=== PATIENT | female | born 1935 | race Caucasian/White ===

== ENCOUNTER 2016-07-20 17:09 | Inpatient (IN) | payer MEDICAID ==
[2016-07-20 17:11] VITALS: BMI 30.7
[2016-07-20] MEDS ORDERED: Sodium Chloride 0.9% 1,000 ML IV STA (17:43)
--- NOTE | 2016-07-20 17:44 | C.PDOC ---
History Of Present Illness 80 yr old female with PMHx of HTN and arthritis, presents to the ER accompanied by family for diarrhea 4x a day, vomiting 4x and abdominal pain for the past 4 days. Family member states the patient has been defecating on her self for the past 4 days. Reports patient was in [place] for the last 5 months, recently came back 3 weeks ago and has been sick persistently. Also notes the patient lost her vision recently and has been to see an eye doctor and next appointment is in 2 weeks. Patient has history of glaucoma and cataracts. Denies fever, chest pain, SOB or rash. Time Seen by Provider: 07/20/16 17:31 Chief Complaint (Nursing): Abdominal Pain History Per: Family (Family members) History/Exam Limitations: no limitations Onset/Duration Of Symptoms: Days (4) Current Symptoms Are (Timing): Still Present Location Of Pain/Discomfort: Diffuse Past Medical History Reviewed: Historical Data, Nursing Documentation, Vital Signs Vital Signs: Last Vital Signs Temp 98.2 F 07/21/16 00:03 Pulse 71 07/21/16 00:03 Resp 20 07/21/16 00:03 BP 165/71 H 07/21/16 00:03 Pulse Ox 98 07/21/16 00:03 - Medical History PMH: Arthritis, HTN, Peripheral Edema Family History: States: No Known Family Hx - Social History Hx Alcohol Use: No Hx Substance Use: No - Immunization History Hx Tetanus Toxoid Vaccination: No Hx Influenza Vaccination: No Hx Pneumococcal Vaccination: No Review Of Systems Except As Marked, All Systems Reviewed And Found Negative. Constitutional: Negative for: Fever Cardiovascular: Negative for: Chest Pain Respiratory: Negative for: Shortness of Breath Gastrointestinal: Positive for: Vomiting, Abdominal Pain, Diarrhea Genitourinary: Positive for: Incontinence (Bowel) Skin: Negative for: Rash Physical Exam - Physical Exam Additional Physical Exam Comments: Constitutional: No acute distress. Head: Normocephalic. Atraumatic. Eyes: PERRL. ENT: Moist mucous membranes. Neck: Supple. Cardiovascular: Regular rate. Murmur. Radial pulses 2+ bilaterally. Chest: No tenderness. Respiratory: Clear to auscultation bilaterally. GI: Soft. Diffuse tenderness. No rebound. No guarding. Back: No CVA tenderness. Musculoskeletal: No tenderness or swelling of extremities. Skin: No rash. Neurologic: Alert and oriented. No focal deficit. ED Course And Treatment - Laboratory Results Result Diagrams: 07/20/16 18:00 07/20/16 18:00 O2 Sat by Pulse Oximetry: 95 (RA) Pulse Ox Interpretation: Normal - CT Scan/US CT Abd/Pel w/o contrast Other Rad Studies (CT/US): Interpreted By Me, Read By Radiologist CT/US Interpretation: EXAM: CT Abdomen and Pelvis Without Intravenous Contrast. CLINICAL HISTORY: 80 years old, female; Pain and signs and symptoms ; Vomiting; Abdominal pain; Generalized;. Additional info: Abd pain, vomiting diarrhea. TECHNIQUE: Axial computed tomography images of the abdomen and pelvis without intravenous contrast. This. CT exam was performed using one or more of the following dose reduction techniques: automated. exposure control, adjustment of the mA and/or kV according to patient size, and/or use of iterative. reconstruction technique. Coronal and sagittal reformatted images were created and reviewed. EXAM DATE/TIME: Exam ordered 07/20/2016 6:32 PM. COMPARISON: No relevant prior studies available. FINDINGS: Lower thorax: Hypoventilatory changes are seen at both lung bases. There is a small amount of. pericardial fluid/thickening. The heart is enlarged. There is a small hiatal hernia. ABDOMEN: Liver: Unremarkable. Gallbladder and bile ducts: Unremarkable. No calcified stones. No ductal dilation. Pancreas: Unremarkable. No ductal dilation. Spleen: Unremarkable. No splenomegaly. Adrenals: Unremarkable. No mass. Kidneys and ureters: Unremarkable. No obstructing stones. No hydronephrosis. Stomach and bowel: There are scattered colonic diverticula. No obstruction. No mucosal. thickening. Appendix: No findings to suggest acute appendicitis. PELVIS: Bladder: Unremarkable. No stones. Reproductive: Unremarkable as visualized. ABDOMEN and PELVIS: Intraperitoneal space: Unremarkable. No free air. No significant fluid collection. Bones/joints : Degenerative changes are noted of the lumbar spine. There is a grade 1. spondylolisthesis at L2-3 with 4 mm of anterolisthesis of L3 with respect to L2. No acute fracture. No. dislocation. Soft tissues: There is hazy density noted within the mesenteric fat. Calcification is noted within the. subcutaneous fat of the right buttock superiorly. Vasculature: Unremarkable. No abdominal aortic aneurysm. Lymph nodes: Unremarkable. No enlarged lymph nodes. Other findings: There is anasarca. IMPRESSION: 1. No acute findings. 2. Hypoventilatory changes at the lung bases. 3. The heart is moderately enlarged and there is a small amount of paracardial fluid/thickening. 4.. Hiatal hernia. 5. Nonspecific hazy change noted within the mesenteric fat with mild anasarca. 6. Scattered colonic diverticula Medical Decision Making Medical Decision Making: PLAN: * CT - Abd & Pelvis * CXR * Lipase * CBC * Urinalysis * Zofran IVP * Sodium Chloride IV CXR: No acute disease. Patient with newly found thrombocytopenia as well as acute renal insufficiency likely from dehydration. Dr. Smith recommends Dr. Mclaughlin for admission for further evaluation. Dr. Mclaughlin accepts to his service. Disposition - Disposition Disposition: HOSPITALIZED Disposition Time: 19:27 Condition: FAIR - Clinical Impression Clinical Impression: Dehydration, Thrombocytopenia - Scribe Statement The provider has reviewed the documentation as recorded by the Cristinoibyoselin Segovia Provider Attestation: All medical record entries made by the Cristinoibyoselin were at my direction and personally dictated by me. I have reviewed the chart and agree that the record accurately reflects my personal performance of the history, physical exam, medical decision making, and the department course for this patient. I have also personally directed, reviewed, and agree with the discharge instructions and disposition.
[2016-07-20] MEDS ORDERED: Sodium Chloride 0.9% 1,000 ML ONE (18:09)
[2016-07-20 18:11] LABS: BASO % 0.5 % (0.0-2.0); EOS # 0.1 K/uL (0.0-0.7); HEMOGLOBIN 12.3 g/dL (11.0-16.0); LYMPH # 0.7 K/uL (1.0-4.3); LYMPH % 9.4 % (20.0-40.0); MEAN CORPUSCULAR HEMOGLOBIN 31.7 pg (27.0-31.0); MEAN CORPUSCULAR HGB CONC 32.7 g/dL (33.0-37.0); MEAN PLATELET VOLUME 9.1 fL (7.2-11.7); MONO # 0.8 K/uL (0.0-0.8); MONO % 10.8 % (0.0-10.0); NEUT # 5.4 K/uL (1.8-7.0); NEUT % 77.3 % (50.0-75.0); NRBC % 0.1 % (0.0-2.0); RBC 3.89 Mil/uL (3.80-5.20)
[2016-07-20 18:22] LABS: ALBUMIN 3.6 g/dL (3.5-5.0)
[2016-07-20 18:23] LABS: PLATELET COUNT 58 K/uL (130-400)
[2016-07-20 18:25] LABS: ALB/GLOB RATIO 0.9 (1.0-2.1); CALCIUM 9.3 mg/dl (8.6-10.4)
[2016-07-20 18:36] LABS: SQUAMOUS EPITHIAL < 1 /hpf (0-5); URINE BACTERIA RARE (<OCC); URINE BILIRUBIN NEGATIVE (NEGATIVE); URINE BLOOD 2+ (NEGATIVE); URINE CLARITY Clear (Clear); URINE COLOR Yellow (YELLOW); URINE GLUCOSE (UA) NORMAL (Normal); URINE LEUKOCYTE ESTERASE NEG Leu/uL (Negative); URINE NITRATE NEGATIVE (NEGATIVE); URINE PROTEIN 2+ mg/dL (NEGATIVE); URINE UROBILINOGEN NORMAL mg/dL (0.2-1.0)
[2016-07-20 19:11] LABS: EOSINOPHIL 2 % (0-4); LYMPHOCYTE 9 % (20-40); MONOCYTE 5 % (0-10); NEUTROPHIL 84 % (50-75); PLATELET ESTIMATE DECREASED (NORMAL); TOTAL CELLS COUNTED 100
[2016-07-20 19:13] LABS: ANISOCYTOSIS SLIGHT
--- NOTE | 2016-07-20 19:24 | CT ---
EXAM: CT Abdomen and Pelvis Without Intravenous Contrast CLINICAL HISTORY: 80 years old, female; Pain and signs and symptoms; Vomiting; Abdominal pain; Generalized; Additional info: Abd pain, vomiting diarrhea TECHNIQUE: Axial computed tomography images of the abdomen and pelvis without intravenous contrast. This CT exam was performed using one or more of the following dose reduction techniques: automated exposure control, adjustment of the mA and/or kV according to patient size, and/or use of iterative reconstruction technique. Coronal and sagittal reformatted images were created and reviewed. EXAM DATE/TIME: Exam ordered 07/20/2016 6:32 PM COMPARISON: No relevant prior studies available. FINDINGS: Lower thorax: Hypoventilatory changes are seen at both lung bases. There is a small amount of pericardial fluid/thickening. The heart is enlarged. There is a small hiatal hernia. ABDOMEN: Liver: Unremarkable. Gallbladder and bile ducts: Unremarkable. No calcified stones. No ductal dilation. Pancreas: Unremarkable. No ductal dilation. Spleen: Unremarkable. No splenomegaly. Adrenals: Unremarkable. No mass. Kidneys and ureters: Unremarkable. No obstructing stones. No hydronephrosis. Stomach and bowel: There are scattered colonic diverticula. No obstruction. No mucosal thickening. Appendix: No findings to suggest acute appendicitis. PELVIS: Bladder: Unremarkable. No stones. Reproductive: Unremarkable as visualized. ABDOMEN and PELVIS: Intraperitoneal space: Unremarkable. No free air. No significant fluid collection. Bones/joints: Degenerative changes are noted of the lumbar spine. There is a grade 1 spondylolisthesis at L2-3 with 4 mm of anterolisthesis of L3 with respect to L2. No acute fracture. No dislocation. Soft tissues: There is hazy density noted within the mesenteric fat. Calcification is noted within the subcutaneous fat of the right buttock superiorly. Vasculature: Unremarkable. No abdominal aortic aneurysm. Lymph nodes: Unremarkable. No enlarged lymph nodes. Other findings: There is anasarca. IMPRESSION: 1. No acute findings 2. Hypoventilatory changes at the lung bases. 3. The heart is moderately enlarged and there is a small amount of paracardial fluid/thickening. 4.. Hiatal hernia. 5. Nonspecific hazy change noted within the mesenteric fat with mild anasarca 6. Scattered colonic diverticula
[2016-07-21] MEDS ORDERED: Sodium Chloride 0.9% 1,000 ML IV SCH (08:15)
--- NOTE | 2016-07-21 10:24 | RAD ---
HISTORY: r/o PNA COMPARISON: 12/28/2013 FINDINGS: LUNGS: Patchy increased markings at the left lung base. Diffuse increased interstitial lung markings. PLEURA: As above. CARDIOVASCULAR: Mild cardiomegaly. OSSEOUS STRUCTURES: Calcific tendinopathy of the right proximal humerus. VISUALIZED UPPER ABDOMEN: Normal. OTHER FINDINGS: None. IMPRESSION: Patchy increased markings at the left lung base. Diffuse increased interstitial lung markings.
[2016-07-21] MEDS: Sodium Chloride 0.45% 1,000 ML IV SCH (11:05)
[2016-07-21 11:53] LABS: CALCIUM 8.8 mg/dl (8.6-10.4)
[2016-07-22] MEDS: Sodium Chloride 0.45% 1,000 ML IV SCH ×2 (01:01→15:01)
[2016-07-22 06:28] LABS: BASO % 0.3 % (0.0-2.0); EOS # 0.1 K/uL (0.0-0.7); HEMOGLOBIN 12.4 g/dL (11.0-16.0); LYMPH # 0.6 K/uL (1.0-4.3); LYMPH % 10.9 % (20.0-40.0); MEAN CELL VOLUME 97.1 fL (81.0-99.0); MEAN CORPUSCULAR HEMOGLOBIN 32.1 pg (27.0-31.0); MEAN CORPUSCULAR HGB CONC 33.1 g/dL (33.0-37.0); MEAN PLATELET VOLUME 9.8 fL (7.2-11.7); MONO # 0.2 K/uL (0.0-0.8); MONO % 2.9 % (0.0-10.0); NEUT % 84.9 % (50.0-75.0); RBC 3.85 Mil/uL (3.80-5.20); RED CELL DISTRIBUTION WIDTH 17.3 % (11.5-14.5); WHITE BLOOD COUNT 5.9 K/uL (4.8-10.8)
[2016-07-22 06:42] LABS: CALCIUM 8.8 mg/dl (8.6-10.4)
[2016-07-22] MEDS ORDERED: Pneumococcal 23-Valent Vaccine IM ONE (10:00)
--- NOTE | 2016-07-22 15:07 | CON ---
DATE: 07/22/2016 CHIEF COMPLAINT AND REASON FOR CONSULTATION: The patient referred by Dr. Mclaughlin for evaluation of change in mental status. The patient has been noted by the family to be more confused, not herself and has been defecating herself for the last few days. HISTORY OF PRESENT ILLNESS: This is the case of an 80-year-old female of [place] descent with a history of hypertension and arthritis. The patient was brought in by the family because the patient has been complaining of diarrhea, vomiting and abdominal pain. The patient also has been noted by the family to having increasing confusion and change in mental status. The patient has been noted to be defecating herself, not taking care of herself for the last 2 days. She also has not been eating for the last 3 or 4 days. The patient, according to the daughter was in the [place] for 5 months. She came back and ever since she has been also noted to be more confused. The patient has been complaining of loss of visual problem. Also, has a history of glaucoma in the past. The patient earlier was very agitated. She was given Ativan and now she is much calmer. She was seen by the daughter more cooperative, but still very confused. PAST PSYCHIATRIC HISTORY: Denies any. PAST MEDICAL HISTORY: History of hypertension, arthritis, edema. DRUG AND ALCOHOL HISTORY: Denies any. ALLERGIES: The patient has no known allergies. PSYCHOSOCIAL HISTORY: Born and raised in the [place]. She lives with her daughter. CURRENT MEDICATIONS: Includes patient is on prednisone, losartan and nifedipine. The patient was taking before Benadryl 25 mg twice a day, methotrexate. VITAL SIGNS: Temperature is 98.9, pulse rate 67, blood pressure is 164/92, respirations 20, oxygen sat is 98%. LABORATORY DATA: The patient is noted to be thrombocytopenic. Her last platelet was 60; the previous one was 58. H and H are 12.4/37.4. The patient' s BUN is currently 38, creatinine is 2.7. GFR, the last one is 21, lipase is 78. UA has presence of +2 for blood and presence of urine RBC. Albumin is 3.6. REVIEW OF SYSTEMS: GENERAL: The patient is sleepy, but arousable, still confused. Seen with her daughter, her daughter was crying. The patient states that she feels very weak. SKIN: No pruritus. HEENT: No headache, no dizziness. NECK: Supple. RESPIRATORY: No dyspnea. CARDIOVASCULAR: No chest pain. GASTROINTESTINAL: Has poor appetite. No abdominal pain. EXTREMITIES: The patient is seen in her room with her daughter and moving extremities. NEUROLOGIC: Alert with periods of confusion. Mental status seems to be waxing and waning. GENITOURINARY: No dysuria. MUSCULOSKELETAL: The patient did not complain of joint pains when seen today. MENTAL STATUS EXAMINATION: Elderly female who looks stated age, oriented only one or to person, not to place and time, somewhat sedated, but arousable. Mood is dysphoric. Affect is restricted. Speech is slow. Thought process: Confused off and on. Thought content: No overt paranoia or hallucinations. No suicidal or homicidal ideation. Attention and memory seem to be limited. Insight and judgment limited. Impulse control is fair at this time. IMPRESSION: Metabolic encephalopathy as well as delirium, probably secondary to dehydration. PLAN AND RECOMMENDATION: The patient seen, meds reviewed. We will keep patient off the Benadryl for now, especially as the patient is elderly. The patient was taking Benadryl every day at home and Benadryl can cause increased confusion. The patient will then have Ativan 1 mg daily p.r.n. for agitation. Continue prednisone as ordered. Continue IV rehydration. The patient may benefit from subacute rehab once medically stable. For now will just keep patient on Ativan 1 mg p.o. daily p.r.n. for agitation. We will keep patient off meds that are high in anticholinergic property especially the Benadryl, which she was taking at home, which can increase confusion, especially if the patient is medically compromised. Humberto Ashlye MD cc: [id number] TT: 07/22/2016 15:06:37 Confirmation # [id number] Dictation # [id number] pati DURON
--- NOTE | 2016-07-22 17:39 | CP.PCM.CON ---
History of Present Illness - History of Present Illness History of Present Illness: 80 yo woman recently returned from [place], admitted with abdominal pain, nausea, vomiting, diarrhea and decreased appetite. Patient denies any fever, chills. No bleeding, bruising As per family she has been confused and agitated in the hospital. She seems a little better as per son Past Patient History - Past Medical History & Family History Past Medical History?: Yes - Past Social History Smoking Status: Light Smoker < 10 Cigarettes Daily - CARDIAC Hx Hypertension: Yes - PULMONARY Hx Respiratory Disorders: No - NEUROLOGICAL Hx Neurological Disorder: No - HEENT Hx HEENT Problems: No Other/Comment: Poor vision both eyes, have eye doctor appoinment 08/04/16. - RENAL Hx Chronic Kidney Disease: No - ENDOCRINE/METABOLIC Hx Endocrine Disorders: Yes Other/Comment: THYROID NODULES - HEMATOLOGICAL/ONCOLOGICAL Hx Blood Disorders: No - INTEGUMENTARY Hx Dermatological Problems: Yes Other/Comment: h/o skin rashes - MUSCULOSKELETAL/RHEUMATOLOGICAL Hx Arthritis: Yes (B/L KNEE ARTHRITIS) - GASTROINTESTINAL Hx Gastrointestinal Disorders: No - GENITOURINARY/GYNECOLOGICAL Hx Genitourinary Disorders: No - PSYCHIATRIC Hx Substance Use: No - SURGICAL HISTORY Hx Surgeries: Yes Other/Comment: 1993 THYROID SX - ANESTHESIA Hx Anesthesia: Yes Hx Anesthesia Reactions: No Hx Malignant Hyperthermia: No Has any member of the family had a problem w/ anesthesia?: No Meds Allergies/Adverse Reactions: Allergies Allergy/AdvReac Type Severity Reaction Status Date / Time No Known Allergies Allergy Verified 12/28/13 12:04 - Medications Medications: Current Medications Folic Acid (Folic Acid) 1 mg PO DAILY [facility] Sodium Chloride (Sodium Chloride 0.45%) 1,000 mls @ 75 mls/hr IV .[id number] [facility] Last Admin: 07/22/16 15:01 Dose: Not Given Lorazepam (Ativan) 1 mg PO DAILY PRN PRN Reason: Anxiety Losartan Potassium (Cozaar) 100 mg PO DAILY [facility] Last Admin: 07/22/16 11:02 Dose: 100 mg Nifedipine (Procardia) 10 mg PO DAILY [facility] Last Admin: 07/22/16 11:02 Dose: 10 mg Prednisone (Prednisone Tab) 5 mg PO HS [facility] Last Admin: 07/21/16 21:09 Dose: 5 mg Prednisone (Prednisone Tab) 10 mg PO QAM [facility] Last Admin: 07/22/16 11:02 Dose: 10 mg Results - Vital Signs Recent Vital Signs: Last Vital Signs Temp 99.2 F 07/22/16 15:53 Pulse 67 07/22/16 16:03 Resp 20 07/22/16 15:53 BP 138/75 07/22/16 16:03 Pulse Ox 98 07/22/16 16:03 - Labs Result Diagrams: 07/22/16 06:16 07/22/16 06:16 Labs: Laboratory Results - last 24 hr 07/22/16 07/22/16 06:16 06:16 WBC 5.9 RBC 3.85 Hgb 12.4 Hct 37.4 MCV 97.1 MCH 32.1 H MCHC 33.1 RDW 17.3 H Plt Count 60 L MPV 9.8 Neut % (Auto) 84.9 H Lymph % (Auto) 10.9 L [place] % (Auto) 2.9 Eos % (Auto) 1.0 Baso % (Auto) 0.3 Neut # 5.0 Lymph # 0.6 L [place] # 0.2 Eos # 0.1 Baso # 0.0 Sodium 135 Potassium 4.0 Chloride 100 Carbon Dioxide 25 Anion Gap 14 BUN 38 H Creatinine 2.7 H Est GFR ( Amer) 21 Est GFR (Non-Af Amer) 17 Random Glucose 111 H Calcium 8.8 Assessment & Plan - Assessment and Plan (Free Text) Assessment: Thrombocytopenia, without anemia, no bleeding or coagulopathy, with increased serum creatinine and AMS, TTP must be ruled out. Other likely possibilities include dehydration with ? nutritional deficiencies, ? viral infection. Will order TSH, B12, hepatitis profiles, LDH and manual diff with smear review
--- NOTE | 2016-07-22 20:53 | CP.PCM.CON ---
History of Present Illness - History of Present Illness History of Present Illness: pt seen and examined, full consult is dictated #[id number] Past Patient History - Past Medical History & Family History Past Medical History?: Yes - Past Social History Smoking Status: Light Smoker < 10 Cigarettes Daily - CARDIAC Hx Hypertension: Yes - PULMONARY Hx Respiratory Disorders: No - NEUROLOGICAL Hx Neurological Disorder: No - HEENT Hx HEENT Problems: No Other/Comment: Poor vision both eyes, have eye doctor appoinment 08/04/16. - RENAL Hx Chronic Kidney Disease: No - ENDOCRINE/METABOLIC Hx Endocrine Disorders: Yes Other/Comment: THYROID NODULES - HEMATOLOGICAL/ONCOLOGICAL Hx Blood Disorders: No - INTEGUMENTARY Hx Dermatological Problems: Yes Other/Comment: h/o skin rashes - MUSCULOSKELETAL/RHEUMATOLOGICAL Hx Arthritis: Yes (B/L KNEE ARTHRITIS) - GASTROINTESTINAL Hx Gastrointestinal Disorders: No - GENITOURINARY/GYNECOLOGICAL Hx Genitourinary Disorders: No - PSYCHIATRIC Hx Substance Use: No - SURGICAL HISTORY Hx Surgeries: Yes Other/Comment: 1993 THYROID SX - ANESTHESIA Hx Anesthesia: Yes Hx Anesthesia Reactions: No Hx Malignant Hyperthermia: No Has any member of the family had a problem w/ anesthesia?: No Meds Allergies/Adverse Reactions: Allergies Allergy/AdvReac Type Severity Reaction Status Date / Time No Known Allergies Allergy Verified 12/28/13 12:04 - Medications Medications: Current Medications Folic Acid (Folic Acid) 1 mg PO DAILY [facility] Last Admin: 07/22/16 17:25 Dose: 1 mg Sodium Chloride (Sodium Chloride 0.45%) 1,000 mls @ 75 mls/hr IV .[id number] [facility] Last Admin: 07/22/16 15:01 Dose: Not Given Lorazepam (Ativan) 1 mg PO DAILY PRN PRN Reason: Anxiety Losartan Potassium (Cozaar) 100 mg PO DAILY [facility] Last Admin: 07/22/16 11:02 Dose: 100 mg Nifedipine (Procardia) 10 mg PO DAILY [facility] Last Admin: 07/22/16 11:02 Dose: 10 mg Prednisone (Prednisone Tab) 5 mg PO HS [facility] Last Admin: 07/21/16 21:09 Dose: 5 mg Prednisone (Prednisone Tab) 10 mg PO QAM [facility] Last Admin: 07/22/16 11:02 Dose: 10 mg Results - Vital Signs Recent Vital Signs: Last Vital Signs Temp 99.2 F 06/13/17 15:53 Pulse 67 07/22/16 16:03 Resp 20 07/22/16 15:53 BP 138/75 07/22/16 16:03 Pulse Ox 98 07/22/16 16:03 - Labs Result Diagrams: 07/22/16 06:16 07/22/16 06:16 Labs: Laboratory Results - last 24 hr 07/22/16 07/22/16 07/22/16 06:16 06:16 15:00 WBC 5.9 RBC 3.85 Hgb 12.4 Hct 37.4 MCV 97.1 MCH 32.1 H MCHC 33.1 RDW 17.3 H Plt Count 60 L MPV 9.8 Neut % (Auto) 84.9 H Lymph % (Auto) 10.9 L [place] % (Auto) 2.9 Eos % (Auto) 1.0 Baso % (Auto) 0.3 Neut # 5.0 Lymph # 0.6 L [place] # 0.2 Eos # 0.1 Baso # 0.0 Fibrinogen Sodium 135 Potassium 4.0 Chloride 100 Carbon Dioxide 25 Anion Gap 14 BUN 38 H Creatinine 2.7 H Est GFR ( Amer) 21 Est GFR (Non-Af Amer) 17 Random Glucose 111 H Calcium 8.8 Lactate Dehydrogenase Vitamin B12 TSH 3rd Generation C. difficile Ag & Toxin Negative 07/22/16 07/22/16 17:21 17:22 WBC RBC Hgb Hct MCV MCH MCHC RDW Plt Count MPV Neut % (Auto) Lymph % (Auto) [place] % (Auto) Eos % (Auto) Baso % (Auto) Neut # Lymph # [place] # Eos # Baso # Fibrinogen 303 Sodium Potassium Chloride Carbon Dioxide Anion Gap BUN Creatinine Est GFR ( Amer) Est GFR (Non-Af Amer) Random Glucose Calcium Lactate Dehydrogenase 1301 H Vitamin B12 483 TSH 3rd Generation 11.50 H C. difficile Ag & Toxin
[2016-07-22 22:22] LABS: PROTHROMBIN TIME 11.3 SECONDS (9.7-12.2)
[2016-07-23] MEDS ORDERED: Albuterol-Ipratrop 3 mg / 0.5 (3 ml) UD INH STA (04:05)
--- NOTE | 2016-07-23 04:32 | PCM.RRTMUL ---
<Ruby Donohue - Last Filed: 07/23/16 05:11> INVENTORY CONTROLLER Nurses Assessment - Situation INVENTORY CONTROLLER Responder Arrival Time:: 04:09 Location:: [address] [place] [address] Room Number:: [id number] INVENTORY CONTROLLER Reason for Call: O2 Saturation below 90% INVENTORY CONTROLLER Called By: RN - IV IV Inserted during INVENTORY CONTROLLER?: No - Respiratory Oxygen Delivery Method:: High-Flow Received Nebulizer Treatments:: Yes Was the Patient Ventilated with Bag/Mask 100% O2?: Yes Secretions Suctioned?: Yes Was the Patient Intubated?: Yes Was the Patient Placed on a Ventilator?: Yes - Ventilator Settings Mode:: PRVC Ventilator Respiratory Rate Setting:: 14 Ventilator Tidal Volume Setting:: 450 PEEP/CPAP (cm H2O):: 5 FIO2 (% Oxygen):: 100 - Diagnostic Test Ordered Chest X-Ray:: Yes CT Scan:: No - Stat Labs Ordered INVENTORY CONTROLLER Stat Labs Ordered:: ABG CPR started during INVENTORY CONTROLLER?: No - Vital Signs Pulse Rate:: 120 Respiratory Rate:: 30 Temperature:: 98.6 F Oxygen Saturation:: 78 - Time INVENTORY CONTROLLER Ended Time INVENTORY CONTROLLER Ended:: 04:55 - Recommendations 5) INVENTORY CONTROLLER Level of Care Recommendations: Transfer to ICU 6) Notifications: Attending Physician I.Reason for INVENTORY CONTROLLER - A) Acute Change in Patient: (Select all that apply): Acute change in SpO2 less - A) Initial Vital Signs: Pulse Rate: 120 Respiratory Rate: 30 Temperature: 98.6 F O2 Sat by Pulse Oximetry: 78 - B) Neurological Status (Select all that apply): Alert, Disoriented, Confused - C) Respiratory Oxygen Delivery Method: High-Flow @% (100), Intubated Oxygen Flow Rate: 100 - Constitutional Appears: In Acute Distress, Unkempt, Agitated, Confused, Chronically Ill - Head Head Exam: ATRAUMATIC, NORMAL INSPECTION, NORMOCEPHALIC - Eyes Eye Exam: Normal appearance. absent: Conjunctival injection, Scleral icterus - Respiratory Exam Respiratory Exam: Accessory Muscle Use, Rales, Rhonchi, Respiratory Distress. absent: Clear to Ausculation Bilateral - Cardiovascular Exam Cardiovascular Exam: Tachycardia, REGULAR RHYTHM, +S1, +S2 - GI/Abdominal Exam GI & Abdominal Exam: Soft, Normal Bowel Sounds - Neurological Exam Neurological Exam: Altered - Extremities Exam Extremities Exam: absent: Joint Swelling, Pedal Edema Plan - B. Assessment of Findings&Treatment Plan Acute respiratory distress -Patient intubated and on vent (14, 5, 450, 100%) -f/u CXR and ABG shock panel, routine labs, INESSA, EKG -Patient transferred to ICU and started on nitro drip, diprivan gtt, and given lasix 80mg ivp stat <Thad Hendrickson P - Last Filed: 07/30/16 10:56> Attending/Attestation - Attestation I have personally seen and examined this patient.: Yes I have fully participated in the care of the patient.: Yes I have reviewed all pertinent clinical information, including history, physical exam and plan: Yes
[2016-07-23] MEDS ORDERED: Etomidate 20 mg/10ml Inj IV ONE (04:34)
[2016-07-23] MEDS ORDERED: Propofol 10 mg/ml Inj (100 ml) IV SCH ×2 (05:15→09:00)
[2016-07-23] MEDS: Nitroglycerin 50mg in D5W 50 MG/250 ML BOTTLE IV SCH ×4 (05:15→22:30)
[2016-07-23] MEDS: Sodium Chloride 0.45% 1,000 ML IV SCH ×2 (05:48→10:10)
[2016-07-23 06:21] LABS: ABG ALLEN TEST POS; ARTERIAL BLOOD GAS HCO3 21.4 mmol/L (21-28); ARTERIAL BLOOD GAS O2 SAT 76.5 % (95-98); ARTERIAL BLOOD GAS PCO2 45 mm/Hg (35-45); ARTERIAL BLOOD GAS PH 7.31 (7.35-7.45); ARTERIAL BLOOD GAS PO2 43 mm/Hg (80-100); ARTERIAL BLOOD GAS TCO2 24.1 mmol/L (22-28)
[2016-07-23] MEDS ORDERED: MethylPREDNISolone 40 mg Vial IVP STA (07:06)
--- NOTE | 2016-07-23 07:06 | CP.PCM.CON ---
History of Present Illness - History of Present Illness History of Present Illness: Patient is 80-year-old female transferred from the floor because of the acute respiratory distress, intubated and brought into the intensive care unit. The history is unclear at this time. 80-year-old female admitted to the floor because of the diarrhea, vomiting, nausea, and the poor appetite. Recently she returned from [facility]. Patient is not able to give further information. Past medical history: Unclear. Allergy no known drug allergy Personal history unknown Review of system: Unclear from the chart, patient is currently intubated. Acute respiratory distress noted. Patient was having low dated count, received a transfusion. Patient received a blood transfusion, following that the patient developed acute respiratory distress On examination: Patient is on ventilator at this time. Unresponsive. Agitated. Sedated. Currently on nitroglycerin drip, Cole catheter is on. Chest good air entry bilateral rales noted regular heart sound abdomen soft nontender extremities no edema Chest x-ray showing evidence of bilateral diffuse infiltrate, versus pulmonary edema. ET tube in position. Currently patient is on propofol drip as well as nitroglycerin drip. 80 mg of Lasix was given, but the poor urine output noted Assessment and recommendation: 80-year-old female with a unclear past medical history admitted with the thrombocytopenia, and diarrhea. Currently developed acute respiratory failure, complicated with the pulmonary edema. Severe hypoxia noted. Not improving still. On vent. We'll continue IV Lasix, nitroglycerin drip, propofol drip. Called to the family Past Patient History - Past Medical History & Family History Past Medical History?: Yes - Past Social History Smoking Status: Light Smoker < 10 Cigarettes Daily - CARDIAC Hx Hypertension: Yes - PULMONARY Hx Respiratory Disorders: No - NEUROLOGICAL Hx Neurological Disorder: No - HEENT Hx HEENT Problems: No Other/Comment: Poor vision both eyes, have eye doctor appoinment 08/04/16. - RENAL Hx Chronic Kidney Disease: No - ENDOCRINE/METABOLIC Hx Endocrine Disorders: Yes Other/Comment: THYROID NODULES - HEMATOLOGICAL/ONCOLOGICAL Hx Blood Disorders: No - INTEGUMENTARY Hx Dermatological Problems: Yes Other/Comment: h/o skin rashes - MUSCULOSKELETAL/RHEUMATOLOGICAL Hx Arthritis: Yes (B/L KNEE ARTHRITIS) - GASTROINTESTINAL Hx Gastrointestinal Disorders: No - GENITOURINARY/GYNECOLOGICAL Hx Genitourinary Disorders: No - PSYCHIATRIC Hx Substance Use: No - SURGICAL HISTORY Hx Surgeries: Yes Other/Comment: 1992 THYROID SX - ANESTHESIA Hx Anesthesia: Yes Hx Anesthesia Reactions: No Hx Malignant Hyperthermia: No Has any member of the family had a problem w/ anesthesia?: No Meds Allergies/Adverse Reactions: Allergies Allergy/AdvReac Type Severity Reaction Status Date / Time No Known Allergies Allergy Verified 12/28/13 12:04 - Medications Medications: Current Medications Folic Acid (Folic Acid) 1 mg PO DAILY [facility] Last Admin: 07/22/16 17:25 Dose: 1 mg Sodium Chloride (Sodium Chloride 0.45%) 1,000 mls @ 75 mls/hr IV .[id number] [facility] Last Admin: 07/23/16 05:48 Dose: Not Given Nitroglycerin/Dextrose (Nitroglycerin 50 Mg/250 Ml D5w) 50 mg in 250 mls @ 1.5 mls/hr IV .Q24H JESSI; 5 MCG/MIN PRN Reason: Protocol Lorazepam (Ativan) 1 mg PO DAILY PRN PRN Reason: Anxiety Losartan Potassium (Cozaar) 100 mg PO DAILY [facility] Last Admin: 07/22/16 11:02 Dose: 100 mg Nifedipine (Procardia) 10 mg PO DAILY [facility] Last Admin: 07/22/16 11:02 Dose: 10 mg Prednisone (Prednisone Tab) 5 mg PO HS [facility] Last Admin: 07/22/16 21:56 Dose: 5 mg Prednisone (Prednisone Tab) 10 mg PO QAM [facility] Last Admin: 07/22/16 11:02 Dose: 10 mg Propofol (Diprivan) 100 mg IV TITR [facility] Results - Vital Signs Recent Vital Signs: Last Vital Signs Temp 98.6 F 07/23/16 05:13 Pulse 120 H 07/23/16 05:13 Resp 30 H 07/23/16 05:13 BP 129/102 H 07/23/16 04:56 Pulse Ox 98 07/23/16 03:39 - Labs Result Diagrams: 07/22/16 06:16 07/22/16 06:16 Labs: Laboratory Results - last 24 hr 07/22/16 07/22/16 07/22/16 15:00 17:21 17:22 PT INR APTT Fibrinogen 303 Puncture Site pCO2 pO2 HCO3 ABG pH ABG Total CO2 ABG O2 Saturation ABG Base Excess Braxton Test ABG Potassium A-a O2 Difference Respiratory Index Sodium Chloride Glucose Lactate Mechanical Rate FiO2 Tidal Volume PEEP Crit Value Called To Crit Value Called By Crit Value Read Back Blood Gas Notified Time Lactate Dehydrogenase 1301 H Vitamin B12 483 TSH 3rd Generation 11.50 H Arterial Blood Potassium C. difficile Ag & Toxin Negative Blood Type Antibody Screen 07/22/16 07/22/16 07/23/16 20:15 22:11 06:14 PT 11.3 INR 1.0 APTT 26 Fibrinogen Puncture Site R bra pCO2 45 pO2 43 L* HCO3 21.4 ABG pH 7.31 L ABG Total CO2 24.1 ABG O2 Saturation 76.5 L ABG Base Excess -3.7 L Braxton Test Pos ABG Potassium 4.2 A-a O2 Difference 614.0 Respiratory Index 14.3 Sodium 138.0 Chloride 104.0 Glucose 205 H Lactate 3.4 H Mechanical Rate 20 FiO2 100.0 Tidal Volume 450 PEEP 8 Crit Value Called To Dr chavez Crit Value Called By Deirdre parks Crit Value Read Back Y Blood Gas Notified Time 622 Lactate Dehydrogenase Vitamin B12 TSH 3rd Generation Arterial Blood Potassium 4.2 C. difficile Ag & Toxin Blood Type O POSITIVE Antibody Screen Negative
[2016-07-23 07:09] LABS: BASO % 0.4 % (0.0-2.0); EOS % 0.4 % (0.0-4.0); HEMOGLOBIN 13.1 g/dL (11.0-16.0); LYMPH # 1.2 K/uL (1.0-4.3); MEAN CORPUSCULAR HEMOGLOBIN 31.9 pg (27.0-31.0); MEAN CORPUSCULAR HGB CONC 32.1 g/dL (33.0-37.0); MEAN PLATELET VOLUME 11.3 fL (7.2-11.7); MONO # 0.2 K/uL (0.0-0.8); MONO % 2.1 % (0.0-10.0); NEUT # 7.7 K/uL (1.8-7.0); NEUT % 84.1 % (50.0-75.0); NRBC % 0.4 % (0.0-2.0); RBC 4.12 Mil/uL (3.80-5.20); RED CELL DISTRIBUTION WIDTH 17.8 % (11.5-14.5)
[2016-07-23 07:12] LABS: MEAN CELL VOLUME 99.3 fL (81.0-99.0); WHITE BLOOD COUNT 9.2 K/uL (4.8-10.8)
[2016-07-23 07:15] LABS: ALBUMIN 3.6 g/dL (3.5-5.0)
[2016-07-23] MEDS ORDERED: Furosemide 100 MG in Dextrose 5% In Water 90 ML IVP SCH (07:15)
[2016-07-23 07:19] LABS: CALCIUM 8.6 mg/dl (8.6-10.4); MAGNESIUM 1.9 mg/dL (1.6-2.3)
--- NOTE | 2016-07-23 07:37 | CON ---
DATE: 07/22/2016 The patient is located in room 359, bed B. REQUESTING PHYSICIAN: Dr. Anthony Mclaughlin. REASON FOR RENAL CONSULTATION: Increased BUN and creatinine and for further evaluation. HISTORY OF PRESENT ILLNESS: The patient is an 80-year-old elderly female from [facility] who recently came to [place] after staying [place] in [facility]. The patient was silvio t in by the family on 07/20/2016 with chief complaints of decreased p.o. intake and weakness and naus ea, vomiting for about 3 days. The patient was also found to have decreased mental status from her b aseline. The patient was alert, awake, oriented x 3 as per the family at bedside report. The patien t is arousable, not in acute distress, oriented x 2 at this time. Denies any chest pain, palpitation . Denies any shortness of breath. Denies any swelling of the legs. As per the patient's family, yonatan wyatt had diffuse skin rash when she was in [facility]. PAST MEDICAL HISTORY: Significant for hypertension for a few years. PAST SURGICAL HISTORY: Thyroid surgery for possible goiter, and also left eye cataract surgery. ALLERGIES: No known drug allergies. SOCIAL HISTORY: Ex-smoker, 20 years ago. No alcohol, no drug abuse. PERSONAL HISTORY: She is single and she has 3 children. FAMILY HISTORY: Not significant. CURRENT MEDICATIONS: Include as follows: Ativan 1 mg p.o. daily, Cozaar 100 mg p.o. daily, folic ac id 1 mg daily, prednisone 10 mg p.o. q.a.m., Procardia 10 mg p.o. daily, IV fluids half normal saline at 75 mL per hour. REVIEW OF SYSTEMS: Significant for nausea, vomiting and diarrhea for 3 days prior to the admission, and generalized weakness and decreased p.o. intake and decreased mental status from baseline which wa s normal and the patient was able to manage routinely, now with decreased mental status. All other r eview of systems are reviewed and are negative. PHYSICAL EXAMINATION: VITAL SIGNS: Blood pressure 138/75, pulse 67, respiration 20, temperature 99.2, saturation 98%. Hei ght 5 feet 4 inches and weight is 160 pounds, BMI 27.5. GENERAL: The patient is an 80-year-old elderly female, moderately built, moderately nourish ed, not in acute distress. HEENT: Pupils normal, reactive to light and accommodation. Conjunctivae are pink. Sclerae anicteri c. Tongue is slightly dry. NECK: Trachea is midline. No thyroid enlargement. LUNGS: Symmetric on both sides. Bilateral breath sounds present. No crackles. No tenderness of th e chest wall. CARDIOVASCULAR: [place] at the fifth intercostal space midclavicular line. S1 and S2 audible. No murm ur, no gallop. ABDOMEN: Normal in appearance, soft, tympanic. No guarding, no rigidity. No hepatosplenomegaly. CENTRAL NERVOUS SYSTEM: The patient is awake, oriented x 2. Sensorimotor system is grossly within n ormal limits. Cranial nerves II through XII grossly intact. EXTREMITIES: No cyanosis, no clubbing, no edema. LABORATORY DATA: Include as follows: As of 07/20/2016. WBC 7, hemoglobin 12.3, hematocrit is 37.8, platelets 58. Neutrophils 84, lymphs 9, monos 5, eosinophils 2. As of 07/22/2016: WBC 5.9, hemogl obin 12.4, hematocrit is 37.4, platelets 60. Other laboratory data as of 07/20/2016. Sodium 140, potassium 4.4, chloride 103, CO2 30, BUN 43, cre atinine 2.7, glucose 142, calcium 9.3. Total bili 1.2, AST 64, ALT 55, alkaline phosphatase is 83, t otal protein 7.4, albumin is 3.6. Lipase is 78. Urinalysis: Yellow, clear, pH 5, specific gravity 1.017, protein 2+, glucose normal, ketones negative, blood 2+, nitrites negative, bili negative, urob ilinogen normal, leukocyte esterase negative, WBC 1, RBC 8, and bacteria is rare. Stool for C. diff toxin is negative as of 07/22/2016, and B12 is 483 and TSH is 11.5 and the LDH is 1301. As of 07/21/2016, BUN/creatinine are 23/2.8. As of 07/22/2016: BUN/creatinine 38/2.7, calcium 8.8, sodium 135, potassium is 4, chloride 100, CO2 25, BUN 38, creatinine 2.7. As of 07/22/2016, PT is 11. 3 and PTT 26. Fibrinogen is now 303. Chest x-ray as of 07/20/2016: Patchy increased marking at the left lung base, diffuse increased inte rstitial lung markings. CT of the abdomen and pelvis as of 07/20/2016. Impression: No acute findin gs and hyperventilation changes in the lung bases and the heart is moderately enlarged. There is a s mall amount of pericardial fluid and thickening, hiatal hernia, nonspecific hazy changes noted within the mesenteric side with mild anasarca, scattered colonic diverticula. SUMMARY: The patient is an 80-year-old elderly female with a past medical history significa nt for hypertension who was admitted with nausea, vomiting and diarrhea for 3 days prior to the admis cristian and also decreased oral intake and poor appetite and questionable altered mental status from her baseline, increased BUN and creatinine and proteinuria, microscopic hematuria and also low platelets and status post a diffuse skin rash. 1. Renal failure, most likely chronic kidney disease. Cannot rule out acute on chronic kidney disea se. Rule out hypertensive nephrosclerosis. 2. Thrombocytopenia, etiology is not clear. Rule out thrombotic thrombocytopenic purpura. Follow u p with hematology for further evaluation and for further reviewing off peripheral smear for any schis tocytes. PLAN: Will check ultrasound of the kidneys for size and also check stool for cultures and urine lyte s and osmolality and urine creatinine. Continue IV fluids, half normal saline at 70 mL per hour. Al so will check RADHA, C3, C4, and ANCA. Will follow with you. Thank you for allowing me to participate in your patient's care. Horacio Graham MD cc: [id number] TT: 07/23/2016 07:37:13 Confirmation # [id number] Dictation # [id number] mn
[2016-07-23] MEDS ORDERED: Magnesium Sulfate 1 gm in D5W 1 GM/100 ML BAG IVPB ONE (07:56)
[2016-07-23] MEDS: Albuterol-Ipratrop 3 mg / 0.5 (3 ml) UD INH SCH ×3 (08:03→19:51)
[2016-07-23 08:22] LABS: CK-MB 7.13 ng/mL (0.0-3.38)
[2016-07-23] MEDS: Propofol 10 mg/ml 1,000 MG/100 ML VIAL IV PRN ×3 (09:00→21:00)
[2016-07-23 09:05] LABS: OSMOLALITY,URINE 232 mosm/kg (300-1000)
--- NOTE | 2016-07-23 10:24 | RAD ---
Chest x-ray single frontal view History: Pulmonary edema. Comparison: 07/23/2016 Findings: Lines and tubes in stable position. Biapical pleural thickening with upper lobe granulomatous changes. Moderate to severe venous congestion. Superimposed confluent airspace opacifications throughout the right lung and left hilar region. Mild cardiomegaly. Calcification at the aortic knob. Degenerative changes the spine and shoulders. Impression: Moderate to severe venous congestion. Superimposed confluent airspace opacifications throughout the right lung and left hilar region. Mild cardiomegaly.
--- NOTE | 2016-07-23 10:28 | RAD ---
HISTORY: ams low O2 COMPARISON: Comparison chest dated 07/20/2016 FINDINGS: LUNGS: In situ ETT, the tip of which lies approximately 5.7 cm above [place]. NGT is present, the tip of which is not seen with certainty however distal aspect appears to lie just inferior to the EG junction. Repeat chest x-ray centered at the level of the hemidiaphragms could be performed to assess exact location of the NGT tip. Diffuse bilateral airspace disease with more dense opacity in the right mid to lower lung field. This could represent pneumonia and/or asymmetric pulmonary edema/CHF. . PLEURA: No significant pleural effusion identified, no pneumothorax apparent. CARDIOVASCULAR: Heart appears upper borderline/mildly enlarged. OSSEOUS STRUCTURES: No significant abnormalities. VISUALIZED UPPER ABDOMEN: Normal. OTHER FINDINGS: None. IMPRESSION: In situ ETT, the tip of which lies approximately 5.7 cm above [place]. NGT is present, the tip of which is not seen with certainty however distal aspect appears to lie just inferior to the EG junction. Repeat chest x-ray centered at the level of the hemidiaphragms could be performed to assess exact location of the NGT tip. Diffuse bilateral airspace disease with more dense opacity in the right mid to lower lung field. This could represent pneumonia and/or asymmetric pulmonary edema/CHF.
--- NOTE | 2016-07-23 11:46 | PCM.PROC ---
Procedures Attestation:: I certify that I have explained the specified Operation(s) or Procedure(s), risks, benefits and reasonable alternatives to the Patient and/or other person responsible. The opportunity was given to ask questions and all questions answered - Central Line Placement Right Internal Jugular Triple Lumen Catheter Aseptic technique was employed throughout the procedure: Hand Hygiene done prior to procedure, Full sterile barriers (mask, hair cover, sterile gown, sterile gloves), Full body sterile drape, Chloraprep Antiseptic: 30 second prep for IJ or SC sites CVP Time Out Performed: Yes Pt. Placed on Pulse Ox Monitor: Yes Central Line Prep: Chlorhexidine-Alcohol Combination Local Anesthesia Used: Lidocaine 1% Amount of Anesthesia Used (mls): 5 Ultrasound Used for Placement: Yes Central Line Lumen Inserted: triple Central Line Length: 20 cm Post Procedure: Sutured in Place, Good Blood Return, All Ports Aspirated, Flushed, Capped, Sterile Dressing Applied Secured by: Suture Post procedure dressing: Chlorhexidine disc (Biopatch) Post Procedure X-Ray: Yes Patient Tolerated Procedure: Well Immediate Complications: None Right Femoral Hemodialysis Access Aseptic technique was employed throughout the procedure: Hand Hygiene done prior to procedure, Full sterile barriers (mask, hair cover, sterile gown, sterile gloves), Full body sterile drape, Chloraprep Antiseptic: 2 minute prep for Femoral CVP Time Out Performed: Yes Pt. Placed on Pulse Ox Monitor: Yes Central Line Prep: Chlorhexidine-Alcohol Combination Local Anesthesia Used: Lidocaine 1% Amount of Anesthesia Used (mls): 5 Ultrasound Used for Placement: No Central Line Lumen Inserted: double Central Line Length: 20 cm Post Procedure: Sutured in Place, Good Blood Return, All Ports Aspirated, Flushed, Capped, Sterile Dressing Applied Secured by: Suture Post procedure dressing: Chlorhexidine disc (Biopatch) Post Procedure X-Ray: No Patient Tolerated Procedure: Well Immediate Complications: None
--- NOTE | 2016-07-23 12:22 | CP.PCM.PN ---
Subjective - Date & Time of Evaluation Date of Evaluation: 07/23/16 Time of Evaluation: 08:45 - Subjective Subjective: Pt seen w/ Dr Taveras during rounds Pt received platelet transfusion and went into pulmonary edema and sevefre hypoxia requiring intubation Presently off pressors and bp is being controlled w/ Tridil BUN/creat is increasing Objective - Vital Signs/Intake and Output Vital Signs (last 24 hours): Temp Pulse Resp BP Pulse Ox 98.0 F 79 20 152/102 H 97 07/23/16 08:00 07/23/16 11:08 07/23/16 11:08 07/23/16 11:08 07/23/16 11:08 Intake and Output: 07/23/16 07/23/16 06:59 18:59 Intake Total 720 760 Output Total 285 Balance 720 475 - Medications Medications: Current Medications Albuterol/Ipratropium (Duoneb 3 Mg/0.5 Mg (3 Ml) Ud) 3 ml INH RQ6 JESSI Last Admin: 07/23/16 08:03 Dose: 3 ml Dexamethasone (Decadron Inj) 4 mg IV Q8 JESSI Folic Acid (Folic Acid) 1 mg PO DAILY [facility] Last Admin: 07/22/16 17:25 Dose: 1 mg Sodium Chloride (Sodium Chloride 0.45%) 1,000 mls @ 75 mls/hr IV .[id number] [facility]I Last Admin: 07/23/16 10:10 Dose: 75 mls/hr Nitroglycerin/Dextrose (Nitroglycerin 50 Mg/250 Ml D5w) 50 mg in 250 mls @ 1.5 mls/hr IV .Q24H JESSI; 5 MCG/MIN PRN Reason: Protocol Last Admin: 07/23/16 11:08 Dose: 150 mcg/min, 45 mls/hr Furosemide 100 mg/ Dextrose 100 mls @ 5 mls/hr IVP .Q20H JESSI; 5 MG/HR PRN Reason: Protocol Last Admin: 07/23/16 10:15 Dose: 5 mls/hr Propofol (Diprivan) 1,000 mg in 100 mls @ 20.727 mls/hr IV .Q4H50M PRN; Protocol; 47.6 MCG/KG/MIN PRN Reason: TITRATE PER MD ORDER Last Admin: 07/23/16 09:00 Dose: 47.6 mcg/kg/min, 20.727 mls/hr Lorazepam (Ativan) 1 mg PO DAILY PRN PRN Reason: Anxiety Losartan Potassium (Cozaar) 100 mg PO DAILY [facility] Last Admin: 07/22/16 11:02 Dose: 100 mg Nifedipine (Procardia) 10 mg PO DAILY [facility] Last Admin: 07/22/16 11:02 Dose: 10 mg - Labs Labs: 07/23/16 07:04 07/23/16 07:04 PT 11.3 SECONDS (9.7-12.2) 07/22/16 22:11 INR 1.0 07/22/16 22:11 APTT 26 SECONDS (21-34) 07/22/16 22:11 - Constitutional Appears: Toxic - Head Exam Additional comments: slightly jaundiced - Eye Exam Eye Exam: absent: Periorbital tenderness - ENT Exam ENT Exam: Mucous Membranes Moist - Neck Exam Neck Exam: Full ROM - Respiratory Exam Respiratory Exam: Rhonchi - Cardiovascular Exam Cardiovascular Exam: REGULAR RHYTHM - GI/Abdominal Exam GI & Abdominal Exam: Soft. absent: Tenderness - Extremities Exam Extremities Exam: Pedal Edema. absent: Calf Tenderness Assessment and Plan - Assessment and Plan (Free Text) Assessment: Acute renal failure Respiratory failure Acute pulmonary edema Accelerated HTN Thrombocytopenia - r/oTTP Elevated Trops prob 2ndary to ARF Plan: Vent management by auto technician Renal f/u and heme follow up Prognosis poor
--- NOTE | 2016-07-23 12:29 | RAD ---
Chest x-ray single frontal view History: Triple-lumen catheter placement. Comparison: 07/23/2016 Findings: Right triple lumen catheter extending in to proximal right SVC. No evidence of postprocedure pneumothorax. Other lines and tubes stable position. Persistent consolidative changes throughout the right lung as well as the left infrahilar region. Bibasilar breast and nipple shadows. Diffuse increased interstitial lung markings. Biapical pleural thickening with upper lobe granulomatous changes. Nodular density at the left lung base. Degenerative changes in the spine and shoulders. Heart size within normal limits. Calcific tendinopathy of the right proximal humerus. Impression: Right triple lumen catheter extending in to proximal right SVC. No evidence of postprocedure pneumothorax. Other lines and tubes stable position. Persistent consolidative changes throughout the right lung as well as the left infrahilar region.
--- NOTE | 2016-07-23 12:36 | CP.PCM.HP ---
History of Present Illness - History of Present Illness History of Present Illness: cc: diarrhea vague abdominal pain 80 yr old female with PMHx of HTN and arthritis, presents to the ER accompanied by family for diarrhea 4x a day, vomiting 4x and abdominal pain for the past 4 days. Family member states the patient has been defecating on her self for the past 4 days. Reports patient was in [facility] [place] for the last 5 months, recently came back 3 weeks ago and has been sick persistently. Also notes the patient lost her vision recently and has been to see an eye doctor and next appointment is in 2 weeks. Patient has history of glaucoma and cataracts. Denies fever, chest pain, SOB or rash Present on Admission - Present on Admission Any Indicators Present on Admission: No Review of Systems - Review of Systems Systems not reviewed;Unavailable: Dementia - Constitutional Constitutional: Malaise Additional comments: altered mental status - EENT Eyes: Blurred Vision Nose/Mouth/Throat: Dry Mouth. absent: Epistaxis, Nasal Congestion, Nasal Discharge - Cardiovascular Cardiovascular: absent: Chest Pain, Dyspnea - Gastrointestinal Gastrointestinal: Abdominal Pain, Diarrhea - Integumentary Integumentary: Dry Skin - Neurological Neurological: Confusion Past Patient History - Past Medical History & Family History Past Medical History?: Yes - Past Social History Smoking Status: Light Smoker < 10 Cigarettes Daily - CARDIAC Hx Hypertension: Yes - PULMONARY Hx Respiratory Disorders: No - NEUROLOGICAL Hx Neurological Disorder: No - HEENT Hx HEENT Problems: No Other/Comment: Poor vision both eyes, have eye doctor appoinment 08/04/16. - RENAL Hx Chronic Kidney Disease: No - ENDOCRINE/METABOLIC Hx Endocrine Disorders: Yes Other/Comment: THYROID NODULES - HEMATOLOGICAL/ONCOLOGICAL Hx Blood Disorders: No - INTEGUMENTARY Hx Dermatological Problems: Yes Other/Comment: h/o skin rashes - MUSCULOSKELETAL/RHEUMATOLOGICAL Hx Arthritis: Yes (B/L KNEE ARTHRITIS) - GASTROINTESTINAL Hx Gastrointestinal Disorders: No - GENITOURINARY/GYNECOLOGICAL Hx Genitourinary Disorders: No - PSYCHIATRIC Hx Substance Use: No - SURGICAL HISTORY Hx Surgeries: Yes Other/Comment: 1993 THYROID SX - ANESTHESIA Hx Anesthesia: Yes Hx Anesthesia Reactions: No Hx Malignant Hyperthermia: No Has any member of the family had a problem w/ anesthesia?: No Meds Allergies/Adverse Reactions: Allergies Allergy/AdvReac Type Severity Reaction Status Date / Time No Known Allergies Allergy Verified 12/28/13 12:04 Physical Exam - Constitutional Appears: Non-toxic, Chronically Ill - Head Exam Head Exam: NORMAL INSPECTION - Eye Exam Eye Exam: absent: Scleral icterus - ENT Exam ENT Exam: Mucous Membranes Moist - Neck Exam Neck exam: Positive for: Full Rom. Negative for: Lymphadenopathy - Respiratory Exam Respiratory Exam: Decreased Breath Sounds - Cardiovascular Exam Cardiovascular Exam: REGULAR RHYTHM - GI/Abdominal Exam GI & Abdominal Exam: Soft. absent: Tenderness - Extremities Exam Extremities exam: Negative for: calf tenderness, pedal edema - Neurological Exam Neurological exam: Altered Results - Vital Signs Recent Vital Signs: Last Vital Signs Temp 98.0 F 07/23/16 08:00 Pulse 79 07/23/16 11:08 Resp 20 07/23/16 11:08 BP 152/102 H 07/23/16 11:08 Pulse Ox 97 07/23/16 11:08 - Labs Result Diagrams: 07/23/16 07:04 07/23/16 07:04 Labs: Laboratory Results - last 24 hr 07/22/16 07/22/16 07/22/16 07:51 15:00 17:21 WBC RBC Hgb Hct MCV MCH MCHC RDW Plt Count MPV Neut % (Auto) Lymph % (Auto) [place] % (Auto) Eos % (Auto) Baso % (Auto) Neut # Lymph # [place] # Eos # Baso # Retic Count PT INR APTT Fibrinogen 303 Puncture Site pCO2 pO2 HCO3 ABG pH ABG Total CO2 ABG O2 Saturation ABG Base Excess Braxton Test ABG Potassium A-a O2 Difference Respiratory Index Sodium Chloride Glucose Lactate Mechanical Rate FiO2 Tidal Volume PEEP Crit Value Called To Crit Value Called By Crit Value Read Back Blood Gas Notified Time Potassium Carbon Dioxide Anion Gap BUN Creatinine Est GFR ( Amer) Est GFR (Non-Af Amer) Random Glucose Calcium Phosphorus Magnesium Total Bilirubin AST ALT Alkaline Phosphatase Lactate Dehydrogenase Total Creatine Kinase CK-MB (Mass) Troponin I, Quant Total Protein Albumin Globulin Albumin/Globulin Ratio Vitamin B12 TSH 3rd Generation Arterial Blood Potassium Urine Osmolality 232 L Ur Random Sodium 78 C. difficile Ag & Toxin Negative Blood Type Antibody Screen 07/22/16 07/22/16 07/22/16 17:22 20:15 22:11 WBC RBC Hgb Hct MCV MCH MCHC RDW Plt Count MPV Neut % (Auto) Lymph % (Auto) [place] % (Auto) Eos % (Auto) Baso % (Auto) Neut # Lymph # [place] # Eos # Baso # Retic Count PT 11.3 INR 1.0 APTT 26 Fibrinogen Puncture Site pCO2 pO2 HCO3 ABG pH ABG Total CO2 ABG O2 Saturation ABG Base Excess Braxton Test ABG Potassium A-a O2 Difference Respiratory Index Sodium Chloride Glucose Lactate Mechanical Rate FiO2 Tidal Volume PEEP Crit Value Called To Crit Value Called By Crit Value Read Back Blood Gas Notified Time Potassium Carbon Dioxide Anion Gap BUN Creatinine Est GFR ( Amer) Est GFR (Non-Af Amer) Random Glucose Calcium Phosphorus Magnesium Total Bilirubin AST ALT Alkaline Phosphatase Lactate Dehydrogenase 1301 H Total Creatine Kinase CK-MB (Mass) Troponin I, Quant Total Protein Albumin Globulin Albumin/Globulin Ratio Vitamin B12 483 TSH 3rd Generation 11.50 H Arterial Blood Potassium Urine Osmolality Ur Random Sodium C. difficile Ag & Toxin Blood Type O POSITIVE Antibody Screen Negative 07/23/16 07/23/16 07/23/16 06:14 07:04 07:04 WBC 9.2 D RBC 4.12 Hgb 13.1 Hct 40.9 MCV 99.3 H D MCH 31.9 H MCHC 32.1 L RDW 17.8 H Plt Count 93 L D MPV 11.3 Neut % (Auto) 84.1 H Lymph % (Auto) 13.0 L [place] % (Auto) 2.1 Eos % (Auto) 0.4 Baso % (Auto) 0.4 Neut # 7.7 H Lymph # 1.2 [place] # 0.2 Eos # 0.0 Baso # 0.0 Retic Count 1.3 PT INR APTT Fibrinogen Puncture Site R bra pCO2 45 pO2 43 L* HCO3 21.4 ABG pH 7.31 L ABG Total CO2 24.1 ABG O2 Saturation 76.5 L ABG Base Excess -3.7 L Braxton Test Pos ABG Potassium 4.2 A-a O2 Difference 614.0 Respiratory Index 14.3 Sodium 138.0 Chloride 104.0 Glucose 205 H Lactate 3.4 H Mechanical Rate 20 FiO2 100.0 Tidal Volume 450 PEEP 8 Crit Value Called To Dr chavez Crit Value Called By Deirdre parks Crit Value Read Back Y Blood Gas Notified Time 622 Potassium Carbon Dioxide Anion Gap BUN Creatinine Est GFR ( Amer) Est GFR (Non-Af Amer) Random Glucose Calcium Phosphorus Magnesium Total Bilirubin AST ALT Alkaline Phosphatase Lactate Dehydrogenase Total Creatine Kinase CK-MB (Mass) Troponin I, Quant Total Protein Albumin Globulin Albumin/Globulin Ratio Vitamin B12 TSH 3rd Generation Arterial Blood Potassium 4.2 Urine Osmolality Ur Random Sodium C. difficile Ag & Toxin Blood Type Antibody Screen 07/23/16 07:04 WBC RBC Hgb Hct MCV MCH MCHC RDW Plt Count MPV Neut % (Auto) Lymph % (Auto) [place] % (Auto) Eos % (Auto) Baso % (Auto) Neut # Lymph # [place] # Eos # Baso # Retic Count PT INR APTT Fibrinogen Puncture Site pCO2 pO2 HCO3 ABG pH ABG Total CO2 ABG O2 Saturation ABG Base Excess Braxton Test ABG Potassium A-a O2 Difference Respiratory Index Sodium 135 Chloride 101 Glucose Lactate Mechanical Rate FiO2 Tidal Volume PEEP Crit Value Called To Crit Value Called By Crit Value Read Back Blood Gas Notified Time Potassium 4.4 Carbon Dioxide 20 L Anion Gap 18 BUN 37 H Creatinine 3.0 H Est GFR ( Amer) 18 Est GFR (Non-Af Amer) 15 Random Glucose 202 H Calcium 8.6 Phosphorus 6.0 H Magnesium 1.9 Total Bilirubin 1.7 H AST 82 H D ALT 50 Alkaline Phosphatase 78 Lactate Dehydrogenase Total Creatine Kinase 120 CK-MB (Mass) 7.13 H Troponin I, Quant 0.4480 H* Total Protein 7.2 Albumin 3.6 Globulin 3.6 Albumin/Globulin Ratio 1.0 Vitamin B12 TSH 3rd Generation Arterial Blood Potassium Urine Osmolality Ur Random Sodium C. difficile Ag & Toxin Blood Type Antibody Screen Assessment & Plan - Assessment and Plan (Free Text) Assessment: Dehydration Thrombocytopenia Abdominal pain w/ diarrhea HTN Plan: hydration Heme/ Renal consult Psyche consult
--- NOTE | 2016-07-23 12:44 | CP.PCM.PN ---
Subjective - Date & Time of Evaluation Date of Evaluation: 07/23/16 Time of Evaluation: 12:30 - Subjective Subjective: pt seen and examined,follow up consult is dictated #[id number] 1. renal failure, nancy vs nancy on ckd-3 r/o htn nephrosclerosis, r/o TMA sec to possible TTP 2. acute resp. failure 3. Possible TTP 4. NSTEMI 5. cardiomyopathy case d/w dr. pineda and Dr. arreguin will give FFP 2 units q6-8 hrs as platelets are improving with FFP as per applications coordinator pictutr with c/w TTP , increase histiocytes and elevated LDH, no anemia echo prelim report EF about 10 % , with elevated troponins Objective - Vital Signs/Intake and Output Vital Signs (last 24 hours): Temp Pulse Resp BP Pulse Ox 98.0 F 79 20 152/102 H 97 07/23/16 08:00 07/23/16 11:08 07/23/16 11:08 07/23/16 11:08 07/23/16 11:08 Intake and Output: 07/23/16 07/23/16 06:59 18:59 Intake Total 720 760 Output Total 285 Balance 720 475 - Medications Medications: Current Medications Albuterol/Ipratropium (Duoneb 3 Mg/0.5 Mg (3 Ml) Ud) 3 ml INH RQ6 [facility] Last Admin: 07/23/16 08:03 Dose: 3 ml Dexamethasone (Decadron Inj) 4 mg IV Q8 [facility] Folic Acid (Folic Acid) 1 mg PO DAILY [facility] Last Admin: 07/22/16 17:25 Dose: 1 mg Sodium Chloride (Sodium Chloride 0.45%) 1,000 mls @ 75 mls/hr IV .[id number] [facility] Last Admin: 07/23/16 10:10 Dose: 75 mls/hr Nitroglycerin/Dextrose (Nitroglycerin 50 Mg/250 Ml D5w) 50 mg in 250 mls @ 1.5 mls/hr IV .Q24H [facility]ESSI; 5 MCG/MIN PRN Reason: Protocol Last Admin: 07/23/16 11:08 Dose: 150 mcg/min, 45 mls/hr Furosemide 100 mg/ Dextrose 100 mls @ 5 mls/hr IVP .Q20H JESSI; 5 MG/HR PRN Reason: Protocol Last Admin: 06/14/17 10:15 Dose: 5 mls/hr Propofol (Diprivan) 1,000 mg in 100 mls @ 20.727 mls/hr IV .Q4H50M PRN; Protocol; 47.6 MCG/KG/MIN PRN Reason: TITRATE PER MD ORDER Last Admin: 07/23/16 09:00 Dose: 47.6 mcg/kg/min, 20.727 mls/hr Piperacillin Sod/Tazobactam Sod (Zosyn 2.25 Gm Iv Premix) 2.25 gm in 50 mls @ 100 mls/hr IVPB Q6H [facility] Lorazepam (Ativan) 1 mg PO DAILY PRN PRN Reason: Anxiety Losartan Potassium (Cozaar) 100 mg PO DAILY [facility] Last Admin: 07/22/16 11:02 Dose: 100 mg Nifedipine (Procardia) 10 mg PO DAILY [facility] Last Admin: 07/22/16 11:02 Dose: 10 mg - Labs Labs: 07/23/16 07:04 07/23/16 07:04 PT 11.3 SECONDS (9.7-12.2) 07/22/16 22:11 INR 1.0 07/22/16 22:11 APTT 26 SECONDS (21-34) 07/22/16 22:11
[2016-07-23] MEDS: Piperacill/Tazo 2.25gm in Dex 2.25 GM/50 ML BAG IVPB SCH ×2 (13:02→18:07)
[2016-07-23] MEDS: Dexamethasone 4 mg/1 ml IV SCH ×2 (13:29→22:07)
[2016-07-23 13:33] LABS: ARTERIAL BLOOD GAS HCO3 26.6 mmol/L (21-28); ARTERIAL BLOOD GAS HEMOGLOBIN 11.9 g/dL (11.7-17.4); ARTERIAL BLOOD GAS O2 SAT 100.1 % (95-98); ARTERIAL BLOOD GAS PCO2 32 mm/Hg (35-45); ARTERIAL BLOOD GAS PO2 167 mm/Hg (80-100)
--- NOTE | 2016-07-23 14:52 | US ---
PROCEDURE: Ultrasound of the Kidneys HISTORY: Hypertension and chronic renal disease, for kidney size COMPARISON: None available. TECHNIQUE: Sonogram of the kidneys. FINDINGS: RIGHT KIDNEY: Measures: 8.86 cm. Normal in size, contour and echogenicity. No stone, solid mass lesion or hydronephrosis visualized. LEFT KIDNEY: Measures: 8.87 cm. Normal in size, contour and echogenicity. No stone, solid mass lesion or hydronephrosis visualized. OTHER FINDINGS: None. IMPRESSION: Normal examination.
--- NOTE | 2016-07-23 15:23 | CP.PCM.CON ---
History of Present Illness - History of Present Illness History of Present Illness: EP Cardiology consult for Dr. Jules Reason for consult: CHF, EF 10% 80 y/o Deo female with PMHx of HTN, arthritis, and cataracts who presented to the ED for four days of nausea, vomiting, and abdominal pain. [place] the [place] three [place] ago after a 5 month stay in the [facility] [place]. Pt's family reported decreased appetite, confusion, and altered mental status. We were consulted for patients low EF of 10%. Pt was admitted on 07/20 and subsequently transferred to the ICU for respiratory distress s/p incubation on 07/23. Pt is currently intubated and unable to provide a history. History obtained from medical record and family. CXR: ETT and NGT in place; R lower and R mid lung pneumonia vs pulmonary edeam. Echo: preliminary reports EF 10% INESSA: Trop 0.4480; CKMB 7.13 Review of Systems - Review of Systems Systems not reviewed;Unavailable: Intubated Past Patient History - Past Medical History & Family History Past Medical History?: Yes - Past Social History Smoking Status: Light Smoker < 10 Cigarettes Daily - CARDIAC Hx Hypertension: Yes - PULMONARY Hx Respiratory Disorders: No - NEUROLOGICAL Hx Neurological Disorder: No - HEENT Hx HEENT Problems: No Other/Comment: Poor vision both eyes, have eye doctor appoinment 08/04/16. - RENAL Hx Chronic Kidney Disease: No - ENDOCRINE/METABOLIC Hx Endocrine Disorders: Yes Other/Comment: THYROID NODULES - HEMATOLOGICAL/ONCOLOGICAL Hx Blood Disorders: No - INTEGUMENTARY Hx Dermatological Problems: Yes Other/Comment: h/o skin rashes - MUSCULOSKELETAL/RHEUMATOLOGICAL Hx Arthritis: Yes (B/L KNEE ARTHRITIS) - GASTROINTESTINAL Hx Gastrointestinal Disorders: No - GENITOURINARY/GYNECOLOGICAL Hx Genitourinary Disorders: No - PSYCHIATRIC Hx Substance Use: No - SURGICAL HISTORY Hx Surgeries: Yes Other/Comment: 1993 THYROID SX - ANESTHESIA Hx Anesthesia: Yes Hx Anesthesia Reactions: No Hx Malignant Hyperthermia: No Has any member of the family had a problem w/ anesthesia?: No Meds Allergies/Adverse Reactions: Allergies Allergy/AdvReac Type Severity Reaction Status Date / Time No Known Allergies Allergy Verified 12/28/13 12:04 - Medications Medications: Current Medications Albuterol/Ipratropium (Duoneb 3 Mg/0.5 Mg (3 Ml) Ud) 3 ml INH RQ6 [facility] Last Admin: 07/23/16 13:38 Dose: 3 ml Dexamethasone (Decadron Inj) 4 mg IV Q8 [facility] Last Admin: 07/23/16 13:29 Dose: 4 mg Folic Acid (Folic Acid) 1 mg PO DAILY [facility] Last Admin: 07/22/16 17:25 Dose: 1 mg Nitroglycerin/Dextrose (Nitroglycerin 50 Mg/250 Ml D5w) 50 mg in 250 mls @ 1.5 mls/hr IV .Q24H JESSI; 5 MCG/MIN PRN Reason: Protocol Last Admin: 07/23/16 11:08 Dose: 150 mcg/min, 45 mls/hr Propofol (Diprivan) 1,000 mg in 100 mls @ 20.727 mls/hr IV .Q4H50M PRN; Protocol; 47.6 MCG/KG/MIN PRN Reason: TITRATE PER MD ORDER Last Admin: 07/23/16 14:19 Dose: 47.6 mcg/kg/min, 20.727 mls/hr Piperacillin Sod/Tazobactam Sod (Zosyn 2.25 Gm Iv Premix) 2.25 gm in 50 mls @ 100 mls/hr IVPB Q6H [facility] Last Admin: 07/23/16 13:02 Dose: 100 mls/hr Furosemide 100 mg/ Dextrose 100 mls @ 5 mls/hr IV .Q20H JESSI; 5 MG/HR PRN Reason: Protocol Lorazepam (Ativan) 1 mg PO DAILY PRN PRN Reason: Anxiety Losartan Potassium (Cozaar) 100 mg PO DAILY [facility] Last Admin: 07/22/16 11:02 Dose: 100 mg Nifedipine (Procardia) 10 mg PO DAILY [facility] Last Admin: 07/22/16 11:02 Dose: 10 mg Physical Exam - Constitutional Appears: Toxic, In Acute Distress - Head Exam Head Exam: ATRAUMATIC, NORMAL INSPECTION, NORMOCEPHALIC - ENT Exam ENT Exam: Mucous Membranes Dry - Neck Exam Neck exam: Negative for: Lymphadenopathy - Respiratory Exam Respiratory Exam: Clear to Auscultation Bilateral. absent: Rales, Rhonchi Additional comments: Intubated - Cardiovascular Exam Cardiovascular Exam: RRR, +S1, +S2 - GI/Abdominal Exam GI & Abdominal Exam: Normal Bowel Sounds, Soft. absent: Tenderness - Extremities Exam Extremities exam: Positive for: normal inspection. Negative for: calf tenderness, pedal edema - Neurological Exam Additional comments: Spontaneous movement in all limbs - Skin Skin Exam: Intact, Normal Color, Warm Results - Vital Signs Recent Vital Signs: Last Vital Signs Temp 97.8 F 07/23/16 15:00 Pulse 81 07/23/16 15:00 Resp 20 07/23/16 15:00 BP 154/103 H 07/23/16 15:00 Pulse Ox 100 07/23/16 15:00 - Labs Result Diagrams: 07/23/16 07:04 07/23/16 07:04 Labs: Laboratory Results - last 24 hr 07/22/16 07/22/16 07/22/16 07:51 15:00 17:21 WBC RBC Hgb Hct MCV MCH MCHC RDW Plt Count MPV Neut % (Auto) Lymph % (Auto) [place] % (Auto) Eos % (Auto) Baso % (Auto) Neut # Lymph # [place] # Eos # Baso # Retic Count PT INR APTT Fibrinogen 303 Puncture Site pCO2 pO2 HCO3 ABG pH ABG Total CO2 ABG O2 Saturation ABG Base Excess ABG Hemoglobin ABG Carboxyhemoglobin POC ABG HHb (Measured) ABG Methemoglobin Braxton Test ABG Potassium A-a O2 Difference Respiratory Index Hgb O2 Saturation Sodium Chloride Glucose Lactate Mechanical Rate FiO2 Tidal Volume PEEP Crit Value Called To Crit Value Called By Crit Value Read Back Blood Gas Notified Time Potassium Carbon Dioxide Anion Gap BUN Creatinine Est GFR ( Amer) Est GFR (Non-Af Amer) Random Glucose Calcium Phosphorus Magnesium Total Bilirubin AST ALT Alkaline Phosphatase Lactate Dehydrogenase Total Creatine Kinase CK-MB (Mass) Troponin I, Quant Total Protein Albumin Globulin Albumin/Globulin Ratio Vitamin B12 TSH 3rd Generation Arterial Blood Potassium Urine Osmolality 232 L Ur Random Sodium 78 C. difficile Ag & Toxin Negative Blood Type Antibody Screen 07/22/16 07/22/16 07/22/16 17:22 20:15 22:11 WBC RBC Hgb Hct MCV MCH MCHC RDW Plt Count MPV Neut % (Auto) Lymph % (Auto) [place] % (Auto) Eos % (Auto) Baso % (Auto) Neut # Lymph # [place] # Eos # Baso # Retic Count PT 11.3 INR 1.0 APTT 26 Fibrinogen Puncture Site pCO2 pO2 HCO3 ABG pH ABG Total CO2 ABG O2 Saturation ABG Base Excess ABG Hemoglobin ABG Carboxyhemoglobin POC ABG HHb (Measured) ABG Methemoglobin Braxton Test ABG Potassium A-a O2 Difference Respiratory Index Hgb O2 Saturation Sodium Chloride Glucose Lactate Mechanical Rate FiO2 Tidal Volume PEEP Crit Value Called To Crit Value Called By Crit Value Read Back Blood Gas Notified Time Potassium Carbon Dioxide Anion Gap BUN Creatinine Est GFR ( Amer) Est GFR (Non-Af Amer) Random Glucose Calcium Phosphorus Magnesium Total Bilirubin AST ALT Alkaline Phosphatase Lactate Dehydrogenase 1301 H Total Creatine Kinase CK-MB (Mass) Troponin I, Quant Total Protein Albumin Globulin Albumin/Globulin Ratio Vitamin B12 483 TSH 3rd Generation 11.50 H Arterial Blood Potassium Urine Osmolality Ur Random Sodium C. difficile Ag & Toxin Blood Type O POSITIVE Antibody Screen Negative 07/23/16 07/23/16 07/23/16 06:14 07:04 07:04 WBC 9.2 D RBC 4.12 Hgb 13.1 Hct 40.9 MCV 99.3 H D MCH 31.9 H MCHC 32.1 L RDW 17.8 H Plt Count 93 L D MPV 11.3 Neut % (Auto) 84.1 H Lymph % (Auto) 13.0 L [place] % (Auto) 2.1 Eos % (Auto) 0.4 Baso % (Auto) 0.4 Neut # 7.7 H Lymph # 1.2 [place] # 0.2 Eos # 0.0 Baso # 0.0 Retic Count 1.3 PT INR APTT Fibrinogen Puncture Site R bra pCO2 45 pO2 43 L* HCO3 21.4 ABG pH 7.31 L ABG Total CO2 24.1 ABG O2 Saturation 76.5 L ABG Base Excess -3.7 L ABG Hemoglobin ABG Carboxyhemoglobin POC ABG HHb (Measured) ABG Methemoglobin Braxton Test Pos ABG Potassium 4.2 A-a O2 Difference 614.0 Respiratory Index 14.3 Hgb O2 Saturation Sodium 138.0 Chloride 104.0 Glucose 205 H Lactate 3.4 H Mechanical Rate 20 FiO2 100.0 Tidal Volume 450 PEEP 8 Crit Value Called To Dr chavez Crit Value Called By Deirdre parks Crit Value Read Back Y Blood Gas Notified Time 622 Potassium Carbon Dioxide Anion Gap BUN Creatinine Est GFR ( Amer) Est GFR (Non-Af Amer) Random Glucose Calcium Phosphorus Magnesium Total Bilirubin AST ALT Alkaline Phosphatase Lactate Dehydrogenase Total Creatine Kinase CK-MB (Mass) Troponin I, Quant Total Protein Albumin Globulin Albumin/Globulin Ratio Vitamin B12 TSH 3rd Generation Arterial Blood Potassium 4.2 Urine Osmolality Ur Random Sodium C. difficile Ag & Toxin Blood Type Antibody Screen 07/23/16 07/23/16 07:04 13:26 WBC RBC Hgb Hct MCV MCH MCHC RDW Plt Count MPV Neut % (Auto) Lymph % (Auto) [place] % (Auto) Eos % (Auto) Baso % (Auto) Neut # Lymph # [place] # Eos # Baso # Retic Count PT INR APTT Fibrinogen Puncture Site Rb pCO2 32 L pO2 167 H HCO3 26.6 ABG pH 7.50 H ABG Total CO2 26.0 ABG O2 Saturation 100.1 H ABG Base Excess 2.2 ABG Hemoglobin 11.9 ABG Carboxyhemoglobin 1.9 H POC ABG HHb (Measured) -0.1 L ABG Methemoglobin 1.6 Braxton Test Na ABG Potassium A-a O2 Difference 506.0 Respiratory Index 3.0 Hgb O2 Saturation 96.6 Sodium 135 Chloride 101 Glucose Lactate Mechanical Rate 20 FiO2 100.0 Tidal Volume 450 PEEP 10 Crit Value Called To Crit Value Called By Crit Value Read Back Blood Gas Notified Time Potassium 4.4 Carbon Dioxide 20 L Anion Gap 18 BUN 37 H Creatinine 3.0 H Est GFR ( Amer) 18 Est GFR (Non-Af Amer) 15 Random Glucose 202 H Calcium 8.6 Phosphorus 6.0 H Magnesium 1.9 Total Bilirubin 1.7 H AST 82 H D ALT 50 Alkaline Phosphatase 78 Lactate Dehydrogenase Total Creatine Kinase 120 CK-MB (Mass) 7.13 H Troponin I, Quant 0.4480 H* Total Protein 7.2 Albumin 3.6 Globulin 3.6 Albumin/Globulin Ratio 1.0 Vitamin B12 TSH 3rd Generation Arterial Blood Potassium Urine Osmolality Ur Random Sodium C. difficile Ag & Toxin Blood Type Antibody Screen Assessment & Plan (1) CHF (congestive heart failure) Assessment and Plan: EF preliminary report at about 10% Will recommend life vest at this time Continue Nitro and lasix drips Continue current medical management Status: Acute
--- NOTE | 2016-07-23 16:18 | CP.PCM.PN ---
Subjective - Date & Time of Evaluation Date of Evaluation: 07/23/16 Time of Evaluation: 16:15 - Subjective Subjective: Patient intubated and sedated, intubated after SOB during FFP transfusion. New infiltrate noted as well as increased troponins. Reviewed smear from yesterday- positive for spherocytes and 2-4 schistocytes on smear. Objective - Vital Signs/Intake and Output Vital Signs (last 24 hours): Temp Pulse Resp BP Pulse Ox 97.8 F 81 20 154/103 H 100 07/23/16 15:00 07/23/16 15:00 07/23/16 15:00 07/23/16 15:00 07/23/16 15:00 Intake and Output: 07/23/16 07/23/16 06:59 18:59 Intake Total 720 1261.7 Output Total 580 Balance 720 681.7 - Medications Medications: Current Medications Albuterol/Ipratropium (Duoneb 3 Mg/0.5 Mg (3 Ml) Ud) 3 ml INH RQ6 [facility] Last Admin: 07/23/16 13:38 Dose: 3 ml Dexamethasone (Decadron Inj) 4 mg IV Q8 [facility] Last Admin: 07/23/16 13:29 Dose: 4 mg Nitroglycerin/Dextrose (Nitroglycerin 50 Mg/250 Ml D5w) 50 mg in 250 mls @ 1.5 mls/hr IV .Q24H [facility]; 5 MCG/MIN PRN Reason: Protocol Last Admin: 07/23/16 11:08 Dose: 150 mcg/min, 45 mls/hr Propofol (Diprivan) 1,000 mg in 100 mls @ 20.727 mls/hr IV .Q4H50M PRN; Protocol; 47.6 MCG/KG/MIN PRN Reason: TITRATE PER MD ORDER Last Admin: 07/23/16 14:19 Dose: 47.6 mcg/kg/min, 20.727 mls/hr Piperacillin Sod/Tazobactam Sod (Zosyn 2.25 Gm Iv Premix) 2.25 gm in 50 mls @ 100 mls/hr IVPB Q6H [facility] Last Admin: 07/23/16 13:02 Dose: 100 mls/hr Furosemide 100 mg/ Dextrose 100 mls @ 5 mls/hr IV .Q20H [facility]ESSI; 5 MG/HR PRN Reason: Protocol - Labs Labs: 07/23/16 07:04 07/23/16 07:04 PT 11.3 SECONDS (9.7-12.2) 07/22/16 22:11 INR 1.0 07/22/16 22:11 APTT 26 SECONDS (21-34) 07/22/16 22:11
[2016-07-23 16:26] LABS: CK-MB 4.65 ng/mL (0.0-3.38)
--- NOTE | 2016-07-23 17:22 | CP.CCUPN ---
CCU Subjective - Physician Review Events Since Last Encounter (Free Text): 07/23/16 17:19 Patient seen and examined in the intensive care unit. Case discussed with house staff in the morning rounds. Patient intubated and transferred to ICU for pulmonary edema after platelet transfusion Patient on ventilatory support requiring 100% FiO2 with PEEP of 10 Stat echocardiogram showed ejection fraction of 10% Shai catheter inserted in right femoral vein for plasmapheresis for TTP which could not be done because of unstable patient condition Transfuse fresh plasma every 8 hours as per hematology EPS evaluation for LifeVest Case discussed with family at multiple times and poor condition Nephrology consulted for worsening renal function CCU Objective - Vital Signs / Intake & Output Vital Signs (Last 4 hours): Vital Signs Temp Pulse Resp BP Pulse Ox 07/23/16 16:13 79 20 142/90 100 07/23/16 16:00 98.6 F 79 20 142/90 100 07/23/16 15:00 97.8 F 81 20 154/103 H 100 07/23/16 14:00 78 20 110/72 100 Intake and Output (Last 8hrs): Intake & Output 07/23/16 07/23/16 07/23/16 06:59 14:59 22:59 Intake Total 1195 383.4 Output Total 480 140 Balance 715 243.4 Intake: IV 350 250 Intake, IV Amount 845 133.4 Left Forearm 160 33.4 Right Antecubital 270 Right Distal Port 90 90 Internal Jugular Right Forearm 15 Right Proximal Port 10 10 Internal Jugular Rt Antecubital "B" 300 Output: Urine 480 140 Urine, Voided 480 140 - Physical Exam Head: Positive for: Atraumatic, Normocephalic Mouth: Positive for: Moist Mucous Membranes Neck: Positive for: Normal Range of Motion Abdomen: Positive for: Normal Bowel Sounds Upper Extremity: Positive for: Normal Inspection Lower Extremity: Positive for: Normal Inspection - Medications Active Medications: Active Medications Generic Name Dose Route Start Last Admin Trade Name Freq PRN Reason Stop Dose Admin Albuterol/Ipratropium 3 ml 07/23/16 08:00 07/23/16 13:38 Duoneb 3 Mg/0.5 Mg (3 Ml) Ud INH 3 ml RQ6 JESSI Administration Dexamethasone 4 mg 07/23/16 14:00 07/23/16 13:29 Decadron Inj IV 4 mg Q8 JESSI Administration Nitroglycerin/Dextrose 50 mg in 250 mls @ 1.5 mls/hr 07/23/16 05:15 07/23/16 16:13 Nitroglycerin 50 Mg/250 Ml D5w IV 150 mcg/min .Q24H JESSI 45 mls/hr Protocol Administration 5 MCG/MIN Propofol 1,000 mg in 100 mls @ 20.727 mls/hr 07/23/16 08:58 07/23/16 14:19 Diprivan IV 47.6 mcg/kg/min .Q4H50M PRN 20.727 mls/hr TITRATE PER MD ORDER Administration Protocol 47.6 MCG/KG/MIN Piperacillin Sod/Tazobactam Sod 2.25 gm in 50 mls @ 100 mls/hr 07/23/16 13:00 07/23/16 13:02 Zosyn 2.25 Gm Iv Premix IVPB 100 mls/hr Q6H JESSI Administration Furosemide 100 mg/ Dextrose 100 mls @ 5 mls/hr 07/24/16 06:00 IV .Q20H JESSI Protocol 5 MG/HR - Patient Studies Lab Studies: Lab Studies 07/23/16 07/23/16 07/23/16 Range/Units 15:53 13:26 07:04 WBC (4.8-10.8) K/uL RBC (3.80-5.20) Mil/uL Hgb (11.0-16.0) g/dL Hct (34.0-47.0) % MCV (81.0-99.0) fL MCH (27.0-31.0) pg MCHC (33.0-37.0) g/dL RDW (11.5-14.5) % Plt Count (130-400) K/uL MPV (7.2-11.7) fL Neut % (Auto) (50.0-75.0) % Lymph % (Auto) (20.0-40.0) % [place] % (Auto) (0.0-10.0) % Eos % (Auto) (0.0-4.0) % Baso % (Auto) (0.0-2.0) % Neut # (1.8-7.0) K/uL Lymph # (1.0-4.3) K/uL [place] # (0.0-0.8) K/uL Eos # (0.0-0.7) K/uL Baso # (0.0-0.2) K/uL Retic Count (0.5-1.5) % PT (9.7-12.2) SECONDS INR APTT (21-34) SECONDS Fibrinogen (200-400) mg/dL Puncture Site Rb pCO2 32 L (35-45) mm/Hg pO2 167 H (80-100) mm/Hg HCO3 26.6 (21-28) mmol/L ABG pH 7.50 H (7.35-7.45) ABG Total CO2 26.0 (22-28) mmol/L ABG O2 Saturation 100.1 H (95-98) % ABG Base Excess 2.2 (-2.0-3.0) mmol/L ABG Hemoglobin 11.9 (11.7-17.4) g/dL ABG Carboxyhemoglobin 1.9 H (0.5-1.5) % POC ABG HHb (Measured) -0.1 L (0.0-5.0) % ABG Methemoglobin 1.6 (0.0-3.0) % Braxton Test Na ABG Potassium (3.6-5.2) mmol/L A-a O2 Difference 506.0 mm/Hg Respiratory Index 3.0 Hgb O2 Saturation 96.6 (95.0-98.0) % Sodium 135 (132-148) mmol/l Chloride 101 (98-107) mmol/L Glucose (65-105) mg/dl Lactate (0.7-2.1) mmol/L Mechanical Rate 20 FiO2 100.0 % Tidal Volume 450 PEEP 10 Crit Value Called To Crit Value Called By Crit Value Read Back Blood Gas Notified Time Potassium 4.4 (3.6-5.2) mmol/L Carbon Dioxide 20 L (22-30) mmol/L Anion Gap 18 (10-20) BUN 37 H (7-17) mg/dL Creatinine 3.0 H (0.7-1.2) MG/DL Est GFR ( Amer) 18 Est GFR (Non-Af Amer) 15 Random Glucose 202 H (65-105) mg/dL Calcium 8.6 (8.6-10.4) mg/dl Phosphorus 6.0 H (2.5-4.5) mg/dL Magnesium 1.9 (1.6-2.3) mg/dL Total Bilirubin 1.7 H (0.2-1.3) mg/dL AST 82 H D (14-36) U/L ALT 50 (9-52) U/L Alkaline Phosphatase 78 (38-126) U/L Lactate Dehydrogenase (313-618) U/L Total Creatine Kinase 69 120 (30-135) U/L CK-MB (Mass) 4.65 H 7.13 H (0.0-3.38) ng/mL Troponin I, Quant 1.0300 H* 0.4480 H* (0.00-0.120) ng/mL Total Protein 7.2 (6.3-8.3) g/dL Albumin 3.6 (3.5-5.0) g/dL Globulin 3.6 (2.2-3.9) gm/dL Albumin/Globulin Ratio 1.0 (1.0-2.1) Vitamin B12 (239-931) pg/mL TSH 3rd Generation (0.46-4.68) mIU/L Arterial Blood Potassium (3.6-5.2) mmol/L Urine Osmolality (300-1000) mosm/kg Ur Random Sodium mmol/L C. difficile Ag & Toxin (NEGATIVE) Blood Type Antibody Screen 07/23/16 07/23/16 07/23/16 Range/Units 07:04 07:04 06:14 WBC 9.2 D (4.8-10.8) K/uL RBC 4.12 (3.80-5.20) Mil/uL Hgb 13.1 (11.0-16.0) g/dL Hct 40.9 (34.0-47.0) % MCV 99.3 H D (81.0-99.0) fL MCH 31.9 H (27.0-31.0) pg MCHC 32.1 L (33.0-37.0) g/dL RDW 17.8 H (11.5-14.5) % Plt Count 93 L D (130-400) K/uL MPV 11.3 (7.2-11.7) fL Neut % (Auto) 84.1 H (50.0-75.0) % Lymph % (Auto) 13.0 L (20.0-40.0) % [place] % (Auto) 2.1 (0.0-10.0) % Eos % (Auto) 0.4 (0.0-4.0) % Baso % (Auto) 0.4 (0.0-2.0) % Neut # 7.7 H (1.8-7.0) K/uL Lymph # 1.2 (1.0-4.3) K/uL [place] # 0.2 (0.0-0.8) K/uL Eos # 0.0 (0.0-0.7) K/uL Baso # 0.0 (0.0-0.2) K/uL Retic Count 1.3 (0.5-1.5) % PT (9.7-12.2) SECONDS INR APTT (21-34) SECONDS Fibrinogen (200-400) mg/dL Puncture Site R bra pCO2 45 (35-45) mm/Hg pO2 43 L* (80-100) mm/Hg HCO3 21.4 (21-28) mmol/L ABG pH 7.31 L (7.35-7.45) ABG Total CO2 24.1 (22-28) mmol/L ABG O2 Saturation 76.5 L (95-98) % ABG Base Excess -3.7 L (-2.0-3.0) mmol/L ABG Hemoglobin (11.7-17.4) g/dL ABG Carboxyhemoglobin (0.5-1.5) % POC ABG HHb (Measured) (0.0-5.0) % ABG Methemoglobin (0.0-3.0) % Braxton Test Pos ABG Potassium 4.2 (3.6-5.2) mmol/L A-a O2 Difference 614.0 mm/Hg Respiratory Index 14.3 Hgb O2 Saturation (95.0-98.0) % Sodium 138.0 (132-148) mmol/l Chloride 104.0 (98-107) mmol/L Glucose 205 H (65-105) mg/dl Lactate 3.4 H (0.7-2.1) mmol/L Mechanical Rate 20 FiO2 100.0 % Tidal Volume 450 PEEP 8 Crit Value Called To Dr chavez Crit Value Called By M charly Crit Value Read Back Y Blood Gas Notified Time 622 Potassium (3.6-5.2) mmol/L Carbon Dioxide (22-30) mmol/L Anion Gap (10-20) BUN (7-17) mg/dL Creatinine (0.7-1.2) MG/DL Est GFR ( Amer) Est GFR (Non-Af Amer) Random Glucose (65-105) mg/dL Calcium (8.6-10.4) mg/dl Phosphorus (2.5-4.5) mg/dL Magnesium (1.6-2.3) mg/dL Total Bilirubin (0.2-1.3) mg/dL AST (14-36) U/L ALT (9-52) U/L Alkaline Phosphatase (38-126) U/L Lactate Dehydrogenase (313-618) U/L Total Creatine Kinase (30-135) U/L CK-MB (Mass) (0.0-3.38) ng/mL Troponin I, Quant (0.00-0.120) ng/mL Total Protein (6.3-8.3) g/dL Albumin (3.5-5.0) g/dL Globulin (2.2-3.9) gm/dL Albumin/Globulin Ratio (1.0-2.1) Vitamin B12 (239-931) pg/mL TSH 3rd Generation (0.46-4.68) mIU/L Arterial Blood Potassium 4.2 (3.6-5.2) mmol/L Urine Osmolality (300-1000) mosm/kg Ur Random Sodium mmol/L C. difficile Ag & Toxin (NEGATIVE) Blood Type Antibody Screen 07/22/16 07/22/16 07/22/16 Range/Units 22:11 20:15 17:22 WBC (4.8-10.8) K/uL RBC (3.80-5.20) Mil/uL Hgb (11.0-16.0) g/dL Hct (34.0-47.0) % MCV (81.0-99.0) fL MCH (27.0-31.0) pg MCHC (33.0-37.0) g/dL RDW (11.5-14.5) % Plt Count (130-400) K/uL MPV (7.2-11.7) fL Neut % (Auto) (50.0-75.0) % Lymph % (Auto) (20.0-40.0) % [place] % (Auto) (0.0-10.0) % Eos % (Auto) (0.0-4.0) % Baso % (Auto) (0.0-2.0) % Neut # (1.8-7.0) K/uL Lymph # (1.0-4.3) K/uL [place] # (0.0-0.8) K/uL Eos # (0.0-0.7) K/uL Baso # (0.0-0.2) K/uL Retic Count (0.5-1.5) % PT 11.3 (9.7-12.2) SECONDS INR 1.0 APTT 26 (21-34) SECONDS Fibrinogen (200-400) mg/dL Puncture Site pCO2 (35-45) mm/Hg pO2 (80-100) mm/Hg HCO3 (21-28) mmol/L ABG pH (7.35-7.45) ABG Total CO2 (22-28) mmol/L ABG O2 Saturation (95-98) % ABG Base Excess (-2.0-3.0) mmol/L ABG Hemoglobin (11.7-17.4) g/dL ABG Carboxyhemoglobin (0.5-1.5) % POC ABG HHb (Measured) (0.0-5.0) % ABG Methemoglobin (0.0-3.0) % Braxton Test ABG Potassium (3.6-5.2) mmol/L A-a O2 Difference mm/Hg Respiratory Index Hgb O2 Saturation (95.0-98.0) % Sodium (132-148) mmol/l Chloride (98-107) mmol/L Glucose (65-105) mg/dl Lactate (0.7-2.1) mmol/L Mechanical Rate FiO2 % Tidal Volume PEEP Crit Value Called To Crit Value Called By Crit Value Read Back Blood Gas Notified Time Potassium (3.6-5.2) mmol/L Carbon Dioxide (22-30) mmol/L Anion Gap (10-20) BUN (7-17) mg/dL Creatinine (0.7-1.2) MG/DL Est GFR ( Amer) Est GFR (Non-Af Amer) Random Glucose (65-105) mg/dL Calcium (8.6-10.4) mg/dl Phosphorus (2.5-4.5) mg/dL Magnesium (1.6-2.3) mg/dL Total Bilirubin (0.2-1.3) mg/dL AST (14-36) U/L ALT (9-52) U/L Alkaline Phosphatase (38-126) U/L Lactate Dehydrogenase 1301 H (313-618) U/L Total Creatine Kinase (30-135) U/L CK-MB (Mass) (0.0-3.38) ng/mL Troponin I, Quant (0.00-0.120) ng/mL Total Protein (6.3-8.3) g/dL Albumin (3.5-5.0) g/dL Globulin (2.2-3.9) gm/dL Albumin/Globulin Ratio (1.0-2.1) Vitamin B12 483 (239-931) pg/mL TSH 3rd Generation 11.50 H (0.46-4.68) mIU/L Arterial Blood Potassium (3.6-5.2) mmol/L Urine Osmolality (300-1000) mosm/kg Ur Random Sodium mmol/L C. difficile Ag & Toxin (NEGATIVE) Blood Type O POSITIVE Antibody Screen Negative 07/22/16 07/22/16 07/22/16 Range/Units 17:21 15:00 07:51 WBC (4.8-10.8) K/uL RBC (3.80-5.20) Mil/uL Hgb (11.0-16.0) g/dL Hct (34.0-47.0) % MCV (81.0-99.0) fL MCH (27.0-31.0) pg MCHC (33.0-37.0) g/dL RDW (11.5-14.5) % Plt Count (130-400) K/uL MPV (7.2-11.7) fL Neut % (Auto) (50.0-75.0) % Lymph % (Auto) (20.0-40.0) % [place] % (Auto) (0.0-10.0) % Eos % (Auto) (0.0-4.0) % Baso % (Auto) (0.0-2.0) % Neut # (1.8-7.0) K/uL Lymph # (1.0-4.3) K/uL [place] # (0.0-0.8) K/uL Eos # (0.0-0.7) K/uL Baso # (0.0-0.2) K/uL Retic Count (0.5-1.5) % PT (9.7-12.2) SECONDS INR APTT (21-34) SECONDS Fibrinogen 303 (200-400) mg/dL Puncture Site pCO2 (35-45) mm/Hg pO2 (80-100) mm/Hg HCO3 (21-28) mmol/L ABG pH (7.35-7.45) ABG Total CO2 (22-28) mmol/L ABG O2 Saturation (95-98) % ABG Base Excess (-2.0-3.0) mmol/L ABG Hemoglobin (11.7-17.4) g/dL ABG Carboxyhemoglobin (0.5-1.5) % POC ABG HHb (Measured) (0.0-5.0) % ABG Methemoglobin (0.0-3.0) % Braxton Test ABG Potassium (3.6-5.2) mmol/L A-a O2 Difference mm/Hg Respiratory Index Hgb O2 Saturation (95.0-98.0) % Sodium (132-148) mmol/l Chloride (98-107) mmol/L Glucose (65-105) mg/dl Lactate (0.7-2.1) mmol/L Mechanical Rate FiO2 % Tidal Volume PEEP Crit Value Called To Crit Value Called By Crit Value Read Back Blood Gas Notified Time Potassium (3.6-5.2) mmol/L Carbon Dioxide (22-30) mmol/L Anion Gap (10-20) BUN (7-17) mg/dL Creatinine (0.7-1.2) MG/DL Est GFR ( Amer) Est GFR (Non-Af Amer) Random Glucose (65-105) mg/dL Calcium (8.6-10.4) mg/dl Phosphorus (2.5-4.5) mg/dL Magnesium (1.6-2.3) mg/dL Total Bilirubin (0.2-1.3) mg/dL AST (14-36) U/L ALT (9-52) U/L Alkaline Phosphatase (38-126) U/L Lactate Dehydrogenase (313-618) U/L Total Creatine Kinase (30-135) U/L CK-MB (Mass) (0.0-3.38) ng/mL Troponin I, Quant (0.00-0.120) ng/mL Total Protein (6.3-8.3) g/dL Albumin (3.5-5.0) g/dL Globulin (2.2-3.9) gm/dL Albumin/Globulin Ratio (1.0-2.1) Vitamin B12 (239-931) pg/mL TSH 3rd Generation (0.46-4.68) mIU/L Arterial Blood Potassium (3.6-5.2) mmol/L Urine Osmolality 232 L (300-1000) mosm/kg Ur Random Sodium 78 mmol/L C. difficile Ag & Toxin Negative (NEGATIVE) Blood Type Antibody Screen Laboratory Results - last 24 hr 07/22/16 07/22/16 07/22/16 07:51 15:00 17:21 WBC RBC Hgb Hct MCV MCH MCHC RDW Plt Count MPV Neut % (Auto) Lymph % (Auto) [place] % (Auto) Eos % (Auto) Baso % (Auto) Neut # Lymph # [place] # Eos # Baso # Retic Count PT INR APTT Fibrinogen 303 Puncture Site pCO2 pO2 HCO3 ABG pH ABG Total CO2 ABG O2 Saturation ABG Base Excess ABG Hemoglobin ABG Carboxyhemoglobin POC ABG HHb (Measured) ABG Methemoglobin Braxton Test ABG Potassium A-a O2 Difference Respiratory Index Hgb O2 Saturation Sodium Chloride Glucose Lactate Mechanical Rate FiO2 Tidal Volume PEEP Crit Value Called To Crit Value Called By Crit Value Read Back Blood Gas Notified Time Potassium Carbon Dioxide Anion Gap BUN Creatinine Est GFR ( Amer) Est GFR (Non-Af Amer) Random Glucose Calcium Phosphorus Magnesium Total Bilirubin AST ALT Alkaline Phosphatase Lactate Dehydrogenase Total Creatine Kinase CK-MB (Mass) Troponin I, Quant Total Protein Albumin Globulin Albumin/Globulin Ratio Vitamin B12 TSH 3rd Generation Arterial Blood Potassium Urine Osmolality 232 L Ur Random Sodium 78 C. difficile Ag & Toxin Negative Blood Type Antibody Screen 07/22/16 07/22/1607/22/17 17:22 20:15 22:11 WBC RBC Hgb Hct MCV MCH MCHC RDW Plt Count MPV Neut % (Auto) Lymph % (Auto) [place] % (Auto) Eos % (Auto) Baso % (Auto) Neut # Lymph # [place] # Eos # Baso # Retic Count PT 11.3 INR 1.0 APTT 26 Fibrinogen Puncture Site pCO2 pO2 HCO3 ABG pH ABG Total CO2 ABG O2 Saturation ABG Base Excess ABG Hemoglobin ABG Carboxyhemoglobin POC ABG HHb (Measured) ABG Methemoglobin Braxton Test ABG Potassium A-a O2 Difference Respiratory Index Hgb O2 Saturation Sodium Chloride Glucose Lactate Mechanical Rate FiO2 Tidal Volume PEEP Crit Value Called To Crit Value Called By Crit Value Read Back Blood Gas Notified Time Potassium Carbon Dioxide Anion Gap BUN Creatinine Est GFR ( Amer) Est GFR (Non-Af Amer) Random Glucose Calcium Phosphorus Magnesium Total Bilirubin AST ALT Alkaline Phosphatase Lactate Dehydrogenase 1301 H Total Creatine Kinase CK-MB (Mass) Troponin I, Quant Total Protein Albumin Globulin Albumin/Globulin Ratio Vitamin B12 483 TSH 3rd Generation 11.50 H Arterial Blood Potassium Urine Osmolality Ur Random Sodium C. difficile Ag & Toxin Blood Type O POSITIVE Antibody Screen Negative 07/23/16 07/23/16 07/23/16 06:14 07:04 07:04 WBC 9.2 D RBC 4.12 Hgb 13.1 Hct 40.9 MCV 99.3 H D MCH 31.9 H MCHC 32.1 L RDW 17.8 H Plt Count 93 L D MPV 11.3 Neut % (Auto) 84.1 H Lymph % (Auto) 13.0 L [place] % (Auto) 2.1 Eos % (Auto) 0.4 Baso % (Auto) 0.4 Neut # 7.7 H Lymph # 1.2 [place] # 0.2 Eos # 0.0 Baso # 0.0 Retic Count 1.3 PT INR APTT Fibrinogen Puncture Site R bra pCO2 45 pO2 43 L* HCO3 21.4 ABG pH 7.31 L ABG Total CO2 24.1 ABG O2 Saturation 76.5 L ABG Base Excess -3.7 L ABG Hemoglobin ABG Carboxyhemoglobin POC ABG HHb (Measured) ABG Methemoglobin Braxton Test Pos ABG Potassium 4.2 A-a O2 Difference 614.0 Respiratory Index 14.3 Hgb O2 Saturation Sodium 138.0 Chloride 104.0 Glucose 205 H Lactate 3.4 H Mechanical Rate 20 FiO2 100.0 Tidal Volume 450 PEEP 8 Crit Value Called To Dr chavez Crit Value Called By Deirdre parks Crit Value Read Back Y Blood Gas Notified Time 622 Potassium Carbon Dioxide Anion Gap BUN Creatinine Est GFR ( Amer) Est GFR (Non-Af Amer) Random Glucose Calcium Phosphorus Magnesium Total Bilirubin AST ALT Alkaline Phosphatase Lactate Dehydrogenase Total Creatine Kinase CK-MB (Mass) Troponin I, Quant Total Protein Albumin Globulin Albumin/Globulin Ratio Vitamin B12 TSH 3rd Generation Arterial Blood Potassium 4.2 Urine Osmolality Ur Random Sodium C. difficile Ag & Toxin Blood Type Antibody Screen 07/23/16 07/23/16 07/23/16 07:04 13:26 15:53 WBC RBC Hgb Hct MCV MCH MCHC RDW Plt Count MPV Neut % (Auto) Lymph % (Auto) [place] % (Auto) Eos % (Auto) Baso % (Auto) Neut # Lymph # [place] # Eos # Baso # Retic Count PT INR APTT Fibrinogen Puncture Site Rb pCO2 32 L pO2 167 H HCO3 26.6 ABG pH 7.50 H ABG Total CO2 26.0 ABG O2 Saturation 100.1 H ABG Base Excess 2.2 ABG Hemoglobin 11.9 ABG Carboxyhemoglobin 1.9 H POC ABG HHb (Measured) -0.1 L ABG Methemoglobin 1.6 Braxton Test Na ABG Potassium A-a O2 Difference 506.0 Respiratory Index 3.0 Hgb O2 Saturation 96.6 Sodium 135 Chloride 101 Glucose Lactate Mechanical Rate 20 FiO2 100.0 Tidal Volume 450 PEEP 10 Crit Value Called To Crit Value Called By Crit Value Read Back Blood Gas Notified Time Potassium 4.4 Carbon Dioxide 20 L Anion Gap 18 BUN 37 H Creatinine 3.0 H Est GFR ( Amer) 18 Est GFR (Non-Af Amer) 15 Random Glucose 202 H Calcium 8.6 Phosphorus 6.0 H Magnesium 1.9 Total Bilirubin 1.7 H AST 82 H D ALT 50 Alkaline Phosphatase 78 Lactate Dehydrogenase Total Creatine Kinase 120 69 CK-MB (Mass) 7.13 H 4.65 H Troponin I, Quant 0.4480 H* 1.0300 H* Total Protein 7.2 Albumin 3.6 Globulin 3.6 Albumin/Globulin Ratio 1.0 Vitamin B12 TSH 3rd Generation Arterial Blood Potassium Urine Osmolality Ur Random Sodium C. difficile Ag & Toxin Blood Type Antibody Screen EKG/Cardiology Studies: Cardiology / EKG Studies 07/23/16 05:12 ELECTROCARDIOGRAM Stat Comment: Mode Of Transportation: Reason For Exam: respiratory depression Review of Systems - Review of Systems Systems not reviewed;Unavailable: Intubated Critical Care Progress Note - Nutrition Nutrition: Nutrition Category Date Time Status Soft [Dysphagia/Modified Consistency Diet] [DIET] Diets 07/22/16 Lunch Active Assessment/Plan (1) CHF (congestive heart failure) Current Visit: Yes Status: Acute Comment: Overnight patient got intubated for pulmonary edema and transferred to ICU. Elevated troponin could be secondary to renal failure Echocardiogram showed ejection fraction of 10% EPS cardiology evaluation for LifeVest (2) Thrombocytopenia Current Visit: Yes Status: Acute Comment: r/o Secondary to TTP Transfuse fresh frozen plasma every 8 hours and once patient stabilizes restart plasmapheresis
--- NOTE | 2016-07-23 23:54 | PN ---
DATE: 07/23/2016 The patient is located in ICU, bed 6. REQUESTED BY: Dr. Anthony Mclaughlin. REASON FOR FOLLOWUP: Renal failure and possible TTP. HISTORY OF PRESENT ILLNESS: The patient is an 80-year-old elderly female from [facility] who recently came to the after staying 5 months in the [facility], was admitted on 07/20/2016 with chief complaints of nausea, vomiting, diarrhea for 3 days prior to the admission and found to have elevated BUN and creatinine and the altered mental status and low platelets. The patient was found to have histiocytes on peripheral smear and also elevated LDH. Picture consistent with the TTP as per the mechanics supervisor, Dr. Joy. The patient went into respiratory distress yesterday, and subsequently, the patient was intubated and transferred to the ICU. The patient is on ventilator this morning and also received FFP yesterday for possible TTP, about 4 units as per the mechanics supervisor. The patient is not in acute distress, on ventilator. PHYSICAL EXAMINATION: VITAL SIGNS: This afternoon, blood pressure 125/85, pulse 95, respirations 20, temperature 98.5, saturation 100%, height 5 feet 4 inches and weight is 160 pounds and BMI 27.5. GENERAL: The patient is an 80-year-old elderly female on ventilator, not in distress. HEENT: Pupils normal, reactive to light and accommodation. Conjunctivae pink. NECK: On ventilator, trachea is midline. LUNGS: Symmetric on both sides. Bilateral breath sounds present. Occasional basal crackles present. CARDIOVASCULAR: [place] in the fifth intercostal space midclavicular line. S1 and S2 audible. No murmur or gallop. ABDOMEN: Normal in appearance, soft, tympanic. No guarding, no rigidity. No hepatosplenomegaly. CENTRAL NERVOUS SYSTEM: The patient is on ventilator. The patient is on ventilator and drowsy. Sensory and motor system is grossly within normal limits. EXTREMITIES: No cyanosis, no clubbing. Trace edema in both lower extremities. CURRENT MEDICATIONS: Include as follows on: Decadron 4 mg IV q. 8 hours , DuoNeb inhaler 3 mL q. 6 hours, Lasix drip at 5 mg per hour and IV nitroglycerin and Zosyn 2.25 grams q. 6 hours. LABORATORY DATA: Include as follows: As of 07/23/2016, WBC 9.2, hemoglobin 13.1, hematocrit is 40.9 and platelets 93. ABG: pH 7.5 and pCO2 of 32, pO2 of 167 and bicarbonate is 26.6, saturation 100% with vent setting AC 20, tidal volume 450, FiO2 of 100%, PEEP of 10. Other laboratory data: Sodium is 135, potassium is 4.4, chloride 101, CO2 of 20, BUN 37, creatinine 3.0, glucose 202, calcium 8.6, total protein 7.2, and albumin is 3.6. Calcium is 8.6, phosphorus is 6, magnesium 1.9 and total bilirubin 1.7, AST 50 and ALT is 78. Other laboratory data as of 07/22/2016, 483 and TSH is 11.5. Stool for C. diff toxin was negative as of 07/22/2016. Rheumatoid arthritis panel is negative and RADHA is pending. Ultrasound of the kidneys as of 07/23/2016, right kidney measures 8.8 cm, normal size, contour and echogenicity, and left kidney measures 8.8 cm x 7 cm, normal size, contour and echogenicity. Impression: Normal examination. SUMMARY: The patient is an 80-year-old elderly female with hypertension, arthritis who was independent before coming to the [place] with altered mental status and low platelets and also increased BUN and creatinine, and nausea, vomiting and diarrhea 3 days prior to the admission on FFP transfusion q. 6-8 hours for possible TTP with elevated histiocytes and LDH as per the mechanics supervisor. 1. Renal failure, most likely acute kidney injury, cannot rule out acute on chronic, rule out thrombotic microangiopathy. No recent Chem-7 is available at this time. 2. Hypertension. Blood pressure is stable. 3. Possible cardiomyopathy with ejection fraction about 10%, follow up official report of the echocardiogram. 4. Non-Q myocardial infarction, most likely secondary to demand ischemia secondary to recent intravascular volume depletion with nausea, vomiting, diarrhea. Case discussed with mechanics supervisor, Dr. Joy, and also groundman, _. Agreed to continue FFP, 2 units every q. 8 hours today and to monitor platelets, as platelets are improving nicely with FFP. Considering the risk of plasmapheresis in the setting of respiratory failure and cardiomyopathy, and as the platelets are improving with the fresh frozen plasma, mechanics supervisor and ICU agreed to continue FFP today, and if any deterioration in the platelets, we will consider plasmapheresis if the mechanics supervisor recommends. Continue to monitor BMP and we will follow with you. Thank you for allowing me to participate in your patient's care. Overall, prognosis is poor. Horacio Graham MD cc: [id number] TT: 07/23/2016 23:54:33 Confirmation # [id number] Dictation # [id number] mn MTDD
[2016-07-24] MEDS: Piperacill/Tazo 2.25gm in Dex 2.25 GM/50 ML BAG IVPB SCH ×4 (00:03→19:43)
[2016-07-24 00:57] LABS: CK-MB 2.96 ng/mL (0.0-3.38)
[2016-07-24] MEDS: Albuterol-Ipratrop 3 mg / 0.5 (3 ml) UD INH SCH ×4 (01:46→19:34)
[2016-07-24] MEDS: Propofol 10 mg/ml 1,000 MG/100 ML VIAL IV PRN ×4 (02:30→21:45)
[2016-07-24] MEDS: Nitroglycerin 50mg in D5W 50 MG/250 ML BOTTLE IV SCH ×3 (04:05→15:27)
[2016-07-24 05:42] LABS: ABG ALLEN TEST P; ARTERIAL BLOOD GAS HCO3 28.1 mmol/L (21-28); ARTERIAL BLOOD GAS HEMOGLOBIN 9.3 g/dL (11.7-17.4); ARTERIAL BLOOD GAS O2 SAT 100.1 % (95-98); ARTERIAL BLOOD GAS PCO2 34 mm/Hg (35-45); ARTERIAL BLOOD GAS PH 7.51 (7.35-7.45); ARTERIAL BLOOD GAS PO2 359 mm/Hg (80-100); ARTERIAL BLOOD GAS TCO2 28.1 mmol/L (22-28)
[2016-07-24] MEDS: Dexamethasone 4 mg/1 ml IV SCH ×3 (05:46→21:49)
[2016-07-24] MEDS ORDERED: Furosemide 100 MG in Dextrose 5% In Water 90 ML IV SCH (06:00)
[2016-07-24 06:22] LABS: LYMPH # 0.5 K/uL (1.0-4.3); MONO # 0.2 K/uL (0.0-0.8); MONO % 2.7 % (0.0-10.0)
[2016-07-24 06:33] LABS: ALB/GLOB RATIO 1.1 (1.0-2.1); CALCIUM 8.2 mg/dl (8.6-10.4); MAGNESIUM 1.9 mg/dL (1.6-2.3)
[2016-07-24 06:47] LABS: BASO % 0.2 % (0.0-2.0); EOS % 0.1 % (0.0-4.0); HEMOGLOBIN 9.3 g/dL (11.0-16.0); LYMPH % 6.6 % (20.0-40.0); MEAN CELL VOLUME 96.6 fL (81.0-99.0); MEAN CORPUSCULAR HEMOGLOBIN 31.7 pg (27.0-31.0); MEAN CORPUSCULAR HGB CONC 32.9 g/dL (33.0-37.0); MEAN PLATELET VOLUME 10.8 fL (7.2-11.7); NEUT # 6.5 K/uL (1.8-7.0); NEUT % 90.4 % (50.0-75.0); NRBC % 0.1 % (0.0-2.0); PLATELET COUNT 64 K/uL (130-400); RBC 2.93 Mil/uL (3.80-5.20); RED CELL DISTRIBUTION WIDTH 17.3 % (11.5-14.5); WHITE BLOOD COUNT 7.2 K/uL (4.8-10.8)
[2016-07-24 07:18] LABS: PROTHROMBIN TIME 11.2 SECONDS (9.7-12.2)
[2016-07-24] MEDS ORDERED: Magnesium Sulfate 1 gm in D5W 1 GM/100 ML BAG IVPB ONE (08:02)
--- NOTE | 2016-07-24 08:05 | RAD ---
HISTORY: ET Tube eval COMPARISON: 07/23/2016 FINDINGS: LUNGS: The prior diffuse minimally dense space opacities over the right perihilar location less conspicuous some partial clearing is possible. Interval increased aeration here. No increasing dense consolidation . PLEURA: No significant pleural effusion identified, no pneumothorax apparent. CARDIOVASCULAR: Mild cardiomegaly OSSEOUS STRUCTURES: Rior inferior thoracic spondylosis less conspicuous due to technique VISUALIZED UPPER ABDOMEN: Normal. OTHER FINDINGS: Endotracheal tube approximately at 2 3 cm cephalad to the natalia -satisfactory position. NG tube/feeding tube tip in stomach. Right internal jugular vein catheter tip in superior vena cava IMPRESSION: Improved aeration right perihilar lung. No increasing or worsening pulmonary venous congestion or increasing consolidation. No pleural effusions. Support lines as above-satisfactory.
[2016-07-24 08:23] LABS: BANDS 4 % (0-2); LYMPHOCYTE 8 % (20-40); MONOCYTE 3 % (0-10); NEUTROPHIL 85 % (50-75); PLATELET ESTIMATE DECREASED (NORMAL); TOTAL CELLS COUNTED 100
[2016-07-24 08:24] LABS: ANISOCYTOSIS SLIGHT; TOXIC GRANULATION PRESENT
--- NOTE | 2016-07-24 08:34 | CP.PCM.PN ---
Subjective - Date & Time of Evaluation Date of Evaluation: 07/24/16 Time of Evaluation: 08:31 - Subjective Subjective: sedated vent - dependent CXR -+infiltrate +renal trops Plt 64K -pt receiving plt transfusion Hgb dropped from 12.3 from admission to 9.3(07/24/16) Case discussed w/ family Objective - Vital Signs/Intake and Output Vital Signs (last 24 hours): Temp Pulse Resp BP Pulse Ox 98.6 F 74 20 208/122 H 100 07/24/16 04:00 07/24/16 04:05 07/24/16 04:05 07/24/16 05:48 07/24/16 04:05 Intake and Output: 07/24/16 07/24/16 06:59 18:59 Intake Total 2196.4 166.7 Output Total 815 50 Balance 1381.4 116.7 - Medications Medications: Current Medications Albuterol/Ipratropium (Duoneb 3 Mg/0.5 Mg (3 Ml) Ud) 3 ml INH RQ6 [facility]ESS[facility] Last Admin: 07/24/16 01:46 Dose: 3 ml Dexamethasone (Decadron Inj) 4 mg IV Q8 JESSI Last Admin: 07/24/16 05:46 Dose: 4 mg Nitroglycerin/Dextrose (Nitroglycerin 50 Mg/250 Ml D5w) 50 mg in 250 mls @ 1.5 mls/hr IV .Q24H JESSI; 5 MCG/MIN PRN Reason: Protocol Last Admin: 07/24/16 04:05 Dose: 150 mcg/min, 45 mls/hr Propofol (Diprivan) 1,000 mg in 100 mls @ 20.727 mls/hr IV .Q4H50M PRN; Protocol; 47.6 MCG/KG/MIN PRN Reason: TITRATE PER MD ORDER Last Admin: 07/24/16 07:37 Dose: 47.6 mcg/kg/min, 20.727 mls/hr Piperacillin Sod/Tazobactam Sod (Zosyn 2.25 Gm Iv Premix) 2.25 gm in 50 mls @ 100 mls/hr IVPB Q6H [facility]ESSI Last Admin: 07/24/16 06:00 Dose: 100 mls/hr Furosemide 100 mg/ Dextrose 100 mls @ 5 mls/hr IV .Q20H JESSI; 5 MG/HR PRN Reason: Protocol Last Admin: 07/24/16 05:48 Dose: 5 mls/hr - Labs Labs: 07/24/16 06:12 07/24/16 06:09 PT 11.2 SECONDS (9.7-12.2) 07/24/16 06:58 INR 1.0 07/24/16 06:58 APTT 25 SECONDS (21-34) 07/24/16 06:58 - Constitutional Appears: Toxic - Head Exam Head Exam: NORMAL INSPECTION - Eye Exam Eye Exam: absent: Scleral icterus Pupil Exam: NORMAL ACCOMODATION - ENT Exam ENT Exam: Mucous Membranes Moist - Neck Exam Neck Exam: Full ROM. absent: Lymphadenopathy - Respiratory Exam Respiratory Exam: Rhonchi - GI/Abdominal Exam GI & Abdominal Exam: Soft. absent: Tenderness - Extremities Exam Extremities Exam: Calf Tenderness. absent: Full ROM - Neurological Exam Additional comments: sedated Assessment and Plan - Assessment and Plan (Free Text) Assessment: Acute pumonary edema 2ndary to Dilated cardiomyopathy Pneumonia TTP Acute renal failure Anemia Plan: Cont diuresis Cont Abtx ID consult w/ Dr Richter Poor prognosis DNR discussed w/ family - undecided
--- NOTE | 2016-07-24 08:48 | CP.PCM.PN ---
Subjective - Date & Time of Evaluation Date of Evaluation: 07/22/16 Time of Evaluation: 08:45 - Subjective Subjective: Fluctuating BP Vague abdominal discomfort very poor historian Renal/Heme consult pending Objective - Vital Signs/Intake and Output Vital Signs (last 24 hours): Temp Pulse Resp BP Pulse Ox 98.6 F 74 20 208/122 H 100 07/24/16 04:00 07/24/16 04:05 07/24/16 04:05 07/24/16 05:48 07/24/16 04:05 Intake and Output: 07/24/16 07/24/16 06:59 18:59 Intake Total 2196.4 166.7 Output Total 815 50 Balance 1381.4 116.7 - Medications Medications: Current Medications Albuterol/Ipratropium (Duoneb 3 Mg/0.5 Mg (3 Ml) Ud) 3 ml INH RQ6 [facility] Last Admin: 07/24/16 01:46 Dose: 3 ml Dexamethasone (Decadron Inj) 4 mg IV Q8 JESSI Last Admin: 07/24/16 05:46 Dose: 4 mg Nitroglycerin/Dextrose (Nitroglycerin 50 Mg/250 Ml D5w) 50 mg in 250 mls @ 1.5 mls/hr IV .Q24H JESSI; 5 MCG/MIN PRN Reason: Protocol Last Admin: 07/24/16 04:05 Dose: 150 mcg/min, 45 mls/hr Propofol (Diprivan) 1,000 mg in 100 mls @ 20.727 mls/hr IV .Q4H50M PRN; Protocol; 47.6 MCG/KG/MIN PRN Reason: TITRATE PER MD ORDER Last Admin: 07/24/16 07:37 Dose: 47.6 mcg/kg/min, 20.727 mls/hr Piperacillin Sod/Tazobactam Sod (Zosyn 2.25 Gm Iv Premix) 2.25 gm in 50 mls @ 100 mls/hr IVPB Q6H [facility] Last Admin: 07/24/16 06:00 Dose: 100 mls/hr Furosemide 100 mg/ Dextrose 100 mls @ 5 mls/hr IV .Q20H JESSI; 5 MG/HR PRN Reason: Protocol Last Admin: 07/24/16 05:48 Dose: 5 mls/hr - Labs Labs: 07/24/16 06:12 07/24/16 06:09 PT 11.2 SECONDS (9.7-12.2) 07/24/16 06:58 INR 1.0 07/24/16 06:58 APTT 25 SECONDS (21-34) 07/24/16 06:58 - Constitutional Appears: Non-toxic - Head Exam Head Exam: NORMAL INSPECTION - Eye Exam Eye Exam: absent: Scleral icterus - ENT Exam ENT Exam: Mucous Membranes Moist - Neck Exam Neck Exam: Full ROM. absent: Lymphadenopathy - Respiratory Exam Respiratory Exam: NORMAL BREATHING PATTERN - GI/Abdominal Exam GI & Abdominal Exam: Soft. absent: Tenderness - Extremities Exam Extremities Exam: absent: Calf Tenderness, Pedal Edema - Neurological Exam Neurological Exam: Altered Assessment and Plan - Assessment and Plan (Free Text) Assessment: Altered mental status Mild acute renal failure Thrombocytopenia Senile dementia Plan: Slow hydration Monitor platelet count and bun/creat
--- NOTE | 2016-07-24 10:34 | CP.PCM.PN ---
<Dmitry Kebede - Last Filed: 07/24/16 10:31> Subjective - Date & Time of Evaluation Date of Evaluation: 07/24/16 Time of Evaluation: 10:31 - Subjective Subjective: Cardiology Progress Note for Dr. Jules Pt seen and examined at bedside. Pt with no acute events overnight. Pt currently receiving blood transfusion. Pt remains intubated at this time. Objective - Vital Signs/Intake and Output Vital Signs (last 24 hours): Temp Pulse Resp BP Pulse Ox 97.7 F 99 H 18 160/85 H 100 07/24/16 08:00 07/24/16 09:44 07/24/16 09:44 07/24/16 09:44 07/24/16 09:44 Intake and Output: 07/24/16 07/24/16 06:59 18:59 Intake Total 2196.4 616.8 Output Total 815 700 Balance 1381.4 -83.2 - Medications Medications: Current Medications Albuterol/Ipratropium (Duoneb 3 Mg/0.5 Mg (3 Ml) Ud) 3 ml INH RQ6 [facility] Last Admin: 07/24/16 01:46 Dose: 3 ml Dexamethasone (Decadron Inj) 4 mg IV Q8 JESSI Last Admin: 07/24/16 05:46 Dose: 4 mg Nitroglycerin/Dextrose (Nitroglycerin 50 Mg/250 Ml D5w) 50 mg in 250 mls @ 1.5 mls/hr IV .Q24H JESSI; 5 MCG/MIN PRN Reason: Protocol Last Admin: 07/24/16 09:13 Dose: 150 mcg/min, 45 mls/hr Propofol (Diprivan) 1,000 mg in 100 mls @ 20.727 mls/hr IV .Q4H50M PRN; Protocol; 47.6 MCG/KG/MIN PRN Reason: TITRATE PER MD ORDER Last Admin: 07/24/16 07:37 Dose: 47.6 mcg/kg/min, 20.727 mls/hr Piperacillin Sod/Tazobactam Sod (Zosyn 2.25 Gm Iv Premix) 2.25 gm in 50 mls @ 100 mls/hr IVPB Q6H JESSI Last Admin: 07/24/16 06:00 Dose: 100 mls/hr Furosemide 100 mg/ Dextrose 100 mls @ 5 mls/hr IV .Q20H JESSI; 5 MG/HR PRN Reason: Protocol Last Admin: 07/24/16 05:48 Dose: 5 mls/hr - Labs Labs: 07/24/16 06:12 07/24/16 06:09 PT 11.2 SECONDS (9.7-12.2) 07/24/16 06:58 INR 1.0 07/24/16 06:58 APTT 25 SECONDS (21-34) 07/24/16 06:58 - Constitutional Appears: Toxic, In Acute Distress - Head Exam Head Exam: ATRAUMATIC, NORMAL INSPECTION, NORMOCEPHALIC - ENT Exam ENT Exam: Mucous Membranes Dry - Respiratory Exam Respiratory Exam: Decreased Breath Sounds, Rhonchi - Cardiovascular Exam Cardiovascular Exam: RRR, +S1, +S2 - GI/Abdominal Exam GI & Abdominal Exam: Soft, Normal Bowel Sounds. absent: Tenderness - Extremities Exam Extremities Exam: Normal Inspection. absent: Pedal Edema - Neurological Exam Neurological Exam: absent: Alert, Awake Additional comments: Intubated - Skin Skin Exam: Intact, Normal Color, Warm Assessment and Plan (1) CHF (congestive heart failure) Assessment & Plan: Continue current medical management Life vest ordered for pt EF: 10% Continue Lasix and Nitroglycerin drips Status: Acute <Geo Jules - Last Filed: 07/31/16 15:25> Objective - Vital Signs/Intake and Output Vital Signs (last 24 hours): Temp Pulse Resp BP Pulse Ox 98.3 F 74 15 135/70 96 07/31/16 13:15 07/31/16 13:00 07/31/16 13:00 07/31/16 12:57 07/31/16 13:00 Intake and Output: 07/31/16 07/31/16 06:59 18:59 Intake Total 687.5 287.5 Output Total 240 40 Balance 447.5 247.5 - Medications Medications: Current Medications Albuterol/Ipratropium (Duoneb 3 Mg/0.5 Mg (3 Ml) Ud) 3 ml INH RQ6 [facility] Last Admin: 07/31/16 14:46 Dose: 3 ml Carvedilol (Coreg) 3.125 mg PO BID [facility] Last Admin: 07/31/16 09:51 Dose: Not Given Dexamethasone (Decadron Inj) 4 mg IV Q12 [facility] Last Admin: 07/31/16 09:49 Dose: 4 mg Famotidine (Pepcid) 20 mg PO DAILY [facility] Last Admin: 07/31/16 09:49 Dose: 20 mg Furosemide (Lasix) 60 mg IVP Q12 [facility] Last Admin: 07/29/16 23:09 Dose: 60 mg Hydralazine HCl (Apresoline) 10 mg PO Q8 [facility] Last Admin: 07/31/16 13:34 Dose: 10 mg Piperacillin Sod/Tazobactam Sod (Zosyn 2.25 Gm Iv Premix) 2.25 gm in 50 mls @ 100 mls/hr IVPB Q6H [facility] Last Admin: 07/31/16 13:30 Dose: 100 mls/hr Metronidazole (Flagyl) 500 mg in 100 mls @ 100 mls/hr IVPB Q8 [facility] Last Admin: 07/31/16 14:13 Dose: 100 mls/hr Dexmedetomidine HCl 200 mcg/ (Sodium Chloride) 50 mls @ 3.47 mls/hr IV TITR PRN ; Protocol; 0.2 MCG/KG/HR PRN Reason: Sedation Last Admin: 07/30/16 09:05 Dose: 0.08 mcg/kg/hr, 1.5 mls/hr Insulin Aspart (Novolog) 0 unit SC Q6H JESSI PRN Reason: Protocol Last Admin: 07/31/16 12:19 Dose: Not Given Insulin Glargine (Lantus) 10 unit SC HS [facility] Last Admin: 07/30/16 21:32 Dose: 10 units Midazolam HCl (Versed Inj) 2 mg IVP Q3 PRN Last Admin: 07/28/16 17:23 Dose: 2 mg Nifedipine (Procardia) 10 mg PO BID [facility] Last Admin: 07/31/16 09:52 Dose: Not Given - Labs Labs: 07/31/16 06:27 07/31/16 06:27 PT 11.4 SECONDS (9.7-12.2) 07/29/16 06:09 INR 1.0 07/29/16 06:09 APTT 28 SECONDS (21-34) 07/29/16 06:09 Attending/Attestation - Attestation I have personally seen and examined this patient.: Yes I have fully participated in the care of the patient.: Yes I have reviewed all pertinent clinical information, including history, physical exam and plan: Yes Notes (Text): 07/31/16 15:25 Pt transfusion in progress watch fluids ef 15 percent
--- NOTE | 2016-07-24 10:35 | CP.PCM.PN ---
Subjective - Date & Time of Evaluation Date of Evaluation: 07/24/16 Time of Evaluation: 10:32 - Subjective Subjective: pt seen and examined, follow up consult is dictated #[id number] d/w dr. Lopez, agreed for TTP case d/w intesivist in rounds, and RN d/w pt 's daughter on the phone rachna martinez and pt's grand daughter, grand son at bed side agreed for TTP critical care time spent for pt care is 50 minutes Objective - Vital Signs/Intake and Output Vital Signs (last 24 hours): Temp Pulse Resp BP Pulse Ox 97.7 F 99 H 18 160/85 H 100 07/24/16 08:00 07/24/16 09:44 07/24/16 09:44 07/24/16 09:44 07/24/16 09:44 Intake and Output: 07/24/16 07/24/16 06:59 18:59 Intake Total 2196.4 616.8 Output Total 815 700 Balance 1381.4 -83.2 - Medications Medications: Current Medications Albuterol/Ipratropium (Duoneb 3 Mg/0.5 Mg (3 Ml) Ud) 3 ml INH RQ6 [facility] Last Admin: 07/24/16 01:46 Dose: 3 ml Dexamethasone (Decadron Inj) 4 mg IV Q8 [facility] Last Admin: 07/24/16 05:46 Dose: 4 mg Nitroglycerin/Dextrose (Nitroglycerin 50 Mg/250 Ml D5w) 50 mg in 250 mls @ 1.5 mls/hr IV .Q24H JESSI; 5 MCG/MIN PRN Reason: Protocol Last Admin: 07/24/16 09:13 Dose: 150 mcg/min, 45 mls/hr Propofol (Diprivan) 1,000 mg in 100 mls @ 20.727 mls/hr IV .Q4H50M PRN; Protocol; 47.6 MCG/KG/MIN PRN Reason: TITRATE PER MD ORDER Last Admin: 07/24/16 07:37 Dose: 47.6 mcg/kg/min, 20.727 mls/hr Piperacillin Sod/Tazobactam Sod (Zosyn 2.25 Gm Iv Premix) 2.25 gm in 50 mls @ 100 mls/hr IVPB Q6H [facility] Last Admin: 07/24/16 06:00 Dose: 100 mls/hr Furosemide 100 mg/ Dextrose 100 mls @ 5 mls/hr IV .Q20H JESSI; 5 MG/HR PRN Reason: Protocol Last Admin: 07/24/16 05:48 Dose: 5 mls/hr - Labs Labs: 07/24/16 06:12 07/24/16 06:09 PT 11.2 SECONDS (9.7-12.2) 07/24/16 06:58 INR 1.0 07/24/16 06:58 APTT 25 SECONDS (21-34) 07/24/16 06:58
--- NOTE | 2016-07-24 11:10 | CON ---
DATE: 07/24/2016 This is an 80-year-old woman with TTP complicated by renal insufficiency, thrombocytopenia and altere d mental status and requiring ventilatory support. The patient is getting fresh frozen plasma at pre sent. The platelet count this morning is basically the same, about 64. The creatinine is the same a s well at about 3.5. The issue is whether we can, besides giving fresh frozen plasma, do plasma exch demetria. The purpose of the plasma exchange would to be able to deliver the fresh frozen plasma in high amounts of volume without causing her to go into further CHF. If she can tolerate the fresh frozen plasma the way we are giving it, we can delay the plasmapheresis, but if at all possible, it is [place] r treatment to do the plasmapheresis, then give her fresh frozen plasma through that. So at present, she is basically unchanged. Family member is sitting with her at the bedside, ____. She is the sis ter, ____ dangerous her sister is right now. PLAN: Continue fresh frozen plasma. Sudhir Lopez MD cc: [id number] TT: 07/24/2016 11:09:40 Confirmation # [id number] Dictation # [id number] tn
--- NOTE | 2016-07-24 14:24 | CP.CCUPN ---
<Vineet Flores - Last Filed: 07/24/16 14:21> CCU Subjective - Physician Review Subjective (Free Text): 07/24/16 14:21 Patient seen and examined at the bedside. No acute distress. No acute events overnight. The patient remains intubated. The patient will have plasmaphoresis today for TTP. Today on rounds, the patient's magnesium was replaced. Dr. Richter was also consulted for ID. The patient will have plasmaphoresis this afternoon. CCU Objective - Vital Signs / Intake & Output Intake and Output (Last 8hrs): Intake & Output 07/23/16 07/24/16 07/24/16 22:59 06:59 14:59 Intake Total 1340.6 1372.6 716.8 Output Total 560 535 700 Balance 780.6 837.6 16.8 Intake: IV 600 350 450 Intake, IV Amount 533.6 583.6 266.8 Left Forearm 133.6 133.6 66.8 Right Antecubital 50 Right Distal Port 360 360 180 Internal Jugular Right Proximal Port 40 40 20 Internal Jugular Oral 0 Blood Product 207 439 Output: Urine 560 535 700 Urine, Voided 560 535 700 - Physical Exam Head: Positive for: Atraumatic, Normocephalic Mouth: Positive for: Moist Mucous Membranes Respiratory/Chest: Positive for: Good Air Exchange, Rhonchi. Negative for: Accessory Muscle Use Cardiovascular: Positive for: Regular Rate and Rhythm, Normal S1, S2. Negative for: Murmurs Abdomen: Positive for: Normal Bowel Sounds. Negative for: Tenderness, Distention Upper Extremity: Positive for: Normal Inspection. Negative for: Cyanosis, Edema Lower Extremity: Positive for: Normal Inspection. Negative for: Edema Skin: Positive for: Warm, Dry, Rashes (resolving) - Medications Active Medications: Active Medications Generic Name Dose Route Start Last Admin Trade Name Freq PRN Reason Stop Dose Admin Acetaminophen 650 mg 07/24/16 15:00 Tylenol 650 Mg Supp NC ONCE JESSI Albuterol/Ipratropium 3 ml 07/23/16 08:00 07/24/16 08:05 Duoneb 3 Mg/0.5 Mg (3 Ml) Ud INH 3 ml RQ6 JESSI Administration Calcium Carbonate 500 mg 07/24/16 15:00 Oscal PO ONCE JESSI Carvedilol 3.125 mg 07/24/16 18:00 Coreg PO BID JESSI Dexamethasone 4 mg 07/23/16 14:00 07/24/16 13:41 Decadron Inj IV 4 mg Q8 JESSI Administration Diphenhydramine HCl 25 mg 07/24/16 15:00 Benadryl IVP ONCE JESSI Furosemide 20 mg 07/24/16 22:00 Lasix IVP Q12 JESSI Heparin Sodium (Porcine) 5,000 units 07/24/16 14:00 07/24/16 13:46 Heparin SC 5,000 units Q8 JESSI Administration Hydrocortisone Sodium Succinate 50 mg 07/24/16 15:00 Solu-Cortef IV ONCE JESSI Nitroglycerin/Dextrose 50 mg in 250 mls @ 1.5 mls/hr 07/23/16 05:15 07/24/16 09:13 Nitroglycerin 50 Mg/250 Ml D5w IV 150 mcg/min .Q24H JESSI 45 mls/hr Protocol Administration 5 MCG/MIN Propofol 1,000 mg in 100 mls @ 20.727 mls/hr 07/23/16 08:58 07/24/16 13:39 Diprivan IV 47.6 mcg/kg/min .Q4H50M PRN 20.727 mls/hr TITRATE PER MD ORDER Administration Protocol 47.6 MCG/KG/MIN Piperacillin Sod/Tazobactam Sod 2.25 gm in 50 mls @ 100 mls/hr 07/23/16 13:00 07/24/16 06:00 Zosyn 2.25 Gm Iv Premix IVPB 100 mls/hr Q6H JESSI Administration Calcium Gluconate 4.65 meq/ 110 mls @ 100 mls/hr 07/24/16 15:00 Sodium Chloride IV ONCE JESSI Pantoprazole Sodium 40 mg 07/25/16 10:00 Protonix Inj IVP DAILY JESSI - Patient Studies Lab Studies: Lab Studies 07/24/16 07/24/16 07/24/16 Range/Units 06:58 06:12 06:09 WBC 7.2 (4.8-10.8) K/uL RBC 2.93 L (3.80-5.20) Mil/uL Hgb 9.3 L D (11.0-16.0) g/dL Hct 28.3 L (34.0-47.0) % MCV 96.6 D (81.0-99.0) fL MCH 31.7 H (27.0-31.0) pg MCHC 32.9 L (33.0-37.0) g/dL RDW 17.3 H (11.5-14.5) % Plt Count 64 L D (130-400) K/uL MPV 10.8 (7.2-11.7) fL Neut % (Auto) 90.4 H (50.0-75.0) % Lymph % (Auto) 6.6 L (20.0-40.0) % [place] % (Auto) 2.7 (0.0-10.0) % Eos % (Auto) 0.1 (0.0-4.0) % Baso % (Auto) 0.2 (0.0-2.0) % Neut # 6.5 (1.8-7.0) K/uL Lymph # 0.5 L (1.0-4.3) K/uL [place] # 0.2 (0.0-0.8) K/uL Eos # 0.0 (0.0-0.7) K/uL Baso # 0.0 (0.0-0.2) K/uL Neutrophils % (Manual) 85 H (50-75) % Band Neutrophils % 4 H (0-2) % Lymphocytes % (Manual) 8 L (20-40) % Monocytes % (Manual) 3 (0-10) % Toxic Granulation Present Platelet Estimate Decreased L (NORMAL) Anisocytosis (manual) Slight PT 11.2 (9.7-12.2) SECONDS INR 1.0 APTT 25 (21-34) SECONDS Puncture Site pCO2 (35-45) mm/Hg pO2 (80-100) mm/Hg HCO3 (21-28) mmol/L ABG pH (7.35-7.45) ABG Total CO2 (22-28) mmol/L ABG O2 Saturation (95-98) % ABG Base Excess (-2.0-3.0) mmol/L ABG Hemoglobin (11.7-17.4) g/dL ABG Carboxyhemoglobin (0.5-1.5) % POC ABG HHb (Measured) (0.0-5.0) % ABG Methemoglobin (0.0-3.0) % Braxton Test A-a O2 Difference mm/Hg Respiratory Index Hgb O2 Saturation (95.0-98.0) % Mechanical Rate FiO2 % Tidal Volume PEEP Sodium 132 (132-148) mmol/L Potassium 3.8 (3.6-5.2) mmol/L Chloride 94 L (98-107) mmol/L Carbon Dioxide 25 (22-30) mmol/L Anion Gap 17 (10-20) BUN 42 H (7-17) mg/dL Creatinine 3.5 H (0.7-1.2) MG/DL Est GFR ( Amer) 15 Est GFR (Non-Af Amer) 13 Random Glucose 183 H (65-105) mg/dL Calcium 8.2 L (8.6-10.4) mg/dl Phosphorus 4.3 (2.5-4.5) mg/dL Magnesium 1.9 (1.6-2.3) mg/dL Total Bilirubin 1.1 (0.2-1.3) mg/dL AST 33 (14-36) U/L ALT 41 (9-52) U/L Alkaline Phosphatase 55 (38-126) U/L Total Creatine Kinase (30-135) U/L CK-MB (Mass) (0.0-3.38) ng/mL Troponin I, Quant (0.00-0.120) ng/mL Total Protein 5.7 L (6.3-8.3) g/dL Albumin 3.0 L (3.5-5.0) g/dL Globulin 2.7 (2.2-3.9) gm/dL Albumin/Globulin Ratio 1.1 (1.0-2.1) Rheum Arthritis Panel (NEGATIVE) 07/24/16 07/24/16 07/23/16 Range/Units 04:23 00:09 15:53 WBC (4.8-10.8) K/uL RBC (3.80-5.20) Mil/uL Hgb (11.0-16.0) g/dL Hct (34.0-47.0) % MCV (81.0-99.0) fL MCH (27.0-31.0) pg MCHC (33.0-37.0) g/dL RDW (11.5-14.5) % Plt Count (130-400) K/uL MPV (7.2-11.7) fL Neut % (Auto) (50.0-75.0) % Lymph % (Auto) (20.0-40.0) % [place] % (Auto) (0.0-10.0) % Eos % (Auto) (0.0-4.0) % Baso % (Auto) (0.0-2.0) % Neut # (1.8-7.0) K/uL Lymph # (1.0-4.3) K/uL [place] # (0.0-0.8) K/uL Eos # (0.0-0.7) K/uL Baso # (0.0-0.2) K/uL Neutrophils % (Manual) (50-75) % Band Neutrophils % (0-2) % Lymphocytes % (Manual) (20-40) % Monocytes % (Manual) (0-10) % Toxic Granulation Platelet Estimate (NORMAL) Anisocytosis (manual) PT (9.7-12.2) SECONDS INR APTT (21-34) SECONDS Puncture Site L brach pCO2 34 L (35-45) mm/Hg pO2 359 H (80-100) mm/Hg HCO3 28.1 H (21-28) mmol/L ABG pH 7.51 H (7.35-7.45) ABG Total CO2 28.1 H (22-28) mmol/L ABG O2 Saturation 100.1 H (95-98) % ABG Base Excess 4.0 H (-2.0-3.0) mmol/L ABG Hemoglobin 9.3 L (11.7-17.4) g/dL ABG Carboxyhemoglobin 1.4 (0.5-1.5) % POC ABG HHb (Measured) -0.1 L (0.0-5.0) % ABG Methemoglobin 1.7 (0.0-3.0) % Braxton Test P A-a O2 Difference 312.0 mm/Hg Respiratory Index 0.9 Hgb O2 Saturation 97.0 (95.0-98.0) % Mechanical Rate 20 FiO2 100.0 % Tidal Volume 450 PEEP 10 Sodium (132-148) mmol/L Potassium (3.6-5.2) mmol/L Chloride (98-107) mmol/L Carbon Dioxide (22-30) mmol/L Anion Gap (10-20) BUN (7-17) mg/dL Creatinine (0.7-1.2) MG/DL Est GFR ( Amer) Est GFR (Non-Af Amer) Random Glucose (65-105) mg/dL Calcium (8.6-10.4) mg/dl Phosphorus (2.5-4.5) mg/dL Magnesium (1.6-2.3) mg/dL Total Bilirubin (0.2-1.3) mg/dL AST (14-36) U/L ALT (9-52) U/L Alkaline Phosphatase (38-126) U/L Total Creatine Kinase 50 69 (30-135) U/L CK-MB (Mass) 2.96 4.65 H (0.0-3.38) ng/mL Troponin I, Quant 0.8760 H* 1.0300 H* (0.00-0.120) ng/mL Total Protein (6.3-8.3) g/dL Albumin (3.5-5.0) g/dL Globulin (2.2-3.9) gm/dL Albumin/Globulin Ratio (1.0-2.1) Rheum Arthritis Panel (NEGATIVE) 07/23/16 Range/Units 13:34 WBC (4.8-10.8) K/uL RBC (3.80-5.20) Mil/uL Hgb (11.0-16.0) g/dL Hct (34.0-47.0) % MCV (81.0-99.0) fL MCH (27.0-31.0) pg MCHC (33.0-37.0) g/dL RDW (11.5-14.5) % Plt Count (130-400) K/uL MPV (7.2-11.7) fL Neut % (Auto) (50.0-75.0) % Lymph % (Auto) (20.0-40.0) % [place] % (Auto) (0.0-10.0) % Eos % (Auto) (0.0-4.0) % Baso % (Auto) (0.0-2.0) % Neut # (1.8-7.0) K/uL Lymph # (1.0-4.3) K/uL [place] # (0.0-0.8) K/uL Eos # (0.0-0.7) K/uL Baso # (0.0-0.2) K/uL Neutrophils % (Manual) (50-75) % Band Neutrophils % (0-2) % Lymphocytes % (Manual) (20-40) % Monocytes % (Manual) (0-10) % Toxic Granulation Platelet Estimate (NORMAL) Anisocytosis (manual) PT (9.7-12.2) SECONDS INR APTT (21-34) SECONDS Puncture Site pCO2 (35-45) mm/Hg pO2 (80-100) mm/Hg HCO3 (21-28) mmol/L ABG pH (7.35-7.45) ABG Total CO2 (22-28) mmol/L ABG O2 Saturation (95-98) % ABG Base Excess (-2.0-3.0) mmol/L ABG Hemoglobin (11.7-17.4) g/dL ABG Carboxyhemoglobin (0.5-1.5) % POC ABG HHb (Measured) (0.0-5.0) % ABG Methemoglobin (0.0-3.0) % Braxton Test A-a O2 Difference mm/Hg Respiratory Index Hgb O2 Saturation (95.0-98.0) % Mechanical Rate FiO2 % Tidal Volume PEEP Sodium (132-148) mmol/L Potassium (3.6-5.2) mmol/L Chloride (98-107) mmol/L Carbon Dioxide (22-30) mmol/L Anion Gap (10-20) BUN (7-17) mg/dL Creatinine (0.7-1.2) MG/DL Est GFR ( Amer) Est GFR (Non-Af Amer) Random Glucose (65-105) mg/dL Calcium (8.6-10.4) mg/dl Phosphorus (2.5-4.5) mg/dL Magnesium (1.6-2.3) mg/dL Total Bilirubin (0.2-1.3) mg/dL AST (14-36) U/L ALT (9-52) U/L Alkaline Phosphatase (38-126) U/L Total Creatine Kinase (30-135) U/L CK-MB (Mass) (0.0-3.38) ng/mL Troponin I, Quant (0.00-0.120) ng/mL Total Protein (6.3-8.3) g/dL Albumin (3.5-5.0) g/dL Globulin (2.2-3.9) gm/dL Albumin/Globulin Ratio (1.0-2.1) Rheum Arthritis Panel Negative (NEGATIVE) Laboratory Results - last 24 hr 07/23/16 07/23/16 07/24/16 13:34 15:53 00:09 WBC RBC Hgb Hct MCV MCH MCHC RDW Plt Count MPV Neut % (Auto) Lymph % (Auto) [place] % (Auto) Eos % (Auto) Baso % (Auto) Neut # Lymph # [place] # Eos # Baso # Neutrophils % (Manual) Band Neutrophils % Lymphocytes % (Manual) Monocytes % (Manual) Toxic Granulation Platelet Estimate Anisocytosis (manual) PT INR APTT Puncture Site pCO2 pO2 HCO3 ABG pH ABG Total CO2 ABG O2 Saturation ABG Base Excess ABG Hemoglobin ABG Carboxyhemoglobin POC ABG HHb (Measured) ABG Methemoglobin Braxton Test A-a O2 Difference Respiratory Index Hgb O2 Saturation Mechanical Rate FiO2 Tidal Volume PEEP Sodium Potassium Chloride Carbon Dioxide Anion Gap BUN Creatinine Est GFR ( Amer) Est GFR (Non-Af Amer) Random Glucose Calcium Phosphorus Magnesium Total Bilirubin AST ALT Alkaline Phosphatase Total Creatine Kinase 69 50 CK-MB (Mass) 4.65 H 2.96 Troponin I, Quant 1.0300 H* 0.8760 H* Total Protein Albumin Globulin Albumin/Globulin Ratio Rheum Arthritis Panel Negative 07/24/16 07/24/16 07/24/16 04:23 06:09 06:12 WBC 7.2 RBC 2.93 L Hgb 9.3 L D Hct 28.3 L MCV 96.6 D MCH 31.7 H MCHC 32.9 L RDW 17.3 H Plt Count 64 L D MPV 10.8 Neut % (Auto) 90.4 H Lymph % (Auto) 6.6 L [place] % (Auto) 2.7 Eos % (Auto) 0.1 Baso % (Auto) 0.2 Neut # 6.5 Lymph # 0.5 L [place] # 0.2 Eos # 0.0 Baso # 0.0 Neutrophils % (Manual) 85 H Band Neutrophils % 4 H Lymphocytes % (Manual) 8 L Monocytes % (Manual) 3 Toxic Granulation Present Platelet Estimate Decreased L Anisocytosis (manual) Slight PT INR APTT Puncture Site L brach pCO2 34 L pO2 359 H HCO3 28.1 H ABG pH 7.51 H ABG Total CO2 28.1 H ABG O2 Saturation 100.1 H ABG Base Excess 4.0 H ABG Hemoglobin 9.3 L ABG Carboxyhemoglobin 1.4 POC ABG HHb (Measured) -0.1 L ABG Methemoglobin 1.7 Braxton Test P A-a O2 Difference 312.0 Respiratory Index 0.9 Hgb O2 Saturation 97.0 Mechanical Rate 20 FiO2 100.0 Tidal Volume 450 PEEP 10 Sodium 132 Potassium 3.8 Chloride 94 L Carbon Dioxide 25 Anion Gap 17 BUN 42 H Creatinine 3.5 H Est GFR ( Amer) 15 Est GFR (Non-Af Amer) 13 Random Glucose 183 H Calcium 8.2 L Phosphorus 4.3 Magnesium 1.9 Total Bilirubin 1.1 AST 33 ALT 41 Alkaline Phosphatase 55 Total Creatine Kinase CK-MB (Mass) Troponin I, Quant Total Protein 5.7 L Albumin 3.0 L Globulin 2.7 Albumin/Globulin Ratio 1.1 Rheum Arthritis Panel 07/24/16 06:58 WBC RBC Hgb Hct MCV MCH MCHC RDW Plt Count MPV Neut % (Auto) Lymph % (Auto) [place] % (Auto) Eos % (Auto) Baso % (Auto) Neut # Lymph # [place] # Eos # Baso # Neutrophils % (Manual) Band Neutrophils % Lymphocytes % (Manual) Monocytes % (Manual) Toxic Granulation Platelet Estimate Anisocytosis (manual) PT 11.2 INR 1.0 APTT 25 Puncture Site pCO2 pO2 HCO3 ABG pH ABG Total CO2 ABG O2 Saturation ABG Base Excess ABG Hemoglobin ABG Carboxyhemoglobin POC ABG HHb (Measured) ABG Methemoglobin Braxton Test A-a O2 Difference Respiratory Index Hgb O2 Saturation Mechanical Rate FiO2 Tidal Volume PEEP Sodium Potassium Chloride Carbon Dioxide Anion Gap BUN Creatinine Est GFR ( Amer) Est GFR (Non-Af Amer) Random Glucose Calcium Phosphorus Magnesium Total Bilirubin AST ALT Alkaline Phosphatase Total Creatine Kinase CK-MB (Mass) Troponin I, Quant Total Protein Albumin Globulin Albumin/Globulin Ratio Rheum Arthritis Panel Review of Systems - Review of Systems Systems not reviewed;Unavailable: Intubated Critical Care Progress Note - Vent Settings MODE:: PRVC TIDAL VOLUME:: 450 RESP RATE:: 20 FIO2:: 60 PEEP:: 5 - Extremities/Vascular Does the Patient have a Central Venous Catheter?: Yes Insertion Site: Internal Jugular Vein (right) Does the Patient need a Central Venous Catheter?: Yes Does the Patient have a Sharp Catheter?: Yes Does the Patient need a Sharp Catheter?: Yes Catheter Insertion Criteria: Patient requires prolonged immobilization - Prophylaxis GI Prophylaxis GI: PPI - Prophylaxis DVT Prophylaxis DVT: Heparin SQ Assessment/Plan (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 Elevated troponin could be secondary to renal failure Echocardiogram showed ejection fraction of 10% EPS cardiology evaluation for LifeVest - Assessment and Plan (Free Text) Plan: Patient status: SKAGWAY II score: 32 (76%) Neuro: Intubated and Sedated Cardiovascular: -CHF (EF: 10%) -Dr. Jules on board- ordered life vest for patient -continue Lasix 20mg IVP Q12h -continue Nitro 50mg drip 45mls/hr -07/23/16 ECHO: LVEF of 10%; pending official read Pulmonary: -Intubated (20 bpm; 450 vte; 60 FiO2) with propofol for sedation -Duoneb 3ml INH RQ6 -Acute pulmonary edema likely 2/2 to dilated cardiomyopathy/CHF -Lasix 20mg IVP Q12h Imaging: -07/24/16 CXR: Improved aeration right perihilar lung. No increasing or worsening pulmonary venous congestion or increasing consolidation. No pleural effusions. Support lines as above-satisfactory. -07/23/16 CXR: Right triple lumen catheter extending in to proximal right SVC. No evidence of postprocedure pneumothorax. Other lines and tubes stable position. Persistent consolidative changes throughout the right lung as well as the left infrahilar region. -07/23/16 CXR: In situ ETT, the tip of which lies approximately 5.7 cm above [place]. NGT is present, the tip of which is not seen with certainty however distal aspect appears to lie just inferior to the EG junction. Repeat chest x- ray centered at the level of the hemidiaphragms could be performed to assess exact location of the NGT tip. Diffuse bilateral airspace disease with more dense opacity in the right mid to lower lung field. This could represent pneumonia and/or asymmetric pulmonary edema/CHF. -07/20/16 CXR: Patchy increased markings at the left lung base. Diffuse increased interstitial lung markings. Gastrointestinal: Tube feeds Imaging: -07/20/16 CT Abd/pelvis: 1. No acute findings 2. Hypoventilatory changes at the lung bases. 3. The heart is moderately enlarged and there is a small amount of paracardial fluid/thickening. 4. Hiatal hernia. 5. Nonspecific hazy change noted within the mesenteric fat with mild anasarca. 6. Scattered colonic diverticula Hematology: -07/23/16 blood smear: positive for spherocytes and 2-4 schistocytes on smear -Thrombocytopenia likely 2/2 to TTP due to unknown etiology -Dr. Lopez on board -continue with FFP, followed by plasmapheresis once condition stabilizes -Heparin 5000 units SC Q8 -Anemia -Dr. Joy following Endocrine: -no issues Renal: -ARF -Hypocalcemia -repleted with calcium carbonate 500mg PO -Will undergo plasmaphoresis today Dr. Graham following -Imaging: -07/23/16 renal ultrasound: unremarkable Musculoskeletal: -Sedated Genitourinary: -Continue sharp Infectious disease: -ID consult (Dr. Richter) -Zosyn 2.25 gm IVPB GI prophylaxis: Protonix 40mg IVP daily DVT prophylaxis: Heparin 5000 units SC Q8 Case discussed with Dr. Levi Flores PGY1 - Date & Time Date: 07/24/16 Time: 14:28 <Alessandro Sims - Last Filed: 07/24/16 14:40> CCU Objective - Vital Signs / Intake & Output Intake and Output (Last 8hrs): Intake & Output 07/23/16 07/24/16 07/24/16 22:59 06:59 14:59 Intake Total 1340.6 1372.6 716.8 Output Total 560 535 700 Balance 780.6 837.6 16.8 Intake: IV 600 350 450 Intake, IV Amount 533.6 583.6 266.8 Left Forearm 133.6 133.6 66.8 Right Antecubital 50 Right Distal Port 360 360 180 Internal Jugular Right Proximal Port 40 40 20 Internal Jugular Oral 0 Blood Product 207 439 Output: Urine 560 535 700 Urine, Voided 560 535 700 - Medications Active Medications: Active Medications Generic Name Dose Route Start Last Admin Trade Name Freq PRN Reason Stop Dose Admin Acetaminophen 650 mg 07/24/16 15:00 Tylenol 650 Mg Supp NC ONCE JESSI Albuterol/Ipratropium 3 ml 07/23/16 08:00 07/24/16 14:26 Duoneb 3 Mg/0.5 Mg (3 Ml) Ud INH 3 ml RQ6 JESSI Administration Calcium Carbonate 500 mg 07/24/16 15:00 Oscal PO ONCE JESSI Carvedilol 3.125 mg 07/24/16 18:00 Coreg PO BID JESSI Dexamethasone 4 mg 07/23/16 14:00 07/24/16 13:41 Decadron Inj IV 4 mg Q8 JESSI Administration Diphenhydramine HCl 25 mg 07/24/16 15:00 Benadryl IVP ONCE JESSI Furosemide 20 mg 07/24/16 22:00 Lasix IVP Q12 JESSI Heparin Sodium (Porcine) 5,000 units 07/24/16 14:00 07/24/16 13:46 Heparin SC 5,000 units Q8 JESSI Administration Hydrocortisone Sodium Succinate 50 mg 07/24/16 15:00 Solu-Cortef IV ONCE JESSI Nitroglycerin/Dextrose 50 mg in 250 mls @ 1.5 mls/hr 07/23/16 05:15 07/24/16 09:13 Nitroglycerin 50 Mg/250 Ml D5w IV 150 mcg/min .Q24H JESSI 45 mls/hr Protocol Administration 5 MCG/MIN Propofol 1,000 mg in 100 mls @ 20.727 mls/hr 07/23/16 08:58 07/24/16 13:39 Diprivan IV 47.6 mcg/kg/min .Q4H50M PRN 20.727 mls/hr TITRATE PER MD ORDER Administration Protocol 47.6 MCG/KG/MIN Piperacillin Sod/Tazobactam Sod 2.25 gm in 50 mls @ 100 mls/hr 07/23/16 13:00 07/24/16 06:00 Zosyn 2.25 Gm Iv Premix IVPB 100 mls/hr Q6H JESSI Administration Calcium Gluconate 4.65 meq/ 110 mls @ 100 mls/hr 07/24/16 15:00 Sodium Chloride IV ONCE JESSI Pantoprazole Sodium 40 mg 07/25/16 10:00 Protonix Inj IVP DAILY JESSI - Patient Studies Lab Studies: Lab Studies 07/24/16 07/24/16 07/24/16 Range/Units 06:58 06:12 06:09 WBC 7.2 (4.8-10.8) K/uL RBC 2.93 L (3.80-5.20) Mil/uL Hgb 9.3 L D (11.0-16.0) g/dL Hct 28.3 L (34.0-47.0) % MCV 96.6 D (81.0-99.0) fL MCH 31.7 H (27.0-31.0) pg MCHC 32.9 L (33.0-37.0) g/dL RDW 17.3 H (11.5-14.5) % Plt Count 64 L D (130-400) K/uL MPV 10.8 (7.2-11.7) fL Neut % (Auto) 90.4 H (50.0-75.0) % Lymph % (Auto) 6.6 L (20.0-40.0) % [place] % (Auto) 2.7 (0.0-10.0) % Eos % (Auto) 0.1 (0.0-4.0) % Baso % (Auto) 0.2 (0.0-2.0) % Neut # 6.5 (1.8-7.0) K/uL Lymph # 0.5 L (1.0-4.3) K/uL [place] # 0.2 (0.0-0.8) K/uL Eos # 0.0 (0.0-0.7) K/uL Baso # 0.0 (0.0-0.2) K/uL Neutrophils % (Manual) 85 H (50-75) % Band Neutrophils % 4 H (0-2) % Lymphocytes % (Manual) 8 L (20-40) % Monocytes % (Manual) 3 (0-10) % Toxic Granulation Present Platelet Estimate Decreased L (NORMAL) Anisocytosis (manual) Slight PT 11.2 (9.7-12.2) SECONDS INR 1.0 APTT 25 (21-34) SECONDS Puncture Site pCO2 (35-45) mm/Hg pO2 (80-100) mm/Hg HCO3 (21-28) mmol/L ABG pH (7.35-7.45) ABG Total CO2 (22-28) mmol/L ABG O2 Saturation (95-98) % ABG Base Excess (-2.0-3.0) mmol/L ABG Hemoglobin (11.7-17.4) g/dL ABG Carboxyhemoglobin (0.5-1.5) % POC ABG HHb (Measured) (0.0-5.0) % ABG Methemoglobin (0.0-3.0) % Braxton Test A-a O2 Difference mm/Hg Respiratory Index Hgb O2 Saturation (95.0-98.0) % Mechanical Rate FiO2 % Tidal Volume PEEP Sodium 132 (132-148) mmol/L Potassium 3.8 (3.6-5.2) mmol/L Chloride 94 L (98-107) mmol/L Carbon Dioxide 25 (22-30) mmol/L Anion Gap 17 (10-20) BUN 42 H (7-17) mg/dL Creatinine 3.5 H (0.7-1.2) MG/DL Est GFR ( Amer) 15 Est GFR (Non-Af Amer) 13 Random Glucose 183 H (65-105) mg/dL Calcium 8.2 L (8.6-10.4) mg/dl Phosphorus 4.3 (2.5-4.5) mg/dL Magnesium 1.9 (1.6-2.3) mg/dL Total Bilirubin 1.1 (0.2-1.3) mg/dL AST 33 (14-36) U/L ALT 41 (9-52) U/L Alkaline Phosphatase 55 (38-126) U/L Total Creatine Kinase (30-135) U/L CK-MB (Mass) (0.0-3.38) ng/mL Troponin I, Quant (0.00-0.120) ng/mL Total Protein 5.7 L (6.3-8.3) g/dL Albumin 3.0 L (3.5-5.0) g/dL Globulin 2.7 (2.2-3.9) gm/dL Albumin/Globulin Ratio 1.1 (1.0-2.1) Rheum Arthritis Panel (NEGATIVE) 07/24/16 07/24/16 07/23/16 Range/Units 04:23 00:09 15:53 WBC (4.8-10.8) K/uL RBC (3.80-5.20) Mil/uL Hgb (11.0-16.0) g/dL Hct (34.0-47.0) % MCV (81.0-99.0) fL MCH (27.0-31.0) pg MCHC (33.0-37.0) g/dL RDW (11.5-14.5) % Plt Count (130-400) K/uL MPV (7.2-11.7) fL Neut % (Auto) (50.0-75.0) % Lymph % (Auto) (20.0-40.0) % [place] % (Auto) (0.0-10.0) % Eos % (Auto) (0.0-4.0) % Baso % (Auto) (0.0-2.0) % Neut # (1.8-7.0) K/uL Lymph # (1.0-4.3) K/uL [place] # (0.0-0.8) K/uL Eos # (0.0-0.7) K/uL Baso # (0.0-0.2) K/uL Neutrophils % (Manual) (50-75) % Band Neutrophils % (0-2) % Lymphocytes % (Manual) (20-40) % Monocytes % (Manual) (0-10) % Toxic Granulation Platelet Estimate (NORMAL) Anisocytosis (manual) PT (9.7-12.2) SECONDS INR APTT (21-34) SECONDS Puncture Site L brach pCO2 34 L (35-45) mm/Hg pO2 359 H (80-100) mm/Hg HCO3 28.1 H (21-28) mmol/L ABG pH 7.51 H (7.35-7.45) ABG Total CO2 28.1 H (22-28) mmol/L ABG O2 Saturation 100.1 H (95-98) % ABG Base Excess 4.0 H (-2.0-3.0) mmol/L ABG Hemoglobin 9.3 L (11.7-17.4) g/dL ABG Carboxyhemoglobin 1.4 (0.5-1.5) % POC ABG HHb (Measured) -0.1 L (0.0-5.0) % ABG Methemoglobin 1.7 (0.0-3.0) % Braxton Test P A-a O2 Difference 312.0 mm/Hg Respiratory Index 0.9 Hgb O2 Saturation 97.0 (95.0-98.0) % Mechanical Rate 20 FiO2 100.0 % Tidal Volume 450 PEEP 10 Sodium (132-148) mmol/L Potassium (3.6-5.2) mmol/L Chloride (98-107) mmol/L Carbon Dioxide (22-30) mmol/L Anion Gap (10-20) BUN (7-17) mg/dL Creatinine (0.7-1.2) MG/DL Est GFR ( Amer) Est GFR (Non-Af Amer) Random Glucose (65-105) mg/dL Calcium (8.6-10.4) mg/dl Phosphorus (2.5-4.5) mg/dL Magnesium (1.6-2.3) mg/dL Total Bilirubin (0.2-1.3) mg/dL AST (14-36) U/L ALT (9-52) U/L Alkaline Phosphatase (38-126) U/L Total Creatine Kinase 50 69 (30-135) U/L CK-MB (Mass) 2.96 4.65 H (0.0-3.38) ng/mL Troponin I, Quant 0.8760 H* 1.0300 H* (0.00-0.120) ng/mL Total Protein (6.3-8.3) g/dL Albumin (3.5-5.0) g/dL Globulin (2.2-3.9) gm/dL Albumin/Globulin Ratio (1.0-2.1) Rheum Arthritis Panel (NEGATIVE) 07/23/16 Range/Units 13:34 WBC (4.8-10.8) K/uL RBC (3.80-5.20) Mil/uL Hgb (11.0-16.0) g/dL Hct (34.0-47.0) % MCV (81.0-99.0) fL MCH (27.0-31.0) pg MCHC (33.0-37.0) g/dL RDW (11.5-14.5) % Plt Count (130-400) K/uL MPV (7.2-11.7) fL Neut % (Auto) (50.0-75.0) % Lymph % (Auto) (20.0-40.0) % [place] % (Auto) (0.0-10.0) % Eos % (Auto) (0.0-4.0) % Baso % (Auto) (0.0-2.0) % Neut # (1.8-7.0) K/uL Lymph # (1.0-4.3) K/uL [place] # (0.0-0.8) K/uL Eos # (0.0-0.7) K/uL Baso # (0.0-0.2) K/uL Neutrophils % (Manual) (50-75) % Band Neutrophils % (0-2) % Lymphocytes % (Manual) (20-40) % Monocytes % (Manual) (0-10) % Toxic Granulation Platelet Estimate (NORMAL) Anisocytosis (manual) PT (9.7-12.2) SECONDS INR APTT (21-34) SECONDS Puncture Site pCO2 (35-45) mm/Hg pO2 (80-100) mm/Hg HCO3 (21-28) mmol/L ABG pH (7.35-7.45) ABG Total CO2 (22-28) mmol/L ABG O2 Saturation (95-98) % ABG Base Excess (-2.0-3.0) mmol/L ABG Hemoglobin (11.7-17.4) g/dL ABG Carboxyhemoglobin (0.5-1.5) % POC ABG HHb (Measured) (0.0-5.0) % ABG Methemoglobin (0.0-3.0) % Braxton Test A-a O2 Difference mm/Hg Respiratory Index Hgb O2 Saturation (95.0-98.0) % Mechanical Rate FiO2 % Tidal Volume PEEP Sodium (132-148) mmol/L Potassium (3.6-5.2) mmol/L Chloride (98-107) mmol/L Carbon Dioxide (22-30) mmol/L Anion Gap (10-20) BUN (7-17) mg/dL Creatinine (0.7-1.2) MG/DL Est GFR ( Amer) Est GFR (Non-Af Amer) Random Glucose (65-105) mg/dL Calcium (8.6-10.4) mg/dl Phosphorus (2.5-4.5) mg/dL Magnesium (1.6-2.3) mg/dL Total Bilirubin (0.2-1.3) mg/dL AST (14-36) U/L ALT (9-52) U/L Alkaline Phosphatase (38-126) U/L Total Creatine Kinase (30-135) U/L CK-MB (Mass) (0.0-3.38) ng/mL Troponin I, Quant (0.00-0.120) ng/mL Total Protein (6.3-8.3) g/dL Albumin (3.5-5.0) g/dL Globulin (2.2-3.9) gm/dL Albumin/Globulin Ratio (1.0-2.1) Rheum Arthritis Panel Negative (NEGATIVE) Laboratory Results - last 24 hr 07/23/16 07/23/16 07/24/16 13:34 15:53 00:09 WBC RBC Hgb Hct MCV MCH MCHC RDW Plt Count MPV Neut % (Auto) Lymph % (Auto) [place] % (Auto) Eos % (Auto) Baso % (Auto) Neut # Lymph # [place] # Eos # Baso # Neutrophils % (Manual) Band Neutrophils % Lymphocytes % (Manual) Monocytes % (Manual) Toxic Granulation Platelet Estimate Anisocytosis (manual) PT INR APTT Puncture Site pCO2 pO2 HCO3 ABG pH ABG Total CO2 ABG O2 Saturation ABG Base Excess ABG Hemoglobin ABG Carboxyhemoglobin POC ABG HHb (Measured) ABG Methemoglobin Braxton Test A-a O2 Difference Respiratory Index Hgb O2 Saturation Mechanical Rate FiO2 Tidal Volume PEEP Sodium Potassium Chloride Carbon Dioxide Anion Gap BUN Creatinine Est GFR ( Amer) Est GFR (Non-Af Amer) Random Glucose Calcium Phosphorus Magnesium Total Bilirubin AST ALT Alkaline Phosphatase Total Creatine Kinase 69 50 CK-MB (Mass) 4.65 H 2.96 Troponin I, Quant 1.0300 H* 0.8760 H* Total Protein Albumin Globulin Albumin/Globulin Ratio Rheum Arthritis Panel Negative 07/24/16 07/24/16 07/24/16 04:23 06:09 06:12 WBC 7.2 RBC 2.93 L Hgb 9.3 L D Hct 28.3 L MCV 96.6 D MCH 31.7 H MCHC 32.9 L RDW 17.3 H Plt Count 64 L D MPV 10.8 Neut % (Auto) 90.4 H Lymph % (Auto) 6.6 L [place] % (Auto) 2.7 Eos % (Auto) 0.1 Baso % (Auto) 0.2 Neut # 6.5 Lymph # 0.5 L [place] # 0.2 Eos # 0.0 Baso # 0.0 Neutrophils % (Manual) 85 H Band Neutrophils % 4 H Lymphocytes % (Manual) 8 L Monocytes % (Manual) 3 Toxic Granulation Present Platelet Estimate Decreased L Anisocytosis (manual) Slight PT INR APTT Puncture Site L brach pCO2 34 L pO2 359 H HCO3 28.1 H ABG pH 7.51 H ABG Total CO2 28.1 H ABG O2 Saturation 100.1 H ABG Base Excess 4.0 H ABG Hemoglobin 9.3 L ABG Carboxyhemoglobin 1.4 POC ABG HHb (Measured) -0.1 L ABG Methemoglobin 1.7 Braxton Test P A-a O2 Difference 312.0 Respiratory Index 0.9 Hgb O2 Saturation 97.0 Mechanical Rate 20 FiO2 100.0 Tidal Volume 450 PEEP 10 Sodium 132 Potassium 3.8 Chloride 94 L Carbon Dioxide 25 Anion Gap 17 BUN 42 H Creatinine 3.5 H Est GFR ( Amer) 15 Est GFR (Non-Af Amer) 13 Random Glucose 183 H Calcium 8.2 L Phosphorus 4.3 Magnesium 1.9 Total Bilirubin 1.1 AST 33 ALT 41 Alkaline Phosphatase 55 Total Creatine Kinase CK-MB (Mass) Troponin I, Quant Total Protein 5.7 L Albumin 3.0 L Globulin 2.7 Albumin/Globulin Ratio 1.1 Rheum Arthritis Panel 07/24/16 06:58 WBC RBC Hgb Hct MCV MCH MCHC RDW Plt Count MPV Neut % (Auto) Lymph % (Auto) [place] % (Auto) Eos % (Auto) Baso % (Auto) Neut # Lymph # [place] # Eos # Baso # Neutrophils % (Manual) Band Neutrophils % Lymphocytes % (Manual) Monocytes % (Manual) Toxic Granulation Platelet Estimate Anisocytosis (manual) PT 11.2 INR 1.0 APTT 25 Puncture Site pCO2 pO2 HCO3 ABG pH ABG Total CO2 ABG O2 Saturation ABG Base Excess ABG Hemoglobin ABG Carboxyhemoglobin POC ABG HHb (Measured) ABG Methemoglobin Braxton Test A-a O2 Difference Respiratory Index Hgb O2 Saturation Mechanical Rate FiO2 Tidal Volume PEEP Sodium Potassium Chloride Carbon Dioxide Anion Gap BUN Creatinine Est GFR ( Amer) Est GFR (Non-Af Amer) Random Glucose Calcium Phosphorus Magnesium Total Bilirubin AST ALT Alkaline Phosphatase Total Creatine Kinase CK-MB (Mass) Troponin I, Quant Total Protein Albumin Globulin Albumin/Globulin Ratio Rheum Arthritis Panel Attending/Attestation - Attestation I have personally seen and examined this patient.: Yes I have fully participated in the care of the patient.: Yes I have reviewed all pertinent clinical information: Yes Notes (Text): 07/24/16 14:38 I have seen and examined the patient. Medical records, lab studies, and imaging were reviewed by me and a management plan was formulated on multidisciplinary rounds with resident Dr. Flores. I agree with their above documented assessment and plan. Starting dvt prophylaxis, patient in thrombotic state. Initiating plasmapharesis today. Underlying etiology unclear. Called ID consult - Dr. Richter. Possible infectious etiology, given diarrhea and rash prior to onset, with recent stay in the [facility] [place] for 5 months. Critical Care Time 35 minutes. Multi-disciplinary rounds were performed with house staff, nursing, speech therapy, respiratory therapy, pharmacy and nutrition with integrated input from the primary team/attending and other consulting services. The documented time is cumulative and includes review of patient data/exams/labs/chart review and examination of the patient on rounds and throughout the day; time is exclusive of any procedures or teaching time.
[2016-07-24] MEDS ORDERED: DiphenhydrAMINE 50 mg/ml Inj IVP SCH ×2 (15:00→20:00)
[2016-07-24 16:27] LABS: HEMOGLOBIN 9.2 g/dL (11.0-16.0); MEAN CELL VOLUME 96.5 fL (81.0-99.0); MEAN CORPUSCULAR HGB CONC 33.2 g/dL (33.0-37.0); MEAN PLATELET VOLUME 10.4 fL (7.2-11.7); RBC 2.89 Mil/uL (3.80-5.20); RED CELL DISTRIBUTION WIDTH 16.9 % (11.5-14.5); WHITE BLOOD COUNT 8.3 K/uL (4.8-10.8)
[2016-07-24 17:34] LABS: FIBRINOGEN 341 mg/dL (200-400)
--- NOTE | 2016-07-24 17:57 | CP.PCM.CON ---
History of Present Illness - History of Present Illness History of Present Illness: 80 yr old female with PMHx of HTN and arthritis, cataracts presents to the ER accompanied by family for diarrhea 4x a day, vomiting 4x and abdominal pain for the past 4 days. Reports patient was in [facility] [place] for the last 5 months , recently came back 3 weeks ago and has been sick persistently. On admission found to have NSTEMI, severe dehydration / MARCO with thrombocytopenia and sepsis culminating in respiratory failure ID consult requested by Applications Coordinator Considerations include dengue, Malaria, E Coli 0157 ( HUS) , Salmonella Typhi, Hepatitis A, norovirus and enterovirus , c diff and entamoeba hystolytica to name a few Remains obtunded on vent prognosis poor from outset Review of Systems - Review of Systems Systems not reviewed;Unavailable: Altered Mental Status, Intubated - Constitutional Constitutional: As Per HPI - EENT Eyes: As Per HPI Ears: absent: As Per HPI, Decreased Hearing, Ear Discharge, Ear Pain, Tinnitus, Abnormal Hearing, Disequilibrium, Dizziness, Other Nose/Mouth/Throat: absent: As Per HPI, Epistaxis, Nasal Congestion, Nasal Discharge, Nasal Obstruction, Nasal Trauma, Nose Pain, Post Nasal Drip, Sinus Pain, Sinus Pressure, Bleeding Gums, Change in Voice, Dental Pain, Dry Mouth, Dysphagia, Halitosis, Hoarsness, Lip Swelling, Mouth Lesions, Mouth Pain, Odynophagia, Sore Throat, Throat Swelling, Tongue Swelling, Facial Pain, Neck Pain, Neck Mass, Other - Breasts Breasts: absent: As Per HPI, Change in Shape, Mass, Pain, Nipple Discharge, Nipple Inversion, Skin Changes, Swelling, Other - Cardiovascular Cardiovascular: absent: As Per HPI, Acrocyanosis, Chest Pain, Chest Pain at Rest , Chest Pain with Activity, Claudication, Diaphoresis, Dyspnea, Dyspnea on Exertion, Edema, Irregular Heart Rhythm, Pain Radiating to Arm/Neck/Jaw, Leg Edema, Leg Ulcers, Lightheadedness, Orthopnea, Palpitations, Paroxysmal Nocturnal Dyspnea, Pedal Edema, Radiating Pain, Rapid Heart Rate, Slow Heart Rate, Syncope, Other - Respiratory Respiratory: As Per HPI - Gastrointestinal Gastrointestinal: As Per HPI - Genitourinary Genitourinary: absent: As Per HPI, Change in Urinary Stream, Difficulty Urinating, Dysuria, Flank Pain, Hematuria, Pyuria, Nocturia, Urinary Incontinence, Urinary Frequency, Urinary Hesitance, Urinary Urgency, Voiding Freq/Small Amts, Freq UTI, Hx Renal/Bladder Calculi, Hx /Renal Surgery, Bladder Distension, Other - Reproductive: Female Reproductive:Female: absent: As Per HPI, Amenorrhea, Amenorrhea/ Control, Currently Menstual, Cycle <21 Days, Cycle >35 Days, Cycle Variable, Menses 1-7 Days, Menses >/= 8 Days, Menses Variable, Cycle > 4 Weeks Between, No Menses for 6 Months, Heavy Menses, Light Menses, Normal Menses, Spotting Between Cycles , S/P Hysterectomy, Menopausal, Post Menopausal, Premenarche, Abnormal Vaginal Bleeding, Dysmenorrhea, Dyspareunia, Genital Lesions, Genital Pruritis, Pelvic Pain, Prolapse Symptoms, Sexual Dysfunction, Vaginal Discharge, Vaginal Dryness , Vaginal Odor, Vaginal Pruritis, Other - Menstruation Menstruation: absent: As Per HPI, Amenorrhea, Amenorrhea/ Control, Currently Menstual, Cycle <21 Days, Cycle >35 Days, Cycle Variable, Menses 1-7 Days, Menses >/= 8 Days, Menses Variable, Cycle > 4 Weeks Between, No Menses for 6 Months, Heavy Menses, Light Menses, Normal Menses, Spotting Between Cycles , S/P Hysterectomy, Menopausal, Post Menopausal, Premenarche, Abnormal Vaginal Bleeding, Dysmenorrhea, Other - Musculoskeletal Musculoskeletal: absent: As Per HPI, Abnormal Gait, Arthralgias, Atrophy, Back Pain, Deformity, Joint Swelling, Limited Range of Motion, Loss of Height, Muscle Cramps, Muscle Weakness, Myalgias, Neck Pain, Numbness, Radiating Pain into Limb, Stiffness, Tingling, Other - Integumentary Integumentary: absent: As Per HPI, Acne, Alopecia, Bleeding Lesions, Change in Hair, Change in Nails, Change in Pigmentation, Changing Lesions, Dry Skin, Erythema, Furuncle, Hirsutism, Lesions, New Lesions, Non-Healing Lesions, Photosensitivity, Pruritus, Rash, Skin Pain, Skin Ulcer, Sores, Striae, Swelling , Unusual Bruising, Wounds, Jaundice, Other - Neurological Neurological: As Per HPI - Psychiatric Psychiatric: absent: As Per HPI, Abnormal Sleep Pattern, Anhedonia, Anxiety, Auditory Hallucinations, Behavioral Changes, Change in Appetite, Change in Libido, Confusion, Depression, Difficulty Concentrating, Hallucinations, Homicidal Ideation, Hopelessness, Irritability, Memory Loss, Mood Swings, Panic Attacks, Paranoia, Suicidal Ideation, Visual Hallucinations, Tactile Hallucinations, Other - Endocrine Endocrine: absent: As Per HPI, Change in Body Appearance, Change in Libido, Cold Intolorance, Deepening of Voice, Excessive Sweating, Fatigue, Flushing, Heat Intolorance, Increase in Ring/Shoe/Hat Size, Palpitations, Polydipsia, Polyphagia, Polyuria, Other - Hematologic/Lymphatic Hematologic: absent: As Per HPI, Easy Bleeding, Easy Bruising, Lymphadenopathy, Other Past Patient History - Past Medical History & Family History Past Medical History?: Yes - Past Social History Smoking Status: Light Smoker < 10 Cigarettes Daily - CARDIAC Hx Hypertension: Yes - PULMONARY Hx Respiratory Disorders: No - NEUROLOGICAL Hx Neurological Disorder: No - HEENT Hx HEENT Problems: No Other/Comment: Poor vision both eyes, have eye doctor appoinment 08/04/16. - RENAL Hx Chronic Kidney Disease: No - ENDOCRINE/METABOLIC Hx Endocrine Disorders: Yes Other/Comment: THYROID NODULES - HEMATOLOGICAL/ONCOLOGICAL Hx Blood Disorders: No - INTEGUMENTARY Hx Dermatological Problems: Yes Other/Comment: h/o skin rashes - MUSCULOSKELETAL/RHEUMATOLOGICAL Hx Arthritis: Yes (B/L KNEE ARTHRITIS) - GASTROINTESTINAL Hx Gastrointestinal Disorders: No - GENITOURINARY/GYNECOLOGICAL Hx Genitourinary Disorders: No - PSYCHIATRIC Hx Substance Use: No - SURGICAL HISTORY Hx Surgeries: Yes Other/Comment: 1993 THYROID SX - ANESTHESIA Hx Anesthesia: Yes Hx Anesthesia Reactions: No Hx Malignant Hyperthermia: No Has any member of the family had a problem w/ anesthesia?: No Meds Allergies/Adverse Reactions: Allergies Allergy/AdvReac Type Severity Reaction Status Date / Time No Known Allergies Allergy Verified 12/28/13 12:04 - Medications Medications: Current Medications Acetaminophen (Tylenol 650 Mg Supp) 650 mg FL ONCE [facility] Albuterol/Ipratropium (Duoneb 3 Mg/0.5 Mg (3 Ml) Ud) 3 ml INH RQ6 [facility] Last Admin: 07/24/16 14:26 Dose: 3 ml Calcium Carbonate (Oscal) 500 mg PO ONCE [facility] Carvedilol (Coreg) 3.125 mg PO BID [facility] Dexamethasone (Decadron Inj) 4 mg IV Q8 [facility] Last Admin: 07/24/16 13:41 Dose: 4 mg Diphenhydramine HCl (Benadryl) 50 mg IVP ONCE [facility] Furosemide (Lasix) 20 mg IVP Q12 [facility] Heparin Sodium (Porcine) (Heparin) 5,000 units SC Q8 [facility] Last Admin: 07/24/16 13:46 Dose: 5,000 units Hydrocortisone Sodium Succinate (Solu-Cortef) 50 mg IV ONCE [facility] Nitroglycerin/Dextrose (Nitroglycerin 50 Mg/250 Ml D5w) 50 mg in 250 mls @ 1.5 mls/hr IV .Q24H JESSI; 5 MCG/MIN PRN Reason: Protocol Last Admin: 07/24/16 15:27 Dose: 100 mcg/min, 30 mls/hr Propofol (Diprivan) 1,000 mg in 100 mls @ 20.727 mls/hr IV .Q4H50M PRN; Protocol; 47.6 MCG/KG/MIN PRN Reason: TITRATE PER MD ORDER Last Admin: 07/24/16 13:39 Dose: 47.6 mcg/kg/min, 20.727 mls/hr Piperacillin Sod/Tazobactam Sod (Zosyn 2.25 Gm Iv Premix) 2.25 gm in 50 mls @ 100 mls/hr IVPB Q6H [facility] Last Admin: 07/24/16 13:00 Dose: 100 mls/hr Calcium Gluconate 9.3 meq/ (Sodium Chloride) 270 mls @ 125 mls/hr IV ONCE ONE Stop: 07/24/16 22:09 Methylprednisolone (Solu-Medrol) 100 mg IV ONCE ONE Stop: 07/24/16 20:01 Pantoprazole Sodium (Protonix Inj) 40 mg IVP DAILY [facility] Physical Exam - Constitutional Appears: Toxic, Confused, Cachectic, Chronically Ill - Head Exam Head Exam: ATRAUMATIC, NORMAL INSPECTION, NORMOCEPHALIC - Eye Exam Eye Exam: PERRL. absent: Scleral icterus - ENT Exam ENT Exam: Mucous Membranes Dry, Normal External Ear Exam - Neck Exam Neck exam: Negative for: Lymphadenopathy - Respiratory Exam Respiratory Exam: Decreased Breath Sounds, Rhonchi - Cardiovascular Exam Cardiovascular Exam: Tachycardia, REGULAR RHYTHM, +S1, +S2 - GI/Abdominal Exam GI & Abdominal Exam: Diminished Bowel Sounds, Distended, Soft. absent: Guarding , Rigid - Rectal Exam Rectal Exam: Deferred - Exam Exam: NORMAL INSPECTION - Extremities Exam Extremities exam: Positive for: pedal pulses present. Negative for: calf tenderness, pedal edema, tenderness - Back Exam Back exam: absent: CVA tenderness (L), CVA tenderness (R) - Neurological Exam Neurological exam: Altered - Psychiatric Exam Psychiatric exam: Depressed - Skin Skin Exam: Dry, Intact Results - Vital Signs Recent Vital Signs: Last Vital Signs Temp 97.9 F 07/24/16 16:00 Pulse 86 07/24/16 17:05 Resp 20 07/24/16 17:05 BP 114/59 L 07/24/16 17:05 Pulse Ox 100 07/24/16 17:05 - Labs Result Diagrams: 07/24/16 16:09 07/24/16 06:09 Labs: Laboratory Results - last 24 hr 07/23/16 07/24/16 07/24/16 13:34 00:09 04:23 WBC RBC Hgb Hct MCV MCH MCHC RDW Plt Count MPV Neut % (Auto) Lymph % (Auto) [place] % (Auto) Eos % (Auto) Baso % (Auto) Neut # Lymph # [place] # Eos # Baso # Neutrophils % (Manual) Band Neutrophils % Lymphocytes % (Manual) Monocytes % (Manual) Toxic Granulation Platelet Estimate Anisocytosis (manual) PT INR APTT Fibrinogen Puncture Site L brach pCO2 34 L pO2 359 H HCO3 28.1 H ABG pH 7.51 H ABG Total CO2 28.1 H ABG O2 Saturation 100.1 H ABG Base Excess 4.0 H ABG Hemoglobin 9.3 L ABG Carboxyhemoglobin 1.4 POC ABG HHb (Measured) -0.1 L ABG Methemoglobin 1.7 Braxton Test P A-a O2 Difference 312.0 Respiratory Index 0.9 Hgb O2 Saturation 97.0 Mechanical Rate 20 FiO2 100.0 Tidal Volume 450 PEEP 10 Sodium Potassium Chloride Carbon Dioxide Anion Gap BUN Creatinine Est GFR ( Amer) Est GFR (Non-Af Amer) Random Glucose Calcium Phosphorus Magnesium Total Bilirubin AST ALT Alkaline Phosphatase Total Creatine Kinase 50 CK-MB (Mass) 2.96 Troponin I, Quant 0.8760 H* Total Protein Albumin Globulin Albumin/Globulin Ratio Rheum Arthritis Panel Negative 07/24/16 07/24/16 07/24/16 06:09 06:12 06:58 WBC 7.2 RBC 2.93 L Hgb 9.3 L D Hct 28.3 L MCV 96.6 D MCH 31.7 H MCHC 32.9 L RDW 17.3 H Plt Count 64 L D MPV 10.8 Neut % (Auto) 90.4 H Lymph % (Auto) 6.6 L [place] % (Auto) 2.7 Eos % (Auto) 0.1 Baso % (Auto) 0.2 Neut # 6.5 Lymph # 0.5 L [place] # 0.2 Eos # 0.0 Baso # 0.0 Neutrophils % (Manual) 85 H Band Neutrophils % 4 H Lymphocytes % (Manual) 8 L Monocytes % (Manual) 3 Toxic Granulation Present Platelet Estimate Decreased L Anisocytosis (manual) Slight PT 11.2 INR 1.0 APTT 25 Fibrinogen Puncture Site pCO2 pO2 HCO3 ABG pH ABG Total CO2 ABG O2 Saturation ABG Base Excess ABG Hemoglobin ABG Carboxyhemoglobin POC ABG HHb (Measured) ABG Methemoglobin Braxton Test A-a O2 Difference Respiratory Index Hgb O2 Saturation Mechanical Rate FiO2 Tidal Volume PEEP Sodium 132 Potassium 3.8 Chloride 94 L Carbon Dioxide 25 Anion Gap 17 BUN 42 H Creatinine 3.5 H Est GFR ( Amer) 15 Est GFR (Non-Af Amer) 13 Random Glucose 183 H Calcium 8.2 L Phosphorus 4.3 Magnesium 1.9 Total Bilirubin 1.1 AST 33 ALT 41 Alkaline Phosphatase 55 Total Creatine Kinase CK-MB (Mass) Troponin I, Quant Total Protein 5.7 L Albumin 3.0 L Globulin 2.7 Albumin/Globulin Ratio 1.1 Rheum Arthritis Panel 07/24/16 07/24/16 16:09 16:09 WBC 8.3 RBC 2.89 L Hgb 9.2 L Hct 27.9 L MCV 96.5 MCH 32.0 H MCHC 33.2 RDW 16.9 H Plt Count 65 L MPV 10.4 Neut % (Auto) Lymph % (Auto) [place] % (Auto) Eos % (Auto) Baso % (Auto) Neut # Lymph # [place] # Eos # Baso # Neutrophils % (Manual) Band Neutrophils % Lymphocytes % (Manual) Monocytes % (Manual) Toxic Granulation Platelet Estimate Anisocytosis (manual) PT INR APTT Fibrinogen 341 Puncture Site pCO2 pO2 HCO3 ABG pH ABG Total CO2 ABG O2 Saturation ABG Base Excess ABG Hemoglobin ABG Carboxyhemoglobin POC ABG HHb (Measured) ABG Methemoglobin Braxton Test A-a O2 Difference Respiratory Index Hgb O2 Saturation Mechanical Rate FiO2 Tidal Volume PEEP Sodium Potassium Chloride Carbon Dioxide Anion Gap BUN Creatinine Est GFR ( Amer) Est GFR (Non-Af Amer) Random Glucose Calcium Phosphorus Magnesium Total Bilirubin AST ALT Alkaline Phosphatase Total Creatine Kinase CK-MB (Mass) Troponin I, Quant Total Protein Albumin Globulin Albumin/Globulin Ratio Rheum Arthritis Panel Assessment & Plan (1) Acute respiratory failure requiring reintubation Status: Acute (2) CHF (congestive heart failure) Status: Acute (3) Dehydration Status: Acute (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
[2016-07-24 18:09] LABS: FDP INTERPRETATION POSITIVE (NEGATIVE); FDP QUANTITY >10<40 ug/mL (<10)
[2016-07-24] MEDS ORDERED: Calcium Gluconate 9.3 MEQ in Sodium Chloride 0.9% 250 ML IV ONE (20:00)
--- NOTE | 2016-07-24 20:36 | CARD ---
APPROVED REPORT EXAM: Two-dimensional and M-mode echocardiogram with Doppler and color Doppler. Other Information Quality : GoodRhythm : INDICATION Abnormal EKG/Arrhythmia TACHYCARDIA M-Mode DIMENSIONS RVDd1.56 (2.1-3.2cm)Left Atrium (MM)2.26 (2.5-4.0cm) IVSd0.43 (0.7-1.1cm)Aortic Root3.40 (2.2-3.7cm) LVDd4.76 (4.0-5.6cm)Aortic Cusp Exc.1.21 (1.5-2.0cm) PWd0.86 (0.7-1.1cm)FS (%) 16 % LVDs3.98 (2.0-3.8cm)LVEF (%)15 (>50%) Aortic Valve AoV Peak Cowykspb618.9cm/Carter Peak GR.4mmHgAI P 1/2 [id number] Mitral Valve MV E Egfbkarp76.3cm/sMV A Jtbldnws59.4cm/sE/A ratio0.4 TDI E/Lateral E'0.0E/Medial E'0.0 Tricuspid Valve TR Peak [id number]/sTR Peak [id number] LEFT VENTRICLE The left ventricle is normal size. There is mild concentric left ventricular hypertrophy. Left ventricle systolic function is severely impaired. The Ejection Fraction is 15-20%. There is global hypokinesis of the left ventricle. Tissue Doppler imaging reveals abnormal left ventricular diastolic dysfunction. RIGHT VENTRICLE The right ventricle is normal size. There is normal right ventricular wall thickness. Systolic function is severely reduced. ATRIA The left atrium size is normal. The right atrium size is normal. The interatrial septum is intact with no evidence for an atrial septal defect. AORTIC VALVE The aortic valve is normal in structure. There is moderate aortic regurgitation. There is no aortic valvular stenosis. There is no aortic valvular vegetation. MITRAL VALVE The mitral valve is normal in structure. There is no evidence of mitral valve prolapse. There is no mitral valve stenosis. Mitral regurgitation is mild. TRICUSPID VALVE The tricuspid valve is normal in structure. There is mild tricuspid regurgitation. Right ventricular systolic pressure is estimated at less than 30-40 mmHg. There is mild pulmonary hypertension. PULMONIC VALVE The pulmonic valve is not well visualized. There is mild pulmonic valvular regurgitation. GREAT VESSELS The aortic root is normal in size. PERICARDIAL EFFUSION There is no significant pericardial effusion. <Conclusion> Left ventricle systolic function is severely impaired. The Ejection Fraction is 15-20%. Hypertensive heart disease. Diastolic dysfunction. There is moderate aortic regurgitation. Mitral regurgitation is mild. There is mild tricuspid regurgitation. There is mild pulmonary hypertension. There is mild pulmonic valvular regurgitation.
[2016-07-24 21:35] LABS: HEPATITIS B SURFACE AG NEGATIVE (NEGATIVE)
[2016-07-24 21:40] LABS: HEPATITIS A IGM NEGATIVE (NEGATIVE); HEPATITIS B CORE AB NEGATIVE (NEGATIVE)
[2016-07-24] MEDS: metroNIDAZOLE IV 500 mg/100 ml 500 MG/100 ML BAG IVPB SCH (21:48)
[2016-07-24 21:52] LABS: HEPATITIS C ANTIBODY NEGATIVE (NEGATIVE)
[2016-07-24] MEDS ORDERED: DiphenhydrAMINE 50 mg/ml Inj IVP ONE (22:15)
[2016-07-24 23:16] LABS: INTRACELLULAR PARASITE NEGATIVE (NEGATIVE)
--- NOTE | 2016-07-24 23:24 | CARD ---
APPROVED REPORT EKG Measurement Heart [id number] QT0T0 QTc0 <Conclusion> No QRS complexes found, no ECG analysis possible
--- NOTE | 2016-07-24 23:57 | PN ---
DATE: 07/24/2016 LOCATION: The patient is located in ICU, bed 6. REQUESTED BY: Dr. Anthony Mclaughlin. REASON FOR FOLLOWUP: Acute renal failure versus [id number] kidney disease of TTP and for plasmapheresis evaluation. HISTORY OF PRESENT ILLNESS: The patient is an 80-year-old elderly female with a history of hypertension, questionable chronic kidney disease, who was admitted with chief complaints of nausea, vomiting, diarrhea 3 days prior to the admission, and with altered mental status. Also found to have elevated BUN and creatinine and low platelets. 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 Hematology decided to undergo plasmapheresis as per Dr. Lopez in rounds. The patient remains intubated and not in distress. PHYSICAL EXAMINATION: VITAL SIGNS: This morning as follows: Blood pressure this morning is 159/84, pulse 101, respirations 17, saturation 100%, and temperature 97.7. Height 5 feet 4 inches and weight is 160 pounds. GENERAL: The patient is an 80-year-old elderly female on ventilator, not in distress. HEENT: Pupils normal, reactive to light and accommodation. Conjunctivae pink. Sclerae anicteric. On ventilator. NECK: No thyroid enlargement. LUNGS: Symmetric on both sides. Bilateral breath sounds present. Occasional basal crackles present. CARDIOVASCULAR: [place]vere in the 5th intercostal space midclavicular line. S1 and S2 audible. No murmur or gallop. ABDOMEN: Normal in appearance, soft, tympanic. No guarding, no rigidity. No hepatosplenomegaly. CENTRAL NERVOUS SYSTEM: The patient is on ventilator and moving all extremities. EXTREMITIES: No cyanosis, no clubbing. Trace edema present. CURRENT MEDICATIONS: Include as follows: Coreg 3.125 mg p.o. b.i.d. and Decadron 4 mg IV q. 8 hours, Diprivan IV piggyback, DuoNeb inhaler, Flagyl 500 mg IV q. 8 hours, subcutaneous heparin 5000 q. 8 hours, Lasix 20 mg IV q. 12 hours, and IV nitroglycerin, and Protonix 40 mg IV daily, and Zosyn 2.25 g IV q. 6 hours. LABORATORY DATA: Include as follows: As of 07/24/2016, WBC 7.2, hemoglobin 9.3 , hematocrit is 28.3, and platelets 64. PT is 11.2 and PTT 25. ABG: A pH 7.51 and pCO2 is 34, pO2 359, and bicarb is 28.1, saturation 100%. Vent settings: AC 20, tidal volume 450, and FiO2 100%, PEEP of 5. Sodium 132, potassium 3.8, chloride 94, CO2 25, BUN 42, creatinine 3.5, glucose 183, calcium 8.2, phosphorus 4.3, magnesium 1.9, total bili 1.1, AST 33, ALT 41, alkaline phosphatase 55, total protein 5.7, and albumin is 3. Other laboratory data: Rheumatoid factor is negative and c-ANCA and p-ANCA were negative, and hepatitis A antibody IgM is negative. Hepatitis B surface antigen negative. Hepatitis B core antibody negative. Hep C antibody is negative. Other laboratory data: Fibrinogen level is 341 and FDPis positive and is less than 40, more than 10. Repeat CBC this afternoon: WBC 8.3, hemoglobin 9.2, hematocrit is 27.9, platelets 65. SUMMARY: The patient is an 80-year-old elderly female with a history of hypertension, questionable chronic kidney disease, who recently came from the [facility] after 5 months staying there. Two weeks ago was admitted with chief complaints of nausea, vomiting, diarrhea, abdominal pain for 3 days prior to the admission, and found to have increased BUN and creatinine, low platelets, and peripheral smear positive for schistocytes and also elevated troponins, and also elevated LDH, with worsening renal function and with low H and H. 1. Renal failure, [id number] kidney disease. 2. 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 With low platelets and low H and H, housekeeping manager , Dr. Lopez, decided for the patient to undergo plasmapheresis today as platelets are not improving with a 24-36 hours of FFP. 4. Cardiomyopathy. 5. Respiratory failure. Scheduled for plasmapheresis. Consent obtained from the patient's daughter by telephone through a handstitching machine collar feller, and also discussed case with color control supervisor in rounds, and also discussed the case with Dr. Lopez regarding the plan. Will continue plasmapheresis daily until platelets improve more than 150, for at least 2 days consecutively. Time spent in the patient's care and discussing the plan and total ICU time spent for the patient is 50 minutes. Thank you for allowing me to participate in your patient's care. Horacio Graham MD cc: [id number] TT: 07/24/2016 23:56:54 Confirmation # [id number] Dictation # [id number] eveline DURON
[2016-07-25] MEDS: Albuterol-Ipratrop 3 mg / 0.5 (3 ml) UD INH SCH ×3 (01:51→13:24)
[2016-07-25] MEDS: Piperacill/Tazo 2.25gm in Dex 2.25 GM/50 ML BAG IVPB SCH ×4 (02:53→17:59)
[2016-07-25] MEDS: Propofol 10 mg/ml 1,000 MG/100 ML VIAL IV PRN (04:42)
[2016-07-25] MEDS: Nitroglycerin 50mg in D5W 50 MG/250 ML BOTTLE IV SCH (05:34)
[2016-07-25] MEDS: Dexamethasone 4 mg/1 ml IV SCH ×3 (05:50→21:53)
[2016-07-25] MEDS: metroNIDAZOLE IV 500 mg/100 ml 500 MG/100 ML BAG IVPB SCH ×3 (05:51→21:52)
[2016-07-25 06:13] LABS: ARTERIAL BLOOD GAS HCO3 33.1 mmol/L (21-28); ARTERIAL BLOOD GAS HEMOGLOBIN 10.6 g/dL (11.7-17.4); ARTERIAL BLOOD GAS O2 SAT 99.8 % (95-98); ARTERIAL BLOOD GAS PCO2 23 mm/Hg (35-45); ARTERIAL BLOOD GAS PH 7.72 (7.35-7.45); ARTERIAL BLOOD GAS PO2 290 mm/Hg (80-100); ARTERIAL BLOOD GAS TCO2 30.5 mmol/L (22-28)
[2016-07-25 06:47] LABS: BASO % 0.1 % (0.0-2.0); HEMOGLOBIN 10.5 g/dL (11.0-16.0); LYMPH # 0.4 K/uL (1.0-4.3); LYMPH % 4.7 % (20.0-40.0); MEAN CELL VOLUME 95.8 fL (81.0-99.0); MEAN CORPUSCULAR HEMOGLOBIN 32.4 pg (27.0-31.0); MEAN CORPUSCULAR HGB CONC 33.8 g/dL (33.0-37.0); MEAN PLATELET VOLUME 11.1 fL (7.2-11.7); MONO # 0.4 K/uL (0.0-0.8); MONO % 4.9 % (0.0-10.0); NEUT # 7.9 K/uL (1.8-7.0); NEUT % 90.3 % (50.0-75.0); NRBC % 0.3 % (0.0-2.0); PLATELET COUNT 60 K/uL (130-400); RBC 3.25 Mil/uL (3.80-5.20); RED CELL DISTRIBUTION WIDTH 17.2 % (11.5-14.5); WHITE BLOOD COUNT 8.7 K/uL (4.8-10.8)
[2016-07-25 06:56] LABS: ALBUMIN 3.5 g/dL (3.5-5.0)
[2016-07-25 06:59] LABS: ALB/GLOB RATIO 1.3 (1.0-2.1)
[2016-07-25 07:00] LABS: CALCIUM 8.7 mg/dl (8.6-10.4); MAGNESIUM 2.1 mg/dL (1.6-2.3)
[2016-07-25 08:22] LABS: ANISOCYTOSIS SLIGHT; BANDS 3 % (0-2); LYMPHOCYTE 2 % (20-40); METAMYELOCYTE 1 % (0-0); MONOCYTE 3 % (0-10); NEUTROPHIL 91 % (50-75); PLATELET ESTIMATE DECREASED (NORMAL); TOTAL CELLS COUNTED 100
[2016-07-25 08:24] LABS: POIKILOCYTOSIS SLIGHT
[2016-07-25 08:27] LABS: LARGE PLATELETS PRESENT
--- NOTE | 2016-07-25 09:51 | CP.PCM.PN ---
Subjective - Date & Time of Evaluation Date of Evaluation: 07/25/16 Time of Evaluation: 09:50 - Subjective Subjective: pt seen and examined,follow up consult is dictated #[id number] for plasmaphersis in am, pt completed TPE arround 2.30 am today Objective - Vital Signs/Intake and Output Vital Signs (last 24 hours): Temp Pulse Resp BP Pulse Ox 98 F 73 20 124/70 100 07/25/16 04:00 07/25/16 08:16 07/25/16 08:16 07/25/16 08:16 07/25/16 08:16 Intake and Output: 07/25/16 07/25/16 06:59 18:59 Intake Total 1207.1 140 Output Total 520 255 Balance 687.1 -115 - Medications Medications: Current Medications Albuterol/Ipratropium (Duoneb 3 Mg/0.5 Mg (3 Ml) Ud) 3 ml INH RQ6 [facility] Last Admin: 07/25/16 07:54 Dose: 3 ml Carvedilol (Coreg) 3.125 mg PO BID [facility] Last Admin: 07/24/16 18:00 Dose: Not Given Dexamethasone (Decadron Inj) 4 mg IV Q8 [facility] Last Admin: 07/25/16 05:50 Dose: 4 mg Furosemide (Lasix) 20 mg IVP Q12 [facility] Last Admin: 07/24/16 21:49 Dose: 20 mg Heparin Sodium (Porcine) (Heparin) 5,000 units SC Q8 [facility] Last Admin: 07/25/16 05:50 Dose: 5,000 units Nitroglycerin/Dextrose (Nitroglycerin 50 Mg/250 Ml D5w) 50 mg in 250 mls @ 1.5 mls/hr IV .Q24H [facility]ESSI; 5 MCG/MIN PRN Reason: Protocol Last Titration: 07/25/16 07:48 Dose: 40 mcg/min, 12 mls/hr Propofol (Diprivan) 1,000 mg in 100 mls @ 20.727 mls/hr IV .Q4H50M PRN; Protocol; 47.6 MCG/KG/MIN PRN Reason: TITRATE PER MD ORDER Last Titration: 07/25/16 09:08 Dose: 10 mcg/kg/min, 4.355 mls/hr Piperacillin Sod/Tazobactam Sod (Zosyn 2.25 Gm Iv Premix) 2.25 gm in 50 mls @ 100 mls/hr IVPB Q6H [facility] Last Admin: 07/25/16 06:18 Dose: 100 mls/hr Metronidazole (Flagyl) 500 mg in 100 mls @ 100 mls/hr IVPB Q8 [facility] Last Admin: 07/25/16 05:51 Dose: 100 mls/hr Pantoprazole Sodium (Protonix Inj) 40 mg IVP DAILY JESSI - Labs Labs: 07/25/16 06:36 07/25/16 06:33 PT 11.2 SECONDS (9.7-12.2) 07/24/16 06:58 INR 1.0 07/24/16 06:58 APTT 25 SECONDS (21-34) 07/24/16 06:58
[2016-07-25] MEDS ORDERED: Potassium Chloride 20 mEq/15 ml LIQ UD PO ONE (11:30)
--- NOTE | 2016-07-25 11:43 | RAD ---
HISTORY: vent COMPARISON: 07/24/2016 FINDINGS: Endotracheal tube terminates 4.5 cm proximal to the natalia. The right IJV line terminates in the SVC. The nasogastric tube terminates in the stomach. LUNGS: The lungs are well inflated and clear. PLEURA: No significant pleural effusion identified, no pneumothorax apparent. CARDIOVASCULAR: Normal. OSSEOUS STRUCTURES: No significant abnormalities. VISUALIZED UPPER ABDOMEN: Normal. OTHER FINDINGS: None. IMPRESSION: No acute findings. Stable position of line and tubes.
--- NOTE | 2016-07-25 13:17 | CP.PCM.PN ---
Subjective - Date & Time of Evaluation Date of Evaluation: 07/25/16 Time of Evaluation: 13:07 - Subjective Subjective: The patient is off the sedation, opening eyes to command, good urine output, vitals stable. Family at bedside. No bleeding noted. Objective - Vital Signs/Intake and Output Vital Signs (last 24 hours): Temp Pulse Resp BP Pulse Ox 98.0 F 83 21 122/72 95 07/25/16 08:00 07/25/16 13:00 07/25/16 13:00 07/25/16 12:37 07/25/16 13:00 Intake and Output: 07/25/16 07/25/16 06:59 18:59 Intake Total 1207.1 330 Output Total 520 605 Balance 687.1 -275 - Medications Medications: Current Medications Albuterol/Ipratropium (Duoneb 3 Mg/0.5 Mg (3 Ml) Ud) 3 ml INH RQ6 [facility] Last Admin: 07/25/16 07:54 Dose: 3 ml Carvedilol (Coreg) 3.125 mg PO BID [facility] Last Admin: 07/25/16 10:16 Dose: 3.125 mg Dexamethasone (Decadron Inj) 4 mg IV Q8 [facility] Last Admin: 07/25/16 05:50 Dose: 4 mg Furosemide (Lasix) 20 mg IVP Q12 [facility] Last Admin: 07/25/16 10:14 Dose: 20 mg Heparin Sodium (Porcine) (Heparin) 5,000 units SC Q8 [facility] Last Admin: 07/25/16 05:50 Dose: 5,000 units Nitroglycerin/Dextrose (Nitroglycerin 50 Mg/250 Ml D5w) 50 mg in 250 mls @ 1.5 mls/hr IV .Q24H [facility]ESS[facility]; 5 MCG/MIN PRN Reason: Protocol Last Titration: 07/25/16 12:53 Dose: 0 mcg/min, 0 mls/hr Propofol (Diprivan) 1,000 mg in 100 mls @ 20.727 mls/hr IV .Q4H50M PRN; Protocol; 47.6 MCG/KG/MIN PRN Reason: TITRATE PER MD ORDER Last Titration: 07/25/16 12:54 Dose: 20 mcg/kg/min, 8.709 mls/hr Piperacillin Sod/Tazobactam Sod (Zosyn 2.25 Gm Iv Premix) 2.25 gm in 50 mls @ 100 mls/hr IVPB Q6H [facility] Last Admin: 07/25/16 12:27 Dose: 100 mls/hr Metronidazole (Flagyl) 500 mg in 100 mls @ 100 mls/hr IVPB Q8 [facility] Last Admin: 07/25/16 05:51 Dose: 100 mls/hr Nifedipine (Procardia) 10 mg PO BID [facility] Last Admin: 07/25/16 12:39 Dose: 10 mg Pantoprazole Sodium (Protonix Inj) 40 mg IVP DAILY [facility] Last Admin: 07/25/16 10:12 Dose: 40 mg - Labs Labs: 07/25/16 06:36 07/25/16 06:33 PT 11.2 SECONDS (9.7-12.2) 07/24/16 06:58 INR 1.0 07/24/16 06:58 APTT 25 SECONDS (21-34) 07/24/16 06:58
--- NOTE | 2016-07-25 15:32 | CP.CCUPN ---
CCU Subjective - Physician Review Events Since Last Encounter (Free Text): 07/25/16 15:32 patient clinically stable, alert and following commands while on vent. CCU Objective - Vital Signs / Intake & Output Vital Signs (Last 4 hours): Vital Signs Pulse Resp BP Pulse Ox 07/25/16 13:00 83 21 95 07/25/16 12:37 83 23 122/72 95 07/25/16 12:07 87 19 135/71 93 L 07/25/16 12:00 88 17 99 07/25/16 11:37 80 13 146/79 100 Intake and Output (Last 8hrs): Intake & Output 07/25/16 07/25/16 07/25/16 06:59 14:59 22:59 Intake Total 914.5 330 Output Total 450 605 Balance 464.5 -275 Weight 151 lb 5.76 oz Intake: IV 210 100 Intake, IV Amount 454.5 Right Distal Port 50 Internal Jugular Right Medial Port 400 Internal Jugular Right Proximal Port 4.5 Internal Jugular Tube Feeding 190 230 Other 60 Output: Urine 450 605 Urine, Voided 450 605 Stool 0 Other: # Bowel Movements 0 0 - Physical Exam Head: Positive for: Atraumatic, Normocephalic Mouth: Positive for: Moist Mucous Membranes Neck: Positive for: Normal Range of Motion Respiratory/Chest: Positive for: Good Air Exchange, Rhonchi. Negative for: Accessory Muscle Use Cardiovascular: Positive for: Regular Rate and Rhythm, Normal S1, S2. Negative for: Murmurs Abdomen: Positive for: Normal Bowel Sounds. Negative for: Tenderness, Distention Upper Extremity: Positive for: Normal Inspection. Negative for: Cyanosis, Edema Lower Extremity: Positive for: Normal Inspection. Negative for: Edema Skin: Positive for: Warm, Dry, Rashes (resolving) - Medications Active Medications: Active Medications Generic Name Dose Route Start Last Admin Trade Name Freq PRN Reason Stop Dose Admin Acetaminophen 650 mg 07/26/16 10:00 Tylenol 650 Mg Supp AL 07/26/16 10:01 ONCE ONE Albuterol/Ipratropium 3 ml 07/23/16 08:00 07/25/16 13:24 Duoneb 3 Mg/0.5 Mg (3 Ml) Ud INH 3 ml RQ6 JESSI Administration Carvedilol 3.125 mg 07/24/16 18:00 07/25/16 10:16 Coreg PO 3.125 mg BID JESSI Administration Dexamethasone 4 mg 07/23/16 14:00 07/25/16 14:55 Decadron Inj IV 4 mg Q8 JESSI Administration Diphenhydramine HCl 50 mg 07/26/16 10:00 Benadryl IVP 07/26/16 10:01 ONCE ONE Furosemide 20 mg 07/24/16 22:00 07/25/16 10:14 Lasix IVP 20 mg Q12 JESSI Administration Heparin Sodium (Porcine) 5,000 units 07/24/16 14:00 07/25/16 14:55 Heparin SC 5,000 units Q8 JESSI Administration Nitroglycerin/Dextrose 50 mg in 250 mls @ 1.5 mls/hr 07/23/16 05:15 07/25/16 12:53 Nitroglycerin 50 Mg/250 Ml D5w IV 0 mcg/min .Q24H JESSI 0 mls/hr Protocol Titration 5 MCG/MIN Propofol 1,000 mg in 100 mls @ 20.727 mls/hr 07/23/16 08:58 07/25/16 12:54 Diprivan IV 20 mcg/kg/min .Q4H50M PRN 8.709 mls/hr TITRATE PER MD ORDER Titration Protocol 47.6 MCG/KG/MIN Piperacillin Sod/Tazobactam Sod 2.25 gm in 50 mls @ 100 mls/hr 07/23/16 13:00 07/25/16 12:27 Zosyn 2.25 Gm Iv Premix IVPB 100 mls/hr Q6H JESSI Administration Metronidazole 500 mg in 100 mls @ 100 mls/hr 07/24/16 22:00 07/25/16 14:55 Flagyl IVPB 100 mls/hr Q8 JESSI Administration Calcium Gluconate 9.3 meq/ 270 mls @ 125 mls/hr 07/26/16 10:00 Sodium Chloride IVPB 07/26/16 12:09 ONCE ONE Methylprednisolone 100 mg 07/26/16 10:00 Solu-Medrol IVP 07/26/16 10:01 ONCE ONE Nifedipine 10 mg 07/25/16 12:00 07/25/16 12:39 Procardia PO 10 mg BID JESSI Administration Pantoprazole Sodium 40 mg 07/25/16 10:00 07/25/16 10:12 Protonix Inj IVP 40 mg DAILY JESSI Administration - Patient Studies Lab Studies: Microbiology Studies 07/23/16 06:00 MRSA Culture (Admit) - Final Naris MRSA NOT DETECTED Lab Studies 07/25/16 07/25/16 07/25/16 Range/Units 06:36 06:33 05:40 WBC 8.7 (4.8-10.8) K/uL RBC 3.25 L (3.80-5.20) Mil/uL Hgb 10.5 L (11.0-16.0) g/dL Hct 31.1 L (34.0-47.0) % MCV 95.8 (81.0-99.0) fL MCH 32.4 H (27.0-31.0) pg MCHC 33.8 (33.0-37.0) g/dL RDW 17.2 H (11.5-14.5) % Plt Count 60 L (130-400) K/uL MPV 11.1 (7.2-11.7) fL Neut % (Auto) 90.3 H (50.0-75.0) % Lymph % (Auto) 4.7 L (20.0-40.0) % Izard % (Auto) 4.9 (0.0-10.0) % Eos % (Auto) 0.0 (0.0-4.0) % Baso % (Auto) 0.1 (0.0-2.0) % Neut # 7.9 H (1.8-7.0) K/uL Lymph # 0.4 L (1.0-4.3) K/uL Izard # 0.4 (0.0-0.8) K/uL Eos # 0.0 (0.0-0.7) K/uL Baso # 0.0 (0.0-0.2) K/uL Neutrophils % (Manual) 91 H (50-75) % Band Neutrophils % 3 H (0-2) % Lymphocytes % (Manual) 2 L (20-40) % Monocytes % (Manual) 3 (0-10) % Metamyelocytes % 1 H (0-0) % Platelet Estimate Decreased L (NORMAL) Large Platelets Present Poikilocytosis (manual Slight Basophilic Stippling Slight Anisocytosis (manual) Slight Retic Count (0.5-1.5) % Fibrinogen (200-400) mg/dL Fibrin Degrad Products (NEGATIVE) Fibrin Degrad Prod, Qt (<10) ug/mL Puncture Site L bra pCO2 23 L (35-45) mm/Hg pO2 290 H (80-100) mm/Hg HCO3 33.1 H (21-28) mmol/L ABG pH 7.72 H* (7.35-7.45) ABG Total CO2 30.5 H (22-28) mmol/L ABG O2 Saturation 99.8 H (95-98) % ABG Base Excess 10.5 H (-2.0-3.0) mmol/L ABG Hemoglobin 10.6 L (11.7-17.4) g/dL ABG Carboxyhemoglobin 1.3 (0.5-1.5) % POC ABG HHb (Measured) 0.2 (0.0-5.0) % ABG Methemoglobin 1.8 (0.0-3.0) % Braxton Test Na A-a O2 Difference 109.0 mm/Hg Respiratory Index 0.4 Hgb O2 Saturation 96.8 (95.0-98.0) % Mechanical Rate 20 FiO2 60.0 % Tidal Volume 450 PEEP 10 Crit Value Called To Alicia sharp rn Crit Value Called By Maddy parks rt Crit Value Read Back Y Blood Gas Notified Time 612 Sodium 134 (132-148) mmol/L Potassium 3.3 L (3.6-5.2) mmol/L Chloride 91 L (98-107) mmol/L Carbon Dioxide 28 (22-30) mmol/L Anion Gap 18 (10-20) BUN 51 H (7-17) mg/dL Creatinine 3.7 H (0.7-1.2) MG/DL Est GFR ( Amer) 14 Est GFR (Non-Af Amer) 12 Random Glucose 165 H (65-105) mg/dL Calcium 8.7 (8.6-10.4) mg/dl Phosphorus 5.0 H (2.5-4.5) mg/dL Magnesium 2.1 (1.6-2.3) mg/dL Total Bilirubin 1.3 (0.2-1.3) mg/dL AST 28 (14-36) U/L ALT 37 (9-52) U/L Alkaline Phosphatase 61 (38-126) U/L Total Protein 6.2 L (6.3-8.3) g/dL Albumin 3.5 (3.5-5.0) g/dL Globulin 2.7 (2.2-3.9) gm/dL Albumin/Globulin Ratio 1.3 (1.0-2.1) Urine Chloride (32-290) mmol/L RADHA 6 Profile (NEGATIVE) Proteinase 3 (PR3) (<1.0) AI Myeloperoxidase Ab (<1.0) AI Hepatitis A IgM Ab (NEGATIVE) Hep Bs Antigen (NEGATIVE) Hep B Core IgM Ab (NEGATIVE) Hepatitis C Antibody (NEGATIVE) Blood Parasites Smear (NEGATIVE) 07/24/16 07/24/16 07/24/16 Range/Units 20:49 20:49 20:49 WBC (4.8-10.8) K/uL RBC (3.80-5.20) Mil/uL Hgb (11.0-16.0) g/dL Hct (34.0-47.0) % MCV (81.0-99.0) fL MCH (27.0-31.0) pg MCHC (33.0-37.0) g/dL RDW (11.5-14.5) % Plt Count (130-400) K/uL MPV (7.2-11.7) fL Neut % (Auto) (50.0-75.0) % Lymph % (Auto) (20.0-40.0) % Izard % (Auto) (0.0-10.0) % Eos % (Auto) (0.0-4.0) % Baso % (Auto) (0.0-2.0) % Neut # (1.8-7.0) K/uL Lymph # (1.0-4.3) K/uL Izard # (0.0-0.8) K/uL Eos # (0.0-0.7) K/uL Baso # (0.0-0.2) K/uL Neutrophils % (Manual) (50-75) % Band Neutrophils % (0-2) % Lymphocytes % (Manual) (20-40) % Monocytes % (Manual) (0-10) % Metamyelocytes % (0-0) % Platelet Estimate (NORMAL) Large Platelets Poikilocytosis (manual Basophilic Stippling Anisocytosis (manual) Retic Count 1.7 H (0.5-1.5) % Fibrinogen (200-400) mg/dL Fibrin Degrad Products (NEGATIVE) Fibrin Degrad Prod, Qt (<10) ug/mL Puncture Site pCO2 (35-45) mm/Hg pO2 (80-100) mm/Hg HCO3 (21-28) mmol/L ABG pH (7.35-7.45) ABG Total CO2 (22-28) mmol/L ABG O2 Saturation (95-98) % ABG Base Excess (-2.0-3.0) mmol/L ABG Hemoglobin (11.7-17.4) g/dL ABG Carboxyhemoglobin (0.5-1.5) % POC ABG HHb (Measured) (0.0-5.0) % ABG Methemoglobin (0.0-3.0) % Braxton Test A-a O2 Difference mm/Hg Respiratory Index Hgb O2 Saturation (95.0-98.0) % Mechanical Rate FiO2 % Tidal Volume PEEP Crit Value Called To Crit Value Called By Crit Value Read Back Blood Gas Notified Time Sodium (132-148) mmol/L Potassium (3.6-5.2) mmol/L Chloride (98-107) mmol/L Carbon Dioxide (22-30) mmol/L Anion Gap (10-20) BUN (7-17) mg/dL Creatinine (0.7-1.2) MG/DL Est GFR ( Amer) Est GFR (Non-Af Amer) Random Glucose (65-105) mg/dL Calcium (8.6-10.4) mg/dl Phosphorus (2.5-4.5) mg/dL Magnesium (1.6-2.3) mg/dL Total Bilirubin (0.2-1.3) mg/dL AST (14-36) U/L ALT (9-52) U/L Alkaline Phosphatase (38-126) U/L Total Protein (6.3-8.3) g/dL Albumin (3.5-5.0) g/dL Globulin (2.2-3.9) gm/dL Albumin/Globulin Ratio (1.0-2.1) Urine Chloride (32-290) mmol/L RADHA 6 Profile (NEGATIVE) Proteinase 3 (PR3) (<1.0) AI Myeloperoxidase Ab (<1.0) AI Hepatitis A IgM Ab Negative (NEGATIVE) Hep Bs Antigen Negative (NEGATIVE) Hep B Core IgM Ab Negative (NEGATIVE) Hepatitis C Antibody Negative (NEGATIVE) Blood Parasites Smear Negative (NEGATIVE) 07/24/16 07/24/16 07/23/16 Range/Units 16:09 16:09 13:34 WBC 8.3 (4.8-10.8) K/uL RBC 2.89 L (3.80-5.20) Mil/uL Hgb 9.2 L (11.0-16.0) g/dL Hct 27.9 L (34.0-47.0) % MCV 96.5 (81.0-99.0) fL MCH 32.0 H (27.0-31.0) pg MCHC 33.2 (33.0-37.0) g/dL RDW 16.9 H (11.5-14.5) % Plt Count 65 L (130-400) K/uL MPV 10.4 (7.2-11.7) fL Neut % (Auto) (50.0-75.0) % Lymph % (Auto) (20.0-40.0) % Izard % (Auto) (0.0-10.0) % Eos % (Auto) (0.0-4.0) % Baso % (Auto) (0.0-2.0) % Neut # (1.8-7.0) K/uL Lymph # (1.0-4.3) K/uL Izard # (0.0-0.8) K/uL Eos # (0.0-0.7) K/uL Baso # (0.0-0.2) K/uL Neutrophils % (Manual) (50-75) % Band Neutrophils % (0-2) % Lymphocytes % (Manual) (20-40) % Monocytes % (Manual) (0-10) % Metamyelocytes % (0-0) % Platelet Estimate (NORMAL) Large Platelets Poikilocytosis (manual Basophilic Stippling Anisocytosis (manual) Retic Count (0.5-1.5) % Fibrinogen 341 (200-400) mg/dL Fibrin Degrad Products Positive H (NEGATIVE) Fibrin Degrad Prod, Qt >10<40 H (<10) ug/mL Puncture Site pCO2 (35-45) mm/Hg pO2 (80-100) mm/Hg HCO3 (21-28) mmol/L ABG pH (7.35-7.45) ABG Total CO2 (22-28) mmol/L ABG O2 Saturation (95-98) % ABG Base Excess (-2.0-3.0) mmol/L ABG Hemoglobin (11.7-17.4) g/dL ABG Carboxyhemoglobin (0.5-1.5) % POC ABG HHb (Measured) (0.0-5.0) % ABG Methemoglobin (0.0-3.0) % Braxton Test A-a O2 Difference mm/Hg Respiratory Index Hgb O2 Saturation (95.0-98.0) % Mechanical Rate FiO2 % Tidal Volume PEEP Crit Value Called To Crit Value Called By Crit Value Read Back Blood Gas Notified Time Sodium (132-148) mmol/L Potassium (3.6-5.2) mmol/L Chloride (98-107) mmol/L Carbon Dioxide (22-30) mmol/L Anion Gap (10-20) BUN (7-17) mg/dL Creatinine (0.7-1.2) MG/DL Est GFR ( Amer) Est GFR (Non-Af Amer) Random Glucose (65-105) mg/dL Calcium (8.6-10.4) mg/dl Phosphorus (2.5-4.5) mg/dL Magnesium (1.6-2.3) mg/dL Total Bilirubin (0.2-1.3) mg/dL AST (14-36) U/L ALT (9-52) U/L Alkaline Phosphatase (38-126) U/L Total Protein (6.3-8.3) g/dL Albumin (3.5-5.0) g/dL Globulin (2.2-3.9) gm/dL Albumin/Globulin Ratio (1.0-2.1) Urine Chloride (32-290) mmol/L RADHA 6 Profile (NEGATIVE) Proteinase 3 (PR3) <1.0 (<1.0) AI Myeloperoxidase Ab <1.0 (<1.0) AI Hepatitis A IgM Ab (NEGATIVE) Hep Bs Antigen (NEGATIVE) Hep B Core IgM Ab (NEGATIVE) Hepatitis C Antibody (NEGATIVE) Blood Parasites Smear (NEGATIVE) 07/23/16 07/22/16 Range/Units 13:34 07:51 WBC (4.8-10.8) K/uL RBC (3.80-5.20) Mil/uL Hgb (11.0-16.0) g/dL Hct (34.0-47.0) % MCV (81.0-99.0) fL MCH (27.0-31.0) pg MCHC (33.0-37.0) g/dL RDW (11.5-14.5) % Plt Count (130-400) K/uL MPV (7.2-11.7) fL Neut % (Auto) (50.0-75.0) % Lymph % (Auto) (20.0-40.0) % Izard % (Auto) (0.0-10.0) % Eos % (Auto) (0.0-4.0) % Baso % (Auto) (0.0-2.0) % Neut # (1.8-7.0) K/uL Lymph # (1.0-4.3) K/uL Izard # (0.0-0.8) K/uL Eos # (0.0-0.7) K/uL Baso # (0.0-0.2) K/uL Neutrophils % (Manual) (50-75) % Band Neutrophils % (0-2) % Lymphocytes % (Manual) (20-40) % Monocytes % (Manual) (0-10) % Metamyelocytes % (0-0) % Platelet Estimate (NORMAL) Large Platelets Poikilocytosis (manual Basophilic Stippling Anisocytosis (manual) Retic Count (0.5-1.5) % Fibrinogen (200-400) mg/dL Fibrin Degrad Products (NEGATIVE) Fibrin Degrad Prod, Qt (<10) ug/mL Puncture Site pCO2 (35-45) mm/Hg pO2 (80-100) mm/Hg HCO3 (21-28) mmol/L ABG pH (7.35-7.45) ABG Total CO2 (22-28) mmol/L ABG O2 Saturation (95-98) % ABG Base Excess (-2.0-3.0) mmol/L ABG Hemoglobin (11.7-17.4) g/dL ABG Carboxyhemoglobin (0.5-1.5) % POC ABG HHb (Measured) (0.0-5.0) % ABG Methemoglobin (0.0-3.0) % Braxton Test A-a O2 Difference mm/Hg Respiratory Index Hgb O2 Saturation (95.0-98.0) % Mechanical Rate FiO2 % Tidal Volume PEEP Crit Value Called To Crit Value Called By Crit Value Read Back Blood Gas Notified Time Sodium (132-148) mmol/L Potassium (3.6-5.2) mmol/L Chloride (98-107) mmol/L Carbon Dioxide (22-30) mmol/L Anion Gap (10-20) BUN (7-17) mg/dL Creatinine (0.7-1.2) MG/DL Est GFR ( Amer) Est GFR (Non-Af Amer) Random Glucose (65-105) mg/dL Calcium (8.6-10.4) mg/dl Phosphorus (2.5-4.5) mg/dL Magnesium (1.6-2.3) mg/dL Total Bilirubin (0.2-1.3) mg/dL AST (14-36) U/L ALT (9-52) U/L Alkaline Phosphatase (38-126) U/L Total Protein (6.3-8.3) g/dL Albumin (3.5-5.0) g/dL Globulin (2.2-3.9) gm/dL Albumin/Globulin Ratio (1.0-2.1) Urine Chloride 78 (32-290) mmol/L RADHA 6 Profile Negative (NEGATIVE) Proteinase 3 (PR3) (<1.0) AI Myeloperoxidase Ab (<1.0) AI Hepatitis A IgM Ab (NEGATIVE) Hep Bs Antigen (NEGATIVE) Hep B Core IgM Ab (NEGATIVE) Hepatitis C Antibody (NEGATIVE) Blood Parasites Smear (NEGATIVE) Laboratory Results - last 24 hr 07/22/16 07/23/16 07/23/16 07:51 13:34 13:34 WBC RBC Hgb Hct MCV MCH MCHC RDW Plt Count MPV Neut % (Auto) Lymph % (Auto) Izard % (Auto) Eos % (Auto) Baso % (Auto) Neut # Lymph # Izard # Eos # Baso # Neutrophils % (Manual) Band Neutrophils % Lymphocytes % (Manual) Monocytes % (Manual) Metamyelocytes % Platelet Estimate Large Platelets Poikilocytosis (manual Basophilic Stippling Anisocytosis (manual) Retic Count Fibrinogen Fibrin Degrad Products Fibrin Degrad Prod, Qt Puncture Site pCO2 pO2 HCO3 ABG pH ABG Total CO2 ABG O2 Saturation ABG Base Excess ABG Hemoglobin ABG Carboxyhemoglobin POC ABG HHb (Measured) ABG Methemoglobin Braxton Test A-a O2 Difference Respiratory Index Hgb O2 Saturation Mechanical Rate FiO2 Tidal Volume PEEP Crit Value Called To Crit Value Called By Crit Value Read Back Blood Gas Notified Time Sodium Potassium Chloride Carbon Dioxide Anion Gap BUN Creatinine Est GFR ( Amer) Est GFR (Non-Af Amer) Random Glucose Calcium Phosphorus Magnesium Total Bilirubin AST ALT Alkaline Phosphatase Total Protein Albumin Globulin Albumin/Globulin Ratio Urine Chloride 78 RADHA 6 Profile Negative Proteinase 3 (PR3) <1.0 Myeloperoxidase Ab <1.0 Hepatitis A IgM Ab Hep Bs Antigen Hep B Core IgM Ab Hepatitis C Antibody Blood Parasites Smear 07/24/16 07/24/16 07/24/16 16:09 16:09 20:49 WBC 8.3 RBC 2.89 L Hgb 9.2 L Hct 27.9 L MCV 96.5 MCH 32.0 H MCHC 33.2 RDW 16.9 H Plt Count 65 L MPV 10.4 Neut % (Auto) Lymph % (Auto) Izard % (Auto) Eos % (Auto) Baso % (Auto) Neut # Lymph # Izard # Eos # Baso # Neutrophils % (Manual) Band Neutrophils % Lymphocytes % (Manual) Monocytes % (Manual) Metamyelocytes % Platelet Estimate Large Platelets Poikilocytosis (manual Basophilic Stippling Anisocytosis (manual) Retic Count Fibrinogen 341 Fibrin Degrad Products Positive H Fibrin Degrad Prod, Qt >10<40 H Puncture Site pCO2 pO2 HCO3 ABG pH ABG Total CO2 ABG O2 Saturation ABG Base Excess ABG Hemoglobin ABG Carboxyhemoglobin POC ABG HHb (Measured) ABG Methemoglobin Braxton Test A-a O2 Difference Respiratory Index Hgb O2 Saturation Mechanical Rate FiO2 Tidal Volume PEEP Crit Value Called To Crit Value Called By Crit Value Read Back Blood Gas Notified Time Sodium Potassium Chloride Carbon Dioxide Anion Gap BUN Creatinine Est GFR ( Amer) Est GFR (Non-Af Amer) Random Glucose Calcium Phosphorus Magnesium Total Bilirubin AST ALT Alkaline Phosphatase Total Protein Albumin Globulin Albumin/Globulin Ratio Urine Chloride RADHA 6 Profile Proteinase 3 (PR3) Myeloperoxidase Ab Hepatitis A IgM Ab Negative Hep Bs Antigen Negative Hep B Core IgM Ab Negative Hepatitis C Antibody Negative Blood Parasites Smear 07/24/16 07/24/16 07/25/16 20:49 20:49 05:40 WBC RBC Hgb Hct MCV MCH MCHC RDW Plt Count MPV Neut % (Auto) Lymph % (Auto) Izard % (Auto) Eos % (Auto) Baso % (Auto) Neut # Lymph # Izard # Eos # Baso # Neutrophils % (Manual) Band Neutrophils % Lymphocytes % (Manual) Monocytes % (Manual) Metamyelocytes % Platelet Estimate Large Platelets Poikilocytosis (manual Basophilic Stippling Anisocytosis (manual) Retic Count 1.7 H Fibrinogen Fibrin Degrad Products Fibrin Degrad Prod, Qt Puncture Site L bra pCO2 23 L pO2 290 H HCO3 33.1 H ABG pH 7.72 H* ABG Total CO2 30.5 H ABG O2 Saturation 99.8 H ABG Base Excess 10.5 H ABG Hemoglobin 10.6 L ABG Carboxyhemoglobin 1.3 POC ABG HHb (Measured) 0.2 ABG Methemoglobin 1.8 Braxton Test Na A-a O2 Difference 109.0 Respiratory Index 0.4 Hgb O2 Saturation 96.8 Mechanical Rate 20 FiO2 60.0 Tidal Volume 450 PEEP 10 Crit Value Called To Alicia hsarp rn Crit Value Called By Maddy parks rt Crit Value Read Back Y Blood Gas Notified Time 612 Sodium Potassium Chloride Carbon Dioxide Anion Gap BUN Creatinine Est GFR ( Amer) Est GFR (Non-Af Amer) Random Glucose Calcium Phosphorus Magnesium Total Bilirubin AST ALT Alkaline Phosphatase Total Protein Albumin Globulin Albumin/Globulin Ratio Urine Chloride RADHA 6 Profile Proteinase 3 (PR3) Myeloperoxidase Ab Hepatitis A IgM Ab Hep Bs Antigen Hep B Core IgM Ab Hepatitis C Antibody Blood Parasites Smear Negative 07/25/16 07/25/16 06:33 06:36 WBC 8.7 RBC 3.25 L Hgb 10.5 L Hct 31.1 L MCV 95.8 MCH 32.4 H MCHC 33.8 RDW 17.2 H Plt Count 60 L MPV 11.1 Neut % (Auto) 90.3 H Lymph % (Auto) 4.7 L Izard % (Auto) 4.9 Eos % (Auto) 0.0 Baso % (Auto) 0.1 Neut # 7.9 H Lymph # 0.4 L Izard # 0.4 Eos # 0.0 Baso # 0.0 Neutrophils % (Manual) 91 H Band Neutrophils % 3 H Lymphocytes % (Manual) 2 L Monocytes % (Manual) 3 Metamyelocytes % 1 H Platelet Estimate Decreased L Large Platelets Present Poikilocytosis (manual Slight Basophilic Stippling Slight Anisocytosis (manual) Slight Retic Count Fibrinogen Fibrin Degrad Products Fibrin Degrad Prod, Qt Puncture Site pCO2 pO2 HCO3 ABG pH ABG Total CO2 ABG O2 Saturation ABG Base Excess ABG Hemoglobin ABG Carboxyhemoglobin POC ABG HHb (Measured) ABG Methemoglobin Braxton Test A-a O2 Difference Respiratory Index Hgb O2 Saturation Mechanical Rate FiO2 Tidal Volume PEEP Crit Value Called To Crit Value Called By Crit Value Read Back Blood Gas Notified Time Sodium 134 Potassium 3.3 L Chloride 91 L Carbon Dioxide 28 Anion Gap 18 BUN 51 H Creatinine 3.7 H Est GFR ( Amer) 14 Est GFR (Non-Af Amer) 12 Random Glucose 165 H Calcium 8.7 Phosphorus 5.0 H Magnesium 2.1 Total Bilirubin 1.3 AST 28 ALT 37 Alkaline Phosphatase 61 Total Protein 6.2 L Albumin 3.5 Globulin 2.7 Albumin/Globulin Ratio 1.3 Urine Chloride RADHA 6 Profile Proteinase 3 (PR3) Myeloperoxidase Ab Hepatitis A IgM Ab Hep Bs Antigen Hep B Core IgM Ab Hepatitis C Antibody Blood Parasites Smear Review of Systems - Review of Systems Systems not reviewed;Unavailable: Intubated Critical Care Progress Note - Ventilator Checklist Head of Bed 30 Degrees: Yes Daily Sedation Vacation: Yes Daily Assessment of Readiness to Wean: Yes Daily Spontaneous Breathing Trial: Yes PUD Prophalyxis: Yes DVT Prophylaxis: Yes Assessment/Plan (1) TTP (thrombotic thrombocytopenic purpura) Assessment and plan: 80-year-old female with past medical history of systolic CHF (EF-10%). Presented with acute renal failure, acute respiratory failure, spherocytosis. Thrombocytopenia - current suspicion of TTP. Neuro: Alert and following commands. Holding sedation. Pulm: Acute respiratory failure, starting pressure support trials. CV: Hemodynamically stable. Hypertensive on a nitro drip, titrating off. Starting nifedipine by mouth twice a day, continue Coreg by mouth twice a day. 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 Patient getting plasmapheresis (first time 07/24), and again tomorrow. Decadron 4 mg IV every 8h. Follow-up serologies, ADAMTS. Rheum: Scleroderma, patient was on methotrexate at home. Renal: Nonoliguric acute kidney injury. Endo: No acute issues GI: Nothing by mouth, Isosource at 40 ID: Uncertain source of sepsis as an etiology of TTP, continue Zosyn. ID consulted. DVT proph - heparin subcutaneous GI proph - Protonix sharp for strict I/O's during acute illness Code status - full code Crtical Care Time spent 35 minutes Multi-disciplinary rounds were performed with house staff, nursing, speech therapy, respiratory therapy, pharmacy and nutrition with integrated input from the primary team/attending and other consulting services. The documented time is cumulative and includes review of patient data/exams/labs/chart review and examination of the patient on rounds and throughout the day; time is exclusive of any procedures or teaching time. Current Visit: Yes Status: Acute
--- NOTE | 2016-07-25 15:44 | CP.PCM.PN ---
Subjective - Date & Time of Evaluation Date of Evaluation: 07/25/16 Time of Evaluation: 08:00 - Subjective Subjective: AROUSABLE ON VENT CULTURES AND SEROLOGIES SO FAR NEG CONT IV RX Objective - Vital Signs/Intake and Output Vital Signs (last 24 hours): Temp Pulse Resp BP Pulse Ox 98.0 F 83 21 122/72 95 07/25/16 08:00 07/25/16 13:00 07/25/16 13:00 07/25/16 12:37 07/25/16 13:00 Intake and Output: 07/25/16 07/25/16 06:59 18:59 Intake Total 1207.1 330 Output Total 520 605 Balance 687.1 -275 - Medications Medications: Current Medications Acetaminophen (Tylenol 650 Mg Supp) 650 mg CA ONCE ONE Stop: 07/26/16 10:01 Albuterol/Ipratropium (Duoneb 3 Mg/0.5 Mg (3 Ml) Ud) 3 ml INH RQ6 [facility] Last Admin: 07/25/16 13:24 Dose: 3 ml Carvedilol (Coreg) 3.125 mg PO BID [facility] Last Admin: 07/25/16 10:16 Dose: 3.125 mg Dexamethasone (Decadron Inj) 4 mg IV Q8 [facility] Last Admin: 07/25/16 14:55 Dose: 4 mg Diphenhydramine HCl (Benadryl) 50 mg IVP ONCE ONE Stop: 07/26/16 10:01 Furosemide (Lasix) 20 mg IVP Q12 [facility] Last Admin: 07/25/16 10:14 Dose: 20 mg Heparin Sodium (Porcine) (Heparin) 5,000 units SC Q8 [facility] Last Admin: 07/25/16 14:55 Dose: 5,000 units Propofol (Diprivan) 1,000 mg in 100 mls @ 20.727 mls/hr IV .Q4H50M PRN; Protocol; 47.6 MCG/KG/MIN PRN Reason: TITRATE PER MD ORDER Last Titration: 07/25/16 12:54 Dose: 20 mcg/kg/min, 8.709 mls/hr Piperacillin Sod/Tazobactam Sod (Zosyn 2.25 Gm Iv Premix) 2.25 gm in 50 mls @ 100 mls/hr IVPB Q6H [facility] Last Admin: 07/25/16 12:27 Dose: 100 mls/hr Metronidazole (Flagyl) 500 mg in 100 mls @ 100 mls/hr IVPB Q8 [facility] Last Admin: 07/25/16 14:55 Dose: 100 mls/hr Calcium Gluconate 9.3 meq/ (Sodium Chloride) 270 mls @ 125 mls/hr IVPB ONCE ONE Stop: 07/26/16 12:09 Methylprednisolone (Solu-Medrol) 100 mg IVP ONCE ONE Stop: 07/26/16 10:01 Nifedipine (Procardia) 10 mg PO BID [facility] Last Admin: 07/25/16 12:39 Dose: 10 mg Pantoprazole Sodium (Protonix Inj) 40 mg IVP DAILY [facility] Last Admin: 07/25/16 10:12 Dose: 40 mg - Labs Labs: 07/25/16 06:36 07/25/16 06:33 PT 11.2 SECONDS (9.7-12.2) 07/24/16 06:58 INR 1.0 07/24/16 06:58 APTT 25 SECONDS (21-34) 07/24/16 06:58 - Constitutional Appears: Toxic, Confused, Cachectic, Chronically Ill - Head Exam Head Exam: NORMOCEPHALIC - Eye Exam Eye Exam: PERRL. absent: Scleral icterus - ENT Exam ENT Exam: Mucous Membranes Dry, Normal External Ear Exam - Neck Exam Neck Exam: absent: Lymphadenopathy - Respiratory Exam Respiratory Exam: Decreased Breath Sounds, Rhonchi - Cardiovascular Exam Cardiovascular Exam: REGULAR RHYTHM, +S1, +S2 - GI/Abdominal Exam GI & Abdominal Exam: Distended, Soft. absent: Tenderness - Rectal Exam Rectal Exam: Deferred - Exam Exam: NORMAL INSPECTION - Extremities Exam Extremities Exam: absent: Pedal Edema - Back Exam Back Exam: absent: CVA tenderness (L), CVA tenderness (R) - Neurological Exam Neurological Exam: Alert, Awake - Psychiatric Exam Psychiatric exam: Normal Mood Assessment and Plan (1) Acute respiratory failure requiring reintubation Status: Acute (2) CHF (congestive heart failure) Status: Acute (3) Dehydration Status: Acute (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 - Assessment and Plan (Free Text) Assessment: CONT SUPPORTIVE CARE/ IV ANTIBIOTICS
--- NOTE | 2016-07-25 18:02 | CP.PCM.PN ---
Subjective - Date & Time of Evaluation Date of Evaluation: 07/25/16 Time of Evaluation: 08:01 Objective - Vital Signs/Intake and Output Vital Signs (last 24 hours): Temp Pulse Resp BP Pulse Ox 98.8 F 76 21 110/61 96 07/25/16 16:00 07/25/16 16:07 07/25/16 16:07 07/25/16 16:07 07/25/16 16:07 Intake and Output: 07/25/16 07/25/16 06:59 18:59 Intake Total 1207.1 450 Output Total 520 780 Balance 687.1 -330 - Medications Medications: Current Medications Acetaminophen (Tylenol 650 Mg Supp) [address] ONCE ONE Stop: 07/26/16 10:01 Albuterol/Ipratropium (Duoneb 3 Mg/0.5 Mg (3 Ml) Ud) 3 ml INH RQ6 [facility] Last Admin: 07/25/16 13:24 Dose: 3 ml Carvedilol (Coreg) 3.125 mg PO BID [facility] Last Admin: 07/25/16 17:59 Dose: 3.125 mg Dexamethasone (Decadron Inj) 4 mg IV Q8 [facility] Last Admin: 07/25/16 14:55 Dose: 4 mg Diphenhydramine HCl (Benadryl) 50 mg IVP ONCE ONE Stop: 07/26/16 10:01 Furosemide (Lasix) 20 mg IVP Q12 [facility] Last Admin: 07/25/16 10:14 Dose: 20 mg Heparin Sodium (Porcine) (Heparin) 5,000 units SC Q8 [facility] Last Admin: 07/25/16 14:55 Dose: 5,000 units Propofol (Diprivan) 1,000 mg in 100 mls @ 20.727 mls/hr IV .Q4H50M PRN; Protocol; 47.6 MCG/KG/MIN PRN Reason: TITRATE PER MD ORDER Last Titration: 07/25/16 12:54 Dose: 20 mcg/kg/min, 8.709 mls/hr Piperacillin Sod/Tazobactam Sod (Zosyn 2.25 Gm Iv Premix) 2.25 gm in 50 mls @ 100 mls/hr IVPB Q6H [facility] Last Admin: 07/25/16 17:59 Dose: 100 mls/hr Metronidazole (Flagyl) 500 mg in 100 mls @ 100 mls/hr IVPB Q8 [facility] Last Admin: 07/25/16 14:55 Dose: 100 mls/hr Calcium Gluconate 9.3 meq/ (Sodium Chloride) 270 mls @ 125 mls/hr IVPB ONCE ONE Stop: 07/26/16 12:09 Methylprednisolone (Solu-Medrol) 100 mg IVP ONCE ONE Stop: 07/26/16 10:01 Nifedipine (Procardia) 10 mg PO BID [facility] Last Admin: 07/25/16 17:59 Dose: 10 mg Pantoprazole Sodium (Protonix Inj) 40 mg IVP DAILY [facility] Last Admin: 07/25/16 10:12 Dose: 40 mg - Labs Labs: 07/25/16 06:36 07/25/16 06:33 PT 11.2 SECONDS (9.7-12.2) 07/24/16 06:58 INR 1.0 07/24/16 06:58 APTT 25 SECONDS (21-34) 07/24/16 06:58
--- NOTE | 2016-07-25 23:36 | PN ---
DATE: 07/25/2016 The patient is located in ICU bed 6. REQUESTED BY: Dr. Anthony Mclaughlin. REASON FOR RENAL CONSULTATION: Acute renal failure, thrombocytopenia, altered mental status, possible TTP and continuation of the plasmapheresis HISTORY OF PRESENT ILLNESS: The patient is an 80-year-old elderly female from [facility] who recently came, after staying 5 months, 2 weeks ago to ____ and the patient was admitted with chief complaints of nausea, vomiting, diarrhea, abdominal pain and increased BUN and creatinine, low platelets with altered mental status 2-3 days prior to the admission. The patient was also intubated for the respiratory failure and started on plasmapheresis, underwent plasmapheresis early this morning. The patient remains on a ventilator, now arousable, not in distress. PHYSICAL EXAMINATION: GENERAL: This is an 80-year-old elderly female, looks appropriate for her age, not in distress, on ventilator. HEENT: Pupils normal, reactive to light and accommodation. Conjunctivae pink. Sclerae anicteric. Tongue is moist. NECK: No thyroid enlargement. Trachea is midline. LUNGS: Symmetric on both sides. Bilateral breath sounds present. Occasional basal crackles present. CARDIOVASCULAR: [place] in the fifth intercostal space midclavicular line. S1 and S2 audible. No murmur or gallop. ABDOMEN: Normal in appearance, soft, tympanic. No guarding, no rigidity. No hepatosplenomegaly. CENTRAL NERVOUS SYSTEM: The patient is on ventilator, arousable, following simple commands. Sensory and motor system is grossly within normal limits. Cranial nerves II through XII grossly intact. EXTREMITIES: No cyanosis, no clubbing. Trace edema present in both upper and lower extremities. VITAL SIGNS: Blood pressure 144/78, pulse 80, respirations 20, temperature is 97.6, saturation 100%, height 5 feet 4 inches and weight is 151 pounds. INS AND OUTS: Intake is 2666 mL and output is 1640 and urine volume is 1640. CURRENT MEDICATIONS: Include as follows: Benadryl 50 mg IV x 1 this morning and calcium gluconate 2 grams x 1, Coreg 3.125 mg p.o. b.i.d., Decadron 4 mg IV q. 8 hours and Diprivan, DuoNeb inhaler, Flagyl 500 mg q. 8 hours, subcutaneous heparin 5000 q. 8 hours, Lasix 20 mg IV push q. 12 hours, nifedipine 10 mg p.o. b.i.d. and Protonix 40 mg IV daily and Solu-Medrol 100 mg x 1, Tylenol and Zosyn 2.25 grams IV q. 6 hours. LABORATORY DATA: Include as follows as of 07/25/2016: WBC 8.7, hemoglobin 10.5 , hematocrit is 31.1, platelets 60, neutrophils 91, bands 3, lymph 2, monos 3 and metamyelocytes 1%. Other laboratory data: ABG ph 7.72 and pCO2 of 23, pO2 290, bicarbonate 33 and saturation 99.8 with vent settings AC 20, tidal volume of 450 and FiO2 60%, PEEP of 5. Other laboratory data: Sodium 134, potassium 3.3, chloride 91, CO2 28, BUN 51, creatinine 3.7, glucose 165, calcium 8.7, phosphorus is 5, magnesium 2.1, total bilirubin 1.3, AST 28, ALT 37 , alkaline phosphatase 61. SUMMARY: The patient is an 80-year-old elderly female with a history of hypertension, questionable chronic kidney disease, was admitted with nausea, vomiting, diarrhea, abdominal pain and increased BUN and creatinine, low platelets and also elevated LDH and altered mental status. 1. Renal failure, acute renal failure versus [id number] kidney disease, rule out thrombotic microangiopathy secondary to possible TTP. 2. Anemia, thrombocytopenia with elevated LDH, rule out TTP. 3. Cardiomyopathy. 4. Respiratory failure. 5. Hypokalemia 6. resp. alkalosis The patient underwent first plasmapheresis early this morning, completed around 2:30-3 a.m. and will schedule for next plasmapheresis on Thursday, early Thursday morning. Discussed with correctional officer captain in rounds and also with the nurse who was taking care of the patient regarding the plan and also discussed with the patient's family at bedside. Repeat labs in a.m. CBC, BMP, PT, PTT, haptoglobin and LDH and fibrinogen levels. We will monitor platelets, we will discuss with the inspector motor vehicles. Thank you for allowing me to participate in your patient's care. Time spent is 35 minutes. Horacio Graham MD cc: [id number] TT: 07/25/2016 23:36:27 Confirmation # [id number] Dictation # [id number] MTDD
[2016-07-26] MEDS: Piperacill/Tazo 2.25gm in Dex 2.25 GM/50 ML BAG IVPB SCH ×4 (00:41→18:46)
[2016-07-26] MEDS: Albuterol-Ipratrop 3 mg / 0.5 (3 ml) UD INH SCH ×4 (01:13→20:02)
[2016-07-26 05:28] LABS: ARTERIAL BLOOD GAS HCO3 31.1 mmol/L (21-28); ARTERIAL BLOOD GAS HEMOGLOBIN 10.8 g/dL (11.7-17.4); ARTERIAL BLOOD GAS O2 SAT 99.2 % (95-98); ARTERIAL BLOOD GAS PCO2 46 mm/Hg (35-45); ARTERIAL BLOOD GAS PH 7.46 (7.35-7.45); ARTERIAL BLOOD GAS PO2 95 mm/Hg (80-100); ARTERIAL BLOOD GAS TCO2 34.1 mmol/L (22-28)
[2016-07-26] MEDS: Dexamethasone 4 mg/1 ml IV SCH ×3 (05:30→22:00)
[2016-07-26] MEDS: metroNIDAZOLE IV 500 mg/100 ml 500 MG/100 ML BAG IVPB SCH ×3 (05:30→22:00)
[2016-07-26 06:57] LABS: HEMOGLOBIN 10.6 g/dL (11.0-16.0); MEAN CELL VOLUME 97.9 fL (81.0-99.0); MEAN CORPUSCULAR HEMOGLOBIN 32.2 pg (27.0-31.0); MEAN CORPUSCULAR HGB CONC 32.9 g/dL (33.0-37.0); MEAN PLATELET VOLUME 11.2 fL (7.2-11.7); RBC 3.29 Mil/uL (3.80-5.20); RED CELL DISTRIBUTION WIDTH 17.6 % (11.5-14.5); WHITE BLOOD COUNT 12.1 K/uL (4.8-10.8)
--- NOTE | 2016-07-26 07:00 | CP.PCM.PN ---
Subjective - Date & Time of Evaluation Date of Evaluation: 07/26/16 Time of Evaluation: 07:00 Objective - Vital Signs/Intake and Output Vital Signs (last 24 hours): Temp Pulse Resp BP Pulse Ox 98.8 F 75 21 150/81 97 07/26/16 04:00 07/26/16 06:13 07/26/16 06:13 07/26/16 06:13 07/26/16 06:13 Intake and Output: 07/26/16 07/26/16 06:59 18:59 Intake Total 840 Output Total 575 Balance 265 - Medications Medications: Current Medications Acetaminophen (Tylenol 650 Mg Supp) 650 mg DE ONCE ONE Stop: 07/26/16 10:01 Albuterol/Ipratropium (Duoneb 3 Mg/0.5 Mg (3 Ml) Ud) 3 ml INH RQ6 [facility] Last Admin: 07/26/16 01:13 Dose: 3 ml Carvedilol (Coreg) 3.125 mg PO BID [facility] Last Admin: 07/25/16 17:59 Dose: 3.125 mg Dexamethasone (Decadron Inj) 4 mg IV Q8 [facility] Last Admin: 07/26/16 05:30 Dose: 4 mg Diphenhydramine HCl (Benadryl) 50 mg IVP ONCE ONE Stop: 07/26/16 10:01 Furosemide (Lasix) 20 mg IVP Q12 [facility] Last Admin: 07/25/16 21:54 Dose: 20 mg Heparin Sodium (Porcine) (Heparin) 5,000 units SC Q8 [facility] Last Admin: 07/26/16 05:30 Dose: 5,000 units Propofol (Diprivan) 1,000 mg in 100 mls @ 20.727 mls/hr IV .Q4H50M PRN; Protocol; 47.6 MCG/KG/MIN PRN Reason: TITRATE PER MD ORDER Last Titration: 07/25/16 13:20 Dose: Infused Piperacillin Sod/Tazobactam Sod (Zosyn 2.25 Gm Iv Premix) 2.25 gm in 50 mls @ 100 mls/hr IVPB Q6H [facility] Last Admin: 07/26/16 06:28 Dose: 100 mls/hr Metronidazole (Flagyl) 500 mg in 100 mls @ 100 mls/hr IVPB Q8 [facility] Last Admin: 07/26/16 05:30 Dose: 100 mls/hr Calcium Gluconate 9.3 meq/ (Sodium Chloride) 270 mls @ 125 mls/hr IVPB ONCE ONE Stop: 07/26/16 12:09 Methylprednisolone (Solu-Medrol) 100 mg IVP ONCE ONE Stop: 07/26/16 10:01 Nifedipine (Procardia) 10 mg PO BID [facility] Last Admin: 07/25/16 17:59 Dose: 10 mg Pantoprazole Sodium (Protonix Inj) 40 mg IVP DAILY [facility] Last Admin: 07/25/16 10:12 Dose: 40 mg - Labs Labs: 07/25/16 06:36 07/25/16 06:33 PT 11.2 SECONDS (9.7-12.2) 07/24/16 06:58 INR 1.0 07/24/16 06:58 APTT 25 SECONDS (21-34) 07/24/16 06:58
[2016-07-26 07:08] LABS: ALBUMIN 3.1 g/dL (3.5-5.0)
[2016-07-26 07:11] LABS: ALB/GLOB RATIO 1.1 (1.0-2.1)
[2016-07-26 07:12] LABS: MAGNESIUM 2.3 mg/dL (1.6-2.3)
[2016-07-26 07:29] LABS: PARTIAL THROMBOPLASTIN TIME 28 SECONDS (21-34); PROTHROMBIN TIME 11.3 SECONDS (9.7-12.2)
[2016-07-26 07:32] LABS: FIBRINOGEN 225 mg/dL (200-400)
[2016-07-26 07:33] LABS: FDP INTERPRETATION POSITIVE (NEGATIVE)
[2016-07-26 07:34] LABS: FDP QUANTITY >40 ug/mL (<10)
[2016-07-26] MEDS ORDERED: DiphenhydrAMINE 50 mg/ml Inj IVP ONE ×2 (10:00→15:15)
[2016-07-26] MEDS ORDERED: MethylPREDNISolone 40 mg Vial IVP ONE ×2 (10:00→15:15)
[2016-07-26] MEDS ORDERED: Calcium Gluconate 9.3 MEQ in Sodium Chloride 0.9% 250 ML IVPB ONE (10:00)
--- NOTE | 2016-07-26 11:08 | RAD ---
HISTORY: vented COMPARISON: 07/25/2016 FINDINGS: The endotracheal tube terminates 2.5 cm proximal to the natalia. The nasogastric tube terminates in the stomach. The right IJV line terminates at the cavoatrial junction. LUNGS: There is mild pulmonary venous congestion. No focal consolidation. PLEURA: Small pleural effusions. No pneumothorax apparent. CARDIOVASCULAR: There is mild cardiomegaly. OSSEOUS STRUCTURES: No significant abnormalities. VISUALIZED UPPER ABDOMEN: Normal. OTHER FINDINGS: None. IMPRESSION: Mild pulmonary venous congestion and small pleural effusions. Stable position of line and tubes.
[2016-07-26] MEDS: Midazolam 2 MG/2 ML VIAL IVP PRN (11:20)
--- NOTE | 2016-07-26 15:57 | CP.PCM.PN ---
Subjective - Date & Time of Evaluation Date of Evaluation: 07/26/16 Time of Evaluation: 15:56 - Subjective Subjective: pt seen and examined, follow up consult is dictated #[id number] seen in TPE next TPE on thursday and thursday Objective - Vital Signs/Intake and Output Vital Signs (last 24 hours): Temp Pulse Resp BP Pulse Ox 98.7 F 75 18 150/81 93 L 07/26/16 12:00 07/26/16 15:49 07/26/16 15:49 07/26/16 15:49 07/26/16 15:49 Intake and Output: 07/26/16 07/26/16 06:59 18:59 Intake Total 840 710 Output Total 575 455 Balance 265 255 - Medications Medications: Current Medications Albuterol/Ipratropium (Duoneb 3 Mg/0.5 Mg (3 Ml) Ud) 3 ml INH RQ6 [facility] Last Admin: 07/26/16 13:31 Dose: 3 ml Carvedilol (Coreg) 3.125 mg PO BID [facility] Last Admin: 07/26/16 09:26 Dose: 3.125 mg Dexamethasone (Decadron Inj) 4 mg IV Q8 [facility] Last Admin: 07/26/16 13:37 Dose: 4 mg Furosemide (Lasix) 40 mg IVP Q12 [facility] Heparin Sodium (Porcine) (Heparin) 5,000 units SC Q8 [facility] Last Admin: 07/26/16 13:38 Dose: 5,000 units Piperacillin Sod/Tazobactam Sod (Zosyn 2.25 Gm Iv Premix) 2.25 gm in 50 mls @ 100 mls/hr IVPB Q6H [facility] Last Admin: 07/26/16 13:38 Dose: 100 mls/hr Metronidazole (Flagyl) 500 mg in 100 mls @ 100 mls/hr IVPB Q8 [facility] Last Admin: 07/26/16 13:37 Dose: 100 mls/hr Midazolam HCl (Versed Inj) 2 mg IVP Q4H PRN PRN Reason: Agitation Last Admin: 07/26/16 11:20 Dose: 2 mg Nifedipine (Procardia) 10 mg PO BID [facility] Last Admin: 07/26/16 09:26 Dose: 10 mg Pantoprazole Sodium (Protonix Inj) 40 mg IVP DAILY [facility] Last Admin: 07/26/16 09:25 Dose: 40 mg - Labs Labs: 07/26/16 06:52 07/26/16 06:52 PT 11.3 SECONDS (9.7-12.2) 07/26/16 06:52 INR 1.0 07/26/16 06:52 APTT 28 SECONDS (21-34) 07/26/16 06:52
--- NOTE | 2016-07-26 16:23 | CP.CCUPN ---
CCU Subjective - Physician Review Events Since Last Encounter (Free Text): 07/26/16 16:20 alert and following commands. Tolerating PS trials. CCU Objective - Vital Signs / Intake & Output Vital Signs (Last 4 hours): Vital Signs Pulse Resp BP Pulse Ox 07/26/16 15:49 75 18 150/81 93 L 07/26/16 15:13 74 14 136/70 93 L 07/26/16 15:00 74 14 93 L 07/26/16 14:56 76 13 132/69 94 L 07/26/16 14:13 78 14 128/65 94 L 07/26/16 14:00 79 13 94 L 07/26/16 13:13 74 14 153/74 H 94 L Intake and Output (Last 8hrs): Intake & Output 07/26/16 07/26/16 07/26/16 06:59 14:59 22:59 Intake Total 580 570 140 Output Total 370 415 40 Balance 210 155 100 Weight 151 lb 10.88 oz Intake: Intake, IV Amount 200 50 100 Right Distal Port 200 0 0 Internal Jugular Right Medial Port 50 100 Internal Jugular Right Proximal Port 0 0 Internal Jugular Oral 200 Tube Feeding 320 320 40 Other 60 Output: Urine 370 415 40 Urethral (Sharp) 315 40 Urine, Voided 370 100 Stool 0 Other: # Bowel Movements 0 0 - Physical Exam Head: Positive for: Atraumatic, Normocephalic Mouth: Positive for: Moist Mucous Membranes Neck: Positive for: Normal Range of Motion Respiratory/Chest: Positive for: Good Air Exchange, Rhonchi. Negative for: Accessory Muscle Use Cardiovascular: Positive for: Regular Rate and Rhythm, Normal S1, S2. Negative for: Murmurs Abdomen: Positive for: Normal Bowel Sounds. Negative for: Tenderness, Distention Upper Extremity: Positive for: Normal Inspection. Negative for: Cyanosis, Edema Lower Extremity: Positive for: Normal Inspection. Negative for: Edema Skin: Positive for: Warm, Dry, Rashes (resolving) - Medications Active Medications: Active Medications Generic Name Dose Route Start Last Admin Trade Name Freq PRN Reason Stop Dose Admin Albuterol/Ipratropium 3 ml 07/23/16 08:00 07/26/16 13:31 Duoneb 3 Mg/0.5 Mg (3 Ml) Ud INH 3 ml RQ6 [facility] Administration Carvedilol 3.125 mg 07/24/16 18:00 07/26/16 09:26 Coreg PO 3.125 mg BID [facility] Administration Dexamethasone 4 mg 07/23/16 14:00 07/26/16 13:37 Decadron Inj IV 4 mg Q8 [facility] Administration Furosemide 40 mg 07/26/16 10:55 Lasix IVP Q12 [facility] Heparin Sodium (Porcine) 5,000 units 07/24/16 14:00 07/26/16 13:38 Heparin SC 5,000 units Q8 [facility] Administration Piperacillin Sod/Tazobactam Sod 2.25 gm in 50 mls @ 100 mls/hr 07/23/16 13:00 07/26/16 13:38 Zosyn 2.25 Gm Iv Premix IVPB 100 mls/hr Q6H [facility] Administration Metronidazole 500 mg in 100 mls @ 100 mls/hr 07/24/16 22:00 07/26/16 13:37 Flagyl IVPB 100 mls/hr Q8 [facility] Administration Midazolam HCl 2 mg 07/26/16 10:58 07/26/16 11:20 Versed Inj IVP 2 mg Q4H PRN Administration Agitation Nifedipine 10 mg 07/25/16 12:00 07/26/16 09:26 Procardia PO 10 mg BID [facility] Administration Pantoprazole Sodium 40 mg 07/25/16 10:00 07/26/16 09:25 Protonix Inj IVP 40 mg DAILY [facility] Administration - Patient Studies Lab Studies: Lab Studies 07/26/16 07/26/16 07/26/16 Range/Units 06:52 06:52 06:52 WBC 12.1 H (4.8-10.8) K/uL RBC 3.29 L (3.80-5.20) Mil/uL Hgb 10.6 L (11.0-16.0) g/dL Hct 32.2 L (34.0-47.0) % MCV 97.9 D (81.0-99.0) fL MCH 32.2 H (27.0-31.0) pg MCHC 32.9 L (33.0-37.0) g/dL RDW 17.6 H (11.5-14.5) % Plt Count 88 L D (130-400) K/uL MPV 11.2 (7.2-11.7) fL Haptoglobin (43-212) mg/dL PT 11.3 (9.7-12.2) SECONDS INR 1.0 APTT 28 (21-34) SECONDS Fibrinogen 225 D (200-400) mg/dL Fibrin Degrad Products Positive H (NEGATIVE) Fibrin Degrad Prod, Qt >40 H (<10) ug/mL Puncture Site pCO2 (35-45) mm/Hg pO2 (80-100) mm/Hg HCO3 (21-28) mmol/L ABG pH (7.35-7.45) ABG Total CO2 (22-28) mmol/L ABG O2 Saturation (95-98) % ABG Base Excess (-2.0-3.0) mmol/L ABG Hemoglobin (11.7-17.4) g/dL ABG Carboxyhemoglobin (0.5-1.5) % POC ABG HHb (Measured) (0.0-5.0) % ABG Methemoglobin (0.0-3.0) % Braxotn Test A-a O2 Difference mm/Hg Respiratory Index Hgb O2 Saturation (95.0-98.0) % FiO2 % PEEP Pressure Support Sodium 137 (132-148) mmol/L Potassium 3.9 (3.6-5.2) mmol/L Chloride 94 L (98-107) mmol/L Carbon Dioxide 29 (22-30) mmol/L Anion Gap 17 (10-20) BUN 71 H (7-17) mg/dL Creatinine 4.3 H (0.7-1.2) MG/DL Est GFR ( Amer) 12 Est GFR (Non-Af Amer) 10 Random Glucose 166 H (65-105) mg/dL Calcium 8.0 L (8.6-10.4) mg/dl Phosphorus 6.1 H (2.5-4.5) mg/dL Magnesium 2.3 (1.6-2.3) mg/dL Total Bilirubin 0.9 (0.2-1.3) mg/dL AST 31 (14-36) U/L ALT 44 (9-52) U/L Alkaline Phosphatase 79 (38-126) U/L Lactate Dehydrogenase 714 H (313-618) U/L Total Protein 6.0 L (6.3-8.3) g/dL Albumin 3.1 L (3.5-5.0) g/dL Globulin 2.9 (2.2-3.9) gm/dL Albumin/Globulin Ratio 1.1 (1.0-2.1) 07/26/16 07/24/16 Range/Units 02:39 16:09 WBC (4.8-10.8) K/uL RBC (3.80-5.20) Mil/uL Hgb (11.0-16.0) g/dL Hct (34.0-47.0) % MCV (81.0-99.0) fL MCH (27.0-31.0) pg MCHC (33.0-37.0) g/dL RDW (11.5-14.5) % Plt Count (130-400) K/uL MPV (7.2-11.7) fL Haptoglobin 40 L (43-212) mg/dL PT (9.7-12.2) SECONDS INR APTT (21-34) SECONDS Fibrinogen (200-400) mg/dL Fibrin Degrad Products (NEGATIVE) Fibrin Degrad Prod, Qt (<10) ug/mL Puncture Site L brach pCO2 46 H (35-45) mm/Hg pO2 95 (80-100) mm/Hg HCO3 31.1 H (21-28) mmol/L ABG pH 7.46 H (7.35-7.45) ABG Total CO2 34.1 H (22-28) mmol/L ABG O2 Saturation 99.2 H (95-98) % ABG Base Excess 7.9 H (-2.0-3.0) mmol/L ABG Hemoglobin 10.8 L (11.7-17.4) g/dL ABG Carboxyhemoglobin 2.0 H (0.5-1.5) % POC ABG HHb (Measured) 0.8 (0.0-5.0) % ABG Methemoglobin 1.5 (0.0-3.0) % Braxton Test Na A-a O2 Difference 275.0 mm/Hg Respiratory Index 2.9 Hgb O2 Saturation 95.6 (95.0-98.0) % FiO2 60.0 % PEEP 5 Pressure Support 10 Sodium (132-148) mmol/L Potassium (3.6-5.2) mmol/L Chloride (98-107) mmol/L Carbon Dioxide (22-30) mmol/L Anion Gap (10-20) BUN (7-17) mg/dL Creatinine (0.7-1.2) MG/DL Est GFR ( Amer) Est GFR (Non-Af Amer) Random Glucose (65-105) mg/dL Calcium (8.6-10.4) mg/dl Phosphorus (2.5-4.5) mg/dL Magnesium (1.6-2.3) mg/dL Total Bilirubin (0.2-1.3) mg/dL AST (14-36) U/L ALT (9-52) U/L Alkaline Phosphatase (38-126) U/L Lactate Dehydrogenase (313-618) U/L Total Protein (6.3-8.3) g/dL Albumin (3.5-5.0) g/dL Globulin (2.2-3.9) gm/dL Albumin/Globulin Ratio (1.0-2.1) Laboratory Results - last 24 hr 07/24/16 07/26/16 07/26/16 16:09 02:39 06:52 WBC RBC Hgb Hct MCV MCH MCHC RDW Plt Count MPV Haptoglobin 40 L PT INR APTT Fibrinogen Fibrin Degrad Products Fibrin Degrad Prod, Qt Puncture Site L brach pCO2 46 H pO2 95 HCO3 31.1 H ABG pH 7.46 H ABG Total CO2 34.1 H ABG O2 Saturation 99.2 H ABG Base Excess 7.9 H ABG Hemoglobin 10.8 L ABG Carboxyhemoglobin 2.0 H POC ABG HHb (Measured) 0.8 ABG Methemoglobin 1.5 Braxton Test Na A-a O2 Difference 275.0 Respiratory Index 2.9 Hgb O2 Saturation 95.6 FiO2 60.0 PEEP 5 Pressure Support 10 Sodium 137 Potassium 3.9 Chloride 94 L Carbon Dioxide 29 Anion Gap 17 BUN 71 H Creatinine 4.3 H Est GFR ( Amer) 12 Est GFR (Non-Af Amer) 10 Random Glucose 166 H Calcium 8.0 L Phosphorus 6.1 H Magnesium 2.3 Total Bilirubin 0.9 AST 31 ALT 44 Alkaline Phosphatase 79 Lactate Dehydrogenase 714 H Total Protein 6.0 L Albumin 3.1 L Globulin 2.9 Albumin/Globulin Ratio 1.1 07/26/16 07/26/16 06:52 06:52 WBC 12.1 H RBC 3.29 L Hgb 10.6 L Hct 32.2 L MCV 97.9 D MCH 32.2 H MCHC 32.9 L RDW 17.6 H Plt Count 88 L D MPV 11.2 Haptoglobin PT 11.3 INR 1.0 APTT 28 Fibrinogen 225 D Fibrin Degrad Products Positive H Fibrin Degrad Prod, Qt >40 H Puncture Site pCO2 pO2 HCO3 ABG pH ABG Total CO2 ABG O2 Saturation ABG Base Excess ABG Hemoglobin ABG Carboxyhemoglobin POC ABG HHb (Measured) ABG Methemoglobin Braxton Test A-a O2 Difference Respiratory Index Hgb O2 Saturation FiO2 PEEP Pressure Support Sodium Potassium Chloride Carbon Dioxide Anion Gap BUN Creatinine Est GFR ( Amer) Est GFR (Non-Af Amer) Random Glucose Calcium Phosphorus Magnesium Total Bilirubin AST ALT Alkaline Phosphatase Lactate Dehydrogenase Total Protein Albumin Globulin Albumin/Globulin Ratio Review of Systems - Review of Systems Systems not reviewed;Unavailable: Intubated Critical Care Progress Note - Ventilator Checklist Head of Bed 30 Degrees: Yes Daily Sedation Vacation: Yes Daily Assessment of Readiness to Wean: Yes Daily Spontaneous Breathing Trial: Yes PUD Prophalyxis: Yes DVT Prophylaxis: Yes Assessment/Plan (1) TTP (thrombotic thrombocytopenic purpura) Assessment and plan: 80-year-old female with past medical history of systolic CHF (EF-10%). Presented with acute renal failure, acute respiratory failure, spherocytosis. Thrombocytopenia - current suspicion of TTP. Neuro: Alert and following commands. Holding sedation. Pulm: Acute respiratory failure, tolerating pressure support trials, hopeful extubation today. CV: Hemodynamically stable. Hypertension controlled with nifedipine by mouth twice a day, continue Coreg by mouth twice a day. 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 Patient getting plasmapheresis (first time 07/24), and again today. Decadron 4 mg IV every 8h. Follow-up serologies, ADAMTS. Rheum: Scleroderma, patient was on methotrexate at home. Renal: Nonoliguric acute kidney injury, creatinine rising, urine output still good and no hyperkalemia, but worsening hyperphosphatemia. Renal following. Endo: No acute issues GI: Nothing by mouth, Novasource Renal at 40 ID: Uncertain source of sepsis as an etiology of TTP, continue Zosyn. ID consulted. DVT proph - heparin subcutaneous GI proph - Protonix sharp for strict I/O's during acute illness Code status - full code Crtical Care Time spent 35 minutes Multi-disciplinary rounds were performed with house staff, nursing, speech therapy, respiratory therapy, pharmacy and nutrition with integrated input from the primary team/attending and other consulting services. The documented time is cumulative and includes review of patient data/exams/labs/chart review and examination of the patient on rounds and throughout the day; time is exclusive of any procedures or teaching time. Current Visit: Yes Status: Acute
[2016-07-27] MEDS: Piperacill/Tazo 2.25gm in Dex 2.25 GM/50 ML BAG IVPB SCH ×4 (00:20→23:17)
[2016-07-27] MEDS: Midazolam 2 MG/2 ML VIAL IVP PRN ×3 (00:21→21:01)
[2016-07-27 04:58] LABS: BASO % 0.2 % (0.0-2.0); EOS % 0.1 % (0.0-4.0); HEMOGLOBIN 10.8 g/dL (11.0-16.0); LYMPH # 0.4 K/uL (1.0-4.3); LYMPH % 3.7 % (20.0-40.0); MEAN CELL VOLUME 97.6 fL (81.0-99.0); MEAN CORPUSCULAR HEMOGLOBIN 32.2 pg (27.0-31.0); MEAN PLATELET VOLUME 9.7 fL (7.2-11.7); MONO % 8.7 % (0.0-10.0); NEUT # 9.5 K/uL (1.8-7.0); NEUT % 87.3 % (50.0-75.0); NRBC % 0.4 % (0.0-2.0); PLATELET COUNT 93 K/uL (130-400); RBC 3.37 Mil/uL (3.80-5.20); RED CELL DISTRIBUTION WIDTH 17.1 % (11.5-14.5); WHITE BLOOD COUNT 10.9 K/uL (4.8-10.8)
[2016-07-27] MEDS: metroNIDAZOLE IV 500 mg/100 ml 500 MG/100 ML BAG IVPB SCH ×3 (05:00→23:17)
[2016-07-27 05:09] LABS: CALCIUM 7.6 mg/dl (8.6-10.4)
[2016-07-27] MEDS: Albuterol-Ipratrop 3 mg / 0.5 (3 ml) UD INH SCH ×4 (05:16→19:59)
[2016-07-27 05:38] LABS: INR 1.1; PARTIAL THROMBOPLASTIN TIME 29 SECONDS (21-34); PROTHROMBIN TIME 12.7 SECONDS (9.7-12.2)
[2016-07-27 05:46] LABS: FDP INTERPRETATION POSITIVE (NEGATIVE); FDP QUANTITY >10<40 ug/mL (<10)
[2016-07-27 05:56] LABS: LYMPHOCYTE 7 % (20-40); MONOCYTE 5 % (0-10); NEUTROPHIL 88 % (50-75); PLATELET ESTIMATE DECREASED (NORMAL); TOTAL CELLS COUNTED 100
[2016-07-27 06:31] LABS: ABG ALLEN TEST POS; ARTERIAL BLOOD GAS HCO3 35.5 mmol/L (21-28); ARTERIAL BLOOD GAS HEMOGLOBIN 11.8 g/dL (11.7-17.4); ARTERIAL BLOOD GAS O2 SAT 94.1 % (95-98); ARTERIAL BLOOD GAS PCO2 32 mm/Hg (35-45); ARTERIAL BLOOD GAS PH 7.65 (7.35-7.45); ARTERIAL BLOOD GAS PO2 52 mm/Hg (80-100); ARTERIAL BLOOD GAS TCO2 36.2 mmol/L (22-28)
--- NOTE | 2016-07-27 06:50 | CP.PCM.PN ---
Subjective - Date & Time of Evaluation Date of Evaluation: 07/27/16 Time of Evaluation: 06:50 Objective - Vital Signs/Intake and Output Vital Signs (last 24 hours): Temp Pulse Resp BP Pulse Ox 99.1 F 79 15 183/85 H 92 L 07/27/16 00:00 07/27/16 05:06 07/27/16 05:06 07/27/16 05:06 07/27/16 05:06 Intake and Output: 07/26/16 07/27/16 18:59 06:59 Intake Total 930 410 Output Total 650 750 Balance 280 -340 - Medications Medications: Current Medications Acetaminophen (Tylenol 650 Mg Supp) 650 mg RI ONCE ONE Stop: 07/27/16 18:01 Albuterol/Ipratropium (Duoneb 3 Mg/0.5 Mg (3 Ml) Ud) 3 ml INH RQ6 [facility] Last Admin: 07/27/16 05:16 Dose: 3 ml Carvedilol (Coreg) 3.125 mg PO BID [facility] Last Admin: 07/26/16 18:43 Dose: 3.125 mg Dexamethasone (Decadron Inj) 4 mg IV Q8 [facility] Last Admin: 07/26/16 22:00 Dose: 4 mg Diphenhydramine HCl (Benadryl) 50 mg IVP ONCE ONE Stop: 07/27/16 18:01 Furosemide (Lasix) 40 mg IVP Q12 [facility] Last Admin: 07/26/16 22:01 Dose: 40 mg Heparin Sodium (Porcine) (Heparin) 5,000 units SC Q8 [facility] Last Admin: 07/27/16 05:44 Dose: 5,000 units Piperacillin Sod/Tazobactam Sod (Zosyn 2.25 Gm Iv Premix) 2.25 gm in 50 mls @ 100 mls/hr IVPB Q6H [facility] Last Admin: 07/27/16 00:20 Dose: 100 mls/hr Metronidazole (Flagyl) 500 mg in 100 mls @ 100 mls/hr IVPB Q8 [facility] Last Admin: 07/27/16 05:00 Dose: 100 mls/hr Calcium Gluconate 9.3 meq/ (Sodium Chloride) 250 mls @ 125 mls/hr IV ONCE ONE Stop: 07/27/16 19:59 Methylprednisolone (Solu-Medrol) 100 mg IVP ONCE ONE Stop: 07/27/16 18:01 Midazolam HCl (Versed Inj) 2 mg IVP Q4H PRN PRN Reason: Agitation Last Admin: 07/27/16 04:30 Dose: 2 mg Nifedipine (Procardia) 10 mg PO BID [facility] Last Admin: 07/26/16 18:43 Dose: 10 mg Pantoprazole Sodium (Protonix Inj) 40 mg IVP DAILY [facility] Last Admin: 07/26/16 09:25 Dose: 40 mg - Labs Labs: 07/27/16 04:54 07/27/16 04:54 PT 12.7 SECONDS (9.7-12.2) H 07/27/16 04:54 INR 1.1 07/27/16 04:54 APTT 29 SECONDS (21-34) 07/27/16 04:54
[2016-07-27] MEDS: Dexamethasone 4 mg/1 ml IV SCH ×3 (07:00→23:18)
[2016-07-27 07:15] LABS: FIBRINOGEN 193 mg/dL (200-400)
--- NOTE | 2016-07-27 09:20 | RAD ---
HISTORY: Intubated COMPARISON: 07/26/2016. FINDINGS: The endotracheal tube terminates 1.5 cm proximal to the natalia. Right IJV line terminates at the cavoatrial junction. The nasogastric tube terminates in the stomach. LUNGS: There is mild pulmonary venous congestion improved since the prior examination. PLEURA: There are layering pleural effusions. No significant pleural effusion identified, no pneumothorax apparent. CARDIOVASCULAR: The heart is enlarged with prominent central vasculature. OSSEOUS STRUCTURES: No significant abnormalities. VISUALIZED UPPER ABDOMEN: Normal. OTHER FINDINGS: None. IMPRESSION: Findings are most compatible with mild congestive heart failure with interval improved pulmonary venous congestion
--- NOTE | 2016-07-27 14:41 | CP.PCM.PN ---
Subjective - Date & Time of Evaluation Date of Evaluation: 07/27/16 Time of Evaluation: 08:00 - Subjective Subjective: REMAINS INTUBATED AROUSABLE STOOL CULTURES NOT SENT IV RX IN PROGRESS Objective - Vital Signs/Intake and Output Vital Signs (last 24 hours): Temp Pulse Resp BP Pulse Ox 97.3 F L 80 15 156/80 H 96 07/27/16 12:00 07/27/16 12:16 07/27/16 12:16 07/27/16 12:16 07/27/16 12:16 Intake and Output: 07/27/16 07/27/16 06:59 18:59 Intake Total 640 240 Output Total 1025 600 Balance -385 -360 - Medications Medications: Current Medications Acetaminophen (Tylenol 650 Mg Supp) 650 mg UT ONCE ONE Stop: 07/27/16 18:01 Albuterol/Ipratropium (Duoneb 3 Mg/0.5 Mg (3 Ml) Ud) 3 ml INH RQ6 JESSI Last Admin: 07/27/16 14:10 Dose: 3 ml Carvedilol (Coreg) 3.125 mg PO BID [facility] Last Admin: 07/27/16 09:43 Dose: 3.125 mg Dexamethasone (Decadron Inj) 4 mg IV Q8 [facility] Last Admin: 07/27/16 13:26 Dose: 4 mg Diphenhydramine HCl (Benadryl) 50 mg IVP ONCE ONE Stop: 07/27/16 18:01 Furosemide (Lasix) 40 mg IVP Q12 [facility] Last Admin: 07/27/16 09:43 Dose: 40 mg Piperacillin Sod/Tazobactam Sod (Zosyn 2.25 Gm Iv Premix) 2.25 gm in 50 mls @ 100 mls/hr IVPB Q6H [facility] Last Admin: 07/27/16 13:25 Dose: 100 mls/hr Metronidazole (Flagyl) 500 mg in 100 mls @ 100 mls/hr IVPB Q8 [facility] Last Admin: 07/27/16 13:45 Dose: 100 mls/hr Calcium Gluconate 9.3 meq/ (Sodium Chloride) 250 mls @ 125 mls/hr IV ONCE ONE Stop: 07/27/16 19:59 Methylprednisolone (Solu-Medrol) 100 mg IVP ONCE ONE Stop: 07/27/16 18:01 Midazolam HCl (Versed Inj) 2 mg IVP Q4H PRN PRN Reason: Agitation Last Admin: 07/27/16 04:30 Dose: 2 mg Nifedipine (Procardia) 10 mg PO BID [facility] Last Admin: 07/27/16 09:43 Dose: 10 mg Pantoprazole Sodium (Protonix Inj) 40 mg IVP DAILY [facility] Last Admin: 07/27/16 09:43 Dose: 40 mg - Labs Labs: 07/27/16 04:54 07/27/16 04:54 PT 12.7 SECONDS (9.7-12.2) H 07/27/16 04:54 INR 1.1 07/27/16 04:54 APTT 29 SECONDS (21-34) 07/27/16 04:54 - Constitutional Appears: Non-toxic, Cachectic, Chronically Ill - Head Exam Head Exam: NORMOCEPHALIC - Eye Exam Eye Exam: absent: Scleral icterus - ENT Exam ENT Exam: Mucous Membranes Dry - Neck Exam Neck Exam: absent: Lymphadenopathy, Thyromegaly - Respiratory Exam Respiratory Exam: Decreased Breath Sounds, Rhonchi - Cardiovascular Exam Cardiovascular Exam: REGULAR RHYTHM - GI/Abdominal Exam GI & Abdominal Exam: Distended, Soft. 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
[2016-07-27] MEDS ORDERED: MethylPREDNISolone 40 mg Vial IVP ONE (16:00)
[2016-07-27] MEDS ORDERED: DiphenhydrAMINE 50 mg/ml Inj IVP ONE (16:00)
--- NOTE | 2016-07-27 17:59 | CP.CCUPN ---
CCU Subjective - Physician Review Events Since Last Encounter (Free Text): 07/27/16 17:57 Patient remains on ventilator. Poorly responding. Received a plasmapheresis. Unable to do the CPAP trial, hypotension identified. Also hypoxic FiO2 increased today. CCU Objective - Vital Signs / Intake & Output Vital Signs (Last 4 hours): Vital Signs Temp Pulse Resp BP Pulse Ox 07/27/16 17:00 77 14 96 07/27/16 16:17 81 13 133/99 H 98 07/27/16 16:00 99.1 F 78 15 96 07/27/16 15:16 80 13 161/82 H 96 07/27/16 15:00 81 14 96 07/27/16 14:16 83 13 160/79 H 96 07/27/16 14:00 85 18 96 Intake and Output (Last 8hrs): Intake & Output 07/27/16 07/27/16 07/27/16 06:59 14:59 22:59 Intake Total 460 320 120 Output Total 800 760 300 Balance -340 -440 -180 Intake: Intake, IV Amount 200 Right Medial Port 200 Internal Jugular Tube Feeding 260 320 120 Output: Urine 800 760 300 Urethral (Cole) 800 760 300 Stool 0 0 Other: # Bowel Movements 0 0 - Physical Exam Narrative Physical Exam (Free Text): 07/27/16 17:58 On ventilator, poor prognosis Head: Positive for: Atraumatic, Normocephalic Mouth: Positive for: Moist Mucous Membranes Neck: Positive for: Normal Range of Motion Respiratory/Chest: Positive for: Good Air Exchange, Rhonchi. Negative for: Accessory Muscle Use Cardiovascular: Positive for: Regular Rate and Rhythm, Normal S1, S2. Negative for: Murmurs Abdomen: Positive for: Normal Bowel Sounds. Negative for: Tenderness, Distention Upper Extremity: Positive for: Normal Inspection. Negative for: Cyanosis, Edema Lower Extremity: Positive for: Normal Inspection. Negative for: Edema Skin: Positive for: Warm, Dry, Rashes (resolving) - Medications Active Medications: Active Medications Generic Name Dose Route Start Last Admin Trade Name Freq PRN Reason Stop Dose Admin Albuterol/Ipratropium 3 ml 07/23/16 08:00 07/27/16 14:10 Duoneb 3 Mg/0.5 Mg (3 Ml) Ud INH 3 ml RQ6 JESSI Administration Carvedilol 3.125 mg 07/24/16 18:00 07/27/16 09:43 Coreg PO 3.125 mg BID JESSI Administration Dexamethasone 4 mg 07/23/16 14:00 07/27/16 13:26 Decadron Inj IV 4 mg Q8 JESSI Administration Furosemide 40 mg 07/26/16 10:55 07/27/16 09:43 Lasix IVP 40 mg Q12 JESSI Administration Piperacillin Sod/Tazobactam Sod 2.25 gm in 50 mls @ 100 mls/hr 07/23/16 13:00 07/27/16 13:25 Zosyn 2.25 Gm Iv Premix IVPB 100 mls/hr Q6H JESSI Administration Metronidazole 500 mg in 100 mls @ 100 mls/hr 07/24/16 22:00 07/27/16 13:45 Flagyl IVPB 100 mls/hr Q8 JESSI Administration Calcium Gluconate 9.3 meq/ 250 mls @ 125 mls/hr 07/27/16 18:00 Sodium Chloride IV 07/27/16 19:59 ONCE ONE Midazolam HCl 2 mg 07/26/16 10:58 07/27/16 04:30 Versed Inj IVP 2 mg Q4H PRN Administration Agitation Nifedipine 10 mg 07/25/16 12:00 07/27/16 09:43 Procardia PO 10 mg BID JESSI Administration Pantoprazole Sodium 40 mg 07/25/16 10:00 07/27/16 09:43 Protonix Inj IVP 40 mg DAILY JESSI Administration - Patient Studies Lab Studies: Lab Studies 07/27/16 07/27/16 07/27/16 Range/Units 05:55 04:54 04:54 WBC (4.8-10.8) K/uL RBC (3.80-5.20) Mil/uL Hgb (11.0-16.0) g/dL Hct (34.0-47.0) % MCV (81.0-99.0) fL MCH (27.0-31.0) pg MCHC (33.0-37.0) g/dL RDW (11.5-14.5) % Plt Count (130-400) K/uL MPV (7.2-11.7) fL Neut % (Auto) (50.0-75.0) % Lymph % (Auto) (20.0-40.0) % [place] % (Auto) (0.0-10.0) % Eos % (Auto) (0.0-4.0) % Baso % (Auto) (0.0-2.0) % Neut # (1.8-7.0) K/uL Lymph # (1.0-4.3) K/uL [place] # (0.0-0.8) K/uL Eos # (0.0-0.7) K/uL Baso # (0.0-0.2) K/uL Neutrophils % (Manual) (50-75) % Lymphocytes % (Manual) (20-40) % Monocytes % (Manual) (0-10) % Platelet Estimate (NORMAL) PT 12.7 H (9.7-12.2) SECONDS INR 1.1 APTT 29 (21-34) SECONDS Fibrinogen 193 L (200-400) mg/dL Fibrin Degrad Products Positive H (NEGATIVE) Fibrin Degrad Prod, Qt >10<40 H (<10) ug/mL Puncture Site Rradial pCO2 32 L (35-45) mm/Hg pO2 52 L (80-100) mm/Hg HCO3 35.5 H (21-28) mmol/L ABG pH 7.65 H* (7.35-7.45) ABG Total CO2 36.2 H (22-28) mmol/L ABG O2 Saturation 94.1 L (95-98) % ABG Base Excess 13.8 H (-2.0-3.0) mmol/L ABG Hemoglobin 11.8 (11.7-17.4) g/dL ABG Carboxyhemoglobin 2.0 H (0.5-1.5) % POC ABG HHb (Measured) 5.7 H (0.0-5.0) % ABG Methemoglobin 1.5 (0.0-3.0) % Braxton Test Pos A-a O2 Difference 265.0 mm/Hg Respiratory Index 5.1 Hgb O2 Saturation 90.9 L (95.0-98.0) % Mechanical Rate 14 FiO2 50.0 % Tidal Volume 450 PEEP 5 Crit Value Called To Crit Value Called By Huong ochoa rcp Crit Value Read Back Y Blood Gas Notified Time 635 Sodium 141 (132-148) mmol/L Potassium 3.9 (3.6-5.2) mmol/L Chloride 94 L (98-107) mmol/L Carbon Dioxide 35 H (22-30) mmol/L Anion Gap 16 (10-20) BUN 79 H (7-17) mg/dL Creatinine 4.4 H (0.7-1.2) MG/DL Est GFR ( Amer) 12 Est GFR (Non-Af Amer) 10 Random Glucose 154 H (65-105) mg/dL Calcium 7.6 L (8.6-10.4) mg/dl Lactate Dehydrogenase 773 H (313-618) U/L 07/27/16 Range/Units 04:54 WBC 10.9 H (4.8-10.8) K/uL RBC 3.37 L (3.80-5.20) Mil/uL Hgb 10.8 L (11.0-16.0) g/dL Hct 32.9 L (34.0-47.0) % MCV 97.6 (81.0-99.0) fL MCH 32.2 H (27.0-31.0) pg MCHC 33.0 (33.0-37.0) g/dL RDW 17.1 H (11.5-14.5) % Plt Count 93 L (130-400) K/uL MPV 9.7 (7.2-11.7) fL Neut % (Auto) 87.3 H (50.0-75.0) % Lymph % (Auto) 3.7 L (20.0-40.0) % [place] % (Auto) 8.7 (0.0-10.0) % Eos % (Auto) 0.1 (0.0-4.0) % Baso % (Auto) 0.2 (0.0-2.0) % Neut # 9.5 H (1.8-7.0) K/uL Lymph # 0.4 L (1.0-4.3) K/uL [place] # 1.0 H (0.0-0.8) K/uL Eos # 0.0 (0.0-0.7) K/uL Baso # 0.0 (0.0-0.2) K/uL Neutrophils % (Manual) 88 H (50-75) % Lymphocytes % (Manual) 7 L (20-40) % Monocytes % (Manual) 5 (0-10) % Platelet Estimate Decreased L (NORMAL) PT (9.7-12.2) SECONDS INR APTT (21-34) SECONDS Fibrinogen (200-400) mg/dL Fibrin Degrad Products (NEGATIVE) Fibrin Degrad Prod, Qt (<10) ug/mL Puncture Site pCO2 (35-45) mm/Hg pO2 (80-100) mm/Hg HCO3 (21-28) mmol/L ABG pH (7.35-7.45) ABG Total CO2 (22-28) mmol/L ABG O2 Saturation (95-98) % ABG Base Excess (-2.0-3.0) mmol/L ABG Hemoglobin (11.7-17.4) g/dL ABG Carboxyhemoglobin (0.5-1.5) % POC ABG HHb (Measured) (0.0-5.0) % ABG Methemoglobin (0.0-3.0) % Braxton Test A-a O2 Difference mm/Hg Respiratory Index Hgb O2 Saturation (95.0-98.0) % Mechanical Rate FiO2 % Tidal Volume PEEP Crit Value Called To Crit Value Called By Crit Value Read Back Blood Gas Notified Time Sodium (132-148) mmol/L Potassium (3.6-5.2) mmol/L Chloride (98-107) mmol/L Carbon Dioxide (22-30) mmol/L Anion Gap (10-20) BUN (7-17) mg/dL Creatinine (0.7-1.2) MG/DL Est GFR ( Amer) Est GFR (Non-Af Amer) Random Glucose (65-105) mg/dL Calcium (8.6-10.4) mg/dl Lactate Dehydrogenase (313-618) U/L Laboratory Results - last 24 hr 07/27/16 07/27/16 07/27/16 04:54 04:54 04:54 WBC 10.9 H RBC 3.37 L Hgb 10.8 L Hct 32.9 L MCV 97.6 MCH 32.2 H MCHC 33.0 RDW 17.1 H Plt Count 93 L MPV 9.7 Neut % (Auto) 87.3 H Lymph % (Auto) 3.7 L [place] % (Auto) 8.7 Eos % (Auto) 0.1 Baso % (Auto) 0.2 Neut # 9.5 H Lymph # 0.4 L [place] # 1.0 H Eos # 0.0 Baso # 0.0 Neutrophils % (Manual) 88 H Lymphocytes % (Manual) 7 L Monocytes % (Manual) 5 Platelet Estimate Decreased L PT 12.7 H INR 1.1 APTT 29 Fibrinogen 193 L Fibrin Degrad Products Positive H Fibrin Degrad Prod, Qt >10<40 H Puncture Site pCO2 pO2 HCO3 ABG pH ABG Total CO2 ABG O2 Saturation ABG Base Excess ABG Hemoglobin ABG Carboxyhemoglobin POC ABG HHb (Measured) ABG Methemoglobin Braxton Test A-a O2 Difference Respiratory Index Hgb O2 Saturation Mechanical Rate FiO2 Tidal Volume PEEP Crit Value Called To Crit Value Called By Crit Value Read Back Blood Gas Notified Time Sodium 141 Potassium 3.9 Chloride 94 L Carbon Dioxide 35 H Anion Gap 16 BUN 79 H Creatinine 4.4 H Est GFR ( Amer) 12 Est GFR (Non-Af Amer) 10 Random Glucose 154 H Calcium 7.6 L Lactate Dehydrogenase 773 H 07/27/16 05:55 WBC RBC Hgb Hct MCV MCH MCHC RDW Plt Count MPV Neut % (Auto) Lymph % (Auto) [place] % (Auto) Eos % (Auto) Baso % (Auto) Neut # Lymph # [place] # Eos # Baso # Neutrophils % (Manual) Lymphocytes % (Manual) Monocytes % (Manual) Platelet Estimate PT INR APTT Fibrinogen Fibrin Degrad Products Fibrin Degrad Prod, Qt Puncture Site Rradial pCO2 32 L pO2 52 L HCO3 35.5 H ABG pH 7.65 H* ABG Total CO2 36.2 H ABG O2 Saturation 94.1 L ABG Base Excess 13.8 H ABG Hemoglobin 11.8 ABG Carboxyhemoglobin 2.0 H POC ABG HHb (Measured) 5.7 H ABG Methemoglobin 1.5 Braxton Test Pos A-a O2 Difference 265.0 Respiratory Index 5.1 Hgb O2 Saturation 90.9 L Mechanical Rate 14 FiO2 50.0 Tidal Volume 450 PEEP 5 Crit Value Called To Crit Value Called By Huong ochoa rcp Crit Value Read Back Y Blood Gas Notified Time 635 Sodium Potassium Chloride Carbon Dioxide Anion Gap BUN Creatinine Est GFR ( Amer) Est GFR (Non-Af Amer) Random Glucose Calcium Lactate Dehydrogenase Assessment/Plan - Assessment and Plan (Free Text) Assessment: 80-year-old female admitted with multiorgan failure, heart failure, lung failure. On ventilator. Worsening renal insufficiency. Platelet count low. Suspected ITP. Patient is on subcutaneous heparin, but stable at this time. Continue to monitor. FiO2 increased to.
[2016-07-27] MEDS ORDERED: Calcium Gluconate 9.3 MEQ in Sodium Chloride 0.9% 250 ML IV ONE (18:00)
[2016-07-28] MEDS: Piperacill/Tazo 2.25gm in Dex 2.25 GM/50 ML BAG IVPB SCH ×4 (01:35→18:12)
[2016-07-28] MEDS ORDERED: Nitroglycerin 2% Ointment Foilpak UD TOP ONE (03:38)
[2016-07-28] MEDS: metroNIDAZOLE IV 500 mg/100 ml 500 MG/100 ML BAG IVPB SCH ×3 (05:40→21:55)
[2016-07-28] MEDS: Dexamethasone 4 mg/1 ml IV SCH ×3 (05:41→21:54)
[2016-07-28 06:41] LABS: HEMOGLOBIN 10.5 g/dL (11.0-16.0); LYMPH # 0.4 K/uL (1.0-4.3); LYMPH % 5.1 % (20.0-40.0); MEAN CELL VOLUME 98.8 fL (81.0-99.0); MEAN CORPUSCULAR HEMOGLOBIN 32.2 pg (27.0-31.0); MEAN CORPUSCULAR HGB CONC 32.6 g/dL (33.0-37.0); MEAN PLATELET VOLUME 10.2 fL (7.2-11.7); MONO # 0.6 K/uL (0.0-0.8); MONO % 7.6 % (0.0-10.0); NEUT # 6.9 K/uL (1.8-7.0); NEUT % 87.3 % (50.0-75.0); NRBC % 0.3 % (0.0-2.0); PLATELET COUNT 99 K/uL (130-400); RBC 3.25 Mil/uL (3.80-5.20); RED CELL DISTRIBUTION WIDTH 17.9 % (11.5-14.5); WHITE BLOOD COUNT 7.9 K/uL (4.8-10.8)
[2016-07-28 07:25] LABS: ALBUMIN 2.9 g/dL (3.5-5.0)
[2016-07-28 07:28] LABS: ALB/GLOB RATIO 1.1 (1.0-2.1)
[2016-07-28 07:29] LABS: CALCIUM 8.1 mg/dl (8.6-10.4); MAGNESIUM 2.4 mg/dL (1.6-2.3)
--- NOTE | 2016-07-28 08:08 | PN ---
DATE: 07/26/2016 The patient is located in ICU bed 6. REQUESTED BY: Dr. Jason Richter and Dr. Mclaughlin. REASON FOR FOLLOWUP: Acute renal failure, TTP for continuation of the plasmapheresis. HISTORY OF PRESENT ILLNESS: The patient is an 80-year-old elderly [place] female with a past medical history significant for hypertension, arthritis, who was admitted with chief complaints of nausea, vomiting, diarrhea, abdominal pain for 3-4 days prior to the admission and the patient was found to have altered mental status and decreased platelets, increased ADH and increased BUN and creatinine. The patient was initially started with FFP 2 units every 6-8 hours for 36 hours without significant improvement and low platelets. Hot End Operator requested plasmapheresis. The patient is being treated with plasmapheresis at this time. Today is the second treatment. The patient remains intubated and not in acute distress, opens eyes to verbal stimuli. PHYSICAL EXAMINATION: VITAL SIGNS: As follows: Blood pressure 150/81, pulse 78, respiration 18, saturation 98%, and temperature is 98.7. GENERAL: The patient is an 80-year-old elderly female on ventilator, not in distress. HEENT: Pupils normal, reactive to light and accommodation. Conjunctivae pink. Sclerae anicteric, intubated. NECK: Trachea in the midline. LUNGS: Symmetric on both sides. Bilateral breath sounds present. Occasional basal crackles present. CARDIOVASCULAR: [place] in the fifth intercostal space midclavicular line. S1 and S2 audible. No murmur or gallop. ABDOMEN: Normal in appearance, soft, tympanic. No guarding, no rigidity. No hepatosplenomegaly. CENTRAL NERVOUS SYSTEM: On ventilator under sedation. EXTREMITIES: No cyanosis, no clubbing, no edema. CURRENT MEDICATIONS: Include as follows: Coreg 3.125 mg p.o. b.i.d., Decadron 4 mg IV q. 8 hours, DuoNeb inhaler 3 mL q. 6 hours, Flagyl 500 q. 8 hours, subQ heparin 5000 q. 8 hours, Lasix 40 mg IV q. 12 hours and Procardia 10 mg p.o. b.i.d., Protonix 40 mg daily, Versed 2 mg IV q. 4 hours for agitation, Zosyn 2.25 grams IV q. 6 hours. LABORATORY DATA: Include as follows: As of 07/26/2016, WBC 12.1, hemoglobin 10.6, hematocrit is 32.2, platelets 88. PT 11.3, INR is 1.0 and PTT 28 and fibrinogen is 225 and is positive and more than 40. ABG: pH 7.46, pCO2 of 46, pO2 of 95, bicarbonate is 31.1 and saturation 99.2. Vent settings: FiO2 of 60%, PEEP of 5 and pressure support of 10. Sodium 137, potassium 3.9, chloride 94, CO2 of 29, BUN 71, creatinine 4.3, glucose is 166, calcium is 8.0, phosphorus is 6.1. Magnesium 2.3, total bili 0.9, AST 31, ALT 33, alkaline phosphatase is 79, and LDH is 714, total protein 6, albumin is 3.1. Other reports: Chest x-ray as of 07/26/2016: Mild pulmonary venous congestion, small pleural effusion. Stable position of lines and tubes. SUMMARY: The patient is an 80-year-old elderly female from [facility] who went to go for 5 months and came back 2 weeks ago and admitted with nausea, vomiting, diarrhea, abdominal pain, increased BUN and creatinine, altered mental status and low platelets, and being treated for TTP and acute renal failure. 1. Renal failure, [id number] kidney disease versus acute renal failure. 2. Respiratory failure. 3. Cardiomyopathy. 4. TTP. PLAN: Continue plasmapheresis until platelets more than 150 on 2 consecutive days. We will discuss with the flight control specialist again. The patient is receiving plasmapheresis at this time, and we will do it again tomorrow and Thursday. Follow up CBC and We will follow with you. Thank you for allowing me to participate in your patient's care. Cannot rule out thrombotic microangiopathy and acute renal failure. If renal function does not improve, the patient may need hemodialysis. Horacio Graham MD cc: [id number] TT: 07/26/2016 17:04:10 Confirmation # [id number] Dictation # [id number] pati DURON
--- NOTE | 2016-07-28 08:33 | CP.CCUPN ---
CCU Subjective - Physician Review Events Since Last Encounter (Free Text): 07/28/16 08:30 Patient is still on ventilator, mild agitation noted, patient's FiO2 increased to 60%. Some worsening right lung pneumonia versus infiltrate versus effusion noted. Patient renal function is worsening. Generalized edema noted. Tolerating the feeding. Unable to extubate because of the increasing worsening lungs, fluid overload, increasing FiO2. Family at bedside. Spoke to the PMD CCU Objective - Vital Signs / Intake & Output Vital Signs (Last 4 hours): Vital Signs Pulse Resp BP Pulse Ox 07/28/16 06:02 62 14 178/87 H 90 L 07/28/16 06:00 59 L 14 90 L 07/28/16 05:02 59 L 14 201/88 H 93 L 07/28/16 05:00 57 L 14 92 L Intake and Output (Last 8hrs): Intake & Output 07/27/16 07/28/16 07/28/16 22:59 06:59 14:59 Intake Total 320 670 Output Total 720 1000 Balance -400 -330 Weight 153 lb 0.013 oz Intake: Intake, IV Amount 350 Right Distal Port 350 Internal Jugular Tube Feeding 320 320 Output: Urine 720 1000 Urethral (Cole) 720 1000 Stool 0 Other: # Bowel Movements 1 0 - Physical Exam Narrative Physical Exam (Free Text): 07/28/16 08:31 Vital signs reviewed No neck vein distention noted Bilateral wheezing CVS regular heart sound, no murmur noted Abdomen soft, nontender. Edema is generalized Sedated Head: Positive for: Atraumatic, Normocephalic Mouth: Positive for: Moist Mucous Membranes Neck: Positive for: Normal Range of Motion Respiratory/Chest: Positive for: Good Air Exchange, Rhonchi. Negative for: Accessory Muscle Use Cardiovascular: Positive for: Regular Rate and Rhythm, Normal S1, S2. Negative for: Murmurs Abdomen: Positive for: Normal Bowel Sounds. Negative for: Tenderness, Distention Upper Extremity: Positive for: Normal Inspection. Negative for: Cyanosis, Edema Lower Extremity: Positive for: Normal Inspection. Negative for: Edema Skin: Positive for: Warm, Dry, Rashes (resolving) - Medications Active Medications: Active Medications Generic Name Dose Route Start Last Admin Trade Name Freq PRN Reason Stop Dose Admin Albuterol/Ipratropium 3 ml 07/23/16 08:00 07/27/16 19:59 Duoneb 3 Mg/0.5 Mg (3 Ml) Ud INH Not Given RQ6 JESSI Carvedilol 3.125 mg 07/24/16 18:00 07/27/16 18:33 Coreg PO 3.125 mg BID JESSI Administration Dexamethasone 4 mg 07/28/16 10:00 Decadron Inj IV Q12 JESSI Furosemide 60 mg 07/28/16 08:29 Lasix IVP Q12 JESSI Hydralazine HCl 10 mg 07/28/16 08:30 Apresoline PO Q8 JESSI Piperacillin Sod/Tazobactam Sod 2.25 gm in 50 mls @ 100 mls/hr 07/23/16 13:00 07/28/16 07:43 Zosyn 2.25 Gm Iv Premix IVPB 100 mls/hr Q6H JESSI Administration Metronidazole 500 mg in 100 mls @ 100 mls/hr 07/24/16 22:00 07/28/16 05:40 Flagyl IVPB 100 mls/hr Q8 JESSI Administration Midazolam HCl 2 mg 07/26/16 10:58 07/27/16 21:01 Versed Inj IVP 2 mg Q4H PRN Administration Agitation Nifedipine 10 mg 07/25/16 12:00 07/27/16 18:33 Procardia PO 10 mg BID JESSI Administration Pantoprazole Sodium 40 mg 07/25/16 10:00 07/27/16 09:43 Protonix Inj IVP 40 mg DAILY JESSI Administration - Patient Studies Lab Studies: Lab Studies 07/28/16 07/28/16 Range/Units 06:24 06:24 WBC 7.9 (4.8-10.8) K/uL RBC 3.25 L (3.80-5.20) Mil/uL Hgb 10.5 L (11.0-16.0) g/dL Hct 32.1 L (34.0-47.0) % MCV 98.8 (81.0-99.0) fL MCH 32.2 H (27.0-31.0) pg MCHC 32.6 L (33.0-37.0) g/dL RDW 17.9 H (11.5-14.5) % Plt Count 99 L (130-400) K/uL MPV 10.2 (7.2-11.7) fL Neut % (Auto) 87.3 H (50.0-75.0) % Lymph % (Auto) 5.1 L (20.0-40.0) % [place] % (Auto) 7.6 (0.0-10.0) % Eos % (Auto) 0.0 (0.0-4.0) % Baso % (Auto) 0.0 (0.0-2.0) % Neut # 6.9 (1.8-7.0) K/uL Lymph # 0.4 L (1.0-4.3) K/uL [place] # 0.6 (0.0-0.8) K/uL Eos # 0.0 (0.0-0.7) K/uL Baso # 0.0 (0.0-0.2) K/uL Sodium 143 (132-148) mmol/L Potassium 3.6 (3.6-5.2) mmol/L Chloride 92 L (98-107) mmol/L Carbon Dioxide 38 H (22-30) mmol/L Anion Gap 17 (10-20) BUN 90 H (7-17) mg/dL Creatinine 4.8 H (0.7-1.2) MG/DL Est GFR ( Amer) 11 Est GFR (Non-Af Amer) 9 Random Glucose 207 H (65-105) mg/dL Calcium 8.1 L (8.6-10.4) mg/dl Phosphorus 7.4 H (2.5-4.5) mg/dL Magnesium 2.4 H (1.6-2.3) mg/dL Total Bilirubin 0.9 (0.2-1.3) mg/dL AST 33 (14-36) U/L ALT 48 (9-52) U/L Alkaline Phosphatase 112 (38-126) U/L Total Protein 5.7 L (6.3-8.3) g/dL Albumin 2.9 L (3.5-5.0) g/dL Globulin 2.7 (2.2-3.9) gm/dL Albumin/Globulin Ratio 1.1 (1.0-2.1) Laboratory Results - last 24 hr 07/28/16 07/28/16 06:24 06:24 WBC 7.9 RBC 3.25 L Hgb 10.5 L Hct 32.1 L MCV 98.8 MCH 32.2 H MCHC 32.6 L RDW 17.9 H Plt Count 99 L MPV 10.2 Neut % (Auto) 87.3 H Lymph % (Auto) 5.1 L [place] % (Auto) 7.6 Eos % (Auto) 0.0 Baso % (Auto) 0.0 Neut # 6.9 Lymph # 0.4 L [place] # 0.6 Eos # 0.0 Baso # 0.0 Sodium 143 Potassium 3.6 Chloride 92 L Carbon Dioxide 38 H Anion Gap 17 BUN 90 H Creatinine 4.8 H Est GFR ( Amer) 11 Est GFR (Non-Af Amer) 9 Random Glucose 207 H Calcium 8.1 L Phosphorus 7.4 H Magnesium 2.4 H Total Bilirubin 0.9 AST 33 ALT 48 Alkaline Phosphatase 112 Total Protein 5.7 L Albumin 2.9 L Globulin 2.7 Albumin/Globulin Ratio 1.1 Assessment/Plan - Assessment and Plan (Free Text) Assessment: Patient with possible renal insufficiency worsening, questionable suspected TTP , status post a past medical as is. Worsening respiratory failure and worsening pneumonia, fluid overload. Continue the full support ventilation. DVT GI prophylaxis. Overall prognosis is poor. Patient may need possible dialysis. Continue the supportive care
--- NOTE | 2016-07-28 08:37 | CP.PCM.PN ---
Subjective - Date & Time of Evaluation Date of Evaluation: 07/28/16 Time of Evaluation: 08:36 - Subjective Subjective: intubated s/p plasmapharesis family @ bedside Objective - Vital Signs/Intake and Output Vital Signs (last 24 hours): Temp Pulse Resp BP Pulse Ox 98.2 F 62 14 178/87 H 90 L 07/28/16 04:00 07/28/16 06:02 07/28/16 06:02 07/28/16 06:02 07/28/16 06:02 Intake and Output: 07/28/16 07/28/16 06:59 18:59 Intake Total 830 Output Total 1300 Balance -470 - Medications Medications: Current Medications Albuterol/Ipratropium (Duoneb 3 Mg/0.5 Mg (3 Ml) Ud) 3 ml INH RQ6 [facility] Last Admin: 07/27/16 19:59 Dose: Not Given Carvedilol (Coreg) 3.125 mg PO BID [facility] Last Admin: 07/27/16 18:33 Dose: 3.125 mg Dexamethasone (Decadron Inj) 4 mg IV Q12 [facility] Famotidine (Pepcid) 20 mg PO BID [facility] Furosemide (Lasix) 60 mg IVP Q12 [facility] Hydralazine HCl (Apresoline) 10 mg PO Q8 [facility] Piperacillin Sod/Tazobactam Sod (Zosyn 2.25 Gm Iv Premix) 2.25 gm in 50 mls @ 100 mls/hr IVPB Q6H [facility] Last Admin: 07/28/16 07:43 Dose: 100 mls/hr Metronidazole (Flagyl) 500 mg in 100 mls @ 100 mls/hr IVPB Q8 [facility] Last Admin: 07/28/16 05:40 Dose: 100 mls/hr Midazolam HCl (Versed Inj) 2 mg IVP Q3 [facility] Nifedipine (Procardia) 10 mg PO BID [facility] Last Admin: 07/27/16 18:33 Dose: 10 mg - Labs Labs: 07/28/16 06:24 07/28/16 06:24 PT 12.7 SECONDS (9.7-12.2) H 07/27/16 04:54 INR 1.1 07/27/16 04:54 APTT 29 SECONDS (21-34) 07/27/16 04:54 - Constitutional Appears: Toxic - Head Exam Head Exam: NORMAL INSPECTION - Eye Exam Eye Exam: absent: Scleral icterus - ENT Exam Additional comments: intubated - Neck Exam Neck Exam: Full ROM. absent: Lymphadenopathy - Respiratory Exam Respiratory Exam: Rhonchi - Cardiovascular Exam Cardiovascular Exam: Tachycardia - GI/Abdominal Exam GI & Abdominal Exam: Soft, Tenderness - Extremities Exam Extremities Exam: absent: Pedal Edema - Neurological Exam Additional comments: sedated Assessment and Plan - Assessment and Plan (Free Text) Assessment: TTP CHF Acute renal failure HTN Plan: Cont Abtx, bronchodilators Family wants everything done NO DNR
--- NOTE | 2016-07-28 08:46 | CP.PCM.PN ---
Subjective - Date & Time of Evaluation Date of Evaluation: 07/25/16 Time of Evaluation: 18:00 - Subjective Subjective: AROUSABLE good urine output ventilator dependent Blood c/s - negative Objective - Vital Signs/Intake and Output Vital Signs (last 24 hours): Temp Pulse Resp BP Pulse Ox 98.2 F 62 14 178/87 H 90 L 07/28/16 04:00 07/28/16 06:02 07/28/16 06:02 07/28/16 06:02 07/28/16 06:02 Intake and Output: 07/28/16 07/28/16 06:59 18:59 Intake Total 830 Output Total 1300 Balance -470 - Medications Medications: Current Medications Albuterol/Ipratropium (Duoneb 3 Mg/0.5 Mg (3 Ml) Ud) 3 ml INH RQ6 [facility] Last Admin: 07/27/16 19:59 Dose: Not Given Carvedilol (Coreg) 3.125 mg PO BID [facility] Last Admin: 07/27/16 18:33 Dose: 3.125 mg Dexamethasone (Decadron Inj) 4 mg IV Q12 [facility] Famotidine (Pepcid) 20 mg PO BID [facility] Furosemide (Lasix) 60 mg IVP Q12 [facility] Hydralazine HCl (Apresoline) 10 mg PO Q8 [facility] Piperacillin Sod/Tazobactam Sod (Zosyn 2.25 Gm Iv Premix) 2.25 gm in 50 mls @ 100 mls/hr IVPB Q6H [facility] Last Admin: 07/28/16 07:43 Dose: 100 mls/hr Metronidazole (Flagyl) 500 mg in 100 mls @ 100 mls/hr IVPB Q8 [facility] Last Admin: 07/28/16 05:40 Dose: 100 mls/hr Midazolam HCl (Versed Inj) 2 mg IVP Q3 PRN Nifedipine (Procardia) 10 mg PO BID [facility] Last Admin: 07/27/16 18:33 Dose: 10 mg - Labs Labs: 07/28/16 06:24 07/28/16 06:24 PT 12.7 SECONDS (9.7-12.2) H 07/27/16 04:54 INR 1.1 07/27/16 04:54 APTT 29 SECONDS (21-34) 07/27/16 04:54 - Constitutional Appears: Non-toxic - Head Exam Head Exam: NORMAL INSPECTION - Eye Exam Eye Exam: absent: Scleral icterus - ENT Exam ENT Exam: Mucous Membranes Moist - Neck Exam Neck Exam: Full ROM - Respiratory Exam Respiratory Exam: Rhonchi - Cardiovascular Exam Cardiovascular Exam: REGULAR RHYTHM - GI/Abdominal Exam GI & Abdominal Exam: Soft, Normal Bowel Sounds. absent: Tenderness - Extremities Exam Extremities Exam: absent: Calf Tenderness, Pedal Edema - Neurological Exam Neurological Exam: absent: Altered Assessment and Plan - Assessment and Plan (Free Text) Assessment: TTP CHF Respiratory failure Acute renal failure HTN Plan: Plasmapharesis Cont abtx Supportive treatment
[2016-07-28] MEDS: Albuterol-Ipratrop 3 mg / 0.5 (3 ml) UD INH SCH ×3 (08:47→20:19)
--- NOTE | 2016-07-28 08:56 | CP.PCM.PN ---
Subjective - Date & Time of Evaluation Date of Evaluation: 07/27/16 Time of Evaluation: 08:52 - Subjective Subjective: no change clinically remains intubated sedated oliguric Objective - Vital Signs/Intake and Output Vital Signs (last 24 hours): Temp Pulse Resp BP Pulse Ox 98.2 F 62 14 178/87 H 90 L 07/28/16 04:00 07/28/16 06:02 07/28/16 06:02 07/28/16 06:02 07/28/16 06:02 Intake and Output: 07/28/16 07/28/16 06:59 18:59 Intake Total 830 Output Total 1300 Balance -470 - Medications Medications: Current Medications Albuterol/Ipratropium (Duoneb 3 Mg/0.5 Mg (3 Ml) Ud) 3 ml INH RQ6 [facility] Last Admin: 07/28/16 08:47 Dose: 3 ml Carvedilol (Coreg) 3.125 mg PO BID [facility] Last Admin: 07/27/16 18:33 Dose: 3.125 mg Dexamethasone (Decadron Inj) 4 mg IV Q12 [facility] Famotidine (Pepcid) 20 mg PO BID [facility] Furosemide (Lasix) 60 mg IVP Q12 [facility] Hydralazine HCl (Apresoline) 10 mg PO Q8 [facility] Piperacillin Sod/Tazobactam Sod (Zosyn 2.25 Gm Iv Premix) 2.25 gm in 50 mls @ 100 mls/hr IVPB Q6H [facility] Last Admin: 07/28/16 07:43 Dose: 100 mls/hr Metronidazole (Flagyl) 500 mg in 100 mls @ 100 mls/hr IVPB Q8 [facility] Last Admin: 07/28/16 05:40 Dose: 100 mls/hr Midazolam HCl (Versed Inj) 2 mg IVP Q3 PRN Nifedipine (Procardia) 10 mg PO BID [facility] Last Admin: 07/27/16 18:33 Dose: 10 mg - Labs Labs: 07/28/16 06:24 07/28/16 06:24 PT 12.7 SECONDS (9.7-12.2) H 07/27/16 04:54 INR 1.1 07/27/16 04:54 APTT 29 SECONDS (21-34) 07/27/16 04:54 - Constitutional Appears: Toxic - Head Exam Head Exam: NORMAL INSPECTION - Eye Exam Eye Exam: absent: Scleral icterus - ENT Exam ENT Exam: Mucous Membranes Dry - Neck Exam Neck Exam: Full ROM. absent: Lymphadenopathy - Respiratory Exam Respiratory Exam: Decreased Breath Sounds. absent: Rhonchi - Cardiovascular Exam Cardiovascular Exam: REGULAR RHYTHM - GI/Abdominal Exam GI & Abdominal Exam: Soft. absent: Tenderness - Extremities Exam Extremities Exam: Full ROM. absent: Calf Tenderness - Neurological Exam Neurological Exam: absent: Altered Assessment and Plan - Assessment and Plan (Free Text) Assessment: TTP CHF Acute respiratory failure Thrombocytopenia Plan: Cont plasmapharesis Vent management Cont bronchodilator
--- NOTE | 2016-07-28 09:03 | CP.PCM.PN ---
Subjective - Date & Time of Evaluation Date of Evaluation: 07/26/16 Time of Evaluation: 09:15 - Subjective Subjective: sedated intubated Case discussed w/ family NO DNR Objective - Vital Signs/Intake and Output Vital Signs (last 24 hours): Temp Pulse Resp BP Pulse Ox 98.2 F 62 14 178/87 H 90 L 07/28/16 04:00 07/28/16 06:02 07/28/16 06:02 07/28/16 06:02 07/28/16 06:02 Intake and Output: 07/28/16 07/28/16 06:59 18:59 Intake Total 830 Output Total 1300 Balance -470 - Medications Medications: Current Medications Albuterol/Ipratropium (Duoneb 3 Mg/0.5 Mg (3 Ml) Ud) 3 ml INH RQ6 [facility] Last Admin: 07/28/16 08:47 Dose: 3 ml Carvedilol (Coreg) 3.125 mg PO BID [facility] Last Admin: 07/27/16 18:33 Dose: 3.125 mg Dexamethasone (Decadron Inj) 4 mg IV Q12 [facility] Famotidine (Pepcid) 20 mg PO BID [facility] Furosemide (Lasix) 60 mg IVP Q12 [facility] Hydralazine HCl (Apresoline) 10 mg PO Q8 [facility] Piperacillin Sod/Tazobactam Sod (Zosyn 2.25 Gm Iv Premix) 2.25 gm in 50 mls @ 100 mls/hr IVPB Q6H [facility] Last Admin: 07/28/16 07:43 Dose: 100 mls/hr Metronidazole (Flagyl) 500 mg in 100 mls @ 100 mls/hr IVPB Q8 [facility] Last Admin: 07/28/16 05:40 Dose: 100 mls/hr Midazolam HCl (Versed Inj) 2 mg IVP Q3 PRN Nifedipine (Procardia) 10 mg PO BID [facility] Last Admin: 07/27/16 18:33 Dose: 10 mg - Labs Labs: 07/28/16 06:24 07/28/16 06:24 PT 12.7 SECONDS (9.7-12.2) H 07/27/16 04:54 INR 1.1 07/27/16 04:54 APTT 29 SECONDS (21-34) 07/27/16 04:54 Assessment and Plan - Assessment and Plan (Free Text) Assessment: TTP CHF Acute respiratory failure HTN Plan: Cont plasmapharesis Cont Abtx 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
[2016-07-28 09:06] LABS: ANISOCYTOSIS SLIGHT; HYPOCHROMIC SLIGHT; LYMPHOCYTE 10 % (20-40); MONOCYTE 7 % (0-10); NEUTROPHIL 83 % (50-75); PLATELET ESTIMATE DECREASED (NORMAL); POIKILOCYTOSIS SLIGHT; TOTAL CELLS COUNTED 100
[2016-07-28 09:07] LABS: LARGE PLATELETS PRESENT; TARGET CELLS SLIGHT; TOXIC GRANULATION PRESENT
--- NOTE | 2016-07-28 09:20 | RAD ---
Chest x-ray single frontal view History: Intubated. Comparison: None available. Findings: Lines and tubes in stable position. Moderate venous congestion. Prominent bibasilar airspace opacities with small to moderate bilateral pleural effusions. Mild cardiomegaly. Degenerative changes in the spine and shoulders. Impression: Lines and tubes in stable position. Moderate venous congestion. Prominent bibasilar airspace opacities with small to moderate bilateral pleural effusions. Mild cardiomegaly.
--- NOTE | 2016-07-28 11:27 | CP.PCM.PN ---
Subjective - Date & Time of Evaluation Date of Evaluation: 07/28/16 Time of Evaluation: 08:00 - Subjective Subjective: INTUBATED HAD PLASMAPHERESIS RX IN PROGRESS Objective - Vital Signs/Intake and Output Vital Signs (last 24 hours): Temp Pulse Resp BP Pulse Ox 98.4 F 74 15 165/99 H 93 L 07/28/16 08:00 07/28/16 11:02 07/28/16 11:02 07/28/16 11:02 07/28/16 11:02 Intake and Output: 07/28/16 07/28/16 06:59 18:59 Intake Total 830 80 Output Total 1300 150 Balance -470 -70 - Medications Medications: Current Medications Albuterol/Ipratropium (Duoneb 3 Mg/0.5 Mg (3 Ml) Ud) 3 ml INH RQ6 [facility] Last Admin: 07/28/16 08:47 Dose: 3 ml Carvedilol (Coreg) 3.125 mg PO BID [facility] Last Admin: 07/28/16 10:02 Dose: 3.125 mg Dexamethasone (Decadron Inj) 4 mg IV Q12 [facility] Last Admin: 07/28/16 10:22 Dose: Not Given Famotidine (Pepcid) 20 mg PO BID [facility] Last Admin: 07/28/16 10:44 Dose: 20 mg Furosemide (Lasix) 60 mg IVP Q12 [facility] Last Admin: 07/28/16 10:02 Dose: 60 mg Hydralazine HCl (Apresoline) 10 mg PO Q8 [facility] Last Admin: 07/28/16 10:36 Dose: 10 mg Piperacillin Sod/Tazobactam Sod (Zosyn 2.25 Gm Iv Premix) 2.25 gm in 50 mls @ 100 mls/hr IVPB Q6H [facility] Last Admin: 07/28/16 07:43 Dose: 100 mls/hr Metronidazole (Flagyl) 500 mg in 100 mls @ 100 mls/hr IVPB Q8 [facility] Last Admin: 07/28/16 05:40 Dose: 100 mls/hr Midazolam HCl (Versed Inj) 2 mg IVP Q3 PRN Nifedipine (Procardia) 10 mg PO BID [facility] Last Admin: 07/28/16 10:02 Dose: 10 mg - Labs Labs: 07/28/16 06:24 07/28/16 06:24 PT 12.7 SECONDS (9.7-12.2) H 07/27/16 04:54 INR 1.1 07/27/16 04:54 APTT 29 SECONDS (21-34) 07/27/16 04:54 - Constitutional Appears: Non-toxic, Chronically Ill - Head Exam Head Exam: NORMOCEPHALIC - Eye Exam Eye Exam: PERRL - ENT Exam ENT Exam: Mucous Membranes Dry - Neck Exam Neck Exam: absent: Lymphadenopathy - Respiratory Exam Respiratory Exam: Decreased Breath Sounds, Rhonchi - Cardiovascular Exam Cardiovascular Exam: REGULAR RHYTHM, +S1, +S2 - GI/Abdominal Exam GI & Abdominal Exam: Distended, Soft Assessment and Plan (1) Acute respiratory failure requiring reintubation Status: Acute (2) CHF (congestive heart failure) Status: Acute (3) Dehydration Status: Acute (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
[2016-07-28] MEDS: Midazolam 2 MG/2 ML VIAL IVP PRN ×2 (12:08→17:23)
--- NOTE | 2016-07-28 12:37 | CP.PCM.PN ---
Subjective - Date & Time of Evaluation Date of Evaluation: 07/28/16 Time of Evaluation: 12:35 - Subjective Subjective: Progress Note for Dr. Jules Pt seen and examined at bedside. Pt remains agitated when awake as per nursing, Pt has been sedated with versed during these episodes. Pt remains intubated at this time. Objective - Vital Signs/Intake and Output Vital Signs (last 24 hours): Temp Pulse Resp BP Pulse Ox 98.4 F 74 15 165/99 H 93 L 07/28/16 08:00 07/28/16 11:02 07/28/16 11:02 07/28/16 11:02 07/28/16 11:02 Intake and Output: 07/28/16 07/28/16 06:59 18:59 Intake Total 830 120 Output Total 1300 300 Balance -470 -180 - Medications Medications: Current Medications Albuterol/Ipratropium (Duoneb 3 Mg/0.5 Mg (3 Ml) Ud) 3 ml INH RQ6 [facility] Last Admin: 07/28/16 08:47 Dose: 3 ml Carvedilol (Coreg) 3.125 mg PO BID [facility] Last Admin: 07/28/16 10:02 Dose: 3.125 mg Dexamethasone (Decadron Inj) 4 mg IV Q12 [facility] Last Admin: 07/28/16 10:22 Dose: Not Given Famotidine (Pepcid) 20 mg PO BID [facility] Last Admin: 07/28/16 10:44 Dose: 20 mg Furosemide (Lasix) 60 mg IVP Q12 [facility] Last Admin: 07/28/16 10:02 Dose: 60 mg Hydralazine HCl (Apresoline) 10 mg PO Q8 [facility] Last Admin: 07/28/16 10:36 Dose: 10 mg Piperacillin Sod/Tazobactam Sod (Zosyn 2.25 Gm Iv Premix) 2.25 gm in 50 mls @ 100 mls/hr IVPB Q6H [facility] Last Admin: 07/28/16 07:43 Dose: 100 mls/hr Metronidazole (Flagyl) 500 mg in 100 mls @ 100 mls/hr IVPB Q8 [facility] Last Admin: 07/28/16 05:40 Dose: 100 mls/hr Midazolam HCl (Versed Inj) 2 mg IVP Q3 PRN Last Admin: 06/19/17 12:08 Dose: 2 mg Nifedipine (Procardia) 10 mg PO BID [facility] Last Admin: 07/28/16 10:02 Dose: 10 mg - Labs Labs: 07/28/16 06:24 07/28/16 06:24 PT 12.7 SECONDS (9.7-12.2) H 07/27/16 04:54 INR 1.1 07/27/16 04:54 APTT 29 SECONDS (21-34) 07/27/16 04:54 - Constitutional Appears: Toxic, In Acute Distress - Head Exam Head Exam: ATRAUMATIC, NORMAL INSPECTION, NORMOCEPHALIC - ENT Exam ENT Exam: Mucous Membranes Moist - Respiratory Exam Respiratory Exam: Decreased Breath Sounds, Rales - Cardiovascular Exam Cardiovascular Exam: RRR, +S1, +S2 - GI/Abdominal Exam GI & Abdominal Exam: Soft, Normal Bowel Sounds. absent: Tenderness - Extremities Exam Extremities Exam: Normal Inspection. absent: Calf Tenderness - Skin Skin Exam: Intact, Warm Assessment and Plan (1) CHF (congestive heart failure) Assessment & Plan: EF 10% Life vest Continue current medical management Very poor prognosis at this time Status: Acute
[2016-07-28] MEDS ORDERED: DiphenhydrAMINE 50 mg/ml Inj IVP ONE (17:51)
[2016-07-28] MEDS: Dexmedetomidine Hydrochloride 200 MCG in Sodium Chloride 0.9% 48 ML IV PRN (18:10)
--- NOTE | 2016-07-28 19:57 | CP.PCM.PN ---
Subjective - Date & Time of Evaluation Date of Evaluation: 07/28/16 Time of Evaluation: 19:56 - Subjective Subjective: pt seen and examined, s/p hd today #[id number] pt is receiving plasmapheresis d/w in rounds Objective - Vital Signs/Intake and Output Vital Signs (last 24 hours): Temp Pulse Resp BP Pulse Ox 98.6 F 69 15 129/80 99 07/28/16 17:21 07/28/16 18:00 07/28/16 18:00 07/28/16 17:35 07/28/16 18:00 Intake and Output: 07/28/16 07/29/16 18:59 06:59 Intake Total 767.0 Output Total 905 Balance -138.0 - Medications Medications: Current Medications Albuterol/Ipratropium (Duoneb 3 Mg/0.5 Mg (3 Ml) Ud) 3 ml INH RQ6 [facility] Last Admin: 07/28/16 13:20 Dose: 3 ml Carvedilol (Coreg) 3.125 mg PO BID [facility] Last Admin: 07/28/16 18:09 Dose: 3.125 mg Dexamethasone (Decadron Inj) 4 mg IV Q12 [facility] Last Admin: 07/28/16 10:22 Dose: Not Given Famotidine (Pepcid) 20 mg PO BID [facility] Last Admin: 07/28/16 17:26 Dose: 20 mg Furosemide (Lasix) 60 mg IVP Q12 [facility] Last Admin: 07/28/16 10:02 Dose: 60 mg Hydralazine HCl (Apresoline) 10 mg PO Q8 [facility] Last Admin: 07/28/16 14:25 Dose: Not Given Piperacillin Sod/Tazobactam Sod (Zosyn 2.25 Gm Iv Premix) 2.25 gm in 50 mls @ 100 mls/hr IVPB Q6H [facility] Last Admin: 07/28/16 18:12 Dose: 100 mls/hr Metronidazole (Flagyl) 500 mg in 100 mls @ 100 mls/hr IVPB Q8 [facility] Last Admin: 07/28/16 13:52 Dose: 100 mls/hr Dexmedetomidine HCl 200 mcg/ (Sodium Chloride) 50 mls @ 3.47 mls/hr IV TITR PRN ; Protocol; 0.2 MCG/KG/HR PRN Reason: Sedation Last Admin: 07/28/16 18:10 Dose: 0.2 mcg/kg/hr, 3.47 mls/hr Midazolam HCl (Versed Inj) 2 mg IVP Q3 PRN Last Admin: 07/28/16 17:23 Dose: 2 mg Nifedipine (Procardia) 10 mg PO BID [facility] Last Admin: 07/28/16 18:09 Dose: 10 mg - Labs Labs: 07/28/16 06:24 07/28/16 06:24 PT 12.7 SECONDS (9.7-12.2) H 07/27/16 04:54 INR 1.1 07/27/16 04:54 APTT 29 SECONDS (21-34) 07/27/16 04:54
--- NOTE | 2016-07-28 23:22 | PN ---
DATE: 07/28/2016 The patient is located in ICU, room 6. REQUESTED PHYSICIAN: Dr. Anthony Mclaughlin. REASON FOR RENAL CONSULTATION: Acute renal failure, possible TTP and plasmapheresis. HISTORY OF PRESENT ILLNESS: The patient is an 80-year-old elderly female from [facility] who recently came from vacation after 5 months to [place] 2 weeks ago prior to the admission and admitted with chief complaints of nausea, vomiting, diarrhea, abdominal pain, increased BUN and creatinine and altered mental status and low platelets and also increased BUN and creatinine. The patient was evaluated by restrooms or lounges maid for the thrombocytopenia and the initial impression was possible TTP and started on FFP q. 6-8 hours without much improvement and requesting plasmapheresis. The patient is not in acute distress. The patient remains intubated. The patient was also found to have worsening renal function and discussed with risk intern and the patient's family today and decided for hemodialysis and scheduled for hemodialysis this afternoon. The patient was seen and examined also during the plasmapheresis. PHYSICAL EXAMINATION: VITAL SIGNS: Blood pressure 120/84, pulse 66, respiration 13, temperature 98.2 , saturation 99%. Height 5 feet 4 inches and weight is 153 pounds. GENERAL: This patient is an 80-year-old elderly female on ventilator, not in distress, moving all extremities, arousable. HEENT: Pupils normal, reactive to light and accommodation. Conjunctivae pink. Sclerae anicteric. Tongue is moist. NECK: Trachea is midline. On ventilator. LUNGS: Symmetric on both sides. Bilateral breath sounds present. Occasional basal crackles present. CARDIOVASCULAR: [place] at the fifth intercostal space midclavicular line. S1 and S2 audible. No murmur, no gallop. ABDOMEN: Normal in appearance, soft, tympanic. No guarding, no rigidity. No hepatosplenomegaly. CENTRAL NERVOUS SYSTEM: The patient is on ventilator and moving all extremities , status post IV Ativan. EXTREMITIES: No cyanosis, no clubbing, no edema. Sensory and motor system is grossly within normal limits. CURRENT MEDICATIONS: Include as follows: Hydralazine 10 mg p.o. q. 8 hours, Coreg 3.125 mg p.o. b.i.d., Decadron 4 mg IV q. 12 hours, IV piggyback, DuoNeb inhaler, Flagyl, Lasix, Pepcid, nifedipine and Versed and Zosyn. LABORATORY DATA: Include: WBC 7.9, hemoglobin 10.5, hematocrit is 32.1, platelets 99, neutrophils 83 and lymphocytes 10 and monocytes 7. Sodium is 143 , potassium 3.6, chloride 92, CO2 of 38, BUN 90, creatinine 4.8, glucose 207, calcium 8.1, phosphorus 7.4, magnesium 2.4, total bilirubin 0.9, AST 33, ALT 48 , alkaline phosphatase 112, total protein 5.7, albumin is 2.9 and hepatitis B surface antibody is positive. Chest x-ray as of 07/28/2016: Chest x-ray lines and tubes in stable position, moderate venous congestion, prominent bibasilar airspace opacities with small to moderate bilateral pleural effusion. SUMMARY: The patient is about an 80-year-old elderly female with a past medical history significant for hypertension, questionable chronic kidney disease, was admitted with the chief complaints of nausea, vomiting, diarrhea, abdominal pain and altered mental status, increased BUN and creatinine, and low platelets. 1. Acute renal failure on chronic kidney disease versus acute renal failure, rule out acute tubular necrosis, rule out thrombotic microangiopathy. 2. Thrombocytopenia, rule out TTP. The patient is on plasmapheresis. Platelets are slowly improving. 3. Respiratory failure. 4. Cardiomyopathy. 5. Thrombocytopenia. 6. Pneumonia with pleural effusion. I discussed with risk intern, Dr. Sary Ibarra, and also the patient who in turn discussed with the patient's family regarding the need for dialysis and agreed and obtained consent from the patient's family for hemodialysis and is scheduled for hemodialysis today, this afternoon. The patient underwent hemodialysis today without any complications and the patient has been receiving plasmapheresis this evening after hemodialysis and tolerating very well. We will discuss with the restrooms or lounges maid in a.m. for further continuation of the need for the continuation of the plasmapheresis in the a.m. We will check labs, CBC , CMP, PT, PTT, fibrinogen, fibrin degradation product and LDH and haptoglobin in the a.m. We will follow with you. Thank you for allowing me to participate in your patient's care. Horacio Graham MD cc: [id number] TT: 07/28/2016 23:21:35 Confirmation # [id number] Dictation # [id number] pati DURON
[2016-07-29] MEDS: (Novolog) Insulin Aspart, Recombinant 100 u/ml 10 ml vial SC SCH ×4 (00:47→18:12)
[2016-07-29] MEDS: Piperacill/Tazo 2.25gm in Dex 2.25 GM/50 ML BAG IVPB SCH ×4 (00:48→18:11)
[2016-07-29] MEDS: Albuterol-Ipratrop 3 mg / 0.5 (3 ml) UD INH SCH ×4 (01:17→19:31)
[2016-07-29 05:25] LABS: ABG ALLEN TEST POS; ARTERIAL BLOOD GAS HEMOGLOBIN 10.9 g/dL (11.7-17.4); ARTERIAL BLOOD GAS PCO2 50 mm/Hg (35-45); ARTERIAL BLOOD GAS PH 7.49 (7.35-7.45); ARTERIAL BLOOD GAS PO2 92 mm/Hg (80-100); ARTERIAL BLOOD GAS TCO2 39.6 mmol/L (22-28)
[2016-07-29] MEDS: metroNIDAZOLE IV 500 mg/100 ml 500 MG/100 ML BAG IVPB SCH ×3 (05:33→23:08)
[2016-07-29] MEDS: Dexmedetomidine Hydrochloride 200 MCG in Sodium Chloride 0.9% 48 ML IV PRN (05:37)
[2016-07-29 06:18] LABS: BASO % 0.1 % (0.0-2.0); LYMPH # 0.3 K/uL (1.0-4.3); LYMPH % 2.9 % (20.0-40.0); MEAN CELL VOLUME 100.4 fL (81.0-99.0); MEAN CORPUSCULAR HEMOGLOBIN 32.2 pg (27.0-31.0); MEAN CORPUSCULAR HGB CONC 32.1 g/dL (33.0-37.0); MEAN PLATELET VOLUME 11.8 fL (7.2-11.7); MONO # 0.9 K/uL (0.0-0.8); MONO % 8.4 % (0.0-10.0); NEUT # 9.4 K/uL (1.8-7.0); NEUT % 88.6 % (50.0-75.0); NRBC % 0.3 % (0.0-2.0); PLATELET COUNT 106 K/uL (130-400); RED CELL DISTRIBUTION WIDTH 18.2 % (11.5-14.5); WHITE BLOOD COUNT 10.7 K/uL (4.8-10.8)
[2016-07-29 06:28] LABS: FIBRINOGEN 236 mg/dL (200-400); PARTIAL THROMBOPLASTIN TIME 28 SECONDS (21-34); PROTHROMBIN TIME 11.4 SECONDS (9.7-12.2)
[2016-07-29 06:54] LABS: FDP INTERPRETATION NEGATIVE (NEGATIVE); FDP QUANTITY <10 ug/mL (<10)
[2016-07-29 06:57] LABS: ALBUMIN 3.3 g/dL (3.5-5.0)
[2016-07-29 07:00] LABS: ALB/GLOB RATIO 1.2 (1.0-2.1)
[2016-07-29 07:01] LABS: CALCIUM 8.1 mg/dl (8.6-10.4); MAGNESIUM 2.1 mg/dL (1.6-2.3)
--- NOTE | 2016-07-29 07:19 | CP.CCUPN ---
<Ruby Donohue - Last Filed: 07/29/16 13:01> CCU Subjective - Physician Review Subjective (Free Text): 07/29/16 12:50 Patient seen and examined Family at bedside No acute events overnight as per nursing Patient intubated on vent- tolerating CPAP + PS (70%, 5, 15) Patient is alert and responds to name Tolerating feeds novasource renal @ 40cc/hr no residuals ROS unobtainable CCU Objective - Vital Signs / Intake & Output Vital Signs (Last 4 hours): Vital Signs Temp Pulse Resp BP Pulse Ox 07/29/16 06:00 56 L 14 95 07/29/16 05:55 163/88 H 07/29/16 05:11 58 L 15 174/88 H 95 07/29/16 04:56 59 L 14 96 07/29/16 04:00 98.8 F 56 L 14 97 07/29/16 03:56 56 L 14 163/79 H 97 Intake and Output (Last 8hrs): Intake & Output 07/28/16 07/29/16 07/29/16 22:59 06:59 14:59 Intake Total 527.5 641.5 Output Total 340 575 Balance 187.5 66.5 Weight 153 lb 0.013 oz 153 lb 14.122 oz Intake: IV 50 Intake, IV Amount 167.5 231.5 Right Distal Port 150 200 Internal Jugular Right Proximal Port 17.5 31.5 Internal Jugular Tube Feeding 360 360 Output: Urine 340 575 Urethral (Sharp) 340 575 Other: # Bowel Movements 0 0 - Physical Exam Head: Positive for: Atraumatic, Normocephalic Pupils: Positive for: PERRL Conjunctiva: Positive for: Normal. Negative for: Injected, Icteric Mouth: Positive for: Moist Mucous Membranes Neck: Negative for: JVD Respiratory/Chest: Positive for: Good Air Exchange, Rhonchi. Negative for: Accessory Muscle Use, Wheezes, Rales Cardiovascular: Positive for: Regular Rate and Rhythm, Normal S1, S2. Negative for: Murmurs Abdomen: Positive for: Normal Bowel Sounds. Negative for: Tenderness, Distention Upper Extremity: Positive for: Normal Inspection. Negative for: Cyanosis, Edema Lower Extremity: Positive for: Normal Inspection. Negative for: Edema Neurological: Negative for: Speech Normal Skin: Positive for: Warm, Dry, Rashes (resolving) Psychiatric: Positive for: Alert. Negative for: Oriented x 3 - Medications Active Medications: Active Medications Generic Name Dose Route Start Last Admin Trade Name Freq PRN Reason Stop Dose Admin Albuterol/Ipratropium 3 ml 07/23/16 08:00 07/29/16 01:17 Duoneb 3 Mg/0.5 Mg (3 Ml) Ud INH 3 ml RQ6 JESSI Administration Carvedilol 3.125 mg 07/24/16 18:00 07/28/16 18:09 Coreg PO 3.125 mg BID JESSI Administration Dexamethasone 4 mg 07/28/16 10:00 07/28/16 21:54 Decadron Inj IV 4 mg Q12 JESSI Administration Famotidine 20 mg 07/28/16 10:00 07/28/16 17:26 Pepcid PO 20 mg BID JESSI Administration Furosemide 60 mg 07/28/16 08:29 07/28/16 21:55 Lasix IVP 60 mg Q12 JESSI Administration Hydralazine HCl 10 mg 07/28/16 08:30 07/29/16 05:33 Apresoline PO 10 mg Q8 JESSI Administration Piperacillin Sod/Tazobactam Sod 2.25 gm in 50 mls @ 100 mls/hr 07/23/16 13:00 07/29/16 06:59 Zosyn 2.25 Gm Iv Premix IVPB 100 mls/hr Q6H JESSI Administration Metronidazole 500 mg in 100 mls @ 100 mls/hr 07/24/16 22:00 07/29/16 05:33 Flagyl IVPB 100 mls/hr Q8 JESSI Administration Dexmedetomidine HCl 200 mcg/ 50 mls @ 3.47 mls/hr 07/28/16 17:15 07/29/16 05: 37 Sodium Chloride IV 0.2 mcg/kg/hr TITR PRN 3.47 mls/hr Sedation Administration Protocol 0.2 MCG/KG/HR Insulin Aspart 0 unit 07/29/16 00:00 07/29/16 05:34 Novolog SC 5 unit Q6 JESSI Administration Protocol Midazolam HCl 2 mg 07/28/16 10:00 07/28/16 17:23 Versed Inj IVP 2 mg Q3 PRN Administration Nifedipine 10 mg 07/25/16 12:00 07/28/16 18:09 Procardia PO 10 mg BID JESSI Administration - Patient Studies Lab Studies: Lab Studies 07/29/16 07/29/16 07/29/16 Range/Units 06:09 06:09 06:08 WBC 10.7 (4.8-10.8) K/uL RBC 3.40 L (3.80-5.20) Mil/uL Hgb 11.0 (11.0-16.0) g/dL Hct 34.1 (34.0-47.0) % MCV 100.4 H (81.0-99.0) fL MCH 32.2 H (27.0-31.0) pg MCHC 32.1 L (33.0-37.0) g/dL RDW 18.2 H (11.5-14.5) % Plt Count 106 L (130-400) K/uL MPV 11.8 H (7.2-11.7) fL Neut % (Auto) 88.6 H (50.0-75.0) % Lymph % (Auto) 2.9 L (20.0-40.0) % [place] % (Auto) 8.4 (0.0-10.0) % Eos % (Auto) 0.0 (0.0-4.0) % Baso % (Auto) 0.1 (0.0-2.0) % Neut # 9.4 H (1.8-7.0) K/uL Lymph # 0.3 L (1.0-4.3) K/uL [place] # 0.9 H (0.0-0.8) K/uL Eos # 0.0 (0.0-0.7) K/uL Baso # 0.0 (0.0-0.2) K/uL Neutrophils % (Manual) (50-75) % Lymphocytes % (Manual) (20-40) % Monocytes % (Manual) (0-10) % Toxic Granulation Platelet Estimate (NORMAL) Large Platelets Hypochromasia (manual) Poikilocytosis (manual Anisocytosis (manual) Target Cells PT 11.4 (9.7-12.2) SECONDS INR 1.0 APTT 28 (21-34) SECONDS Fibrinogen 236 (200-400) mg/dL Fibrin Degrad Products Negative D (NEGATIVE) Fibrin Degrad Prod, Qt <10 (<10) ug/mL Puncture Site pCO2 (35-45) mm/Hg pO2 (80-100) mm/Hg HCO3 (21-28) mmol/L ABG pH (7.35-7.45) ABG Total CO2 (22-28) mmol/L ABG O2 Saturation (95-98) % ABG Base Excess (-2.0-3.0) mmol/L ABG Hemoglobin (11.7-17.4) g/dL ABG Carboxyhemoglobin (0.5-1.5) % POC ABG HHb (Measured) (0.0-5.0) % ABG Methemoglobin (0.0-3.0) % Braxton Test A-a O2 Difference mm/Hg Respiratory Index Hgb O2 Saturation (95.0-98.0) % Mechanical Rate FiO2 % Tidal Volume PEEP Sodium 139 (132-148) mmol/L Potassium 3.8 (3.6-5.2) mmol/L Chloride 93 L (98-107) mmol/L Carbon Dioxide 32 H (22-30) mmol/L Anion Gap 18 (10-20) BUN 69 H (7-17) mg/dL Creatinine 3.4 H (0.7-1.2) MG/DL Est GFR ( Amer) 16 Est GFR (Non-Af Amer) 13 POC Glucose (mg/dL) (65-110) mg/dL Random Glucose 307 H (65-105) mg/dL Calcium 8.1 L (8.6-10.4) mg/dl Phosphorus 6.7 H (2.5-4.5) mg/dL Magnesium 2.1 (1.6-2.3) mg/dL Total Bilirubin 0.9 (0.2-1.3) mg/dL AST 38 H (14-36) U/L ALT 39 (9-52) U/L Alkaline Phosphatase 146 H D (38-126) U/L Lactate Dehydrogenase 789 H (313-618) U/L Total Protein 6.1 L (6.3-8.3) g/dL Albumin 3.3 L (3.5-5.0) g/dL Globulin 2.7 (2.2-3.9) gm/dL Albumin/Globulin Ratio 1.2 (1.0-2.1) Hep Bs Antibody (NEGATIVE) 07/29/16 07/29/16 07/29/16 Range/Units 05:15 05:07 00:22 WBC (4.8-10.8) K/uL RBC (3.80-5.20) Mil/uL Hgb (11.0-16.0) g/dL Hct (34.0-47.0) % MCV (81.0-99.0) fL MCH (27.0-31.0) pg MCHC (33.0-37.0) g/dL RDW (11.5-14.5) % Plt Count (130-400) K/uL MPV (7.2-11.7) fL Neut % (Auto) (50.0-75.0) % Lymph % (Auto) (20.0-40.0) % [place] % (Auto) (0.0-10.0) % Eos % (Auto) (0.0-4.0) % Baso % (Auto) (0.0-2.0) % Neut # (1.8-7.0) K/uL Lymph # (1.0-4.3) K/uL [place] # (0.0-0.8) K/uL Eos # (0.0-0.7) K/uL Baso # (0.0-0.2) K/uL Neutrophils % (Manual) (50-75) % Lymphocytes % (Manual) (20-40) % Monocytes % (Manual) (0-10) % Toxic Granulation Platelet Estimate (NORMAL) Large Platelets Hypochromasia (manual) Poikilocytosis (manual Anisocytosis (manual) Target Cells PT (9.7-12.2) SECONDS INR APTT (21-34) SECONDS Fibrinogen (200-400) mg/dL Fibrin Degrad Products (NEGATIVE) Fibrin Degrad Prod, Qt (<10) ug/mL Puncture Site L rad pCO2 50 H (35-45) mm/Hg pO2 92 (80-100) mm/Hg HCO3 35.0 H (21-28) mmol/L ABG pH 7.49 H (7.35-7.45) ABG Total CO2 39.6 H (22-28) mmol/L ABG O2 Saturation 99.0 H (95-98) % ABG Base Excess 13.0 H (-2.0-3.0) mmol/L ABG Hemoglobin 10.9 L (11.7-17.4) g/dL ABG Carboxyhemoglobin 1.8 H (0.5-1.5) % POC ABG HHb (Measured) 1.0 (0.0-5.0) % ABG Methemoglobin 1.5 (0.0-3.0) % Braxton Test Pos A-a O2 Difference 345.0 mm/Hg Respiratory Index 3.8 Hgb O2 Saturation 95.7 (95.0-98.0) % Mechanical Rate 14 FiO2 70.0 % Tidal Volume 450 PEEP 5 Sodium (132-148) mmol/L Potassium (3.6-5.2) mmol/L Chloride (98-107) mmol/L Carbon Dioxide (22-30) mmol/L Anion Gap (10-20) BUN (7-17) mg/dL Creatinine (0.7-1.2) MG/DL Est GFR ( Amer) Est GFR (Non-Af Amer) POC Glucose (mg/dL) 389 H 329 H (65-110) mg/dL Random Glucose (65-105) mg/dL Calcium (8.6-10.4) mg/dl Phosphorus (2.5-4.5) mg/dL Magnesium (1.6-2.3) mg/dL Total Bilirubin (0.2-1.3) mg/dL AST (14-36) U/L ALT (9-52) U/L Alkaline Phosphatase (38-126) U/L Lactate Dehydrogenase (313-618) U/L Total Protein (6.3-8.3) g/dL Albumin (3.5-5.0) g/dL Globulin (2.2-3.9) gm/dL Albumin/Globulin Ratio (1.0-2.1) Hep Bs Antibody (NEGATIVE) 07/28/16 07/28/16 07/28/16 Range/Units 15:17 06:24 06:24 WBC (4.8-10.8) K/uL RBC (3.80-5.20) Mil/uL Hgb (11.0-16.0) g/dL Hct (34.0-47.0) % MCV (81.0-99.0) fL MCH (27.0-31.0) pg MCHC (33.0-37.0) g/dL RDW (11.5-14.5) % Plt Count (130-400) K/uL MPV (7.2-11.7) fL Neut % (Auto) (50.0-75.0) % Lymph % (Auto) (20.0-40.0) % [place] % (Auto) (0.0-10.0) % Eos % (Auto) (0.0-4.0) % Baso % (Auto) (0.0-2.0) % Neut # (1.8-7.0) K/uL Lymph # (1.0-4.3) K/uL [place] # (0.0-0.8) K/uL Eos # (0.0-0.7) K/uL Baso # (0.0-0.2) K/uL Neutrophils % (Manual) 83 H (50-75) % Lymphocytes % (Manual) 10 L (20-40) % Monocytes % (Manual) 7 (0-10) % Toxic Granulation Present Platelet Estimate Decreased L (NORMAL) Large Platelets Present Hypochromasia (manual) Slight Poikilocytosis (manual Slight Anisocytosis (manual) Slight Target Cells Slight PT (9.7-12.2) SECONDS INR APTT (21-34) SECONDS Fibrinogen (200-400) mg/dL Fibrin Degrad Products (NEGATIVE) Fibrin Degrad Prod, Qt (<10) ug/mL Puncture Site pCO2 (35-45) mm/Hg pO2 (80-100) mm/Hg HCO3 (21-28) mmol/L ABG pH (7.35-7.45) ABG Total CO2 (22-28) mmol/L ABG O2 Saturation (95-98) % ABG Base Excess (-2.0-3.0) mmol/L ABG Hemoglobin (11.7-17.4) g/dL ABG Carboxyhemoglobin (0.5-1.5) % POC ABG HHb (Measured) (0.0-5.0) % ABG Methemoglobin (0.0-3.0) % Braxton Test A-a O2 Difference mm/Hg Respiratory Index Hgb O2 Saturation (95.0-98.0) % Mechanical Rate FiO2 % Tidal Volume PEEP Sodium 143 (132-148) mmol/L Potassium 3.6 (3.6-5.2) mmol/L Chloride 92 L (98-107) mmol/L Carbon Dioxide 38 H (22-30) mmol/L Anion Gap 17 (10-20) BUN 90 H (7-17) mg/dL Creatinine 4.8 H (0.7-1.2) MG/DL Est GFR ( Amer) 11 Est GFR (Non-Af Amer) 9 POC Glucose (mg/dL) (65-110) mg/dL Random Glucose 207 H (65-105) mg/dL Calcium 8.1 L (8.6-10.4) mg/dl Phosphorus 7.4 H (2.5-4.5) mg/dL Magnesium 2.4 H (1.6-2.3) mg/dL Total Bilirubin 0.9 (0.2-1.3) mg/dL AST 33 (14-36) U/L ALT 48 (9-52) U/L Alkaline Phosphatase 112 (38-126) U/L Lactate Dehydrogenase (313-618) U/L Total Protein 5.7 L (6.3-8.3) g/dL Albumin 2.9 L (3.5-5.0) g/dL Globulin 2.7 (2.2-3.9) gm/dL Albumin/Globulin Ratio 1.1 (1.0-2.1) Hep Bs Antibody Positive (NEGATIVE) Laboratory Results - last 24 hr 07/28/16 07/28/16 07/28/16 06:24 06:24 15:17 WBC RBC Hgb Hct MCV MCH MCHC RDW Plt Count MPV Neut % (Auto) Lymph % (Auto) [place] % (Auto) Eos % (Auto) Baso % (Auto) Neut # Lymph # [place] # Eos # Baso # Neutrophils % (Manual) 83 H Lymphocytes % (Manual) 10 L Monocytes % (Manual) 7 Toxic Granulation Present Platelet Estimate Decreased L Large Platelets Present Hypochromasia (manual) Slight Poikilocytosis (manual Slight Anisocytosis (manual) Slight Target Cells Slight PT INR APTT Fibrinogen Fibrin Degrad Products Fibrin Degrad Prod, Qt Puncture Site pCO2 pO2 HCO3 ABG pH ABG Total CO2 ABG O2 Saturation ABG Base Excess ABG Hemoglobin ABG Carboxyhemoglobin POC ABG HHb (Measured) ABG Methemoglobin Braxton Test A-a O2 Difference Respiratory Index Hgb O2 Saturation Mechanical Rate FiO2 Tidal Volume PEEP Sodium 143 Potassium 3.6 Chloride 92 L Carbon Dioxide 38 H Anion Gap 17 BUN 90 H Creatinine 4.8 H Est GFR ( Amer) 11 Est GFR (Non-Af Amer) 9 POC Glucose (mg/dL) Random Glucose 207 H Calcium 8.1 L Phosphorus 7.4 H Magnesium 2.4 H Total Bilirubin 0.9 AST 33 ALT 48 Alkaline Phosphatase 112 Lactate Dehydrogenase Total Protein 5.7 L Albumin 2.9 L Globulin 2.7 Albumin/Globulin Ratio 1.1 Hep Bs Antibody Positive 07/29/16 07/29/16 07/29/16 00:22 05:07 05:15 WBC RBC Hgb Hct MCV MCH MCHC RDW Plt Count MPV Neut % (Auto) Lymph % (Auto) [place] % (Auto) Eos % (Auto) Baso % (Auto) Neut # Lymph # [place] # Eos # Baso # Neutrophils % (Manual) Lymphocytes % (Manual) Monocytes % (Manual) Toxic Granulation Platelet Estimate Large Platelets Hypochromasia (manual) Poikilocytosis (manual Anisocytosis (manual) Target Cells PT INR APTT Fibrinogen Fibrin Degrad Products Fibrin Degrad Prod, Qt Puncture Site L rad pCO2 50 H pO2 92 HCO3 35.0 H ABG pH 7.49 H ABG Total CO2 39.6 H ABG O2 Saturation 99.0 H ABG Base Excess 13.0 H ABG Hemoglobin 10.9 L ABG Carboxyhemoglobin 1.8 H POC ABG HHb (Measured) 1.0 ABG Methemoglobin 1.5 Braxton Test Pos A-a O2 Difference 345.0 Respiratory Index 3.8 Hgb O2 Saturation 95.7 Mechanical Rate 14 FiO2 70.0 Tidal Volume 450 PEEP 5 Sodium Potassium Chloride Carbon Dioxide Anion Gap BUN Creatinine Est GFR ( Amer) Est GFR (Non-Af Amer) POC Glucose (mg/dL) 329 H 389 H Random Glucose Calcium Phosphorus Magnesium Total Bilirubin AST ALT Alkaline Phosphatase Lactate Dehydrogenase Total Protein Albumin Globulin Albumin/Globulin Ratio Hep Bs Antibody 07/29/16 07/29/16 07/29/16 06:08 06:09 06:09 WBC 10.7 RBC 3.40 L Hgb 11.0 Hct 34.1 MCV 100.4 H MCH 32.2 H MCHC 32.1 L RDW 18.2 H Plt Count 106 L MPV 11.8 H Neut % (Auto) 88.6 H Lymph % (Auto) 2.9 L [place] % (Auto) 8.4 Eos % (Auto) 0.0 Baso % (Auto) 0.1 Neut # 9.4 H Lymph # 0.3 L [place] # 0.9 H Eos # 0.0 Baso # 0.0 Neutrophils % (Manual) Lymphocytes % (Manual) Monocytes % (Manual) Toxic Granulation Platelet Estimate Large Platelets Hypochromasia (manual) Poikilocytosis (manual Anisocytosis (manual) Target Cells PT 11.4 INR 1.0 APTT 28 Fibrinogen 236 Fibrin Degrad Products Negative D Fibrin Degrad Prod, Qt <10 Puncture Site pCO2 pO2 HCO3 ABG pH ABG Total CO2 ABG O2 Saturation ABG Base Excess ABG Hemoglobin ABG Carboxyhemoglobin POC ABG HHb (Measured) ABG Methemoglobin Braxton Test A-a O2 Difference Respiratory Index Hgb O2 Saturation Mechanical Rate FiO2 Tidal Volume PEEP Sodium 139 Potassium 3.8 Chloride 93 L Carbon Dioxide 32 H Anion Gap 18 BUN 69 H Creatinine 3.4 H Est GFR ( Amer) 16 Est GFR (Non-Af Amer) 13 POC Glucose (mg/dL) Random Glucose 307 H Calcium 8.1 L Phosphorus 6.7 H Magnesium 2.1 Total Bilirubin 0.9 AST 38 H ALT 39 Alkaline Phosphatase 146 H D Lactate Dehydrogenase 789 H Total Protein 6.1 L Albumin 3.3 L Globulin 2.7 Albumin/Globulin Ratio 1.2 Hep Bs Antibody Review of Systems - Review of Systems Systems not reviewed;Unavailable: Acuity of Condition Assessment/Plan - Assessment and Plan (Free Text) Assessment: 80 F PMHx systolic CHF (EF-10%) presented with acute renal failure, acute respiratory failure, spherocytosis. Thrombocytopenia - current suspicion of TTP. Plan: Neuro: Alert and responsive Precedex gtt Versed 2mg ivp q3 prn Pulm: Acute respiratory failure, tolerating CPAP + PS (70%, 5, 15) Duoneb 3ml inh q6 CXR 07/29: patchy airspace opacities in mid to lower lung zones b/l with associated smal to moderate b/l pleural effusions. Venous congestion. Mild cardiomegaly LE dopplers negative b/l Zosyn 2.25gm ivpb q6 CV: Hemodynamically stable. 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 Renal: Nonoliguric MARCO Patient had HD yesterday 07/28 Cr 3.4 down from 4.8 Renal u/s: unremarkable Monitor Endo: DM2 Accucheck RISS high dose Lantus 10U sc hs GI: NPO Novasource Renal @ 40cc/hr- tolerating Flagyl 500mg ivpb q8 CT abd/pelvis: no acute findings; nonspecific hazy change noted within mesenteric fat with mild anasarca; scattered colonic diverticula ID: Uncertain source of sepsis Urine culture negative Zosyn 2.25gm ivpb q6 Flagyl 500mg ivpb q8 DVT proph: SCDs GI proph: Pepcid 20mg po bid sharp for strict I/O's during acute illness Code status - full code Case discussed with Dr. Nitin Donohue PGY1 <Anthony Taveras S - Last Filed: 07/29/16 17:22> CCU Objective - Vital Signs / Intake & Output Vital Signs (Last 4 hours): Vital Signs Pulse Resp BP Pulse Ox 07/29/16 14:00 65 8 L 98 07/29/16 13:55 66 10 L 164/80 H 97 Intake and Output (Last 8hrs): Intake & Output 07/29/16 07/29/16 07/29/16 06:59 14:59 22:59 Intake Total 641.5 361.4 Output Total 575 290 Balance 66.5 71.4 Weight 153 lb 14.122 oz Intake: IV 50 Intake, IV Amount 231.5 161.4 Right Distal Port 200 Internal Jugular Right Medial Port 150 Internal Jugular Right Proximal Port 31.5 11.4 Internal Jugular Tube Feeding 360 200 Output: Urine 575 290 Urethral (Sharp) 575 290 Other: # Bowel Movements 0 0 - Medications Active Medications: Active Medications Generic Name Dose Route Start Last Admin Trade Name Freq PRN Reason Stop Dose Admin Albuterol/Ipratropium 3 ml 07/23/16 08:00 07/29/16 13:22 Duoneb 3 Mg/0.5 Mg (3 Ml) Ud INH 3 ml RQ6 JESSI Administration Carvedilol 3.125 mg 07/29/16 10:12 Coreg PO BID JESSI Dexamethasone 4 mg 07/28/16 10:00 07/29/16 09:47 Decadron Inj IV 4 mg Q12 JESSI Administration Famotidine 20 mg 07/30/16 10:00 Pepcid PO DAILY JESSI Furosemide 60 mg 07/28/16 08:29 07/29/16 09:46 Lasix IVP 60 mg Q12 JESSI Administration Hydralazine HCl 10 mg 07/28/16 08:30 07/29/16 13:39 Apresoline PO 10 mg Q8 JESSI Administration Piperacillin Sod/Tazobactam Sod 2.25 gm in 50 mls @ 100 mls/hr 07/23/16 13:00 07/29/16 12:31 Zosyn 2.25 Gm Iv Premix IVPB 100 mls/hr Q6H JESSI Administration Metronidazole 500 mg in 100 mls @ 100 mls/hr 07/24/16 22:00 07/29/16 13:39 Flagyl IVPB 100 mls/hr Q8 JESSI Administration Dexmedetomidine HCl 200 mcg/ 50 mls @ 3.47 mls/hr 07/28/16 17:15 07/29/16 05: 37 Sodium Chloride IV 0.2 mcg/kg/hr TITR PRN 3.47 mls/hr Sedation Administration Protocol 0.2 MCG/KG/HR Insulin Aspart 0 unit 07/29/16 12:00 07/29/16 11:50 Novolog SC 4 unit Q6H JESSI Administration Protocol Insulin Glargine 10 unit 07/29/16 22:00 Lantus SC HS JESSI Midazolam HCl 2 mg 07/28/16 10:00 07/28/16 17:23 Versed Inj IVP 2 mg Q3 PRN Administration Nifedipine 10 mg 07/25/16 12:00 07/29/16 09:47 Procardia PO 10 mg BID JESSI Administration - Patient Studies Lab Studies: Lab Studies 07/29/16 07/29/16 07/29/16 Range/Units 11:26 07:30 06:09 WBC (4.8-10.8) K/uL RBC (3.80-5.20) Mil/uL Hgb (11.0-16.0) g/dL Hct (34.0-47.0) % MCV (81.0-99.0) fL MCH (27.0-31.0) pg MCHC (33.0-37.0) g/dL RDW (11.5-14.5) % Plt Count (130-400) K/uL MPV (7.2-11.7) fL Neut % (Auto) (50.0-75.0) % Lymph % (Auto) (20.0-40.0) % [place] % (Auto) (0.0-10.0) % Eos % (Auto) (0.0-4.0) % Baso % (Auto) (0.0-2.0) % Neut # (1.8-7.0) K/uL Lymph # (1.0-4.3) K/uL [place] # (0.0-0.8) K/uL Eos # (0.0-0.7) K/uL Baso # (0.0-0.2) K/uL Neutrophils % (Manual) (50-75) % Band Neutrophils % (0-2) % Lymphocytes % (Manual) (20-40) % Monocytes % (Manual) (0-10) % Platelet Estimate (NORMAL) Large Platelets Hypochromasia (manual) Poikilocytosis (manual Basophilic Stippling Anisocytosis (manual) Microcytosis (manual) Target Cells Tear Drop Cells Haptoglobin (43-212) mg/dL PT 11.4 (9.7-12.2) SECONDS INR 1.0 APTT 28 (21-34) SECONDS Fibrinogen 236 (200-400) mg/dL Fibrin Degrad Products Negative D (NEGATIVE) Fibrin Degrad Prod, Qt <10 (<10) ug/mL [id number] Inhibitor (68-163) % Activity [id number] Inhibit Titer (()) Puncture Site pCO2 (35-45) mm/Hg pO2 (80-100) mm/Hg HCO3 (21-28) mmol/L ABG pH (7.35-7.45) ABG Total CO2 (22-28) mmol/L ABG O2 Saturation (95-98) % ABG Base Excess (-2.0-3.0) mmol/L ABG Hemoglobin (11.7-17.4) g/dL ABG Carboxyhemoglobin (0.5-1.5) % POC ABG HHb (Measured) (0.0-5.0) % ABG Methemoglobin (0.0-3.0) % Braxton Test A-a O2 Difference mm/Hg Respiratory Index Hgb O2 Saturation (95.0-98.0) % Mechanical Rate FiO2 % Tidal Volume PEEP Sodium (132-148) mmol/L Potassium (3.6-5.2) mmol/L Chloride (98-107) mmol/L Carbon Dioxide (22-30) mmol/L Anion Gap (10-20) BUN (7-17) mg/dL Creatinine (0.7-1.2) MG/DL Est GFR ( Amer) Est GFR (Non-Af Amer) POC Glucose (mg/dL) 200 H (65-110) mg/dL Random Glucose (65-105) mg/dL Calcium (8.6-10.4) mg/dl Phosphorus (2.5-4.5) mg/dL Magnesium (1.6-2.3) mg/dL Total Bilirubin (0.2-1.3) mg/dL AST (14-36) U/L ALT (9-52) U/L Alkaline Phosphatase (38-126) U/L Lactate Dehydrogenase 815 H (313-618) U/L Total Protein (6.3-8.3) g/dL Albumin (3.5-5.0) g/dL Globulin (2.2-3.9) gm/dL Albumin/Globulin Ratio (1.0-2.1) 07/29/16 07/29/16 07/29/16 Range/Units 06:09 06:08 05:15 WBC 10.7 (4.8-10.8) K/uL RBC 3.40 L (3.80-5.20) Mil/uL Hgb 11.0 (11.0-16.0) g/dL Hct 34.1 (34.0-47.0) % MCV 100.4 H (81.0-99.0) fL MCH 32.2 H (27.0-31.0) pg MCHC 32.1 L (33.0-37.0) g/dL RDW 18.2 H (11.5-14.5) % Plt Count 106 L (130-400) K/uL MPV 11.8 H (7.2-11.7) fL Neut % (Auto) 88.6 H (50.0-75.0) % Lymph % (Auto) 2.9 L (20.0-40.0) % [place] % (Auto) 8.4 (0.0-10.0) % Eos % (Auto) 0.0 (0.0-4.0) % Baso % (Auto) 0.1 (0.0-2.0) % Neut # 9.4 H (1.8-7.0) K/uL Lymph # 0.3 L (1.0-4.3) K/uL [place] # 0.9 H (0.0-0.8) K/uL Eos # 0.0 (0.0-0.7) K/uL Baso # 0.0 (0.0-0.2) K/uL Neutrophils % (Manual) 85 H (50-75) % Band Neutrophils % 1 (0-2) % Lymphocytes % (Manual) 6 L (20-40) % Monocytes % (Manual) 8 (0-10) % Platelet Estimate Slightly decreased L (NORMAL) Large Platelets Present Hypochromasia (manual) Slight Poikilocytosis (manual Slight Basophilic Stippling Slight Anisocytosis (manual) Slight Microcytosis (manual) Slight Target Cells Slight Tear Drop Cells Slight Haptoglobin (43-212) mg/dL PT (9.7-12.2) SECONDS INR APTT (21-34) SECONDS Fibrinogen (200-400) mg/dL Fibrin Degrad Products (NEGATIVE) Fibrin Degrad Prod, Qt (<10) ug/mL [id number] Inhibitor (68-163) % Activity [id number] Inhibit Titer (()) Puncture Site pCO2 (35-45) mm/Hg pO2 (80-100) mm/Hg HCO3 (21-28) mmol/L ABG pH (7.35-7.45) ABG Total CO2 (22-28) mmol/L ABG O2 Saturation (95-98) % ABG Base Excess (-2.0-3.0) mmol/L ABG Hemoglobin (11.7-17.4) g/dL ABG Carboxyhemoglobin (0.5-1.5) % POC ABG HHb (Measured) (0.0-5.0) % ABG Methemoglobin (0.0-3.0) % Braxton Test A-a O2 Difference mm/Hg Respiratory Index Hgb O2 Saturation (95.0-98.0) % Mechanical Rate FiO2 % Tidal Volume PEEP Sodium 139 (132-148) mmol/L Potassium 3.8 (3.6-5.2) mmol/L Chloride 93 L (98-107) mmol/L Carbon Dioxide 32 H (22-30) mmol/L Anion Gap 18 (10-20) BUN 69 H (7-17) mg/dL Creatinine 3.4 H (0.7-1.2) MG/DL Est GFR ( Amer) 16 Est GFR (Non-Af Amer) 13 POC Glucose (mg/dL) 389 H (65-110) mg/dL Random Glucose 307 H (65-105) mg/dL Calcium 8.1 L (8.6-10.4) mg/dl Phosphorus 6.7 H (2.5-4.5) mg/dL Magnesium 2.1 (1.6-2.3) mg/dL Total Bilirubin 0.9 (0.2-1.3) mg/dL AST 38 H (14-36) U/L ALT 39 (9-52) U/L Alkaline Phosphatase 146 H D (38-126) U/L Lactate Dehydrogenase 789 H (313-618) U/L Total Protein 6.1 L (6.3-8.3) g/dL Albumin 3.3 L (3.5-5.0) g/dL Globulin 2.7 (2.2-3.9) gm/dL Albumin/Globulin Ratio 1.2 (1.0-2.1) 07/29/16 07/29/16 07/27/16 Range/Units 05:07 00:22 04:54 WBC (4.8-10.8) K/uL RBC (3.80-5.20) Mil/uL Hgb (11.0-16.0) g/dL Hct (34.0-47.0) % MCV (81.0-99.0) fL MCH (27.0-31.0) pg MCHC (33.0-37.0) g/dL RDW (11.5-14.5) % Plt Count (130-400) K/uL MPV (7.2-11.7) fL Neut % (Auto) (50.0-75.0) % Lymph % (Auto) (20.0-40.0) % [place] % (Auto) (0.0-10.0) % Eos % (Auto) (0.0-4.0) % Baso % (Auto) (0.0-2.0) % Neut # (1.8-7.0) K/uL Lymph # (1.0-4.3) K/uL [place] # (0.0-0.8) K/uL Eos # (0.0-0.7) K/uL Baso # (0.0-0.2) K/uL Neutrophils % (Manual) (50-75) % Band Neutrophils % (0-2) % Lymphocytes % (Manual) (20-40) % Monocytes % (Manual) (0-10) % Platelet Estimate (NORMAL) Large Platelets Hypochromasia (manual) Poikilocytosis (manual Basophilic Stippling Anisocytosis (manual) Microcytosis (manual) Target Cells Tear Drop Cells Haptoglobin 53 (43-212) mg/dL PT (9.7-12.2) SECONDS INR APTT (21-34) SECONDS Fibrinogen (200-400) mg/dL Fibrin Degrad Products (NEGATIVE) Fibrin Degrad Prod, Qt (<10) ug/mL [id number] Inhibitor (68-163) % Activity [id number] Inhibit Titer (()) Puncture Site L rad pCO2 50 H (35-45) mm/Hg pO2 92 (80-100) mm/Hg HCO3 35.0 H (21-28) mmol/L ABG pH 7.49 H (7.35-7.45) ABG Total CO2 39.6 H (22-28) mmol/L ABG O2 Saturation 99.0 H (95-98) % ABG Base Excess 13.0 H (-2.0-3.0) mmol/L ABG Hemoglobin 10.9 L (11.7-17.4) g/dL ABG Carboxyhemoglobin 1.8 H (0.5-1.5) % POC ABG HHb (Measured) 1.0 (0.0-5.0) % ABG Methemoglobin 1.5 (0.0-3.0) % Braxton Test Pos A-a O2 Difference 345.0 mm/Hg Respiratory Index 3.8 Hgb O2 Saturation 95.7 (95.0-98.0) % Mechanical Rate 14 FiO2 70.0 % Tidal Volume 450 PEEP 5 Sodium (132-148) mmol/L Potassium (3.6-5.2) mmol/L Chloride (98-107) mmol/L Carbon Dioxide (22-30) mmol/L Anion Gap (10-20) BUN (7-17) mg/dL Creatinine (0.7-1.2) MG/DL Est GFR ( Amer) Est GFR (Non-Af Amer) POC Glucose (mg/dL) 329 H (65-110) mg/dL Random Glucose (65-105) mg/dL Calcium (8.6-10.4) mg/dl Phosphorus (2.5-4.5) mg/dL Magnesium (1.6-2.3) mg/dL Total Bilirubin (0.2-1.3) mg/dL AST (14-36) U/L ALT (9-52) U/L Alkaline Phosphatase (38-126) U/L Lactate Dehydrogenase (313-618) U/L Total Protein (6.3-8.3) g/dL Albumin (3.5-5.0) g/dL Globulin (2.2-3.9) gm/dL Albumin/Globulin Ratio (1.0-2.1) 07/26/16 07/25/16 Range/Units 06:52 07:54 WBC (4.8-10.8) K/uL RBC (3.80-5.20) Mil/uL Hgb (11.0-16.0) g/dL Hct (34.0-47.0) % MCV (81.0-99.0) fL MCH (27.0-31.0) pg MCHC (33.0-37.0) g/dL RDW (11.5-14.5) % Plt Count (130-400) K/uL MPV (7.2-11.7) fL Neut % (Auto) (50.0-75.0) % Lymph % (Auto) (20.0-40.0) % [place] % (Auto) (0.0-10.0) % Eos % (Auto) (0.0-4.0) % Baso % (Auto) (0.0-2.0) % Neut # (1.8-7.0) K/uL Lymph # (1.0-4.3) K/uL [place] # (0.0-0.8) K/uL Eos # (0.0-0.7) K/uL Baso # (0.0-0.2) K/uL Neutrophils % (Manual) (50-75) % Band Neutrophils % (0-2) % Lymphocytes % (Manual) (20-40) % Monocytes % (Manual) (0-10) % Platelet Estimate (NORMAL) Large Platelets Hypochromasia (manual) Poikilocytosis (manual Basophilic Stippling Anisocytosis (manual) Microcytosis (manual) Target Cells Tear Drop Cells Haptoglobin 91 (43-212) mg/dL PT (9.7-12.2) SECONDS INR APTT (21-34) SECONDS Fibrinogen (200-400) mg/dL Fibrin Degrad Products (NEGATIVE) Fibrin Degrad Prod, Qt (<10) ug/mL [id number] Inhibitor 131 (68-163) % Activity [id number] Inhibit Titer (()) Puncture Site pCO2 (35-45) mm/Hg pO2 (80-100) mm/Hg HCO3 (21-28) mmol/L ABG pH (7.35-7.45) ABG Total CO2 (22-28) mmol/L ABG O2 Saturation (95-98) % ABG Base Excess (-2.0-3.0) mmol/L ABG Hemoglobin (11.7-17.4) g/dL ABG Carboxyhemoglobin (0.5-1.5) % POC ABG HHb (Measured) (0.0-5.0) % ABG Methemoglobin (0.0-3.0) % Braxton Test A-a O2 Difference mm/Hg Respiratory Index Hgb O2 Saturation (95.0-98.0) % Mechanical Rate FiO2 % Tidal Volume PEEP Sodium (132-148) mmol/L Potassium (3.6-5.2) mmol/L Chloride (98-107) mmol/L Carbon Dioxide (22-30) mmol/L Anion Gap (10-20) BUN (7-17) mg/dL Creatinine (0.7-1.2) MG/DL Est GFR ( Amer) Est GFR (Non-Af Amer) POC Glucose (mg/dL) (65-110) mg/dL Random Glucose (65-105) mg/dL Calcium (8.6-10.4) mg/dl Phosphorus (2.5-4.5) mg/dL Magnesium (1.6-2.3) mg/dL Total Bilirubin (0.2-1.3) mg/dL AST (14-36) U/L ALT (9-52) U/L Alkaline Phosphatase (38-126) U/L Lactate Dehydrogenase (313-618) U/L Total Protein (6.3-8.3) g/dL Albumin (3.5-5.0) g/dL Globulin (2.2-3.9) gm/dL Albumin/Globulin Ratio (1.0-2.1) Laboratory Results - last 24 hr 07/25/16 07/26/16 07/27/16 07:54 06:52 04:54 WBC RBC Hgb Hct MCV MCH MCHC RDW Plt Count MPV Neut % (Auto) Lymph % (Auto) [place] % (Auto) Eos % (Auto) Baso % (Auto) Neut # Lymph # [place] # Eos # Baso # Neutrophils % (Manual) Band Neutrophils % Lymphocytes % (Manual) Monocytes % (Manual) Platelet Estimate Large Platelets Hypochromasia (manual) Poikilocytosis (manual Basophilic Stippling Anisocytosis (manual) Microcytosis (manual) Target Cells Tear Drop Cells Haptoglobin 91 53 PT INR APTT Fibrinogen Fibrin Degrad Products Fibrin Degrad Prod, Qt [id number] Inhibitor 131 [id number] Inhibit Titer Puncture Site pCO2 pO2 HCO3 ABG pH ABG Total CO2 ABG O2 Saturation ABG Base Excess ABG Hemoglobin ABG Carboxyhemoglobin POC ABG HHb (Measured) ABG Methemoglobin Braxton Test A-a O2 Difference Respiratory Index Hgb O2 Saturation Mechanical Rate FiO2 Tidal Volume PEEP Sodium Potassium Chloride Carbon Dioxide Anion Gap BUN Creatinine Est GFR ( Amer) Est GFR (Non-Af Amer) POC Glucose (mg/dL) Random Glucose Calcium Phosphorus Magnesium Total Bilirubin AST ALT Alkaline Phosphatase Lactate Dehydrogenase Total Protein Albumin Globulin Albumin/Globulin Ratio 07/29/16 07/29/16 07/29/16 00:22 05:07 05:15 WBC RBC Hgb Hct MCV MCH MCHC RDW Plt Count MPV Neut % (Auto) Lymph % (Auto) [place] % (Auto) Eos % (Auto) Baso % (Auto) Neut # Lymph # [place] # Eos # Baso # Neutrophils % (Manual) Band Neutrophils % Lymphocytes % (Manual) Monocytes % (Manual) Platelet Estimate Large Platelets Hypochromasia (manual) Poikilocytosis (manual Basophilic Stippling Anisocytosis (manual) Microcytosis (manual) Target Cells Tear Drop Cells Haptoglobin PT INR APTT Fibrinogen Fibrin Degrad Products Fibrin Degrad Prod, Qt [id number] Inhibitor [id number] Inhibit Titer Puncture Site L rad pCO2 50 H pO2 92 HCO3 35.0 H ABG pH 7.49 H ABG Total CO2 39.6 H ABG O2 Saturation 99.0 H ABG Base Excess 13.0 H ABG Hemoglobin 10.9 L ABG Carboxyhemoglobin 1.8 H POC ABG HHb (Measured) 1.0 ABG Methemoglobin 1.5 Braxton Test Pos A-a O2 Difference 345.0 Respiratory Index 3.8 Hgb O2 Saturation 95.7 Mechanical Rate 14 FiO2 70.0 Tidal Volume 450 PEEP 5 Sodium Potassium Chloride Carbon Dioxide Anion Gap BUN Creatinine Est GFR ( Amer) Est GFR (Non-Af Amer) POC Glucose (mg/dL) 329 H 389 H Random Glucose Calcium Phosphorus Magnesium Total Bilirubin AST ALT Alkaline Phosphatase Lactate Dehydrogenase Total Protein Albumin Globulin Albumin/Globulin Ratio 07/29/16 07/29/16 07/29/16 06:08 06:09 06:09 WBC 10.7 RBC 3.40 L Hgb 11.0 Hct 34.1 MCV 100.4 H MCH 32.2 H MCHC 32.1 L RDW 18.2 H Plt Count 106 L MPV 11.8 H Neut % (Auto) 88.6 H Lymph % (Auto) 2.9 L [place] % (Auto) 8.4 Eos % (Auto) 0.0 Baso % (Auto) 0.1 Neut # 9.4 H Lymph # 0.3 L [place] # 0.9 H Eos # 0.0 Baso # 0.0 Neutrophils % (Manual) 85 H Band Neutrophils % 1 Lymphocytes % (Manual) 6 L Monocytes % (Manual) 8 Platelet Estimate Slightly decreased L Large Platelets Present Hypochromasia (manual) Slight Poikilocytosis (manual Slight Basophilic Stippling Slight Anisocytosis (manual) Slight Microcytosis (manual) Slight Target Cells Slight Tear Drop Cells Slight Haptoglobin PT 11.4 INR 1.0 APTT 28 Fibrinogen 236 Fibrin Degrad Products Negative D Fibrin Degrad Prod, Qt <10 [id number] Inhibitor [id number] Inhibit Titer Puncture Site pCO2 pO2 HCO3 ABG pH ABG Total CO2 ABG O2 Saturation ABG Base Excess ABG Hemoglobin ABG Carboxyhemoglobin POC ABG HHb (Measured) ABG Methemoglobin Braxton Test A-a O2 Difference Respiratory Index Hgb O2 Saturation Mechanical Rate FiO2 Tidal Volume PEEP Sodium 139 Potassium 3.8 Chloride 93 L Carbon Dioxide 32 H Anion Gap 18 BUN 69 H Creatinine 3.4 H Est GFR ( Amer) 16 Est GFR (Non-Af Amer) 13 POC Glucose (mg/dL) Random Glucose 307 H Calcium 8.1 L Phosphorus 6.7 H Magnesium 2.1 Total Bilirubin 0.9 AST 38 H ALT 39 Alkaline Phosphatase 146 H D Lactate Dehydrogenase 789 H Total Protein 6.1 L Albumin 3.3 L Globulin 2.7 Albumin/Globulin Ratio 1.2 07/29/16 07/29/16 07:30 11:26 WBC RBC Hgb Hct MCV MCH MCHC RDW Plt Count MPV Neut % (Auto) Lymph % (Auto) [place] % (Auto) Eos % (Auto) Baso % (Auto) Neut # Lymph # [place] # Eos # Baso # Neutrophils % (Manual) Band Neutrophils % Lymphocytes % (Manual) Monocytes % (Manual) Platelet Estimate Large Platelets Hypochromasia (manual) Poikilocytosis (manual Basophilic Stippling Anisocytosis (manual) Microcytosis (manual) Target Cells Tear Drop Cells Haptoglobin PT INR APTT Fibrinogen Fibrin Degrad Products Fibrin Degrad Prod, Qt [id number] Inhibitor [id number] Inhibit Titer Puncture Site pCO2 pO2 HCO3 ABG pH ABG Total CO2 ABG O2 Saturation ABG Base Excess ABG Hemoglobin ABG Carboxyhemoglobin POC ABG HHb (Measured) ABG Methemoglobin Braxton Test A-a O2 Difference Respiratory Index Hgb O2 Saturation Mechanical Rate FiO2 Tidal Volume PEEP Sodium Potassium Chloride Carbon Dioxide Anion Gap BUN Creatinine Est GFR ( Amer) Est GFR (Non-Af Amer) POC Glucose (mg/dL) 200 H Random Glucose Calcium Phosphorus Magnesium Total Bilirubin AST ALT Alkaline Phosphatase Lactate Dehydrogenase 815 H Total Protein Albumin Globulin Albumin/Globulin Ratio Assessment/Plan (1) CHF (congestive heart failure) Current Visit: Yes Status: Acute Comment: Overnight patient got intubated for pulmonary edema and transferred to ICU. Elevated troponin could be secondary to renal failure Echocardiogram showed ejection fraction of 10% EPS cardiology evaluation for LifeVest (2) Thrombocytopenia Current Visit: Yes Status: Acute Comment: r/o Secondary to TTP Transfuse fresh frozen plasma every 8 hours and once patient stabilizes restart plasmapheresis Attending/Attestation - Attestation I have personally seen and examined this patient.: Yes I have fully participated in the care of the patient.: Yes I have reviewed all pertinent clinical information: Yes Notes (Text): 07/29/16 17:20 Patient seen and examined in the intensive care unit. Case discussed with STAFF IN THE MORNING ROUNDS. Remains intubated on ventilatory support requiring high FiO2 On CPAP since morning tolerating well As per hematology no more plasmapheresis Continue hemodialysis Patient with low ejection fraction,
[2016-07-29] MEDS ORDERED: (Novolog) Insulin Aspart, Recombinant 100 u/ml 10 ml vial SC SCH (07:30)
[2016-07-29 08:08] LABS: BANDS 1 % (0-2); MONOCYTE 8 % (0-10); PLATELET ESTIMATE SLIGHTLY DECREASED (NORMAL); TOTAL CELLS COUNTED 100
[2016-07-29 08:09] LABS: ANISOCYTOSIS SLIGHT; HYPOCHROMIC SLIGHT; LYMPHOCYTE 6 % (20-40); NEUTROPHIL 85 % (50-75); POIKILOCYTOSIS SLIGHT
[2016-07-29 08:11] LABS: LARGE PLATELETS PRESENT; MICROCYTOSIS SLIGHT; TARGET CELLS SLIGHT
[2016-07-29 08:12] LABS: TEARDROP CELLS SLIGHT
--- NOTE | 2016-07-29 08:19 | RAD ---
Chest x-ray single frontal view History: Intubated. Comparison: 07/28/2016 Findings: Lines and tubes in stable position. Patchy airspace opacities in the mid to lower lung zones bilaterally with associated small to moderate bilateral pleural effusions. Venous congestion. Mild cardiomegaly. Calcification at the aortic knob. Bilateral paratracheal airspace opacities is suggestive for prominent vasculature. Calcification at the aortic knob. Degenerative changes in the spine and shoulders. Impression: Lines and tubes in stable position. Patchy airspace opacities in the mid to lower lung zones bilaterally with associated small to moderate bilateral pleural effusions. Venous congestion. Mild cardiomegaly. Calcification at the aortic knob.
--- NOTE | 2016-07-29 09:17 | CP.PCM.PN ---
Subjective - Date & Time of Evaluation Date of Evaluation: 07/29/16 Time of Evaluation: :17 - Subjective Subjective: pt seen and , follow up consult is dictated #[id number] Objective - Vital Signs/Intake and Output Vital Signs (last 24 hours): Temp Pulse Resp BP Pulse Ox 98.8 F 59 L 14 158/84 H 96 07/29/16 04:00 07/29/16 07:00 07/29/16 07:00 07/29/16 06:55 07/29/16 07:00 Intake and Output: 07/29/16 07/29/16 06:59 18:59 Intake Total 872.0 Output Total 675 Balance 197.0 - Medications Medications: Current Medications Albuterol/Ipratropium (Duoneb 3 Mg/0.5 Mg (3 Ml) Ud) 3 ml INH RQ6 [facility] Last Admin: 07/29/16 08:25 Dose: 3 ml Carvedilol (Coreg) 3.125 mg PO BID [facility] Last Admin: 07/28/16 18:09 Dose: 3.125 mg Dexamethasone (Decadron Inj) 4 mg IV Q12 [facility] Last Admin: 07/28/16 21:54 Dose: 4 mg Famotidine (Pepcid) 20 mg PO BID [facility] Last Admin: 07/28/16 17:26 Dose: 20 mg Furosemide (Lasix) 60 mg IVP Q12 [facility] Last Admin: 07/28/16 21:55 Dose: 60 mg Hydralazine HCl (Apresoline) 10 mg PO Q8 [facility] Last Admin: 07/29/16 05:33 Dose: 10 mg Piperacillin Sod/Tazobactam Sod (Zosyn 2.25 Gm Iv Premix) 2.25 gm in 50 mls @ 100 mls/hr IVPB Q6H [facility] Last Admin: 07/29/16 06:59 Dose: 100 mls/hr Metronidazole (Flagyl) 500 mg in 100 mls @ 100 mls/hr IVPB Q8 [facility] Last Admin: 07/29/16 05:33 Dose: 100 mls/hr Dexmedetomidine HCl 200 mcg/ (Sodium Chloride) 50 mls @ 3.47 mls/hr IV TITR PRN ; Protocol; 0.2 MCG/KG/HR PRN Reason: Sedation Last Admin: 07/29/16 05:37 Dose: 0.2 mcg/kg/hr, 3.47 mls/hr Insulin Aspart (Novolog) 0 unit SC ACHS [facility]I PRN Reason: Protocol Midazolam HCl (Versed Inj) 2 mg IVP Q3 PRN Last Admin: 07/28/16 17:23 Dose: 2 mg Nifedipine (Procardia) 10 mg PO BID [facility] Last Admin: 07/28/16 18:09 Dose: 10 mg - Labs Labs: 07/29/16 06:09 07/29/16 06:08 PT 11.4 SECONDS (9.7-12.2) 07/29/16 06:09 INR 1.0 07/29/16 06:09 APTT 28 SECONDS (21-34) 07/29/16 06:09
[2016-07-29] MEDS: Dexamethasone 4 mg/1 ml IV SCH ×2 (09:47→23:08)
--- NOTE | 2016-07-29 11:17 | PN ---
DATE: 07/29/2016 The patient is located in ICU bed 6. REQUESTED BY: Dr. Anthony Mclaughlin. REASON FOR RENAL CONSULTATION: Acute renal failure, TTP, for continuation of the hemodialysis and po ssible plasma for continuation of the plasmapheresis. HISTORY OF PRESENT ILLNESS: This patient is an old an 80-year-old elderly female from [facility] with a history of hypertension and arthritis who came [place] after 5 months' vacation in [facility] 2 weeks prior to the admission with chief complaints of nausea, vomiting, diarr hea, abdominal pain for 3-4 days prior to the admission, and also low platelets, increased BUN and cr eatinine, and altered mental status requiring initiation of the plasmapheresis after no significant i mprovement with the platelets. The patient started plasmapheresis last week night, and now platelets increased to 106 this morning. The patient also got intubated during her hospitalization f or altered mental status and respiratory failure. The patient is on ventilator and also with increas ed BUN and creatinine, requiring initiation of the hemodialysis. Yesterday had ultrafiltration about 2 liters. The patient is on ventilator, arousable, moving all extremities, not in distress. PHYSICAL EXAMINATION: VITAL SIGNS: This morning as follows: Blood pressure 158/84, pulse 59, respiration 14 and temperatu re 98.8 and saturation about 96%, FIO2 70%. Height 5 feet 4 inches and weight is 153 pounds. Vent s etting on CPAP with pressure support of 15, FiO2 70%, PEEP of 5. GENERAL: The patient is an 80-year-old elderly female on ventilator, not in acute distress. HEENT: Pupils normal, reactive to light and accommodation. Conjunctivae are pink. Sclerae anicteri c. Intubated. NECK: No thyroid enlargement. LUNGS: Symmetric on both sides. Bilateral breath sounds present. Occasional basal crackles present . CARDIOVASCULAR: [place] in the fifth intercostal space midclavicular line. S1 and S2 audible. No murm ur, no gallop. ABDOMEN: Normal in appearance, soft, tympanic. No guarding, no rigidity. No hepatosplenomegaly. CENTRAL NERVOUS SYSTEM: The patient is on ventilator, arousable, moving all extremities. Sensory an d motor systems are grossly within normal limits. EXTREMITIES: No cyanosis, no clubbing, no edema. INTAKE AND OUTPUT: Intake is about, yesterday, 1310; and output is 2480. CURRENT MEDICATIONS: Include as follows: Hydralazine 10 mg p.o. q. 8 hours, Coreg 3.125 mg p.o. b.i .d. and Decadron 4 mg IV q. 12 hours, Precedex IV and DuoNeb inhaler, Flagyl 500 q. 8 hours and Lasix 60 mg IV q. 12, NovoLog and Pepcid 20 mg p.o. b.i.d. and Procardia 10 mg p.o. b.i.d., and Versed and Zosyn 2.25 grams IV q. 6 hours. LABORATORY DATA: Include as follows, as of 07/29/2016: WBC 10.7, hemoglobin 11, hematocrit is 34.1, platelets are 106. PT is 11.4, INR is 1.0, PTT 28, and fibrinogen is 236 and FDP is negative less t [place] 10. ABG: pH 7.49 and pCO2 50, pO2 92, bicarb is 25, and saturation is 99%. Sodium is 139, pota ssium 3.8, chloride 93, CO2 32, BUN 69, creatinine 3.4 and glucose 307, calcium 8.1 and phosphorus 6. 7, magnesium 2.1. Total bili 0.9, AST 38, ALT 39, alkaline phos is 146, LDH 815, total protein 6.1, albumin is 3.3. Hepatitis B surface antibody is positive and hepatitis B surface antigen is negative , and core antibody is negative. Hep C antibody is negative. Blood peripheral smear is negative. Chest x-ray as of 07/29/2016: Impression: Lines, tubes in stable position; patchy air space opaciti es in the mid to lower lung zones bilaterally with associated small to moderate bilateral pleural eff usion, venous congestion, mild cardiomegaly, calcification in the aortic valve. 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 Th e patient received about 4 treatments of plasmapheresis so far with platelets increased from the base line of 58,000 to 106,000, doing good today, with increased BUN and creatinine and status post dialys is yesterday ____. 1. Nonoliguric acute renal failure most likely secondary to acute tubular necrosis secondary to mult ifactorial sepsis, low normal left ventricle function and cannot rule out thrombotic microangiopathy secondary to thrombotic thrombocytopenic purpura. Will continue hemodialysis 3 times a week - Thursday , Thursday, Thursday - until renal function improves. 2. 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 Further plasmapheresis will depend upon the hem atologist's recommendation from today. Awaiting for the preparer making department's recommendations. 3. Cardiomyopathy. 4. Respiratory failure. 5. Bilateral pneumonia with pleural effusion. Continue IV antibiotics. Consider to decrease the Zo syn to 2.25 grams q. 8 hours to adjust the renal dose. Continue Lasix. Will follow with you. Thank you for allowing me to participate in your patient's care. Horacio Graham MD cc: [id number] TT: 07/29/2016 11:16:26 Confirmation # [id number] Dictation # [id number] pati
--- NOTE | 2016-07-29 11:36 | CP.PCM.PN ---
Subjective - Date & Time of Evaluation Date of Evaluation: 07/29/16 Time of Evaluation: 08:00 - Subjective Subjective: events noted rx in progress stool c/s not sent as ordered Objective - Vital Signs/Intake and Output Vital Signs (last 24 hours): Temp Pulse Resp BP Pulse Ox 98.6 F 56 L 14 157/75 H 95 07/29/16 08:00 07/29/16 11:00 07/29/16 11:00 07/29/16 10:55 07/29/16 11:00 Intake and Output: 07/29/16 07/29/16 06:59 18:59 Intake Total 872.0 86.9 Output Total 675 105 Balance 197.0 -18.1 - Medications Medications: Current Medications Albuterol/Ipratropium (Duoneb 3 Mg/0.5 Mg (3 Ml) Ud) 3 ml INH RQ6 [facility] Last Admin: 07/29/16 08:25 Dose: 3 ml Carvedilol (Coreg) 3.125 mg PO BID [facility]ESS[facility] Dexamethasone (Decadron Inj) 4 mg IV Q12 [facility] Last Admin: 07/29/16 09:47 Dose: 4 mg Famotidine (Pepcid) 20 mg PO BID [facility] Last Admin: 07/29/16 09:48 Dose: 20 mg Furosemide (Lasix) 60 mg IVP Q12 [facility] Last Admin: 07/29/16 09:46 Dose: 60 mg Hydralazine HCl (Apresoline) 10 mg PO Q8 [facility] Last Admin: 07/29/16 05:33 Dose: 10 mg Piperacillin Sod/Tazobactam Sod (Zosyn 2.25 Gm Iv Premix) 2.25 gm in 50 mls @ 100 mls/hr IVPB Q6H [facility] Last Admin: 07/29/16 06:59 Dose: 100 mls/hr Metronidazole (Flagyl) 500 mg in 100 mls @ 100 mls/hr IVPB Q8 [facility] Last Admin: 07/29/16 05:33 Dose: 100 mls/hr Dexmedetomidine HCl 200 mcg/ (Sodium Chloride) 50 mls @ 3.47 mls/hr IV TITR PRN ; Protocol; 0.2 MCG/KG/HR PRN Reason: Sedation Last Admin: 07/29/16 05:37 Dose: 0.2 mcg/kg/hr, 3.47 mls/hr Insulin Aspart (Novolog) 0 unit SC Q6H [facility] PRN Reason: Protocol Midazolam HCl (Versed Inj) 2 mg IVP Q3 PRN Last Admin: 07/28/16 17:23 Dose: 2 mg Nifedipine (Procardia) 10 mg PO BID [facility] Last Admin: 07/29/16 09:47 Dose: 10 mg - Labs Labs: 07/29/16 06:09 07/29/16 06:08 PT 11.4 SECONDS (9.7-12.2) 07/29/16 06:09 INR 1.0 07/29/16 06:09 APTT 28 SECONDS (21-34) 07/29/16 06:09 - Constitutional Appears: Non-toxic, Cachectic, Chronically Ill - Head Exam Head Exam: NORMOCEPHALIC - Eye Exam Eye Exam: PERRL. absent: Scleral icterus - ENT Exam ENT Exam: Mucous Membranes Dry, Normal Oropharynx - Respiratory Exam Respiratory Exam: Decreased Breath Sounds, Rhonchi - Cardiovascular Exam Cardiovascular Exam: REGULAR RHYTHM, +S1, +S2 - GI/Abdominal Exam GI & Abdominal Exam: Distended, Soft. 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
--- NOTE | 2016-07-29 12:02 | CP.PCM.PN ---
<Dmitry Kebede - Last Filed: 07/29/16 16:02> Subjective - Date & Time of Evaluation Date of Evaluation: 07/29/16 Time of Evaluation: 11:59 - Subjective Subjective: Progress Note for Dr. Jules Pt seen and examined at bedside. Pt remains intubated at this time. No acute overnight events. Pt will undergo weaning trial and try to be extubated later today. Objective - Vital Signs/Intake and Output Vital Signs (last 24 hours): Temp Pulse Resp BP Pulse Ox 98.6 F 56 L 14 157/75 H 95 07/29/16 08:00 07/29/16 11:00 07/29/16 11:00 07/29/16 10:55 07/29/16 11:00 Intake and Output: 07/29/16 07/29/16 06:59 18:59 Intake Total 872.0 86.9 Output Total 675 105 Balance 197.0 -18.1 - Medications Medications: Current Medications Albuterol/Ipratropium (Duoneb 3 Mg/0.5 Mg (3 Ml) Ud) 3 ml INH RQ6 JESSI Last Admin: 07/29/16 08:25 Dose: 3 ml Carvedilol (Coreg) 3.125 mg PO BID JESSI Dexamethasone (Decadron Inj) 4 mg IV Q12 JESSI Last Admin: 07/29/16 09:47 Dose: 4 mg Famotidine (Pepcid) 20 mg PO BID JESSI Last Admin: 07/29/16 09:48 Dose: 20 mg Furosemide (Lasix) 60 mg IVP Q12 JESSI Last Admin: 07/29/16 09:46 Dose: 60 mg Hydralazine HCl (Apresoline) 10 mg PO Q8 JESSI Last Admin: 07/29/16 05:33 Dose: 10 mg Piperacillin Sod/Tazobactam Sod (Zosyn 2.25 Gm Iv Premix) 2.25 gm in 50 mls @ 100 mls/hr IVPB Q6H JESSI Last Admin: 07/29/16 06:59 Dose: 100 mls/hr Metronidazole (Flagyl) 500 mg in 100 mls @ 100 mls/hr IVPB Q8 JESSI Last Admin: 07/29/16 05:33 Dose: 100 mls/hr Dexmedetomidine HCl 200 mcg/ (Sodium Chloride) 50 mls @ 3.47 mls/hr IV TITR PRN ; Protocol; 0.2 MCG/KG/HR PRN Reason: Sedation Last Admin: 07/29/16 05:37 Dose: 0.2 mcg/kg/hr, 3.47 mls/hr Insulin Aspart (Novolog) 0 unit SC Q6H JESSI PRN Reason: Protocol Last Admin: 07/29/16 11:50 Dose: 4 unit Midazolam HCl (Versed Inj) 2 mg IVP Q3 PRN Last Admin: 07/28/16 17:23 Dose: 2 mg Nifedipine (Procardia) 10 mg PO BID JESSI Last Admin: 07/29/16 09:47 Dose: 10 mg - Labs Labs: 07/29/16 06:09 07/29/16 06:08 PT 11.4 SECONDS (9.7-12.2) 07/29/16 06:09 INR 1.0 07/29/16 06:09 APTT 28 SECONDS (21-34) 07/29/16 06:09 - Constitutional Appears: Toxic - Head Exam Head Exam: ATRAUMATIC, NORMAL INSPECTION, NORMOCEPHALIC - Respiratory Exam Respiratory Exam: Decreased Breath Sounds. absent: Rhonchi - Cardiovascular Exam Cardiovascular Exam: RRR, +S1, +S2 - GI/Abdominal Exam GI & Abdominal Exam: Soft, Normal Bowel Sounds. absent: Tenderness - Extremities Exam Extremities Exam: Pedal Edema (Trace b/l) - Skin Skin Exam: Intact, Normal Color, Warm Assessment and Plan (1) CHF (congestive heart failure) Assessment & Plan: Pt will be fitted for a life vest Continue current medical management Status: Acute <Geo Jules A - Last Filed: 07/31/16 15:24> Objective - Vital Signs/Intake and Output Vital Signs (last 24 hours): Temp Pulse Resp BP Pulse Ox 98.3 F 74 15 135/70 96 07/31/16 13:15 07/31/16 13:00 07/31/16 13:00 07/31/16 12:57 07/31/16 13:00 Intake and Output: 07/31/16 07/31/16 06:59 18:59 Intake Total 687.5 287.5 Output Total 240 40 Balance 447.5 247.5 - Medications Medications: Current Medications Albuterol/Ipratropium (Duoneb 3 Mg/0.5 Mg (3 Ml) Ud) 3 ml INH RQ6 [facility] Last Admin: 07/31/16 14:46 Dose: 3 ml Carvedilol (Coreg) 3.125 mg PO BID [facility] Last Admin: 07/31/16 09:51 Dose: Not Given Dexamethasone (Decadron Inj) 4 mg IV Q12 [facility] Last Admin: 07/31/16 09:49 Dose: 4 mg Famotidine (Pepcid) 20 mg PO DAILY [facility] Last Admin: 07/31/16 09:49 Dose: 20 mg Furosemide (Lasix) 60 mg IVP Q12 [facility] Last Admin: 07/29/16 23:09 Dose: 60 mg Hydralazine HCl (Apresoline) 10 mg PO Q8 [facility] Last Admin: 07/31/16 13:34 Dose: 10 mg Piperacillin Sod/Tazobactam Sod (Zosyn 2.25 Gm Iv Premix) 2.25 gm in 50 mls @ 100 mls/hr IVPB Q6H [facility] Last Admin: 07/31/16 13:30 Dose: 100 mls/hr Metronidazole (Flagyl) 500 mg in 100 mls @ 100 mls/hr IVPB Q8 [facility] Last Admin: 07/31/16 14:13 Dose: 100 mls/hr Dexmedetomidine HCl 200 mcg/ (Sodium Chloride) 50 mls @ 3.47 mls/hr IV TITR PRN ; Protocol; 0.2 MCG/KG/HR PRN Reason: Sedation Last Admin: 07/30/16 09:05 Dose: 0.08 mcg/kg/hr, 1.5 mls/hr Insulin Aspart (Novolog) 0 unit SC Q6H JESSI PRN Reason: Protocol Last Admin: 07/31/16 12:19 Dose: Not Given Insulin Glargine (Lantus) 10 unit SC HS [facility] Last Admin: 07/30/16 21:32 Dose: 10 units Midazolam HCl (Versed Inj) 2 mg IVP Q3 PRN Last Admin: 07/28/16 17:23 Dose: 2 mg Nifedipine (Procardia) 10 mg PO BID [facility] Last Admin: 07/31/16 09:52 Dose: Not Given - Labs Labs: 07/31/16 06:27 07/31/16 06:27 PT 11.4 SECONDS (9.7-12.2) 07/29/16 06:09 INR 1.0 07/29/16 06:09 APTT 28 SECONDS (21-34) 07/29/16 06:09 Attending/Attestation - Attestation I have personally seen and examined this patient.: Yes I have fully participated in the care of the patient.: Yes I have reviewed all pertinent clinical information, including history, physical exam and plan: Yes Notes (Text): 07/31/16 15:24 Pt intubated limit fluids follow christian
--- NOTE | 2016-07-29 19:14 | CP.PCM.PN ---
Subjective - Date & Time of Evaluation Date of Evaluation: 07/29/16 Time of Evaluation: 19:11 - Subjective Subjective: Events noted, patient clinically unchanged, platelets remain stable, even though LDH has not normalized. No petichiae or purpuric lesions noted. Patient opening her eyes, following basic commands. family by bedside. Patient going through weaning protocols. Plan- Agree with renal, regarding tapering or discontinuing plasmapheresis and observing counts. Will also reevaluate peripheral smear, even though the progressive renal disease might alter the morphology of RBCs. Repeat labs in AM. Discussed above with family, they remain optimistic regarding patient's prognosis Objective - Vital Signs/Intake and Output Vital Signs (last 24 hours): Temp Pulse Resp BP Pulse Ox 99.1 F 69 18 162/79 H 97 07/29/16 16:00 07/29/16 19:00 07/29/16 19:00 07/29/16 18:55 07/29/16 19:00 Intake and Output: 07/29/16 07/30/16 18:59 06:59 Intake Total 577.4 41.5 Output Total 810 40 Balance -232.6 1.5 - Medications Medications: Current Medications Albuterol/Ipratropium (Duoneb 3 Mg/0.5 Mg (3 Ml) Ud) 3 ml INH RQ6 JESSI Last Admin: 07/29/16 13:22 Dose: 3 ml Carvedilol (Coreg) 3.125 mg PO BID JESSI Last Admin: 07/29/16 17:48 Dose: 3.125 mg Dexamethasone (Decadron Inj) 4 mg IV Q12 JESSI Last Admin: 07/29/16 09:47 Dose: 4 mg Famotidine (Pepcid) 20 mg PO DAILY [facility] Furosemide (Lasix) 60 mg IVP Q12 JESSI Last Admin: 07/29/16 09:46 Dose: 60 mg Hydralazine HCl (Apresoline) 10 mg PO Q8 JESSI Last Admin: 07/29/16 13:39 Dose: 10 mg Piperacillin Sod/Tazobactam Sod (Zosyn 2.25 Gm Iv Premix) 2.25 gm in 50 mls @ 100 mls/hr IVPB Q6H JESSI Last Admin: 07/29/16 18:11 Dose: 100 mls/hr Metronidazole (Flagyl) 500 mg in 100 mls @ 100 mls/hr IVPB Q8 JESSI Last Admin: 07/29/16 13:39 Dose: 100 mls/hr Dexmedetomidine HCl 200 mcg/ (Sodium Chloride) 50 mls @ 3.47 mls/hr IV TITR PRN ; Protocol; 0.2 MCG/KG/HR PRN Reason: Sedation Last Admin: 07/29/16 05:37 Dose: 0.2 mcg/kg/hr, 3.47 mls/hr Insulin Aspart (Novolog) 0 unit SC Q6H JESSI PRN Reason: Protocol Last Admin: 07/29/16 18:12 Dose: 4 unit Insulin Glargine (Lantus) 10 unit SC HS JESSI Midazolam HCl (Versed Inj) 2 mg IVP Q3 PRN Last Admin: 07/28/16 17:23 Dose: 2 mg Nifedipine (Procardia) 10 mg PO BID [facility] Last Admin: 07/29/16 17:49 Dose: 10 mg - Labs Labs: 07/29/16 06:09 07/29/16 06:08 PT 11.4 SECONDS (9.7-12.2) 07/29/16 06:09 INR 1.0 07/29/16 06:09 APTT 28 SECONDS (21-34) 07/29/16 06:09
[2016-07-29] MEDS: (Lantus) Insulin Glargine, Recombinant SC SCH (23:12)
[2016-07-30] MEDS: (Novolog) Insulin Aspart, Recombinant 100 u/ml 10 ml vial SC SCH ×4 (00:52→18:23)
[2016-07-30] MEDS: Albuterol-Ipratrop 3 mg / 0.5 (3 ml) UD INH SCH ×4 (01:08→19:38)
[2016-07-30] MEDS: Piperacill/Tazo 2.25gm in Dex 2.25 GM/50 ML BAG IVPB SCH ×4 (01:59→18:24)
[2016-07-30 05:49] LABS: ABG ALLEN TEST POS; ARTERIAL BLOOD GAS HCO3 33.3 mmol/L (21-28); ARTERIAL BLOOD GAS HEMOGLOBIN 10.9 g/dL (11.7-17.4); ARTERIAL BLOOD GAS O2 SAT 99.2 % (95-98); ARTERIAL BLOOD GAS PCO2 48 mm/Hg (35-45); ARTERIAL BLOOD GAS PH 7.48 (7.35-7.45); ARTERIAL BLOOD GAS PO2 92 mm/Hg (80-100); ARTERIAL BLOOD GAS TCO2 37.2 mmol/L (22-28)
[2016-07-30] MEDS: metroNIDAZOLE IV 500 mg/100 ml 500 MG/100 ML BAG IVPB SCH ×3 (05:57→21:33)
--- NOTE | 2016-07-30 06:15 | CP.CCUPN ---
<Daniel Contreras - Last Filed: 07/30/16 10:56> CCU Subjective - Physician Review Subjective (Free Text): 07/30/16 06:14 PGY-[address] Taveras Pt seen and examined at bedside. Nursing reports no acute events overnight. She is currently receiving dialysis at bedside. Patient intubated on vent- (60%, 15, 5, 450). Pt bradycardic this AM. ROS unobtainable at this time. Critical Care Time Spent (in minutes): 45 CCU Objective - Vital Signs / Intake & Output Vital Signs (Last 4 hours): Vital Signs Pulse Resp BP Pulse Ox 07/30/16 05:00 68 14 97 07/30/16 04:55 68 14 165/87 H 97 07/30/16 04:00 70 14 97 07/30/16 03:55 73 15 167/91 H 97 07/30/16 03:00 70 14 96 07/30/16 02:55 70 14 169/86 H 96 Intake and Output (Last 8hrs): Intake & Output 07/29/16 07/29/16 07/30/16 14:59 22:59 06:59 Intake Total 361.4 382.0 490.5 Output Total 410 740 700 Balance -48.6 -358.0 -209.5 Intake: Intake, IV Amount 161.4 62.0 210.5 Right Medial Port 150 50 200 Internal Jugular Right Proximal Port 11.4 12.0 10.5 Internal Jugular Tube Feeding 200 320 280 Output: Urine 410 740 700 Urethral (Sharp) 410 740 700 Other: # Bowel Movements 0 1 - Physical Exam Head: Positive for: Atraumatic, Normocephalic Pupils: Positive for: PERRL Conjunctiva: Positive for: Normal. Negative for: Injected, Icteric Mouth: Positive for: Moist Mucous Membranes Neck: Negative for: JVD Respiratory/Chest: Positive for: Good Air Exchange, Rhonchi. Negative for: Accessory Muscle Use, Wheezes, Rales Cardiovascular: Positive for: Regular Rate and Rhythm, Normal S1, S2. Negative for: Murmurs Abdomen: Positive for: Normal Bowel Sounds. Negative for: Tenderness, Distention Upper Extremity: Positive for: Normal Inspection. Negative for: Cyanosis, Edema Lower Extremity: Positive for: Normal Inspection. Negative for: Edema Neurological: Negative for: Speech Normal Skin: Positive for: Warm, Dry, Rashes (resolving) Psychiatric: Positive for: Alert. Negative for: Oriented x 3 - Medications Active Medications: Active Medications Generic Name Dose Route Start Last Admin Trade Name Freq PRN Reason Stop Dose Admin Albuterol/Ipratropium 3 ml 07/23/16 08:00 07/30/16 01:08 Duoneb 3 Mg/0.5 Mg (3 Ml) Ud INH 3 ml RQ6 JESSI Administration Carvedilol 3.125 mg 07/29/16 10:12 07/29/16 17:48 Coreg PO 3.125 mg BID JESSI Administration Dexamethasone 4 mg 07/28/16 10:00 07/29/16 23:08 Decadron Inj IV 4 mg Q12 JESSI Administration Famotidine 20 mg 07/30/16 10:00 Pepcid PO DAILY JESSI Furosemide 60 mg 07/28/16 08:29 07/29/16 23:09 Lasix IVP 60 mg Q12 JESSI Administration Hydralazine HCl 10 mg 07/28/16 08:30 07/30/16 05:57 Apresoline PO 10 mg Q8 JESSI Administration Piperacillin Sod/Tazobactam Sod 2.25 gm in 50 mls @ 100 mls/hr 07/23/16 13:00 07/30/16 05:59 Zosyn 2.25 Gm Iv Premix IVPB 100 mls/hr Q6H JESSI Administration Metronidazole 500 mg in 100 mls @ 100 mls/hr 07/24/16 22:00 07/30/16 05:57 Flagyl IVPB 100 mls/hr Q8 JESSI Administration Dexmedetomidine HCl 200 mcg/ 50 mls @ 3.47 mls/hr 07/28/16 17:15 07/29/16 05: 37 Sodium Chloride IV 0.2 mcg/kg/hr TITR PRN 3.47 mls/hr Sedation Administration Protocol 0.2 MCG/KG/HR Insulin Aspart 0 unit 07/29/16 12:00 07/30/16 06:05 Novolog SC 4 unit Q6H JESSI Administration Protocol Insulin Glargine 10 unit 07/29/16 22:00 07/29/16 23:12 Lantus SC 10 units HS JESSI Administration Midazolam HCl 2 mg 07/28/16 10:00 07/28/16 17:23 Versed Inj IVP 2 mg Q3 PRN Administration Nifedipine 10 mg 07/25/16 12:00 07/29/16 17:49 Procardia PO 10 mg BID JESSI Administration - Patient Studies Lab Studies: Lab Studies 07/30/16 07/30/16 07/30/16 Range/Units 06:05 05:08 00:00 WBC (4.8-10.8) K/uL RBC (3.80-5.20) Mil/uL Hgb (11.0-16.0) g/dL Hct (34.0-47.0) % MCV (81.0-99.0) fL MCH (27.0-31.0) pg MCHC (33.0-37.0) g/dL RDW (11.5-14.5) % Plt Count (130-400) K/uL MPV (7.2-11.7) fL Neut % (Auto) (50.0-75.0) % Lymph % (Auto) (20.0-40.0) % Tift % (Auto) (0.0-10.0) % Eos % (Auto) (0.0-4.0) % Baso % (Auto) (0.0-2.0) % Neut # (1.8-7.0) K/uL Lymph # (1.0-4.3) K/uL Tift # (0.0-0.8) K/uL Eos # (0.0-0.7) K/uL Baso # (0.0-0.2) K/uL Neutrophils % (Manual) (50-75) % Band Neutrophils % (0-2) % Lymphocytes % (Manual) (20-40) % Monocytes % (Manual) (0-10) % Platelet Estimate (NORMAL) Large Platelets Hypochromasia (manual) Poikilocytosis (manual Basophilic Stippling Anisocytosis (manual) Microcytosis (manual) Target Cells Tear Drop Cells Haptoglobin (43-212) mg/dL PT (9.7-12.2) SECONDS INR APTT (21-34) SECONDS Fibrinogen (200-400) mg/dL Fibrin Degrad Products (NEGATIVE) Fibrin Degrad Prod, Qt (<10) ug/mL [id number] Inhibitor (68-163) % Activity [id number] Inhibit Titer (()) Puncture Site L rad pCO2 48 H (35-45) mm/Hg pO2 92 (80-100) mm/Hg HCO3 33.3 H (21-28) mmol/L ABG pH 7.48 H (7.35-7.45) ABG Total CO2 37.2 H (22-28) mmol/L ABG O2 Saturation 99.2 H (95-98) % ABG Base Excess 10.8 H (-2.0-3.0) mmol/L ABG Hemoglobin 10.9 L (11.7-17.4) g/dL ABG Carboxyhemoglobin 2.1 H (0.5-1.5) % POC ABG HHb (Measured) 0.8 (0.0-5.0) % ABG Methemoglobin 1.1 (0.0-3.0) % Braxton Test Pos A-a O2 Difference 347.0 mm/Hg Respiratory Index 3.8 Hgb O2 Saturation 96.0 (95.0-98.0) % Mechanical Rate 14 FiO2 70.0 % Tidal Volume 450 PEEP 5 Sodium (132-148) mmol/L Potassium (3.6-5.2) mmol/L Chloride (98-107) mmol/L Carbon Dioxide (22-30) mmol/L Anion Gap (10-20) BUN (7-17) mg/dL Creatinine (0.7-1.2) MG/DL Est GFR ( Amer) Est GFR (Non-Af Amer) POC Glucose (mg/dL) 249 H 162 H (65-110) mg/dL Random Glucose (65-105) mg/dL Calcium (8.6-10.4) mg/dl Phosphorus (2.5-4.5) mg/dL Magnesium (1.6-2.3) mg/dL Total Bilirubin (0.2-1.3) mg/dL AST (14-36) U/L ALT (9-52) U/L Alkaline Phosphatase (38-126) U/L Lactate Dehydrogenase (313-618) U/L Total Protein (6.3-8.3) g/dL Albumin (3.5-5.0) g/dL Globulin (2.2-3.9) gm/dL Albumin/Globulin Ratio (1.0-2.1) Dengue Fever IgG Ab Dengue Fever IgM Ab 07/29/16 07/29/1607/29/17 Range/Units 17:27 11:26 07:30 WBC (4.8-10.8) K/uL RBC (3.80-5.20) Mil/uL Hgb (11.0-16.0) g/dL Hct (34.0-47.0) % MCV (81.0-99.0) fL MCH (27.0-31.0) pg MCHC (33.0-37.0) g/dL RDW (11.5-14.5) % Plt Count (130-400) K/uL MPV (7.2-11.7) fL Neut % (Auto) (50.0-75.0) % Lymph % (Auto) (20.0-40.0) % Tift % (Auto) (0.0-10.0) % Eos % (Auto) (0.0-4.0) % Baso % (Auto) (0.0-2.0) % Neut # (1.8-7.0) K/uL Lymph # (1.0-4.3) K/uL Tift # (0.0-0.8) K/uL Eos # (0.0-0.7) K/uL Baso # (0.0-0.2) K/uL Neutrophils % (Manual) (50-75) % Band Neutrophils % (0-2) % Lymphocytes % (Manual) (20-40) % Monocytes % (Manual) (0-10) % Platelet Estimate (NORMAL) Large Platelets Hypochromasia (manual) Poikilocytosis (manual Basophilic Stippling Anisocytosis (manual) Microcytosis (manual) Target Cells Tear Drop Cells Haptoglobin (43-212) mg/dL PT (9.7-12.2) SECONDS INR APTT (21-34) SECONDS Fibrinogen (200-400) mg/dL Fibrin Degrad Products (NEGATIVE) Fibrin Degrad Prod, Qt (<10) ug/mL [id number] Inhibitor (68-163) % Activity [id number] Inhibit Titer (()) Puncture Site pCO2 (35-45) mm/Hg pO2 (80-100) mm/Hg HCO3 (21-28) mmol/L ABG pH (7.35-7.45) ABG Total CO2 (22-28) mmol/L ABG O2 Saturation (95-98) % ABG Base Excess (-2.0-3.0) mmol/L ABG Hemoglobin (11.7-17.4) g/dL ABG Carboxyhemoglobin (0.5-1.5) % POC ABG HHb (Measured) (0.0-5.0) % ABG Methemoglobin (0.0-3.0) % Braxton Test A-a O2 Difference mm/Hg Respiratory Index Hgb O2 Saturation (95.0-98.0) % Mechanical Rate FiO2 % Tidal Volume PEEP Sodium (132-148) mmol/L Potassium (3.6-5.2) mmol/L Chloride (98-107) mmol/L Carbon Dioxide (22-30) mmol/L Anion Gap (10-20) BUN (7-17) mg/dL Creatinine (0.7-1.2) MG/DL Est GFR ( Amer) Est GFR (Non-Af Amer) POC Glucose (mg/dL) 230 H 200 H (65-110) mg/dL Random Glucose (65-105) mg/dL Calcium (8.6-10.4) mg/dl Phosphorus (2.5-4.5) mg/dL Magnesium (1.6-2.3) mg/dL Total Bilirubin (0.2-1.3) mg/dL AST (14-36) U/L ALT (9-52) U/L Alkaline Phosphatase (38-126) U/L Lactate Dehydrogenase 815 H (313-618) U/L Total Protein (6.3-8.3) g/dL Albumin (3.5-5.0) g/dL Globulin (2.2-3.9) gm/dL Albumin/Globulin Ratio (1.0-2.1) Dengue Fever IgG Ab Dengue Fever IgM Ab 07/29/16 07/29/16 07/29/16 Range/Units 06:09 06:09 06:08 WBC 10.7 (4.8-10.8) K/uL RBC 3.40 L (3.80-5.20) Mil/uL Hgb 11.0 (11.0-16.0) g/dL Hct 34.1 (34.0-47.0) % MCV 100.4 H (81.0-99.0) fL MCH 32.2 H (27.0-31.0) pg MCHC 32.1 L (33.0-37.0) g/dL RDW 18.2 H (11.5-14.5) % Plt Count 106 L (130-400) K/uL MPV 11.8 H (7.2-11.7) fL Neut % (Auto) 88.6 H (50.0-75.0) % Lymph % (Auto) 2.9 L (20.0-40.0) % Tift % (Auto) 8.4 (0.0-10.0) % Eos % (Auto) 0.0 (0.0-4.0) % Baso % (Auto) 0.1 (0.0-2.0) % Neut # 9.4 H (1.8-7.0) K/uL Lymph # 0.3 L (1.0-4.3) K/uL Tift # 0.9 H (0.0-0.8) K/uL Eos # 0.0 (0.0-0.7) K/uL Baso # 0.0 (0.0-0.2) K/uL Neutrophils % (Manual) 85 H (50-75) % Band Neutrophils % 1 (0-2) % Lymphocytes % (Manual) 6 L (20-40) % Monocytes % (Manual) 8 (0-10) % Platelet Estimate Slightly decreased L (NORMAL) Large Platelets Present Hypochromasia (manual) Slight Poikilocytosis (manual Slight Basophilic Stippling Slight Anisocytosis (manual) Slight Microcytosis (manual) Slight Target Cells Slight Tear Drop Cells Slight Haptoglobin (43-212) mg/dL PT 11.4 (9.7-12.2) SECONDS INR 1.0 APTT 28 (21-34) SECONDS Fibrinogen 236 (200-400) mg/dL Fibrin Degrad Products Negative D (NEGATIVE) Fibrin Degrad Prod, Qt <10 (<10) ug/mL [id number] Inhibitor (68-163) % Activity [id number] Inhibit Titer (()) Puncture Site pCO2 (35-45) mm/Hg pO2 (80-100) mm/Hg HCO3 (21-28) mmol/L ABG pH (7.35-7.45) ABG Total CO2 (22-28) mmol/L ABG O2 Saturation (95-98) % ABG Base Excess (-2.0-3.0) mmol/L ABG Hemoglobin (11.7-17.4) g/dL ABG Carboxyhemoglobin (0.5-1.5) % POC ABG HHb (Measured) (0.0-5.0) % ABG Methemoglobin (0.0-3.0) % Braxton Test A-a O2 Difference mm/Hg Respiratory Index Hgb O2 Saturation (95.0-98.0) % Mechanical Rate FiO2 % Tidal Volume PEEP Sodium 139 (132-148) mmol/L Potassium 3.8 (3.6-5.2) mmol/L Chloride 93 L (98-107) mmol/L Carbon Dioxide 32 H (22-30) mmol/L Anion Gap 18 (10-20) BUN 69 H (7-17) mg/dL Creatinine 3.4 H (0.7-1.2) MG/DL Est GFR ( Amer) 16 Est GFR (Non-Af Amer) 13 POC Glucose (mg/dL) (65-110) mg/dL Random Glucose 307 H (65-105) mg/dL Calcium 8.1 L (8.6-10.4) mg/dl Phosphorus 6.7 H (2.5-4.5) mg/dL Magnesium 2.1 (1.6-2.3) mg/dL Total Bilirubin 0.9 (0.2-1.3) mg/dL AST 38 H (14-36) U/L ALT 39 (9-52) U/L Alkaline Phosphatase 146 H D (38-126) U/L Lactate Dehydrogenase 789 H (313-618) U/L Total Protein 6.1 L (6.3-8.3) g/dL Albumin 3.3 L (3.5-5.0) g/dL Globulin 2.7 (2.2-3.9) gm/dL Albumin/Globulin Ratio 1.2 (1.0-2.1) Dengue Fever IgG Ab Dengue Fever IgM Ab 07/27/16 07/26/16 07/25/16 Range/Units 04:54 06:52 07:54 WBC (4.8-10.8) K/uL RBC (3.80-5.20) Mil/uL Hgb (11.0-16.0) g/dL Hct (34.0-47.0) % MCV (81.0-99.0) fL MCH (27.0-31.0) pg MCHC (33.0-37.0) g/dL RDW (11.5-14.5) % Plt Count (130-400) K/uL MPV (7.2-11.7) fL Neut % (Auto) (50.0-75.0) % Lymph % (Auto) (20.0-40.0) % Tift % (Auto) (0.0-10.0) % Eos % (Auto) (0.0-4.0) % Baso % (Auto) (0.0-2.0) % Neut # (1.8-7.0) K/uL Lymph # (1.0-4.3) K/uL Tift # (0.0-0.8) K/uL Eos # (0.0-0.7) K/uL Baso # (0.0-0.2) K/uL Neutrophils % (Manual) (50-75) % Band Neutrophils % (0-2) % Lymphocytes % (Manual) (20-40) % Monocytes % (Manual) (0-10) % Platelet Estimate (NORMAL) Large Platelets Hypochromasia (manual) Poikilocytosis (manual Basophilic Stippling Anisocytosis (manual) Microcytosis (manual) Target Cells Tear Drop Cells Haptoglobin 53 91 (43-212) mg/dL PT (9.7-12.2) SECONDS INR APTT (21-34) SECONDS Fibrinogen (200-400) mg/dL Fibrin Degrad Products (NEGATIVE) Fibrin Degrad Prod, Qt (<10) ug/mL [id number] Inhibitor 131 (68-163) % Activity [id number] Inhibit Titer (()) Puncture Site pCO2 (35-45) mm/Hg pO2 (80-100) mm/Hg HCO3 (21-28) mmol/L ABG pH (7.35-7.45) ABG Total CO2 (22-28) mmol/L ABG O2 Saturation (95-98) % ABG Base Excess (-2.0-3.0) mmol/L ABG Hemoglobin (11.7-17.4) g/dL ABG Carboxyhemoglobin (0.5-1.5) % POC ABG HHb (Measured) (0.0-5.0) % ABG Methemoglobin (0.0-3.0) % Braxton Test A-a O2 Difference mm/Hg Respiratory Index Hgb O2 Saturation (95.0-98.0) % Mechanical Rate FiO2 % Tidal Volume PEEP Sodium (132-148) mmol/L Potassium (3.6-5.2) mmol/L Chloride (98-107) mmol/L Carbon Dioxide (22-30) mmol/L Anion Gap (10-20) BUN (7-17) mg/dL Creatinine (0.7-1.2) MG/DL Est GFR ( Amer) Est GFR (Non-Af Amer) POC Glucose (mg/dL) (65-110) mg/dL Random Glucose (65-105) mg/dL Calcium (8.6-10.4) mg/dl Phosphorus (2.5-4.5) mg/dL Magnesium (1.6-2.3) mg/dL Total Bilirubin (0.2-1.3) mg/dL AST (14-36) U/L ALT (9-52) U/L Alkaline Phosphatase (38-126) U/L Lactate Dehydrogenase (313-618) U/L Total Protein (6.3-8.3) g/dL Albumin (3.5-5.0) g/dL Globulin (2.2-3.9) gm/dL Albumin/Globulin Ratio (1.0-2.1) Dengue Fever IgG Ab Dengue Fever IgM Ab 07/24/16 Range/Units 20:49 WBC (4.8-10.8) K/uL RBC (3.80-5.20) Mil/uL Hgb (11.0-16.0) g/dL Hct (34.0-47.0) % MCV (81.0-99.0) fL MCH (27.0-31.0) pg MCHC (33.0-37.0) g/dL RDW (11.5-14.5) % Plt Count (130-400) K/uL MPV (7.2-11.7) fL Neut % (Auto) (50.0-75.0) % Lymph % (Auto) (20.0-40.0) % Tift % (Auto) (0.0-10.0) % Eos % (Auto) (0.0-4.0) % Baso % (Auto) (0.0-2.0) % Neut # (1.8-7.0) K/uL Lymph # (1.0-4.3) K/uL Tift # (0.0-0.8) K/uL Eos # (0.0-0.7) K/uL Baso # (0.0-0.2) K/uL Neutrophils % (Manual) (50-75) % Band Neutrophils % (0-2) % Lymphocytes % (Manual) (20-40) % Monocytes % (Manual) (0-10) % Platelet Estimate (NORMAL) Large Platelets Hypochromasia (manual) Poikilocytosis (manual Basophilic Stippling Anisocytosis (manual) Microcytosis (manual) Target Cells Tear Drop Cells Haptoglobin (43-212) mg/dL PT (9.7-12.2) SECONDS INR APTT (21-34) SECONDS Fibrinogen (200-400) mg/dL Fibrin Degrad Products (NEGATIVE) Fibrin Degrad Prod, Qt (<10) ug/mL [id number] Inhibitor (68-163) % Activity [id number] Inhibit Titer (()) Puncture Site pCO2 (35-45) mm/Hg pO2 (80-100) mm/Hg HCO3 (21-28) mmol/L ABG pH (7.35-7.45) ABG Total CO2 (22-28) mmol/L ABG O2 Saturation (95-98) % ABG Base Excess (-2.0-3.0) mmol/L ABG Hemoglobin (11.7-17.4) g/dL ABG Carboxyhemoglobin (0.5-1.5) % POC ABG HHb (Measured) (0.0-5.0) % ABG Methemoglobin (0.0-3.0) % Braxton Test A-a O2 Difference mm/Hg Respiratory Index Hgb O2 Saturation (95.0-98.0) % Mechanical Rate FiO2 % Tidal Volume PEEP Sodium (132-148) mmol/L Potassium (3.6-5.2) mmol/L Chloride (98-107) mmol/L Carbon Dioxide (22-30) mmol/L Anion Gap (10-20) BUN (7-17) mg/dL Creatinine (0.7-1.2) MG/DL Est GFR ( Amer) Est GFR (Non-Af Amer) POC Glucose (mg/dL) (65-110) mg/dL Random Glucose (65-105) mg/dL Calcium (8.6-10.4) mg/dl Phosphorus (2.5-4.5) mg/dL Magnesium (1.6-2.3) mg/dL Total Bilirubin (0.2-1.3) mg/dL AST (14-36) U/L ALT (9-52) U/L Alkaline Phosphatase (38-126) U/L Lactate Dehydrogenase (313-618) U/L Total Protein (6.3-8.3) g/dL Albumin (3.5-5.0) g/dL Globulin (2.2-3.9) gm/dL Albumin/Globulin Ratio (1.0-2.1) Dengue Fever IgG Ab 5.00 H Dengue Fever IgM Ab 0.52 Laboratory Results - last 24 hr 07/24/16 07/25/16 07/26/16 20:49 07:54 06:52 WBC RBC Hgb Hct MCV MCH MCHC RDW Plt Count MPV Neut % (Auto) Lymph % (Auto) Tift % (Auto) Eos % (Auto) Baso % (Auto) Neut # Lymph # Tift # Eos # Baso # Neutrophils % (Manual) Band Neutrophils % Lymphocytes % (Manual) Monocytes % (Manual) Platelet Estimate Large Platelets Hypochromasia (manual) Poikilocytosis (manual Basophilic Stippling Anisocytosis (manual) Microcytosis (manual) Target Cells Tear Drop Cells Haptoglobin 91 PT INR APTT Fibrinogen Fibrin Degrad Products Fibrin Degrad Prod, Qt [id number] Inhibitor 131 [id number] Inhibit Titer Puncture Site pCO2 pO2 HCO3 ABG pH ABG Total CO2 ABG O2 Saturation ABG Base Excess ABG Hemoglobin ABG Carboxyhemoglobin POC ABG HHb (Measured) ABG Methemoglobin Braxton Test A-a O2 Difference Respiratory Index Hgb O2 Saturation Mechanical Rate FiO2 Tidal Volume PEEP Sodium Potassium Chloride Carbon Dioxide Anion Gap BUN Creatinine Est GFR ( Amer) Est GFR (Non-Af Amer) POC Glucose (mg/dL) Random Glucose Calcium Phosphorus Magnesium Total Bilirubin AST ALT Alkaline Phosphatase Lactate Dehydrogenase Total Protein Albumin Globulin Albumin/Globulin Ratio Dengue Fever IgG Ab 5.00 H Dengue Fever IgM Ab 0.52 07/27/16 07/29/16 07/29/16 04:54 06:08 06:09 WBC 10.7 RBC 3.40 L Hgb 11.0 Hct 34.1 MCV 100.4 H MCH 32.2 H MCHC 32.1 L RDW 18.2 H Plt Count 106 L MPV 11.8 H Neut % (Auto) 88.6 H Lymph % (Auto) 2.9 L Tift % (Auto) 8.4 Eos % (Auto) 0.0 Baso % (Auto) 0.1 Neut # 9.4 H Lymph # 0.3 L Tift # 0.9 H Eos # 0.0 Baso # 0.0 Neutrophils % (Manual) 85 H Band Neutrophils % 1 Lymphocytes % (Manual) 6 L Monocytes % (Manual) 8 Platelet Estimate Slightly decreased L Large Platelets Present Hypochromasia (manual) Slight Poikilocytosis (manual Slight Basophilic Stippling Slight Anisocytosis (manual) Slight Microcytosis (manual) Slight Target Cells Slight Tear Drop Cells Slight Haptoglobin 53 PT INR APTT Fibrinogen Fibrin Degrad Products Fibrin Degrad Prod, Qt [id number] Inhibitor [id number] Inhibit Titer Puncture Site pCO2 pO2 HCO3 ABG pH ABG Total CO2 ABG O2 Saturation ABG Base Excess ABG Hemoglobin ABG Carboxyhemoglobin POC ABG HHb (Measured) ABG Methemoglobin Braxton Test A-a O2 Difference Respiratory Index Hgb O2 Saturation Mechanical Rate FiO2 Tidal Volume PEEP Sodium 139 Potassium 3.8 Chloride 93 L Carbon Dioxide 32 H Anion Gap 18 BUN 69 H Creatinine 3.4 H Est GFR ( Amer) 16 Est GFR (Non-Af Amer) 13 POC Glucose (mg/dL) Random Glucose 307 H Calcium 8.1 L Phosphorus 6.7 H Magnesium 2.1 Total Bilirubin 0.9 AST 38 H ALT 39 Alkaline Phosphatase 146 H D Lactate Dehydrogenase 789 H Total Protein 6.1 L Albumin 3.3 L Globulin 2.7 Albumin/Globulin Ratio 1.2 Dengue Fever IgG Ab Dengue Fever IgM Ab 07/29/16 07/29/16 07/29/16 06:09 07:30 11:26 WBC RBC Hgb Hct MCV MCH MCHC RDW Plt Count MPV Neut % (Auto) Lymph % (Auto) Tift % (Auto) Eos % (Auto) Baso % (Auto) Neut # Lymph # Tift # Eos # Baso # Neutrophils % (Manual) Band Neutrophils % Lymphocytes % (Manual) Monocytes % (Manual) Platelet Estimate Large Platelets Hypochromasia (manual) Poikilocytosis (manual Basophilic Stippling Anisocytosis (manual) Microcytosis (manual) Target Cells Tear Drop Cells Haptoglobin PT 11.4 INR 1.0 APTT 28 Fibrinogen 236 Fibrin Degrad Products Negative D Fibrin Degrad Prod, Qt <10 [id number] Inhibitor [id number] Inhibit Titer Puncture Site pCO2 pO2 HCO3 ABG pH ABG Total CO2 ABG O2 Saturation ABG Base Excess ABG Hemoglobin ABG Carboxyhemoglobin POC ABG HHb (Measured) ABG Methemoglobin Braxton Test A-a O2 Difference Respiratory Index Hgb O2 Saturation Mechanical Rate FiO2 Tidal Volume PEEP Sodium Potassium Chloride Carbon Dioxide Anion Gap BUN Creatinine Est GFR ( Amer) Est GFR (Non-Af Amer) POC Glucose (mg/dL) 200 H Random Glucose Calcium Phosphorus Magnesium Total Bilirubin AST ALT Alkaline Phosphatase Lactate Dehydrogenase 815 H Total Protein Albumin Globulin Albumin/Globulin Ratio Dengue Fever IgG Ab Dengue Fever IgM Ab 07/29/16 07/30/16 07/30/16 17:27 00:00 05:08 WBC RBC Hgb Hct MCV MCH MCHC RDW Plt Count MPV Neut % (Auto) Lymph % (Auto) Tift % (Auto) Eos % (Auto) Baso % (Auto) Neut # Lymph # Tift # Eos # Baso # Neutrophils % (Manual) Band Neutrophils % Lymphocytes % (Manual) Monocytes % (Manual) Platelet Estimate Large Platelets Hypochromasia (manual) Poikilocytosis (manual Basophilic Stippling Anisocytosis (manual) Microcytosis (manual) Target Cells Tear Drop Cells Haptoglobin PT INR APTT Fibrinogen Fibrin Degrad Products Fibrin Degrad Prod, Qt [id number] Inhibitor [id number] Inhibit Titer Puncture Site L rad pCO2 48 H pO2 92 HCO3 33.3 H ABG pH 7.48 H ABG Total CO2 37.2 H ABG O2 Saturation 99.2 H ABG Base Excess 10.8 H ABG Hemoglobin 10.9 L ABG Carboxyhemoglobin 2.1 H POC ABG HHb (Measured) 0.8 ABG Methemoglobin 1.1 Braxton Test Pos A-a O2 Difference 347.0 Respiratory Index 3.8 Hgb O2 Saturation 96.0 Mechanical Rate 14 FiO2 70.0 Tidal Volume 450 PEEP 5 Sodium Potassium Chloride Carbon Dioxide Anion Gap BUN Creatinine Est GFR ( Amer) Est GFR (Non-Af Amer) POC Glucose (mg/dL) 230 H 162 H Random Glucose Calcium Phosphorus Magnesium Total Bilirubin AST ALT Alkaline Phosphatase Lactate Dehydrogenase Total Protein Albumin Globulin Albumin/Globulin Ratio Dengue Fever IgG Ab Dengue Fever IgM Ab 07/30/16 06:05 WBC RBC Hgb Hct MCV MCH MCHC RDW Plt Count MPV Neut % (Auto) Lymph % (Auto) Tift % (Auto) Eos % (Auto) Baso % (Auto) Neut # Lymph # Tift # Eos # Baso # Neutrophils % (Manual) Band Neutrophils % Lymphocytes % (Manual) Monocytes % (Manual) Platelet Estimate Large Platelets Hypochromasia (manual) Poikilocytosis (manual Basophilic Stippling Anisocytosis (manual) Microcytosis (manual) Target Cells Tear Drop Cells Haptoglobin PT INR APTT Fibrinogen Fibrin Degrad Products Fibrin Degrad Prod, Qt [id number] Inhibitor [id number] Inhibit Titer Puncture Site pCO2 pO2 HCO3 ABG pH ABG Total CO2 ABG O2 Saturation ABG Base Excess ABG Hemoglobin ABG Carboxyhemoglobin POC ABG HHb (Measured) ABG Methemoglobin Braxton Test A-a O2 Difference Respiratory Index Hgb O2 Saturation Mechanical Rate FiO2 Tidal Volume PEEP Sodium Potassium Chloride Carbon Dioxide Anion Gap BUN Creatinine Est GFR ( Amer) Est GFR (Non-Af Amer) POC Glucose (mg/dL) 249 H Random Glucose Calcium Phosphorus Magnesium Total Bilirubin AST ALT Alkaline Phosphatase Lactate Dehydrogenase Total Protein Albumin Globulin Albumin/Globulin Ratio Dengue Fever IgG Ab Dengue Fever IgM Ab Review of Systems - Review of Systems Systems not reviewed;Unavailable: Intubated Assessment/Plan - Assessment and Plan (Free Text) Assessment: 80 F PMHx systolic CHF (EF-10%) presented with acute renal failure, acute respiratory failure, spherocytosis. Thrombocytopenia - current suspicion of TTP. Plan: Neuro: Alert and responsive Precedex gtt discontinued this AM due to bradycardia Versed 2mg ivp q3 prn Pulm: Acute respiratory failure, tolerating CPAP + PS (70%, 5, 15) Duoneb 3ml inh q6 CXR 07/30: Possible early infiltrate right lung base. F/u advised. Small b/l pleural effusion. (see full report) LE dopplers negative b/l Zosyn 2.25gm ivpb q6 CV: Hemodynamically stable. 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 Renal: Nonoliguric MARCO Patient with HD today 07/30 Cr 4.1, up form 3.4 Renal u/s: unremarkable Monitor Endo: DM2 Accucheck RISS high dose Lantus 10U sc hs GI: NPO Novasource Renal @ 40cc/hr- tolerating Flagyl 500mg ivpb q8 CT abd/pelvis: no acute findings; nonspecific hazy change noted within mesenteric fat with mild anasarca; scattered colonic diverticula ID: Uncertain source of sepsis Urine culture negative Zosyn 2.25gm ivpb q6 (started 07/23) Flagyl 500mg ivpb q8 (started 07/24) DVT proph: SCDs GI proph: Pepcid 20mg po bid sharp for strict I/O's during acute illness Code status - full code Case discussed with Dr. Nitin Contreras, PGY-1 <Anthony Taveras S - Last Filed: 07/30/16 17:37> CCU Subjective - Physician Review Critical Care Time Spent (in minutes): 30 CCU Objective - Vital Signs / Intake & Output Vital Signs (Last 4 hours): Vital Signs Temp Pulse Resp BP Pulse Ox 07/30/16 17:00 66 16 128/66 96 07/30/16 16:00 97.9 F 68 14 112/70 96 07/30/16 15:00 65 14 107/65 95 07/30/16 14:00 65 14 132/73 96 Intake and Output (Last 8hrs): Intake & Output 07/30/16 07/30/16 07/30/16 06:59 14:59 22:59 Intake Total 532.0 639.0 124.5 Output Total 750 440 70 Balance -218.0 199.0 54.5 Intake: Intake, IV Amount 212.0 259.0 4.5 Right Distal Port 250 Internal Jugular Right Medial Port 200 Internal Jugular Right Proximal Port 12.0 9.0 4.5 Internal Jugular Tube Feeding 320 320 120 Other 60 Output: Urine 750 440 70 Urethral (Sharp) 750 440 70 Other: # Bowel Movements 1 1 - Medications Active Medications: Active Medications Generic Name Dose Route Start Last Admin Trade Name Freq PRN Reason Stop Dose Admin Albuterol/Ipratropium 3 ml 07/23/16 08:00 07/30/16 14:12 Duoneb 3 Mg/0.5 Mg (3 Ml) Ud INH 3 ml RQ6 JESSI Administration Carvedilol 3.125 mg 07/29/16 10:12 07/30/16 09:07 Coreg PO Not Given BID JESSI Dexamethasone 4 mg 07/28/16 10:00 07/30/16 09:12 Decadron Inj IV 4 mg Q12 JESSI Administration Famotidine 20 mg 07/30/16 10:00 07/30/16 09:10 Pepcid PO 20 mg DAILY JESSI Administration Furosemide 60 mg 07/28/16 08:29 07/29/16 23:09 Lasix IVP 60 mg Q12 JESSI Administration Hydralazine HCl 10 mg 07/28/16 08:30 07/30/16 13:54 Apresoline PO 10 mg Q8 JESSI Administration Piperacillin Sod/Tazobactam Sod 2.25 gm in 50 mls @ 100 mls/hr 07/23/16 13:00 07/30/16 12:16 Zosyn 2.25 Gm Iv Premix IVPB 100 mls/hr Q6H JESSI Administration Metronidazole 500 mg in 100 mls @ 100 mls/hr 07/24/16 22:00 07/30/16 13:54 Flagyl IVPB 100 mls/hr Q8 JESSI Administration Dexmedetomidine HCl 200 mcg/ 50 mls @ 3.47 mls/hr 07/28/16 17:15 07/30/16 09: 05 Sodium Chloride IV 0.08 mcg/kg/hr TITR PRN 1.5 mls/hr Sedation Administration Protocol 0.2 MCG/KG/HR Insulin Aspart 0 unit 07/29/16 12:00 07/30/16 12:15 Novolog SC 4 unit Q6H JESSI Administration Protocol Insulin Glargine 10 unit 07/29/16 22:00 07/29/16 23:12 Lantus SC 10 units HS JESSI Administration Midazolam HCl 2 mg 07/28/16 10:00 07/28/16 17:23 Versed Inj IVP 2 mg Q3 PRN Administration Nifedipine 10 mg 07/25/16 12:00 07/30/16 09:08 Procardia PO Not Given BID JESSI - Patient Studies Lab Studies: Microbiology Studies 07/30/16 11:53 Ova and Parasite Concentrate Exam - Final Stool Lab Studies 07/30/16 07/30/16 07/30/16 Range/Units 11:53 11:43 06:23 WBC (4.8-10.8) K/uL RBC (3.80-5.20) Mil/uL Hgb (11.0-16.0) g/dL Hct (34.0-47.0) % MCV (81.0-99.0) fL MCH (27.0-31.0) pg MCHC (33.0-37.0) g/dL RDW (11.5-14.5) % Plt Count (130-400) K/uL MPV (7.2-11.7) fL Neut % (Auto) (50.0-75.0) % Lymph % (Auto) (20.0-40.0) % Tift % (Auto) (0.0-10.0) % Eos % (Auto) (0.0-4.0) % Baso % (Auto) (0.0-2.0) % Neut # (1.8-7.0) K/uL Lymph # (1.0-4.3) K/uL Tift # (0.0-0.8) K/uL Eos # (0.0-0.7) K/uL Baso # (0.0-0.2) K/uL Neutrophils % (Manual) (50-75) % Band Neutrophils % (0-2) % Lymphocytes % (Manual) (20-40) % Monocytes % (Manual) (0-10) % Metamyelocytes % (0-0) % Platelet Estimate (NORMAL) Hypochromasia (manual) Poikilocytosis (manual Anisocytosis (manual) Microcytosis (manual) Haptoglobin (43-212) mg/dL Puncture Site pCO2 (35-45) mm/Hg pO2 (80-100) mm/Hg HCO3 (21-28) mmol/L ABG pH (7.35-7.45) ABG Total CO2 (22-28) mmol/L ABG O2 Saturation (95-98) % ABG Base Excess (-2.0-3.0) mmol/L ABG Hemoglobin (11.7-17.4) g/dL ABG Carboxyhemoglobin (0.5-1.5) % POC ABG HHb (Measured) (0.0-5.0) % ABG Methemoglobin (0.0-3.0) % Braxton Test A-a O2 Difference mm/Hg Respiratory Index Hgb O2 Saturation (95.0-98.0) % Mechanical Rate FiO2 % Tidal Volume PEEP Sodium 139 (132-148) mmol/L Potassium 3.3 L (3.6-5.2) mmol/L Chloride 92 L (98-107) mmol/L Carbon Dioxide 34 H (22-30) mmol/L Anion Gap 16 (10-20) BUN 82 H (7-17) mg/dL Creatinine 4.1 H (0.7-1.2) MG/DL Est GFR ( Amer) 13 Est GFR (Non-Af Amer) 10 POC Glucose (mg/dL) 231 H (65-110) mg/dL Random Glucose 181 H (65-105) mg/dL Calcium 7.4 L (8.6-10.4) mg/dl Phosphorus 6.0 H (2.5-4.5) mg/dL Magnesium 2.0 (1.6-2.3) mg/dL Total Bilirubin 0.7 (0.2-1.3) mg/dL AST 20 (14-36) U/L ALT 45 (9-52) U/L Alkaline Phosphatase 194 H D (38-126) U/L Total Protein 5.6 L (6.3-8.3) g/dL Albumin 3.1 L (3.5-5.0) g/dL Globulin 2.5 (2.2-3.9) gm/dL Albumin/Globulin Ratio 1.2 (1.0-2.1) C. difficile Ag & Toxin Negative (NEGATIVE) Dengue Fever IgG Ab Dengue Fever IgM Ab 07/30/16 07/30/16 07/30/16 Range/Units 06:23 06:05 05:08 WBC 12.4 H (4.8-10.8) K/uL RBC 3.44 L (3.80-5.20) Mil/uL Hgb 11.1 (11.0-16.0) g/dL Hct 34.3 (34.0-47.0) % MCV 99.8 H (81.0-99.0) fL MCH 32.3 H (27.0-31.0) pg MCHC 32.3 L (33.0-37.0) g/dL RDW 18.2 H (11.5-14.5) % Plt Count 129 L D (130-400) K/uL MPV 10.8 (7.2-11.7) fL Neut % (Auto) 88.2 H (50.0-75.0) % Lymph % (Auto) 2.7 L (20.0-40.0) % Tift % (Auto) 8.5 (0.0-10.0) % Eos % (Auto) 0.5 (0.0-4.0) % Baso % (Auto) 0.1 (0.0-2.0) % Neut # 10.9 H (1.8-7.0) K/uL Lymph # 0.3 L (1.0-4.3) K/uL Tift # 1.1 H (0.0-0.8) K/uL Eos # 0.1 (0.0-0.7) K/uL Baso # 0.0 (0.0-0.2) K/uL Neutrophils % (Manual) 87 H (50-75) % Band Neutrophils % 1 (0-2) % Lymphocytes % (Manual) 1 L (20-40) % Monocytes % (Manual) 10 (0-10) % Metamyelocytes % 1 H (0-0) % Platelet Estimate Slightly decreased L (NORMAL) Hypochromasia (manual) Slight Poikilocytosis (manual Slight Anisocytosis (manual) Slight Microcytosis (manual) Slight Haptoglobin (43-212) mg/dL Puncture Site L rad pCO2 48 H (35-45) mm/Hg pO2 92 (80-100) mm/Hg HCO3 33.3 H (21-28) mmol/L ABG pH 7.48 H (7.35-7.45) ABG Total CO2 37.2 H (22-28) mmol/L ABG O2 Saturation 99.2 H (95-98) % ABG Base Excess 10.8 H (-2.0-3.0) mmol/L ABG Hemoglobin 10.9 L (11.7-17.4) g/dL ABG Carboxyhemoglobin 2.1 H (0.5-1.5) % POC ABG HHb (Measured) 0.8 (0.0-5.0) % ABG Methemoglobin 1.1 (0.0-3.0) % Braxton Test Pos A-a O2 Difference 347.0 mm/Hg Respiratory Index 3.8 Hgb O2 Saturation 96.0 (95.0-98.0) % Mechanical Rate 14 FiO2 70.0 % Tidal Volume 450 PEEP 5 Sodium (132-148) mmol/L Potassium (3.6-5.2) mmol/L Chloride (98-107) mmol/L Carbon Dioxide (22-30) mmol/L Anion Gap (10-20) BUN (7-17) mg/dL Creatinine (0.7-1.2) MG/DL Est GFR ( Amer) Est GFR (Non-Af Amer) POC Glucose (mg/dL) 249 H (65-110) mg/dL Random Glucose (65-105) mg/dL Calcium (8.6-10.4) mg/dl Phosphorus (2.5-4.5) mg/dL Magnesium (1.6-2.3) mg/dL Total Bilirubin (0.2-1.3) mg/dL AST (14-36) U/L ALT (9-52) U/L Alkaline Phosphatase (38-126) U/L Total Protein (6.3-8.3) g/dL Albumin (3.5-5.0) g/dL Globulin (2.2-3.9) gm/dL Albumin/Globulin Ratio (1.0-2.1) C. difficile Ag & Toxin (NEGATIVE) Dengue Fever IgG Ab Dengue Fever IgM Ab 07/30/16 07/29/16 07/29/16 Range/Units 00:00 17:27 07:18 WBC (4.8-10.8) K/uL RBC (3.80-5.20) Mil/uL Hgb (11.0-16.0) g/dL Hct (34.0-47.0) % MCV (81.0-99.0) fL MCH (27.0-31.0) pg MCHC (33.0-37.0) g/dL RDW (11.5-14.5) % Plt Count (130-400) K/uL MPV (7.2-11.7) fL Neut % (Auto) (50.0-75.0) % Lymph % (Auto) (20.0-40.0) % Tift % (Auto) (0.0-10.0) % Eos % (Auto) (0.0-4.0) % Baso % (Auto) (0.0-2.0) % Neut # (1.8-7.0) K/uL Lymph # (1.0-4.3) K/uL Tift # (0.0-0.8) K/uL Eos # (0.0-0.7) K/uL Baso # (0.0-0.2) K/uL Neutrophils % (Manual) (50-75) % Band Neutrophils % (0-2) % Lymphocytes % (Manual) (20-40) % Monocytes % (Manual) (0-10) % Metamyelocytes % (0-0) % Platelet Estimate (NORMAL) Hypochromasia (manual) Poikilocytosis (manual Anisocytosis (manual) Microcytosis (manual) Haptoglobin 62 (43-212) mg/dL Puncture Site pCO2 (35-45) mm/Hg pO2 (80-100) mm/Hg HCO3 (21-28) mmol/L ABG pH (7.35-7.45) ABG Total CO2 (22-28) mmol/L ABG O2 Saturation (95-98) % ABG Base Excess (-2.0-3.0) mmol/L ABG Hemoglobin (11.7-17.4) g/dL ABG Carboxyhemoglobin (0.5-1.5) % POC ABG HHb (Measured) (0.0-5.0) % ABG Methemoglobin (0.0-3.0) % Braxton Test A-a O2 Difference mm/Hg Respiratory Index Hgb O2 Saturation (95.0-98.0) % Mechanical Rate FiO2 % Tidal Volume PEEP Sodium (132-148) mmol/L Potassium (3.6-5.2) mmol/L Chloride (98-107) mmol/L Carbon Dioxide (22-30) mmol/L Anion Gap (10-20) BUN (7-17) mg/dL Creatinine (0.7-1.2) MG/DL Est GFR ( Amer) Est GFR (Non-Af Amer) POC Glucose (mg/dL) 162 H 230 H (65-110) mg/dL Random Glucose (65-105) mg/dL Calcium (8.6-10.4) mg/dl Phosphorus (2.5-4.5) mg/dL Magnesium (1.6-2.3) mg/dL Total Bilirubin (0.2-1.3) mg/dL AST (14-36) U/L ALT (9-52) U/L Alkaline Phosphatase (38-126) U/L Total Protein (6.3-8.3) g/dL Albumin (3.5-5.0) g/dL Globulin (2.2-3.9) gm/dL Albumin/Globulin Ratio (1.0-2.1) C. difficile Ag & Toxin (NEGATIVE) Dengue Fever IgG Ab Dengue Fever IgM Ab 07/24/16 Range/Units 20:49 WBC (4.8-10.8) K/uL RBC (3.80-5.20) Mil/uL Hgb (11.0-16.0) g/dL Hct (34.0-47.0) % MCV (81.0-99.0) fL MCH (27.0-31.0) pg MCHC (33.0-37.0) g/dL RDW (11.5-14.5) % Plt Count (130-400) K/uL MPV (7.2-11.7) fL Neut % (Auto) (50.0-75.0) % Lymph % (Auto) (20.0-40.0) % Tift % (Auto) (0.0-10.0) % Eos % (Auto) (0.0-4.0) % Baso % (Auto) (0.0-2.0) % Neut # (1.8-7.0) K/uL Lymph # (1.0-4.3) K/uL Tift # (0.0-0.8) K/uL Eos # (0.0-0.7) K/uL Baso # (0.0-0.2) K/uL Neutrophils % (Manual) (50-75) % Band Neutrophils % (0-2) % Lymphocytes % (Manual) (20-40) % Monocytes % (Manual) (0-10) % Metamyelocytes % (0-0) % Platelet Estimate (NORMAL) Hypochromasia (manual) Poikilocytosis (manual Anisocytosis (manual) Microcytosis (manual) Haptoglobin (43-212) mg/dL Puncture Site pCO2 (35-45) mm/Hg pO2 (80-100) mm/Hg HCO3 (21-28) mmol/L ABG pH (7.35-7.45) ABG Total CO2 (22-28) mmol/L ABG O2 Saturation (95-98) % ABG Base Excess (-2.0-3.0) mmol/L ABG Hemoglobin (11.7-17.4) g/dL ABG Carboxyhemoglobin (0.5-1.5) % POC ABG HHb (Measured) (0.0-5.0) % ABG Methemoglobin (0.0-3.0) % Braxton Test A-a O2 Difference mm/Hg Respiratory Index Hgb O2 Saturation (95.0-98.0) % Mechanical Rate FiO2 % Tidal Volume PEEP Sodium (132-148) mmol/L Potassium (3.6-5.2) mmol/L Chloride (98-107) mmol/L Carbon Dioxide (22-30) mmol/L Anion Gap (10-20) BUN (7-17) mg/dL Creatinine (0.7-1.2) MG/DL Est GFR ( Amer) Est GFR (Non-Af Amer) POC Glucose (mg/dL) (65-110) mg/dL Random Glucose (65-105) mg/dL Calcium (8.6-10.4) mg/dl Phosphorus (2.5-4.5) mg/dL Magnesium (1.6-2.3) mg/dL Total Bilirubin (0.2-1.3) mg/dL AST (14-36) U/L ALT (9-52) U/L Alkaline Phosphatase (38-126) U/L Total Protein (6.3-8.3) g/dL Albumin (3.5-5.0) g/dL Globulin (2.2-3.9) gm/dL Albumin/Globulin Ratio (1.0-2.1) C. difficile Ag & Toxin (NEGATIVE) Dengue Fever IgG Ab 5.00 H Dengue Fever IgM Ab 0.52 Laboratory Results - last 24 hr 07/24/16 07/29/16 07/29/16 20:49 07:18 17:27 WBC RBC Hgb Hct MCV MCH MCHC RDW Plt Count MPV Neut % (Auto) Lymph % (Auto) Tift % (Auto) Eos % (Auto) Baso % (Auto) Neut # Lymph # Tift # Eos # Baso # Neutrophils % (Manual) Band Neutrophils % Lymphocytes % (Manual) Monocytes % (Manual) Metamyelocytes % Platelet Estimate Hypochromasia (manual) Poikilocytosis (manual Anisocytosis (manual) Microcytosis (manual) Haptoglobin 62 Puncture Site pCO2 pO2 HCO3 ABG pH ABG Total CO2 ABG O2 Saturation ABG Base Excess ABG Hemoglobin ABG Carboxyhemoglobin POC ABG HHb (Measured) ABG Methemoglobin Braxton Test A-a O2 Difference Respiratory Index Hgb O2 Saturation Mechanical Rate FiO2 Tidal Volume PEEP Sodium Potassium Chloride Carbon Dioxide Anion Gap BUN Creatinine Est GFR ( Amer) Est GFR (Non-Af Amer) POC Glucose (mg/dL) 230 H Random Glucose Calcium Phosphorus Magnesium Total Bilirubin AST ALT Alkaline Phosphatase Total Protein Albumin Globulin Albumin/Globulin Ratio C. difficile Ag & Toxin Dengue Fever IgG Ab 5.00 H Dengue Fever IgM Ab 0.52 07/30/16 07/30/16 07/30/16 00:00 05:08 06:05 WBC RBC Hgb Hct MCV MCH MCHC RDW Plt Count MPV Neut % (Auto) Lymph % (Auto) Tift % (Auto) Eos % (Auto) Baso % (Auto) Neut # Lymph # Tift # Eos # Baso # Neutrophils % (Manual) Band Neutrophils % Lymphocytes % (Manual) Monocytes % (Manual) Metamyelocytes % Platelet Estimate Hypochromasia (manual) Poikilocytosis (manual Anisocytosis (manual) Microcytosis (manual) Haptoglobin Puncture Site L rad pCO2 48 H pO2 92 HCO3 33.3 H ABG pH 7.48 H ABG Total CO2 37.2 H ABG O2 Saturation 99.2 H ABG Base Excess 10.8 H ABG Hemoglobin 10.9 L ABG Carboxyhemoglobin 2.1 H POC ABG HHb (Measured) 0.8 ABG Methemoglobin 1.1 Braxton Test Pos A-a O2 Difference 347.0 Respiratory Index 3.8 Hgb O2 Saturation 96.0 Mechanical Rate 14 FiO2 70.0 Tidal Volume 450 PEEP 5 Sodium Potassium Chloride Carbon Dioxide Anion Gap BUN Creatinine Est GFR ( Amer) Est GFR (Non-Af Amer) POC Glucose (mg/dL) 162 H 249 H Random Glucose Calcium Phosphorus Magnesium Total Bilirubin AST ALT Alkaline Phosphatase Total Protein Albumin Globulin Albumin/Globulin Ratio C. difficile Ag & Toxin Dengue Fever IgG Ab Dengue Fever IgM Ab 07/30/16 07/30/16 07/30/16 06:23 06:23 11:43 WBC 12.4 H RBC 3.44 L Hgb 11.1 Hct 34.3 MCV 99.8 H MCH 32.3 H MCHC 32.3 L RDW 18.2 H Plt Count 129 L D MPV 10.8 Neut % (Auto) 88.2 H Lymph % (Auto) 2.7 L Tift % (Auto) 8.5 Eos % (Auto) 0.5 Baso % (Auto) 0.1 Neut # 10.9 H Lymph # 0.3 L Tift # 1.1 H Eos # 0.1 Baso # 0.0 Neutrophils % (Manual) 87 H Band Neutrophils % 1 Lymphocytes % (Manual) 1 L Monocytes % (Manual) 10 Metamyelocytes % 1 H Platelet Estimate Slightly decreased L Hypochromasia (manual) Slight Poikilocytosis (manual Slight Anisocytosis (manual) Slight Microcytosis (manual) Slight Haptoglobin Puncture Site pCO2 pO2 HCO3 ABG pH ABG Total CO2 ABG O2 Saturation ABG Base Excess ABG Hemoglobin ABG Carboxyhemoglobin POC ABG HHb (Measured) ABG Methemoglobin Braxton Test A-a O2 Difference Respiratory Index Hgb O2 Saturation Mechanical Rate FiO2 Tidal Volume PEEP Sodium 139 Potassium 3.3 L Chloride 92 L Carbon Dioxide 34 H Anion Gap 16 BUN 82 H Creatinine 4.1 H Est GFR ( Amer) 13 Est GFR (Non-Af Amer) 10 POC Glucose (mg/dL) 231 H Random Glucose 181 H Calcium 7.4 L Phosphorus 6.0 H Magnesium 2.0 Total Bilirubin 0.7 AST 20 ALT 45 Alkaline Phosphatase 194 H D Total Protein 5.6 L Albumin 3.1 L Globulin 2.5 Albumin/Globulin Ratio 1.2 C. difficile Ag & Toxin Dengue Fever IgG Ab Dengue Fever IgM Ab 07/30/16 11:53 WBC RBC Hgb Hct MCV MCH MCHC RDW Plt Count MPV Neut % (Auto) Lymph % (Auto) Tift % (Auto) Eos % (Auto) Baso % (Auto) Neut # Lymph # Tift # Eos # Baso # Neutrophils % (Manual) Band Neutrophils % Lymphocytes % (Manual) Monocytes % (Manual) Metamyelocytes % Platelet Estimate Hypochromasia (manual) Poikilocytosis (manual Anisocytosis (manual) Microcytosis (manual) Haptoglobin Puncture Site pCO2 pO2 HCO3 ABG pH ABG Total CO2 ABG O2 Saturation ABG Base Excess ABG Hemoglobin ABG Carboxyhemoglobin POC ABG HHb (Measured) ABG Methemoglobin Braxton Test A-a O2 Difference Respiratory Index Hgb O2 Saturation Mechanical Rate FiO2 Tidal Volume PEEP Sodium Potassium Chloride Carbon Dioxide Anion Gap BUN Creatinine Est GFR ( Amer) Est GFR (Non-Af Amer) POC Glucose (mg/dL) Random Glucose Calcium Phosphorus Magnesium Total Bilirubin AST ALT Alkaline Phosphatase Total Protein Albumin Globulin Albumin/Globulin Ratio C. difficile Ag & Toxin Negative Dengue Fever IgG Ab Dengue Fever IgM Ab Assessment/Plan (1) CHF (congestive heart failure) Current Visit: Yes Status: Acute Comment: Overnight patient got intubated for pulmonary edema and transferred to ICU. Elevated troponin could be secondary to renal failure Echocardiogram showed ejection fraction of 10% EPS cardiology evaluation for LifeVest (2) Thrombocytopenia Current Visit: Yes Status: Acute Comment: r/o Secondary to TTP Transfuse fresh frozen plasma every 8 hours and once patient stabilizes restart plasmapheresis Attending/Attestation - Attestation I have personally seen and examined this patient.: Yes I have fully participated in the care of the patient.: Yes I have reviewed all pertinent clinical information: Yes Notes (Text): 07/30/16 17:32 Patient seen and examined in the intensive care unit. Remained intubated, tolerating CPAP, requiring high FiO2 Platelet count improving Continue hemodialysis
[2016-07-30 06:52] LABS: BASO % 0.1 % (0.0-2.0); EOS # 0.1 K/uL (0.0-0.7); EOS % 0.5 % (0.0-4.0); HEMOGLOBIN 11.1 g/dL (11.0-16.0); LYMPH # 0.3 K/uL (1.0-4.3); LYMPH % 2.7 % (20.0-40.0); MEAN CELL VOLUME 99.8 fL (81.0-99.0); MEAN CORPUSCULAR HEMOGLOBIN 32.3 pg (27.0-31.0); MEAN CORPUSCULAR HGB CONC 32.3 g/dL (33.0-37.0); MEAN PLATELET VOLUME 10.8 fL (7.2-11.7); MONO # 1.1 K/uL (0.0-0.8); MONO % 8.5 % (0.0-10.0); NEUT # 10.9 K/uL (1.8-7.0); NEUT % 88.2 % (50.0-75.0); NRBC % 0.4 % (0.0-2.0); RBC 3.44 Mil/uL (3.80-5.20); RED CELL DISTRIBUTION WIDTH 18.2 % (11.5-14.5); WHITE BLOOD COUNT 12.4 K/uL (4.8-10.8)
[2016-07-30 07:00] LABS: ALBUMIN 3.1 g/dL (3.5-5.0)
[2016-07-30 07:04] LABS: CALCIUM 7.4 mg/dl (8.6-10.4); PLATELET COUNT 129 K/uL (130-400)
[2016-07-30 07:10] LABS: ALB/GLOB RATIO 1.2 (1.0-2.1)
--- NOTE | 2016-07-30 08:35 | RAD ---
HISTORY: intubated COMPARISON: 07/29/2016 FINDINGS: LUNGS: Possibly possible air bronchograms at right base. Followup to exclude pneumonia. PLEURA: Probable very small bilateral pleural effusion. No pneumothorax. CARDIOVASCULAR: Right internal jugular central venous catheter, endotracheal tube and nasogastric tube all unchanged. No congestive change. OSSEOUS STRUCTURES: No significant abnormalities. VISUALIZED UPPER ABDOMEN: Normal. OTHER FINDINGS: None. IMPRESSION: Possible early infiltrate right lung base. Followup advised. Very small bilateral pleural effusion. Lines and tubes unchanged.
[2016-07-30 08:36] LABS: ANISOCYTOSIS SLIGHT; BANDS 1 % (0-2); LYMPHOCYTE 1 % (20-40); METAMYELOCYTE 1 % (0-0); MICROCYTOSIS SLIGHT; MONOCYTE 10 % (0-10); NEUTROPHIL 87 % (50-75); PLATELET ESTIMATE SLIGHTLY DECREASED (NORMAL); POIKILOCYTOSIS SLIGHT; TOTAL CELLS COUNTED 100
[2016-07-30 08:37] LABS: HYPOCHROMIC SLIGHT
--- NOTE | 2016-07-30 08:51 | CP.PCM.PN ---
Subjective - Date & Time of Evaluation Date of Evaluation: 07/29/16 Time of Evaluation: 08:49 - Subjective Subjective: no change clinically Pt being weaned 0ff the vent no bleeding Platelet stable no petechiae Objective - Vital Signs/Intake and Output Vital Signs (last 24 hours): Temp Pulse Resp BP Pulse Ox 99.5 F 71 14 146/78 97 07/30/16 08:00 07/30/16 08:00 07/30/16 08:00 07/30/16 08:00 07/30/16 08:00 Intake and Output: 07/30/16 07/30/16 06:59 18:59 Intake Total 698.0 83.0 Output Total 1090 225 Balance -392.0 -142.0 - Medications Medications: Current Medications Albuterol/Ipratropium (Duoneb 3 Mg/0.5 Mg (3 Ml) Ud) 3 ml INH RQ6 [facility] Last Admin: 07/30/16 08:12 Dose: 3 ml Carvedilol (Coreg) 3.125 mg PO BID [facility] Last Admin: 07/29/16 17:48 Dose: 3.125 mg Dexamethasone (Decadron Inj) 4 mg IV Q12 JESSI Last Admin: 07/29/16 23:08 Dose: 4 mg Famotidine (Pepcid) 20 mg PO DAILY JESSI Furosemide (Lasix) 60 mg IVP Q12 JESSI Last Admin: 07/29/16 23:09 Dose: 60 mg Hydralazine HCl (Apresoline) 10 mg PO Q8 [facility] Last Admin: 07/30/16 05:57 Dose: 10 mg Piperacillin Sod/Tazobactam Sod (Zosyn 2.25 Gm Iv Premix) 2.25 gm in 50 mls @ 100 mls/hr IVPB Q6H [facility] Last Admin: 07/30/16 05:59 Dose: 100 mls/hr Metronidazole (Flagyl) 500 mg in 100 mls @ 100 mls/hr IVPB Q8 [facility] Last Admin: 07/30/16 05:57 Dose: 100 mls/hr Dexmedetomidine HCl 200 mcg/ (Sodium Chloride) 50 mls @ 3.47 mls/hr IV TITR PRN ; Protocol; 0.2 MCG/KG/HR PRN Reason: Sedation Last Admin: 07/29/16 05:37 Dose: 0.2 mcg/kg/hr, 3.47 mls/hr Insulin Aspart (Novolog) 0 unit SC Q6H JESSI PRN Reason: Protocol Last Admin: 07/30/16 06:05 Dose: 4 unit Insulin Glargine (Lantus) 10 unit SC HS [facility] Last Admin: 07/29/16 23:12 Dose: 10 units Midazolam HCl (Versed Inj) 2 mg IVP Q3 PRN Last Admin: 07/28/16 17:23 Dose: 2 mg Nifedipine (Procardia) 10 mg PO BID [facility] Last Admin: 07/29/16 17:49 Dose: 10 mg - Labs Labs: 07/30/16 06:23 07/30/16 06:23 PT 11.4 SECONDS (9.7-12.2) 07/29/16 06:09 INR 1.0 07/29/16 06:09 APTT 28 SECONDS (21-34) 07/29/16 06:09 - Constitutional Appears: Chronically Ill - Head Exam Head Exam: NORMAL INSPECTION - Eye Exam Eye Exam: absent: Scleral icterus - ENT Exam Additional comments: intubated - Neck Exam Neck Exam: Full ROM - Respiratory Exam Respiratory Exam: NORMAL BREATHING PATTERN - Cardiovascular Exam Cardiovascular Exam: REGULAR RHYTHM - GI/Abdominal Exam GI & Abdominal Exam: Soft - Extremities Exam Extremities Exam: absent: Calf Tenderness, Pedal Edema - Neurological Exam Additional comments: sedated Assessment and Plan - Assessment and Plan (Free Text) Assessment: Respiratory failure Possible TTP HTN ESRD Plan: Plasmapharesis to be dc'd Cont weaning off vent Cont meds Prognosis guarded
[2016-07-30] MEDS: Dexmedetomidine Hydrochloride 200 MCG in Sodium Chloride 0.9% 48 ML IV PRN (09:05)
[2016-07-30] MEDS: Dexamethasone 4 mg/1 ml IV SCH ×2 (09:12→21:38)
--- NOTE | 2016-07-30 09:28 | CP.PCM.PN ---
Subjective - Date & Time of Evaluation Date of Evaluation: 07/30/16 Time of Evaluation: 09:28 - Subjective Subjective: pt seen and examined, follow up consult is dictated #[id number] seen in hd Objective - Vital Signs/Intake and Output Vital Signs (last 24 hours): Temp Pulse Resp BP Pulse Ox 99.5 F 71 14 146/78 97 07/30/16 08:00 07/30/16 08:00 07/30/16 08:00 07/30/16 08:00 07/30/16 08:00 Intake and Output: 07/30/16 07/30/16 06:59 18:59 Intake Total 748.0 83.0 Output Total 1090 225 Balance -342.0 -142.0 - Medications Medications: Current Medications Albuterol/Ipratropium (Duoneb 3 Mg/0.5 Mg (3 Ml) Ud) 3 ml INH RQ6 [facility] Last Admin: 07/30/16 08:12 Dose: 3 ml Carvedilol (Coreg) 3.125 mg PO BID [facility] Last Admin: 07/30/16 09:07 Dose: Not Given Dexamethasone (Decadron Inj) 4 mg IV Q12 [facility] Last Admin: 07/30/16 09:12 Dose: 4 mg Famotidine (Pepcid) 20 mg PO DAILY [facility] Last Admin: 07/30/16 09:10 Dose: 20 mg Furosemide (Lasix) 60 mg IVP Q12 [facility] Last Admin: 07/29/16 23:09 Dose: 60 mg Hydralazine HCl (Apresoline) 10 mg PO Q8 [facility] Last Admin: 07/30/16 05:57 Dose: 10 mg Piperacillin Sod/Tazobactam Sod (Zosyn 2.25 Gm Iv Premix) 2.25 gm in 50 mls @ 100 mls/hr IVPB Q6H [facility] Last Admin: 07/30/16 05:59 Dose: 100 mls/hr Metronidazole (Flagyl) 500 mg in 100 mls @ 100 mls/hr IVPB Q8 [facility] Last Admin: 07/30/16 05:57 Dose: 100 mls/hr Dexmedetomidine HCl 200 mcg/ (Sodium Chloride) 50 mls @ 3.47 mls/hr IV TITR PRN ; Protocol; 0.2 MCG/KG/HR PRN Reason: Sedation Last Admin: 06/21/17 09:05 Dose: 0.08 mcg/kg/hr, 1.5 mls/hr Potassium Chloride (Potassium Chloride 10 Meq/100 Ml) 10 meq in 100 mls @ 100 mls/hr IVPB ONCE ONE Stop: 07/30/16 09:53 Last Admin: 07/30/16 09:10 Dose: 100 mls/hr Insulin Aspart (Novolog) 0 unit SC Q6H [facility] PRN Reason: Protocol Last Admin: 07/30/16 06:05 Dose: 4 unit Insulin Glargine (Lantus) 10 unit SC HS [facility] Last Admin: 07/29/16 23:12 Dose: 10 units Midazolam HCl (Versed Inj) 2 mg IVP Q3 PRN Last Admin: 07/28/16 17:23 Dose: 2 mg Nifedipine (Procardia) 10 mg PO BID [facility] Last Admin: 07/30/16 09:08 Dose: Not Given - Labs Labs: 07/30/16 06:23 07/30/16 06:23 PT 11.4 SECONDS (9.7-12.2) 07/29/16 06:09 INR 1.0 07/29/16 06:09 APTT 28 SECONDS (21-34) 07/29/16 06:09
--- NOTE | 2016-07-30 10:05 | CP.PCM.PN ---
<Dmitry Kebede - Last Filed: 07/30/16 10:01> Subjective - Date & Time of Evaluation Date of Evaluation: 07/30/16 Time of Evaluation: 10:01 - Subjective Subjective: Progress Note for Dr. Jules Pt seen and examined at bedside. Pt remains intubated after being on weaning trial during previous day. Pt became too restless when weaned off of sedation. ROS unobtainable due to pt acute condition. Objective - Vital Signs/Intake and Output Vital Signs (last 24 hours): Temp Pulse Resp BP Pulse Ox 99.4 F 68 14 129/73 95 07/30/16 09:20 07/30/16 09:20 07/30/16 09:20 07/30/16 09:50 07/30/16 09:20 Intake and Output: 07/30/16 07/30/16 06:59 18:59 Intake Total 748.0 83.0 Output Total 1090 225 Balance -342.0 -142.0 - Medications Medications: Current Medications Albuterol/Ipratropium (Duoneb 3 Mg/0.5 Mg (3 Ml) Ud) 3 ml INH RQ6 [facility] Last Admin: 07/30/16 08:12 Dose: 3 ml Carvedilol (Coreg) 3.125 mg PO BID [facility] Last Admin: 07/30/16 09:07 Dose: Not Given Dexamethasone (Decadron Inj) 4 mg IV Q12 [facility] Last Admin: 07/30/16 09:12 Dose: 4 mg Famotidine (Pepcid) 20 mg PO DAILY [facility] Last Admin: 07/30/16 09:10 Dose: 20 mg Furosemide (Lasix) 60 mg IVP Q12 [facility] Last Admin: 07/29/16 23:09 Dose: 60 mg Hydralazine HCl (Apresoline) 10 mg PO Q8 [facility] Last Admin: 07/30/16 05:57 Dose: 10 mg Piperacillin Sod/Tazobactam Sod (Zosyn 2.25 Gm Iv Premix) 2.25 gm in 50 mls @ 100 mls/hr IVPB Q6H [facility] Last Admin: 07/30/16 05:59 Dose: 100 mls/hr Metronidazole (Flagyl) 500 mg in 100 mls @ 100 mls/hr IVPB Q8 [facility] Last Admin: 06/21/17 05:57 Dose: 100 mls/hr Dexmedetomidine HCl 200 mcg/ (Sodium Chloride) 50 mls @ 3.47 mls/hr IV TITR PRN ; Protocol; 0.2 MCG/KG/HR PRN Reason: Sedation Last Admin: 07/30/16 09:05 Dose: 0.08 mcg/kg/hr, 1.5 mls/hr Insulin Aspart (Novolog) 0 unit SC Q6H [facility] PRN Reason: Protocol Last Admin: 07/30/16 06:05 Dose: 4 unit Insulin Glargine (Lantus) 10 unit SC HS [facility] Last Admin: 07/29/16 23:12 Dose: 10 units Midazolam HCl (Versed Inj) 2 mg IVP Q3 PRN Last Admin: 07/28/16 17:23 Dose: 2 mg Nifedipine (Procardia) 10 mg PO BID [facility] Last Admin: 07/30/16 09:08 Dose: Not Given - Labs Labs: 07/30/16 06:23 07/30/16 06:23 PT 11.4 SECONDS (9.7-12.2) 07/29/16 06:09 INR 1.0 07/29/16 06:09 APTT 28 SECONDS (21-34) 07/29/16 06:09 - Constitutional Appears: Toxic - Head Exam Head Exam: ATRAUMATIC, NORMAL INSPECTION, NORMOCEPHALIC - ENT Exam ENT Exam: Mucous Membranes Dry - Respiratory Exam Respiratory Exam: Decreased Breath Sounds, Rales. absent: Wheezes - Cardiovascular Exam Cardiovascular Exam: RRR, +S1, +S2 - GI/Abdominal Exam GI & Abdominal Exam: Soft, Normal Bowel Sounds. absent: Tenderness - Extremities Exam Extremities Exam: Pedal Edema. absent: Calf Tenderness - Skin Skin Exam: Normal Color, Warm Assessment and Plan (1) CHF (congestive heart failure) Assessment & Plan: EF 10-15% Life vest will be given to pt once able to be transferred to general medical floors Continue aggressive medical regimen Status: Acute <Geo Jules - Last Filed: 07/31/16 15:23> Objective - Vital Signs/Intake and Output Vital Signs (last 24 hours): Temp Pulse Resp BP Pulse Ox 98.3 F 74 15 135/70 96 07/31/16 13:15 07/31/16 13:00 07/31/16 13:00 07/31/16 12:57 07/31/16 13:00 Intake and Output: 07/31/16 07/31/16 06:59 18:59 Intake Total 687.5 287.5 Output Total 240 40 Balance 447.5 247.5 - Medications Medications: Current Medications Albuterol/Ipratropium (Duoneb 3 Mg/0.5 Mg (3 Ml) Ud) 3 ml INH RQ6 [facility] Last Admin: 07/31/16 14:46 Dose: 3 ml Carvedilol (Coreg) 3.125 mg PO BID [facility] Last Admin: 07/31/16 09:51 Dose: Not Given Dexamethasone (Decadron Inj) 4 mg IV Q12 [facility] Last Admin: 07/31/16 09:49 Dose: 4 mg Famotidine (Pepcid) 20 mg PO DAILY [facility] Last Admin: 07/31/16 09:49 Dose: 20 mg Furosemide (Lasix) 60 mg IVP Q12 [facility] Last Admin: 07/29/16 23:09 Dose: 60 mg Hydralazine HCl (Apresoline) 10 mg PO Q8 [facility] Last Admin: 07/31/16 13:34 Dose: 10 mg Piperacillin Sod/Tazobactam Sod (Zosyn 2.25 Gm Iv Premix) 2.25 gm in 50 mls @ 100 mls/hr IVPB Q6H [facility] Last Admin: 07/31/16 13:30 Dose: 100 mls/hr Metronidazole (Flagyl) 500 mg in 100 mls @ 100 mls/hr IVPB Q8 [facility] Last Admin: 07/31/16 14:13 Dose: 100 mls/hr Dexmedetomidine HCl 200 mcg/ (Sodium Chloride) 50 mls @ 3.47 mls/hr IV TITR PRN ; Protocol; 0.2 MCG/KG/HR PRN Reason: Sedation Last Admin: 07/30/16 09:05 Dose: 0.08 mcg/kg/hr, 1.5 mls/hr Insulin Aspart (Novolog) 0 unit SC Q6H [facility] PRN Reason: Protocol Last Admin: 07/31/16 12:19 Dose: Not Given Insulin Glargine (Lantus) 10 unit SC HS [facility] Last Admin: 07/30/16 21:32 Dose: 10 units Midazolam HCl (Versed Inj) 2 mg IVP Q3 PRN Last Admin: 07/28/16 17:23 Dose: 2 mg Nifedipine (Procardia) 10 mg PO BID [facility] Last Admin: 07/31/16 09:52 Dose: Not Given - Labs Labs: 07/31/16 06:27 07/31/16 06:27 PT 11.4 SECONDS (9.7-12.2) 07/29/16 06:09 INR 1.0 07/29/16 06:09 APTT 28 SECONDS (21-34) 07/29/16 06:09 Attending/Attestation - Attestation I have personally seen and examined this patient.: Yes I have fully participated in the care of the patient.: Yes I have reviewed all pertinent clinical information, including history, physical exam and plan: Yes Notes (Text): 07/31/16 15:23 weaning trial in progress continue supportive care
--- NOTE | 2016-07-30 10:31 | PN ---
DATE: 07/30/2016 The patient is located in ICU bed 6, on ventilator. REQUESTED BY: Dr. Anthony Mclaughlin REASON FOR RENAL CONSULTATION: Acute renal failure, for continuation of the hemodialysis. The patient is an 80-year-old elderly female from [facility] who was admitted [facility] with chief complaints of nausea, vomiting, diarrhea, abdominal pain, increased BUN and creatinine , low platelets about 58,000 and possible TTP, was started on FFP without significant improvement. S ubsequently, patient was started on plasmapheresis and the hospital course complicated by respiratory failure and worsening renal function. The patient was started on hemodialysis on 07/28/2016. The p atient still remains intubated and arousable, not in distress. PHYSICAL EXAMINATION: VITAL SIGNS: This morning as follows: Blood pressure 146/78, pulse 71, respirations 14, temperature 99.5, saturation 97%, FiO2 70%, height 5 feet 4 inches and weight is 153 pounds. GENERAL: The patient is an 80-year-old elderly female, on ventilator. HEENT: Pupils normal, react to light and accommodation. Conjunctivae pink. Sclerae anicteric. Int ubated. NECK: No thyroid enlargement. LUNGS: Symmetric on both sides. Bilateral breath sounds present. Occasional basal crackles present . CARDIOVASCULAR: [place] at the fifth intercostal space, midclavicular line. S1 and S2 audible. No mur mur, no gallop. ABDOMEN: Normal in appearance, soft, tympanic. No guarding, no rigidity, no hepatosplenomegaly. CENTRAL NERVOUS SYSTEM: The patient is on ventilator, arousable. EXTREMITIES: No cyanosis, no clubbing, no edema. Sensory and motor systems grossly within normal li mits. INTAKE AND OUTPUT: Intake is 1325, output is 1900. CURRENT MEDICATIONS: Include as follows: Hydralazine 10 mg p.o. q. 8 hours, Coreg 3.125 mg p.o. b.i .d. and Decadron 4 mg IV q. 12 hours and Precedex and DuoNeb inhaler, Flagyl 500 q. 8 hours, Lantus i nsulin for sliding scale, Lasix 60 mg IV q. 12 and Pepcid 20 mg p.o. daily and KCl 10 mEq x 1 and Pro cardia 10 mg p.o. b.i.d., Versed 2 mg IV q. 3 hours p.r.n. and Zosyn 2.25 grams q. 6 hours. LABORATORY DATA: Include as follows: As of 07/30/2016, WBC 12.4, hemoglobin 11.1, hematocrit is 34. 3, platelet is 129. ABG: pH 7.48, pCO2 48, pO2 92, bicarb is 33.3 and saturation 99.2. Vent settin gs: AC 14, tidal volume 450, FiO2 70%, PEEP of 5. Sodium 139, potassium 3.3, chloride 92, CO2 34, B UN 82, creatinine 4.1, glucose 181, calcium 7.4, phosphorus 6.0, magnesium 2.0 and total bili 0.7, T 20, ALT 45, alkaline phosphatase 194, total protein 5.6, albumin is 3.1. Chest x-ray as of 07/30/2016, impression: Right internal jugular central venous catheter, endotrache al tube and nasogastric tube all unchanged, no congestive changes. Impression: infiltrate rig ht lung base, followup advised, very small bilateral pleural effusions, lines and tubes unchanged. 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 Hematology note appreciated and agreed to hold on to the plasmapheresis at this time. 1. Nonoliguric acute renal failure, most likely secondary to acute tubular necrosis, cannot rule out thrombotic microangiopathy secondary to thrombotic thrombocytopenic purpura. Continue hemodialysis 3 times a week, Thursday, Thursday, Thursday. 2. Respiratory failure, secondary to pneumonia and congestive heart failure, improving. We will try to ultrafiltrate as much as patient can tolerate. 3. Thrombotic thrombocytopenic purpura, improving platelets. Today is 129. Continue to hold plasma pheresis. 4. Cardiomyopathy. 5. Hypertension. Follow with cardiology and will follow with you. Thank you for allowing me to participate in your patient's care. Case discussed with Dr. Michael reilly in rounds. Horacio Graham MD cc: [id number] TT: 07/30/2016 10:30:47 Confirmation # [id number] Dictation # [id number] en
--- NOTE | 2016-07-30 13:49 | CP.PCM.PN ---
Subjective - Date & Time of Evaluation Date of Evaluation: 07/30/16 Time of Evaluation: 09:00 - Subjective Subjective: INTUBATED IN ICU FAILED WEANING MAY NEED TRACH / PEG POSSIBLE LTACH CONT RX FOR NOW Objective - Vital Signs/Intake and Output Vital Signs (last 24 hours): Temp Pulse Resp BP Pulse Ox 98.3 F 64 16 109/70 95 07/30/16 13:00 07/30/16 13:00 07/30/16 13:00 07/30/16 13:00 07/30/16 13:00 Intake and Output: 07/30/16 07/30/16 06:59 18:59 Intake Total 748.0 467.5 Output Total 1090 415 Balance -342.0 52.5 - Medications Medications: Current Medications Albuterol/Ipratropium (Duoneb 3 Mg/0.5 Mg (3 Ml) Ud) 3 ml INH RQ6 [facility] Last Admin: 07/30/16 08:12 Dose: 3 ml Carvedilol (Coreg) 3.125 mg PO BID [facility] Last Admin: 07/30/16 09:07 Dose: Not Given Dexamethasone (Decadron Inj) 4 mg IV Q12 [facility] Last Admin: 07/30/16 09:12 Dose: 4 mg Famotidine (Pepcid) 20 mg PO DAILY [facility] Last Admin: 07/30/16 09:10 Dose: 20 mg Furosemide (Lasix) 60 mg IVP Q12 [facility] Last Admin: 07/29/16 23:09 Dose: 60 mg Hydralazine HCl (Apresoline) 10 mg PO Q8 [facility] Last Admin: 07/30/16 05:57 Dose: 10 mg Piperacillin Sod/Tazobactam Sod (Zosyn 2.25 Gm Iv Premix) 2.25 gm in 50 mls @ 100 mls/hr IVPB Q6H [facility] Last Admin: 07/30/16 12:16 Dose: 100 mls/hr Metronidazole (Flagyl) 500 mg in 100 mls @ 100 mls/hr IVPB Q8 [facility] Last Admin: 07/30/16 05:57 Dose: 100 mls/hr Dexmedetomidine HCl 200 mcg/ (Sodium Chloride) 50 mls @ 3.47 mls/hr IV TITR PRN ; Protocol; 0.2 MCG/KG/HR PRN Reason: Sedation Last Admin: 07/30/16 09:05 Dose: 0.08 mcg/kg/hr, 1.5 mls/hr Insulin Aspart (Novolog) 0 unit SC Q6H [facility] PRN Reason: Protocol Last Admin: 07/30/16 12:15 Dose: 4 unit Insulin Glargine (Lantus) 10 unit SC HS [facility] Last Admin: 07/29/16 23:12 Dose: 10 units Midazolam HCl (Versed Inj) 2 mg IVP Q3 PRN Last Admin: 07/28/16 17:23 Dose: 2 mg Nifedipine (Procardia) 10 mg PO BID [facility] Last Admin: 07/30/16 09:08 Dose: Not Given - Labs Labs: 07/30/16 06:23 07/30/16 06:23 PT 11.4 SECONDS (9.7-12.2) 07/29/16 06:09 INR 1.0 07/29/16 06:09 APTT 28 SECONDS (21-34) 07/29/16 06:09 - Constitutional Appears: Confused, Cachectic, Chronically Ill - Eye Exam Eye Exam: PERRL - ENT Exam ENT Exam: Mucous Membranes Dry, Normal External Ear Exam - Neck Exam Neck Exam: absent: Lymphadenopathy - Respiratory Exam Respiratory Exam: Decreased Breath Sounds, Rhonchi - Cardiovascular Exam Cardiovascular Exam: REGULAR RHYTHM - GI/Abdominal Exam GI & Abdominal Exam: Distended, Soft. absent: Tenderness - Rectal Exam Rectal Exam: Deferred - Exam Exam: NORMAL INSPECTION Assessment and Plan (1) Acute respiratory failure requiring reintubation Status: Acute (2) CHF (congestive heart failure) Status: Acute (3) Dehydration Status: Acute (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
--- NOTE | 2016-07-30 16:28 | VASCLAB ---
PROCEDURE: Lower Extremity Venous Duplex Exam. HISTORY: Leg pain PRIORS: None. TECHNIQUE: Bilateral common femoral, femoral, popliteal and posterior tibial, peroneal and great saphenous veins were evaluated. Flow was assessed with color Doppler, compressibility, assessment of phasic flow and augmentation response. Report prepared by GENNARO Ruelas, RVT FINDINGS: RIGHT: 1. Common Femoral Vein: 1.1. Compressibility - Fully compressible: Thrombus - None : Flow - Phasic: Augmentation -Normal: Reflux - None. 2. Femoral Vein: 2.1. Compressibility - Fully compressible: Thrombus - None : Flow - Phasic: Augmentation -Normal: Reflux - None. 3. Popliteal Vein: 3.1. Compressibility - Fully compressible: Thrombus - None : Flow - Phasic: Augmentation -Normal: Reflux - None. 4. Posterior Tibial Vein: 4.1. Compressibility - Fully compressible: Thrombus - None: Flow - Phasic: Augmentation -Normal: Reflux - None. 5. Peroneal Vein: 5.1. Compressibility - Fully compressible: Thrombus - None: Flow - Phasic: Augmentation -Normal: Reflux - None. 6. Great Saphenous Vein: 6.1. Compressibility - Fully compressible: Thrombus - None: Flow - Phasic: Augmentation - Normal: Reflux - None. LEFT: 1. Common Femoral Vein: 1.1. Compressibility - Fully compressible: Thrombus - None: Flow - Phasic: Augmentation -Normal: Reflux - None. 2. Femoral Vein: 2.1. Compressibility - Fully compressible: Thrombus - None: Flow - Phasic: Augmentation -Normal: Reflux - None. 3. Popliteal Vein: 3.1. Compressibility - Fully compressible: Thrombus - None : Flow - Phasic: Augmentation -Normal: Reflux - None. 4. Posterior Tibial Vein: 4.1. Compressibility - Fully compressible: Thrombus - None: Flow - Phasic: Augmentation -Normal: Reflux - None. 5. Peroneal Vein: 5.1. Compressibility - Fully compressible: Thrombus - None: Flow - Phasic: Augmentation -Normal: Reflux - None. 6. Great Saphenous Vein: 6.1. Compressibility - Fully compressible: Thrombus - None: Flow - Phasic: Augmentation - Normal: Reflux - None. OTHER FINDINGS: Right: None significant. Left: None significant. IMPRESSION: Right: No evidence of deep or superficial vein thrombosis of the right lower extremity. Normal valve function noted of the right side. Left: No evidence of deep or superficial vein thrombosis of the left lower extremity. Normal valve function noted of the left side.
[2016-07-30] MEDS: (Lantus) Insulin Glargine, Recombinant SC SCH (21:32)
[2016-07-31] MEDS: Piperacill/Tazo 2.25gm in Dex 2.25 GM/50 ML BAG IVPB SCH ×4 (01:00→18:04)
[2016-07-31] MEDS: (Novolog) Insulin Aspart, Recombinant 100 u/ml 10 ml vial SC SCH ×4 (01:00→18:02)
[2016-07-31] MEDS: Albuterol-Ipratrop 3 mg / 0.5 (3 ml) UD INH SCH ×4 (01:30→20:37)
[2016-07-31] MEDS: metroNIDAZOLE IV 500 mg/100 ml 500 MG/100 ML BAG IVPB SCH ×3 (05:00→21:33)
[2016-07-31 05:24] LABS: ARTERIAL BLOOD GAS HCO3 31.2 mmol/L (21-28); ARTERIAL BLOOD GAS HEMOGLOBIN 10.7 g/dL (11.7-17.4); ARTERIAL BLOOD GAS O2 SAT 99.3 % (95-98); ARTERIAL BLOOD GAS PCO2 41 mm/Hg (35-45); ARTERIAL BLOOD GAS PO2 100 mm/Hg (80-100); ARTERIAL BLOOD GAS TCO2 33.3 mmol/L (22-28)
--- NOTE | 2016-07-31 06:29 | CP.CCUPN ---
<Ruby Donohue - Last Filed: 07/31/16 15:23> CCU Subjective - Physician Review Subjective (Free Text): 07/31/16 15:23 Patient seen and examined Family at bedside No acute events overnight as per nursing Patient intubated on vent- tolerating CPAP + PS (60%, 5, 10) since this AM Patient had HD yesterday Patient is alert and responds to name Tolerating feeds novasource renal @ 40cc/hr no residuals ROS unobtainable CCU Objective - Vital Signs / Intake & Output Vital Signs (Last 4 hours): Vital Signs Pulse Resp BP Pulse Ox 07/31/16 06:00 67 14 98 07/31/16 05:57 67 15 108/56 L 97 07/31/16 05:00 67 15 98 07/31/16 04:57 68 14 108/60 98 07/31/16 04:00 68 17 98 07/31/16 03:57 68 14 112/60 97 07/31/16 03:00 70 16 97 07/31/16 02:57 69 14 107/59 L 98 Intake and Output (Last 8hrs): Intake & Output 07/30/16 07/30/16 07/31/16 14:59 22:59 06:59 Intake Total 639.0 317.5 Output Total 440 120 Balance 199.0 197.5 Intake: Intake, IV Amount 259.0 57.5 Right Distal Port 250 50 Internal Jugular Right Proximal Port 9.0 7.5 Internal Jugular Tube Feeding 320 200 Other 60 60 Output: Urine 440 120 Urethral (Sharp) 440 120 Other: # Bowel Movements 1 - Physical Exam Head: Positive for: Atraumatic, Normocephalic Pupils: Positive for: PERRL Conjunctiva: Positive for: Normal. Negative for: Injected, Icteric Mouth: Positive for: Moist Mucous Membranes Neck: Negative for: JVD Respiratory/Chest: Positive for: Good Air Exchange, Rhonchi. Negative for: Accessory Muscle Use, Wheezes, Rales Cardiovascular: Positive for: Regular Rate and Rhythm, Normal S1, S2. Negative for: Murmurs Abdomen: Positive for: Normal Bowel Sounds. Negative for: Tenderness, Distention Upper Extremity: Positive for: Normal Inspection. Negative for: Cyanosis, Edema Lower Extremity: Positive for: Normal Inspection. Negative for: Edema Neurological: Negative for: Speech Normal Skin: Positive for: Warm, Dry, Rashes (resolving) Psychiatric: Positive for: Alert. Negative for: Oriented x 3 - Medications Active Medications: Active Medications Generic Name Dose Route Start Last Admin Trade Name Freq PRN Reason Stop Dose Admin Albuterol/Ipratropium 3 ml 07/23/16 08:00 07/31/16 01:30 Duoneb 3 Mg/0.5 Mg (3 Ml) Ud INH 3 ml RQ6 JESSI Administration Carvedilol 3.125 mg 07/29/16 10:12 07/30/16 18:23 Coreg PO 3.125 mg BID JESSI Administration Dexamethasone 4 mg 07/28/16 10:00 07/30/16 21:38 Decadron Inj IV 4 mg Q12 JESSI Administration Famotidine 20 mg 07/30/16 10:00 07/30/16 09:10 Pepcid PO 20 mg DAILY JESSI Administration Furosemide 60 mg 07/28/16 08:29 07/29/16 23:09 Lasix IVP 60 mg Q12 JESSI Administration Hydralazine HCl 10 mg 07/28/16 08:30 07/30/16 21:39 Apresoline PO 10 mg Q8 JESSI Administration Piperacillin Sod/Tazobactam Sod 2.25 gm in 50 mls @ 100 mls/hr 07/23/16 13:00 07/31/16 01:00 Zosyn 2.25 Gm Iv Premix IVPB 100 mls/hr Q6H JESSI Administration Metronidazole 500 mg in 100 mls @ 100 mls/hr 07/24/16 22:00 07/30/16 21:33 Flagyl IVPB 100 mls/hr Q8 JESSI Administration Dexmedetomidine HCl 200 mcg/ 50 mls @ 3.47 mls/hr 07/28/16 17:15 07/30/16 09: 05 Sodium Chloride IV 0.08 mcg/kg/hr TITR PRN 1.5 mls/hr Sedation Administration Protocol 0.2 MCG/KG/HR Insulin Aspart 0 unit 07/29/16 12:00 07/31/16 01:00 Novolog SC 4 unit Q6H JESSI Administration Protocol Insulin Glargine 10 unit 07/29/16 22:00 07/30/16 21:32 Lantus SC 10 units HS JESSI Administration Midazolam HCl 2 mg 07/28/16 10:00 07/28/16 17:23 Versed Inj IVP 2 mg Q3 PRN Administration Nifedipine 10 mg 07/25/16 12:00 07/30/16 18:24 Procardia PO 10 mg BID JESSI Administration - Patient Studies Lab Studies: Microbiology Studies 07/30/16 Unknown Gram Stain - Final Trachasp 07/30/16 11:53 Ova and Parasite Concentrate Exam - Final Stool Lab Studies 07/31/16 07/31/16 07/31/16 Range/Units 05:14 04:31 00:15 WBC (4.8-10.8) K/uL RBC (3.80-5.20) Mil/uL Hgb (11.0-16.0) g/dL Hct (34.0-47.0) % MCV (81.0-99.0) fL MCH (27.0-31.0) pg MCHC (33.0-37.0) g/dL RDW (11.5-14.5) % Plt Count (130-400) K/uL MPV (7.2-11.7) fL Neut % (Auto) (50.0-75.0) % Lymph % (Auto) (20.0-40.0) % [place] % (Auto) (0.0-10.0) % Eos % (Auto) (0.0-4.0) % Baso % (Auto) (0.0-2.0) % Neut # (1.8-7.0) K/uL Lymph # (1.0-4.3) K/uL [place] # (0.0-0.8) K/uL Eos # (0.0-0.7) K/uL Baso # (0.0-0.2) K/uL Neutrophils % (Manual) (50-75) % Band Neutrophils % (0-2) % Lymphocytes % (Manual) (20-40) % Monocytes % (Manual) (0-10) % Metamyelocytes % (0-0) % Platelet Estimate (NORMAL) Hypochromasia (manual) Poikilocytosis (manual Anisocytosis (manual) Microcytosis (manual) Haptoglobin (43-212) mg/dL Puncture Site Rb pCO2 41 (35-45) mm/Hg pO2 100 (80-100) mm/Hg HCO3 31.2 H (21-28) mmol/L ABG pH 7.50 H (7.35-7.45) ABG Total CO2 33.3 H (22-28) mmol/L ABG O2 Saturation 99.3 H (95-98) % ABG Base Excess 8.1 H (-2.0-3.0) mmol/L ABG Hemoglobin 10.7 L (11.7-17.4) g/dL ABG Carboxyhemoglobin 1.8 H (0.5-1.5) % POC ABG HHb (Measured) 0.7 (0.0-5.0) % ABG Methemoglobin 1.7 (0.0-3.0) % Braxton Test Na A-a O2 Difference 277.0 mm/Hg Respiratory Index 2.8 Hgb O2 Saturation 95.8 (95.0-98.0) % Mechanical Rate 14 FiO2 60.0 % Tidal Volume 450 PEEP 5 Sodium (132-148) mmol/L Potassium (3.6-5.2) mmol/L Chloride (98-107) mmol/L Carbon Dioxide (22-30) mmol/L Anion Gap (10-20) BUN (7-17) mg/dL Creatinine (0.7-1.2) MG/DL Est GFR ( Amer) Est GFR (Non-Af Amer) POC Glucose (mg/dL) 240 H 245 H (65-110) mg/dL Random Glucose (65-105) mg/dL Calcium (8.6-10.4) mg/dl Phosphorus (2.5-4.5) mg/dL Magnesium (1.6-2.3) mg/dL Total Bilirubin (0.2-1.3) mg/dL AST (14-36) U/L ALT (9-52) U/L Alkaline Phosphatase (38-126) U/L Total Protein (6.3-8.3) g/dL Albumin (3.5-5.0) g/dL Globulin (2.2-3.9) gm/dL Albumin/Globulin Ratio (1.0-2.1) C. difficile Ag & Toxin (NEGATIVE) 07/30/16 07/30/16 07/30/16 Range/Units 18:17 11:53 11:43 WBC (4.8-10.8) K/uL RBC (3.80-5.20) Mil/uL Hgb (11.0-16.0) g/dL Hct (34.0-47.0) % MCV (81.0-99.0) fL MCH (27.0-31.0) pg MCHC (33.0-37.0) g/dL RDW (11.5-14.5) % Plt Count (130-400) K/uL MPV (7.2-11.7) fL Neut % (Auto) (50.0-75.0) % Lymph % (Auto) (20.0-40.0) % [place] % (Auto) (0.0-10.0) % Eos % (Auto) (0.0-4.0) % Baso % (Auto) (0.0-2.0) % Neut # (1.8-7.0) K/uL Lymph # (1.0-4.3) K/uL [place] # (0.0-0.8) K/uL Eos # (0.0-0.7) K/uL Baso # (0.0-0.2) K/uL Neutrophils % (Manual) (50-75) % Band Neutrophils % (0-2) % Lymphocytes % (Manual) (20-40) % Monocytes % (Manual) (0-10) % Metamyelocytes % (0-0) % Platelet Estimate (NORMAL) Hypochromasia (manual) Poikilocytosis (manual Anisocytosis (manual) Microcytosis (manual) Haptoglobin (43-212) mg/dL Puncture Site pCO2 (35-45) mm/Hg pO2 (80-100) mm/Hg HCO3 (21-28) mmol/L ABG pH (7.35-7.45) ABG Total CO2 (22-28) mmol/L ABG O2 Saturation (95-98) % ABG Base Excess (-2.0-3.0) mmol/L ABG Hemoglobin (11.7-17.4) g/dL ABG Carboxyhemoglobin (0.5-1.5) % POC ABG HHb (Measured) (0.0-5.0) % ABG Methemoglobin (0.0-3.0) % Braxton Test A-a O2 Difference mm/Hg Respiratory Index Hgb O2 Saturation (95.0-98.0) % Mechanical Rate FiO2 % Tidal Volume PEEP Sodium (132-148) mmol/L Potassium (3.6-5.2) mmol/L Chloride (98-107) mmol/L Carbon Dioxide (22-30) mmol/L Anion Gap (10-20) BUN (7-17) mg/dL Creatinine (0.7-1.2) MG/DL Est GFR ( Amer) Est GFR (Non-Af Amer) POC Glucose (mg/dL) 216 H 231 H (65-110) mg/dL Random Glucose (65-105) mg/dL Calcium (8.6-10.4) mg/dl Phosphorus (2.5-4.5) mg/dL Magnesium (1.6-2.3) mg/dL Total Bilirubin (0.2-1.3) mg/dL AST (14-36) U/L ALT (9-52) U/L Alkaline Phosphatase (38-126) U/L Total Protein (6.3-8.3) g/dL Albumin (3.5-5.0) g/dL Globulin (2.2-3.9) gm/dL Albumin/Globulin Ratio (1.0-2.1) C. difficile Ag & Toxin Negative (NEGATIVE) 07/30/16 07/30/16 07/29/16 Range/Units 06:23 06:23 07:18 WBC 12.4 H (4.8-10.8) K/uL RBC 3.44 L (3.80-5.20) Mil/uL Hgb 11.1 (11.0-16.0) g/dL Hct 34.3 (34.0-47.0) % MCV 99.8 H (81.0-99.0) fL MCH 32.3 H (27.0-31.0) pg MCHC 32.3 L (33.0-37.0) g/dL RDW 18.2 H (11.5-14.5) % Plt Count 129 L D (130-400) K/uL MPV 10.8 (7.2-11.7) fL Neut % (Auto) 88.2 H (50.0-75.0) % Lymph % (Auto) 2.7 L (20.0-40.0) % [place] % (Auto) 8.5 (0.0-10.0) % Eos % (Auto) 0.5 (0.0-4.0) % Baso % (Auto) 0.1 (0.0-2.0) % Neut # 10.9 H (1.8-7.0) K/uL Lymph # 0.3 L (1.0-4.3) K/uL [place] # 1.1 H (0.0-0.8) K/uL Eos # 0.1 (0.0-0.7) K/uL Baso # 0.0 (0.0-0.2) K/uL Neutrophils % (Manual) 87 H (50-75) % Band Neutrophils % 1 (0-2) % Lymphocytes % (Manual) 1 L (20-40) % Monocytes % (Manual) 10 (0-10) % Metamyelocytes % 1 H (0-0) % Platelet Estimate Slightly decreased L (NORMAL) Hypochromasia (manual) Slight Poikilocytosis (manual Slight Anisocytosis (manual) Slight Microcytosis (manual) Slight Haptoglobin 62 (43-212) mg/dL Puncture Site pCO2 (35-45) mm/Hg pO2 (80-100) mm/Hg HCO3 (21-28) mmol/L ABG pH (7.35-7.45) ABG Total CO2 (22-28) mmol/L ABG O2 Saturation (95-98) % ABG Base Excess (-2.0-3.0) mmol/L ABG Hemoglobin (11.7-17.4) g/dL ABG Carboxyhemoglobin (0.5-1.5) % POC ABG HHb (Measured) (0.0-5.0) % ABG Methemoglobin (0.0-3.0) % Braxton Test A-a O2 Difference mm/Hg Respiratory Index Hgb O2 Saturation (95.0-98.0) % Mechanical Rate FiO2 % Tidal Volume PEEP Sodium 139 (132-148) mmol/L Potassium 3.3 L (3.6-5.2) mmol/L Chloride 92 L (98-107) mmol/L Carbon Dioxide 34 H (22-30) mmol/L Anion Gap 16 (10-20) BUN 82 H (7-17) mg/dL Creatinine 4.1 H (0.7-1.2) MG/DL Est GFR ( Amer) 13 Est GFR (Non-Af Amer) 10 POC Glucose (mg/dL) (65-110) mg/dL Random Glucose 181 H (65-105) mg/dL Calcium 7.4 L (8.6-10.4) mg/dl Phosphorus 6.0 H (2.5-4.5) mg/dL Magnesium 2.0 (1.6-2.3) mg/dL Total Bilirubin 0.7 (0.2-1.3) mg/dL AST 20 (14-36) U/L ALT 45 (9-52) U/L Alkaline Phosphatase 194 H D (38-126) U/L Total Protein 5.6 L (6.3-8.3) g/dL Albumin 3.1 L (3.5-5.0) g/dL Globulin 2.5 (2.2-3.9) gm/dL Albumin/Globulin Ratio 1.2 (1.0-2.1) C. difficile Ag & Toxin (NEGATIVE) Laboratory Results - last 24 hr 07/29/16 07/30/16 07/30/16 07:18 06:23 06:23 WBC 12.4 H RBC 3.44 L Hgb 11.1 Hct 34.3 MCV 99.8 H MCH 32.3 H MCHC 32.3 L RDW 18.2 H Plt Count 129 L D MPV 10.8 Neut % (Auto) 88.2 H Lymph % (Auto) 2.7 L [place] % (Auto) 8.5 Eos % (Auto) 0.5 Baso % (Auto) 0.1 Neut # 10.9 H Lymph # 0.3 L [place] # 1.1 H Eos # 0.1 Baso # 0.0 Neutrophils % (Manual) 87 H Band Neutrophils % 1 Lymphocytes % (Manual) 1 L Monocytes % (Manual) 10 Metamyelocytes % 1 H Platelet Estimate Slightly decreased L Hypochromasia (manual) Slight Poikilocytosis (manual Slight Anisocytosis (manual) Slight Microcytosis (manual) Slight Haptoglobin 62 Puncture Site pCO2 pO2 HCO3 ABG pH ABG Total CO2 ABG O2 Saturation ABG Base Excess ABG Hemoglobin ABG Carboxyhemoglobin POC ABG HHb (Measured) ABG Methemoglobin Braxton Test A-a O2 Difference Respiratory Index Hgb O2 Saturation Mechanical Rate FiO2 Tidal Volume PEEP Sodium 139 Potassium 3.3 L Chloride 92 L Carbon Dioxide 34 H Anion Gap 16 BUN 82 H Creatinine 4.1 H Est GFR ( Amer) 13 Est GFR (Non-Af Amer) 10 POC Glucose (mg/dL) Random Glucose 181 H Calcium 7.4 L Phosphorus 6.0 H Magnesium 2.0 Total Bilirubin 0.7 AST 20 ALT 45 Alkaline Phosphatase 194 H D Total Protein 5.6 L Albumin 3.1 L Globulin 2.5 Albumin/Globulin Ratio 1.2 C. difficile Ag & Toxin 07/30/16 07/30/16 07/30/16 11:43 11:53 18:17 WBC RBC Hgb Hct MCV MCH MCHC RDW Plt Count MPV Neut % (Auto) Lymph % (Auto) [place] % (Auto) Eos % (Auto) Baso % (Auto) Neut # Lymph # [place] # Eos # Baso # Neutrophils % (Manual) Band Neutrophils % Lymphocytes % (Manual) Monocytes % (Manual) Metamyelocytes % Platelet Estimate Hypochromasia (manual) Poikilocytosis (manual Anisocytosis (manual) Microcytosis (manual) Haptoglobin Puncture Site pCO2 pO2 HCO3 ABG pH ABG Total CO2 ABG O2 Saturation ABG Base Excess ABG Hemoglobin ABG Carboxyhemoglobin POC ABG HHb (Measured) ABG Methemoglobin Braxton Test A-a O2 Difference Respiratory Index Hgb O2 Saturation Mechanical Rate FiO2 Tidal Volume PEEP Sodium Potassium Chloride Carbon Dioxide Anion Gap BUN Creatinine Est GFR ( Amer) Est GFR (Non-Af Amer) POC Glucose (mg/dL) 231 H 216 H Random Glucose Calcium Phosphorus Magnesium Total Bilirubin AST ALT Alkaline Phosphatase Total Protein Albumin Globulin Albumin/Globulin Ratio C. difficile Ag & Toxin Negative 07/31/16 07/31/16 07/31/16 00:15 04:31 05:14 WBC RBC Hgb Hct MCV MCH MCHC RDW Plt Count MPV Neut % (Auto) Lymph % (Auto) [place] % (Auto) Eos % (Auto) Baso % (Auto) Neut # Lymph # [place] # Eos # Baso # Neutrophils % (Manual) Band Neutrophils % Lymphocytes % (Manual) Monocytes % (Manual) Metamyelocytes % Platelet Estimate Hypochromasia (manual) Poikilocytosis (manual Anisocytosis (manual) Microcytosis (manual) Haptoglobin Puncture Site Rb pCO2 41 pO2 100 HCO3 31.2 H ABG pH 7.50 H ABG Total CO2 33.3 H ABG O2 Saturation 99.3 H ABG Base Excess 8.1 H ABG Hemoglobin 10.7 L ABG Carboxyhemoglobin 1.8 H POC ABG HHb (Measured) 0.7 ABG Methemoglobin 1.7 Braxton Test Na A-a O2 Difference 277.0 Respiratory Index 2.8 Hgb O2 Saturation 95.8 Mechanical Rate 14 FiO2 60.0 Tidal Volume 450 PEEP 5 Sodium Potassium Chloride Carbon Dioxide Anion Gap BUN Creatinine Est GFR ( Amer) Est GFR (Non-Af Amer) POC Glucose (mg/dL) 245 H 240 H Random Glucose Calcium Phosphorus Magnesium Total Bilirubin AST ALT Alkaline Phosphatase Total Protein Albumin Globulin Albumin/Globulin Ratio C. difficile Ag & Toxin Review of Systems - Review of Systems Systems not reviewed;Unavailable: Intubated Assessment/Plan - Assessment and Plan (Free Text) Assessment: 80 F PMHx systolic CHF (EF-10%) presented with acute renal failure, acute respiratory failure, spherocytosis, thrombocytopenia - current suspicion of TTP Plan: Neuro: -Alert and responsive to name -off sedation -Versed 2mg ivp q3 prn on hold Pulm: -Acute respiratory failure, tolerating CPAP + PS (60%, 5, 10) -Duoneb 3ml inh q6 -CXR 07/31: small b/l pleural effusions with bibasilar airspace opacities; mild venous congestion; biapical pleural thickening with upper lobe granulomatous changes -LE dopplers negative b/l -Zosyn 2.25gm ivpb q6 CV: -Hemodynamically stable. 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 Renal: -Nonoliguric MARCO -Patient has HD MWF -Renal u/s: unremarkable -Monitor Endo: -DM2 -Accucheck -RISS high dose -Lantus 10U sc hs GI: -NPO -Novasource Renal @ 40cc/hr- tolerating -Flagyl 500mg ivpb q8 -Zosyn 2.25gm ivpb q6 -CT abd/pelvis: no acute findings; nonspecific hazy change noted within mesenteric fat with mild anasarca; scattered colonic diverticula ID: -Uncertain source of sepsis -WBC 10.9 this AM and afebrile overnight -Urine culture negative -Zosyn 2.25gm ivpb q6 (started 07/23) -Flagyl 500mg ivpb q8 (started 07/24) DVT proph: SCDs GI proph: Pepcid 20mg po bid sharp for strict I/O's during acute illness Code status - full code Case discussed with Dr. Levi Donohue PGY2 <Alessandro Sims - Last Filed: 07/31/16 16:05> CCU Objective - Vital Signs / Intake & Output Vital Signs (Last 4 hours): Vital Signs Temp Pulse Resp BP Pulse Ox 07/31/16 13:15 98.3 F 07/31/16 13:00 98.3 F 74 15 96 07/31/16 12:57 74 19 135/70 97 07/31/16 12:00 98.3 F 73 18 97 07/31/16 11:57 74 13 131/68 96 Intake and Output (Last 8hrs): Intake & Output 07/31/16 07/31/16 07/31/16 06:59 14:59 22:59 Intake Total 421.5 287.5 Output Total 160 40 Balance 261.5 247.5 Intake: Intake, IV Amount 101.5 7.5 Right Distal Port 100 Internal Jugular Right Medial Port 7.5 Internal Jugular Right Proximal Port 1.5 Internal Jugular Oral 280 Tube Feeding 40 280 Output: Urine 160 40 Urethral (Sharp) 160 40 Stool 0 Emesis 0 Other: # Bowel Movements 0 - Medications Active Medications: Active Medications Generic Name Dose Route Start Last Admin Trade Name Freq PRN Reason Stop Dose Admin Albuterol/Ipratropium 3 ml 07/23/16 08:00 07/31/16 14:46 Duoneb 3 Mg/0.5 Mg (3 Ml) Ud INH 3 ml RQ6 JESSI Administration Carvedilol 3.125 mg 07/29/16 10:12 07/31/16 09:51 Coreg PO Not Given BID [facility] Dexamethasone 4 mg 07/28/16 10:00 07/31/16 09:49 Decadron Inj IV 4 mg Q12 JESSI Administration Famotidine 20 mg 07/30/16 10:00 07/31/16 09:49 Pepcid PO 20 mg DAILY JESSI Administration Furosemide 60 mg 07/28/16 08:29 07/29/16 23:09 Lasix IVP 60 mg Q12 JESSI Administration Hydralazine HCl 10 mg 07/28/16 08:30 07/31/16 13:34 Apresoline PO 10 mg Q8 JESSI Administration Piperacillin Sod/Tazobactam Sod 2.25 gm in 50 mls @ 100 mls/hr 07/23/16 13:00 07/31/16 13:30 Zosyn 2.25 Gm Iv Premix IVPB 100 mls/hr Q6H JESSI Administration Metronidazole 500 mg in 100 mls @ 100 mls/hr 07/24/16 22:00 07/31/16 14:13 Flagyl IVPB 100 mls/hr Q8 [facility] Administration Dexmedetomidine HCl 200 mcg/ 50 mls @ 3.47 mls/hr 07/28/16 17:15 07/30/16 09: 05 Sodium Chloride IV 0.08 mcg/kg/hr TITR PRN 1.5 mls/hr Sedation Administration Protocol 0.2 MCG/KG/HR Insulin Aspart 0 unit 07/29/16 12:00 07/31/16 12:19 Novolog SC Not Given Q6H [facility] Protocol Insulin Glargine 10 unit 07/29/16 22:00 07/30/16 21:32 Lantus SC 10 units HS JESSI Administration Midazolam HCl 2 mg 07/28/16 10:00 07/28/16 17:23 Versed Inj IVP 2 mg Q3 PRN Administration Nifedipine 10 mg 07/25/16 12:00 07/31/16 09:52 Procardia PO Not Given BID JESSI - Patient Studies Lab Studies: Microbiology Studies 07/30/16 Unknown Gram Stain - Final Trachasp 07/30/16 11:53 Ova and Parasite Concentrate Exam - Final Stool Lab Studies 0607/31/16 07/31/16 Range/Units 11:31 06:27 06:27 WBC 10.9 H (4.8-10.8) K/uL RBC 3.24 L (3.80-5.20) Mil/uL Hgb 10.7 L (11.0-16.0) g/dL Hct 32.4 L (34.0-47.0) % MCV 100.0 H (81.0-99.0) fL MCH 32.9 H (27.0-31.0) pg MCHC 32.9 L (33.0-37.0) g/dL RDW 18.0 H (11.5-14.5) % Plt Count 95 L D (130-400) K/uL MPV 11.6 (7.2-11.7) fL Neut % (Auto) 85.8 H (50.0-75.0) % Lymph % (Auto) 3.8 L (20.0-40.0) % [place] % (Auto) 9.6 (0.0-10.0) % Eos % (Auto) 0.7 (0.0-4.0) % Baso % (Auto) 0.1 (0.0-2.0) % Neut # 9.4 H (1.8-7.0) K/uL Lymph # 0.4 L (1.0-4.3) K/uL [place] # 1.0 H (0.0-0.8) K/uL Eos # 0.1 (0.0-0.7) K/uL Baso # 0.0 (0.0-0.2) K/uL Neutrophils % (Manual) 87 H (50-75) % Band Neutrophils % 1 (0-2) % Lymphocytes % (Manual) 5 L (20-40) % Monocytes % (Manual) 7 (0-10) % Toxic Granulation Present Platelet Estimate Decreased L (NORMAL) Large Platelets Present Hypochromasia (manual) Slight Poikilocytosis (manual Slight Anisocytosis (manual) Slight Microcytosis (manual) Slight Macrocytosis (manual) Slight Puncture Site pCO2 (35-45) mm/Hg pO2 (80-100) mm/Hg HCO3 (21-28) mmol/L ABG pH (7.35-7.45) ABG Total CO2 (22-28) mmol/L ABG O2 Saturation (95-98) % ABG Base Excess (-2.0-3.0) mmol/L ABG Hemoglobin (11.7-17.4) g/dL ABG Carboxyhemoglobin (0.5-1.5) % POC ABG HHb (Measured) (0.0-5.0) % ABG Methemoglobin (0.0-3.0) % Braxton Test A-a O2 Difference mm/Hg Respiratory Index Hgb O2 Saturation (95.0-98.0) % Mechanical Rate FiO2 % Tidal Volume PEEP Sodium 137 (132-148) mmol/L Potassium 3.3 L (3.6-5.2) mmol/L Chloride 94 L (98-107) mmol/L Carbon Dioxide 32 H (22-30) mmol/L Anion Gap 14 (10-20) BUN 75 H (7-17) mg/dL Creatinine 4.1 H (0.7-1.2) MG/DL Est GFR ( Amer) 13 Est GFR (Non-Af Amer) 10 POC Glucose (mg/dL) 142 H (65-110) mg/dL Random Glucose 198 H (65-105) mg/dL Calcium 7.9 L (8.6-10.4) mg/dl Phosphorus 4.6 H (2.5-4.5) mg/dL Magnesium 2.1 (1.6-2.3) mg/dL Total Bilirubin 0.7 (0.2-1.3) mg/dL AST 22 (14-36) U/L ALT 32 (9-52) U/L Alkaline Phosphatase 286 H D (38-126) U/L Total Protein 5.7 L (6.3-8.3) g/dL Albumin 3.1 L (3.5-5.0) g/dL Globulin 2.7 (2.2-3.9) gm/dL Albumin/Globulin Ratio 1.1 (1.0-2.1) 07/31/16 07/31/16 07/31/16 Range/Units 05:14 04:31 00:15 WBC (4.8-10.8) K/uL RBC (3.80-5.20) Mil/uL Hgb (11.0-16.0) g/dL Hct (34.0-47.0) % MCV (81.0-99.0) fL MCH (27.0-31.0) pg MCHC (33.0-37.0) g/dL RDW (11.5-14.5) % Plt Count (130-400) K/uL MPV (7.2-11.7) fL Neut % (Auto) (50.0-75.0) % Lymph % (Auto) (20.0-40.0) % [place] % (Auto) (0.0-10.0) % Eos % (Auto) (0.0-4.0) % Baso % (Auto) (0.0-2.0) % Neut # (1.8-7.0) K/uL Lymph # (1.0-4.3) K/uL [place] # (0.0-0.8) K/uL Eos # (0.0-0.7) K/uL Baso # (0.0-0.2) K/uL Neutrophils % (Manual) (50-75) % Band Neutrophils % (0-2) % Lymphocytes % (Manual) (20-40) % Monocytes % (Manual) (0-10) % Toxic Granulation Platelet Estimate (NORMAL) Large Platelets Hypochromasia (manual) Poikilocytosis (manual Anisocytosis (manual) Microcytosis (manual) Macrocytosis (manual) Puncture Site Rb pCO2 41 (35-45) mm/Hg pO2 100 (80-100) mm/Hg HCO3 31.2 H (21-28) mmol/L ABG pH 7.50 H (7.35-7.45) ABG Total CO2 33.3 H (22-28) mmol/L ABG O2 Saturation 99.3 H (95-98) % ABG Base Excess 8.1 H (-2.0-3.0) mmol/L ABG Hemoglobin 10.7 L (11.7-17.4) g/dL ABG Carboxyhemoglobin 1.8 H (0.5-1.5) % POC ABG HHb (Measured) 0.7 (0.0-5.0) % ABG Methemoglobin 1.7 (0.0-3.0) % Braxton Test Na A-a O2 Difference 277.0 mm/Hg Respiratory Index 2.8 Hgb O2 Saturation 95.8 (95.0-98.0) % Mechanical Rate 14 FiO2 60.0 % Tidal Volume 450 PEEP 5 Sodium (132-148) mmol/L Potassium (3.6-5.2) mmol/L Chloride (98-107) mmol/L Carbon Dioxide (22-30) mmol/L Anion Gap (10-20) BUN (7-17) mg/dL Creatinine (0.7-1.2) MG/DL Est GFR ( Amer) Est GFR (Non-Af Amer) POC Glucose (mg/dL) 240 H 245 H (65-110) mg/dL Random Glucose (65-105) mg/dL Calcium (8.6-10.4) mg/dl Phosphorus (2.5-4.5) mg/dL Magnesium (1.6-2.3) mg/dL Total Bilirubin (0.2-1.3) mg/dL AST (14-36) U/L ALT (9-52) U/L Alkaline Phosphatase (38-126) U/L Total Protein (6.3-8.3) g/dL Albumin (3.5-5.0) g/dL Globulin (2.2-3.9) gm/dL Albumin/Globulin Ratio (1.0-2.1) 07/30/16 Range/Units 18:17 WBC (4.8-10.8) K/uL RBC (3.80-5.20) Mil/uL Hgb (11.0-16.0) g/dL Hct (34.0-47.0) % MCV (81.0-99.0) fL MCH (27.0-31.0) pg MCHC (33.0-37.0) g/dL RDW (11.5-14.5) % Plt Count (130-400) K/uL MPV (7.2-11.7) fL Neut % (Auto) (50.0-75.0) % Lymph % (Auto) (20.0-40.0) % [place] % (Auto) (0.0-10.0) % Eos % (Auto) (0.0-4.0) % Baso % (Auto) (0.0-2.0) % Neut # (1.8-7.0) K/uL Lymph # (1.0-4.3) K/uL [place] # (0.0-0.8) K/uL Eos # (0.0-0.7) K/uL Baso # (0.0-0.2) K/uL Neutrophils % (Manual) (50-75) % Band Neutrophils % (0-2) % Lymphocytes % (Manual) (20-40) % Monocytes % (Manual) (0-10) % Toxic Granulation Platelet Estimate (NORMAL) Large Platelets Hypochromasia (manual) Poikilocytosis (manual Anisocytosis (manual) Microcytosis (manual) Macrocytosis (manual) Puncture Site pCO2 (35-45) mm/Hg pO2 (80-100) mm/Hg HCO3 (21-28) mmol/L ABG pH (7.35-7.45) ABG Total CO2 (22-28) mmol/L ABG O2 Saturation (95-98) % ABG Base Excess (-2.0-3.0) mmol/L ABG Hemoglobin (11.7-17.4) g/dL ABG Carboxyhemoglobin (0.5-1.5) % POC ABG HHb (Measured) (0.0-5.0) % ABG Methemoglobin (0.0-3.0) % Braxton Test A-a O2 Difference mm/Hg Respiratory Index Hgb O2 Saturation (95.0-98.0) % Mechanical Rate FiO2 % Tidal Volume PEEP Sodium (132-148) mmol/L Potassium (3.6-5.2) mmol/L Chloride (98-107) mmol/L Carbon Dioxide (22-30) mmol/L Anion Gap (10-20) BUN (7-17) mg/dL Creatinine (0.7-1.2) MG/DL Est GFR ( Amer) Est GFR (Non-Af Amer) POC Glucose (mg/dL) 216 H (65-110) mg/dL Random Glucose (65-105) mg/dL Calcium (8.6-10.4) mg/dl Phosphorus (2.5-4.5) mg/dL Magnesium (1.6-2.3) mg/dL Total Bilirubin (0.2-1.3) mg/dL AST (14-36) U/L ALT (9-52) U/L Alkaline Phosphatase (38-126) U/L Total Protein (6.3-8.3) g/dL Albumin (3.5-5.0) g/dL Globulin (2.2-3.9) gm/dL Albumin/Globulin Ratio (1.0-2.1) Laboratory Results - last 24 hr 07/30/16 07/31/16 07/31/16 18:17 00:15 04:31 WBC RBC Hgb Hct MCV MCH MCHC RDW Plt Count MPV Neut % (Auto) Lymph % (Auto) [place] % (Auto) Eos % (Auto) Baso % (Auto) Neut # Lymph # [place] # Eos # Baso # Neutrophils % (Manual) Band Neutrophils % Lymphocytes % (Manual) Monocytes % (Manual) Toxic Granulation Platelet Estimate Large Platelets Hypochromasia (manual) Poikilocytosis (manual Anisocytosis (manual) Microcytosis (manual) Macrocytosis (manual) Puncture Site pCO2 pO2 HCO3 ABG pH ABG Total CO2 ABG O2 Saturation ABG Base Excess ABG Hemoglobin ABG Carboxyhemoglobin POC ABG HHb (Measured) ABG Methemoglobin Braxton Test A-a O2 Difference Respiratory Index Hgb O2 Saturation Mechanical Rate FiO2 Tidal Volume PEEP Sodium Potassium Chloride Carbon Dioxide Anion Gap BUN Creatinine Est GFR ( Amer) Est GFR (Non-Af Amer) POC Glucose (mg/dL) 216 H 245 H 240 H Random Glucose Calcium Phosphorus Magnesium Total Bilirubin AST ALT Alkaline Phosphatase Total Protein Albumin Globulin Albumin/Globulin Ratio 07/31/16 07/31/16 07/31/16 05:14 06:27 06:27 WBC 10.9 H RBC 3.24 L Hgb 10.7 L Hct 32.4 L MCV 100.0 H MCH 32.9 H MCHC 32.9 L RDW 18.0 H Plt Count 95 L D MPV 11.6 Neut % (Auto) 85.8 H Lymph % (Auto) 3.8 L [place] % (Auto) 9.6 Eos % (Auto) 0.7 Baso % (Auto) 0.1 Neut # 9.4 H Lymph # 0.4 L [place] # 1.0 H Eos # 0.1 Baso # 0.0 Neutrophils % (Manual) 87 H Band Neutrophils % 1 Lymphocytes % (Manual) 5 L Monocytes % (Manual) 7 Toxic Granulation Present Platelet Estimate Decreased L Large Platelets Present Hypochromasia (manual) Slight Poikilocytosis (manual Slight Anisocytosis (manual) Slight Microcytosis (manual) Slight Macrocytosis (manual) Slight Puncture Site Rb pCO2 41 pO2 100 HCO3 31.2 H ABG pH 7.50 H ABG Total CO2 33.3 H ABG O2 Saturation 99.3 H ABG Base Excess 8.1 H ABG Hemoglobin 10.7 L ABG Carboxyhemoglobin 1.8 H POC ABG HHb (Measured) 0.7 ABG Methemoglobin 1.7 Braxton Test Na A-a O2 Difference 277.0 Respiratory Index 2.8 Hgb O2 Saturation 95.8 Mechanical Rate 14 FiO2 60.0 Tidal Volume 450 PEEP 5 Sodium 137 Potassium 3.3 L Chloride 94 L Carbon Dioxide 32 H Anion Gap 14 BUN 75 H Creatinine 4.1 H Est GFR ( Amer) 13 Est GFR (Non-Af Amer) 10 POC Glucose (mg/dL) Random Glucose 198 H Calcium 7.9 L Phosphorus 4.6 H Magnesium 2.1 Total Bilirubin 0.7 AST 22 ALT 32 Alkaline Phosphatase 286 H D Total Protein 5.7 L Albumin 3.1 L Globulin 2.7 Albumin/Globulin Ratio 1.1 07/31/16 11:31 WBC RBC Hgb Hct MCV MCH MCHC RDW Plt Count MPV Neut % (Auto) Lymph % (Auto) [place] % (Auto) Eos % (Auto) Baso % (Auto) Neut # Lymph # [place] # Eos # Baso # Neutrophils % (Manual) Band Neutrophils % Lymphocytes % (Manual) Monocytes % (Manual) Toxic Granulation Platelet Estimate Large Platelets Hypochromasia (manual) Poikilocytosis (manual Anisocytosis (manual) Microcytosis (manual) Macrocytosis (manual) Puncture Site pCO2 pO2 HCO3 ABG pH ABG Total CO2 ABG O2 Saturation ABG Base Excess ABG Hemoglobin ABG Carboxyhemoglobin POC ABG HHb (Measured) ABG Methemoglobin Braxton Test A-a O2 Difference Respiratory Index Hgb O2 Saturation Mechanical Rate FiO2 Tidal Volume PEEP Sodium Potassium Chloride Carbon Dioxide Anion Gap BUN Creatinine Est GFR ( Amer) Est GFR (Non-Af Amer) POC Glucose (mg/dL) 142 H Random Glucose Calcium Phosphorus Magnesium Total Bilirubin AST ALT Alkaline Phosphatase Total Protein Albumin Globulin Albumin/Globulin Ratio Assessment/Plan (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 Medical records, lab studies, and imaging were reviewed by me and a management plan was formulated on multidisciplinary rounds with resident Dr. Donouhe. I agree with their above documented assessment and plan. Patient extubated today. TTP has improved since plasmapheresis. Primary etiology was Dengue fever. Patient was treated with symptomatic support. Will monitor immediately post extubation. Critical Care Time 35 minutes. Multi-disciplinary rounds were performed with house staff, nursing, speech therapy, respiratory therapy, pharmacy and nutrition with integrated input from the primary team/attending and other consulting services. The documented time is cumulative and includes review of patient data/exams/labs/chart review and examination of the patient on rounds and throughout the day; time is exclusive of any procedures or teaching time. 07/31/16 16:05
[2016-07-31 06:35] LABS: BASO % 0.1 % (0.0-2.0); EOS # 0.1 K/uL (0.0-0.7); EOS % 0.7 % (0.0-4.0); HEMOGLOBIN 10.7 g/dL (11.0-16.0); LYMPH # 0.4 K/uL (1.0-4.3); LYMPH % 3.8 % (20.0-40.0); MEAN CORPUSCULAR HEMOGLOBIN 32.9 pg (27.0-31.0); MEAN CORPUSCULAR HGB CONC 32.9 g/dL (33.0-37.0); MEAN PLATELET VOLUME 11.6 fL (7.2-11.7); MONO % 9.6 % (0.0-10.0); NEUT # 9.4 K/uL (1.8-7.0); NEUT % 85.8 % (50.0-75.0); NRBC % 0.1 % (0.0-2.0); PLATELET COUNT 95 K/uL (130-400); RBC 3.24 Mil/uL (3.80-5.20); WHITE BLOOD COUNT 10.9 K/uL (4.8-10.8)
[2016-07-31 07:13] LABS: ALBUMIN 3.1 g/dL (3.5-5.0)
[2016-07-31 07:16] LABS: ALB/GLOB RATIO 1.1 (1.0-2.1); CALCIUM 7.9 mg/dl (8.6-10.4); MAGNESIUM 2.1 mg/dL (1.6-2.3)
[2016-07-31 08:23] LABS: ANISOCYTOSIS SLIGHT; BANDS 1 % (0-2); HYPOCHROMIC SLIGHT; LYMPHOCYTE 5 % (20-40); MONOCYTE 7 % (0-10); NEUTROPHIL 87 % (50-75); PLATELET ESTIMATE DECREASED (NORMAL); POIKILOCYTOSIS SLIGHT; TOTAL CELLS COUNTED 100
[2016-07-31 08:24] LABS: LARGE PLATELETS PRESENT; MICROCYTOSIS SLIGHT; TOXIC GRANULATION PRESENT
[2016-07-31] MEDS: Dexamethasone 4 mg/1 ml IV SCH ×2 (09:49→21:33)
--- NOTE | 2016-07-31 10:36 | RAD ---
Chest x-ray single frontal view History: Intubated. Comparison: None available. Findings: Lines and tubes in stable position. Small bilateral pleural effusions with patchy bibasilar airspace opacities. Moderate venous congestion. Biapical pleural thickening with upper lobe granulomatous changes. Calcification at the aortic knob with mild cardiomegaly. Degenerative changes in the spine and shoulders. Impression: Small bilateral pleural effusions with patchy bibasilar airspace opacities. Moderate venous congestion. Biapical pleural thickening with upper lobe granulomatous changes.
--- NOTE | 2016-07-31 12:04 | CP.PCM.PN ---
<Dmitry Kebede - Last Filed: 07/31/16 12:01> Subjective - Date & Time of Evaluation Date of Evaluation: 07/31/16 Time of Evaluation: 12:02 - Subjective Subjective: Progress Note for Dr. Jules Pt seen and examined at bedside. Pt with no acute events overnight as per nursing. Pt remains intubated at this time. Pt is arousable. Family is at bedside this morning. Objective - Vital Signs/Intake and Output Vital Signs (last 24 hours): Temp Pulse Resp BP Pulse Ox 98.6 F 71 12 114/57 L 98 07/31/16 07:54 07/31/16 07:00 07/31/16 07:00 07/31/16 06:57 07/31/16 07:00 Intake and Output: 07/31/16 07/31/16 06:59 18:59 Intake Total 687.5 41.5 Output Total 240 40 Balance 447.5 1.5 - Medications Medications: Current Medications Albuterol/Ipratropium (Duoneb 3 Mg/0.5 Mg (3 Ml) Ud) 3 ml INH RQ6 [facility] Last Admin: 07/31/16 08:18 Dose: 3 ml Carvedilol (Coreg) 3.125 mg PO BID [facility] Last Admin: 07/31/16 09:51 Dose: Not Given Dexamethasone (Decadron Inj) 4 mg IV Q12 [facility] Last Admin: 07/31/16 09:49 Dose: 4 mg Famotidine (Pepcid) 20 mg PO DAILY [facility] Last Admin: 07/31/16 09:49 Dose: 20 mg Furosemide (Lasix) 60 mg IVP Q12 [facility] Last Admin: 07/29/16 23:09 Dose: 60 mg Hydralazine HCl (Apresoline) 10 mg PO Q8 [facility] Last Admin: 07/31/16 06:31 Dose: 10 mg Piperacillin Sod/Tazobactam Sod (Zosyn 2.25 Gm Iv Premix) 2.25 gm in 50 mls @ 100 mls/hr IVPB Q6H [facility] Last Admin: 07/31/16 06:32 Dose: 100 mls/hr Metronidazole (Flagyl) 500 mg in 100 mls @ 100 mls/hr IVPB Q8 [facility] Last Admin: 07/31/16 05:00 Dose: 100 mls/hr Dexmedetomidine HCl 200 mcg/ (Sodium Chloride) 50 mls @ 3.47 mls/hr IV TITR PRN ; Protocol; 0.2 MCG/KG/HR PRN Reason: Sedation Last Admin: 07/30/16 09:05 Dose: 0.08 mcg/kg/hr, 1.5 mls/hr Insulin Aspart (Novolog) 0 unit SC Q6H [facility] PRN Reason: Protocol Last Admin: 07/31/16 06:31 Dose: 4 unit Insulin Glargine (Lantus) 10 unit SC HS [facility] Last Admin: 07/30/16 21:32 Dose: 10 units Midazolam HCl (Versed Inj) 2 mg IVP Q3 PRN Last Admin: 07/28/16 17:23 Dose: 2 mg Nifedipine (Procardia) 10 mg PO BID [facility] Last Admin: 07/31/16 09:52 Dose: Not Given - Labs Labs: 07/31/16 06:27 07/31/16 06:27 PT 11.4 SECONDS (9.7-12.2) 07/29/16 06:09 INR 1.0 07/29/16 06:09 APTT 28 SECONDS (21-34) 07/29/16 06:09 - Constitutional Appears: Toxic - Head Exam Head Exam: NORMAL INSPECTION, NORMOCEPHALIC - Respiratory Exam Respiratory Exam: Decreased Breath Sounds, NORMAL BREATHING PATTERN Additional comments: Intubated - Cardiovascular Exam Cardiovascular Exam: RRR, +S1, +S2 - GI/Abdominal Exam GI & Abdominal Exam: Soft, Normal Bowel Sounds. absent: Tenderness - Extremities Exam Extremities Exam: Pedal Edema (trace b/l). absent: Calf Tenderness - Neurological Exam Neurological Exam: Alert Assessment and Plan (1) CHF (congestive heart failure) Status: Acute <Geo Jules - Last Filed: 07/31/16 15:20> Objective - Vital Signs/Intake and Output Vital Signs (last 24 hours): Temp Pulse Resp BP Pulse Ox 98.3 F 74 15 135/70 96 07/31/16 13:15 07/31/16 13:00 07/31/16 13:00 07/31/16 12:57 07/31/16 13:00 Intake and Output: 07/31/16 07/31/16 06:59 18:59 Intake Total 687.5 287.5 Output Total 240 40 Balance 447.5 247.5 - Medications Medications: Current Medications Albuterol/Ipratropium (Duoneb 3 Mg/0.5 Mg (3 Ml) Ud) 3 ml INH RQ6 [facility] Last Admin: 07/31/16 14:46 Dose: 3 ml Carvedilol (Coreg) 3.125 mg PO BID [facility] Last Admin: 07/31/16 09:51 Dose: Not Given Dexamethasone (Decadron Inj) 4 mg IV Q12 [facility] Last Admin: 07/31/16 09:49 Dose: 4 mg Famotidine (Pepcid) 20 mg PO DAILY [facility] Last Admin: 07/31/16 09:49 Dose: 20 mg Furosemide (Lasix) 60 mg IVP Q12 [facility] Last Admin: 07/29/16 23:09 Dose: 60 mg Hydralazine HCl (Apresoline) 10 mg PO Q8 [facility] Last Admin: 07/31/16 13:34 Dose: 10 mg Piperacillin Sod/Tazobactam Sod (Zosyn 2.25 Gm Iv Premix) 2.25 gm in 50 mls @ 100 mls/hr IVPB Q6H [facility] Last Admin: 07/31/16 13:30 Dose: 100 mls/hr Metronidazole (Flagyl) 500 mg in 100 mls @ 100 mls/hr IVPB Q8 [facility] Last Admin: 07/31/16 14:13 Dose: 100 mls/hr Dexmedetomidine HCl 200 mcg/ (Sodium Chloride) 50 mls @ 3.47 mls/hr IV TITR PRN ; Protocol; 0.2 MCG/KG/HR PRN Reason: Sedation Last Admin: 07/30/16 09:05 Dose: 0.08 mcg/kg/hr, 1.5 mls/hr Insulin Aspart (Novolog) 0 unit SC Q6H [facility] PRN Reason: Protocol Last Admin: 07/31/16 12:19 Dose: Not Given Insulin Glargine (Lantus) 10 unit SC HS [facility] Last Admin: 07/30/16 21:32 Dose: 10 units Midazolam HCl (Versed Inj) 2 mg IVP Q3 PRN Last Admin: 07/28/16 17:23 Dose: 2 mg Nifedipine (Procardia) 10 mg PO BID [facility] Last Admin: 07/31/16 09:52 Dose: Not Given - Labs Labs: 07/31/16 06:27 07/31/16 06:27 PT 11.4 SECONDS (9.7-12.2) 07/29/16 06:09 INR 1.0 07/29/16 06:09 APTT 28 SECONDS (21-34) 07/29/16 06:09 Attending/Attestation - Attestation I have personally seen and examined this patient.: Yes I have fully participated in the care of the patient.: Yes I have reviewed all pertinent clinical information, including history, physical exam and plan: Yes Notes (Text): 07/31/16 15:19 Pt with dilated cardiomyopathy would benefit fro ICD Zoll vest ef 10 percent optimal chf care when bp allows restrict fluids Follow up study when stable continue care
[2016-07-31 16:17] LABS: SOURCE Serum
--- NOTE | 2016-07-31 16:32 | CP.PCM.PN ---
Subjective - Date & Time of Evaluation Date of Evaluation: 07/31/16 Time of Evaluation: 07:00 - Subjective Subjective: REMAINS BED BOUND / LETHARGIC EXTUBATED NAD SKIN IS DRY HEALING NO DIARRHEA CONSIDER D/C ANTBIOTICS Objective - Vital Signs/Intake and Output Vital Signs (last 24 hours): Temp Pulse Resp BP Pulse Ox 98.3 F 74 15 135/70 96 07/31/16 13:15 07/31/16 13:00 07/31/16 13:00 07/31/16 12:57 07/31/16 13:00 Intake and Output: 07/31/16 07/31/16 06:59 18:59 Intake Total 687.5 287.5 Output Total 240 40 Balance 447.5 247.5 - Medications Medications: Current Medications Albuterol/Ipratropium (Duoneb 3 Mg/0.5 Mg (3 Ml) Ud) 3 ml INH RQ6 [facility] Last Admin: 07/31/16 14:46 Dose: 3 ml Carvedilol (Coreg) 3.125 mg PO BID [facility] Last Admin: 07/31/16 09:51 Dose: Not Given Dexamethasone (Decadron Inj) 4 mg IV Q12 [facility] Last Admin: 07/31/16 09:49 Dose: 4 mg Famotidine (Pepcid) 20 mg PO DAILY [facility] Last Admin: 07/31/16 09:49 Dose: 20 mg Furosemide (Lasix) 60 mg IVP Q12 [facility] Last Admin: 07/29/16 23:09 Dose: 60 mg Hydralazine HCl (Apresoline) 10 mg PO Q8 [facility] Last Admin: 07/31/16 13:34 Dose: 10 mg Piperacillin Sod/Tazobactam Sod (Zosyn 2.25 Gm Iv Premix) 2.25 gm in 50 mls @ 100 mls/hr IVPB Q6H [facility] Last Admin: 07/31/16 13:30 Dose: 100 mls/hr Metronidazole (Flagyl) 500 mg in 100 mls @ 100 mls/hr IVPB Q8 [facility] Last Admin: 07/31/16 14:13 Dose: 100 mls/hr Dexmedetomidine HCl 200 mcg/ (Sodium Chloride) 50 mls @ 3.47 mls/hr IV TITR PRN ; Protocol; 0.2 MCG/KG/HR PRN Reason: Sedation Last Admin: 07/30/16 09:05 Dose: 0.08 mcg/kg/hr, 1.5 mls/hr Insulin Aspart (Novolog) 0 unit SC Q6H [facility] PRN Reason: Protocol Last Admin: 07/31/16 12:19 Dose: Not Given Insulin Glargine (Lantus) 10 unit SC HS [facility] Last Admin: 07/30/16 21:32 Dose: 10 units Midazolam HCl (Versed Inj) 2 mg IVP Q3 PRN Last Admin: 07/28/16 17:23 Dose: 2 mg Nifedipine (Procardia) 10 mg PO BID [facility] Last Admin: 07/31/16 09:52 Dose: Not Given - Labs Labs: 07/31/16 06:27 07/31/16 06:27 PT 11.4 SECONDS (9.7-12.2) 07/29/16 06:09 INR 1.0 07/29/16 06:09 APTT 28 SECONDS (21-34) 07/29/16 06:09 - Constitutional Appears: Non-toxic, Confused, Cachectic, Chronically Ill - Head Exam Head Exam: NORMOCEPHALIC - Eye Exam Eye Exam: EOMI, PERRL. absent: Scleral icterus - ENT Exam ENT Exam: Mucous Membranes Dry, Normal External Ear Exam - Neck Exam Neck Exam: absent: Lymphadenopathy - Respiratory Exam Respiratory Exam: Decreased Breath Sounds, Rhonchi - Cardiovascular Exam Cardiovascular Exam: REGULAR RHYTHM, +S1, +S2 - GI/Abdominal Exam GI & Abdominal Exam: Distended, Soft. absent: Tenderness - Rectal Exam Rectal Exam: Deferred - Exam Exam: NORMAL INSPECTION - Extremities Exam Extremities Exam: absent: Calf Tenderness, Pedal Edema - Back Exam Back Exam: absent: CVA tenderness (L), CVA tenderness (R) - Neurological Exam Neurological Exam: Alert, Altered, Awake - Psychiatric Exam Psychiatric exam: Depressed - Skin Skin Exam: Dry, Intact Assessment and Plan (1) Acute respiratory failure requiring reintubation Status: Acute (2) CHF (congestive heart failure) Status: Acute (3) Dehydration Status: Acute (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 - Assessment and Plan (Free Text) Assessment: CONSIDER D/C IV ANTIBIOTICS IF OK WITH DR MCCORD
--- NOTE | 2016-07-31 19:37 | CARD ---
APPROVED REPORT EKG Measurement Heart [id number] [place] [id number] <Conclusion> Sinus tachycardia Left ventricular hypertrophy with QRS widening and repolarization abnormality Abnormal ECG
--- NOTE | 2016-07-31 20:40 | CP.PCM.PN ---
Subjective - Date & Time of Evaluation Date of Evaluation: 07/31/16 Time of Evaluation: 20:39 - Subjective Subjective: pt seen and examined, follow up consult is dictated #[id number] Objective - Vital Signs/Intake and Output Vital Signs (last 24 hours): Temp Pulse Resp BP Pulse Ox 98.3 F 89 24 140/86 96 07/31/16 13:15 07/31/16 18:00 07/31/16 18:00 07/31/16 17:57 07/31/16 18:00 Intake and Output: 07/31/16 08/01/16 18:59 06:59 Intake Total 367.5 Output Total 170 Balance 197.5 - Medications Medications: Current Medications Albuterol/Ipratropium (Duoneb 3 Mg/0.5 Mg (3 Ml) Ud) 3 ml INH RQ6 [facility] Last Admin: 07/31/16 20:37 Dose: 3 ml Carvedilol (Coreg) 3.125 mg PO BID [facility] Last Admin: 07/31/16 17:56 Dose: Not Given Dexamethasone (Decadron Inj) 4 mg IV Q12 [facility] Last Admin: 07/31/16 09:49 Dose: 4 mg Famotidine (Pepcid) 20 mg PO DAILY [facility] Last Admin: 07/31/16 09:49 Dose: 20 mg Furosemide (Lasix) 60 mg IVP Q12 [facility] Last Admin: 07/29/16 23:09 Dose: 60 mg Hydralazine HCl (Apresoline) 10 mg PO Q8 [facility] Last Admin: 07/31/16 13:34 Dose: 10 mg Piperacillin Sod/Tazobactam Sod (Zosyn 2.25 Gm Iv Premix) 2.25 gm in 50 mls @ 100 mls/hr IVPB Q6H [facility] Last Admin: 07/31/16 18:04 Dose: 100 mls/hr Metronidazole (Flagyl) 500 mg in 100 mls @ 100 mls/hr IVPB Q8 [facility] Last Admin: 07/31/16 14:13 Dose: 100 mls/hr Dexmedetomidine HCl 200 mcg/ (Sodium Chloride) 50 mls @ 3.47 mls/hr IV TITR PRN ; Protocol; 0.2 MCG/KG/HR PRN Reason: Sedation Last Admin: 07/30/16 09:05 Dose: 0.08 mcg/kg/hr, 1.5 mls/hr Insulin Aspart (Novolog) 0 unit SC Q6H [facility] PRN Reason: Protocol Last Admin: 07/31/16 18:02 Dose: Not Given Insulin Glargine (Lantus) 10 unit SC HS [facility] Last Admin: 07/30/16 21:32 Dose: 10 units Midazolam HCl (Versed Inj) 2 mg IVP Q3 PRN Last Admin: 07/28/16 17:23 Dose: 2 mg Nifedipine (Procardia) 10 mg PO BID [facility] Last Admin: 07/31/16 17:57 Dose: Not Given - Labs Labs: 07/31/16 06:27 07/31/16 06:27 PT 11.4 SECONDS (9.7-12.2) 07/29/16 06:09 INR 1.0 07/29/16 06:09 APTT 28 SECONDS (21-34) 07/29/16 06:09
[2016-07-31] MEDS: (Lantus) Insulin Glargine, Recombinant SC SCH (21:34)
--- NOTE | 2016-07-31 23:34 | PN ---
DATE: 07/31/2016 LOCTION: The patient is located in ICU bed 6. REQUESTED BY: Dr. Anthony Mclaughlin. REASON FOR RENAL FOLLOWUP: Acute renal failure on chronic kidney disease, on hemodialysis. HISTORY OF PRESENT ILLNESS: This patient is an 80-year-old elderly female from [facility] with a history of hypertension, arthritis, was admitted with nausea, vomiting, diarrhea, abdom inal pain, low H and H, low platelets and also increased BUN and creatinine, altered mental status. The patient was initially treated with fresh frozen plasma for possible TTP and, subsequently, plasma pheresis was initiated as requested by the dental assisting instructor. Her hospital course was complicated by wors ening renal function, respiratory failure requiring intubation and also initiation of the hemodialysi s. The patient was extubated this afternoon. The patient is feeling better, not in acute distress, denies any complaints. PHYSICAL EXAMINATION: VITAL SIGNS: As of this afternoon as follows: Blood pressure 145/67, pulse 89, respirations 22, sat uration 94%, temperature 98.7. GENERAL: This patient is an 80-year-old elderly female, moderately built, moderately nourished, not in acute distress. HEENT: Pupils normal, reactive to light and accommodation. Conjunctivae pink. Sclerae anicteric. Tongue is moist. NECK: Trachea midline. LUNGS: Symmetric on both sides. Bilateral breath sounds present. Clear on auscultation. CARDIOVASCULAR: [place] in the fifth intercostal space midclavicular line. S1 and S2 audible. No murm ur or gallop. ABDOMEN: Normal in appearance, soft, tympanic. No guarding, no rigidity. No hepatosplenomegaly. CENTRAL NERVOUS SYSTEM: The patient is alert, awake, oriented x 2-3. Sensory and motor system is gr ossly within normal limits. EXTREMITIES: No cyanosis, no clubbing, no edema. CURRENT MEDICATIONS: Include as follows: Hydralazine 10 mg p.o. q. 8 hours, Coreg 3.12 mg p.o. b.i. d., Decadron 4 mg IV q. 12 hours, DuoNeb inhaler 3 mL q. 6 hours, Flagyl 500 q. 8 hours, Lantus 10 un its subQ at bedtime, NovoLog for sliding scale, Pepcid 20 mg p.o. daily, Procardia 10 mg p.o. b.i.d. and Zosyn 2.25 grams IV q. 6 hours, 24 hours. Intake is 1602 mL and output is 780 mL urine out put. LABORATORY DATA: Include as follows: As of 07/31/2016, WBC 10.9, hemoglobin 10.7, hematocrit is 32. 4, platelets 95,000 and neutrophils 87, bands 1, lymph 5, and monos 47. Other laboratory data, pH 7. 50, pCO2 of 41, pO2 100, bicarbonate is 31.2 and saturation 99. Sodium 137, potassium 3.3, chloride 94, CO2 32, BUN 75, creatinine 4.1, glucose 198, calcium 7.9 and phosphorus 4.6, magnesium 2.1, total bilirubin 0.7, AST 22, ALT 32, alkaline phosphatase is 286, total protein 5.7, albumin is 3.1. Ches t x-ray as of 07/31/2016, moderate small bilateral pleural effusions with patchy bilateral airspace o pacities, moderate venous congestion and biapical pleural thickening with upper lobe granulomatous ch anges. SUMMARY: The patient is an 80-year-old elderly female with a history of hypertension, arthr itis with low platelets, increased BUN and creatinine, respiratory failure, acute renal failure on ch ronic kidney disease and status post extubation. ASSESSMENT AND PLAN: 1. Acute renal failure on chronic kidney disease. Continue hemodialysis 3 times a week, Thursday, Thu and Thursday. 2. Thrombocytopenia, rule out thrombotic thrombocytopenic purpura, follow up dental assisting instructor. 3. Hypertension. 4. Pleural effusion. 5. Cardiomyopathy. Restrict fluids to 1 liter per day and follow up with household personal assistant and also card iac followup with the dental assisting instructor. Repeat CBC, BMP in the a.m. Will follow with you. Thank you for allowing me to participate in your patient's care. Horacio Graham MD cc: [id number] TT: 07/31/2016 23:34:15 Confirmation # [id number] Dictation # [id number]
[2016-08-01] MEDS: (Novolog) Insulin Aspart, Recombinant 100 u/ml 10 ml vial SC SCH ×4 (00:11→18:25)
[2016-08-01] MEDS: Piperacill/Tazo 2.25gm in Dex 2.25 GM/50 ML BAG IVPB SCH ×4 (00:12→18:26)
[2016-08-01] MEDS: Albuterol-Ipratrop 3 mg / 0.5 (3 ml) UD INH SCH ×3 (01:42→13:20)
[2016-08-01] MEDS: metroNIDAZOLE IV 500 mg/100 ml 500 MG/100 ML BAG IVPB SCH ×3 (05:32→22:19)
[2016-08-01 06:31] LABS: BASO % 0.1 % (0.0-2.0); HEMOGLOBIN 10.5 g/dL (11.0-16.0); LYMPH # 0.4 K/uL (1.0-4.3); LYMPH % 3.5 % (20.0-40.0); MEAN CELL VOLUME 99.5 fL (81.0-99.0); MEAN CORPUSCULAR HEMOGLOBIN 32.1 pg (27.0-31.0); MEAN CORPUSCULAR HGB CONC 32.3 g/dL (33.0-37.0); MEAN PLATELET VOLUME 11.7 fL (7.2-11.7); MONO # 0.9 K/uL (0.0-0.8); MONO % 7.2 % (0.0-10.0); NEUT # 11.3 K/uL (1.8-7.0); NEUT % 89.2 % (50.0-75.0); PLATELET COUNT 113 K/uL (130-400); RBC 3.26 Mil/uL (3.80-5.20); RED CELL DISTRIBUTION WIDTH 18.5 % (11.5-14.5); WHITE BLOOD COUNT 12.6 K/uL (4.8-10.8)
[2016-08-01 06:55] LABS: CALCIUM 8.1 mg/dl (8.6-10.4); MAGNESIUM 2.2 mg/dL (1.6-2.3)
[2016-08-01 08:36] LABS: ANISOCYTOSIS SLIGHT; BANDS 2 % (0-2); LYMPHOCYTE 2 % (20-40); MONOCYTE 5 % (0-10); NEUTROPHIL 91 % (50-75); PLATELET ESTIMATE SLIGHTLY DECREASED (NORMAL); TOTAL CELLS COUNTED 100
[2016-08-01 08:37] LABS: HYPOCHROMIC SLIGHT; POIKILOCYTOSIS SLIGHT
[2016-08-01] MEDS: Dexamethasone 4 mg/1 ml IV SCH ×2 (11:48→22:21)
--- NOTE | 2016-08-01 12:00 | CP.PCM.PN ---
Subjective - Date & Time of Evaluation Date of Evaluation: 08/01/16 Time of Evaluation: 11:56 - Subjective Subjective: Progress Note for Dr. Jules Pt seen and examined at bedside. Pt with no acute events overnight as per nursing. Pt undergoing dialysis this morning. Pt is off sedation and is alert. Objective - Vital Signs/Intake and Output Vital Signs (last 24 hours): Temp Pulse Resp BP Pulse Ox 98.1 F 78 16 115/75 91 L 08/01/16 08:41 08/01/16 10:11 08/01/16 10:11 08/01/16 11:41 08/01/16 10:11 Intake and Output: 08/01/16 08/01/16 06:59 18:59 Intake Total 325 0 Output Total 440 135 Balance -115 -135 - Medications Medications: Current Medications Albuterol/Ipratropium (Duoneb 3 Mg/0.5 Mg (3 Ml) Ud) 3 ml INH RQ6 [facility] Last Admin: 08/01/16 08:18 Dose: 3 ml Carvedilol (Coreg) 3.125 mg PO BID [facility] Last Admin: 08/01/16 10:17 Dose: Not Given Dexamethasone (Decadron Inj) 4 mg IV Q12 [facility] Last Admin: 08/01/16 11:48 Dose: 4 mg Famotidine (Pepcid) 20 mg PO DAILY [facility] Last Admin: 07/31/16 09:49 Dose: 20 mg Furosemide (Lasix) 60 mg IVP Q12 [facility] Last Admin: 07/29/16 23:09 Dose: 60 mg Heparin Sodium (Porcine) (Heparin) 5,000 units SC Q12 [facility] Last Admin: 08/01/16 11:48 Dose: 5,000 units Hydralazine HCl (Apresoline) 10 mg PO Q8 [facility] Last Admin: 08/01/16 05:33 Dose: Not Given Piperacillin Sod/Tazobactam Sod (Zosyn 2.25 Gm Iv Premix) 2.25 gm in 50 mls @ 100 mls/hr IVPB Q6H [facility] Last Admin: 08/01/16 06:00 Dose: 100 mls/hr Metronidazole (Flagyl) 500 mg in 100 mls @ 100 mls/hr IVPB Q8 [facility] Last Admin: 08/01/16 05:32 Dose: 100 mls/hr Dexmedetomidine HCl 200 mcg/ (Sodium Chloride) 50 mls @ 3.47 mls/hr IV TITR PRN ; Protocol; 0.2 MCG/KG/HR PRN Reason: Sedation Last Admin: 07/30/16 09:05 Dose: 0.08 mcg/kg/hr, 1.5 mls/hr Insulin Aspart (Novolog) 0 unit SC Q6H [facility] PRN Reason: Protocol Last Admin: 08/01/16 11:38 Dose: Not Given Insulin Glargine (Lantus) 10 unit SC HS [facility] Last Admin: 07/31/16 21:34 Dose: 10 units Midazolam HCl (Versed Inj) 2 mg IVP Q3 PRN Last Admin: 07/28/16 17:23 Dose: 2 mg Nifedipine (Procardia) 10 mg PO BID [facility] Last Admin: 08/01/16 10:19 Dose: Not Given - Labs Labs: 08/01/16 06:20 08/01/16 06:22 PT 11.4 SECONDS (9.7-12.2) 07/29/16 06:09 INR 1.0 07/29/16 06:09 APTT 28 SECONDS (21-34) 07/29/16 06:09 - Constitutional Appears: Toxic, No Acute Distress - Head Exam Head Exam: ATRAUMATIC, NORMAL INSPECTION, NORMOCEPHALIC - Respiratory Exam Respiratory Exam: Clear to Ausculation Bilateral, NORMAL BREATHING PATTERN. absent: Rales, Rhonchi - Cardiovascular Exam Cardiovascular Exam: RRR, +S1, +S2 - GI/Abdominal Exam GI & Abdominal Exam: Soft, Normal Bowel Sounds. absent: Tenderness - Extremities Exam Extremities Exam: absent: Pedal Edema - Neurological Exam Neurological Exam: Alert. absent: Awake - Skin Skin Exam: Intact, Normal Color, Warm Assessment and Plan (1) CHF (congestive heart failure) Assessment & Plan: Pt with dilated cardiomyopathy EF 10% Good candidate for life vest once transferred out of ICU Status: Acute
--- NOTE | 2016-08-01 12:06 | CP.PCM.PN ---
Subjective - Date & Time of Evaluation Date of Evaluation: 08/01/16 Time of Evaluation: 12:06 - Subjective Subjective: pt seen and examined, follow up consult is dictated #[id number] seen in hd Objective - Vital Signs/Intake and Output Vital Signs (last 24 hours): Temp Pulse Resp BP Pulse Ox 98.1 F 78 16 115/75 91 L 08/01/16 08:41 08/01/16 10:11 08/01/16 10:11 08/01/16 11:41 08/01/16 10:11 Intake and Output: 08/01/16 08/01/16 06:59 18:59 Intake Total 325 0 Output Total 440 135 Balance -115 -135 - Medications Medications: Current Medications Albuterol/Ipratropium (Duoneb 3 Mg/0.5 Mg (3 Ml) Ud) 3 ml INH RQ6 [facility] Last Admin: 08/01/16 08:18 Dose: 3 ml Carvedilol (Coreg) 3.125 mg PO BID [facility] Last Admin: 08/01/16 10:17 Dose: Not Given Dexamethasone (Decadron Inj) 4 mg IV Q12 [facility] Last Admin: 08/01/16 11:48 Dose: 4 mg Famotidine (Pepcid) 20 mg PO DAILY [facility] Last Admin: 07/31/16 09:49 Dose: 20 mg Furosemide (Lasix) 60 mg IVP Q12 [facility] Last Admin: 07/29/16 23:09 Dose: 60 mg Heparin Sodium (Porcine) (Heparin) 5,000 units SC Q12 [facility] Last Admin: 08/01/16 11:48 Dose: 5,000 units Hydralazine HCl (Apresoline) 10 mg PO Q8 [facility] Last Admin: 08/01/16 05:33 Dose: Not Given Piperacillin Sod/Tazobactam Sod (Zosyn 2.25 Gm Iv Premix) 2.25 gm in 50 mls @ 100 mls/hr IVPB Q6H [facility] Last Admin: 08/01/16 12:02 Dose: 100 mls/hr Metronidazole (Flagyl) 500 mg in 100 mls @ 100 mls/hr IVPB Q8 [facility] Last Admin: 08/01/16 05:32 Dose: 100 mls/hr Dexmedetomidine HCl 200 mcg/ (Sodium Chloride) 50 mls @ 3.47 mls/hr IV TITR PRN ; Protocol; 0.2 MCG/KG/HR PRN Reason: Sedation Last Admin: 07/30/16 09:05 Dose: 0.08 mcg/kg/hr, 1.5 mls/hr Insulin Aspart (Novolog) 0 unit SC Q6H [facility] PRN Reason: Protocol Last Admin: 08/01/16 11:38 Dose: Not Given Insulin Glargine (Lantus) 10 unit SC HS [facility] Last Admin: 07/31/16 21:34 Dose: 10 units Midazolam HCl (Versed Inj) 2 mg IVP Q3 [facility] Last Admin: 07/28/16 17:23 Dose: 2 mg Nifedipine (Procardia) 10 mg PO BID [facility] Last Admin: 08/01/16 10:19 Dose: Not Given - Labs Labs: 08/01/16 06:20 08/01/16 06:22 PT 11.4 SECONDS (9.7-12.2) 07/29/16 06:09 INR 1.0 07/29/16 06:09 APTT 28 SECONDS (21-34) 07/29/16 06:09
--- NOTE | 2016-08-01 13:40 | CP.PCM.PN ---
Subjective - Date & Time of Evaluation Date of Evaluation: 08/01/16 Time of Evaluation: 08:00 - Subjective Subjective: remains alert bed bound renal on board all cultures neg except yeast in sputum Objective - Vital Signs/Intake and Output Vital Signs (last 24 hours): Temp Pulse Resp BP Pulse Ox 98.3 F 69 14 115/75 94 L 08/01/16 11:46 08/01/16 11:46 08/01/16 11:46 08/01/16 11:46 08/01/16 11:46 Intake and Output: 08/01/16 08/01/16 06:59 18:59 Intake Total 325 0 Output Total 440 135 Balance -115 -135 - Medications Medications: Current Medications Albuterol/Ipratropium (Duoneb 3 Mg/0.5 Mg (3 Ml) Ud) 3 ml INH RQ6 [facility] Last Admin: 08/01/16 13:20 Dose: 3 ml Carvedilol (Coreg) 3.125 mg PO BID [facility] Last Admin: 08/01/16 10:17 Dose: Not Given Dexamethasone (Decadron Inj) 4 mg IV Q12 [facility] Last Admin: 08/01/16 11:48 Dose: 4 mg Famotidine (Pepcid) 20 mg PO DAILY [facility] Last Admin: 07/31/16 09:49 Dose: 20 mg Furosemide (Lasix) 60 mg IVP Q12 [facility] Last Admin: 07/29/16 23:09 Dose: 60 mg Heparin Sodium (Porcine) (Heparin) 5,000 units SC Q12 [facility] Last Admin: 08/01/16 11:48 Dose: 5,000 units Hydralazine HCl (Apresoline) 10 mg PO Q8 [facility] Last Admin: 08/01/16 05:33 Dose: Not Given Piperacillin Sod/Tazobactam Sod (Zosyn 2.25 Gm Iv Premix) 2.25 gm in 50 mls @ 100 mls/hr IVPB Q6H [facility] Last Admin: 08/01/16 12:02 Dose: 100 mls/hr Metronidazole (Flagyl) 500 mg in 100 mls @ 100 mls/hr IVPB Q8 [facility] Last Admin: 08/01/16 05:32 Dose: 100 mls/hr Dexmedetomidine HCl 200 mcg/ (Sodium Chloride) 50 mls @ 3.47 mls/hr IV TITR PRN ; Protocol; 0.2 MCG/KG/HR PRN Reason: Sedation Last Admin: 07/30/16 09:05 Dose: 0.08 mcg/kg/hr, 1.5 mls/hr Insulin Aspart (Novolog) 0 unit SC Q6H [facility] PRN Reason: Protocol Last Admin: 08/01/16 11:38 Dose: Not Given Insulin Glargine (Lantus) 10 unit SC HS [facility] Last Admin: 07/31/16 21:34 Dose: 10 units Midazolam HCl (Versed Inj) 2 mg IVP Q3 [facility]N Last Admin: 07/28/16 17:23 Dose: 2 mg Nifedipine (Procardia) 10 mg PO BID [facility] Last Admin: 08/01/16 10:19 Dose: Not Given - Labs Labs: 08/01/16 06:20 08/01/16 06:22 PT 11.4 SECONDS (9.7-12.2) 07/29/16 06:09 INR 1.0 07/29/16 06:09 APTT 28 SECONDS (21-34) 07/29/16 06:09 - Constitutional Appears: Non-toxic, Chronically Ill - Head Exam Head Exam: NORMOCEPHALIC - Eye Exam Eye Exam: PERRL. absent: Scleral icterus - ENT Exam ENT Exam: Mucous Membranes Dry - Neck Exam Neck Exam: absent: Lymphadenopathy - Respiratory Exam Respiratory Exam: Decreased Breath Sounds, Rhonchi - Cardiovascular Exam Cardiovascular Exam: REGULAR RHYTHM, +S1, +S2 - GI/Abdominal Exam GI & Abdominal Exam: Distended, Soft. 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
[2016-08-01] MEDS: Nystatin 100,000 Units/ml Oral Susp 5 ml UD PO SCH ×2 (18:26→22:26)
--- NOTE | 2016-08-01 21:39 | PN ---
DATE: 08/01/2016 The patient is located in ICU, room 6. REQUESTED BY: Dr. Anthony Mclaughlin. REASON FOR RENAL CONSULTATION: Acute renal failure, on hemodialysis. HISTORY OF PRESENT ILLNESS: The patient is an 80-year-old elderly female from [facility] who was admitted with chief complaints of nausea, vomiting, diarrhea, abdominal pain for 3-4 da ys prior to the admission, who came from [facility] after staying for 5 months. The patient was found to have low platelets and also increased BUN and creatinine and altered mental status. The patient was suspected of TTP and started on FFP subsequently. The patient was treated with plasmaph eresis as requested by supervisor lens generating and her hospital course was also complicated by respiratory failu re and cardiomyopathy and worsening renal function requiring transfer to ICU and intubation. Started on hemodialysis also. Patient was extubated yesterday. The patient is feeling better, not in acute distress. The patient underwent hemodialysis this morning, had ultrafiltration about 3 liters, not in acute distress, no chest pain, no palpitations, no fever, no cough. Patient's daughter at bedside . PHYSICAL EXAMINATION: VITAL SIGNS: This morning are as follows: Blood pressure this morning 115/75, pulse 72, respiration s 15, saturation 97%, and temperature is 97.6. Height is 5 feet 4 inches and weight is 151 pounds. GENERAL: The patient is an 80-year-old elderly female, moderately built, moderately nourish ed, not in acute distress. HEENT: Pupils normal, reactive to light and accommodation. Conjunctivae pink. Sclerae anicteric. Tongue is moist. NECK: Trachea is midline. LUNGS: Symmetric on both sides. Bilateral breath sounds present. Clear on auscultation. CARDIOVASCULAR: [place] at the fifth intercostal space midclavicular line. S1 and S2 audible. No murm ur or gallop. ABDOMEN: Normal in appearance, soft, tympanic. No guarding, no rigidity. No hepatosplenomegaly. CENTRAL NERVOUS SYSTEM: The patient is alert, awake, oriented x 2-3. Sensory and motor system is gr ossly within normal limits. EXTREMITIES: No cyanosis, no clubbing, no edema. Her I's and O's as follows: Intake is 692, output is 610. CURRENT MEDICATIONS: Include as follows: Hydralazine 10 mg p.o. q. 8 hours, Coreg 3.125 mg p.o. b. i.d., Decadron 4 mg IV q. 12 hours, Flagyl 500 mg IV piggyback q. 8 hours, subQ heparin 5000 q. 8 haroldo rs, subQ heparin 5000 q. 12 hours, Lantus 10 units subQ at bedtime and Lasix 60 mg IV q. 12 hours, No voLog for sliding scale, nystatin oral syrup 5 mL p.o. q.i.d., Pepcid 20 mg p.o. daily, nifedipine 10 mg p.o. b.i.d. and Zosyn 2.25 grams IV q. 6 hours. LABORATORY DATA: Include as follows: As of 08/01/2016: WBC 12.6, hemoglobin 10.4, hematocrit is 32 .5, platelets 113, neutrophils is 91, bands 2, and lymph is 2, and eosinophils are 5. Other laborato ry data: Sodium is 138, potassium 3.1, chloride 95, CO2 29, BUN 97 and creatinine 5.2 and glucose is 112, calcium 8.1, phosphorous 5.0, magnesium 2.2, total bili is 0.8, AST 28, ALT 36, alkaline phosph atase is 301, total protein 5.9, and albumin is 3.0. Chest x-ray as of 07/31/2016. IMPRESSION: Moderate venous congestion and small bilateral pleural effusions with patchy bibasilar a irspace opacities. SUMMARY: The patient is an 80-year-old elderly female from [facility] with a histor y of hypertension, arthritis, was admitted with nausea, vomiting, diarrhea, abdominal pain, low plate lets, increased BUN and creatinine, status post treatment for TTP with FFP and plasmapheresis and acu te renal failure on hemodialysis with a low ejection fraction and bilateral infiltrates and effusion and respiratory failure, status post extubation. 1. Nonoliguric acute renal failure on chronic kidney disease. 2. Cardiomyopathy. 3. Bilateral pneumonia. 4. Thrombocytopenia, rule out TTP, rule out secondary to dengue fever. 5. Hypertension. The patient underwent hemodialysis today, had ultrafiltration about 3 liters. The patient will need Perm-A-Cath until renal function improves as the right femoral is more than 1 week old. Discuss with seat trimmer and also ICU resident. We will follow with you. Thank you for allowing me to participate in your patient's care. Continue antibiotics as per ID hector mmendations. Follow up with the supervisor lens generating. Horacio Graham MD cc: [id number] TT: 08/01/2016 21:39:04 Confirmation # [id number] Dictation # [id number] an
[2016-08-01] MEDS: (Lantus) Insulin Glargine, Recombinant SC SCH (22:25)
[2016-08-01] MEDS: Latanoprost 2.5 ml Opht Soln OU SCH (22:27)
[2016-08-02] MEDS: (Novolog) Insulin Aspart, Recombinant 100 u/ml 10 ml vial SC SCH ×4 (00:52→17:33)
[2016-08-02] MEDS: Piperacill/Tazo 2.25gm in Dex 2.25 GM/50 ML BAG IVPB SCH ×3 (02:06→13:12)
[2016-08-02] MEDS: metroNIDAZOLE IV 500 mg/100 ml 500 MG/100 ML BAG IVPB SCH ×3 (05:01→21:22)
--- NOTE | 2016-08-02 05:42 | CP.PCM.PN ---
Subjective - Date & Time of Evaluation Date of Evaluation: 08/02/16 Time of Evaluation: 05:42 Objective - Vital Signs/Intake and Output Vital Signs (last 24 hours): Temp Pulse Resp BP Pulse Ox 98.7 F 68 20 150/77 96 08/02/16 01:40 08/02/16 01:40 08/02/16 01:40 08/02/16 01:40 08/02/16 01:40 Intake and Output: 08/01/16 08/02/16 18:59 06:59 Intake Total 380 Output Total 170 Balance 210 - Medications Medications: Current Medications Carvedilol (Coreg) 3.125 mg PO BID [facility] Last Admin: 08/01/16 18:26 Dose: 3.125 mg Dexamethasone (Decadron Inj) 4 mg IV Q12 [facility] Last Admin: 08/01/16 22:21 Dose: 4 mg Famotidine (Pepcid) 20 mg PO DAILY [facility] Last Admin: 08/01/16 16:03 Dose: 20 mg Furosemide (Lasix) 60 mg IVP Q12 [facility] Last Admin: 07/29/16 23:09 Dose: 60 mg Heparin Sodium (Porcine) (Heparin) 5,000 units SC Q12 [facility] Last Admin: 08/01/16 22:26 Dose: 5,000 units Hydralazine HCl (Apresoline) 10 mg PO Q8 [facility] Last Admin: 08/01/16 22:19 Dose: 10 mg Piperacillin Sod/Tazobactam Sod (Zosyn 2.25 Gm Iv Premix) 2.25 gm in 50 mls @ 100 mls/hr IVPB Q6H [facility] Last Admin: 08/02/16 02:06 Dose: 100 mls/hr Metronidazole (Flagyl) 500 mg in 100 mls @ 100 mls/hr IVPB Q8 [facility] Last Admin: 08/02/16 05:01 Dose: 100 mls/hr Dexmedetomidine HCl 200 mcg/ (Sodium Chloride) 50 mls @ 3.47 mls/hr IV TITR PRN ; Protocol; 0.2 MCG/KG/HR PRN Reason: Sedation Last Admin: 07/30/16 09:05 Dose: 0.08 mcg/kg/hr, 1.5 mls/hr Insulin Aspart (Novolog) 0 unit SC Q6H [facility] PRN Reason: Protocol Last Admin: 08/02/16 00:52 Dose: Not Given Insulin Glargine (Lantus) 10 unit SC HS [facility] Last Admin: 08/01/16 22:25 Dose: 10 units Latanoprost (Xalatan Opht) 0 ml OU HS [facility] Last Admin: 08/01/16 22:27 Dose: 2.5 ml Midazolam HCl (Versed Inj) 2 mg IVP Q3 [facility] Last Admin: 07/28/16 17:23 Dose: 2 mg Nifedipine (Procardia) 10 mg PO BID [facility] Last Admin: 08/01/16 18:26 Dose: 10 mg Nystatin (Nystatin Oral Susp) 5 ml PO QID [facility] Last Admin: 08/01/16 22:26 Dose: 5 ml - Labs Labs: 08/01/16 06:20 08/01/16 06:22 PT 11.4 SECONDS (9.7-12.2) 07/29/16 06:09 INR 1.0 07/29/16 06:09 APTT 28 SECONDS (21-34) 07/29/16 06:09
--- NOTE | 2016-08-02 08:32 | CP.PCM.PN ---
Subjective - Date & Time of Evaluation Date of Evaluation: 07/30/16 Time of Evaluation: 09:35 - Subjective Subjective: failed weaning off vent required re-intubation discussed w/ Dr Richter Objective - Vital Signs/Intake and Output Vital Signs (last 24 hours): Temp Pulse Resp BP Pulse Ox 97.4 F L 68 20 131/74 96 08/02/16 07:51 08/02/16 07:51 08/02/16 07:51 08/02/16 07:51 08/02/16 07:51 Intake and Output: 08/02/16 08/02/16 06:59 18:59 Intake Total 210 Balance 210 - Medications Medications: Current Medications Carvedilol (Coreg) 3.125 mg PO BID [facility] Last Admin: 08/01/16 18:26 Dose: 3.125 mg Dexamethasone (Decadron Inj) 4 mg IV Q12 [facility] Last Admin: 08/01/16 22:21 Dose: 4 mg Famotidine (Pepcid) 20 mg PO DAILY [facility] Last Admin: 08/01/16 16:03 Dose: 20 mg Furosemide (Lasix) 60 mg IVP Q12 [facility] Last Admin: 07/29/16 23:09 Dose: 60 mg Heparin Sodium (Porcine) (Heparin) 5,000 units SC Q12 [facility] Last Admin: 08/01/16 22:26 Dose: 5,000 units Hydralazine HCl (Apresoline) 10 mg PO Q8 [facility] Last Admin: 08/02/16 06:03 Dose: 10 mg Piperacillin Sod/Tazobactam Sod (Zosyn 2.25 Gm Iv Premix) 2.25 gm in 50 mls @ 100 mls/hr IVPB Q6H [facility] Last Admin: 08/02/16 06:01 Dose: 100 mls/hr Metronidazole (Flagyl) 500 mg in 100 mls @ 100 mls/hr IVPB Q8 [facility] Last Admin: 08/02/16 05:01 Dose: 100 mls/hr Dexmedetomidine HCl 200 mcg/ (Sodium Chloride) 50 mls @ 3.47 mls/hr IV TITR PRN ; Protocol; 0.2 MCG/KG/HR PRN Reason: Sedation Last Admin: 07/30/16 09:05 Dose: 0.08 mcg/kg/hr, 1.5 mls/hr Insulin Aspart (Novolog) 0 unit SC Q6H [facility] PRN Reason: Protocol Last Admin: 08/02/16 06:33 Dose: Not Given Insulin Glargine (Lantus) 10 unit SC HS [facility] Last Admin: 08/01/16 22:25 Dose: 10 units Latanoprost (Xalatan Opht) 0 ml OU HS [facility] Last Admin: 08/01/16 22:27 Dose: 2.5 ml Midazolam HCl (Versed Inj) 2 mg IVP Q3 [facility] Last Admin: 07/28/16 17:23 Dose: 2 mg Nifedipine (Procardia) 10 mg PO BID [facility] Last Admin: 08/01/16 18:26 Dose: 10 mg Nystatin (Nystatin Oral Susp) 5 ml PO QID [facility] Last Admin: 08/01/16 22:26 Dose: 5 ml - Labs Labs: 08/01/16 06:20 08/01/16 06:22 PT 11.4 SECONDS (9.7-12.2) 07/29/16 06:09 INR 1.0 07/29/16 06:09 APTT 28 SECONDS (21-34) 07/29/16 06:09 - Constitutional Appears: Chronically Ill - Head Exam Head Exam: ATRAUMATIC - Eye Exam Eye Exam: absent: Scleral icterus Pupil Exam: absent: Unequal - ENT Exam ENT Exam: Mucous Membranes Moist - Neck Exam Neck Exam: Full ROM - Respiratory Exam Respiratory Exam: Decreased Breath Sounds, Rhonchi - Cardiovascular Exam Cardiovascular Exam: REGULAR RHYTHM - GI/Abdominal Exam GI & Abdominal Exam: Soft. absent: Tenderness - Extremities Exam Extremities Exam: absent: Calf Tenderness, Pedal Edema - Neurological Exam Neurological Exam: Awake Assessment and Plan - Assessment and Plan (Free Text) Assessment: Acute respiratory failure Dilated cardiomyopathy ESRD Thrombocytopenia HTN Plan: Cont Abtx Supportive treatment Prognosis guarded
--- NOTE | 2016-08-02 08:45 | CP.PCM.PN ---
Subjective - Date & Time of Evaluation Date of Evaluation: 07/31/16 Time of Evaluation: 09:00 - Subjective Subjective: remains intubated on C-pap tolerating feeding platelets improved family bedside Objective - Vital Signs/Intake and Output Vital Signs (last 24 hours): Temp Pulse Resp BP Pulse Ox 97.4 F L 68 20 131/74 96 08/02/16 07:51 08/02/16 07:51 08/02/16 07:51 08/02/16 07:51 08/02/16 07:51 Intake and Output: 08/02/16 08/02/16 06:59 18:59 Intake Total 210 Balance 210 - Medications Medications: Current Medications Carvedilol (Coreg) 3.125 mg PO BID [facility] Last Admin: 08/01/16 18:26 Dose: 3.125 mg Dexamethasone (Decadron Inj) 4 mg IV Q12 [facility] Last Admin: 08/01/16 22:21 Dose: 4 mg Famotidine (Pepcid) 20 mg PO DAILY [facility] Last Admin: 08/01/16 16:03 Dose: 20 mg Furosemide (Lasix) 60 mg IVP Q12 [facility] Last Admin: 07/29/16 23:09 Dose: 60 mg Heparin Sodium (Porcine) (Heparin) 5,000 units SC Q12 [facility] Last Admin: 08/01/16 22:26 Dose: 5,000 units Hydralazine HCl (Apresoline) 10 mg PO Q8 [facility] Last Admin: 08/02/16 06:03 Dose: 10 mg Piperacillin Sod/Tazobactam Sod (Zosyn 2.25 Gm Iv Premix) 2.25 gm in 50 mls @ 100 mls/hr IVPB Q6H [facility] Last Admin: 08/02/16 06:01 Dose: 100 mls/hr Metronidazole (Flagyl) 500 mg in 100 mls @ 100 mls/hr IVPB Q8 [facility] Last Admin: 08/02/16 05:01 Dose: 100 mls/hr Dexmedetomidine HCl 200 mcg/ (Sodium Chloride) 50 mls @ 3.47 mls/hr IV TITR PRN ; Protocol; 0.2 MCG/KG/HR PRN Reason: Sedation Last Admin: 07/30/16 09:05 Dose: 0.08 mcg/kg/hr, 1.5 mls/hr Insulin Aspart (Novolog) 0 unit SC Q6H [facility] PRN Reason: Protocol Last Admin: 08/02/16 06:33 Dose: Not Given Insulin Glargine (Lantus) 10 unit SC HS [facility] Last Admin: 08/01/16 22:25 Dose: 10 units Latanoprost (Xalatan Opht) 0 ml OU HS [facility] Last Admin: 08/01/16 22:27 Dose: 2.5 ml Midazolam HCl (Versed Inj) 2 mg IVP Q3 PRN Last Admin: 07/28/16 17:23 Dose: 2 mg Nifedipine (Procardia) 10 mg PO BID [facility] Last Admin: 08/01/16 18:26 Dose: 10 mg Nystatin (Nystatin Oral Susp) 5 ml PO QID [facility] Last Admin: 08/01/16 22:26 Dose: 5 ml - Labs Labs: 08/01/16 06:20 08/01/16 06:22 PT 11.4 SECONDS (9.7-12.2) 07/29/16 06:09 INR 1.0 07/29/16 06:09 APTT 28 SECONDS (21-34) 07/29/16 06:09 - Constitutional Appears: Chronically Ill - Eye Exam Eye Exam: absent: Scleral icterus - ENT Exam ENT Exam: Mucous Membranes Dry - Neck Exam Neck Exam: Full ROM - Respiratory Exam Respiratory Exam: Decreased Breath Sounds - Cardiovascular Exam Cardiovascular Exam: REGULAR RHYTHM - GI/Abdominal Exam GI & Abdominal Exam: Soft. absent: Tenderness - Extremities Exam Extremities Exam: absent: Calf Tenderness - Neurological Exam Neurological Exam: Awake Assessment and Plan - Assessment and Plan (Free Text) Assessment: Acute respiratory failure Possible TTP 2ndary to Dengue ESRD on HD HTN Dilated cardiomyopathy Hx of Scleroderma Plan: Cont abtx Vent management by cops Cont hemodialysis Prognosis guarded
--- NOTE | 2016-08-02 08:55 | CP.PCM.PN ---
Subjective - Date & Time of Evaluation Date of Evaluation: 08/01/16 Time of Evaluation: 15:00 - Subjective Subjective: awake no bleeding all cultures negative except for urine+yeast Objective - Vital Signs/Intake and Output Vital Signs (last 24 hours): Temp Pulse Resp BP Pulse Ox 97.4 F L 68 20 131/74 96 08/02/16 07:51 08/02/16 07:51 08/02/16 07:51 08/02/16 07:51 08/02/16 07:51 Intake and Output: 08/02/16 08/02/16 06:59 18:59 Intake Total 210 Balance 210 - Medications Medications: Current Medications Carvedilol (Coreg) 3.125 mg PO BID [facility] Last Admin: 08/01/16 18:26 Dose: 3.125 mg Dexamethasone (Decadron Inj) 4 mg IV Q12 [facility] Last Admin: 08/01/16 22:21 Dose: 4 mg Famotidine (Pepcid) 20 mg PO DAILY [facility] Last Admin: 08/01/16 16:03 Dose: 20 mg Furosemide (Lasix) 60 mg IVP Q12 [facility] Last Admin: 07/29/16 23:09 Dose: 60 mg Heparin Sodium (Porcine) (Heparin) 5,000 units SC Q12 [facility] Last Admin: 08/01/16 22:26 Dose: 5,000 units Hydralazine HCl (Apresoline) 10 mg PO Q8 [facility] Last Admin: 08/02/16 06:03 Dose: 10 mg Piperacillin Sod/Tazobactam Sod (Zosyn 2.25 Gm Iv Premix) 2.25 gm in 50 mls @ 100 mls/hr IVPB Q6H [facility] Last Admin: 08/02/16 06:01 Dose: 100 mls/hr Metronidazole (Flagyl) 500 mg in 100 mls @ 100 mls/hr IVPB Q8 [facility] Last Admin: 08/02/16 05:01 Dose: 100 mls/hr Dexmedetomidine HCl 200 mcg/ (Sodium Chloride) 50 mls @ 3.47 mls/hr IV TITR PRN ; Protocol; 0.2 MCG/KG/HR PRN Reason: Sedation Last Admin: 07/30/16 09:05 Dose: 0.08 mcg/kg/hr, 1.5 mls/hr Insulin Aspart (Novolog) 0 unit SC Q6H [facility] PRN Reason: Protocol Last Admin: 08/02/16 06:33 Dose: Not Given Insulin Glargine (Lantus) 10 unit SC HS [facility] Last Admin: 08/01/16 22:25 Dose: 10 units Latanoprost (Xalatan Opht) 0 ml OU HS [facility] Last Admin: 08/01/16 22:27 Dose: 2.5 ml Midazolam HCl (Versed Inj) 2 mg IVP Q3 PRN Last Admin: 07/28/16 17:23 Dose: 2 mg Nifedipine (Procardia) 10 mg PO BID [facility] Last Admin: 08/01/16 18:26 Dose: 10 mg Nystatin (Nystatin Oral Susp) 5 ml PO QID [facility] Last Admin: 08/01/16 22:26 Dose: 5 ml - Labs Labs: 08/01/16 06:20 08/01/16 06:22 PT 11.4 SECONDS (9.7-12.2) 07/29/16 06:09 INR 1.0 07/29/16 06:09 APTT 28 SECONDS (21-34) 07/29/16 06:09 - Constitutional Appears: Chronically Ill - Eye Exam Eye Exam: absent: Scleral icterus - ENT Exam ENT Exam: Mucous Membranes Moist - Neck Exam Neck Exam: Full ROM - Respiratory Exam Respiratory Exam: Decreased Breath Sounds - Cardiovascular Exam Cardiovascular Exam: REGULAR RHYTHM - Extremities Exam Extremities Exam: Full ROM. absent: Calf Tenderness Assessment and Plan - Assessment and Plan (Free Text) Assessment: Acute respiratory failure CHF HTN Possible TTP ESRD Plan: Discussed w/ Dr Richter - considering stopping Abtx Lifevest when pt gets transferred to the floor Prognosis remains guarded Cont HD Monitor platelets
--- NOTE | 2016-08-02 10:13 | CP.PCM.PN ---
Subjective - Date & Time of Evaluation Date of Evaluation: 08/02/16 Time of Evaluation: 10:13 - Subjective Subjective: pt seen and examined, follow up consult is dictated #[id number] for hd on thursday Objective - Vital Signs/Intake and Output Vital Signs (last 24 hours): Temp Pulse Resp BP Pulse Ox 97.4 F L 68 20 131/74 96 08/02/16 07:51 08/02/16 07:51 08/02/16 07:51 08/02/16 07:51 08/02/16 07:51 Intake and Output: 08/02/16 08/02/16 06:59 18:59 Intake Total 210 Balance 210 - Medications Medications: Current Medications Carvedilol (Coreg) 3.125 mg PO BID [facility] Last Admin: 08/01/16 18:26 Dose: 3.125 mg Dexamethasone (Decadron Inj) 4 mg IV Q12 [facility] Last Admin: 08/01/16 22:21 Dose: 4 mg Famotidine (Pepcid) 20 mg PO DAILY [facility] Last Admin: 08/01/16 16:03 Dose: 20 mg Furosemide (Lasix) 60 mg IVP Q12 [facility] Last Admin: 07/29/16 23:09 Dose: 60 mg Heparin Sodium (Porcine) (Heparin) 5,000 units SC Q12 [facility] Last Admin: 08/01/16 22:26 Dose: 5,000 units Hydralazine HCl (Apresoline) 10 mg PO Q8 [facility] Last Admin: 08/02/16 06:03 Dose: 10 mg Piperacillin Sod/Tazobactam Sod (Zosyn 2.25 Gm Iv Premix) 2.25 gm in 50 mls @ 100 mls/hr IVPB Q6H [facility] Last Admin: 08/02/16 06:01 Dose: 100 mls/hr Metronidazole (Flagyl) 500 mg in 100 mls @ 100 mls/hr IVPB Q8 [facility] Last Admin: 08/02/16 05:01 Dose: 100 mls/hr Dexmedetomidine HCl 200 mcg/ (Sodium Chloride) 50 mls @ 3.47 mls/hr IV TITR PRN ; Protocol; 0.2 MCG/KG/HR PRN Reason: Sedation Last Admin: 07/30/16 09:05 Dose: 0.08 mcg/kg/hr, 1.5 mls/hr Insulin Aspart (Novolog) 0 unit SC Q6H [facility] PRN Reason: Protocol Last Admin: 08/02/16 06:33 Dose: Not Given Insulin Glargine (Lantus) 10 unit SC HS [facility] Last Admin: 08/01/16 22:25 Dose: 10 units Latanoprost (Xalatan Opht) 0 ml OU HS [facility] Last Admin: 08/01/16 22:27 Dose: 2.5 ml Midazolam HCl (Versed Inj) 2 mg IVP Q3 PRN Last Admin: 07/28/16 17:23 Dose: 2 mg Nifedipine (Procardia) 10 mg PO BID [facility] Last Admin: 08/01/16 18:26 Dose: 10 mg Nystatin (Nystatin Oral Susp) 5 ml PO QID [facility] Last Admin: 08/01/16 22:26 Dose: 5 ml - Labs Labs: 08/01/16 06:20 08/01/16 06:22 PT 11.4 SECONDS (9.7-12.2) 07/29/16 06:09 INR 1.0 07/29/16 06:09 APTT 28 SECONDS (21-34) 07/29/16 06:09
[2016-08-02] MEDS: Nystatin 100,000 Units/ml Oral Susp 5 ml UD PO SCH ×5 (10:51→21:22)
[2016-08-02] MEDS: Dexamethasone 4 mg/1 ml IV SCH ×2 (10:52→21:32)
--- NOTE | 2016-08-02 11:26 | PN ---
DATE: 08/02/2016 The patient is located in room 353, bed B. REQUESTED BY: Dr. Anthony Mclaughlin. REASON FOR FOLLOWUP: Acute renal failure, chronic kidney disease, continuation of hemodialysis. HISTORY OF PRESENT ILLNESS: The patient is an 80-year-old elderly female with a history of hypertension, arthritis, who recently returned from [facility] after 5 months' vacation with nausea, vomiting, abdominal pain and diarrhea for 3-4 days prior to the admission and found to have low platelets and increased BUN and creatinine, being treated for acute renal failure, status post treatment for the respiratory failure, CHF, cardiomyopathy and TTP. The patient is off ventilator. The patient is feeling better, not in distress, no chest pain, no palpitations, no fever, no cough. PHYSICAL EXAMINATION: VITAL SIGNS: As follows: Blood pressure 131/74, pulse 68, respirations 20, temperature 97.4, saturation 96%, height 5 feet 4 inches and weight 151 pounds. GENERAL: The patient is an 80-year-old elderly female, moderately built, moderately nourished, not in any distress. HEENT: Pupils normal, reactive to light and accommodation. Conjunctivae pink. Sclerae anicteric. Tongue is moist. NECK: Trachea is midline. LUNGS: Symmetric on both sides. Bilateral breath sounds present. Clear on auscultation. CARDIOVASCULAR: [place] at the fifth intercostal space midclavicular line. S1 and S2 audible. No murmur or gallop. ABDOMEN: Normal in appearance, soft, tympanic. No guarding, no rigidity. No hepatosplenomegaly. CENTRAL NERVOUS SYSTEM: The patient is arousable, following simple commands. Sensory and motor system is grossly within normal limits. EXTREMITIES: No cyanosis, no clubbing, no edema. CURRENT MEDICATIONS: Hydralazine 10 mg p.o. q. 8 hours, Coreg 3.125 mg p.o. b.i.d., Decadron 4 mg IV q. 12 hours, Flagyl 500 q. 8 hours, subQ heparin 5000 q. 12 hours, Lantus 10 units at bedtime, Lasix 60 mg IV q. 12 hours, NovoLog per sliding scale, Pepcid 20 mg p.o. daily, and Zosyn 2.25 grams q. 6 hours. LABORATORY DATA: Include as follows Accu-Chek 177, 158 171. No new labs are available for today. SUMMARY: This patient is an 80-year-old elderly female with a history of hypertension, arthritis, status post treatment for thrombotic thrombocytopenic purpura, respiratory failure, cardiomyopathy with acute renal failure on hemodialysis. 1. Renal failure, acute on chronic versus acute renal failure. Continue hemodialysis 3 times a week until renal function improves and the patient will need PermCath placement. 2. Hypertension. Blood pressure is stable. 3. Status post thrombotic thrombocytopenic purpura. Follow up platelet levels and also follow up with hematology. 4. Cardiomyopathy. Restrict fluids to 1 liter and follow up with rn referral , Dr. Mclaughlin. Thank you for allowing me to participate in your patient's care. Horacio Graham MD cc: [id number] TT: 08/02/2016 11:26:46 Confirmation # [id number] Dictation # [id number] MTDD
[2016-08-02] MEDS: (Lantus) Insulin Glargine, Recombinant SC SCH (21:23)
[2016-08-02] MEDS: Latanoprost 2.5 ml Opht Soln OU SCH (22:00)
[2016-08-03] MEDS: metroNIDAZOLE IV 500 mg/100 ml 500 MG/100 ML BAG IVPB SCH (05:48)
[2016-08-03] MEDS: (Novolog) Insulin Aspart, Recombinant 100 u/ml 10 ml vial SC SCH ×4 (06:00→18:09)
--- NOTE | 2016-08-03 06:56 | CP.PCM.PN ---
Subjective - Date & Time of Evaluation Date of Evaluation: 08/03/16 Time of Evaluation: 06:55 Objective - Vital Signs/Intake and Output Vital Signs (last 24 hours): Temp Pulse Resp BP Pulse Ox 98.5 F 68 20 125/71 95 08/03/16 00:12 08/03/16 00:12 08/03/16 00:12 08/03/16 00:12 08/03/16 00:12 Intake and Output: 08/02/16 08/03/16 18:59 06:59 Intake Total 250 Balance 250 - Medications Medications: Current Medications Carvedilol (Coreg) 3.125 mg PO BID [facility] Last Admin: 08/02/16 17:32 Dose: 3.125 mg Dexamethasone (Decadron Inj) 4 mg IV Q12 [facility] Last Admin: 08/02/16 21:32 Dose: 4 mg Famotidine (Pepcid) 20 mg PO DAILY [facility] Last Admin: 08/02/16 10:51 Dose: 20 mg Furosemide (Lasix) 60 mg IVP Q12 [facility] Last Admin: 07/29/16 23:09 Dose: 60 mg Heparin Sodium (Porcine) (Heparin) 5,000 units SC Q12 [facility] Last Admin: 08/02/16 21:23 Dose: 5,000 units Hydralazine HCl (Apresoline) 10 mg PO Q8 [facility] Last Admin: 08/03/16 05:48 Dose: 10 mg Metronidazole (Flagyl) 500 mg in 100 mls @ 100 mls/hr IVPB Q8 [facility] Last Admin: 08/03/16 05:48 Dose: 100 mls/hr Dexmedetomidine HCl 200 mcg/ (Sodium Chloride) 50 mls @ 3.47 mls/hr IV TITR PRN ; Protocol; 0.2 MCG/KG/HR PRN Reason: Sedation Last Admin: 07/30/16 09:05 Dose: 0.08 mcg/kg/hr, 1.5 mls/hr Insulin Aspart (Novolog) 0 unit SC Q6H [facility] PRN Reason: Protocol Last Admin: 08/03/16 00:00 Dose: Not Given Insulin Glargine (Lantus) 10 unit SC HS [facility] Last Admin: 08/02/16 21:23 Dose: 10 units Latanoprost (Xalatan Opht) 0 ml OU HS [facility] Last Admin: 08/02/16 22:00 Dose: 2.5 ml Midazolam HCl (Versed Inj) 2 mg IVP Q3 PRN Last Admin: 07/28/16 17:23 Dose: 2 mg Nifedipine (Procardia) 10 mg PO BID [facility] Last Admin: 08/02/16 17:32 Dose: 10 mg Nystatin (Nystatin Oral Susp) 5 ml PO QID [facility] Last Admin: 08/02/16 21:22 Dose: 5 ml - Labs Labs: 08/01/16 06:20 08/01/16 06:22 PT 11.4 SECONDS (9.7-12.2) 07/29/16 06:09 INR 1.0 07/29/16 06:09 APTT 28 SECONDS (21-34) 07/29/16 06:09
[2016-08-03] MEDS: Nystatin 100,000 Units/ml Oral Susp 5 ml UD PO SCH ×4 (11:09→22:13)
[2016-08-03] MEDS: Dexamethasone 4 mg/1 ml IV SCH ×2 (11:09→22:10)
--- NOTE | 2016-08-03 15:44 | CP.PCM.PN ---
Subjective - Date & Time of Evaluation Date of Evaluation: 08/03/16 Time of Evaluation: 06:00 - Subjective Subjective: WEAK B[place]RIDDEN NAD DENIES FEVER CHILLS ABD PAIN Objective - Vital Signs/Intake and Output Vital Signs (last 24 hours): Temp Pulse Resp BP Pulse Ox 98 F 70 20 152/83 H 98 08/03/16 08:00 08/03/16 08:00 08/03/16 08:00 08/03/16 08:00 08/03/16 08:00 Intake and Output: 08/03/16 08/03/16 06:59 18:59 Intake Total 250 340 Balance 250 340 - Medications Medications: Current Medications Carvedilol (Coreg) 3.125 mg PO BID [facility] Last Admin: 08/03/16 10:58 Dose: 3.125 mg Dexamethasone (Decadron Inj) 4 mg IV Q12 [facility] Last Admin: 08/03/16 11:09 Dose: 4 mg Famotidine (Pepcid) 20 mg PO DAILY [facility] Last Admin: 08/03/16 10:58 Dose: 20 mg Furosemide (Lasix) 60 mg IVP Q12 [facility] Last Admin: 07/29/16 23:09 Dose: 60 mg Heparin Sodium (Porcine) (Heparin) 5,000 units SC Q12 [facility] Last Admin: 08/03/16 10:58 Dose: 5,000 units Hydralazine HCl (Apresoline) 10 mg PO Q8 [facility] Last Admin: 08/03/16 14:35 Dose: 10 mg Dexmedetomidine HCl 200 mcg/ (Sodium Chloride) 50 mls @ 3.47 mls/hr IV TITR PRN ; Protocol; 0.2 MCG/KG/HR PRN Reason: Sedation Last Admin: 07/30/16 09:05 Dose: 0.08 mcg/kg/hr, 1.5 mls/hr Insulin Aspart (Novolog) 0 unit SC Q6H [facility] PRN Reason: Protocol Last Admin: 08/03/16 12:51 Dose: 2 unit Insulin Glargine (Lantus) 10 unit SC HS [facility] Last Admin: 08/02/16 21:23 Dose: 10 units Latanoprost (Xalatan Opht) 0 ml OU HS [facility] Last Admin: 08/02/16 22:00 Dose: 2.5 ml Midazolam HCl (Versed Inj) 2 mg IVP Q3 PRN Last Admin: 07/28/16 17:23 Dose: 2 mg Nifedipine (Procardia) 10 mg PO BID [facility] Last Admin: 08/03/16 10:58 Dose: 10 mg Nystatin (Nystatin Oral Susp) 5 ml PO QID [facility] Last Admin: 08/03/16 14:35 Dose: 5 ml - Labs Labs: 08/01/16 06:20 08/01/16 06:22 PT 11.4 SECONDS (9.7-12.2) 07/29/16 06:09 INR 1.0 07/29/16 06:09 APTT 28 SECONDS (21-34) 07/29/16 06:09 - Constitutional Appears: Non-toxic, Cachectic, Chronically Ill - Head Exam Head Exam: NORMOCEPHALIC - Eye Exam Eye Exam: PERRL. absent: Scleral icterus - ENT Exam ENT Exam: Mucous Membranes Dry - Neck Exam Neck Exam: absent: Lymphadenopathy - Respiratory Exam Respiratory Exam: Decreased Breath Sounds, Clear to Ausculation Bilateral - Cardiovascular Exam Cardiovascular Exam: REGULAR RHYTHM, +S1, +S2 - GI/Abdominal Exam GI & Abdominal Exam: Distended, Soft - Rectal Exam Rectal Exam: Deferred - Exam Exam: NORMAL INSPECTION - Extremities Exam Extremities Exam: absent: Calf Tenderness, Pedal Edema - Back Exam Back Exam: absent: CVA tenderness (L), CVA tenderness (R) - Neurological Exam Neurological Exam: Alert, Awake, Oriented x3 - Psychiatric Exam Psychiatric exam: Normal Mood Assessment and Plan (1) Acute respiratory failure requiring reintubation Status: Acute (2) CHF (congestive heart failure) Status: Acute (3) Dehydration Status: Acute (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 - Assessment and Plan (Free Text) Assessment: AFEB OFF ANTIBIOTICS OBSERVE FOR SIGNS/ SYMPTOMS OF SEPSIS WILL NEED GI EVAL
[2016-08-03] MEDS: (Lantus) Insulin Glargine, Recombinant SC SCH (22:10)
[2016-08-03] MEDS: Latanoprost 2.5 ml Opht Soln OU SCH (22:12)
--- NOTE | 2016-08-04 07:59 | CP.PCM.PN ---
Subjective - Date & Time of Evaluation Date of Evaluation: 08/03/16 Time of Evaluation: 18:10 - Subjective Subjective: AWAKE, NAD Afebrile no bleeding Platelet stable >100K breathing comfortable Objective - Vital Signs/Intake and Output Vital Signs (last 24 hours): Temp Pulse Resp BP Pulse Ox 97.7 F 76 20 153/76 H 95 08/04/16 05:30 08/04/16 05:30 08/04/16 05:30 08/04/16 05:30 08/04/16 05:30 Intake and Output: 08/04/16 08/04/16 06:59 18:59 Intake Total 300 Balance 300 - Medications Medications: Current Medications Carvedilol (Coreg) 3.125 mg PO BID [facility] Last Admin: 08/03/16 18:10 Dose: 3.125 mg Dexamethasone (Decadron Inj) 4 mg IV Q12 [facility] Last Admin: 08/03/16 22:10 Dose: 4 mg Famotidine (Pepcid) 20 mg PO DAILY [facility] Last Admin: 08/03/16 10:58 Dose: 20 mg Furosemide (Lasix) 60 mg IVP Q12 [facility] Last Admin: 07/29/16 23:09 Dose: 60 mg Heparin Sodium (Porcine) (Heparin) 5,000 units SC Q12 [facility] Last Admin: 08/03/16 22:11 Dose: 5,000 units Hydralazine HCl (Apresoline) 10 mg PO Q8 [facility] Last Admin: 08/04/16 06:33 Dose: 10 mg Dexmedetomidine HCl 200 mcg/ (Sodium Chloride) 50 mls @ 3.47 mls/hr IV TITR PRN ; Protocol; 0.2 MCG/KG/HR PRN Reason: Sedation Last Admin: 07/30/16 09:05 Dose: 0.08 mcg/kg/hr, 1.5 mls/hr Insulin Aspart (Novolog) 0 unit SC Q6H [facility] PRN Reason: Protocol Last Admin: 08/04/16 00:00 Dose: Not Given Insulin Glargine (Lantus) 10 unit SC HS [facility] Last Admin: 08/03/16 22:10 Dose: 10 units Latanoprost (Xalatan Opht) 0 ml OU HS [facility] Last Admin: 08/03/16 22:12 Dose: 2.5 ml Midazolam HCl (Versed Inj) 2 mg IVP Q3 PRN Last Admin: 07/28/16 17:23 Dose: 2 mg Nifedipine (Procardia) 10 mg PO BID [facility] Last Admin: 08/03/16 18:09 Dose: 10 mg Nystatin (Nystatin Oral Susp) 5 ml PO QID [facility] Last Admin: 08/03/16 22:13 Dose: 5 ml - Labs Labs: 08/01/16 06:20 08/01/16 06:22 PT 11.4 SECONDS (9.7-12.2) 07/29/16 06:09 INR 1.0 07/29/16 06:09 APTT 28 SECONDS (21-34) 07/29/16 06:09 - Constitutional Appears: Non-toxic - Head Exam Head Exam: ATRAUMATIC - Eye Exam Eye Exam: absent: Scleral icterus - ENT Exam ENT Exam: Mucous Membranes Moist - Neck Exam Neck Exam: Full ROM - Respiratory Exam Respiratory Exam: Decreased Breath Sounds, Clear to Ausculation Bilateral, NORMAL BREATHING PATTERN - Cardiovascular Exam Cardiovascular Exam: RRR - GI/Abdominal Exam GI & Abdominal Exam: absent: Soft, Tenderness - Extremities Exam Extremities Exam: absent: Calf Tenderness, Pedal Edema, Tenderness - Neurological Exam Neurological Exam: Altered Assessment and Plan - Assessment and Plan (Free Text) Assessment: CHF, compensated 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
--- NOTE | 2016-08-04 08:08 | CP.PCM.PN ---
Subjective - Date & Time of Evaluation Date of Evaluation: 08/02/16 Time of Evaluation: 10:00 - Subjective Subjective: Out of the CCU NAD demented tolerating dialysis Objective - Vital Signs/Intake and Output Vital Signs (last 24 hours): Temp Pulse Resp BP Pulse Ox 97.7 F 76 20 153/76 H 95 08/04/16 05:30 08/04/16 05:30 08/04/16 05:30 08/04/16 05:30 08/04/16 05:30 Intake and Output: 08/04/16 08/04/16 06:59 18:59 Intake Total 300 Balance 300 - Medications Medications: Current Medications Carvedilol (Coreg) 3.125 mg PO BID [facility] Last Admin: 08/03/16 18:10 Dose: 3.125 mg Dexamethasone (Decadron Inj) 4 mg IV Q12 [facility] Last Admin: 08/03/16 22:10 Dose: 4 mg Famotidine (Pepcid) 20 mg PO DAILY [facility] Last Admin: 08/03/16 10:58 Dose: 20 mg Furosemide (Lasix) 60 mg IVP Q12 [facility] Last Admin: 07/29/16 23:09 Dose: 60 mg Heparin Sodium (Porcine) (Heparin) 5,000 units SC Q12 [facility] Last Admin: 08/03/16 22:11 Dose: 5,000 units Hydralazine HCl (Apresoline) 10 mg PO Q8 [facility] Last Admin: 08/04/16 06:33 Dose: 10 mg Dexmedetomidine HCl 200 mcg/ (Sodium Chloride) 50 mls @ 3.47 mls/hr IV TITR PRN ; Protocol; 0.2 MCG/KG/HR PRN Reason: Sedation Last Admin: 07/30/16 09:05 Dose: 0.08 mcg/kg/hr, 1.5 mls/hr Insulin Aspart (Novolog) 0 unit SC Q6H [facility] PRN Reason: Protocol Last Admin: 08/04/16 00:00 Dose: Not Given Insulin Glargine (Lantus) 10 unit SC HS [facility] Last Admin: 08/03/16 22:10 Dose: 10 units Latanoprost (Xalatan Opht) 0 ml OU HS [facility] Last Admin: 08/03/16 22:12 Dose: 2.5 ml Midazolam HCl (Versed Inj) 2 mg IVP Q3 PRN Last Admin: 07/28/16 17:23 Dose: 2 mg Nifedipine (Procardia) 10 mg PO BID [facility] Last Admin: 08/03/16 18:09 Dose: 10 mg Nystatin (Nystatin Oral Susp) 5 ml PO QID [facility] Last Admin: 08/03/16 22:13 Dose: 5 ml - Labs Labs: 08/01/16 06:20 08/01/16 06:22 PT 11.4 SECONDS (9.7-12.2) 07/29/16 06:09 INR 1.0 07/29/16 06:09 APTT 28 SECONDS (21-34) 07/29/16 06:09 - Constitutional Appears: Non-toxic - Eye Exam Eye Exam: absent: Scleral icterus - ENT Exam ENT Exam: Mucous Membranes Moist - Neck Exam Neck Exam: Full ROM. absent: Lymphadenopathy - Respiratory Exam Respiratory Exam: NORMAL BREATHING PATTERN - Cardiovascular Exam Cardiovascular Exam: REGULAR RHYTHM - GI/Abdominal Exam GI & Abdominal Exam: Rigid, Soft - Extremities Exam Extremities Exam: absent: Calf Tenderness, Pedal Edema - Neurological Exam Neurological Exam: Altered Assessment and Plan - Assessment and Plan (Free Text) Assessment: CHF Acute on chronic renal failure s/p TTP HTN Dementia Plan: Cont dialysis F/u by Nephrology, ID and heme
--- NOTE | 2016-08-04 08:22 | CP.PCM.PN ---
Subjective - Date & Time of Evaluation Date of Evaluation: 08/04/16 Time of Evaluation: 07:45 - Subjective Subjective: seen patient w/ family at bedside comfortable and breathing normally responding to verbal stimuli Objective - Vital Signs/Intake and Output Vital Signs (last 24 hours): Temp Pulse Resp BP Pulse Ox 97.7 F 76 20 153/76 H 95 08/04/16 05:30 08/04/16 05:30 08/04/16 05:30 08/04/16 05:30 08/04/16 05:30 Intake and Output: 08/04/16 08/04/16 06:59 18:59 Intake Total 300 Balance 300 - Medications Medications: Current Medications Carvedilol (Coreg) 3.125 mg PO BID [facility] Last Admin: 08/03/16 18:10 Dose: 3.125 mg Dexamethasone (Decadron Inj) 4 mg IV Q12 [facility] Last Admin: 08/03/16 22:10 Dose: 4 mg Famotidine (Pepcid) 20 mg PO DAILY [facility] Last Admin: 08/03/16 10:58 Dose: 20 mg Furosemide (Lasix) 60 mg IVP Q12 [facility] Last Admin: 07/29/16 23:09 Dose: 60 mg Heparin Sodium (Porcine) (Heparin) 5,000 units SC Q12 [facility] Last Admin: 08/03/16 22:11 Dose: 5,000 units Hydralazine HCl (Apresoline) 10 mg PO Q8 [facility] Last Admin: 08/04/16 06:33 Dose: 10 mg Dexmedetomidine HCl 200 mcg/ (Sodium Chloride) 50 mls @ 3.47 mls/hr IV TITR PRN ; Protocol; 0.2 MCG/KG/HR PRN Reason: Sedation Last Admin: 07/30/16 09:05 Dose: 0.08 mcg/kg/hr, 1.5 mls/hr Insulin Aspart (Novolog) 0 unit SC Q6H [facility] PRN Reason: Protocol Last Admin: 08/04/16 00:00 Dose: Not Given Insulin Glargine (Lantus) 10 unit SC HS [facility] Last Admin: 08/03/16 22:10 Dose: 10 units Latanoprost (Xalatan Opht) 0 ml OU HS [facility] Last Admin: 08/03/16 22:12 Dose: 2.5 ml Midazolam HCl (Versed Inj) 2 mg IVP Q3 PRN Last Admin: 07/28/16 17:23 Dose: 2 mg Nifedipine (Procardia) 10 mg PO BID [facility] Last Admin: 08/03/16 18:09 Dose: 10 mg Nystatin (Nystatin Oral Susp) 5 ml PO QID [facility] Last Admin: 08/03/16 22:13 Dose: 5 ml - Labs Labs: 08/01/16 06:20 08/01/16 06:22 PT 11.4 SECONDS (9.7-12.2) 07/29/16 06:09 INR 1.0 07/29/16 06:09 APTT 28 SECONDS (21-34) 07/29/16 06:09 - Constitutional Appears: No Acute Distress - Head Exam Head Exam: NORMOCEPHALIC - Eye Exam Eye Exam: absent: Scleral icterus - Neck Exam Neck Exam: Full ROM - Respiratory Exam Respiratory Exam: NORMAL BREATHING PATTERN - Cardiovascular Exam Cardiovascular Exam: REGULAR RHYTHM - GI/Abdominal Exam GI & Abdominal Exam: absent: Soft, Tenderness - Extremities Exam Extremities Exam: Calf Tenderness. absent: Pedal Edema, Tenderness - Neurological Exam Neurological Exam: Altered Additional comments: demented Assessment and Plan - Assessment and Plan (Free Text) Assessment: ESRD CHF -compensated TTP HTN Plan: Cont meds Cont HD Case discussed w/ Dr Neelam Valdes Physical therapy [facility]
[2016-08-04 08:27] LABS: HEMOGLOBIN 11.3 g/dL (11.0-16.0); MEAN CELL VOLUME 100.4 fL (81.0-99.0); MEAN CORPUSCULAR HGB CONC 32.8 g/dL (33.0-37.0); MEAN PLATELET VOLUME 11.6 fL (7.2-11.7); RBC 3.42 Mil/uL (3.80-5.20); RED CELL DISTRIBUTION WIDTH 19.2 % (11.5-14.5); WHITE BLOOD COUNT 13.1 K/uL (4.8-10.8)
[2016-08-04 08:39] LABS: INR 1.1; PROTHROMBIN TIME 12.3 SECONDS (9.7-12.2)
[2016-08-04 08:47] LABS: CALCIUM 8.5 mg/dl (8.6-10.4)
--- NOTE | 2016-08-04 10:02 | CP.PCM.PN ---
Subjective - Date & Time of Evaluation Date of Evaluation: 08/04/16 Time of Evaluation: 10:01 - Subjective Subjective: pt seen and examined, follow up consult is dictated #[id number] for hd today after perma cath placement Objective - Vital Signs/Intake and Output Vital Signs (last 24 hours): Temp Pulse Resp BP Pulse Ox 97.9 F 68 20 162/81 H 95 08/04/16 09:00 08/04/16 09:00 08/04/16 09:00 08/04/16 09:00 08/04/16 09:00 Intake and Output: 08/04/16 08/04/16 06:59 18:59 Intake Total 300 Balance 300 - Medications Medications: Current Medications Carvedilol (Coreg) 3.125 mg PO BID [facility] Last Admin: 08/03/16 18:10 Dose: 3.125 mg Dexamethasone (Decadron Inj) 4 mg IV Q12 [facility] Last Admin: 08/03/16 22:10 Dose: 4 mg Famotidine (Pepcid) 20 mg PO DAILY [facility] Last Admin: 08/03/16 10:58 Dose: 20 mg Furosemide (Lasix) 60 mg IVP Q12 [facility] Last Admin: 07/29/16 23:09 Dose: 60 mg Hydralazine HCl (Apresoline) 10 mg PO Q8 [facility] Last Admin: 08/04/16 06:33 Dose: 10 mg Dexmedetomidine HCl 200 mcg/ (Sodium Chloride) 50 mls @ 3.47 mls/hr IV TITR PRN ; Protocol; 0.2 MCG/KG/HR PRN Reason: Sedation Last Admin: 07/30/16 09:05 Dose: 0.08 mcg/kg/hr, 1.5 mls/hr Insulin Aspart (Novolog) 0 unit SC Q6H [facility] PRN Reason: Protocol Last Admin: 08/04/16 00:00 Dose: Not Given Insulin Glargine (Lantus) 10 unit SC HS [facility] Last Admin: 08/03/16 22:10 Dose: 10 units Latanoprost (Xalatan Opht) 0 ml OU HS [facility] Last Admin: 08/03/16 22:12 Dose: 2.5 ml Midazolam HCl (Versed Inj) 2 mg IVP Q3 PRN Last Admin: 07/28/16 17:23 Dose: 2 mg Nifedipine (Procardia) 10 mg PO BID [facility] Last Admin: 08/03/16 18:09 Dose: 10 mg Nystatin (Nystatin Oral Susp) 5 ml PO QID [facility] Last Admin: 08/03/16 22:13 Dose: 5 ml - Labs Labs: 08/04/16 08:22 08/04/16 08:22 PT 12.3 SECONDS (9.7-12.2) H 08/04/16 08:22 INR 1.1 08/04/16 08:22 APTT 26 SECONDS (21-34) 08/04/16 08:22
--- NOTE | 2016-08-04 10:10 | CP.PCM.PN ---
Subjective - Date & Time of Evaluation Date of Evaluation: 08/04/16 Time of Evaluation: 10:07 - Subjective Subjective: Progress Note for Dr. Jules Pt seen and examined at bedside. Pt doing well overnight with no acute events. Pt transferred from ICU to floors. Pt will undergo permacath insertion later today. Denies CP, SOB, N/V/D. Objective - Vital Signs/Intake and Output Vital Signs (last 24 hours): Temp Pulse Resp BP Pulse Ox 97.9 F 68 20 162/81 H 95 08/04/16 09:00 08/04/16 09:00 08/04/16 09:00 08/04/16 09:00 08/04/16 09:00 Intake and Output: 08/04/16 08/04/16 06:59 18:59 Intake Total 300 Balance 300 - Medications Medications: Current Medications Carvedilol (Coreg) 3.125 mg PO BID [facility] Last Admin: 08/03/16 18:10 Dose: 3.125 mg Dexamethasone (Decadron Inj) 4 mg IV Q12 [facility] Last Admin: 08/03/16 22:10 Dose: 4 mg Famotidine (Pepcid) 20 mg PO DAILY [facility] Last Admin: 08/03/16 10:58 Dose: 20 mg Furosemide (Lasix) 60 mg IVP Q12 [facility] Last Admin: 07/29/16 23:09 Dose: 60 mg Hydralazine HCl (Apresoline) 10 mg PO Q8 [facility] Last Admin: 08/04/16 06:33 Dose: 10 mg Dexmedetomidine HCl 200 mcg/ (Sodium Chloride) 50 mls @ 3.47 mls/hr IV TITR PRN ; Protocol; 0.2 MCG/KG/HR PRN Reason: Sedation Last Admin: 07/30/16 09:05 Dose: 0.08 mcg/kg/hr, 1.5 mls/hr Insulin Aspart (Novolog) 0 unit SC Q6H [facility] PRN Reason: Protocol Last Admin: 08/04/16 00:00 Dose: Not Given Insulin Glargine (Lantus) 10 unit SC HS [facility] Last Admin: 08/03/16 22:10 Dose: 10 units Latanoprost (Xalatan Opht) 0 ml OU HS [facility] Last Admin: 08/03/16 22:12 Dose: 2.5 ml Midazolam HCl (Versed Inj) 2 mg IVP Q3 [facility] Last Admin: 07/28/16 17:23 Dose: 2 mg Nifedipine (Procardia) 10 mg PO BID [facility] Last Admin: 08/03/16 18:09 Dose: 10 mg Nystatin (Nystatin Oral Susp) 5 ml PO QID [facility] Last Admin: 08/03/16 22:13 Dose: 5 ml Paricalcitol (Zemplar) 2 mcg IV MWF [facility] - Labs Labs: 08/04/16 08:22 08/04/16 08:22 PT 12.3 SECONDS (9.7-12.2) H 08/04/16 08:22 INR 1.1 08/04/16 08:22 APTT 26 SECONDS (21-34) 08/04/16 08:22 - Constitutional Appears: Non-toxic, No Acute Distress - Head Exam Head Exam: ATRAUMATIC, NORMAL INSPECTION, NORMOCEPHALIC - Respiratory Exam Respiratory Exam: Decreased Breath Sounds, NORMAL BREATHING PATTERN. absent: Rales, Rhonchi - Cardiovascular Exam Cardiovascular Exam: RRR, +S1, +S2 - GI/Abdominal Exam GI & Abdominal Exam: Soft, Normal Bowel Sounds. absent: Tenderness - Extremities Exam Extremities Exam: absent: Calf Tenderness, Pedal Edema - Neurological Exam Neurological Exam: Alert, Awake - Skin Skin Exam: Intact, Normal Color, Warm Assessment and Plan (1) CHF (congestive heart failure) Assessment & Plan: Pt with EF of 10% Pt will be given Life vest on discharge Follow up with Dr. Jules in office in 1 month after discharge Status: Acute
[2016-08-04] MEDS ORDERED: ceFAZolin IV 1 gm in Dextrose 1 GM/50 ML BAG IVPB ONE (10:42)
[2016-08-04] MEDS ORDERED: Midazolam 2 MG/2 ML VIAL ONE (10:42)
[2016-08-04] MEDS ORDERED: Lidocaine 2% Inj (20ml) ONE (10:47)
[2016-08-04] MEDS ORDERED: DiphenhydrAMINE 50 mg/ml Inj ONE (10:47)
[2016-08-04] MEDS ORDERED: Iodixanol 320 MG/ML 100 ML BOTTLE IV ONE (10:54)
--- NOTE | 2016-08-04 11:05 | PCM.SURG1 ---
Surgeon's Initial Post Op Note - Surgeon's Notes Surgeon: Asher Connelly MD Shrimp Packer: NONE Type of Anesthesia: Moderate Sedation{RN} Pre-Operative Diagnosis: Renal failure Operative Findings: Patent left IJV. Right TLC. Post-Operative Diagnosis: Renal failure Operation Performed: Tunneled left IJV HD catheter placement. Tip in SVC. Specimen/Specimens Removed: none Estimated Blood Loss: EBL {In ML}: 4 Blood Products Given: N/A Drains Used: No Drains Post-Op Condition: Fair Date of Surgery/Procedure: 08/04/16 Time of Surgery/Procedure: 11:00
[2016-08-04] MEDS: Dexamethasone 4 mg/1 ml IV SCH ×2 (12:31→22:41)
[2016-08-04] MEDS: Nystatin 100,000 Units/ml Oral Susp 5 ml UD PO SCH ×4 (12:32→22:42)
[2016-08-04] MEDS: (Novolog) Insulin Aspart, Recombinant 100 u/ml 10 ml vial SC SCH ×3 (12:42→18:00)
--- NOTE | 2016-08-04 16:06 | PN ---
DATE: 08/04/2016 SUBJECTIVE: I was asked to see patient again for followup as the patient has been very restless, talat tated and seen in the dialysis room as This patient has been very combative and today also the nurse is having difficulty having the patient for dialysis. The patient is still confused. The patient al so was on Versed p.r.n., which we need to discontinue and the patient will be given Ativan 1 mg IV q. 6 hours p.r.n. so patient will be much calmer during dialysis. The patient is more alert and verbal, but still confused. He was seen with some family members. VITAL SIGNS: Temperature is 98, pulse rate 60, blood pressure 129/68, respirations 20, oxygen satura tion 95%. REVIEW OF SYSTEMS: GENERAL: The patient is alert, seen in the dialysis room, very restless and combative with nurses. SKIN: No pruritus. HEENT: No headache, no dizziness. NECK: Supple. RESPIRATORY: No dyspnea. CARDIOVASCULAR: No chest pain. GASTROINTESTINAL: No nausea, no vomiting. EXTREMITIES: The patient moving extremities. MUSCULOSKELETAL: Feels weak. NEUROLOGIC: Alert with significant periods of confusion. MENTAL STATUS EXAMINATION: Elderly female who looks stated age, oriented x 1, conversing in Norwegian, seen with her family. Speech spontaneous. Affect is reactive. Mood is dysphoric. Thought process confused. Thought content: The patient wants to get out of bed. No overt paranoia. No hallucinat ions. Attention and memory seem to be limited. Insight and judgment limited. Impulse control is gu arded at this time. IMPRESSION: Metabolic encephalopathy, multifactorial, as well as delirium. PLAN AND RECOMMENDATIONS: The patient seen, meds reviewed. May have Ativan 1 mg IV q.6 p.r.n. for a gitation. Continue dialysis as ordered. Continue treatment plan as outlined. We will discontinue t he Versed p.r.n. as ordered earlier by Dr. Ibarra. The patient will be given Ativan to control he r behavior during dialysis. According to the dialysis nurse, patient is very restless and resisting dialysis and dialysis nurse is having a hard time giving her dialysis treatment. Humberto A Ashley MD cc: [id number] TT: 08/04/2016 16:05:57 Confirmation # [id number] Dictation # [id number] sn
[2016-08-04] MEDS: (Lantus) Insulin Glargine, Recombinant SC SCH (22:31)
[2016-08-04] MEDS: Paricalcitol 2 mcg/ml Inj IV SCH (22:50)
[2016-08-04] MEDS: Latanoprost 2.5 ml Opht Soln OU SCH (22:55)
--- NOTE | 2016-08-04 23:17 | PN ---
DATE: 08/04/2016 The patient is located in room 358, bed B. REQUESTED BY: Dr. Anhtony Mclaughlin. REASON FOR FOLLOWUP: Acute renal failure on chronic kidney disease, status post TTP, on hemodialysis 3 times a week. HISTORY OF PRESENT ILLNESS: The patient is an 80-year-old elderly female with a past medical history significant for hypertension, arthritis, who was admitted with a chief complaint of nausea, vomiting, diarrhea, increased BUN and creatinine and low platelets and altered mental status. The patient was found to have TTP by tool maker and started on FFP without significant improvement in platelets. Subsequently, the patient underwent plasmapheresis. The patient is also found to have cardiomyopathy with congestive heart failure, and respiratory failure requiring intubation and transferred to ICU and also the patient developed, [id number] kidney disease versus progression of chronic kidney disease and requiring initiation of the hemodialysis. The patient is not in acute distress, no complaints. PHYSICAL EXAMINATION: VITAL SIGNS: This morning, blood pressure 162/81, pulse 68, respirations 20, temperature 97.9, saturation 95%, height 5 feet 4 inches and weight is 151 pounds. GENERAL: The patient is an 80-year-old elderly female, moderately built, moderately nourished, not in acute distress. HEENT: Pupils normal, reactive to light and accommodation. Conjunctivae pink. Sclerae anicteric. Tongue is moist. NECK: Trachea is midline. LUNGS: Symmetric on both sides. Bilateral breath sounds present. No crackles. CARDIOVASCULAR: S1 and S2 audible. No murmur or gallop. ABDOMEN: Normal in appearance, soft, tympanic. No guarding, no rigidity. No hepatosplenomegaly. CENTRAL NERVOUS SYSTEM: The patient is awake, following commands. Sensory and motor system is grossly within normal limits. EXTREMITIES: No cyanosis, no clubbing, no edema. CURRENT MEDICATIONS: Include as follows: Hydralazine 10 mg p.o. q. 8 hours, Ativan 1 mg IV q. 6 hours p.r.n., Coreg 3.125 mg p.o. b.i.d. and Decadron 4 mg on hold and Lantus 10 units subQ at bedtime and Lasix 60 mg IV q. 12 hours, Pepcid 20 mg p.o. daily, nifedipine 10 mg p.o. b.i.d., Xalatan eyedrops, and Zemplar 2 mcg IV 3 times a week, Thursday, Thursday, and Thursday. LABORATORY DATA: Include as follows: As of 08/04/2016, WBC 13.1, hemoglobin 11.3, hematocrit is 34.4, platelets 187. PT 12.3, INR 1.1, PTT 26. Sodium 138 , potassium 3.3, chloride 100, CO2 of 22, BUN 99, creatinine 6.8, glucose 134, calcium8.5, SUMMARY: The patient is an 80-year-old elderly female with a history of hypertension, arthritis, was admitted with nausea, vomiting, diarrhea, abdominal pain, low platelets, and increased BUN and creatinine on admission, status post treatment for TTP with FFP and plasmapheresis with acute renal failure on hemodialysis. 1. Renal failure, most likely acute on chronic. Cannot rule out acute renal failure. Etiology is not clear, rule out acute tubular necrosis versus thrombotic microangiopathy secondary to TTP. 2. Cardiomyopathy. 3. Hypertension. 4. Status post TTP, now platelets are improved. The patient is scheduled for Perm-A-Cath placement this morning by interventional radiology and the patient will be scheduled for hemodialysis after Perm-A-Cath placement. The patient will need to continue hemodialysis 3 times a week until renal function improves. If the patient's family agrees, we will consider kidney biopsy to rule out thrombotic microangiopathy source, cause of kidney failure is not clear at this time. We will follow with you. Thank you for allowing me to participate in your patient's care. Horacio Graham MD cc: [phone] TT: 08/04/2016 23:15:52 Confirmation # [id number] Dictation # [id number] pati DURON
[2016-08-05] MEDS: (Novolog) Insulin Aspart, Recombinant 100 u/ml 10 ml vial SC SCH ×4 (00:03→20:57)
--- NOTE | 2016-08-05 09:15 | CP.PCM.PN ---
Subjective - Date & Time of Evaluation Date of Evaluation: 08/05/16 Time of Evaluation: 09:11 - Subjective Subjective: Progress Note for Dr. Jules Pt seen and examined at bedside. Pt accompanied at bedside by daughter. Pt doing well overnight with no acute events as per nursing. Pt complaining of hunger. Denies CP, SOB, N/V/D. Objective - Vital Signs/Intake and Output Vital Signs (last 24 hours): Temp Pulse Resp BP Pulse Ox 98.3 F 78 20 134/79 95 08/05/16 08:17 08/05/16 08:17 08/05/16 08:17 08/05/16 08:17 08/05/16 08:17 Intake and Output: 08/05/16 08/05/16 06:59 18:59 Intake Total 0 Balance 0 - Medications Medications: Current Medications Carvedilol (Coreg) 3.125 mg PO BID [facility] Last Admin: 08/04/16 20:54 Dose: Not Given Dexamethasone (Decadron Inj) 4 mg IV Q12 [facility] Last Admin: 08/04/16 22:41 Dose: Not Given Famotidine (Pepcid) 20 mg PO DAILY [facility] Last Admin: 08/04/16 12:32 Dose: Not Given Furosemide (Lasix) 60 mg IVP Q12 [facility] Last Admin: 07/29/16 23:09 Dose: 60 mg Hydralazine HCl (Apresoline) 10 mg PO Q8 [facility] Last Admin: 08/05/16 06:02 Dose: 10 mg Dexmedetomidine HCl 200 mcg/ (Sodium Chloride) 50 mls @ 3.47 mls/hr IV TITR PRN ; Protocol; 0.2 MCG/KG/HR PRN Reason: Sedation Last Admin: 07/30/16 09:05 Dose: 0.08 mcg/kg/hr, 1.5 mls/hr Insulin Aspart (Novolog) 0 unit SC Q6H [facility] PRN Reason: Protocol Last Admin: 08/05/16 06:03 Dose: Not Given Insulin Glargine (Lantus) 10 unit SC HS [facility] Last Admin: 08/04/16 22:31 Dose: Not Given Latanoprost (Xalatan Opht) 0 ml OU HS [facility] Last Admin: 08/04/16 22:55 Dose: 2.5 ml Lorazepam (Ativan) 1 mg IVP Q6H PRN PRN Reason: Anxiety Last Admin: 08/04/16 13:49 Dose: 1 mg Nifedipine (Procardia) 10 mg PO BID [facility] Last Admin: 08/04/16 20:55 Dose: Not Given Nystatin (Nystatin Oral Susp) 5 ml PO QID [facility] Last Admin: 08/04/16 22:42 Dose: Not Given Paricalcitol (Zemplar) 2 mcg IV MWF [facility] Last Admin: 08/04/16 22:50 Dose: 2 mcg - Labs Labs: 08/04/16 08:22 08/04/16 08:22 PT 12.3 SECONDS (9.7-12.2) H 08/04/16 08:22 INR 1.1 08/04/16 08:22 APTT 26 SECONDS (21-34) 08/04/16 08:22 - Constitutional Appears: Non-toxic, No Acute Distress - Head Exam Head Exam: ATRAUMATIC, NORMAL INSPECTION, NORMOCEPHALIC - Respiratory Exam Respiratory Exam: Clear to Ausculation Bilateral, NORMAL BREATHING PATTERN - Cardiovascular Exam Cardiovascular Exam: RRR, +S1, +S2 - GI/Abdominal Exam GI & Abdominal Exam: Soft, Normal Bowel Sounds. absent: Tenderness - Extremities Exam Extremities Exam: absent: Calf Tenderness, Pedal Edema - Neurological Exam Neurological Exam: Alert, Awake - Skin Skin Exam: Intact, Normal Color, Warm Assessment and Plan (1) CHF (congestive heart failure) Assessment & Plan: EF 10% CHF exacerbation resolved at this time Life vest upon discharge Status: Acute
[2016-08-05] MEDS: Dexamethasone 4 mg/1 ml IV SCH ×2 (09:54→21:53)
[2016-08-05] MEDS: Nystatin 100,000 Units/ml Oral Susp 5 ml UD PO SCH ×4 (09:54→21:53)
--- NOTE | 2016-08-05 12:10 | CP.PCM.PN ---
Subjective - Date & Time of Evaluation Date of Evaluation: 08/05/16 Time of Evaluation: 12:10 - Subjective Subjective: pt is not in acute distress, arousable, no pain, pt seen and examined, , pt's family at bed side please d/c rt fv cath, watch for bleeding Objective - Vital Signs/Intake and Output Vital Signs (last 24 hours): Temp Pulse Resp BP Pulse Ox 98.3 F 78 20 134/79 95 08/05/16 08:17 08/05/16 08:17 08/05/16 08:17 08/05/16 08:17 08/05/16 08:17 Intake and Output: 08/05/16 08/05/16 06:59 18:59 Intake Total 0 Balance 0 - Medications Medications: Current Medications Carvedilol (Coreg) 3.125 mg PO BID [facility] Last Admin: 08/05/16 09:49 Dose: 3.125 mg Dexamethasone (Decadron Inj) 4 mg IV Q12 [facility] Last Admin: 08/05/16 09:54 Dose: 4 mg Famotidine (Pepcid) 20 mg PO DAILY [facility] Last Admin: 08/05/16 09:49 Dose: 20 mg Furosemide (Lasix) 60 mg IVP Q12 [facility] Last Admin: 07/29/16 23:09 Dose: 60 mg Hydralazine HCl (Apresoline) 10 mg PO Q8 [facility] Last Admin: 08/05/16 06:02 Dose: 10 mg Dexmedetomidine HCl 200 mcg/ (Sodium Chloride) 50 mls @ 3.47 mls/hr IV TITR PRN ; Protocol; 0.2 MCG/KG/HR PRN Reason: Sedation Last Admin: 07/30/16 09:05 Dose: 0.08 mcg/kg/hr, 1.5 mls/hr Insulin Aspart (Novolog) 0 unit SC Q6H [facility] PRN Reason: Protocol Last Admin: 08/05/16 11:36 Dose: Not Given Insulin Glargine (Lantus) 10 unit SC HS [facility] Last Admin: 08/04/16 22:31 Dose: Not Given Latanoprost (Xalatan Opht) 0 ml OU HS [facility] Last Admin: 08/04/16 22:55 Dose: 2.5 ml Lorazepam (Ativan) 1 mg IVP Q6H PRN PRN Reason: Anxiety Last Admin: 08/04/16 13:49 Dose: 1 mg Nifedipine (Procardia) 10 mg PO BID [facility] Last Admin: 08/05/16 09:50 Dose: 10 mg Nystatin (Nystatin Oral Susp) 5 ml PO QID [facility] Last Admin: 08/05/16 09:54 Dose: 5 ml Paricalcitol (Zemplar) 2 mcg IV MWF [facility] Last Admin: 08/04/16 22:50 Dose: 2 mcg - Labs Labs: 08/04/16 08:22 08/04/16 08:22 PT 12.3 SECONDS (9.7-12.2) H 08/04/16 08:22 INR 1.1 08/04/16 08:22 APTT 26 SECONDS (21-34) 08/04/16 08:22 - Constitutional Appears: No Acute Distress - Head Exam Head Exam: ATRAUMATIC, NORMOCEPHALIC - Eye Exam Eye Exam: EOMI, Normal appearance, PERRL Pupil Exam: NORMAL ACCOMODATION - ENT Exam ENT Exam: Mucous Membranes Moist, Normal Exam - Neck Exam Neck Exam: Full ROM - Respiratory Exam Respiratory Exam: Clear to Ausculation Bilateral, NORMAL BREATHING PATTERN - Cardiovascular Exam Cardiovascular Exam: REGULAR RHYTHM, +S1, +S2 - GI/Abdominal Exam GI & Abdominal Exam: Soft, Normal Bowel Sounds - Rectal Exam Rectal Exam: Deferred - Exam Exam: Circumcision, NORMAL INSPECTION External exam: NORMAL EXTERNAL EXAM Speculum exam: NORMAL SPECULUM EXAM Bimanual exam: NORMAL BIMANUAL EXAM - Neurological Exam Neurological Exam: Awake, CN II-XII Intact Additional comments: oriented x2 Assessment and Plan - Assessment and Plan (Free Text) Assessment: 80 YO HF with htn, arthritis, was admitted with low platelets,increasd bun/cr, AMS, s/p treatment for possible TTP with poor LVEF, resp. failure, s/p intubataion and extubation, MARCO on hd 3 x a week 1. MARCO on ckd, vs MARCO etiology is not clera, ATN vs TMA sec to possible TTP s/p perma cath placemnt c/w hemodialysis 3 x aweek, MWF f/u with social service for out pt HD unit placement and IVETTE 2. HTN,bp is stable, c/w current meds 3. Cardiomyopathy, f/u with cardiology
--- NOTE | 2016-08-05 17:51 | CP.PCM.PN ---
Subjective - Date & Time of Evaluation Date of Evaluation: 08/05/16 Time of Evaluation: 17:42 - Subjective Subjective: Patient seen today in the 4 bedded room. Still has bouts of agitation and on Ativan prn . Still confused but redirectable. Has been cooperative with PT staff. Temp Pulse Resp BP Pulse Ox 98.3 F 72 20 143/73 96 08/05/16 08:17 08/05/16 16:55 08/05/16 08:17 08/05/16 16:55 08/05/16 16:55 Review of systems: Patient is still confused, but arousable seen with her daughter. Patient is still needs a lot of redirection. Skin- no pruritus. HEENT- no dizziness or headache. Neck is supple- Respiratory- no dyspnea. Cardiovascular- no chest pain. GI- no abdoniual pain. GU_ no dysuria. Musculoskeletal- still feels weak. Extremities- pt moving her extremities- Neuro- alert with periods of confusion. MSE- elderly female, seen in her room. Oriented only to person, not to time and place. Speech- conversing in Malay. Affect is reactive. Mood is calmer. Thought process- still confused. Thought content- no si or hi, no psychosis. Attention and Memry- limited. Insight and Judgment limited. Impulse control fair. DX- Metabolic encephalopath , dementia Plan- Continue Ativan 1 mg IV q 6 hrs prn agitation. Keep pt in 4 bedded room for now. Continue tx plan as ordered. Objective - Vital Signs/Intake and Output Vital Signs (last 24 hours): Temp Pulse Resp BP Pulse Ox 98.3 F 72 20 143/73 96 08/05/16 08:17 08/05/16 16:55 08/05/16 08:17 08/05/16 16:55 08/05/16 16:55 Intake and Output: 08/05/16 08/05/16 06:59 18:59 Intake Total 0 Output Total 0 Balance 0 0 - Medications Medications: Current Medications Carvedilol (Coreg) 3.125 mg PO BID [facility] Last Admin: 08/05/16 17:25 Dose: 3.125 mg Dexamethasone (Decadron Inj) 4 mg IV Q12 [facility] Last Admin: 08/05/16 09:54 Dose: 4 mg Famotidine (Pepcid) 20 mg PO DAILY [facility] Last Admin: 08/05/16 09:49 Dose: 20 mg Furosemide (Lasix) 60 mg IVP Q12 [facility] Last Admin: 07/29/16 23:09 Dose: 60 mg Hydralazine HCl (Apresoline) 10 mg PO Q8 [facility] Last Admin: 08/05/16 13:50 Dose: 10 mg Dexmedetomidine HCl 200 mcg/ (Sodium Chloride) 50 mls @ 3.47 mls/hr IV TITR PRN ; Protocol; 0.2 MCG/KG/HR PRN Reason: Sedation Last Admin: 07/30/16 09:05 Dose: 0.08 mcg/kg/hr, 1.5 mls/hr Insulin Aspart (Novolog) 0 unit SC Q6H [facility] PRN Reason: Protocol Last Admin: 08/05/16 11:36 Dose: Not Given Insulin Glargine (Lantus) 10 unit SC HS [facility] Last Admin: 08/04/16 22:31 Dose: Not Given Latanoprost (Xalatan Opht) 0 ml OU HS [facility] Last Admin: 08/04/16 22:55 Dose: 2.5 ml Lorazepam (Ativan) 1 mg IVP Q6H PRN PRN Reason: Anxiety Last Admin: 08/04/16 13:49 Dose: 1 mg Nifedipine (Procardia) 10 mg PO BID [facility] Last Admin: 08/05/16 17:25 Dose: 10 mg Nystatin (Nystatin Oral Susp) 5 ml PO QID [facility] Last Admin: 08/05/16 17:25 Dose: 5 ml Paricalcitol (Zemplar) 2 mcg IV MWF [facility] Last Admin: 08/04/16 22:50 Dose: 2 mcg - Labs Labs: 08/04/16 08:22 08/04/16 08:22 PT 12.3 SECONDS (9.7-12.2) H 08/04/16 08:22 INR 1.1 08/04/16 08:22 APTT 26 SECONDS (21-34) 08/04/16 08:22
[2016-08-05] MEDS: Latanoprost 2.5 ml Opht Soln OU SCH (21:52)
[2016-08-05] MEDS: (Lantus) Insulin Glargine, Recombinant SC SCH (21:52)
--- NOTE | 2016-08-06 08:50 | CP.PCM.PN ---
Subjective - Date & Time of Evaluation Date of Evaluation: 08/06/16 Time of Evaluation: 08:48 - Subjective Subjective: Progress Note for Dr. Jules Pt seen and examined at bedside. Pt doing well overnight with no acute events as per nursing. Pt with no complaints at this time. Denies CP, SOB, N/V/D. Objective - Vital Signs/Intake and Output Vital Signs (last 24 hours): Temp Pulse Resp BP Pulse Ox 97.8 F 61 20 157/81 H 100 08/06/16 08:46 08/06/16 08:46 08/06/16 08:46 08/06/16 08:46 08/06/16 08:46 Intake and Output: 08/06/16 08/06/16 06:59 18:59 Intake Total 250 Balance 250 - Medications Medications: Current Medications Carvedilol (Coreg) 3.125 mg PO BID [facility] Last Admin: 08/05/16 17:25 Dose: 3.125 mg Dexamethasone (Decadron Inj) 4 mg IV Q12 [facility] Last Admin: 08/05/16 21:53 Dose: 4 mg Famotidine (Pepcid) 20 mg PO DAILY [facility] Last Admin: 08/05/16 09:49 Dose: 20 mg Furosemide (Lasix) 60 mg IVP Q12 [facility] Last Admin: 07/29/16 23:09 Dose: 60 mg Hydralazine HCl (Apresoline) 10 mg PO Q8 [facility] Last Admin: 08/06/16 05:46 Dose: Not Given Dexmedetomidine HCl 200 mcg/ (Sodium Chloride) 50 mls @ 3.47 mls/hr IV TITR PRN ; Protocol; 0.2 MCG/KG/HR PRN Reason: Sedation Last Admin: 07/30/16 09:05 Dose: 0.08 mcg/kg/hr, 1.5 mls/hr Insulin Aspart (Novolog) 0 unit SC Q6H [facility] PRN Reason: Protocol Last Admin: 08/05/16 20:57 Dose: Not Given Insulin Glargine (Lantus) 10 unit SC HS [facility] Last Admin: 08/05/16 21:52 Dose: 10 units Latanoprost (Xalatan Opht) 0 ml OU HS [facility] Last Admin: 08/05/16 21:52 Dose: 2.5 ml Lorazepam (Ativan) 1 mg IVP Q6H PRN PRN Reason: Anxiety Last Admin: 08/04/16 13:49 Dose: 1 mg Nifedipine (Procardia) 10 mg PO BID [facility] Last Admin: 08/05/16 17:25 Dose: 10 mg Nystatin (Nystatin Oral Susp) 5 ml PO QID [facility] Last Admin: 08/05/16 21:53 Dose: 5 ml Paricalcitol (Zemplar) 2 mcg IV MWF [facility] Last Admin: 08/04/16 22:50 Dose: 2 mcg - Labs Labs: 08/04/16 08:22 08/04/16 08:22 PT 12.3 SECONDS (9.7-12.2) H 08/04/16 08:22 INR 1.1 08/04/16 08:22 APTT 26 SECONDS (21-34) 08/04/16 08:22 - Constitutional Appears: Non-toxic, No Acute Distress - Head Exam Head Exam: ATRAUMATIC, NORMAL INSPECTION, NORMOCEPHALIC - ENT Exam ENT Exam: Mucous Membranes Dry - Respiratory Exam Respiratory Exam: Clear to Ausculation Bilateral, NORMAL BREATHING PATTERN - Cardiovascular Exam Cardiovascular Exam: RRR, +S1, +S2 - GI/Abdominal Exam GI & Abdominal Exam: Soft, Normal Bowel Sounds. absent: Tenderness - Extremities Exam Extremities Exam: absent: Calf Tenderness, Pedal Edema - Neurological Exam Neurological Exam: Alert, Awake - Skin Skin Exam: Intact, Normal Color, Warm Assessment and Plan (1) CHF (congestive heart failure) Assessment & Plan: EF 10% Life vest upon discharge Status: Acute
[2016-08-06] MEDS ORDERED: Paricalcitol 2 mcg/ml Inj IV SCH (09:00)
[2016-08-06] MEDS: Paricalcitol 2 mcg/ml Inj IV SCH (11:07)
[2016-08-06] MEDS: Dexamethasone 4 mg/1 ml IV SCH ×2 (11:20→21:52)
[2016-08-06] MEDS: Nystatin 100,000 Units/ml Oral Susp 5 ml UD PO SCH ×3 (11:20→18:00)
--- NOTE | 2016-08-06 12:42 | CP.PCM.PN ---
Subjective - Date & Time of Evaluation Date of Evaluation: 08/06/16 Time of Evaluation: 12:41 - Subjective Subjective: pt seen and examined by me, pt is awake, confused for hd today, uf about 2.5 lit, as per cryogenics engineer pt is hitting and spitting during the procedure Objective - Vital Signs/Intake and Output Vital Signs (last 24 hours): Temp Pulse Resp BP Pulse Ox 97 F L 68 19 135/75 99 08/06/16 12:07 08/06/16 12:07 08/06/16 12:07 08/06/16 12:07 08/06/16 12:07 Intake and Output: 08/06/16 08/06/16 06:59 18:59 Intake Total 250 Balance 250 - Medications Medications: Current Medications Carvedilol (Coreg) 3.125 mg PO BID [facility] Last Admin: 08/06/16 11:20 Dose: Not Given Dexamethasone (Decadron Inj) 4 mg IV Q12 [facility] Last Admin: 08/06/16 11:20 Dose: Not Given Famotidine (Pepcid) 20 mg PO DAILY [facility] Last Admin: 08/06/16 11:20 Dose: Not Given Furosemide (Lasix) 60 mg IVP Q12 [facility] Last Admin: 07/29/16 23:09 Dose: 60 mg Hydralazine HCl (Apresoline) 10 mg PO Q8 [facility] Last Admin: 08/06/16 05:46 Dose: Not Given Dexmedetomidine HCl 200 mcg/ (Sodium Chloride) 50 mls @ 3.47 mls/hr IV TITR PRN ; Protocol; 0.2 MCG/KG/HR PRN Reason: Sedation Last Admin: 07/30/16 09:05 Dose: 0.08 mcg/kg/hr, 1.5 mls/hr Insulin Aspart (Novolog) 0 unit SC Q6H [facility] PRN Reason: Protocol Last Admin: 08/05/16 20:57 Dose: Not Given Insulin Glargine (Lantus) 10 unit SC HS [facility] Last Admin: 08/05/16 21:52 Dose: 10 units Latanoprost (Xalatan Opht) 0 ml OU HS [facility] Last Admin: 08/05/16 21:52 Dose: 2.5 ml Lorazepam (Ativan) 1 mg IVP Q6H PRN PRN Reason: Anxiety Last Admin: 08/04/16 13:49 Dose: 1 mg Nifedipine (Procardia) 10 mg PO BID [facility] Last Admin: 08/06/16 11:21 Dose: Not Given Nystatin (Nystatin Oral Susp) 5 ml PO QID [facility] Last Admin: 08/06/16 11:20 Dose: Not Given Paricalcitol (Zemplar) 2 mcg IV MWF [facility] Last Admin: 08/06/16 11:07 Dose: 2 mcg - Labs Labs: 08/04/16 08:22 08/04/16 08:22 PT 12.3 SECONDS (9.7-12.2) H 08/04/16 08:22 INR 1.1 08/04/16 08:22 APTT 26 SECONDS (21-34) 08/04/16 08:22 - Constitutional Appears: No Acute Distress - Head Exam Head Exam: ATRAUMATIC, NORMAL INSPECTION, NORMOCEPHALIC - Eye Exam Eye Exam: EOMI, Normal appearance Pupil Exam: NORMAL ACCOMODATION, PERRL - ENT Exam ENT Exam: Mucous Membranes Moist - Neck Exam Neck Exam: Full ROM, Normal Inspection - Respiratory Exam Respiratory Exam: Clear to Ausculation Bilateral, NORMAL BREATHING PATTERN - Cardiovascular Exam Cardiovascular Exam: REGULAR RHYTHM, +S1, +S2 - GI/Abdominal Exam GI & Abdominal Exam: Soft, Normal Bowel Sounds - Rectal Exam Rectal Exam: Deferred - Exam Additional comments: deferred - Extremities Exam Extremities Exam: Normal Inspection - Neurological Exam Neurological Exam: Altered, Awake, CN II-XII Intact - Skin Skin Exam: Normal Color Assessment and Plan - Assessment and Plan (Free Text) Plan: 80 yo HF with pmh/o HTN, arthritis was admitted with N/v/d/abd>pain, weakness, low platelets, inctreased bun/cr, poor lvef, chf, cardiomyopathy, s/p extubation , with renla failure on hd, s/p TX for possible TTP 1. MARCO on ckd , c/w hD 3 x aweek 2. cardiomyopathy, f/u with cardiology 3. HTn, bp is stable, continue her current meds 4. AMS, r/o dementia, f/u with psych awaiting for out pt HD unit placement
--- NOTE | 2016-08-06 14:15 | CP.PCM.PN ---
Subjective - Date & Time of Evaluation Date of Evaluation: 08/06/16 Time of Evaluation: 14:12 - Subjective Subjective: Patient seen in the 4 bedded room and still with hand mittens as she is still agitated off andon and trying to pull her lines. Still confused but more alert. Patient refusing to eat with assistance from staff. Objective - Vital Signs/Intake and Output Vital Signs (last 24 hours): Temp Pulse Resp BP Pulse Ox 97 F L 68 19 135/75 99 08/06/16 12:07 08/06/16 12:07 08/06/16 12:07 08/06/16 12:07 08/06/16 12:07 Intake and Output: 08/06/16 08/06/16 06:59 18:59 Intake Total 250 Balance 250 - Medications Medications: Current Medications Carvedilol (Coreg) 3.125 mg PO BID [facility] Last Admin: 08/06/16 11:20 Dose: Not Given Dexamethasone (Decadron Inj) 4 mg IV Q12 [facility] Last Admin: 08/06/16 11:20 Dose: Not Given Famotidine (Pepcid) 20 mg PO DAILY [facility] Last Admin: 08/06/16 11:20 Dose: Not Given Furosemide (Lasix) 60 mg IVP Q12 [facility] Last Admin: 07/29/16 23:09 Dose: 60 mg Hydralazine HCl (Apresoline) 10 mg PO Q8 [facility] Last Admin: 08/06/16 05:46 Dose: Not Given Dexmedetomidine HCl 200 mcg/ (Sodium Chloride) 50 mls @ 3.47 mls/hr IV TITR PRN ; Protocol; 0.2 MCG/KG/HR PRN Reason: Sedation Last Admin: 07/30/16 09:05 Dose: 0.08 mcg/kg/hr, 1.5 mls/hr Insulin Aspart (Novolog) 0 unit SC Q6H [facility] PRN Reason: Protocol Last Admin: 08/05/16 20:57 Dose: Not Given Insulin Glargine (Lantus) 10 unit SC HS [facility] Last Admin: 08/05/16 21:52 Dose: 10 units Latanoprost (Xalatan Opht) 0 ml OU HS [facility] Last Admin: 08/05/16 21:52 Dose: 2.5 ml Lorazepam (Ativan) 1 mg IVP Q6H PRN PRN Reason: Anxiety Last Admin: 08/04/16 13:49 Dose: 1 mg Nifedipine (Procardia) 10 mg PO BID [facility] Last Admin: 08/06/16 11:21 Dose: Not Given Nystatin (Nystatin Oral Susp) 5 ml PO QID [facility] Last Admin: 08/06/16 11:20 Dose: Not Given Paricalcitol (Zemplar) 2 mcg IV MWF [facility] Last Admin: 08/06/16 11:07 Dose: 2 mcg - Labs Labs: 08/04/16 08:22 08/04/16 08:22 PT 12.3 SECONDS (9.7-12.2) H 08/04/16 08:22 INR 1.1 08/04/16 08:22 APTT 26 SECONDS (21-34) 08/04/16 08:22 - Constitutional Appears: No Acute Distress, Confused, Chronically Ill - Head Exam Head Exam: ATRAUMATIC - Eye Exam Pupil Exam: NORMAL ACCOMODATION - Neck Exam Neck Exam: Full ROM - Respiratory Exam Additional comments: no dyspnea - Cardiovascular Exam Additional comments: no chest pain - GI/Abdominal Exam Additional comments: Has poor appette, no nausea or vomiting, no abdominal pain - Exam Additional comments: no dysuria - Extremities Exam Additional comments: has hand mittens - Back Exam Additional comments: no back pain - Neurological Exam Neurological Exam: Alert, Awake Additional comments: still confused - Psychiatric Exam Psychiatric exam: Normal Affect - Skin Additional comments: no cyanosis Assessment and Plan - Assessment and Plan (Free Text) Assessment: Metabolic encephalopathy- improving Dementia- senile onset Plan: Patient to continue Ativan prn as ordered. Keep pt in 4 bedded room for close monitoring.
[2016-08-06] MEDS: (Novolog) Insulin Aspart, Recombinant 100 u/ml 10 ml vial SC SCH (17:56)
[2016-08-06] MEDS: Latanoprost 2.5 ml Opht Soln OU SCH (21:50)
[2016-08-06] MEDS: (Lantus) Insulin Glargine, Recombinant SC SCH (21:51)
[2016-08-07] MEDS: (Novolog) Insulin Aspart, Recombinant 100 u/ml 10 ml vial SC SCH ×5 (00:36→18:30)
--- NOTE | 2016-08-07 09:38 | CP.PCM.PN ---
Subjective - Date & Time of Evaluation Date of Evaluation: 08/07/16 Time of Evaluation: 09:35 - Subjective Subjective: Progress note for Dr. Jules Pt seen and examined at bedside. Pt doing well overnight as per nursing with no acute events. No complaints at this time. Denies CP, SOB, N/V/D. Objective - Vital Signs/Intake and Output Vital Signs (last 24 hours): Temp Pulse Resp BP Pulse Ox 97.5 F L 78 20 148/85 96 08/07/16 08:35 08/07/16 08:35 08/07/16 08:35 08/07/16 08:35 08/07/16 08:35 - Medications Medications: Current Medications Carvedilol (Coreg) 3.125 mg PO BID [facility] Last Admin: 08/06/16 17:57 Dose: 3.125 mg Dexamethasone (Decadron Inj) 4 mg IV Q12 [facility] Last Admin: 08/06/16 21:52 Dose: 4 mg Famotidine (Pepcid) 20 mg PO DAILY [facility] Last Admin: 08/06/16 11:20 Dose: Not Given Furosemide (Lasix) 60 mg IVP Q12 [facility] Last Admin: 07/29/16 23:09 Dose: 60 mg Hydralazine HCl (Apresoline) 10 mg PO Q8 [facility] Last Admin: 08/07/16 06:02 Dose: 10 mg Dexmedetomidine HCl 200 mcg/ (Sodium Chloride) 50 mls @ 3.47 mls/hr IV TITR PRN ; Protocol; 0.2 MCG/KG/HR PRN Reason: Sedation Last Admin: 07/30/16 09:05 Dose: 0.08 mcg/kg/hr, 1.5 mls/hr Insulin Aspart (Novolog) 0 unit SC Q6H [facility] PRN Reason: Protocol Last Admin: 08/07/16 00:36 Dose: Not Given Insulin Glargine (Lantus) 10 unit SC HS [facility] Last Admin: 08/06/16 21:51 Dose: Not Given Latanoprost (Xalatan Opht) 0 ml OU HS [facility] Last Admin: 08/06/16 21:50 Dose: 2.5 ml Lorazepam (Ativan) 1 mg IVP Q6H PRN PRN Reason: Anxiety Last Admin: 08/04/16 13:49 Dose: 1 mg Nifedipine (Procardia) 10 mg PO BID [facility] Last Admin: 08/06/16 17:57 Dose: 10 mg Paricalcitol (Zemplar) 2 mcg IV MWF [facility] Last Admin: 08/06/16 11:07 Dose: 2 mcg - Labs Labs: 08/04/16 08:22 08/04/16 08:22 PT 12.3 SECONDS (9.7-12.2) H 08/04/16 08:22 INR 1.1 08/04/16 08:22 APTT 26 SECONDS (21-34) 08/04/16 08:22 - Constitutional Appears: Non-toxic, No Acute Distress - Head Exam Head Exam: ATRAUMATIC, NORMAL INSPECTION, NORMOCEPHALIC - Respiratory Exam Respiratory Exam: Clear to Ausculation Bilateral, NORMAL BREATHING PATTERN - Cardiovascular Exam Cardiovascular Exam: RRR, +S1, +S2 - GI/Abdominal Exam GI & Abdominal Exam: Soft, Normal Bowel Sounds. absent: Tenderness - Extremities Exam Extremities Exam: absent: Calf Tenderness, Pedal Edema - Neurological Exam Neurological Exam: Alert, Awake - Skin Skin Exam: Intact, Normal Color, Warm Assessment and Plan (1) CHF (congestive heart failure) Assessment & Plan: EF 10% Life vest candidate Spoke with Life vest rep, patient will be fit with life vest before being discharged Continue current medical regimen Status: Acute
[2016-08-07] MEDS: Dexamethasone 4 mg/1 ml IV SCH ×2 (10:00→22:13)
--- NOTE | 2016-08-07 18:34 | CP.PCM.PN ---
Subjective - Date & Time of Evaluation Date of Evaluation: 08/07/16 Time of Evaluation: 18:34 - Subjective Subjective: pt seen and examined by me, pt is not in acute distress, no cp, no palpitation, no abd. apin Objective - Vital Signs/Intake and Output Vital Signs (last 24 hours): Temp Pulse Resp BP Pulse Ox 97.4 F L 60 20 142/88 99 08/07/16 16:19 08/07/16 16:19 08/07/16 16:19 08/07/16 16:19 08/07/16 16:19 - Medications Medications: Current Medications Carvedilol (Coreg) 3.125 mg PO BID [facility] Last Admin: 08/07/16 18:29 Dose: 3.125 mg Dexamethasone (Decadron Inj) 4 mg IV Q12 [facility] Last Admin: 08/07/16 10:00 Dose: 4 mg Famotidine (Pepcid) 20 mg PO DAILY [facility] Last Admin: 08/07/16 10:00 Dose: 20 mg Furosemide (Lasix) 60 mg IVP Q12 [facility] Last Admin: 07/29/16 23:09 Dose: 60 mg Hydralazine HCl (Apresoline) 10 mg PO Q8 [facility] Last Admin: 08/07/16 14:00 Dose: 10 mg Dexmedetomidine HCl 200 mcg/ (Sodium Chloride) 50 mls @ 3.47 mls/hr IV TITR PRN ; Protocol; 0.2 MCG/KG/HR PRN Reason: Sedation Last Admin: 07/30/16 09:05 Dose: 0.08 mcg/kg/hr, 1.5 mls/hr Insulin Aspart (Novolog) 0 unit SC Q6H [facility] PRN Reason: Protocol Last Admin: 08/07/16 18:30 Dose: 2 unit Insulin Glargine (Lantus) 10 unit SC HS [facility] Last Admin: 08/06/16 21:51 Dose: Not Given Latanoprost (Xalatan Opht) 0 ml OU HS [facility] Last Admin: 08/06/16 21:50 Dose: 2.5 ml Lorazepam (Ativan) 1 mg IVP Q6H PRN PRN Reason: Anxiety Last Admin: 08/04/16 13:49 Dose: 1 mg Nifedipine (Procardia) 10 mg PO BID [facility] Last Admin: 08/07/16 18:31 Dose: 10 mg Paricalcitol (Zemplar) 2 mcg IV MWF [facility] Last Admin: 08/06/16 11:07 Dose: 2 mcg - Labs Labs: 08/04/16 08:22 08/04/16 08:22 PT 12.3 SECONDS (9.7-12.2) H 08/04/16 08:22 INR 1.1 08/04/16 08:22 APTT 26 SECONDS (21-34) 08/04/16 08:22 - Constitutional Appears: Well, Non-toxic, No Acute Distress - Head Exam Head Exam: ATRAUMATIC, NORMAL INSPECTION, NORMOCEPHALIC - Eye Exam Eye Exam: EOMI, PERRL Pupil Exam: NORMAL ACCOMODATION, PERRL - ENT Exam ENT Exam: Mucous Membranes Moist - Neck Exam Neck Exam: Full ROM, Normal Inspection - Respiratory Exam Respiratory Exam: NORMAL BREATHING PATTERN - Cardiovascular Exam Cardiovascular Exam: REGULAR RHYTHM, +S1, +S2 - GI/Abdominal Exam GI & Abdominal Exam: Soft, Normal Bowel Sounds - Rectal Exam Rectal Exam: Deferred - Exam Additional comments: deferred - Extremities Exam Extremities Exam: Full ROM, Normal Capillary Refill, Normal Inspection. absent : Joint Swelling, Pedal Edema Additional comments: no edema of legs - Back Exam Back Exam: NORMAL INSPECTION - Neurological Exam Neurological Exam: Alert, Awake Additional comments: oriented x 2 - Skin Skin Exam: Dry, Intact Assessment and Plan - Assessment and Plan (Free Text) Plan: 80 yo HF with pmh/o htn, arthritis, poor vision was admitted with N/V/abd. pain , diarrhea, low platelets, increased bun/cr, poor LVEF, s/p extubation 1. MARCO on ckd, r/o ATN vs TMA sec to Possible TTP 2. HTN 3. s/p thrombocytopenia and TTP 4. cardiomyopathy c/w hd 3 x aweek until renal function is improved f/w cardiology pt's family is not interested in Kidney biopsy at this time decrease lasix to 40 mg po qd add megace 400 mg po qd
--- NOTE | 2016-08-07 19:26 | CP.PCM.PN ---
Subjective - Date & Time of Evaluation Date of Evaluation: 08/07/16 Time of Evaluation: 19:23 - Subjective Subjective: Patient is still confused and noted by family to be not eating well and complaining of dysphagia. patient still in 4 bedded room. Currently on Ativan prn. MSE elderly female, seen in her room with family in the 4 bedded room. still confused mood is dysphoric, affect is restricted. Orineted x1 only. Thought process still confused. Thought content- no si or hi. no psychosis. Attention and Memory limited, Insight and Judgment limited, Impulse control fair. Objective - Vital Signs/Intake and Output Vital Signs (last 24 hours): Temp Pulse Resp BP Pulse Ox 97.4 F L 60 20 142/88 99 08/07/16 16:19 08/07/16 16:19 08/07/16 16:19 08/07/16 16:19 08/07/16 16:19 - Medications Medications: Current Medications Carvedilol (Coreg) 3.125 mg PO BID [facility] Last Admin: 08/07/16 18:29 Dose: 3.125 mg Dexamethasone (Decadron Inj) 4 mg IV Q12 [facility] Last Admin: 08/07/16 10:00 Dose: 4 mg Famotidine (Pepcid) 20 mg PO DAILY [facility] Last Admin: 08/07/16 10:00 Dose: 20 mg Furosemide (Lasix) 60 mg IVP Q12 [facility] Last Admin: 07/29/16 23:09 Dose: 60 mg Hydralazine HCl (Apresoline) 10 mg PO Q8 [facility] Last Admin: 08/07/16 14:00 Dose: 10 mg Dexmedetomidine HCl 200 mcg/ (Sodium Chloride) 50 mls @ 3.47 mls/hr IV TITR PRN ; Protocol; 0.2 MCG/KG/HR PRN Reason: Sedation Last Admin: 07/30/16 09:05 Dose: 0.08 mcg/kg/hr, 1.5 mls/hr Insulin Aspart (Novolog) 0 unit SC Q6H [facility] PRN Reason: Protocol Last Admin: 08/07/16 18:30 Dose: 2 unit Insulin Glargine (Lantus) 10 unit SC HS [facility] Last Admin: 08/06/16 21:51 Dose: Not Given Latanoprost (Xalatan Opht) 0 ml OU HS [facility] Last Admin: 08/06/16 21:50 Dose: 2.5 ml Lorazepam (Ativan) 1 mg IVP Q6H PRN PRN Reason: Anxiety Last Admin: 08/04/16 13:49 Dose: 1 mg Nifedipine (Procardia) 10 mg PO BID [facility] Last Admin: 08/07/16 18:31 Dose: 10 mg Paricalcitol (Zemplar) 2 mcg IV MWF [facility] Last Admin: 08/06/16 11:07 Dose: 2 mcg - Labs Labs: 08/04/16 08:22 08/04/16 08:22 PT 12.3 SECONDS (9.7-12.2) H 08/04/16 08:22 INR 1.1 08/04/16 08:22 APTT 26 SECONDS (21-34) 08/04/16 08:22 - Constitutional Appears: No Acute Distress, Confused, Chronically Ill - Head Exam Head Exam: ATRAUMATIC - Eye Exam Additional comments: no blurring of vision - ENT Exam ENT Exam: Mucous Membranes Moist - Neck Exam Neck Exam: Full ROM - Respiratory Exam Additional comments: no dyspnea - Cardiovascular Exam Additional comments: no chest pain - GI/Abdominal Exam Additional comments: no abdominal pain, has poor appetite - Exam Additional comments: no dysuria - Extremities Exam Additional comments: moving her extremities - Neurological Exam Neurological Exam: Alert, Awake - Psychiatric Exam Psychiatric exam: Depressed, Flat Affect Assessment and Plan - Assessment and Plan (Free Text) Assessment: Delirium, Metabolic encephalopathy Dementia Plan: Patient is for possible IVETTE referral to [facility] . Continue Ativan prn. May need swallowing eval.
[2016-08-07] MEDS: Latanoprost 2.5 ml Opht Soln OU SCH (22:10)
[2016-08-07] MEDS: (Lantus) Insulin Glargine, Recombinant SC SCH (22:11)
[2016-08-08] MEDS: (Novolog) Insulin Aspart, Recombinant 100 u/ml 10 ml vial SC SCH ×5 (00:25→18:40)
--- NOTE | 2016-08-08 11:00 | CP.PCM.PN ---
Subjective - Date & Time of Evaluation Date of Evaluation: 08/08/16 Time of Evaluation: 10:57 - Subjective Subjective: Progress Note for Dr. Jules Pt seen and examined at bedside. Pt doing well overnight with no acute events as per nursing. This morning, patient is resting comfortably in bed. Pt will have dialysis today. Denies CP and SOB. Objective - Vital Signs/Intake and Output Vital Signs (last 24 hours): Temp Pulse Resp BP Pulse Ox 97.3 F L 59 L 17 161/88 H 97 08/08/16 09:20 08/08/16 09:20 08/08/16 09:20 08/08/16 09:20 08/07/16 23:00 Intake and Output: 08/08/16 08/08/16 06:59 18:59 Intake Total 240 Balance 240 - Medications Medications: Current Medications Carvedilol (Coreg) 3.125 mg PO BID [facility] Last Admin: 08/07/16 18:29 Dose: 3.125 mg Dexamethasone (Decadron Inj) 4 mg IV Q12 [facility] Last Admin: 08/07/16 22:13 Dose: 4 mg Famotidine (Pepcid) 20 mg PO DAILY [facility] Last Admin: 08/07/16 10:00 Dose: 20 mg Furosemide (Lasix) 60 mg IVP Q12 [facility] Last Admin: 07/29/16 23:09 Dose: 60 mg Hydralazine HCl (Apresoline) 10 mg PO Q8 [facility] Last Admin: 08/08/16 06:18 Dose: 10 mg Dexmedetomidine HCl 200 mcg/ (Sodium Chloride) 50 mls @ 3.47 mls/hr IV TITR PRN ; Protocol; 0.2 MCG/KG/HR PRN Reason: Sedation Last Admin: 07/30/16 09:05 Dose: 0.08 mcg/kg/hr, 1.5 mls/hr Insulin Aspart (Novolog) 0 unit SC Q6H [facility] PRN Reason: Protocol Last Admin: 08/08/16 06:18 Dose: Not Given Insulin Glargine (Lantus) 10 unit SC HS [facility] Last Admin: 08/07/16 22:11 Dose: 10 units Latanoprost (Xalatan Opht) 0 ml OU HS [facility] Last Admin: 08/07/16 22:10 Dose: 2.5 ml Lorazepam (Ativan) 1 mg IVP Q6H PRN PRN Reason: Anxiety Last Admin: 08/04/16 13:49 Dose: 1 mg Megestrol Acetate (Megace) 40 mg PO DAILY [facility] Nifedipine (Procardia) 10 mg PO BID [facility] Last Admin: 08/07/16 18:31 Dose: 10 mg Paricalcitol (Zemplar) 2 mcg IV MWF [facility] Last Admin: 08/06/16 11:07 Dose: 2 mcg - Labs Labs: 08/04/16 08:22 08/04/16 08:22 PT 12.3 SECONDS (9.7-12.2) H 08/04/16 08:22 INR 1.1 08/04/16 08:22 APTT 26 SECONDS (21-34) 08/04/16 08:22 - Constitutional Appears: Non-toxic, No Acute Distress - Head Exam Head Exam: ATRAUMATIC, NORMAL INSPECTION, NORMOCEPHALIC - Respiratory Exam Respiratory Exam: Clear to Ausculation Bilateral, NORMAL BREATHING PATTERN - Cardiovascular Exam Cardiovascular Exam: RRR, +S1, +S2 - GI/Abdominal Exam GI & Abdominal Exam: Soft, Normal Bowel Sounds. absent: Tenderness - Extremities Exam Extremities Exam: absent: Calf Tenderness, Pedal Edema - Neurological Exam Neurological Exam: Alert, Awake - Skin Skin Exam: Intact, Normal Color, Warm Assessment and Plan (1) CHF (congestive heart failure) Assessment & Plan: Life vest rep contacted Pt will receive Life vest upon discharge F/U with Dr. Jules in 1 month We will sign off at this time Please re-consult as necessary Thank you Status: Acute
[2016-08-08] MEDS: Dexamethasone 4 mg/1 ml IV SCH ×2 (11:38→21:37)
[2016-08-08] MEDS: Paricalcitol 2 mcg/ml Inj IV SCH (12:03)
--- NOTE | 2016-08-08 15:55 | CP.PCM.PN ---
Subjective - Date & Time of Evaluation Date of Evaluation: 08/08/16 Time of Evaluation: 15:51 - Subjective Subjective: Patient seen with 4 bedded room with daughter. Patient still confused and refusing to eat stating she feels very tired after having dialysis. Patient is still not eating well. Patient was referred to be seen for swallowing evaluation. MSE- elderly female, in hospital gown, still confused with hand mittens on, seen with daughter at bedside. Mood is dysphoric, affect is restricted, speech is slow. Thought porcess- still confused. Thought content- patient wants to sleep. No si or hi. No psychosis. Attention and Memory limited. Insight and Judgment limited, Impulse control guarded. Objective - Vital Signs/Intake and Output Vital Signs (last 24 hours): Temp Pulse Resp BP Pulse Ox 97.7 F 77 17 153/88 H 95 08/08/16 12:20 08/08/16 12:20 08/08/16 12:20 08/08/16 12:20 08/08/16 12:20 Intake and Output: 08/08/16 08/08/16 06:59 18:59 Intake Total 240 Balance 240 - Medications Medications: Current Medications Carvedilol (Coreg) 3.125 mg PO BID [facility] Last Admin: 08/08/16 11:38 Dose: Not Given Dexamethasone (Decadron Inj) 4 mg IV Q12 [facility] Last Admin: 08/08/16 11:38 Dose: Not Given Famotidine (Pepcid) 20 mg PO DAILY [facility] Last Admin: 08/08/16 11:38 Dose: Not Given Furosemide (Lasix) 60 mg IVP Q12 [facility] Last Admin: 07/29/16 23:09 Dose: 60 mg Hydralazine HCl (Apresoline) 10 mg PO Q8 [facility] Last Admin: 08/08/16 15:15 Dose: 10 mg Dexmedetomidine HCl 200 mcg/ (Sodium Chloride) 50 mls @ 3.47 mls/hr IV TITR PRN ; Protocol; 0.2 MCG/KG/HR PRN Reason: Sedation Last Admin: 07/30/16 09:05 Dose: 0.08 mcg/kg/hr, 1.5 mls/hr Insulin Aspart (Novolog) 0 unit SC Q6H [facility] PRN Reason: Protocol Last Admin: 08/08/16 11:38 Dose: Not Given Insulin Glargine (Lantus) 10 unit SC HS [facility] Last Admin: 08/07/16 22:11 Dose: 10 units Latanoprost (Xalatan Opht) 0 ml OU HS [facility] Last Admin: 08/07/16 22:10 Dose: 2.5 ml Lorazepam (Ativan) 1 mg IVP Q6H PRN PRN Reason: Anxiety Last Admin: 08/04/16 13:49 Dose: 1 mg Megestrol Acetate (Megace) 40 mg PO DAILY [facility] Last Admin: 08/08/16 11:38 Dose: Not Given Nifedipine (Procardia) 10 mg PO BID [facility] Last Admin: 08/08/16 11:38 Dose: Not Given Paricalcitol (Zemplar) 2 mcg IV MWF [facility] Last Admin: 08/08/16 12:03 Dose: 2 mcg - Labs Labs: 08/04/16 08:22 08/04/16 08:22 PT 12.3 SECONDS (9.7-12.2) H 08/04/16 08:22 INR 1.1 08/04/16 08:22 APTT 26 SECONDS (21-34) 08/04/16 08:22 - Constitutional Appears: No Acute Distress, Confused, Chronically Ill - Head Exam Head Exam: NORMOCEPHALIC - Eye Exam Eye Exam: Normal appearance - ENT Exam ENT Exam: Normal Exam - Respiratory Exam Additional comments: no dyspnea - Cardiovascular Exam Additional comments: no chest pain - GI/Abdominal Exam Additional comments: still has difficulty eating regular food, no nausea or vomiting, no abdominal pain - Exam Additional comments: no dysuria - Extremities Exam Additional comments: pt is mostly bed bound - Neurological Exam Neurological Exam: Alert, Awake - Psychiatric Exam Psychiatric exam: Agitated, Normal Affect - Skin Skin Exam: Normal Color Assessment and Plan - Assessment and Plan (Free Text) Assessment: Dementia Delirium ESRD on HD Plan: Patient is for IVETTE. Continue Ativan prn as ordered. Keep pt in 4 bedded room for close monitoring.
--- NOTE | 2016-08-08 19:26 | CP.PCM.PN ---
Subjective - Date & Time of Evaluation Date of Evaluation: 08/08/16 Time of Evaluation: 19:26 - Subjective Subjective: pt seen and examined by me, pt is awake, confused, as per family some time does not make a any sense w s/p hd today, uf goal was about 1 lithat she is saying Objective - Vital Signs/Intake and Output Vital Signs (last 24 hours): Temp Pulse Resp BP Pulse Ox 97.9 F 63 20 144/84 96 08/08/16 15:15 08/08/16 15:15 08/08/16 15:15 08/08/16 15:15 08/08/16 15:15 - Medications Medications: Current Medications Carvedilol (Coreg) 3.125 mg PO BID [facility] Last Admin: 08/08/16 17:29 Dose: 3.125 mg Dexamethasone (Decadron Inj) 4 mg IV Q12 [facility] Last Admin: 08/08/16 11:38 Dose: Not Given Famotidine (Pepcid) 20 mg PO DAILY [facility] Last Admin: 08/08/16 11:38 Dose: Not Given Furosemide (Lasix) 60 mg IVP Q12 [facility] Last Admin: 07/29/16 23:09 Dose: 60 mg Hydralazine HCl (Apresoline) 10 mg PO Q8 [facility] Last Admin: 08/08/16 15:15 Dose: 10 mg Dexmedetomidine HCl 200 mcg/ (Sodium Chloride) 50 mls @ 3.47 mls/hr IV TITR PRN ; Protocol; 0.2 MCG/KG/HR PRN Reason: Sedation Last Admin: 07/30/16 09:05 Dose: 0.08 mcg/kg/hr, 1.5 mls/hr Insulin Aspart (Novolog) 0 unit SC Q6H [facility] PRN Reason: Protocol Last Admin: 08/08/16 11:38 Dose: Not Given Insulin Glargine (Lantus) 10 unit SC HS [facility] Last Admin: 08/07/16 22:11 Dose: 10 units Latanoprost (Xalatan Opht) 0 ml OU HS [facility] Last Admin: 08/07/16 22:10 Dose: 2.5 ml Lorazepam (Ativan) 1 mg IVP Q6H PRN PRN Reason: Anxiety Last Admin: 08/04/16 13:49 Dose: 1 mg Megestrol Acetate (Megace) 40 mg PO DAILY [facility] Last Admin: 08/08/16 11:38 Dose: Not Given Nifedipine (Procardia) 10 mg PO BID [facility] Last Admin: 08/08/16 17:29 Dose: 10 mg Paricalcitol (Zemplar) 2 mcg IV MWF [facility] Last Admin: 08/08/16 12:03 Dose: 2 mcg - Labs Labs: 08/04/16 08:22 08/04/16 08:22 PT 12.3 SECONDS (9.7-12.2) H 08/04/16 08:22 INR 1.1 08/04/16 08:22 APTT 26 SECONDS (21-34) 08/04/16 08:22 - Constitutional Appears: Well, Non-toxic, No Acute Distress - Head Exam Head Exam: ATRAUMATIC, NORMAL INSPECTION, NORMOCEPHALIC - Eye Exam Eye Exam: EOMI, PERRL Pupil Exam: NORMAL ACCOMODATION Additional comments: poor vision - ENT Exam ENT Exam: Mucous Membranes Moist - Respiratory Exam Respiratory Exam: Clear to Ausculation Bilateral, NORMAL BREATHING PATTERN - Cardiovascular Exam Cardiovascular Exam: REGULAR RHYTHM, +S1, +S2 - GI/Abdominal Exam GI & Abdominal Exam: Soft, Normal Bowel Sounds Additional comments: non tender, no HSM - Extremities Exam Extremities Exam: Normal Inspection - Back Exam Back Exam: NORMAL INSPECTION - Neurological Exam Additional comments: awake, oriented x1 - Skin Skin Exam: Normal Color, Warm Assessment and Plan - Assessment and Plan (Free Text) Plan: 80 yo HF with htn, arthritis, ? demetia, poor vision, s/p TTP renal failure , cardiomayopathy 1. reanal failure Elise on ckd 2. htn 3. ?dementia 4. cardiomayopathy c/w hd 3 x a week stable hd tx f/u with cardiology and psych
[2016-08-08] MEDS: (Lantus) Insulin Glargine, Recombinant SC SCH (21:37)
[2016-08-08] MEDS: Latanoprost 2.5 ml Opht Soln OU SCH (21:42)
[2016-08-09] MEDS: (Novolog) Insulin Aspart, Recombinant 100 u/ml 10 ml vial SC SCH ×2 (05:46)
[2016-08-09] MEDS: Dexamethasone 4 mg/1 ml IV SCH ×2 (10:32→21:43)
--- NOTE | 2016-08-09 11:38 | CP.PCM.CON ---
History of Present Illness - History of Present Illness History of Present Illness: NEURO CONSULT NOTE: 08/09/16 CHIEF COMPLAINT: CONFUSION HPI: THIS IS A 80 YEAR OLD WOMAN WITH HISTORY OF HTN, ARTHRITIS, CHF WAS ADMITTED FOR ABDOMINAL PAIN, LETHARGY, CONFUSION AND FOUND TO HAVE LOW PLATELETS, LOW EJECTION FRACTION WAS DIAGNOSED TTP AND UNDERWENT PLASMAPHORESIS, AND UNDERWENT DIALYSIS FOR RENAL INSUFFICIENCY CONSULTED FOR CONFUSION. SHE FOLLOWS SIMPLE COMMANDS IN [place] AND MOVES ALL EXTREMITIES. RESPONDS AND LOCALIZES TO NOXIOUS STIMULUS. NO HEADACHES. SHE IS BECOMING MORE CLEAR IN MENTATION COMPARED TO INITIAL ADMISSION. ROS: 14 POINT REVIEW OF SYMPTOMS IS NEGATIVE PER HPI. ALLERGIES: NONE SOCIAL HISTORY: NO ILLICIT DRUG USE, SMOKING, OR ETOH USE. FAMILY: NON CONTRIBUTORY. MEDICATIONS: REVIEWED BY NURSE'S RECONCILIATION SHEET. PAST MEDICAL HISTORY: HTN, CHF, RENAL INSUFFICIENCY, ARTHRITIS PHYSICAL EXAM: VITAL SIGNS: REVIEWED BY THE CHART GENERAL EXAM: PATIENT SEEN IN BED, IN NO ACUTE DISTRESS HEENT: PERRLA, EOMI, NECK SUPPLE, NO JVD, NO ADENOPATHY CVS: S1, S2, RRR, NO MURMURS NOTED LUNGS: CLEAR TO AUSCULTATION, NO ADVENTITIOUS SOUNDS ABDOMEN: SOFT AND NONTENDER EXTREMITIES: NO CLUBBING OR CYANOSIS. PP 2+ B/L NEURO: PT IS DROWSY FOLLOWS SIMPLE COMMANDS, POOR ATTENTION SPAN AND SLOW THOUGHT PROCESS. SPEECH IS FLUENT WITHOUT ERRORS, CN II-XII INTACT, MOTOR EXAM: NORMAL TONE, , MOVES ALL EXTREMITIES EQUALLY, NO PRONATOR DRIFT SEEN. SENSORY EXAM: WITHDRAWS AND LOCALIZES TO PAINFUL STIMULUS. DEEP TENDON REFLEXES: 2+ THROUGHOUT. COORDINATION: FINGER TO NOSE IS INTACT. GAIT: DEFERRED LABS: REVIEWED BY THE CHART. ASSESSMENT AND PLAN: THIS IS A 80 YEAR OLD WOMAN WITH HISTORY OF HTN, ARTHRITIS, CHF WAS ADMITTED FOR ABDOMINAL PAIN, LETHARGY, CONFUSION AND FOUND TO HAVE LOW PLATELETS, LOW EJECTION FRACTION WAS DIAGNOSED TTP AND UNDERWENT PLASMAPHORESIS, AND UNDERWENT DIALYSIS FOR RENAL INSUFFICIENCY CONSULTED FOR CONFUSION. SHE FOLLOWS SIMPLE COMMANDS IN [place] AND MOVES ALL EXTREMITIES. RESPONDS AND LOCALIZES TO NOXIOUS STIMULUS. NO HEADACHES. SHE IS BECOMING MORE CLEAR IN MENTATION COMPARED TO INITIAL ADMISSION. IMPRESSION: CONFUSION IS MORE OF A METABOLIC ENCEPHALOPATHY SUPERIMPOSED UNDERLYING TTP AND CHF. 1. ASA 81 MG FOR STROKE PREVENTION, THIAMINE 100MG IV Q12. 2.NEEDS BETTER SLEEP HYGIENE. 3. MONITOR ELECTROLYTES AND CORRECT ACCORDINGLY. 4. PT EVALUATION. 5. F/U WITH HEMATOLOGY AND CARDIOLOGY. THANK YOU. Jovanni MAY MD Past Patient History - Past Medical History & Family History Past Medical History?: Yes - Past Social History Smoking Status: Light Smoker < 10 Cigarettes Daily - CARDIAC Hx Hypertension: Yes - PULMONARY Hx Respiratory Disorders: No - NEUROLOGICAL Hx Neurological Disorder: No - HEENT Hx HEENT Problems: No Other/Comment: Poor vision both eyes, have eye doctor appoinment 08/04/16. - RENAL Hx Chronic Kidney Disease: No - ENDOCRINE/METABOLIC Hx Endocrine Disorders: Yes Other/Comment: THYROID NODULES - HEMATOLOGICAL/ONCOLOGICAL Hx Blood Disorders: No - INTEGUMENTARY Hx Dermatological Problems: Yes Other/Comment: h/o skin rashes - MUSCULOSKELETAL/RHEUMATOLOGICAL Hx Arthritis: Yes - GASTROINTESTINAL Hx Gastrointestinal Disorders: No - GENITOURINARY/GYNECOLOGICAL Hx Genitourinary Disorders: No - PSYCHIATRIC Hx Substance Use: No - SURGICAL HISTORY Hx Surgeries: Yes Other/Comment: 1993 THYROID SX - ANESTHESIA Hx Anesthesia: Yes Hx Anesthesia Reactions: No Hx Malignant Hyperthermia: No Has any member of the family had a problem w/ anesthesia?: No Meds Allergies/Adverse Reactions: Allergies Allergy/AdvReac Type Severity Reaction Status Date / Time No Known Allergies Allergy Verified 12/28/13 12:04 - Medications Medications: Current Medications Carvedilol (Coreg) 3.125 mg PO BID [facility] Last Admin: 08/09/16 10:28 Dose: 3.125 mg Dexamethasone (Decadron Inj) 4 mg IV Q12 [facility] Last Admin: 08/09/16 10:32 Dose: 4 mg Famotidine (Pepcid) 20 mg PO DAILY [facility] Last Admin: 08/09/16 10:27 Dose: 20 mg Furosemide (Lasix) 60 mg IVP Q12 [facility] Last Admin: 07/29/16 23:09 Dose: 60 mg Hydralazine HCl (Apresoline) 10 mg PO Q8 [facility] Last Admin: 08/09/16 05:35 Dose: 10 mg Dexmedetomidine HCl 200 mcg/ (Sodium Chloride) 50 mls @ 3.47 mls/hr IV TITR PRN ; Protocol; 0.2 MCG/KG/HR PRN Reason: Sedation Last Admin: 07/30/16 09:05 Dose: 0.08 mcg/kg/hr, 1.5 mls/hr Insulin Aspart (Novolog) 0 unit SC Q6H [facility] PRN Reason: Protocol Last Admin: 08/09/16 05:46 Dose: Not Given Insulin Glargine (Lantus) 10 unit SC HS [facility] Last Admin: 08/08/16 21:37 Dose: 10 units Latanoprost (Xalatan Opht) 0 ml OU HS [facility] Last Admin: 08/08/16 21:42 Dose: 2.5 ml Lorazepam (Ativan) 1 mg IVP Q6H PRN PRN Reason: Anxiety Last Admin: 08/04/16 13:49 Dose: 1 mg Megestrol Acetate (Megace) 40 mg PO DAILY [facility] Last Admin: 08/09/16 10:28 Dose: 40 mg Nifedipine (Procardia) 10 mg PO BID [facility] Last Admin: 08/09/16 10:29 Dose: 10 mg Paricalcitol (Zemplar) 2 mcg IV MWF [facility] Last Admin: 08/08/16 12:03 Dose: 2 mcg Results - Vital Signs Recent Vital Signs: Last Vital Signs Temp 98.9 F 08/09/16 09:51 Pulse 67 08/09/16 09:51 Resp 18 08/09/16 09:51 BP 167/83 H 08/09/16 09:51 Pulse Ox 96 08/08/16 15:15 - Labs Result Diagrams: 08/04/16 08:22 08/04/16 08:22 Labs: Laboratory Results - last 24 hr 08/08/16 08/08/16 08/08/16 11:26 16:26 21:18 POC Glucose (mg/dL) 123 H 138 H 171 H 08/09/16 08/09/16 05:46 07:27 POC Glucose (mg/dL) 164 H 156 H
[2016-08-09] MEDS: Latanoprost 2.5 ml Opht Soln OU SCH (21:43)
[2016-08-09] MEDS: (Lantus) Insulin Glargine, Recombinant SC SCH (22:15)
[2016-08-10] MEDS: (Novolog) Insulin Aspart, Recombinant 100 u/ml 10 ml vial SC SCH ×4 (00:20→18:30)
[2016-08-10] MEDS: Dexamethasone 4 mg/1 ml IV SCH ×2 (10:55→22:02)
--- NOTE | 2016-08-10 13:04 | CP.PCM.PN ---
Subjective - Date & Time of Evaluation Date of Evaluation: 08/10/16 Time of Evaluation: 13:01 - Subjective Subjective: Patient seen with daughter. Still confused and still having hand mittens but eating better as per daughter.Patient still on dialysis and having pureed due to dysphagia. Objective - Vital Signs/Intake and Output Vital Signs (last 24 hours): Temp Pulse Resp BP Pulse Ox 97.3 F L 71 16 100/59 L 97 08/09/16 23:27 08/09/16 23:27 08/09/16 23:27 08/09/16 23:27 08/09/16 23:27 Intake and Output: 08/10/16 08/10/16 06:59 18:59 Intake Total 50 Balance 50 - Medications Medications: Current Medications Carvedilol (Coreg) 3.125 mg PO BID [facility] Last Admin: 08/10/16 10:50 Dose: 3.125 mg Dexamethasone (Decadron Inj) 4 mg IV Q12 [facility] Last Admin: 08/10/16 10:55 Dose: 4 mg Famotidine (Pepcid) 20 mg PO DAILY [facility] Last Admin: 08/10/16 10:50 Dose: 20 mg Furosemide (Lasix) 60 mg IVP Q12 [facility] Last Admin: 07/29/16 23:09 Dose: 60 mg Hydralazine HCl (Apresoline) 10 mg PO Q8 [facility] Last Admin: 08/10/16 06:38 Dose: 10 mg Dexmedetomidine HCl 200 mcg/ (Sodium Chloride) 50 mls @ 3.47 mls/hr IV TITR PRN ; Protocol; 0.2 MCG/KG/HR PRN Reason: Sedation Last Admin: 07/30/16 09:05 Dose: 0.08 mcg/kg/hr, 1.5 mls/hr Insulin Aspart (Novolog) 0 unit SC Q6H [facility] PRN Reason: Protocol Last Admin: 08/10/16 06:16 Dose: Not Given Insulin Glargine (Lantus) 10 unit SC HS [facility] Last Admin: 08/09/16 22:15 Dose: Not Given Latanoprost (Xalatan Opht) 0 ml OU HS [facility] Last Admin: 08/09/16 21:43 Dose: 2.5 ml Lorazepam (Ativan) 1 mg IVP Q6H PRN PRN Reason: Anxiety Last Admin: 08/04/16 13:49 Dose: 1 mg Megestrol Acetate (Megace) 40 mg PO DAILY [facility] Last Admin: 08/10/16 10:55 Dose: 40 mg Paricalcitol (Zemplar) 2 mcg IV MWF [facility] Last Admin: 08/08/16 12:03 Dose: 2 mcg - Labs Labs: 08/04/16 08:22 08/04/16 08:22 PT 12.3 SECONDS (9.7-12.2) H 08/04/16 08:22 INR 1.1 08/04/16 08:22 APTT 26 SECONDS (21-34) 08/04/16 08:22 - Constitutional Appears: No Acute Distress, Confused, Chronically Ill - Head Exam Head Exam: NORMOCEPHALIC - Eye Exam Eye Exam: Normal appearance - ENT Exam ENT Exam: Normal External Ear Exam - Neck Exam Neck Exam: Full ROM - Respiratory Exam Additional comments: no dyspnea - Cardiovascular Exam Additional comments: no palpitations - GI/Abdominal Exam Additional comments: has dysphagia, appetite is still variable - Exam Additional comments: no dysuria - Extremities Exam Additional comments: has hand mittens on - Back Exam Additional comments: no back pain - Neurological Exam Neurological Exam: Abnormal Gait, Awake Assessment and Plan - Assessment and Plan (Free Text) Assessment: Delirium Dementia Metabolic encephalopathy Plan: Continue present tx plan and management. Continue dialysis as ordered. Patient is for IVETTE once medically cleared.
[2016-08-10] MEDS: Latanoprost 2.5 ml Opht Soln OU SCH (22:02)
[2016-08-10] MEDS: (Lantus) Insulin Glargine, Recombinant SC SCH (22:05)
[2016-08-11] MEDS: (Novolog) Insulin Aspart, Recombinant 100 u/ml 10 ml vial SC SCH ×4 (00:28→18:00)
--- NOTE | 2016-08-11 08:58 | CP.PCM.PN ---
Subjective - Date & Time of Evaluation Date of Evaluation: 08/09/16 Time of Evaluation: 10:00 - Subjective Subjective: pt remains confused anorexic Objective - Vital Signs/Intake and Output Vital Signs (last 24 hours): Temp Pulse Resp BP Pulse Ox 97.3 F L 68 18 111/66 98 08/10/16 23:17 08/10/16 23:17 08/10/16 23:17 08/10/16 23:17 08/10/16 23:17 Intake and Output: 08/11/16 08/11/16 06:59 18:59 Intake Total 200 Balance 200 - Medications Medications: Current Medications Carvedilol (Coreg) 3.125 mg PO BID [facility] Last Admin: 08/10/16 18:30 Dose: 3.125 mg Dexamethasone (Decadron Inj) 4 mg IV Q12 [facility] Last Admin: 08/10/16 22:02 Dose: 4 mg Famotidine (Pepcid) 20 mg PO DAILY [facility] Last Admin: 08/10/16 10:50 Dose: 20 mg Furosemide (Lasix) 60 mg IVP Q12 [facility] Last Admin: 07/29/16 23:09 Dose: 60 mg Hydralazine HCl (Apresoline) 10 mg PO Q8 [facility] Last Admin: 08/11/16 05:52 Dose: 10 mg Dexmedetomidine HCl 200 mcg/ (Sodium Chloride) 50 mls @ 3.47 mls/hr IV TITR PRN ; Protocol; 0.2 MCG/KG/HR PRN Reason: Sedation Last Admin: 07/30/16 09:05 Dose: 0.08 mcg/kg/hr, 1.5 mls/hr Insulin Aspart (Novolog) 0 unit SC Q6H [facility] PRN Reason: Protocol Last Admin: 08/11/16 05:52 Dose: 2 unit Insulin Glargine (Lantus) 10 unit SC HS [facility] Last Admin: 08/10/16 22:05 Dose: 10 units Latanoprost (Xalatan Opht) 0 ml OU HS [facility] Last Admin: 08/10/16 22:02 Dose: 2.5 ml Lorazepam (Ativan) 1 mg IVP Q6H PRN PRN Reason: Anxiety Last Admin: 08/04/16 13:49 Dose: 1 mg Megestrol Acetate (Megace) 40 mg PO DAILY [facility] Last Admin: 08/10/16 10:55 Dose: 40 mg Paricalcitol (Zemplar) 2 mcg IV MWF [facility] Last Admin: 08/08/16 12:03 Dose: 2 mcg - Labs Labs: 08/04/16 08:22 08/04/16 08:22 PT 12.3 SECONDS (9.7-12.2) H 08/04/16 08:22 INR 1.1 08/04/16 08:22 APTT 26 SECONDS (21-34) 08/04/16 08:22 - Constitutional Appears: Non-toxic - Head Exam Head Exam: NORMAL INSPECTION - Eye Exam Eye Exam: absent: Scleral icterus Pupil Exam: PERRL - Neck Exam Neck Exam: Full ROM - Respiratory Exam Respiratory Exam: NORMAL BREATHING PATTERN - Cardiovascular Exam Cardiovascular Exam: REGULAR RHYTHM - GI/Abdominal Exam GI & Abdominal Exam: Soft. absent: Tenderness - Extremities Exam Extremities Exam: absent: Calf Tenderness, Pedal Edema, Tenderness - Neurological Exam Neurological Exam: Altered Assessment and Plan - Assessment and Plan (Free Text) Assessment: Altered mental status Anorexic ESRD TTP Dilated cardiomyopathy Plan: Neuro consult w/ Dr Marcello Sharma Cont dialysis
--- NOTE | 2016-08-11 09:04 | CP.PCM.PN ---
Subjective - Date & Time of Evaluation Date of Evaluation: 08/10/16 Time of Evaluation: 09:00 - Subjective Subjective: remains confused pt seen w/ family at bedside appetite somewhat improved according to daughter Objective - Vital Signs/Intake and Output Vital Signs (last 24 hours): Temp Pulse Resp BP Pulse Ox 97.3 F L 68 18 111/66 98 08/10/16 23:17 08/10/16 23:17 08/10/16 23:17 08/10/16 23:17 08/10/16 23:17 Intake and Output: 08/11/16 08/11/16 06:59 18:59 Intake Total 200 Balance 200 - Medications Medications: Current Medications Carvedilol (Coreg) 3.125 mg PO BID [facility] Last Admin: 08/10/16 18:30 Dose: 3.125 mg Dexamethasone (Decadron Inj) 4 mg IV Q12 [facility] Last Admin: 08/10/16 22:02 Dose: 4 mg Famotidine (Pepcid) 20 mg PO DAILY [facility] Last Admin: 08/10/16 10:50 Dose: 20 mg Furosemide (Lasix) 60 mg IVP Q12 [facility] Last Admin: 07/29/16 23:09 Dose: 60 mg Hydralazine HCl (Apresoline) 10 mg PO Q8 [facility] Last Admin: 08/11/16 05:52 Dose: 10 mg Dexmedetomidine HCl 200 mcg/ (Sodium Chloride) 50 mls @ 3.47 mls/hr IV TITR PRN ; Protocol; 0.2 MCG/KG/HR PRN Reason: Sedation Last Admin: 07/30/16 09:05 Dose: 0.08 mcg/kg/hr, 1.5 mls/hr Insulin Aspart (Novolog) 0 unit SC Q6H [facility] PRN Reason: Protocol Last Admin: 08/11/16 05:52 Dose: 2 unit Insulin Glargine (Lantus) 10 unit SC HS [facility] Last Admin: 08/10/16 22:05 Dose: 10 units Latanoprost (Xalatan Opht) 0 ml OU HS [facility] Last Admin: 08/10/16 22:02 Dose: 2.5 ml Lorazepam (Ativan) 1 mg IVP Q6H PRN PRN Reason: Anxiety Last Admin: 08/11/16 09:00 Dose: 1 mg Megestrol Acetate (Megace) 40 mg PO DAILY [facility] Last Admin: 08/10/16 10:55 Dose: 40 mg Paricalcitol (Zemplar) 2 mcg IV MWF [facility] Last Admin: 08/08/16 12:03 Dose: 2 mcg - Labs Labs: 08/04/16 08:22 08/04/16 08:22 PT 12.3 SECONDS (9.7-12.2) H 08/04/16 08:22 INR 1.1 08/04/16 08:22 APTT 26 SECONDS (21-34) 08/04/16 08:22 - Constitutional Appears: Confused - Head Exam Head Exam: NORMAL INSPECTION - Eye Exam Eye Exam: absent: Scleral icterus - Neck Exam Neck Exam: Full ROM - Respiratory Exam Respiratory Exam: NORMAL BREATHING PATTERN - Cardiovascular Exam Cardiovascular Exam: REGULAR RHYTHM - GI/Abdominal Exam GI & Abdominal Exam: Soft. absent: Tenderness - Extremities Exam Extremities Exam: Calf Tenderness - Neurological Exam Neurological Exam: Altered. absent: Oriented x3 Assessment and Plan - Assessment and Plan (Free Text) Assessment: Metabolic encephalopathy Delirium ESRD TTP Dilated cardiomyopathy Plan: Cont dialysis Psyche follow up Phys tx
[2016-08-11] MEDS: Dexamethasone 4 mg/1 ml IV SCH ×2 (09:07→22:22)
[2016-08-11 09:55] LABS: HEMOGLOBIN 11.9 g/dL (11.0-16.0); MEAN CELL VOLUME 101.6 fL (81.0-99.0); MEAN CORPUSCULAR HEMOGLOBIN 32.3 pg (27.0-31.0); MEAN CORPUSCULAR HGB CONC 31.8 g/dL (33.0-37.0); MEAN PLATELET VOLUME 9.5 fL (7.2-11.7); RBC 3.69 Mil/uL (3.80-5.20); RED CELL DISTRIBUTION WIDTH 19.4 % (11.5-14.5); WHITE BLOOD COUNT 13.5 K/uL (4.8-10.8)
[2016-08-11 09:58] LABS: CALCIUM 8.4 mg/dl (8.6-10.4)
--- NOTE | 2016-08-11 11:37 | CP.PCM.PN ---
Subjective - Date & Time of Evaluation Date of Evaluation: 08/11/16 Time of Evaluation: 11:37 - Subjective Subjective: pt seen and examined by me during hd, uf goal is about 1 lit , not in acute distress, confused, rest less Objective - Vital Signs/Intake and Output Vital Signs (last 24 hours): Temp Pulse Resp BP Pulse Ox 97.5 F L 69 20 194/80 H 96 08/11/16 11:28 08/11/16 11:28 08/11/16 11:28 08/11/16 11:28 08/11/16 11:28 Intake and Output: 08/11/16 08/11/16 06:59 18:59 Intake Total 200 Balance 200 - Medications Medications: Current Medications Carvedilol (Coreg) 3.125 mg PO BID [facility] Last Admin: 08/11/16 09:07 Dose: Not Given Dexamethasone (Decadron Inj) 4 mg IV Q12 [facility] Last Admin: 08/11/16 09:07 Dose: Not Given Famotidine (Pepcid) 20 mg PO DAILY [facility] Last Admin: 08/11/16 09:08 Dose: Not Given Furosemide (Lasix) 60 mg IVP Q12 [facility] Last Admin: 07/29/16 23:09 Dose: 60 mg Hydralazine HCl (Apresoline) 10 mg PO Q8 [facility] Last Admin: 08/11/16 05:52 Dose: 10 mg Dexmedetomidine HCl 200 mcg/ (Sodium Chloride) 50 mls @ 3.47 mls/hr IV TITR PRN ; Protocol; 0.2 MCG/KG/HR PRN Reason: Sedation Last Admin: 07/30/16 09:05 Dose: 0.08 mcg/kg/hr, 1.5 mls/hr Insulin Aspart (Novolog) 0 unit SC Q6H [facility] PRN Reason: Protocol Last Admin: 08/11/16 05:52 Dose: 2 unit Insulin Glargine (Lantus) 10 unit SC HS [facility] Last Admin: 08/10/16 22:05 Dose: 10 units Latanoprost (Xalatan Opht) 0 ml OU HS [facility] Last Admin: 08/10/16 22:02 Dose: 2.5 ml Lorazepam (Ativan) 1 mg IVP Q6H PRN PRN Reason: Anxiety Last Admin: 08/11/16 09:00 Dose: 1 mg Megestrol Acetate (Megace) 40 mg PO DAILY [facility] Last Admin: 08/11/16 09:08 Dose: Not Given Paricalcitol (Zemplar) 2 mcg IV MWF [facility] Last Admin: 08/08/16 12:03 Dose: 2 mcg - Labs Labs: 08/11/16 09:42 08/11/16 09:42 PT 12.3 SECONDS (9.7-12.2) H 08/04/16 08:22 INR 1.1 08/04/16 08:22 APTT 26 SECONDS (21-34) 08/04/16 08:22 - Constitutional Appears: No Acute Distress, Confused - Head Exam Head Exam: ATRAUMATIC, NORMAL INSPECTION, NORMOCEPHALIC - Eye Exam Eye Exam: EOMI, Normal appearance, PERRL Pupil Exam: NORMAL ACCOMODATION, PERRL - ENT Exam ENT Exam: Mucous Membranes Moist - Neck Exam Neck Exam: Full ROM, Lymphadenopathy, Normal Inspection - Respiratory Exam Respiratory Exam: Clear to Ausculation Bilateral, NORMAL BREATHING PATTERN - Cardiovascular Exam Cardiovascular Exam: REGULAR RHYTHM, +S1, +S2 - GI/Abdominal Exam GI & Abdominal Exam: Soft, Normal Bowel Sounds Additional comments: non tender, bs+, no HSM, no guarding, no rigidity - Extremities Exam Extremities Exam: Normal Inspection - Neurological Exam Neurological Exam: Awake Additional comments: confused, slightly rest less, poor vision - Skin Skin Exam: Normal Color, Warm Assessment and Plan - Assessment and Plan (Free Text) Plan: 80YO elderly HF with pmh/o HTN, arthritis, s/p thrombocytopenia, renal failure, s/p TTP, on hd 3 x aweek, cardiomyopathy 1. Renal failure, MARCO on ckd 2. HTN 3. cardimyopathy 4. Dementia f/u with psych and cardiology c/w hd 3x a week, as tolerated, uf goal is 1 lit bp is sble sbp about 129 during hd, c/w current meds over all prognosis is poor
[2016-08-11] MEDS: Paricalcitol 2 mcg/ml Inj IV SCH (12:08)
--- NOTE | 2016-08-11 13:35 | CP.PCM.PN ---
Subjective - Date & Time of Evaluation Date of Evaluation: 08/11/16 Time of Evaluation: 13:30 - Subjective Subjective: Patient seen today with staff in the dialysis room. Still confused and restless. Patient still complaining od poor appetite and dysphagia and awaiting swallow eval. Patient eating despite on pureed food. Still with nad mittens on. MSE- elderly female, seen in the dialysis room, still confused and oriented x 1 only. Speech is spontaneous. Affect is restricted. Mood is dysphoric. TP- confused TC- no active si or hi, no overty psychosis. Patient refusing to eat regularly. Attention/ Memory- limited. Insight/Judgment limited. Impulse control guarded. Objective - Vital Signs/Intake and Output Vital Signs (last 24 hours): Temp Pulse Resp BP Pulse Ox 97.4 F L 61 20 135/93 H 95 08/11/16 12:25 08/11/16 12:25 08/11/16 12:25 08/11/16 12:25 08/11/16 12:25 Intake and Output: 08/11/16 08/11/16 06:59 18:59 Intake Total 200 Balance 200 - Medications Medications: Current Medications Carvedilol (Coreg) 3.125 mg PO BID [facility] Last Admin: 08/11/16 09:07 Dose: Not Given Dexamethasone (Decadron Inj) 4 mg IV Q12 [facility] Last Admin: 08/11/16 09:07 Dose: Not Given Famotidine (Pepcid) 20 mg PO DAILY [facility] Last Admin: 08/11/16 09:08 Dose: Not Given Furosemide (Lasix) 60 mg IVP Q12 [facility] Last Admin: 07/29/16 23:09 Dose: 60 mg Hydralazine HCl (Apresoline) 10 mg PO Q8 [facility] Last Admin: 08/11/16 13:23 Dose: Not Given Dexmedetomidine HCl 200 mcg/ (Sodium Chloride) 50 mls @ 3.47 mls/hr IV TITR PRN ; Protocol; 0.2 MCG/KG/HR PRN Reason: Sedation Last Admin: 07/30/16 09:05 Dose: 0.08 mcg/kg/hr, 1.5 mls/hr Insulin Aspart (Novolog) 0 unit SC Q6H JESSI PRN Reason: Protocol Last Admin: 08/11/16 05:52 Dose: 2 unit Insulin Glargine (Lantus) 10 unit SC HS [facility] Last Admin: 08/10/16 22:05 Dose: 10 units Latanoprost (Xalatan Opht) 0 ml OU HS [facility] Last Admin: 08/10/16 22:02 Dose: 2.5 ml Lorazepam (Ativan) 1 mg IVP Q6H PRN PRN Reason: Anxiety Last Admin: 08/11/16 09:00 Dose: 1 mg Megestrol Acetate (Megace) 40 mg PO DAILY [facility] Last Admin: 08/11/16 09:08 Dose: Not Given Paricalcitol (Zemplar) 2 mcg IV MWF [facility] Last Admin: 08/11/16 12:08 Dose: 2 mcg - Labs Labs: 08/11/16 09:42 08/11/16 09:42 PT 12.3 SECONDS (9.7-12.2) H 08/04/16 08:22 INR 1.1 08/04/16 08:22 APTT 26 SECONDS (21-34) 08/04/16 08:22 - Constitutional Appears: No Acute Distress, Confused, Chronically Ill - Head Exam Head Exam: NORMOCEPHALIC - Eye Exam Eye Exam: Normal appearance - ENT Exam Additional comments: has dysphagia - Neck Exam Neck Exam: Full ROM - Respiratory Exam Respiratory Exam: NORMAL BREATHING PATTERN - Cardiovascular Exam Additional comments: no chest pain - GI/Abdominal Exam Additional comments: pt refusing to eat regular food - Exam Additional comments: no dysuria - Back Exam Additional comments: no back pain - Psychiatric Exam Psychiatric exam: Agitated, Anxious - Skin Skin Exam: Warm Assessment and Plan - Assessment and Plan (Free Text) Assessment: Dementia with behavioral problems Delirium Metabolic encephalopathy Plan: Suggest ENT consult to rule out esophagial candidiasis as pt used to take Nystatin before. Continue dialysis as ordered. Continue Ativan prn for agitation . May need PEG placement eventually if she will continue to eat poorly and the ENT Willexam is negative .. Will keep pt in the 4 bedded room for closer monitoring.
--- NOTE | 2016-08-11 14:48 | CP.PCM.PN ---
Subjective - Date & Time of Evaluation Date of Evaluation: 08/11/16 Time of Evaluation: 08:00 - Subjective Subjective: weak/ lethargic had HD no new cultures lungs clear Objective - Vital Signs/Intake and Output Vital Signs (last 24 hours): Temp Pulse Resp BP Pulse Ox 97.4 F L 61 20 132/89 95 08/11/16 12:25 08/11/16 12:25 08/11/16 12:25 08/11/16 14:14 08/11/16 12:25 Intake and Output: 08/11/16 08/11/16 06:59 18:59 Intake Total 200 Balance 200 - Medications Medications: Current Medications Carvedilol (Coreg) 3.125 mg PO BID [facility] Last Admin: 08/11/16 09:07 Dose: Not Given Dexamethasone (Decadron Inj) 4 mg IV Q12 [facility] Last Admin: 08/11/16 09:07 Dose: Not Given Famotidine (Pepcid) 20 mg PO DAILY [facility] Last Admin: 08/11/16 09:08 Dose: Not Given Furosemide (Lasix) 60 mg IVP Q12 [facility] Last Admin: 07/29/16 23:09 Dose: 60 mg Hydralazine HCl (Apresoline) 10 mg PO Q8 [facility] Last Admin: 08/11/16 13:23 Dose: Not Given Dexmedetomidine HCl 200 mcg/ (Sodium Chloride) 50 mls @ 3.47 mls/hr IV TITR PRN ; Protocol; 0.2 MCG/KG/HR PRN Reason: Sedation Last Admin: 07/30/16 09:05 Dose: 0.08 mcg/kg/hr, 1.5 mls/hr Insulin Aspart (Novolog) 0 unit SC Q6H JESSI PRN Reason: Protocol Last Admin: 08/11/16 05:52 Dose: 2 unit Insulin Glargine (Lantus) 10 unit SC HS [facility] Last Admin: 08/10/16 22:05 Dose: 10 units Latanoprost (Xalatan Opht) 0 ml OU HS [facility] Last Admin: 08/10/16 22:02 Dose: 2.5 ml Megestrol Acetate (Megace) 40 mg PO DAILY [facility] Last Admin: 08/11/16 09:08 Dose: Not Given Paricalcitol (Zemplar) 2 mcg IV MWF [facility] Last Admin: 08/11/16 12:08 Dose: 2 mcg - Labs Labs: 08/11/16 09:42 08/11/16 09:42 PT 12.3 SECONDS (9.7-12.2) H 08/04/16 08:22 INR 1.1 08/04/16 08:22 APTT 26 SECONDS (21-34) 08/04/16 08:22 - Constitutional Appears: Non-toxic - Head Exam Head Exam: NORMOCEPHALIC - Eye Exam Eye Exam: PERRL - ENT Exam ENT Exam: Mucous Membranes Dry - Neck Exam Neck Exam: absent: Thyromegaly - Respiratory Exam Respiratory Exam: Decreased Breath Sounds - Cardiovascular Exam Cardiovascular Exam: REGULAR RHYTHM - GI/Abdominal Exam GI & Abdominal Exam: Distended Assessment and Plan (1) Acute respiratory failure requiring reintubation Status: Acute (2) CHF (congestive heart failure) Status: Acute (3) Dehydration Status: Acute (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
[2016-08-11] MEDS: Nystatin 100,000 Units/ml Oral Susp 5 ml UD PO SCH ×2 (17:47→22:23)
--- NOTE | 2016-08-11 20:31 | CP.PCM.PN ---
Subjective - Date & Time of Evaluation Date of Evaluation: 08/07/16 Time of Evaluation: 08:25 - Subjective Subjective: awake, confused family in bedside NAD poor appetite acc to family Objective - Vital Signs/Intake and Output Vital Signs (last 24 hours): Temp Pulse Resp BP Pulse Ox 97.8 F 81 20 132/72 98 08/11/16 15:00 08/11/16 15:00 08/11/16 15:00 08/11/16 15:00 08/11/16 15:00 Intake and Output: 08/11/16 08/12/16 18:59 06:59 Intake Total 75 Balance 75 - Medications Medications: Current Medications Carvedilol (Coreg) 3.125 mg PO BID [facility] Last Admin: 08/11/16 17:47 Dose: 3.125 mg Dexamethasone (Decadron Inj) 4 mg IV Q12 [facility] Last Admin: 08/11/16 09:07 Dose: Not Given Famotidine (Pepcid) 20 mg PO DAILY [facility] Last Admin: 08/11/16 09:08 Dose: Not Given Furosemide (Lasix) 60 mg IVP Q12 [facility] Last Admin: 07/29/16 23:09 Dose: 60 mg Hydralazine HCl (Apresoline) 10 mg PO Q8 [facility] Last Admin: 08/11/16 13:23 Dose: Not Given Dexmedetomidine HCl 200 mcg/ (Sodium Chloride) 50 mls @ 3.47 mls/hr IV TITR PRN ; Protocol; 0.2 MCG/KG/HR PRN Reason: Sedation Last Admin: 07/30/16 09:05 Dose: 0.08 mcg/kg/hr, 1.5 mls/hr Insulin Aspart (Novolog) 0 unit SC Q6H JESSI PRN Reason: Protocol Last Admin: 08/11/16 12:00 Dose: Not Given Insulin Glargine (Lantus) 10 unit SC HS [facility] Last Admin: 08/10/16 22:05 Dose: 10 units Latanoprost (Xalatan Opht) 0 ml OU HS [facility] Last Admin: 08/10/16 22:02 Dose: 2.5 ml Megestrol Acetate (Megace) 40 mg PO DAILY [facility] Last Admin: 08/11/16 09:08 Dose: Not Given Nystatin (Nystatin Oral Susp) 5 ml PO QID [facility] Last Admin: 08/11/16 17:47 Dose: 5 ml Paricalcitol (Zemplar) 2 mcg IV MWF [facility] Last Admin: 08/11/16 12:08 Dose: 2 mcg - Labs Labs: 08/11/16 09:42 08/11/16 09:42 PT 12.3 SECONDS (9.7-12.2) H 08/04/16 08:22 INR 1.1 08/04/16 08:22 APTT 26 SECONDS (21-34) 08/04/16 08:22 - Constitutional Appears: Non-toxic - Eye Exam Eye Exam: absent: Scleral icterus - Neck Exam Neck Exam: Full ROM. absent: Lymphadenopathy - Respiratory Exam Respiratory Exam: Decreased Breath Sounds - Cardiovascular Exam Cardiovascular Exam: REGULAR RHYTHM - GI/Abdominal Exam GI & Abdominal Exam: Soft. 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
--- NOTE | 2016-08-11 20:39 | CP.PCM.PN ---
Subjective - Date & Time of Evaluation Date of Evaluation: 08/11/16 Time of Evaluation: 08:15 - Subjective Subjective: No change medically seen by Neuro appetite remains poor uncooperative NAD Objective - Vital Signs/Intake and Output Vital Signs (last 24 hours): Temp Pulse Resp BP Pulse Ox 97.8 F 81 20 132/72 98 08/11/16 15:00 08/11/16 15:00 08/11/16 15:00 08/11/16 15:00 08/11/16 15:00 Intake and Output: 08/11/16 08/12/16 18:59 06:59 Intake Total 75 Balance 75 - Medications Medications: Current Medications Carvedilol (Coreg) 3.125 mg PO BID [facility] Last Admin: 08/11/16 17:47 Dose: 3.125 mg Dexamethasone (Decadron Inj) 4 mg IV Q12 [facility] Last Admin: 08/11/16 09:07 Dose: Not Given Famotidine (Pepcid) 20 mg PO DAILY [facility] Last Admin: 08/11/16 09:08 Dose: Not Given Furosemide (Lasix) 60 mg IVP Q12 [facility] Last Admin: 07/29/16 23:09 Dose: 60 mg Hydralazine HCl (Apresoline) 10 mg PO Q8 [facility] Last Admin: 08/11/16 13:23 Dose: Not Given Dexmedetomidine HCl 200 mcg/ (Sodium Chloride) 50 mls @ 3.47 mls/hr IV TITR PRN ; Protocol; 0.2 MCG/KG/HR PRN Reason: Sedation Last Admin: 07/30/16 09:05 Dose: 0.08 mcg/kg/hr, 1.5 mls/hr Insulin Aspart (Novolog) 0 unit SC Q6H JESSI PRN Reason: Protocol Last Admin: 08/11/16 12:00 Dose: Not Given Insulin Glargine (Lantus) 10 unit SC HS [facility] Last Admin: 08/10/16 22:05 Dose: 10 units Latanoprost (Xalatan Opht) 0 ml OU HS [facility] Last Admin: 08/10/16 22:02 Dose: 2.5 ml Megestrol Acetate (Megace) 40 mg PO DAILY [facility] Last Admin: 08/11/16 09:08 Dose: Not Given Nystatin (Nystatin Oral Susp) 5 ml PO QID [facility] Last Admin: 08/11/16 17:47 Dose: 5 ml Paricalcitol (Zemplar) 2 mcg IV MWF [facility] Last Admin: 08/11/16 12:08 Dose: 2 mcg - Labs Labs: 08/11/16 09:42 08/11/16 09:42 PT 12.3 SECONDS (9.7-12.2) H 08/04/16 08:22 INR 1.1 08/04/16 08:22 APTT 26 SECONDS (21-34) 08/04/16 08:22 - Constitutional Appears: Non-toxic - Neck Exam Neck Exam: absent: Lymphadenopathy Additional comments: supple - Respiratory Exam Respiratory Exam: Decreased Breath Sounds, NORMAL BREATHING PATTERN - Cardiovascular Exam Cardiovascular Exam: REGULAR RHYTHM - GI/Abdominal Exam GI & Abdominal Exam: Soft. absent: Tenderness - Extremities Exam Extremities Exam: Pedal Edema, Tenderness. absent: Calf Tenderness - Neurological Exam Neurological Exam: Alert Assessment and Plan - Assessment and Plan (Free Text) Assessment: L Possible TTP Low platelet ESRD Dilated cardiomyopathy Metabolic encephalopathy Plan: Cont dialysis Monitor platelets [facility] Cont dialysis
[2016-08-11] MEDS: (Lantus) Insulin Glargine, Recombinant SC SCH (22:22)
[2016-08-11] MEDS: Latanoprost 2.5 ml Opht Soln OU SCH (22:24)
[2016-08-12] MEDS: (Novolog) Insulin Aspart, Recombinant 100 u/ml 10 ml vial SC SCH ×4 (05:41→21:34)
[2016-08-12] MEDS: Dexamethasone 4 mg/1 ml IV SCH (10:39)
[2016-08-12] MEDS: Nystatin 100,000 Units/ml Oral Susp 5 ml UD PO SCH ×4 (10:40→21:28)
--- NOTE | 2016-08-12 13:00 | CP.PCM.PN ---
Subjective - Date & Time of Evaluation Date of Evaluation: 08/12/16 Time of Evaluation: 12:57 - Subjective Subjective: pt seen and examined by me, pt is drowsy, confused, rest less, blisters on both lips, decreased po intake Objective - Vital Signs/Intake and Output Vital Signs (last 24 hours): Temp Pulse Resp BP Pulse Ox 98.9 F 73 20 133/70 95 08/12/16 05:30 08/12/16 05:30 08/12/16 05:30 08/12/16 05:30 08/12/16 05:30 Intake and Output: 08/12/16 08/12/16 06:59 18:59 Intake Total 100 Output Total 1 Balance 99 - Medications Medications: Current Medications Carvedilol (Coreg) 3.125 mg PO BID [facility] Last Admin: 08/12/16 10:39 Dose: 3.125 mg Famotidine (Pepcid) 20 mg PO DAILY [facility] Last Admin: 08/12/16 10:39 Dose: 20 mg Furosemide (Lasix) 60 mg IVP Q12 [facility] Last Admin: 07/29/16 23:09 Dose: 60 mg Hydralazine HCl (Apresoline) 10 mg PO Q8 [facility] Last Admin: 08/12/16 06:45 Dose: 10 mg Dexmedetomidine HCl 200 mcg/ (Sodium Chloride) 50 mls @ 3.47 mls/hr IV TITR PRN ; Protocol; 0.2 MCG/KG/HR PRN Reason: Sedation Last Admin: 07/30/16 09:05 Dose: 0.08 mcg/kg/hr, 1.5 mls/hr Insulin Aspart (Novolog) 0 unit SC Q6H JESSI PRN Reason: Protocol Last Admin: 08/12/16 11:53 Dose: Not Given Insulin Glargine (Lantus) 10 unit SC HS [facility] Last Admin: 08/11/16 22:22 Dose: 10 units Latanoprost (Xalatan Opht) 0 ml OU HS [facility] Last Admin: 08/11/16 22:24 Dose: 2.5 ml Megestrol Acetate (Megace) 40 mg PO DAILY [facility] Last Admin: 08/12/16 10:40 Dose: 40 mg Nystatin (Nystatin Oral Susp) 5 ml PO QID [facility] Last Admin: 08/12/16 10:40 Dose: 5 ml Paricalcitol (Zemplar) 2 mcg IV MWF [facility] Last Admin: 08/11/16 12:08 Dose: 2 mcg Valacyclovir HCl (Valtrex) 500 mg PO Q6 [facility] - Labs Labs: 08/11/16 09:42 08/11/16 09:42 PT 12.3 SECONDS (9.7-12.2) H 08/04/16 08:22 INR 1.1 08/04/16 08:22 APTT 26 SECONDS (21-34) 08/04/16 08:22 - Constitutional Appears: Well, Non-toxic, No Acute Distress - Head Exam Head Exam: ATRAUMATIC, NORMAL INSPECTION, NORMOCEPHALIC - Eye Exam Eye Exam: EOMI, PERRL Pupil Exam: NORMAL ACCOMODATION, PERRL - ENT Exam ENT Exam: Mucous Membranes Dry, Normal Exam - Neck Exam Neck Exam: Full ROM, Normal Inspection - Respiratory Exam Respiratory Exam: Clear to Ausculation Bilateral, NORMAL BREATHING PATTERN - Cardiovascular Exam Cardiovascular Exam: REGULAR RHYTHM, +S1, +S2 - GI/Abdominal Exam GI & Abdominal Exam: Soft, Normal Bowel Sounds - Rectal Exam Rectal Exam: Deferred - Extremities Exam Extremities Exam: Full ROM, Normal Inspection Additional comments: no edema of legs - Neurological Exam Neurological Exam: Altered Additional comments: drowsy, arousable, some time rest less, decreased po - Skin Skin Exam: Normal Color Additional comments: skin lesions on both lips Assessment and Plan - Assessment and Plan (Free Text) Plan: 80yo HF with h/o htn, arthritis, s/p thrombocytopenia, cardiomyopathy, chf, resp. failure, TTP, s/p TPE , MARCO on CKD on hd with decreased po intake, skin lesions on both lips, off steroids 1. MARCO on CKD 2. hTN 3. Cardiomyopathy 4. Skin lesions on both lips r/o Herpes , started on valtrex po, consider to change iv due to decreased po d/c lasix, start ivf d5ns at 50 ml/hr
[2016-08-12] MEDS ORDERED: Dextrose 5%/0.9% NS 1,000 ML IV ONE (13:08)
[2016-08-12] MEDS ORDERED: ceFAZolin IV 1 gm in Dextrose 1 GM/50 ML BAG IVPB ONE (18:00)
--- NOTE | 2016-08-12 18:27 | CP.PCM.PN ---
Subjective - Date & Time of Evaluation Date of Evaluation: 08/12/16 Time of Evaluation: 18:24 - Subjective Subjective: Awake, confused, easily agitated blisters in mouth noted Objective - Vital Signs/Intake and Output Vital Signs (last 24 hours): Temp Pulse Resp BP Pulse Ox 98.4 F 64 20 138/71 95 08/12/16 15:00 08/12/16 15:00 08/12/16 15:00 08/12/16 15:00 08/12/16 05:30 Intake and Output: 08/12/16 08/12/16 06:59 18:59 Intake Total 100 150 Output Total 1 Balance 99 150 - Medications Medications: Current Medications Carvedilol (Coreg) 3.125 mg PO BID [facility] Last Admin: 08/12/16 17:40 Dose: 3.125 mg Famotidine (Pepcid) 20 mg PO DAILY [facility] Last Admin: 08/12/16 10:39 Dose: 20 mg Hydralazine HCl (Apresoline) 10 mg PO Q8 [facility] Last Admin: 08/12/16 13:47 Dose: 10 mg Dexmedetomidine HCl 200 mcg/ (Sodium Chloride) 50 mls @ 3.47 mls/hr IV TITR PRN ; Protocol; 0.2 MCG/KG/HR PRN Reason: Sedation Last Admin: 07/30/16 09:05 Dose: 0.08 mcg/kg/hr, 1.5 mls/hr Dextrose/Sodium Chloride (Dextrose 5%/0.9% Ns 1000 Ml) 1,000 mls @ 50 mls/hr IV .Q20H ONE Stop: 08/13/16 09:07 Last Admin: 08/12/16 14:37 Dose: 50 mls/hr Cefazolin Sodium/Dextrose (Ancef Iv 1 Gm Duplex) 1 gm in 50 mls @ 100 mls/hr IVPB BID ONE Stop: 08/12/16 18:29 Last Admin: 08/12/16 17:41 Dose: 100 mls/hr Insulin Aspart (Novolog) 0 unit SC Q6H JESSI PRN Reason: Protocol Last Admin: 08/12/16 11:53 Dose: Not Given Insulin Glargine (Lantus) 10 unit SC HS [facility] Last Admin: 08/11/16 22:22 Dose: 10 units Latanoprost (Xalatan Opht) 0 ml OU HS [facility] Last Admin: 08/11/16 22:24 Dose: 2.5 ml Megestrol Acetate (Megace) 40 mg PO DAILY [facility] Last Admin: 08/12/16 10:40 Dose: 40 mg Nystatin (Nystatin Oral Susp) 5 ml PO QID [facility] Last Admin: 08/12/16 17:41 Dose: 5 ml Paricalcitol (Zemplar) 2 mcg IV MWF [facility] Last Admin: 08/11/16 12:08 Dose: 2 mcg Valacyclovir HCl (Valtrex) 500 mg PO DAILY [facility] - Labs Labs: 08/11/16 09:42 08/11/16 09:42 PT 12.3 SECONDS (9.7-12.2) H 08/04/16 08:22 INR 1.1 08/04/16 08:22 APTT 26 SECONDS (21-34) 08/04/16 08:22 - Constitutional Appears: No Acute Distress - Eye Exam Eye Exam: absent: Scleral icterus - ENT Exam Additional comments: +oral blisters - Neck Exam Neck Exam: Full ROM - Respiratory Exam Respiratory Exam: Decreased Breath Sounds, Clear to Ausculation Bilateral - Cardiovascular Exam Cardiovascular Exam: REGULAR RHYTHM - GI/Abdominal Exam GI & Abdominal Exam: Soft. absent: Tenderness - Extremities Exam Extremities Exam: Pedal Edema. 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
[2016-08-12] MEDS: Latanoprost 2.5 ml Opht Soln OU SCH (21:28)
[2016-08-12] MEDS: (Lantus) Insulin Glargine, Recombinant SC SCH (21:48)
[2016-08-13] MEDS: (Novolog) Insulin Aspart, Recombinant 100 u/ml 10 ml vial SC SCH ×4 (06:00→18:00)
[2016-08-13 07:29] LABS: ALBUMIN 3.2 g/dL (3.5-5.0)
[2016-08-13 07:32] LABS: ALB/GLOB RATIO 0.9 (1.0-2.1)
[2016-08-13 07:33] LABS: CALCIUM 8.5 mg/dl (8.6-10.4)
[2016-08-13 07:38] LABS: HEMOGLOBIN 12.4 g/dL (11.0-16.0); MEAN CORPUSCULAR HEMOGLOBIN 32.9 pg (27.0-31.0); MEAN CORPUSCULAR HGB CONC 31.9 g/dL (33.0-37.0); MEAN PLATELET VOLUME 9.9 fL (7.2-11.7); RBC 3.76 Mil/uL (3.80-5.20); RED CELL DISTRIBUTION WIDTH 19.3 % (11.5-14.5); WHITE BLOOD COUNT 14.8 K/uL (4.8-10.8)
[2016-08-13] MEDS: Paricalcitol 2 mcg/ml Inj IV SCH (09:54)
[2016-08-13] MEDS: Nystatin 100,000 Units/ml Oral Susp 5 ml UD PO SCH ×3 (10:56→18:16)
[2016-08-13] MEDS: Mag&Al/Simet/Diphen/Lido 237 ML KIT PO SCH ×3 (11:26→18:16)
--- NOTE | 2016-08-13 11:44 | CP.PCM.PN ---
Subjective - Date & Time of Evaluation Date of Evaluation: 08/13/16 Time of Evaluation: 11:42 - Subjective Subjective: pt seen and examined during hd, pt is restless, tossing and turning on the bed, confused uf goal is about 1 lit, decreased po intake Objective - Vital Signs/Intake and Output Vital Signs (last 24 hours): Temp Pulse Resp BP Pulse Ox 98 F 79 16 128/76 98 08/13/16 09:00 08/13/16 09:00 08/13/16 09:00 08/13/16 11:30 08/13/16 09:00 Intake and Output: 08/13/16 08/13/16 06:59 18:59 Intake Total 1000 Balance 1000 - Medications Medications: Current Medications Carvedilol (Coreg) 3.125 mg PO BID [facility] Last Admin: 08/13/16 10:56 Dose: 3.125 mg Famotidine (Pepcid) 20 mg PO DAILY [facility] Last Admin: 08/13/16 10:56 Dose: 20 mg Hydralazine HCl (Apresoline) 10 mg PO Q8 [facility] Last Admin: 08/13/16 05:50 Dose: 10 mg Dexmedetomidine HCl 200 mcg/ (Sodium Chloride) 50 mls @ 3.47 mls/hr IV TITR PRN ; Protocol; 0.2 MCG/KG/HR PRN Reason: Sedation Last Admin: 07/30/16 09:05 Dose: 0.08 mcg/kg/hr, 1.5 mls/hr Insulin Aspart (Novolog) 0 unit SC Q6H [facility] PRN Reason: Protocol Last Admin: 08/13/16 06:00 Dose: Not Given Insulin Glargine (Lantus) 10 unit SC HS [facility] Last Admin: 08/12/16 21:48 Dose: 10 units Latanoprost (Xalatan Opht) 0 ml OU HS [facility] Last Admin: 08/12/16 21:28 Dose: 2.5 ml Megestrol Acetate (Megace) 40 mg PO DAILY [facility] Last Admin: 08/13/16 10:59 Dose: 40 mg Nystatin (Nystatin Oral Susp) 5 ml PO QID [facility] Last Admin: 08/13/16 10:56 Dose: 5 ml Paricalcitol (Zemplar) 2 mcg IV MWF [facility] Last Admin: 08/13/16 09:54 Dose: 2 mcg Saliva Substitute (First Magic Mouthwash) 5 ml PO QID [facility] Last Admin: 08/13/16 11:26 Dose: 5 ml Valacyclovir HCl (Valtrex) 500 mg PO DAILY [facility] Last Admin: 08/13/16 11:07 Dose: 500 mg - Labs Labs: 08/13/16 07:02 08/13/16 07:02 PT 12.3 SECONDS (9.7-12.2) H 08/04/16 08:22 INR 1.1 08/04/16 08:22 APTT 26 SECONDS (21-34) 08/04/16 08:22 - Constitutional Appears: No Acute Distress, Confused, Cachectic - Head Exam Head Exam: ATRAUMATIC, NORMAL INSPECTION, NORMOCEPHALIC - Eye Exam Eye Exam: EOMI, PERRL Pupil Exam: NORMAL ACCOMODATION, PERRL - ENT Exam ENT Exam: Mucous Membranes Dry - Neck Exam Neck Exam: Full ROM, Normal Inspection - Respiratory Exam Respiratory Exam: NORMAL BREATHING PATTERN - Cardiovascular Exam Cardiovascular Exam: REGULAR RHYTHM, +S1, +S2 - GI/Abdominal Exam GI & Abdominal Exam: Soft, Normal Bowel Sounds - Rectal Exam Rectal Exam: Deferred - Extremities Exam Extremities Exam: Full ROM, Normal Inspection Additional comments: no edema - Neurological Exam Neurological Exam: Altered, Awake Additional comments: confused, restless - Psychiatric Exam Additional comments: confused, restless - Skin Skin Exam: Normal Color, Warm Assessment and Plan - Assessment and Plan (Free Text) Plan: 80 YO HF with htn, arthritis, s/p TTP cardiomyopathy, Elise on ckd on hd 3 x aweek, with low platelest again today 1. renal failure, ELISE on ckd 2. thrombocytopenia, r/o TTP 3. htn 4. AMS ? dementia and delerium continue hd 3 x aweek mwf as tolertaed f/u with hematology for thrombocytopenia d/w dr. dumont in rounds
--- NOTE | 2016-08-13 14:47 | CP.PCM.PN ---
Subjective - Date & Time of Evaluation Date of Evaluation: 08/13/16 Time of Evaluation: 14:43 - Subjective Subjective: Patient seen with daughter. Still confused and not eating well but noted to have herpetic like lesions on her mouth. Still gets restless during dialysis despite on Ativan prn. MSE- elderly female, oriented x 1 only. still with hand mittens. Affect is restricted. Mood is irritable. Speech is spontaneous. TP-Attention confused off and on. TC_ no si or hi, no psychosis. Attention/ Memory impaired. Insight/ Judgment limited. Impulse cotrol guarded. Objective - Vital Signs/Intake and Output Vital Signs (last 24 hours): Temp Pulse Resp BP Pulse Ox 98.1 F 73 17 122/71 96 08/13/16 12:05 08/13/16 12:05 08/13/16 12:05 08/13/16 12:05 08/13/16 12:05 Intake and Output: 08/13/16 08/13/16 06:59 18:59 Intake Total 1000 Balance 1000 - Medications Medications: Current Medications Alteplase, Recombinant (Cathflo 2 Mg Inj) 2 mg IV ONCE ONE Stop: 08/15/16 08:01 Alteplase, Recombinant (Cathflo 2 Mg Inj) 2 mg IV ONCE ONE Stop: 08/15/16 08:01 Carvedilol (Coreg) 3.125 mg PO BID [facility] Last Admin: 08/13/16 10:56 Dose: 3.125 mg Famotidine (Pepcid) 20 mg PO DAILY [facility] Last Admin: 08/13/16 10:56 Dose: 20 mg Hydralazine HCl (Apresoline) 10 mg PO Q8 [facility] Last Admin: 08/13/16 13:02 Dose: 10 mg Dexmedetomidine HCl 200 mcg/ (Sodium Chloride) 50 mls @ 3.47 mls/hr IV TITR PRN ; Protocol; 0.2 MCG/KG/HR PRN Reason: Sedation Last Admin: 07/30/16 09:05 Dose: 0.08 mcg/kg/hr, 1.5 mls/hr Insulin Aspart (Novolog) 0 unit SC Q6H JESSI PRN Reason: Protocol Last Admin: 08/13/16 12:47 Dose: Not Given Insulin Glargine (Lantus) 10 unit SC [facility] Last Admin: 08/12/16 21:48 Dose: 10 units Latanoprost (Xalatan Opht) 0 ml OU HS [facility] Last Admin: 08/12/16 21:28 Dose: 2.5 ml Megestrol Acetate (Megace) 40 mg PO DAILY [facility] Last Admin: 08/13/16 10:59 Dose: 40 mg Nystatin (Nystatin Oral Susp) 5 ml PO QID [facility] Last Admin: 08/13/16 13:14 Dose: 5 ml Paricalcitol (Zemplar) 2 mcg IV MWF [facility] Last Admin: 08/13/16 09:54 Dose: 2 mcg Saliva Substitute (First Magic Mouthwash) 5 ml PO QID [facility] Last Admin: 08/13/16 13:07 Dose: 5 ml Valacyclovir HCl (Valtrex) 500 mg PO DAILY [facility] Last Admin: 08/13/16 11:07 Dose: 500 mg - Labs Labs: 08/13/16 07:02 08/13/16 07:02 PT 12.3 SECONDS (9.7-12.2) H 08/04/16 08:22 INR 1.1 08/04/16 08:22 APTT 26 SECONDS (21-34) 08/04/16 08:22 - Constitutional Appears: No Acute Distress, Confused, Chronically Ill - Head Exam Head Exam: NORMOCEPHALIC - Eye Exam Eye Exam: Normal appearance - ENT Exam Additional comments: noted to have herpetic lesions on her mouth - Neck Exam Neck Exam: Full ROM - Respiratory Exam Respiratory Exam: NORMAL BREATHING PATTERN - Cardiovascular Exam Additional comments: no palpitations - GI/Abdominal Exam Additional comments: has poor appete, still has dysphagia - Exam Additional comments: no dysuria - Extremities Exam Additional comments: has hand mittens on - Back Exam Additional comments: no back pain - Neurological Exam Neurological Exam: Altered - Psychiatric Exam Psychiatric exam: Agitated, Anxious - Skin Skin Exam: Normal Color Assessment and Plan - Assessment and Plan (Free Text) Assessment: Dementia Delirium Metabolic encephalopathy Plan: Continue present plan and tx paln. Continue Ativan prn and dialysis as ordered.
[2016-08-13 17:20] VITALS: BP 135/76; PULSE 79; RESP 95; TEMP 98.4; O2SAT 18
[2016-08-13] MEDS ORDERED: Potassium Chloride 20 mEq/15 ml LIQ UD PO ONE (17:30)
--- NOTE | 2016-08-13 17:41 | CP.PCM.PN ---
Subjective - Date & Time of Evaluation Date of Evaluation: 08/13/16 Time of Evaluation: 11:00 - Subjective Subjective: Confused, demented, no acute distress. Objective - Vital Signs/Intake and Output Vital Signs (last 24 hours): Temp Pulse Resp BP Pulse Ox 98.4 F 79 95 H 135/76 18 L 08/13/16 16:00 08/13/16 16:00 08/13/16 16:00 08/13/16 16:00 08/13/16 16:00 Intake and Output: 08/13/16 08/13/16 06:59 18:59 Intake Total 1000 Balance 1000 - Medications Medications: Current Medications Alteplase, Recombinant (Cathflo 2 Mg Inj) 2 mg IV ONCE ONE Stop: 08/15/16 08:01 Alteplase, Recombinant (Cathflo 2 Mg Inj) 2 mg IV ONCE ONE Stop: 08/15/16 08:01 Carvedilol (Coreg) 3.125 mg PO BID [facility] Last Admin: 08/13/16 10:56 Dose: 3.125 mg Famotidine (Pepcid) 20 mg PO DAILY [facility] Last Admin: 08/13/16 10:56 Dose: 20 mg Hydralazine HCl (Apresoline) 10 mg PO Q8 [facility] Last Admin: 08/13/16 13:02 Dose: 10 mg Dexmedetomidine HCl 200 mcg/ (Sodium Chloride) 50 mls @ 3.47 mls/hr IV TITR PRN ; Protocol; 0.2 MCG/KG/HR PRN Reason: Sedation Last Admin: 07/30/16 09:05 Dose: 0.08 mcg/kg/hr, 1.5 mls/hr Insulin Aspart (Novolog) 0 unit SC Q6H JESSI PRN Reason: Protocol Last Admin: 08/13/16 12:47 Dose: Not Given Insulin Glargine (Lantus) 10 unit SC HS [facility] Last Admin: 08/12/16 21:48 Dose: 10 units Latanoprost (Xalatan Opht) 0 ml OU HS [facility] Last Admin: 08/12/16 21:28 Dose: 2.5 ml Megestrol Acetate (Megace) 40 mg PO DAILY [facility] Last Admin: 08/13/16 10:59 Dose: 40 mg Nystatin (Nystatin Oral Susp) 5 ml PO QID [facility] Last Admin: 08/13/16 13:14 Dose: 5 ml Paricalcitol (Zemplar) 2 mcg IV MWF [facility] Last Admin: 08/13/16 09:54 Dose: 2 mcg Potassium Chloride (Potassium Chloride Oral Soln) 40 meq PO ONCE ONE Stop: 08/13/16 17:31 Saliva Substitute (First Magic Mouthwash) 5 ml PO QID [facility] Last Admin: 08/13/16 13:07 Dose: 5 ml Valacyclovir HCl (Valtrex) 500 mg PO DAILY [facility] Last Admin: 08/13/16 11:07 Dose: 500 mg - Labs Labs: 08/13/16 07:02 08/13/16 07:02 PT 12.3 SECONDS (9.7-12.2) H 08/04/16 08:22 INR 1.1 08/04/16 08:22 APTT 26 SECONDS (21-34) 08/04/16 08:22 Assessment and Plan - Assessment and Plan (Free Text) Assessment: Patient is seen and examined. Confused, disoriented, no agition or distress. poor oral intake, is on magic mouth wash for oral sores. D/W DR Mclaughlin, [facility]. 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 To continue using life vest in the [facility] and encourage oral intake.
== END 2016-08-13 20:21 | DRG 121 ==
LOC: C.ER 17:09 → C.9E 20:33 → MERGE 20:33 → C.3T 21:06 → C.9I 07-23 05:07 → C.3T 08-02 01:38
PROVIDERS: ADMIT Internal Medicine; ATTEND Internal Medicine
PROC: 5A1955Z Respiratory Ventilation, Greater than 96 Consecutive Hours (ICD-10-PCS; principal; 2016-07-23)
PROC: 0BH17EZ Insertion of Endotracheal Airway into Trachea, Via Natural or Artificial Opening (ICD-10-PCS; 2016-07-23)
PROC: 05HM33Z Insertion of Infusion Device into Right Internal Jugular Vein, Percutaneous Approach (ICD-10-PCS; 2016-07-23)
PROC: 30233K1 Transfusion of Nonautologous Frozen Plasma into Peripheral Vein, Percutaneous Approach (ICD-10-PCS; 2016-07-23)
PROC: 6A551Z3 Pheresis of Plasma, Multiple (ICD-10-PCS; 2016-07-24)
PROC: 3E0G76Z Introduction of Nutritional Substance into Upper GI, Via Natural or Artificial Opening (ICD-10-PCS; 2016-07-24)
PROC: 5A1D60Z (ICD-10-PCS; 2016-07-28)
PROC: 05H633Z Insertion of Infusion Device into Left Subclavian Vein, Percutaneous Approach (ICD-10-PCS; 2016-08-04)
PROC: B547ZZA Ultrasonography of Left Subclavian Vein, Guidance (ICD-10-PCS; 2016-08-04)
DX: I21.4 Non-ST elevation (NSTEMI) myocardial infarction (principal); J96.01 Acute respiratory failure with hypoxia; N17.0 Acute kidney failure with tubular necrosis; G93.41 Metabolic encephalopathy; A41.9 Sepsis, unspecified organism; J18.9 Pneumonia, unspecified organism; D69.3 Immune thrombocytopenic purpura; I13.2 Hypertensive heart and chronic kidney disease with heart failure and with stage 5 chronic kidney disease, or end stage renal disease; N18.6 End stage renal disease; I50.22 Chronic systolic (congestive) heart failure; E86.0 Dehydration; F03.91 Unspecified dementia, unspecified severity, with behavioral disturbance; I42.0 Dilated cardiomyopathy; M34.9 Systemic sclerosis, unspecified; R15.9 Full incontinence of feces; F39 Unspecified mood [affective] disorder; R13.10 Dysphagia, unspecified; D58.0 Hereditary spherocytosis; E83.39 Other disorders of phosphorus metabolism; R19.7 Diarrhea, unspecified; M17.0 Bilateral primary osteoarthritis of knee; H40.9 Unspecified glaucoma; H54.7 Unspecified visual loss; F17.210 Nicotine dependence, cigarettes, uncomplicated; Z98.42 Cataract extraction status, left eye; Z74.01 Bed confinement status; Z90.710 Acquired absence of both cervix and uterus; E04.2 Nontoxic multinodular goiter

== ENCOUNTER 2016-08-15 23:49 | Inpatient (IN) | payer MEDICAID ==
--- NOTE | 2016-08-16 00:25 | C.PDOC ---
History Of Present Illness A 80 y/o F presents her complaining that her life vest was leaking blue gel at the [facility] PREPARATOR. Denies any physical complaints at this time. Time Seen by Provider: 08/16/16 00:17 Chief Complaint (Nursing): Medical Clearance History Per: Patient History/Exam Limitations: no limitations Onset/Duration Of Symptoms: Hrs Current Symptoms Are (Timing): Still Present Severity: Mild Recent travel outside of the [place]: No Additional History Per: Patient Past Medical History Reviewed: Historical Data, Nursing Documentation, Vital Signs Vital Signs: Last Vital Signs Temp 97.7 F 08/16/16 04:50 Pulse 83 08/16/16 04:50 Resp 18 08/16/16 04:50 BP 128/68 08/16/16 04:50 Pulse Ox 96 08/16/16 04:50 - Medical History PMH: Anemia, Arthritis, HTN, Peripheral Edema Denies: Chronic Kidney Disease - [facility] Procedures INSERT INFUSION DEV IN R INT JUGULAR VEIN, PERC (07/20/16) INSERTION OF ENDOTRACHEAL AIRWAY INTO TRACHEA, VIA OPENING (07/20/16) INSERTION OF INFUSION DEV INTO L SUBCLAV VEIN, PERC APPROACH (07/20/16) INTRODUCTION OF NUTRITIONAL INTO UP GI, VIA OPENING (07/20/16) PERFORMANCE OF URINARY FILTRATION, MULTIPLE (07/20/16) PHERESIS OF PLASMA, MULTIPLE (07/20/16) RESPIRATORY VENTILATION, GREATER THAN 96 CONSECUTIVE HOURS (07/20/16) TRANSFUSE NONAUT FROZEN PLASMA IN PERIPH VEIN, PERC (07/20/16) ULTRASONOGRAPHY OF LEFT SUBCLAVIAN VEIN, GUIDANCE (07/20/16) Family History: States: Unknown Family Hx - Social History Hx Alcohol Use: No Hx Substance Use: No - Immunization History Hx Tetanus Toxoid Vaccination: No Hx Influenza Vaccination: No Hx Pneumococcal Vaccination: No Review Of Systems Except As Marked, All Systems Reviewed And Found Negative. Constitutional: Negative for: Fever, Chills, Sweats Cardiovascular: Negative for: Chest Pain, Palpitations, Light Headedness Respiratory: Negative for: Shortness of Breath Gastrointestinal: Negative for: Nausea, Vomiting, Abdominal Pain, Diarrhea Neurological: Negative for: Dizziness Physical Exam - Physical Exam Appears: Non-toxic, No Acute Distress, Other (Confused. Life vest on pt.) Skin: Warm, Dry Head: Atraumatic, Normacephalic Eye(s): bilateral: Normal Inspection Oral Mucosa: Moist Neck: Supple Cardiovascular: Rhythm Regular, No Murmur Respiratory: Normal Breath Sounds, No Accessory Muscle Use, No Rales, No Rhonchi , No Wheezing Gastrointestinal/Abdominal: Soft, No Tenderness, No Guarding, No Rebound Neurological/Psych: Oriented x3, Normal Speech, Normal Cognition ED Course And Treatment - Laboratory Results Result Diagrams: 08/16/16 00:33 08/16/16 00:33 ECG: Interpreted By Me, Viewed By Me ECG Rhythm: Sinus Rhythm ECG Interpretation: No Acute Changes, Abnormal Interpretation Of ECG: NSR, LVH, ST-T changes Rate From EC O2 Sat by Pulse Oximetry: 95 (RA) Pulse Ox Interpretation: Normal Medical Decision Making Medical Decision Making: Impression: A 80 y/o F presents her complaining that her life vest was leaking blue gel at the [facility] PREPARATOR. Plans: -EKG -Blood labs -CXR -Amiodarone -IV fluids -Reassess Dr. Hendrickson contacted and advised for telemetry for ICU Disposition Discussed With Dr.: Sung Ureña Doctor Will See Patient In The: Hospital Counseled Patient/Family Regarding: Diagnosis - Disposition Disposition: HOSPITALIZED Disposition Time: 03:15 Condition: STABLE - POA Present On Arrival: None - Clinical Impression Clinical Impression: ESRD (end stage renal disease) on dialysis, Cardiac dysrhythmia - Scribe Statement The provider has reviewed the documentation as recorded by the Scribe Lily gonzalez All medical record entries made by the Scribe were at my direction and personally dictated by me. I have reviewed the chart and agree that the record accurately reflects my personal performance of the history, physical exam, medical decision making, and the department course for this patient. I have also personally directed, reviewed, and agree with the discharge instructions and disposition.
[2016-08-16] MEDS ORDERED: Amiodarone 150mg/3 ml vial IVP ONE ×2 (00:29→00:39)
[2016-08-16 00:36] LABS: BASO # 0.1 K/uL (0.0-0.2); BASO % 0.8 % (0.0-2.0); EOS # 0.2 K/uL (0.0-0.7); EOS % 2.2 % (0.0-4.0); HEMATOCRIT 36.6 % (34.0-47.0); LYMPH # 1.1 K/uL (1.0-4.3); LYMPH % 10.2 % (20.0-40.0); MEAN CELL VOLUME 101.4 fL (81.0-99.0); MEAN CORPUSCULAR HEMOGLOBIN 32.5 pg (27.0-31.0); MEAN PLATELET VOLUME 9.5 fL (7.2-11.7); MONO # 0.7 K/uL (0.0-0.8); MONO % 6.7 % (0.0-10.0); NRBC % 0.1 % (0.0-2.0); RED CELL DISTRIBUTION WIDTH 19.5 % (11.5-14.5); WHITE BLOOD COUNT 10.9 K/uL (4.8-10.8)
[2016-08-16] MEDS ORDERED: Amiodarone 150mg/3 ml vial ONE (00:49)
[2016-08-16 00:54] LABS: CALCIUM 7.9 mg/dl (8.6-10.4); TOTAL PROTEIN 5.9 g/dL (6.3-8.3)
[2016-08-16 01:11] LABS: TROPONIN I 0.227 ng/mL (0.00-0.120)
[2016-08-16] MEDS ORDERED: DiphenhydrAMINE 50 mg/ml Inj IVP STA (05:12)
[2016-08-16] MEDS ORDERED: DiphenhydrAMINE 50 mg/ml Inj ONE (05:13)
[2016-08-16 06:37] VITALS: BMI 17.9
--- NOTE | 2016-08-16 08:50 | RAD ---
PROCEDURE: CHEST RADIOGRAPH, 1 VIEW HISTORY: chest pain COMPARISON: 12/14/2014 FINDINGS: LUNGS: Left central venous catheter extending to the distal right SVC. Prominent diffuse increased interstitial lung markings suggestive for edema and or infiltrate. Patchy consolidative changes at the left lung base. PLEURA: Question small left pleural effusion. CARDIOVASCULAR: Cardiomegaly. OSSEOUS STRUCTURES: No significant abnormalities. VISUALIZED UPPER ABDOMEN: Normal. OTHER FINDINGS: None. IMPRESSION: Left central venous catheter extending to the distal right SVC. Prominent diffuse increased interstitial lung markings suggestive for edema and or infiltrate. Patchy consolidative changes at the left lung base.
[2016-08-16] MEDS ORDERED: CARBOXYMETHYLCELLULOSE SODIUM OU SCH (10:00)
[2016-08-16] MEDS: Mag&Al/Simet/Diphen/Lido 237 ML KIT PO SCH ×4 (10:30→21:32)
[2016-08-16] MEDS: Aritificial Tears (15ml) OU SCH ×3 (14:00→21:32)
[2016-08-16] MEDS ORDERED: Tears Naturale Forte (15ml) OU SCH (14:00)
--- NOTE | 2016-08-16 14:32 | CP.PCM.HP ---
History of Present Illness - History of Present Illness History of Present Illness: 80 years old female with past medical history of hypertension, arthritis, peripheral edema, CHF, TTP, admitted with complaints of lethargy, confusion, abdominal pain and found to have decreased platelet level and was diagnosed with TTP and underwent plasmapheresis, patient underwent dialysis for renal insufficiency patient. Patient came to ER for leaking blue gel from life vest. Blood pressure low, increased BUN/creatinine ratio noted. No physical complaint at this time Present on Admission - Present on Admission Any Indicators Present on Admission: No Past Patient History - Past Medical History & Family History Past Medical History?: Yes - Past Social History Smoking Status: Never Smoked - CARDIAC Hx Hypertension: Yes Hx Peripheral Edema: Yes - PULMONARY Hx Respiratory Disorders: No - NEUROLOGICAL Hx Neurological Disorder: Yes Hx Dementia: Yes - HEENT Hx HEENT Problems: Yes - RENAL Date of Last Dialysis Treatment: 08/14/16 - ENDOCRINE/METABOLIC Hx Endocrine Disorders: Yes (enlarged thyroid) Hx Diabetes Mellitus Type 2: Yes - HEMATOLOGICAL/ONCOLOGICAL Hx Anemia: Yes - INTEGUMENTARY Hx Dermatological Problems: Yes (generalized pruritus) - MUSCULOSKELETAL/RHEUMATOLOGICAL Hx Falls: No - GASTROINTESTINAL Hx Gastrointestinal Disorders: No - GENITOURINARY/GYNECOLOGICAL Hx Genitourinary Disorders: No - PSYCHIATRIC Hx Substance Use: No - SURGICAL HISTORY Hx Surgeries: Yes Other/Comment: 1993 THYROID SX - ANESTHESIA Hx Anesthesia: Yes Hx Anesthesia Reactions: No Hx Malignant Hyperthermia: No Meds Allergies/Adverse Reactions: Allergies Allergy/AdvReac Type Severity Reaction Status Date / Time No Known Allergies Allergy Verified 08/16/16 01:13 Physical Exam - Constitutional Appears: Well - Head Exam Head Exam: ATRAUMATIC, NORMAL INSPECTION, NORMOCEPHALIC - Eye Exam Eye Exam: EOMI, Normal appearance, PERRL Pupil Exam: NORMAL ACCOMODATION, PERRL - ENT Exam ENT Exam: Mucous Membranes Moist, Normal Exam - Neck Exam Neck exam: Positive for: Normal Inspection - Respiratory Exam Respiratory Exam: Decreased Breath Sounds - Cardiovascular Exam Cardiovascular Exam: REGULAR RHYTHM, +S1, +S2 - GI/Abdominal Exam GI & Abdominal Exam: Diminished Bowel Sounds, Soft - Rectal Exam Rectal Exam: Deferred Results - Vital Signs Recent Vital Signs: Last Vital Signs Temp 98.3 F 08/16/16 12:00 Pulse 74 08/16/16 12:00 Resp 18 08/16/16 12:00 BP 91/39 L 08/16/16 12:00 Pulse Ox 95 08/16/16 12:00 - Labs Result Diagrams: 09/14/16 06:31 09/14/16 06:31 Labs: Laboratory Results - last 24 hr 08/16/16 08:08 Total Creatine Kinase 125 CK-MB (Mass) 8.33 H Troponin I, Quant 0.2380 H* Assessment & Plan (1) Cardiac dysrhythmia Status: Acute (2) ESRD (end stage renal disease) on dialysis Status: Acute (3) Pulmonary edema Status: Acute (4) MARCO (acute kidney injury) Status: Acute (5) Acute respiratory failure requiring reintubation Status: Acute (6) Arthritis Status: Acute (7) CHF (congestive heart failure) Status: Acute (8) Dehydration Status: Acute (9) Dehydration Status: Acute (10) Diverticulosis Status: Acute (11) Elevated CEA Status: Acute (12) Hypertension Status: Acute (13) Inguinal lymphadenopathy Status: Acute (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
--- NOTE | 2016-08-16 15:01 | CP.PCM.CON ---
History of Present Illness - History of Present Illness History of Present Illness: NEURO CONSULT NOTE: 08/16/16 CHIEF COMPLAINT: CONFUSION HPI: THIS IS A 80 YEAR OLD WOMAN WITH HISTORY OF HTN, ARTHRITIS, CHF WAS ADMITTED FOR ABDOMINAL PAIN, LETHARGY, CONFUSION AND FOUND TO HAVE LOW PLATELETS, LOW EJECTION FRACTION WAS DIAGNOSED TTP AND UNDERWENT PLASMAPHORESIS, AND UNDERWENT DIALYSIS FOR RENAL INSUFFICIENCY CONSULTED FOR CONFUSION. CAME TO HOSPITAL FOR LEAKING BL[facility] GEL FROM [facility]. HER BP IS SYSOTLICALLY AND DIASTOLICALLY LOW IN ADDITION ELVATED BUN/CR RATIO. SHE FOLLOWS SIMPLE COMMANDS IN [place]IZ[place] OF [place] AND MOVES ALL EXTREMITIES. RESPONDS AND LOCALIZES TO NOXIOUS STIMULUS. NO HEADACHES. CURRENTLY GETTING DIALYSIS.. ROS: 14 POINT REVIEW OF SYMPTOMS IS NEGATIVE PER HPI. ALLERGIES: NONE SOCIAL HISTORY: NO ILLICIT DRUG USE, SMOKING, OR ETOH USE. FAMILY: NON CONTRIBUTORY. MEDICATIONS: REVIEWED BY NURSE'S RECONCILIATION SHEET. PAST MEDICAL HISTORY: HTN, CHF, RENAL INSUFFICIENCY, ARTHRITIS PHYSICAL EXAM: VITAL SIGNS: REVIEWED BY THE CHART GENERAL EXAM: PATIENT SEEN IN BED, IN NO ACUTE DISTRESS HEENT: PERRLA, EOMI, NECK SUPPLE, NO JVD, NO ADENOPATHY CVS: S1, S2, RRR, NO MURMURS NOTED LUNGS: CLEAR TO AUSCULTATION, NO ADVENTITIOUS SOUNDS ABDOMEN: SOFT AND NONTENDER EXTREMITIES: NO CLUBBING OR CYANOSIS. PP 2+ B/L NEURO: PT IS DROWSY FOLLOWS SIMPLE COMMANDS, POOR ATTENTION SPAN AND SLOW THOUGHT PROCESS. SPEECH IS FLUENT WITHOUT ERRORS, CN II-XII INTACT, MOTOR EXAM: NORMAL TONE, , MOVES ALL EXTREMITIES EQUALLY, NO PRONATOR DRIFT SEEN. SENSORY EXAM: WITHDRAWS AND LOCALIZES TO PAINFUL STIMULUS. DEEP TENDON REFLEXES: 2+ THROUGHOUT. COORDINATION: FINGER TO NOSE IS INTACT. GAIT: DEFERRED LABS: REVIEWED BY THE CHART. ASSESSMENT AND PLAN: THIS IS A 80 YEAR OLD WOMAN WITH HISTORY OF HTN, ARTHRITIS, CHF WAS ADMITTED FOR ABDOMINAL PAIN, LETHARGY, CONFUSION AND FOUND TO HAVE LOW PLATELETS, LOW EJECTION FRACTION WAS DIAGNOSED TTP AND UNDERWENT PLASMAPHORESIS, AND UNDERWENT DIALYSIS FOR RENAL INSUFFICIENCY CONSULTED FOR CONFUSION. SHE CAME TO HOSPITAL FOR LEAKING BLUE GEL FROM [facility]. SHE FOLLOWS SIMPLE COMMANDS IN [place]IZ[place] OF [place] AND MOVES ALL EXTREMITIES. RESPONDS AND LOCALIZES TO NOXIOUS STIMULUS. NO HEADACHES. SHE IS BECOMING MORE CLEAR IN MENTATION COMPARED TO INITIAL ADMISSION. IMPRESSION: CONFUSION IS MORE OF A METABOLIC ENCEPHALOPATHY SUPERIMPOSED UNDERLYING TTP AND CHF AND CEREBRAL HYPOPERFUSION. . 1. ASA 81 MG FOR STROKE PREVENTION, THIAMINE 100MG IV Q12. 2.NEEDS BETTER SLEEP HYGIENE. 3. MONITOR ELECTROLYTES AND CORRECT ACCORDINGLY. 4. PT EVALUATION. 5. F/U WITH HEMATOLOGY AND CARDIOLOGY. 6. KEP SBP ABOVE 120 MM HG SYSTOLIC. 7/ F/U WITH NEPHRO IN REGARDS TO HD. THANK YOU. Jovanni MAY MD Past Patient History - Past Medical History & Family History Past Medical History?: Yes - Past Social History Smoking Status: Never Smoked - CARDIAC Hx Hypertension: Yes Hx Peripheral Edema: Yes - PULMONARY Hx Respiratory Disorders: No - NEUROLOGICAL Hx Neurological Disorder: Yes Hx Dementia: Yes - HEENT Hx HEENT Problems: Yes - RENAL Date of Last Dialysis Treatment: 08/14/16 - ENDOCRINE/METABOLIC Hx Endocrine Disorders: Yes (enlarged thyroid) Hx Diabetes Mellitus Type 2: Yes - HEMATOLOGICAL/ONCOLOGICAL Hx Anemia: Yes - INTEGUMENTARY Hx Dermatological Problems: Yes (generalized pruritus) - MUSCULOSKELETAL/RHEUMATOLOGICAL Hx Falls: No - GASTROINTESTINAL Hx Gastrointestinal Disorders: No - GENITOURINARY/GYNECOLOGICAL Hx Genitourinary Disorders: No - PSYCHIATRIC Hx Substance Use: No - SURGICAL HISTORY Hx Surgeries: Yes Other/Comment: 1993 THYROID SX - ANESTHESIA Hx Anesthesia: Yes Hx Anesthesia Reactions: No Hx Malignant Hyperthermia: No Meds Allergies/Adverse Reactions: Allergies Allergy/AdvReac Type Severity Reaction Status Date / Time No Known Allergies Allergy Verified 08/16/16 01:13 - Medications Medications: Current Medications Acetaminophen (Tylenol 325mg Tab) 650 mg PO Q6 PRN PRN Reason: Fever >100.4 F Artificial Tears (Artificial Tears) 0 ml OU QID [facility] Last Admin: 08/16/16 14:00 Dose: 1 drop Home Med (Colchicine [Colchicine]) 0.6 mg PO QWK [facility] Latanoprost (Xalatan Opht) 0 ml OU HS [facility] Lorazepam (Ativan) 1 mg IVP ONCE ONE Stop: 08/16/16 14:46 Megestrol Acetate (Megace) 40 mg PO DAILY [facility] Last Admin: 08/16/16 09:34 Dose: 40 mg Methotrexate (Methotrexate) 1 mg PO QWK [facility] Nifedipine (Procardia Xl) 30 mg PO DAILY [facility] Paricalcitol (Zemplar) 1 mcg IV TTS [facility] Stop: 08/30/16 10:01 Saliva Substitute (First Magic Mouthwash) 5 ml PO QID [facility] Last Admin: 08/16/16 14:01 Dose: 5 ml Valacyclovir HCl (Valtrex) 500 mg PO DAILY [facility] Last Admin: 08/16/16 09:34 Dose: 500 mg Results - Vital Signs Recent Vital Signs: Last Vital Signs Temp 98.3 F 08/16/16 12:00 Pulse 74 08/16/16 12:00 Resp 18 08/16/16 12:00 BP 91/39 L 08/16/16 12:00 Pulse Ox 95 08/16/16 12:00 - Labs Result Diagrams: 08/16/16 00:33 08/16/16 00:33 Labs: Laboratory Results - last 24 hr 08/16/16 08:08 Total Creatine Kinase 125 CK-MB (Mass) 8.33 H Troponin I, Quant 0.2380 H*
--- NOTE | 2016-08-16 15:59 | PCM.PSYCH ---
Initial Psychiatric Evaluation - Initial Psychiatric Evaluation Chief Complaint (in patient's own words): None History of Present Illness and Precipitating Events: The pt is seen, chart reviewed, case discussed. Consultation was requested for her confusion. She is an 80-year old LF, currently mute, heavily sedated due to agitation and compromising her lines. She couldn't communicate well b/c of her sedation. She is observed to be confused and restless. Nurses report the same. No past psych hx Medical hx as noted in chart family psych hx is unknown Current Medications: Active Medications Generic Name Dose Route Start Last Admin Trade Name Freq PRN Reason Stop Dose Admin Acetaminophen 650 mg 08/16/16 03:42 Tylenol 325mg Tab PO Q6 PRN Fever >100.4 F Artificial Tears 0 ml 08/16/16 14:00 08/16/16 14:00 Artificial Tears OU 1 drop QID [facility]ESSI Administration Latanoprost 0 ml 08/16/16 22:00 Xalatan Opht OU HS [facility] Megestrol Acetate 40 mg 08/16/16 10:00 08/16/16 09:34 Megace PO 40 mg DAILY [facility] Administration Methotrexate 2.5 mg 08/20/16 10:00 Methotrexate PO QWK [facility] Nifedipine 30 mg 08/17/16 10:00 Procardia Xl PO DAILY JESSI Paricalcitol 1 mcg 08/19/16 10:00 Zemplar IV 08/30/16 10:01 TTS JESSI Saliva Substitute 5 ml 08/16/16 10:00 08/16/16 14:01 First Magic Mouthwash PO 5 ml QID JESSI Administration Valacyclovir HCl 500 mg 08/16/16 10:00 08/16/16 09:34 Valtrex PO 500 mg DAILY JESSI Administration Past Psychiatric History - Past Psychiatric History Previous Treatment History: None Pertinent Medical Hx (Current Medical&Sleep Prob, Allergies): Allergies Allergy/AdvReac Type Severity Reaction Status Date / Time No Known Allergies Allergy Verified 08/16/16 01:13 Acetaminophen [Tylenol 325mg tab] 650 mg PO Q6 PRN #0 tab 10/29/15 Carboxymethylcellulose Sodium [Thera Tears] 1 drop OU QID 07/20/16 Colchicine 0.6 mg PO QWK 07/20/16 Latanoprost 0.005% Opht [Xalatan Opht] 1 drop OU DAILY 07/20/16 Methotrexate 1 tab PO QWK 07/20/16 NIFEdipine [Procardia] 30 mg PO DAILY 07/20/16 Mag&Al/Simet/Diphen/Lido [First Magic Mouthwash] 5 ml PO QID kit 08/13/16 Megestrol [Megace] 40 mg PO DAILY tab 08/13/16 valACYclovir [Valtrex] 500 mg PO DAILY tab 08/13/16 Review of Systems - Neurological Neurological: Confusion - Psychiatric Psychiatric: Confusion Mental Status Examination - Personal Presentation Personal Presentation: Looks stated age - Affect Affect: Constricted - Motor Activity Motor Activity: Psychomotor Agitation - Reliability in Providing Information Reliability in Providing Information: Poor, due to alteration in thoughts, Poor , due to altered mood - Speech Speech: Disorganized - Mood Mood: Other - Formal Thought Process Formal Thought Process: Loosening of associations - Cognitive Functions Memory: Recent impaired, as evidence by: Inability to recall events of the day, Remote intact, as evidenced by: Ability to recall historical events - Risk Risk: Diminished functioning - Strength & Assets Inventory Strength & Assets Inventory: Family support DSM 5 DX - DSM 5 DSM 5 Diagnosis: Delirium due to general medical condition(s) - Recommended/Plan of Treatment Treatment Recommendations and Plan of Treatment: Continue treating underlying conditions Refrain from using benzos as they may worsen confusion in delirium Haldol 0.5 or 1 mg prn agitation - watch for QTc prolongation Supportive measures Sleep hygiene Collateral info from family 31 min
[2016-08-16] MEDS ORDERED: DiphenhydrAMINE 50 mg/ml Inj IVP ONE (17:30)
[2016-08-16] MEDS: Paricalcitol 2 mcg/ml Inj IV SCH (18:25)
[2016-08-16] MEDS: Latanoprost 2.5 ml Opht Soln OU SCH (21:32)
--- NOTE | 2016-08-17 06:52 | CP.PCM.CON ---
History of Present Illness - History of Present Illness History of Present Illness: 80 y/o female came in to er after chest with blue gel discharged called for evaluation Review of Systems - Review of Systems Systems not reviewed;Unavailable: Dementia - Constitutional Constitutional: Weakness - EENT Eyes: absent: Change in Vision Ears: absent: Ear Discharge - Cardiovascular Cardiovascular: Leg Edema. absent: Chest Pain - Respiratory Respiratory: Dyspnea - Gastrointestinal Gastrointestinal: absent: Diarrhea - Genitourinary Genitourinary: absent: Dysuria - Musculoskeletal Musculoskeletal: Back Pain - Integumentary Integumentary: absent: Change in Hair - Neurological Neurological: absent: Abnormal Movements - Endocrine Endocrine: absent: Fatigue Past Patient History - Past Medical History & Family History Past Medical History?: Yes - Past Social History Smoking Status: Never Smoked - CARDIAC Hx Hypertension: Yes Hx Peripheral Edema: Yes - PULMONARY Hx Respiratory Disorders: No - NEUROLOGICAL Hx Neurological Disorder: Yes Hx Dementia: Yes - HEENT Hx HEENT Problems: Yes - RENAL Date of Last Dialysis Treatment: 08/14/16 - ENDOCRINE/METABOLIC Hx Endocrine Disorders: Yes (enlarged thyroid) Hx Diabetes Mellitus Type 2: Yes - HEMATOLOGICAL/ONCOLOGICAL Hx Anemia: Yes - INTEGUMENTARY Hx Dermatological Problems: Yes (generalized pruritus) - MUSCULOSKELETAL/RHEUMATOLOGICAL Hx Falls: No - GASTROINTESTINAL Hx Gastrointestinal Disorders: No - GENITOURINARY/GYNECOLOGICAL Hx Genitourinary Disorders: No - PSYCHIATRIC Hx Substance Use: No - SURGICAL HISTORY Hx Surgeries: Yes Other/Comment: 1993 THYROID SX - ANESTHESIA Hx Anesthesia: Yes Hx Anesthesia Reactions: No Hx Malignant Hyperthermia: No Meds Allergies/Adverse Reactions: Allergies Allergy/AdvReac Type Severity Reaction Status Date / Time No Known Allergies Allergy Verified 08/16/16 01:13 - Medications Medications: Current Medications Acetaminophen (Tylenol 325mg Tab) 650 mg PO Q6 PRN PRN Reason: Fever >100.4 F Artificial Tears (Artificial Tears) 0 ml OU QID [facility] Last Admin: 08/16/16 21:32 Dose: 1 drop Latanoprost (Xalatan Opht) 0 ml OU HS [facility] Last Admin: 08/16/16 21:32 Dose: 2.5 ml Megestrol Acetate (Megace) 40 mg PO DAILY [facility] Last Admin: 08/16/16 09:34 Dose: 40 mg Methotrexate (Methotrexate) 2.5 mg PO QWK [facility] Nifedipine (Procardia Xl) 30 mg PO DAILY [facility] Paricalcitol (Zemplar) 1 mcg IV TTS [facility] Stop: 08/28/16 10:01 Last Admin: 08/16/16 18:25 Dose: 1 mcg Saliva Substitute (First Magic Mouthwash) 5 ml PO QID [facility] Last Admin: 08/16/16 21:32 Dose: 5 ml Valacyclovir HCl (Valtrex) 500 mg PO DAILY [facility] Last Admin: 08/16/16 09:34 Dose: 500 mg Physical Exam - Constitutional Appears: Agitated - Head Exam Head Exam: ATRAUMATIC - Eye Exam Eye Exam: Normal appearance - ENT Exam ENT Exam: Mucous Membranes Moist - Respiratory Exam Respiratory Exam: Rhonchi - Cardiovascular Exam Cardiovascular Exam: REGULAR RHYTHM - GI/Abdominal Exam GI & Abdominal Exam: Soft - Exam External exam: Swelling - Extremities Exam Extremities exam: Positive for: normal inspection, pedal edema - Neurological Exam Neurological exam: Alert - Psychiatric Exam Psychiatric exam: Agitated Results - Vital Signs Recent Vital Signs: Last Vital Signs Temp 97.2 F L 08/17/16 06:00 Pulse 83 08/17/16 06:00 Resp 24 08/17/16 06:00 BP 126/66 08/17/16 06:00 Pulse Ox 93 L 08/17/16 06:00 - Labs Result Diagrams: 10/10/16 07:58 10/09/16 10:22 Labs: Laboratory Results - last 24 hr 08/16/16 08/16/16 08:08 16:15 Total Creatine Kinase 125 100 CK-MB (Mass) 8.33 H 5.92 H Troponin I, Quant 0.2380 H* 0.2090 H* Assessment & Plan (1) Cardiac dysrhythmia Assessment and Plan: will call company to [employer] [facility] family will conider [employer]judith again now pt doing worse continue chf tx Status: Acute (2) CHF (congestive heart failure) Status: Acute
[2016-08-17] MEDS: Aritificial Tears (15ml) OU SCH ×4 (09:24→21:49)
[2016-08-17] MEDS: NIFEdipine 30 mg ER Tab PO SCH (09:24)
[2016-08-17] MEDS: Mag&Al/Simet/Diphen/Lido 237 ML KIT PO SCH ×4 (09:24→21:49)
--- NOTE | 2016-08-17 19:25 | CP.PCM.PN ---
Subjective - Date & Time of Evaluation Date of Evaluation: 08/17/16 Time of Evaluation: 19:25 - Subjective Subjective: pt seen and examined by me, pt is 80 yo Elderly HF with pmh/o htn, arthritis, OA, poor vision, ? dengue , thrombocytopeniua, TTP, s/p FFP transfusion, s/p Plasmapheresis and and improvement of plateles to >150 was discharged to [facility] on . 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 pt is not in acute distress. renal cnsult is requested for continuation of hemodialysis. pt family claims , she started eating little bit Objective - Vital Signs/Intake and Output Vital Signs (last 24 hours): Temp Pulse Resp BP Pulse Ox 98.3 F 94 H 21 101/56 L 94 L 08/17/16 16:00 08/17/16 18:00 08/17/16 16:00 08/17/16 16:00 08/17/16 16:00 Intake and Output: 08/17/16 08/18/16 18:59 06:59 Intake Total 240 Balance 240 - Medications Medications: Current Medications Acetaminophen (Tylenol 325mg Tab) 650 mg PO Q6 PRN PRN Reason: Fever >100.4 F Artificial Tears (Artificial Tears) 0 ml OU QID [facility] Last Admin: 08/17/16 17:20 Dose: 1 drop Latanoprost (Xalatan Opht) 0 ml OU HS [facility] Last Admin: 08/16/16 21:32 Dose: 2.5 ml Megestrol Acetate (Megace) 40 mg PO DAILY [facility] Last Admin: 08/17/16 09:24 Dose: 40 mg Methotrexate (Methotrexate) 2.5 mg PO QWK [facility] Nifedipine (Procardia Xl) 30 mg PO DAILY [facility] Last Admin: 08/17/16 09:24 Dose: 30 mg Paricalcitol (Zemplar) 1 mcg IV TTS [facility] Stop: 08/28/16 10:01 Last Admin: 08/16/16 18:25 Dose: 1 mcg Saliva Substitute (First Magic Mouthwash) 5 ml PO QID [facility] Last Admin: 08/17/16 17:20 Dose: 5 ml Valacyclovir HCl (Valtrex) 500 mg PO DAILY [facility] Last Admin: 08/17/16 09:24 Dose: 500 mg - Constitutional Appears: Non-toxic, No Acute Distress - Head Exam Head Exam: ATRAUMATIC, NORMAL INSPECTION, NORMOCEPHALIC - Eye Exam Eye Exam: EOMI, Normal appearance Pupil Exam: PERRL - ENT Exam ENT Exam: Mucous Membranes Moist - Neck Exam Neck Exam: Full ROM, Normal Inspection - Respiratory Exam Respiratory Exam: Clear to Ausculation Bilateral, NORMAL BREATHING PATTERN - Cardiovascular Exam Cardiovascular Exam: REGULAR RHYTHM, +S1, +S2 - GI/Abdominal Exam GI & Abdominal Exam: Soft, Normal Bowel Sounds - Rectal Exam Rectal Exam: Deferred - Extremities Exam Additional comments: no cyanosis, no clubbing, no edema of legs - Neurological Exam Additional comments: confused, following simple commands some time - Skin Skin Exam: Normal Color, Warm Assessment and Plan - Assessment and Plan (Free Text) Plan: 80 yo hf with htn, arthritis, cardiomyopathy, chf, thrombocytopenia / TTP, confusion, 1. renal failure, Anju on ckd, 2. htn 3. Cardiomyopathy 4. thrombocytopenia c/w hd 3x aweek tts f/u with neurology, consider hematology consult for thrombocytopenia follow up with psych
--- NOTE | 2016-08-17 21:05 | CP.PCM.PN ---
Subjective - Date & Time of Evaluation Date of Evaluation: 08/17/16 Time of Evaluation: 14:00 - Subjective Subjective: clinically same Objective - Vital Signs/Intake and Output Vital Signs (last 24 hours): Temp Pulse Resp BP Pulse Ox 97.9 F 85 21 110/69 94 L 08/17/16 20:00 08/17/16 20:00 08/17/16 20:00 08/17/16 20:00 08/17/16 20:00 Intake and Output: 08/17/16 08/18/16 18:59 06:59 Intake Total 240 Balance 240 - Medications Medications: Current Medications Acetaminophen (Tylenol 325mg Tab) 650 mg PO Q6 PRN PRN Reason: Fever >100.4 F Artificial Tears (Artificial Tears) 0 ml OU QID [facility] Last Admin: 08/17/16 17:20 Dose: 1 drop Latanoprost (Xalatan Opht) 0 ml OU HS [facility] Last Admin: 08/16/16 21:32 Dose: 2.5 ml Megestrol Acetate (Megace) 40 mg PO DAILY [facility] Last Admin: 08/17/16 09:24 Dose: 40 mg Methotrexate (Methotrexate) 2.5 mg PO QWK [facility] Nifedipine (Procardia Xl) 30 mg PO DAILY [facility] Last Admin: 08/17/16 09:24 Dose: 30 mg Paricalcitol (Zemplar) 1 mcg IV TTS [facility] Stop: 08/28/16 10:01 Last Admin: 08/16/16 18:25 Dose: 1 mcg Saliva Substitute (First Magic Mouthwash) 5 ml PO QID [facility] Last Admin: 08/17/16 17:20 Dose: 5 ml Valacyclovir HCl (Valtrex) 500 mg PO DAILY [facility] Last Admin: 08/17/16 09:24 Dose: 500 mg - Constitutional Appears: Well - Head Exam Head Exam: ATRAUMATIC, NORMAL INSPECTION, NORMOCEPHALIC - Eye Exam Eye Exam: EOMI, Normal appearance, PERRL Pupil Exam: NORMAL ACCOMODATION, PERRL - ENT Exam ENT Exam: Mucous Membranes Moist, Normal Exam - Neck Exam Neck Exam: Full ROM, Normal Inspection. absent: Lymphadenopathy - Respiratory Exam Respiratory Exam: Decreased Breath Sounds - Cardiovascular Exam Cardiovascular Exam: REGULAR RHYTHM, +S1, +S2 - GI/Abdominal Exam GI & Abdominal Exam: Soft, Diminished Bowel Sounds - Rectal Exam Rectal Exam: Deferred Assessment and Plan (1) Cardiac dysrhythmia Status: Acute (2) ESRD (end stage renal disease) on dialysis Status: Acute (3) Pulmonary edema Status: Acute (4) MARCO (acute kidney injury) Status: Acute (5) Acute respiratory failure requiring reintubation Status: Acute (6) Arthritis Status: Acute (7) CHF (congestive heart failure) Status: Acute (8) Dehydration Status: Acute (9) Dehydration Status: Acute (10) Diverticulosis Status: Acute (11) Elevated CEA Status: Acute (12) Hypertension Status: Acute (13) Inguinal lymphadenopathy Status: Acute (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 Continue as ordered Wound care
[2016-08-17] MEDS: Latanoprost 2.5 ml Opht Soln OU SCH (21:49)
--- NOTE | 2016-08-18 10:25 | CP.PCM.PN ---
<Sarabjit Donohueima - Last Filed: 08/18/16 18:19> Subjective - Date & Time of Evaluation Date of Evaluation: 08/18/16 Time of Evaluation: 10:00 - Subjective Subjective: Cardiology progress note for Dr. Jules Patient seen and examined. Son was at bedside. Patient was resting comfortably and had no acute events overnight as per nursing. Patient would not open her eyes to speak to me or be examined but son said she was communicating with him earlier this AM. ROS unobtainable. Objective - Vital Signs/Intake and Output Vital Signs (last 24 hours): Temp Pulse Resp BP Pulse Ox 98 F 104 H 18 133/74 94 L 08/18/16 04:00 08/18/16 04:00 08/18/16 04:00 08/18/16 04:00 08/18/16 04:00 - Medications Medications: Current Medications Acetaminophen (Tylenol 325mg Tab) 650 mg PO Q6 PRN PRN Reason: Fever >100.4 F Artificial Tears (Artificial Tears) 0 ml OU QID [facility] Last Admin: 08/17/16 21:49 Dose: 1 drop Latanoprost (Xalatan Opht) 0 ml OU HS [facility] Last Admin: 08/17/16 21:49 Dose: 2.5 ml Megestrol Acetate (Megace) 40 mg PO DAILY [facility] Last Admin: 08/17/16 09:24 Dose: 40 mg Methotrexate (Methotrexate) 2.5 mg PO QWK [facility] Nifedipine (Procardia Xl) 30 mg PO DAILY [facility] Last Admin: 08/17/16 09:24 Dose: 30 mg Paricalcitol (Zemplar) 1 mcg IV TTS [facility] Stop: 08/28/16 10:01 Last Admin: 08/16/16 18:25 Dose: 1 mcg Saliva Substitute (First Magic Mouthwash) 5 ml PO QID [facility] Last Admin: 08/17/16 21:49 Dose: 5 ml Valacyclovir HCl (Valtrex) 500 mg PO DAILY [facility] Last Admin: 08/17/16 09:24 Dose: 500 mg - Constitutional Appears: Unkempt, Chronically Ill - Head Exam Head Exam: NORMOCEPHALIC - Eye Exam Eye Exam: Normal appearance. absent: Conjunctival injection, Scleral icterus - ENT Exam ENT Exam: Mucous Membranes Dry - Respiratory Exam Respiratory Exam: Clear to Ausculation Bilateral, NORMAL BREATHING PATTERN. absent: Accessory Muscle Use, Rales, Rhonchi, Wheezes, Respiratory Distress - Cardiovascular Exam Cardiovascular Exam: REGULAR RHYTHM, RRR, +S1, +S2 - GI/Abdominal Exam GI & Abdominal Exam: Soft, Normal Bowel Sounds - Extremities Exam Extremities Exam: Normal Capillary Refill, Normal Inspection. absent: Pedal Edema - Neurological Exam Neurological Exam: Alert, Awake - Psychiatric Exam Psychiatric exam: Flat Affect - Skin Skin Exam: Dry, Intact Assessment and Plan - Assessment and Plan (Free Text) Assessment: 80 y/o [place] female with PMHx of CHF with EF 10% with life vest, HTN, arthritis, and cataracts who presented to ER with confusion. Cardiology was consulted for life vest inspection Plan: -Patient has hx of CHF -Echo 07/24 : LV systolic function is severely impaired. EF 15-20%. Hypertensive heart disease. Diastolic dysfunction; moderate aortic regurgitation; mitral regurgitation is mild; mild tricuspid regurgitation; mild pulmonary hypertension ; mild pulmonic valvular regurgitation. -EKG 08/16: NSR HR @ 79bpm; L anterior fascicular block; moderate voltage criteria for LVH may be normal variant; ST and T wave abnormality, consider lateral ischemia -Procardia 30mg po daily -Life vest was interrogated and is functioning well Cardiology will sign off at this time Please continue current management Thank you for the consult; please reconsult if necessary Case discussed with Dr. Jorge A Donohue PGY2 <Geo Jules - Last Filed: 10/13/16 23:12> Objective - Vital Signs/Intake and Output Vital Signs (last 24 hours): Temp Pulse Resp BP Pulse Ox 99.1 F 98 H 20 111/65 98 10/13/16 15:00 10/13/16 15:00 10/13/16 15:00 10/13/16 15:00 10/13/16 15:00 Intake and Output: 10/13/16 10/14/16 18:59 06:59 Intake Total 600 250 Output Total 2 Balance 600 248 - Medications Medications: Current Medications Benzocaine (Anbesol) 1 ml MM TID [facility] Last Admin: 10/13/16 17:33 Dose: 1 ml Epoetin Herve (Procrit) 10,000 unit SC TTS [facility] Last Admin: 10/11/16 10:41 Dose: 10,000 unit Latanoprost (Xalatan Opht) 0 ml OU HS [facility] Last Admin: 10/13/16 21:10 Dose: 2.5 ml Megestrol Acetate (Megace) 40 mg PO DAILY [facility] Last Admin: 10/13/16 10:03 Dose: 40 mg Paricalcitol (Zemplar) 1 mcg IV TTS [facility] Last Admin: 10/11/16 10:42 Dose: 1 mcg Saliva Substitute (First Magic Mouthwash) 5 ml PO QID PRN PRN Reason: sore mouth Last Admin: 10/01/16 20:34 Dose: 5 ml Vitamin B Complex/Vit C/Folic Acid (Nephro-Andrea) 1 tab PO 0800 [facility] Last Admin: 10/13/16 10:02 Dose: 1 tab - Labs Labs: 10/10/16 07:58 10/09/16 10:22 PT 11.9 SECONDS (9.7-12.2) 09/20/16 06:23 INR 1.1 09/20/16 06:23 APTT 28 SECONDS (21-34) 09/20/16 06:23 Attending/Attestation - Attestation I have personally seen and examined this patient.: Yes I have fully participated in the care of the patient.: Yes I have reviewed all pertinent clinical information, including history, physical exam and plan: Yes Notes (Text): 10/13/16 23:12 continue life vestand chf med
[2016-08-18] MEDS: NIFEdipine 30 mg ER Tab PO SCH (10:27)
[2016-08-18] MEDS: Mag&Al/Simet/Diphen/Lido 237 ML KIT PO SCH ×4 (10:36→22:15)
[2016-08-18] MEDS: Aritificial Tears (15ml) OU SCH ×4 (10:36→22:15)
--- NOTE | 2016-08-18 13:39 | CARD ---
APPROVED REPORT EKG Measurement Heart [id number] <Conclusion> Normal sinus rhythm Possible Left atrial enlargement Left anterior fascicular block Left ventricular hypertrophy with repolarization abnormality Abnormal ECG
--- NOTE | 2016-08-18 13:39 | CARD ---
APPROVED REPORT EKG Measurement Heart [id number] <Conclusion> Normal sinus rhythm Left anterior fascicular block Moderate voltage criteria for LVH, may be normal variant ST & T wave abnormality, consider lateral ischemia Abnormal ECG
--- NOTE | 2016-08-18 14:58 | CP.PCM.CON ---
History of Present Illness - History of Present Illness History of Present Illness: Palliative consult Requested by Tim Ureña MD Reason: Goals of care discussion Patient is a 80 yo female admitted from [facility] with abdominal pain, lethargy, confusion . Patient was sent to [facility] after recent hospitalization. Upon this admission, patient was found to have thrombocytopenia, underwent plasmophoresis and begun HD for elevated kidney functions. BUN 50, Communications Manager 8.1. In recent past patient was in respiratory distress and required assistance from MV. As per grand daughter. patient was functioning at her norm until July 19. patient was able to cook and do light house work. Patient returned from [facility] in June/2016, where she spent 5 moths with her two other daughters. PMH: anemia, arthritis, HTN, periferal edema, ESKD, recent vision loss as per granddaughter Soc. hx: single, lives with the family at home Fam Hx: both parentis , unknown cause Review of Systems - Review of Systems All systems: reviewed and no additional remarkable complaints except - Constitutional Constitutional: Lethargy, Weakness - Breasts Breasts: absent: As Per HPI, Change in Shape, Mass, Pain, Nipple Discharge, Nipple Inversion, Skin Changes, Swelling, Other - Cardiovascular Cardiovascular: absent: As Per HPI, Acrocyanosis, Chest Pain, Chest Pain at Rest , Chest Pain with Activity, Claudication, Diaphoresis, Dyspnea, Dyspnea on Exertion, Edema, Irregular Heart Rhythm, Pain Radiating to Arm/Neck/Jaw, Leg Edema, Leg Ulcers, Lightheadedness, Orthopnea, Palpitations, Paroxysmal Nocturnal Dyspnea, Pedal Edema, Radiating Pain, Rapid Heart Rate, Slow Heart Rate, Syncope, Other - Respiratory Respiratory: absent: As Per HPI, Cough, Dyspnea, Hemoptysis, Dyspnea on Exertion , Wheezing, Snoring, Stridor, Pain on Inspiration, Chest Congestion, Excessive Mucous Production, Change in Mucous Color, Pain with Coughing, Other - Gastrointestinal Gastrointestinal: absent: As Per HPI, Abdominal Pain, Belching, Bloating, Change in Bowel Habits, Change in Stool Character, Coffee Ground Emesis, Constipation, Cramping, Diarrhea, Dyspepsia, Dysphagia, Early Satiety, Excessive Flatus, Fecal Incontinence, Heartburn, Hematemesis, Hematochezia, Loose Stools, Melena, Nausea, Odynophagia, Temesmus, Vomiting, Other - Genitourinary Genitourinary: absent: As Per HPI, Change in Urinary Stream, Difficulty Urinating, Dysuria, Flank Pain, Hematuria, Pyuria, Nocturia, Urinary Incontinence, Urinary Frequency, Urinary Hesitance, Urinary Urgency, Voiding Freq/Small Amts, Freq UTI, Hx Renal/Bladder Calculi, Hx /Renal Surgery, Bladder Distension, Other - Reproductive: Female Reproductive:Female: Post Menopausal - Menstruation Menstruation: Post Menopausal - Musculoskeletal Musculoskeletal: Limited Range of Motion - Integumentary Integumentary: absent: As Per HPI, Acne, Alopecia, Bleeding Lesions, Change in Hair, Change in Nails, Change in Pigmentation, Changing Lesions, Dry Skin, Erythema, Furuncle, Hirsutism, Lesions, New Lesions, Non-Healing Lesions, Photosensitivity, Pruritus, Rash, Skin Pain, Skin Ulcer, Sores, Striae, Swelling , Unusual Bruising, Wounds, Jaundice, Other - Neurological Neurological: Behavioral Changes, Confusion, Memory Loss, Weakness - Psychiatric Psychiatric: Behavioral Changes - Endocrine Endocrine: absent: As Per HPI, Change in Body Appearance, Change in Libido, Cold Intolorance, Deepening of Voice, Excessive Sweating, Fatigue, Flushing, Heat Intolorance, Increase in Ring/Shoe/Hat Size, Palpitations, Polydipsia, Polyphagia, Polyuria, Other - Hematologic/Lymphatic Hematologic: Easy Bleeding Past Patient History - Past Medical History & Family History Past Medical History?: Yes - Past Social History Smoking Status: Never Smoked - CARDIAC Hx Hypertension: Yes Hx Peripheral Edema: Yes - PULMONARY Hx Respiratory Disorders: No - NEUROLOGICAL Hx Neurological Disorder: Yes Hx Dementia: Yes - HEENT Hx HEENT Problems: Yes - RENAL Date of Last Dialysis Treatment: 08/14/16 - ENDOCRINE/METABOLIC Hx Endocrine Disorders: Yes (enlarged thyroid) Hx Diabetes Mellitus Type 2: Yes - HEMATOLOGICAL/ONCOLOGICAL Hx Anemia: Yes - INTEGUMENTARY Hx Dermatological Problems: Yes (generalized pruritus) - MUSCULOSKELETAL/RHEUMATOLOGICAL Hx Falls: No - GASTROINTESTINAL Hx Gastrointestinal Disorders: No - GENITOURINARY/GYNECOLOGICAL Hx Genitourinary Disorders: No - PSYCHIATRIC Hx Substance Use: No - SURGICAL HISTORY Hx Surgeries: Yes Other/Comment: 1993 THYROID SX - ANESTHESIA Hx Anesthesia: Yes Hx Anesthesia Reactions: No Hx Malignant Hyperthermia: No Meds Allergies/Adverse Reactions: Allergies Allergy/AdvReac Type Severity Reaction Status Date / Time No Known Allergies Allergy Verified 08/16/16 01:13 - Medications Medications: Current Medications Acetaminophen (Tylenol 325mg Tab) 650 mg PO Q6 PRN PRN Reason: Fever >100.4 F Artificial Tears (Artificial Tears) 0 ml OU QID [facility] Last Admin: 08/18/16 14:34 Dose: 1 drop Latanoprost (Xalatan Opht) 0 ml OU HS [facility] Last Admin: 08/17/16 21:49 Dose: 2.5 ml Megestrol Acetate (Megace) 40 mg PO DAILY [facility] Last Admin: 08/18/16 10:26 Dose: 40 mg Methotrexate (Methotrexate) 2.5 mg PO QWK [facility] Nifedipine (Procardia Xl) 30 mg PO DAILY [facility] Last Admin: 08/18/16 10:27 Dose: 30 mg Paricalcitol (Zemplar) 1 mcg IV TTS [facility] Stop: 08/28/16 10:01 Last Admin: 08/16/16 18:25 Dose: 1 mcg Saliva Substitute (First Magic Mouthwash) 5 ml PO QID [facility] Last Admin: 08/18/16 14:34 Dose: 5 ml Valacyclovir HCl (Valtrex) 500 mg PO DAILY [facility] Last Admin: 08/18/16 10:27 Dose: 500 mg Physical Exam - Constitutional Appears: Chronically Ill - Head Exam Head Exam: ATRAUMATIC, NORMAL INSPECTION, NORMOCEPHALIC - Eye Exam Eye Exam: EOMI, Normal appearance, PERRL Pupil Exam: NORMAL ACCOMODATION, PERRL - ENT Exam ENT Exam: Mucous Membranes Dry, Normal Exam - Neck Exam Neck exam: Positive for: Normal Inspection - Respiratory Exam Respiratory Exam: Decreased Breath Sounds, NORMAL BREATHING PATTERN - Cardiovascular Exam Cardiovascular Exam: Tachycardia, Irregular Rhythm - GI/Abdominal Exam GI & Abdominal Exam: Diminished Bowel Sounds, Normal Bowel Sounds, Soft - Rectal Exam Rectal Exam: Deferred - Extremities Exam Extremities exam: Positive for: normal inspection, pedal edema - Back Exam Back exam: NORMAL INSPECTION - Neurological Exam Neurological exam: Altered, Motor Sensory Deficit - Psychiatric Exam Psychiatric exam: Agitated, Flat Affect - Skin Skin Exam: Pallor Results - Vital Signs Recent Vital Signs: Last Vital Signs Temp 98.0 F 08/18/16 10:44 Pulse 106 H 08/18/16 10:44 Resp 31 H 08/18/16 10:44 BP 123/69 08/18/16 10:44 Pulse Ox 94 L 08/18/16 10:44 - Labs Result Diagrams: 08/16/16 00:33 08/16/16 00:33 Assessment & Plan - Assessment and Plan (Free Text) Assessment: Palliative consult Code status Full Code, there is no advance directive on chart, PPS 10%, ROS obtained from nursing and granddaughter. I reviewed medical records, all diagnostic studies, examined patient in the bed , and discussed goals of care over the phone with the granddaughter Haydee. Patient is with eyes closed, seemed to be in deep sleep. When tried to be awaken , patient becomes agitated, than goes back to sleep. Skin is pale, cool to touch. Patient moves all extremities , movements are without purpose. Breath sounds diminished, NC on O2Sat 94%. BP 113/69, HR 106, RR 31. Symptomatic Tx on board. In phone conversation with patient's granddaughter was stated that patient has lost her vision on last admission and looked unable to swallow. Prior to this admission until July 19 patient was ambulatory and able to do light house work. The frank who is a spoke person for the family states family's common goal for patient's recovery and return home. I reassured her of all appropriate prudent measures being applied toward it. We further we discussed Code status. The granddaughter stated that patient was on MV support once for about a week and if it becomes a case again, she would want all aggressive measures to be applied including intubation. Impression * Patient is lethargic due to sedation for increased agitation * Huge decline in patient's condition noted since July * Family hopes patient will recover and return home * Family is requesting Full Code including the support from MV if needed * Recent loss of vision as per family * Difficulties swallowing Suggestion * Patient will most likely need prolonged hospitalization for management of symptoms * Family needs continues counseling regarding sudden changes in patient's condition * Apply all measures to support life, Full Code * Swallow eval when patient more alert and able to swallow commends
--- NOTE | 2016-08-18 17:13 | CP.PCM.PN ---
Subjective - Date & Time of Evaluation Date of Evaluation: 08/18/16 Time of Evaluation: 14:40 - Subjective Subjective: clinically same Objective - Vital Signs/Intake and Output Vital Signs (last 24 hours): Temp Pulse Resp BP Pulse Ox 98.0 F 95 H 26 H 96/44 L 94 L 08/18/16 14:00 08/18/16 14:00 08/18/16 14:00 08/18/16 14:00 08/18/16 14:00 - Medications Medications: Current Medications Acetaminophen (Tylenol 325mg Tab) 650 mg PO Q6 PRN PRN Reason: Fever >100.4 F Artificial Tears (Artificial Tears) 0 ml OU QID [facility] Last Admin: 08/18/16 14:34 Dose: 1 drop Latanoprost (Xalatan Opht) 0 ml OU HS [facility] Last Admin: 08/17/16 21:49 Dose: 2.5 ml Megestrol Acetate (Megace) 40 mg PO DAILY [facility] Last Admin: 08/18/16 10:26 Dose: 40 mg Methotrexate (Methotrexate) 2.5 mg PO QWK [facility] Nifedipine (Procardia Xl) 30 mg PO DAILY [facility] Last Admin: 08/18/16 10:27 Dose: 30 mg Paricalcitol (Zemplar) 1 mcg IV TTS [facility] Stop: 08/28/16 10:01 Last Admin: 08/16/16 18:25 Dose: 1 mcg Saliva Substitute (First Magic Mouthwash) 5 ml PO QID [facility] Last Admin: 08/18/16 14:34 Dose: 5 ml Valacyclovir HCl (Valtrex) 500 mg PO DAILY [facility] Last Admin: 08/18/16 10:27 Dose: 500 mg - Constitutional Appears: Well - Head Exam Head Exam: ATRAUMATIC, NORMAL INSPECTION, NORMOCEPHALIC - Eye Exam Eye Exam: EOMI, Normal appearance, PERRL Pupil Exam: NORMAL ACCOMODATION, PERRL - ENT Exam ENT Exam: Mucous Membranes Moist, Normal Exam - Neck Exam Neck Exam: Full ROM, Normal Inspection. absent: Lymphadenopathy - Respiratory Exam Respiratory Exam: Decreased Breath Sounds - Cardiovascular Exam Cardiovascular Exam: REGULAR RHYTHM, +S1, +S2 - GI/Abdominal Exam GI & Abdominal Exam: Soft, Diminished Bowel Sounds - Rectal Exam Rectal Exam: Deferred Assessment and Plan (1) Cardiac dysrhythmia Status: Acute (2) ESRD (end stage renal disease) on dialysis Status: Acute (3) Pulmonary edema Status: Acute (4) MARCO (acute kidney injury) Status: Acute (5) Acute respiratory failure requiring reintubation Status: Acute (6) Arthritis Status: Acute (7) CHF (congestive heart failure) Status: Acute (8) Dehydration Status: Acute (9) Dehydration Status: Acute (10) Diverticulosis Status: Acute (11) Elevated CEA Status: Acute (12) Hypertension Status: Acute (13) Inguinal lymphadenopathy Status: Acute (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
--- NOTE | 2016-08-18 20:14 | CP.PCM.PN ---
Subjective - Date & Time of Evaluation Date of Evaluation: 08/18/16 Time of Evaluation: 20:14 - Subjective Subjective: 80yo HF with htn, arthritis, cardiomyopathy, chf, s/p resp. failure, extubation during her last admission, dementia, thromobocytopenia, ?TTP, s/p plasmapheresis , renal failure on hd 3 x a week was admitted with malfunctioning defrillator waist, pt is restiless, confused. pt's grand daughter is at bed side, and concerned about her deteriorating condition Objective - Vital Signs/Intake and Output Vital Signs (last 24 hours): Temp Pulse Resp BP Pulse Ox 98.0 F 88 26 H 96/44 L 94 L 08/18/16 14:00 08/18/16 18:00 08/18/16 14:00 08/18/16 14:00 08/18/16 14:00 - Medications Medications: Current Medications Acetaminophen (Tylenol 325mg Tab) 650 mg PO Q6 PRN PRN Reason: Fever >100.4 F Artificial Tears (Artificial Tears) 0 ml OU QID [facility] Last Admin: 08/18/16 17:58 Dose: Not Given Latanoprost (Xalatan Opht) 0 ml OU HS [facility] Last Admin: 08/17/16 21:49 Dose: 2.5 ml Megestrol Acetate (Megace) 40 mg PO DAILY [facility] Last Admin: 08/18/16 10:26 Dose: 40 mg Methotrexate (Methotrexate) 2.5 mg PO QWK [facility] Nifedipine (Procardia Xl) 30 mg PO DAILY [facility] Last Admin: 08/18/16 10:27 Dose: 30 mg Paricalcitol (Zemplar) 1 mcg IV TTS [facility] Stop: 08/28/16 10:01 Last Admin: 08/16/16 18:25 Dose: 1 mcg Saliva Substitute (First Magic Mouthwash) 5 ml PO QID [facility] Last Admin: 08/18/16 17:57 Dose: Not Given Valacyclovir HCl (Valtrex) 500 mg PO DAILY [facility] Last Admin: 08/18/16 10:27 Dose: 500 mg - Constitutional Appears: No Acute Distress - Head Exam Head Exam: ATRAUMATIC, NORMOCEPHALIC - Eye Exam Eye Exam: Normal appearance, PERRL Pupil Exam: NORMAL ACCOMODATION - ENT Exam ENT Exam: Mucous Membranes Moist - Neck Exam Neck Exam: Full ROM, Normal Inspection - Respiratory Exam Respiratory Exam: Clear to Ausculation Bilateral, NORMAL BREATHING PATTERN - Cardiovascular Exam Cardiovascular Exam: REGULAR RHYTHM, +S1, +S2 - GI/Abdominal Exam GI & Abdominal Exam: Soft, Normal Bowel Sounds - Rectal Exam Rectal Exam: Deferred - Extremities Exam Extremities Exam: Normal Inspection Additional comments: no edema of legs - Neurological Exam Neurological Exam: Altered Additional comments: oriented x1-2 Assessment and Plan - Assessment and Plan (Free Text) Plan: 80 yo hf with htn, arthritis, cardiomyopathy, chf, thrombocytopenia / TTP, confusion, 1. renal failure, Anju on ckd, 2. htn 3. Cardiomyopathy 4. thrombocytopenia c/w hd 3x aweek tts f/u with neurology, consider hematology consult for thrombocytopenia follow up with psych
[2016-08-18] MEDS: Latanoprost 2.5 ml Opht Soln OU SCH (22:15)
[2016-08-19 06:46] LABS: POTASSIUM 3.8 mmol/L (3.6-5.2)
[2016-08-19 06:54] LABS: BASO % 0.5 % (0.0-2.0); EOS # 0.2 K/uL (0.0-0.7); EOS % 5.3 % (0.0-4.0); HEMATOCRIT 37.3 % (34.0-47.0); LYMPH # 0.7 K/uL (1.0-4.3); LYMPH % 17.4 % (20.0-40.0); MEAN CORPUSCULAR HEMOGLOBIN 32.2 pg (27.0-31.0); MEAN CORPUSCULAR HGB CONC 32.2 g/dL (33.0-37.0); MEAN PLATELET VOLUME 9.9 fL (7.2-11.7); MONO # 0.6 K/uL (0.0-0.8); MONO % 14.5 % (0.0-10.0); NRBC % 0.3 % (0.0-2.0); RED CELL DISTRIBUTION WIDTH 19.1 % (11.5-14.5); WHITE BLOOD COUNT 4.2 K/uL (4.8-10.8)
--- NOTE | 2016-08-19 09:40 | CP.PCM.PN ---
Subjective - Date & Time of Evaluation Date of Evaluation: 08/19/16 Time of Evaluation: 09:40 - Subjective Subjective: pt seen and examined by during hd, pt is rest less, confused, poorly functioning perma cath, s/p tpa placement. pt is not in distress. Objective - Vital Signs/Intake and Output Vital Signs (last 24 hours): Temp Pulse Resp BP Pulse Ox 98.3 F 98 H 18 107/54 L 95 08/19/16 07:20 08/19/16 07:20 08/19/16 07:20 08/19/16 07:20 08/19/16 07:20 - Medications Medications: Current Medications Acetaminophen (Tylenol 325mg Tab) 650 mg PO Q6 PRN PRN Reason: Fever >100.4 F Artificial Tears (Artificial Tears) 0 ml OU QID [facility] Last Admin: 08/18/16 22:15 Dose: 1 drop Latanoprost (Xalatan Opht) 0 ml OU HS [facility] Last Admin: 08/18/16 22:15 Dose: 2.5 ml Megestrol Acetate (Megace) 40 mg PO DAILY [facility] Last Admin: 08/18/16 10:26 Dose: 40 mg Methotrexate (Methotrexate) 2.5 mg PO QWK [facility] Nifedipine (Procardia Xl) 30 mg PO DAILY [facility] Last Admin: 08/18/16 10:27 Dose: 30 mg Paricalcitol (Zemplar) 1 mcg IV TTS [facility] Stop: 08/28/16 10:01 Last Admin: 08/16/16 18:25 Dose: 1 mcg Saliva Substitute (First Magic Mouthwash) 5 ml PO QID [facility] Last Admin: 08/18/16 22:15 Dose: 5 ml Valacyclovir HCl (Valtrex) 500 mg PO DAILY [facility] Last Admin: 08/18/16 10:27 Dose: 500 mg - Labs Labs: 08/19/16 06:11 08/19/16 06:11 - Constitutional Appears: Well, No Acute Distress, Confused - Head Exam Head Exam: ATRAUMATIC, NORMAL INSPECTION, NORMOCEPHALIC - Eye Exam Eye Exam: EOMI, Normal appearance Pupil Exam: NORMAL ACCOMODATION - ENT Exam ENT Exam: Mucous Membranes Moist - Neck Exam Neck Exam: Full ROM, Normal Inspection - Respiratory Exam Respiratory Exam: Clear to Ausculation Bilateral, NORMAL BREATHING PATTERN - Cardiovascular Exam Cardiovascular Exam: REGULAR RHYTHM, +S1, +S2 - GI/Abdominal Exam GI & Abdominal Exam: Soft, Normal Bowel Sounds. absent: Guarding, Tenderness - Rectal Exam Rectal Exam: Deferred - Neurological Exam Neurological Exam: Altered, Awake Additional comments: confused, rest less - Skin Skin Exam: Normal Color, Warm Assessment and Plan - Assessment and Plan (Free Text) Plan: 80 yo HF with pmh/o htn, arthritis, renal failure, thrombocytopenia, s/p extubation during herlast admission, cardiomyopathy ?TTP 1. renal failure, MARCO on ckd 2. HTN 3. AMS, etiology is not clera, ? demetia, drugs, seizers c/w hd 3 x a week f/u with neurology hematology consult for low platelets prognosis is very poor
[2016-08-19] MEDS: Mag&Al/Simet/Diphen/Lido 237 ML KIT PO SCH ×5 (10:00→22:12)
[2016-08-19] MEDS: Aritificial Tears (15ml) OU SCH ×4 (10:00→22:12)
[2016-08-19] MEDS ORDERED: Paricalcitol 2 mcg/ml Inj IV SCH (10:00)
[2016-08-19] MEDS: Paricalcitol 2 mcg/ml Inj IV SCH (10:36)
--- NOTE | 2016-08-19 11:42 | CP.PCM.PN ---
Subjective - Date & Time of Evaluation Date of Evaluation: 08/19/16 Time of Evaluation: 12:20 - Subjective Subjective: clinically same Objective - Vital Signs/Intake and Output Vital Signs (last 24 hours): Temp Pulse Resp BP Pulse Ox 98.5 F 105 H 16 124/86 100 08/19/16 09:00 08/19/16 09:00 08/19/16 09:00 08/19/16 11:00 08/19/16 09:00 - Medications Medications: Current Medications Acetaminophen (Tylenol 325mg Tab) 650 mg PO Q6 PRN PRN Reason: Fever >100.4 F Artificial Tears (Artificial Tears) 0 ml OU QID [facility] Last Admin: 08/18/16 22:15 Dose: 1 drop Latanoprost (Xalatan Opht) 0 ml OU HS [facility] Last Admin: 08/18/16 22:15 Dose: 2.5 ml Megestrol Acetate (Megace) 40 mg PO DAILY [facility] Last Admin: 08/18/16 10:26 Dose: 40 mg Methotrexate (Methotrexate) 2.5 mg PO QWK [facility] Nifedipine (Procardia Xl) 30 mg PO DAILY [facility] Last Admin: 08/18/16 10:27 Dose: 30 mg Paricalcitol (Zemplar) 1 mcg IV TTS [facility] Stop: 08/28/16 10:01 Last Admin: 08/19/16 10:36 Dose: 1 mcg Saliva Substitute (First Magic Mouthwash) 5 ml PO QID [facility] Last Admin: 08/18/16 22:15 Dose: 5 ml Valacyclovir HCl (Valtrex) 500 mg PO DAILY [facility] Last Admin: 08/18/16 10:27 Dose: 500 mg - Labs Labs: 08/19/16 06:11 08/19/16 06:11 - Constitutional Appears: Well - Head Exam Head Exam: ATRAUMATIC, NORMAL INSPECTION, NORMOCEPHALIC - Eye Exam Eye Exam: EOMI, Normal appearance, PERRL Pupil Exam: NORMAL ACCOMODATION, PERRL - ENT Exam ENT Exam: Mucous Membranes Moist, Normal Exam - Neck Exam Neck Exam: Full ROM, Normal Inspection. absent: Lymphadenopathy - Respiratory Exam Respiratory Exam: Decreased Breath Sounds - Cardiovascular Exam Cardiovascular Exam: REGULAR RHYTHM, +S1, +S2 - GI/Abdominal Exam GI & Abdominal Exam: Soft, Diminished Bowel Sounds - Rectal Exam Rectal Exam: Deferred Assessment and Plan (1) Cardiac dysrhythmia Status: Acute (2) ESRD (end stage renal disease) on dialysis Status: Acute (3) Pulmonary edema Status: Acute (4) MARCO (acute kidney injury) Status: Acute (5) Acute respiratory failure requiring reintubation Status: Acute (6) Arthritis Status: Acute (7) CHF (congestive heart failure) Status: Acute (8) Dehydration Status: Acute (9) Dehydration Status: Acute (10) Diverticulosis Status: Acute (11) Elevated CEA Status: Acute (12) Hypertension Status: Acute (13) Inguinal lymphadenopathy Status: Acute (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
[2016-08-19] MEDS: NIFEdipine 30 mg ER Tab PO SCH (13:05)
[2016-08-19] MEDS: Latanoprost 2.5 ml Opht Soln OU SCH (22:12)
[2016-08-20 06:40] LABS: BASO % 0.3 % (0.0-2.0); EOS # 0.2 K/uL (0.0-0.7); EOS % 3.3 % (0.0-4.0); HEMATOCRIT 39.3 % (34.0-47.0); LYMPH # 0.9 K/uL (1.0-4.3); LYMPH % 14.7 % (20.0-40.0); MEAN CELL VOLUME 101.8 fL (81.0-99.0); MEAN CORPUSCULAR HEMOGLOBIN 31.9 pg (27.0-31.0); MEAN CORPUSCULAR HGB CONC 31.4 g/dL (33.0-37.0); MEAN PLATELET VOLUME 9.7 fL (7.2-11.7); MONO # 0.7 K/uL (0.0-0.8); MONO % 10.7 % (0.0-10.0); NRBC % 0.5 % (0.0-2.0); RED CELL DISTRIBUTION WIDTH 18.8 % (11.5-14.5); RETIC% 3.4 % (0.5-1.5); WHITE BLOOD COUNT 6.2 K/uL (4.8-10.8)
[2016-08-20 06:46] LABS: POTASSIUM 3.7 mmol/L (3.6-5.2)
[2016-08-20 06:48] LABS: BILIRUBIN,TOTAL 0.9 mg/dL (0.2-1.3)
[2016-08-20 06:49] LABS: ALB/GLOB RATIO 0.8 (1.0-2.1); CALCIUM 7.8 mg/dl (8.6-10.4); TOTAL PROTEIN 6.2 g/dL (6.3-8.3)
--- NOTE | 2016-08-20 09:01 | CP.PCM.PN ---
Subjective - Date & Time of Evaluation Date of Evaluation: 08/19/16 Time of Evaluation: 08:58 - Subjective Subjective: dialysis in progress comfortable lying flat Objective - Vital Signs/Intake and Output Vital Signs (last 24 hours): Temp Pulse Resp BP Pulse Ox 98.7 F 92 H 20 120/65 98 08/19/16 23:00 08/19/16 23:00 08/19/16 23:00 08/19/16 23:00 08/19/16 23:00 Intake and Output: 08/20/16 08/20/16 06:59 18:59 Intake Total 100 Balance 100 - Medications Medications: Current Medications Acetaminophen (Tylenol 325mg Tab) 650 mg PO Q6 PRN PRN Reason: Fever >100.4 F Artificial Tears (Artificial Tears) 0 ml OU QID [facility] Last Admin: 08/19/16 22:12 Dose: 1 drop Latanoprost (Xalatan Opht) 0 ml OU HS [facility] Last Admin: 08/19/16 22:12 Dose: 1 ml Megestrol Acetate (Megace) 40 mg PO DAILY [facility] Last Admin: 08/19/16 13:05 Dose: 40 mg Methotrexate (Methotrexate) 2.5 mg PO QWK [facility] Nifedipine (Procardia Xl) 30 mg PO DAILY [facility] Last Admin: 08/19/16 13:05 Dose: 30 mg Paricalcitol (Zemplar) 1 mcg IV TTS [facility] Stop: 08/28/16 10:01 Last Admin: 08/19/16 10:36 Dose: 1 mcg Saliva Substitute (First Magic Mouthwash) 5 ml PO QID [facility] Last Admin: 08/19/16 22:12 Dose: Not Given Valacyclovir HCl (Valtrex) 500 mg PO DAILY [facility] Last Admin: 08/19/16 13:05 Dose: 500 mg - Labs Labs: 08/20/16 06:08 08/20/16 06:08 PT 11.6 SECONDS (9.7-12.2) 08/20/16 06:08 INR 1.0 08/20/16 06:08 APTT 20 SECONDS (21-34) L 08/20/16 06:08 - Constitutional Appears: Non-toxic - Eye Exam Eye Exam: absent: Scleral icterus - ENT Exam ENT Exam: Mucous Membranes Moist - Neck Exam Neck Exam: Full ROM - Respiratory Exam Respiratory Exam: NORMAL BREATHING PATTERN - Cardiovascular Exam Cardiovascular Exam: REGULAR RHYTHM - GI/Abdominal Exam GI & Abdominal Exam: Soft - Extremities Exam Extremities Exam: absent: Pedal Edema - Neurological Exam Neurological Exam: Altered Assessment and Plan - Assessment and Plan (Free Text) Assessment: DIlated cardiomyopathy Hx of TTP ESRD SENILE DEMENTIA Plan: CONT SUPPORTIVE TREATMENT kayleigh
--- NOTE | 2016-08-20 09:07 | CP.PCM.PN ---
Subjective - Date & Time of Evaluation Date of Evaluation: 08/18/16 Time of Evaluation: 09:05 - Subjective Subjective: Awake, confused demented NAD Objective - Vital Signs/Intake and Output Vital Signs (last 24 hours): Temp Pulse Resp BP Pulse Ox 98.2 F 98 H 18 147/61 98 08/20/16 09:03 08/20/16 09:03 08/20/16 09:03 08/20/16 09:03 08/20/16 09:03 Intake and Output: 08/20/16 08/20/16 06:59 18:59 Intake Total 100 Balance 100 - Medications Medications: Current Medications Acetaminophen (Tylenol 325mg Tab) 650 mg PO Q6 PRN PRN Reason: Fever >100.4 F Artificial Tears (Artificial Tears) 0 ml OU QID [facility] Last Admin: 08/19/16 22:12 Dose: 1 drop Latanoprost (Xalatan Opht) 0 ml OU HS [facility] Last Admin: 08/19/16 22:12 Dose: 1 ml Megestrol Acetate (Megace) 40 mg PO DAILY [facility] Last Admin: 08/19/16 13:05 Dose: 40 mg Methotrexate (Methotrexate) 2.5 mg PO QWK [facility] Nifedipine (Procardia Xl) 30 mg PO DAILY [facility] Last Admin: 08/19/16 13:05 Dose: 30 mg Paricalcitol (Zemplar) 1 mcg IV TTS [facility] Stop: 08/28/16 10:01 Last Admin: 08/19/16 10:36 Dose: 1 mcg Saliva Substitute (First Magic Mouthwash) 5 ml PO QID [facility] Last Admin: 08/19/16 22:12 Dose: Not Given Valacyclovir HCl (Valtrex) 500 mg PO DAILY [facility] Last Admin: 08/19/16 13:05 Dose: 500 mg - Labs Labs: 08/20/16 06:08 08/20/16 06:08 PT 11.6 SECONDS (9.7-12.2) 08/20/16 06:08 INR 1.0 08/20/16 06:08 APTT 20 SECONDS (21-34) L 08/20/16 06:08 - Constitutional Appears: Non-toxic - Eye Exam Eye Exam: absent: Scleral icterus - ENT Exam ENT Exam: Mucous Membranes Moist - Neck Exam Neck Exam: Full ROM - Respiratory Exam Respiratory Exam: NORMAL BREATHING PATTERN - Cardiovascular Exam Cardiovascular Exam: REGULAR RHYTHM - GI/Abdominal Exam GI & Abdominal Exam: Organomegaly - Extremities Exam Extremities Exam: Full ROM. absent: Pedal Edema Assessment and Plan - Assessment and Plan (Free Text) Assessment: Dilated cardiomyopathy ESRD Senile Dementia Plan: Cont HD Supportive therapy
--- NOTE | 2016-08-20 09:40 | CP.PCM.CON ---
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 The patient is currently confused and I am unable to obtain a history. Per her granddaughter she has become more confused with deviation of her tongue to one side. She notes her confusion is similar to her prior admission which improved with plasma exchange. Review of her blood work shows evidence of a non autoimmune hemolysis with her peripheral smear showing 4 -6 schistocytes per high powered field, low platelets. Past medical history: TTP, renal failure, cardiomyopathy Past surgical, family, social history cannot be obtained. Allergies: Per documentation NKA Review of systems cannot be obtained. Past Patient History - Past Medical History & Family History Past Medical History?: Yes - Past Social History Smoking Status: Never Smoked - CARDIAC Hx Hypertension: Yes - PULMONARY Hx Respiratory Disorders: No - NEUROLOGICAL Hx Neurological Disorder: Yes Hx Dementia: Yes - HEENT Hx HEENT Problems: Yes - RENAL Date of Last Dialysis Treatment: 08/14/16 - ENDOCRINE/METABOLIC Hx Diabetes Mellitus Type 2: Yes - HEMATOLOGICAL/ONCOLOGICAL Hx Anemia: Yes - INTEGUMENTARY Hx Dermatological Problems: Yes (generalized pruritus) - MUSCULOSKELETAL/RHEUMATOLOGICAL Hx Falls: No - GASTROINTESTINAL Hx Gastrointestinal Disorders: No - GENITOURINARY/GYNECOLOGICAL Hx Genitourinary Disorders: No - PSYCHIATRIC Hx Substance Use: No - SURGICAL HISTORY Hx Surgeries: Yes Other/Comment: 1993 THYROID SX - ANESTHESIA Hx Anesthesia: Yes Hx Anesthesia Reactions: No Hx Malignant Hyperthermia: No Meds Allergies/Adverse Reactions: Allergies Allergy/AdvReac Type Severity Reaction Status Date / Time No Known Allergies Allergy Verified 08/16/16 01:13 - Medications Medications: Current Medications Acetaminophen (Tylenol 325mg Tab) 650 mg PO Q6 PRN PRN Reason: Fever >100.4 F Artificial Tears (Artificial Tears) 0 ml OU QID [facility] Last Admin: 08/19/16 22:12 Dose: 1 drop Latanoprost (Xalatan Opht) 0 ml OU HS [facility] Last Admin: 08/19/16 22:12 Dose: 1 ml Megestrol Acetate (Megace) 40 mg PO DAILY [facility] Last Admin: 08/19/16 13:05 Dose: 40 mg Methotrexate (Methotrexate) 2.5 mg PO QWK [facility] Nifedipine (Procardia Xl) 30 mg PO DAILY [facility] Last Admin: 08/19/16 13:05 Dose: 30 mg Paricalcitol (Zemplar) 1 mcg IV TTS [facility] Stop: 08/28/16 10:01 Last Admin: 08/19/16 10:36 Dose: 1 mcg Saliva Substitute (First Magic Mouthwash) 5 ml PO QID [facility] Last Admin: 08/19/16 22:12 Dose: Not Given Valacyclovir HCl (Valtrex) 500 mg PO DAILY [facility] Last Admin: 08/19/16 13:05 Dose: 500 mg Physical Exam - Head Exam Head Exam: ATRAUMATIC - Eye Exam Eye Exam: Normal appearance - ENT Exam ENT Exam: Mucous Membranes Dry - Respiratory Exam Respiratory Exam: NORMAL BREATHING PATTERN - Cardiovascular Exam Cardiovascular Exam: +S1, +S2 - GI/Abdominal Exam GI & Abdominal Exam: Normal Bowel Sounds - Extremities Exam Extremities exam: Positive for: pedal edema - Neurological Exam Neurological exam: Altered - Psychiatric Exam Psychiatric exam: Agitated - Skin Skin Exam: Warm Results - Vital Signs Recent Vital Signs: Last Vital Signs Temp 98.2 F 08/20/16 09:03 Pulse 98 H 08/20/16 09:03 Resp 18 08/20/16 09:03 BP 147/61 08/20/16 09:03 Pulse Ox 95 08/20/16 09:03 - Labs Result Diagrams: 08/20/16 06:08 08/20/16 06:08 Labs: Laboratory Results - last 24 hr 08/20/16 08/20/16 08/20/16 06:08 06:08 06:08 WBC 6.2 RBC 3.86 Hgb 12.3 Hct 39.3 MCV 101.8 H MCH 31.9 H MCHC 31.4 L RDW 18.8 H Plt Count 73 L MPV 9.7 Neut % (Auto) 71.0 Lymph % (Auto) 14.7 L [place] % (Auto) 10.7 H Eos % (Auto) 3.3 Baso % (Auto) 0.3 Neut # 4.4 Lymph # 0.9 L [place] # 0.7 Eos # 0.2 Baso # 0.0 Differential Comment Retic Count 3.4 H D PT 11.6 INR 1.0 APTT 20 L Fibrinogen 303 Sodium 134 Potassium 3.7 Chloride 97 L Carbon Dioxide 25 Anion Gap 16 BUN 30 H Creatinine 7.3 H Est GFR ( Amer) 7 Est GFR (Non-Af Amer) 5 Random Glucose 103 Calcium 7.8 L Ferritin 267.0 Total Bilirubin 0.9 AST 38 H ALT 24 Alkaline Phosphatase 112 Lactate Dehydrogenase 937 H Total Protein 6.2 L Globulin 3.4 Albumin/Globulin Ratio 0.8 L Vitamin B12 848 Folate 8.0 Assessment & Plan (1) TTP (thrombotic thrombocytopenic purpura) Assessment and Plan: appears to have relapsed into TTP, will transfer to ICU will reinitiate plasma exchange, 1 plasma volume with FFP daily ? autoimmune related given history of rheumatoid arthritis; will add steroids [id number] level, inhibitor screen, and HIV sent. Thank you for this interesting consult. Status: Acute
[2016-08-20] MEDS: Mag&Al/Simet/Diphen/Lido 237 ML KIT PO SCH ×4 (11:00→22:10)
[2016-08-20] MEDS: Aritificial Tears (15ml) OU SCH ×4 (11:00→22:09)
[2016-08-20] MEDS: NIFEdipine 30 mg ER Tab PO SCH (11:00)
--- NOTE | 2016-08-20 11:05 | CP.PCM.PN ---
Subjective - Date & Time of Evaluation Date of Evaluation: 08/20/16 Time of Evaluation: 11:00 - Subjective Subjective: 80 year old female with a Past medical history of TTP s/p plasma exchange last month, renal failure, cardiomyopathy. admitted with AMS, renal failure, thrombocytopenia, secondary to relapsed TTP, 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 As per granddaughter patient has became more confused. Objective - Vital Signs/Intake and Output Vital Signs (last 24 hours): Temp Pulse Resp BP Pulse Ox 98.2 F 98 H 18 147/61 95 08/20/16 09:03 08/20/16 09:03 08/20/16 09:03 08/20/16 09:03 08/20/16 09:03 Intake and Output: 08/20/16 08/20/16 06:59 18:59 Intake Total 100 Balance 100 - Medications Medications: Current Medications Acetaminophen (Tylenol 325mg Tab) 650 mg PO Q6 PRN PRN Reason: Fever >100.4 F Artificial Tears (Artificial Tears) 0 ml OU QID [facility] Last Admin: 08/19/16 22:12 Dose: 1 drop Latanoprost (Xalatan Opht) 0 ml OU HS [facility] Last Admin: 08/19/16 22:12 Dose: 1 ml Megestrol Acetate (Megace) 40 mg PO DAILY [facility] Last Admin: 08/19/16 13:05 Dose: 40 mg Methotrexate (Methotrexate) 2.5 mg PO QWK [facility] Nifedipine (Procardia Xl) 30 mg PO DAILY [facility] Last Admin: 08/19/16 13:05 Dose: 30 mg Paricalcitol (Zemplar) 1 mcg IV TTS [facility] Stop: 08/28/16 10:01 Last Admin: 08/19/16 10:36 Dose: 1 mcg Saliva Substitute (First Magic Mouthwash) 5 ml PO QID [facility] Last Admin: 08/19/16 22:12 Dose: Not Given Valacyclovir HCl (Valtrex) 500 mg PO DAILY [facility] Last Admin: 08/19/16 13:05 Dose: 500 mg - Labs Labs: 08/20/16 06:08 08/20/16 06:08 PT 11.6 SECONDS (9.7-12.2) 08/20/16 06:08 INR 1.0 08/20/16 06:08 APTT 20 SECONDS (21-34) L 08/20/16 06:08 Assessment and Plan - Assessment and Plan (Free Text) Plan: Patient seen by Dr. Montanez. Patient appears to have relapsed into the TTP. Pt will be transfered to ICU as per Dr. Montanez, will be getting plasma exchange, 1 plasma volume with FFP daily. Dr. Martine Ureña made aware of pt transfered to ICU, agree w/poc.
--- NOTE | 2016-08-20 13:04 | CP.PCM.CON ---
<Taniya Cunningham - Last Filed: 08/20/16 13:49> History of Present Illness - History of Present Illness History of Present Illness: Patient seen and examined at bedside in the afternoon. Patient was transferred from the medical floor to reinitiate plasma exchange per Dr. Montanez. Patient is not alert. Patient does not respond to sternal rub or commands. Review of Systems - Review of Systems Systems not reviewed;Unavailable: Altered Mental Status (Patient does not respond to sternal rub or commands.) Past Patient History - Past Medical History & Family History Past Medical History?: Yes - Past Social History Smoking Status: Never Smoked - CARDIAC Hx Hypertension: Yes - PULMONARY Hx Respiratory Disorders: No - NEUROLOGICAL Hx Neurological Disorder: Yes Hx Dementia: Yes - HEENT Hx HEENT Problems: Yes - RENAL Date of Last Dialysis Treatment: 08/14/16 - ENDOCRINE/METABOLIC Hx Diabetes Mellitus Type 2: Yes - HEMATOLOGICAL/ONCOLOGICAL Hx Anemia: Yes - INTEGUMENTARY Hx Dermatological Problems: Yes (generalized pruritus) - MUSCULOSKELETAL/RHEUMATOLOGICAL Hx Falls: No - GASTROINTESTINAL Hx Gastrointestinal Disorders: No - GENITOURINARY/GYNECOLOGICAL Hx Genitourinary Disorders: No - PSYCHIATRIC Hx Substance Use: No - SURGICAL HISTORY Hx Surgeries: Yes Other/Comment: 1993 THYROID SX - ANESTHESIA Hx Anesthesia: Yes Hx Anesthesia Reactions: No Hx Malignant Hyperthermia: No Meds Allergies/Adverse Reactions: Allergies Allergy/AdvReac Type Severity Reaction Status Date / Time No Known Allergies Allergy Verified 08/16/16 01:13 - Medications Medications: Current Medications Acetaminophen (Tylenol 325mg Tab) 650 mg PO Q6 PRN PRN Reason: Fever >100.4 F Artificial Tears (Artificial Tears) 0 ml OU QID [facility] Last Admin: 08/20/16 11:00 Dose: 1 drop Latanoprost (Xalatan Opht) 0 ml OU HS [facility] Last Admin: 08/19/16 22:12 Dose: 1 ml Megestrol Acetate (Megace) 40 mg PO DAILY [facility] Last Admin: 08/20/16 11:00 Dose: 40 mg Methotrexate (Methotrexate) 2.5 mg PO QWK [facility] Last Admin: 08/20/16 11:16 Dose: 2.5 mg Methylprednisolone (Solu-Medrol) 20 mg IVP Q12 [facility] Nifedipine (Procardia Xl) 30 mg PO DAILY [facility] Last Admin: 08/20/16 11:00 Dose: 30 mg Paricalcitol (Zemplar) 1 mcg IV TTS [facility] Stop: 08/28/16 10:01 Last Admin: 08/19/16 10:36 Dose: 1 mcg Saliva Substitute (First Magic Mouthwash) 5 ml PO QID [facility] Last Admin: 08/20/16 11:00 Dose: 5 ml Valacyclovir HCl (Valtrex) 500 mg PO DAILY [facility] Last Admin: 08/20/16 11:00 Dose: 500 mg Physical Exam - Constitutional Appears: Confused - Head Exam Head Exam: ATRAUMATIC - Respiratory Exam Respiratory Exam: NORMAL BREATHING PATTERN. absent: Accessory Muscle Use Additional comments: Patient does not respond to commands therefore could not properly access breath sounds. - Cardiovascular Exam Cardiovascular Exam: REGULAR RHYTHM, +S1, +S2 - GI/Abdominal Exam GI & Abdominal Exam: Normal Bowel Sounds, Soft - Extremities Exam Extremities exam: Positive for: normal inspection. Negative for: joint swelling , pedal edema - Neurological Exam Additional comments: Patient does not respond to commands or sternal rub. Patient is not alert. Results - Vital Signs Recent Vital Signs: Last Vital Signs Temp 98.2 F 08/20/16 09:03 Pulse 104 H 08/20/16 12:00 Resp 18 08/20/16 09:03 BP 128/71 08/20/16 11:04 Pulse Ox 95 08/20/16 09:03 - Labs Result Diagrams: 08/20/16 06:08 08/20/16 06:08 Labs: Laboratory Results - last 24 hr 08/20/16 08/20/16 08/20/16 06:08 06:08 06:08 WBC 6.2 RBC 3.86 Hgb 12.3 Hct 39.3 MCV 101.8 H MCH 31.9 H MCHC 31.4 L RDW 18.8 H Plt Count 73 L MPV 9.7 Neut % (Auto) 71.0 Lymph % (Auto) 14.7 L [place] % (Auto) 10.7 H Eos % (Auto) 3.3 Baso % (Auto) 0.3 Neut # 4.4 Lymph # 0.9 L [place] # 0.7 Eos # 0.2 Baso # 0.0 Differential Comment Retic Count 3.4 H D PT 11.6 INR 1.0 APTT 20 L Fibrinogen 303 Sodium 134 Potassium 3.7 Chloride 97 L Carbon Dioxide 25 Anion Gap 16 BUN 30 H Creatinine 7.3 H Est GFR ( Amer) 7 Est GFR (Non-Af Amer) 5 Random Glucose 103 Calcium 7.8 L Ferritin 267.0 Total Bilirubin 0.9 AST 38 H ALT 24 Alkaline Phosphatase 112 Lactate Dehydrogenase 937 H Total Protein 6.2 L Albumin 2.8 L Globulin 3.4 Albumin/Globulin Ratio 0.8 L Vitamin B12 848 Folate 8.0 Blood Type Antibody Screen ED, Poly Interpret 08/20/16 10:23 WBC RBC Hgb Hct MCV MCH MCHC RDW Plt Count MPV Neut % (Auto) Lymph % (Auto) [place] % (Auto) Eos % (Auto) Baso % (Auto) Neut # Lymph # [place] # Eos # Baso # Differential Comment Retic Count PT INR APTT Fibrinogen Sodium Potassium Chloride Carbon Dioxide Anion Gap BUN Creatinine Est GFR ( Amer) Est GFR (Non-Af Amer) Random Glucose Calcium Ferritin Total Bilirubin AST ALT Alkaline Phosphatase Lactate Dehydrogenase Total Protein Albumin Globulin Albumin/Globulin Ratio Vitamin B12 Folate Blood Type O POSITIVE Antibody Screen Negative ED, Poly Interpret Negative Assessment & Plan - Assessment and Plan (Free Text) Assessment: 80 year old female with a 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 Plan: Neuro: -Not alert not oriented - Neurology Consult: Dr. Sharma --> help appreciated - Psychiatry Consult: Dr. Rock --> help appreciated Pulm: - O2 Nasal Cannula: 2L CV: - Cardiology Consult: Dr. Jules --> help appreciated Heme: Thrombotic thrombocytopenic purpura - Hematology/Oncology Consult: Dr. Montanez --> help appreciated - Reinitiate plasma exchange per Dr. Montanez - H/H: 12.3/39.3 - Platelet Count: 73; 85; 58 - PT/INR: 11.6/1.0 - PTT: 20 - Fibrinogen: 303 - f/u Haptoglobin , ADATS13 ID: - f/u HIV antibody Renal: - Renal Failure - BUN/Cr: 30/73 - Dialysis - Nephrology Consult: Dr. Graham --> help appreciated GI: - Renal Diet DVT proph - SCDs Code status - full code Case discussed with Dr. Nitin Cunningham PGY-1 <Anthony Taveras S - Last Filed: 08/20/16 17:29> Meds - Medications Medications: Current Medications Acetaminophen (Tylenol 325mg Tab) 650 mg PO Q6 PRN PRN Reason: Fever >100.4 F Artificial Tears (Artificial Tears) 0 ml OU QID [facility] Last Admin: 08/20/16 11:00 Dose: 1 drop Calcium Gluconate 9.3 meq/ (Sodium Chloride) 120 mls @ 100 mls/hr IV ONCE ONE Stop: 08/20/16 17:44 Latanoprost (Xalatan Opht) 0 ml OU HS [facility] Last Admin: 08/19/16 22:12 Dose: 1 ml Megestrol Acetate (Megace) 40 mg PO DAILY [facility] Last Admin: 08/20/16 11:00 Dose: 40 mg Methotrexate (Methotrexate) 2.5 mg PO QWK [facility] Last Admin: 08/20/16 11:16 Dose: 2.5 mg Methylprednisolone (Solu-Medrol) 20 mg IVP Q12 [facility] Nifedipine (Procardia Xl) 30 mg PO DAILY [facility] Last Admin: 08/20/16 11:00 Dose: 30 mg Paricalcitol (Zemplar) 1 mcg IV TTS [facility] Stop: 08/28/16 10:01 Last Admin: 08/19/16 10:36 Dose: 1 mcg Saliva Substitute (First Magic Mouthwash) 5 ml PO QID [facility] Last Admin: 08/20/16 11:00 Dose: 5 ml Valacyclovir HCl (Valtrex) 500 mg PO DAILY [facility] Last Admin: 08/20/16 11:00 Dose: 500 mg Vitamin A (Vitamin A & D Oint Ud Foilpak) 1 ea TOP BID [facility] Results - Vital Signs Recent Vital Signs: Last Vital Signs Temp 98.2 F 08/20/16 12:00 Pulse 98 H 08/20/16 12:00 Resp 20 08/20/16 12:00 BP 120/40 L 08/20/16 12:00 Pulse Ox 96 08/20/16 12:00 - Labs Result Diagrams: 08/20/16 06:08 08/20/16 06:08 Labs: Laboratory Results - last 24 hr 08/20/16 08/20/16 08/20/16 06:08 06:08 06:08 WBC 6.2 RBC 3.86 Hgb 12.3 Hct 39.3 MCV 101.8 H MCH 31.9 H MCHC 31.4 L RDW 18.8 H Plt Count 73 L MPV 9.7 Neut % (Auto) 71.0 Lymph % (Auto) 14.7 L [place] % (Auto) 10.7 H Eos % (Auto) 3.3 Baso % (Auto) 0.3 Neut # 4.4 Lymph # 0.9 L [place] # 0.7 Eos # 0.2 Baso # 0.0 Differential Comment Retic Count 3.4 H D PT 11.6 INR 1.0 APTT 20 L Fibrinogen 303 Sodium 134 Potassium 3.7 Chloride 97 L Carbon Dioxide 25 Anion Gap 16 BUN 30 H Creatinine 7.3 H Est GFR ( Amer) 7 Est GFR (Non-Af Amer) 5 Random Glucose 103 Calcium 7.8 L Ferritin 267.0 Total Bilirubin 0.9 AST 38 H ALT 24 Alkaline Phosphatase 112 Lactate Dehydrogenase 937 H Total Protein 6.2 L Albumin 2.8 L Globulin 3.4 Albumin/Globulin Ratio 0.8 L Vitamin B12 848 Folate 8.0 Blood Type Antibody Screen ED, Poly Interpret 08/20/16 10:23 WBC RBC Hgb Hct MCV MCH MCHC RDW Plt Count MPV Neut % (Auto) Lymph % (Auto) [place] % (Auto) Eos % (Auto) Baso % (Auto) Neut # Lymph # [place] # Eos # Baso # Differential Comment Retic Count PT INR APTT Fibrinogen Sodium Potassium Chloride Carbon Dioxide Anion Gap BUN Creatinine Est GFR ( Amer) Est GFR (Non-Af Amer) Random Glucose Calcium Ferritin Total Bilirubin AST ALT Alkaline Phosphatase Lactate Dehydrogenase Total Protein Albumin Globulin Albumin/Globulin Ratio Vitamin B12 Folate Blood Type O POSITIVE Antibody Screen Negative ED, Poly Interpret Negative Attending/Attestation - Attestation I have personally seen and examined this patient.: Yes I have fully participated in the care of the patient.: Yes I have reviewed all pertinent clinical information: Yes Notes (Text): 08/20/16 17:27 Patient seen and examined in the intensive care unit. Case discussed with staff in the morning. 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 For plasma exchange transfusion Continue hemodialysis Continue to monitor in ICU
[2016-08-20] MEDS ORDERED: DiphenhydrAMINE 50 mg/ml Inj IVP ONE ×2 (16:36→17:45)
[2016-08-20] MEDS: MethylPREDNISolone 40 mg Vial IVP SCH ×2 (17:35→21:34)
[2016-08-20] MEDS: Vitamins A & D Oint UD Foilpak TOP SCH (18:09)
--- NOTE | 2016-08-20 18:24 | CP.PCM.PN ---
Subjective - Date & Time of Evaluation Date of Evaluation: 08/20/16 Time of Evaluation: 18:22 - Subjective Subjective: pt seen and examined by me, pt is rest less and confused , transferred back to ICU for Plasmapheresis Hematology input appreciated, just started TPE for possible relapse of TTP Objective - Vital Signs/Intake and Output Vital Signs (last 24 hours): Temp Pulse Resp BP Pulse Ox 98.2 F 98 H 20 120/40 L 96 08/20/16 12:00 08/20/16 12:00 08/20/16 12:00 08/20/16 12:00 08/20/16 12:00 Intake and Output: 08/20/16 08/20/16 06:59 18:59 Intake Total 100 Balance 100 - Medications Medications: Current Medications Acetaminophen (Tylenol 325mg Tab) 650 mg PO Q6 PRN PRN Reason: Fever >100.4 F Artificial Tears (Artificial Tears) 0 ml OU QID [facility] Last Admin: 08/20/16 17:52 Dose: 1 drop Latanoprost (Xalatan Opht) 0 ml OU HS [facility] Last Admin: 08/19/16 22:12 Dose: 1 ml Megestrol Acetate (Megace) 40 mg PO DAILY [facility] Last Admin: 08/20/16 11:00 Dose: 40 mg Methotrexate (Methotrexate) 2.5 mg PO QWK [facility] Last Admin: 08/20/16 11:16 Dose: 2.5 mg Methylprednisolone (Solu-Medrol) 20 mg IVP Q12 [facility] Last Admin: 08/20/16 17:35 Dose: Not Given Nifedipine (Procardia Xl) 30 mg PO DAILY [facility] Last Admin: 08/20/16 11:00 Dose: 30 mg Paricalcitol (Zemplar) 1 mcg IV TTS [facility] Stop: 08/28/16 10:01 Last Admin: 08/19/16 10:36 Dose: 1 mcg Saliva Substitute (First Magic Mouthwash) 5 ml PO QID [facility] Last Admin: 08/20/16 17:50 Dose: 5 ml Valacyclovir HCl (Valtrex) 500 mg PO DAILY [facility] Last Admin: 08/20/16 11:00 Dose: 500 mg Vitamin A (Vitamin A & D Oint Ud Foilpak) 1 ea TOP BID [facility] Last Admin: 08/20/16 18:09 Dose: 1 ea - Labs Labs: 08/20/16 06:08 07/12/17 06:08 PT 11.6 SECONDS (9.7-12.2) 08/20/16 06:08 INR 1.0 08/20/16 06:08 APTT 20 SECONDS (21-34) L 08/20/16 06:08 - Constitutional Appears: Well, Non-toxic, No Acute Distress - Head Exam Head Exam: ATRAUMATIC, NORMOCEPHALIC - Eye Exam Eye Exam: EOMI, Normal appearance, PERRL Pupil Exam: NORMAL ACCOMODATION, PERRL - ENT Exam ENT Exam: Mucous Membranes Moist - Neck Exam Neck Exam: Full ROM, Normal Inspection - Respiratory Exam Respiratory Exam: Clear to Ausculation Bilateral, NORMAL BREATHING PATTERN - Cardiovascular Exam Cardiovascular Exam: REGULAR RHYTHM, +S1, +S2 - GI/Abdominal Exam GI & Abdominal Exam: Soft, Normal Bowel Sounds Additional comments: non tender, no guarding, no rigidity - Rectal Exam Rectal Exam: Deferred - Extremities Exam Additional comments: no edema of leg, no cyanosis, no clubbing - Neurological Exam Neurological Exam: Altered Additional comments: confused 0oriented x 0-1 - Psychiatric Exam Additional comments: restless on the bed , tossing and turning frequently Assessment and Plan - Assessment and Plan (Free Text) Assessment: 80 yo HF with pmh/o htn, arthritis, renal failure, thrombocytopenia, TTP, s/p TPE , s/p extubation during her last admission, cardiomyopathy on hd 3x aweek 1. renal failure, MARCO on ckd, etiology is not clear, can't r/o ATN vs TMA 2. HTN 3. AMS, etiology is not clear, ? demetia, drugs, seizers, TTP c/w hd 3 x a week, TTS f/u with neurology hematology consult is appreciated c/w TPE as per Dr. Montanez, f/u work up, follow up cbc daily prognosis is very poor
--- NOTE | 2016-08-20 18:24 | CP.PCM.PN ---
Subjective - Date & Time of Evaluation Date of Evaluation: 08/20/16 Time of Evaluation: 11:40 - Subjective Subjective: clinically same Objective - Vital Signs/Intake and Output Vital Signs (last 24 hours): Temp Pulse Resp BP Pulse Ox 98.2 F 98 H 20 120/40 L 96 08/20/16 12:00 08/20/16 12:00 08/20/16 12:00 08/20/16 12:00 08/20/16 12:00 Intake and Output: 08/20/16 08/20/16 06:59 18:59 Intake Total 100 Balance 100 - Medications Medications: Current Medications Acetaminophen (Tylenol 325mg Tab) 650 mg PO Q6 PRN PRN Reason: Fever >100.4 F Artificial Tears (Artificial Tears) 0 ml OU QID [facility] Last Admin: 08/20/16 17:52 Dose: 1 drop Latanoprost (Xalatan Opht) 0 ml OU HS [facility] Last Admin: 08/19/16 22:12 Dose: 1 ml Megestrol Acetate (Megace) 40 mg PO DAILY [facility] Last Admin: 08/20/16 11:00 Dose: 40 mg Methotrexate (Methotrexate) 2.5 mg PO QWK [facility] Last Admin: 08/20/16 11:16 Dose: 2.5 mg Methylprednisolone (Solu-Medrol) 20 mg IVP Q12 [facility] Last Admin: 08/20/16 17:35 Dose: Not Given Nifedipine (Procardia Xl) 30 mg PO DAILY [facility] Last Admin: 08/20/16 11:00 Dose: 30 mg Paricalcitol (Zemplar) 1 mcg IV TTS [facility] Stop: 08/28/16 10:01 Last Admin: 08/19/16 10:36 Dose: 1 mcg Saliva Substitute (First Magic Mouthwash) 5 ml PO QID [facility] Last Admin: 08/20/16 17:50 Dose: 5 ml Valacyclovir HCl (Valtrex) 500 mg PO DAILY [facility] Last Admin: 08/20/16 11:00 Dose: 500 mg Vitamin A (Vitamin A & D Oint Ud Foilpak) 1 ea TOP BID [facility] Last Admin: 08/20/16 18:09 Dose: 1 ea - Labs Labs: 08/20/16 06:08 08/20/16 06:08 PT 11.6 SECONDS (9.7-12.2) 08/20/16 06:08 INR 1.0 08/20/16 06:08 APTT 20 SECONDS (21-34) L 08/20/16 06:08 Assessment and Plan (1) Cardiac dysrhythmia Status: Acute (2) ESRD (end stage renal disease) on dialysis Status: Acute (3) Pulmonary edema Status: Acute (4) MARCO (acute kidney injury) Status: Acute (5) Acute respiratory failure requiring reintubation Status: Acute (6) Arthritis Status: Acute (7) CHF (congestive heart failure) Status: Acute (8) Dehydration Status: Acute (9) Dehydration Status: Acute (10) Diverticulosis Status: Acute (11) Elevated CEA Status: Acute (12) Hypertension Status: Acute (13) Inguinal lymphadenopathy Status: Acute (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 - Assessment and Plan (Free Text) Plan: Confused demented Plasmapheresis Methotrexate Nifedipine Xalatan Valtrex Continue HD Nephro on board Psychiatry on board Palliative care consult Hemato-oncology consult
[2016-08-20] MEDS: Latanoprost 2.5 ml Opht Soln OU SCH (22:09)
[2016-08-21 06:41] LABS: EOS % 0.1 % (0.0-4.0); LYMPH % 11.1 % (20.0-40.0); MONO # 0.1 K/uL (0.0-0.8)
[2016-08-21 06:52] LABS: POTASSIUM 4.4 mmol/L (3.6-5.2)
[2016-08-21 06:54] LABS: BILIRUBIN,TOTAL 0.8 mg/dL (0.2-1.3)
[2016-08-21 06:55] LABS: CALCIUM 8.2 mg/dl (8.6-10.4); MAGNESIUM 2.1 mg/dL (1.6-2.3); PHOSPHOROUS 5.8 mg/dL (2.5-4.5)
--- NOTE | 2016-08-21 06:55 | CP.CCUPN ---
<Taniya Cunningham - Last Filed: 08/21/16 10:05> CCU Subjective - Physician Review Subjective (Free Text): 08/21/16 07:55 Patient was seen and examined at beside in the AM. Patient was awake but did not open her eyes on command or with sternal rub. Patient did not follow commands. CCU Objective - Vital Signs / Intake & Output Vital Signs (Last 4 hours): Vital Signs Pulse Resp BP Pulse Ox 08/21/16 06:30 89 10 L 94 L 08/21/16 06:20 91 H 16 95 08/21/16 06:10 94 H 18 99 08/21/16 06:00 91 H 11 L 97 08/21/16 05:50 93 H 14 119/69 94 L 08/21/16 05:40 94 H 11 L 91 L 08/21/16 05:30 92 H 14 95 08/21/16 05:20 96 H 21 98 08/21/16 05:10 96 H 16 92 L 08/21/16 05:00 95 H 13 97 08/21/16 04:50 88 18 141/76 95 08/21/16 04:40 91 H 22 97 08/21/16 04:30 91 H 23 96 08/21/16 04:20 94 H 12 94 L 08/21/16 04:10 95 H 12 96 08/21/16 04:00 97 H 18 93 L 08/21/16 03:50 89 15 93 L 08/21/16 03:49 80 23 131/94 H 95 08/21/16 03:40 68 17 98 08/21/16 03:30 93 H 21 95 08/21/16 03:20 80 18 96 08/21/16 03:10 92 H 26 H 96 08/21/16 03:00 82 16 98 Intake and Output (Last 8hrs): Intake & Output 08/20/16 08/20/16 08/21/16 14:59 22:59 06:59 Intake Total 540 0 Balance 540 0 Weight 124 lb 119 lb 12.8 oz Intake: Intake, IV Amount 0 Left Hand 0 Oral 440 0 Other 100 Other: # Bowel Movements 1 - Physical Exam Physical Exam Limitations: Positive for: Altered Mental Status Head: Positive for: Normocephalic Mouth: Negative for: Normal Lips (lips are red anc cracked ) Cardiovascular: Positive for: Regular Rate and Rhythm, Normal S1, S2 Abdomen: Positive for: Tenderness, Normal Bowel Sounds Upper Extremity: Negative for: Edema, Swelling Lower Extremity: Negative for: Edema, Swelling Neurological: Negative for: GCS=15, Speech Normal Psychiatric: Negative for: Alert, Oriented x 3, Normal Insight - Medications Active Medications: Active Medications Generic Name Dose Route Start Last Admin Trade Name Freq PRN Reason Stop Dose Admin Acetaminophen 650 mg 08/16/16 03:42 Tylenol 325mg Tab PO Q6 PRN Fever >100.4 F Artificial Tears 0 ml 08/16/16 14:00 08/20/16 22:09 Artificial Tears OU 2 drop QID JESSI Administration Latanoprost 0 ml 08/16/16 22:00 08/20/16 22:09 Xalatan Opht OU 2.5 ml HS JESSI Administration Megestrol Acetate 40 mg 08/16/16 10:00 08/20/16 11:00 Megace PO 40 mg DAILY JESSI Administration Methotrexate 2.5 mg 08/20/16 10:00 08/20/16 11:16 Methotrexate PO 2.5 mg QWK JESSI Administration Methylprednisolone 20 mg 08/20/16 18:00 08/20/16 21:34 Solu-Medrol IVP Not Given Q12 JESSI Nifedipine 30 mg 08/17/16 10:00 08/20/16 11:00 Procardia Xl PO 30 mg DAILY JESSI Administration Paricalcitol 1 mcg 08/16/16 18:00 08/19/16 10:36 Zemplar IV 08/28/16 10:01 1 mcg TTS JESSI Administration Saliva Substitute 5 ml 08/16/16 10:00 08/20/16 22:10 First Magic Mouthwash PO 5 ml QID JESSI Administration Valacyclovir HCl 500 mg 08/16/16 10:00 08/20/16 11:00 Valtrex PO 500 mg DAILY JESSI Administration Vitamin A 1 ea 08/20/16 18:00 08/20/16 18:09 Vitamin A & D Oint Ud Foilpak TOP 1 ea BID JESSI Administration - Patient Studies Lab Studies: Microbiology Studies 08/18/16 Unknown MRSA Culture - Final Nose MRSA NOT DETECTED Lab Studies 08/21/16 08/20/16 08/20/16 Range/Units 06:30 10:23 06:08 WBC (4.8-10.8) K/uL RBC (3.80-5.20) Mil/uL Hgb (11.0-16.0) g/dL Hct (34.0-47.0) % MCV (81.0-99.0) fL MCH (27.0-31.0) pg MCHC (33.0-37.0) g/dL RDW (11.5-14.5) % Plt Count (130-400) K/uL MPV (7.2-11.7) fL Neut % (Auto) (50.0-75.0) % Lymph % (Auto) (20.0-40.0) % [place] % (Auto) (0.0-10.0) % Eos % (Auto) (0.0-4.0) % Baso % (Auto) (0.0-2.0) % Neut # (1.8-7.0) K/uL Lymph # (1.0-4.3) K/uL [place] # (0.0-0.8) K/uL Eos # (0.0-0.7) K/uL Baso # (0.0-0.2) K/uL Differential Comment Retic Count (0.5-1.5) % PT 11.2 11.6 (9.7-12.2) SECONDS INR 1.0 1.0 APTT 27 D 20 L (21-34) SECONDS Fibrinogen 303 (200-400) mg/dL Ferritin ng/mL Albumin (3.5-5.0) g/dL Vitamin B12 (239-931) pg/mL Folate ng/mL Blood Type O POSITIVE Antibody Screen Negative ED, Poly Interpret Negative (NEGATIVE) 08/20/16 08/20/16 Range/Units 06:08 06:08 WBC 6.2 (4.8-10.8) K/uL RBC 3.86 (3.80-5.20) Mil/uL Hgb 12.3 (11.0-16.0) g/dL Hct 39.3 (34.0-47.0) % MCV 101.8 H (81.0-99.0) fL MCH 31.9 H (27.0-31.0) pg MCHC 31.4 L (33.0-37.0) g/dL RDW 18.8 H (11.5-14.5) % Plt Count 73 L (130-400) K/uL MPV 9.7 (7.2-11.7) fL Neut % (Auto) 71.0 (50.0-75.0) % Lymph % (Auto) 14.7 L (20.0-40.0) % [place] % (Auto) 10.7 H (0.0-10.0) % Eos % (Auto) 3.3 (0.0-4.0) % Baso % (Auto) 0.3 (0.0-2.0) % Neut # 4.4 (1.8-7.0) K/uL Lymph # 0.9 L (1.0-4.3) K/uL [place] # 0.7 (0.0-0.8) K/uL Eos # 0.2 (0.0-0.7) K/uL Baso # 0.0 (0.0-0.2) K/uL Differential Comment Retic Count 3.4 H D (0.5-1.5) % PT (9.7-12.2) SECONDS INR APTT (21-34) SECONDS Fibrinogen (200-400) mg/dL Ferritin 267.0 ng/mL Albumin 2.8 L (3.5-5.0) g/dL Vitamin B12 848 (239-931) pg/mL Folate 8.0 ng/mL Blood Type Antibody Screen ED, Poly Interpret (NEGATIVE) Laboratory Results - last 24 hr 08/20/16 08/20/16 08/20/16 06:08 06:08 06:08 WBC 6.2 RBC 3.86 Hgb 12.3 Hct 39.3 MCV 101.8 H MCH 31.9 H MCHC 31.4 L RDW 18.8 H Plt Count 73 L MPV 9.7 Neut % (Auto) 71.0 Lymph % (Auto) 14.7 L [place] % (Auto) 10.7 H Eos % (Auto) 3.3 Baso % (Auto) 0.3 Neut # 4.4 Lymph # 0.9 L [place] # 0.7 Eos # 0.2 Baso # 0.0 Differential Comment Retic Count 3.4 H D PT 11.6 INR 1.0 APTT 20 L Fibrinogen 303 Ferritin 267.0 Albumin 2.8 L Vitamin B12 848 Folate 8.0 Blood Type Antibody Screen ED, Poly Interpret 08/20/16 08/21/16 10:23 06:30 WBC RBC Hgb Hct MCV MCH MCHC RDW Plt Count MPV Neut % (Auto) Lymph % (Auto) [place] % (Auto) Eos % (Auto) Baso % (Auto) Neut # Lymph # [place] # Eos # Baso # Differential Comment Retic Count PT 11.2 INR 1.0 APTT 27 D Fibrinogen Ferritin Albumin Vitamin B12 Folate Blood Type O POSITIVE Antibody Screen Negative ED, Poly Interpret Negative Review of Systems - Review of Systems Systems not reviewed;Unavailable: Altered Mental Status Critical Care Progress Note - Nutrition Nutrition: Nutrition Category Date Time Status Renal Diet [DIET] Diets 08/16/16 Dinner Active Assessment/Plan - Assessment and Plan (Free Text) Assessment: 80 year old female with a 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 Plan: Neuro: -Not alert not oriented - Neurology Consult: Dr. Sharma --> help appreciated - Psychiatry Consult: Dr. Rock --> help appreciated - f/u Head CT Pulm: - O2 Nasal Cannula: 2L CV: - Cardiology Consult: Dr. Jules --> help appreciated Heme: Thrombotic thrombocytopenic purpura - Hematology/Oncology Consult: Dr. Montanez --> help appreciated - Reinitiate plasma exchange per Dr. Montanez x3 - received the first 08/20 - H/H (08/21): 11.7/37.2; H/H (08/20): 12.3/39.3 - Platelet Count: 81; 73; 85; 58 - PT/INR (08/21): 11.2/1; PT/INR (08/20): 11.6/1.0 - PTT (08/21): 20; PTT (08/20): 20 - Fibrinogen: 303 - f/u Haptoglobin , ADATS13 - f/u ABG ID: - HIV antibody: Negative Renal: - Renal Failure - BUN/Cr: 38/8.0 - Dialysis - Nephrology Consult: Dr. Graham --> help appreciated GI: - Renal Diet DVT proph - SCDs Code status - full code Case discussed with Dr. Levi Cunningham PGY-1 <Alessandro Sims - Last Filed: 08/21/16 12:14> CCU Objective - Vital Signs / Intake & Output Vital Signs (Last 4 hours): Vital Signs Temp Pulse Pulse Resp BP BP Pulse Ox 08/21/16 11:00 96 H 14 125/76 95 08/21/16 10:50 92 H 15 92 L 08/21/16 10:49 93 H 19 125/76 89 L 08/21/16 10:40 95 H 19 93 L 08/21/16 10:30 98 H 93 H 16 130/71 94 L 08/21/16 10:29 94 H 14 131/71 94 L 08/21/16 10:20 94 H 15 94 L 08/21/16 10:15 100 H 18 116/90 95 08/21/16 10:10 101 H 16 116/90 90 L 08/21/16 10:00 98.2 F 90 98 H 15 133/63 133/63 79 L 08/21/16 09:50 100 H 12 87 L 08/21/16 09:49 95 H 10 L 133/63 90 L 08/21/16 09:40 94 H 17 98 08/21/16 09:30 96 H 13 91 L 08/21/16 09:20 96 H 15 93 L 08/21/16 09:10 96 H 15 95 08/21/16 09:00 88 18 93 L 08/21/16 08:51 94 H 14 165/85 H 94 L 08/21/16 08:50 96 H 16 73 L 08/21/16 08:40 88 15 94 L 08/21/16 08:30 88 19 97 08/21/16 08:20 87 13 94 L 08/21/16 08:10 86 14 95 Intake and Output (Last 8hrs): Intake & Output 08/20/16 08/21/16 08/21/16 22:59 06:59 14:59 Intake Total 540 0 0 Balance 540 0 0 Weight 119 lb 12.8 oz Intake: Intake, IV Amount 0 Left Hand 0 Oral 440 0 0 Other 100 Other: # Bowel Movements 1 - Medications Active Medications: Active Medications Generic Name Dose Route Start Last Admin Trade Name Freq PRN Reason Stop Dose Admin Acetaminophen 650 mg 08/16/16 03:42 Tylenol 325mg Tab PO Q6 PRN Fever >100.4 F Artificial Tears 0 ml 08/16/16 14:00 08/20/16 22:09 Artificial Tears OU 2 drop QID JESSI Administration Latanoprost 0 ml 08/16/16 22:00 08/20/16 22:09 Xalatan Opht OU 2.5 ml HS JESSI Administration Megestrol Acetate 40 mg 08/16/16 10:00 08/21/16 10:36 Megace PO Not Given DAILY [facility]I Methotrexate 2.5 mg 08/20/16 10:00 08/20/16 11:16 Methotrexate PO 2.5 mg QWK JESSI Administration Methylprednisolone 20 mg 08/20/16 18:00 08/21/16 10:37 Solu-Medrol IVP Not Given Q12 JESSI Nifedipine 30 mg 08/17/16 10:00 08/21/16 10:36 Procardia Xl PO Not Given DAILY [facility]ESSI Paricalcitol 1 mcg 08/16/16 18:00 08/19/16 10:36 Zemplar IV 08/28/16 10:01 1 mcg TTS JESSI Administration Saliva Substitute 5 ml 08/16/16 10:00 08/21/16 10:36 First Magic Mouthwash PO Not Given QID JESSI Valacyclovir HCl 500 mg 08/16/16 10:00 08/21/16 10:37 Valtrex PO Not Given DAILY [facility]I Vitamin A 1 ea 08/20/16 18:00 08/20/16 18:09 Vitamin A & D Oint Ud Foilpak TOP 1 ea BID JESSI Administration - Patient Studies Lab Studies: Microbiology Studies 08/18/16 Unknown MRSA Culture - Final Nose MRSA NOT DETECTED Lab Studies 08/21/16 08/21/16 08/21/16 Range/Units 06:30 06:30 06:30 WBC (4.8-10.8) K/uL RBC (3.80-5.20) Mil/uL Hgb (11.0-16.0) g/dL Hct (34.0-47.0) % MCV (81.0-99.0) fL MCH (27.0-31.0) pg MCHC (33.0-37.0) g/dL RDW (11.5-14.5) % Plt Count (130-400) K/uL MPV (7.2-11.7) fL Neut % (Auto) (50.0-75.0) % Lymph % (Auto) (20.0-40.0) % [place] % (Auto) (0.0-10.0) % Eos % (Auto) (0.0-4.0) % Baso % (Auto) (0.0-2.0) % Neut # (1.8-7.0) K/uL Lymph # (1.0-4.3) K/uL [place] # (0.0-0.8) K/uL Eos # (0.0-0.7) K/uL Baso # (0.0-0.2) K/uL Haptoglobin (43-212) mg/dL PT 11.2 (9.7-12.2) SECONDS INR 1.0 APTT 27 D (21-34) SECONDS Sodium 136 (132-148) mmol/L Potassium 4.4 (3.6-5.2) mmol/L Chloride 95 L (98-107) mmol/L Carbon Dioxide 28 (22-30) mmol/L Anion Gap 17 (10-20) BUN 38 H (7-17) mg/dL Creatinine 8.0 H* (0.7-1.2) MG/DL Est GFR ( Amer) 6 Est GFR (Non-Af Amer) 5 Random Glucose 132 H (65-105) mg/dL Calcium 8.2 L (8.6-10.4) mg/dl Phosphorus 5.8 H (2.5-4.5) mg/dL Magnesium 2.1 (1.6-2.3) mg/dL Total Bilirubin 0.8 (0.2-1.3) mg/dL AST 33 (14-36) U/L ALT 22 (9-52) U/L Alkaline Phosphatase 86 (38-126) U/L Total Protein 6.0 L (6.3-8.3) g/dL Albumin 3.0 L (3.5-5.0) g/dL Globulin 3.0 (2.2-3.9) gm/dL Albumin/Globulin Ratio 1.0 (1.0-2.1) HIV 1&2 Antibody Screen Negative (NEGATIVE) 08/21/16 08/20/16 Range/Units 06:30 07:03 WBC 6.7 (4.8-10.8) K/uL RBC 3.67 L (3.80-5.20) Mil/uL Hgb 11.7 (11.0-16.0) g/dL Hct 37.2 (34.0-47.0) % MCV 101.4 H (81.0-99.0) fL MCH 31.8 H (27.0-31.0) pg MCHC 31.3 L (33.0-37.0) g/dL RDW 19.0 H (11.5-14.5) % Plt Count 81 L (130-400) K/uL MPV 10.8 (7.2-11.7) fL Neut % (Auto) 86.7 H (50.0-75.0) % Lymph % (Auto) 11.1 L (20.0-40.0) % [place] % (Auto) 2.0 (0.0-10.0) % Eos % (Auto) 0.1 (0.0-4.0) % Baso % (Auto) 0.1 (0.0-2.0) % Neut # 5.8 (1.8-7.0) K/uL Lymph # 0.7 L (1.0-4.3) K/uL [place] # 0.1 (0.0-0.8) K/uL Eos # 0.0 (0.0-0.7) K/uL Baso # 0.0 (0.0-0.2) K/uL Haptoglobin 184 (43-212) mg/dL PT (9.7-12.2) SECONDS INR APTT (21-34) SECONDS Sodium (132-148) mmol/L Potassium (3.6-5.2) mmol/L Chloride (98-107) mmol/L Carbon Dioxide (22-30) mmol/L Anion Gap (10-20) BUN (7-17) mg/dL Creatinine (0.7-1.2) MG/DL Est GFR ( Amer) Est GFR (Non-Af Amer) Random Glucose (65-105) mg/dL Calcium (8.6-10.4) mg/dl Phosphorus (2.5-4.5) mg/dL Magnesium (1.6-2.3) mg/dL Total Bilirubin (0.2-1.3) mg/dL AST (14-36) U/L ALT (9-52) U/L Alkaline Phosphatase (38-126) U/L Total Protein (6.3-8.3) g/dL Albumin (3.5-5.0) g/dL Globulin (2.2-3.9) gm/dL Albumin/Globulin Ratio (1.0-2.1) HIV 1&2 Antibody Screen (NEGATIVE) Laboratory Results - last 24 hr 08/20/16 08/21/16 08/21/16 07:03 06:30 06:30 WBC 6.7 RBC 3.67 L Hgb 11.7 Hct 37.2 MCV 101.4 H MCH 31.8 H MCHC 31.3 L RDW 19.0 H Plt Count 81 L MPV 10.8 Neut % (Auto) 86.7 H Lymph % (Auto) 11.1 L [place] % (Auto) 2.0 Eos % (Auto) 0.1 Baso % (Auto) 0.1 Neut # 5.8 Lymph # 0.7 L [place] # 0.1 Eos # 0.0 Baso # 0.0 Haptoglobin 184 PT 11.2 INR 1.0 APTT 27 D Sodium Potassium Chloride Carbon Dioxide Anion Gap BUN Creatinine Est GFR ( Amer) Est GFR (Non-Af Amer) Random Glucose Calcium Phosphorus Magnesium Total Bilirubin AST ALT Alkaline Phosphatase Total Protein Albumin Globulin Albumin/Globulin Ratio HIV 1&2 Antibody Screen 08/21/16 08/21/16 06:30 06:30 WBC RBC Hgb Hct MCV MCH MCHC RDW Plt Count MPV Neut % (Auto) Lymph % (Auto) [place] % (Auto) Eos % (Auto) Baso % (Auto) Neut # Lymph # [place] # Eos # Baso # Haptoglobin PT INR APTT Sodium 136 Potassium 4.4 Chloride 95 L Carbon Dioxide 28 Anion Gap 17 BUN 38 H Creatinine 8.0 H* Est GFR ( Amer) 6 Est GFR (Non-Af Amer) 5 Random Glucose 132 H Calcium 8.2 L Phosphorus 5.8 H Magnesium 2.1 Total Bilirubin 0.8 AST 33 ALT 22 Alkaline Phosphatase 86 Total Protein 6.0 L Albumin 3.0 L Globulin 3.0 Albumin/Globulin Ratio 1.0 HIV 1&2 Antibody Screen Negative Critical Care Progress Note - Nutrition Nutrition: Nutrition Category Date Time Status Renal Diet [DIET] Diets 08/16/16 Dinner Active Attending/Attestation - Attestation I have personally seen and examined this patient.: Yes I have fully participated in the care of the patient.: Yes I have reviewed all pertinent clinical information: Yes Notes (Text): 08/21/16 12:05 I have seen and examined the patient. Medical records, lab studies, and imaging were reviewed by me and a management plan was formulated on multidisciplinary rounds with resident Dr. Cunningham. I agree with their above documented assessment and plan. Patient had AMS, will obtain head CT to r/o stroke. Patient getting dialysis and plasmapheresis for TTP. Critical Care Time 35 minutes. Multi-disciplinary rounds were performed with house staff, nursing, speech therapy, respiratory therapy, pharmacy and nutrition with integrated input from the primary team/attending and other consulting services. The documented time is cumulative and includes review of patient data/exams/labs/chart review and examination of the patient on rounds and throughout the day; time is exclusive of any procedures or teaching time.
[2016-08-21 07:04] LABS: BASO % 0.1 % (0.0-2.0); HEMATOCRIT 37.2 % (34.0-47.0); LYMPH # 0.7 K/uL (1.0-4.3); MEAN CELL VOLUME 101.4 fL (81.0-99.0); MEAN CORPUSCULAR HEMOGLOBIN 31.8 pg (27.0-31.0); MEAN CORPUSCULAR HGB CONC 31.3 g/dL (33.0-37.0); MEAN PLATELET VOLUME 10.8 fL (7.2-11.7); NRBC % 0.2 % (0.0-2.0); WHITE BLOOD COUNT 6.7 K/uL (4.8-10.8)
[2016-08-21] MEDS: Vitamins A & D Oint UD Foilpak TOP SCH ×2 (10:00→17:43)
[2016-08-21] MEDS: Aritificial Tears (15ml) OU SCH ×4 (10:00→21:18)
[2016-08-21] MEDS: Mag&Al/Simet/Diphen/Lido 237 ML KIT PO SCH ×4 (10:36→21:19)
[2016-08-21] MEDS: NIFEdipine 30 mg ER Tab PO SCH (10:36)
[2016-08-21] MEDS: MethylPREDNISolone 40 mg Vial IVP SCH ×2 (10:37→21:19)
--- NOTE | 2016-08-21 12:17 | CP.PCM.PN ---
Subjective - Date & Time of Evaluation Date of Evaluation: 08/21/16 Time of Evaluation: 11:00 - Subjective Subjective: Patient is very lethargic and is not responding to verbal stimuli. ROS obtained from nursing. Per nursing patient has been with altered mental status since transferred from medical floor to ICU for plasmaphoresis. Objective - Vital Signs/Intake and Output Vital Signs (last 24 hours): Temp Pulse Resp BP Pulse Ox 98.2 F 96 H 14 125/76 95 08/21/16 10:00 08/21/16 11:00 08/21/16 11:00 08/21/16 11:00 08/21/16 11:00 Intake and Output: 08/21/16 08/21/16 06:59 18:59 Intake Total 340 0 Balance 340 0 - Medications Medications: Current Medications Acetaminophen (Tylenol 325mg Tab) 650 mg PO Q6 PRN PRN Reason: Fever >100.4 F Artificial Tears (Artificial Tears) 0 ml OU QID [facility] Last Admin: 08/20/16 22:09 Dose: 2 drop Latanoprost (Xalatan Opht) 0 ml OU HS [facility] Last Admin: 08/20/16 22:09 Dose: 2.5 ml Megestrol Acetate (Megace) 40 mg PO DAILY [facility] Last Admin: 08/21/16 10:36 Dose: Not Given Methotrexate (Methotrexate) 2.5 mg PO QWK [facility] Last Admin: 08/20/16 11:16 Dose: 2.5 mg Methylprednisolone (Solu-Medrol) 20 mg IVP Q12 [facility] Last Admin: 08/21/16 10:37 Dose: Not Given Nifedipine (Procardia Xl) 30 mg PO DAILY [facility] Last Admin: 08/21/16 10:36 Dose: Not Given Paricalcitol (Zemplar) 1 mcg IV TTS JESSI Stop: 08/28/16 10:01 Last Admin: 08/19/16 10:36 Dose: 1 mcg Saliva Substitute (First Magic Mouthwash) 5 ml PO QID [facility]I Last Admin: 08/21/16 10:36 Dose: Not Given Valacyclovir HCl (Valtrex) 500 mg PO DAILY [facility] Last Admin: 08/21/16 10:37 Dose: Not Given Vitamin A (Vitamin A & D Oint Ud Foilpak) 1 ea TOP BID [facility]I Last Admin: 08/20/16 18:09 Dose: 1 ea - Labs Labs: 07/13/17 06:30 08/21/16 06:30 PT 11.2 SECONDS (9.7-12.2) 08/21/16 06:30 INR 1.0 08/21/16 06:30 APTT 27 SECONDS (21-34) D 08/21/16 06:30 - Constitutional Appears: In Acute Distress, Chronically Ill - Head Exam Head Exam: ATRAUMATIC, NORMAL INSPECTION, NORMOCEPHALIC - Eye Exam Additional comments: keeps eyes closed. - ENT Exam ENT Exam: Mucous Membranes Dry - Neck Exam Neck Exam: Normal Inspection - Respiratory Exam Respiratory Exam: NORMAL BREATHING PATTERN - Cardiovascular Exam Cardiovascular Exam: Tachycardia, REGULAR RHYTHM, +S1, +S2 - GI/Abdominal Exam GI & Abdominal Exam: Hypoactive Bowel Sounds - Rectal Exam Rectal Exam: Deferred - Extremities Exam Extremities Exam: Normal Inspection Additional comments: Limited ROM to right side - Back Exam Back Exam: NORMAL INSPECTION - Neurological Exam Neurological Exam: Motor Sensory Deficit Neuro motor strength exam: Left Upper Extremity: 2/1, Right Upper Extremity: 2/1 , Left Lower Extremity: 2/1, Right Lower Extremity: 2/1 - Skin Skin Exam: Pallor Assessment and Plan - Assessment and Plan (Free Text) Assessment: Patient unable to fallow simple directions, keeps eyes closed and is rigid, leaning more to the right side. As per family, patient was able to talk to them 2-3 days ago, and patient tolerated small amounts of PO intake. Om exam today, patient is alert, unresponsive to verbal/ tactile stimuli. patient is S/P plasmaphoresis from yesterday. The platelet count low at 81. Patient was receiving HD today. BUN/Remote Broadcast Engineer elevated. Patient's condition discussed on rounds. Plan was to order CT head and ABGs. I met with patient's daughter Josie and granddaughter Haydee. The phamily admits being exhausted with patient's prolonged hospital stay as they visit daily and stay up late with patient. Family feels that every time they leave, patient's condition worsens. Family also fear that patient gets anxious if left alone in strange environment, especially since she lost her vision. Family played video record of patient about 3 days ago when she as per family was at her norm. Goals of care discussed. The daughter hopes patient would recover. Goal is to return patient home to where she wanted to stay. Per daughter, patient told her she would not want to in this country. I expressed my concerns that patient is not in condition capable of traveling. I also reassured family that all prudent medical interventions were applied to support patient's recovery but that we still do not know what caused sudden changes in patient's mental status. Code status discussed. Family is focused on patient's condition from 3 days ago and is not accepting discussion about end of life care. Impression * Patient is with acute changes in mental status, unable o advocate for her self * There is significant decline in patient's condition ; HD dependent, unresponsive to stimuli, unable to swallow * Possible CVA * Family is not accepting these changes and is focused on patient's condition when she was doing better * Goal is to send patient back to when recovers * Family is not ready to discuss end of life care Suggestion * Would evaluate for cause of AMS. Once the diagnosis is made, it will be easier for the family to accept the prognosis * Sympomatic Tx * palliative care will continue to fallow up with family and offer support
[2016-08-21] MEDS ORDERED: DiphenhydrAMINE 50 mg/ml Inj IVP ONE ×2 (12:33→14:15)
[2016-08-21] MEDS: Paricalcitol 2 mcg/ml Inj IV SCH (12:46)
[2016-08-21 14:01] LABS: ARTERIAL BLOOD HGB O2 SAT 92.1 % (95.0-98.0); CARBOXYHEMOGLOBIN 2.6 % (0.5-1.5); DRAW SITE L/F; HHB 4.2 % (0.0-5.0); METHEMOGLOBIN 1.2 % (0.0-3.0)
--- NOTE | 2016-08-21 14:57 | CP.PCM.PN ---
Subjective - Date & Time of Evaluation Date of Evaluation: 08/21/16 Time of Evaluation: 10:40 - Subjective Subjective: clinically same Objective - Vital Signs/Intake and Output Vital Signs (last 24 hours): Temp Pulse Resp BP Pulse Ox 98.2 F 97 H 14 143/81 95 08/21/16 10:00 08/21/16 13:00 08/21/16 13:00 08/21/16 13:00 08/21/16 13:00 Intake and Output: 08/21/16 08/21/16 06:59 18:59 Intake Total 340 0 Balance 340 0 - Medications Medications: Current Medications Acetaminophen (Tylenol 325mg Tab) 650 mg PO Q6 PRN PRN Reason: Fever >100.4 F Artificial Tears (Artificial Tears) 0 ml OU QID [facility] Last Admin: 08/20/16 22:09 Dose: 2 drop Latanoprost (Xalatan Opht) 0 ml OU HS [facility] Last Admin: 08/20/16 22:09 Dose: 2.5 ml Megestrol Acetate (Megace) 40 mg PO DAILY [facility] Last Admin: 08/21/16 10:36 Dose: Not Given Methotrexate (Methotrexate) 2.5 mg PO QWK [facility] Last Admin: 08/20/16 11:16 Dose: 2.5 mg Methylprednisolone (Solu-Medrol) 20 mg IVP Q12 [facility] Last Admin: 08/21/16 10:37 Dose: Not Given Nifedipine (Procardia Xl) 30 mg PO DAILY [facility] Last Admin: 08/21/16 10:36 Dose: Not Given Paricalcitol (Zemplar) 1 mcg IV TTS [facility] Stop: 08/28/16 10:01 Last Admin: 08/21/16 12:46 Dose: 1 mcg Saliva Substitute (First Magic Mouthwash) 5 ml PO QID [facility] Last Admin: 08/21/16 10:36 Dose: Not Given Valacyclovir HCl (Valtrex) 500 mg PO DAILY [facility] Last Admin: 08/21/16 10:37 Dose: Not Given Vitamin A (Vitamin A & D Oint Ud Foilpak) 1 ea TOP BID [facility] Last Admin: 08/20/16 18:09 Dose: 1 ea - Labs Labs: 08/21/16 06:30 08/21/16 06:30 PT 11.2 SECONDS (9.7-12.2) 08/21/16 06:30 INR 1.0 08/21/16 06:30 APTT 27 SECONDS (21-34) D 08/21/16 06:30 - Constitutional Appears: Well - Head Exam Head Exam: ATRAUMATIC, NORMAL INSPECTION, NORMOCEPHALIC - Eye Exam Eye Exam: EOMI, Normal appearance, PERRL Pupil Exam: NORMAL ACCOMODATION, PERRL - ENT Exam ENT Exam: Mucous Membranes Moist, Normal Exam - Neck Exam Neck Exam: Full ROM, Normal Inspection. absent: Lymphadenopathy - Respiratory Exam Respiratory Exam: Decreased Breath Sounds - Cardiovascular Exam Cardiovascular Exam: REGULAR RHYTHM, +S1, +S2 - GI/Abdominal Exam GI & Abdominal Exam: Soft, Diminished Bowel Sounds - Rectal Exam Rectal Exam: Deferred Assessment and Plan (1) Cardiac dysrhythmia Status: Acute (2) ESRD (end stage renal disease) on dialysis Status: Acute (3) Pulmonary edema Status: Acute (4) MARCO (acute kidney injury) Status: Acute (5) Acute respiratory failure requiring reintubation Status: Acute (6) Arthritis Status: Acute (7) CHF (congestive heart failure) Status: Acute (8) Dehydration Status: Acute (9) Dehydration Status: Acute (10) Diverticulosis Status: Acute (11) Elevated CEA Status: Acute (12) Hypertension Status: Acute (13) Inguinal lymphadenopathy Status: Acute (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 - Assessment and Plan (Free Text) Plan: Patient lethargic in ICU for plasmapheresis Not responding to verbal stimuli Plasmapheresis Methotrexate Nifedipine Valtrex Continue HD Nephro on board Psychiatry on board Palliative care consult Hemato-oncology on board
[2016-08-21] MEDS ORDERED: Calcium Gluconate 9.3 MEQ in Sodium Chloride 0.9% 250 ML IV ONE (15:40)
--- NOTE | 2016-08-21 19:35 | CP.PCM.PN ---
Subjective - Date & Time of Evaluation Date of Evaluation: 08/21/16 Time of Evaluation: 19:35 - Subjective Subjective: pt is feeling better, re started on TPE and s/p hd today#[id number] follow up consult is dictated Objective - Vital Signs/Intake and Output Vital Signs (last 24 hours): Temp Pulse Resp BP Pulse Ox 98.6 F 83 10 L 128/97 H 100 08/21/16 16:00 08/21/16 19:20 08/21/16 19:20 08/21/16 17:45 08/21/16 19:10 Intake and Output: 08/21/16 08/22/16 18:59 06:59 Intake Total 450 Balance 450 - Medications Medications: Current Medications Acetaminophen (Tylenol 325mg Tab) 650 mg PO Q6 PRN PRN Reason: Fever >100.4 F Artificial Tears (Artificial Tears) 0 ml OU QID [facility] Last Admin: 08/21/16 17:41 Dose: 1 drop Latanoprost (Xalatan Opht) 0 ml OU HS [facility] Last Admin: 08/20/16 22:09 Dose: 2.5 ml Megestrol Acetate (Megace) 40 mg PO DAILY [facility] Last Admin: 08/21/16 10:36 Dose: Not Given Methotrexate (Methotrexate) 2.5 mg PO QWK [facility] Last Admin: 08/20/16 11:16 Dose: 2.5 mg Methylprednisolone (Solu-Medrol) 20 mg IVP Q12 [facility] Last Admin: 08/21/16 10:37 Dose: Not Given Nifedipine (Procardia Xl) 30 mg PO DAILY [facility] Last Admin: 08/21/16 10:36 Dose: Not Given Paricalcitol (Zemplar) 1 mcg IV TTS [facility] Stop: 08/28/16 10:01 Last Admin: 08/21/16 12:46 Dose: 1 mcg Saliva Substitute (First Magic Mouthwash) 5 ml PO QID [facility] Last Admin: 08/21/16 17:42 Dose: 5 ml Valacyclovir HCl (Valtrex) 500 mg PO DAILY [facility] Last Admin: 08/21/16 10:37 Dose: Not Given Vitamin A (Vitamin A & D Oint Ud Foilpak) 1 ea TOP BID [facility] Last Admin: 08/21/16 17:43 Dose: 1 ea - Labs Labs: 08/21/16 06:30 08/21/16 06:30 PT 11.2 SECONDS (9.7-12.2) 08/21/16 06:30 INR 1.0 08/21/16 06:30 APTT 27 SECONDS (21-34) D 08/21/16 06:30
--- NOTE | 2016-08-21 20:39 | CP.PCM.PN ---
Subjective - Date & Time of Evaluation Date of Evaluation: 08/21/16 Time of Evaluation: 19:15 - Subjective Subjective: Mental status improved Family at bedside s/p 2 sessions of plasma exchange Objective - Vital Signs/Intake and Output Vital Signs (last 24 hours): Temp Pulse Resp BP Pulse Ox 98.6 F 83 10 L 128/97 H 100 08/21/16 16:00 08/21/16 19:20 08/21/16 19:20 08/21/16 17:45 08/21/16 19:10 Intake and Output: 08/21/16 08/22/16 18:59 06:59 Intake Total 450 Balance 450 - Medications Medications: Current Medications Acetaminophen (Tylenol 325mg Tab) 650 mg PO Q6 PRN PRN Reason: Fever >100.4 F Artificial Tears (Artificial Tears) 0 ml OU QID [facility] Last Admin: 08/21/16 17:41 Dose: 1 drop Latanoprost (Xalatan Opht) 0 ml OU HS [facility] Last Admin: 08/20/16 22:09 Dose: 2.5 ml Megestrol Acetate (Megace) 40 mg PO DAILY [facility] Last Admin: 08/21/16 10:36 Dose: Not Given Methotrexate (Methotrexate) 2.5 mg PO QWK [facility] Last Admin: 08/20/16 11:16 Dose: 2.5 mg Methylprednisolone (Solu-Medrol) 20 mg IVP Q12 [facility] Last Admin: 08/21/16 10:37 Dose: Not Given Nifedipine (Procardia Xl) 30 mg PO DAILY [facility] Last Admin: 08/21/16 10:36 Dose: Not Given Paricalcitol (Zemplar) 1 mcg IV TTS [facility] Stop: 08/28/16 10:01 Last Admin: 08/21/16 12:46 Dose: 1 mcg Saliva Substitute (First Magic Mouthwash) 5 ml PO QID [facility] Last Admin: 08/21/16 17:42 Dose: 5 ml Valacyclovir HCl (Valtrex) 500 mg PO DAILY [facility] Last Admin: 08/21/16 10:37 Dose: Not Given Vitamin A (Vitamin A & D Oint Ud Foilpak) 1 ea TOP BID [facility] Last Admin: 08/21/16 17:43 Dose: 1 ea - Labs Labs: 08/21/16 06:30 08/21/16 06:30 PT 11.2 SECONDS (9.7-12.2) 08/21/16 06:30 INR 1.0 08/21/16 06:30 APTT 27 SECONDS (21-34) D 08/21/16 06:30 - Head Exam Head Exam: ATRAUMATIC - Eye Exam Eye Exam: Normal appearance - ENT Exam ENT Exam: Mucous Membranes Dry - Respiratory Exam Respiratory Exam: NORMAL BREATHING PATTERN - Cardiovascular Exam Cardiovascular Exam: +S1, +S2 - GI/Abdominal Exam GI & Abdominal Exam: Normal Bowel Sounds - Extremities Exam Extremities Exam: Pedal Edema Assessment and Plan (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
[2016-08-21] MEDS: Latanoprost 2.5 ml Opht Soln OU SCH (21:20)
[2016-08-22 06:55] LABS: BASO % 0.1 % (0.0-2.0); HEMATOCRIT 31.9 % (34.0-47.0); LYMPH # 0.9 K/uL (1.0-4.3); LYMPH % 9.6 % (20.0-40.0); MEAN CORPUSCULAR HEMOGLOBIN 32.1 pg (27.0-31.0); MEAN CORPUSCULAR HGB CONC 31.8 g/dL (33.0-37.0); MEAN PLATELET VOLUME 10.6 fL (7.2-11.7); MONO # 0.3 K/uL (0.0-0.8); MONO % 2.8 % (0.0-10.0); NRBC % 0.1 % (0.0-2.0); PLATELET COUNT 86 K/uL (130-400); RED CELL DISTRIBUTION WIDTH 18.5 % (11.5-14.5); WHITE BLOOD COUNT 9.7 K/uL (4.8-10.8)
[2016-08-22 07:04] LABS: POTASSIUM 4.2 mmol/L (3.6-5.2)
[2016-08-22 07:06] LABS: ALB/GLOB RATIO 1.1 (1.0-2.1); BILIRUBIN,TOTAL 0.7 mg/dL (0.2-1.3); CALCIUM 8.3 mg/dl (8.6-10.4); MAGNESIUM 2.2 mg/dL (1.6-2.3); PHOSPHOROUS 5.7 mg/dL (2.5-4.5); TOTAL PROTEIN 5.5 g/dL (6.3-8.3)
--- NOTE | 2016-08-22 08:28 | CP.PCM.CON ---
History of Present Illness - History of Present Illness History of Present Illness: CC: eval for arrhythmias HPI: 80 Y/O FEMALE W/ HX OF TTP, DILATED CARDIOMYOPATHY, ESRD PRESENTED IN [facility]. PT WAS TREATED W/ AMIODARONE FOR POSSIBLE MALIGNANT TACHYARRHYTHMIAS TRIGGERING A SHOCK TO THE PATIENT. Review of Systems - Review of Systems Systems not reviewed;Unavailable: Altered Mental Status - Constitutional Constitutional: Anorexia - Cardiovascular Cardiovascular: Dyspnea on Exertion - Gastrointestinal Gastrointestinal: Abdominal Pain Past Patient History - Past Medical History & Family History Past Medical History?: Yes - Past Social History Smoking Status: Never Smoked - CARDIAC Hx Hypertension: Yes - PULMONARY Hx Respiratory Disorders: No - NEUROLOGICAL Hx Neurological Disorder: Yes Hx Dementia: Yes - HEENT Hx HEENT Problems: Yes - RENAL Date of Last Dialysis Treatment: 08/14/16 - ENDOCRINE/METABOLIC Hx Diabetes Mellitus Type 2: Yes - HEMATOLOGICAL/ONCOLOGICAL Hx Anemia: Yes - INTEGUMENTARY Hx Dermatological Problems: Yes (generalized pruritus) - MUSCULOSKELETAL/RHEUMATOLOGICAL Hx Falls: No - GASTROINTESTINAL Hx Gastrointestinal Disorders: No - GENITOURINARY/GYNECOLOGICAL Hx Genitourinary Disorders: No - PSYCHIATRIC Hx Substance Use: No - SURGICAL HISTORY Hx Surgeries: Yes Other/Comment: 1993 THYROID SX - ANESTHESIA Hx Anesthesia: Yes Hx Anesthesia Reactions: No Hx Malignant Hyperthermia: No Meds Allergies/Adverse Reactions: Allergies Allergy/AdvReac Type Severity Reaction Status Date / Time No Known Allergies Allergy Verified 08/16/16 01:13 - Medications Medications: Current Medications Acetaminophen (Tylenol 325mg Tab) 650 mg PO Q6 PRN PRN Reason: Fever >100.4 F Artificial Tears (Artificial Tears) 0 ml OU QID [facility] Last Admin: 08/21/16 21:18 Dose: 2 drop Latanoprost (Xalatan Opht) 0 ml OU HS [facility] Last Admin: 08/21/16 21:20 Dose: 2.5 ml Megestrol Acetate (Megace) 40 mg PO DAILY [facility] Last Admin: 08/21/16 10:36 Dose: Not Given Methotrexate (Methotrexate) 2.5 mg PO QWK [facility] Last Admin: 08/20/16 11:16 Dose: 2.5 mg Methylprednisolone (Solu-Medrol) 20 mg IVP Q12 [facility] Last Admin: 08/21/16 21:19 Dose: Not Given Nifedipine (Procardia Xl) 30 mg PO DAILY [facility] Last Admin: 08/21/16 10:36 Dose: Not Given Paricalcitol (Zemplar) 1 mcg IV TTS [facility] Stop: 08/28/16 10:01 Last Admin: 08/21/16 12:46 Dose: 1 mcg Saliva Substitute (First Magic Mouthwash) 5 ml PO QID [facility] Last Admin: 08/21/16 21:19 Dose: Not Given Valacyclovir HCl (Valtrex) 500 mg PO DAILY [facility] Last Admin: 08/21/16 10:37 Dose: Not Given Vitamin A (Vitamin A & D Oint Ud Foilpak) 1 ea TOP BID [facility] Last Admin: 08/21/16 17:43 Dose: 1 ea Physical Exam - Constitutional Appears: No Acute Distress - Head Exam Head Exam: NORMAL INSPECTION - Eye Exam Eye Exam: absent: Scleral icterus - Respiratory Exam Respiratory Exam: NORMAL BREATHING PATTERN - Cardiovascular Exam Cardiovascular Exam: REGULAR RHYTHM - Extremities Exam Extremities exam: Negative for: pedal edema, tenderness - Neurological Exam Neurological exam: Altered Results - Vital Signs Recent Vital Signs: Last Vital Signs Temp 97.5 F L 08/22/16 04:00 Pulse 82 08/22/16 07:00 Resp 9 L 08/22/16 07:00 BP 143/73 08/22/16 06:56 Pulse Ox 82 L 08/22/16 06:00 - Labs Result Diagrams: 08/22/16 06:47 08/22/16 06:47 Labs: Laboratory Results - last 24 hr 08/21/16 08/22/16 08/22/16 13:58 04:00 06:47 WBC 9.7 RBC 3.16 L Hgb 10.2 L Hct 31.9 L MCV 101.0 H MCH 32.1 H MCHC 31.8 L RDW 18.5 H Plt Count 86 L MPV 10.6 Neut % (Auto) 87.5 H Lymph % (Auto) 9.6 L Meagher % (Auto) 2.8 Eos % (Auto) 0.0 Baso % (Auto) 0.1 Neut # 8.5 H Lymph # 0.9 L Meagher # 0.3 Eos # 0.0 Baso # 0.0 PT 11.0 INR 1.0 APTT 25 Fibrinogen 211 Puncture Site L/f pCO2 32 L pO2 58 L HCO3 29.9 H ABG pH 7.56 H ABG Total CO2 29.7 H ABG O2 Saturation 95.6 ABG Base Excess 6.5 H ABG Hemoglobin 11.3 L ABG Carboxyhemoglobin 2.6 H POC ABG HHb (Measured) 4.2 ABG Methemoglobin 1.2 Braxton Test N/a A-a O2 Difference 52.0 Respiratory Index 0.9 Hgb O2 Saturation 92.1 L FiO2 21.0 Sodium Potassium Chloride Carbon Dioxide Anion Gap BUN Creatinine Est GFR ( Amer) Est GFR (Non-Af Amer) Random Glucose Calcium Phosphorus Magnesium Total Bilirubin AST ALT Alkaline Phosphatase Total Protein Albumin Globulin Albumin/Globulin Ratio 08/22/16 06:47 WBC RBC Hgb Hct MCV MCH MCHC RDW Plt Count MPV Neut % (Auto) Lymph % (Auto) Meagher % (Auto) Eos % (Auto) Baso % (Auto) Neut # Lymph # Meagher # Eos # Baso # PT INR APTT Fibrinogen Puncture Site pCO2 pO2 HCO3 ABG pH ABG Total CO2 ABG O2 Saturation ABG Base Excess ABG Hemoglobin ABG Carboxyhemoglobin POC ABG HHb (Measured) ABG Methemoglobin Braxton Test A-a O2 Difference Respiratory Index Hgb O2 Saturation FiO2 Sodium 140 Potassium 4.2 Chloride 96 L Carbon Dioxide 32 H Anion Gap 16 BUN 26 H Creatinine 4.9 H Est GFR ( Amer) 10 Est GFR (Non-Af Amer) 9 Random Glucose 132 H Calcium 8.3 L Phosphorus 5.7 H Magnesium 2.2 Total Bilirubin 0.7 AST 33 ALT 36 Alkaline Phosphatase 83 Total Protein 5.5 L Albumin 2.9 L Globulin 2.6 Albumin/Globulin Ratio 1.1 Assessment & Plan - Assessment and Plan (Free Text) Assessment: r/o Arrhythmias ESRD Dementia Hx of TTP Plan: I called [employer] to interrogate lifevest if there's a malfunction. EP consult w/ Dr Jules.
[2016-08-22 08:37] LABS: NEUTROPHIL 90 % (50-75); TOTAL CELLS COUNTED 100
--- NOTE | 2016-08-22 08:42 | CP.PCM.PN ---
Subjective - Date & Time of Evaluation Date of Evaluation: 08/17/16 Time of Evaluation: 09:00 - Subjective Subjective: pt seen with family at bedside Life vest interrogation - no arrhythmias Objective - Vital Signs/Intake and Output Vital Signs (last 24 hours): Temp Pulse Resp BP Pulse Ox 97.5 F L 82 9 L 143/73 82 L 08/22/16 04:00 08/22/16 07:00 08/22/16 07:00 08/22/16 06:56 08/22/16 06:00 Intake and Output: 08/22/16 08/22/16 06:59 18:59 Intake Total 120 Balance 120 - Medications Medications: Current Medications Acetaminophen (Tylenol 325mg Tab) 650 mg PO Q6 PRN PRN Reason: Fever >100.4 F Artificial Tears (Artificial Tears) 0 ml OU QID [facility] Last Admin: 08/21/16 21:18 Dose: 2 drop Latanoprost (Xalatan Opht) 0 ml OU HS [facility] Last Admin: 08/21/16 21:20 Dose: 2.5 ml Megestrol Acetate (Megace) 40 mg PO DAILY [facility] Last Admin: 08/21/16 10:36 Dose: Not Given Methotrexate (Methotrexate) 2.5 mg PO QWK [facility] Last Admin: 08/20/16 11:16 Dose: 2.5 mg Methylprednisolone (Solu-Medrol) 20 mg IVP Q12 [facility] Last Admin: 08/21/16 21:19 Dose: Not Given Nifedipine (Procardia Xl) 30 mg PO DAILY [facility] Last Admin: 08/21/16 10:36 Dose: Not Given Paricalcitol (Zemplar) 1 mcg IV TTS [facility] Stop: 08/28/16 10:01 Last Admin: 08/21/16 12:46 Dose: 1 mcg Saliva Substitute (First Magic Mouthwash) 5 ml PO QID [facility] Last Admin: 08/21/16 21:19 Dose: Not Given Valacyclovir HCl (Valtrex) 500 mg PO DAILY [facility] Last Admin: 08/21/16 10:37 Dose: Not Given Vitamin A (Vitamin A & D Oint Ud Foilpak) 1 ea TOP BID [facility] Last Admin: 08/21/16 17:43 Dose: 1 ea - Labs Labs: 08/22/16 06:47 08/22/16 06:47 PT 11.0 SECONDS (9.7-12.2) 08/22/16 04:00 INR 1.0 08/22/16 04:00 APTT 25 SECONDS (21-34) 08/22/16 04:00 - Constitutional Appears: Non-toxic - Eye Exam Eye Exam: absent: Scleral icterus - Neck Exam Neck Exam: absent: Lymphadenopathy - Respiratory Exam Respiratory Exam: NORMAL BREATHING PATTERN - Cardiovascular Exam Cardiovascular Exam: REGULAR RHYTHM - GI/Abdominal Exam GI & Abdominal Exam: Soft, Normal Bowel Sounds - Extremities Exam Extremities Exam: Pedal Edema, Tenderness. absent: Calf Tenderness Assessment and Plan - Assessment and Plan (Free Text) Assessment: Lifevest malfunction No Arrhythmias Dilated cardiomyopathy ESRD Dementia Hx of TTP Plan: Cont supportive tx DC IV amiodarone
--- NOTE | 2016-08-22 08:48 | CP.PCM.PN ---
Subjective - Date & Time of Evaluation Date of Evaluation: 08/21/16 Time of Evaluation: 08:35 - Subjective Subjective: no further complaint occasional agitation Objective - Vital Signs/Intake and Output Vital Signs (last 24 hours): Temp Pulse Resp BP Pulse Ox 97.5 F L 82 9 L 143/73 82 L 08/22/16 04:00 08/22/16 07:00 08/22/16 07:00 08/22/16 06:56 08/22/16 06:00 Intake and Output: 08/22/16 08/22/16 06:59 18:59 Intake Total 120 Balance 120 - Medications Medications: Current Medications Acetaminophen (Tylenol 325mg Tab) 650 mg PO Q6 PRN PRN Reason: Fever >100.4 F Artificial Tears (Artificial Tears) 0 ml OU QID [facility] Last Admin: 08/21/16 21:18 Dose: 2 drop Latanoprost (Xalatan Opht) 0 ml OU HS [facility] Last Admin: 08/21/16 21:20 Dose: 2.5 ml Megestrol Acetate (Megace) 40 mg PO DAILY [facility] Last Admin: 08/21/16 10:36 Dose: Not Given Methotrexate (Methotrexate) 2.5 mg PO QWK [facility] Last Admin: 08/20/16 11:16 Dose: 2.5 mg Methylprednisolone (Solu-Medrol) 20 mg IVP Q12 [facility] Last Admin: 08/21/16 21:19 Dose: Not Given Nifedipine (Procardia Xl) 30 mg PO DAILY [facility] Last Admin: 08/21/16 10:36 Dose: Not Given Paricalcitol (Zemplar) 1 mcg IV TTS [facility] Stop: 08/28/16 10:01 Last Admin: 08/21/16 12:46 Dose: 1 mcg Saliva Substitute (First Magic Mouthwash) 5 ml PO QID [facility] Last Admin: 08/21/16 21:19 Dose: Not Given Valacyclovir HCl (Valtrex) 500 mg PO DAILY [facility] Last Admin: 08/21/16 10:37 Dose: Not Given Vitamin A (Vitamin A & D Oint Ud Foilpak) 1 ea TOP BID [facility] Last Admin: 08/21/16 17:43 Dose: 1 ea - Labs Labs: 08/22/16 06:47 08/22/16 06:47 PT 11.0 SECONDS (9.7-12.2) 08/22/16 04:00 INR 1.0 08/22/16 04:00 APTT 25 SECONDS (21-34) 08/22/16 04:00 - Constitutional Appears: Non-toxic - Eye Exam Eye Exam: Scleral icterus - ENT Exam ENT Exam: Mucous Membranes Dry - Respiratory Exam Respiratory Exam: NORMAL BREATHING PATTERN - Cardiovascular Exam Cardiovascular Exam: REGULAR RHYTHM - GI/Abdominal Exam GI & Abdominal Exam: Soft - Rectal Exam Rectal Exam: NORMAL INSPECTION - Neurological Exam Neurological Exam: Altered Assessment and Plan - Assessment and Plan (Free Text) Assessment: Dilated cardiomyopathy ESRD Dementia Plan: Cont supportive treatment Case discussed w/ family
[2016-08-22] MEDS ORDERED: DiphenhydrAMINE 50 mg/ml Inj IVP ONE (09:21)
[2016-08-22] MEDS: Aritificial Tears (15ml) OU SCH ×4 (09:24→21:43)
[2016-08-22] MEDS: MethylPREDNISolone 40 mg Vial IVP SCH ×2 (09:24→21:21)
[2016-08-22] MEDS: NIFEdipine 30 mg ER Tab PO SCH (09:25)
[2016-08-22] MEDS: Vitamins A & D Oint UD Foilpak TOP SCH ×2 (09:25→17:25)
[2016-08-22] MEDS ORDERED: CALCIUM GLUCONATE IVPB ONE ×2 (09:30→09:38)
[2016-08-22] MEDS ORDERED: SODIUM CHLORIDE 0.9% IVPB ONE ×2 (09:30→09:38)
[2016-08-22] MEDS: Mag&Al/Simet/Diphen/Lido 237 ML KIT PO SCH ×3 (09:30→21:23)
--- NOTE | 2016-08-22 09:42 | CP.PCM.PN ---
Subjective - Date & Time of Evaluation Date of Evaluation: 08/22/16 Time of Evaluation: 10:20 - Subjective Subjective: clinically same Objective - Vital Signs/Intake and Output Vital Signs (last 24 hours): Temp Pulse Resp BP Pulse Ox 97.5 F L 82 9 L 143/73 82 L 08/22/16 04:00 08/22/16 07:00 08/22/16 07:00 08/22/16 06:56 08/22/16 06:00 Intake and Output: 08/22/16 08/22/16 06:59 18:59 Intake Total 120 Balance 120 - Medications Medications: Current Medications Acetaminophen (Tylenol 325mg Tab) 650 mg PO Q6 PRN PRN Reason: Fever >100.4 F Artificial Tears (Artificial Tears) 0 ml OU QID [facility] Last Admin: 08/22/16 09:24 Dose: 2 drop Calcium Gluconate 9.3 mg/ (Sodium Chloride) 250.093 mls @ 125 mls/hr IVPB ONCE ONE Stop: 08/22/16 11:30 Latanoprost (Xalatan Opht) 0 ml OU HS [facility] Last Admin: 08/21/16 21:20 Dose: 2.5 ml Megestrol Acetate (Megace) 40 mg PO DAILY [facility] Last Admin: 08/22/16 09:25 Dose: 40 mg Methotrexate (Methotrexate) 2.5 mg PO QWK [facility] Last Admin: 08/20/16 11:16 Dose: 2.5 mg Methylprednisolone (Solu-Medrol) 20 mg IVP Q12 [facility] Last Admin: 08/22/16 09:24 Dose: 20 mg Nifedipine (Procardia Xl) 30 mg PO DAILY [facility] Last Admin: 08/22/16 09:25 Dose: 30 mg Paricalcitol (Zemplar) 1 mcg IV TTS [facility] Stop: 08/28/16 10:01 Last Admin: 08/21/16 12:46 Dose: 1 mcg Saliva Substitute (First Magic Mouthwash) 5 ml PO QID [facility] Last Admin: 08/21/16 21:19 Dose: Not Given Valacyclovir HCl (Valtrex) 500 mg PO DAILY [facility] Last Admin: 08/22/16 09:25 Dose: 500 mg Vitamin A (Vitamin A & D Oint Ud Foilpak) 1 ea TOP BID [facility] Last Admin: 08/22/16 09:25 Dose: 1 ea - Labs Labs: 07/14/17 06:47 08/22/16 06:47 PT 11.0 SECONDS (9.7-12.2) 08/22/16 04:00 INR 1.0 08/22/16 04:00 APTT 25 SECONDS (21-34) 08/22/16 04:00 - Constitutional Appears: Well - Head Exam Head Exam: ATRAUMATIC, NORMAL INSPECTION, NORMOCEPHALIC - Eye Exam Eye Exam: EOMI, Normal appearance, PERRL Pupil Exam: NORMAL ACCOMODATION, PERRL - ENT Exam ENT Exam: Mucous Membranes Moist, Normal Exam - Neck Exam Neck Exam: Full ROM, Normal Inspection. absent: Lymphadenopathy - Respiratory Exam Respiratory Exam: Decreased Breath Sounds - Cardiovascular Exam Cardiovascular Exam: REGULAR RHYTHM, +S1, +S2 - GI/Abdominal Exam GI & Abdominal Exam: Soft, Diminished Bowel Sounds - Rectal Exam Rectal Exam: Deferred Assessment and Plan - Assessment and Plan (Free Text) Plan: Not oriented Eye opening present Discussed with family Not responding to verbal stimuli Methotrexate Nifedipine Valtrex Continue HD Nephro on board Psychiatry on board Palliative care consult Hemato-oncology on board
--- NOTE | 2016-08-22 12:10 | CP.CCUPN ---
<Taniya Cunningham - Last Filed: 08/22/16 12:06> CCU Subjective - Physician Review Subjective (Free Text): Patient was seen and examined at beside in the AM. Patient was alert and opened her eyes on command but did not respond to other commands such as take a deep breath. Patient is not oriented. 08/22/16 12:07 08/22/16 12:12 CCU Objective - Vital Signs / Intake & Output Vital Signs (Last 4 hours): Vital Signs Pulse Resp BP Pulse Ox 08/22/16 11:20 99 H 15 78 L 08/22/16 11:19 99 H 11 L 114/57 L 78 L 08/22/16 11:10 94 H 16 84 L 08/22/16 11:05 93 H 20 140/74 08/22/16 11:00 94 H 13 08/22/16 10:50 95 H 18 08/22/16 10:47 91 H 19 119/61 08/22/16 10:46 93 H 15 08/22/16 10:40 92 H 11 L 08/22/16 10:38 89 16 118/59 L 08/22/16 10:30 86 10 L 08/22/16 10:20 83 13 08/22/16 10:10 85 13 08/22/16 10:00 101 H 28 H 08/22/16 09:56 80 133/47 L 08/22/16 09:50 72 08/22/16 09:40 87 08/22/16 09:30 63 08/22/16 09:25 72 153/79 H 08/22/16 09:20 85 08/22/16 09:00 82 13 08/22/16 08:56 91 H 10 L 150/82 08/22/16 08:50 90 10 L 08/22/16 08:40 89 9 L 08/22/16 08:30 62 11 L 08/22/16 08:22 85 08/22/16 08:10 81 15 Intake and Output (Last 8hrs): Intake & Output 08/21/16 08/22/16 08/22/16 22:59 06:59 14:59 Intake Total 570 1050 Output Total 0 Balance 570 1050 Weight 119 lb Intake: Oral 570 1050 Output: Oral Regurgitation 0 Other: # Voids Urine, Voided 0 0 0 # Bowel Movements 1 1 0 - Physical Exam Head: Positive for: Normocephalic Mouth: Negative for: Normal Lips (lips are red anc cracked ) Respiratory/Chest: Negative for: Accessory Muscle Use Cardiovascular: Positive for: Regular Rate and Rhythm, Normal S1, S2 Abdomen: Positive for: Normal Bowel Sounds Upper Extremity: Negative for: Edema, Swelling Lower Extremity: Negative for: Edema, Swelling Neurological: Negative for: GCS=15, Speech Normal Psychiatric: Negative for: Alert, Oriented x 3, Normal Insight, Normal Concentration - Medications Active Medications: Active Medications Generic Name Dose Route Start Last Admin Trade Name Freq PRN Reason Stop Dose Admin Acetaminophen 650 mg 08/16/16 03:42 Tylenol 325mg Tab PO Q6 PRN Fever >100.4 F Artificial Tears 0 ml 08/16/16 14:00 08/22/16 09:24 Artificial Tears OU 2 drop QID JESSI Administration Latanoprost 0 ml 08/16/16 22:00 08/21/16 21:20 Xalatan Opht OU 2.5 ml HS JESSI Administration Megestrol Acetate 40 mg 08/16/16 10:00 08/22/16 09:25 Megace PO 40 mg DAILY JESSI Administration Methotrexate 2.5 mg 08/20/16 10:00 08/20/16 11:16 Methotrexate PO 2.5 mg QWK JESSI Administration Methylprednisolone 20 mg 08/20/16 18:00 08/22/16 09:24 Solu-Medrol IVP 20 mg Q12 JESSI Administration Nifedipine 30 mg 08/17/16 10:00 08/22/16 09:25 Procardia Xl PO 30 mg DAILY JESSI Administration Paricalcitol 1 mcg 08/16/16 18:00 08/21/16 12:46 Zemplar IV 08/28/16 10:01 1 mcg TTS JESSI Administration Saliva Substitute 5 ml 08/16/16 10:00 08/21/16 21:19 First Magic Mouthwash PO Not Given QID JESSI Valacyclovir HCl 500 mg 08/16/16 10:00 08/22/16 09:25 Valtrex PO 500 mg DAILY JESSI Administration Vitamin A 1 ea 08/20/16 18:00 08/22/16 09:25 Vitamin A & D Oint Ud Foilpak TOP 1 ea BID JESSI Administration - Patient Studies Lab Studies: Microbiology Studies 07/12/17 17:00 MRSA Culture (Admit) - Final Naris MRSA NOT DETECTED Lab Studies 08/22/16 08/22/16 08/22/16 Range/Units 06:47 06:47 04:00 WBC 9.7 (4.8-10.8) K/uL RBC 3.16 L (3.80-5.20) Mil/uL Hgb 10.2 L (11.0-16.0) g/dL Hct 31.9 L (34.0-47.0) % MCV 101.0 H (81.0-99.0) fL MCH 32.1 H (27.0-31.0) pg MCHC 31.8 L (33.0-37.0) g/dL RDW 18.5 H (11.5-14.5) % Plt Count 86 L (130-400) K/uL MPV 10.6 (7.2-11.7) fL Neut % (Auto) 87.5 H (50.0-75.0) % Lymph % (Auto) 9.6 L (20.0-40.0) % [place] % (Auto) 2.8 (0.0-10.0) % Eos % (Auto) 0.0 (0.0-4.0) % Baso % (Auto) 0.1 (0.0-2.0) % Neut # 8.5 H (1.8-7.0) K/uL Lymph # 0.9 L (1.0-4.3) K/uL [place] # 0.3 (0.0-0.8) K/uL Eos # 0.0 (0.0-0.7) K/uL Baso # 0.0 (0.0-0.2) K/uL Neutrophils % (Manual) 90 H (50-75) % Lymphocytes % (Manual) 8 L (20-40) % Monocytes % (Manual) 2 (0-10) % Platelet Estimate Decreased L (NORMAL) Hypochromasia (manual) Slight Poikilocytosis (manual Slight Anisocytosis (manual) Slight Microcytosis (manual) Slight Macrocytosis (manual) Slight Target Cells Slight PT 11.0 (9.7-12.2) SECONDS INR 1.0 APTT 25 (21-34) SECONDS Fibrinogen 211 (200-400) mg/dL Puncture Site pCO2 (35-45) mm/Hg pO2 (80-100) mm/Hg HCO3 (21-28) mmol/L ABG pH (7.35-7.45) ABG Total CO2 (22-28) mmol/L ABG O2 Saturation (95-98) % ABG Base Excess (-2.0-3.0) mmol/L ABG Hemoglobin (11.7-17.4) g/dL ABG Carboxyhemoglobin (0.5-1.5) % POC ABG HHb (Measured) (0.0-5.0) % ABG Methemoglobin (0.0-3.0) % Braxton Test A-a O2 Difference mm/Hg Respiratory Index Hgb O2 Saturation (95.0-98.0) % FiO2 % Sodium 140 (132-148) mmol/L Potassium 4.2 (3.6-5.2) mmol/L Chloride 96 L (98-107) mmol/L Carbon Dioxide 32 H (22-30) mmol/L Anion Gap 16 (10-20) BUN 26 H (7-17) mg/dL Creatinine 4.9 H (0.7-1.2) MG/DL Est GFR ( Amer) 10 Est GFR (Non-Af Amer) 9 Random Glucose 132 H (65-105) mg/dL Calcium 8.3 L (8.6-10.4) mg/dl Phosphorus 5.7 H (2.5-4.5) mg/dL Magnesium 2.2 (1.6-2.3) mg/dL Total Bilirubin 0.7 (0.2-1.3) mg/dL AST 33 (14-36) U/L ALT 36 (9-52) U/L Alkaline Phosphatase 83 (38-126) U/L Total Protein 5.5 L (6.3-8.3) g/dL Albumin 2.9 L (3.5-5.0) g/dL Globulin 2.6 (2.2-3.9) gm/dL Albumin/Globulin Ratio 1.1 (1.0-2.1) 08/21/16 Range/Units 13:58 WBC (4.8-10.8) K/uL RBC (3.80-5.20) Mil/uL Hgb (11.0-16.0) g/dL Hct (34.0-47.0) % MCV (81.0-99.0) fL MCH (27.0-31.0) pg MCHC (33.0-37.0) g/dL RDW (11.5-14.5) % Plt Count (130-400) K/uL MPV (7.2-11.7) fL Neut % (Auto) (50.0-75.0) % Lymph % (Auto) (20.0-40.0) % [place] % (Auto) (0.0-10.0) % Eos % (Auto) (0.0-4.0) % Baso % (Auto) (0.0-2.0) % Neut # (1.8-7.0) K/uL Lymph # (1.0-4.3) K/uL [place] # (0.0-0.8) K/uL Eos # (0.0-0.7) K/uL Baso # (0.0-0.2) K/uL Neutrophils % (Manual) (50-75) % Lymphocytes % (Manual) (20-40) % Monocytes % (Manual) (0-10) % Platelet Estimate (NORMAL) Hypochromasia (manual) Poikilocytosis (manual Anisocytosis (manual) Microcytosis (manual) Macrocytosis (manual) Target Cells PT (9.7-12.2) SECONDS INR APTT (21-34) SECONDS Fibrinogen (200-400) mg/dL Puncture Site L/f pCO2 32 L (35-45) mm/Hg pO2 58 L (80-100) mm/Hg HCO3 29.9 H (21-28) mmol/L ABG pH 7.56 H (7.35-7.45) ABG Total CO2 29.7 H (22-28) mmol/L ABG O2 Saturation 95.6 (95-98) % ABG Base Excess 6.5 H (-2.0-3.0) mmol/L ABG Hemoglobin 11.3 L (11.7-17.4) g/dL ABG Carboxyhemoglobin 2.6 H (0.5-1.5) % POC ABG HHb (Measured) 4.2 (0.0-5.0) % ABG Methemoglobin 1.2 (0.0-3.0) % Braxton Test N/a A-a O2 Difference 52.0 mm/Hg Respiratory Index 0.9 Hgb O2 Saturation 92.1 L (95.0-98.0) % FiO2 21.0 % Sodium (132-148) mmol/L Potassium (3.6-5.2) mmol/L Chloride (98-107) mmol/L Carbon Dioxide (22-30) mmol/L Anion Gap (10-20) BUN (7-17) mg/dL Creatinine (0.7-1.2) MG/DL Est GFR ( Amer) Est GFR (Non-Af Amer) Random Glucose (65-105) mg/dL Calcium (8.6-10.4) mg/dl Phosphorus (2.5-4.5) mg/dL Magnesium (1.6-2.3) mg/dL Total Bilirubin (0.2-1.3) mg/dL AST (14-36) U/L ALT (9-52) U/L Alkaline Phosphatase (38-126) U/L Total Protein (6.3-8.3) g/dL Albumin (3.5-5.0) g/dL Globulin (2.2-3.9) gm/dL Albumin/Globulin Ratio (1.0-2.1) Laboratory Results - last 24 hr 08/21/16 08/22/16 08/22/16 13:58 04:00 06:47 WBC 9.7 RBC 3.16 L Hgb 10.2 L Hct 31.9 L MCV 101.0 H MCH 32.1 H MCHC 31.8 L RDW 18.5 H Plt Count 86 L MPV 10.6 Neut % (Auto) 87.5 H Lymph % (Auto) 9.6 L [place] % (Auto) 2.8 Eos % (Auto) 0.0 Baso % (Auto) 0.1 Neut # 8.5 H Lymph # 0.9 L [place] # 0.3 Eos # 0.0 Baso # 0.0 Neutrophils % (Manual) 90 H Lymphocytes % (Manual) 8 L Monocytes % (Manual) 2 Platelet Estimate Decreased L Hypochromasia (manual) Slight Poikilocytosis (manual Slight Anisocytosis (manual) Slight Microcytosis (manual) Slight Macrocytosis (manual) Slight Target Cells Slight PT 11.0 INR 1.0 APTT 25 Fibrinogen 211 Puncture Site L/f pCO2 32 L pO2 58 L HCO3 29.9 H ABG pH 7.56 H ABG Total CO2 29.7 H ABG O2 Saturation 95.6 ABG Base Excess 6.5 H ABG Hemoglobin 11.3 L ABG Carboxyhemoglobin 2.6 H POC ABG HHb (Measured) 4.2 ABG Methemoglobin 1.2 Braxton Test N/a A-a O2 Difference 52.0 Respiratory Index 0.9 Hgb O2 Saturation 92.1 L FiO2 21.0 Sodium Potassium Chloride Carbon Dioxide Anion Gap BUN Creatinine Est GFR ( Amer) Est GFR (Non-Af Amer) Random Glucose Calcium Phosphorus Magnesium Total Bilirubin AST ALT Alkaline Phosphatase Total Protein Albumin Globulin Albumin/Globulin Ratio 08/22/16 06:47 WBC RBC Hgb Hct MCV MCH MCHC RDW Plt Count MPV Neut % (Auto) Lymph % (Auto) [place] % (Auto) Eos % (Auto) Baso % (Auto) Neut # Lymph # [place] # Eos # Baso # Neutrophils % (Manual) Lymphocytes % (Manual) Monocytes % (Manual) Platelet Estimate Hypochromasia (manual) Poikilocytosis (manual Anisocytosis (manual) Microcytosis (manual) Macrocytosis (manual) Target Cells PT INR APTT Fibrinogen Puncture Site pCO2 pO2 HCO3 ABG pH ABG Total CO2 ABG O2 Saturation ABG Base Excess ABG Hemoglobin ABG Carboxyhemoglobin POC ABG HHb (Measured) ABG Methemoglobin Braxton Test A-a O2 Difference Respiratory Index Hgb O2 Saturation FiO2 Sodium 140 Potassium 4.2 Chloride 96 L Carbon Dioxide 32 H Anion Gap 16 BUN 26 H Creatinine 4.9 H Est GFR ( Amer) 10 Est GFR (Non-Af Amer) 9 Random Glucose 132 H Calcium 8.3 L Phosphorus 5.7 H Magnesium 2.2 Total Bilirubin 0.7 AST 33 ALT 36 Alkaline Phosphatase 83 Total Protein 5.5 L Albumin 2.9 L Globulin 2.6 Albumin/Globulin Ratio 1.1 Review of Systems - Review of Systems Systems not reviewed;Unavailable: Altered Mental Status Critical Care Progress Note - Nutrition Nutrition: Nutrition Category Date Time Status Renal Diet [DIET] Diets 08/16/16 Dinner Active Assessment/Plan - Assessment and Plan (Free Text) Assessment: 80 year old female with a 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 Plan: Neuro: -Not alert not oriented - Neurology Consult: Dr. Sharma --> help appreciated - Psychiatry Consult: Dr. Rock --> help appreciated - R/O stroke - f/u Head CT Pulm: - O2 Nasal Cannula: 2L CV: - Cardiology Consult: Dr. Jules --> help appreciated - Cardiology Consult: Dr. Mclaughlin --> help appreciated - ECHO (07/23/16): Diastolic dysfunction; Left ventricle systolic function is severely impaired. Ejection fraction 15-20% - Life vest was placed on 08/06/16 Heme: Thrombotic thrombocytopenic purpura - Hematology/Oncology Consult: Dr. Montanez --> help appreciated - Reinitiate plasma exchange per Dr. Montanez x3 - received the first 08/20, second 08/21, and receiving the 3rd on 08/22 - H/H (08/22): 10.2/31.9; H/H (08/21): 11.7/37.2; H/H (08/20): 12.3/39.3 - Platelet Count: 86; 81; 73; 85; 58 - PT/INR (08/22): 11/1.0; PT/INR (08/21): 11.2/1; PT/INR (08/20): 11.6/1.0 - PTT (08/21): 20; PTT (08/20): 20 - Fibrinogen: 303 - f/u Haptoglobin , ADATS13 - f/u ABG ID: - HIV antibody: Negative Renal: - Renal Failure - BUN/Cr: 26/4.9 - Dialysis - Nephrology Consult: Dr. Graham --> help appreciated GI: - Renal Diet DVT proph - SCDs Code status - full code Case discussed with Dr. Levi Cunningham PGY-1 <Alessandro Sims - Last Filed: 08/22/16 16:49> CCU Objective - Vital Signs / Intake & Output Vital Signs (Last 4 hours): Vital Signs Temp Pulse Resp BP Pulse Ox 08/22/16 16:04 75 16 123/60 08/22/16 16:00 98.7 F 89 8 L 08/22/16 15:54 77 11 L 122/59 L 100 08/22/16 15:50 58 L 14 100 08/22/16 15:44 58 L 13 126/57 L 97 08/22/16 15:40 58 L 13 100 08/22/16 15:34 58 L 14 120/57 L 92 L 08/22/16 15:30 59 L 17 97 08/22/16 15:24 60 15 110/54 L 100 08/22/16 15:20 62 16 100 08/22/16 15:14 65 13 114/52 L 08/22/16 15:10 68 12 90 L 08/22/16 15:04 79 12 109/57 L 88 L 08/22/16 15:00 67 16 08/22/16 14:54 93 H 13 106/58 L 08/22/16 14:50 72 10 L 08/22/16 14:45 78 9 L 116/49 L 08/22/16 14:40 85 89 L 08/22/16 14:34 95 H 102/60 70 L 08/22/16 14:30 98 H 08/22/16 14:25 96 H 127/57 L 08/22/16 14:20 97 H 08/22/16 14:15 101 H 19 118/63 55 L 08/22/16 14:10 99 H 17 08/22/16 14:05 74 14 116/54 L 08/22/16 14:00 91 H 21 68 L 08/22/16 13:55 89 110/66 69 L 08/22/16 13:50 93 H 15 110/60 08/22/16 13:47 76 08/22/16 13:24 83 17 110/52 L 95 08/22/16 13:20 96 H 15 08/22/16 13:15 92 H 12 124/94 H 08/22/16 13:10 89 16 08/22/16 13:04 90 17 116/56 L 08/22/16 13:00 87 18 70 L Intake and Output (Last 8hrs): Intake & Output 08/22/16 08/22/16 08/22/16 06:59 14:59 22:59 Intake Total 1650 0 Output Total 0 Balance 1650 0 Weight 119 lb Intake: Oral 1650 0 Output: Oral Regurgitation 0 Other: # Voids Urine, Voided 0 0 0 # Bowel Movements 1 0 0 - Medications Active Medications: Active Medications Generic Name Dose Route Start Last Admin Trade Name Major PRN Reason Stop Dose Admin Acetaminophen 650 mg 08/16/16 03:42 Tylenol 325mg Tab PO Q6 PRN Fever >100.4 F Artificial Tears 0 ml 08/16/16 14:00 08/22/16 14:55 Artificial Tears OU 1 drop QID JESSI Administration Latanoprost 0 ml 08/16/16 22:00 08/21/16 21:20 Xalatan Opht OU 2.5 ml HS JESSI Administration Megestrol Acetate 40 mg 08/16/16 10:00 08/22/16 09:25 Megace PO 40 mg DAILY JESSI Administration Methotrexate 2.5 mg 08/20/16 10:00 08/20/16 11:16 Methotrexate PO 2.5 mg QWK JESSI Administration Methylprednisolone 20 mg 08/20/16 18:00 08/22/16 09:24 Solu-Medrol IVP 20 mg Q12 JESSI Administration Nifedipine 30 mg 08/17/16 10:00 08/22/16 09:25 Procardia Xl PO 30 mg DAILY JESSI Administration Paricalcitol 1 mcg 08/16/16 18:00 08/21/16 12:46 Zemplar IV 08/28/16 10:01 1 mcg TTS JESSI Administration Saliva Substitute 5 ml 08/16/16 10:00 08/22/16 14:00 First Magic Mouthwash PO Not Given QID JESSI Valacyclovir HCl 500 mg 08/16/16 10:00 08/22/16 09:25 Valtrex PO 500 mg DAILY JESSI Administration Vitamin A 1 ea 08/20/16 18:00 08/22/16 09:25 Vitamin A & D Oint Ud Foilpak TOP 1 ea BID JESSI Administration - Patient Studies Lab Studies: Microbiology Studies 08/20/16 17:00 MRSA Culture (Admit) - Final Naris MRSA NOT DETECTED Lab Studies 08/22/16 08/22/16 08/22/16 Range/Units 06:47 06:47 04:00 WBC 9.7 (4.8-10.8) K/uL RBC 3.16 L (3.80-5.20) Mil/uL Hgb 10.2 L (11.0-16.0) g/dL Hct 31.9 L (34.0-47.0) % MCV 101.0 H (81.0-99.0) fL MCH 32.1 H (27.0-31.0) pg MCHC 31.8 L (33.0-37.0) g/dL RDW 18.5 H (11.5-14.5) % Plt Count 86 L (130-400) K/uL MPV 10.6 (7.2-11.7) fL Neut % (Auto) 87.5 H (50.0-75.0) % Lymph % (Auto) 9.6 L (20.0-40.0) % [place] % (Auto) 2.8 (0.0-10.0) % Eos % (Auto) 0.0 (0.0-4.0) % Baso % (Auto) 0.1 (0.0-2.0) % Neut # 8.5 H (1.8-7.0) K/uL Lymph # 0.9 L (1.0-4.3) K/uL [place] # 0.3 (0.0-0.8) K/uL Eos # 0.0 (0.0-0.7) K/uL Baso # 0.0 (0.0-0.2) K/uL Neutrophils % (Manual) 90 H (50-75) % Lymphocytes % (Manual) 8 L (20-40) % Monocytes % (Manual) 2 (0-10) % Platelet Estimate Decreased L (NORMAL) Hypochromasia (manual) Slight Poikilocytosis (manual Slight Anisocytosis (manual) Slight Microcytosis (manual) Slight Macrocytosis (manual) Slight Target Cells Slight PT 11.0 (9.7-12.2) SECONDS INR 1.0 APTT 25 (21-34) SECONDS Fibrinogen 211 (200-400) mg/dL Sodium 140 (132-148) mmol/L Potassium 4.2 (3.6-5.2) mmol/L Chloride 96 L (98-107) mmol/L Carbon Dioxide 32 H (22-30) mmol/L Anion Gap 16 (10-20) BUN 26 H (7-17) mg/dL Creatinine 4.9 H (0.7-1.2) MG/DL Est GFR ( Amer) 10 Est GFR (Non-Af Amer) 9 Random Glucose 132 H (65-105) mg/dL Calcium 8.3 L (8.6-10.4) mg/dl Phosphorus 5.7 H (2.5-4.5) mg/dL Magnesium 2.2 (1.6-2.3) mg/dL Total Bilirubin 0.7 (0.2-1.3) mg/dL AST 33 (14-36) U/L ALT 36 (9-52) U/L Alkaline Phosphatase 83 (38-126) U/L Total Protein 5.5 L (6.3-8.3) g/dL Albumin 2.9 L (3.5-5.0) g/dL Globulin 2.6 (2.2-3.9) gm/dL Albumin/Globulin Ratio 1.1 (1.0-2.1) Laboratory Results - last 24 hr 08/22/16 08/22/16 08/22/16 04:00 06:47 06:47 WBC 9.7 RBC 3.16 L Hgb 10.2 L Hct 31.9 L MCV 101.0 H MCH 32.1 H MCHC 31.8 L RDW 18.5 H Plt Count 86 L MPV 10.6 Neut % (Auto) 87.5 H Lymph % (Auto) 9.6 L [place] % (Auto) 2.8 Eos % (Auto) 0.0 Baso % (Auto) 0.1 Neut # 8.5 H Lymph # 0.9 L [place] # 0.3 Eos # 0.0 Baso # 0.0 Neutrophils % (Manual) 90 H Lymphocytes % (Manual) 8 L Monocytes % (Manual) 2 Platelet Estimate Decreased L Hypochromasia (manual) Slight Poikilocytosis (manual Slight Anisocytosis (manual) Slight Microcytosis (manual) Slight Macrocytosis (manual) Slight Target Cells Slight PT 11.0 INR 1.0 APTT 25 Fibrinogen 211 Sodium 140 Potassium 4.2 Chloride 96 L Carbon Dioxide 32 H Anion Gap 16 BUN 26 H Creatinine 4.9 H Est GFR ( Amer) 10 Est GFR (Non-Af Amer) 9 Random Glucose 132 H Calcium 8.3 L Phosphorus 5.7 H Magnesium 2.2 Total Bilirubin 0.7 AST 33 ALT 36 Alkaline Phosphatase 83 Total Protein 5.5 L Albumin 2.9 L Globulin 2.6 Albumin/Globulin Ratio 1.1 Critical Care Progress Note - Nutrition Nutrition: Nutrition Category Date Time Status Renal Diet [DIET] Diets 08/16/16 Dinner Active Attending/Attestation - Attestation I have personally seen and examined this patient.: Yes I have fully participated in the care of the patient.: Yes I have reviewed all pertinent clinical information: Yes Notes (Text): 08/22/16 16:47 I have seen and examined the patient. Medical records, lab studies, and imaging were reviewed by me and a management plan was formulated on multidisciplinary rounds with resident Dr. Cunningham. I agree with their above documented assessment and plan. Patient is alert but does not follow commands, disoriented to person, place and time. ICU delirium, prolonged hospitalization. OOB to chair, physical therapy. Head CT shows no acute infarcts. Should consider MRI if patient doesn 't improve. Tolerating Dialysis and plasmaspheresis. All issues now chronic, stable for downgrade to the floors. Critical Care Time 35 minutes. Multi-disciplinary rounds were performed with house staff, nursing, speech therapy, respiratory therapy, pharmacy and nutrition with integrated input from the primary team/attending and other consulting services. The documented time is cumulative and includes review of patient data/exams/labs/chart review and examination of the patient on rounds and throughout the day; time is exclusive of any procedures or teaching time.
[2016-08-22] MEDS ORDERED: Sodium Chloride 0.9% 1,000 ML IV SCH (12:15)
--- NOTE | 2016-08-22 12:53 | CP.PCM.CON ---
<Dontrell Taylor S - Last Filed: 08/22/16 16:07> History of Present Illness - History of Present Illness History of Present Illness: Reconsulted for clarification on life vest. Past Patient History - Past Medical History & Family History Past Medical History?: Yes - Past Social History Smoking Status: Never Smoked - CARDIAC Hx Hypertension: Yes - PULMONARY Hx Respiratory Disorders: No - NEUROLOGICAL Hx Neurological Disorder: Yes Hx Dementia: Yes - HEENT Hx HEENT Problems: Yes - RENAL Date of Last Dialysis Treatment: 08/14/16 - ENDOCRINE/METABOLIC Hx Diabetes Mellitus Type 2: Yes - HEMATOLOGICAL/ONCOLOGICAL Hx Anemia: Yes - INTEGUMENTARY Hx Dermatological Problems: Yes (generalized pruritus) - MUSCULOSKELETAL/RHEUMATOLOGICAL Hx Falls: No - GASTROINTESTINAL Hx Gastrointestinal Disorders: No - GENITOURINARY/GYNECOLOGICAL Hx Genitourinary Disorders: No - PSYCHIATRIC Hx Substance Use: No - SURGICAL HISTORY Hx Surgeries: Yes Other/Comment: 1993 THYROID SX - ANESTHESIA Hx Anesthesia: Yes Hx Anesthesia Reactions: No Hx Malignant Hyperthermia: No Meds Allergies/Adverse Reactions: Allergies Allergy/AdvReac Type Severity Reaction Status Date / Time No Known Allergies Allergy Verified 08/16/16 01:13 - Medications Medications: Current Medications Acetaminophen (Tylenol 325mg Tab) 650 mg PO Q6 PRN PRN Reason: Fever >100.4 F Artificial Tears (Artificial Tears) 0 ml OU QID [facility] Last Admin: 08/22/16 09:24 Dose: 2 drop Latanoprost (Xalatan Opht) 0 ml OU HS [facility] Last Admin: 08/21/16 21:20 Dose: 2.5 ml Megestrol Acetate (Megace) 40 mg PO DAILY [facility] Last Admin: 08/22/16 09:25 Dose: 40 mg Methotrexate (Methotrexate) 2.5 mg PO QWK [facility] Last Admin: 08/20/16 11:16 Dose: 2.5 mg Methylprednisolone (Solu-Medrol) 20 mg IVP Q12 [facility] Last Admin: 08/22/16 09:24 Dose: 20 mg Nifedipine (Procardia Xl) 30 mg PO DAILY [facility] Last Admin: 08/22/16 09:25 Dose: 30 mg Paricalcitol (Zemplar) 1 mcg IV TTS [facility] Stop: 08/28/16 10:01 Last Admin: 08/21/16 12:46 Dose: 1 mcg Saliva Substitute (First Magic Mouthwash) 5 ml PO QID [facility] Last Admin: 08/21/16 21:19 Dose: Not Given Valacyclovir HCl (Valtrex) 500 mg PO DAILY [facility] Last Admin: 08/22/16 09:25 Dose: 500 mg Vitamin A (Vitamin A & D Oint Ud Foilpak) 1 ea TOP BID [facility] Last Admin: 08/22/16 09:25 Dose: 1 ea Results - Vital Signs Recent Vital Signs: Last Vital Signs Temp 97.5 F L 08/22/16 04:00 Pulse 99 H 08/22/16 11:20 Resp 15 08/22/16 11:20 BP 114/57 L 08/22/16 11:19 Pulse Ox 78 L 08/22/16 11:20 - Labs Result Diagrams: 08/22/16 06:47 08/22/16 06:47 Labs: Laboratory Results - last 24 hr 08/21/16 08/22/16 08/22/16 13:58 04:00 06:47 WBC 9.7 RBC 3.16 L Hgb 10.2 L Hct 31.9 L MCV 101.0 H MCH 32.1 H MCHC 31.8 L RDW 18.5 H Plt Count 86 L MPV 10.6 Neut % (Auto) 87.5 H Lymph % (Auto) 9.6 L [place] % (Auto) 2.8 Eos % (Auto) 0.0 Baso % (Auto) 0.1 Neut # 8.5 H Lymph # 0.9 L [place] # 0.3 Eos # 0.0 Baso # 0.0 Neutrophils % (Manual) 90 H Lymphocytes % (Manual) 8 L Monocytes % (Manual) 2 Platelet Estimate Decreased L Hypochromasia (manual) Slight Poikilocytosis (manual Slight Anisocytosis (manual) Slight Microcytosis (manual) Slight Macrocytosis (manual) Slight Target Cells Slight PT 11.0 INR 1.0 APTT 25 Fibrinogen 211 Puncture Site L/f pCO2 32 L pO2 58 L HCO3 29.9 H ABG pH 7.56 H ABG Total CO2 29.7 H ABG O2 Saturation 95.6 ABG Base Excess 6.5 H ABG Hemoglobin 11.3 L ABG Carboxyhemoglobin 2.6 H POC ABG HHb (Measured) 4.2 ABG Methemoglobin 1.2 Braxton Test N/a A-a O2 Difference 52.0 Respiratory Index 0.9 Hgb O2 Saturation 92.1 L FiO2 21.0 Sodium Potassium Chloride Carbon Dioxide Anion Gap BUN Creatinine Est GFR ( Amer) Est GFR (Non-Af Amer) Random Glucose Calcium Phosphorus Magnesium Total Bilirubin AST ALT Alkaline Phosphatase Total Protein Albumin Globulin Albumin/Globulin Ratio 08/22/16 06:47 WBC RBC Hgb Hct MCV MCH MCHC RDW Plt Count MPV Neut % (Auto) Lymph % (Auto) Cata[place] % (Auto) Eos % (Auto) Baso % (Auto) Neut # Lymph # [place]ata[place] # Eos # Baso # Neutrophils % (Manual) Lymphocytes % (Manual) Monocytes % (Manual) Platelet Estimate Hypochromasia (manual) Poikilocytosis (manual Anisocytosis (manual) Microcytosis (manual) Macrocytosis (manual) Target Cells PT INR APTT Fibrinogen Puncture Site pCO2 pO2 HCO3 ABG pH ABG Total CO2 ABG O2 Saturation ABG Base Excess ABG Hemoglobin ABG Carboxyhemoglobin POC ABG HHb (Measured) ABG Methemoglobin Braxton Test A-a O2 Difference Respiratory Index Hgb O2 Saturation FiO2 Sodium 140 Potassium 4.2 Chloride 96 L Carbon Dioxide 32 H Anion Gap 16 BUN 26 H Creatinine 4.9 H Est GFR ( Amer) 10 Est GFR (Non-Af Amer) 9 Random Glucose 132 H Calcium 8.3 L Phosphorus 5.7 H Magnesium 2.2 Total Bilirubin 0.7 AST 33 ALT 36 Alkaline Phosphatase 83 Total Protein 5.5 L Albumin 2.9 L Globulin 2.6 Albumin/Globulin Ratio 1.1 Assessment & Plan - Assessment and Plan (Free Text) Plan: Life vest was placed on 08/06/[address] Jules, should remain in place for three months and EF will be reassessed at that time. If EF is under 35%, consider ICD. Thank you for your consult. We will sign off. Please consult as needed. Case discussed with Dr. Jules <Geo Jules - Last Filed: 10/13/16 23:21> Meds - Medications Medications: Current Medications Benzocaine (Anbesol) 1 ml MM TID [facility] Last Admin: 10/13/16 17:33 Dose: 1 ml Epoetin Herve (Procrit) 10,000 unit SC TTS [facility] Last Admin: 10/11/16 10:41 Dose: 10,000 unit Latanoprost (Xalatan Opht) 0 ml OU HS [facility] Last Admin: 10/13/16 21:10 Dose: 2.5 ml Megestrol Acetate (Megace) 40 mg PO DAILY [facility] Last Admin: 10/13/16 10:03 Dose: 40 mg Paricalcitol (Zemplar) 1 mcg IV TTS [facility] Last Admin: 10/11/16 10:42 Dose: 1 mcg Saliva Substitute (First Magic Mouthwash) 5 ml PO QID PRN PRN Reason: sore mouth Last Admin: 10/01/16 20:34 Dose: 5 ml Vitamin B Complex/Vit C/Folic Acid (Nephro-Andrea) 1 tab PO 0800 [facility] Last Admin: 10/13/16 10:02 Dose: 1 tab Results - Vital Signs Recent Vital Signs: Last Vital Signs Temp 99.1 F 10/13/16 15:00 Pulse 98 H 10/13/16 15:00 Resp 20 10/13/16 15:00 BP 111/65 10/13/16 15:00 Pulse Ox 98 10/13/16 15:00 - Labs Result Diagrams: 10/10/16 07:58 10/09/16 10:22 Assessment & Plan (1) Cardiac dysrhythmia Status: Acute (2) CHF (congestive heart failure) Status: Acute Attending/Attestation - Attestation I have personally seen and examined this patient.: Yes I have fully participated in the care of the patient.: Yes I have reviewed all pertinent clinical information: Yes Notes (Text): 10/13/16 23:20 continue chf treatment
--- NOTE | 2016-08-22 14:14 | CT ---
PROCEDURE: CT HEAD WITHOUT CONTRAST. HISTORY: r/o stroke hx of TTP COMPARISON: None available. TECHNIQUE: Axial computed tomography images were obtained through the head/brain without intravenous contrast. Radiation dose: Total exam DLP = 3617 mGy-cm. This CT exam was performed using one or more of the following dose reduction techniques: Automated exposure control, adjustment of the mA and/or kV according to patient size, and/or use of iterative reconstruction technique. FINDINGS: HEMORRHAGE: No intracranial hemorrhage. BRAIN: No mass effect or edema. Expanded ventricular sulcal and cisternal spaces are identified compatible with diffuse cerebral atrophy further, periventricular white matter lucency is appreciated compatible with chronic microangiopathy. 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 VENTRICLES: No hydrocephalus. CALVARIUM: Unremarkable. No fracture identified. PARANASAL SINUSES: Unremarkable as visualized. No significant inflammatory changes. MASTOID AIR CELLS: Unremarkable as visualized. No inflammatory changes. OTHER FINDINGS: None. IMPRESSION: Age-related degenerate change identified without acute intracranial findings as discussed above. Multiple chronic lacunes are seen the bilateral basal ganglia and the left thalamus. Follow-up CT or MRI are available if clinically warranted.
--- NOTE | 2016-08-22 17:07 | CON ---
RENAL FOLLOWUP CONSULTATION DATE:08/21/2016 LOCATION: The patient is located in ICU bed 8. REQUESTING PHYSICIAN: Dr. 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 SUBJECTIVE: Ms. Denise Garcia is an 80-year-old elderly female with a past medical history significant for hypertension and arthritis who recently came from the [facility] who was initially admitted about a month ago with nausea, vomiting, and altered mental status and found to have increased BUN and creatinine and thrombocytopenia. Subsequently, the patient was diagnosed with TTP, requiring plasmapheresis and also found to have cardiomyopathy, CHF, and respiratory failure and intubated and subsequently the patient was extubated and also her hospital course complicated by worsening renal function, requiring initiation of hemodialysis. The patient was discharged last week after dialysis and the patient was readmitted on Thursday with chief complaints of leakage of LifeVest and the patient was found to have worsening mental status and confusion and restlessness. The patient was evaluated by cable television installer, Dr. Montanez yesterday and transferred back to ICU from the medical floor for the initiation of the plasmapheresis for the relapse of TTP. The patient is more alert, awake, and following commands appropriately and able to eat by mouth during dramatic improvement in patient's condition in the last 48 hours. The patient is not in any acute distress. PHYSICAL EXAMINATION: GENERAL: Ms. Denise Garcia is an 80-year-old elderly female, moderately built, moderately nourished, and not in distress. VITAL SIGNS: As follows; blood pressure 144/75, pulse 56, respirations 18, saturation 100%, and temperature 97.6. HEENT: Pupils normal and reactive to light and accommodation. Conjunctivae pink. Sclerae anicteric. Tongue is moist. Trachea is midline. CARDIOVASCULAR: S1 and S2 audible. No murmur or gallop. LUNGS: Symmetric on both sides, bilateral breath sounds present, clear to auscultation. ABDOMEN: Normal in appearance, soft, and tympanic. No guarding. No rigidity. No hepatosplenomegaly. CENTRAL NERVOUS SYSTEM: The patient is more alert, awake, and following commands appropriately and oriented x2. EXTREMITIES: No cyanosis. No clubbing. No edema. CURRENT MEDICATIONS: Include as follows; Benadryl 50 mg IV x1, Megace 40 mg p.o. daily, methotrexate 2.5 mg p.o. every weekly, nifedipine ER 30 mg p.o. daily, and methylprednisolone 100 mg x1 with plasmapheresis daily, and Tylenol and also acyclovir 400 mg p.o. daily and vitamin 1 p.o. b.i.d. and Zemplar 1 mcg IV 3 times a week. LABORATORY DATA: Include as follows; as of 07/22/2016 ; WBC 6.7, hemoglobin 11.7, hematocrit 37.2, and platelets 81. PT 11.2 and PTT 27. ABG; pH of 7.56, PCO2 of 32, PO2 of 58, saturation 95.6, and bicarbonate is 29.9. Sodium 136, potassium 4.4, chloride 95, CO2 of 28, BUN 38, creatinine 8.0, and glucose 132, calcium 8.2, phosphorous 5.8, magnesium 2.1, total bilirubin 0.8, AST 33, ALT 22, and alkaline phosphatase 86. Total protein 6 and albumin 3.0. HIV 1 and 2 antibody screening was negative. MRSA screening was negative as of 08/20/2016 and also on 08/18/2016 negative and 08/16/2016 MRSA screening was negative. ASSESSMENT AND PLAN: Ms. Denise Garcia is an 80 years old elderly female with history of hypertension, arthritis, thrombocytopenia, renal failure, dependent on hemodialysis for the last 3 weeks and was transferred from the medical floor to ICU for initiation of plasmapheresis for relapse of TTP. The patient is more alert and awake since plasmapheresis was initiated. 1. Renal failure, acute on chronic kidney disease, etiology is not clear, ATN versus thrombotic microangiopathy cannot be ruled out. 2. Hypertension, blood pressure is stable. 3. Thrombocytopenia, possible TTP, continue plasmapheresis as per the hematology recommendations. Follow up CBC and BMP in a.m. Patient's mental status is much better today and clinically more stable. Thank you for allowing me to participate in your patient's care. Horacio Graham MD [facility]
[2016-08-22] MEDS: Vancomycin 125 MG/5 ML SOLN (ORAL/RECTAL) PO SCH (21:44)
[2016-08-22] MEDS: Latanoprost 2.5 ml Opht Soln OU SCH (21:44)
[2016-08-23] MEDS: Vancomycin 125 MG/5 ML SOLN (ORAL/RECTAL) PO SCH ×4 (03:00→21:56)
--- NOTE | 2016-08-23 06:34 | CP.PCM.PN ---
Subjective - Date & Time of Evaluation Date of Evaluation: 08/23/16 Time of Evaluation: 06:33 - Subjective Subjective: no change agitated Objective - Vital Signs/Intake and Output Vital Signs (last 24 hours): Temp Pulse Resp BP Pulse Ox 98.7 F 56 L 11 L 140/64 96 08/22/16 16:00 08/23/16 02:04 08/23/16 02:04 08/23/16 02:05 08/23/16 02:00 Intake and Output: 08/22/16 08/23/16 18:59 06:59 Intake Total 1650 Output Total 0 Balance 1650 - Medications Medications: Current Medications Acetaminophen (Tylenol 325mg Tab) 650 mg PO Q6 PRN PRN Reason: Fever >100.4 F Artificial Tears (Artificial Tears) 0 ml OU QID [facility] Last Admin: 08/22/16 21:43 Dose: 2 drop Latanoprost (Xalatan Opht) 0 ml OU HS [facility] Last Admin: 08/22/16 21:44 Dose: 2.5 ml Megestrol Acetate (Megace) 40 mg PO DAILY [facility] Last Admin: 08/22/16 09:25 Dose: 40 mg Methotrexate (Methotrexate) 2.5 mg PO QWK [facility] Last Admin: 08/20/16 11:16 Dose: 2.5 mg Methylprednisolone (Solu-Medrol) 20 mg IVP Q12 [facility] Last Admin: 08/22/16 21:21 Dose: Not Given Nifedipine (Procardia Xl) 30 mg PO DAILY [facility] Last Admin: 08/22/16 09:25 Dose: 30 mg Paricalcitol (Zemplar) 1 mcg IV TTS [facility] Stop: 08/28/16 10:01 Last Admin: 08/21/16 12:46 Dose: 1 mcg Saliva Substitute (First Magic Mouthwash) 5 ml PO QID [facility] Last Admin: 08/22/16 21:23 Dose: Not Given Valacyclovir HCl (Valtrex) 500 mg PO DAILY [facility] Last Admin: 08/22/16 09:25 Dose: 500 mg Vancomycin HCl (Vancocin (Oral Or Rectal Use)) 250 mg PO Q6H [facility] Last Admin: 08/23/16 03:00 Dose: 250 mg Vitamin A (Vitamin A & D Oint Ud Foilpak) 1 ea TOP BID [facility] Last Admin: 08/22/16 17:25 Dose: 1 ea - Labs Labs: 08/22/16 06:47 08/22/16 06:47 PT 11.0 SECONDS (9.7-12.2) 08/22/16 04:00 INR 1.0 08/22/16 04:00 APTT 25 SECONDS (21-34) 08/22/16 04:00 - Constitutional Appears: Chronically Ill - Head Exam Head Exam: NORMOCEPHALIC - Eye Exam Eye Exam: Normal appearance - ENT Exam ENT Exam: Mucous Membranes Moist - Respiratory Exam Respiratory Exam: Rhonchi - Cardiovascular Exam Cardiovascular Exam: Murmur - GI/Abdominal Exam GI & Abdominal Exam: Soft, Normal Bowel Sounds - Exam External exam: Swelling - Extremities Exam Extremities Exam: Pedal Edema - Neurological Exam Neurological Exam: Awake - Psychiatric Exam Psychiatric exam: Agitated - Skin Skin Exam: Warm Assessment and Plan (1) CHF (congestive heart failure) Assessment & Plan: limit fluids continue coreg for arrhthmia continue chf treatment Status: Acute
[2016-08-23] MEDS ORDERED: DiphenhydrAMINE 50 mg/ml Inj IVP ONE (06:39)
[2016-08-23] MEDS ORDERED: SODIUM CHLORIDE 0.9% IV ONE (06:45)
[2016-08-23] MEDS ORDERED: SODIUM BICARBONATE IV ONE (06:45)
[2016-08-23] MEDS ORDERED: Calcium Gluconate 9.3 MEQ in Sodium Chloride 0.9% 250 ML IV ONE (06:48)
[2016-08-23 07:05] LABS: BILIRUBIN,TOTAL 1.4 mg/dL (0.2-1.3)
[2016-08-23 07:06] LABS: CALCIUM 7.3 mg/dl (8.6-10.4); PHOSPHOROUS 5.8 mg/dL (2.5-4.5); TOTAL PROTEIN 5.7 g/dL (6.3-8.3)
[2016-08-23 07:24] LABS: POTASSIUM 5.7 mmol/L (3.6-5.2)
[2016-08-23 08:48] LABS: BASO % 0.2 % (0.0-2.0); EOS % 0.1 % (0.0-4.0); HEMATOCRIT 28.7 % (34.0-47.0); LYMPH # 0.8 K/uL (1.0-4.3); LYMPH % 6.9 % (20.0-40.0); MEAN CELL VOLUME 101.1 fL (81.0-99.0); MEAN CORPUSCULAR HEMOGLOBIN 32.1 pg (27.0-31.0); MEAN CORPUSCULAR HGB CONC 31.7 g/dL (33.0-37.0); MEAN PLATELET VOLUME 10.6 fL (7.2-11.7); MONO # 0.4 K/uL (0.0-0.8); MONO % 3.6 % (0.0-10.0); NRBC % 0.1 % (0.0-2.0); PLATELET COUNT 104 K/uL (130-400); RED CELL DISTRIBUTION WIDTH 18.1 % (11.5-14.5); WHITE BLOOD COUNT 11.7 K/uL (4.8-10.8)
[2016-08-23] MEDS: MethylPREDNISolone 40 mg Vial IVP SCH ×2 (11:01→21:56)
[2016-08-23] MEDS: Aritificial Tears (15ml) OU SCH ×4 (11:01→21:56)
[2016-08-23] MEDS: Vitamins A & D Oint UD Foilpak TOP SCH ×2 (11:02→17:10)
[2016-08-23] MEDS: Mag&Al/Simet/Diphen/Lido 237 ML KIT PO SCH ×4 (11:02→21:56)
[2016-08-23 12:12] LABS: NEUTROPHIL 91 % (50-75); TOTAL CELLS COUNTED 100
--- NOTE | 2016-08-23 14:47 | CP.PCM.PN ---
Subjective - Date & Time of Evaluation Date of Evaluation: 08/23/16 Time of Evaluation: 12:20 - Subjective Subjective: clinically same Objective - Vital Signs/Intake and Output Vital Signs (last 24 hours): Temp Pulse Resp BP Pulse Ox 98.6 F 75 13 163/83 H 96 08/23/16 12:00 08/23/16 14:30 08/23/16 14:30 08/23/16 13:38 08/23/16 14:30 - Medications Medications: Current Medications Acetaminophen (Tylenol 325mg Tab) 650 mg PO Q6 PRN PRN Reason: Fever >100.4 F Artificial Tears (Artificial Tears) 0 ml OU QID [facility] Last Admin: 08/23/16 13:19 Dose: 1 drop Latanoprost (Xalatan Opht) 0 ml OU HS [facility] Last Admin: 08/22/16 21:44 Dose: 2.5 ml Megestrol Acetate (Megace) 40 mg PO DAILY [facility] Last Admin: 08/23/16 12:43 Dose: 40 mg Methotrexate (Methotrexate) 2.5 mg PO QWK [facility] Last Admin: 08/20/16 11:16 Dose: 2.5 mg Methylprednisolone (Solu-Medrol) 20 mg IVP Q12 [facility] Last Admin: 08/23/16 11:01 Dose: Not Given Nifedipine (Procardia Xl) 30 mg PO DAILY [facility] Last Admin: 08/22/16 09:25 Dose: 30 mg Paricalcitol (Zemplar) 1 mcg IV TTS [facility] Stop: 08/28/16 10:01 Last Admin: 08/21/16 12:46 Dose: 1 mcg Saliva Substitute (First Magic Mouthwash) 5 ml PO QID [facility] Last Admin: 08/23/16 13:06 Dose: 5 ml Valacyclovir HCl (Valtrex) 500 mg PO DAILY [facility] Last Admin: 08/23/16 13:04 Dose: 500 mg Vancomycin HCl (Vancocin (Oral Or Rectal Use)) 250 mg PO Q6H [facility] Last Admin: 08/23/16 12:41 Dose: 250 mg Vitamin A (Vitamin A & D Oint Ud Foilpak) 1 ea TOP BID [facility] Last Admin: 08/23/16 11:02 Dose: 1 ea - Labs Labs: 08/23/16 08:44 08/23/16 06:45 PT 11.0 SECONDS (9.7-12.2) 08/23/16 08:44 INR 1.0 08/23/16 08:44 APTT 21 SECONDS (21-34) 08/23/16 08:44 Assessment and Plan (1) Cardiac dysrhythmia Status: Acute (2) ESRD (end stage renal disease) on dialysis Status: Acute (3) Pulmonary edema Status: Acute (4) MARCO (acute kidney injury) Status: Acute (5) Acute respiratory failure requiring reintubation Status: Acute (6) Arthritis Status: Acute (7) CHF (congestive heart failure) Status: Acute (8) Dehydration Status: Acute (9) Dehydration Status: Acute (10) Diverticulosis Status: Acute (11) Elevated CEA Status: Acute (12) Hypertension Status: Acute (13) Inguinal lymphadenopathy Status: Acute (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
--- NOTE | 2016-08-23 16:03 | CP.PCM.PN ---
Subjective - Date & Time of Evaluation Date of Evaluation: 08/23/16 Time of Evaluation: 16:03 - Subjective Subjective: follow up consult is dictated #[id number] pt seen and examined during hd, uf gaol is 1lit, s/p haladol for agitation Objective - Vital Signs/Intake and Output Vital Signs (last 24 hours): Temp Pulse Resp BP Pulse Ox 98.6 F 89 21 130/91 H 64 L 08/23/16 12:00 08/23/16 15:23 08/23/16 15:23 08/23/16 15:23 08/23/16 15:23 - Medications Medications: Current Medications Acetaminophen (Tylenol 325mg Tab) 650 mg PO Q6 PRN PRN Reason: Fever >100.4 F Artificial Tears (Artificial Tears) 0 ml OU QID [facility] Last Admin: 08/23/16 13:19 Dose: 1 drop Latanoprost (Xalatan Opht) 0 ml OU HS [facility] Last Admin: 08/22/16 21:44 Dose: 2.5 ml Megestrol Acetate (Megace) 40 mg PO DAILY [facility] Last Admin: 08/23/16 12:43 Dose: 40 mg Methotrexate (Methotrexate) 2.5 mg PO QWK [facility] Last Admin: 08/20/16 11:16 Dose: 2.5 mg Methylprednisolone (Solu-Medrol) 20 mg IVP Q12 [facility] Last Admin: 08/23/16 11:01 Dose: Not Given Nifedipine (Procardia Xl) 30 mg PO DAILY [facility] Last Admin: 08/22/16 09:25 Dose: 30 mg Paricalcitol (Zemplar) 1 mcg IV TTS [facility] Stop: 08/28/16 10:01 Last Admin: 08/21/16 12:46 Dose: 1 mcg Saliva Substitute (First Magic Mouthwash) 5 ml PO QID [facility] Last Admin: 08/23/16 13:06 Dose: 5 ml Valacyclovir HCl (Valtrex) 500 mg PO DAILY [facility] Last Admin: 08/23/16 13:04 Dose: 500 mg Vancomycin HCl (Vancocin (Oral Or Rectal Use)) 250 mg PO Q6H [facility] Last Admin: 08/23/16 12:41 Dose: 250 mg Vitamin A (Vitamin A & D Oint Ud Foilpak) 1 ea TOP BID [facility] Last Admin: 08/23/16 11:02 Dose: 1 ea - Labs Labs: 08/23/16 08:44 08/23/16 06:45 PT 11.0 SECONDS (9.7-12.2) 08/23/16 08:44 INR 1.0 08/23/16 08:44 APTT 21 SECONDS (21-34) 08/23/16 08:44
[2016-08-23] MEDS: NIFEdipine 30 mg ER Tab PO SCH (16:52)
[2016-08-23] MEDS: Paricalcitol 2 mcg/ml Inj IV SCH (17:32)
[2016-08-23] MEDS: Latanoprost 2.5 ml Opht Soln OU SCH (21:56)
[2016-08-24] MEDS: Vancomycin 125 MG/5 ML SOLN (ORAL/RECTAL) PO SCH ×4 (04:20→21:03)
[2016-08-24 06:09] LABS: BASO % 0.1 % (0.0-2.0); EOS % 0.1 % (0.0-4.0); HEMATOCRIT 28.6 % (34.0-47.0); LYMPH # 0.8 K/uL (1.0-4.3); LYMPH % 6.7 % (20.0-40.0); MEAN CELL VOLUME 101.8 fL (81.0-99.0); MEAN CORPUSCULAR HEMOGLOBIN 31.5 pg (27.0-31.0); MEAN PLATELET VOLUME 10.5 fL (7.2-11.7); MONO # 0.6 K/uL (0.0-0.8); MONO % 4.9 % (0.0-10.0); PLATELET COUNT 110 K/uL (130-400); RED CELL DISTRIBUTION WIDTH 18.2 % (11.5-14.5)
[2016-08-24 06:23] LABS: BILIRUBIN,TOTAL 0.7 mg/dL (0.2-1.3); CALCIUM 7.6 mg/dl (8.6-10.4); MAGNESIUM 1.9 mg/dL (1.6-2.3); PHOSPHOROUS 3.8 mg/dL (2.5-4.5); POTASSIUM 3.5 mmol/L (3.6-5.2); TOTAL PROTEIN 5.2 g/dL (6.3-8.3)
[2016-08-24 06:35] LABS: ALB/GLOB RATIO 1.1 (1.0-2.1)
[2016-08-24 08:24] LABS: NEUTROPHIL 85 % (50-75); TOTAL CELLS COUNTED 100
[2016-08-24] MEDS: Aritificial Tears (15ml) OU SCH ×4 (10:13→21:02)
[2016-08-24] MEDS: NIFEdipine 30 mg ER Tab PO SCH (10:15)
[2016-08-24] MEDS: Vitamins A & D Oint UD Foilpak TOP SCH ×2 (10:23→17:26)
[2016-08-24] MEDS: MethylPREDNISolone 40 mg Vial IVP SCH ×2 (10:27→21:03)
[2016-08-24] MEDS: Mag&Al/Simet/Diphen/Lido 237 ML KIT PO SCH ×5 (10:31→21:03)
[2016-08-24] MEDS: Latanoprost 2.5 ml Opht Soln OU SCH (21:03)
--- NOTE | 2016-08-24 21:28 | CP.PCM.PN ---
Subjective - Date & Time of Evaluation Date of Evaluation: 08/24/16 Time of Evaluation: 11:45 - Subjective Subjective: clinically same Objective - Vital Signs/Intake and Output Vital Signs (last 24 hours): Temp Pulse Resp BP Pulse Ox 97.7 F 109 H 15 128/73 99 08/24/16 20:00 08/24/16 21:00 08/24/16 21:00 08/24/16 20:26 08/24/16 21:00 - Medications Medications: Current Medications Acetaminophen (Tylenol 325mg Tab) 650 mg PO Q6 PRN PRN Reason: Fever >100.4 F Artificial Tears (Artificial Tears) 0 ml OU QID [facility] Last Admin: 08/24/16 21:02 Dose: 1 drop Latanoprost (Xalatan Opht) 0 ml OU HS [facility] Last Admin: 08/24/16 21:03 Dose: 2.5 ml Megestrol Acetate (Megace) 40 mg PO DAILY [facility] Last Admin: 08/24/16 10:14 Dose: 40 mg Methotrexate (Methotrexate) 2.5 mg PO QWK [facility] Last Admin: 08/20/16 11:16 Dose: 2.5 mg Methylprednisolone (Solu-Medrol) 20 mg IVP Q12 [facility] Last Admin: 08/24/16 21:03 Dose: 20 mg Nifedipine (Procardia Xl) 30 mg PO DAILY [facility] Last Admin: 08/24/16 10:15 Dose: 30 mg Paricalcitol (Zemplar) 1 mcg IV TTS [facility] Stop: 08/28/16 10:01 Last Admin: 08/23/16 17:32 Dose: 1 mcg Saliva Substitute (First Magic Mouthwash) 5 ml PO QID [facility] Last Admin: 08/24/16 21:03 Dose: 5 ml Valacyclovir HCl (Valtrex) 500 mg PO DAILY [facility] Last Admin: 08/24/16 10:49 Dose: 500 mg Vancomycin HCl (Vancocin (Oral Or Rectal Use)) 250 mg PO Q6H [facility] Last Admin: 08/24/16 21:03 Dose: 250 mg Vitamin A (Vitamin A & D Oint Ud Foilpak) 1 ea TOP BID [facility] Last Admin: 08/24/16 17:26 Dose: 1 ea - Labs Labs: 08/24/16 06:02 08/24/16 06:02 PT 11.0 SECONDS (9.7-12.2) 08/24/16 06:02 INR 1.0 08/24/16 06:02 APTT 22 SECONDS (21-34) 08/24/16 06:02 - Constitutional Appears: Well - Head Exam Head Exam: ATRAUMATIC, NORMAL INSPECTION, NORMOCEPHALIC - Eye Exam Eye Exam: EOMI, Normal appearance, PERRL - ENT Exam ENT Exam: Mucous Membranes Moist, Normal Exam - Neck Exam Neck Exam: Full ROM, Normal Inspection. absent: Lymphadenopathy - Respiratory Exam Respiratory Exam: Decreased Breath Sounds - Cardiovascular Exam Cardiovascular Exam: REGULAR RHYTHM, +S1, +S2. absent: Murmur - GI/Abdominal Exam GI & Abdominal Exam: Soft, Diminished Bowel Sounds - Rectal Exam Rectal Exam: Deferred Assessment and Plan (1) Cardiac dysrhythmia Status: Acute (2) ESRD (end stage renal disease) on dialysis Status: Acute (3) Pulmonary edema Status: Acute (4) MARCO (acute kidney injury) Status: Acute (5) Acute respiratory failure requiring reintubation Status: Acute (6) Arthritis Status: Acute (7) CHF (congestive heart failure) Status: Acute (8) Dehydration Status: Acute (9) Dehydration Status: Acute (10) Diverticulosis Status: Acute (11) Elevated CEA Status: Acute (12) Hypertension Status: Acute (13) Inguinal lymphadenopathy Status: Acute (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
--- NOTE | 2016-08-25 01:54 | CP.PCM.PN ---
Subjective - Date & Time of Evaluation Date of Evaluation: 08/22/16 Time of Evaluation: 12:25 - Subjective Subjective: Comfortable family reports she is more oriented Objective - Vital Signs/Intake and Output Vital Signs (last 24 hours): Temp Pulse Resp BP Pulse Ox 98.5 F 71 18 151/76 H 98 08/25/16 00:00 08/25/16 01:00 08/25/16 01:00 08/25/16 00:27 08/25/16 01:00 - Medications Medications: Current Medications Acetaminophen (Tylenol 325mg Tab) 650 mg PO Q6 PRN PRN Reason: Fever >100.4 F Artificial Tears (Artificial Tears) 0 ml OU QID [facility] Last Admin: 08/24/16 21:02 Dose: 1 drop Latanoprost (Xalatan Opht) 0 ml OU HS [facility] Last Admin: 08/24/16 21:03 Dose: 2.5 ml Megestrol Acetate (Megace) 40 mg PO DAILY [facility] Last Admin: 08/24/16 10:14 Dose: 40 mg Methotrexate (Methotrexate) 2.5 mg PO QWK [facility] Last Admin: 08/20/16 11:16 Dose: 2.5 mg Methylprednisolone (Solu-Medrol) 20 mg IVP Q12 [facility] Last Admin: 08/24/16 21:03 Dose: 20 mg Nifedipine (Procardia Xl) 30 mg PO DAILY [facility] Last Admin: 08/24/16 10:15 Dose: 30 mg Paricalcitol (Zemplar) 1 mcg IV TTS [facility] Stop: 08/28/16 10:01 Last Admin: 08/23/16 17:32 Dose: 1 mcg Saliva Substitute (First Magic Mouthwash) 5 ml PO QID [facility] Last Admin: 08/24/16 21:03 Dose: 5 ml Valacyclovir HCl (Valtrex) 500 mg PO DAILY [facility] Last Admin: 08/24/16 10:49 Dose: 500 mg Vancomycin HCl (Vancocin (Oral Or Rectal Use)) 250 mg PO Q6H [facility] Last Admin: 08/24/16 21:03 Dose: 250 mg Vitamin A (Vitamin A & D Oint Ud Foilpak) 1 ea TOP BID [facility] Last Admin: 08/24/16 17:26 Dose: 1 ea - Labs Labs: 08/24/16 06:02 08/24/16 06:02 PT 11.0 SECONDS (9.7-12.2) 08/24/16 06:02 INR 1.0 08/24/16 06:02 APTT 22 SECONDS (21-34) 08/24/16 06:02 - Head Exam Head Exam: ATRAUMATIC - Eye Exam Eye Exam: Normal appearance - ENT Exam ENT Exam: Mucous Membranes Dry - Respiratory Exam Respiratory Exam: NORMAL BREATHING PATTERN - Cardiovascular Exam Cardiovascular Exam: +S1, +S2 - GI/Abdominal Exam GI & Abdominal Exam: Normal Bowel Sounds - Extremities Exam Extremities Exam: Normal Inspection Assessment and Plan (1) TTP (thrombotic thrombocytopenic purpura) Assessment & Plan: on plasma exchange with improving plt count. Status: Acute
--- NOTE | 2016-08-25 01:56 | CP.PCM.PN ---
Subjective - Date & Time of Evaluation Date of Evaluation: 08/23/16 Time of Evaluation: 19:20 - Subjective Subjective: Appears comfortable Family reports she is eating more Objective - Vital Signs/Intake and Output Vital Signs (last 24 hours): Temp Pulse Resp BP Pulse Ox 98.5 F 71 18 151/76 H 98 08/25/16 00:00 08/25/16 01:00 08/25/16 01:00 08/25/16 00:27 08/25/16 01:00 - Medications Medications: Current Medications Acetaminophen (Tylenol 325mg Tab) 650 mg PO Q6 PRN PRN Reason: Fever >100.4 F Artificial Tears (Artificial Tears) 0 ml OU QID [facility] Last Admin: 08/24/16 21:02 Dose: 1 drop Latanoprost (Xalatan Opht) 0 ml OU HS [facility] Last Admin: 08/24/16 21:03 Dose: 2.5 ml Megestrol Acetate (Megace) 40 mg PO DAILY [facility] Last Admin: 08/24/16 10:14 Dose: 40 mg Methotrexate (Methotrexate) 2.5 mg PO QWK [facility] Last Admin: 08/20/16 11:16 Dose: 2.5 mg Methylprednisolone (Solu-Medrol) 20 mg IVP Q12 [facility] Last Admin: 08/24/16 21:03 Dose: 20 mg Nifedipine (Procardia Xl) 30 mg PO DAILY [facility] Last Admin: 08/24/16 10:15 Dose: 30 mg Paricalcitol (Zemplar) 1 mcg IV TTS [facility] Stop: 08/28/16 10:01 Last Admin: 08/23/16 17:32 Dose: 1 mcg Saliva Substitute (First Magic Mouthwash) 5 ml PO QID [facility] Last Admin: 08/24/16 21:03 Dose: 5 ml Valacyclovir HCl (Valtrex) 500 mg PO DAILY [facility] Last Admin: 08/24/16 10:49 Dose: 500 mg Vancomycin HCl (Vancocin (Oral Or Rectal Use)) 250 mg PO Q6H [facility] Last Admin: 08/24/16 21:03 Dose: 250 mg Vitamin A (Vitamin A & D Oint Ud Foilpak) 1 ea TOP BID [facility] Last Admin: 08/24/16 17:26 Dose: 1 ea - Labs Labs: 08/24/16 06:02 08/24/16 06:02 PT 11.0 SECONDS (9.7-12.2) 08/24/16 06:02 INR 1.0 08/24/16 06:02 APTT 22 SECONDS (21-34) 08/24/16 06:02 - Head Exam Head Exam: ATRAUMATIC - Eye Exam Eye Exam: Normal appearance - ENT Exam ENT Exam: Mucous Membranes Dry - Respiratory Exam Respiratory Exam: NORMAL BREATHING PATTERN - Cardiovascular Exam Cardiovascular Exam: +S1, +S2 - GI/Abdominal Exam GI & Abdominal Exam: Normal Bowel Sounds - Extremities Exam Extremities Exam: Normal Inspection Assessment and Plan (1) TTP (thrombotic thrombocytopenic purpura) Assessment & Plan: on daily plasma exchange plt count improving. Status: Acute
--- NOTE | 2016-08-25 01:57 | CP.PCM.PN ---
Subjective - Date & Time of Evaluation Date of Evaluation: 08/24/16 Time of Evaluation: 20:00 - Subjective Subjective: Appears comfortable Objective - Vital Signs/Intake and Output Vital Signs (last 24 hours): Temp Pulse Resp BP Pulse Ox 98.5 F 71 18 151/76 H 98 08/25/16 00:00 08/25/16 01:00 08/25/16 01:00 08/25/16 00:27 08/25/16 01:00 - Medications Medications: Current Medications Acetaminophen (Tylenol 325mg Tab) 650 mg PO Q6 PRN PRN Reason: Fever >100.4 F Artificial Tears (Artificial Tears) 0 ml OU QID [facility] Last Admin: 08/24/16 21:02 Dose: 1 drop Latanoprost (Xalatan Opht) 0 ml OU HS [facility] Last Admin: 08/24/16 21:03 Dose: 2.5 ml Megestrol Acetate (Megace) 40 mg PO DAILY [facility] Last Admin: 08/24/16 10:14 Dose: 40 mg Methotrexate (Methotrexate) 2.5 mg PO QWK [facility] Last Admin: 08/20/16 11:16 Dose: 2.5 mg Methylprednisolone (Solu-Medrol) 20 mg IVP Q12 [facility] Last Admin: 08/24/16 21:03 Dose: 20 mg Nifedipine (Procardia Xl) 30 mg PO DAILY [facility] Last Admin: 08/24/16 10:15 Dose: 30 mg Paricalcitol (Zemplar) 1 mcg IV TTS [facility] Stop: 08/28/16 10:01 Last Admin: 08/23/16 17:32 Dose: 1 mcg Saliva Substitute (First Magic Mouthwash) 5 ml PO QID [facility] Last Admin: 08/24/16 21:03 Dose: 5 ml Valacyclovir HCl (Valtrex) 500 mg PO DAILY [facility] Last Admin: 08/24/16 10:49 Dose: 500 mg Vancomycin HCl (Vancocin (Oral Or Rectal Use)) 250 mg PO Q6H [facility] Last Admin: 08/24/16 21:03 Dose: 250 mg Vitamin A (Vitamin A & D Oint Ud Foilpak) 1 ea TOP BID [facility] Last Admin: 08/24/16 17:26 Dose: 1 ea - Labs Labs: 08/24/16 06:02 08/24/16 06:02 PT 11.0 SECONDS (9.7-12.2) 08/24/16 06:02 INR 1.0 08/24/16 06:02 APTT 22 SECONDS (21-34) 08/24/16 06:02 - Head Exam Head Exam: ATRAUMATIC - Eye Exam Eye Exam: Normal appearance - ENT Exam ENT Exam: Mucous Membranes Dry - Respiratory Exam Respiratory Exam: NORMAL BREATHING PATTERN - Cardiovascular Exam Cardiovascular Exam: +S1, +S2 - GI/Abdominal Exam GI & Abdominal Exam: Normal Bowel Sounds - Extremities Exam Extremities Exam: Normal Inspection Assessment and Plan (1) TTP (thrombotic thrombocytopenic purpura) Assessment & Plan: on daily plasma exchange plt count improving. Status: Acute
[2016-08-25] MEDS: Vancomycin 125 MG/5 ML SOLN (ORAL/RECTAL) PO SCH ×4 (05:30→21:13)
[2016-08-25] MEDS ORDERED: Calcium Gluconate 9.3 MEQ in Sodium Chloride 0.9% 250 ML IV ONE (06:00)
[2016-08-25 06:24] LABS: BASO % 0.2 % (0.0-2.0); LYMPH # 0.6 K/uL (1.0-4.3); LYMPH % 4.5 % (20.0-40.0); MEAN CELL VOLUME 102.5 fL (81.0-99.0); MEAN CORPUSCULAR HEMOGLOBIN 32.3 pg (27.0-31.0); MEAN CORPUSCULAR HGB CONC 31.5 g/dL (33.0-37.0); MEAN PLATELET VOLUME 10.4 fL (7.2-11.7); MONO # 0.4 K/uL (0.0-0.8); MONO % 2.8 % (0.0-10.0); PLATELET COUNT 140 K/uL (130-400); RED CELL DISTRIBUTION WIDTH 18.2 % (11.5-14.5); WHITE BLOOD COUNT 14.4 K/uL (4.8-10.8)
[2016-08-25] MEDS ORDERED: DiphenhydrAMINE 50 mg/ml Inj IVP ONE (06:30)
[2016-08-25 06:33] LABS: INR 0.9
[2016-08-25 06:34] LABS: PARTIAL THROMBOPLASTIN TIME 29 SECONDS (21-34)
[2016-08-25 06:37] LABS: BILIRUBIN,TOTAL 0.8 mg/dL (0.2-1.3); CALCIUM 7.4 mg/dl (8.6-10.4); POTASSIUM 4.4 mmol/L (3.6-5.2); TOTAL PROTEIN 5.5 g/dL (6.3-8.3)
[2016-08-25 06:52] LABS: FIBRINOGEN 207 mg/dL (200-400)
[2016-08-25 08:03] LABS: FDP INTERPRETATION POSITIVE (NEGATIVE); FDP QUANTITY >10<40 ug/mL (<10)
[2016-08-25 08:23] LABS: NEUTROPHIL 92 % (50-75); TOTAL CELLS COUNTED 100
[2016-08-25] MEDS: NIFEdipine 30 mg ER Tab PO SCH (11:33)
[2016-08-25] MEDS: Vitamins A & D Oint UD Foilpak TOP SCH ×2 (11:33→18:44)
[2016-08-25] MEDS: Aritificial Tears (15ml) OU SCH ×4 (11:35→21:14)
[2016-08-25] MEDS: Mag&Al/Simet/Diphen/Lido 237 ML KIT PO SCH ×4 (11:36→21:14)
[2016-08-25] MEDS: MethylPREDNISolone 40 mg Vial IVP SCH ×2 (11:36→21:14)
--- NOTE | 2016-08-25 11:49 | CP.PCM.PN ---
Subjective - Date & Time of Evaluation Date of Evaluation: 08/25/16 Time of Evaluation: 14:20 - Subjective Subjective: clinically same Objective - Vital Signs/Intake and Output Vital Signs (last 24 hours): Temp Pulse Resp BP Pulse Ox 98 F 86 16 143/70 100 08/25/16 04:00 08/25/16 06:00 08/25/16 06:00 08/25/16 05:26 08/25/16 04:00 Intake and Output: 08/25/16 08/25/16 06:59 18:59 Intake Total 240 Balance 240 - Medications Medications: Current Medications Acetaminophen (Tylenol 325mg Tab) 650 mg PO Q6 PRN PRN Reason: Fever >100.4 F Artificial Tears (Artificial Tears) 0 ml OU QID [facility] Last Admin: 08/25/16 11:35 Dose: 1 drop Latanoprost (Xalatan Opht) 0 ml OU HS [facility] Last Admin: 08/24/16 21:03 Dose: 2.5 ml Megestrol Acetate (Megace) 40 mg PO DAILY [facility] Last Admin: 08/25/16 11:33 Dose: 40 mg Methotrexate (Methotrexate) 2.5 mg PO QWK [facility] Last Admin: 08/20/16 11:16 Dose: 2.5 mg Methylprednisolone (Solu-Medrol) 20 mg IVP Q12 [facility] Last Admin: 08/25/16 11:36 Dose: 20 mg Nifedipine (Procardia Xl) 30 mg PO DAILY [facility] Last Admin: 08/25/16 11:33 Dose: 30 mg Paricalcitol (Zemplar) 1 mcg IV TTS [facility] Stop: 08/28/16 10:01 Last Admin: 08/23/16 17:32 Dose: 1 mcg Saliva Substitute (First Magic Mouthwash) 5 ml PO QID [facility] Last Admin: 08/25/16 11:36 Dose: 5 ml Valacyclovir HCl (Valtrex) 500 mg PO DAILY [facility] Last Admin: 08/25/16 11:33 Dose: 500 mg Vancomycin HCl (Vancocin (Oral Or Rectal Use)) 250 mg PO Q6H [facility] Last Admin: 08/25/16 11:33 Dose: 250 mg Vitamin A (Vitamin A & D Oint Ud Foilpak) 1 ea TOP BID [facility] Last Admin: 08/25/16 11:33 Dose: 1 ea - Labs Labs: 08/25/16 06:11 08/25/16 06:11 PT 10.4 SECONDS (9.7-12.2) 08/25/16 06:11 INR 0.9 08/25/16 06:11 APTT 29 SECONDS (21-34) D 08/25/16 06:11 - Constitutional Appears: Well - Head Exam Head Exam: ATRAUMATIC, NORMAL INSPECTION, NORMOCEPHALIC - Eye Exam Eye Exam: EOMI, Normal appearance, PERRL Pupil Exam: NORMAL ACCOMODATION, PERRL - ENT Exam ENT Exam: Mucous Membranes Moist, Normal Exam - Neck Exam Neck Exam: Full ROM, Normal Inspection. absent: Lymphadenopathy - Respiratory Exam Respiratory Exam: Decreased Breath Sounds - Cardiovascular Exam Cardiovascular Exam: REGULAR RHYTHM, +S1, +S2 - GI/Abdominal Exam GI & Abdominal Exam: Soft, Diminished Bowel Sounds - Rectal Exam Rectal Exam: Deferred Assessment and Plan (1) Cardiac dysrhythmia Status: Acute (2) ESRD (end stage renal disease) on dialysis Status: Acute (3) Pulmonary edema Status: Acute (4) MARCO (acute kidney injury) Status: Acute (5) Acute respiratory failure requiring reintubation Status: Acute (6) Arthritis Status: Acute (7) CHF (congestive heart failure) Status: Acute (8) Dehydration Status: Acute (9) Dehydration Status: Acute (10) Diverticulosis Status: Acute (11) Elevated CEA Status: Acute (12) Hypertension Status: Acute (13) Inguinal lymphadenopathy Status: Acute (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 - Assessment and Plan (Free Text) Plan: Patient clinically better Comfortable Methotrexate Nifedipine Valtrex Continue as advised Vancomycin Tylenol Multiple consults Plasma exchange tomorrow [facility] Labs next a.m.
--- NOTE | 2016-08-25 18:42 | PN ---
DATE: LOCATION: The patient is located in ICU room 9 and bed 9. REQUESTING PHYSICIAN: Dr. Kavon Ureña REASON FOR FOLLOWUP: Renal failure, continuation of the hemodialysis. SUBJECTIVE: Ms. Denise Garcia is an 80 years old elderly female with a history of hypertension, arthritis, cardiomyopathy, CHF, TTP who was recently discharged to the subacute rehab last week and then the patient was sent back after 2 days with leaking of green material from defibrillator where a cardiac vest and also confusion. The patient was evaluated by cardiology and also the hematology consultation is requested again for the persistent thrombocytopenia by Dr. Montanez and initiated on plasmapheresis. Since initiation of plasmapheresis, the patient seems much better. Her mental status is gradually improving. The patient is not in distress. The patient was agitated as per the registered nurse this morning during plasmapheresis and the patient was given Haldol. The patient was seen and examined during hemodialysis. UF goal is about 1 L, not in distress, following simple commands. No chest pain. No palpitations. No fever. No cough. PHYSICAL EXAMINATION VITAL SIGNS: As follows. Blood pressure 136/76, pulse 56, respirations 14, saturation 100%, and temperature is 98.6. GENERAL: Ms. Denise Garcia is an 80 years old elderly female, moderate built, moderate nourished, not in acute distress. HEENT: Pupils normal and reactive to light and accommodation. Conjunctivae pink. Sclerae anicteric. Tongue is moist. Trachea is midline. LUNGS: Symmetric on both sides. Bilateral breath sounds present. Clear on auscultation. CARDIOVASCULAR: [place] at the fifth intercostal space, midclavicular line. S1, S2 audible. No murmur or gallop. ABDOMEN: Normal in appearance, soft, tympanic. No guarding. No rigidity. No hepatosplenomegaly. FIRE MANAGEMENT SPECIALIST: The patient is awake, following simple commands. EXTREMITIES: No cyanosis. No clubbing. No edema. LABORATORY DATA: Include as follows as of 08/23/2016; WBC 11.7, hemoglobin 9.1, hematocrit is 28.7, and platelets 104 and neutrophils 91, bands 1, lymphs 6, monos 2. Other lab data; PT is 11, PTT is 21, fibrinogen 170. Sodium 134, potassium 5.7, chloride 93, CO2 31, BUN 40, creatinine 5.1, glucose 180, calcium is 7.3, phosphorus 5.8, magnesium is 2.0, total bilirubin 1.4, AST 81, ALT is 25, alkaline phos is 90, total protein 5.7, albumin is 2.8 and stool for C. diff toxin is positive. CURRENT MEDICATIONS: Include as follows; artificial tears and also Megace 40 mg p.o. daily, methotrexate 2.5 mg p.o. q weekly, Procardia XL 30 mg p.o. daily, Solu-Medrol 20 mg IV q.12 h., Valtrex 500 mg p.o. daily, vancomycin 250 mg p.o. q.6 h., Tylenol, Xalatan eye drops, Zemplar 1 mcg 3 times a week; Thursday, , Thursday. SUMMARY: Ms. Denise Garcia is an 80 years old elderly female with a history of hypertension, arthritis, thrombocytopenia, status post plasmapheresis about 3 weeks ago for thrombocytopenia, possible TTP. Now, the patient was admitted again with altered mental status, thrombocytopenia; restarted on plasmapheresis for possible idiopathic and recurrent TTP. 1. Renal failure; acute on chronic kidney disease, etiology is not clear. ATN versus thrombotic microangiopathy secondary to TTP cannot be ruled out. 2. Hypertension. 3. Cardiomyopathy. 4. Thrombocytopenia, secondary to possible TTP idiopathic and relapsing TTP. Continue plasmapheresis and continue steroids as per the pyrotechnist's recommendation. The patient underwent hemodialysis this afternoon without any complication and ultrafiltration goal was about 1 L. We will follow with you. Thank you for allowing me to participate in your patient's care. Overall prognosis is guarded. Horacio Graham MD
[2016-08-25] MEDS: Latanoprost 2.5 ml Opht Soln OU SCH (21:15)
[2016-08-26] MEDS: Vancomycin 125 MG/5 ML SOLN (ORAL/RECTAL) PO SCH ×4 (04:53→22:15)
[2016-08-26 06:43] LABS: BASO % 0.2 % (0.0-2.0); HEMATOCRIT 31.2 % (34.0-47.0); LYMPH # 0.8 K/uL (1.0-4.3); LYMPH % 5.6 % (20.0-40.0); MEAN CELL VOLUME 102.4 fL (81.0-99.0); MEAN CORPUSCULAR HEMOGLOBIN 31.7 pg (27.0-31.0); MEAN PLATELET VOLUME 10.5 fL (7.2-11.7); MONO # 0.6 K/uL (0.0-0.8); MONO % 4.1 % (0.0-10.0); PLATELET COUNT 135 K/uL (130-400); RED CELL DISTRIBUTION WIDTH 18.6 % (11.5-14.5); WHITE BLOOD COUNT 14.5 K/uL (4.8-10.8)
[2016-08-26 06:53] LABS: POTASSIUM 4.2 mmol/L (3.6-5.2)
[2016-08-26 06:56] LABS: ALB/GLOB RATIO 1.1 (1.0-2.1); BILIRUBIN,TOTAL 0.6 mg/dL (0.2-1.3); CALCIUM 7.7 mg/dl (8.6-10.4); TOTAL PROTEIN 5.6 g/dL (6.3-8.3)
[2016-08-26] MEDS ORDERED: Calcium Gluconate 9.3 MEQ in Sodium Chloride 0.9% 250 ML IV ONE (07:00)
[2016-08-26] MEDS ORDERED: DiphenhydrAMINE 50 mg/ml Inj IVP ONE (07:00)
[2016-08-26 07:02] LABS: FIBRINOGEN 250 mg/dL (200-400); INR 0.9; PARTIAL THROMBOPLASTIN TIME 20 SECONDS (21-34)
[2016-08-26 07:28] LABS: FDP INTERPRETATION POSITIVE (NEGATIVE); FDP QUANTITY >10<40 ug/mL (<10)
[2016-08-26 08:25] LABS: NEUTROPHIL 93 % (50-75); TOTAL CELLS COUNTED 100
[2016-08-26] MEDS: Vitamins A & D Oint UD Foilpak TOP SCH ×2 (09:30→17:42)
[2016-08-26] MEDS: MethylPREDNISolone 40 mg Vial IVP SCH ×2 (09:30→22:00)
[2016-08-26] MEDS: Aritificial Tears (15ml) OU SCH ×4 (09:30→21:59)
[2016-08-26] MEDS: NIFEdipine 30 mg ER Tab PO SCH (09:30)
[2016-08-26] MEDS: Mag&Al/Simet/Diphen/Lido 237 ML KIT PO SCH ×4 (09:30→21:59)
--- NOTE | 2016-08-26 10:06 | CP.PCM.PN ---
Subjective - Date & Time of Evaluation Date of Evaluation: 08/26/16 Time of Evaluation: 10:05 - Subjective Subjective: pt seen and examined during hd, follow up consult is dictated #[id number] uf goal is about 1 lit Objective - Vital Signs/Intake and Output Vital Signs (last 24 hours): Temp Pulse Resp BP Pulse Ox 98.8 F 82 16 153/76 H 89 L 08/26/16 08:00 08/26/16 08:00 08/26/16 08:00 08/26/16 08:00 08/26/16 05:32 Intake and Output: 08/26/16 08/26/16 06:59 18:59 Intake Total 240 Balance 240 - Medications Medications: Current Medications Acetaminophen (Tylenol 325mg Tab) 650 mg PO Q6 PRN PRN Reason: Fever >100.4 F Artificial Tears (Artificial Tears) [address] [facility] Last Admin: 08/26/16 09:30 Dose: 1 drop Latanoprost (Xalatan Opht) [address] [facility] Last Admin: 08/25/16 21:15 Dose: 2.5 ml Megestrol Acetate (Megace) [address] [facility] Last Admin: 08/25/16 11:33 Dose: 40 mg Methotrexate (Methotrexate) 2.[address] [facility] Last Admin: 08/20/16 11:16 Dose: 2.5 mg Methylprednisolone (Solu-Medrol) 20 mg IVP Q12 [facility] Last Admin: 08/26/16 09:30 Dose: 20 mg Nifedipine (Procardia Xl) 30 mg PO DAILY [facility] Last Admin: 08/26/16 09:30 Dose: 30 mg Paricalcitol (Zemplar) [address] [facility] Stop: 08/28/16 10:01 Last Admin: 08/23/16 17:32 Dose: 1 mcg Saliva Substitute (First Magic Mouthwash) 5 ml PO QID [facility] Last Admin: 08/26/16 09:30 Dose: 5 ml Valacyclovir HCl (Valtrex) [address] [facility] Last Admin: 08/26/16 09:30 Dose: 500 mg Vancomycin HCl (Vancocin (Oral Or Rectal Use)) [address] [facility] Last Admin: 08/26/16 09:30 Dose: 250 mg Vitamin A (Vitamin A & D Oint Ud Foilpak) 1 ea TOP BID [facility] Last Admin: 08/26/16 09:30 Dose: 1 ea - Labs Labs: 08/26/16 06:35 08/26/16 06:35 PT 10.3 SECONDS (9.7-12.2) 08/26/16 06:35 INR 0.9 08/26/16 06:35 APTT 20 SECONDS (21-34) L D 08/26/16 06:35
[2016-08-26] MEDS: Paricalcitol 2 mcg/ml Inj IV SCH (11:57)
--- NOTE | 2016-08-26 12:32 | CP.PCM.PN ---
Subjective - Date & Time of Evaluation Date of Evaluation: 08/26/16 Time of Evaluation: 15:40 - Subjective Subjective: clinically same Objective - Vital Signs/Intake and Output Vital Signs (last 24 hours): Temp Pulse Resp BP Pulse Ox 98 F 94 H 18 112/57 L 101 H 08/26/16 10:00 08/26/16 11:00 08/26/16 11:00 08/26/16 11:00 08/26/16 11:00 Intake and Output: 08/26/16 08/26/16 06:59 18:59 Intake Total 240 240 Output Total 0 Balance 240 240 - Medications Medications: Current Medications Acetaminophen (Tylenol 325mg Tab) 650 mg PO Q6 PRN PRN Reason: Fever >100.4 F Artificial Tears (Artificial Tears) 0 ml OU QID [facility] Last Admin: 08/26/16 09:30 Dose: 1 drop Latanoprost (Xalatan Opht) 0 ml OU HS [facility] Last Admin: 08/25/16 21:15 Dose: 2.5 ml Megestrol Acetate (Megace) 40 mg PO DAILY [facility] Last Admin: 08/25/16 11:33 Dose: 40 mg Methotrexate (Methotrexate) 2.5 mg PO QWK [facility] Last Admin: 08/20/16 11:16 Dose: 2.5 mg Methylprednisolone (Solu-Medrol) 20 mg IVP Q12 [facility] Last Admin: 08/26/16 09:30 Dose: 20 mg Nifedipine (Procardia Xl) 30 mg PO DAILY [facility] Last Admin: 08/26/16 09:30 Dose: 30 mg Paricalcitol (Zemplar) 1 mcg IV TTS [facility] Stop: 08/28/16 10:01 Last Admin: 08/26/16 11:57 Dose: 1 mcg Saliva Substitute (First Magic Mouthwash) 5 ml PO QID [facility] Last Admin: 08/26/16 09:30 Dose: 5 ml Valacyclovir HCl (Valtrex) 500 mg PO DAILY [facility] Last Admin: 08/26/16 09:30 Dose: 500 mg Vancomycin HCl (Vancocin (Oral Or Rectal Use)) 250 mg PO Q6H [facility] Last Admin: 08/26/16 09:30 Dose: 250 mg Vitamin A (Vitamin A & D Oint Ud Foilpak) 1 ea TOP BID [facility] Last Admin: 08/26/16 09:30 Dose: 1 ea - Labs Labs: 08/26/16 06:35 08/26/16 06:35 PT 10.3 SECONDS (9.7-12.2) 08/26/16 06:35 INR 0.9 08/26/16 06:35 APTT 20 SECONDS (21-34) L D 08/26/16 06:35 - Constitutional Appears: Well - Head Exam Head Exam: ATRAUMATIC, NORMAL INSPECTION, NORMOCEPHALIC - Eye Exam Eye Exam: EOMI, Normal appearance, PERRL Pupil Exam: NORMAL ACCOMODATION, PERRL - ENT Exam ENT Exam: Mucous Membranes Moist, Normal Exam - Neck Exam Neck Exam: Full ROM, Normal Inspection. absent: Lymphadenopathy - Respiratory Exam Respiratory Exam: Decreased Breath Sounds - Cardiovascular Exam Cardiovascular Exam: REGULAR RHYTHM, +S1, +S2 - GI/Abdominal Exam GI & Abdominal Exam: Soft, Diminished Bowel Sounds - Rectal Exam Rectal Exam: Deferred Assessment and Plan (1) Cardiac dysrhythmia Status: Acute (2) ESRD (end stage renal disease) on dialysis Status: Acute (3) Pulmonary edema Status: Acute (4) MARCO (acute kidney injury) Status: Acute (5) Acute respiratory failure requiring reintubation Status: Acute (6) Arthritis Status: Acute (7) CHF (congestive heart failure) Status: Acute (8) Dehydration Status: Acute (9) Dehydration Status: Acute (10) Diverticulosis Status: Acute (11) Elevated CEA Status: Acute (12) Hypertension Status: Acute (13) Inguinal lymphadenopathy Status: Acute (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 - Assessment and Plan (Free Text) Plan: Patient clinically improving No acute event overnight Plasma exchange today Methotrexate Nifedipine Valtrex Continue as advised Vancomycin Tylenol Multiple consults on board [facility] Labs next a.m.
--- NOTE | 2016-08-26 13:22 | CP.PCM.PN ---
Subjective - Date & Time of Evaluation Date of Evaluation: 08/25/16 Time of Evaluation: 19:00 - Subjective Subjective: Appears comfortable Objective - Vital Signs/Intake and Output Vital Signs (last 24 hours): Temp Pulse Resp BP Pulse Ox 98.7 F 98 H 17 97/57 L 95 08/26/16 12:00 08/26/16 13:00 08/26/16 13:00 08/26/16 13:00 08/26/16 13:00 Intake and Output: 08/26/16 08/26/16 06:59 18:59 Intake Total 240 360 Output Total 0 Balance 240 360 - Medications Medications: Current Medications Acetaminophen (Tylenol 325mg Tab) 650 mg PO Q6 PRN PRN Reason: Fever >100.4 F Artificial Tears (Artificial Tears) 0 ml OU QID [facility] Last Admin: 08/26/16 13:05 Dose: 1 drop Latanoprost (Xalatan Opht) 0 ml OU HS [facility] Last Admin: 08/25/16 21:15 Dose: 2.5 ml Megestrol Acetate (Megace) 40 mg PO DAILY [facility] Last Admin: 08/25/16 11:33 Dose: 40 mg Methotrexate (Methotrexate) 2.5 mg PO QWK [facility] Last Admin: 08/20/16 11:16 Dose: 2.5 mg Methylprednisolone (Solu-Medrol) 20 mg IVP Q12 [facility] Last Admin: 08/26/16 09:30 Dose: 20 mg Nifedipine (Procardia Xl) 30 mg PO DAILY [facility] Last Admin: 08/26/16 09:30 Dose: 30 mg Paricalcitol (Zemplar) 1 mcg IV TTS [facility] Stop: 08/28/16 10:01 Last Admin: 08/26/16 11:57 Dose: 1 mcg Saliva Substitute (First Magic Mouthwash) 5 ml PO QID [facility] Last Admin: 08/26/16 13:04 Dose: 5 ml Valacyclovir HCl (Valtrex) 500 mg PO DAILY [facility] Last Admin: 08/26/16 09:30 Dose: 500 mg Vancomycin HCl (Vancocin (Oral Or Rectal Use)) 250 mg PO Q6H [facility] Last Admin: 08/26/16 09:30 Dose: 250 mg Vitamin A (Vitamin A & D Oint Ud Foilpak) 1 ea TOP BID [facility] Last Admin: 08/26/16 09:30 Dose: 1 ea - Labs Labs: 07/18/17 06:35 08/26/16 06:35 PT 10.3 SECONDS (9.7-12.2) 08/26/16 06:35 INR 0.9 08/26/16 06:35 APTT 20 SECONDS (21-34) L D 08/26/16 06:35 - Head Exam Head Exam: ATRAUMATIC - Eye Exam Eye Exam: Normal appearance - ENT Exam ENT Exam: Mucous Membranes Dry - Respiratory Exam Respiratory Exam: NORMAL BREATHING PATTERN - Cardiovascular Exam Cardiovascular Exam: +S1, +S2 - GI/Abdominal Exam GI & Abdominal Exam: Normal Bowel Sounds - Extremities Exam Extremities Exam: Normal Inspection Assessment and Plan (1) TTP (thrombotic thrombocytopenic purpura) Assessment & Plan: 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
--- NOTE | 2016-08-26 13:24 | CP.PCM.PN ---
Subjective - Date & Time of Evaluation Date of Evaluation: 08/26/16 Time of Evaluation: 12:00 - Subjective Subjective: Appears comfortable for dialysis and plasma exchange today Objective - Vital Signs/Intake and Output Vital Signs (last 24 hours): Temp Pulse Resp BP Pulse Ox 98.7 F 98 H 17 97/57 L 95 08/26/16 12:00 08/26/16 13:00 08/26/16 13:00 08/26/16 13:00 08/26/16 13:00 Intake and Output: 08/26/16 08/26/16 06:59 18:59 Intake Total 240 360 Output Total 0 Balance 240 360 - Medications Medications: Current Medications Acetaminophen (Tylenol 325mg Tab) 650 mg PO Q6 PRN PRN Reason: Fever >100.4 F Artificial Tears (Artificial Tears) 0 ml OU QID [facility] Last Admin: 08/26/16 13:05 Dose: 1 drop Latanoprost (Xalatan Opht) 0 ml OU HS [facility] Last Admin: 08/25/16 21:15 Dose: 2.5 ml Megestrol Acetate (Megace) 40 mg PO DAILY [facility] Last Admin: 08/25/16 11:33 Dose: 40 mg Methotrexate (Methotrexate) 2.5 mg PO QWK [facility] Last Admin: 08/20/16 11:16 Dose: 2.5 mg Methylprednisolone (Solu-Medrol) 20 mg IVP Q12 [facility] Last Admin: 08/26/16 09:30 Dose: 20 mg Nifedipine (Procardia Xl) 30 mg PO DAILY [facility] Last Admin: 08/26/16 09:30 Dose: 30 mg Paricalcitol (Zemplar) 1 mcg IV TTS [facility] Stop: 08/28/16 10:01 Last Admin: 08/26/16 11:57 Dose: 1 mcg Saliva Substitute (First Magic Mouthwash) 5 ml PO QID [facility] Last Admin: 08/26/16 13:04 Dose: 5 ml Valacyclovir HCl (Valtrex) 500 mg PO DAILY [facility] Last Admin: 08/26/16 09:30 Dose: 500 mg Vancomycin HCl (Vancocin (Oral Or Rectal Use)) 250 mg PO Q6H [facility] Last Admin: 08/26/16 09:30 Dose: 250 mg Vitamin A (Vitamin A & D Oint Ud Foilpak) 1 ea TOP BID [facility] Last Admin: 08/26/16 09:30 Dose: 1 ea - Labs Labs: 08/26/16 06:35 08/26/16 06:35 PT 10.3 SECONDS (9.7-12.2) 08/26/16 06:35 INR 0.9 08/26/16 06:35 APTT 20 SECONDS (21-34) L D 08/26/16 06:35 - Head Exam Head Exam: ATRAUMATIC - Eye Exam Eye Exam: Normal appearance - ENT Exam ENT Exam: Mucous Membranes Dry - Respiratory Exam Respiratory Exam: NORMAL BREATHING PATTERN - Cardiovascular Exam Cardiovascular Exam: +S1, +S2 - GI/Abdominal Exam GI & Abdominal Exam: Normal Bowel Sounds Assessment and Plan (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
[2016-08-26] MEDS: Latanoprost 2.5 ml Opht Soln OU SCH (22:03)
[2016-08-27] MEDS: Vancomycin 125 MG/5 ML SOLN (ORAL/RECTAL) PO SCH ×4 (04:00→21:27)
--- NOTE | 2016-08-27 07:00 | CON ---
RENAL CONSULTATION LOCATION: The patient is located in ICU room, bed 8. REQUESTED BY: Kavon Ureña MD. REASON FOR FOLLOWUP: Renal failure and continuation of hemodialysis. HISTORY OF PRESENT ILLNESS: The patient is an 80 years old elderly female with a past medical history significant for hypertension, arthritis, questionable rheumatoid arthritis, was admitted about a month ago initially with altered mental status, thrombocytopenia, and renal failure, suspected TTP, started on FFP and subsequently, the patient was treated with steroids and plasmapheresis x4. Her mental status improved and also her platelets improved. Subsequently, the patient was discharged to [facility] for subacute rehab. The patient was sent back after 48 hours with leaking of greenish material from the defibrillator waste. The patient was also found to have worsening platelets and seen by home health attendant, Dr. Montanez and started on plasmapheresis. The patient is being dialyzed this morning and ultrafiltration goal is about 1 L. The patient is sleepy, but arousable, following commands simple appropriately and not in distress. No chest pain. No palpitations. PHYSICAL EXAMINATION VITAL SIGNS: This morning, her blood pressure is 116/63, pulse 101, respirations 20, and saturation 94%-96%, and temperature is 98. GENERAL: The patient is an 80 years old elderly female, moderately built, moderately nourished, and not in acute distress. HEENT: Pupils normal, reactive to light and accommodation. Conjunctivae pink. Sclerae anicteric. Tongue is moist. Trachea is midline. LUNGS: Symmetrical on both sides. Bilateral breath sounds present and clear on auscultation. CARDIOVASCULAR: Rozel of the fifth intercostal space midclavicular line. S1 and S2 audible No murmur or gallop. ABDOMEN: Normal in appearance, soft, and tympanic. No guarding. No rigidity. No hepatosplenomegaly. CENTRAL NERVOUS SYSTEM: The patient is arousable, following commands, simple appropriately. Sensory and motor examination is within normal limits. EXTREMITIES: No cyanosis. No clubbing. No edema. CURRENT MEDICATIONS: Include as follows; artificial tears and Megace 40 mg p.o. daily, methotrexate 2.5 mg p.o. every weekly, Procardia XL 30 mg p.o daily, Solu-Medrol 20 mg IV q.12 hours, Tylenol and valacyclovir 500 mg p.o. daily and vancomycin 250 mg p.o.q.6 hours and vitamin A and D ointment and Xalatan eyedrops, Zemplar 1 mcg three times a week Thursday, , and Thursday. LABORATORY DATA: Include as follows as of 08/26/2016; WBC 14.5, hemoglobin 9.7, hematocrit 31.2, and platelets 135. Neutrophils 93 and lymphocytes are 4 and monos are 3. PT is 10.3, INR 0.9, PTT 20 and FDP positive, more than 10 and less than 40. Chem-7; sodium 132, potassium 4.2, chloride 89, CO2 of 30, BUN 54, creatinine 5.1, glucose 148, and calcium is 7.7. Total bilirubin 0.6, AST 32, ALT 38, alkaline phosphate 103, total protein 5.6, and albumin is 2.9. MRSA screening was negative as of 08/20/2016 and stool for C. diff toxin was positive as of 08/22/2016. HIV was negative as of 08/21/2016. Chest x-ray as of 08/26/2016, left central venous catheter extending into the distal right SVC, prominent diffuse increased interstitial lung marking suggestive for edema and/or infiltrate, patchy consolidative changes at the left lung base. 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 Now platelets are improving nicely and mental status also improving. 1. Renal failure, acute on chronic kidney disease, rule out ATN versus thrombotic microangiopathy secondary to TTP. 2. Hypertension. 3. TTP, continue plasmapheresis and steroids as per the home health attendant, Dr. Montanez. We will follow with you. 4. Cardiomyopathy. The patient was seen and examined during dialysis this morning and UF goal was about 1 L. Thank you for allowing me to participate in your patient's care. Horacio Graham MD [facility] # [id number]
[2016-08-27] MEDS: Mag&Al/Simet/Diphen/Lido 237 ML KIT PO SCH ×4 (09:16→21:25)
[2016-08-27] MEDS: MethylPREDNISolone 40 mg Vial IVP SCH ×2 (09:16→21:25)
[2016-08-27] MEDS: Aritificial Tears (15ml) OU SCH ×4 (09:17→21:26)
[2016-08-27] MEDS: Vitamins A & D Oint UD Foilpak TOP SCH ×2 (09:22→17:43)
[2016-08-27] MEDS: NIFEdipine 30 mg ER Tab PO SCH (09:23)
--- NOTE | 2016-08-27 12:27 | CP.PCM.PN ---
Subjective - Date & Time of Evaluation Date of Evaluation: 08/27/16 Time of Evaluation: 12:26 - Subjective Subjective: pt seen and examined, follow up consult is dictated #[id number] pt is feelin g better, ox 2-3, Mental status improved, platelets improving Objective - Vital Signs/Intake and Output Vital Signs (last 24 hours): Temp Pulse Resp BP Pulse Ox 97.2 F L 81 20 155/67 H 96 08/27/16 07:59 08/27/16 07:59 08/27/16 07:59 08/27/16 07:59 08/27/16 07:59 Intake and Output: 08/27/16 08/27/16 06:59 18:59 Intake Total 220 Output Total 0 Balance 220 - Medications Medications: Current Medications Acetaminophen (Tylenol 325mg Tab) 650 mg PO Q6 PRN PRN Reason: Fever >100.4 F Artificial Tears (Artificial Tears) 0 ml OU QID [facility] Last Admin: 08/27/16 09:17 Dose: 1 drop Latanoprost (Xalatan Opht) 0 ml OU HS [facility] Last Admin: 08/26/16 22:03 Dose: 1 ml Megestrol Acetate (Megace) 40 mg PO DAILY [facility] Last Admin: 08/27/16 09:22 Dose: 40 mg Methotrexate (Methotrexate) 2.5 mg PO QWK [facility] Last Admin: 08/27/16 09:25 Dose: 2.5 mg Methylprednisolone (Solu-Medrol) 20 mg IVP Q12 [facility] Last Admin: 08/27/16 09:16 Dose: 20 mg Nifedipine (Procardia Xl) 30 mg PO DAILY [facility] Last Admin: 08/27/16 09:23 Dose: 30 mg Paricalcitol (Zemplar) 1 mcg IV TTS [facility] Stop: 08/28/16 10:01 Last Admin: 08/26/16 11:57 Dose: 1 mcg Saliva Substitute (First Magic Mouthwash) 5 ml PO QID [facility] Last Admin: 08/27/16 09:16 Dose: 5 ml Valacyclovir HCl (Valtrex) 500 mg PO DAILY [facility] Last Admin: 08/27/16 09:23 Dose: 500 mg Vancomycin HCl (Vancocin (Oral Or Rectal Use)) 250 mg PO Q6H [facility] Last Admin: 08/27/16 09:22 Dose: 250 mg Vitamin A (Vitamin A & D Oint Ud Foilpak) 1 ea TOP BID [facility] Last Admin: 08/27/16 09:22 Dose: 1 ea - Labs Labs: 08/26/16 06:35 08/26/16 06:35 PT 10.3 SECONDS (9.7-12.2) 08/26/16 06:35 INR 0.9 08/26/16 06:35 APTT 20 SECONDS (21-34) L D 08/26/16 06:35
[2016-08-27 14:48] LABS: HEMATOCRIT 31.6 % (34.0-47.0); MEAN CELL VOLUME 103.1 fL (81.0-99.0); MEAN CORPUSCULAR HEMOGLOBIN 32.1 pg (27.0-31.0); MEAN CORPUSCULAR HGB CONC 31.1 g/dL (33.0-37.0); MEAN PLATELET VOLUME 9.9 fL (7.2-11.7); RED CELL DISTRIBUTION WIDTH 19.4 % (11.5-14.5); WHITE BLOOD COUNT 16.9 K/uL (4.8-10.8)
--- NOTE | 2016-08-27 14:55 | CP.PCM.PN ---
Subjective - Date & Time of Evaluation Date of Evaluation: 08/27/16 Time of Evaluation: 07:40 - Subjective Subjective: clinically same Objective - Vital Signs/Intake and Output Vital Signs (last 24 hours): Temp Pulse Resp BP Pulse Ox 97.2 F L 81 20 155/67 H 96 08/27/16 07:59 08/27/16 07:59 08/27/16 07:59 08/27/16 07:59 08/27/16 07:59 Intake and Output: 08/27/16 08/27/16 06:59 18:59 Intake Total 220 240 Output Total 0 0 Balance 220 240 - Medications Medications: Current Medications Acetaminophen (Tylenol 325mg Tab) 650 mg PO Q6 PRN PRN Reason: Fever >100.4 F Artificial Tears (Artificial Tears) 0 ml OU QID [facility] Last Admin: 08/27/16 13:28 Dose: 1 drop Latanoprost (Xalatan Opht) 0 ml OU HS [facility] Last Admin: 08/26/16 22:03 Dose: 1 ml Megestrol Acetate (Megace) 40 mg PO DAILY [facility] Last Admin: 08/27/16 09:22 Dose: 40 mg Methotrexate (Methotrexate) 2.5 mg PO QWK [facility] Last Admin: 08/27/16 09:25 Dose: 2.5 mg Methylprednisolone (Solu-Medrol) 20 mg IVP Q12 [facility] Last Admin: 08/27/16 09:16 Dose: 20 mg Nifedipine (Procardia Xl) 30 mg PO DAILY [facility] Last Admin: 08/27/16 09:23 Dose: 30 mg Paricalcitol (Zemplar) 1 mcg IV TTS [facility] Stop: 08/28/16 10:01 Last Admin: 08/26/16 11:57 Dose: 1 mcg Saliva Substitute (First Magic Mouthwash) 5 ml PO QID [facility] Last Admin: 08/27/16 13:28 Dose: Not Given Valacyclovir HCl (Valtrex) 500 mg PO DAILY [facility] Last Admin: 08/27/16 09:23 Dose: 500 mg Vancomycin HCl (Vancocin (Oral Or Rectal Use)) 250 mg PO Q6H [facility] Last Admin: 08/27/16 09:22 Dose: 250 mg Vitamin A (Vitamin A & D Oint Ud Foilpak) 1 ea TOP BID [facility] Last Admin: 08/27/16 09:22 Dose: 1 ea - Labs Labs: 08/27/16 14:14 08/26/16 06:35 PT 10.3 SECONDS (9.7-12.2) 08/26/16 06:35 INR 0.9 08/26/16 06:35 APTT 20 SECONDS (21-34) L D 08/26/16 06:35 - Constitutional Appears: Well - Head Exam Head Exam: ATRAUMATIC, NORMAL INSPECTION, NORMOCEPHALIC - Eye Exam Eye Exam: EOMI, Normal appearance, PERRL Pupil Exam: NORMAL ACCOMODATION, PERRL - ENT Exam ENT Exam: Mucous Membranes Moist, Normal Exam - Neck Exam Neck Exam: Full ROM, Normal Inspection. absent: Lymphadenopathy - Respiratory Exam Respiratory Exam: Decreased Breath Sounds - Cardiovascular Exam Cardiovascular Exam: REGULAR RHYTHM, +S1, +S2 - GI/Abdominal Exam GI & Abdominal Exam: Soft, Diminished Bowel Sounds - Rectal Exam Rectal Exam: Deferred Assessment and Plan (1) Acute respiratory failure requiring reintubation Status: Acute (2) MARCO (acute kidney injury) Status: Acute (3) Arthritis Status: Acute (4) Cardiac dysrhythmia Status: Acute (5) CHF (congestive heart failure) Status: Acute (6) Dehydration Status: Acute (7) Dehydration Status: Acute (8) Diverticulosis Status: Acute (9) Elevated CEA Status: Acute (10) ESRD (end stage renal disease) on dialysis Status: Acute (11) Hypertension Status: Acute (12) Inguinal lymphadenopathy Status: Acute (13) Pulmonary edema Status: Acute (14) Thrombocytopenia Status: Acute (15) Thrombocytopenia Status: Acute (16) TTP (thrombotic thrombocytopenic purpura) Status: Acute - Assessment and Plan (Free Text) Plan: Plasmapheresis done yesterday Dialysis yesterday Patient comfortable No acute event overnight Methotrexate Nifedipine Valtrex Continue as advised Vancomycin Tylenol Multiple consults on board [facility] Physical therapy Labs next a.m.
[2016-08-27] MEDS: Latanoprost 2.5 ml Opht Soln OU SCH (21:26)
[2016-08-28] MEDS: Vancomycin 125 MG/5 ML SOLN (ORAL/RECTAL) PO SCH ×4 (04:14→21:50)
--- NOTE | 2016-08-28 05:50 | PN ---
DATE: LOCATION: The patient is located in ICU room, bed 8. REQUESTED BY: Dr. Martine Ureña REASON FOR FOLLOWUP: Renal failure and continuation of hemodialysis. SUBJECTIVE: Ms. Denise Garcia is an 80-year-old elderly female with a history of hypertension, rheumatoid arthritis, thrombocytopenia, and TTP, status post plasmapheresis, last one yesterday and renal failure on hemodialysis 3 times a week, cardiomyopathy who was transferred from ICU to the Medical Floor. The patient is more alert, awake, following commands appropriately. The patient is not at bedside. No chest pain. No palpitation. No shortness of breath. No abdominal pain. PHYSICAL EXAMINATION: GENERAL: Ms. Denise Garcia is an 80 years old elderly female, moderate built, moderately nourished, not in acute distress. VITAL SIGNS: This morning blood pressure 155/67, pulse 81, respirations 20, temperature 97.2, and saturation 96%. Height 5 feet 2 inches and weight 137 pounds. HEENT: Pupils are normal, reactive to light and accommodation. Conjunctivae pink. Sclerae anicteric. Tongue is moist. Trachea is midline. CARDIOPULMONARY: Royal of the fifth intercostal space midclavicular line. S1 and S2 audible. No murmur or gallop. LUNGS: Symmetrical on both sides. Bilateral breath sounds present. No crackles. ABDOMEN: Normal in appearance, soft, and tympanic. No guarding. No hepatosplenomegaly. CENTRAL NERVOUS SYSTEM: The patient is awake, alert, oriented x2. Sensory and motor system is grossly within normal limits. EXTREMITIES: Moving all extremities. Tried to raise both lower extremities about 40 degrees from the horizontal position. No cyanosis. No clubbing. No edema. LABORATORY DATA: WBC 16.9, hemoglobin 9.8, hematocrit 31.6, and platelets 109. LDH is 693. As of 08/26/2016, stool for Clostridium difficile toxin is positive. CURRENT MEDICATIONS: Include as follows; artificial tears and Megace 40 mg p.o. daily and methotrexate 2.5 mg p.o. every weekly, Procardia XL 30 mg p.o. daily, and Solu-Medrol 20 mg IV q.12 hours, Tylenol, valacyclovir 500 mg p.o. daily, and vancomycin 250 mg p.o. q.6 hours, and vitamin A and D ointment, and Zemplar 1 mcg 3 times a week. ASSESSMENT AND PLAN: In summary again, Ms. 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 Followup with the agency recruiter Dr. Montanez. 2. Renal failure, etiology is not clear. Acute tubular necrosis versus thrombotic microangiopathy secondary to thrombotic thrombocytopenic purpura. 3. Hypertension. 4. Cardiopathy. We will continue Solu-Medrol and I will continue hemodialysis 3 times a week; Thursday, , and Thursday. We will follow with you. Thank you for allowing me to participate in our patient's care. Horacio Graham MD [id number]
[2016-08-28 07:55] LABS: HEMATOCRIT 30.6 % (34.0-47.0); LYMPH # 0.8 K/uL (1.0-4.3); LYMPH % 4.9 % (20.0-40.0); MEAN CORPUSCULAR HEMOGLOBIN 32.2 pg (27.0-31.0); MEAN CORPUSCULAR HGB CONC 31.6 g/dL (33.0-37.0); MEAN PLATELET VOLUME 9.5 fL (7.2-11.7); MONO # 0.7 K/uL (0.0-0.8); MONO % 4.5 % (0.0-10.0); PLATELET COUNT 147 K/uL (130-400); RED CELL DISTRIBUTION WIDTH 18.4 % (11.5-14.5); WHITE BLOOD COUNT 16.3 K/uL (4.8-10.8)
[2016-08-28 08:05] LABS: POTASSIUM 4.6 mmol/L (3.6-5.2)
[2016-08-28 08:07] LABS: BILIRUBIN,TOTAL 0.5 mg/dL (0.2-1.3); TOTAL PROTEIN 5.2 g/dL (6.3-8.3)
[2016-08-28 08:08] LABS: CALCIUM 7.7 mg/dl (8.6-10.4)
[2016-08-28 08:53] LABS: NEUTROPHIL 81 % (50-75); TOTAL CELLS COUNTED 100
[2016-08-28] MEDS: Mag&Al/Simet/Diphen/Lido 237 ML KIT PO SCH ×4 (09:01→21:50)
[2016-08-28] MEDS: NIFEdipine 30 mg ER Tab PO SCH (09:03)
[2016-08-28] MEDS: Aritificial Tears (15ml) OU SCH ×4 (09:28→21:17)
[2016-08-28] MEDS: MethylPREDNISolone 40 mg Vial IVP SCH ×2 (09:29→21:17)
[2016-08-28] MEDS: Vitamins A & D Oint UD Foilpak TOP SCH ×2 (09:30→18:28)
--- NOTE | 2016-08-28 17:31 | CP.PCM.PN ---
Subjective - Date & Time of Evaluation Date of Evaluation: 08/28/16 Time of Evaluation: 17:30 - Subjective Subjective: pt seen and examined, follow up consult is dictated #[id number] s/p hd today, uf 1 lit Objective - Vital Signs/Intake and Output Vital Signs (last 24 hours): Temp Pulse Resp BP Pulse Ox 98.8 F 86 20 151/87 H 94 L 08/28/16 15:00 08/28/16 15:00 08/28/16 15:00 08/28/16 15:00 08/28/16 15:00 Intake and Output: 08/28/16 08/28/16 06:59 18:59 Intake Total 150 Balance 150 - Medications Medications: Current Medications Acetaminophen (Tylenol 325mg Tab) 650 mg PO Q6 PRN PRN Reason: Fever >100.4 F Artificial Tears (Artificial Tears) 0 ml OU QID [facility] Last Admin: 08/28/16 09:28 Dose: 1 drop Latanoprost (Xalatan Opht) 0 ml OU HS [facility] Last Admin: 08/27/16 21:26 Dose: 2.5 ml Megestrol Acetate (Megace) 40 mg PO DAILY [facility] Last Admin: 08/28/16 09:03 Dose: Not Given Methotrexate (Methotrexate) 2.5 mg PO QWK [facility] Last Admin: 08/27/16 09:25 Dose: 2.5 mg Methylprednisolone (Solu-Medrol) 20 mg IVP Q12 [facility] Last Admin: 08/28/16 09:29 Dose: 20 mg Nifedipine (Procardia Xl) 30 mg PO DAILY [facility] Last Admin: 08/28/16 09:03 Dose: Not Given Saliva Substitute (First Magic Mouthwash) 5 ml PO QID [facility] Last Admin: 08/28/16 09:01 Dose: Not Given Valacyclovir HCl (Valtrex) 500 mg PO DAILY [facility] Last Admin: 08/28/16 09:03 Dose: Not Given Vancomycin HCl (Vancocin (Oral Or Rectal Use)) 250 mg PO Q6H [facility] Last Admin: 08/28/16 09:03 Dose: Not Given Vitamin A (Vitamin A & D Oint Ud Foilpak) 1 ea TOP BID [facility] Last Admin: 08/28/16 09:30 Dose: 1 ea - Labs Labs: 08/28/16 07:48 08/28/16 07:48 PT 10.3 SECONDS (9.7-12.2) 08/26/16 06:35 INR 0.9 08/26/16 06:35 APTT 20 SECONDS (21-34) L D 08/26/16 06:35
--- NOTE | 2016-08-28 18:35 | CP.PCM.PN ---
Subjective - Date & Time of Evaluation Date of Evaluation: 08/28/16 Time of Evaluation: 17:00 - Subjective Subjective: Appears comfortable family at bedside Objective - Vital Signs/Intake and Output Vital Signs (last 24 hours): Temp Pulse Resp BP Pulse Ox 98.8 F 86 20 151/87 H 94 L 08/28/16 15:00 08/28/16 15:00 08/28/16 15:00 08/28/16 15:00 08/28/16 15:00 Intake and Output: 08/28/16 08/28/16 06:59 18:59 Intake Total 150 Balance 150 - Medications Medications: Current Medications Acetaminophen (Tylenol 325mg Tab) 650 mg PO Q6 PRN PRN Reason: Fever >100.4 F Artificial Tears (Artificial Tears) 0 ml OU QID [facility] Last Admin: 08/28/16 18:28 Dose: 1 drop Latanoprost (Xalatan Opht) 0 ml OU HS [facility] Last Admin: 08/27/16 21:26 Dose: 2.5 ml Megestrol Acetate (Megace) 40 mg PO DAILY [facility] Last Admin: 08/28/16 09:03 Dose: Not Given Methotrexate (Methotrexate) 2.5 mg PO QWK [facility] Last Admin: 08/27/16 09:25 Dose: 2.5 mg Methylprednisolone (Solu-Medrol) 20 mg IVP Q12 [facility] Last Admin: 08/28/16 09:29 Dose: 20 mg Nifedipine (Procardia Xl) 30 mg PO DAILY [facility] Last Admin: 08/28/16 09:03 Dose: Not Given Saliva Substitute (First Magic Mouthwash) 5 ml PO QID [facility] Last Admin: 08/28/16 09:01 Dose: Not Given Valacyclovir HCl (Valtrex) 500 mg PO DAILY [facility] Last Admin: 08/28/16 09:03 Dose: Not Given Vancomycin HCl (Vancocin (Oral Or Rectal Use)) 250 mg PO Q6H [facility] Last Admin: 08/28/16 16:55 Dose: 250 mg Vitamin A (Vitamin A & D Oint Ud Foilpak) 1 ea TOP BID [facility] Last Admin: 08/28/16 18:28 Dose: 1 ea - Labs Labs: 08/28/16 07:48 08/28/16 07:48 PT 10.3 SECONDS (9.7-12.2) 08/26/16 06:35 INR 0.9 08/26/16 06:35 APTT 20 SECONDS (21-34) L D 08/26/16 06:35 - Head Exam Head Exam: ATRAUMATIC - Eye Exam Eye Exam: Normal appearance - ENT Exam ENT Exam: Mucous Membranes Dry - Respiratory Exam Respiratory Exam: NORMAL BREATHING PATTERN - Cardiovascular Exam Cardiovascular Exam: +S1, +S2 - GI/Abdominal Exam GI & Abdominal Exam: Normal Bowel Sounds - Extremities Exam Extremities Exam: Normal Inspection Assessment and Plan (1) TTP (thrombotic thrombocytopenic purpura) Assessment & Plan: s/p plasma exchange plt count normal repeat CBC will taper steroids if plt stable Status: Acute
--- NOTE | 2016-08-28 20:14 | CP.PCM.PN ---
Subjective - Date & Time of Evaluation Date of Evaluation: 08/28/16 Time of Evaluation: 11:00 - Subjective Subjective: clinically same Objective - Vital Signs/Intake and Output Vital Signs (last 24 hours): Temp Pulse Resp BP Pulse Ox 98.8 F 86 20 151/87 H 94 L 08/28/16 15:00 08/28/16 15:00 08/28/16 15:00 08/28/16 15:00 08/28/16 15:00 - Medications Medications: Current Medications Acetaminophen (Tylenol 325mg Tab) 650 mg PO Q6 PRN PRN Reason: Fever >100.4 F Artificial Tears (Artificial Tears) 0 ml OU QID [facility] Last Admin: 08/28/16 18:28 Dose: 1 drop Latanoprost (Xalatan Opht) 0 ml OU HS [facility] Last Admin: 08/27/16 21:26 Dose: 2.5 ml Megestrol Acetate (Megace) 40 mg PO DAILY [facility] Last Admin: 08/28/16 09:03 Dose: Not Given Methotrexate (Methotrexate) 2.5 mg PO QWK [facility] Last Admin: 08/27/16 09:25 Dose: 2.5 mg Methylprednisolone (Solu-Medrol) 20 mg IVP Q12 [facility] Last Admin: 08/28/16 09:29 Dose: 20 mg Nifedipine (Procardia Xl) 30 mg PO DAILY [facility] Last Admin: 08/28/16 09:03 Dose: Not Given Saliva Substitute (First Magic Mouthwash) 5 ml PO QID [facility] Last Admin: 08/28/16 09:01 Dose: Not Given Valacyclovir HCl (Valtrex) 500 mg PO DAILY [facility] Last Admin: 08/28/16 09:03 Dose: Not Given Vancomycin HCl (Vancocin (Oral Or Rectal Use)) 250 mg PO Q6H [facility] Last Admin: 08/28/16 16:55 Dose: 250 mg Vitamin A (Vitamin A & D Oint Ud Foilpak) 1 ea TOP BID [facility] Last Admin: 08/28/16 18:28 Dose: 1 ea - Labs Labs: 08/28/16 07:48 08/28/16 07:48 PT 10.3 SECONDS (9.7-12.2) 08/26/16 06:35 INR 0.9 08/26/16 06:35 APTT 20 SECONDS (21-34) L D 08/26/16 06:35 - Constitutional Appears: Well - Head Exam Head Exam: ATRAUMATIC, NORMAL INSPECTION, NORMOCEPHALIC - Eye Exam Eye Exam: EOMI, Normal appearance, PERRL Pupil Exam: NORMAL ACCOMODATION, PERRL - ENT Exam ENT Exam: Mucous Membranes Moist, Normal Exam - Neck Exam Neck Exam: Full ROM, Normal Inspection. absent: Lymphadenopathy - Respiratory Exam Respiratory Exam: Decreased Breath Sounds - Cardiovascular Exam Cardiovascular Exam: REGULAR RHYTHM, +S1, +S2 - GI/Abdominal Exam GI & Abdominal Exam: Soft, Diminished Bowel Sounds - Rectal Exam Rectal Exam: Deferred Assessment and Plan (1) Cardiac dysrhythmia Status: Acute (2) ESRD (end stage renal disease) on dialysis Status: Acute (3) Pulmonary edema Status: Acute (4) MARCO (acute kidney injury) Status: Acute (5) Acute respiratory failure requiring reintubation Status: Acute (6) Arthritis Status: Acute (7) CHF (congestive heart failure) Status: Acute (8) Dehydration Status: Acute (9) Dehydration Status: Acute (10) Diverticulosis Status: Acute (11) Elevated CEA Status: Acute (12) Hypertension Status: Acute (13) Inguinal lymphadenopathy Status: Acute (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 - Assessment and Plan (Free Text) Plan: Patient comfortable Status post plasma exchange Discussed with family Labs noted No acute event overnight Methotrexate Nifedipine Valtrex Continue as advised Vancomycin Tylenol Multiple consults on board [facility] Physical therapy Labs next a.m.
[2016-08-28] MEDS: Latanoprost 2.5 ml Opht Soln OU SCH (21:17)
--- NOTE | 2016-08-29 02:03 | PN ---
LOCATION: The patient is located in room 355. REQUESTED BY: Dr. Kavon Ureña. REASON FOR FOLLOWUP: Renal failure and continuation of hemodialysis. SUBJECTIVE: Mrs. Denise Garcia is an 80-year-old elderly female from the [facility] with a history of hypertension and rheumatoid arthritis, was admitted with thrombocytopenia and altered mental status and found to have TTP and is initially started on FFP. Subsequently, the patient was started on plasmapheresis with improvement of the mental status and also thrombocytopenia. Platelet went up more than 150 and subsequently, the patient was discharged to subacute rehab with worsening platelets and altered mental status again and the patient was sent back from the long term with leakage of her defibrillator waste. The patient was found with altered mental status and thrombocytopenia, evaluated by monotyper, Dr. Montanez and found to have TTP and started on plasmapheresis. The patient received 4 treatments and last one on Thursday this week on 08/26/2016. The patient is not in acute distress, underwent hemodialysis today and had ultrafiltration of about 1 liter, not in acute distress. No chest pain. No palpitations. No fever. No cough. PHYSICAL EXAMINATION GENERAL: Ms. Denise Garcia is an 80-year-old elderly female, moderate built, moderate nourished, not in acute distress. VITAL SIGNS: This afternoon as follows, blood pressure 158/80, pulse 86, respirations 20, temperature 98.8, saturation 94%. Height 5 feet 2 inches and weight is 137 pounds. HEENT: Pupils normal and reactive to light and accommodation. Conjunctivae pink. Sclerae anicteric. Tongue is moist. Trachea is midline. LUNGS: Symmetric on both sides. Bilateral breath sounds present. No crackles. CARDIOPULMONARY: Dougherty at the sixth intercostal space, midclavicular line. S1 and S2 audible. No murmur and no gallop. ABDOMEN: Normal in appearance, soft, tympanic. No guarding. No rigidity. No hepatosplenomegaly. PATIENT CARE DIRECTOR: The patient is alert, awake, following commands appropriately. Sensory and motor system is grossly within normal limits. EXTREMITIES: No cyanosis, no clubbing. No edema. LABORATORY DATA: Include as follows as of 08/28/2016; WBC 16.3, hemoglobin 9.7, hematocrit 30.6, and platelets 147. Neutrophils 81, bands 4, lymphs 6, monos 9. Sodium 132, potassium 4.6, chloride 90, CO2 of 32, BUN 61, creatinine 5.3, glucose is 149, and calcium is 7.7. Total bilirubin 0.5, AST 34, ALT 38, alkaline phosphate 106, total protein 5.2, and albumin is 2.7. LDH as of 06/27/2016 is 693. MEDICATIONS: Her current medications include as follows, artificial tears, megestrol 40 mg p.o. daily, methotrexate 2.5 mg p.o. q. weekly,Procardia XL 30 mg p.o. daily, Solu-Medrol 20 mg IV q.12 hours, nifedipine 30 mg p.o. daily, valacyclovir 500 mg p.o. daily, and vancomycin 250 mg p.o. q.6 hours, and vitamin A and D ointment, and Xalatan eyedrops. ASSESSMENT AND PLAN: In summary, again, Ms. Dneise Garcia is an 80-year-old elderly female with hypertension, rheumatoid arthritis, and thrombocytopenia and diagnosed thrombotic thrombocytopenic purpura status post plasmapheresis x2 for recurrence of the thrombotic thrombocytopenic purpura. First one about three weeks ago and now the patient completed a second cycle of plasmapheresis during her one month to six weeks. 1. Renal failure: Most likely secondary to acute tubular necrosis, cannot rule out thrombotic microangiopathy secondary to thrombotic thrombocytopenic purpura. The patient is on hemodialysis for the last 4 weeks. No sign of improvement in the renal function. The patient need to continue hemodialysis until she recovers. 2. Hypertension. 3. Cardiomyopathy. 4. Thrombotic thrombocytopenic purpura status post plasmapheresis second time and continue Solu-Medrol. 5. Clostridium difficile colitis. The case was discussed with Dr. Montanez in round. If the patient has recurrence again, she might need immunosuppressive medicine, rituximab. We will follow with you. Thank you for allowing me to participate in your patient's care and stable hemodialysis today. Horacio Graham MD [facility]
[2016-08-29] MEDS: Vancomycin 125 MG/5 ML SOLN (ORAL/RECTAL) PO SCH ×4 (04:09→21:27)
[2016-08-29] MEDS: MethylPREDNISolone 40 mg Vial IVP SCH ×2 (10:26→10:30)
[2016-08-29] MEDS: Aritificial Tears (15ml) OU SCH ×4 (10:27→21:27)
[2016-08-29] MEDS: Mag&Al/Simet/Diphen/Lido 237 ML KIT PO SCH ×4 (10:27→21:28)
[2016-08-29] MEDS: NIFEdipine 30 mg ER Tab PO SCH (10:28)
[2016-08-29] MEDS: Vitamins A & D Oint UD Foilpak TOP SCH ×2 (10:28→17:14)
--- NOTE | 2016-08-29 16:28 | CON ---
DATE: 08/29/2016 REASON FOR CONSULTATION: Decreased vision in both eyes. HISTORY OF PRESENT ILLNESS: The patient is an 80-year-old female with history of end-stage renal disease, hypertension. Her family members report that she has been complaining that her vision has been decreasing over the last few months. The daughter reported that she had an eye exam approximately 2 months ago. PHYSICAL EXAMINATION: Exam was difficult. I was unable to take vision. Exam was done at bedside. Her right eye has a dense cataract looking back at her retina. Her retina his flat. There does appear to be nerve cupping due to glaucoma and may be some signs of macular degeneration. In her left eye, she has had cataract surgery. She has a clear lens again. She does have signs of glaucoma nerve in her left eye, some signs of macular degeneration. At this point, she has dense cataract in her right eye. I instructed the daughter that once she is discharged, she can be seen in the office to further evaluate her cataracts and her retina. If there are any questions, they can always call the office, . Sarbjit Romero MD
--- NOTE | 2016-08-29 17:24 | CP.PCM.PN ---
Subjective - Date & Time of Evaluation Date of Evaluation: 08/29/16 Time of Evaluation: 09:40 - Subjective Subjective: clinically same Objective - Vital Signs/Intake and Output Vital Signs (last 24 hours): Temp Pulse Resp BP Pulse Ox 98.8 F 89 18 155/54 H 97 08/29/16 16:00 08/29/16 16:00 08/29/16 16:00 08/29/16 16:00 08/29/16 16:00 Intake and Output: 08/29/16 08/29/16 06:59 18:59 Intake Total 200 540 Balance 200 540 - Medications Medications: Current Medications Acetaminophen (Tylenol 325mg Tab) 650 mg PO Q6 PRN PRN Reason: Fever >100.4 F Artificial Tears (Artificial Tears) 0 ml OU QID [facility] Last Admin: 08/29/16 17:14 Dose: 1 drop Latanoprost (Xalatan Opht) 0 ml OU HS [facility] Last Admin: 08/28/16 21:17 Dose: 2.5 ml Megestrol Acetate (Megace) 40 mg PO DAILY [facility] Last Admin: 08/29/16 10:28 Dose: 40 mg Methotrexate (Methotrexate) 2.5 mg PO QWK [facility] Last Admin: 08/27/16 09:25 Dose: 2.5 mg Nifedipine (Procardia Xl) 30 mg PO DAILY [facility] Last Admin: 08/29/16 10:28 Dose: 30 mg Prednisone (Prednisone Tab) 20 mg PO DAILY [facility] Saliva Substitute (First Magic Mouthwash) 5 ml PO QID [facility] Last Admin: 08/29/16 17:14 Dose: 5 ml Valacyclovir HCl (Valtrex) 500 mg PO DAILY [facility] Last Admin: 08/29/16 10:27 Dose: 500 mg Vancomycin HCl (Vancocin (Oral Or Rectal Use)) 250 mg PO Q6H [facility] Last Admin: 08/29/16 16:41 Dose: 250 mg Vitamin A (Vitamin A & D Oint Ud Foilpak) 1 ea TOP BID [facility] Last Admin: 08/29/16 17:14 Dose: 1 ea - Labs Labs: 08/28/16 07:48 08/28/16 07:48 PT 10.3 SECONDS (9.7-12.2) 08/26/16 06:35 INR 0.9 08/26/16 06:35 APTT 20 SECONDS (21-34) L D 08/26/16 06:35 - Constitutional Appears: Well - Head Exam Head Exam: ATRAUMATIC, NORMAL INSPECTION, NORMOCEPHALIC - Eye Exam Eye Exam: EOMI, Normal appearance, PERRL Pupil Exam: NORMAL ACCOMODATION, PERRL - ENT Exam ENT Exam: Mucous Membranes Moist, Normal Exam - Neck Exam Neck Exam: Full ROM, Normal Inspection. absent: Lymphadenopathy - Respiratory Exam Respiratory Exam: Decreased Breath Sounds - Cardiovascular Exam Cardiovascular Exam: REGULAR RHYTHM, +S1 - GI/Abdominal Exam GI & Abdominal Exam: Soft, Diminished Bowel Sounds - Rectal Exam Rectal Exam: Deferred Assessment and Plan (1) Cardiac dysrhythmia Status: Acute (2) ESRD (end stage renal disease) on dialysis Status: Acute (3) Pulmonary edema Status: Acute (4) MARCO (acute kidney injury) Status: Acute (5) Acute respiratory failure requiring reintubation Status: Acute (6) Arthritis Status: Acute (7) CHF (congestive heart failure) Status: Acute (8) Dehydration Status: Acute (9) Dehydration Status: Acute (10) Diverticulosis Status: Acute (11) Elevated CEA Status: Acute (12) Hypertension Status: Acute (13) Inguinal lymphadenopathy Status: Acute (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
--- NOTE | 2016-08-29 18:01 | CP.PCM.PN ---
Subjective - Date & Time of Evaluation Date of Evaluation: 08/29/16 Time of Evaluation: 18:01 - Subjective Subjective: pt seen and examined, follow up consult is dictated #[id number] Objective - Vital Signs/Intake and Output Vital Signs (last 24 hours): Temp Pulse Resp BP Pulse Ox 98.8 F 89 18 155/54 H 97 08/29/16 16:00 08/29/16 16:00 08/29/16 16:00 08/29/16 16:00 08/29/16 16:00 Intake and Output: 08/29/16 08/29/16 06:59 18:59 Intake Total 200 540 Balance 200 540 - Medications Medications: Current Medications Acetaminophen (Tylenol 325mg Tab) 650 mg PO Q6 PRN PRN Reason: Fever >100.4 F Artificial Tears (Artificial Tears) 0 ml OU QID [facility] Last Admin: 08/29/16 17:14 Dose: 1 drop Latanoprost (Xalatan Opht) 0 ml OU HS [facility] Last Admin: 08/28/16 21:17 Dose: 2.5 ml Megestrol Acetate (Megace) 40 mg PO DAILY [facility] Last Admin: 08/29/16 10:28 Dose: 40 mg Methotrexate (Methotrexate) 2.5 mg PO QWK [facility] Last Admin: 08/27/16 09:25 Dose: 2.5 mg Nifedipine (Procardia Xl) 30 mg PO DAILY [facility] Last Admin: 08/29/16 10:28 Dose: 30 mg Prednisone (Prednisone Tab) 20 mg PO DAILY [facility] Saliva Substitute (First Magic Mouthwash) 5 ml PO QID [facility] Last Admin: 08/29/16 17:14 Dose: 5 ml Valacyclovir HCl (Valtrex) 500 mg PO DAILY [facility] Last Admin: 08/29/16 10:27 Dose: 500 mg Vancomycin HCl (Vancocin (Oral Or Rectal Use)) 250 mg PO Q6H [facility] Last Admin: 08/29/16 16:41 Dose: 250 mg Vitamin A (Vitamin A & D Oint Ud Foilpak) 1 ea TOP BID [facility] Last Admin: 08/29/16 17:14 Dose: 1 ea - Labs Labs: 08/28/16 07:48 08/28/16 07:48 PT 10.3 SECONDS (9.7-12.2) 08/26/16 06:35 INR 0.9 08/26/16 06:35 APTT 20 SECONDS (21-34) L D 08/26/16 06:35
[2016-08-29] MEDS: Latanoprost 2.5 ml Opht Soln OU SCH (21:27)
[2016-08-29] MEDS ORDERED: Paricalcitol 2 mcg/ml Inj IV ONE (23:13)
[2016-08-30] MEDS: Vancomycin 125 MG/5 ML SOLN (ORAL/RECTAL) PO SCH ×5 (04:00→22:05)
[2016-08-30] MEDS ORDERED: Ferric Sodium Gluconat Complex 62.5 mg/5 ml Vial IVPB ONE (10:00)
[2016-08-30] MEDS ORDERED: Epoetin Alfa 10,000 unit/ml Dialysis SC SCH (10:00)
[2016-08-30] MEDS: NIFEdipine 30 mg ER Tab PO SCH ×2 (10:55→14:13)
[2016-08-30] MEDS: Vitamins A & D Oint UD Foilpak TOP SCH ×3 (10:55→17:59)
[2016-08-30] MEDS: Aritificial Tears (15ml) OU SCH ×4 (10:55→22:04)
[2016-08-30] MEDS: Mag&Al/Simet/Diphen/Lido 237 ML KIT PO SCH ×4 (10:55→22:10)
--- NOTE | 2016-08-30 13:14 | CP.PCM.PN ---
Subjective - Date & Time of Evaluation Date of Evaluation: 08/30/16 Time of Evaluation: 10:00 - Subjective Subjective: clinically same Objective - Vital Signs/Intake and Output Vital Signs (last 24 hours): Temp Pulse Resp BP Pulse Ox 98.1 F 82 16 146/90 96 08/30/16 10:10 08/30/16 10:10 08/30/16 10:10 08/30/16 12:27 08/30/16 10:10 - Medications Medications: Current Medications Acetaminophen (Tylenol 325mg Tab) 650 mg PO Q6 PRN PRN Reason: Fever >100.4 F Artificial Tears (Artificial Tears) 0 ml OU QID [facility] Last Admin: 08/30/16 10:55 Dose: Not Given Epoetin Herve (Procrit) 10,000 unit SC TTS [facility] Last Admin: 08/30/16 10:31 Dose: 10,000 unit Latanoprost (Xalatan Opht) 0 ml OU HS [facility] Last Admin: 08/29/16 21:27 Dose: 2.5 ml Megestrol Acetate (Megace) 40 mg PO DAILY [facility] Last Admin: 08/30/16 10:55 Dose: Not Given Methotrexate (Methotrexate) 2.5 mg PO QWK [facility] Last Admin: 08/27/16 09:25 Dose: 2.5 mg Nifedipine (Procardia Xl) 30 mg PO DAILY [facility] Last Admin: 08/30/16 10:55 Dose: Not Given Prednisone (Prednisone Tab) 20 mg PO DAILY [facility] Last Admin: 08/30/16 10:55 Dose: Not Given Saliva Substitute (First Magic Mouthwash) 5 ml PO QID [facility] Last Admin: 08/30/16 10:55 Dose: Not Given Valacyclovir HCl (Valtrex) 500 mg PO DAILY [facility] Last Admin: 08/30/16 10:55 Dose: Not Given Vancomycin HCl (Vancocin (Oral Or Rectal Use)) 250 mg PO Q6H [facility] Last Admin: 08/30/16 10:55 Dose: Not Given Vitamin A (Vitamin A & D Oint Ud Foilpak) 1 ea TOP BID [facility] Last Admin: 08/30/16 10:55 Dose: Not Given - Labs Labs: 08/28/16 07:48 08/28/16 07:48 PT 10.3 SECONDS (9.7-12.2) 07/18/17 06:35 INR 0.9 08/26/16 06:35 APTT 20 SECONDS (21-34) L D 08/26/16 06:35 - Constitutional Appears: Well - Head Exam Head Exam: ATRAUMATIC, NORMAL INSPECTION, NORMOCEPHALIC - Eye Exam Eye Exam: EOMI, Normal appearance, PERRL Pupil Exam: NORMAL ACCOMODATION, PERRL - ENT Exam ENT Exam: Mucous Membranes Moist, Normal Exam - Neck Exam Neck Exam: Full ROM, Normal Inspection. absent: Lymphadenopathy - Respiratory Exam Respiratory Exam: Decreased Breath Sounds - Cardiovascular Exam Cardiovascular Exam: REGULAR RHYTHM, +S1, +S2 - GI/Abdominal Exam GI & Abdominal Exam: Soft, Diminished Bowel Sounds - Rectal Exam Rectal Exam: Deferred Assessment and Plan (1) Cardiac dysrhythmia Status: Acute (2) ESRD (end stage renal disease) on dialysis Status: Acute (3) Pulmonary edema Status: Acute (4) MARCO (acute kidney injury) Status: Acute (5) Acute respiratory failure requiring reintubation Status: Acute (6) Arthritis Status: Acute (7) CHF (congestive heart failure) Status: Acute (8) Dehydration Status: Acute (9) Dehydration Status: Acute (10) Diverticulosis Status: Acute (11) Elevated CEA Status: Acute (12) Hypertension Status: Acute (13) Inguinal lymphadenopathy Status: Acute (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
--- NOTE | 2016-08-30 13:55 | CP.PCM.PN ---
Subjective - Date & Time of Evaluation Date of Evaluation: 08/30/16 Time of Evaluation: 13:54 - Subjective Subjective: pt seen and examined during hd, stable hd tx, uf 1 lit, follow up consult is dictated #[id number] Objective - Vital Signs/Intake and Output Vital Signs (last 24 hours): Temp Pulse Resp BP Pulse Ox 98.1 F 82 16 130/82 96 08/30/16 10:10 08/30/16 10:10 08/30/16 10:10 08/30/16 12:40 08/30/16 10:10 - Medications Medications: Current Medications Acetaminophen (Tylenol 325mg Tab) 650 mg PO Q6 PRN PRN Reason: Fever >100.4 F Artificial Tears (Artificial Tears) 0 ml OU QID [facility] Last Admin: 08/30/16 10:55 Dose: Not Given Epoetin Herve (Procrit) 10,000 unit SC TTS [facility] Last Admin: 08/30/16 10:31 Dose: 10,000 unit Latanoprost (Xalatan Opht) 0 ml OU HS [facility] Last Admin: 08/29/16 21:27 Dose: 2.5 ml Megestrol Acetate (Megace) 40 mg PO DAILY [facility] Last Admin: 08/30/16 10:55 Dose: Not Given Methotrexate (Methotrexate) 2.5 mg PO QWK [facility] Last Admin: 08/27/16 09:25 Dose: 2.5 mg Nifedipine (Procardia Xl) 30 mg PO DAILY [facility] Last Admin: 08/30/16 10:55 Dose: Not Given Prednisone (Prednisone Tab) 20 mg PO DAILY [facility] Last Admin: 08/30/16 10:55 Dose: Not Given Saliva Substitute (First Magic Mouthwash) 5 ml PO QID [facility] Last Admin: 08/30/16 10:55 Dose: Not Given Valacyclovir HCl (Valtrex) 500 mg PO DAILY [facility] Last Admin: 08/30/16 10:55 Dose: Not Given Vancomycin HCl (Vancocin (Oral Or Rectal Use)) 250 mg PO Q6H [facility] Last Admin: 08/30/16 10:55 Dose: Not Given Vitamin A (Vitamin A & D Oint Ud Foilpak) 1 ea TOP BID [facility] Last Admin: 08/30/16 10:55 Dose: Not Given - Labs Labs: 08/28/16 07:48 08/28/16 07:48 PT 10.3 SECONDS (9.7-12.2) 08/26/16 06:35 INR 0.9 08/26/16 06:35 APTT 20 SECONDS (21-34) L D 08/26/16 06:35
[2016-08-30] MEDS: Latanoprost 2.5 ml Opht Soln OU SCH (22:04)
--- NOTE | 2016-08-31 00:09 | PN ---
FOLLOWUP RENAL CONSULTATION The patient is located in room 557, bed A. REQUESTED BY: Dr. Kavon Ureña. REASON FOR EVALUATION: Follow up renal failure and continuation of hemodialysis. SUBJECTIVE: Mrs. Denise Garcia is an 80-year-old elderly female with history of longstanding hypertension, rheumatoid arthritis, recurrent TTP, status post plasmapheresis x2 during 2 admissions on steroids as per the inspector fuel hose and the patient underwent hemodialysis this afternoon and had UF about 1 L post-dialysis and vital signs are stable with a blood pressure 143/81. The patient is resting comfortably, not in acute distress, and no complaints. PHYSICAL EXAMINATION: GENERAL: Mrs. Denise Garcia is an 80-year-old elderly female, moderately built, moderately nourished, and not in acute distress. VITAL SIGNS: Blood pressure 122/70, pulse 62, respirations 20, temperature 98.2, height 5 feet 2 inches, and weight is 137 pounds. HEENT: Pupils normal, reactive to light and accommodation. Conjunctivae pink. Sclerae anicteric. Tongue is moist. Trachea is midline. CARDIOVASCULAR: Homer of the fifth intercostal space, midclavicular line. S1 and S2 audible No murmur or gallop. LUNGS: Symmetric on both sides. Bilateral breath sounds present. No crackles. ABDOMEN: Normal in appearance, soft, and tympanic. No guarding. No rigidity. No hepatosplenomegaly. CENTRAL NERVOUS SYSTEM: The patient is alert, awake, and following commands. EXTREMITIES: No cyanosis, no clubbing, and no edema. Sensory and motor examination is grossly within normal limits. LABORATORY DATA: Accu-Chek 137 and 149, no other labs are available today. CURRENT MEDICATIONS: Include as follows; artificial tears and Megace 40 mg p.o. daily, methotrexate 2.5 mg p.o. every weekly, prednisone 20 mg p.o. daily, Procardia XL 30 mg p.o. daily, Procrit 10,000 units 3 times a week, Tylenol 650 mg p.o. q.6 hours p.r.n., valacyclovir 500 mg p.o. daily, vancomycin 250 mg p.o. q.6 hours and vitamin A and D ointment topical b.i.d., Xalatan eyedrops, Ferrlecit 125 mg IV piggyback x1, and Zemplar 2 mcg IV piggyback x1. SUMMARY: Mrs. Denise Garcia is an 80-year-old elderly female with hypertension, rheumatoid arthritis, thrombocytopenia secondary to TTP, status post plasmapheresis x4 treatments since last admission and also another 4 treatments during this admission, on steroids, and on hemodialysis also 3 times a week. 1. Renal failure, continue hemodialysis 3 times a week Thursday, , and Thursday. 2. Hypertension, continue her current blood pressure medication Procardia XL. 3. Cardiomyopathy. 4. TTP, continue prednisone as per inspector fuel hose, Dr. Montanez. Follow up CBC and BMP on Thursday. We will follow with you. Thank you for allowing me to participate in your patient's care in stable hemodialysis treatment. Horacio Graham MD
[2016-08-31] MEDS: Vancomycin 125 MG/5 ML SOLN (ORAL/RECTAL) PO SCH ×4 (03:11→21:42)
[2016-08-31] MEDS: Vitamins A & D Oint UD Foilpak TOP SCH ×2 (10:17→17:21)
[2016-08-31] MEDS: Mag&Al/Simet/Diphen/Lido 237 ML KIT PO SCH ×3 (10:17→17:21)
[2016-08-31] MEDS: Aritificial Tears (15ml) OU SCH ×4 (10:18→21:41)
[2016-08-31] MEDS: NIFEdipine 30 mg ER Tab PO SCH (10:18)
--- NOTE | 2016-08-31 12:38 | CP.PCM.PN ---
Subjective - Date & Time of Evaluation Date of Evaluation: 08/31/16 Time of Evaluation: 10:40 - Subjective Subjective: clinically same Objective - Vital Signs/Intake and Output Vital Signs (last 24 hours): Temp Pulse Resp BP Pulse Ox 97.6 F 79 18 169/65 H 93 L 08/31/16 07:00 08/31/16 07:00 08/31/16 07:00 08/31/16 07:00 08/31/16 07:00 Intake and Output: 08/31/16 08/31/16 06:59 18:59 Intake Total 30 Balance 30 - Medications Medications: Current Medications Acetaminophen (Tylenol 325mg Tab) 650 mg PO Q6 PRN PRN Reason: Fever >100.4 F Artificial Tears (Artificial Tears) 0 ml OU QID [facility] Last Admin: 08/31/16 10:18 Dose: 1 drop Epoetin Herve (Procrit) 10,000 unit SC TTS [facility] Last Admin: 08/30/16 10:31 Dose: 10,000 unit Latanoprost (Xalatan Opht) 0 ml OU HS [facility] Last Admin: 08/30/16 22:04 Dose: 1 ml Megestrol Acetate (Megace) 40 mg PO DAILY [facility] Last Admin: 08/31/16 10:18 Dose: 40 mg Methotrexate (Methotrexate) 2.5 mg PO QWK [facility] Last Admin: 08/27/16 09:25 Dose: 2.5 mg Nifedipine (Procardia Xl) 30 mg PO DAILY [facility] Last Admin: 08/31/16 10:18 Dose: 30 mg Prednisone (Prednisone Tab) 20 mg PO DAILY [facility] Last Admin: 08/31/16 10:18 Dose: 20 mg Saliva Substitute (First Magic Mouthwash) 5 ml PO QID [facility] Last Admin: 08/31/16 10:17 Dose: 5 ml Valacyclovir HCl (Valtrex) 500 mg PO DAILY [facility] Last Admin: 08/31/16 10:18 Dose: 500 mg Vancomycin HCl (Vancocin (Oral Or Rectal Use)) 250 mg PO Q6H [facility] Last Admin: 08/31/16 10:54 Dose: 250 mg Vitamin A (Vitamin A & D Oint Ud Foilpak) 1 ea TOP BID [facility] Last Admin: 08/31/16 10:17 Dose: 1 ea - Labs Labs: 08/28/16 07:48 08/28/16 07:48 PT 10.3 SECONDS (9.7-12.2) 08/26/16 06:35 INR 0.9 08/26/16 06:35 APTT 20 SECONDS (21-34) L D 08/26/16 06:35 - Constitutional Appears: Well - Head Exam Head Exam: ATRAUMATIC, NORMAL INSPECTION, NORMOCEPHALIC - Eye Exam Eye Exam: EOMI, Normal appearance, PERRL - ENT Exam ENT Exam: Mucous Membranes Moist, Normal Exam - Neck Exam Neck Exam: Full ROM, Normal Inspection. absent: Lymphadenopathy - Respiratory Exam Respiratory Exam: Decreased Breath Sounds - Cardiovascular Exam Cardiovascular Exam: REGULAR RHYTHM, +S1, +S2. absent: Murmur - GI/Abdominal Exam GI & Abdominal Exam: Soft, Diminished Bowel Sounds - Rectal Exam Rectal Exam: Deferred Assessment and Plan (1) Cardiac dysrhythmia Status: Acute (2) ESRD (end stage renal disease) on dialysis Status: Acute (3) Pulmonary edema Status: Acute (4) MARCO (acute kidney injury) Status: Acute (5) Acute respiratory failure requiring reintubation Status: Acute (6) Arthritis Status: Acute (7) CHF (congestive heart failure) Status: Acute (8) Dehydration Status: Acute (9) Dehydration Status: Acute (10) Diverticulosis Status: Acute (11) Elevated CEA Status: Acute (12) Hypertension Status: Acute (13) Inguinal lymphadenopathy Status: Acute (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
--- NOTE | 2016-08-31 14:35 | CP.PCM.PN ---
Subjective - Date & Time of Evaluation Date of Evaluation: 08/29/16 Time of Evaluation: 13:00 - Subjective Subjective: Appears comfortable Objective - Vital Signs/Intake and Output Vital Signs (last 24 hours): Temp Pulse Resp BP Pulse Ox 97.6 F 79 18 169/65 H 93 L 08/31/16 07:00 08/31/16 07:00 08/31/16 07:00 08/31/16 07:00 08/31/16 07:00 Intake and Output: 08/31/16 08/31/16 06:59 18:59 Intake Total 30 Balance 30 - Medications Medications: Current Medications Acetaminophen (Tylenol 325mg Tab) 650 mg PO Q6 PRN PRN Reason: Fever >100.4 F Artificial Tears (Artificial Tears) 0 ml OU QID [facility] Last Admin: 08/31/16 13:35 Dose: 1 drop Epoetin Herve (Procrit) 10,000 unit SC TTS [facility] Last Admin: 08/30/16 10:31 Dose: 10,000 unit Latanoprost (Xalatan Opht) 0 ml OU HS [facility] Last Admin: 08/30/16 22:04 Dose: 1 ml Megestrol Acetate (Megace) 40 mg PO DAILY [facility] Last Admin: 08/31/16 10:18 Dose: 40 mg Methotrexate (Methotrexate) 2.5 mg PO QWK [facility] Last Admin: 08/27/16 09:25 Dose: 2.5 mg Nifedipine (Procardia Xl) 30 mg PO DAILY [facility] Last Admin: 08/31/16 10:18 Dose: 30 mg Prednisone (Prednisone Tab) 20 mg PO DAILY [facility] Last Admin: 08/31/16 10:18 Dose: 20 mg Saliva Substitute (First Magic Mouthwash) 5 ml PO QID [facility] Last Admin: 08/31/16 13:35 Dose: 5 ml Valacyclovir HCl (Valtrex) 500 mg PO DAILY [facility] Last Admin: 08/31/16 10:18 Dose: 500 mg Vancomycin HCl (Vancocin (Oral Or Rectal Use)) 250 mg PO Q6H [facility] Last Admin: 08/31/16 10:54 Dose: 250 mg Vitamin A (Vitamin A & D Oint Ud Foilpak) 1 ea TOP BID [facility] Last Admin: 08/31/16 10:17 Dose: 1 ea - Labs Labs: 08/28/16 07:48 08/28/16 07:48 PT 10.3 SECONDS (9.7-12.2) 08/26/16 06:35 INR 0.9 08/26/16 06:35 APTT 20 SECONDS (21-34) L D 08/26/16 06:35 - Head Exam Head Exam: ATRAUMATIC - Eye Exam Eye Exam: Normal appearance - ENT Exam ENT Exam: Mucous Membranes Dry - Respiratory Exam Respiratory Exam: NORMAL BREATHING PATTERN - Cardiovascular Exam Cardiovascular Exam: +S1, +S2 - GI/Abdominal Exam GI & Abdominal Exam: Normal Bowel Sounds Assessment and Plan (1) TTP (thrombotic thrombocytopenic purpura) Assessment & Plan: s/p plasma exchange platelet count normalized repeat blood work Status: Acute
--- NOTE | 2016-08-31 14:38 | CP.PCM.PN ---
Subjective - Date & Time of Evaluation Date of Evaluation: 08/30/16 Time of Evaluation: 17:00 - Subjective Subjective: Appears comfortable Objective - Vital Signs/Intake and Output Vital Signs (last 24 hours): Temp Pulse Resp BP Pulse Ox 97.6 F 79 18 169/65 H 93 L 08/31/16 07:00 08/31/16 07:00 08/31/16 07:00 08/31/16 07:00 08/31/16 07:00 Intake and Output: 08/31/16 08/31/16 06:59 18:59 Intake Total 30 Balance 30 - Medications Medications: Current Medications Acetaminophen (Tylenol 325mg Tab) 650 mg PO Q6 PRN PRN Reason: Fever >100.4 F Artificial Tears (Artificial Tears) 0 ml OU QID [facility] Last Admin: 08/31/16 13:35 Dose: 1 drop Epoetin Herve (Procrit) 10,000 unit SC TTS [facility] Last Admin: 08/30/16 10:31 Dose: 10,000 unit Latanoprost (Xalatan Opht) 0 ml OU HS [facility] Last Admin: 08/30/16 22:04 Dose: 1 ml Megestrol Acetate (Megace) 40 mg PO DAILY [facility] Last Admin: 08/31/16 10:18 Dose: 40 mg Methotrexate (Methotrexate) 2.5 mg PO QWK [facility] Last Admin: 08/27/16 09:25 Dose: 2.5 mg Nifedipine (Procardia Xl) 30 mg PO DAILY [facility] Last Admin: 08/31/16 10:18 Dose: 30 mg Prednisone (Prednisone Tab) 20 mg PO DAILY [facility] Last Admin: 08/31/16 10:18 Dose: 20 mg Saliva Substitute (First Magic Mouthwash) 5 ml PO QID [facility] Last Admin: 08/31/16 13:35 Dose: 5 ml Valacyclovir HCl (Valtrex) 500 mg PO DAILY [facility] Last Admin: 08/31/16 10:18 Dose: 500 mg Vancomycin HCl (Vancocin (Oral Or Rectal Use)) 250 mg PO Q6H [facility] Last Admin: 08/31/16 10:54 Dose: 250 mg Vitamin A (Vitamin A & D Oint Ud Foilpak) 1 ea TOP BID [facility] Last Admin: 08/31/16 10:17 Dose: 1 ea - Labs Labs: 08/28/16 07:48 08/28/16 07:48 PT 10.3 SECONDS (9.7-12.2) 08/26/16 06:35 INR 0.9 08/26/16 06:35 APTT 20 SECONDS (21-34) L D 08/26/16 06:35 - Head Exam Head Exam: ATRAUMATIC - Eye Exam Eye Exam: Normal appearance - ENT Exam ENT Exam: Mucous Membranes Dry - Respiratory Exam Respiratory Exam: NORMAL BREATHING PATTERN - Cardiovascular Exam Cardiovascular Exam: +S1, +S2 - GI/Abdominal Exam GI & Abdominal Exam: Normal Bowel Sounds - Extremities Exam Extremities Exam: Pedal Edema Assessment and Plan (1) TTP (thrombotic thrombocytopenic purpura) Assessment & Plan: s/p plasma exchange platelet count normalized repeat blood work Status: Acute
--- NOTE | 2016-08-31 15:20 | CP.PCM.PN ---
Subjective - Date & Time of Evaluation Date of Evaluation: 08/31/16 Time of Evaluation: 15:20 - Subjective Subjective: pt seen and examined, follow up consult is dictated #[id number] check labs in am Objective - Vital Signs/Intake and Output Vital Signs (last 24 hours): Temp Pulse Resp BP Pulse Ox 97.6 F 79 18 169/65 H 93 L 08/31/16 07:00 08/31/16 07:00 08/31/16 07:00 08/31/16 07:00 08/31/16 07:00 Intake and Output: 08/31/16 08/31/16 06:59 18:59 Intake Total 30 Balance 30 - Medications Medications: Current Medications Acetaminophen (Tylenol 325mg Tab) 650 mg PO Q6 PRN PRN Reason: Fever >100.4 F Artificial Tears (Artificial Tears) 0 ml OU QID [facility] Last Admin: 08/31/16 13:35 Dose: 1 drop Epoetin Herve (Procrit) 10,000 unit SC TTS [facility] Last Admin: 08/30/16 10:31 Dose: 10,000 unit Latanoprost (Xalatan Opht) 0 ml OU HS [facility] Last Admin: 08/30/16 22:04 Dose: 1 ml Megestrol Acetate (Megace) 40 mg PO DAILY [facility] Last Admin: 08/31/16 10:18 Dose: 40 mg Methotrexate (Methotrexate) 2.5 mg PO QWK [facility] Last Admin: 08/27/16 09:25 Dose: 2.5 mg Nifedipine (Procardia Xl) 30 mg PO DAILY [facility] Last Admin: 08/31/16 10:18 Dose: 30 mg Prednisone (Prednisone Tab) 20 mg PO DAILY [facility] Last Admin: 08/31/16 10:18 Dose: 20 mg Saliva Substitute (First Magic Mouthwash) 5 ml PO QID [facility] Last Admin: 08/31/16 13:35 Dose: 5 ml Valacyclovir HCl (Valtrex) 500 mg PO DAILY [facility] Last Admin: 08/31/16 10:18 Dose: 500 mg Vancomycin HCl (Vancocin (Oral Or Rectal Use)) 250 mg PO Q6H [facility] Last Admin: 08/31/16 10:54 Dose: 250 mg Vitamin A (Vitamin A & D Oint Ud Foilpak) 1 ea TOP BID [facility] Last Admin: 08/31/16 10:17 Dose: 1 ea - Labs Labs: 08/28/16 07:48 08/28/16 07:48 PT 10.3 SECONDS (9.7-12.2) 08/26/16 06:35 INR 0.9 08/26/16 06:35 APTT 20 SECONDS (21-34) L D 08/26/16 06:35
[2016-08-31] MEDS: Latanoprost 2.5 ml Opht Soln OU SCH (21:41)
--- NOTE | 2016-09-01 02:58 | PN ---
FOLLOWUP RENAL CONSULTATION LOCATION: The patient is located in room 557, bed A. REQUESTED BY: Dr. Kavon Ureña. REASON FOR FOLLOWUP: Renal failure and continuation of hemodialysis, TTP, hypertension, rheumatoid arthritis. SUBJECTIVE: Mrs. Denise Garcia is a 80 years old elderly female with history of hypertension, rheumatoid arthritis, cardiomyopathy, thrombocytopenia,anemia, TTP, status post plasmapheresis who was admitted from the intermediate with leakage of greenish material from the LifeVest. The patient was found to have thrombocytopenia and found to have and seen by research nurse, Dr. Montanez and we started again plasmapheresis x4 treatment during this admission. Now patient is feeling better. Not in any acute distress and responding appropriately following comments and no complaints. The patient's daughter at bedside. PHYSICAL EXAMINATION: VITAL SIGNS: Blood pressure 169/65, pulse 79, respirations 18, temperature 97.6, and saturation 93%. Height 5 feet 2 inches and weight 144 pounds. GENERAL: The patient is an 80 years old elderly female, moderately built, moderately nourished, and not in acute distress. HEENT: Pupils normal, reactive to light and accommodation. Conjunctivae pink. Sclerae anicteric. Tongue is moist. Trachea is midline. LUNGS: Symmetrical on both sides. Bilateral breath sounds present and clear on auscultation. CARDIOVASCULAR: [place] of the fifth intercostal space midclavicular line. S1 and S2 audible No murmur or gallop. ABDOMEN: Normal in appearance, soft, and tympanic. No guarding. No rigidity. No hepatosplenomegaly. CENTRAL NERVOUS SYSTEM: The patient is awake, alert, oriented x2 to x3. Sensory and motor system is grossly within normal limits. EXTREMITIES: No cyanosis, no clubbing, and no edema. CURRENT MEDICATIONS: Include as follows; artificial tears and Megace 40 mg p.o. daily, methotrexate 2.5 mg p.o. every weekly, prednisone 20 mg p.o. daily, Procardia XL 30 mg p.o. daily, Procrit 10,000 units 3 times a week, Tylenol and valacyclovir 500 mg p.o. daily, vancomycin 250 mg p.o. q.6 hours, vitamin A and D ointment topical,and Xalatan eyedrops. Her Accu-Chek as follow 123, 157 and 148. SUMMARY: Mrs. Denise Garcia is an 80 years old elderly female with hypertension, rheumatoid arthritis, thrombocytopenia, anemia, renal failure, TTP, status post plasmapheresis x4 during this admission and also from the last admission. 1. Renal failure most likely acute on chronic. 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 The patient's family is not interested in taking biopsy. 2. Hypertension, blood pressure is stable continue Procardia daily. 3. Cardiomyopathy. 4. TTP, continue Solu-Medrol. 5. Anemia, we will continue Procrit 3 times a week and also we will add Nephrocaps 1 tablet daily. Repeat BMP and CBC in a.m. phosphorus level and albumin. Thank you for allowing me to participate in your patient's care. Horacio Graham MD cc:
[2016-09-01] MEDS: Vancomycin 125 MG/5 ML SOLN (ORAL/RECTAL) PO SCH ×4 (04:19→22:05)
--- NOTE | 2016-09-01 04:28 | CON ---
The patient is located in room 557, bed A. REQUESTED BY: Dr. Kavon Ureña. REASON FOR FOLLOWUP: Renal failure and continuation of hemodialysis, TTP, hypertension. SUBJECTIVE: Ms. Denise Garcia is an 80 years old elderly female with past medical history significant for hypertension, rheumatoid arthritis, who was admitted about a month ago with altered mental status, thrombocytopenia and renal failure, found to have cardiomyopathy and CHF status post intubation and found to have a TTP, started on plasmapheresis x4-5 treatments. Subsequently, they transferred to the medical floor. From there, the patient was sent to subacute rehab and returned to [facility] after 2 days with leakage of the liquid from the defibrillator vest. The patient was also found to have worsening mental status and thrombocytopenia, started on plasmapheresis by metal casket assembler, Dr. Montanez. Now the patient is feeling much better, not in acute distress, denies any complaints, appetite is improving. No chest pain, no palpitation, no fever, no cough, no abdominal pain, no nausea or vomiting. The patient's daughter is at bedside, who is translating. PHYSICAL EXAMINATION GENERAL: Ms. Denise Garcia is an 80 years old elderly female, moderately built, moderately nourished, not in any distress. VITAL SIGNS: As follows; blood pressure 155/54, pulse 89, respirations 18, temperature 98.8, saturation 95%, height is 5 feet 2 inches and weight is 137 pounds. HEENT: Pupils normal and reactive to light and accommodation. Conjunctivae pink. Sclerae anicteric. Tongue is moist. Trachea is midline. CARDIOVASCULAR: [place] at the fifth intercostal space, midclavicular line. S1 and S2 audible. No murmur or gallop. LUNGS: Symmetric on both sides, bilateral breath sounds present, clear on auscultation. ABDOMEN: Normal in appearance, soft, and tympanic. No guarding. No rigidity. No hepatosplenomegaly. WINDOW GLAZIER: The patient is alert, awake and oriented x2-3. Sensory and motor systems are grossly within normal limits. EXTREMITIES: No cyanosis. No clubbing. No edema. LABORATORY DATA: No new labs are available. Accu-Cheks 169,183, 193 and 205. MEDICATIONS: Her current medications include as follows, artificial tears, saliva substitutes, Megace 40 mg p.o. daily, methotrexate 2.5 mg p.o. q. weekly, prednisone 20 mg p.o. daily, Procardia XL 30 mg p.o. daily, Tylenol 325 mg p.o. q. 6 hours, valacyclovir 500 mg p.o. daily, vancomycin 250 mg p.o. q. 6 hours, Xalatan eyedrops and vitamin A and D ointment topical. ASSESSMENT AND PLAN: Ms. Denise Garcia is an 80 years old elderly female with history of hypertension, rheumatoid arthritis, thrombotic thrombocytopenic purpura, cardiomyopathy, renal failure on hemodialysis 3 times a week; Thursday, , and Thursday and low hemoglobin and hematocrit. 1. Renal failure; most likely acute on chronic kidney disease. 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 2. Hypertension, blood pressure is stable. 3. 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 Rule out iron deficiency anemia. 4. Status post thrombotic thrombocytopenic purpura, continuing off plasmapheresis after four treatments and now the patient is on prednisone 20 mg starting to take. Continue steroids as per metal casket assembler recommendations. Repeat CBC, BMP, phosphorous and PTH level in the a.m. and also the albumin. We will add Epogen and also Zemplar during dialysis. We will follow with you. Thank you for allowing me to participate in our patient's care. Horacio Graham MD
[2016-09-01] MEDS: Aritificial Tears (15ml) OU SCH ×4 (10:55→22:08)
[2016-09-01] MEDS: NIFEdipine 30 mg ER Tab PO SCH (10:56)
[2016-09-01] MEDS: Vitamins A & D Oint UD Foilpak TOP SCH ×2 (10:56→17:56)
[2016-09-01] MEDS: Mag&Al/Simet/Diphen/Lido 237 ML KIT PO SCH ×4 (10:56→22:08)
[2016-09-01 15:40] LABS: BILIRUBIN,TOTAL 0.6 mg/dL (0.2-1.3)
[2016-09-01 15:41] LABS: ALB/GLOB RATIO 0.9 (1.0-2.1); CALCIUM 7.5 mg/dl (8.6-10.4); TOTAL PROTEIN 5.5 g/dL (6.3-8.3)
[2016-09-01 15:43] LABS: POTASSIUM 6.2 mmol/L (3.6-5.2)
[2016-09-01 16:56] LABS: HEMATOCRIT 29.9 % (34.0-47.0); MEAN CELL VOLUME 102.9 fL (81.0-99.0); MEAN CORPUSCULAR HEMOGLOBIN 32.8 pg (27.0-31.0); MEAN CORPUSCULAR HGB CONC 31.8 g/dL (33.0-37.0); MEAN PLATELET VOLUME 9.1 fL (7.2-11.7); RED CELL DISTRIBUTION WIDTH 18.8 % (11.5-14.5); WHITE BLOOD COUNT 15.2 K/uL (4.8-10.8)
[2016-09-01 17:05] LABS: POTASSIUM 4.8 mmol/L (3.6-5.2)
[2016-09-01 17:08] LABS: BILIRUBIN,TOTAL 0.5 mg/dL (0.2-1.3); CALCIUM 7.6 mg/dl (8.6-10.4); TOTAL PROTEIN 5.2 g/dL (6.3-8.3)
--- NOTE | 2016-09-01 17:32 | CP.PCM.PN ---
Subjective - Date & Time of Evaluation Date of Evaluation: 09/01/16 Time of Evaluation: 10:40 - Subjective Subjective: clinically same Objective - Vital Signs/Intake and Output Vital Signs (last 24 hours): Temp Pulse Resp BP Pulse Ox 98.2 F 97 H 20 121/56 L 95 09/01/16 15:50 09/01/16 15:50 09/01/16 15:50 09/01/16 15:50 09/01/16 15:50 Intake and Output: 09/01/16 09/01/16 06:59 18:59 Intake Total 220 Balance 220 - Medications Medications: Current Medications Acetaminophen (Tylenol 325mg Tab) 650 mg PO Q6 PRN PRN Reason: Fever >100.4 F Artificial Tears (Artificial Tears) 0 ml OU QID [facility] Last Admin: 09/01/16 13:37 Dose: 1 drop Epoetin Herve (Procrit) 10,000 unit SC TTS [facility] Last Admin: 08/30/16 10:31 Dose: 10,000 unit Megestrol Acetate (Megace) 40 mg PO DAILY [facility] Last Admin: 09/01/16 10:56 Dose: 40 mg Methotrexate (Methotrexate) 2.5 mg PO QWK [facility] Last Admin: 08/27/16 09:25 Dose: 2.5 mg Prednisone (Prednisone Tab) 20 mg PO DAILY [facility] Last Admin: 09/01/16 10:56 Dose: 20 mg Saliva Substitute (First Magic Mouthwash) 5 ml PO QID [facility] Last Admin: 09/01/16 13:37 Dose: 5 ml Valacyclovir HCl (Valtrex) 500 mg PO DAILY [facility] Last Admin: 09/01/16 10:56 Dose: 500 mg Vancomycin HCl (Vancocin (Oral Or Rectal Use)) 250 mg PO Q6H [facility] Last Admin: 09/01/16 16:16 Dose: 250 mg Vitamin A (Vitamin A & D Oint Ud Foilpak) 1 ea TOP BID [facility] Last Admin: 09/01/16 10:56 Dose: 1 ea - Labs Labs: 09/01/16 16:46 09/01/16 16:46 PT 10.3 SECONDS (9.7-12.2) 08/26/16 06:35 INR 0.9 08/26/16 06:35 APTT 20 SECONDS (21-34) L D 08/26/16 06:35 - Constitutional Appears: Well - Head Exam Head Exam: ATRAUMATIC, NORMAL INSPECTION, NORMOCEPHALIC - Eye Exam Eye Exam: EOMI, Normal appearance, PERRL Pupil Exam: NORMAL ACCOMODATION, PERRL - ENT Exam ENT Exam: Mucous Membranes Moist, Normal Exam - Neck Exam Neck Exam: Full ROM, Normal Inspection. absent: Lymphadenopathy - Respiratory Exam Respiratory Exam: Decreased Breath Sounds - Cardiovascular Exam Cardiovascular Exam: REGULAR RHYTHM, +S1, +S2 - GI/Abdominal Exam GI & Abdominal Exam: Soft, Diminished Bowel Sounds - Rectal Exam Rectal Exam: Deferred Assessment and Plan (1) Cardiac dysrhythmia Status: Acute (2) ESRD (end stage renal disease) on dialysis Status: Acute (3) Pulmonary edema Status: Acute (4) MARCO (acute kidney injury) Status: Acute (5) Acute respiratory failure requiring reintubation Status: Acute (6) Arthritis Status: Acute (7) CHF (congestive heart failure) Status: Acute (8) Dehydration Status: Acute (9) Dehydration Status: Acute (10) Diverticulosis Status: Acute (11) Elevated CEA Status: Acute (12) Hypertension Status: Acute (13) Inguinal lymphadenopathy Status: Acute (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 - Assessment and Plan (Free Text) Plan: No acute event overnight discussed with family Continue methotrexate Nifedipine Valtrex Continue as advised Prednisone Vancomycin Tylenol if fever [facility] Physical therapy Labs next a.m.
--- NOTE | 2016-09-01 19:44 | CP.PCM.PN ---
Subjective - Date & Time of Evaluation Date of Evaluation: 09/01/16 Time of Evaluation: 19:43 - Subjective Subjective: pt seen and examined, follow up consult is dictated #[id number] Objective - Vital Signs/Intake and Output Vital Signs (last 24 hours): Temp Pulse Resp BP Pulse Ox 98.2 F 87 20 136/69 95 09/01/16 15:50 09/01/16 19:00 09/01/16 15:50 09/01/16 19:00 09/01/16 15:50 Intake and Output: 09/01/16 09/02/16 18:59 06:59 Intake Total 340 Balance 340 - Medications Medications: Current Medications Acetaminophen (Tylenol 325mg Tab) 650 mg PO Q6 PRN PRN Reason: Fever >100.4 F Artificial Tears (Artificial Tears) 0 ml OU QID [facility] Last Admin: 09/01/16 17:54 Dose: 2 drop Epoetin Herve (Procrit) 10,000 unit SC TTS [facility] Last Admin: 08/30/16 10:31 Dose: 10,000 unit Megestrol Acetate (Megace) 40 mg PO DAILY [facility] Last Admin: 09/01/16 10:56 Dose: 40 mg Methotrexate (Methotrexate) 2.5 mg PO QWK [facility] Last Admin: 08/27/16 09:25 Dose: 2.5 mg Prednisone (Prednisone Tab) 10 mg PO DAILY [facility] Saliva Substitute (First Magic Mouthwash) 5 ml PO QID [facility] Last Admin: 09/01/16 17:56 Dose: 5 ml Valacyclovir HCl (Valtrex) 500 mg PO DAILY [facility] Last Admin: 09/01/16 10:56 Dose: 500 mg Vancomycin HCl (Vancocin (Oral Or Rectal Use)) 250 mg PO Q6H [facility] Last Admin: 09/01/16 16:16 Dose: 250 mg Vitamin A (Vitamin A & D Oint Ud Foilpak) 1 ea TOP BID [facility] Last Admin: 09/01/16 17:56 Dose: 1 ea - Labs Labs: 09/01/16 16:46 09/01/16 16:46 PT 10.3 SECONDS (9.7-12.2) 08/26/16 06:35 INR 0.9 08/26/16 06:35 APTT 20 SECONDS (21-34) L D 08/26/16 06:35
[2016-09-02] MEDS: Vancomycin 125 MG/5 ML SOLN (ORAL/RECTAL) PO SCH ×5 (04:13→21:50)
--- NOTE | 2016-09-02 09:31 | CON ---
FOLLOWUP RENAL CONSULTATION: LOCATION: The patient is located in room 557, bed A. REQUESTED BY: Dr. Kavon Ureña. REASON FOR FOLLOWUP: Renal failure and continuation of hemodialysis. SUBJECTIVE: Mrs. Denise Garcia is an 80 years old elderly female with history of longstanding hypertension, rheumatoid arthritis, was admitted with initially thrombocytopenia and increase BUN and creatinine. Subsequently, the patient was found to have positive schistocytes and identified as a TTP, status post FFP and plasmapheresis about a month ago and subsequently, the patient was discharged to the [facility], from there the patient was sent back to long-term for leakage of LifeVest. The patient was also found to have again of worsening platelets and altered mental status and confusion and restless and again positive for schistocytes, diagnosed as TTP and started on plasmapheresis in ICU in the last week. The patient is feeling better, not any acute distress, denies any pain, denies any shortness of breath, appetite improving, not at distress. PHYSICAL EXAMINATION: VITAL SIGNS: As well as blood pressure 140/62, pulse 83, respirations 20, temperature 98.2, saturation 95%. Height 5 feet 2 inches and weight 143 pounds. GENERAL: Mrs. Denise Garcia is an 80 years old elderly female, moderately built, moderately nourished, and not in acute distress. HEENT: Pupils normal, reactive to light and accommodation. Conjunctivae pink. Sclerae anicteric. Tongue is moist. Trachea is midline. LUNGS: Symmetry on both sides. Bilateral breath sounds present. No crackles. CARDIOVASCULAR SYSTEM: [place] of the fifth intercostal space, midclavicular line. S1 and S2 audible. No murmur or gallop. ABDOMEN: Normal in appearance, soft, tympanic. No guarding. No rigidity. No hepatosplenomegaly. CENTRAL NERVOUS SYSTEM: The patient is alert, awake, oriented x2. Sensory and motor system is grossly within normal limits. EXTREMITIES: No cyanosis. No clubbing. No edema. CURRENT MEDICATIONS: Include as follows; Artificial tears and Megace 40 mg p.o. daily, methotrexate 2.5 mg p.o. every weekly, prednisone 10 mg p.o. daily, Procrit 10,000 units three times a week, Tylenol and valacyclovir 500 mg daily, vancomycin 250 mg p.o. every 6 hours, vitamin A and D ointment topical b.i.d. LABORATORY DATA: Include as follows, as of 09/01/2016, WBC 15.2, hemoglobin 9.2, hematocrit is 23.9, platelets 178, sodium 131, potassium 4.8, chloride 90, CO2 30, BUN 47, creatinine 5.6, glucose 198, calcium 7.6, total bilirubin 0.5, AST 62, ALT 65, alkaline phosphate 121, total protein 5.2, albumin is 2.7. ASSESSMENT: In summary, Mrs. Denise Garcia is an 80 years old elderly female with history of hypertension, rheumatoid arthritis, thrombotic thrombocytopenic purpura, status post Clostridium difficile colitis, renal failure on hemodialysis. 1. Renal failure most likely acute on chronic kidney disease, cannot rule out end-stage renal disease, secondary to thrombotic thrombocytopenic purpura, cannot rule out thrombotic microangiopathy versus acute tubular necrosis. For hemodialysis in a.m. 2. Hypertension, blood pressure is stable, continue on current medication of Procardia. 3. Thrombotic thrombocytopenic purpura, platelets are stable. Continue prednisone on tapering dose. 4. Cardiomyopathy. The case was discussed with Dr. Lazaro Montanez. Thank you for allowing me to participate in your patient's care. Horacio Graham MD [email or web address]
[2016-09-02] MEDS: Aritificial Tears (15ml) OU SCH ×4 (10:30→21:50)
[2016-09-02] MEDS: Vitamins A & D Oint UD Foilpak TOP SCH ×2 (10:30→17:47)
[2016-09-02] MEDS: Mag&Al/Simet/Diphen/Lido 237 ML KIT PO SCH ×4 (10:30→21:51)
[2016-09-02] MEDS ORDERED: EPOETIN ALFA 10,000 UNIT/ML ML IV SCH (12:30)
--- NOTE | 2016-09-02 12:31 | CP.PCM.PN ---
Subjective - Date & Time of Evaluation Date of Evaluation: 09/02/16 Time of Evaluation: 12:30 - Subjective Subjective: pt seen and examine dduring hd,uf goal is 1.8 lit follow up consult is dictated #[id number] Objective - Vital Signs/Intake and Output Vital Signs (last 24 hours): Temp Pulse Resp BP Pulse Ox 97.7 F 102 H 20 132/79 97 09/02/16 10:10 09/02/16 10:10 09/02/16 10:10 09/02/16 11:40 09/02/16 10:10 - Medications Medications: Current Medications Acetaminophen (Tylenol 325mg Tab) 650 mg PO Q6 PRN PRN Reason: Fever >100.4 F Artificial Tears (Artificial Tears) 0 ml OU QID [facility] Last Admin: 09/01/16 22:08 Dose: 2 drop Epoetin Herve (Procrit) 10,000 unit IV TTS [facility] Megestrol Acetate (Megace) 40 mg PO DAILY [facility] Last Admin: 09/01/16 10:56 Dose: 40 mg Methotrexate (Methotrexate) 2.5 mg PO QWK [facility] Last Admin: 08/27/16 09:25 Dose: 2.5 mg Prednisone (Prednisone Tab) 10 mg PO DAILY [facility] Saliva Substitute (First Magic Mouthwash) 5 ml PO QID [facility] Last Admin: 09/01/16 22:08 Dose: 5 ml Valacyclovir HCl (Valtrex) 500 mg PO DAILY [facility] Last Admin: 09/01/16 10:56 Dose: 500 mg Vancomycin HCl (Vancocin (Oral Or Rectal Use)) 250 mg PO Q6H [facility] Last Admin: 09/02/16 04:13 Dose: 250 mg Vitamin A (Vitamin A & D Oint Ud Foilpak) 1 ea TOP BID [facility] Last Admin: 09/01/16 17:56 Dose: 1 ea - Labs Labs: 09/01/16 16:46 09/01/16 16:46 PT 10.3 SECONDS (9.7-12.2) 08/26/16 06:35 INR 0.9 08/26/16 06:35 APTT 20 SECONDS (21-34) L D 08/26/16 06:35
--- NOTE | 2016-09-02 17:19 | CP.PCM.PN ---
Subjective - Date & Time of Evaluation Date of Evaluation: 09/02/16 Time of Evaluation: 11:00 - Subjective Subjective: clinically same Objective - Vital Signs/Intake and Output Vital Signs (last 24 hours): Temp Pulse Resp BP Pulse Ox 98.0 F 98 H 18 162/79 H 96 09/02/16 15:41 09/02/16 15:41 09/02/16 15:41 09/02/16 15:41 09/02/16 15:41 Intake and Output: 09/02/16 09/02/16 06:59 18:59 Intake Total 690 Balance 690 - Medications Medications: Current Medications Acetaminophen (Tylenol 325mg Tab) 650 mg PO Q6 PRN PRN Reason: Fever >100.4 F Artificial Tears (Artificial Tears) 0 ml OU QID [facility] Last Admin: 09/02/16 14:33 Dose: 1 drop Epoetin Herve (Procrit) 10,000 unit IV TTS [facility] Last Admin: 09/02/16 13:03 Dose: 10,000 unit Megestrol Acetate (Megace) 40 mg PO DAILY [facility] Last Admin: 09/02/16 14:33 Dose: 40 mg Methotrexate (Methotrexate) 2.5 mg PO QWK [facility] Last Admin: 08/27/16 09:25 Dose: 2.5 mg Prednisone (Prednisone Tab) 10 mg PO DAILY [facility] Last Admin: 09/02/16 14:33 Dose: 10 mg Saliva Substitute (First Magic Mouthwash) 5 ml PO QID [facility] Last Admin: 09/02/16 14:33 Dose: 5 ml Valacyclovir HCl (Valtrex) 500 mg PO DAILY [facility] Last Admin: 09/02/16 14:34 Dose: 500 mg Vitamin A (Vitamin A & D Oint Ud Foilpak) 1 ea TOP BID [facility] Last Admin: 09/02/16 10:30 Dose: Not Given - Labs Labs: 09/01/16 16:46 09/01/16 16:46 PT 10.3 SECONDS (9.7-12.2) 08/26/16 06:35 INR 0.9 08/26/16 06:35 APTT 20 SECONDS (21-34) L D 08/26/16 06:35 - Constitutional Appears: Well - Head Exam Head Exam: ATRAUMATIC, NORMAL INSPECTION, NORMOCEPHALIC - Eye Exam Eye Exam: EOMI, Normal appearance, PERRL Pupil Exam: NORMAL ACCOMODATION, PERRL - ENT Exam ENT Exam: Mucous Membranes Moist, Normal Exam - Neck Exam Neck Exam: Full ROM, Normal Inspection. absent: Lymphadenopathy - Respiratory Exam Respiratory Exam: Decreased Breath Sounds - Cardiovascular Exam Cardiovascular Exam: REGULAR RHYTHM, +S1, +S2 - GI/Abdominal Exam GI & Abdominal Exam: Soft, Diminished Bowel Sounds - Rectal Exam Rectal Exam: Deferred Assessment and Plan (1) Cardiac dysrhythmia Status: Acute (2) ESRD (end stage renal disease) on dialysis Status: Acute (3) Pulmonary edema Status: Acute (4) MARCO (acute kidney injury) Status: Acute (5) Acute respiratory failure requiring reintubation Status: Acute (6) Arthritis Status: Acute (7) CHF (congestive heart failure) Status: Acute (8) Dehydration Status: Acute (9) Dehydration Status: Acute (10) Diverticulosis Status: Acute (11) Elevated CEA Status: Acute (12) Hypertension Status: Acute (13) Inguinal lymphadenopathy Status: Acute (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 - Assessment and Plan (Free Text) Plan: No new fresh complaints Family at bedside Continue methotrexate Nifedipine Valtrex Continue as advised Prednisone Vancomycin Tylenol if fever Janes Graham Physical therapy Labs next a.m.
--- NOTE | 2016-09-02 19:21 | CP.PCM.PN ---
Subjective - Date & Time of Evaluation Date of Evaluation: 09/01/16 Time of Evaluation: 19:30 - Subjective Subjective: Appears comfortable Objective - Vital Signs/Intake and Output Vital Signs (last 24 hours): Temp Pulse Resp BP Pulse Ox 98.0 F 98 H 18 162/79 H 96 09/02/16 15:41 09/02/16 15:41 09/02/16 15:41 09/02/16 15:41 09/02/16 15:41 Intake and Output: 09/02/16 09/03/16 18:59 06:59 Intake Total 690 Balance 690 - Medications Medications: Current Medications Acetaminophen (Tylenol 325mg Tab) 650 mg PO Q6 PRN PRN Reason: Fever >100.4 F Artificial Tears (Artificial Tears) 0 ml OU QID [facility] Last Admin: 09/02/16 17:43 Dose: 2 drop Epoetin Herve (Procrit) 10,000 unit IV TTS [facility] Last Admin: 09/02/16 13:03 Dose: 10,000 unit Megestrol Acetate (Megace) 40 mg PO DAILY [facility] Last Admin: 09/02/16 14:33 Dose: 40 mg Methotrexate (Methotrexate) 2.5 mg PO QWK [facility] Last Admin: 08/27/16 09:25 Dose: 2.5 mg Prednisone (Prednisone Tab) 10 mg PO DAILY [facility] Last Admin: 09/02/16 14:33 Dose: 10 mg Saliva Substitute (First Magic Mouthwash) 5 ml PO QID [facility] Last Admin: 09/02/16 17:44 Dose: 5 ml Valacyclovir HCl (Valtrex) 500 mg PO DAILY [facility] Last Admin: 09/02/16 14:34 Dose: 500 mg Vancomycin HCl (Vancocin (Oral Or Rectal Use)) 125 mg PO QID [facility] Last Admin: 09/02/16 17:48 Dose: 125 mg Vitamin A (Vitamin A & D Oint Ud Foilpak) 1 ea TOP BID [facility] Last Admin: 09/02/16 17:47 Dose: 1 ea - Labs Labs: 09/01/16 16:46 09/01/16 16:46 PT 10.3 SECONDS (9.7-12.2) 08/26/16 06:35 INR 0.9 08/26/16 06:35 APTT 20 SECONDS (21-34) L D 08/26/16 06:35 - Head Exam Head Exam: ATRAUMATIC - Eye Exam Eye Exam: Normal appearance - ENT Exam ENT Exam: Mucous Membranes Dry - Respiratory Exam Respiratory Exam: NORMAL BREATHING PATTERN - Cardiovascular Exam Cardiovascular Exam: +S1, +S2 - GI/Abdominal Exam GI & Abdominal Exam: Normal Bowel Sounds - Extremities Exam Extremities Exam: Normal Inspection Assessment and Plan (1) TTP (thrombotic thrombocytopenic purpura) Assessment & Plan: s/p plasma exchange plt count normal taper steroids Status: Acute
--- NOTE | 2016-09-02 19:24 | CP.PCM.PN ---
Subjective - Date & Time of Evaluation Date of Evaluation: 09/02/16 Time of Evaluation: 17:00 - Subjective Subjective: Appears comfortable Objective - Vital Signs/Intake and Output Vital Signs (last 24 hours): Temp Pulse Resp BP Pulse Ox 98.0 F 98 H 18 164/76 H 96 09/02/16 15:41 09/02/16 19:00 09/02/16 15:41 09/02/16 19:00 09/02/16 15:41 Intake and Output: 09/02/16 09/03/16 18:59 06:59 Intake Total 690 100 Balance 690 100 - Medications Medications: Current Medications Acetaminophen (Tylenol 325mg Tab) 650 mg PO Q6 PRN PRN Reason: Fever >100.4 F Artificial Tears (Artificial Tears) 0 ml OU QID [facility] Last Admin: 09/02/16 17:43 Dose: 2 drop Epoetin Herve (Procrit) 10,000 unit IV TTS [facility] Last Admin: 09/02/16 13:03 Dose: 10,000 unit Megestrol Acetate (Megace) 40 mg PO DAILY [facility] Last Admin: 09/02/16 14:33 Dose: 40 mg Methotrexate (Methotrexate) 2.5 mg PO QWK [facility] Last Admin: 08/27/16 09:25 Dose: 2.5 mg Prednisone (Prednisone Tab) 10 mg PO DAILY [facility] Last Admin: 09/02/16 14:33 Dose: 10 mg Saliva Substitute (First Magic Mouthwash) 5 ml PO QID [facility] Last Admin: 09/02/16 17:44 Dose: 5 ml Valacyclovir HCl (Valtrex) 500 mg PO DAILY [facility] Last Admin: 09/02/16 14:34 Dose: 500 mg Vancomycin HCl (Vancocin (Oral Or Rectal Use)) 125 mg PO QID [facility] Last Admin: 09/02/16 17:48 Dose: 125 mg Vitamin A (Vitamin A & D Oint Ud Foilpak) 1 ea TOP BID [facility] Last Admin: 09/02/16 17:47 Dose: 1 ea - Labs Labs: 09/01/16 16:46 09/01/16 16:46 PT 10.3 SECONDS (9.7-12.2) 08/26/16 06:35 INR 0.9 08/26/16 06:35 APTT 20 SECONDS (21-34) L D 07/18/17 06:35 - Head Exam Head Exam: ATRAUMATIC - Eye Exam Eye Exam: Normal appearance - ENT Exam ENT Exam: Mucous Membranes Dry - Respiratory Exam Respiratory Exam: NORMAL BREATHING PATTERN - Cardiovascular Exam Cardiovascular Exam: +S1, +S2 - GI/Abdominal Exam GI & Abdominal Exam: Normal Bowel Sounds - Extremities Exam Extremities Exam: Normal Inspection Assessment and Plan (1) TTP (thrombotic thrombocytopenic purpura) Assessment & Plan: s/p plasma exchange plt normal taper steroids repeat CBC at ID Status: Acute
--- NOTE | 2016-09-03 05:24 | CON ---
DATE: LOCATION: The patient is located room 557, bed A. REQUESTED BY: Dr. Kavon Ureña. REASON FOR RENAL FOLLOWUP: Renal failure, TTP and continuation of the hemodialysis. HISTORY OF PRESENT ILLNESS: Mrs. Denise Garcia is 80 years old elderly female with history of hypertension, rheumatoid arthritis who was admitted with thrombocytopenia, altered mental status and found to have a low platelets, increase BUN, creatinine and also found to have schistocytes and consistent of the TTP. Started on FFP with no improvement and started on plasmapheresis during her previous admission and subsequently her mental status improved and platelets improved and later on the patient is on tapering dose of steroids and subsequently the patient was admitted to [facility] rehab, from there the patient was sent back to the [facility] with leaking of materials from the [employer]. The patient was found again with worsening platelets and altered mental status and confusion and restlessness. The patient was seen by court operations clerk and started on plasmapheresis for TTP. The patient is not in acute distress. The patient was seen and examined during the dialysis this morning in rounds. UF goal is about 1.7 to 1.8 L, not in distress. PHYSICAL EXAMINATION GENERAL: Mrs. Denise Garcia is 80 years old elderly female, moderately built, moderately nourished, and not in acute distress. VITAL SIGNS: Her vitals signs this morning as follows; blood pressure 155/95, pulse 92, respirations 18, temperature 98.8, saturation is 98%. Height 5 feet, 2 inches and weight is 143 pounds. HEENT: Pupils normal, reactive to light and accommodation. Conjunctivae pink. Sclerae anicteric. Tongue is moist. Trachea is midline. LUNGS: Symmetric on both sides. Bilateral breath sounds present. Clear to auscultation. CARDIOVASCULAR: [place] of the fifth intercostal space, midclavicular line. S1 and S2 audible. No murmur or gallop. ABDOMEN: Normal in appearance, soft, and tympanic. No guarding. No rigidity. No hepatosplenomegaly. CENTRAL NERVOUS SYSTEM: The patient is arousable, following commands. Sensory and motor examination also within normal limits. EXTREMITIES: No cyanosis. No clubbing. No edema. CURRENT MEDICATIONS: Include as follows; Artificial tears and saliva substitutes, Megace 40 mg p.o. daily, methotrexate 2.5 mg p.o. every weekly, prednisone 10 mg p.o. daily, Epogen 60541 units three times a week, Thursday, and Thursday, Tylenol 650 mg p.o. q.6 hours p.r.n., valacyclovir 500 mg p.o. daily, vancomycin 125 mg p.o. q.i.d, vitamin A and D ointment topical b.i.d. LABORATORY DATA: No new labs are available. As of 09/01/2016; BUN and creatinine 47/5.6 and potassium 4.8, H and H 9.5/29.9 and Accu-Cheks this morning 124 and 124. As of 09/01/2016, Accu-Cheks 178 and 271. ASSESSMENT: In summary, Denise Atwood is 80 years old elderly female with history of hypertension, rheumatoid arthritis, cardiomyopathy, renal failure and thrombocytopenia with positive schistocytes and thrombotic thrombocytopenic purpura, status post plasmapheresis x2 during last admission and this admission last week. 1. Renal failure, most likely end-stage renal disease, cannot rule out thrombotic microangiopathy secondary to thrombotic thrombocytopenic purpura. 2. Hypertension, blood pressure stable, continue current medications. 3. Anemia secondary to renal failure and thrombotic thrombocytopenic purpura. 4. Cardiomyopathy. PLAN: Continue hemodialysis 3 times a week Thursday, , Thursday. Continue tapering dose of steroids as per hematology. Continue Zemplar and Procrit during dialysis. Thank you for allowing me to participate in your patient's care. Horacio Graham MD [email or web address]
[2016-09-03] MEDS: Vancomycin 125 MG/5 ML SOLN (ORAL/RECTAL) PO SCH ×4 (09:14→21:46)
[2016-09-03] MEDS: Aritificial Tears (15ml) OU SCH ×4 (09:28→21:46)
[2016-09-03] MEDS: Vitamins A & D Oint UD Foilpak TOP SCH ×2 (09:28→18:53)
[2016-09-03] MEDS: Mag&Al/Simet/Diphen/Lido 237 ML KIT PO SCH ×4 (09:33→21:46)
--- NOTE | 2016-09-03 10:43 | CP.PCM.PN ---
Subjective - Date & Time of Evaluation Date of Evaluation: 09/03/16 Time of Evaluation: 10:20 - Subjective Subjective: clinically same Objective - Vital Signs/Intake and Output Vital Signs (last 24 hours): Temp Pulse Resp BP Pulse Ox 97.7 F 69 18 137/67 98 09/03/16 07:30 09/03/16 07:30 09/03/16 07:30 09/03/16 07:30 09/03/16 07:30 Intake and Output: 09/03/16 09/03/16 06:59 18:59 Intake Total 100 Balance 100 - Medications Medications: Current Medications Acetaminophen (Tylenol 325mg Tab) 650 mg PO Q6 PRN PRN Reason: Fever >100.4 F Artificial Tears (Artificial Tears) 0 ml OU QID [facility] Last Admin: 09/03/16 09:28 Dose: 1 drop Epoetin Herve (Procrit) 10,000 unit IV TTS [facility] Last Admin: 09/02/16 13:03 Dose: 10,000 unit Megestrol Acetate (Megace) 40 mg PO DAILY [facility] Last Admin: 09/03/16 09:28 Dose: 40 mg Methotrexate (Methotrexate) 2.5 mg PO QWK [facility] Last Admin: 09/03/16 09:33 Dose: 2.5 mg Prednisone (Prednisone Tab) 10 mg PO DAILY [facility] Last Admin: 09/03/16 09:28 Dose: 10 mg Saliva Substitute (First Magic Mouthwash) 5 ml PO QID [facility] Last Admin: 09/02/16 21:51 Dose: 5 ml Valacyclovir HCl (Valtrex) 500 mg PO DAILY [facility] Last Admin: 09/03/16 09:28 Dose: 500 mg Vancomycin HCl (Vancocin (Oral Or Rectal Use)) 125 mg PO QID [facility] Last Admin: 09/03/16 09:14 Dose: 125 mg Vitamin A (Vitamin A & D Oint Ud Foilpak) 1 ea TOP BID [facility] Last Admin: 09/03/16 09:28 Dose: 1 ea - Labs Labs: 09/01/16 16:46 09/01/16 16:46 PT 10.3 SECONDS (9.7-12.2) 08/26/16 06:35 INR 0.9 08/26/16 06:35 APTT 20 SECONDS (21-34) L D 08/26/16 06:35 - Constitutional Appears: Well - Head Exam Head Exam: ATRAUMATIC, NORMAL INSPECTION, NORMOCEPHALIC - Eye Exam Eye Exam: EOMI, Normal appearance, PERRL Pupil Exam: NORMAL ACCOMODATION, PERRL - ENT Exam ENT Exam: Mucous Membranes Moist, Normal Exam - Neck Exam Neck Exam: Full ROM, Normal Inspection. absent: Lymphadenopathy - Respiratory Exam Respiratory Exam: Decreased Breath Sounds - Cardiovascular Exam Cardiovascular Exam: REGULAR RHYTHM, +S1, +S2 - GI/Abdominal Exam GI & Abdominal Exam: Soft, Diminished Bowel Sounds - Rectal Exam Rectal Exam: Deferred Assessment and Plan (1) Cardiac dysrhythmia Status: Acute (2) ESRD (end stage renal disease) on dialysis Status: Acute (3) Pulmonary edema Status: Acute (4) MARCO (acute kidney injury) Status: Acute (5) Acute respiratory failure requiring reintubation Status: Acute (6) Arthritis Status: Acute (7) CHF (congestive heart failure) Status: Acute (8) Dehydration Status: Acute (9) Dehydration Status: Acute (10) Diverticulosis Status: Acute (11) Elevated CEA Status: Acute (12) Hypertension Status: Acute (13) Inguinal lymphadenopathy Status: Acute (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 - Assessment and Plan (Free Text) Plan: Hb tomorrow Continue same discussed with family Janes Graham Continue methotrexate Nifedipine Valtrex Continue as advised Prednisone Vancomycin Tylenol if fever Physical therapy Labs next a.m.
--- NOTE | 2016-09-03 20:32 | CP.PCM.PN ---
Subjective - Date & Time of Evaluation Date of Evaluation: 09/03/16 Time of Evaluation: 20:32 - Subjective Subjective: pt seen and examined, follow up consult is dictated #[id number] hd in am, check labs in am Objective - Vital Signs/Intake and Output Vital Signs (last 24 hours): Temp Pulse Resp BP Pulse Ox 98 F 80 20 145/70 95 09/03/16 15:54 09/03/16 15:54 09/03/16 15:54 09/03/16 15:54 09/03/16 15:54 Intake and Output: 09/03/16 09/04/16 18:59 06:59 Intake Total 260 Balance 260 - Medications Medications: Current Medications Acetaminophen (Tylenol 325mg Tab) 650 mg PO Q6 PRN PRN Reason: Fever >100.4 F Artificial Tears (Artificial Tears) 0 ml OU QID [facility] Last Admin: 09/03/16 18:53 Dose: 1 drop Epoetin Herve (Procrit) 10,000 unit IV TTS [facility] Last Admin: 09/02/16 13:03 Dose: 10,000 unit Megestrol Acetate (Megace) 40 mg PO DAILY [facility] Last Admin: 09/03/16 09:28 Dose: 40 mg Methotrexate (Methotrexate) 2.5 mg PO QWK [facility] Last Admin: 09/03/16 09:33 Dose: 2.5 mg Prednisone (Prednisone Tab) 10 mg PO DAILY [facility] Last Admin: 09/03/16 09:28 Dose: 10 mg Saliva Substitute (First Magic Mouthwash) 5 ml PO QID [facility] Last Admin: 09/03/16 18:53 Dose: 5 ml Valacyclovir HCl (Valtrex) 500 mg PO DAILY [facility] Last Admin: 09/03/16 09:28 Dose: 500 mg Vancomycin HCl (Vancocin (Oral Or Rectal Use)) 125 mg PO QID [facility] Last Admin: 09/03/16 19:36 Dose: 125 mg Vitamin A (Vitamin A & D Oint Ud Foilpak) 1 ea TOP BID [facility] Last Admin: 09/03/16 18:53 Dose: 1 ea - Labs Labs: 09/01/16 16:46 09/01/16 16:46 PT 10.3 SECONDS (9.7-12.2) 08/26/16 06:35 INR 0.9 08/26/16 06:35 APTT 20 SECONDS (21-34) L D 08/26/16 06:35
[2016-09-04 10:06] LABS: HEMATOCRIT 27.5 % (34.0-47.0); MEAN CELL VOLUME 104.3 fL (81.0-99.0); MEAN CORPUSCULAR HGB CONC 31.6 g/dL (33.0-37.0); RED CELL DISTRIBUTION WIDTH 19.8 % (11.5-14.5); WHITE BLOOD COUNT 13.5 K/uL (4.8-10.8)
[2016-09-04 10:12] LABS: POTASSIUM 4.1 mmol/L (3.6-5.2)
[2016-09-04 10:15] LABS: CALCIUM 7.4 mg/dl (8.6-10.4); PHOSPHOROUS 3.1 mg/dL (2.5-4.5)
--- NOTE | 2016-09-04 10:19 | CON ---
FOLLOWUP RENAL CONSULTATION LOCATION: The patient is in located in room 557, bed A. REQUESTING PHYSICIAN: Kavon Ureña MD REASON FOR FOLLOWUP: Renal failure and continuation of the hemodialysis. HISTORY OF PRESENT ILLNESS: Mrs. Denise Garcia is an 80 years old elderly female with the history of longstanding hypertension, arthritis rheumatoid was admitted with thrombocytopenia and increased BUN and creatinine and subsequently, the patient was found to have TTP and the patient underwent plasmapheresis during her last admission and again this admission on tapering dose of steroids. The patient is much better, not any acute distress, and denies any complaints. The patient has a good appetite now and denies any complaints at this time. PHYSICAL EXAMINATION: VITAL SIGNS: Her blood pressure is 145/70, pulse is 80, respirations about 20, temperature is 98, and saturation is 98%. Height is 5 feet 2 inches and weight is 143 pounds. GENERAL: Mrs. Denise Garcia is an 80 years old elderly female, moderately built and moderately nourished, and not in acute distress. HEENT: Pupils are normal and reactive to light and accommodation. Conjunctivae are pink. Sclerae are anicteric. Tongue is moist. Trachea is midline. LUNGS: Symmetry on both sides. Bilateral breath sounds are present and clear to auscultation. CARDIOVASCULAR SYSTEM: [place] of the fifth intercostal space, midclavicular line. S1 and S2 audible. No murmur or gallop. ABDOMEN: Normal in appearance, soft, and tympanitic. No guarding. No hepatosplenomegaly. CENTRAL NERVOUS SYSTEM: The patient is alert, awake, and oriented x2. Sensory and motor system is grossly within normal limits. EXTREMITIES: No cyanosis. No clubbing. No edema. CURRENT MEDICATIONS: Include as follows; artificial tears and saliva substitutes, and megestrol 40 mg p.o. daily, methotrexate 2.5 mg p.o. q weekly, prednisone 10 mg p.o. daily and Epogen 10,000 three times a week, and Tylenol 650 mg p.o. q. 6 hours. p.r.n., valacyclovir 500 mg p.o. daily, and vancomycin 125 mg p.o. q.i.d, and vitamin A and D ointment 1 topical b.i.d. LABORATORY DATA: No other labs are available. Accu-Cheks of 77,187, 186 and 170. IMPRESSION: In summary, Ms. Denise Garcia is an 80 years old elderly female with hypertension, rheumatoid arthritis, renal failure,thrombotic thrombocytopenic purpura status post plasmapheresis on tapering dose of steroids, renal failure on hemodialysis. 1. Renal failure, most likely secondary to acute on chronic kidney disease, cannot rule out secondary to thrombotic angiopathy secondary to thrombotic thrombocytopenic purpura. The patient family refused biopsy during last admission. 2. Hypertension. Blood pressure is stable, continue her current medications. 3. Anemia secondary to renal failure. 4. Status post thrombotic thrombocytopenic purpura. 5. Cardiomyopathy. PLAN: We will continue hemodialysis 3 times a week. Continue Procrit and continue Zemplar and follow up with hematology. Repeat CBC and BMP in the a.m. We will follow with you. Thank you for allowing me to participate in your patient's care. Horacio Graham MD
[2016-09-04] MEDS: Vitamins A & D Oint UD Foilpak TOP SCH ×2 (10:30→17:47)
[2016-09-04] MEDS: Vancomycin 125 MG/5 ML SOLN (ORAL/RECTAL) PO SCH ×4 (10:30→21:51)
[2016-09-04] MEDS: Aritificial Tears (15ml) OU SCH ×4 (10:30→21:55)
[2016-09-04] MEDS: Mag&Al/Simet/Diphen/Lido 237 ML KIT PO SCH ×4 (10:30→21:55)
[2016-09-04] MEDS: Epoetin Alfa 10,000 unit/ml Dialysis IV SCH (12:32)
--- NOTE | 2016-09-04 12:58 | CP.PCM.PN ---
Subjective - Date & Time of Evaluation Date of Evaluation: 09/04/16 Time of Evaluation: 09:00 - Subjective Subjective: clinically same Objective - Vital Signs/Intake and Output Vital Signs (last 24 hours): Temp Pulse Resp BP Pulse Ox 984 F H 84 16 146/83 100 09/04/16 09:45 09/04/16 12:40 09/04/16 12:40 09/04/16 12:40 09/04/16 12:40 Intake and Output: 09/04/16 09/04/16 06:59 18:59 Intake Total 120 Balance 120 - Medications Medications: Current Medications Acetaminophen (Tylenol 325mg Tab) 650 mg PO Q6 PRN PRN Reason: Fever >100.4 F Artificial Tears (Artificial Tears) 0 ml OU QID [facility] Last Admin: 09/04/16 10:30 Dose: Not Given Epoetin Herve (Procrit) 10,000 unit IV TTS [facility] Last Admin: 09/04/16 12:32 Dose: 10,000 unit Heparin Sodium (Porcine) (Heparin) 3,500 units IVP TTS [facility] Last Admin: 09/04/16 12:34 Dose: 3,500 units Megestrol Acetate (Megace) 40 mg PO DAILY [facility] Last Admin: 09/03/16 09:28 Dose: 40 mg Prednisone (Prednisone Tab) 10 mg PO DAILY [facility] Last Admin: 09/03/16 09:28 Dose: 10 mg Saliva Substitute (First Magic Mouthwash) 5 ml PO QID [facility] Last Admin: 09/04/16 10:30 Dose: Not Given Valacyclovir HCl (Valtrex) 500 mg PO DAILY [facility] Last Admin: 09/03/16 09:28 Dose: 500 mg Vancomycin HCl (Vancocin (Oral Or Rectal Use)) 125 mg PO QID [facility] Last Admin: 09/04/16 10:30 Dose: Not Given Vitamin A (Vitamin A & D Oint Ud Foilpak) 1 ea TOP BID [facility] Last Admin: 09/04/16 10:30 Dose: Not Given - Labs Labs: 09/04/16 10:01 09/04/16 10:01 PT 10.3 SECONDS (9.7-12.2) 08/26/16 06:35 INR 0.9 08/26/16 06:35 APTT 20 SECONDS (21-34) L D 08/26/16 06:35 - Constitutional Appears: Well - Head Exam Head Exam: ATRAUMATIC, NORMAL INSPECTION, NORMOCEPHALIC - Eye Exam Eye Exam: EOMI, Normal appearance, PERRL Pupil Exam: NORMAL ACCOMODATION, PERRL - ENT Exam ENT Exam: Mucous Membranes Moist, Normal Exam - Neck Exam Neck Exam: Full ROM, Normal Inspection. absent: Lymphadenopathy - Respiratory Exam Respiratory Exam: Decreased Breath Sounds - Cardiovascular Exam Cardiovascular Exam: REGULAR RHYTHM, +S1, +S2 - GI/Abdominal Exam GI & Abdominal Exam: Soft, Diminished Bowel Sounds - Rectal Exam Rectal Exam: Deferred Assessment and Plan (1) Cardiac dysrhythmia Status: Acute (2) ESRD (end stage renal disease) on dialysis Status: Acute (3) Pulmonary edema Status: Acute (4) MARCO (acute kidney injury) Status: Acute (5) Acute respiratory failure requiring reintubation Status: Acute (6) Arthritis Status: Acute (7) CHF (congestive heart failure) Status: Acute (8) Dehydration Status: Acute (9) Dehydration Status: Acute (10) Diverticulosis Status: Acute (11) Elevated CEA Status: Acute (12) Hypertension Status: Acute (13) Inguinal lymphadenopathy Status: Acute (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 - Assessment and Plan (Free Text) Plan: Labs noted Hemodialysis today [facility] Continue as advised Prednisone Vancomycin Tylenol if fever Physical therapy Labs next a.m.
--- NOTE | 2016-09-04 17:49 | CP.PCM.PN ---
Subjective - Date & Time of Evaluation Date of Evaluation: 09/04/16 Time of Evaluation: 17:49 - Subjective Subjective: pt seen and examined, follow up consult is dictated #[id number] s/p hd today Objective - Vital Signs/Intake and Output Vital Signs (last 24 hours): Temp Pulse Resp BP Pulse Ox 984 F H 84 16 146/83 100 09/04/16 09:45 09/04/16 12:40 09/04/16 12:40 09/04/16 12:40 09/04/16 12:40 Intake and Output: 09/04/16 09/04/16 06:59 18:59 Intake Total 120 540 Balance 120 540 - Medications Medications: Current Medications Acetaminophen (Tylenol 325mg Tab) 650 mg PO Q6 PRN PRN Reason: Fever >100.4 F Artificial Tears (Artificial Tears) 0 ml OU QID [facility] Last Admin: 09/04/16 17:48 Dose: 1 drop Epoetin Herve (Procrit) 10,000 unit IV TTS [facility] Last Admin: 09/04/16 12:32 Dose: 10,000 unit Heparin Sodium (Porcine) (Heparin) 3,500 units IVP TTS [facility] Last Admin: 09/04/16 12:34 Dose: 3,500 units Megestrol Acetate (Megace) 40 mg PO DAILY [facility] Last Admin: 09/04/16 14:03 Dose: 40 mg Prednisone (Prednisone Tab) 10 mg PO DAILY [facility] Last Admin: 09/04/16 14:03 Dose: 10 mg Saliva Substitute (First Magic Mouthwash) 5 ml PO QID [facility] Last Admin: 09/04/16 17:48 Dose: 5 ml Valacyclovir HCl (Valtrex) 500 mg PO DAILY [facility] Last Admin: 09/04/16 14:04 Dose: 500 mg Vancomycin HCl (Vancocin (Oral Or Rectal Use)) 125 mg PO QID [facility] Last Admin: 09/04/16 17:47 Dose: 125 mg Vitamin A (Vitamin A & D Oint Ud Foilpak) 1 ea TOP BID [facility] Last Admin: 09/04/16 17:47 Dose: 1 ea - Labs Labs: 09/04/16 10:01 09/04/16 10:01 PT 10.3 SECONDS (9.7-12.2) 08/26/16 06:35 INR 0.9 08/26/16 06:35 APTT 20 SECONDS (21-34) L D 08/26/16 06:35
--- NOTE | 2016-09-04 23:09 | PN ---
DATE: 09/04/2016 LOCATION: The patient is located in room 557, bed A. SUBJECTIVE: The patient is an 80-year-old elderly female with a history of hypertension, rheumatoid arthritis, thrombocytopenia, TTP, status post plasmapheresis, on tapering dose of steroids and renal failure, on hemodialysis for the last 6 weeks with no improvement in the renal function. The patient is feeling better, not in acute distress. Denies any pain. Denies any nausea, vomiting, diarrhea. Denies any fever, cough. No shortness of breath. PHYSICAL EXAMINATION GENERAL: The patient is an 80-year-old female, moderately built, moderately nourished, not in acute distress. VITAL SIGNS: Blood pressure is 158/87, pulse 93, respirations 18, temperature 98, saturation 95%. Height 5 feet 2 inches and weight is 143 pounds. HEENT: Pupils are reactive to light and accommodation. Conjunctivae pink. Sclerae anicteric. Tongue is moist. Trachea is midline. CVS: [place] at the fifth intercostal space, midclavicular line. S1 and S2 audible. No murmur or gallop. LUNGS: Symmetrical on both sides. Bilateral breath sounds present. Clear to auscultation. ABDOMEN: Normal in appearance, soft, tympanic. No guarding, no rigidity. No hepatosplenomegaly. 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 Sensory and motor system within normal limits. EXTREMITIES: No cyanosis, no clubbing, no edema. LABORATORY DATA: Include as follows, as of 09/04/2016, WBC 13.5, hemoglobin 8.7, hematocrit is 27.5, and platelets 135. Sodium 129, potassium 4.1, chloride 90, CO2 of 29, BUN 39, creatinine 5.3, glucose 125, calcium 7.4, phosphorus 3.1. MEDICATIONS: Her current medications include as follows, Artificial drops and Saliva Substitute and subcu heparin 3500 units *------* PermCath in each port and Megace 40 mg p.o. daily, prednisone 10 mg p.o. daily and Procrit 10,000 units 3 times a week, Tylenol, valacyclovir 500 mg p.o. daily and vancomycin 125 mg p.o. q.i.d. ASSESSMENT AND PLAN: In summary, the patient is an 80-year-old elderly female, with a history of hypertension, rheumatoid arthritis, TTP, cardiomyopathy, CHF, renal failure on hemodialysis 3 times a week for the last 6 weeks, 1. 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 2. Hypertension. Blood pressure is stable. Continue her current medication. 3. TTP. Platelets are stable and slowly dropping. I will continue prednisone. Follow with offshore diver. 4. Anemia secondary to renal failure and cannot rule out slow hemolysis. Continue Procrit 3 times a week during dialysis and we will follow with you. Thank you for allowing me to participate in your the patient's care. Horacio Graham MD
--- NOTE | 2016-09-05 03:46 | CP.PCM.PN ---
Subjective - Date & Time of Evaluation Date of Evaluation: 09/04/16 Time of Evaluation: 18:40 - Subjective Subjective: Appears comfortable Objective - Vital Signs/Intake and Output Vital Signs (last 24 hours): Temp Pulse Resp BP Pulse Ox 98.4 F 88 20 150/84 95 09/04/16 23:53 09/04/16 23:53 09/04/16 23:53 09/04/16 23:53 09/04/16 23:53 Intake and Output: 09/04/16 09/05/16 18:59 06:59 Intake Total 640 Balance 640 - Medications Medications: Current Medications Acetaminophen (Tylenol 325mg Tab) 650 mg PO Q6 PRN PRN Reason: Fever >100.4 F Artificial Tears (Artificial Tears) 0 ml OU QID [facility] Last Admin: 09/04/16 21:55 Dose: 2 drop Epoetin Herve (Procrit) 10,000 unit IV TTS [facility] Last Admin: 09/04/16 12:32 Dose: 10,000 unit Heparin Sodium (Porcine) (Heparin) 3,500 units IVP TTS [facility] Last Admin: 09/04/16 12:34 Dose: 3,500 units Megestrol Acetate (Megace) 40 mg PO DAILY [facility] Last Admin: 09/04/16 14:03 Dose: 40 mg Prednisone (Prednisone Tab) 10 mg PO DAILY [facility] Last Admin: 09/04/16 14:03 Dose: 10 mg Saliva Substitute (First Magic Mouthwash) 5 ml PO QID [facility] Last Admin: 09/04/16 21:55 Dose: 5 ml Valacyclovir HCl (Valtrex) 500 mg PO DAILY [facility] Last Admin: 09/04/16 14:04 Dose: 500 mg Vancomycin HCl (Vancocin (Oral Or Rectal Use)) 125 mg PO QID [facility] Last Admin: 09/04/16 21:51 Dose: 125 mg - Labs Labs: 09/04/16 10:01 09/04/16 10:01 PT 10.3 SECONDS (9.7-12.2) 08/26/16 06:35 INR 0.9 08/26/16 06:35 APTT 20 SECONDS (21-34) L D 08/26/16 06:35 - Head Exam Head Exam: ATRAUMATIC - Eye Exam Eye Exam: Normal appearance - ENT Exam ENT Exam: Mucous Membranes Dry - Respiratory Exam Respiratory Exam: NORMAL BREATHING PATTERN - Cardiovascular Exam Cardiovascular Exam: +S1, +S2 - GI/Abdominal Exam GI & Abdominal Exam: Normal Bowel Sounds - Extremities Exam Extremities Exam: Normal Inspection Assessment and Plan (1) TTP (thrombotic thrombocytopenic purpura) Assessment & Plan: s/p plasma exchange plt normal taper steroids Status: Acute
[2016-09-05 07:53] LABS: HEMATOCRIT 26.5 % (34.0-47.0); MEAN CELL VOLUME 103.6 fL (81.0-99.0); MEAN CORPUSCULAR HEMOGLOBIN 32.6 pg (27.0-31.0); MEAN CORPUSCULAR HGB CONC 31.5 g/dL (33.0-37.0); MEAN PLATELET VOLUME 9.3 fL (7.2-11.7); WHITE BLOOD COUNT 13.9 K/uL (4.8-10.8)
--- NOTE | 2016-09-05 10:17 | CP.PCM.PN ---
Subjective - Date & Time of Evaluation Date of Evaluation: 09/05/16 Time of Evaluation: 10:17 - Subjective Subjective: pt seen and examined, follow up consult is dictated #[id number] Objective - Vital Signs/Intake and Output Vital Signs (last 24 hours): Temp Pulse Resp BP Pulse Ox 97.9 F 89 18 147/74 98 09/05/16 07:15 09/05/16 07:15 09/05/16 07:15 09/05/16 07:15 09/05/16 07:15 - Medications Medications: Current Medications Acetaminophen (Tylenol 325mg Tab) 650 mg PO Q6 PRN PRN Reason: Fever >100.4 F Artificial Tears (Artificial Tears) 0 ml OU QID [facility] Last Admin: 09/04/16 21:55 Dose: 2 drop Epoetin Herve (Procrit) 10,000 unit IV TTS [facility] Last Admin: 09/04/16 12:32 Dose: 10,000 unit Heparin Sodium (Porcine) (Heparin) 3,500 units IVP TTS [facility] Last Admin: 09/04/16 12:34 Dose: 3,500 units Megestrol Acetate (Megace) 40 mg PO DAILY [facility] Last Admin: 09/04/16 14:03 Dose: 40 mg Prednisone (Prednisone Tab) 10 mg PO DAILY [facility] Last Admin: 09/04/16 14:03 Dose: 10 mg Saliva Substitute (First Magic Mouthwash) 5 ml PO QID [facility] Last Admin: 09/04/16 21:55 Dose: 5 ml Valacyclovir HCl (Valtrex) 500 mg PO DAILY [facility] Last Admin: 09/04/16 14:04 Dose: 500 mg Vancomycin HCl (Vancocin (Oral Or Rectal Use)) 125 mg PO QID [facility] Last Admin: 09/04/16 21:51 Dose: 125 mg - Labs Labs: 09/05/16 07:30 09/04/16 10:01 PT 10.3 SECONDS (9.7-12.2) 08/26/16 06:35 INR 0.9 08/26/16 06:35 APTT 20 SECONDS (21-34) L D 08/26/16 06:35
[2016-09-05] MEDS: Mag&Al/Simet/Diphen/Lido 237 ML KIT PO SCH ×4 (10:45→22:01)
[2016-09-05] MEDS: Vancomycin 125 MG/5 ML SOLN (ORAL/RECTAL) PO SCH ×4 (10:45→21:59)
[2016-09-05] MEDS: Aritificial Tears (15ml) OU SCH ×4 (10:46→22:01)
--- NOTE | 2016-09-05 16:08 | CP.PCM.PN ---
Subjective - Date & Time of Evaluation Date of Evaluation: 09/05/16 Time of Evaluation: 10:20 - Subjective Subjective: clinically same Objective - Vital Signs/Intake and Output Vital Signs (last 24 hours): Temp Pulse Resp BP Pulse Ox 97.9 F 89 18 147/74 98 09/05/16 07:15 09/05/16 07:15 09/05/16 07:15 09/05/16 07:15 09/05/16 07:15 - Medications Medications: Current Medications Acetaminophen (Tylenol 325mg Tab) 650 mg PO Q6 PRN PRN Reason: Fever >100.4 F Artificial Tears (Artificial Tears) 0 ml OU QID [facility] Last Admin: 09/05/16 14:20 Dose: 1 drop Epoetin Herve (Procrit) 10,000 unit IV TTS [facility] Last Admin: 09/04/16 12:32 Dose: 10,000 unit Heparin Sodium (Porcine) (Heparin) 3,500 units IVP TTS [facility] Last Admin: 09/04/16 12:34 Dose: 3,500 units Megestrol Acetate (Megace) 40 mg PO DAILY [facility] Last Admin: 09/05/16 10:45 Dose: 40 mg Prednisone (Prednisone Tab) 10 mg PO DAILY [facility] Last Admin: 09/05/16 10:45 Dose: 10 mg Saliva Substitute (First Magic Mouthwash) 5 ml PO QID [facility] Last Admin: 09/05/16 14:20 Dose: 5 ml Valacyclovir HCl (Valtrex) 500 mg PO DAILY [facility] Last Admin: 09/05/16 10:45 Dose: 500 mg Vancomycin HCl (Vancocin (Oral Or Rectal Use)) 125 mg PO QID [facility] Last Admin: 09/05/16 14:20 Dose: 125 mg - Labs Labs: 09/05/16 07:30 09/04/16 10:01 PT 10.3 SECONDS (9.7-12.2) 08/26/16 06:35 INR 0.9 08/26/16 06:35 APTT 20 SECONDS (21-34) L D 08/26/16 06:35 - Constitutional Appears: Well - Head Exam Head Exam: ATRAUMATIC, NORMAL INSPECTION, NORMOCEPHALIC - Eye Exam Eye Exam: EOMI, Normal appearance, PERRL Pupil Exam: NORMAL ACCOMODATION, PERRL - ENT Exam ENT Exam: Mucous Membranes Moist, Normal Exam - Neck Exam Neck Exam: Full ROM, Normal Inspection. absent: Lymphadenopathy - Respiratory Exam Respiratory Exam: Decreased Breath Sounds - Cardiovascular Exam Cardiovascular Exam: REGULAR RHYTHM, +S1, +S2 - GI/Abdominal Exam GI & Abdominal Exam: Soft, Diminished Bowel Sounds - Rectal Exam Rectal Exam: Deferred Assessment and Plan - Assessment and Plan (Free Text) Plan: Patient comfortably No any acute event overnight S/P plasma exchange Procrit Dr Lisseth Graham Valtrex Continue as advised Prednisone Vancomycin Tylenol if fever Physical therapy Labs next a.m.
--- NOTE | 2016-09-06 04:08 | PN ---
LOCATION: The patient is located in room 557, bed A. REQUESTED BY: Dr. Kavon Ureña. REASON FOR RENAL CONSULTATION: Renal failure on hemodialysis, TTP, and hypertension. SUBJECTIVE: Mrs. Denise Garcia is an 80 years old elderly female with the past medical history significant for hypertension and rheumatoid arthritis, who was admitted about 6 weeks ago with thrombocytopenia, altered mental status and renal failure and found to have a cardiomyopathy, CHF status post intubation and status post plasmapheresis, subsequently transferred to subacute rehab. From there, the patient was readmitted to [facility] again with leakage of fluid from [facility] and also found to have worsening mental status and thrombocytopenia and diagnosis TTP recurrence and started on plasmapheresis and also steroids. The patient is not in acute distress, no chest pain, no palpitation, and less responsive today as per the patient's family, not in distress. PHYSICAL EXAMINATION: GENERAL: Mrs. Denise Garcia is an 80 years old elderly female, moderately built, moderately nourished, not in any distress. VITAL SIGNS: As follows; blood pressure 147/74, pulse 89, respirations 18, temperature 97.9, saturation 98%, height 5 feet 2 inches and weight is 143 pounds. HEENT: Pupils normal and reactive to light and accommodation. Conjunctivae pink. Sclerae anicteric. Tongue is moist. Trachea is midline. LUNGS: Symmetrical on both sides. Bilateral breath sounds present, clear on auscultation. CARDIOVASCULAR: [place] at the fifth intercostal space, midclavicular line. S1 and S2 audible. No murmur or gallop. ABDOMEN: Normal in appearance, soft, tympanic. No guarding. No rigidity. No hepatosplenomegaly. BOLT MAN: The patient is arousable, following simple commands. Sensory and motor systems within normal limits. EXTREMITIES: No cyanosis. No clubbing. No edema. CURRENT MEDICATIONS: Include as follows: Vancomycin 125 mg p.o. q.i.d.; valacyclovir 500 mg p.o. daily; Tylenol 650 mg p.o. q.6 hours p.r.n.; Epogen 10,000 units three times Thursday, , and Thursday; prednisone 10 mg daily; Megace 40 mg p.o. daily; no subcu heparin, heparin 3500 units in the PermCath only, no heparin in the dialysis; and artificial tears. LABORATORY DATA: Include as follows; as of 09/05/2016, WBC 13.9, hemoglobin 8.4, hematocrit is 26.5, MCV 103.6 and platelet count 117. Other laboratory data; Accu-Cheks 98 and 168. ASSESSMENT AND PLAN: In summary, Mrs. Denise Garcia is an 80 years old elderly female, with a history of hypertension, rheumatoid arthritis, thrombotic thrombocytopenic purpura, cardiomyopathy, renal failure on hemodialysis 3 times a week Thursday, , and Thursday. 1. 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 The patient's family refused kidney biopsy earlier. 2. Hypertension. Blood pressure is stable. 3. Anemia secondary to renal failure, cannot rule out ongoing hemolysis. 4. Thrombocytopenia, platelets are dropping again from 178 to 117 now in the last 1 week. Rule out recurrence of thrombotic thrombocytopenic purpura again. 5. Cardiomyopathy. We will schedule for hemodialysis in a.m., and no heparin during dialysis, only in the port after the dialysis to prevent clogging. Follow up with the hematology, continuing prednisone. Repeat CBC and BMP in a.m. and also differential count, LDH, and haptoglobin. Horacio Graham MD
[2016-09-06] MEDS: Aritificial Tears (15ml) OU SCH ×4 (10:00→21:40)
[2016-09-06] MEDS: Vancomycin 125 MG/5 ML SOLN (ORAL/RECTAL) PO SCH ×4 (10:00→21:40)
[2016-09-06] MEDS: Mag&Al/Simet/Diphen/Lido 237 ML KIT PO SCH ×4 (10:00→21:44)
--- NOTE | 2016-09-06 11:36 | CP.PCM.PN ---
Subjective - Date & Time of Evaluation Date of Evaluation: 09/06/16 Time of Evaluation: 09:40 - Subjective Subjective: clinically same Objective - Vital Signs/Intake and Output Vital Signs (last 24 hours): Temp Pulse Resp BP Pulse Ox 98.7 F 86 16 156/75 H 95 09/06/16 09:30 09/06/16 10:30 09/06/16 10:30 09/06/16 10:30 09/06/16 10:30 - Medications Medications: Current Medications Acetaminophen (Tylenol 325mg Tab) 650 mg PO Q6 PRN PRN Reason: Fever >100.4 F Artificial Tears (Artificial Tears) 0 ml OU QID [facility] Last Admin: 09/05/16 22:01 Dose: 2 drop Epoetin Herve (Procrit) 10,000 unit IV TTS [facility] Last Admin: 09/04/16 12:32 Dose: 10,000 unit Heparin Sodium (Porcine) (Heparin) 3,500 units IVP TTS [facility] Last Admin: 09/04/16 12:34 Dose: 3,500 units Megestrol Acetate (Megace) 40 mg PO DAILY [facility] Last Admin: 09/05/16 10:45 Dose: 40 mg Prednisone (Prednisone Tab) 10 mg PO DAILY [facility] Last Admin: 09/05/16 10:45 Dose: 10 mg Saliva Substitute (First Magic Mouthwash) 5 ml PO QID [facility] Last Admin: 09/05/16 22:01 Dose: 5 ml Valacyclovir HCl (Valtrex) 500 mg PO DAILY [facility] Last Admin: 09/05/16 10:45 Dose: 500 mg Vancomycin HCl (Vancocin (Oral Or Rectal Use)) 125 mg PO QID [facility] Last Admin: 09/05/16 21:59 Dose: 125 mg - Labs Labs: 09/05/16 07:30 09/04/16 10:01 PT 10.3 SECONDS (9.7-12.2) 08/26/16 06:35 INR 0.9 08/26/16 06:35 APTT 20 SECONDS (21-34) L D 08/26/16 06:35 - Constitutional Appears: Well - Head Exam Head Exam: ATRAUMATIC, NORMAL INSPECTION, NORMOCEPHALIC - Eye Exam Eye Exam: EOMI, Normal appearance, PERRL Pupil Exam: NORMAL ACCOMODATION, PERRL - ENT Exam ENT Exam: Mucous Membranes Moist, Normal Exam - Neck Exam Neck Exam: Full ROM, Normal Inspection. absent: Lymphadenopathy - Respiratory Exam Respiratory Exam: Decreased Breath Sounds - Cardiovascular Exam Cardiovascular Exam: REGULAR RHYTHM, +S1, +S2 - GI/Abdominal Exam GI & Abdominal Exam: Soft, Diminished Bowel Sounds - Rectal Exam Rectal Exam: Deferred Assessment and Plan (1) Cardiac dysrhythmia Status: Acute (2) ESRD (end stage renal disease) on dialysis Status: Acute (3) Pulmonary edema Status: Acute (4) MARCO (acute kidney injury) Status: Acute (5) Acute respiratory failure requiring reintubation Status: Acute (6) Arthritis Status: Acute (7) CHF (congestive heart failure) Status: Acute (8) Dehydration Status: Acute (9) Dehydration Status: Acute (10) Diverticulosis Status: Acute (11) Elevated CEA Status: Acute (12) Hypertension Status: Acute (13) Inguinal lymphadenopathy Status: Acute (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 - Assessment and Plan (Free Text) Plan: Family at bedside Patient feeling better No acute events Keya Graham Valtrex Continue as advised Prednisone Vancomycin Tylenol if fever Physical therapy Labs next a.m.
--- NOTE | 2016-09-06 12:37 | CP.PCM.PN ---
Subjective - Date & Time of Evaluation Date of Evaluation: 09/06/16 Time of Evaluation: 12:36 - Subjective Subjective: pt seen and examined, follow up consult is dictated #[id number] seenj in hd, uf 0.8 lit exit site infection, wounfd c/s, will give 1 gm vanco, genta, f/u c/s Objective - Vital Signs/Intake and Output Vital Signs (last 24 hours): Temp Pulse Resp BP Pulse Ox 98.7 F 86 16 161/75 H 93 L 09/06/16 09:30 09/06/16 11:00 09/06/16 11:00 09/06/16 11:00 09/06/16 11:00 - Medications Medications: Current Medications Acetaminophen (Tylenol 325mg Tab) 650 mg PO Q6 PRN PRN Reason: Fever >100.4 F Artificial Tears (Artificial Tears) 0 ml OU QID [facility] Last Admin: 09/05/16 22:01 Dose: 2 drop Epoetin Herve (Procrit) 10,000 unit IV TTS [facility] Last Admin: 09/04/16 12:32 Dose: 10,000 unit Heparin Sodium (Porcine) (Heparin) 3,500 units IVP TTS [facility] Last Admin: 09/04/16 12:34 Dose: 3,500 units Megestrol Acetate (Megace) 40 mg PO DAILY [facility] Last Admin: 09/05/16 10:45 Dose: 40 mg Prednisone (Prednisone Tab) 10 mg PO DAILY [facility] Last Admin: 09/05/16 10:45 Dose: 10 mg Saliva Substitute (First Magic Mouthwash) 5 ml PO QID [facility] Last Admin: 09/05/16 22:01 Dose: 5 ml Valacyclovir HCl (Valtrex) 500 mg PO DAILY [facility] Last Admin: 09/05/16 10:45 Dose: 500 mg Vancomycin HCl (Vancocin (Oral Or Rectal Use)) 125 mg PO QID [facility] Last Admin: 09/05/16 21:59 Dose: 125 mg - Labs Labs: 09/05/16 07:30 09/04/16 10:01 PT 10.3 SECONDS (9.7-12.2) 08/26/16 06:35 INR 0.9 08/26/16 06:35 APTT 20 SECONDS (21-34) L D 08/26/16 06:35
[2016-09-06] MEDS ORDERED: Gentamicin 160 MG in Sodium Chloride 0.9% 100 ML IVPB ONE (13:00)
[2016-09-06] MEDS: Epoetin Alfa 10,000 unit/ml Dialysis IV SCH (13:10)
[2016-09-06 14:26] LABS: HEMATOCRIT 26.1 % (34.0-47.0); MEAN CORPUSCULAR HEMOGLOBIN 32.5 pg (27.0-31.0); MEAN CORPUSCULAR HGB CONC 31.2 g/dL (33.0-37.0); RED CELL DISTRIBUTION WIDTH 19.4 % (11.5-14.5); WHITE BLOOD COUNT 12.5 K/uL (4.8-10.8)
--- NOTE | 2016-09-06 16:58 | CP.PCM.PN ---
Subjective - Date & Time of Evaluation Date of Evaluation: 09/06/16 Time of Evaluation: 16:25 - Subjective Subjective: Family reports eating and appears comfortable Objective - Vital Signs/Intake and Output Vital Signs (last 24 hours): Temp Pulse Resp BP Pulse Ox 97.9 F 101 H 20 173/85 H 96 09/06/16 15:10 09/06/16 15:10 09/06/16 15:10 09/06/16 15:10 09/06/16 15:10 Intake and Output: 09/06/16 09/06/16 06:59 18:59 Intake Total 450 Balance 450 - Medications Medications: Current Medications Acetaminophen (Tylenol 325mg Tab) 650 mg PO Q6 PRN PRN Reason: Fever >100.4 F Artificial Tears (Artificial Tears) 0 ml OU QID [facility] Last Admin: 09/06/16 14:22 Dose: 1 drop Epoetin Herve (Procrit) 10,000 unit IV TTS [facility] Last Admin: 09/06/16 13:10 Dose: 10,000 unit Heparin Sodium (Porcine) (Heparin) 3,500 units IVP TTS [facility] Last Admin: 09/04/16 12:34 Dose: 3,500 units Vancomycin HCl 1 gm/ Sodium (Chloride) 250 mls @ 166.7 mls/hr IVPB Q24H [facility] Last Admin: 09/06/16 16:27 Dose: 166.7 mls/hr Megestrol Acetate (Megace) 40 mg PO DAILY [facility] Last Admin: 09/06/16 10:00 Dose: Not Given Prednisone (Prednisone Tab) 10 mg PO DAILY [facility] Last Admin: 09/06/16 14:22 Dose: 10 mg Saliva Substitute (First Magic Mouthwash) 5 ml PO QID [facility] Last Admin: 09/06/16 14:22 Dose: 5 ml Valacyclovir HCl (Valtrex) 500 mg PO DAILY [facility] Last Admin: 09/06/16 10:00 Dose: Not Given Vancomycin HCl (Vancocin (Oral Or Rectal Use)) 125 mg PO QID [facility] Last Admin: 09/06/16 14:25 Dose: 125 mg - Labs Labs: 09/06/16 14:22 09/04/16 10:01 PT 10.3 SECONDS (9.7-12.2) 08/26/16 06:35 INR 0.9 08/26/16 06:35 APTT 20 SECONDS (21-34) L D 08/26/16 06:35 - Head Exam Head Exam: ATRAUMATIC - Eye Exam Eye Exam: Normal appearance - ENT Exam ENT Exam: Mucous Membranes Dry - Respiratory Exam Respiratory Exam: NORMAL BREATHING PATTERN - Cardiovascular Exam Cardiovascular Exam: +S1, +S2 - GI/Abdominal Exam GI & Abdominal Exam: Normal Bowel Sounds Assessment and Plan (1) TTP (thrombotic thrombocytopenic purpura) Assessment & Plan: plt count downtrending concern for relapsing TTP will review peripheral smear may need to restart plasma exchange Status: Acute
--- NOTE | 2016-09-06 20:04 | PN ---
RENAL CONSULTATION LOCATION: The patient is located in room 557, bed A. REQUESTED BY: Dr. Kavon Ureña. REASON FOR RENAL CONSULTATION: Renal failure, continuation of hemodialysis. SUBJECTIVE: Mrs. Denise Garcia is an 80 years old elderly female with a history of hypertension, rheumatoid arthritis, cardiomyopathy, TTP, renal failure on hemodialysis 3 times a week was seen in dialysis. The patient has been dialyzed, UF goal is about the patient as a poorly function PermCath and also found to have exit site infection. The patient is not in acute distress. Resting comfortably and no complaints. PHYSICAL EXAMINATION: GENERAL: Mrs. Denise Garcia is an 80 years old elderly female, moderately built, moderately nourished, not in any distress. VITAL SIGNS: As follows; blood pressure 158/84, pulse 108, respirations 16, temperature 98.7 and saturation 93%. HEENT: Pupils normal and reactive to light and accommodation. Conjunctivae pink. Sclerae anicteric. Tongue is moist. Trachea is midline. LUNGS: Symmetrical on both sides. Bilateral breath sounds present, clear on auscultation. CARDIOVASCULAR: [place] at the fifth intercostal space, midclavicular line. S1 and S2 audible. No murmur or gallop. ABDOMEN: Normal in appearance, soft, tympanic. No guarding. No rigidity. No hepatosplenomegaly. CASH APPLICATIONS MANAGER: The patient is awake, following commands appropriately. EXTREMITIES: No cyanosis. No clubbing. No edema. CURRENT MEDICATIONS: Include as follows: Artificial tears and megestrol 40 mg p.o. daily and prednisone 10 mg daily, Procrit 10,000 3 times a week, Tylenol 650 mg p.o. q.6 hours, valacyclovir 500 mg p.o. daily, vancomycin 125 mg p.o. q.i.d., vancomycin 1 g and gentamicin 120 mg IV piggyback x1 dose. LABORATORY DATA: Include as follows; WBC 12.5, hemoglobin 8.2, hematocrit is 26.1, and platelets 99. ASSESSMENT AND PLAN: In summary, Mrs. Denise Garcia is an 80 years old elderly female, with a history of hypertension, rheumatoid arthritis, thrombotic thrombocytopenic purpura status post plasmapheresis x2 during the last admission and this admission and also on steroids with worsening platelets again seen in dialysis and also with drainage from the exit site of left PermCath. 1. 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 2. Thrombocytopenia, most likely recurrence of thrombotic thrombocytopenic purpura. Follow with rail track maintainer and continue prednisone. 3. Hypertension. Blood pressure is stable. Continue with her current medications. 4. Cardiomyopathy. 5. Anemia most likely secondary to the thrombotic thrombocytopenic purpura and end-stage renal disease, continue Procrit. We will follow with you. Thank you for allowing me to participate in your the patient's care. Overall prognosis is guarded. Seen in dialysis had UF goal about 0.8 L. Horacio Graham MD
[2016-09-07] MEDS: Vancomycin 125 MG/5 ML SOLN (ORAL/RECTAL) PO SCH ×4 (11:11→21:44)
[2016-09-07] MEDS: Aritificial Tears (15ml) OU SCH ×4 (11:11→21:44)
[2016-09-07] MEDS: Mag&Al/Simet/Diphen/Lido 237 ML KIT PO SCH ×5 (11:11→21:48)
--- NOTE | 2016-09-07 12:25 | CP.PCM.PN ---
Subjective - Date & Time of Evaluation Date of Evaluation: 09/07/16 Time of Evaluation: 10:00 - Subjective Subjective: clinically same Objective - Vital Signs/Intake and Output Vital Signs (last 24 hours): Temp Pulse Resp BP Pulse Ox 98.4 F 70 18 180/82 H 96 09/07/16 07:05 09/07/16 07:05 09/07/16 07:05 09/07/16 07:05 09/07/16 07:05 Intake and Output: 09/07/16 09/07/16 06:59 18:59 Intake Total 120 Balance 120 - Medications Medications: Current Medications Acetaminophen (Tylenol 325mg Tab) 650 mg PO Q6 PRN PRN Reason: Fever >100.4 F Artificial Tears (Artificial Tears) 0 ml OU QID [facility] Last Admin: 09/07/16 11:11 Dose: 1 drop Epoetin Herve (Procrit) 10,000 unit IV TTS [facility] Last Admin: 09/06/16 13:10 Dose: 10,000 unit Vancomycin HCl 1 gm/ Sodium (Chloride) 250 mls @ 166.7 mls/hr IVPB Q24H [facility] Last Admin: 09/06/16 16:27 Dose: 166.7 mls/hr Megestrol Acetate (Megace) 40 mg PO DAILY [facility] Last Admin: 09/07/16 11:10 Dose: 40 mg Prednisone (Prednisone Tab) 10 mg PO DAILY [facility] Last Admin: 09/07/16 11:11 Dose: 10 mg Saliva Substitute (First Magic Mouthwash) 5 ml PO QID [facility] Last Admin: 09/07/16 11:11 Dose: 5 ml Valacyclovir HCl (Valtrex) 500 mg PO DAILY [facility] Last Admin: 09/07/16 11:11 Dose: 500 mg Vancomycin HCl (Vancocin (Oral Or Rectal Use)) 125 mg PO QID [facility] Last Admin: 09/07/16 11:11 Dose: 125 mg - Labs Labs: 09/06/16 14:22 09/04/16 10:01 PT 10.3 SECONDS (9.7-12.2) 08/26/16 06:35 INR 0.9 08/26/16 06:35 APTT 20 SECONDS (21-34) L D 08/26/16 06:35 - Constitutional Appears: Well - Head Exam Head Exam: ATRAUMATIC, NORMAL INSPECTION, NORMOCEPHALIC - Eye Exam Eye Exam: EOMI, Normal appearance, PERRL Pupil Exam: NORMAL ACCOMODATION, PERRL - ENT Exam ENT Exam: Mucous Membranes Moist, Normal Exam - Neck Exam Neck Exam: Full ROM, Normal Inspection. absent: Lymphadenopathy - Respiratory Exam Respiratory Exam: Decreased Breath Sounds - Cardiovascular Exam Cardiovascular Exam: REGULAR RHYTHM, +S1, +S2 - GI/Abdominal Exam GI & Abdominal Exam: Soft, Diminished Bowel Sounds - Rectal Exam Rectal Exam: Deferred Assessment and Plan (1) Cardiac dysrhythmia Status: Acute (2) ESRD (end stage renal disease) on dialysis Status: Acute (3) Pulmonary edema Status: Acute (4) MARCO (acute kidney injury) Status: Acute (5) Acute respiratory failure requiring reintubation Status: Acute (6) Arthritis Status: Acute (7) CHF (congestive heart failure) Status: Acute (8) Dehydration Status: Acute (9) Dehydration Status: Acute (10) Diverticulosis Status: Acute (11) Elevated CEA Status: Acute (12) Hypertension Status: Acute (13) Inguinal lymphadenopathy Status: Acute (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 - Assessment and Plan (Free Text) Plan: Patient clinically improving No any fresh complaints Labs noted Procnelida Graham Valtrex Continue as advised Prednisone Vancomycin Tylenol if fever Physical therapy Labs next a.m.
[2016-09-07 14:26] LABS: BASO # 0.1 K/uL (0.0-0.2); EOS # 0.2 K/uL (0.0-0.7); EOS % 1.6 % (0.0-4.0); HEMATOCRIT 28.7 % (34.0-47.0); LYMPH # 0.8 K/uL (1.0-4.3); LYMPH % 5.6 % (20.0-40.0); MEAN CELL VOLUME 105.4 fL (81.0-99.0); MEAN CORPUSCULAR HEMOGLOBIN 32.4 pg (27.0-31.0); MEAN CORPUSCULAR HGB CONC 30.7 g/dL (33.0-37.0); MEAN PLATELET VOLUME 8.8 fL (7.2-11.7); MONO # 0.6 K/uL (0.0-0.8); MONO % 4.8 % (0.0-10.0); NRBC % 0.1 % (0.0-2.0); PLATELET COUNT 87 K/uL (130-400); RED CELL DISTRIBUTION WIDTH 19.8 % (11.5-14.5); WHITE BLOOD COUNT 13.5 K/uL (4.8-10.8)
[2016-09-07 14:49] LABS: BASOPHIL 1 % (0-2); EOSINOPHIL 1 % (0-4); NEUTROPHIL 87 % (50-75); TOTAL CELLS COUNTED 100
[2016-09-07 14:54] LABS: PLATELET CLUMPS PRESENT
--- NOTE | 2016-09-07 17:31 | CP.PCM.PN ---
Subjective - Date & Time of Evaluation Date of Evaluation: 09/05/16 Time of Evaluation: 19:00 - Subjective Subjective: Appears comfortable family at bedside Objective - Vital Signs/Intake and Output Vital Signs (last 24 hours): Temp Pulse Resp BP Pulse Ox 97.9 F 94 H 20 187/74 H 96 09/07/16 15:52 09/07/16 15:52 09/07/16 15:52 09/07/16 15:52 09/07/16 15:52 Intake and Output: 09/07/16 09/07/16 06:59 18:59 Intake Total 120 120 Balance 120 120 - Medications Medications: Current Medications Acetaminophen (Tylenol 325mg Tab) 650 mg PO Q6 PRN PRN Reason: Fever >100.4 F Artificial Tears (Artificial Tears) 0 ml OU QID [facility] Last Admin: 09/07/16 13:18 Dose: 1 drop Epoetin Herve (Procrit) 10,000 unit IV TTS [facility] Last Admin: 09/06/16 13:10 Dose: 10,000 unit Vancomycin HCl 1 gm/ Sodium (Chloride) 250 mls @ 166.7 mls/hr IVPB Q24H [facility] Last Admin: 09/07/16 14:12 Dose: 166.7 mls/hr Megestrol Acetate (Megace) 40 mg PO DAILY [facility] Last Admin: 09/07/16 11:10 Dose: 40 mg Prednisone (Prednisone Tab) 10 mg PO DAILY [facility] Last Admin: 09/07/16 11:11 Dose: 10 mg Saliva Substitute (First Magic Mouthwash) 5 ml PO QID [facility] Last Admin: 09/07/16 13:18 Dose: Not Given Valacyclovir HCl (Valtrex) 500 mg PO DAILY [facility] Last Admin: 09/07/16 11:11 Dose: 500 mg Vancomycin HCl (Vancocin (Oral Or Rectal Use)) 125 mg PO QID [facility] Last Admin: 09/07/16 13:18 Dose: 125 mg - Labs Labs: 09/07/16 14:10 09/04/16 10:01 PT 10.3 SECONDS (9.7-12.2) 08/26/16 06:35 INR 0.9 08/26/16 06:35 APTT 20 SECONDS (21-34) L D 08/26/16 06:35 - Head Exam Head Exam: ATRAUMATIC - Eye Exam Eye Exam: Normal appearance - ENT Exam ENT Exam: Mucous Membranes Dry - Respiratory Exam Respiratory Exam: NORMAL BREATHING PATTERN - Cardiovascular Exam Cardiovascular Exam: +S1, +S2 Assessment and Plan (1) TTP (thrombotic thrombocytopenic purpura) Assessment & Plan: plt count downtrending s/p plasma exchange; may need to restart if relapse TTP Status: Acute
--- NOTE | 2016-09-07 17:39 | CP.PCM.PN ---
Subjective - Date & Time of Evaluation Date of Evaluation: 09/07/16 Time of Evaluation: 17:10 - Subjective Subjective: Appears comfortable family at bedside Objective - Vital Signs/Intake and Output Vital Signs (last 24 hours): Temp Pulse Resp BP Pulse Ox 97.9 F 94 H 20 187/74 H 96 09/07/16 15:52 09/07/16 15:52 09/07/16 15:52 09/07/16 15:52 09/07/16 15:52 Intake and Output: 09/07/16 09/07/16 06:59 18:59 Intake Total 120 120 Balance 120 120 - Medications Medications: Current Medications Acetaminophen (Tylenol 325mg Tab) 650 mg PO Q6 PRN PRN Reason: Fever >100.4 F Artificial Tears (Artificial Tears) 0 ml OU QID [facility] Last Admin: 09/07/16 13:18 Dose: 1 drop Epoetin Herve (Procrit) 10,000 unit IV TTS [facility] Last Admin: 09/06/16 13:10 Dose: 10,000 unit Vancomycin HCl 1 gm/ Sodium (Chloride) 250 mls @ 166.7 mls/hr IVPB Q24H [facility] Last Admin: 09/07/16 14:12 Dose: 166.7 mls/hr Megestrol Acetate (Megace) 40 mg PO DAILY [facility] Last Admin: 09/07/16 11:10 Dose: 40 mg Prednisone (Prednisone Tab) 10 mg PO DAILY [facility] Last Admin: 09/07/16 11:11 Dose: 10 mg Saliva Substitute (First Magic Mouthwash) 5 ml PO QID [facility] Last Admin: 09/07/16 13:18 Dose: Not Given Valacyclovir HCl (Valtrex) 500 mg PO DAILY [facility] Last Admin: 09/07/16 11:11 Dose: 500 mg Vancomycin HCl (Vancocin (Oral Or Rectal Use)) 125 mg PO QID [facility] Last Admin: 09/07/16 13:18 Dose: 125 mg - Labs Labs: 09/07/16 14:10 09/04/16 10:01 PT 10.3 SECONDS (9.7-12.2) 08/26/16 06:35 INR 0.9 08/26/16 06:35 APTT 20 SECONDS (21-34) L D 08/26/16 06:35 - Head Exam Head Exam: ATRAUMATIC - Eye Exam Eye Exam: Normal appearance - ENT Exam ENT Exam: Mucous Membranes Dry - Respiratory Exam Respiratory Exam: NORMAL BREATHING PATTERN - Cardiovascular Exam Cardiovascular Exam: +S1, +S2 - GI/Abdominal Exam GI & Abdominal Exam: Normal Bowel Sounds - Extremities Exam Extremities Exam: Normal Inspection Assessment and Plan (1) TTP (thrombotic thrombocytopenic purpura) Assessment & Plan: appears to have relapsed with downtrending plt smear reviewed an schisotcytes noted repeat CBC, LDH, retic in AM will plan to restart plasma exchange Status: Acute
[2016-09-08 07:32] LABS: BASO # 0.1 K/uL (0.0-0.2); BASO % 0.5 % (0.0-2.0); EOS # 0.1 K/uL (0.0-0.7); EOS % 1.3 % (0.0-4.0); HEMATOCRIT 27.1 % (34.0-47.0); LYMPH # 0.8 K/uL (1.0-4.3); LYMPH % 7.1 % (20.0-40.0); MEAN CORPUSCULAR HEMOGLOBIN 32.5 pg (27.0-31.0); MEAN CORPUSCULAR HGB CONC 31.6 g/dL (33.0-37.0); MEAN PLATELET VOLUME 8.7 fL (7.2-11.7); MONO # 0.7 K/uL (0.0-0.8); MONO % 5.8 % (0.0-10.0); RED CELL DISTRIBUTION WIDTH 19.8 % (11.5-14.5); RETIC% 3.7 % (0.5-1.5); WHITE BLOOD COUNT 11.3 K/uL (4.8-10.8)
[2016-09-08 07:45] LABS: MEAN CELL VOLUME 102.7 fL (81.0-99.0); PLATELET COUNT 116 K/uL (130-400)
[2016-09-08 08:01] LABS: POTASSIUM 4.1 mmol/L (3.6-5.2)
[2016-09-08 08:03] LABS: ALB/GLOB RATIO 0.9 (1.0-2.1); BILIRUBIN,TOTAL 0.6 mg/dL (0.2-1.3)
[2016-09-08 08:04] LABS: CALCIUM 7.6 mg/dl (8.6-10.4)
[2016-09-08 09:01] LABS: NEUTROPHIL 91 % (50-75); TOTAL CELLS COUNTED 100
[2016-09-08] MEDS: Mag&Al/Simet/Diphen/Lido 237 ML KIT PO SCH ×4 (09:53→21:28)
[2016-09-08] MEDS: Aritificial Tears (15ml) OU SCH ×4 (09:54→21:28)
[2016-09-08] MEDS: Vancomycin 125 MG/5 ML SOLN (ORAL/RECTAL) PO SCH ×3 (10:00→18:25)
--- NOTE | 2016-09-08 13:35 | CP.PCM.PN ---
Subjective - Date & Time of Evaluation Date of Evaluation: 09/08/16 Time of Evaluation: 13:35 - Subjective Subjective: follow up consult is dictated #[id number] Objective - Vital Signs/Intake and Output Vital Signs (last 24 hours): Temp Pulse Resp BP Pulse Ox 97.7 F 82 20 171/83 H 97 09/08/16 07:51 09/08/16 07:51 09/08/16 07:51 09/08/16 07:51 09/08/16 07:51 - Medications Medications: Current Medications Acetaminophen (Tylenol 325mg Tab) 650 mg PO Q6 PRN PRN Reason: Fever >100.4 F Artificial Tears (Artificial Tears) 0 ml OU QID [facility] Last Admin: 09/08/16 09:54 Dose: 1 drop Epoetin Herve (Procrit) 10,000 unit IV TTS [facility] Last Admin: 09/06/16 13:10 Dose: 10,000 unit Megestrol Acetate (Megace) 40 mg PO DAILY [facility] Last Admin: 09/08/16 09:54 Dose: 40 mg Prednisone (Prednisone Tab) 10 mg PO DAILY [facility] Last Admin: 09/08/16 09:54 Dose: 10 mg Saliva Substitute (First Magic Mouthwash) 5 ml PO QID [facility] Last Admin: 09/08/16 09:53 Dose: 5 ml Valacyclovir HCl (Valtrex) 500 mg PO DAILY [facility] Last Admin: 09/08/16 09:54 Dose: 500 mg Vancomycin HCl (Vancocin (Oral Or Rectal Use)) 125 mg PO QID [facility] Last Admin: 09/08/16 10:00 Dose: Not Given - Labs Labs: 09/08/16 07:22 09/08/16 07:22 PT 11.1 SECONDS (9.7-12.2) 09/08/16 07:22 INR 1.0 09/08/16 07:22 APTT 24 SECONDS (21-34) 09/08/16 07:22
--- NOTE | 2016-09-08 13:38 | CP.PCM.PN ---
Subjective - Date & Time of Evaluation Date of Evaluation: 09/08/16 Time of Evaluation: 13:38 Objective - Vital Signs/Intake and Output Vital Signs (last 24 hours): Temp Pulse Resp BP Pulse Ox 97.7 F 82 20 171/83 H 97 09/08/16 07:51 09/08/16 07:51 09/08/16 07:51 09/08/16 07:51 09/08/16 07:51 - Medications Medications: Current Medications Acetaminophen (Tylenol 325mg Tab) 650 mg PO Q6 PRN PRN Reason: Fever >100.4 F Artificial Tears (Artificial Tears) 0 ml OU QID [facility] Last Admin: 09/08/16 09:54 Dose: 1 drop Epoetin Herve (Procrit) 10,000 unit IV TTS [facility] Last Admin: 09/06/16 13:10 Dose: 10,000 unit Megestrol Acetate (Megace) 40 mg PO DAILY [facility] Last Admin: 09/08/16 09:54 Dose: 40 mg Prednisone (Prednisone Tab) 10 mg PO DAILY [facility] Last Admin: 09/08/16 09:54 Dose: 10 mg Saliva Substitute (First Magic Mouthwash) 5 ml PO QID [facility] Last Admin: 09/08/16 09:53 Dose: 5 ml Valacyclovir HCl (Valtrex) 500 mg PO DAILY [facility] Last Admin: 09/08/16 09:54 Dose: 500 mg Vancomycin HCl (Vancocin (Oral Or Rectal Use)) 125 mg PO QID [facility] Last Admin: 09/08/16 10:00 Dose: Not Given - Labs Labs: 09/08/16 07:22 09/08/16 07:22 PT 11.1 SECONDS (9.7-12.2) 09/08/16 07:22 INR 1.0 09/08/16 07:22 APTT 24 SECONDS (21-34) 09/08/16 07:22
--- NOTE | 2016-09-08 18:11 | CP.PCM.PN ---
Subjective - Date & Time of Evaluation Date of Evaluation: 09/08/16 Time of Evaluation: 09:00 - Subjective Subjective: clinically same Objective - Vital Signs/Intake and Output Vital Signs (last 24 hours): Temp Pulse Resp BP Pulse Ox 99.1 F 101 H 20 170/85 H 95 09/08/16 15:27 09/08/16 15:27 09/08/16 15:27 09/08/16 15:27 09/08/16 15:27 - Medications Medications: Current Medications Acetaminophen (Tylenol 325mg Tab) 650 mg PO Q6 PRN PRN Reason: Fever >100.4 F Artificial Tears (Artificial Tears) 0 ml OU QID [facility] Last Admin: 09/08/16 14:14 Dose: 1 drop Epoetin Herve (Procrit) 10,000 unit IV TTS [facility] Last Admin: 09/06/16 13:10 Dose: 10,000 unit Megestrol Acetate (Megace) 40 mg PO DAILY [facility] Last Admin: 09/08/16 09:54 Dose: 40 mg Prednisone (Prednisone Tab) 10 mg PO DAILY [facility] Last Admin: 09/08/16 09:54 Dose: 10 mg Saliva Substitute (First Magic Mouthwash) 5 ml PO QID [facility] Last Admin: 09/08/16 14:14 Dose: 5 ml Valacyclovir HCl (Valtrex) 500 mg PO DAILY [facility] Last Admin: 09/08/16 09:54 Dose: 500 mg - Labs Labs: 09/08/16 07:22 09/08/16 07:22 PT 11.1 SECONDS (9.7-12.2) 09/08/16 07:22 INR 1.0 09/08/16 07:22 APTT 24 SECONDS (21-34) 09/08/16 07:22 - Constitutional Appears: Well - Head Exam Head Exam: ATRAUMATIC, NORMAL INSPECTION, NORMOCEPHALIC - Eye Exam Eye Exam: EOMI, Normal appearance, PERRL Pupil Exam: NORMAL ACCOMODATION, PERRL - ENT Exam ENT Exam: Mucous Membranes Moist, Normal Exam - Neck Exam Neck Exam: Full ROM, Normal Inspection. absent: Lymphadenopathy - Respiratory Exam Respiratory Exam: Decreased Breath Sounds - Cardiovascular Exam Cardiovascular Exam: REGULAR RHYTHM, +S1, +S2 - GI/Abdominal Exam GI & Abdominal Exam: Soft, Diminished Bowel Sounds - Rectal Exam Rectal Exam: Deferred Assessment and Plan (1) Cardiac dysrhythmia Status: Acute (2) ESRD (end stage renal disease) on dialysis Status: Acute (3) Pulmonary edema Status: Acute (4) MARCO (acute kidney injury) Status: Acute (5) Acute respiratory failure requiring reintubation Status: Acute (6) Arthritis Status: Acute (7) CHF (congestive heart failure) Status: Acute (8) Dehydration Status: Acute (9) Dehydration Status: Acute (10) Diverticulosis Status: Acute (11) Elevated CEA Status: Acute (12) Hypertension Status: Acute (13) Inguinal lymphadenopathy Status: Acute (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
--- NOTE | 2016-09-09 03:56 | CON ---
FOLLOWUP RENAL CONSULTATION DATE: 09/08/2016 The patent is located in room 557, bed A REQUESTED BY: Dr. Kavon Ureña REASON FOR CONSULTATION: Renal failure, continuation of the hemodialysis. HISTORY OF PRESENT ILLNESS: Mrs. Denise Garcia is an 80-year-old elderly female with a history of longstanding hypertension, rheumatoid arthritis, cardiomyopathy, renal failure, TTP status post plasmapheresis x2 sessions during last admission and this admission, now with worsening platelets. The patient was seen and examined during dialysis and UF goal is about 1-1.5 liters on average and the patient is not in acute distress. The patient's family is at the bedside in the room. The patient denies any chest pain or palpitations. No fever and no cough. No abdominal pain. No nausea, vomiting, or diarrhea. PHYSICAL EXAMINATION: GENERAL: Mrs. Denise Garcia is an 80 years old elderly female, moderately built, moderately nourished, not in distress. VITAL SIGNS: Blood pressure 171/83, pulse 82, respirations 20, temperature 97.7, saturation 97%, height 5 feet 2 inches, and weight 154 pounds. HEENT: Pupils normal and reactive to light and accommodation. Conjunctivae pink. Sclerae anicteric. Tongue is moist. NECK: Trachea is midline. LUNGS: Symmetrical on both sides. Bilateral breath sounds present, clear on auscultation. CENTRAL NERVOUS SYSTEM: [place] at the fifth intercostal space midclavicular line. S1 and S2 audible. No murmur or gallop. The patient is arousable following simple commands. Oriented x2. Sensory and motor system is grossly within normal limits. ABDOMEN: Normal in appearance and soft and tympanic. No guarding. There is no hepatosplenomegaly. EXTREMITIES: No cyanosis, no clubbing, and no edema. CURRENT MEDICATIONS: Include as follows: Artificial tears, saliva substitute, and Megace 40 mg p.o. daily and prednisone 10 mg p.o. daily, Procrit 10,000 units three times a week and Tylenol and Valtrex. LABORATORY DATA: Include as follows: As of 09/08/2016 WBC 11.3, hemoglobin 8.6, hematocrit 27.1, platelets 116, neutrophils is 91, lymph 7, and monos 2. Retic count is 3.7. PT 11.1 and PTT 24. Fibrinogen 314. Sodium 134, potassium 4.1, chloride 96, CO2 28, BUN 24, creatinine 4.7, glucose 89, calcium 7.6. Total bilirubin 0.68, AST 43, ALT 61, alkaline phosphatase 96, and LDH is 829, total protein 5, albumin is 2.4. Stool for C. diff toxin is negative. SUMMARY: Mrs. Denise Garcia is an 80 years old elderly female with hypertension, rheumatoid arthritis, cardiomyopathy, thrombotic thrombocytopenic purpura, renal failure on hemodialysis. 1. Renal failure. Most likely secondary to acute on chronic kidney disease, cannot rule out thrombotic microangiopathy secondary to thrombotic thrombocytopenic purpura. The patient's family refused kidney biopsy. 2. Hypertension. Blood pressure is stable. Continue current medication. 3. Anemia secondary to renal failure, cannot rule out secondary thrombotic thrombocytopenic purpura and slow hemolysis. 4. Thrombocytopenia. Follow up with cloth colorer for possible recurrence of the thrombotic thrombocytopenic purpura. 5. Cardiomyopathy. The patient has a LifeVest. We will schedule for hemodialysis in the a.m. and repeat BMP and CBC in the a.m. We will follow up with you. Thank you for allowing me to participate in our patient's care. Horacio Graham MD
[2016-09-09 07:16] LABS: BASO # 0.1 K/uL (0.0-0.2); BASO % 0.9 % (0.0-2.0); EOS # 0.2 K/uL (0.0-0.7); EOS % 1.9 % (0.0-4.0); HEMATOCRIT 28.7 % (34.0-47.0); LYMPH % 9.5 % (20.0-40.0); MEAN CELL VOLUME 103.2 fL (81.0-99.0); MEAN CORPUSCULAR HEMOGLOBIN 32.7 pg (27.0-31.0); MEAN CORPUSCULAR HGB CONC 31.7 g/dL (33.0-37.0); MEAN PLATELET VOLUME 8.6 fL (7.2-11.7); MONO # 0.7 K/uL (0.0-0.8); MONO % 6.6 % (0.0-10.0); PLATELET COUNT 101 K/uL (130-400); RED CELL DISTRIBUTION WIDTH 19.6 % (11.5-14.5); WHITE BLOOD COUNT 10.5 K/uL (4.8-10.8)
[2016-09-09 07:43] LABS: POTASSIUM 4.7 mmol/L (3.6-5.2)
[2016-09-09 07:45] LABS: ALB/GLOB RATIO 0.9 (1.0-2.1); BILIRUBIN,TOTAL 0.6 mg/dL (0.2-1.3)
[2016-09-09 07:46] LABS: CALCIUM 7.6 mg/dl (8.6-10.4)
[2016-09-09 08:17] LABS: EOSINOPHIL 1 % (0-4); NEUTROPHIL 75 % (50-75); TOTAL CELLS COUNTED 100
--- NOTE | 2016-09-09 09:11 | CP.PCM.PN ---
Subjective - Date & Time of Evaluation Date of Evaluation: 09/09/16 Time of Evaluation: 09:10 - Subjective Subjective: pt seen and examined, follow up consult is dictated #[id number] for hd today Objective - Vital Signs/Intake and Output Vital Signs (last 24 hours): Temp Pulse Resp BP Pulse Ox 98.7 F 90 20 174/90 H 94 L 09/09/16 08:00 09/09/16 08:00 09/09/16 08:00 09/09/16 08:00 09/09/16 08:00 Intake and Output: 09/09/16 09/09/16 06:59 18:59 Intake Total 100 Balance 100 - Medications Medications: Current Medications Acetaminophen (Tylenol 325mg Tab) 650 mg PO Q6 PRN PRN Reason: Fever >100.4 F Artificial Tears (Artificial Tears) 0 ml OU QID [facility] Last Admin: 09/08/16 21:28 Dose: 1 drop Epoetin Herve (Procrit) 10,000 unit IV TTS [facility] Last Admin: 09/06/16 13:10 Dose: 10,000 unit Megestrol Acetate (Megace) 40 mg PO DAILY [facility] Last Admin: 09/08/16 09:54 Dose: 40 mg Prednisone (Prednisone Tab) 10 mg PO DAILY [facility] Last Admin: 09/08/16 09:54 Dose: 10 mg Saliva Substitute (First Magic Mouthwash) 5 ml PO QID [facility] Last Admin: 09/08/16 21:28 Dose: Not Given Valacyclovir HCl (Valtrex) 500 mg PO DAILY [facility] Last Admin: 09/08/16 09:54 Dose: 500 mg - Labs Labs: 09/09/16 07:01 09/09/16 07:01 PT 11.1 SECONDS (9.7-12.2) 09/08/16 07:22 INR 1.0 09/08/16 07:22 APTT 24 SECONDS (21-34) 09/08/16 07:22
[2016-09-09] MEDS: Epoetin Alfa 10,000 unit/ml Dialysis IV SCH (11:05)
--- NOTE | 2016-09-09 13:17 | PN ---
DATE: The patent is located in room 557, bed A REQUESTED BY: Dr. Kavon Ureña. REASON FOR FOLLOWUP: Renal failure, hypertension, TTP and continuation of hemodialysis. SUBJECTIVE: Ms. Denise Garcia is an 80-year-old elderly female with a history of hypertension, rheumatoid arthritis and cardiomyopathy. Recently diagnosed TTP for thrombocytopenia, status post plasmapheresis x2, one during her last admission and another session on this admission. After plasmapheresis, her platelets went up to 178 and now platelets are slowly dropping. The patient is not in acute distress. The patient is being dialyzed. No complaints. No shortness of breath. No chest pain. No palpitation. No fever. No cough. PHYSICAL EXAMINATION: GENERAL: Ms. Denise Garcia is an 80-year-old elderly female, moderately built, moderately nourished, not in distress. VITAL SIGNS: This morning as follows, blood pressure 174/90, pulse 90, respirations 20, temperature 98.7, saturation is 94%. Height 5 feet 2 inches and weight is 154 pounds. HEENT: Pupils normal and reactive to light and accommodation. Conjunctivae pink. Sclerae anicteric. Tongue is moist. Trachea is midline. LUNGS: Symmetrical on both sides. Bilateral breath sounds present, clear on auscultation. CVS: [place] at the fifth intercostal space, midclavicular line. S1 and S2 audible. No murmur or gallop. ABDOMEN: Normal in appearance, soft, tympanic. No guarding. No rigidity. No hepatosplenomegaly. CENTRAL NERVOUS SYSTEM: The patient is alert, awake and oriented x2. Sensory and motor systems was grossly within limits. EXTREMITIES: No cyanosis. No clubbing. No edema. CURRENT MEDICATIONS: Include as follows: Artificial tears, Megace, prednisone 10 mg p.o. daily, Procrit 10,000 three times a week, Tylenol and valacyclovir 500 mg p.o. daily. LABORATORY DATA: Include as follows: As of 09/09/2016; WBC 10.5, hemoglobin 9.1, hematocrit 28.7, platelets 101, neutrophils 75, bands 4, lymphocyte 14, monocyte 6 and eosinophils 1. Sodium 132, potassium 4.7, chloride 96, CO2 is 26, BUN 32, creatinine 5.7, glucose 83, calcium 7.6. Total bilirubin 0.6, AST 45, ALT 71, alkaline phosphatase 95, protein5, albumin is 2.4. Perm-A-Cath exit site wound cultures. No polymorph observed. No organism seen. ASSESSMENT AND PLAN: In summary, Ms. Denise Garcia is an 80-year-old elderly female with history of hypertension, rheumatoid arthritis, cardiomyopathy, congestive heart failure, thrombotic thrombocytopenic purpura, renal failure on hemodialysis three times a week Thursday, , and Thursday. 1. Renal failure. Most likely [id number] kidney disease, can't r/o end-stage renal disease secondary to thrombotic thrombocytopenic purpura/ TMA 2. Hypertension. Blood pressure is stable. Continue current medications and we will add Norvasc 2.5 mg p.o. daily and also we will add Nephrocaps 1 tablet daily and add Zemplar 2 mcg 3 times a week. 3. Thrombocytopenia. Rule out recurrence of thrombotic thrombocytopenic purpura again. 4. Anemia secondary to renal failure and thrombotic thrombocytopenic purpura. 5. Cardiomyopathy. We will follow up with you. Thank you for allowing me to participate in our patient's care. Horacio Graham MD MTDD
[2016-09-09] MEDS: Mag&Al/Simet/Diphen/Lido 237 ML KIT PO SCH ×3 (15:25→22:03)
[2016-09-09] MEDS: Aritificial Tears (15ml) OU SCH ×3 (15:25→22:03)
--- NOTE | 2016-09-09 16:55 | CP.PCM.PN ---
Subjective - Date & Time of Evaluation Date of Evaluation: 09/09/16 Time of Evaluation: 10:00 - Subjective Subjective: clinically same Objective - Vital Signs/Intake and Output Vital Signs (last 24 hours): Temp Pulse Resp BP Pulse Ox 98.3 F 91 H 20 170/75 H 95 09/09/16 15:49 09/09/16 15:49 09/09/16 15:49 09/09/16 15:49 09/09/16 15:49 Intake and Output: 09/09/16 09/09/16 06:59 18:59 Intake Total 100 Balance 100 - Medications Medications: Current Medications Acetaminophen (Tylenol 325mg Tab) 650 mg PO Q6 PRN PRN Reason: Fever >100.4 F Acetaminophen (Tylenol 650 Mg Supp) 650 mg [place] DAILY PRN PRN Reason: Anaphylaxis Stop: 09/13/16 13:27 Artificial Tears (Artificial Tears) 0 ml OU QID [facility] Last Admin: 09/09/16 15:25 Dose: Not Given Diphenhydramine HCl (Benadryl) 50 mg IVP DAILY PRN PRN Reason: Anaphylaxis Stop: 09/13/16 13:27 Epoetin Herve (Procrit) 10,000 unit IV TTS [facility] Last Admin: 09/09/16 11:05 Dose: 10,000 unit Heparin Sodium (Porcine) (Heparin) 3,400 units IVP TTS [facility] Last Admin: 09/09/16 11:20 Dose: 3,400 units Calcium Gluconate 2,000 mg/ (Sodium Chloride) 270 mls @ 100 mls/hr IVPB DAILY [facility] Stop: 09/13/16 16:01 Megestrol Acetate (Megace) 40 mg PO DAILY [facility] Last Admin: 09/09/16 15:25 Dose: Not Given Methylprednisolone (Solu-Medrol) 100 mg IV DAILY PRN PRN Reason: Anaphylaxis Stop: 09/13/16 13:27 Prednisone (Prednisone Tab) 10 mg PO DAILY [facility] Last Admin: 09/09/16 15:25 Dose: Not Given Saliva Substitute (First Magic Mouthwash) 5 ml PO QID [facility] Last Admin: 09/09/16 15:25 Dose: Not Given Valacyclovir HCl (Valtrex) 500 mg PO DAILY [facility] Last Admin: 09/09/16 15:25 Dose: Not Given - Labs Labs: 09/09/16 07:01 09/09/16 07:01 PT 11.1 SECONDS (9.7-12.2) 09/08/16 07:22 INR 1.0 09/08/16 07:22 APTT 24 SECONDS (21-34) 09/08/16 07:22 - Constitutional Appears: Well - Head Exam Head Exam: ATRAUMATIC, NORMAL INSPECTION, NORMOCEPHALIC - Eye Exam Eye Exam: EOMI, Normal appearance, PERRL Pupil Exam: NORMAL ACCOMODATION, PERRL - ENT Exam ENT Exam: Mucous Membranes Moist, Normal Exam - Neck Exam Neck Exam: Full ROM, Normal Inspection. absent: Lymphadenopathy - Respiratory Exam Respiratory Exam: Decreased Breath Sounds - Cardiovascular Exam Cardiovascular Exam: REGULAR RHYTHM, +S1, +S2 - GI/Abdominal Exam GI & Abdominal Exam: Soft, Diminished Bowel Sounds - Rectal Exam Rectal Exam: Deferred Assessment and Plan (1) Cardiac dysrhythmia Status: Acute (2) ESRD (end stage renal disease) on dialysis Status: Acute (3) Pulmonary edema Status: Acute (4) MARCO (acute kidney injury) Status: Acute (5) Acute respiratory failure requiring reintubation Status: Acute (6) Arthritis Status: Acute (7) CHF (congestive heart failure) Status: Acute (8) Dehydration Status: Acute (9) Dehydration Status: Acute (10) Diverticulosis Status: Acute (11) Elevated CEA Status: Acute (12) Hypertension Status: Acute (13) Inguinal lymphadenopathy Status: Acute (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
--- NOTE | 2016-09-09 19:29 | CP.PCM.PN ---
Subjective - Date & Time of Evaluation Date of Evaluation: 09/09/16 Time of Evaluation: 11:30 - Subjective Subjective: Appears comfortable to restart plasma exchange today Objective - Vital Signs/Intake and Output Vital Signs (last 24 hours): Temp Pulse Resp BP Pulse Ox 98.3 F 91 H 20 170/75 H 95 09/09/16 15:49 09/09/16 15:49 09/09/16 15:49 09/09/16 15:49 09/09/16 15:49 - Medications Medications: Current Medications Acetaminophen (Tylenol 325mg Tab) 650 mg PO Q6 PRN PRN Reason: Fever >100.4 F Acetaminophen (Tylenol 650 Mg Supp) 650 mg [place] DAILY PRN PRN Reason: Anaphylaxis Stop: 09/13/16 13:27 Artificial Tears (Artificial Tears) 0 ml OU QID [facility] Last Admin: 09/09/16 15:25 Dose: Not Given Diphenhydramine HCl (Benadryl) 50 mg IVP DAILY PRN PRN Reason: Anaphylaxis Stop: 09/13/16 13:27 Epoetin Herve (Procrit) 10,000 unit IV TTS [facility] Last Admin: 09/09/16 11:05 Dose: 10,000 unit Heparin Sodium (Porcine) (Heparin) 3,400 units IVP TTS [facility] Last Admin: 09/09/16 11:20 Dose: 3,400 units Calcium Gluconate 2,000 mg/ (Sodium Chloride) 270 mls @ 100 mls/hr IVPB DAILY [facility] Stop: 09/13/16 16:01 Megestrol Acetate (Megace) 40 mg PO DAILY [facility] Last Admin: 09/09/16 15:25 Dose: Not Given Methylprednisolone (Solu-Medrol) 100 mg IV DAILY PRN PRN Reason: Anaphylaxis Stop: 09/13/16 13:27 Prednisone (Prednisone Tab) 10 mg PO DAILY [facility] Last Admin: 09/09/16 15:25 Dose: Not Given Saliva Substitute (First Magic Mouthwash) 5 ml PO QID [facility] Last Admin: 09/09/16 15:25 Dose: Not Given Valacyclovir HCl (Valtrex) 500 mg PO DAILY [facility] Last Admin: 09/09/16 15:25 Dose: Not Given - Labs Labs: 09/09/16 07:01 09/09/16 07:01 PT 11.1 SECONDS (9.7-12.2) 09/08/16 07:22 INR 1.0 09/08/16 07:22 APTT 24 SECONDS (21-34) 09/08/16 07:22 - Head Exam Head Exam: ATRAUMATIC - Eye Exam Eye Exam: Normal appearance - ENT Exam ENT Exam: Mucous Membranes Dry - Respiratory Exam Respiratory Exam: NORMAL BREATHING PATTERN - Cardiovascular Exam Cardiovascular Exam: +S1, +S2 - GI/Abdominal Exam GI & Abdominal Exam: Normal Bowel Sounds - Extremities Exam Extremities Exam: Normal Inspection Assessment and Plan (1) TTP (thrombotic thrombocytopenic purpura) Assessment & Plan: relapsed for plasma exchange today steroids will consider increasing plasma volume exchange Status: Acute
[2016-09-10 08:10] LABS: BASO % 0.6 % (0.0-2.0); HEMATOCRIT 27.2 % (34.0-47.0); LYMPH # 0.5 K/uL (1.0-4.3); LYMPH % 7.4 % (20.0-40.0); MEAN CELL VOLUME 101.4 fL (81.0-99.0); MEAN CORPUSCULAR HGB CONC 31.6 g/dL (33.0-37.0); MEAN PLATELET VOLUME 10.2 fL (7.2-11.7); MONO # 0.1 K/uL (0.0-0.8); MONO % 1.4 % (0.0-10.0); NRBC % 0.1 % (0.0-2.0); PLATELET COUNT 100 K/uL (130-400); RED CELL DISTRIBUTION WIDTH 18.6 % (11.5-14.5); WHITE BLOOD COUNT 6.8 K/uL (4.8-10.8)
[2016-09-10 08:38] LABS: POTASSIUM 5.3 mmol/L (3.6-5.2)
[2016-09-10 08:39] LABS: ALB/GLOB RATIO 0.9 (1.0-2.1); BILIRUBIN,TOTAL 0.8 mg/dL (0.2-1.3); TOTAL PROTEIN 5.5 g/dL (6.3-8.3)
[2016-09-10 08:40] LABS: CALCIUM 7.8 mg/dl (8.6-10.4)
[2016-09-10 09:01] LABS: NEUTROPHIL 91 % (50-75); TOTAL CELLS COUNTED 100
--- NOTE | 2016-09-10 10:20 | CP.PCM.PN ---
Subjective - Date & Time of Evaluation Date of Evaluation: 09/10/16 Time of Evaluation: 10:19 - Subjective Subjective: pt seen and examined, follow up consult is dictated #[id number] relapsed ttp, started on TPE #1 yesterday Objective - Vital Signs/Intake and Output Vital Signs (last 24 hours): Temp Pulse Resp BP Pulse Ox 98.7 F 89 20 155/67 H 100 09/09/16 23:11 09/09/16 23:11 09/09/16 23:11 09/09/16 23:11 09/09/16 23:11 Intake and Output: 09/10/16 09/10/16 06:59 18:59 Intake Total 100 Balance 100 - Medications Medications: Current Medications Acetaminophen (Tylenol 325mg Tab) 650 mg PO Q6 PRN PRN Reason: Fever >100.4 F Acetaminophen (Tylenol 650 Mg Supp) 650 mg IN DAILY PRN PRN Reason: Anaphylaxis Stop: 09/13/16 13:27 Last Admin: 09/09/16 22:43 Dose: 650 mg Artificial Tears (Artificial Tears) 0 ml OU QID [facility] Last Admin: 09/09/16 22:03 Dose: Not Given Diphenhydramine HCl (Benadryl) 50 mg IVP DAILY PRN PRN Reason: Anaphylaxis Stop: 09/13/16 13:27 Epoetin Herve (Procrit) 10,000 unit IV TTS [facility] Last Admin: 09/09/16 11:05 Dose: 10,000 unit Heparin Sodium (Porcine) (Heparin) 3,400 units IVP TTS [facility] Last Admin: 09/09/16 11:20 Dose: 3,400 units Calcium Gluconate 2,000 mg/ (Sodium Chloride) 270 mls @ 100 mls/hr IVPB DAILY [facility] Stop: 09/13/16 16:01 Last Admin: 09/09/16 22:44 Dose: 100 mls/hr Megestrol Acetate (Megace) 40 mg PO DAILY [facility] Last Admin: 09/09/16 15:25 Dose: Not Given Methylprednisolone (Solu-Medrol) 100 mg IV DAILY PRN PRN Reason: Anaphylaxis Stop: 09/13/16 13:27 Last Admin: 09/09/16 22:46 Dose: 100 mg Prednisone (Prednisone Tab) 10 mg PO DAILY [facility] Last Admin: 09/09/16 15:25 Dose: Not Given Saliva Substitute (First Magic Mouthwash) 5 ml PO QID [facility] Last Admin: 09/09/16 22:03 Dose: Not Given Valacyclovir HCl (Valtrex) 500 mg PO DAILY [facility] Last Admin: 09/09/16 15:25 Dose: Not Given - Labs Labs: 09/10/16 08:03 09/10/16 08:03 PT 11.1 SECONDS (9.7-12.2) 09/08/16 07:22 INR 1.0 09/08/16 07:22 APTT 24 SECONDS (21-34) 09/08/16 07:22
[2016-09-10] MEDS: Mag&Al/Simet/Diphen/Lido 237 ML KIT PO SCH ×4 (10:46→21:29)
[2016-09-10] MEDS: Aritificial Tears (15ml) OU SCH ×4 (10:46→21:29)
--- NOTE | 2016-09-10 11:05 | CP.PCM.PN ---
Subjective - Date & Time of Evaluation Date of Evaluation: 09/10/16 Time of Evaluation: 10:20 - Subjective Subjective: clinically same Objective - Vital Signs/Intake and Output Vital Signs (last 24 hours): Temp Pulse Resp BP Pulse Ox 98.7 F 89 20 155/67 H 100 09/09/16 23:11 09/09/16 23:11 09/09/16 23:11 09/09/16 23:11 09/09/16 23:11 Intake and Output: 09/10/16 09/10/16 06:59 18:59 Intake Total 100 Balance 100 - Medications Medications: Current Medications Acetaminophen (Tylenol 325mg Tab) 650 mg PO Q6 PRN PRN Reason: Fever >100.4 F Acetaminophen (Tylenol 650 Mg Supp) 650 mg [place] DAILY PRN PRN Reason: Anaphylaxis Stop: 09/13/16 13:27 Last Admin: 09/09/16 22:43 Dose: 650 mg Artificial Tears (Artificial Tears) 0 ml OU QID [facility] Last Admin: 09/10/16 10:46 Dose: 1 drop Diphenhydramine HCl (Benadryl) 50 mg IVP DAILY PRN PRN Reason: Anaphylaxis Stop: 09/13/16 13:27 Epoetin Herve (Procrit) 10,000 unit IV TTS [facility] Last Admin: 09/09/16 11:05 Dose: 10,000 unit Heparin Sodium (Porcine) (Heparin) 3,400 units IVP TTS [facility] Last Admin: 09/09/16 11:20 Dose: 3,400 units Calcium Gluconate 2,000 mg/ (Sodium Chloride) 270 mls @ 100 mls/hr IVPB DAILY [facility] Stop: 09/13/16 16:01 Last Admin: 09/10/16 10:47 Dose: 100 mls/hr Megestrol Acetate (Megace) 40 mg PO DAILY [facility] Last Admin: 09/10/16 10:47 Dose: 40 mg Methylprednisolone (Solu-Medrol) 100 mg IV DAILY PRN PRN Reason: Anaphylaxis Stop: 09/13/16 13:27 Last Admin: 09/09/16 22:46 Dose: 100 mg Prednisone (Prednisone Tab) 10 mg PO DAILY [facility] Last Admin: 09/10/16 10:47 Dose: 10 mg Saliva Substitute (First Magic Mouthwash) 5 ml PO QID [facility] Last Admin: 09/10/16 10:46 Dose: 5 ml Valacyclovir HCl (Valtrex) 500 mg PO DAILY [facility] Last Admin: 09/10/16 10:47 Dose: 500 mg - Labs Labs: 09/10/16 08:03 09/10/16 08:03 PT 11.1 SECONDS (9.7-12.2) 09/08/16 07:22 INR 1.0 09/08/16 07:22 APTT 24 SECONDS (21-34) 09/08/16 07:22 - Constitutional Appears: Well - Head Exam Head Exam: ATRAUMATIC, NORMAL INSPECTION, NORMOCEPHALIC - Eye Exam Eye Exam: EOMI, Normal appearance, PERRL Pupil Exam: NORMAL ACCOMODATION, PERRL - ENT Exam ENT Exam: Mucous Membranes Moist, Normal Exam - Neck Exam Neck Exam: Full ROM, Normal Inspection. absent: Lymphadenopathy - Respiratory Exam Respiratory Exam: Decreased Breath Sounds - Cardiovascular Exam Cardiovascular Exam: REGULAR RHYTHM, +S1, +S2 - GI/Abdominal Exam GI & Abdominal Exam: Soft, Diminished Bowel Sounds - Rectal Exam Rectal Exam: Deferred Assessment and Plan (1) Cardiac dysrhythmia Status: Acute (2) ESRD (end stage renal disease) on dialysis Status: Acute (3) MARCO (acute kidney injury) Status: Acute (4) Acute respiratory failure requiring reintubation Status: Acute (5) Arthritis Status: Acute (6) CHF (congestive heart failure) Status: Acute (7) Dehydration Status: Acute (8) Dehydration Status: Acute (9) Diverticulosis Status: Acute (10) Elevated CEA Status: Acute (11) Hypertension Status: Acute (12) Inguinal lymphadenopathy Status: Acute (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 López again followed up continue follow-up with the blood test follow-up with the vital signs
--- NOTE | 2016-09-10 12:22 | CP.PCM.PN ---
<Babar Holm - Last Filed: 09/10/16 12:16> Subjective - Date & Time of Evaluation Date of Evaluation: 09/10/16 Time of Evaluation: 10:00 - Subjective Subjective: PGY3 on heme/onc Dr. Montanez service: Pt seen and examined at bedside this morning. S/P plasma exchange therapy yesterday. No acute events overnight. Not oriented. Per daughter at bedside, pt had previous encounters and orientation improved with treatment. Objective - Vital Signs/Intake and Output Vital Signs (last 24 hours): Temp Pulse Resp BP Pulse Ox 98.7 F 89 20 155/67 H 100 09/09/16 23:11 09/09/16 23:11 09/09/16 23:11 09/09/16 23:11 09/09/16 23:11 Intake and Output: 09/10/16 09/10/16 06:59 18:59 Intake Total 100 Balance 100 - Medications Medications: Current Medications Acetaminophen (Tylenol 325mg Tab) 650 mg PO Q6 PRN PRN Reason: Fever >100.4 F Acetaminophen (Tylenol 650 Mg Supp) 650 mg [place] DAILY PRN PRN Reason: Anaphylaxis Stop: 09/13/16 13:27 Last Admin: 09/09/16 22:43 Dose: 650 mg Artificial Tears (Artificial Tears) 0 ml OU QID [facility] Last Admin: 09/10/16 10:46 Dose: 1 drop Diphenhydramine HCl (Benadryl) 50 mg IVP DAILY PRN PRN Reason: Anaphylaxis Stop: 09/13/16 13:27 Epoetin Herve (Procrit) 10,000 unit IV TTS [facility] Last Admin: 09/09/16 11:05 Dose: 10,000 unit Heparin Sodium (Porcine) (Heparin) 3,400 units IVP TTS [facility] Last Admin: 09/09/16 11:20 Dose: 3,400 units Calcium Gluconate 2,000 mg/ (Sodium Chloride) 270 mls @ 100 mls/hr IVPB DAILY [facility] Stop: 09/13/16 16:01 Last Admin: 09/10/16 10:47 Dose: 100 mls/hr Megestrol Acetate (Megace) 40 mg PO DAILY [facility] Last Admin: 09/10/16 10:47 Dose: 40 mg Methylprednisolone (Solu-Medrol) 100 mg IV DAILY PRN PRN Reason: Anaphylaxis Stop: 09/13/16 13:27 Last Admin: 09/09/16 22:46 Dose: 100 mg Prednisone (Prednisone Tab) 10 mg PO DAILY [facility] Last Admin: 09/10/16 10:47 Dose: 10 mg Saliva Substitute (First Magic Mouthwash) 5 ml PO QID [facility] Last Admin: 09/10/16 10:46 Dose: 5 ml Valacyclovir HCl (Valtrex) 500 mg PO DAILY [facility] Last Admin: 09/10/16 10:47 Dose: 500 mg - Labs Labs: 09/10/16 08:03 09/10/16 08:03 PT 11.1 SECONDS (9.7-12.2) 09/08/16 07:22 INR 1.0 09/08/16 07:22 APTT 24 SECONDS (21-34) 09/08/16 07:22 - Constitutional Appears: Non-toxic, No Acute Distress - Head Exam Head Exam: NORMOCEPHALIC - Eye Exam Pupil Exam: NORMAL ACCOMODATION - Respiratory Exam Respiratory Exam: NORMAL BREATHING PATTERN - Cardiovascular Exam Cardiovascular Exam: REGULAR RHYTHM, +S1, +S2 - GI/Abdominal Exam GI & Abdominal Exam: Normal Bowel Sounds - Neurological Exam Neurological Exam: Altered, Awake Assessment and Plan - Assessment and Plan (Free Text) Assessment: (1) TTP (thrombotic thrombocytopenic purpura) Assessment & Plan: Relapsed, currently on plasmapheresis. X1 yesterday, need total of 4 days with 3500cc FFP. Continue steroids. Will consider increasing plasma volume exchange as per attending. Continue monitoring platelet. Status: Acute (2) Renal failure Assessment & Plan: Acute on chronic Continue HD TTS as per nephro. Status: Acute <Lazaro Montanez - Last Filed: 09/11/16 17:17> Objective - Vital Signs/Intake and Output Vital Signs (last 24 hours): Temp Pulse Resp BP Pulse Ox 97.7 F 139 H 22 200/104 H 97 09/11/16 16:00 09/11/16 16:00 09/11/16 16:00 09/11/16 16:00 09/11/16 16:00 Intake and Output: 09/11/16 09/11/16 06:59 18:59 Intake Total 10 Balance 10 - Medications Medications: Current Medications Acetaminophen (Tylenol 325mg Tab) 650 mg PO Q6 PRN PRN Reason: Fever >100.4 F Acetaminophen (Tylenol 650 Mg Supp) 650 mg [place] DAILY PRN PRN Reason: Anaphylaxis Stop: 09/13/16 13:27 Last Admin: 09/11/16 10:53 Dose: 650 mg Artificial Tears (Artificial Tears) 0 ml OU QID [facility] Last Admin: 09/11/16 13:38 Dose: 1 drop Diphenhydramine HCl (Benadryl) 50 mg IVP DAILY PRN PRN Reason: Anaphylaxis Stop: 09/13/16 13:27 Last Admin: 09/11/16 12:15 Dose: 50 mg Epoetin Herve (Procrit) 10,000 unit IV TTS [facility] Last Admin: 09/09/16 11:05 Dose: 10,000 unit Heparin Sodium (Porcine) (Heparin) 3,400 units IVP TTS [facility] Last Admin: 09/11/16 16:06 Dose: Not Given Calcium Gluconate 2,000 mg/ (Sodium Chloride) 270 mls @ 100 mls/hr IVPB DAILY [facility] Stop: 09/13/16 16:01 Last Admin: 09/11/16 10:44 Dose: 100 mls/hr Propofol (Diprivan) 1,000 mg in 100 mls @ 2.16 mls/hr IV .Q24H PRN; Protocol; 5 MCG/KG/MIN PRN Reason: TITRATE PER MD ORDER Megestrol Acetate (Megace) 40 mg PO DAILY [facility] Last Admin: 09/11/16 09:23 Dose: 40 mg Methylprednisolone (Solu-Medrol) 100 mg IV DAILY PRN PRN Reason: Anaphylaxis Stop: 09/13/16 13:27 Last Admin: 09/11/16 12:15 Dose: 100 mg Prednisone (Prednisone Tab) 10 mg PO DAILY [facility] Last Admin: 09/11/16 09:23 Dose: 10 mg Saliva Substitute (First Magic Mouthwash) 5 ml PO QID [facility] Last Admin: 09/11/16 13:40 Dose: Not Given Valacyclovir HCl (Valtrex) 500 mg PO DAILY [facility] Last Admin: 09/11/16 09:23 Dose: 500 mg - Labs Labs: 09/11/16 08:31 09/11/16 08:31 PT 11.1 SECONDS (9.7-12.2) 09/08/16 07:22 INR 1.0 09/08/16 07:22 APTT 24 SECONDS (21-34) 09/08/16 07:22 Assessment and Plan (1) TTP (thrombotic thrombocytopenic purpura) Status: Acute - Assessment and Plan (Free Text) Assessment: Pt seen and examined, agree with residents note. Relapsed TTP on plasma exchange.
[2016-09-10] MEDS: DiphenhydrAMINE 50 mg/ml Inj IVP PRN (21:19)
--- NOTE | 2016-09-11 00:45 | PN ---
DATE: 09/10/2016 FOLLOWUP RENAL CONSULTATION LOCATION: The patient is located in room 557, bed A. REQUESTED BY: aKvon Ureña MD HISTORY OF PRESENT ILLNESS: Mrs. Denise Garcia is an 80 years old elderly female with a history of hypertension, rheumatoid arthritis, cardiomyopathy, TTP, renal failure on hemodialysis 3 times a week Thursday, , and Thursday, was admitted from the residential a few weeks ago with altered mental status and LifeVest leakage, and subsequently, the patient was found to have thrombocytopenia and recurrence of TTP and started on plasmapheresis, platelets went up to 178, now platelets are again slowly decreasing and the patient was restarted on plasmapheresis last night. The patient is not in any acute distress, denies any complaints at this time. PHYSICAL EXAMINATION: GENERAL: Mrs. Denise Garcia an 80 years old elderly female, moderately built, moderately nourished, not in distress. VITAL SIGNS: As follows: Blood pressure 162/76, pulse 82, respirations 20, temperature 98.4, saturation 98%, height 5 feet 2 inches, weight is 154 pounds. HEENT: Pupils normal and reactive to light and accommodation. Conjunctivae pink. Sclerae anicteric. Tongue is moist. CARDIOPULMONARY: Dickens at the fifth intercostal space, midclavicular line. S1 and S2 audible. No murmur or gallop. LUNGS: Symmetrical on both sides. Bilateral breath sounds present, clear on auscultation. ABDOMEN: Normal in appearance. Soft, tympanic. No guarding. No rigidity. No hepatosplenomegaly. CENTRAL NERVOUS SYSTEM: The patient is alert, awake and following commands. Sensory and motor system are grossly within limits. EXTREMITIES: No cyanosis. No clubbing. No edema. LABORATORY DATA: Include as follows: As of 09/10/2016, WBC 6.8, hemoglobin 8.6, hematocrit 27.2, platelets 100. Sodium 134, potassium 5.3, chloride 93, CO2 of 30, BUN 22, creatinine 3.7, glucose 123, calcium 7.8, AST 55, ALT 41, alkaline phosphatase 63, total protein 5.5, albumin 2.7. ASSESSMENT AND PLAN: In summary, Mrs. Denise Garcia is an 80 years old elderly female with hypertension, rheumatoid arthritis, cardiomyopathy, renal failure, recurrence of TTP third time and plasmapheresis. 1. Renal failure. Most likely acute on chronic, cannot rule out thrombotic microangiopathy secondary to TTP, The patient's family refused biopsy earlier on admission. Continue hemodialysis 3 times a week Thursday, , and Thursday. 2. Anemia secondary to renal failure , can't rule out secondary to recurrence of thrombocytopenic purpura. 3. Thrombocytopenia secondary to recurrence of thrombocytopenic purpura. 4. Cardiomyopathy. Continue on current medications, Benadryl and calcium gluconate during plasmapheresis and Megace 40 mg p.o. daily, prednisone 10 mg daily, Procrit 10,000 units 3 times a week, Solu-Medrol during plasmapheresis and valacyclovir 500 mg p.o. daily. Overall prognosis is guarded. Thank you for allowing me to participate in our patient's care. Horacio Graham MD MTDD
[2016-09-11 08:42] LABS: BASO # 0.1 K/uL (0.0-0.2); BASO % 1.2 % (0.0-2.0); EOS % 0.4 % (0.0-4.0); LYMPH # 0.7 K/uL (1.0-4.3); LYMPH % 8.4 % (20.0-40.0); MEAN CELL VOLUME 100.1 fL (81.0-99.0); MEAN CORPUSCULAR HEMOGLOBIN 32.1 pg (27.0-31.0); MEAN PLATELET VOLUME 10.7 fL (7.2-11.7); MONO # 0.2 K/uL (0.0-0.8); MONO % 2.5 % (0.0-10.0); NRBC % 0.5 % (0.0-2.0); PLATELET COUNT 104 K/uL (130-400); RED CELL DISTRIBUTION WIDTH 19.1 % (11.5-14.5)
[2016-09-11 08:47] LABS: ALB/GLOB RATIO 1.1 (1.0-2.1); BILIRUBIN,TOTAL 0.6 mg/dL (0.2-1.3); TOTAL PROTEIN 5.6 g/dL (6.3-8.3)
[2016-09-11 08:48] LABS: CALCIUM 8.1 mg/dl (8.6-10.4)
[2016-09-11 08:55] LABS: POTASSIUM 4.4 mmol/L (3.6-5.2)
[2016-09-11 09:05] LABS: TOTAL CELLS COUNTED 100
[2016-09-11 09:06] LABS: BASOPHIL 1 % (0-2); NEUTROPHIL 88 % (50-75)
[2016-09-11] MEDS: Mag&Al/Simet/Diphen/Lido 237 ML KIT PO SCH ×4 (09:24→22:30)
--- NOTE | 2016-09-11 12:10 | CP.PCM.PN ---
<Babar Holm - Last Filed: 09/11/16 12:07> Subjective - Date & Time of Evaluation Date of Evaluation: 09/11/16 Time of Evaluation: 11:00 - Subjective Subjective: PGY3 on heme/onc Dr. Montanez service: Pt seen and examined at bedside this morning. No acute events overnight. No change in clinical status. Not oriented. Plasmapheresis today. Objective - Vital Signs/Intake and Output Vital Signs (last 24 hours): Temp Pulse Resp BP Pulse Ox 98.2 F 82 18 172/80 H 97 09/11/16 07:25 09/11/16 07:25 09/11/16 07:25 09/11/16 07:25 09/11/16 07:25 - Medications Medications: Current Medications Acetaminophen (Tylenol 325mg Tab) 650 mg PO Q6 PRN PRN Reason: Fever >100.4 F Acetaminophen (Tylenol 650 Mg Supp) 650 mg [place] DAILY PRN PRN Reason: Anaphylaxis Stop: 09/13/16 13:27 Last Admin: 09/11/16 10:53 Dose: 650 mg Artificial Tears (Artificial Tears) 0 ml OU QID [facility] Last Admin: 09/10/16 21:29 Dose: 2 drop Diphenhydramine HCl (Benadryl) 50 mg IVP DAILY PRN PRN Reason: Anaphylaxis Stop: 09/13/16 13:27 Last Admin: 09/10/16 21:19 Dose: 50 mg Epoetin Herve (Procrit) 10,000 unit IV TTS [facility] Last Admin: 09/09/16 11:05 Dose: 10,000 unit Heparin Sodium (Porcine) (Heparin) 3,400 units IVP TTS [facility] Last Admin: 09/09/16 11:20 Dose: 3,400 units Calcium Gluconate 2,000 mg/ (Sodium Chloride) 270 mls @ 100 mls/hr IVPB DAILY [facility] Stop: 09/13/16 16:01 Last Admin: 09/11/16 10:44 Dose: 100 mls/hr Megestrol Acetate (Megace) 40 mg PO DAILY [facility] Last Admin: 09/11/16 09:23 Dose: 40 mg Methylprednisolone (Solu-Medrol) 100 mg IV DAILY PRN PRN Reason: Anaphylaxis Stop: 09/13/16 13:27 Last Admin: 09/10/16 21:21 Dose: 100 mg Prednisone (Prednisone Tab) 10 mg PO DAILY [facility] Last Admin: 09/11/16 09:23 Dose: 10 mg Saliva Substitute (First Magic Mouthwash) 5 ml PO QID [facility] Last Admin: 09/11/16 09:24 Dose: 5 ml Valacyclovir HCl (Valtrex) 500 mg PO DAILY [facility] Last Admin: 09/11/16 09:23 Dose: 500 mg - Labs Labs: 09/11/16 08:31 09/11/16 08:31 PT 11.1 SECONDS (9.7-12.2) 09/08/16 07:22 INR 1.0 09/08/16 07:22 APTT 24 SECONDS (21-34) 09/08/16 07:22 - Constitutional Appears: Non-toxic, No Acute Distress - Head Exam Head Exam: ATRAUMATIC - Eye Exam Eye Exam: Normal appearance - Respiratory Exam Respiratory Exam: NORMAL BREATHING PATTERN - Cardiovascular Exam Cardiovascular Exam: REGULAR RHYTHM, +S1, +S2 - GI/Abdominal Exam GI & Abdominal Exam: Soft, Normal Bowel Sounds - Extremities Exam Extremities Exam: absent: Pedal Edema - Neurological Exam Neurological Exam: Altered, Awake Assessment and Plan - Assessment and Plan (Free Text) Assessment: (1) TTP (thrombotic thrombocytopenic purpura) Assessment & Plan: Relapsed, currently on plasmapheresis, 3rd today. Need total of 4 days with 3500cc FFP. Continue steroids. Will consider increasing plasma volume exchange as per attending. Continue monitoring platelet. Status: Acute (2) Renal failure Assessment & Plan: Acute on chronic Continue HD TTS as per nephro. Status: Acute <Lazaro Montanez - Last Filed: 09/11/16 17:19> Objective - Vital Signs/Intake and Output Vital Signs (last 24 hours): Temp Pulse Resp BP Pulse Ox 97.7 F 139 H 22 200/104 H 97 09/11/16 16:00 09/11/16 16:00 09/11/16 16:00 09/11/16 16:00 09/11/16 16:00 Intake and Output: 09/11/16 09/11/16 06:59 18:59 Intake Total 10 Balance 10 - Medications Medications: Current Medications Acetaminophen (Tylenol 325mg Tab) 650 mg PO Q6 PRN PRN Reason: Fever >100.4 F Acetaminophen (Tylenol 650 Mg Supp) 650 mg [place] DAILY PRN PRN Reason: Anaphylaxis Stop: 09/13/16 13:27 Last Admin: 09/11/16 10:53 Dose: 650 mg Artificial Tears (Artificial Tears) 0 ml OU QID [facility] Last Admin: 09/11/16 13:38 Dose: 1 drop Diphenhydramine HCl (Benadryl) 50 mg IVP DAILY PRN PRN Reason: Anaphylaxis Stop: 09/13/16 13:27 Last Admin: 09/11/16 12:15 Dose: 50 mg Epoetin Herve (Procrit) 10,000 unit IV TTS [facility] Last Admin: 09/09/16 11:05 Dose: 10,000 unit Heparin Sodium (Porcine) (Heparin) 3,400 units IVP TTS [facility] Last Admin: 09/11/16 16:06 Dose: Not Given Calcium Gluconate 2,000 mg/ (Sodium Chloride) 270 mls @ 100 mls/hr IVPB DAILY [facility] Stop: 09/13/16 16:01 Last Admin: 09/11/16 10:44 Dose: 100 mls/hr Propofol (Diprivan) 1,000 mg in 100 mls @ 2.16 mls/hr IV .Q24H PRN; Protocol; 5 MCG/KG/MIN PRN Reason: TITRATE PER MD ORDER Megestrol Acetate (Megace) 40 mg PO DAILY [facility] Last Admin: 09/11/16 09:23 Dose: 40 mg Methylprednisolone (Solu-Medrol) 100 mg IV DAILY PRN PRN Reason: Anaphylaxis Stop: 09/13/16 13:27 Last Admin: 09/11/16 12:15 Dose: 100 mg Prednisone (Prednisone Tab) 10 mg PO DAILY [facility] Last Admin: 09/11/16 09:23 Dose: 10 mg Saliva Substitute (First Magic Mouthwash) 5 ml PO QID [facility] Last Admin: 09/11/16 13:40 Dose: Not Given Valacyclovir HCl (Valtrex) 500 mg PO DAILY [facility] Last Admin: 09/11/16 09:23 Dose: 500 mg - Labs Labs: 09/11/16 08:31 09/11/16 08:31 PT 11.1 SECONDS (9.7-12.2) 09/08/16 07:22 INR 1.0 09/08/16 07:22 APTT 24 SECONDS (21-34) 09/08/16 07:22 Assessment and Plan (1) TTP (thrombotic thrombocytopenic purpura) Status: Acute - Assessment and Plan (Free Text) Assessment: Pt seen and examined, agree with residents note with addition of elevated BP and hypoxia requiring intubation and transfer to ICU. Pt currently undergoing dialysis for volume overload likely related to plasma exchange. Plasma exchange on hold today and will resume tomorrow. Will need coordination to dialyze post plasma exchange.
[2016-09-11] MEDS: DiphenhydrAMINE 50 mg/ml Inj IVP PRN (12:15)
[2016-09-11] MEDS: Aritificial Tears (15ml) OU SCH ×3 (13:38→22:29)
[2016-09-11] MEDS ORDERED: Propofol 10 mg/ml 1,000 MG/100 ML VIAL IV PRN ×2 (15:21→16:17)
--- NOTE | 2016-09-11 15:21 | PCM.RRTMUL ---
[facility] DIRECTOR Nurses Assessment - Situation [facility] DIRECTOR Responder Arrival Time:: 20:55 - Ventilator Settings Ventilator Respiratory Rate Setting:: 14 Ventilator Tidal Volume Setting:: 450 - Vital Signs Blood Pressure:: 172/80 Pulse Rate:: 82 Respiratory Rate:: 18 Temperature:: 98.2 F - Constitutional Appears: Toxic, In Acute Distress - Head Head Exam: ATRAUMATIC, NORMAL INSPECTION - Eyes Eye Exam: EOMI - Respiratory Exam Respiratory Exam: Accessory Muscle Use, Decreased Breath Sounds, Rales, Respiratory Distress. absent: Clear to Ausculation Bilateral - Cardiovascular Exam Cardiovascular Exam: Tachycardia - GI/Abdominal Exam GI & Abdominal Exam: Soft - Neurological Exam Neurological Exam: Awake. absent: Alert, Oriented x3 Plan - B. Assessment of Findings&Treatment Plan Rapid Response called for desaturation down in the 60% at 14:51. Patient s/p plasmapheresis 12 units this morning and is due for dialysis now. EF 15-20%. Patient with TTP and ESRD Vitals 119 HR, 98.2 degrees, 206/110 60% O2 sat. O2 sat increased to 80% on venti mask. BP 220/118. Patient with diffuse crackles decreased lung sounds. Placed on BIPAP. CXR stat showed acute pulmonary edema. No lasix given, patient is on dialysis and does not make urine. 125 mg Solumedrol IVP given 10 mg IV hydralazine given for elevated BP. ICU Dr. Sims contacted. Accepted to ICU. Anesthesia arrived, Dr. Moise and intubated patient. Patient transferred to ICU immediately and propofol drip started. Dr. Tim Ureña was notified.
[2016-09-11] MEDS ORDERED: Etomidate 20 mg/10ml Inj IV ONE (15:22)
[2016-09-11] MEDS ORDERED: Rocuronium 10 mg/ml (5 ml) IV ONE (15:22)
--- NOTE | 2016-09-11 15:29 | CP.PCM.PN ---
Subjective - Date & Time of Evaluation Date of Evaluation: 09/11/16 Time of Evaluation: 10:20 - Subjective Subjective: clinically same Objective - Vital Signs/Intake and Output Vital Signs (last 24 hours): Temp Pulse Resp BP Pulse Ox 98.2 F 82 18 172/80 H 97 09/11/16 15:25 09/11/16 15:25 09/11/16 15:25 09/11/16 15:25 09/11/16 07:25 - Medications Medications: Current Medications Acetaminophen (Tylenol 325mg Tab) 650 mg PO Q6 PRN PRN Reason: Fever >100.4 F Acetaminophen (Tylenol 650 Mg Supp) 650 mg [place] DAILY PRN PRN Reason: Anaphylaxis Stop: 09/13/16 13:27 Last Admin: 09/11/16 10:53 Dose: 650 mg Artificial Tears (Artificial Tears) 0 ml OU QID [facility] Last Admin: 09/11/16 13:38 Dose: 1 drop Diphenhydramine HCl (Benadryl) 50 mg IVP DAILY PRN PRN Reason: Anaphylaxis Stop: 09/13/16 13:27 Last Admin: 09/11/16 12:15 Dose: 50 mg Epoetin Herve (Procrit) 10,000 unit IV TTS [facility] Last Admin: 09/09/16 11:05 Dose: 10,000 unit Etomidate (Amidate) 8 mg IV ONCE ONE Stop: 09/11/16 15:23 Heparin Sodium (Porcine) (Heparin) 3,400 units IVP TTS [facility] Last Admin: 09/09/16 11:20 Dose: 3,400 units Calcium Gluconate 2,000 mg/ (Sodium Chloride) 270 mls @ 100 mls/hr IVPB DAILY [facility] Stop: 09/13/16 16:01 Last Admin: 09/11/16 10:44 Dose: 100 mls/hr Propofol (Diprivan) 1,000 mg in 100 mls @ 0.927 mls/hr IV .Q24H PRN; Protocol; 5 MCG/KG/MIN PRN Reason: TITRATE PER MD ORDER Megestrol Acetate (Megace) 40 mg PO DAILY [facility] Last Admin: 09/11/16 09:23 Dose: 40 mg Methylprednisolone (Solu-Medrol) 100 mg IV DAILY PRN PRN Reason: Anaphylaxis Stop: 09/13/16 13:27 Last Admin: 09/11/16 12:15 Dose: 100 mg Prednisone (Prednisone Tab) 10 mg PO DAILY [facility] Last Admin: 09/11/16 09:23 Dose: 10 mg Rocuronium [place] (Zemuron) 50 mg IV ONCE ONE Stop: 09/11/16 15:23 Saliva Substitute (First Magic Mouthwash) 5 ml PO QID [facility] Last Admin: 09/11/16 13:40 Dose: Not Given Valacyclovir HCl (Valtrex) 500 mg PO DAILY [facility] Last Admin: 09/11/16 09:23 Dose: 500 mg - Labs Labs: 09/11/16 08:31 09/11/16 08:31 PT 11.1 SECONDS (9.7-12.2) 09/08/16 07:22 INR 1.0 09/08/16 07:22 APTT 24 SECONDS (21-34) 09/08/16 07:22 - Constitutional Appears: Well - Head Exam Head Exam: ATRAUMATIC, NORMAL INSPECTION, NORMOCEPHALIC - Eye Exam Eye Exam: EOMI, Normal appearance, PERRL Pupil Exam: NORMAL ACCOMODATION, PERRL - ENT Exam ENT Exam: Mucous Membranes Moist, Normal Exam - Neck Exam Neck Exam: Full ROM, Normal Inspection. absent: Lymphadenopathy - Respiratory Exam Respiratory Exam: Decreased Breath Sounds - Cardiovascular Exam Cardiovascular Exam: REGULAR RHYTHM, +S1, +S2 - GI/Abdominal Exam GI & Abdominal Exam: Soft, Diminished Bowel Sounds - Rectal Exam Rectal Exam: Deferred Assessment and Plan (1) Cardiac dysrhythmia Status: Acute (2) ESRD (end stage renal disease) on dialysis Status: Acute (3) MARCO (acute kidney injury) Status: Acute (4) Acute respiratory failure requiring reintubation Status: Acute (5) Arthritis Status: Acute (6) CHF (congestive heart failure) Status: Acute (7) Dehydration Status: Acute (8) Dehydration Status: Acute (9) Diverticulosis Status: Acute (10) Elevated CEA Status: Acute (11) Hypertension Status: Acute (12) Inguinal lymphadenopathy Status: Acute (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
--- NOTE | 2016-09-11 15:43 | PCM.ANES ---
Anesthesia Emergent Intubation - Consult Reason for Consult:: Respir failure - Intubation Attempts Previous Number of Intubation Attempts:: 0 By:: 1 attemt - Pre-Intubation Vital Signs Blood Pressure: 187/88 Heart Rate: 132 O2 Sat: 94 Oxygen Delivery Method: Bipap Level Of Consciousness: Unable to follow directions Intubation Meds Given: Etomidate - Airway Management PreOxygenation: 100 Rapid Sequence: Yes Cricoid Pressure: Yes Possible Aspiration: No - Method of Intubation Intubation Method: Oral ETT ETT Size: 7.5 Lipline@: 21 cm Easy: Yes Atramatic: Yes - Intubation Devices Eloisa Blade Size Used: 4 Adebayo Forcepts Used: No Hope Scope Used: No Fiber Optic Scope: No - Placement Confirmation Breath Sounds Present & Equal Bilaterally: Yes Gurgling Sounds Not Audible at Epigastrum: No Positive EtCO2: Yes Portable CXR: Yes Recommendations: Ventilator, ABG - Post-Intubation Vital Signs Blood Pressure: 180/78 Heart Rate: 112 O2 Sat: 100 FIO2: 100
--- NOTE | 2016-09-11 16:24 | RAD ---
Chest, one view Indication: Desaturation Comparison: Chest x-ray performed 08/16/16 Findings: Left-sided central venous catheter extends expected location of the SVC. Cardiomegaly. Numerous external wires, leads, and devices precluding adequate evaluation of the underlying parenchyma. Moderate to severe edema or infection. Probable small pleural effusions. No definite pneumothorax. Degenerative changes of the spine. Impression: Left-sided central venous catheter extends expected location of the SVC. Cardiomegaly. Moderate to severe edema or infection. Probable small bilateral pleural effusions.
--- NOTE | 2016-09-11 17:28 | CP.PCM.PN ---
Subjective - Date & Time of Evaluation Date of Evaluation: 09/11/16 Time of Evaluation: 17:28 - Subjective Subjective: pt seen and examined, follow up consult is dictated #[id number] for hd today Objective - Vital Signs/Intake and Output Vital Signs (last 24 hours): Temp Pulse Resp BP Pulse Ox 97.7 F 139 H 22 200/104 H 97 09/11/16 16:00 09/11/16 16:00 09/11/16 16:00 09/11/16 16:00 09/11/16 16:00 Intake and Output: 09/11/16 09/11/16 06:59 18:59 Intake Total 10 Balance 10 - Medications Medications: Current Medications Acetaminophen (Tylenol 325mg Tab) 650 mg PO Q6 PRN PRN Reason: Fever >100.4 F Acetaminophen (Tylenol 650 Mg Supp) 650 mg [place] DAILY PRN PRN Reason: Anaphylaxis Stop: 09/13/16 13:27 Last Admin: 09/11/16 10:53 Dose: 650 mg Artificial Tears (Artificial Tears) 0 ml OU QID [facility] Last Admin: 09/11/16 13:38 Dose: 1 drop Diphenhydramine HCl (Benadryl) 50 mg IVP DAILY PRN PRN Reason: Anaphylaxis Stop: 09/13/16 13:27 Last Admin: 09/11/16 12:15 Dose: 50 mg Epoetin Herve (Procrit) 10,000 unit IV TTS [facility] Last Admin: 09/09/16 11:05 Dose: 10,000 unit Heparin Sodium (Porcine) (Heparin) 3,400 units IVP TTS [facility] Last Admin: 09/11/16 16:06 Dose: Not Given Calcium Gluconate 2,000 mg/ (Sodium Chloride) 270 mls @ 100 mls/hr IVPB DAILY [facility] Stop: 09/13/16 16:01 Last Admin: 09/11/16 10:44 Dose: 100 mls/hr Propofol (Diprivan) 1,000 mg in 100 mls @ 2.16 mls/hr IV .Q24H PRN; Protocol; 5 MCG/KG/MIN PRN Reason: TITRATE PER MD ORDER Megestrol Acetate (Megace) 40 mg PO DAILY [facility] Last Admin: 09/11/16 09:23 Dose: 40 mg Methylprednisolone (Solu-Medrol) 100 mg IV DAILY PRN PRN Reason: Anaphylaxis Stop: 09/13/16 13:27 Last Admin: 09/11/16 12:15 Dose: 100 mg Prednisone (Prednisone Tab) 10 mg PO DAILY [facility] Last Admin: 09/11/16 09:23 Dose: 10 mg Saliva Substitute (First Magic Mouthwash) 5 ml PO QID [facility] Last Admin: 09/11/16 13:40 Dose: Not Given Valacyclovir HCl (Valtrex) 500 mg PO DAILY [facility] Last Admin: 09/11/16 09:23 Dose: 500 mg - Labs Labs: 09/11/16 08:31 09/11/16 08:31 PT 11.1 SECONDS (9.7-12.2) 09/08/16 07:22 INR 1.0 09/08/16 07:22 APTT 24 SECONDS (21-34) 09/08/16 07:22
--- NOTE | 2016-09-11 17:29 | CP.PCM.CON ---
History of Present Illness - History of Present Illness History of Present Illness: 80-year-old female with past medical history of systolic CHF (EF-10%). 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 Now in recurrent respiratory failure from flash pulmonary edema s/p plasma exchange. Intubated and brought to ICU for dialysis to remove fluid. Review of Systems - Review of Systems Systems not reviewed;Unavailable: Intubated Past Patient History - Past Medical History & Family History Past Medical History?: Yes - Past Social History Smoking Status: Never Smoked - CARDIAC Hx Hypertension: Yes - PULMONARY Hx Respiratory Disorders: No - NEUROLOGICAL Hx Neurological Disorder: Yes Hx Dementia: Yes - HEENT Hx HEENT Problems: Yes - RENAL Date of Last Dialysis Treatment: 08/14/16 - ENDOCRINE/METABOLIC Hx Diabetes Mellitus Type 2: Yes - HEMATOLOGICAL/ONCOLOGICAL Hx Anemia: Yes - INTEGUMENTARY Hx Dermatological Problems: Yes (generalized pruritus) - MUSCULOSKELETAL/RHEUMATOLOGICAL Hx Falls: No - GASTROINTESTINAL Hx Gastrointestinal Disorders: No - GENITOURINARY/GYNECOLOGICAL Hx Genitourinary Disorders: No - PSYCHIATRIC Hx Substance Use: No - SURGICAL HISTORY Hx Surgeries: Yes Other/Comment: 1993 THYROID SX - ANESTHESIA Hx Anesthesia: Yes Hx Anesthesia Reactions: No Hx Malignant Hyperthermia: No Meds Allergies/Adverse Reactions: Allergies Allergy/AdvReac Type Severity Reaction Status Date / Time No Known Allergies Allergy Verified 08/16/16 01:13 - Medications Medications: Current Medications Acetaminophen (Tylenol 325mg Tab) 650 mg PO Q6 PRN PRN Reason: Fever >100.4 F Acetaminophen (Tylenol 650 Mg Supp) 650 mg [place] DAILY PRN PRN Reason: Anaphylaxis Stop: 09/13/16 13:27 Last Admin: 09/11/16 10:53 Dose: 650 mg Artificial Tears (Artificial Tears) 0 ml OU QID [facility] Last Admin: 09/11/16 13:38 Dose: 1 drop Diphenhydramine HCl (Benadryl) 50 mg IVP DAILY PRN PRN Reason: Anaphylaxis Stop: 09/13/16 13:27 Last Admin: 09/11/16 12:15 Dose: 50 mg Epoetin Herve (Procrit) 10,000 unit IV TTS [facility] Last Admin: 09/09/16 11:05 Dose: 10,000 unit Heparin Sodium (Porcine) (Heparin) 3,400 units IVP TTS [facility] Last Admin: 09/11/16 16:06 Dose: Not Given Calcium Gluconate 2,000 mg/ (Sodium Chloride) 270 mls @ 100 mls/hr IVPB DAILY [facility] Stop: 09/13/16 16:01 Last Admin: 09/11/16 10:44 Dose: 100 mls/hr Propofol (Diprivan) 1,000 mg in 100 mls @ 2.16 mls/hr IV .Q24H PRN; Protocol; 5 MCG/KG/MIN PRN Reason: TITRATE PER MD ORDER Megestrol Acetate (Megace) 40 mg PO DAILY [facility] Last Admin: 09/11/16 09:23 Dose: 40 mg Methylprednisolone (Solu-Medrol) 100 mg IV DAILY PRN PRN Reason: Anaphylaxis Stop: 09/13/16 13:27 Last Admin: 09/11/16 12:15 Dose: 100 mg Prednisone (Prednisone Tab) 10 mg PO DAILY [facility] Last Admin: 09/11/16 09:23 Dose: 10 mg Saliva Substitute (First Magic Mouthwash) 5 ml PO QID [facility] Last Admin: 09/11/16 13:40 Dose: Not Given Valacyclovir HCl (Valtrex) 500 mg PO DAILY [facility] Last Admin: 09/11/16 09:23 Dose: 500 mg Physical Exam - Head Exam Head Exam: ATRAUMATIC, NORMAL INSPECTION, NORMOCEPHALIC - Eye Exam Eye Exam: Normal appearance - ENT Exam ENT Exam: Mucous Membranes Moist, Normal Exam - Respiratory Exam Respiratory Exam: Rales, Rhonchi - Cardiovascular Exam Cardiovascular Exam: Tachycardia - GI/Abdominal Exam GI & Abdominal Exam: Normal Bowel Sounds, Soft. absent: Tenderness - Neurological Exam Additional comments: sedated Results - Vital Signs Recent Vital Signs: Last Vital Signs Temp 97.7 F 09/11/16 16:00 Pulse 139 H 09/11/16 16:00 Resp 22 09/11/16 16:00 BP 200/104 H 09/11/16 16:00 Pulse Ox 97 09/11/16 16:00 - Labs Result Diagrams: 09/11/16 08:31 09/11/16 08:31 Labs: Laboratory Results - last 24 hr 09/10/16 09/11/16 09/11/16 21:23 07:43 08:31 WBC 8.0 RBC 2.50 L Hgb 8.0 L Hct 25.0 L MCV 100.1 H MCH 32.1 H MCHC 32.0 L RDW 19.1 H Plt Count 104 L MPV 10.7 Neut % (Auto) 87.5 H Lymph % (Auto) 8.4 L [place] % (Auto) 2.5 Eos % (Auto) 0.4 Baso % (Auto) 1.2 Neut # 7.0 Lymph # 0.7 L [place] # 0.2 Eos # 0.0 Baso # 0.1 Neutrophils % (Manual) 88 H Lymphocytes % (Manual) 8 L Monocytes % (Manual) 3 Basophils % (Manual) 1 Platelet Estimate Slightly decreased L Polychromasia Slight Hypochromasia (manual) Moderate Poikilocytosis (manual Slight Anisocytosis (manual) Slight Tear Drop Cells Slight Ovalocytes Slight Sodium Potassium Chloride Carbon Dioxide Anion Gap BUN Creatinine Est GFR ( Amer) Est GFR (Non-Af Amer) POC Glucose (mg/dL) 225 H 163 H Random Glucose Calcium Total Bilirubin AST ALT Alkaline Phosphatase Total Protein Albumin Globulin Albumin/Globulin Ratio 09/11/16 09/11/16 09/11/16 08:31 11:28 14:52 WBC RBC Hgb Hct MCV MCH MCHC RDW Plt Count MPV Neut % (Auto) Lymph % (Auto) [place] % (Auto) Eos % (Auto) Baso % (Auto) Neut # Lymph # [place] # Eos # Baso # Neutrophils % (Manual) Lymphocytes % (Manual) Monocytes % (Manual) Basophils % (Manual) Platelet Estimate Polychromasia Hypochromasia (manual) Poikilocytosis (manual Anisocytosis (manual) Tear Drop Cells Ovalocytes Sodium 135 Potassium 4.4 Chloride 91 L Carbon Dioxide 32 H Anion Gap 16 BUN 27 H Creatinine 4.1 H Est GFR ( Amer) 13 Est GFR (Non-Af Amer) 10 POC Glucose (mg/dL) 198 H 243 H Random Glucose 152 H Calcium 8.1 L Total Bilirubin 0.6 AST 41 H D ALT 51 Alkaline Phosphatase 66 Total Protein 5.6 L Albumin 2.9 L Globulin 2.7 Albumin/Globulin Ratio 1.1 Assessment & Plan (1) Pulmonary edema Assessment and Plan: 80-year-old female with past medical history of systolic CHF (EF-10%). 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 Now in recurrent respiratory failure from flash pulmonary edema s/p plasma exchange. Neuro: Sedated with propofol drip. Pulm: Acute respiratory failure secondary to pulmonary edema status post plasma exchange. Intubated on vent. Will dialyze to remove fluid. CV: Hemodynamically stable. Hypertensive, the pressure will drop with dialysis. Hem: Thrombocytopenia from TTP, patient getting another round of plasma exchange. Patient had 1 exchange done yesterday, with 3-4 more scheduled. Continue methylprednisolone 100 mg IV daily. Anemia of chronic disease, continue Procrit. Renal: End-stage renal disease now on chronic dialysis, T//Sat. getting dialyzed now for pulmonary edema. Endo: No acute issues GI: Nothing by mouth, will start tube feeds, renal formula. ID: No acute issues. DVT proph - heparin subcutaneous GI proph - Protonix Code status - full code Critical Care Time spent 35 minutes Multi-disciplinary rounds were performed with house staff, nursing, speech therapy, respiratory therapy, pharmacy and nutrition with integrated input from the primary team/attending and other consulting services. The documented time is cumulative and includes review of patient data/exams/labs/chart review and examination of the patient on rounds and throughout the day; time is exclusive of any procedures or teaching time. Status: Acute
--- NOTE | 2016-09-11 18:14 | RAD ---
Chest, one view Indication: Intubated Comparison: Chest x-ray performed earlier the same day Findings: Interval addition of endotracheal tube which appears to terminate above the nat[place] but exact distance cannot be adequately assessed due to radiopaque device obscuring evaluation of the natalia. Left-sided central venous catheter extends expected location of the SVC. Cardiomegaly. Numerous external wires, leads, and devices precluding adequate evaluation of the underlying parenchyma. Moderate to severe edema or infection. No significant pleural effusion. No definite pneumothorax. Degenerative changes of the spine. Impression: Interval addition of endotracheal tube which appears to terminate above the nat[place] but exact distance cannot be adequately assessed due to radiopaque device obscuring evaluation of the natalia. Left-sided central venous catheter extends expected location of the SVC. Cardiomegaly. Moderate to severe edema or infection. Probable small bilateral pleural effusions.
[2016-09-11] MEDS: Epoetin Alfa 10,000 unit/ml Dialysis IV SCH (20:11)
--- NOTE | 2016-09-11 20:29 | CON ---
FOLLOWUP RENAL CONSULTATION DATE: 09/11/2016 The patient is located in ICU, bed 1. REQUESTED BY: Kavon Ureña MD REASON FOR FOLLOWUP: Respiratory failure status post intubation for acute resp. failure and continuation of the hemodialysis. HISTORY OF PRESENT ILLNESS: Denise Garcia is an 80 years old elderly female with history of hypertension, rheumatoid arthritis, cardiomyopathy, CHF status post intubation and extubation about a month ago, TTP recurrence, started on plasmapheresis about 3 days ago. The patient underwent plasmapheresis this afternoon and subsequently, the patient developed respiratory failure and shortness of breath requiring intubation. The patient is tachycardic. Heart rate about 130-135 and the patient is on FiO2 100 %, tv 500, PEEP of 10. The patient is also under sedation. PHYSICAL EXAMINATION: GENERAL: Mrs. Denise Garcia is an 80 years old elderly female, moderately built, moderately nourished, on ventilator and FiO2 100%. VITAL SIGNS: Blood pressure 130/81, pulse 132, respirations 20, temperature 99.4, saturation 97%. HEENT: Pupils normal and reactive to light and accommodation. Conjunctivae pink. Sclerae anicteric. On ventilator. CARDIOPULMONARY: Kincaid at the fifth intercostal space midclavicular line. S1 and S2 audible. No murmur or gallop. LUNGS: Symmetrical on both sides. Bilateral crackles present. ABDOMEN: Normal in appearance, soft, tympanic. No guarding. There is no hepatosplenomegaly. CENTRAL NERVOUS SYSTEM: The patient is on ventilator under sedation. EXTREMITIES: No cyanosis. No clubbing. Trace edema in both lower extremities. CURRENT MEDICATIONS: Include as follows: Artificial tears, propofol drip, heparin 3400 units in the catheter post dialysis and subcutaneous heparin 5000 every 12 hours and Megace 40 mg p.o. daily, Epogen 10,000 units three times a week, Protonix 40 mg daily, Solu-Medrol 100 mg IV daily, Tylenol and valacyclovir 500 mg p.o. daily. LABORATORY DATA: As of 09/11/2016, WBC 8, hemoglobin 8, hematocrit 25, platelets 104, neutrophil 18, lymph 8, monos 3, eosinophil 1. Sodium 135, potassium 4.4, chloride 91, CO2 of 32, BUN 27, creatinine 4.1, glucose 152, calcium 8.1, total bilirubin 0.6, AST 41, ALT 51, alkaline phosphatase 66, total protein 5.6, albumin 2.9. Catheter exit site wound culture positive for staph coag negative. ASSESSMENT: In summary, Mrs. Denise Garcia is an 80 years old elderly female with a history of hypertension, rheumatoid arthritis, thrombotic thrombocytopenic purpura, cardiomyopathy, renal failure, on hemodialysis three times a week, on plasmapheresis, started 3 days ago. 1. Renal failure. Most likely acute on chronic kidney disease, cannot rule out thrombotic microangiopathy secondary to thrombotic thrombocytopenic purpura. 2. Hypertension. Blood pressure is high. Continue to monitor blood pressure and consider to add Norvasc 2.5 or 5 mg and also considered to add metoprolol 25 mg .b.i.d. for tachycardia and the hypertension. 3. Anemia secondary to renal failure, cannot rule out secondary to thrombotic thrombocytopenic purpura. 4. 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 The patient is scheduled for hemodialysis today and the patient is in poorly function catheter, TPA was placed and waiting to drain and to initiate hemodialysis. Ultrafiltration goal is about 2.5 liters and the patient can tolerate. Overall prognosis is guarded. We will follow with you. Thank you for allowing me to participate in our patient's care. Horacio Graham MD MTDD
[2016-09-11 21:34] LABS: ABG ALLEN TEST POS; ABG MECHANICAL RATE 14; ARTERIAL BLOOD GAS MODE A/C; ARTERIAL BLOOD HGB O2 SAT 96.8 % (95.0-98.0); ATERIAL BLOOD GAS PEEP 5; CARBOXYHEMOGLOBIN 1.9 % (0.5-1.5); DRAW SITE RRA; HHB 0.2 % (0.0-5.0); METHEMOGLOBIN 1.1 % (0.0-3.0)
[2016-09-12 06:36] LABS: ABG ALLEN TEST POS; ABG MECHANICAL RATE 14; ARTERIAL BLOOD GAS MODE PRVC; ARTERIAL BLOOD HGB O2 SAT 95.7 % (95.0-98.0); ATERIAL BLOOD GAS PEEP 5; CARBOXYHEMOGLOBIN 1.9 % (0.5-1.5); DRAW SITE L RAD; HHB 1.4 % (0.0-5.0)
[2016-09-12 06:39] LABS: BASO # 0.1 K/uL (0.0-0.2); BASO % 0.5 % (0.0-2.0); HEMATOCRIT 23.4 % (34.0-47.0); LYMPH # 0.6 K/uL (1.0-4.3); LYMPH % 5.8 % (20.0-40.0); MEAN CELL VOLUME 101.1 fL (81.0-99.0); MEAN CORPUSCULAR HGB CONC 30.7 g/dL (33.0-37.0); MEAN PLATELET VOLUME 11.1 fL (7.2-11.7); MONO # 0.5 K/uL (0.0-0.8); MONO % 4.9 % (0.0-10.0); NRBC % 0.1 % (0.0-2.0); PLATELET COUNT 83 K/uL (130-400); RED CELL DISTRIBUTION WIDTH 18.7 % (11.5-14.5)
[2016-09-12 06:41] LABS: MAGNESIUM 1.9 mg/dL (1.6-2.3); PHOSPHOROUS 4.7 mg/dL (2.5-4.5)
[2016-09-12 07:51] LABS: POTASSIUM 3.9 mmol/L (3.6-5.2)
[2016-09-12 07:53] LABS: ALB/GLOB RATIO 1.1 (1.0-2.1); BILIRUBIN,TOTAL 0.5 mg/dL (0.2-1.3); TOTAL PROTEIN 5.3 g/dL (6.3-8.3)
[2016-09-12 07:54] LABS: CALCIUM 7.9 mg/dl (8.6-10.4)
[2016-09-12] MEDS: Mag&Al/Simet/Diphen/Lido 237 ML KIT PO SCH (09:07)
[2016-09-12] MEDS: Aritificial Tears (15ml) OU SCH ×4 (09:08→21:58)
--- NOTE | 2016-09-12 09:44 | RAD ---
PROCEDURE: CHEST RADIOGRAPH, 1 VIEW HISTORY: VENTED COMPARISON: Prior portable radiograph 09/11/2016. FINDINGS: LUNGS: Endotracheal tube and left sided tunnel central venous catheter unchanged in position pulmonary venous congestion pattern appears diminished to the left and unchanged at the right with underlying infiltrate not seen in the right perihilar and basilar regions. On no large pleural effusion identified. Small bilateral pleural effusions are not excluded however. No pneumothorax bilaterally. PLEURA: As above CARDIOVASCULAR: Stable mild cardiomegaly. OSSEOUS STRUCTURES: No significant abnormalities. VISUALIZED UPPER ABDOMEN: Normal. OTHER FINDINGS: None. IMPRESSION: Improving CHF with underlying infiltrate or atelectasis not excluded the right perihilar/ basilar regions. External pacers/telemetry hardware obscures this exam.
[2016-09-12 10:14] LABS: NEUTROPHIL 89 % (50-75); TOTAL CELLS COUNTED 100
[2016-09-12 10:15] LABS: LARGE PLATELETS PRESENT
[2016-09-12] MEDS: Pantoprazole 40 mg Susp UD PO SCH (10:22)
--- NOTE | 2016-09-12 14:27 | CP.PCM.PN ---
Subjective - Date & Time of Evaluation Date of Evaluation: 09/12/16 Time of Evaluation: 10:00 - Subjective Subjective: PGY3 on heme/onc Dr. Montanez service: Pt seen and examined at bedside this morning. Intubated and sedated on mechanical vent. Objective - Vital Signs/Intake and Output Vital Signs (last 24 hours): Temp Pulse Resp BP Pulse Ox 98.6 F 76 14 159/83 H 98 09/12/16 12:00 09/12/16 12:00 09/12/16 12:00 09/12/16 12:00 09/12/16 12:00 Intake and Output: 09/12/16 09/12/16 06:59 18:59 Intake Total 51.6 105.6 Output Total 0 0 Balance 51.6 105.6 - Medications Medications: Current Medications Acetaminophen (Tylenol 325mg Tab) 650 mg PO Q6 PRN PRN Reason: Fever >100.4 F Acetaminophen (Tylenol 650 Mg Supp) 650 mg [place] DAILY PRN PRN Reason: Anaphylaxis Stop: 09/13/16 13:27 Last Admin: 09/11/16 10:53 Dose: 650 mg Artificial Tears (Artificial Tears) 0 ml OU QID [facility] Last Admin: 09/12/16 14:18 Dose: 1 drop Diphenhydramine HCl (Benadryl) 50 mg IVP DAILY PRN PRN Reason: Anaphylaxis Stop: 09/13/16 13:27 Last Admin: 09/11/16 12:15 Dose: 50 mg Epoetin Herve (Procrit) 10,000 unit IV TTS [facility] Last Admin: 09/11/16 20:11 Dose: 10,000 unit Heparin Sodium (Porcine) (Heparin) 3,400 units IVP TTS [facility] Last Admin: 09/11/16 20:12 Dose: 3,400 units Heparin Sodium (Porcine) (Heparin) 5,000 units SC Q12H [facility] Last Admin: 09/12/16 10:22 Dose: 5,000 units Calcium Gluconate 2,000 mg/ (Sodium Chloride) 270 mls @ 100 mls/hr IVPB DAILY [facility] Stop: 09/13/16 16:01 Last Admin: 09/11/16 10:44 Dose: 100 mls/hr Propofol (Diprivan) 1,000 mg in 100 mls @ 2.16 mls/hr IV .Q24H PRN; Protocol; 5 MCG/KG/MIN PRN Reason: TITRATE PER MD ORDER Last Admin: 09/12/16 11:31 Dose: 5 mcg/kg/min, 2.16 mls/hr Methylprednisolone (Solu-Medrol) 100 mg IV DAILY PRN PRN Reason: Anaphylaxis Stop: 09/13/16 13:27 Last Admin: 09/11/16 12:15 Dose: 100 mg Pantoprazole Sodium (Protonix Susp) 40 mg PO DAILY [facility] Last Admin: 09/12/16 10:22 Dose: 40 mg Valacyclovir HCl (Valtrex) 500 mg PO DAILY [facility] Last Admin: 09/12/16 10:21 Dose: 500 mg - Labs Labs: 09/12/16 06:19 09/12/16 06:17 PT 11.1 SECONDS (9.7-12.2) 09/08/16 07:22 INR 1.0 09/08/16 07:22 APTT 24 SECONDS (21-34) 09/08/16 07:22 - Constitutional Appears: No Acute Distress - ENT Exam Additional comments: intubated - Respiratory Exam Respiratory Exam: NORMAL BREATHING PATTERN Additional comments: on mechanical vent - Cardiovascular Exam Cardiovascular Exam: REGULAR RHYTHM - GI/Abdominal Exam GI & Abdominal Exam: Soft, Normal Bowel Sounds - Neurological Exam Additional comments: sedated Assessment and Plan - Assessment and Plan (Free Text) Assessment: (1) TTP (thrombotic thrombocytopenic purpura) Assessment & Plan: Will restart plasma exchange today, need HD immediately before or after plasma exchange. Will transfuse 1U pRBC with HD today. Need total of 4 days with 3500cc FFP. Continue steroids. Will consider increasing plasma volume exchange as per attending. Continue monitoring platelet. Status: Acute (2) Renal failure Assessment & Plan: Acute on chronic Continue HD TTS as per nephro. Status: Acute (3) CHF Assessment & Plan: On LifeVest Status: Acute
--- NOTE | 2016-09-12 16:43 | CP.PCM.PN ---
Subjective - Date & Time of Evaluation Date of Evaluation: 09/12/16 Time of Evaluation: 13:40 - Subjective Subjective: Clinically same Objective - Vital Signs/Intake and Output Vital Signs (last 24 hours): Temp Pulse Resp BP Pulse Ox 97.6 F 74 14 146/80 98 09/12/16 16:25 09/12/16 16:25 09/12/16 16:25 09/12/16 16:25 09/12/16 16:00 Intake and Output: 09/12/16 09/12/16 06:59 18:59 Intake Total 51.6 474.8 Output Total 0 0 Balance 51.6 474.8 - Medications Medications: Current Medications Acetaminophen (Tylenol 325mg Tab) 650 mg PO Q6 PRN PRN Reason: Fever >100.4 F Acetaminophen (Tylenol 650 Mg Supp) 650 mg [place] DAILY PRN PRN Reason: Anaphylaxis Stop: 09/13/16 13:27 Last Admin: 09/11/16 10:53 Dose: 650 mg Artificial Tears (Artificial Tears) 0 ml OU QID [facility] Last Admin: 09/12/16 14:18 Dose: 1 drop Diphenhydramine HCl (Benadryl) 50 mg IVP DAILY PRN PRN Reason: Anaphylaxis Stop: 09/13/16 13:27 Last Admin: 09/11/16 12:15 Dose: 50 mg Epoetin Herve (Procrit) 10,000 unit IV TTS [facility] Last Admin: 09/11/16 20:11 Dose: 10,000 unit Heparin Sodium (Porcine) (Heparin) 3,400 units IVP TTS [facility] Last Admin: 09/11/16 20:12 Dose: 3,400 units Heparin Sodium (Porcine) (Heparin) 5,000 units SC Q12H [facility] Last Admin: 09/12/16 10:22 Dose: 5,000 units Calcium Gluconate 2,000 mg/ (Sodium Chloride) 270 mls @ 100 mls/hr IVPB DAILY [facility] Stop: 09/13/16 16:01 Last Admin: 09/11/16 10:44 Dose: 100 mls/hr Propofol (Diprivan) 1,000 mg in 100 mls @ 2.16 mls/hr IV .Q24H PRN; Protocol; 5 MCG/KG/MIN PRN Reason: TITRATE PER MD ORDER Last Admin: 09/12/16 11:31 Dose: 5 mcg/kg/min, 2.16 mls/hr Methylprednisolone (Solu-Medrol) 100 mg IV DAILY PRN PRN Reason: Anaphylaxis Stop: 09/13/16 13:27 Last Admin: 09/11/16 12:15 Dose: 100 mg Pantoprazole Sodium (Protonix Susp) 40 mg PO DAILY [facility] Last Admin: 09/12/16 10:22 Dose: 40 mg Valacyclovir HCl (Valtrex) 500 mg PO DAILY [facility] Last Admin: 09/12/16 10:21 Dose: 500 mg - Labs Labs: 09/12/16 06:19 09/12/16 06:17 PT 11.1 SECONDS (9.7-12.2) 09/08/16 07:22 INR 1.0 09/08/16 07:22 APTT 24 SECONDS (21-34) 09/08/16 07:22 - Constitutional Appears: Well - Head Exam Head Exam: ATRAUMATIC, NORMAL INSPECTION, NORMOCEPHALIC - Eye Exam Eye Exam: EOMI, Normal appearance, PERRL Pupil Exam: NORMAL ACCOMODATION, PERRL - ENT Exam ENT Exam: Mucous Membranes Moist, Normal Exam - Neck Exam Neck Exam: Full ROM, Normal Inspection. absent: Lymphadenopathy - Respiratory Exam Respiratory Exam: Decreased Breath Sounds - Cardiovascular Exam Cardiovascular Exam: REGULAR RHYTHM, +S1, +S2 - GI/Abdominal Exam GI & Abdominal Exam: Soft, Diminished Bowel Sounds - Rectal Exam Rectal Exam: Deferred Assessment and Plan (1) Cardiac dysrhythmia Status: Acute (2) ESRD (end stage renal disease) on dialysis Status: Acute (3) MARCO (acute kidney injury) Status: Acute (4) Acute respiratory failure requiring reintubation Status: Acute (5) Arthritis Status: Acute (6) CHF (congestive heart failure) Status: Acute (7) Dehydration Status: Acute (8) Dehydration Status: Acute (9) Diverticulosis Status: Acute (10) Elevated CEA Status: Acute (11) Hypertension Status: Acute (12) Inguinal lymphadenopathy Status: Acute (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
--- NOTE | 2016-09-12 16:47 | CP.CCUPN ---
<Carlota Laughlin - Last Filed: 09/12/16 18:03> CCU Subjective - Physician Review Subjective (Free Text): Patient was seen and examined at bedside in the morning. Patient is intubated and unable to respond to questions and review of systems. 09/12/16 18:03 CCU Objective - Vital Signs / Intake & Output Vital Signs (Last 4 hours): Vital Signs Temp Pulse Pulse Resp BP BP Pulse Ox 09/12/16 16:25 97.6 F 74 14 146/80 09/12/16 16:10 160/80 H 09/12/16 16:00 97.9 F 77 14 154/88 H 98 09/12/16 15:55 98.4 F 70 14 154/88 H 154/88 H 09/12/16 15:40 98.6 F 72 68 14 159/84 H 159/84 H 100 09/12/16 15:25 98.4 F 72 70 14 157/82 H 157/82 H 100 09/12/16 15:10 71 14 147/76 100 09/12/16 15:00 98.4 F 78 14 147/78 99 09/12/16 14:00 75 14 154/85 H 100 09/12/16 13:00 78 14 159/83 H 97 Intake and Output (Last 8hrs): Intake & Output 09/12/16 09/12/16 09/12/16 06:59 14:59 22:59 Intake Total 34.4 105.6 369.2 Output Total 0 0 Balance 34.4 105.6 369.2 Weight 146 lb 11.2 oz Intake: Intake, IV Amount 34.4 25.6 4.2 Left Hand 34.4 25.6 4.2 Tube Feeding 20 40 Blood Product 325 Red Blood Cells Cpd As1 325 Lr Unit [id number] Albumin 60 Output: Urine 0 0 Urine, Voided 0 0 Stool 0 0 - Physical Exam Head: Positive for: Atraumatic, Normocephalic Extroacular Muscles: Negative for: EOMI Mouth: Positive for: Moist Mucous Membranes Respiratory/Chest: Positive for: Wheezes, Rhonchi, Other (intubated). Negative for: Clear to Auscultation Cardiovascular: Positive for: Normal S1, S2, Tachycardic Abdomen: Positive for: Normal Bowel Sounds Upper Extremity: Negative for: Edema, Swelling Lower Extremity: Positive for: Edema. Negative for: NORMAL PULSES (diminished) Neurological: Negative for: GCS=15, Speech Normal Skin: Positive for: Warm, Dry, Normal Color Psychiatric: Negative for: Alert, Oriented x 3, Normal Insight, Normal Concentration - Medications Active Medications: Active Medications Generic Name Dose Route Start Last Admin Trade Name Freq PRN Reason Stop Dose Admin Acetaminophen 650 mg 08/16/16 03:42 Tylenol 325mg Tab PO Q6 PRN Fever >100.4 F Acetaminophen 650 mg 09/09/16 13:26 09/11/16 10:53 Tylenol 650 Mg Supp OH 09/13/16 13:27 650 mg DAILY PRN Administration Anaphylaxis Artificial Tears 0 ml 08/16/16 14:00 09/12/16 14:18 Artificial Tears OU 1 drop QID JESSI Administration Diphenhydramine HCl 50 mg 09/09/16 13:26 09/11/16 12:15 Benadryl IVP 09/13/16 13:27 50 mg DAILY PRN Administration Anaphylaxis Epoetin Herve 10,000 unit 09/04/16 11:15 09/11/16 20:11 Procrit IV 10,000 unit TTS JESSI Administration Heparin Sodium (Porcine) 3,400 units 09/09/16 11:02 09/11/16 20:12 Heparin IVP 3,400 units TTS JESSI Administration Heparin Sodium (Porcine) 5,000 units 09/11/16 22:00 09/12/16 10:22 Heparin SC 5,000 units Q12H JESSI Administration Calcium Gluconate 2,000 mg/ 270 mls @ 100 mls/hr 09/11/16 10:00 09/11/16 10: 44 Sodium Chloride IVPB 09/13/16 16:01 100 mls/hr DAILY JESSI Administration Propofol 1,000 mg in 100 mls @ 2.16 mls/hr 09/11/16 16:17 09/12/16 11:31 Diprivan IV 5 mcg/kg/min .Q24H PRN 2.16 mls/hr TITRATE PER MD ORDER Administration Protocol 5 MCG/KG/MIN Methylprednisolone 100 mg 09/09/16 13:26 09/11/16 12:15 Solu-Medrol IV 09/13/16 13:27 100 mg DAILY PRN Administration Anaphylaxis Pantoprazole Sodium 40 mg 09/12/16 10:00 09/12/16 10:22 Protonix Susp PO 40 mg DAILY JESSI Administration Valacyclovir HCl 500 mg 08/16/16 10:00 09/12/16 10:21 Valtrex PO 500 mg DAILY JESSI Administration - Patient Studies Lab Studies: Microbiology Studies 09/11/16 15:55 MRSA Culture (Admit) - Final Naris MRSA NOT DETECTED Lab Studies 09/12/16 09/12/16 09/12/16 Range/Units 12:40 11:36 10:48 WBC (4.8-10.8) K/uL RBC (3.80-5.20) Mil/uL Hgb (11.0-16.0) g/dL Hct (34.0-47.0) % MCV (81.0-99.0) fL MCH (27.0-31.0) pg MCHC (33.0-37.0) g/dL RDW (11.5-14.5) % Plt Count (130-400) K/uL MPV (7.2-11.7) fL Neut % (Auto) (50.0-75.0) % Lymph % (Auto) (20.0-40.0) % [place] % (Auto) (0.0-10.0) % Eos % (Auto) (0.0-4.0) % Baso % (Auto) (0.0-2.0) % Neut # (1.8-7.0) K/uL Lymph # (1.0-4.3) K/uL [place] # (0.0-0.8) K/uL Eos # (0.0-0.7) K/uL Baso # (0.0-0.2) K/uL Neutrophils % (Manual) (50-75) % Band Neutrophils % (0-2) % Lymphocytes % (Manual) (20-40) % Monocytes % (Manual) (0-10) % Platelet Estimate (NORMAL) Large Platelets Hypochromasia (manual) Poikilocytosis (manual Anisocytosis (manual) Macrocytosis (manual) Puncture Site pCO2 (35-45) mm/Hg pO2 (80-100) mm/Hg HCO3 (21-28) mmol/L ABG pH (7.35-7.45) ABG Total CO2 (22-28) mmol/L ABG O2 Saturation (95-98) % ABG Base Excess (-2.0-3.0) mmol/L ABG Hemoglobin (11.7-17.4) g/dL ABG Carboxyhemoglobin (0.5-1.5) % POC ABG HHb (Measured) (0.0-5.0) % ABG Methemoglobin (0.0-3.0) % Braxton Test A-a O2 Difference mm/Hg Respiratory Index Hgb O2 Saturation (95.0-98.0) % Vent Mode Mechanical Rate FiO2 % Tidal Volume PEEP Sodium (132-148) mmol/L Potassium (3.6-5.2) mmol/L Chloride (98-107) mmol/L Carbon Dioxide (22-30) mmol/L Anion Gap (10-20) BUN (7-17) mg/dL Creatinine (0.7-1.2) MG/DL Est GFR ( Amer) Est GFR (Non-Af Amer) POC Glucose (mg/dL) 161 H (65-110) mg/dL Random Glucose (65-105) mg/dL Calcium (8.6-10.4) mg/dl Phosphorus (2.5-4.5) mg/dL Magnesium (1.6-2.3) mg/dL Total Bilirubin (0.2-1.3) mg/dL AST (14-36) U/L ALT (9-52) U/L Alkaline Phosphatase (38-126) U/L Total Protein (6.3-8.3) g/dL Albumin (3.5-5.0) g/dL Globulin (2.2-3.9) gm/dL Albumin/Globulin Ratio (1.0-2.1) C. difficile Ag & Toxin Negative (NEGATIVE) Blood Type O POSITIVE Antibody Screen Negative 09/12/16 09/12/16 09/12/16 Range/Units 06:39 06:19 06:17 WBC 10.0 (4.8-10.8) K/uL RBC 2.32 L (3.80-5.20) Mil/uL Hgb 7.2 L (11.0-16.0) g/dL Hct 23.4 L (34.0-47.0) % MCV 101.1 H (81.0-99.0) fL MCH 31.0 (27.0-31.0) pg MCHC 30.7 L (33.0-37.0) g/dL RDW 18.7 H (11.5-14.5) % Plt Count 83 L D (130-400) K/uL MPV 11.1 (7.2-11.7) fL Neut % (Auto) 88.8 H (50.0-75.0) % Lymph % (Auto) 5.8 L (20.0-40.0) % [place] % (Auto) 4.9 (0.0-10.0) % Eos % (Auto) 0.0 (0.0-4.0) % Baso % (Auto) 0.5 (0.0-2.0) % Neut # 8.9 H (1.8-7.0) K/uL Lymph # 0.6 L (1.0-4.3) K/uL [place] # 0.5 (0.0-0.8) K/uL Eos # 0.0 (0.0-0.7) K/uL Baso # 0.1 (0.0-0.2) K/uL Neutrophils % (Manual) 89 H (50-75) % Band Neutrophils % 1 (0-2) % Lymphocytes % (Manual) 6 L (20-40) % Monocytes % (Manual) 4 (0-10) % Platelet Estimate Decreased L (NORMAL) Large Platelets Present Hypochromasia (manual) Slight Poikilocytosis (manual Slight Anisocytosis (manual) Slight Macrocytosis (manual) Moderate Puncture Site pCO2 (35-45) mm/Hg pO2 (80-100) mm/Hg HCO3 (21-28) mmol/L ABG pH (7.35-7.45) ABG Total CO2 (22-28) mmol/L ABG O2 Saturation (95-98) % ABG Base Excess (-2.0-3.0) mmol/L ABG Hemoglobin (11.7-17.4) g/dL ABG Carboxyhemoglobin (0.5-1.5) % POC ABG HHb (Measured) (0.0-5.0) % ABG Methemoglobin (0.0-3.0) % Braxton Test A-a O2 Difference mm/Hg Respiratory Index Hgb O2 Saturation (95.0-98.0) % Vent Mode Mechanical Rate FiO2 % Tidal Volume PEEP Sodium 137 (132-148) mmol/L Potassium 3.9 (3.6-5.2) mmol/L Chloride 92 L (98-107) mmol/L Carbon Dioxide 32 H (22-30) mmol/L Anion Gap 17 (10-20) BUN 22 H (7-17) mg/dL Creatinine 3.1 H (0.7-1.2) MG/DL Est GFR ( Amer) 17 Est GFR (Non-Af Amer) 14 POC Glucose (mg/dL) 192 H (65-110) mg/dL Random Glucose 163 H (65-105) mg/dL Calcium 7.9 L (8.6-10.4) mg/dl Phosphorus 4.7 H (2.5-4.5) mg/dL Magnesium 1.9 (1.6-2.3) mg/dL Total Bilirubin 0.5 (0.2-1.3) mg/dL AST 39 H (14-36) U/L ALT 54 H (9-52) U/L Alkaline Phosphatase 98 (38-126) U/L Total Protein 5.3 L (6.3-8.3) g/dL Albumin 2.8 L (3.5-5.0) g/dL Globulin 2.5 (2.2-3.9) gm/dL Albumin/Globulin Ratio 1.1 (1.0-2.1) C. difficile Ag & Toxin (NEGATIVE) Blood Type Antibody Screen 09/12/16 09/12/16 09/11/16 Range/Units 05:23 00:28 21:25 WBC (4.8-10.8) K/uL RBC (3.80-5.20) Mil/uL Hgb (11.0-16.0) g/dL Hct (34.0-47.0) % MCV (81.0-99.0) fL MCH (27.0-31.0) pg MCHC (33.0-37.0) g/dL RDW (11.5-14.5) % Plt Count (130-400) K/uL MPV (7.2-11.7) fL Neut % (Auto) (50.0-75.0) % Lymph % (Auto) (20.0-40.0) % [place] % (Auto) (0.0-10.0) % Eos % (Auto) (0.0-4.0) % Baso % (Auto) (0.0-2.0) % Neut # (1.8-7.0) K/uL Lymph # (1.0-4.3) K/uL [place] # (0.0-0.8) K/uL Eos # (0.0-0.7) K/uL Baso # (0.0-0.2) K/uL Neutrophils % (Manual) (50-75) % Band Neutrophils % (0-2) % Lymphocytes % (Manual) (20-40) % Monocytes % (Manual) (0-10) % Platelet Estimate (NORMAL) Large Platelets Hypochromasia (manual) Poikilocytosis (manual Anisocytosis (manual) Macrocytosis (manual) Puncture Site L rad Rra pCO2 41 39 (35-45) mm/Hg pO2 78 L 138 H (80-100) mm/Hg HCO3 34.6 H 31.4 H (21-28) mmol/L ABG pH 7.55 H 7.52 H (7.35-7.45) ABG Total CO2 37.2 H 33.0 H (22-28) mmol/L ABG O2 Saturation 98.6 H 99.8 H (95-98) % ABG Base Excess 12.4 H 8.3 H (-2.0-3.0) mmol/L ABG Hemoglobin 7.4 L 8.0 L (11.7-17.4) g/dL ABG Carboxyhemoglobin 1.9 H 1.9 H (0.5-1.5) % POC ABG HHb (Measured) 1.4 0.2 (0.0-5.0) % ABG Methemoglobin 1.0 1.1 (0.0-3.0) % Braxton Test Pos Pos A-a O2 Difference 441.0 526.0 mm/Hg Respiratory Index 5.7 3.8 Hgb O2 Saturation 95.7 96.8 (95.0-98.0) % Vent Mode Prvc A/c Mechanical Rate 14 14 FiO2 80.0 100.0 % Tidal Volume 450 500 PEEP 5 5 Sodium (132-148) mmol/L Potassium (3.6-5.2) mmol/L Chloride (98-107) mmol/L Carbon Dioxide (22-30) mmol/L Anion Gap (10-20) BUN (7-17) mg/dL Creatinine (0.7-1.2) MG/DL Est GFR ( Amer) Est GFR (Non-Af Amer) POC Glucose (mg/dL) 191 H (65-110) mg/dL Random Glucose (65-105) mg/dL Calcium (8.6-10.4) mg/dl Phosphorus (2.5-4.5) mg/dL Magnesium (1.6-2.3) mg/dL Total Bilirubin (0.2-1.3) mg/dL AST (14-36) U/L ALT (9-52) U/L Alkaline Phosphatase (38-126) U/L Total Protein (6.3-8.3) g/dL Albumin (3.5-5.0) g/dL Globulin (2.2-3.9) gm/dL Albumin/Globulin Ratio (1.0-2.1) C. difficile Ag & Toxin (NEGATIVE) Blood Type Antibody Screen 09/11/16 Range/Units 17:49 WBC (4.8-10.8) K/uL RBC (3.80-5.20) Mil/uL Hgb (11.0-16.0) g/dL Hct (34.0-47.0) % MCV (81.0-99.0) fL MCH (27.0-31.0) pg MCHC (33.0-37.0) g/dL RDW (11.5-14.5) % Plt Count (130-400) K/uL MPV (7.2-11.7) fL Neut % (Auto) (50.0-75.0) % Lymph % (Auto) (20.0-40.0) % [place] % (Auto) (0.0-10.0) % Eos % (Auto) (0.0-4.0) % Baso % (Auto) (0.0-2.0) % Neut # (1.8-7.0) K/uL Lymph # (1.0-4.3) K/uL [place] # (0.0-0.8) K/uL Eos # (0.0-0.7) K/uL Baso # (0.0-0.2) K/uL Neutrophils % (Manual) (50-75) % Band Neutrophils % (0-2) % Lymphocytes % (Manual) (20-40) % Monocytes % (Manual) (0-10) % Platelet Estimate (NORMAL) Large Platelets Hypochromasia (manual) Poikilocytosis (manual Anisocytosis (manual) Macrocytosis (manual) Puncture Site pCO2 (35-45) mm/Hg pO2 (80-100) mm/Hg HCO3 (21-28) mmol/L ABG pH (7.35-7.45) ABG Total CO2 (22-28) mmol/L ABG O2 Saturation (95-98) % ABG Base Excess (-2.0-3.0) mmol/L ABG Hemoglobin (11.7-17.4) g/dL ABG Carboxyhemoglobin (0.5-1.5) % POC ABG HHb (Measured) (0.0-5.0) % ABG Methemoglobin (0.0-3.0) % Braxton Test A-a O2 Difference mm/Hg Respiratory Index Hgb O2 Saturation (95.0-98.0) % Vent Mode Mechanical Rate FiO2 % Tidal Volume PEEP Sodium (132-148) mmol/L Potassium (3.6-5.2) mmol/L Chloride (98-107) mmol/L Carbon Dioxide (22-30) mmol/L Anion Gap (10-20) BUN (7-17) mg/dL Creatinine (0.7-1.2) MG/DL Est GFR ( Amer) Est GFR (Non-Af Amer) POC Glucose (mg/dL) 319 H (65-110) mg/dL Random Glucose (65-105) mg/dL Calcium (8.6-10.4) mg/dl Phosphorus (2.5-4.5) mg/dL Magnesium (1.6-2.3) mg/dL Total Bilirubin (0.2-1.3) mg/dL AST (14-36) U/L ALT (9-52) U/L Alkaline Phosphatase (38-126) U/L Total Protein (6.3-8.3) g/dL Albumin (3.5-5.0) g/dL Globulin (2.2-3.9) gm/dL Albumin/Globulin Ratio (1.0-2.1) C. difficile Ag & Toxin (NEGATIVE) Blood Type Antibody Screen Laboratory Results - last 24 hr 09/11/16 09/11/16 09/12/16 17:49 21:25 00:28 WBC RBC Hgb Hct MCV MCH MCHC RDW Plt Count MPV Neut % (Auto) Lymph % (Auto) [place] % (Auto) Eos % (Auto) Baso % (Auto) Neut # Lymph # [place] # Eos # Baso # Neutrophils % (Manual) Band Neutrophils % Lymphocytes % (Manual) Monocytes % (Manual) Platelet Estimate Large Platelets Hypochromasia (manual) Poikilocytosis (manual Anisocytosis (manual) Macrocytosis (manual) Puncture Site Rra pCO2 39 pO2 138 H HCO3 31.4 H ABG pH 7.52 H ABG Total CO2 33.0 H ABG O2 Saturation 99.8 H ABG Base Excess 8.3 H ABG Hemoglobin 8.0 L ABG Carboxyhemoglobin 1.9 H POC ABG HHb (Measured) 0.2 ABG Methemoglobin 1.1 Braxton Test Pos A-a O2 Difference 526.0 Respiratory Index 3.8 Hgb O2 Saturation 96.8 Vent Mode A/c Mechanical Rate 14 FiO2 100.0 Tidal Volume 500 PEEP 5 Sodium Potassium Chloride Carbon Dioxide Anion Gap BUN Creatinine Est GFR ( Amer) Est GFR (Non-Af Amer) POC Glucose (mg/dL) 319 H 191 H Random Glucose Calcium Phosphorus Magnesium Total Bilirubin AST ALT Alkaline Phosphatase Total Protein Albumin Globulin Albumin/Globulin Ratio C. difficile Ag & Toxin Blood Type Antibody Screen 09/12/16 09/12/16 09/12/16 05:23 06:17 06:19 WBC 10.0 RBC 2.32 L Hgb 7.2 L Hct 23.4 L MCV 101.1 H MCH 31.0 MCHC 30.7 L RDW 18.7 H Plt Count 83 L D MPV 11.1 Neut % (Auto) 88.8 H Lymph % (Auto) 5.8 L [place] % (Auto) 4.9 Eos % (Auto) 0.0 Baso % (Auto) 0.5 Neut # 8.9 H Lymph # 0.6 L [place] # 0.5 Eos # 0.0 Baso # 0.1 Neutrophils % (Manual) 89 H Band Neutrophils % 1 Lymphocytes % (Manual) 6 L Monocytes % (Manual) 4 Platelet Estimate Decreased L Large Platelets Present Hypochromasia (manual) Slight Poikilocytosis (manual Slight Anisocytosis (manual) Slight Macrocytosis (manual) Moderate Puncture Site L rad pCO2 41 pO2 78 L HCO3 34.6 H ABG pH 7.55 H ABG Total CO2 37.2 H ABG O2 Saturation 98.6 H ABG Base Excess 12.4 H ABG Hemoglobin 7.4 L ABG Carboxyhemoglobin 1.9 H POC ABG HHb (Measured) 1.4 ABG Methemoglobin 1.0 Braxton Test Pos A-a O2 Difference 441.0 Respiratory Index 5.7 Hgb O2 Saturation 95.7 Vent Mode Prvc Mechanical Rate 14 FiO2 80.0 Tidal Volume 450 PEEP 5 Sodium 137 Potassium 3.9 Chloride 92 L Carbon Dioxide 32 H Anion Gap 17 BUN 22 H Creatinine 3.1 H Est GFR ( Amer) 17 Est GFR (Non-Af Amer) 14 POC Glucose (mg/dL) Random Glucose 163 H Calcium 7.9 L Phosphorus 4.7 H Magnesium 1.9 Total Bilirubin 0.5 AST 39 H ALT 54 H Alkaline Phosphatase 98 Total Protein 5.3 L Albumin 2.8 L Globulin 2.5 Albumin/Globulin Ratio 1.1 C. difficile Ag & Toxin Blood Type Antibody Screen 09/12/16 09/12/16 09/12/16 06:39 10:48 11:36 WBC RBC Hgb Hct MCV MCH MCHC RDW Plt Count MPV Neut % (Auto) Lymph % (Auto) [place] % (Auto) Eos % (Auto) Baso % (Auto) Neut # Lymph # [place] # Eos # Baso # Neutrophils % (Manual) Band Neutrophils % Lymphocytes % (Manual) Monocytes % (Manual) Platelet Estimate Large Platelets Hypochromasia (manual) Poikilocytosis (manual Anisocytosis (manual) Macrocytosis (manual) Puncture Site pCO2 pO2 HCO3 ABG pH ABG Total CO2 ABG O2 Saturation ABG Base Excess ABG Hemoglobin ABG Carboxyhemoglobin POC ABG HHb (Measured) ABG Methemoglobin Braxton Test A-a O2 Difference Respiratory Index Hgb O2 Saturation Vent Mode Mechanical Rate FiO2 Tidal Volume PEEP Sodium Potassium Chloride Carbon Dioxide Anion Gap BUN Creatinine Est GFR ( Amer) Est GFR (Non-Af Amer) POC Glucose (mg/dL) 192 H 161 H Random Glucose Calcium Phosphorus Magnesium Total Bilirubin AST ALT Alkaline Phosphatase Total Protein Albumin Globulin Albumin/Globulin Ratio C. difficile Ag & Toxin Negative Blood Type Antibody Screen 09/12/16 12:40 WBC RBC Hgb Hct MCV MCH MCHC RDW Plt Count MPV Neut % (Auto) Lymph % (Auto) [place] % (Auto) Eos % (Auto) Baso % (Auto) Neut # Lymph # [place] # Eos # Baso # Neutrophils % (Manual) Band Neutrophils % Lymphocytes % (Manual) Monocytes % (Manual) Platelet Estimate Large Platelets Hypochromasia (manual) Poikilocytosis (manual Anisocytosis (manual) Macrocytosis (manual) Puncture Site pCO2 pO2 HCO3 ABG pH ABG Total CO2 ABG O2 Saturation ABG Base Excess ABG Hemoglobin ABG Carboxyhemoglobin POC ABG HHb (Measured) ABG Methemoglobin Braxton Test A-a O2 Difference Respiratory Index Hgb O2 Saturation Vent Mode Mechanical Rate FiO2 Tidal Volume PEEP Sodium Potassium Chloride Carbon Dioxide Anion Gap BUN Creatinine Est GFR ( Amer) Est GFR (Non-Af Amer) POC Glucose (mg/dL) Random Glucose Calcium Phosphorus Magnesium Total Bilirubin AST ALT Alkaline Phosphatase Total Protein Albumin Globulin Albumin/Globulin Ratio C. difficile Ag & Toxin Blood Type O POSITIVE Antibody Screen Negative Review of Systems - Review of Systems Systems not reviewed;Unavailable: Intubated Critical Care Progress Note - Vent Settings TIDAL VOLUME:: 450 RESP RATE:: 14 FIO2:: 80 PEEP:: 5 - Nutrition Nutrition: Nutrition Category Date Time Status Renal Diet [DIET] Diets 08/16/16 Dinner Active Assessment/Plan (1) Pulmonary edema Assessment and plan: 80-year-old female with past medical history of systolic CHF (EF-10%). 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 Now in recurrent respiratory failure from flash pulmonary edema s/p plasma exchange. Neuro: Sedated with propofol drip. Pulm: Acute respiratory failure secondary to pulmonary edema status post plasma exchange. Intubated on vent. Will dialyze to remove fluid. - CXR 09/12: improving CHF with infiltrate/atelectasis CV: Hemodynamically stable. Hypertensive, the pressure will drop with dialysis. Hem: Thrombocytopenia from TTP, patient getting another round of plasma exchange. Patient had 1 exchange done yesterday, with 3-4 more scheduled. Continue methylprednisolone 100 mg IV daily. Anemia of chronic disease, continue Procrit. - Discussed plan of care with Dr. Montanez. - Will have plasma exchange today. Renal: End-stage renal disease now on chronic dialysis, T//Thu. - Patient was dialyzed today for pulmonary edema. Endo: No acute issues GI: Nothing by mouth, - Tube feeds, renal formula. - Protonix ID: No acute issues. DVT proph - heparin subcutaneous GI proph - Protonix PT/OT Code status - full code Current Visit: Yes Status: Acute <Alessandro Sims - Last Filed: 09/12/16 18:34> CCU Objective - Vital Signs / Intake & Output Vital Signs (Last 4 hours): Vital Signs Temp Pulse Pulse Pulse Resp BP BP 09/12/16 17:10 98.6 F 79 15 128/83 09/12/16 17:00 84 14 119/86 09/12/16 16:40 131/79 09/12/16 16:25 97.6 F 74 14 146/80 09/12/16 16:10 160/80 H 09/12/16 16:00 97.9 F 77 14 154/88 H 09/12/16 15:55 98.4 F 70 14 154/88 H 154/88 H 09/12/16 15:40 98.6 F 72 68 14 159/84 H 159/84 H 09/12/16 15:25 98.4 F 72 70 14 157/82 H 157/82 H 09/12/16 15:10 71 14 147/76 09/12/16 15:00 98.4 F 78 14 147/78 Pulse Ox 09/12/16 17:10 100 09/12/16 17:00 100 09/12/16 16:40 09/12/16 16:25 09/12/16 16:10 09/12/16 16:00 98 09/12/16 15:55 09/12/16 15:40 100 09/12/16 15:25 100 09/12/16 15:10 100 09/12/16 15:00 99 Intake and Output (Last 8hrs): Intake & Output 09/12/16 09/12/16 09/12/16 06:59 14:59 22:59 Intake Total 34.4 105.6 391.3 Output Total 0 0 Balance 34.4 105.6 391.3 Weight 146 lb 11.2 oz Intake: Intake, IV Amount 34.4 25.6 6.3 Left Hand 34.4 25.6 6.3 Tube Feeding 20 60 Blood Product 325 Red Blood Cells Cpd As1 325 Lr Unit [id number] Albumin 60 Output: Urine 0 0 Urine, Voided 0 0 Stool 0 0 - Medications Active Medications: Active Medications Generic Name Dose Route Start Last Admin Trade Name Freq PRN Reason Stop Dose Admin Acetaminophen 650 mg 08/16/16 03:42 Tylenol 325mg Tab PO Q6 PRN Fever >100.4 F Acetaminophen 650 mg 09/09/16 13:26 09/11/16 10:53 Tylenol 650 Mg Supp OH 09/13/16 13:27 650 mg DAILY PRN Administration Anaphylaxis Artificial Tears 0 ml 08/16/16 14:00 09/12/16 17:00 Artificial Tears OU 1 drop QID JESSI Administration Diphenhydramine HCl 50 mg 09/09/16 13:26 09/11/16 12:15 Benadryl IVP 09/13/16 13:27 50 mg DAILY PRN Administration Anaphylaxis Epoetin Herve 10,000 unit 09/04/16 11:15 09/11/16 20:11 Procrit IV 10,000 unit TTS JESSI Administration Heparin Sodium (Porcine) 3,400 units 09/09/16 11:02 09/11/16 20:12 Heparin IVP 3,400 units TTS JESSI Administration Heparin Sodium (Porcine) 5,000 units 09/11/16 22:00 09/12/16 10:22 Heparin SC 5,000 units Q12H JESSI Administration Calcium Gluconate 2,000 mg/ 270 mls @ 100 mls/hr 09/11/16 10:00 09/11/16 10: 44 Sodium Chloride IVPB 09/13/16 16:01 100 mls/hr DAILY JESSI Administration Propofol 1,000 mg in 100 mls @ 2.16 mls/hr 09/11/16 16:17 09/12/16 11:31 Diprivan IV 5 mcg/kg/min .Q24H PRN 2.16 mls/hr TITRATE PER MD ORDER Administration Protocol 5 MCG/KG/MIN Methylprednisolone 100 mg 09/09/16 13:26 09/11/16 12:15 Solu-Medrol IV 09/13/16 13:27 100 mg DAILY PRN Administration Anaphylaxis Pantoprazole Sodium 40 mg 09/12/16 10:00 09/12/16 10:22 Protonix Susp PO 40 mg DAILY JESSI Administration Valacyclovir HCl 500 mg 08/16/16 10:00 09/12/16 10:21 Valtrex PO 500 mg DAILY JESSI Administration - Patient Studies Lab Studies: Microbiology Studies 09/11/16 15:55 MRSA Culture (Admit) - Final Naris MRSA NOT DETECTED Lab Studies 09/12/16 09/12/16 09/12/16 Range/Units 17:45 12:40 11:36 WBC (4.8-10.8) K/uL RBC (3.80-5.20) Mil/uL Hgb (11.0-16.0) g/dL Hct (34.0-47.0) % MCV (81.0-99.0) fL MCH (27.0-31.0) pg MCHC (33.0-37.0) g/dL RDW (11.5-14.5) % Plt Count (130-400) K/uL MPV (7.2-11.7) fL Neut % (Auto) (50.0-75.0) % Lymph % (Auto) (20.0-40.0) % [place] % (Auto) (0.0-10.0) % Eos % (Auto) (0.0-4.0) % Baso % (Auto) (0.0-2.0) % Neut # (1.8-7.0) K/uL Lymph # (1.0-4.3) K/uL [place] # (0.0-0.8) K/uL Eos # (0.0-0.7) K/uL Baso # (0.0-0.2) K/uL Neutrophils % (Manual) (50-75) % Band Neutrophils % (0-2) % Lymphocytes % (Manual) (20-40) % Monocytes % (Manual) (0-10) % Platelet Estimate (NORMAL) Large Platelets Hypochromasia (manual) Poikilocytosis (manual Anisocytosis (manual) Macrocytosis (manual) Puncture Site pCO2 (35-45) mm/Hg pO2 (80-100) mm/Hg HCO3 (21-28) mmol/L ABG pH (7.35-7.45) ABG Total CO2 (22-28) mmol/L ABG O2 Saturation (95-98) % ABG Base Excess (-2.0-3.0) mmol/L ABG Hemoglobin (11.7-17.4) g/dL ABG Carboxyhemoglobin (0.5-1.5) % POC ABG HHb (Measured) (0.0-5.0) % ABG Methemoglobin (0.0-3.0) % Braxton Test A-a O2 Difference mm/Hg Respiratory Index Hgb O2 Saturation (95.0-98.0) % Vent Mode Mechanical Rate FiO2 % Tidal Volume PEEP Sodium (132-148) mmol/L Potassium (3.6-5.2) mmol/L Chloride (98-107) mmol/L Carbon Dioxide (22-30) mmol/L Anion Gap (10-20) BUN (7-17) mg/dL Creatinine (0.7-1.2) MG/DL Est GFR ( Amer) Est GFR (Non-Af Amer) POC Glucose (mg/dL) 138 H 161 H (65-110) mg/dL Random Glucose (65-105) mg/dL Calcium (8.6-10.4) mg/dl Phosphorus (2.5-4.5) mg/dL Magnesium (1.6-2.3) mg/dL Total Bilirubin (0.2-1.3) mg/dL AST (14-36) U/L ALT (9-52) U/L Alkaline Phosphatase (38-126) U/L Total Protein (6.3-8.3) g/dL Albumin (3.5-5.0) g/dL Globulin (2.2-3.9) gm/dL Albumin/Globulin Ratio (1.0-2.1) C. difficile Ag & Toxin (NEGATIVE) Blood Type O POSITIVE Antibody Screen Negative 09/12/16 09/12/16 09/12/16 Range/Units 10:48 06:39 06:19 WBC 10.0 (4.8-10.8) K/uL RBC 2.32 L (3.80-5.20) Mil/uL Hgb 7.2 L (11.0-16.0) g/dL Hct 23.4 L (34.0-47.0) % MCV 101.1 H (81.0-99.0) fL MCH 31.0 (27.0-31.0) pg MCHC 30.7 L (33.0-37.0) g/dL RDW 18.7 H (11.5-14.5) % Plt Count 83 L D (130-400) K/uL MPV 11.1 (7.2-11.7) fL Neut % (Auto) 88.8 H (50.0-75.0) % Lymph % (Auto) 5.8 L (20.0-40.0) % [place] % (Auto) 4.9 (0.0-10.0) % Eos % (Auto) 0.0 (0.0-4.0) % Baso % (Auto) 0.5 (0.0-2.0) % Neut # 8.9 H (1.8-7.0) K/uL Lymph # 0.6 L (1.0-4.3) K/uL [place] # 0.5 (0.0-0.8) K/uL Eos # 0.0 (0.0-0.7) K/uL Baso # 0.1 (0.0-0.2) K/uL Neutrophils % (Manual) 89 H (50-75) % Band Neutrophils % 1 (0-2) % Lymphocytes % (Manual) 6 L (20-40) % Monocytes % (Manual) 4 (0-10) % Platelet Estimate Decreased L (NORMAL) Large Platelets Present Hypochromasia (manual) Slight Poikilocytosis (manual Slight Anisocytosis (manual) Slight Macrocytosis (manual) Moderate Puncture Site pCO2 (35-45) mm/Hg pO2 (80-100) mm/Hg HCO3 (21-28) mmol/L ABG pH (7.35-7.45) ABG Total CO2 (22-28) mmol/L ABG O2 Saturation (95-98) % ABG Base Excess (-2.0-3.0) mmol/L ABG Hemoglobin (11.7-17.4) g/dL ABG Carboxyhemoglobin (0.5-1.5) % POC ABG HHb (Measured) (0.0-5.0) % ABG Methemoglobin (0.0-3.0) % Braxton Test A-a O2 Difference mm/Hg Respiratory Index Hgb O2 Saturation (95.0-98.0) % Vent Mode Mechanical Rate FiO2 % Tidal Volume PEEP Sodium (132-148) mmol/L Potassium (3.6-5.2) mmol/L Chloride (98-107) mmol/L Carbon Dioxide (22-30) mmol/L Anion Gap (10-20) BUN (7-17) mg/dL Creatinine (0.7-1.2) MG/DL Est GFR ( Amer) Est GFR (Non-Af Amer) POC Glucose (mg/dL) 192 H (65-110) mg/dL Random Glucose (65-105) mg/dL Calcium (8.6-10.4) mg/dl Phosphorus (2.5-4.5) mg/dL Magnesium (1.6-2.3) mg/dL Total Bilirubin (0.2-1.3) mg/dL AST (14-36) U/L ALT (9-52) U/L Alkaline Phosphatase (38-126) U/L Total Protein (6.3-8.3) g/dL Albumin (3.5-5.0) g/dL Globulin (2.2-3.9) gm/dL Albumin/Globulin Ratio (1.0-2.1) C. difficile Ag & Toxin Negative (NEGATIVE) Blood Type Antibody Screen 09/12/16 09/12/16 09/12/16 Range/Units 06:17 05:23 00:28 WBC (4.8-10.8) K/uL RBC (3.80-5.20) Mil/uL Hgb (11.0-16.0) g/dL Hct (34.0-47.0) % MCV (81.0-99.0) fL MCH (27.0-31.0) pg MCHC (33.0-37.0) g/dL RDW (11.5-14.5) % Plt Count (130-400) K/uL MPV (7.2-11.7) fL Neut % (Auto) (50.0-75.0) % Lymph % (Auto) (20.0-40.0) % [place] % (Auto) (0.0-10.0) % Eos % (Auto) (0.0-4.0) % Baso % (Auto) (0.0-2.0) % Neut # (1.8-7.0) K/uL Lymph # (1.0-4.3) K/uL [place] # (0.0-0.8) K/uL Eos # (0.0-0.7) K/uL Baso # (0.0-0.2) K/uL Neutrophils % (Manual) (50-75) % Band Neutrophils % (0-2) % Lymphocytes % (Manual) (20-40) % Monocytes % (Manual) (0-10) % Platelet Estimate (NORMAL) Large Platelets Hypochromasia (manual) Poikilocytosis (manual Anisocytosis (manual) Macrocytosis (manual) Puncture Site L rad pCO2 41 (35-45) mm/Hg pO2 78 L (80-100) mm/Hg HCO3 34.6 H (21-28) mmol/L ABG pH 7.55 H (7.35-7.45) ABG Total CO2 37.2 H (22-28) mmol/L ABG O2 Saturation 98.6 H (95-98) % ABG Base Excess 12.4 H (-2.0-3.0) mmol/L ABG Hemoglobin 7.4 L (11.7-17.4) g/dL ABG Carboxyhemoglobin 1.9 H (0.5-1.5) % POC ABG HHb (Measured) 1.4 (0.0-5.0) % ABG Methemoglobin 1.0 (0.0-3.0) % Braxton Test Pos A-a O2 Difference 441.0 mm/Hg Respiratory Index 5.7 Hgb O2 Saturation 95.7 (95.0-98.0) % Vent Mode Prvc Mechanical Rate 14 FiO2 80.0 % Tidal Volume 450 PEEP 5 Sodium 137 (132-148) mmol/L Potassium 3.9 (3.6-5.2) mmol/L Chloride 92 L (98-107) mmol/L Carbon Dioxide 32 H (22-30) mmol/L Anion Gap 17 (10-20) BUN 22 H (7-17) mg/dL Creatinine 3.1 H (0.7-1.2) MG/DL Est GFR ( Amer) 17 Est GFR (Non-Af Amer) 14 POC Glucose (mg/dL) 191 H (65-110) mg/dL Random Glucose 163 H (65-105) mg/dL Calcium 7.9 L (8.6-10.4) mg/dl Phosphorus 4.7 H (2.5-4.5) mg/dL Magnesium 1.9 (1.6-2.3) mg/dL Total Bilirubin 0.5 (0.2-1.3) mg/dL AST 39 H (14-36) U/L ALT 54 H (9-52) U/L Alkaline Phosphatase 98 (38-126) U/L Total Protein 5.3 L (6.3-8.3) g/dL Albumin 2.8 L (3.5-5.0) g/dL Globulin 2.5 (2.2-3.9) gm/dL Albumin/Globulin Ratio 1.1 (1.0-2.1) C. difficile Ag & Toxin (NEGATIVE) Blood Type Antibody Screen 09/11/16 Range/Units 21:25 WBC (4.8-10.8) K/uL RBC (3.80-5.20) Mil/uL Hgb (11.0-16.0) g/dL Hct (34.0-47.0) % MCV (81.0-99.0) fL MCH (27.0-31.0) pg MCHC (33.0-37.0) g/dL RDW (11.5-14.5) % Plt Count (130-400) K/uL MPV (7.2-11.7) fL Neut % (Auto) (50.0-75.0) % Lymph % (Auto) (20.0-40.0) % [place] % (Auto) (0.0-10.0) % Eos % (Auto) (0.0-4.0) % Baso % (Auto) (0.0-2.0) % Neut # (1.8-7.0) K/uL Lymph # (1.0-4.3) K/uL [place] # (0.0-0.8) K/uL Eos # (0.0-0.7) K/uL Baso # (0.0-0.2) K/uL Neutrophils % (Manual) (50-75) % Band Neutrophils % (0-2) % Lymphocytes % (Manual) (20-40) % Monocytes % (Manual) (0-10) % Platelet Estimate (NORMAL) Large Platelets Hypochromasia (manual) Poikilocytosis (manual Anisocytosis (manual) Macrocytosis (manual) Puncture Site Rra pCO2 39 (35-45) mm/Hg pO2 138 H (80-100) mm/Hg HCO3 31.4 H (21-28) mmol/L ABG pH 7.52 H (7.35-7.45) ABG Total CO2 33.0 H (22-28) mmol/L ABG O2 Saturation 99.8 H (95-98) % ABG Base Excess 8.3 H (-2.0-3.0) mmol/L ABG Hemoglobin 8.0 L (11.7-17.4) g/dL ABG Carboxyhemoglobin 1.9 H (0.5-1.5) % POC ABG HHb (Measured) 0.2 (0.0-5.0) % ABG Methemoglobin 1.1 (0.0-3.0) % Braxton Test Pos A-a O2 Difference 526.0 mm/Hg Respiratory Index 3.8 Hgb O2 Saturation 96.8 (95.0-98.0) % Vent Mode A/c Mechanical Rate 14 FiO2 100.0 % Tidal Volume 500 PEEP 5 Sodium (132-148) mmol/L Potassium (3.6-5.2) mmol/L Chloride (98-107) mmol/L Carbon Dioxide (22-30) mmol/L Anion Gap (10-20) BUN (7-17) mg/dL Creatinine (0.7-1.2) MG/DL Est GFR ( Amer) Est GFR (Non-Af Amer) POC Glucose (mg/dL) (65-110) mg/dL Random Glucose (65-105) mg/dL Calcium (8.6-10.4) mg/dl Phosphorus (2.5-4.5) mg/dL Magnesium (1.6-2.3) mg/dL Total Bilirubin (0.2-1.3) mg/dL AST (14-36) U/L ALT (9-52) U/L Alkaline Phosphatase (38-126) U/L Total Protein (6.3-8.3) g/dL Albumin (3.5-5.0) g/dL Globulin (2.2-3.9) gm/dL Albumin/Globulin Ratio (1.0-2.1) C. difficile Ag & Toxin (NEGATIVE) Blood Type Antibody Screen Laboratory Results - last 24 hr 09/11/16 09/12/16 09/12/16 21:25 00:28 05:23 WBC RBC Hgb Hct MCV MCH MCHC RDW Plt Count MPV Neut % (Auto) Lymph % (Auto) [place] % (Auto) Eos % (Auto) Baso % (Auto) Neut # Lymph # [place] # Eos # Baso # Neutrophils % (Manual) Band Neutrophils % Lymphocytes % (Manual) Monocytes % (Manual) Platelet Estimate Large Platelets Hypochromasia (manual) Poikilocytosis (manual Anisocytosis (manual) Macrocytosis (manual) Puncture Site Rra L rad pCO2 39 41 pO2 138 H 78 L HCO3 31.4 H 34.6 H ABG pH 7.52 H 7.55 H ABG Total CO2 33.0 H 37.2 H ABG O2 Saturation 99.8 H 98.6 H ABG Base Excess 8.3 H 12.4 H ABG Hemoglobin 8.0 L 7.4 L ABG Carboxyhemoglobin 1.9 H 1.9 H POC ABG HHb (Measured) 0.2 1.4 ABG Methemoglobin 1.1 1.0 Braxton Test Pos Pos A-a O2 Difference 526.0 441.0 Respiratory Index 3.8 5.7 Hgb O2 Saturation 96.8 95.7 Vent Mode A/c Prvc Mechanical Rate 14 14 FiO2 100.0 80.0 Tidal Volume 500 450 PEEP 5 5 Sodium Potassium Chloride Carbon Dioxide Anion Gap BUN Creatinine Est GFR ( Amer) Est GFR (Non-Af Amer) POC Glucose (mg/dL) 191 H Random Glucose Calcium Phosphorus Magnesium Total Bilirubin AST ALT Alkaline Phosphatase Total Protein Albumin Globulin Albumin/Globulin Ratio C. difficile Ag & Toxin Blood Type Antibody Screen 09/12/16 09/12/16 09/12/16 06:17 06:19 06:39 WBC 10.0 RBC 2.32 L Hgb 7.2 L Hct 23.4 L MCV 101.1 H MCH 31.0 MCHC 30.7 L RDW 18.7 H Plt Count 83 L D MPV 11.1 Neut % (Auto) 88.8 H Lymph % (Auto) 5.8 L [place] % (Auto) 4.9 Eos % (Auto) 0.0 Baso % (Auto) 0.5 Neut # 8.9 H Lymph # 0.6 L [place] # 0.5 Eos # 0.0 Baso # 0.1 Neutrophils % (Manual) 89 H Band Neutrophils % 1 Lymphocytes % (Manual) 6 L Monocytes % (Manual) 4 Platelet Estimate Decreased L Large Platelets Present Hypochromasia (manual) Slight Poikilocytosis (manual Slight Anisocytosis (manual) Slight Macrocytosis (manual) Moderate Puncture Site pCO2 pO2 HCO3 ABG pH ABG Total CO2 ABG O2 Saturation ABG Base Excess ABG Hemoglobin ABG Carboxyhemoglobin POC ABG HHb (Measured) ABG Methemoglobin Braxton Test A-a O2 Difference Respiratory Index Hgb O2 Saturation Vent Mode Mechanical Rate FiO2 Tidal Volume PEEP Sodium 137 Potassium 3.9 Chloride 92 L Carbon Dioxide 32 H Anion Gap 17 BUN 22 H Creatinine 3.1 H Est GFR ( Amer) 17 Est GFR (Non-Af Amer) 14 POC Glucose (mg/dL) 192 H Random Glucose 163 H Calcium 7.9 L Phosphorus 4.7 H Magnesium 1.9 Total Bilirubin 0.5 AST 39 H ALT 54 H Alkaline Phosphatase 98 Total Protein 5.3 L Albumin 2.8 L Globulin 2.5 Albumin/Globulin Ratio 1.1 C. difficile Ag & Toxin Blood Type Antibody Screen 09/12/16 09/12/16 09/12/16 10:48 11:36 12:40 WBC RBC Hgb Hct MCV MCH MCHC RDW Plt Count MPV Neut % (Auto) Lymph % (Auto) [place] % (Auto) Eos % (Auto) Baso % (Auto) Neut # Lymph # [place] # Eos # Baso # Neutrophils % (Manual) Band Neutrophils % Lymphocytes % (Manual) Monocytes % (Manual) Platelet Estimate Large Platelets Hypochromasia (manual) Poikilocytosis (manual Anisocytosis (manual) Macrocytosis (manual) Puncture Site pCO2 pO2 HCO3 ABG pH ABG Total CO2 ABG O2 Saturation ABG Base Excess ABG Hemoglobin ABG Carboxyhemoglobin POC ABG HHb (Measured) ABG Methemoglobin Braxton Test A-a O2 Difference Respiratory Index Hgb O2 Saturation Vent Mode Mechanical Rate FiO2 Tidal Volume PEEP Sodium Potassium Chloride Carbon Dioxide Anion Gap BUN Creatinine Est GFR ( Amer) Est GFR (Non-Af Amer) POC Glucose (mg/dL) 161 H Random Glucose Calcium Phosphorus Magnesium Total Bilirubin AST ALT Alkaline Phosphatase Total Protein Albumin Globulin Albumin/Globulin Ratio C. difficile Ag & Toxin Negative Blood Type O POSITIVE Antibody Screen Negative 09/12/16 17:45 WBC RBC Hgb Hct MCV MCH MCHC RDW Plt Count MPV Neut % (Auto) Lymph % (Auto) [place] % (Auto) Eos % (Auto) Baso % (Auto) Neut # Lymph # [place] # Eos # Baso # Neutrophils % (Manual) Band Neutrophils % Lymphocytes % (Manual) Monocytes % (Manual) Platelet Estimate Large Platelets Hypochromasia (manual) Poikilocytosis (manual Anisocytosis (manual) Macrocytosis (manual) Puncture Site pCO2 pO2 HCO3 ABG pH ABG Total CO2 ABG O2 Saturation ABG Base Excess ABG Hemoglobin ABG Carboxyhemoglobin POC ABG HHb (Measured) ABG Methemoglobin Braxton Test A-a O2 Difference Respiratory Index Hgb O2 Saturation Vent Mode Mechanical Rate FiO2 Tidal Volume PEEP Sodium Potassium Chloride Carbon Dioxide Anion Gap BUN Creatinine Est GFR ( Amer) Est GFR (Non-Af Amer) POC Glucose (mg/dL) 138 H Random Glucose Calcium Phosphorus Magnesium Total Bilirubin AST ALT Alkaline Phosphatase Total Protein Albumin Globulin Albumin/Globulin Ratio C. difficile Ag & Toxin Blood Type Antibody Screen Critical Care Progress Note - Nutrition Nutrition: Nutrition Category Date Time Status Renal Diet [DIET] Diets 08/16/16 Dinner Active Assessment/Plan (1) Pulmonary edema Current Visit: Yes Status: Acute Attending/Attestation - Attestation I have personally seen and examined this patient.: Yes I have fully participated in the care of the patient.: Yes I have reviewed all pertinent clinical information: Yes Notes (Text): 09/12/16 18:33 I have seen and examined the patient. Medical records, lab studies, and imaging were reviewed by me and a management plan was formulated on multidisciplinary rounds with resident Dr. Burks. I agree with their above documented assessment and plan. Patient is still getting continual plasma exchange with subsequent dialysis. If this fails to improve thrombocytopenia, will have to consider using Rituximab. Hem/Onc - Dr. Montanez. Critical Care Time 35 minutes. Multi-disciplinary rounds were performed with house staff, nursing, speech therapy, respiratory therapy, pharmacy and nutrition with integrated input from the primary team/attending and other consulting services. The documented time is cumulative and includes review of patient data/exams/labs/chart review and examination of the patient on rounds and throughout the day; time is exclusive of any procedures or teaching time.
[2016-09-12] MEDS: DiphenhydrAMINE 50 mg/ml Inj IVP PRN (19:57)
[2016-09-12 20:39] LABS: FIBRINOGEN 186 mg/dL (200-400); PARTIAL THROMBOPLASTIN TIME 25 SECONDS (21-34)
[2016-09-12 20:40] LABS: FDP INTERPRETATION POSITIVE (NEGATIVE); FDP QUANTITY >40 ug/mL (<10)
[2016-09-13 05:43] LABS: ABG ALLEN TEST POS; ABG MECHANICAL RATE 14; ARTERIAL BLOOD GAS MODE PRVC; ARTERIAL BLOOD HGB O2 SAT 96.2 % (95.0-98.0); ATERIAL BLOOD GAS PEEP 5; CARBOXYHEMOGLOBIN 1.8 % (0.5-1.5); DRAW SITE RR; HHB 0.7 % (0.0-5.0); METHEMOGLOBIN 1.3 % (0.0-3.0)
[2016-09-13 06:37] LABS: POTASSIUM 3.5 mmol/L (3.6-5.2)
[2016-09-13 06:39] LABS: BILIRUBIN,TOTAL 0.6 mg/dL (0.2-1.3)
[2016-09-13 06:40] LABS: ALB/GLOB RATIO 1.1 (1.0-2.1); CALCIUM 7.8 mg/dl (8.6-10.4); MAGNESIUM 1.8 mg/dL (1.6-2.3); PHOSPHOROUS 4.8 mg/dL (2.5-4.5); TOTAL PROTEIN 5.3 g/dL (6.3-8.3)
[2016-09-13 07:05] LABS: BASO % 0.1 % (0.0-2.0); HEMATOCRIT 27.5 % (34.0-47.0); LYMPH # 0.4 K/uL (1.0-4.3); LYMPH % 4.3 % (20.0-40.0); MEAN CELL VOLUME 97.5 fL (81.0-99.0); MEAN CORPUSCULAR HEMOGLOBIN 31.4 pg (27.0-31.0); MEAN CORPUSCULAR HGB CONC 32.2 g/dL (33.0-37.0); MEAN PLATELET VOLUME 10.7 fL (7.2-11.7); MONO # 0.4 K/uL (0.0-0.8); MONO % 4.1 % (0.0-10.0); NRBC % 0.2 % (0.0-2.0); PLATELET COUNT 87 K/uL (130-400); WHITE BLOOD COUNT 8.8 K/uL (4.8-10.8)
--- NOTE | 2016-09-13 08:19 | RAD ---
HISTORY: intubated COMPARISON: 08/16/2016 FINDINGS: LUNGS: Multiple overlying wires and devices limit evaluation. Endotracheal tube with distal tip not well visualized obscured by overlying device. NG tube also obscured by adjacent overlying devices. Moderate venous congestion with patchy bibasilar airspace opacities and right hilar prominence. Biapical pleural thickening with upper lobe granulomatous changes. Question trace bilateral pleural effusions. PLEURA: As above. CARDIOVASCULAR: Cardiomegaly. OSSEOUS STRUCTURES: Degenerative changes in the spine and shoulders. Calcific tendinopathy of the right proximal humerus. VISUALIZED UPPER ABDOMEN: Normal. OTHER FINDINGS: None. IMPRESSION: Multiple overlying wires and devices limit evaluation. Endotracheal tube with distal tip not well visualized obscured by overlying device. NG tube also obscured by adjacent overlying devices. Moderate venous congestion with patchy bibasilar airspace opacities and right hilar prominence. Biapical pleural thickening with upper lobe granulomatous changes. Question trace bilateral pleural effusions.
[2016-09-13 09:08] LABS: NEUTROPHIL 87 % (50-75); TOTAL CELLS COUNTED 100
[2016-09-13] MEDS: Aritificial Tears (15ml) OU SCH ×5 (10:11→23:00)
[2016-09-13] MEDS: Pantoprazole 40 mg Susp UD PO SCH (10:11)
[2016-09-13] MEDS: Epoetin Alfa 10,000 unit/ml Dialysis IV SCH (13:25)
--- NOTE | 2016-09-13 13:58 | CP.PCM.PN ---
Subjective - Date & Time of Evaluation Date of Evaluation: 09/13/16 Time of Evaluation: 11:00 - Subjective Subjective: clinically same Objective - Vital Signs/Intake and Output Vital Signs (last 24 hours): Temp Pulse Resp BP Pulse Ox 37.3 F L 84 16 175/101 H 100 09/13/16 11:30 09/13/16 13:30 09/13/16 13:00 09/13/16 13:30 09/13/16 12:30 Intake and Output: 09/13/16 09/13/16 06:59 18:59 Intake Total 355.2 32.1 Balance 355.2 32.1 - Medications Medications: Current Medications Acetaminophen (Tylenol 325mg Tab) 650 mg PO Q6 PRN PRN Reason: Fever >100.4 F Artificial Tears (Artificial Tears) 0 ml OU QID [facility] Last Admin: 09/12/16 21:58 Dose: Not Given Epoetin Herve (Procrit) 10,000 unit IV TTS [facility] Last Admin: 09/13/16 13:25 Dose: 10,000 unit Heparin Sodium (Porcine) (Heparin) 3,400 units IVP TTS [facility] Last Admin: 09/11/16 20:12 Dose: 3,400 units Heparin Sodium (Porcine) (Heparin) 5,000 units SC Q12H [facility] Last Admin: 09/12/16 21:58 Dose: Not Given Calcium Gluconate 2,000 mg/ (Sodium Chloride) 270 mls @ 100 mls/hr IVPB DAILY [facility] Stop: 09/13/16 16:01 Last Admin: 09/12/16 19:57 Dose: 100 mls/hr Propofol (Diprivan) 1,000 mg in 100 mls @ 2.16 mls/hr IV .Q24H PRN; Protocol; 5 MCG/KG/MIN PRN Reason: TITRATE PER MD ORDER Last Admin: 09/12/16 11:31 Dose: 5 mcg/kg/min, 2.16 mls/hr Pantoprazole Sodium (Protonix Susp) 40 mg PO DAILY [facility] Last Admin: 09/12/16 10:22 Dose: 40 mg Valacyclovir HCl (Valtrex) 500 mg PO DAILY [facility] Last Admin: 09/12/16 10:21 Dose: 500 mg - Labs Labs: 09/13/16 06:19 09/13/16 06:14 PT 11.1 SECONDS (9.7-12.2) 09/12/16 20:17 INR 1.0 09/12/16 20:17 APTT 25 SECONDS (21-34) 09/12/16 20:17 - Constitutional Appears: Well - Head Exam Head Exam: ATRAUMATIC, NORMAL INSPECTION, NORMOCEPHALIC - Eye Exam Eye Exam: EOMI, Normal appearance, PERRL Pupil Exam: NORMAL ACCOMODATION, PERRL - ENT Exam ENT Exam: Mucous Membranes Moist, Normal Exam - Neck Exam Neck Exam: Full ROM, Normal Inspection. absent: Lymphadenopathy - Respiratory Exam Respiratory Exam: Decreased Breath Sounds - Cardiovascular Exam Cardiovascular Exam: REGULAR RHYTHM, +S1, +S2 - GI/Abdominal Exam GI & Abdominal Exam: Soft, Diminished Bowel Sounds - Rectal Exam Rectal Exam: Deferred Assessment and Plan (1) Cardiac dysrhythmia Status: Acute (2) ESRD (end stage renal disease) on dialysis Status: Acute (3) MARCO (acute kidney injury) Status: Acute (4) Acute respiratory failure requiring reintubation Status: Acute (5) Arthritis Status: Acute (6) CHF (congestive heart failure) Status: Acute (7) Dehydration Status: Acute (8) Dehydration Status: Acute (9) Diverticulosis Status: Acute (10) Elevated CEA Status: Acute (11) Hypertension Status: Acute (12) Inguinal lymphadenopathy Status: Acute (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
--- NOTE | 2016-09-13 14:51 | CP.PCM.PN ---
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 Objective - Vital Signs/Intake and Output Vital Signs (last 24 hours): Temp Pulse Resp BP Pulse Ox 37.3 F L 84 16 175/101 H 100 09/13/16 11:30 09/13/16 14:00 09/13/16 14:00 09/13/16 13:30 09/13/16 12:30 Intake and Output: 09/13/16 09/13/16 06:59 18:59 Intake Total 355.2 32.1 Balance 355.2 32.1 - Medications Medications: Current Medications Acetaminophen (Tylenol 325mg Tab) 650 mg PO Q6 PRN PRN Reason: Fever >100.4 F Artificial Tears (Artificial Tears) 0 ml OU QID [facility] Last Admin: 09/12/16 21:58 Dose: Not Given Epoetin Herve (Procrit) 10,000 unit IV TTS [facility] Last Admin: 09/13/16 13:25 Dose: 10,000 unit Heparin Sodium (Porcine) (Heparin) 3,400 units IVP TTS [facility] Last Admin: 09/11/16 20:12 Dose: 3,400 units Heparin Sodium (Porcine) (Heparin) 5,000 units SC Q12H [facility] Last Admin: 09/12/16 21:58 Dose: Not Given Calcium Gluconate 2,000 mg/ (Sodium Chloride) 270 mls @ 100 mls/hr IVPB DAILY [facility] Stop: 09/13/16 16:01 Last Admin: 09/12/16 19:57 Dose: 100 mls/hr Propofol (Diprivan) 1,000 mg in 100 mls @ 2.16 mls/hr IV .Q24H PRN; Protocol; 5 MCG/KG/MIN PRN Reason: TITRATE PER MD ORDER Last Admin: 09/12/16 11:31 Dose: 5 mcg/kg/min, 2.16 mls/hr Pantoprazole Sodium (Protonix Susp) 40 mg PO DAILY [facility] Last Admin: 09/12/16 10:22 Dose: 40 mg Valacyclovir HCl (Valtrex) 500 mg PO DAILY [facility] Last Admin: 09/12/16 10:21 Dose: 500 mg - Labs Labs: 09/13/16 06:19 09/13/16 06:14 PT 11.1 SECONDS (9.7-12.2) 09/12/16 20:17 INR 1.0 09/12/16 20:17 APTT 25 SECONDS (21-34) 09/12/16 20:17
--- NOTE | 2016-09-13 15:15 | CP.CCUPN ---
CCU Subjective - Physician Review Events Since Last Encounter (Free Text): 09/13/16 15:12 sedated on vent CCU Objective - Vital Signs / Intake & Output Vital Signs (Last 4 hours): Vital Signs Temp Pulse Pulse Resp BP BP Pulse Ox 09/13/16 14:30 37.2 F L 86 16 173/98 H 100 09/13/16 14:00 84 16 09/13/16 13:30 84 175/101 H 09/13/16 13:00 80 16 180/107 H 09/13/16 12:30 81 17 181/98 H 100 09/13/16 12:15 75 17 182/100 H 100 09/13/16 12:00 76 18 175/99 H 100 09/13/16 11:45 73 18 178/96 H 100 09/13/16 11:30 37.3 F L 76 17 178/94 H 99 09/13/16 11:27 37.3 F L 73 18 173/94 H Intake and Output (Last 8hrs): Intake & Output 09/13/16 09/13/16 09/13/16 06:59 14:59 22:59 Intake Total 251.8 32.1 Balance 251.8 32.1 Intake: Intake, IV Amount 16.8 2.1 Left Upper arm 16.8 2.1 Tube Feeding 235 30 Other: # Bowel Movements 1 - Physical Exam Head: Positive for: Atraumatic, Normocephalic Extroacular Muscles: Negative for: EOMI Mouth: Positive for: Moist Mucous Membranes Respiratory/Chest: Positive for: Wheezes, Rhonchi, Other (intubated). Negative for: Clear to Auscultation Cardiovascular: Positive for: Normal S1, S2, Tachycardic Abdomen: Positive for: Normal Bowel Sounds Upper Extremity: Negative for: Edema, Swelling Lower Extremity: Positive for: Edema. Negative for: NORMAL PULSES (diminished) Neurological: Negative for: GCS=15, Speech Normal Skin: Positive for: Warm, Dry, Normal Color Psychiatric: Negative for: Alert, Oriented x 3, Normal Insight, Normal Concentration - Medications Active Medications: Active Medications Generic Name Dose Route Start Last Admin Trade Name Freq PRN Reason Stop Dose Admin Acetaminophen 650 mg 08/16/16 03:42 Tylenol 325mg Tab PO Q6 PRN Fever >100.4 F Artificial Tears 0 ml 08/16/16 14:00 09/12/16 21:58 Artificial Tears OU Not Given QID JESSI Epoetin Herve 10,000 unit 09/04/16 11:15 09/13/16 13:25 Procrit IV 10,000 unit TTS JESSI Administration Heparin Sodium (Porcine) 3,400 units 09/09/16 11:02 09/13/16 14:35 Heparin IVP 3,400 units TTS JESSI Administration Heparin Sodium (Porcine) 5,000 units 09/11/16 22:00 09/12/16 21:58 Heparin SC Not Given Q12H JESSI Calcium Gluconate 2,000 mg/ 270 mls @ 100 mls/hr 09/11/16 10:00 09/12/16 19: 57 Sodium Chloride IVPB 09/13/16 16:01 100 mls/hr DAILY JESSI Administration Propofol 1,000 mg in 100 mls @ 2.16 mls/hr 09/11/16 16:17 09/12/16 11:31 Diprivan IV 5 mcg/kg/min .Q24H PRN 2.16 mls/hr TITRATE PER MD ORDER Administration Protocol 5 MCG/KG/MIN Pantoprazole Sodium 40 mg 09/12/16 10:00 09/12/16 10:22 Protonix Susp PO 40 mg DAILY JESSI Administration Valacyclovir HCl 500 mg 08/16/16 10:00 09/12/16 10:21 Valtrex PO 500 mg DAILY JESSI Administration - Patient Studies Lab Studies: Microbiology Studies 09/11/16 15:55 MRSA Culture (Admit) - Final Naris MRSA NOT DETECTED Lab Studies 09/13/16 09/13/16 09/13/16 Range/Units Unknown 12:02 06:19 WBC 8.8 (4.8-10.8) K/uL RBC 2.82 L (3.80-5.20) Mil/uL Hgb 8.9 L (11.0-16.0) g/dL Hct 27.5 L (34.0-47.0) % MCV 97.5 D (81.0-99.0) fL MCH 31.4 H (27.0-31.0) pg MCHC 32.2 L (33.0-37.0) g/dL RDW 18.0 H (11.5-14.5) % Plt Count 87 L (130-400) K/uL MPV 10.7 (7.2-11.7) fL Neut % (Auto) 91.5 H (50.0-75.0) % Lymph % (Auto) 4.3 L (20.0-40.0) % Mason % (Auto) 4.1 (0.0-10.0) % Eos % (Auto) 0.0 (0.0-4.0) % Baso % (Auto) 0.1 (0.0-2.0) % Neut # 8.0 H (1.8-7.0) K/uL Lymph # 0.4 L (1.0-4.3) K/uL Mason # 0.4 (0.0-0.8) K/uL Eos # 0.0 (0.0-0.7) K/uL Baso # 0.0 (0.0-0.2) K/uL Neutrophils % (Manual) 87 H (50-75) % Lymphocytes % (Manual) 9 L (20-40) % Monocytes % (Manual) 4 (0-10) % Platelet Estimate Decreased L (NORMAL) Polychromasia Slight Hypochromasia (manual) Slight Poikilocytosis (manual Slight Anisocytosis (manual) Slight Macrocytosis (manual) Slight Tear Drop Cells Slight Ovalocytes Slight PT (9.7-12.2) SECONDS INR APTT (21-34) SECONDS Fibrinogen (200-400) mg/dL Fibrin Degrad Products (NEGATIVE) Fibrin Degrad Prod, Qt (<10) ug/mL Puncture Site pCO2 (35-45) mm/Hg pO2 (80-100) mm/Hg HCO3 (21-28) mmol/L ABG pH (7.35-7.45) ABG Total CO2 (22-28) mmol/L ABG O2 Saturation (95-98) % ABG Base Excess (-2.0-3.0) mmol/L ABG Hemoglobin (11.7-17.4) g/dL ABG Carboxyhemoglobin (0.5-1.5) % POC ABG HHb (Measured) (0.0-5.0) % ABG Methemoglobin (0.0-3.0) % Braxton Test A-a O2 Difference mm/Hg Respiratory Index Hgb O2 Saturation (95.0-98.0) % Vent Mode Mechanical Rate FiO2 % Tidal Volume PEEP Sodium (132-148) mmol/L Potassium (3.6-5.2) mmol/L Chloride (98-107) mmol/L Carbon Dioxide (22-30) mmol/L Anion Gap (10-20) BUN (7-17) mg/dL Creatinine (0.7-1.2) MG/DL Est GFR ( Amer) Est GFR (Non-Af Amer) POC Glucose (mg/dL) 215 H (65-110) mg/dL Random Glucose (65-105) mg/dL Calcium (8.6-10.4) mg/dl Phosphorus (2.5-4.5) mg/dL Magnesium (1.6-2.3) mg/dL Total Bilirubin (0.2-1.3) mg/dL AST (14-36) U/L ALT (9-52) U/L Alkaline Phosphatase (38-126) U/L Total Protein (6.3-8.3) g/dL Albumin (3.5-5.0) g/dL Globulin (2.2-3.9) gm/dL Albumin/Globulin Ratio (1.0-2.1) C. difficile Ag & Toxin Negative (NEGATIVE) Blood Type Antibody Screen 09/13/16 09/13/16 09/12/16 Range/Units 06:14 05:20 20:17 WBC (4.8-10.8) K/uL RBC (3.80-5.20) Mil/uL Hgb (11.0-16.0) g/dL Hct (34.0-47.0) % MCV (81.0-99.0) fL MCH (27.0-31.0) pg MCHC (33.0-37.0) g/dL RDW (11.5-14.5) % Plt Count (130-400) K/uL MPV (7.2-11.7) fL Neut % (Auto) (50.0-75.0) % Lymph % (Auto) (20.0-40.0) % Mason % (Auto) (0.0-10.0) % Eos % (Auto) (0.0-4.0) % Baso % (Auto) (0.0-2.0) % Neut # (1.8-7.0) K/uL Lymph # (1.0-4.3) K/uL Mason # (0.0-0.8) K/uL Eos # (0.0-0.7) K/uL Baso # (0.0-0.2) K/uL Neutrophils % (Manual) (50-75) % Lymphocytes % (Manual) (20-40) % Monocytes % (Manual) (0-10) % Platelet Estimate (NORMAL) Polychromasia Hypochromasia (manual) Poikilocytosis (manual Anisocytosis (manual) Macrocytosis (manual) Tear Drop Cells Ovalocytes PT 11.1 (9.7-12.2) SECONDS INR 1.0 APTT 25 (21-34) SECONDS Fibrinogen 186 L (200-400) mg/dL Fibrin Degrad Products Positive H (NEGATIVE) Fibrin Degrad Prod, Qt >40 H (<10) ug/mL Puncture Site Rr pCO2 43 (35-45) mm/Hg pO2 95 (80-100) mm/Hg HCO3 35.8 H (21-28) mmol/L ABG pH 7.55 H (7.35-7.45) ABG Total CO2 38.9 H (22-28) mmol/L ABG O2 Saturation 99.3 H (95-98) % ABG Base Excess 13.9 H (-2.0-3.0) mmol/L ABG Hemoglobin 8.8 L (11.7-17.4) g/dL ABG Carboxyhemoglobin 1.8 H (0.5-1.5) % POC ABG HHb (Measured) 0.7 (0.0-5.0) % ABG Methemoglobin 1.3 (0.0-3.0) % Braxton Test Pos A-a O2 Difference 422.0 mm/Hg Respiratory Index 4.4 Hgb O2 Saturation 96.2 (95.0-98.0) % Vent Mode Prvc Mechanical Rate 14 FiO2 80.0 % Tidal Volume 450 PEEP 5 Sodium 138 (132-148) mmol/L Potassium 3.5 L (3.6-5.2) mmol/L Chloride 91 L (98-107) mmol/L Carbon Dioxide 34 H (22-30) mmol/L Anion Gap 17 (10-20) BUN 24 H (7-17) mg/dL Creatinine 2.7 H (0.7-1.2) MG/DL Est GFR ( Amer) 21 Est GFR (Non-Af Amer) 17 POC Glucose (mg/dL) (65-110) mg/dL Random Glucose 197 H (65-105) mg/dL Calcium 7.8 L (8.6-10.4) mg/dl Phosphorus 4.8 H (2.5-4.5) mg/dL Magnesium 1.8 (1.6-2.3) mg/dL Total Bilirubin 0.6 (0.2-1.3) mg/dL AST 41 H (14-36) U/L ALT 54 H (9-52) U/L Alkaline Phosphatase 113 (38-126) U/L Total Protein 5.3 L (6.3-8.3) g/dL Albumin 2.8 L (3.5-5.0) g/dL Globulin 2.5 (2.2-3.9) gm/dL Albumin/Globulin Ratio 1.1 (1.0-2.1) C. difficile Ag & Toxin (NEGATIVE) Blood Type Antibody Screen 09/12/16 09/12/16 09/12/16 Range/Units 17:45 12:40 10:48 WBC (4.8-10.8) K/uL RBC (3.80-5.20) Mil/uL Hgb (11.0-16.0) g/dL Hct (34.0-47.0) % MCV (81.0-99.0) fL MCH (27.0-31.0) pg MCHC (33.0-37.0) g/dL RDW (11.5-14.5) % Plt Count (130-400) K/uL MPV (7.2-11.7) fL Neut % (Auto) (50.0-75.0) % Lymph % (Auto) (20.0-40.0) % Mason % (Auto) (0.0-10.0) % Eos % (Auto) (0.0-4.0) % Baso % (Auto) (0.0-2.0) % Neut # (1.8-7.0) K/uL Lymph # (1.0-4.3) K/uL Mason # (0.0-0.8) K/uL Eos # (0.0-0.7) K/uL Baso # (0.0-0.2) K/uL Neutrophils % (Manual) (50-75) % Lymphocytes % (Manual) (20-40) % Monocytes % (Manual) (0-10) % Platelet Estimate (NORMAL) Polychromasia Hypochromasia (manual) Poikilocytosis (manual Anisocytosis (manual) Macrocytosis (manual) Tear Drop Cells Ovalocytes PT (9.7-12.2) SECONDS INR APTT (21-34) SECONDS Fibrinogen (200-400) mg/dL Fibrin Degrad Products (NEGATIVE) Fibrin Degrad Prod, Qt (<10) ug/mL Puncture Site pCO2 (35-45) mm/Hg pO2 (80-100) mm/Hg HCO3 (21-28) mmol/L ABG pH (7.35-7.45) ABG Total CO2 (22-28) mmol/L ABG O2 Saturation (95-98) % ABG Base Excess (-2.0-3.0) mmol/L ABG Hemoglobin (11.7-17.4) g/dL ABG Carboxyhemoglobin (0.5-1.5) % POC ABG HHb (Measured) (0.0-5.0) % ABG Methemoglobin (0.0-3.0) % Braxton Test A-a O2 Difference mm/Hg Respiratory Index Hgb O2 Saturation (95.0-98.0) % Vent Mode Mechanical Rate FiO2 % Tidal Volume PEEP Sodium (132-148) mmol/L Potassium (3.6-5.2) mmol/L Chloride (98-107) mmol/L Carbon Dioxide (22-30) mmol/L Anion Gap (10-20) BUN (7-17) mg/dL Creatinine (0.7-1.2) MG/DL Est GFR ( Amer) Est GFR (Non-Af Amer) POC Glucose (mg/dL) 138 H (65-110) mg/dL Random Glucose (65-105) mg/dL Calcium (8.6-10.4) mg/dl Phosphorus (2.5-4.5) mg/dL Magnesium (1.6-2.3) mg/dL Total Bilirubin (0.2-1.3) mg/dL AST (14-36) U/L ALT (9-52) U/L Alkaline Phosphatase (38-126) U/L Total Protein (6.3-8.3) g/dL Albumin (3.5-5.0) g/dL Globulin (2.2-3.9) gm/dL Albumin/Globulin Ratio (1.0-2.1) C. difficile Ag & Toxin Negative (NEGATIVE) Blood Type O POSITIVE Antibody Screen Negative Laboratory Results - last 24 hr 09/12/16 09/12/16 09/12/16 10:48 12:40 17:45 WBC RBC Hgb Hct MCV MCH MCHC RDW Plt Count MPV Neut % (Auto) Lymph % (Auto) Mason % (Auto) Eos % (Auto) Baso % (Auto) Neut # Lymph # Mason # Eos # Baso # Neutrophils % (Manual) Lymphocytes % (Manual) Monocytes % (Manual) Platelet Estimate Polychromasia Hypochromasia (manual) Poikilocytosis (manual Anisocytosis (manual) Macrocytosis (manual) Tear Drop Cells Ovalocytes PT INR APTT Fibrinogen Fibrin Degrad Products Fibrin Degrad Prod, Qt Puncture Site pCO2 pO2 HCO3 ABG pH ABG Total CO2 ABG O2 Saturation ABG Base Excess ABG Hemoglobin ABG Carboxyhemoglobin POC ABG HHb (Measured) ABG Methemoglobin Braxton Test A-a O2 Difference Respiratory Index Hgb O2 Saturation Vent Mode Mechanical Rate FiO2 Tidal Volume PEEP Sodium Potassium Chloride Carbon Dioxide Anion Gap BUN Creatinine Est GFR ( Amer) Est GFR (Non-Af Amer) POC Glucose (mg/dL) 138 H Random Glucose Calcium Phosphorus Magnesium Total Bilirubin AST ALT Alkaline Phosphatase Total Protein Albumin Globulin Albumin/Globulin Ratio C. difficile Ag & Toxin Negative Blood Type O POSITIVE Antibody Screen Negative 09/12/16 09/13/16 09/13/16 20:17 05:20 06:14 WBC RBC Hgb Hct MCV MCH MCHC RDW Plt Count MPV Neut % (Auto) Lymph % (Auto) Mason % (Auto) Eos % (Auto) Baso % (Auto) Neut # Lymph # Mason # Eos # Baso # Neutrophils % (Manual) Lymphocytes % (Manual) Monocytes % (Manual) Platelet Estimate Polychromasia Hypochromasia (manual) Poikilocytosis (manual Anisocytosis (manual) Macrocytosis (manual) Tear Drop Cells Ovalocytes PT 11.1 INR 1.0 APTT 25 Fibrinogen 186 L Fibrin Degrad Products Positive H Fibrin Degrad Prod, Qt >40 H Puncture Site Rr pCO2 43 pO2 95 HCO3 35.8 H ABG pH 7.55 H ABG Total CO2 38.9 H ABG O2 Saturation 99.3 H ABG Base Excess 13.9 H ABG Hemoglobin 8.8 L ABG Carboxyhemoglobin 1.8 H POC ABG HHb (Measured) 0.7 ABG Methemoglobin 1.3 Braxton Test Pos A-a O2 Difference 422.0 Respiratory Index 4.4 Hgb O2 Saturation 96.2 Vent Mode Prvc Mechanical Rate 14 FiO2 80.0 Tidal Volume 450 PEEP 5 Sodium 138 Potassium 3.5 L Chloride 91 L Carbon Dioxide 34 H Anion Gap 17 BUN 24 H Creatinine 2.7 H Est GFR ( Amer) 21 Est GFR (Non-Af Amer) 17 POC Glucose (mg/dL) Random Glucose 197 H Calcium 7.8 L Phosphorus 4.8 H Magnesium 1.8 Total Bilirubin 0.6 AST 41 H ALT 54 H Alkaline Phosphatase 113 Total Protein 5.3 L Albumin 2.8 L Globulin 2.5 Albumin/Globulin Ratio 1.1 C. difficile Ag & Toxin Blood Type Antibody Screen 09/13/16 09/13/16 09/13/16 06:19 12:02 Unknown WBC 8.8 RBC 2.82 L Hgb 8.9 L Hct 27.5 L MCV 97.5 D MCH 31.4 H MCHC 32.2 L RDW 18.0 H Plt Count 87 L MPV 10.7 Neut % (Auto) 91.5 H Lymph % (Auto) 4.3 L Mason % (Auto) 4.1 Eos % (Auto) 0.0 Baso % (Auto) 0.1 Neut # 8.0 H Lymph # 0.4 L Mason # 0.4 Eos # 0.0 Baso # 0.0 Neutrophils % (Manual) 87 H Lymphocytes % (Manual) 9 L Monocytes % (Manual) 4 Platelet Estimate Decreased L Polychromasia Slight Hypochromasia (manual) Slight Poikilocytosis (manual Slight Anisocytosis (manual) Slight Macrocytosis (manual) Slight Tear Drop Cells Slight Ovalocytes Slight PT INR APTT Fibrinogen Fibrin Degrad Products Fibrin Degrad Prod, Qt Puncture Site pCO2 pO2 HCO3 ABG pH ABG Total CO2 ABG O2 Saturation ABG Base Excess ABG Hemoglobin ABG Carboxyhemoglobin POC ABG HHb (Measured) ABG Methemoglobin Braxton Test A-a O2 Difference Respiratory Index Hgb O2 Saturation Vent Mode Mechanical Rate FiO2 Tidal Volume PEEP Sodium Potassium Chloride Carbon Dioxide Anion Gap BUN Creatinine Est GFR ( Amer) Est GFR (Non-Af Amer) POC Glucose (mg/dL) 215 H Random Glucose Calcium Phosphorus Magnesium Total Bilirubin AST ALT Alkaline Phosphatase Total Protein Albumin Globulin Albumin/Globulin Ratio C. difficile Ag & Toxin Negative Blood Type Antibody Screen Review of Systems - Review of Systems Systems not reviewed;Unavailable: Intubated Critical Care Progress Note - Nutrition Nutrition: Nutrition Category Date Time Status Renal Diet [DIET] Diets 08/16/16 Dinner Active Assessment/Plan (1) Pulmonary edema Assessment and plan: 80-year-old female with past medical history of systolic CHF (EF-10%). 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 Now in recurrent respiratory failure from flash pulmonary edema s/p plasma exchange. Intubated and brought to ICU for dialysis to remove fluid (). Neuro: Stopping propofol drip. Pulm: Chest x-ray still shows fluid overload. Starting pressure support trials. CV: Hemodynamically stable Hem: Thrombocytopenia not improving. Last plasmapheresis was today. 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 continue Procrit for anemia of chronic disease. Renal: ESRD on HD (//). Getting dialyzed today for pulmonary edema. Endo: No acute issues GI: Nothing by mouth, tube feedings, Nepro at 40. ID: No acute issues DVT proph - heparin subcutaneous GI proph - Protonix by mouth sharp for strict I/O's during acute illness Code status - full code Critical Care Time spent 35 minutes Multi-disciplinary rounds were performed with house staff, nursing, speech therapy, respiratory therapy, pharmacy and nutrition with integrated input from the primary team/attending and other consulting services. The documented time is cumulative and includes review of patient data/exams/labs/chart review and examination of the patient on rounds and throughout the day; time is exclusive of any procedures or teaching time. Current Visit: Yes Status: Acute
--- NOTE | 2016-09-14 02:43 | PN ---
DATE: 09/13/2016 LOCATION: ICU bed 1. REQUESTED BY: Kavon Ureña MD REASON FOR FOLLOWUP: Renal failure and continuation of hemodialysis. SUBJECTIVE: The patient is an 80-year-old elderly female with a history of hypertension, rheumatoid arthritis, TTP, cardiomyopathy, CHF, status post intubation and extubation about a month ago with renal failure, on hemodialysis almost 2 months. No improvement in the renal function. The patient was transferred 2 days back to ICU for respiratory failure after plasmapheresis. The patient completed a 4 days of plasmapheresis this week. The patient remains intubated. The patient is being dialyzed during my examination this afternoon. She had ultrafiltration about 2.8 liters. The patient is awake, not in distress. Remains intubated. PHYSICAL EXAMINATION GENERAL: The patient is an 80-year-old elderly female, moderately-built, moderately-nourished, on ventilator, not in distress. VITAL SIGNS: Blood pressure 163/91, pulse 78, respirations 14, temperature is 98.6, saturation 99%. Height 5 feet 2 inches and weight is 145 pounds. HEENT: Pupils normal, reactive to light and accommodation. Conjunctivae pink. Sclerae anicteric. Tongue is moist. On ventilator. CARDIOVASCULAR: [place] at the fifth intercostal space, midclavicular line. S1 and S2 audible. No murmur or gallop. LUNGS: Symmetrical on both sides. Bilateral breath sounds present. No crackles. ABDOMEN: Normal in appearance. Soft and tympanic. No guarding. No hepatosplenomegaly. CENTRAL NERVOUS SYSTEM: On ventilator, awake. Sensory and motor system is grossly within normal limits. EXTREMITIES: No cyanosis, no clubbing, no edema. LABORATORY DATA: Include as follows, as of 09/13/2016, WBC 8.8, hemoglobin 8.9, hematocrit is 27.5, platelets 87, neutrophils 87, lymph 9, monos 4. As of 09/12/2016, PT 11.1 and INR is 1.0, PTT 25. Fibrinogen 186, FDP positive more than 40. her ABG, pH 7.55, pCO2 of 43, pO2 of 95, bicarbonate 35.8, and saturation 99.3, on vent setting, AC 14, tidal volume 450, FiO2 of 80%, PEEP of 5. Sodium 138, potassium 3.5, chloride 91, CO2 of 34, BUN 24, creatinine 2.7, and glucose 197, calcium 7.8, phosphorus 4.8, magnesium 1.8, total bilirubin 0.6. AST 41, ALT 54, alkaline phosphatase 113. Total protein 5.3, albumin is 2.8. C. difficile toxin is negative as of 09/13/2016. MEDICATIONS: Her current medications include as follows, artificial tears, propofol IV and subcu heparin 5000 q.12 hours, Procrit 10,000 units three times a week, Protonix 40 mg daily, Tylenol and valacyclovir 500 mg p.o. daily. 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 1. Renal failure, acute on chronic kidney disease versus end-stage renal disease secondary to thrombotic microangiopathy, secondary to thrombotic thrombocytopenic purpura cannot be ruled out. 2. Hypertension. Blood pressure is improving. We will try to ultrafiltrate as much as the patient can tolerated. 3. Anemia secondary to renal failure and secondary to thrombotic thrombocytopenic purpura. 4. Thrombocytopenia secondary to thrombotic thrombocytopenic purpura rule out, heparin-induced thrombocytopenia also cannot be ruled out. 5. Cardiomyopathy. 6. Respiratory failure. We will check heparin-induced antibodies and followup with hematology and overall prognosis is poor. We will follow with you. Thank you for allowing me to participate in your patient's care. Horacio Graham MD [facility]
[2016-09-14 05:50] LABS: ABG ALLEN TEST POS; ABG MECHANICAL RATE 14; ARTERIAL BLOOD GAS MODE PRVC; ARTERIAL BLOOD HGB O2 SAT 95.9 % (95.0-98.0); ATERIAL BLOOD GAS PEEP 5; CARBOXYHEMOGLOBIN 2.2 % (0.5-1.5); DRAW SITE RR; HHB 0.9 % (0.0-5.0)
[2016-09-14 06:45] LABS: BASO % 0.4 % (0.0-2.0); EOS # 0.1 K/uL (0.0-0.7); EOS % 0.9 % (0.0-4.0); HEMATOCRIT 29.9 % (34.0-47.0); LYMPH # 0.7 K/uL (1.0-4.3); LYMPH % 7.2 % (20.0-40.0); MEAN CORPUSCULAR HEMOGLOBIN 31.6 pg (27.0-31.0); MEAN CORPUSCULAR HGB CONC 32.2 g/dL (33.0-37.0); MEAN PLATELET VOLUME 10.3 fL (7.2-11.7); MONO # 0.7 K/uL (0.0-0.8); MONO % 7.4 % (0.0-10.0); NRBC % 0.1 % (0.0-2.0); PLATELET COUNT 114 K/uL (130-400); RED CELL DISTRIBUTION WIDTH 17.9 % (11.5-14.5); WHITE BLOOD COUNT 9.9 K/uL (4.8-10.8)
[2016-09-14 06:55] LABS: BILIRUBIN,TOTAL 0.4 mg/dL (0.2-1.3); CALCIUM 7.5 mg/dl (8.6-10.4); POTASSIUM 3.4 mmol/L (3.6-5.2)
[2016-09-14 06:56] LABS: ALB/GLOB RATIO 1.1 (1.0-2.1)
[2016-09-14 08:34] LABS: NEUTROPHIL 84 % (50-75); NUCLEATED RED BLOOD CELL 1 % (0-0); TOTAL CELLS COUNTED 100
--- NOTE | 2016-09-14 08:51 | RAD ---
Chest x-ray single frontal view History: Follow-up. Comparison: 09/13/2016 Findings: Limited study as the endotracheal tube tip is not well visualized obscured by overlying external electronic device. NG tube extending into the stomach. Other lines and tubes in stable position. Diffuse increased interstitial lung markings. Patchy airspace opacities in the mid to lower lung zones with a suggestion of small bilateral pleural effusions. Tortuous ectatic aorta. Calcification at the aortic knob. Mild cardiomegaly. Degenerative changes in the spine and shoulders. Suggestion of calcific tendinopathy of the right proximal humerus. Impression: Limited study as the endotracheal tube tip is not well visualized obscured by overlying external electronic device. NG tube extending into the stomach. Other lines and tubes in stable position. Diffuse increased interstitial lung markings. Patchy airspace opacities in the mid to lower lung zones with a suggestion of small bilateral pleural effusions. Tortuous ectatic aorta. Calcification at the aortic knob. Mild cardiomegaly. Degenerative changes in the spine and shoulders. Suggestion of calcific tendinopathy of the right proximal humerus.
[2016-09-14] MEDS ORDERED: Potassium Chloride 20 mEq ER Tab PO ONE (10:00)
[2016-09-14] MEDS: Pantoprazole 40 mg Susp UD PO SCH (10:39)
[2016-09-14] MEDS: Aritificial Tears (15ml) OU SCH ×4 (10:40→22:39)
--- NOTE | 2016-09-14 15:33 | CP.PCM.PN ---
Subjective - Date & Time of Evaluation Date of Evaluation: 09/14/16 Time of Evaluation: 15:32 - Subjective Subjective: pt seen and examined,, follow up consult is dictated #[id number] hd on thursday Objective - Vital Signs/Intake and Output Vital Signs (last 24 hours): Temp Pulse Resp BP Pulse Ox 98.2 F 85 17 169/93 H 100 09/14/16 12:00 09/14/16 14:43 09/14/16 14:43 09/14/16 14:43 09/14/16 14:43 Intake and Output: 09/14/16 09/14/16 06:59 18:59 Intake Total 420 340 Balance 420 340 - Medications Medications: Current Medications Acetaminophen (Tylenol 325mg Tab) 650 mg PO Q6 PRN PRN Reason: Fever >100.4 F Artificial Tears (Artificial Tears) 0 ml OU QID [facility] Last Admin: 09/14/16 14:24 Dose: 2 drop Epoetin Herve (Procrit) 10,000 unit IV TTS [facility] Last Admin: 09/13/16 13:25 Dose: 10,000 unit Heparin Sodium (Porcine) (Heparin) 3,400 units IVP TTS [facility] Last Admin: 09/13/16 14:35 Dose: 3,400 units Heparin Sodium (Porcine) (Heparin) 5,000 units SC Q12H [facility] Last Admin: 09/14/16 10:39 Dose: 5,000 units Propofol (Diprivan) 1,000 mg in 100 mls @ 2.16 mls/hr IV .Q24H PRN; Protocol; 5 MCG/KG/MIN PRN Reason: TITRATE PER MD ORDER Last Titration: 09/13/16 09:00 Dose: Infused Pantoprazole Sodium (Protonix Susp) 40 mg PO DAILY [facility] Last Admin: 09/14/16 10:39 Dose: 40 mg Valacyclovir HCl (Valtrex) 500 mg PO DAILY [facility] Last Admin: 09/14/16 10:39 Dose: 500 mg - Labs Labs: 09/14/16 06:31 09/14/16 06:31 PT 11.1 SECONDS (9.7-12.2) 09/12/16 20:17 INR 1.0 09/12/16 20:17 APTT 25 SECONDS (21-34) 09/12/16 20:17
--- NOTE | 2016-09-14 16:31 | CP.CCUPN ---
CCU Subjective - Physician Review Events Since Last Encounter (Free Text): 09/14/16 16:26 alert and following commands, very weak. CCU Objective - Vital Signs / Intake & Output Vital Signs (Last 4 hours): Vital Signs Pulse Resp BP Pulse Ox 09/14/16 14:43 85 17 169/93 H 100 09/14/16 14:28 87 19 172/93 H 100 09/14/16 14:25 89 19 169/98 H 100 09/14/16 14:13 88 15 187/94 H 100 09/14/16 14:00 88 17 100 09/14/16 13:58 87 18 175/94 H 100 09/14/16 13:45 99 H 179/95 H 97 09/14/16 13:28 82 14 166/93 H 100 09/14/16 13:13 84 14 172/85 H 99 09/14/16 13:00 89 15 99 09/14/16 12:58 84 14 172/91 H 100 09/14/16 12:43 84 15 172/82 H 99 09/14/16 12:28 86 14 179/93 H 99 Intake and Output (Last 8hrs): Intake & Output 09/14/16 09/14/16 09/14/16 06:59 14:59 22:59 Intake Total 280 340 Balance 280 340 Weight 148 lb Intake: Tube Feeding 280 280 Other 60 Other: # Bowel Movements 1 - Physical Exam Head: Positive for: Atraumatic, Normocephalic Extroacular Muscles: Negative for: EOMI Mouth: Positive for: Moist Mucous Membranes Respiratory/Chest: Positive for: Wheezes, Rales, Other (intubated). Negative for: Clear to Auscultation Cardiovascular: Positive for: Normal S1, S2, Tachycardic Abdomen: Positive for: Normal Bowel Sounds Upper Extremity: Negative for: Edema, Swelling Lower Extremity: Positive for: Edema. Negative for: NORMAL PULSES (diminished) Neurological: Positive for: CN II-XII Intact. Negative for: GCS=15, Speech Normal Skin: Positive for: Warm, Dry, Normal Color Psychiatric: Positive for: Alert. Negative for: Oriented x 3, Normal Insight, Normal Concentration - Medications Active Medications: Active Medications Generic Name Dose Route Start Last Admin Trade Name Freq PRN Reason Stop Dose Admin Acetaminophen 650 mg 08/16/16 03:42 Tylenol 325mg Tab PO Q6 PRN Fever >100.4 F Artificial Tears 0 ml 08/16/16 14:00 09/14/16 14:24 Artificial Tears OU 2 drop QID JESSI Administration Epoetin Herve 10,000 unit 09/04/16 11:15 09/13/16 13:25 Procrit IV 10,000 unit TTS JESSI Administration Heparin Sodium (Porcine) 3,400 units 09/09/16 11:02 09/13/16 14:35 Heparin IVP 3,400 units TTS JESSI Administration Heparin Sodium (Porcine) 5,000 units 09/11/16 22:00 09/14/16 10:39 Heparin SC 5,000 units Q12H JESSI Administration Propofol 1,000 mg in 100 mls @ 2.16 mls/hr 09/11/16 16:17 09/13/16 09:00 Diprivan IV Infused .Q24H PRN Titration TITRATE PER MD ORDER Protocol 5 MCG/KG/MIN Pantoprazole Sodium 40 mg 09/12/16 10:00 09/14/16 10:39 Protonix Susp PO 40 mg DAILY JESSI Administration Valacyclovir HCl 500 mg 08/16/16 10:00 09/14/16 10:39 Valtrex PO 500 mg DAILY JESSI Administration - Patient Studies Lab Studies: Lab Studies 09/14/16 09/14/16 09/14/16 Range/Units 11:31 06:31 06:31 WBC 9.9 (4.8-10.8) K/uL RBC 3.05 L (3.80-5.20) Mil/uL Hgb 9.6 L (11.0-16.0) g/dL Hct 29.9 L (34.0-47.0) % MCV 98.0 (81.0-99.0) fL MCH 31.6 H (27.0-31.0) pg MCHC 32.2 L (33.0-37.0) g/dL RDW 17.9 H (11.5-14.5) % Plt Count 114 L D (130-400) K/uL MPV 10.3 (7.2-11.7) fL Neut % (Auto) 84.1 H (50.0-75.0) % Lymph % (Auto) 7.2 L (20.0-40.0) % [place] % (Auto) 7.4 (0.0-10.0) % Eos % (Auto) 0.9 (0.0-4.0) % Baso % (Auto) 0.4 (0.0-2.0) % Neut # 8.3 H (1.8-7.0) K/uL Lymph # 0.7 L (1.0-4.3) K/uL [place] # 0.7 (0.0-0.8) K/uL Eos # 0.1 (0.0-0.7) K/uL Baso # 0.0 (0.0-0.2) K/uL Neutrophils % (Manual) 84 H (50-75) % Band Neutrophils % 2 (0-2) % Lymphocytes % (Manual) 8 L (20-40) % Monocytes % (Manual) 6 (0-10) % Nucleated RBC % 1 H (0-0) % Platelet Estimate Slightly decreased L (NORMAL) Polychromasia Slight Hypochromasia (manual) Slight Poikilocytosis (manual Slight Anisocytosis (manual) Slight Macrocytosis (manual) Slight Ovalocytes Slight Puncture Site pCO2 (35-45) mm/Hg pO2 (80-100) mm/Hg HCO3 (21-28) mmol/L ABG pH (7.35-7.45) ABG Total CO2 (22-28) mmol/L ABG O2 Saturation (95-98) % ABG Base Excess (-2.0-3.0) mmol/L ABG Hemoglobin (11.7-17.4) g/dL ABG Carboxyhemoglobin (0.5-1.5) % POC ABG HHb (Measured) (0.0-5.0) % ABG Methemoglobin (0.0-3.0) % Braxton Test A-a O2 Difference mm/Hg Respiratory Index Hgb O2 Saturation (95.0-98.0) % Vent Mode Mechanical Rate FiO2 % Tidal Volume PEEP Sodium 137 (132-148) mmol/L Potassium 3.4 L (3.6-5.2) mmol/L Chloride 95 L (98-107) mmol/L Carbon Dioxide 32 H (22-30) mmol/L Anion Gap 13 (10-20) BUN 23 H (7-17) mg/dL Creatinine 2.3 H (0.7-1.2) MG/DL Est GFR ( Amer) 25 Est GFR (Non-Af Amer) 20 POC Glucose (mg/dL) 187 H (65-110) mg/dL Random Glucose 142 H (65-105) mg/dL Calcium 7.5 L (8.6-10.4) mg/dl Total Bilirubin 0.4 (0.2-1.3) mg/dL AST 28 (14-36) U/L ALT 46 (9-52) U/L Alkaline Phosphatase 162 H D (38-126) U/L Total Protein 5.0 L (6.3-8.3) g/dL Albumin 2.6 L (3.5-5.0) g/dL Globulin 2.3 (2.2-3.9) gm/dL Albumin/Globulin Ratio 1.1 (1.0-2.1) 09/14/16 09/13/16 09/13/16 Range/Units 05:31 23:16 17:29 WBC (4.8-10.8) K/uL RBC (3.80-5.20) Mil/uL Hgb (11.0-16.0) g/dL Hct (34.0-47.0) % MCV (81.0-99.0) fL MCH (27.0-31.0) pg MCHC (33.0-37.0) g/dL RDW (11.5-14.5) % Plt Count (130-400) K/uL MPV (7.2-11.7) fL Neut % (Auto) (50.0-75.0) % Lymph % (Auto) (20.0-40.0) % [place] % (Auto) (0.0-10.0) % Eos % (Auto) (0.0-4.0) % Baso % (Auto) (0.0-2.0) % Neut # (1.8-7.0) K/uL Lymph # (1.0-4.3) K/uL [place] # (0.0-0.8) K/uL Eos # (0.0-0.7) K/uL Baso # (0.0-0.2) K/uL Neutrophils % (Manual) (50-75) % Band Neutrophils % (0-2) % Lymphocytes % (Manual) (20-40) % Monocytes % (Manual) (0-10) % Nucleated RBC % (0-0) % Platelet Estimate (NORMAL) Polychromasia Hypochromasia (manual) Poikilocytosis (manual Anisocytosis (manual) Macrocytosis (manual) Ovalocytes Puncture Site Rr pCO2 45 (35-45) mm/Hg pO2 85 (80-100) mm/Hg HCO3 34.7 H (21-28) mmol/L ABG pH 7.52 H (7.35-7.45) ABG Total CO2 38.1 H (22-28) mmol/L ABG O2 Saturation 99.1 H (95-98) % ABG Base Excess 12.5 H (-2.0-3.0) mmol/L ABG Hemoglobin 9.7 L (11.7-17.4) g/dL ABG Carboxyhemoglobin 2.2 H (0.5-1.5) % POC ABG HHb (Measured) 0.9 (0.0-5.0) % ABG Methemoglobin 1.0 (0.0-3.0) % Braxton Test Pos A-a O2 Difference 429.0 mm/Hg Respiratory Index 5.0 Hgb O2 Saturation 95.9 (95.0-98.0) % Vent Mode Prvc Mechanical Rate 14 FiO2 80.0 % Tidal Volume 450 PEEP 5 Sodium (132-148) mmol/L Potassium (3.6-5.2) mmol/L Chloride (98-107) mmol/L Carbon Dioxide (22-30) mmol/L Anion Gap (10-20) BUN (7-17) mg/dL Creatinine (0.7-1.2) MG/DL Est GFR ( Amer) Est GFR (Non-Af Amer) POC Glucose (mg/dL) 185 H 189 H (65-110) mg/dL Random Glucose (65-105) mg/dL Calcium (8.6-10.4) mg/dl Total Bilirubin (0.2-1.3) mg/dL AST (14-36) U/L ALT (9-52) U/L Alkaline Phosphatase (38-126) U/L Total Protein (6.3-8.3) g/dL Albumin (3.5-5.0) g/dL Globulin (2.2-3.9) gm/dL Albumin/Globulin Ratio (1.0-2.1) Laboratory Results - last 24 hr 09/13/16 09/13/16 09/14/16 17:29 23:16 05:31 WBC RBC Hgb Hct MCV MCH MCHC RDW Plt Count MPV Neut % (Auto) Lymph % (Auto) [place] % (Auto) Eos % (Auto) Baso % (Auto) Neut # Lymph # [place] # Eos # Baso # Neutrophils % (Manual) Band Neutrophils % Lymphocytes % (Manual) Monocytes % (Manual) Nucleated RBC % Platelet Estimate Polychromasia Hypochromasia (manual) Poikilocytosis (manual Anisocytosis (manual) Macrocytosis (manual) Ovalocytes Puncture Site Rr pCO2 45 pO2 85 HCO3 34.7 H ABG pH 7.52 H ABG Total CO2 38.1 H ABG O2 Saturation 99.1 H ABG Base Excess 12.5 H ABG Hemoglobin 9.7 L ABG Carboxyhemoglobin 2.2 H POC ABG HHb (Measured) 0.9 ABG Methemoglobin 1.0 Braxton Test Pos A-a O2 Difference 429.0 Respiratory Index 5.0 Hgb O2 Saturation 95.9 Vent Mode Prvc Mechanical Rate 14 FiO2 80.0 Tidal Volume 450 PEEP 5 Sodium Potassium Chloride Carbon Dioxide Anion Gap BUN Creatinine Est GFR ( Amer) Est GFR (Non-Af Amer) POC Glucose (mg/dL) 189 H 185 H Random Glucose Calcium Total Bilirubin AST ALT Alkaline Phosphatase Total Protein Albumin Globulin Albumin/Globulin Ratio 09/14/16 09/14/16 09/14/16 06:31 06:31 11:31 WBC 9.9 RBC 3.05 L Hgb 9.6 L Hct 29.9 L MCV 98.0 MCH 31.6 H MCHC 32.2 L RDW 17.9 H Plt Count 114 L D MPV 10.3 Neut % (Auto) 84.1 H Lymph % (Auto) 7.2 L [place] % (Auto) 7.4 Eos % (Auto) 0.9 Baso % (Auto) 0.4 Neut # 8.3 H Lymph # 0.7 L [place] # 0.7 Eos # 0.1 Baso # 0.0 Neutrophils % (Manual) 84 H Band Neutrophils % 2 Lymphocytes % (Manual) 8 L Monocytes % (Manual) 6 Nucleated RBC % 1 H Platelet Estimate Slightly decreased L Polychromasia Slight Hypochromasia (manual) Slight Poikilocytosis (manual Slight Anisocytosis (manual) Slight Macrocytosis (manual) Slight Ovalocytes Slight Puncture Site pCO2 pO2 HCO3 ABG pH ABG Total CO2 ABG O2 Saturation ABG Base Excess ABG Hemoglobin ABG Carboxyhemoglobin POC ABG HHb (Measured) ABG Methemoglobin Braxton Test A-a O2 Difference Respiratory Index Hgb O2 Saturation Vent Mode Mechanical Rate FiO2 Tidal Volume PEEP Sodium 137 Potassium 3.4 L Chloride 95 L Carbon Dioxide 32 H Anion Gap 13 BUN 23 H Creatinine 2.3 H Est GFR ( Amer) 25 Est GFR (Non-Af Amer) 20 POC Glucose (mg/dL) 187 H Random Glucose 142 H Calcium 7.5 L Total Bilirubin 0.4 AST 28 ALT 46 Alkaline Phosphatase 162 H D Total Protein 5.0 L Albumin 2.6 L Globulin 2.3 Albumin/Globulin Ratio 1.1 Review of Systems - Review of Systems Systems not reviewed;Unavailable: Intubated Critical Care Progress Note - Nutrition Nutrition: Nutrition Category Date Time Status Renal Diet [DIET] Diets 08/16/16 Dinner Active Assessment/Plan (1) Pulmonary edema Assessment and plan: 80-year-old female with past medical history of systolic CHF (EF-10%). 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 Now in recurrent respiratory failure from flash pulmonary edema s/p plasma exchange. Intubated and brought to ICU for dialysis to remove fluid (). Neuro: off all sedation, following commands. Pulm: chest x-ray shows large right pleural effusion, thoracentesis via IR tomorrow. Patient tolerating pressure support trials CV: Hemodynamically stable Hem: Thrombocytopenia improved. completed this third most recent trial of plasmapheresis. f/u HIT antibody. 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 continue Procrit for anemia of chronic disease. Renal: ESRD on HD (/). patient should probably be dialyzed after thoracentesis tomorrow. Endo: No acute issues GI: Nothing by mouth, tube feedings, Nepro at 40. ID: No acute issues DVT proph - heparin subcutaneous GI proph - Protonix by mouth sharp for strict I/O's during acute illness Code status - full code Critical Care Time spent 35 minutes Multi-disciplinary rounds were performed with house staff, nursing, speech therapy, respiratory therapy, pharmacy and nutrition with integrated input from the primary team/attending and other consulting services. The documented time is cumulative and includes review of patient data/exams/labs/chart review and examination of the patient on rounds and throughout the day; time is exclusive of any procedures or teaching time. Current Visit: Yes Status: Acute
--- NOTE | 2016-09-14 22:12 | CP.PCM.PN ---
Subjective - Date & Time of Evaluation Date of Evaluation: 09/14/16 Time of Evaluation: 11:40 - Subjective Subjective: clinically same Objective - Vital Signs/Intake and Output Vital Signs (last 24 hours): Temp Pulse Resp BP Pulse Ox 98.7 F 79 16 149/75 100 09/14/16 20:00 09/14/16 21:28 09/14/16 21:28 09/14/16 21:28 09/14/16 21:28 Intake and Output: 09/14/16 09/15/16 18:59 06:59 Intake Total 500 120 Output Total 0 Balance 500 120 - Medications Medications: Current Medications Acetaminophen (Tylenol 325mg Tab) 650 mg PO Q6 PRN PRN Reason: Fever >100.4 F Artificial Tears (Artificial Tears) 0 ml OU QID [facility] Last Admin: 09/14/16 17:40 Dose: 2 drop Epoetin Herve (Procrit) 10,000 unit IV TTS [facility] Last Admin: 09/13/16 13:25 Dose: 10,000 unit Heparin Sodium (Porcine) (Heparin) 3,400 units IVP TTS [facility] Last Admin: 09/13/16 14:35 Dose: 3,400 units Propofol (Diprivan) 1,000 mg in 100 mls @ 2.16 mls/hr IV .Q24H PRN; Protocol; 5 MCG/KG/MIN PRN Reason: TITRATE PER MD ORDER Last Titration: 09/13/16 09:00 Dose: Infused Pantoprazole Sodium (Protonix Susp) 40 mg PO DAILY [facility] Last Admin: 09/14/16 10:39 Dose: 40 mg Valacyclovir HCl (Valtrex) 500 mg PO DAILY [facility] Last Admin: 09/14/16 10:39 Dose: 500 mg - Labs Labs: 09/14/16 06:31 09/14/16 06:31 PT 11.1 SECONDS (9.7-12.2) 09/12/16 20:17 INR 1.0 09/12/16 20: APTT 25 SECONDS (21-34) 09/12/16 20:17 - Constitutional Appears: Well - Head Exam Head Exam: ATRAUMATIC, NORMAL INSPECTION, NORMOCEPHALIC - Eye Exam Eye Exam: EOMI, Normal appearance, PERRL Pupil Exam: NORMAL ACCOMODATION, PERRL - ENT Exam ENT Exam: Mucous Membranes Moist, Normal Exam - Neck Exam Neck Exam: Full ROM, Normal Inspection. absent: Lymphadenopathy - Respiratory Exam Respiratory Exam: Decreased Breath Sounds - Cardiovascular Exam Cardiovascular Exam: REGULAR RHYTHM, +S1, +S2. absent: Murmur - GI/Abdominal Exam GI & Abdominal Exam: Soft, Diminished Bowel Sounds - Rectal Exam Rectal Exam: Deferred Assessment and Plan (1) Cardiac dysrhythmia Status: Acute (2) ESRD (end stage renal disease) on dialysis Status: Acute (3) Pulmonary edema Status: Acute (4) MARCO (acute kidney injury) Status: Acute (5) Acute respiratory failure requiring reintubation Status: Acute (6) Arthritis Status: Acute (7) CHF (congestive heart failure) Status: Acute (8) Dehydration Status: Acute (9) Dehydration Status: Acute (10) Diverticulosis Status: Acute (11) Elevated CEA Status: Acute (12) Hypertension Status: Acute (13) Inguinal lymphadenopathy Status: Acute (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
--- NOTE | 2016-09-14 22:22 | CP.PCM.PN ---
Subjective - Date & Time of Evaluation Date of Evaluation: 09/13/16 Time of Evaluation: 16:00 - Subjective Subjective: Vented, family at bedside Objective - Vital Signs/Intake and Output Vital Signs (last 24 hours): Temp Pulse Resp BP Pulse Ox 98.7 F 79 16 149/75 100 09/14/16 20:00 09/14/16 21:28 09/14/16 21:28 09/14/16 21:28 09/14/16 21:28 Intake and Output: 09/14/16 09/15/16 18:59 06:59 Intake Total 500 120 Output Total 0 Balance 500 120 - Medications Medications: Current Medications Acetaminophen (Tylenol 325mg Tab) 650 mg PO Q6 PRN PRN Reason: Fever >100.4 F Artificial Tears (Artificial Tears) 0 ml OU QID [facility] Last Admin: 09/14/16 17:40 Dose: 2 drop Epoetin Herve (Procrit) 10,000 unit IV TTS [facility] Last Admin: 09/13/16 13:25 Dose: 10,000 unit Heparin Sodium (Porcine) (Heparin) 3,400 units IVP TTS [facility] Last Admin: 09/13/16 14:35 Dose: 3,400 units Propofol (Diprivan) 1,000 mg in 100 mls @ 2.16 mls/hr IV .Q24H PRN; Protocol; 5 MCG/KG/MIN PRN Reason: TITRATE PER MD ORDER Last Titration: 09/13/16 09:00 Dose: Infused Pantoprazole Sodium (Protonix Susp) 40 mg PO DAILY [facility] Last Admin: 09/14/16 10:39 Dose: 40 mg Valacyclovir HCl (Valtrex) 500 mg PO DAILY [facility] Last Admin: 09/14/16 10:39 Dose: 500 mg - Labs Labs: 09/14/16 06:31 09/14/16 06:31 PT 11.1 SECONDS (9.7-12.2) 09/12/16 20:17 INR 1.0 09/12/16 20:17 APTT 25 SECONDS (21-34) 09/12/16 20:17 - Head Exam Head Exam: ATRAUMATIC - Eye Exam Eye Exam: Normal appearance - ENT Exam ENT Exam: Mucous Membranes Dry - Respiratory Exam Respiratory Exam: Decreased Breath Sounds - Cardiovascular Exam Cardiovascular Exam: +S1, +S2 - GI/Abdominal Exam GI & Abdominal Exam: Normal Bowel Sounds - Extremities Exam Extremities Exam: Pedal Edema Assessment and Plan (1) TTP (thrombotic thrombocytopenic purpura) Assessment & Plan: 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
--- NOTE | 2016-09-15 02:15 | PN ---
FOLLOWUP RENAL CONSULTATION DATE: 09/14/2016 The patient is located in ICU, bed 1. REQUESTED BY: Kavon Ureña MD REASON FOR FOLLOWUP: Renal failure and continuation of hemodialysis. SUBJECTIVE: Mrs. Denise Garcia is an 80-year-old elderly female with history of hypertension, rheumatoid arthritis, cardiomyopathy, CHF, renal failure, thrombocytopenia, diagnosed as TTP and started on plasmapheresis. The patient has a recurrence of TTP x2 and just completed third course of plasmapheresis. The patient is intubated after the third treatment of plasmapheresis due to respiratory failure. The patient still remains intubated and arousable. PHYSICAL EXAMINATION GENERAL: Mrs. Denise Garcia is an 80 years old elderly female on ventilatory, awake, not in distress.. VITAL SIGNS: As follows: Blood pressure 163/86, pulse 82, respirations 18, temperature 97.8, saturation 100%. Height 5 feet and 2 inches and weight is 148 pounds. HEENT: Pupils normal and reactive to light and accommodation. Conjunctivae pink. Sclerae anicteric. Tongue is moist. NECK: Trachea is midline. LUNGS: Symmetrical on both sides. Bilateral breath sounds present, occasional basal crackles present. CVS: [place] at the fifth intercostal space, midclavicular line. S1 and S2 audible. No murmur or gallop. ABDOMEN: Normal in appearance. Soft and tympanic. No guarding or rigidity. No hepatosplenomegaly. PUBLIC HEALTH NUTRITIONIST: The patient is on ventilator, awake. Sensory and motor system is grossly within normal limits. EXTREMITIES: No cyanosis, no clubbing, and no edema. CURRENT MEDICATIONS: Include as follows: Artificial tears, propofol IV, and subcutaneous heparin 5000 q. 12 hours and also heparin 3400 units IV three times a week in the catheter post dialysis, Epogen 10,000 units three times a weeks Thursday, and Thursday, Protonix 40 mg daily, Tylenol and valacyclovir 500 mg p.o. daily. LABORATORY DATA: As of 09/14/2016, WBC 9.9, hemoglobin, 9.6, hematocrit is 29.9, platelets 114, neutrophils 84, bands 2, lymph 8, mono 6, nucleoid RBC 1. ABG; pH 7.52, pCO2 45, pO2 85, bicarb is 34.7, saturation 99.1. On vent setting, AC 14, 450 tidal volume, FiO2 80%, PEEP of 5. Sodium 137, potassium 3.4, chloride 95, CO2 of 32. BUN 23, creatinine 2.3, and glucose 142, calcium 7.5, total bilirubin 0.4. AST 28, ALT 46, alkaline phosphatase 162. Total protein 5, albumin is 2.6. Stool C. difficile toxin is negative as of 09/13/2016. Accu-Checks 187 and 162. Chest x-ray as of 09/14/2016, impression; mild cardiomegaly, degenerative changes in the spine and shoulder. Limited study as the endotracheal tube tip is not well visualized. Obscured by overlying external electronic device and NG tube ending into the stomach. Other lines and tubes are in stable position. Diffuse increased interstitial lung markings. opacities in the mid to lower lung zones with suggestion of a small bilateral pleural effusions. Tortuous ectatic aorta, calcification of the aortic notch, and mild cardiomegaly, degenerative changes in the spine and shoulder. Suggestion of calcific tendinopathy of the right proximal humerus. In summary, Mrs. Denise Garcia is an 80-year-old elderly female with hypertension, rheumatoid arthritis, cardiomegaly, cardiomyopathy, congestive heart failure, respiratory failure status post intubation, and also no renal failure, on hemodialysis three times a week. This week received four times. Remains intubated. 1. Renal failure, most likely secondary to endstage renal disease, now cannot rule out thrombotic microangiopathy secondary to thrombotic thrombocytopenic purpura. The patient's family refused kidney biopsy in the past. 2. Hypertension. Blood pressure is improving. Continue her current medication and consider beta blockers, metoprolol 12.5 mg p.o. b.i.d. and Norvasc 2.5 mg titrate as needed. 3. 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 Rule out heparin and thrombocytopenia also. Due to slow response also plasmapheresis. 4. Respiratory failure. 5. Rule out pneumonia versus congestive heart failure. Consider to rule out pneumonia, rule out PCP. We will follow with you. 6. Hemodialysis will be on Thursday, unless requested by ICU due to respiratory failure. Thank you for allowing me to participate in our patient's care. Horacio Graham MD [facility] # [id number]
[2016-09-15 05:39] LABS: ABG ALLEN TEST POS; ABG MECHANICAL RATE 14; ARTERIAL BLOOD GAS MODE PRVC; ATERIAL BLOOD GAS PEEP 10; CARBOXYHEMOGLOBIN 2.1 % (0.5-1.5); DRAW SITE RR; HHB 0.6 % (0.0-5.0); METHEMOGLOBIN 1.3 % (0.0-3.0)
[2016-09-15 06:24] LABS: BASO % 0.5 % (0.0-2.0); EOS # 0.4 K/uL (0.0-0.7); EOS % 3.7 % (0.0-4.0); HEMATOCRIT 33.1 % (34.0-47.0); LYMPH # 0.6 K/uL (1.0-4.3); LYMPH % 6.4 % (20.0-40.0); MEAN CELL VOLUME 98.6 fL (81.0-99.0); MEAN CORPUSCULAR HEMOGLOBIN 30.9 pg (27.0-31.0); MEAN CORPUSCULAR HGB CONC 31.3 g/dL (33.0-37.0); MEAN PLATELET VOLUME 10.8 fL (7.2-11.7); MONO # 0.6 K/uL (0.0-0.8); MONO % 5.8 % (0.0-10.0); NRBC % 0.3 % (0.0-2.0); PLATELET COUNT 138 K/uL (130-400); RED CELL DISTRIBUTION WIDTH 18.3 % (11.5-14.5); WHITE BLOOD COUNT 9.7 K/uL (4.8-10.8)
[2016-09-15 07:03] LABS: ALB/GLOB RATIO 1.1 (1.0-2.1); BILIRUBIN,TOTAL 0.5 mg/dL (0.2-1.3); CALCIUM 7.7 mg/dl (8.6-10.4); PHOSPHOROUS 3.2 mg/dL (2.5-4.5); TOTAL PROTEIN 5.2 g/dL (6.3-8.3)
[2016-09-15 07:20] LABS: POTASSIUM 3.9 mmol/L (3.6-5.2)
[2016-09-15 08:50] LABS: EOSINOPHIL 1 % (0-4); NEUTROPHIL 90 % (50-75); TOTAL CELLS COUNTED 100
[2016-09-15 08:51] LABS: LARGE PLATELETS PRESENT
--- NOTE | 2016-09-15 08:59 | RAD ---
Chest x-ray single frontal view History: Pleural effusion. Comparison: 09/14/2016 Findings: Lines and tubes stable position. Multiple overlying external wires, tubes, and devices. Mild venous congestion. Bilateral hilar prominence. Patchy consolidative changes at the right upper to mid lung zone. Bibasilar airspace opacities with small bilateral pleural effusions. Cardiomegaly. Degenerative changes in the spine and shoulders. Impression: No significant interval change.
[2016-09-15] MEDS: Pantoprazole 40 mg Susp UD PO SCH (09:46)
[2016-09-15] MEDS: Aritificial Tears (15ml) OU SCH ×4 (09:46→22:05)
--- NOTE | 2016-09-15 11:10 | CP.CCUPN ---
<Carlota Laughlin - Last Filed: 09/15/16 10:57> CCU Subjective - Physician Review Subjective (Free Text): Patient was seen and examined at bedside in the morning. Patient is intubated and unable to respond to questions and review of systems. 09/15/16 10:57 CCU Objective - Vital Signs / Intake & Output Vital Signs (Last 4 hours): Vital Signs Temp Pulse Resp BP Pulse Ox 09/15/16 09:03 102 H 9 L 147/78 94 L 09/15/16 09:00 107 H 22 96 09/15/16 08:33 104 H 21 138/96 H 97 09/15/16 08:02 100 H 11 L 99 09/15/16 08:00 97.9 F 101 H 14 99 09/15/16 07:03 96 H 18 141/99 H 97 09/15/16 07:00 97 H 14 98 Intake and Output (Last 8hrs): Intake & Output 09/14/16 09/15/16 09/15/16 22:59 06:59 14:59 Intake Total 320 320 120 Output Total 0 0 0 Balance 320 320 120 Intake: Tube Feeding 320 320 120 Output: Urine 0 0 0 Urine, Voided 0 0 0 Other: # Bowel Movements 0 0 1 - Physical Exam Head: Positive for: Atraumatic, Normocephalic Extroacular Muscles: Negative for: EOMI Mouth: Positive for: Moist Mucous Membranes Respiratory/Chest: Positive for: Decreased Breath Sounds, Other (intubated). Negative for: Clear to Auscultation, Wheezes Cardiovascular: Positive for: Normal S1, S2, Tachycardic Abdomen: Positive for: Normal Bowel Sounds Upper Extremity: Negative for: Edema, Swelling Lower Extremity: Positive for: Edema. Negative for: NORMAL PULSES (diminished) Neurological: Negative for: GCS=15, Speech Normal Skin: Positive for: Warm, Dry, Normal Color Psychiatric: Negative for: Alert, Oriented x 3, Normal Insight, Normal Concentration - Medications Active Medications: Active Medications Generic Name Dose Route Start Last Admin Trade Name Freq PRN Reason Stop Dose Admin Acetaminophen 650 mg 08/16/16 03:42 Tylenol 325mg Tab PO Q6 PRN Fever >100.4 F Artificial Tears 0 ml 08/16/16 14:00 09/15/16 09:46 Artificial Tears OU 1 drop QID JESSI Administration Epoetin Herve 10,000 unit 09/04/16 11:15 09/13/16 13:25 Procrit IV 10,000 unit TTS JESSI Administration Heparin Sodium (Porcine) 3,400 units 09/09/16 11:02 09/13/16 14:35 Heparin IVP 3,400 units TTS JESSI Administration Propofol 1,000 mg in 100 mls @ 2.16 mls/hr 09/11/16 16:17 09/13/16 09:00 Diprivan IV Infused .Q24H PRN Titration TITRATE PER MD ORDER Protocol 5 MCG/KG/MIN Pantoprazole Sodium 40 mg 09/12/16 10:00 09/15/16 09:46 Protonix Susp PO 40 mg DAILY JESSI Administration Valacyclovir HCl 500 mg 08/16/16 10:00 09/15/16 09:45 Valtrex PO 500 mg DAILY JESSI Administration - Patient Studies Lab Studies: Lab Studies 09/15/16 09/15/16 09/15/16 Range/Units 06:16 06:15 05:55 WBC 9.7 (4.8-10.8) K/uL RBC 3.35 L (3.80-5.20) Mil/uL Hgb 10.4 L (11.0-16.0) g/dL Hct 33.1 L (34.0-47.0) % MCV 98.6 (81.0-99.0) fL MCH 30.9 (27.0-31.0) pg MCHC 31.3 L (33.0-37.0) g/dL RDW 18.3 H (11.5-14.5) % Plt Count 138 (130-400) K/uL MPV 10.8 (7.2-11.7) fL Neut % (Auto) 83.6 H (50.0-75.0) % Lymph % (Auto) 6.4 L (20.0-40.0) % [place] % (Auto) 5.8 (0.0-10.0) % Eos % (Auto) 3.7 (0.0-4.0) % Baso % (Auto) 0.5 (0.0-2.0) % Neut # 8.1 H (1.8-7.0) K/uL Lymph # 0.6 L (1.0-4.3) K/uL [place] # 0.6 (0.0-0.8) K/uL Eos # 0.4 (0.0-0.7) K/uL Baso # 0.0 (0.0-0.2) K/uL Neutrophils % (Manual) 90 H (50-75) % Band Neutrophils % 4 H (0-2) % Lymphocytes % (Manual) 5 L (20-40) % Monocytes % (Manual) 4 (0-10) % Eosinophils % (Manual) 1 (0-4) % Platelet Estimate Normal (NORMAL) Large Platelets Present Polychromasia Slight Hypochromasia (manual) Slight Poikilocytosis (manual Slight Anisocytosis (manual) Slight Target Cells Slight Puncture Site pCO2 (35-45) mm/Hg pO2 (80-100) mm/Hg HCO3 (21-28) mmol/L ABG pH (7.35-7.45) ABG Total CO2 (22-28) mmol/L ABG O2 Saturation (95-98) % ABG Base Excess (-2.0-3.0) mmol/L ABG Hemoglobin (11.7-17.4) g/dL ABG Carboxyhemoglobin (0.5-1.5) % POC ABG HHb (Measured) (0.0-5.0) % ABG Methemoglobin (0.0-3.0) % Braxton Test A-a O2 Difference mm/Hg Respiratory Index Hgb O2 Saturation (95.0-98.0) % Vent Mode Mechanical Rate FiO2 % Tidal Volume PEEP Sodium 137 (132-148) mmol/L Potassium 3.9 (3.6-5.2) mmol/L Chloride 95 L (98-107) mmol/L Carbon Dioxide 31 H (22-30) mmol/L Anion Gap 15 (10-20) BUN 37 H (7-17) mg/dL Creatinine 3.2 H (0.7-1.2) MG/DL Est GFR ( Amer) 17 Est GFR (Non-Af Amer) 14 POC Glucose (mg/dL) 151 H (65-110) mg/dL Random Glucose 135 H (65-105) mg/dL Calcium 7.7 L (8.6-10.4) mg/dl Phosphorus 3.2 (2.5-4.5) mg/dL Total Bilirubin 0.5 (0.2-1.3) mg/dL AST 48 H D (14-36) U/L ALT 41 (9-52) U/L Alkaline Phosphatase 171 H (38-126) U/L Total Protein 5.2 L (6.3-8.3) g/dL Albumin 2.7 L (3.5-5.0) g/dL Globulin 2.5 (2.2-3.9) gm/dL Albumin/Globulin Ratio 1.1 (1.0-2.1) Hep Bs Antigen (NEGATIVE) Hep Bs Antibody (NEGATIVE) Hep B Core IgM Ab (NEGATIVE) 09/15/16 09/14/16 09/14/16 Range/Units 05:25 23:54 17:26 WBC (4.8-10.8) K/uL RBC (3.80-5.20) Mil/uL Hgb (11.0-16.0) g/dL Hct (34.0-47.0) % MCV (81.0-99.0) fL MCH (27.0-31.0) pg MCHC (33.0-37.0) g/dL RDW (11.5-14.5) % Plt Count (130-400) K/uL MPV (7.2-11.7) fL Neut % (Auto) (50.0-75.0) % Lymph % (Auto) (20.0-40.0) % [place] % (Auto) (0.0-10.0) % Eos % (Auto) (0.0-4.0) % Baso % (Auto) (0.0-2.0) % Neut # (1.8-7.0) K/uL Lymph # (1.0-4.3) K/uL [place] # (0.0-0.8) K/uL Eos # (0.0-0.7) K/uL Baso # (0.0-0.2) K/uL Neutrophils % (Manual) (50-75) % Band Neutrophils % (0-2) % Lymphocytes % (Manual) (20-40) % Monocytes % (Manual) (0-10) % Eosinophils % (Manual) (0-4) % Platelet Estimate (NORMAL) Large Platelets Polychromasia Hypochromasia (manual) Poikilocytosis (manual Anisocytosis (manual) Target Cells Puncture Site Rr pCO2 44 (35-45) mm/Hg pO2 104 H (80-100) mm/Hg HCO3 33.4 H (21-28) mmol/L ABG pH 7.51 H (7.35-7.45) ABG Total CO2 36.5 H (22-28) mmol/L ABG O2 Saturation 99.4 H (95-98) % ABG Base Excess 10.9 H (-2.0-3.0) mmol/L ABG Hemoglobin 10.5 L (11.7-17.4) g/dL ABG Carboxyhemoglobin 2.1 H (0.5-1.5) % POC ABG HHb (Measured) 0.6 (0.0-5.0) % ABG Methemoglobin 1.3 (0.0-3.0) % Braxton Test Pos A-a O2 Difference 269.0 mm/Hg Respiratory Index 2.6 Hgb O2 Saturation 96.0 (95.0-98.0) % Vent Mode Prvc Mechanical Rate 14 FiO2 60.0 % Tidal Volume 450 PEEP 10 Sodium (132-148) mmol/L Potassium (3.6-5.2) mmol/L Chloride (98-107) mmol/L Carbon Dioxide (22-30) mmol/L Anion Gap (10-20) BUN (7-17) mg/dL Creatinine (0.7-1.2) MG/DL Est GFR ( Amer) Est GFR (Non-Af Amer) POC Glucose (mg/dL) 147 H 162 H (65-110) mg/dL Random Glucose (65-105) mg/dL Calcium (8.6-10.4) mg/dl Phosphorus (2.5-4.5) mg/dL Total Bilirubin (0.2-1.3) mg/dL AST (14-36) U/L ALT (9-52) U/L Alkaline Phosphatase (38-126) U/L Total Protein (6.3-8.3) g/dL Albumin (3.5-5.0) g/dL Globulin (2.2-3.9) gm/dL Albumin/Globulin Ratio (1.0-2.1) Hep Bs Antigen (NEGATIVE) Hep Bs Antibody (NEGATIVE) Hep B Core IgM Ab (NEGATIVE) 09/14/16 09/13/16 09/13/16 Range/Units 11:31 11:42 11:42 WBC (4.8-10.8) K/uL RBC (3.80-5.20) Mil/uL Hgb (11.0-16.0) g/dL Hct (34.0-47.0) % MCV (81.0-99.0) fL MCH (27.0-31.0) pg MCHC (33.0-37.0) g/dL RDW (11.5-14.5) % Plt Count (130-400) K/uL MPV (7.2-11.7) fL Neut % (Auto) (50.0-75.0) % Lymph % (Auto) (20.0-40.0) % [place] % (Auto) (0.0-10.0) % Eos % (Auto) (0.0-4.0) % Baso % (Auto) (0.0-2.0) % Neut # (1.8-7.0) K/uL Lymph # (1.0-4.3) K/uL [place] # (0.0-0.8) K/uL Eos # (0.0-0.7) K/uL Baso # (0.0-0.2) K/uL Neutrophils % (Manual) (50-75) % Band Neutrophils % (0-2) % Lymphocytes % (Manual) (20-40) % Monocytes % (Manual) (0-10) % Eosinophils % (Manual) (0-4) % Platelet Estimate (NORMAL) Large Platelets Polychromasia Hypochromasia (manual) Poikilocytosis (manual Anisocytosis (manual) Target Cells Puncture Site pCO2 (35-45) mm/Hg pO2 (80-100) mm/Hg HCO3 (21-28) mmol/L ABG pH (7.35-7.45) ABG Total CO2 (22-28) mmol/L ABG O2 Saturation (95-98) % ABG Base Excess (-2.0-3.0) mmol/L ABG Hemoglobin (11.7-17.4) g/dL ABG Carboxyhemoglobin (0.5-1.5) % POC ABG HHb (Measured) (0.0-5.0) % ABG Methemoglobin (0.0-3.0) % Braxton Test A-a O2 Difference mm/Hg Respiratory Index Hgb O2 Saturation (95.0-98.0) % Vent Mode Mechanical Rate FiO2 % Tidal Volume PEEP Sodium (132-148) mmol/L Potassium (3.6-5.2) mmol/L Chloride (98-107) mmol/L Carbon Dioxide (22-30) mmol/L Anion Gap (10-20) BUN (7-17) mg/dL Creatinine (0.7-1.2) MG/DL Est GFR ( Amer) Est GFR (Non-Af Amer) POC Glucose (mg/dL) 187 H (65-110) mg/dL Random Glucose (65-105) mg/dL Calcium (8.6-10.4) mg/dl Phosphorus (2.5-4.5) mg/dL Total Bilirubin (0.2-1.3) mg/dL AST (14-36) U/L ALT (9-52) U/L Alkaline Phosphatase (38-126) U/L Total Protein (6.3-8.3) g/dL Albumin (3.5-5.0) g/dL Globulin (2.2-3.9) gm/dL Albumin/Globulin Ratio (1.0-2.1) Hep Bs Antigen Negative (NEGATIVE) Hep Bs Antibody Positive (NEGATIVE) Hep B Core IgM Ab Negative (NEGATIVE) Laboratory Results - last 24 hr 09/13/16 09/13/16 09/14/16 11:42 11:42 11:31 WBC RBC Hgb Hct MCV MCH MCHC RDW Plt Count MPV Neut % (Auto) Lymph % (Auto) [place] % (Auto) Eos % (Auto) Baso % (Auto) Neut # Lymph # [place] # Eos # Baso # Neutrophils % (Manual) Band Neutrophils % Lymphocytes % (Manual) Monocytes % (Manual) Eosinophils % (Manual) Platelet Estimate Large Platelets Polychromasia Hypochromasia (manual) Poikilocytosis (manual Anisocytosis (manual) Target Cells Puncture Site pCO2 pO2 HCO3 ABG pH ABG Total CO2 ABG O2 Saturation ABG Base Excess ABG Hemoglobin ABG Carboxyhemoglobin POC ABG HHb (Measured) ABG Methemoglobin Braxton Test A-a O2 Difference Respiratory Index Hgb O2 Saturation Vent Mode Mechanical Rate FiO2 Tidal Volume PEEP Sodium Potassium Chloride Carbon Dioxide Anion Gap BUN Creatinine Est GFR ( Amer) Est GFR (Non-Af Amer) POC Glucose (mg/dL) 187 H Random Glucose Calcium Phosphorus Total Bilirubin AST ALT Alkaline Phosphatase Total Protein Albumin Globulin Albumin/Globulin Ratio Hep Bs Antigen Negative Hep Bs Antibody Positive Hep B Core IgM Ab Negative 09/14/16 09/14/16 09/15/16 17:26 23:54 05:25 WBC RBC Hgb Hct MCV MCH MCHC RDW Plt Count MPV Neut % (Auto) Lymph % (Auto) [place] % (Auto) Eos % (Auto) Baso % (Auto) Neut # Lymph # [place] # Eos # Baso # Neutrophils % (Manual) Band Neutrophils % Lymphocytes % (Manual) Monocytes % (Manual) Eosinophils % (Manual) Platelet Estimate Large Platelets Polychromasia Hypochromasia (manual) Poikilocytosis (manual Anisocytosis (manual) Target Cells Puncture Site Rr pCO2 44 pO2 104 H HCO3 33.4 H ABG pH 7.51 H ABG Total CO2 36.5 H ABG O2 Saturation 99.4 H ABG Base Excess 10.9 H ABG Hemoglobin 10.5 L ABG Carboxyhemoglobin 2.1 H POC ABG HHb (Measured) 0.6 ABG Methemoglobin 1.3 Braxton Test Pos A-a O2 Difference 269.0 Respiratory Index 2.6 Hgb O2 Saturation 96.0 Vent Mode Prvc Mechanical Rate 14 FiO2 60.0 Tidal Volume 450 PEEP 10 Sodium Potassium Chloride Carbon Dioxide Anion Gap BUN Creatinine Est GFR ( Amer) Est GFR (Non-Af Amer) POC Glucose (mg/dL) 162 H 147 H Random Glucose Calcium Phosphorus Total Bilirubin AST ALT Alkaline Phosphatase Total Protein Albumin Globulin Albumin/Globulin Ratio Hep Bs Antigen Hep Bs Antibody Hep B Core IgM Ab 09/15/16 09/15/16 09/15/16 05:55 06:15 06:16 WBC 9.7 RBC 3.35 L Hgb 10.4 L Hct 33.1 L MCV 98.6 MCH 30.9 MCHC 31.3 L RDW 18.3 H Plt Count 138 MPV 10.8 Neut % (Auto) 83.6 H Lymph % (Auto) 6.4 L [place] % (Auto) 5.8 Eos % (Auto) 3.7 Baso % (Auto) 0.5 Neut # 8.1 H Lymph # 0.6 L [place] # 0.6 Eos # 0.4 Baso # 0.0 Neutrophils % (Manual) 90 H Band Neutrophils % 4 H Lymphocytes % (Manual) 5 L Monocytes % (Manual) 4 Eosinophils % (Manual) 1 Platelet Estimate Normal Large Platelets Present Polychromasia Slight Hypochromasia (manual) Slight Poikilocytosis (manual Slight Anisocytosis (manual) Slight Target Cells Slight Puncture Site pCO2 pO2 HCO3 ABG pH ABG Total CO2 ABG O2 Saturation ABG Base Excess ABG Hemoglobin ABG Carboxyhemoglobin POC ABG HHb (Measured) ABG Methemoglobin Braxton Test A-a O2 Difference Respiratory Index Hgb O2 Saturation Vent Mode Mechanical Rate FiO2 Tidal Volume PEEP Sodium 137 Potassium 3.9 Chloride 95 L Carbon Dioxide 31 H Anion Gap 15 BUN 37 H Creatinine 3.2 H Est GFR ( Amer) 17 Est GFR (Non-Af Amer) 14 POC Glucose (mg/dL) 151 H Random Glucose 135 H Calcium 7.7 L Phosphorus 3.2 Total Bilirubin 0.5 AST 48 H D ALT 41 Alkaline Phosphatase 171 H Total Protein 5.2 L Albumin 2.7 L Globulin 2.5 Albumin/Globulin Ratio 1.1 Hep Bs Antigen Hep Bs Antibody Hep B Core IgM Ab Review of Systems - Review of Systems Systems not reviewed;Unavailable: Intubated Critical Care Progress Note - Vent Settings TIDAL VOLUME:: 450 RESP RATE:: 14 FIO2:: 50 PEEP:: 5 - Nutrition Nutrition: Nutrition Category Date Time Status Renal Diet [DIET] Diets 08/16/16 Dinner Active Assessment/Plan (1) Pulmonary edema Assessment and plan: 80-year-old female with past medical history of systolic CHF (EF-10%). 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 Now in recurrent respiratory failure from flash pulmonary edema s/p plasma exchange. In ICU, intubated. Chest xray is improving, will try CPAP to wean off. Neuro: off sedation Pulm: Acute respiratory failure secondary to pulmonary edema status post plasma exchange. Intubated on vent. Will dialyze to remove fluid. - Intubated - CXR showed large right pleural effusion, thoracentesis was scheduled with IR today-- canceled due to improving CXR - CXR 09/15: no interval changes - CPAP trial to wean off CV: Hemodynamically stable. Hypertensive, the pressure will drop with dialysis. Hem: Thrombocytopenia from TTP-- improving. Platelets 138 today. - Anemia of chronic disease, continue Procrit. - Discussed plan of care with Dr. Montanez. - Completed third round of plasma exhange Renal: End-stage renal disease now on chronic dialysis - Diaylsis T/Th/Sat Endo: No acute issues GI: NPO - Tube feeds, renal formula. - Protonix ID: No acute issues. Skin: - Sacral ulcer, stage 2 - Wound care DVT proph - heparin subcutaneous GI proph - Protonix PT/OT Cole catheter- monitor I/O Code status - full code Current Visit: Yes Status: Acute <Sary Ibarra - Last Filed: 09/15/16 18:47> CCU Subjective - Physician Review Subjective (Free Text): Patient is currently tolerating the CPAP at this time. Some left-sided congestion noted. But much improved than yesterday. Likely fluid overload status. Thrombocytes are improving at this time. We'll continue to monitor. The patient continues to improve, possible weaning in the morning. Especially after the dialysis patient can get extubated if she improves. CCU Objective - Vital Signs / Intake & Output Vital Signs (Last 4 hours): Vital Signs Pulse Resp BP Pulse Ox 09/15/16 18:02 98 H 20 151/78 H 97 09/15/16 18:00 97 H 19 97 09/15/16 17:02 110 H 19 163/80 H 98 09/15/16 17:00 109 H 19 98 09/15/16 16:02 109 H 20 165/83 H 98 09/15/16 16:00 109 H 12 98 09/15/16 15:02 109 H 20 174/84 H 98 09/15/16 15:00 107 H 21 98 Intake and Output (Last 8hrs): Intake & Output 09/15/16 09/15/16 09/15/16 06:59 14:59 22:59 Intake Total 320 320 160 Output Total 0 0 0 Balance 320 320 160 Intake: Tube Feeding 320 320 160 Output: Urine 0 0 0 Urine, Voided 0 0 0 Other: # Bowel Movements 0 1 1 - Medications Active Medications: Active Medications Generic Name Dose Route Start Last Admin Trade Name Freq PRN Reason Stop Dose Admin Acetaminophen 650 mg 08/16/16 03:42 Tylenol 325mg Tab PO Q6 PRN Fever >100.4 F Artificial Tears 0 ml 08/16/16 14:00 09/15/16 17:38 Artificial Tears OU 1 drop QID JESSI Administration Epoetin Herve 10,000 unit 09/04/16 11:15 09/13/16 13:25 Procrit IV 10,000 unit TTS JESSI Administration Heparin Sodium (Porcine) 3,400 units 09/09/16 11:02 09/13/16 14:35 Heparin IVP 3,400 units TTS JESSI Administration Propofol 1,000 mg in 100 mls @ 2.16 mls/hr 09/11/16 16:17 09/13/16 09:00 Diprivan IV Infused .Q24H PRN Titration TITRATE PER MD ORDER Protocol 5 MCG/KG/MIN Pantoprazole Sodium 40 mg 09/12/16 10:00 09/15/16 09:46 Protonix Susp PO 40 mg DAILY JESSI Administration Valacyclovir HCl 500 mg 08/16/16 10:00 09/15/16 09:45 Valtrex PO 500 mg DAILY JESSI Administration - Patient Studies Lab Studies: Lab Studies 09/15/16 09/15/16 09/15/16 Range/Units 17:34 11:55 06:16 WBC 9.7 (4.8-10.8) K/uL RBC 3.35 L (3.80-5.20) Mil/uL Hgb 10.4 L (11.0-16.0) g/dL Hct 33.1 L (34.0-47.0) % MCV 98.6 (81.0-99.0) fL MCH 30.9 (27.0-31.0) pg MCHC 31.3 L (33.0-37.0) g/dL RDW 18.3 H (11.5-14.5) % Plt Count 138 (130-400) K/uL MPV 10.8 (7.2-11.7) fL Neut % (Auto) 83.6 H (50.0-75.0) % Lymph % (Auto) 6.4 L (20.0-40.0) % [place] % (Auto) 5.8 (0.0-10.0) % Eos % (Auto) 3.7 (0.0-4.0) % Baso % (Auto) 0.5 (0.0-2.0) % Neut # 8.1 H (1.8-7.0) K/uL Lymph # 0.6 L (1.0-4.3) K/uL [place] # 0.6 (0.0-0.8) K/uL Eos # 0.4 (0.0-0.7) K/uL Baso # 0.0 (0.0-0.2) K/uL Neutrophils % (Manual) 90 H (50-75) % Band Neutrophils % 4 H (0-2) % Lymphocytes % (Manual) 5 L (20-40) % Monocytes % (Manual) 4 (0-10) % Eosinophils % (Manual) 1 (0-4) % Platelet Estimate Normal (NORMAL) Large Platelets Present Polychromasia Slight Hypochromasia (manual) Slight Poikilocytosis (manual Slight Anisocytosis (manual) Slight Target Cells Slight Puncture Site pCO2 (35-45) mm/Hg pO2 (80-100) mm/Hg HCO3 (21-28) mmol/L ABG pH (7.35-7.45) ABG Total CO2 (22-28) mmol/L ABG O2 Saturation (95-98) % ABG Base Excess (-2.0-3.0) mmol/L ABG Hemoglobin (11.7-17.4) g/dL ABG Carboxyhemoglobin (0.5-1.5) % POC ABG HHb (Measured) (0.0-5.0) % ABG Methemoglobin (0.0-3.0) % Braxton Test A-a O2 Difference mm/Hg Respiratory Index Hgb O2 Saturation (95.0-98.0) % Vent Mode Mechanical Rate FiO2 % Tidal Volume PEEP Sodium (132-148) mmol/L Potassium (3.6-5.2) mmol/L Chloride (98-107) mmol/L Carbon Dioxide (22-30) mmol/L Anion Gap (10-20) BUN (7-17) mg/dL Creatinine (0.7-1.2) MG/DL Est GFR ( Amer) Est GFR (Non-Af Amer) POC Glucose (mg/dL) 176 H 183 H (65-110) mg/dL Random Glucose (65-105) mg/dL Calcium (8.6-10.4) mg/dl Phosphorus (2.5-4.5) mg/dL Total Bilirubin (0.2-1.3) mg/dL AST (14-36) U/L ALT (9-52) U/L Alkaline Phosphatase (38-126) U/L Total Protein (6.3-8.3) g/dL Albumin (3.5-5.0) g/dL Globulin (2.2-3.9) gm/dL Albumin/Globulin Ratio (1.0-2.1) Hep Bs Antigen (NEGATIVE) Hep Bs Antibody (NEGATIVE) Hep B Core IgM Ab (NEGATIVE) 09/15/16 09/15/16 09/15/16 Range/Units 06:15 05:55 05:25 WBC (4.8-10.8) K/uL RBC (3.80-5.20) Mil/uL Hgb (11.0-16.0) g/dL Hct (34.0-47.0) % MCV (81.0-99.0) fL MCH (27.0-31.0) pg MCHC (33.0-37.0) g/dL RDW (11.5-14.5) % Plt Count (130-400) K/uL MPV (7.2-11.7) fL Neut % (Auto) (50.0-75.0) % Lymph % (Auto) (20.0-40.0) % [place] % (Auto) (0.0-10.0) % Eos % (Auto) (0.0-4.0) % Baso % (Auto) (0.0-2.0) % Neut # (1.8-7.0) K/uL Lymph # (1.0-4.3) K/uL [place] # (0.0-0.8) K/uL Eos # (0.0-0.7) K/uL Baso # (0.0-0.2) K/uL Neutrophils % (Manual) (50-75) % Band Neutrophils % (0-2) % Lymphocytes % (Manual) (20-40) % Monocytes % (Manual) (0-10) % Eosinophils % (Manual) (0-4) % Platelet Estimate (NORMAL) Large Platelets Polychromasia Hypochromasia (manual) Poikilocytosis (manual Anisocytosis (manual) Target Cells Puncture Site Rr pCO2 44 (35-45) mm/Hg pO2 104 H (80-100) mm/Hg HCO3 33.4 H (21-28) mmol/L ABG pH 7.51 H (7.35-7.45) ABG Total CO2 36.5 H (22-28) mmol/L ABG O2 Saturation 99.4 H (95-98) % ABG Base Excess 10.9 H (-2.0-3.0) mmol/L ABG Hemoglobin 10.5 L (11.7-17.4) g/dL ABG Carboxyhemoglobin 2.1 H (0.5-1.5) % POC ABG HHb (Measured) 0.6 (0.0-5.0) % ABG Methemoglobin 1.3 (0.0-3.0) % Braxton Test Pos A-a O2 Difference 269.0 mm/Hg Respiratory Index 2.6 Hgb O2 Saturation 96.0 (95.0-98.0) % Vent Mode Prvc Mechanical Rate 14 FiO2 60.0 % Tidal Volume 450 PEEP 10 Sodium 137 (132-148) mmol/L Potassium 3.9 (3.6-5.2) mmol/L Chloride 95 L (98-107) mmol/L Carbon Dioxide 31 H (22-30) mmol/L Anion Gap 15 (10-20) BUN 37 H (7-17) mg/dL Creatinine 3.2 H (0.7-1.2) MG/DL Est GFR ( Amer) 17 Est GFR (Non-Af Amer) 14 POC Glucose (mg/dL) 151 H (65-110) mg/dL Random Glucose 135 H (65-105) mg/dL Calcium 7.7 L (8.6-10.4) mg/dl Phosphorus 3.2 (2.5-4.5) mg/dL Total Bilirubin 0.5 (0.2-1.3) mg/dL AST 48 H D (14-36) U/L ALT 41 (9-52) U/L Alkaline Phosphatase 171 H (38-126) U/L Total Protein 5.2 L (6.3-8.3) g/dL Albumin 2.7 L (3.5-5.0) g/dL Globulin 2.5 (2.2-3.9) gm/dL Albumin/Globulin Ratio 1.1 (1.0-2.1) Hep Bs Antigen (NEGATIVE) Hep Bs Antibody (NEGATIVE) Hep B Core IgM Ab (NEGATIVE) 09/14/16 09/13/16 09/13/16 Range/Units 23:54 11:42 11:42 WBC (4.8-10.8) K/uL RBC (3.80-5.20) Mil/uL Hgb (11.0-16.0) g/dL Hct (34.0-47.0) % MCV (81.0-99.0) fL MCH (27.0-31.0) pg MCHC (33.0-37.0) g/dL RDW (11.5-14.5) % Plt Count (130-400) K/uL MPV (7.2-11.7) fL Neut % (Auto) (50.0-75.0) % Lymph % (Auto) (20.0-40.0) % [place] % (Auto) (0.0-10.0) % Eos % (Auto) (0.0-4.0) % Baso % (Auto) (0.0-2.0) % Neut # (1.8-7.0) K/uL Lymph # (1.0-4.3) K/uL [place] # (0.0-0.8) K/uL Eos # (0.0-0.7) K/uL Baso # (0.0-0.2) K/uL Neutrophils % (Manual) (50-75) % Band Neutrophils % (0-2) % Lymphocytes % (Manual) (20-40) % Monocytes % (Manual) (0-10) % Eosinophils % (Manual) (0-4) % Platelet Estimate (NORMAL) Large Platelets Polychromasia Hypochromasia (manual) Poikilocytosis (manual Anisocytosis (manual) Target Cells Puncture Site pCO2 (35-45) mm/Hg pO2 (80-100) mm/Hg HCO3 (21-28) mmol/L ABG pH (7.35-7.45) ABG Total CO2 (22-28) mmol/L ABG O2 Saturation (95-98) % ABG Base Excess (-2.0-3.0) mmol/L ABG Hemoglobin (11.7-17.4) g/dL ABG Carboxyhemoglobin (0.5-1.5) % POC ABG HHb (Measured) (0.0-5.0) % ABG Methemoglobin (0.0-3.0) % Braxton Test A-a O2 Difference mm/Hg Respiratory Index Hgb O2 Saturation (95.0-98.0) % Vent Mode Mechanical Rate FiO2 % Tidal Volume PEEP Sodium (132-148) mmol/L Potassium (3.6-5.2) mmol/L Chloride (98-107) mmol/L Carbon Dioxide (22-30) mmol/L Anion Gap (10-20) BUN (7-17) mg/dL Creatinine (0.7-1.2) MG/DL Est GFR ( Amer) Est GFR (Non-Af Amer) POC Glucose (mg/dL) 147 H (65-110) mg/dL Random Glucose (65-105) mg/dL Calcium (8.6-10.4) mg/dl Phosphorus (2.5-4.5) mg/dL Total Bilirubin (0.2-1.3) mg/dL AST (14-36) U/L ALT (9-52) U/L Alkaline Phosphatase (38-126) U/L Total Protein (6.3-8.3) g/dL Albumin (3.5-5.0) g/dL Globulin (2.2-3.9) gm/dL Albumin/Globulin Ratio (1.0-2.1) Hep Bs Antigen Negative (NEGATIVE) Hep Bs Antibody Positive (NEGATIVE) Hep B Core IgM Ab Negative (NEGATIVE) Laboratory Results - last 24 hr 09/13/16 09/13/16 09/14/16 11:42 11:42 23:54 WBC RBC Hgb Hct MCV MCH MCHC RDW Plt Count MPV Neut % (Auto) Lymph % (Auto) [place] % (Auto) Eos % (Auto) Baso % (Auto) Neut # Lymph # [place] # Eos # Baso # Neutrophils % (Manual) Band Neutrophils % Lymphocytes % (Manual) Monocytes % (Manual) Eosinophils % (Manual) Platelet Estimate Large Platelets Polychromasia Hypochromasia (manual) Poikilocytosis (manual Anisocytosis (manual) Target Cells Puncture Site pCO2 pO2 HCO3 ABG pH ABG Total CO2 ABG O2 Saturation ABG Base Excess ABG Hemoglobin ABG Carboxyhemoglobin POC ABG HHb (Measured) ABG Methemoglobin Braxton Test A-a O2 Difference Respiratory Index Hgb O2 Saturation Vent Mode Mechanical Rate FiO2 Tidal Volume PEEP Sodium Potassium Chloride Carbon Dioxide Anion Gap BUN Creatinine Est GFR ( Amer) Est GFR (Non-Af Amer) POC Glucose (mg/dL) 147 H Random Glucose Calcium Phosphorus Total Bilirubin AST ALT Alkaline Phosphatase Total Protein Albumin Globulin Albumin/Globulin Ratio Hep Bs Antigen Negative Hep Bs Antibody Positive Hep B Core IgM Ab Negative 09/15/16 09/15/16 09/15/16 05:25 05:55 06:15 WBC RBC Hgb Hct MCV MCH MCHC RDW Plt Count MPV Neut % (Auto) Lymph % (Auto) [place] % (Auto) Eos % (Auto) Baso % (Auto) Neut # Lymph # [place] # Eos # Baso # Neutrophils % (Manual) Band Neutrophils % Lymphocytes % (Manual) Monocytes % (Manual) Eosinophils % (Manual) Platelet Estimate Large Platelets Polychromasia Hypochromasia (manual) Poikilocytosis (manual Anisocytosis (manual) Target Cells Puncture Site Rr pCO2 44 pO2 104 H HCO3 33.4 H ABG pH 7.51 H ABG Total CO2 36.5 H ABG O2 Saturation 99.4 H ABG Base Excess 10.9 H ABG Hemoglobin 10.5 L ABG Carboxyhemoglobin 2.1 H POC ABG HHb (Measured) 0.6 ABG Methemoglobin 1.3 Braxton Test Pos A-a O2 Difference 269.0 Respiratory Index 2.6 Hgb O2 Saturation 96.0 Vent Mode Prvc Mechanical Rate 14 FiO2 60.0 Tidal Volume 450 PEEP 10 Sodium 137 Potassium 3.9 Chloride 95 L Carbon Dioxide 31 H Anion Gap 15 BUN 37 H Creatinine 3.2 H Est GFR ( Amer) 17 Est GFR (Non-Af Amer) 14 POC Glucose (mg/dL) 151 H Random Glucose 135 H Calcium 7.7 L Phosphorus 3.2 Total Bilirubin 0.5 AST 48 H D ALT 41 Alkaline Phosphatase 171 H Total Protein 5.2 L Albumin 2.7 L Globulin 2.5 Albumin/Globulin Ratio 1.1 Hep Bs Antigen Hep Bs Antibody Hep B Core IgM Ab 0809/15/16 09/15/16 06:16 11:55 17:34 WBC 9.7 RBC 3.35 L Hgb 10.4 L Hct 33.1 L MCV 98.6 MCH 30.9 MCHC 31.3 L RDW 18.3 H Plt Count 138 MPV 10.8 Neut % (Auto) 83.6 H Lymph % (Auto) 6.4 L [place] % (Auto) 5.8 Eos % (Auto) 3.7 Baso % (Auto) 0.5 Neut # 8.1 H Lymph # 0.6 L [place] # 0.6 Eos # 0.4 Baso # 0.0 Neutrophils % (Manual) 90 H Band Neutrophils % 4 H Lymphocytes % (Manual) 5 L Monocytes % (Manual) 4 Eosinophils % (Manual) 1 Platelet Estimate Normal Large Platelets Present Polychromasia Slight Hypochromasia (manual) Slight Poikilocytosis (manual Slight Anisocytosis (manual) Slight Target Cells Slight Puncture Site pCO2 pO2 HCO3 ABG pH ABG Total CO2 ABG O2 Saturation ABG Base Excess ABG Hemoglobin ABG Carboxyhemoglobin POC ABG HHb (Measured) ABG Methemoglobin Braxton Test A-a O2 Difference Respiratory Index Hgb O2 Saturation Vent Mode Mechanical Rate FiO2 Tidal Volume PEEP Sodium Potassium Chloride Carbon Dioxide Anion Gap BUN Creatinine Est GFR ( Amer) Est GFR (Non-Af Amer) POC Glucose (mg/dL) 183 H 176 H Random Glucose Calcium Phosphorus Total Bilirubin AST ALT Alkaline Phosphatase Total Protein Albumin Globulin Albumin/Globulin Ratio Hep Bs Antigen Hep Bs Antibody Hep B Core IgM Ab Critical Care Progress Note - Nutrition Nutrition: Nutrition Category Date Time Status Renal Diet [DIET] Diets 08/16/16 Dinner Active
--- NOTE | 2016-09-15 12:22 | RAD ---
HISTORY: Pleural effusions. Portable study 11:28. COMPARISON: Multiple serial examinations preceding the most recent study: September 15, 2016. 07:11. FINDINGS: LUNGS: Stable incompletely visualized infiltrates primarily right lower lobe. PLEURA: No significant pleural effusion identified, no pneumothorax apparent. CARDIOVASCULAR: Cardiomegaly. Stable position of dialysis catheter. OSSEOUS STRUCTURES: No significant abnormalities. VISUALIZED UPPER ABDOMEN: Normal. OTHER FINDINGS: Stable position of endotracheal tube and nasogastric tube. IMPRESSION: No significant interval change compared to the prior examination(s).
--- NOTE | 2016-09-15 17:58 | CP.PCM.PN ---
Subjective - Date & Time of Evaluation Date of Evaluation: 09/15/16 Time of Evaluation: 12:00 - Subjective Subjective: clinically same Objective - Vital Signs/Intake and Output Vital Signs (last 24 hours): Temp Pulse Resp BP Pulse Ox 99.1 F 109 H 20 174/84 H 98 09/15/16 12:00 09/15/16 15:02 09/15/16 15:02 09/15/16 15:02 09/15/16 15:02 Intake and Output: 09/15/16 09/15/16 06:59 18:59 Intake Total 480 360 Output Total 0 0 Balance 480 360 - Medications Medications: Current Medications Acetaminophen (Tylenol 325mg Tab) 650 mg PO Q6 PRN PRN Reason: Fever >100.4 F Artificial Tears (Artificial Tears) 0 ml OU QID [facility] Last Admin: 09/15/16 17:38 Dose: 1 drop Epoetin Herve (Procrit) 10,000 unit IV TTS [facility] Last Admin: 09/13/16 13:25 Dose: 10,000 unit Heparin Sodium (Porcine) (Heparin) 3,400 units IVP TTS [facility] Last Admin: 09/13/16 14:35 Dose: 3,400 units Propofol (Diprivan) 1,000 mg in 100 mls @ 2.16 mls/hr IV .Q24H PRN; Protocol; 5 MCG/KG/MIN PRN Reason: TITRATE PER MD ORDER Last Titration: 09/13/16 09:00 Dose: Infused Pantoprazole Sodium (Protonix Susp) 40 mg PO DAILY [facility] Last Admin: 09/15/16 09:46 Dose: 40 mg Valacyclovir HCl (Valtrex) 500 mg PO DAILY [facility] Last Admin: 09/15/16 09:45 Dose: 500 mg - Labs Labs: 09/15/16 06:16 09/15/16 06:15 PT 11.1 SECONDS (9.7-12.2) 09/12/16 20:17 INR 1.0 09/12/16 20:17 APTT 25 SECONDS (21-34) 09/12/16 20:17 - Constitutional Appears: Well - Head Exam Head Exam: ATRAUMATIC, NORMAL INSPECTION, NORMOCEPHALIC - Eye Exam Eye Exam: EOMI, Normal appearance, PERRL Pupil Exam: NORMAL ACCOMODATION, PERRL - ENT Exam ENT Exam: Mucous Membranes Moist, Normal Exam - Neck Exam Neck Exam: Full ROM, Normal Inspection. absent: Lymphadenopathy - Respiratory Exam Respiratory Exam: Decreased Breath Sounds - Cardiovascular Exam Cardiovascular Exam: REGULAR RHYTHM, +S1, +S2 - GI/Abdominal Exam GI & Abdominal Exam: Soft, Diminished Bowel Sounds - Rectal Exam Rectal Exam: Deferred Assessment and Plan (1) Cardiac dysrhythmia Status: Acute (2) ESRD (end stage renal disease) on dialysis Status: Acute (3) Pulmonary edema Status: Acute (4) MARCO (acute kidney injury) Status: Acute (5) Acute respiratory failure requiring reintubation Status: Acute (6) Arthritis Status: Acute (7) CHF (congestive heart failure) Status: Acute (8) Dehydration Status: Acute (9) Dehydration Status: Acute (10) Diverticulosis Status: Acute (11) Elevated CEA Status: Acute (12) Hypertension Status: Acute (13) Inguinal lymphadenopathy Status: Acute (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
--- NOTE | 2016-09-15 18:26 | CP.PCM.PN ---
Subjective - Date & Time of Evaluation Date of Evaluation: 09/15/16 Time of Evaluation: 18:26 - Subjective Subjective: pt is seen and examined, follow up consult is dictated #[id number] Objective - Vital Signs/Intake and Output Vital Signs (last 24 hours): Temp Pulse Resp BP Pulse Ox 99.1 F 98 H 20 151/78 H 97 09/15/16 12:00 09/15/16 18:02 09/15/16 18:02 09/15/16 18:02 09/15/16 18:02 Intake and Output: 09/15/16 09/15/16 06:59 18:59 Intake Total 480 480 Output Total 0 0 Balance 480 480 - Medications Medications: Current Medications Acetaminophen (Tylenol 325mg Tab) 650 mg PO Q6 PRN PRN Reason: Fever >100.4 F Artificial Tears (Artificial Tears) 0 ml OU QID [facility] Last Admin: 09/15/16 17:38 Dose: 1 drop Epoetin Herve (Procrit) 10,000 unit IV TTS [facility] Last Admin: 09/13/16 13:25 Dose: 10,000 unit Heparin Sodium (Porcine) (Heparin) 3,400 units IVP TTS [facility] Last Admin: 09/13/16 14:35 Dose: 3,400 units Propofol (Diprivan) 1,000 mg in 100 mls @ 2.16 mls/hr IV .Q24H PRN; Protocol; 5 MCG/KG/MIN PRN Reason: TITRATE PER MD ORDER Last Titration: 09/13/16 09:00 Dose: Infused Pantoprazole Sodium (Protonix Susp) 40 mg PO DAILY [facility] Last Admin: 09/15/16 09:46 Dose: 40 mg Valacyclovir HCl (Valtrex) 500 mg PO DAILY [facility] Last Admin: 09/15/16 09:45 Dose: 500 mg - Labs Labs: 09/15/16 06:16 09/15/16 06:15 PT 11.1 SECONDS (9.7-12.2) 09/12/16 20:17 INR 1.0 09/12/16 20:17 APTT 25 SECONDS (21-34) 09/12/16 20:17
--- NOTE | 2016-09-15 23:57 | PN ---
DATE:09/15/2026 FOLLOWUP RENAL CONSULTATION The patient is located in ICU bed 1. REQUESTING PHYSICIAN: Dr. Kavon Ureña. REASON FOR FOLLOWUP: End-stage renal disease and for continuation with hemodialysis. SUBJECTIVE: Mrs. Denise Garcia is an 80-year-old elderly female with a history of hypertension, rheumatoid arthritis, cardiomyopathy, CHF, status post intubation and extubation about a month ago, thrombocytopenia, diagnosis of TTP status post plasmapheresis x3 sessions. Patient was intubated last week due to respiratory failure after plasmapheresis. Patient is being dialyzed 3 times a week for renal failure. Patient is arousable, on ventilator, on FiO2 80%. PHYSICAL EXAMINATION: GENERAL: Mrs. Denise Garcia is about 80-year-old elderly female, moderately built, moderately nourished, not in acute distress, on ventilator. VITAL SIGNS: As follows. Blood pressure 149/79, pulse 97, respirations 19, temperature 97.6, saturation 96% on FiO2, 50% now. HEENT: Pupils are normal reactive to light and accommodation. Conjunctivae pink. Sclerae anicteric. Tongue is moist, on ventilator. LUNGS: Symmetrical on both sides. Bilateral breath sounds present. Occasional basal crackles present. CVS: [place] at the fifth intercostal space, midclavicular line. S1 and S2 audible. No murmur or gallop. ABDOMEN: Normal in appearance. Soft and tympanic. No guarding, no rigidity. No hepatosplenomegaly. CRANKSHAFT GRINDER: The patient is on ventilator, opens eyes to touch and painful stimuli. Sensory and motor system is grossly within normal limits. EXTREMITIES: No cyanosis, no clubbing, no edema. CURRENT MEDICATIONS: Include as follows. Valacyclovir 500 mg daily, Tylenol 650 mg p.o. q. 6 hours, and Protonix 40 mg daily, Epogen 10,000 units 3 times a week, subq heparin 5000 q. 12 hours, propofol and also artificial tears. LABORATORY DATA: Include as follows. As on 09/15/2016, WBC 9.7, hemoglobin 10.3, hematocrit 33.1, platelets 138. Neutrophils 90, bands 4, lymph 5, monos 4, eosinophils 1. ABG ph 7.51, pCO2 44, pO2 104. Bicarb is 33.4, saturation 99.4, with a vent setting AC 14, tidal volume 450, FiO2 60%, PEEP of 10. CMP: Sodium 137, potassium 3.9, chloride 96, CO2 of 31, BUN 37, creatinine 3.2, glucose 135, calcium 7.7, phosphorus 3.2. Total bilirubin 0.5, AST 48, ALT 41, alkaline phosphatase 171, total protein 5.2, albumin 2.7. Chest x-ray, impression: no significant interval change compared to the prior examination. ASSESSMENT AND PLAN: In summary, Mrs. Denise Garcia is an 80-year-old elderly female with a history of hypertension, rheumatoid arthritis, renal failure, thrombocytopenia, TTP, cardiomyopathy, respiratory failure. 1. 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 Patient is on hemodialysis dependent for the last 6 weeks, no signs of improvement at this time. Continue hemodialysis 3 times a week, Thursday, , Thursday. 2. Hypertension. Blood pressure is stable. Continue current medication. Consider to add beta-urban 3. Anemia secondary to renal failure and thrombotic thrombocytopenic purpura. 4. Thrombocytopenia. Status post plasmapheresis. Platelets are improving. Followup heparin-induced antibodies to rule out heparin induced thrombocytopenia. 4. Respiratory failure. Continue vent support. We will try to ultrafiltrate as much as patient can tolerate. Thank you for allowing me to participate in your patient's care. Horacio Graham MD MTDD
[2016-09-16 06:34] LABS: BASO % 0.4 % (0.0-2.0); EOS # 0.4 K/uL (0.0-0.7); EOS % 4.1 % (0.0-4.0); HEMATOCRIT 29.3 % (34.0-47.0); LYMPH # 0.9 K/uL (1.0-4.3); MEAN CELL VOLUME 97.2 fL (81.0-99.0); MEAN CORPUSCULAR HEMOGLOBIN 31.1 pg (27.0-31.0); MEAN PLATELET VOLUME 9.6 fL (7.2-11.7); MONO # 0.7 K/uL (0.0-0.8); MONO % 6.4 % (0.0-10.0); NRBC % 0.2 % (0.0-2.0); PLATELET COUNT 156 K/uL (130-400); RED CELL DISTRIBUTION WIDTH 17.9 % (11.5-14.5); WHITE BLOOD COUNT 10.2 K/uL (4.8-10.8)
[2016-09-16 06:48] LABS: ALB/GLOB RATIO 1.1 (1.0-2.1); BILIRUBIN,TOTAL 0.3 mg/dL (0.2-1.3); CALCIUM 7.8 mg/dl (8.6-10.4); MAGNESIUM 2.2 mg/dL (1.6-2.3); PHOSPHOROUS 2.9 mg/dL (2.5-4.5); POTASSIUM 3.8 mmol/L (3.6-5.2); TOTAL PROTEIN 5.2 g/dL (6.3-8.3)
[2016-09-16 08:19] LABS: ARTERIAL BLOOD HGB O2 SAT 94.7 % (95.0-98.0); CARBOXYHEMOGLOBIN 2.2 % (0.5-1.5); DRAW SITE L/F; HHB 1.7 % (0.0-5.0); METHEMOGLOBIN 1.3 % (0.0-3.0)
[2016-09-16 08:22] LABS: EOSINOPHIL 1 % (0-4); NEUTROPHIL 85 % (50-75); NUCLEATED RED BLOOD CELL 1 % (0-0); TOTAL CELLS COUNTED 100
[2016-09-16] MEDS: Pantoprazole 40 mg Susp UD PO SCH (09:36)
[2016-09-16] MEDS: Aritificial Tears (15ml) OU SCH ×4 (09:36→22:00)
--- NOTE | 2016-09-16 10:58 | CP.CCUPN ---
<Carlota Laughlin - Last Filed: 09/16/16 15:57> CCU Subjective - Physician Review Subjective (Free Text): Patient was seen and examined at bedside in the morning. Patient is unresponsive and unable to respond to questions and review of systems. 09/16/16 10:55 CCU Objective - Vital Signs / Intake & Output Vital Signs (Last 4 hours): Vital Signs Temp Pulse Resp BP Pulse Ox 09/16/16 10:02 91 H 25 H 155/77 H 91 L 09/16/16 10:00 91 H 27 H 89 L 09/16/16 09:02 84 18 156/77 H 98 09/16/16 09:00 84 19 98 09/16/16 08:02 93 H 20 152/85 H 99 09/16/16 08:00 98.9 F 93 H 17 98 09/16/16 07:02 93 H 21 164/89 H 99 09/16/16 07:00 96 H 22 99 Intake and Output (Last 8hrs): Intake & Output 09/15/16 09/16/16 09/16/16 22:59 06:59 14:59 Intake Total 320 320 160 Output Total 0 0 0 Balance 320 320 160 Intake: Tube Feeding 320 320 160 Output: Urine 0 0 0 Urine, Voided 0 0 0 Other: # Bowel Movements 0 0 0 - Physical Exam Head: Positive for: Atraumatic, Normocephalic Extroacular Muscles: Negative for: EOMI Mouth: Positive for: Moist Mucous Membranes Respiratory/Chest: Positive for: Decreased Breath Sounds, Rhonchi. Negative for : Clear to Auscultation, Wheezes Cardiovascular: Positive for: Normal S1, S2, Tachycardic Abdomen: Positive for: Normal Bowel Sounds Upper Extremity: Negative for: Edema, Swelling Lower Extremity: Positive for: Edema. Negative for: NORMAL PULSES (diminished) Neurological: Negative for: GCS=15, Speech Normal Skin: Positive for: Warm, Dry, Normal Color Psychiatric: Negative for: Alert, Oriented x 3, Normal Insight, Normal Concentration - Medications Active Medications: Active Medications Generic Name Dose Route Start Last Admin Trade Name Freq PRN Reason Stop Dose Admin Acetaminophen 650 mg 08/16/16 03:42 Tylenol 325mg Tab PO Q6 PRN Fever >100.4 F Artificial Tears 0 ml 08/16/16 14:00 09/16/16 09:36 Artificial Tears OU 1 drop QID JESSI Administration Epoetin Herve 10,000 unit 09/04/16 11:15 09/13/16 13:25 Procrit IV 10,000 unit TTS JESSI Administration Heparin Sodium (Porcine) 3,400 units 09/09/16 11:02 09/13/16 14:35 Heparin IVP 3,400 units TTS JESSI Administration Heparin Sodium (Porcine) 5,000 units 09/15/16 22:00 09/16/16 09:35 Heparin SC 5,000 units Q12H JESSI Administration Propofol 1,000 mg in 100 mls @ 2.16 mls/hr 09/11/16 16:17 09/13/16 09:00 Diprivan IV Infused .Q24H PRN Titration TITRATE PER MD ORDER Protocol 5 MCG/KG/MIN Pantoprazole Sodium 40 mg 09/12/16 10:00 09/16/16 09:36 Protonix Susp PO 40 mg DAILY JESSI Administration Valacyclovir HCl 500 mg 08/16/16 10:00 09/16/16 09:35 Valtrex PO 500 mg DAILY JESSI Administration - Patient Studies Lab Studies: Lab Studies 09/16/16 09/16/16 09/16/16 Range/Units 08:10 06:24 06:24 WBC 10.2 (4.8-10.8) K/uL RBC 3.01 L (3.80-5.20) Mil/uL Hgb 9.4 L (11.0-16.0) g/dL Hct 29.3 L (34.0-47.0) % MCV 97.2 (81.0-99.0) fL MCH 31.1 H (27.0-31.0) pg MCHC 32.0 L (33.0-37.0) g/dL RDW 17.9 H (11.5-14.5) % Plt Count 156 (130-400) K/uL MPV 9.6 (7.2-11.7) fL Neut % (Auto) 80.1 H (50.0-75.0) % Lymph % (Auto) 9.0 L (20.0-40.0) % [place] % (Auto) 6.4 (0.0-10.0) % Eos % (Auto) 4.1 H (0.0-4.0) % Baso % (Auto) 0.4 (0.0-2.0) % Neut # 8.2 H (1.8-7.0) K/uL Lymph # 0.9 L (1.0-4.3) K/uL [place] # 0.7 (0.0-0.8) K/uL Eos # 0.4 (0.0-0.7) K/uL Baso # 0.0 (0.0-0.2) K/uL Neutrophils % (Manual) 85 H (50-75) % Band Neutrophils % 5 H (0-2) % Lymphocytes % (Manual) 4 L (20-40) % Monocytes % (Manual) 5 (0-10) % Eosinophils % (Manual) 1 (0-4) % Nucleated RBC % 1 H (0-0) % Platelet Estimate Normal (NORMAL) Hypochromasia (manual) Slight Anisocytosis (manual) Slight Haptoglobin (43-212) mg/dL Puncture Site L/f pCO2 42 (35-45) mm/Hg pO2 76 L (80-100) mm/Hg HCO3 33.0 H (21-28) mmol/L ABG pH 7.52 H (7.35-7.45) ABG Total CO2 35.6 H (22-28) mmol/L ABG O2 Saturation 98.2 H (95-98) % ABG Base Excess 10.4 H (-2.0-3.0) mmol/L ABG Hemoglobin 11.0 L (11.7-17.4) g/dL ABG Carboxyhemoglobin 2.2 H (0.5-1.5) % POC ABG HHb (Measured) 1.7 (0.0-5.0) % ABG Methemoglobin 1.3 (0.0-3.0) % Braxton Test N/a A-a O2 Difference 228.0 mm/Hg Respiratory Index 3.0 Hgb O2 Saturation 94.7 L (95.0-98.0) % FiO2 50.0 % Pressure Support 10 CPAP 5 Crit Value Called To Dr pineda Crit Value Called By Khadar 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 Crit Value Read Back Y Blood Gas Notified Time 820 Sodium 139 (132-148) mmol/L Potassium 3.8 (3.6-5.2) mmol/L Chloride 94 L (98-107) mmol/L Carbon Dioxide 34 H (22-30) mmol/L Anion Gap 15 (10-20) BUN 50 H (7-17) mg/dL Creatinine 4.1 H (0.7-1.2) MG/DL Est GFR ( Amer) 13 Est GFR (Non-Af Amer) 10 POC Glucose (mg/dL) (65-110) mg/dL Random Glucose 114 H (65-105) mg/dL Calcium 7.8 L (8.6-10.4) mg/dl Phosphorus 2.9 (2.5-4.5) mg/dL Magnesium 2.2 (1.6-2.3) mg/dL Total Bilirubin 0.3 (0.2-1.3) mg/dL AST 47 H (14-36) U/L ALT 49 (9-52) U/L Alkaline Phosphatase 186 H (38-126) U/L Total Protein 5.2 L (6.3-8.3) g/dL Albumin 2.7 L (3.5-5.0) g/dL Globulin 2.5 (2.2-3.9) gm/dL Albumin/Globulin Ratio 1.1 (1.0-2.1) 09/16/16 09/15/16 09/15/16 Range/Units 06:01 23:46 17:34 WBC (4.8-10.8) K/uL RBC (3.80-5.20) Mil/uL Hgb (11.0-16.0) g/dL Hct (34.0-47.0) % MCV (81.0-99.0) fL MCH (27.0-31.0) pg MCHC (33.0-37.0) g/dL RDW (11.5-14.5) % Plt Count (130-400) K/uL MPV (7.2-11.7) fL Neut % (Auto) (50.0-75.0) % Lymph % (Auto) (20.0-40.0) % [place] % (Auto) (0.0-10.0) % Eos % (Auto) (0.0-4.0) % Baso % (Auto) (0.0-2.0) % Neut # (1.8-7.0) K/uL Lymph # (1.0-4.3) K/uL [place] # (0.0-0.8) K/uL Eos # (0.0-0.7) K/uL Baso # (0.0-0.2) K/uL Neutrophils % (Manual) (50-75) % Band Neutrophils % (0-2) % Lymphocytes % (Manual) (20-40) % Monocytes % (Manual) (0-10) % Eosinophils % (Manual) (0-4) % Nucleated RBC % (0-0) % Platelet Estimate (NORMAL) Hypochromasia (manual) Anisocytosis (manual) Haptoglobin (43-212) mg/dL Puncture Site pCO2 (35-45) mm/Hg pO2 (80-100) mm/Hg HCO3 (21-28) mmol/L ABG pH (7.35-7.45) ABG Total CO2 (22-28) mmol/L ABG O2 Saturation (95-98) % ABG Base Excess (-2.0-3.0) mmol/L ABG Hemoglobin (11.7-17.4) g/dL ABG Carboxyhemoglobin (0.5-1.5) % POC ABG HHb (Measured) (0.0-5.0) % ABG Methemoglobin (0.0-3.0) % Braxton Test A-a O2 Difference mm/Hg Respiratory Index Hgb O2 Saturation (95.0-98.0) % FiO2 % Pressure Support CPAP Crit Value Called To Crit Value Called By Crit Value Read Back Blood Gas Notified Time Sodium (132-148) mmol/L Potassium (3.6-5.2) mmol/L Chloride (98-107) mmol/L Carbon Dioxide (22-30) mmol/L Anion Gap (10-20) BUN (7-17) mg/dL Creatinine (0.7-1.2) MG/DL Est GFR ( Amer) Est GFR (Non-Af Amer) POC Glucose (mg/dL) 134 H 141 H 176 H (65-110) mg/dL Random Glucose (65-105) mg/dL Calcium (8.6-10.4) mg/dl Phosphorus (2.5-4.5) mg/dL Magnesium (1.6-2.3) mg/dL Total Bilirubin (0.2-1.3) mg/dL AST (14-36) U/L ALT (9-52) U/L Alkaline Phosphatase (38-126) U/L Total Protein (6.3-8.3) g/dL Albumin (3.5-5.0) g/dL Globulin (2.2-3.9) gm/dL Albumin/Globulin Ratio (1.0-2.1) 09/15/16 09/12/16 Range/Units 11:55 20:17 WBC (4.8-10.8) K/uL RBC (3.80-5.20) Mil/uL Hgb (11.0-16.0) g/dL Hct (34.0-47.0) % MCV (81.0-99.0) fL MCH (27.0-31.0) pg MCHC (33.0-37.0) g/dL RDW (11.5-14.5) % Plt Count (130-400) K/uL MPV (7.2-11.7) fL Neut % (Auto) (50.0-75.0) % Lymph % (Auto) (20.0-40.0) % [place] % (Auto) (0.0-10.0) % Eos % (Auto) (0.0-4.0) % Baso % (Auto) (0.0-2.0) % Neut # (1.8-7.0) K/uL Lymph # (1.0-4.3) K/uL [place] # (0.0-0.8) K/uL Eos # (0.0-0.7) K/uL Baso # (0.0-0.2) K/uL Neutrophils % (Manual) (50-75) % Band Neutrophils % (0-2) % Lymphocytes % (Manual) (20-40) % Monocytes % (Manual) (0-10) % Eosinophils % (Manual) (0-4) % Nucleated RBC % (0-0) % Platelet Estimate (NORMAL) Hypochromasia (manual) Anisocytosis (manual) Haptoglobin 140 (43-212) mg/dL Puncture Site pCO2 (35-45) mm/Hg pO2 (80-100) mm/Hg HCO3 (21-28) mmol/L ABG pH (7.35-7.45) ABG Total CO2 (22-28) mmol/L ABG O2 Saturation (95-98) % ABG Base Excess (-2.0-3.0) mmol/L ABG Hemoglobin (11.7-17.4) g/dL ABG Carboxyhemoglobin (0.5-1.5) % POC ABG HHb (Measured) (0.0-5.0) % ABG Methemoglobin (0.0-3.0) % Braxton Test A-a O2 Difference mm/Hg Respiratory Index Hgb O2 Saturation (95.0-98.0) % FiO2 % Pressure Support CPAP Crit Value Called To Crit Value Called By Crit Value Read Back Blood Gas Notified Time Sodium (132-148) mmol/L Potassium (3.6-5.2) mmol/L Chloride (98-107) mmol/L Carbon Dioxide (22-30) mmol/L Anion Gap (10-20) BUN (7-17) mg/dL Creatinine (0.7-1.2) MG/DL Est GFR ( Amer) Est GFR (Non-Af Amer) POC Glucose (mg/dL) 183 H (65-110) mg/dL Random Glucose (65-105) mg/dL Calcium (8.6-10.4) mg/dl Phosphorus (2.5-4.5) mg/dL Magnesium (1.6-2.3) mg/dL Total Bilirubin (0.2-1.3) mg/dL AST (14-36) U/L ALT (9-52) U/L Alkaline Phosphatase (38-126) U/L Total Protein (6.3-8.3) g/dL Albumin (3.5-5.0) g/dL Globulin (2.2-3.9) gm/dL Albumin/Globulin Ratio (1.0-2.1) Laboratory Results - last 24 hr 09/12/16 09/15/16 09/15/16 20:17 11:55 17:34 WBC RBC Hgb Hct MCV MCH MCHC RDW Plt Count MPV Neut % (Auto) Lymph % (Auto) [place] % (Auto) Eos % (Auto) Baso % (Auto) Neut # Lymph # [place] # Eos # Baso # Neutrophils % (Manual) Band Neutrophils % Lymphocytes % (Manual) Monocytes % (Manual) Eosinophils % (Manual) Nucleated RBC % Platelet Estimate Hypochromasia (manual) Anisocytosis (manual) Haptoglobin 140 Puncture Site pCO2 pO2 HCO3 ABG pH ABG Total CO2 ABG O2 Saturation ABG Base Excess ABG Hemoglobin ABG Carboxyhemoglobin POC ABG HHb (Measured) ABG Methemoglobin Braxton Test A-a O2 Difference Respiratory Index Hgb O2 Saturation FiO2 Pressure Support CPAP Crit Value Called To Crit Value Called By Crit Value Read Back Blood Gas Notified Time Sodium Potassium Chloride Carbon Dioxide Anion Gap BUN Creatinine Est GFR ( Amer) Est GFR (Non-Af Amer) POC Glucose (mg/dL) 183 H 176 H Random Glucose Calcium Phosphorus Magnesium Total Bilirubin AST ALT Alkaline Phosphatase Total Protein Albumin Globulin Albumin/Globulin Ratio 09/15/16 09/16/16 09/16/16 23:46 06:01 06:24 WBC 10.2 RBC 3.01 L Hgb 9.4 L Hct 29.3 L MCV 97.2 MCH 31.1 H MCHC 32.0 L RDW 17.9 H Plt Count 156 MPV 9.6 Neut % (Auto) 80.1 H Lymph % (Auto) 9.0 L [place] % (Auto) 6.4 Eos % (Auto) 4.1 H Baso % (Auto) 0.4 Neut # 8.2 H Lymph # 0.9 L [place] # 0.7 Eos # 0.4 Baso # 0.0 Neutrophils % (Manual) 85 H Band Neutrophils % 5 H Lymphocytes % (Manual) 4 L Monocytes % (Manual) 5 Eosinophils % (Manual) 1 Nucleated RBC % 1 H Platelet Estimate Normal Hypochromasia (manual) Slight Anisocytosis (manual) Slight Haptoglobin Puncture Site pCO2 pO2 HCO3 ABG pH ABG Total CO2 ABG O2 Saturation ABG Base Excess ABG Hemoglobin ABG Carboxyhemoglobin POC ABG HHb (Measured) ABG Methemoglobin Braxton Test A-a O2 Difference Respiratory Index Hgb O2 Saturation FiO2 Pressure Support CPAP Crit Value Called To Crit Value Called By Crit Value Read Back Blood Gas Notified Time Sodium Potassium Chloride Carbon Dioxide Anion Gap BUN Creatinine Est GFR ( Amer) Est GFR (Non-Af Amer) POC Glucose (mg/dL) 141 H 134 H Random Glucose Calcium Phosphorus Magnesium Total Bilirubin AST ALT Alkaline Phosphatase Total Protein Albumin Globulin Albumin/Globulin Ratio 09/16/16 09/16/16 06:24 08:10 WBC RBC Hgb Hct MCV MCH MCHC RDW Plt Count MPV Neut % (Auto) Lymph % (Auto) [place] % (Auto) Eos % (Auto) Baso % (Auto) Neut # Lymph # [place] # Eos # Baso # Neutrophils % (Manual) Band Neutrophils % Lymphocytes % (Manual) Monocytes % (Manual) Eosinophils % (Manual) Nucleated RBC % Platelet Estimate Hypochromasia (manual) Anisocytosis (manual) Haptoglobin Puncture Site L/f pCO2 42 pO2 76 L HCO3 33.0 H ABG pH 7.52 H ABG Total CO2 35.6 H ABG O2 Saturation 98.2 H ABG Base Excess 10.4 H ABG Hemoglobin 11.0 L ABG Carboxyhemoglobin 2.2 H POC ABG HHb (Measured) 1.7 ABG Methemoglobin 1.3 Braxton Test N/a A-a O2 Difference 228.0 Respiratory Index 3.0 Hgb O2 Saturation 94.7 L FiO2 50.0 Pressure Support 10 CPAP 5 Crit Value Called To Dr pineda Crit Value Called By Khadar 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 Crit Value Read Back Y Blood Gas Notified Time 820 Sodium 139 Potassium 3.8 Chloride 94 L Carbon Dioxide 34 H Anion Gap 15 BUN 50 H Creatinine 4.1 H Est GFR ( Amer) 13 Est GFR (Non-Af Amer) 10 POC Glucose (mg/dL) Random Glucose 114 H Calcium 7.8 L Phosphorus 2.9 Magnesium 2.2 Total Bilirubin 0.3 AST 47 H ALT 49 Alkaline Phosphatase 186 H Total Protein 5.2 L Albumin 2.7 L Globulin 2.5 Albumin/Globulin Ratio 1.1 Fingerstick Blood Sugar Results: 134 Review of Systems - Review of Systems Systems not reviewed;Unavailable: Intubated Critical Care Progress Note - Vent Settings MODE:: PRESSURE SUPPORT PEEP:: 5 PRESSURE SUPPORT:: 10 - Nutrition Nutrition: Nutrition Category Date Time Status Renal Diet [DIET] Diets 08/16/16 Dinner Active Assessment/Plan (1) Pulmonary edema Assessment and plan: 80-year-old female with past medical history of systolic CHF (EF-10%). 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 Now in recurrent respiratory failure from flash pulmonary edema s/p plasma exchange. In ICU, intubated. Chest xray is improving, will try CPAP to wean off. On pressure support 10, PEEP 5. Patient will received plasma exchange tonight and a second plasma exchange tomorrow. Neuro: off sedation Pulm: Acute respiratory failure secondary to pulmonary edema status post plasma exchange. Intubated on vent. Will dialyze to remove fluid. - Intubated, pressure support--> CPAP 10, PEEP 5 - CXR showed large right pleural effusion, thoracentesis was scheduled with IR today-- canceled due to improving CXR - CXR 09/15: no interval changes CV: Hemodynamically stable. Hypertensive, the pressure will drop with dialysis. Hem: Thrombocytopenia from TTP-- improving. Platelets 138 today. - Anemia of chronic disease, continue Procrit. - Discussed plan of care with Dr. Montanez. - Platelet number is 158 today - As per Dr. Montanez, patient needs 2 more sessions-->will receive plasma exchange tonight and a second exchange tomorrow. Renal: End-stage renal disease now on chronic dialysis - Diaylsis T//Thu; patient received dialysis today Endo: No acute issues GI: NPO - Tube feeds, renal formula. - Protonix ID: No acute issues. Skin: - Sacral ulcer, stage 2 - Wound care DVT proph - heparin subcutaneous GI proph - Protonix PT/OT Cole catheter- monitor I/O Code status - full code Palliative care consulted Current Visit: Yes Status: Acute <Anthony Pineda - Last Filed: 09/16/16 18:09> CCU Objective - Vital Signs / Intake & Output Vital Signs (Last 4 hours): Vital Signs Temp Pulse Pulse Resp BP BP Pulse Ox 09/16/16 17:00 90 19 98 09/16/16 16:44 90 22 148/76 97 09/16/16 16:00 98.9 F 109 H 31 H 97 09/16/16 15:44 97 H 20 170/89 H 97 09/16/16 15:14 99.3 F 97 H 19 185/96 H 09/16/16 15:00 96 H 19 98 09/16/16 14:44 97 H 19 173/90 H 97 09/16/16 14:04 104 H 26 H 178/96 H 99 Intake and Output (Last 8hrs): Intake & Output 09/16/16 09/16/16 09/16/16 06:59 14:59 22:59 Intake Total 320 320 120 Output Total 0 0 Balance 320 320 120 Intake: Tube Feeding 320 320 120 Output: Urine 0 0 Urine, Voided 0 0 Other: # Bowel Movements 0 1 1 - Medications Active Medications: Active Medications Generic Name Dose Route Start Last Admin Trade Name Freq PRN Reason Stop Dose Admin Acetaminophen 650 mg 08/16/16 03:42 Tylenol 325mg Tab PO Q6 PRN Fever >100.4 F Acetaminophen 650 mg 09/16/16 19:00 Tylenol 650 Mg Supp MI 09/16/16 19:01 ONCE ONE Artificial Tears 0 ml 08/16/16 14:00 09/16/16 17:52 Artificial Tears OU 1 drop QID JESSI Administration Diphenhydramine HCl 50 mg 09/16/16 19:00 Benadryl IVP 09/16/16 19:01 ONCE ONE Epoetin Herve 10,000 unit 09/04/16 11:15 09/16/16 11:35 Procrit IV 10,000 unit TTS JESSI Administration Heparin Sodium (Porcine) 3,400 units 09/09/16 11:02 09/16/16 11:34 Heparin IVP 3,400 units TTS JESSI Administration Heparin Sodium (Porcine) 5,000 units 09/15/16 22:00 09/16/16 09:35 Heparin SC 5,000 units Q12H JESSI Administration Propofol 1,000 mg in 100 mls @ 2.16 mls/hr 09/11/16 16:17 09/13/16 09:00 Diprivan IV Infused .Q24H PRN Titration TITRATE PER MD ORDER Protocol 5 MCG/KG/MIN Calcium Gluconate 9.3 meq/ 270 mls @ 166 mls/hr 09/16/16 19:00 Sodium Chloride IV 09/16/16 20:37 ONCE ONE Methylprednisolone 100 mg 09/16/16 19:00 Solu-Medrol IVP 09/16/16 19:01 ONCE ONE Pantoprazole Sodium 40 mg 09/12/16 10:00 09/16/16 09:36 Protonix Susp PO 40 mg DAILY JESSI Administration Valacyclovir HCl 500 mg 08/16/16 10:00 09/16/16 09:35 Valtrex PO 500 mg DAILY JESSI Administration - Patient Studies Lab Studies: Lab Studies 09/16/16 09/16/16 09/16/16 Range/Units 08:10 06:24 06:24 WBC 10.2 (4.8-10.8) K/uL RBC 3.01 L (3.80-5.20) Mil/uL Hgb 9.4 L (11.0-16.0) g/dL Hct 29.3 L (34.0-47.0) % MCV 97.2 (81.0-99.0) fL MCH 31.1 H (27.0-31.0) pg MCHC 32.0 L (33.0-37.0) g/dL RDW 17.9 H (11.5-14.5) % Plt Count 156 (130-400) K/uL MPV 9.6 (7.2-11.7) fL Neut % (Auto) 80.1 H (50.0-75.0) % Lymph % (Auto) 9.0 L (20.0-40.0) % [place] % (Auto) 6.4 (0.0-10.0) % Eos % (Auto) 4.1 H (0.0-4.0) % Baso % (Auto) 0.4 (0.0-2.0) % Neut # 8.2 H (1.8-7.0) K/uL Lymph # 0.9 L (1.0-4.3) K/uL [place] # 0.7 (0.0-0.8) K/uL Eos # 0.4 (0.0-0.7) K/uL Baso # 0.0 (0.0-0.2) K/uL Neutrophils % (Manual) 85 H (50-75) % Band Neutrophils % 5 H (0-2) % Lymphocytes % (Manual) 4 L (20-40) % Monocytes % (Manual) 5 (0-10) % Eosinophils % (Manual) 1 (0-4) % Nucleated RBC % 1 H (0-0) % Platelet Estimate Normal (NORMAL) Hypochromasia (manual) Slight Anisocytosis (manual) Slight Haptoglobin (43-212) mg/dL Puncture Site L/f pCO2 42 (35-45) mm/Hg pO2 76 L (80-100) mm/Hg HCO3 33.0 H (21-28) mmol/L ABG pH 7.52 H (7.35-7.45) ABG Total CO2 35.6 H (22-28) mmol/L ABG O2 Saturation 98.2 H (95-98) % ABG Base Excess 10.4 H (-2.0-3.0) mmol/L ABG Hemoglobin 11.0 L (11.7-17.4) g/dL ABG Carboxyhemoglobin 2.2 H (0.5-1.5) % POC ABG HHb (Measured) 1.7 (0.0-5.0) % ABG Methemoglobin 1.3 (0.0-3.0) % Braxton Test N/a A-a O2 Difference 228.0 mm/Hg Respiratory Index 3.0 Hgb O2 Saturation 94.7 L (95.0-98.0) % FiO2 50.0 % Pressure Support 10 CPAP 5 Crit Value Called To Dr pineda Crit Value Called By Khadar 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 Crit Value Read Back Y Blood Gas Notified Time 820 Sodium 139 (132-148) mmol/L Potassium 3.8 (3.6-5.2) mmol/L Chloride 94 L (98-107) mmol/L Carbon Dioxide 34 H (22-30) mmol/L Anion Gap 15 (10-20) BUN 50 H (7-17) mg/dL Creatinine 4.1 H (0.7-1.2) MG/DL Est GFR ( Amer) 13 Est GFR (Non-Af Amer) 10 POC Glucose (mg/dL) (65-110) mg/dL Random Glucose 114 H (65-105) mg/dL Calcium 7.8 L (8.6-10.4) mg/dl Phosphorus 2.9 (2.5-4.5) mg/dL Magnesium 2.2 (1.6-2.3) mg/dL Total Bilirubin 0.3 (0.2-1.3) mg/dL AST 47 H (14-36) U/L ALT 49 (9-52) U/L Alkaline Phosphatase 186 H (38-126) U/L Total Protein 5.2 L (6.3-8.3) g/dL Albumin 2.7 L (3.5-5.0) g/dL Globulin 2.5 (2.2-3.9) gm/dL Albumin/Globulin Ratio 1.1 (1.0-2.1) Heparin-induced Plt Ab (Negative) 09/16/16 09/15/16 09/13/16 Range/Units 06:01 23:46 14:51 WBC (4.8-10.8) K/uL RBC (3.80-5.20) Mil/uL Hgb (11.0-16.0) g/dL Hct (34.0-47.0) % MCV (81.0-99.0) fL MCH (27.0-31.0) pg MCHC (33.0-37.0) g/dL RDW (11.5-14.5) % Plt Count (130-400) K/uL MPV (7.2-11.7) fL Neut % (Auto) (50.0-75.0) % Lymph % (Auto) (20.0-40.0) % [place] % (Auto) (0.0-10.0) % Eos % (Auto) (0.0-4.0) % Baso % (Auto) (0.0-2.0) % Neut # (1.8-7.0) K/uL Lymph # (1.0-4.3) K/uL [place] # (0.0-0.8) K/uL Eos # (0.0-0.7) K/uL Baso # (0.0-0.2) K/uL Neutrophils % (Manual) (50-75) % Band Neutrophils % (0-2) % Lymphocytes % (Manual) (20-40) % Monocytes % (Manual) (0-10) % Eosinophils % (Manual) (0-4) % Nucleated RBC % (0-0) % Platelet Estimate (NORMAL) Hypochromasia (manual) Anisocytosis (manual) Haptoglobin (43-212) mg/dL Puncture Site pCO2 (35-45) mm/Hg pO2 (80-100) mm/Hg HCO3 (21-28) mmol/L ABG pH (7.35-7.45) ABG Total CO2 (22-28) mmol/L ABG O2 Saturation (95-98) % ABG Base Excess (-2.0-3.0) mmol/L ABG Hemoglobin (11.7-17.4) g/dL ABG Carboxyhemoglobin (0.5-1.5) % POC ABG HHb (Measured) (0.0-5.0) % ABG Methemoglobin (0.0-3.0) % Braxton Test A-a O2 Difference mm/Hg Respiratory Index Hgb O2 Saturation (95.0-98.0) % FiO2 % Pressure Support CPAP Crit Value Called To Crit Value Called By Crit Value Read Back Blood Gas Notified Time Sodium (132-148) mmol/L Potassium (3.6-5.2) mmol/L Chloride (98-107) mmol/L Carbon Dioxide (22-30) mmol/L Anion Gap (10-20) BUN (7-17) mg/dL Creatinine (0.7-1.2) MG/DL Est GFR ( Amer) Est GFR (Non-Af Amer) POC Glucose (mg/dL) 134 H 141 H (65-110) mg/dL Random Glucose (65-105) mg/dL Calcium (8.6-10.4) mg/dl Phosphorus (2.5-4.5) mg/dL Magnesium (1.6-2.3) mg/dL Total Bilirubin (0.2-1.3) mg/dL AST (14-36) U/L ALT (9-52) U/L Alkaline Phosphatase (38-126) U/L Total Protein (6.3-8.3) g/dL Albumin (3.5-5.0) g/dL Globulin (2.2-3.9) gm/dL Albumin/Globulin Ratio (1.0-2.1) Heparin-induced Plt Ab Negative (Negative) 09/12/16 Range/Units 20:17 WBC (4.8-10.8) K/uL RBC (3.80-5.20) Mil/uL Hgb (11.0-16.0) g/dL Hct (34.0-47.0) % MCV (81.0-99.0) fL MCH (27.0-31.0) pg MCHC (33.0-37.0) g/dL RDW (11.5-14.5) % Plt Count (130-400) K/uL MPV (7.2-11.7) fL Neut % (Auto) (50.0-75.0) % Lymph % (Auto) (20.0-40.0) % [place] % (Auto) (0.0-10.0) % Eos % (Auto) (0.0-4.0) % Baso % (Auto) (0.0-2.0) % Neut # (1.8-7.0) K/uL Lymph # (1.0-4.3) K/uL [place] # (0.0-0.8) K/uL Eos # (0.0-0.7) K/uL Baso # (0.0-0.2) K/uL Neutrophils % (Manual) (50-75) % Band Neutrophils % (0-2) % Lymphocytes % (Manual) (20-40) % Monocytes % (Manual) (0-10) % Eosinophils % (Manual) (0-4) % Nucleated RBC % (0-0) % Platelet Estimate (NORMAL) Hypochromasia (manual) Anisocytosis (manual) Haptoglobin 140 (43-212) mg/dL Puncture Site pCO2 (35-45) mm/Hg pO2 (80-100) mm/Hg HCO3 (21-28) mmol/L ABG pH (7.35-7.45) ABG Total CO2 (22-28) mmol/L ABG O2 Saturation (95-98) % ABG Base Excess (-2.0-3.0) mmol/L ABG Hemoglobin (11.7-17.4) g/dL ABG Carboxyhemoglobin (0.5-1.5) % POC ABG HHb (Measured) (0.0-5.0) % ABG Methemoglobin (0.0-3.0) % Braxton Test A-a O2 Difference mm/Hg Respiratory Index Hgb O2 Saturation (95.0-98.0) % FiO2 % Pressure Support CPAP Crit Value Called To Crit Value Called By Crit Value Read Back Blood Gas Notified Time Sodium (132-148) mmol/L Potassium (3.6-5.2) mmol/L Chloride (98-107) mmol/L Carbon Dioxide (22-30) mmol/L Anion Gap (10-20) BUN (7-17) mg/dL Creatinine (0.7-1.2) MG/DL Est GFR ( Amer) Est GFR (Non-Af Amer) POC Glucose (mg/dL) (65-110) mg/dL Random Glucose (65-105) mg/dL Calcium (8.6-10.4) mg/dl Phosphorus (2.5-4.5) mg/dL Magnesium (1.6-2.3) mg/dL Total Bilirubin (0.2-1.3) mg/dL AST (14-36) U/L ALT (9-52) U/L Alkaline Phosphatase (38-126) U/L Total Protein (6.3-8.3) g/dL Albumin (3.5-5.0) g/dL Globulin (2.2-3.9) gm/dL Albumin/Globulin Ratio (1.0-2.1) Heparin-induced Plt Ab (Negative) Laboratory Results - last 24 hr 09/12/16 09/13/16 09/15/16 20:17 14:51 23:46 WBC RBC Hgb Hct MCV MCH MCHC RDW Plt Count MPV Neut % (Auto) Lymph % (Auto) [place] % (Auto) Eos % (Auto) Baso % (Auto) Neut # Lymph # [place] # Eos # Baso # Neutrophils % (Manual) Band Neutrophils % Lymphocytes % (Manual) Monocytes % (Manual) Eosinophils % (Manual) Nucleated RBC % Platelet Estimate Hypochromasia (manual) Anisocytosis (manual) Haptoglobin 140 Puncture Site pCO2 pO2 HCO3 ABG pH ABG Total CO2 ABG O2 Saturation ABG Base Excess ABG Hemoglobin ABG Carboxyhemoglobin POC ABG HHb (Measured) ABG Methemoglobin Braxton Test A-a O2 Difference Respiratory Index Hgb O2 Saturation FiO2 Pressure Support CPAP Crit Value Called To Crit Value Called By Crit Value Read Back Blood Gas Notified Time Sodium Potassium Chloride Carbon Dioxide Anion Gap BUN Creatinine Est GFR ( Amer) Est GFR (Non-Af Amer) POC Glucose (mg/dL) 141 H Random Glucose Calcium Phosphorus Magnesium Total Bilirubin AST ALT Alkaline Phosphatase Total Protein Albumin Globulin Albumin/Globulin Ratio Heparin-induced Plt Ab Negative 09/16/16 09/16/16 09/16/16 06:01 06:24 06:24 WBC 10.2 RBC 3.01 L Hgb 9.4 L Hct 29.3 L MCV 97.2 MCH 31.1 H MCHC 32.0 L RDW 17.9 H Plt Count 156 MPV 9.6 Neut % (Auto) 80.1 H Lymph % (Auto) 9.0 L [place] % (Auto) 6.4 Eos % (Auto) 4.1 H Baso % (Auto) 0.4 Neut # 8.2 H Lymph # 0.9 L [place] # 0.7 Eos # 0.4 Baso # 0.0 Neutrophils % (Manual) 85 H Band Neutrophils % 5 H Lymphocytes % (Manual) 4 L Monocytes % (Manual) 5 Eosinophils % (Manual) 1 Nucleated RBC % 1 H Platelet Estimate Normal Hypochromasia (manual) Slight Anisocytosis (manual) Slight Haptoglobin Puncture Site pCO2 pO2 HCO3 ABG pH ABG Total CO2 ABG O2 Saturation ABG Base Excess ABG Hemoglobin ABG Carboxyhemoglobin POC ABG HHb (Measured) ABG Methemoglobin Braxton Test A-a O2 Difference Respiratory Index Hgb O2 Saturation FiO2 Pressure Support CPAP Crit Value Called To Crit Value Called By Crit Value Read Back Blood Gas Notified Time Sodium 139 Potassium 3.8 Chloride 94 L Carbon Dioxide 34 H Anion Gap 15 BUN 50 H Creatinine 4.1 H Est GFR ( Amer) 13 Est GFR (Non-Af Amer) 10 POC Glucose (mg/dL) 134 H Random Glucose 114 H Calcium 7.8 L Phosphorus 2.9 Magnesium 2.2 Total Bilirubin 0.3 AST 47 H ALT 49 Alkaline Phosphatase 186 H Total Protein 5.2 L Albumin 2.7 L Globulin 2.5 Albumin/Globulin Ratio 1.1 Heparin-induced Plt Ab 09/16/16 08:10 WBC RBC Hgb Hct MCV MCH MCHC RDW Plt Count MPV Neut % (Auto) Lymph % (Auto) [place] % (Auto) Eos % (Auto) Baso % (Auto) Neut # Lymph # [place] # Eos # Baso # Neutrophils % (Manual) Band Neutrophils % Lymphocytes % (Manual) Monocytes % (Manual) Eosinophils % (Manual) Nucleated RBC % Platelet Estimate Hypochromasia (manual) Anisocytosis (manual) Haptoglobin Puncture Site L/f pCO2 42 pO2 76 L HCO3 33.0 H ABG pH 7.52 H ABG Total CO2 35.6 H ABG O2 Saturation 98.2 H ABG Base Excess 10.4 H ABG Hemoglobin 11.0 L ABG Carboxyhemoglobin 2.2 H POC ABG HHb (Measured) 1.7 ABG Methemoglobin 1.3 Braxton Test N/a A-a O2 Difference 228.0 Respiratory Index 3.0 Hgb O2 Saturation 94.7 L FiO2 50.0 Pressure Support 10 CPAP 5 Crit Value Called To Dr pineda Crit Value Called By Khadar montes 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 Crit Value Read Back Y Blood Gas Notified Time 820 Sodium Potassium Chloride Carbon Dioxide Anion Gap BUN Creatinine Est GFR ( Amer) Est GFR (Non-Af Amer) POC Glucose (mg/dL) Random Glucose Calcium Phosphorus Magnesium Total Bilirubin AST ALT Alkaline Phosphatase Total Protein Albumin Globulin Albumin/Globulin Ratio Heparin-induced Plt Ab Critical Care Progress Note - Nutrition Nutrition: Nutrition Category Date Time Status Renal Diet [DIET] Diets 08/16/16 Dinner Active Attending/Attestation - Attestation I have personally seen and examined this patient.: Yes I have fully participated in the care of the patient.: Yes I have reviewed all pertinent clinical information: Yes Notes (Text): 09/16/16 18:02 Patient seen and examined in the intensive care unit. Case discussed with house staff in the morning rounds.
--- NOTE | 2016-09-16 11:20 | CP.PCM.PN ---
Subjective - Date & Time of Evaluation Date of Evaluation: 09/16/16 Time of Evaluation: 11:19 - Subjective Subjective: pt is seen and examined, follow up consult is dictated #[id number] uf goal is 3lit, on 3 K + bath pt is on cpap with ps 10 cm h2o Objective - Vital Signs/Intake and Output Vital Signs (last 24 hours): Temp Pulse Resp BP Pulse Ox 99.2 F 86 20 160/86 H 100 09/16/16 10:27 09/16/16 10:25 09/16/16 10:27 09/16/16 10:57 09/16/16 10:27 Intake and Output: 09/16/16 09/16/16 06:59 18:59 Intake Total 440 160 Output Total 0 0 Balance 440 160 - Medications Medications: Current Medications Acetaminophen (Tylenol 325mg Tab) 650 mg PO Q6 PRN PRN Reason: Fever >100.4 F Artificial Tears (Artificial Tears) 0 ml OU QID [facility] Last Admin: 09/16/16 09:36 Dose: 1 drop Epoetin Herve (Procrit) 10,000 unit IV TTS [facility] Last Admin: 09/13/16 13:25 Dose: 10,000 unit Heparin Sodium (Porcine) (Heparin) 3,400 units IVP TTS [facility] Last Admin: 09/13/16 14:35 Dose: 3,400 units Heparin Sodium (Porcine) (Heparin) 5,000 units SC Q12H [facility] Last Admin: 09/16/16 09:35 Dose: 5,000 units Propofol (Diprivan) 1,000 mg in 100 mls @ 2.16 mls/hr IV .Q24H PRN; Protocol; 5 MCG/KG/MIN PRN Reason: TITRATE PER MD ORDER Last Titration: 09/13/16 09:00 Dose: Infused Pantoprazole Sodium (Protonix Susp) 40 mg PO DAILY [facility] Last Admin: 09/16/16 09:36 Dose: 40 mg Valacyclovir HCl (Valtrex) 500 mg PO DAILY [facility] Last Admin: 09/16/16 09:35 Dose: 500 mg - Labs Labs: 09/16/16 06:24 09/16/16 06:24 PT 11.1 SECONDS (9.7-12.2) 09/12/16 20:17 INR 1.0 09/12/16 20:17 APTT 25 SECONDS (21-34) 09/12/16 20:17
[2016-09-16] MEDS: Epoetin Alfa 10,000 unit/ml Dialysis IV SCH (11:35)
--- NOTE | 2016-09-16 11:36 | RAD ---
HISTORY: inttubated COMPARISON: 09/15/2016 FINDINGS: LUNGS: Multiple metallic device is project over the left and right thomas thorax partially obscuring primarily the right lung base. Some patchy infiltrate here is possible and has been noted previously. A mild pulmonary venous congestive status is suspect is similar to perhaps minimally increased. A small left pleural effusion is suggested. A right costophrenic angle is suboptimally visualized to assess the overlying metallic obscuring devices. PLEURA: Small left pleural effusion. No pneumothorax CARDIOVASCULAR: Cardiomegaly OSSEOUS STRUCTURES: Thoraco lumbar spondylosis. Right calcific rotator cuff tendinopathy versus calcific bursitis. Right glenohumeral shoulder arthrosis VISUALIZED UPPER ABDOMEN: Normal. OTHER FINDINGS: Dialysis catheter left-sided entry tip in superior vena cava. Feeding tube/NG tube at least coursing along the gastric fundus. Tip beyond the inferior edge of this image. The endotracheal tube tip is estimated 3 to 4 cm proximal to the [place]. It projects inferior to the clavicles. IMPRESSION: Multiple metallic devices projecting over the thorax - -partly obscuring Mild cardiomegaly. Small left pleural effusion. Mild pulmonary venous congestion-probably slightly increased since the prior exam. Patchy right basal infiltrate (versus coalescent mild pulmonary edema focus). Endotracheal tube, NG tube and dialysis catheter positions - satisfactory
--- NOTE | 2016-09-16 12:50 | CP.PCM.PN ---
Subjective - Date & Time of Evaluation Date of Evaluation: 09/16/16 Time of Evaluation: 10:00 - Subjective Subjective: PGY3 on heme/onc Dr. Montanez service: Pt seen and examined at bedside this morning. Sedated and intubated. ROS not possible. No acute events overnight. Objective - Vital Signs/Intake and Output Vital Signs (last 24 hours): Temp Pulse Resp BP Pulse Ox 99.2 F 86 20 175/93 H 100 09/16/16 10:27 09/16/16 10:25 09/16/16 10:27 09/16/16 11:57 09/16/16 10:27 Intake and Output: 09/16/16 09/16/16 06:59 18:59 Intake Total 440 160 Output Total 0 0 Balance 440 160 - Medications Medications: Current Medications Acetaminophen (Tylenol 325mg Tab) 650 mg PO Q6 PRN PRN Reason: Fever >100.4 F Artificial Tears (Artificial Tears) 0 ml OU QID [facility] Last Admin: 09/16/16 09:36 Dose: 1 drop Epoetin Herve (Procrit) 10,000 unit IV TTS [facility] Last Admin: 09/16/16 11:35 Dose: 10,000 unit Heparin Sodium (Porcine) (Heparin) 3,400 units IVP TTS [facility] Last Admin: 09/16/16 11:34 Dose: 3,400 units Heparin Sodium (Porcine) (Heparin) 5,000 units SC Q12H [facility] Last Admin: 09/16/16 09:35 Dose: 5,000 units Propofol (Diprivan) 1,000 mg in 100 mls @ 2.16 mls/hr IV .Q24H PRN; Protocol; 5 MCG/KG/MIN PRN Reason: TITRATE PER MD ORDER Last Titration: 09/13/16 09:00 Dose: Infused Pantoprazole Sodium (Protonix Susp) 40 mg PO DAILY [facility] Last Admin: 09/16/16 09:36 Dose: 40 mg Valacyclovir HCl (Valtrex) 500 mg PO DAILY [facility] Last Admin: 09/16/16 09:35 Dose: 500 mg - Labs Labs: 09/16/16 06:24 09/16/16 06:24 PT 11.1 SECONDS (9.7-12.2) 09/12/16 20:17 INR 1.0 09/12/16 20:17 APTT 25 SECONDS (21-34) 09/12/16 20:17 - Constitutional Appears: Non-toxic, No Acute Distress, Chronically Ill - Head Exam Head Exam: NORMOCEPHALIC - Respiratory Exam Respiratory Exam: Decreased Breath Sounds, Rhonchi, NORMAL BREATHING PATTERN. absent: Rales - Cardiovascular Exam Cardiovascular Exam: REGULAR RHYTHM, +S1, +S2. absent: Gallop, Rubs - GI/Abdominal Exam GI & Abdominal Exam: Soft, Normal Bowel Sounds - Extremities Exam Extremities Exam: Joint Swelling, Pedal Edema - Neurological Exam Additional comments: intubated and sedated Assessment and Plan - Assessment and Plan (Free Text) Assessment: (1) TTP (thrombotic thrombocytopenic purpura) Assessment & Plan: Platelet improving. Plasma exchange resumed per Dr. Montanez, need HD immediately before or after plasma exchange. Will consider increasing plasma volume exchange as per attending. Continue monitoring platelet. Status: Acute (2) Renal failure Assessment & Plan: Acute on chronic Continue HD TTS as per nephro. Status: Acute (3) CHF Assessment & Plan: On LifeVest Status: Acute
--- NOTE | 2016-09-16 14:14 | CP.PCM.PN ---
Subjective - Date & Time of Evaluation Date of Evaluation: 09/16/16 Time of Evaluation: 14:14 - Subjective Subjective: Patient is intubated on MV support and sedated unable to provide ROS. As per nursing patient did not tolerate CPAP trial. Objective - Vital Signs/Intake and Output Vital Signs (last 24 hours): Temp Pulse Resp BP Pulse Ox 98.4 F 101 H 26 H 180/92 H 93 L 09/16/16 12:00 09/16/16 13:00 09/16/16 13:00 09/16/16 12:57 09/16/16 13:00 Intake and Output: 09/16/16 09/16/16 06:59 18:59 Intake Total 440 280 Output Total 0 0 Balance 440 280 - Medications Medications: Current Medications Acetaminophen (Tylenol 325mg Tab) 650 mg PO Q6 PRN PRN Reason: Fever >100.4 F Artificial Tears (Artificial Tears) 0 ml OU QID [facility] Last Admin: 09/16/16 13:52 Dose: 1 drop Epoetin Herve (Procrit) 10,000 unit IV TTS [facility] Last Admin: 09/16/16 11:35 Dose: 10,000 unit Heparin Sodium (Porcine) (Heparin) 3,400 units IVP TTS [facility] Last Admin: 09/16/16 11:34 Dose: 3,400 units Heparin Sodium (Porcine) (Heparin) 5,000 units SC Q12H [facility] Last Admin: 09/16/16 09:35 Dose: 5,000 units Propofol (Diprivan) 1,000 mg in 100 mls @ 2.16 mls/hr IV .Q24H PRN; Protocol; 5 MCG/KG/MIN PRN Reason: TITRATE PER MD ORDER Last Titration: 09/13/16 09:00 Dose: Infused Pantoprazole Sodium (Protonix Susp) 40 mg PO DAILY [facility] Last Admin: 09/16/16 09:36 Dose: 40 mg Valacyclovir HCl (Valtrex) 500 mg PO DAILY [facility] Last Admin: 09/16/16 09:35 Dose: 500 mg - Labs Labs: 09/16/16 06:24 09/16/16 06:24 PT 11.1 SECONDS (9.7-12.2) 09/12/16 20:17 INR 1.0 09/12/16 20:17 APTT 25 SECONDS (21-34) 09/12/16 20:17 - Constitutional Appears: In Acute Distress, Chronically Ill - Head Exam Head Exam: ATRAUMATIC, NORMAL INSPECTION, NORMOCEPHALIC - ENT Exam ENT Exam: Mucous Membranes Dry Additional comments: ET tube - Neck Exam Neck Exam: Normal Inspection - Respiratory Exam Additional comments: On MV support - Cardiovascular Exam Cardiovascular Exam: Tachycardia - GI/Abdominal Exam GI & Abdominal Exam: Hypoactive Bowel Sounds - Rectal Exam Rectal Exam: Deferred - Extremities Exam Extremities Exam: Pedal Edema - Back Exam Back Exam: NORMAL INSPECTION - Neurological Exam Neurological Exam: Altered Neuro motor strength exam: Left Upper Extremity: 0, Right Upper Extremity: 0, Left Lower Extremity: 0, Right Lower Extremity: 0 - Psychiatric Exam Psychiatric exam: Flat Affect - Skin Skin Exam: Normal Color, Warm Assessment and Plan - Assessment and Plan (Free Text) Assessment: Patient remains sedated and on MV support. Patient did not tolerate CPAP trial. Patient is tachycardic, HR 101, tachypneic RR 24 and I was asked to revisit goals of care discussion with the family. Despite all reasonable measures and interventions, patient's condition has been declining slowly. 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 Her wishes and family's wishes in that regard are not known. I spoke to patient's granddaughter Haydee, whom I met with on previous occasion when goals of care discussed. I reviewed patient's clinical presentation and stated my concerns regarding quality of life issues. I supported granddaughter in her optimistic expectations regarding her grandmother recovery and also suggested that we should sat up a realistic goals. Further I offered more information about trach and PEG if weaning trial is unsuccessful again , and elicited family's opinion about this. Haydee, who has been a spoke person for the family, admitted genuine concern about this and would want the weaning trial to be attempted again. She was to talk to her mother and come tomorrow to ICU to discuss the best care options for the patient. Impression * Patient is MV dependent and is not tolerating CPAP trials so far * The ICU team feels that patient is not tolerating the CPAP and the different course of care needs to be discussed * Family is deeply concerned about the patient's condition and still hopes patient will recover and return home * Family needs more time to discuss possibility of trach and PEG placement Suggestion * Granddaughter Haydee will come tomorrow to ICU and wants to further discuss care options with the ICU Database Administrator
[2016-09-16 14:50] LABS: HEPARIN-IND PLATELET AB Negative (Negative)
--- NOTE | 2016-09-16 18:12 | CP.PCM.PN ---
Subjective - Date & Time of Evaluation Date of Evaluation: 09/16/16 Time of Evaluation: 12:20 - Subjective Subjective: clinically same Objective - Vital Signs/Intake and Output Vital Signs (last 24 hours): Temp Pulse Resp BP Pulse Ox 98.9 F 90 19 148/76 98 09/16/16 16:00 09/16/16 17:00 09/16/16 17:00 09/16/16 16:44 09/16/16 17:00 Intake and Output: 09/16/16 09/16/16 06:59 18:59 Intake Total 440 440 Output Total 0 0 Balance 440 440 - Medications Medications: Current Medications Acetaminophen (Tylenol 325mg Tab) 650 mg PO Q6 PRN PRN Reason: Fever >100.4 F Acetaminophen (Tylenol 650 Mg Supp) 650 mg ND ONCE ONE Stop: 09/16/16 19:01 Artificial Tears (Artificial Tears) 0 ml OU QID [facility] Last Admin: 09/16/16 17:52 Dose: 1 drop Diphenhydramine HCl (Benadryl) 50 mg IVP ONCE ONE Stop: 09/16/16 19:01 Epoetin Herve (Procrit) 10,000 unit IV TTS [facility] Last Admin: 09/16/16 11:35 Dose: 10,000 unit Heparin Sodium (Porcine) (Heparin) 3,400 units IVP TTS [facility] Last Admin: 09/16/16 11:34 Dose: 3,400 units Heparin Sodium (Porcine) (Heparin) 5,000 units SC Q12H [facility] Last Admin: 09/16/16 09:35 Dose: 5,000 units Propofol (Diprivan) 1,000 mg in 100 mls @ 2.16 mls/hr IV .Q24H PRN; Protocol; 5 MCG/KG/MIN PRN Reason: TITRATE PER MD ORDER Last Titration: 09/13/16 09:00 Dose: Infused Calcium Gluconate 9.3 meq/ (Sodium Chloride) 270 mls @ 166 mls/hr IV ONCE ONE Stop: 09/16/16 20:37 Methylprednisolone (Solu-Medrol) 100 mg IVP ONCE ONE Stop: 09/16/16 19:01 Pantoprazole Sodium (Protonix Susp) 40 mg PO DAILY [facility] Last Admin: 09/16/16 09:36 Dose: 40 mg Valacyclovir HCl (Valtrex) 500 mg PO DAILY [facility] Last Admin: 09/16/16 09:35 Dose: 500 mg - Labs Labs: 09/16/16 06:24 09/16/16 06:24 PT 11.1 SECONDS (9.7-12.2) 09/12/16 20:17 INR 1.0 09/12/16 20:17 APTT 25 SECONDS (21-34) 09/12/16 20:17 - Constitutional Appears: Well - Head Exam Head Exam: ATRAUMATIC, NORMAL INSPECTION, NORMOCEPHALIC - Eye Exam Eye Exam: EOMI, Normal appearance, PERRL Pupil Exam: NORMAL ACCOMODATION, PERRL - ENT Exam ENT Exam: Mucous Membranes Moist, Normal Exam - Neck Exam Neck Exam: Full ROM, Normal Inspection. absent: Lymphadenopathy - Respiratory Exam Respiratory Exam: Decreased Breath Sounds - Cardiovascular Exam Cardiovascular Exam: REGULAR RHYTHM, +S1, +S2 - GI/Abdominal Exam GI & Abdominal Exam: Soft, Diminished Bowel Sounds - Rectal Exam Rectal Exam: Deferred Assessment and Plan (1) Cardiac dysrhythmia Status: Acute (2) ESRD (end stage renal disease) on dialysis Status: Acute (3) Pulmonary edema Status: Acute (4) MARCO (acute kidney injury) Status: Acute (5) Acute respiratory failure requiring reintubation Status: Acute (6) Arthritis Status: Acute (7) CHF (congestive heart failure) Status: Acute (8) Dehydration Status: Acute (9) Dehydration Status: Acute (10) Diverticulosis Status: Acute (11) Elevated CEA Status: Acute (12) Hypertension Status: Acute (13) Inguinal lymphadenopathy Status: Acute (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
--- NOTE | 2016-09-16 18:20 | CP.PCM.PN ---
Subjective - Date & Time of Evaluation Date of Evaluation: 09/15/16 Time of Evaluation: 20:00 - Subjective Subjective: Vented, family at bedside. Objective - Vital Signs/Intake and Output Vital Signs (last 24 hours): Temp Pulse Resp BP Pulse Ox 98.9 F 90 19 148/76 98 09/16/16 16:00 09/16/16 17:00 09/16/16 17:00 09/16/16 16:44 09/16/16 17:00 Intake and Output: 09/16/16 09/16/16 06:59 18:59 Intake Total 440 440 Output Total 0 0 Balance 440 440 - Medications Medications: Current Medications Acetaminophen (Tylenol 325mg Tab) 650 mg PO Q6 PRN PRN Reason: Fever >100.4 F Acetaminophen (Tylenol 650 Mg Supp) 650 mg UT ONCE ONE Stop: 09/16/16 19:01 Artificial Tears (Artificial Tears) 0 ml OU QID [facility] Last Admin: 09/16/16 17:52 Dose: 1 drop Diphenhydramine HCl (Benadryl) 50 mg IVP ONCE ONE Stop: 09/16/16 19:01 Epoetin Herve (Procrit) 10,000 unit IV TTS [facility] Last Admin: 09/16/16 11:35 Dose: 10,000 unit Heparin Sodium (Porcine) (Heparin) 3,400 units IVP TTS [facility] Last Admin: 09/16/16 11:34 Dose: 3,400 units Heparin Sodium (Porcine) (Heparin) 5,000 units SC Q12H [facility] Last Admin: 09/16/16 09:35 Dose: 5,000 units Propofol (Diprivan) 1,000 mg in 100 mls @ 2.16 mls/hr IV .Q24H PRN; Protocol; 5 MCG/KG/MIN PRN Reason: TITRATE PER MD ORDER Last Titration: 09/13/16 09:00 Dose: Infused Calcium Gluconate 9.3 meq/ (Sodium Chloride) 270 mls @ 166 mls/hr IV ONCE ONE Stop: 09/16/16 20:37 Methylprednisolone (Solu-Medrol) 100 mg IVP ONCE ONE Stop: 09/16/16 19:01 Pantoprazole Sodium (Protonix Susp) 40 mg PO DAILY [facility] Last Admin: 09/16/16 09:36 Dose: 40 mg Valacyclovir HCl (Valtrex) 500 mg PO DAILY [facility] Last Admin: 09/16/16 09:35 Dose: 500 mg - Labs Labs: 09/16/16 06:24 09/16/16 06:24 PT 11.1 SECONDS (9.7-12.2) 09/12/16 20:17 INR 1.0 09/12/16 20:17 APTT 25 SECONDS (21-34) 09/12/16 20:17 - Head Exam Head Exam: ATRAUMATIC - Eye Exam Eye Exam: Normal appearance - ENT Exam ENT Exam: Mucous Membranes Dry - Respiratory Exam Respiratory Exam: NORMAL BREATHING PATTERN - Cardiovascular Exam Cardiovascular Exam: +S1, +S2 - GI/Abdominal Exam GI & Abdominal Exam: Normal Bowel Sounds - Extremities Exam Extremities Exam: Pedal Edema - Psychiatric Exam Psychiatric exam: Normal Affect, Normal Mood - Skin Skin Exam: Warm Assessment and Plan (1) TTP (thrombotic thrombocytopenic purpura) Assessment & Plan: relapsed on plasma exchange discussed possible Rituximab use with family; they want to think about it palliative care discussion Status: Acute
[2016-09-16] MEDS ORDERED: DiphenhydrAMINE 50 mg/ml Inj IVP ONE ×2 (19:00→22:00)
[2016-09-16] MEDS ORDERED: Calcium Gluconate 9.3 MEQ in Sodium Chloride 0.9% 250 ML IV ONE (19:00)
--- NOTE | 2016-09-16 23:36 | CON ---
FOLLOWUP RENAL CONSULTATION DATE: 09/16/2016 LOCATION: The patient is located in ICU bed 1. REQUESTING BY: Dr. Kavon Ureña. REASON FOR FOLLOWUP: End-stage renal disease, for continuation of hemodialysis. HISTORY OF PRESENT ILLNESS: Mrs. 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 The patient is being dialyzed, UF goal is about 3 liters today. The patient is also on 3 K bath during dialysis. The patient is on ventilator, on CPAP with a pressure support of 10 cm water and FiO2 of 50%. The patient is awake and not in distress. PHYSICAL EXAMINATION: VITAL SIGNS: As follows. Blood pressure 157/91, pulse 102, respirations 20, temperature 99.2, and saturation 100%. Height 5 feet and 2 inches and weight is 148 pounds. GENERAL: Mrs. Denise Garcia is an 80-year-old elderly female, on ventilator, not in distress, being dialyzed. HEENT: Pupils are normal, reactive to light and accommodation. Conjunctivae pink. Sclerae anicteric. Trachea is midline, on ventilator. LUNGS: Symmetry on both sides. Bilateral breath sounds present. Occasional basal crackles present. CVS: [place] at the fifth intercostal space, midclavicular line. S1 and S2 audible. No murmur, no gallop. ABDOMEN: Normal in appearance, soft and tympanic. No guarding. No rigidity. No hepatosplenomegaly. OPTOMETRIC AIDE: The patient is on ventilator, awake. Sensory and motor system is grossly within normal limits. EXTREMITIES: No cyanosis, no clubbing, no edema. CURRENT MEDICATIONS: Include as follows: Artificial tears; propofol IV; subcutaneous heparin 5000 q. 12 hours; Epogen 10,000 units IV three times a week Thursday, and Thursday; Protonix 40 mg p.o. daily; Tylenol 650 mg p.o. q. 6 hours; valacyclovir 500 mg p.o. daily. LABORATORY DATA: This morning as follows. As on 09/16/2016, WBC 10.2, hemoglobin 9.4, hematocrit is 29.3, and platelets 156. Neutrophils 85, bands 5, lymphs 4, monos 5, eosinophils 1, nucleoid RBC 1. PH 7.52, pCO2 of 42, pO2 of 76, bicarb is 33 and saturation 98.2, with a vent setting CPAP with a pressure support of 10, and FiO2 50%. Sodium 139, potassium 3.8, chloride 94, CO2 of 34, BUN 50, creatinine 5.1, glucose 114, calcium 7.8, phosphorus 2.9. Total bilirubin 0.3, AST 47, ALT 49, alkaline phosphatase 186, total protein 5.2, and albumin 2.7. MRSA screen was negative as of 09/11/2016. Chest x-ray, as on 09/16/2016, impression; multiple metallic devices projecting over the thorax, partly obscuring and mild cardiomegaly, small left pleural effusion, mild pulmonary venous congestion, probably slightly increased since prior examination, patchy right basal infiltrate versus causing the mild pulmonary edema focus. Endotracheal tube, NG tube and dialysis catheter positions satisfactory. ASSESSMENT AND PLAN: In summary, Mrs. 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 1. 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 Patient is on hemodialysis for the last 6 weeks without any improvement. 2. Respiratory failure. 3. Anemia secondary to renal failure and secondary to thrombotic thrombocytopenic purpura. 4. Thrombocytopenia, improving after plasmapheresis. 5. Cardiomyopathy. 6. Bilateral pleural effusions. We will try to ultrafiltrate as much as the patient can tolerate during dialysis and the goal is about 3 L today. Thank you for allowing me to participate in your patient's care. Horacio Graham MD
[2016-09-17 06:05] LABS: ABG ALLEN TEST POS; ARTERIAL BLOOD GAS MODE CPAP; ARTERIAL BLOOD HGB O2 SAT 95.3 % (95.0-98.0); CARBOXYHEMOGLOBIN 2.1 % (0.5-1.5); DRAW SITE RR; HHB 1.2 % (0.0-5.0); METHEMOGLOBIN 1.4 % (0.0-3.0)
[2016-09-17 06:39] LABS: BASO % 0.1 % (0.0-2.0); EOS % 0.1 % (0.0-4.0); LYMPH # 0.5 K/uL (1.0-4.3); LYMPH % 6.1 % (20.0-40.0); MEAN CELL VOLUME 96.6 fL (81.0-99.0); MEAN CORPUSCULAR HEMOGLOBIN 31.1 pg (27.0-31.0); MEAN CORPUSCULAR HGB CONC 32.2 g/dL (33.0-37.0); MEAN PLATELET VOLUME 10.3 fL (7.2-11.7); MONO # 0.1 K/uL (0.0-0.8); MONO % 1.8 % (0.0-10.0); NRBC % 0.3 % (0.0-2.0); PLATELET COUNT 139 K/uL (130-400); RED CELL DISTRIBUTION WIDTH 17.9 % (11.5-14.5); WHITE BLOOD COUNT 7.5 K/uL (4.8-10.8)
[2016-09-17 06:53] LABS: ALB/GLOB RATIO 1.2 (1.0-2.1); BILIRUBIN,TOTAL 0.5 mg/dL (0.2-1.3); PHOSPHOROUS 2.8 mg/dL (2.5-4.5); POTASSIUM 3.7 mmol/L (3.6-5.2); TOTAL PROTEIN 5.6 g/dL (6.3-8.3)
[2016-09-17 08:31] LABS: NEUTROPHIL 93 % (50-75); TOTAL CELLS COUNTED 100
--- NOTE | 2016-09-17 10:07 | CT ---
PROCEDURE: CT HEAD WITHOUT CONTRAST. HISTORY: ams COMPARISON: 08/22/2016 TECHNIQUE: Axial computed tomography images were obtained through the head/brain without intravenous contrast. Radiation dose: Total exam DLP = 981.84 mGy-cm. This CT exam was performed using one or more of the following dose reduction techniques: Automated exposure control, adjustment of the mA and/or kV according to patient size, and/or use of iterative reconstruction technique. FINDINGS: HEMORRHAGE: No intracranial hemorrhage. BRAIN: No mass effect or edema. Mild diffuse age-appropriate cerebral atrophy. Mild to moderate periventricular white matter lucency consistent with age-related microvascular ischemic change. 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 No evidence of acute infarct. VENTRICLES: Unremarkable. No hydrocephalus. CALVARIUM: Unremarkable. PARANASAL SINUSES: Chronic sphenoid and ethmoid sinusitis. MASTOID AIR CELLS: Nonspecific mild right mastoid effusion. OTHER FINDINGS: None. IMPRESSION: No intracranial mass, hemorrhage or evidence of acute infarct. Age appropriate involutional change with small bilateral old basal ganglia/ thalamic lacunar infarcts. No interval change from 08/22/2016. Chronic paranasal sinusitis. Nonspecific right mastoid effusion.
--- NOTE | 2016-09-17 10:31 | CP.CCUPN ---
<Carlota Laughlin - Last Filed: 09/17/16 11:24> CCU Subjective - Physician Review Subjective (Free Text): Patient was seen and examined at bedside in the morning. Patient is unresponsive and unable to respond to questions and review of systems. 09/17/16 10:31 CCU Objective - Vital Signs / Intake & Output Vital Signs (Last 4 hours): Vital Signs Pulse Resp BP 09/17/16 07:37 81 19 175/87 H 09/17/16 07:00 79 18 09/17/16 06:54 80 20 173/87 H 09/17/16 06:37 86 19 184/90 H Intake and Output (Last 8hrs): Intake & Output 09/16/16 09/17/16 09/17/16 22:59 06:59 14:59 Intake Total 320 320 40 Balance 320 320 40 Intake: Tube Feeding 320 320 40 Other: # Bowel Movements 1 0 0 - Physical Exam Head: Positive for: Atraumatic, Normocephalic Extroacular Muscles: Negative for: EOMI Mouth: Positive for: Moist Mucous Membranes Respiratory/Chest: Positive for: Decreased Breath Sounds. Negative for: Clear to Auscultation, Wheezes, Rhonchi Cardiovascular: Positive for: Normal S1, S2, Tachycardic Abdomen: Positive for: Normal Bowel Sounds Upper Extremity: Negative for: Edema, Swelling Lower Extremity: Negative for: Edema, NORMAL PULSES (diminished) Neurological: Negative for: GCS=15, Speech Normal Skin: Positive for: Warm, Dry, Normal Color Psychiatric: Negative for: Alert, Oriented x 3, Normal Insight, Normal Concentration - Medications Active Medications: Active Medications Generic Name Dose Route Start Last Admin Trade Name Freq PRN Reason Stop Dose Admin Acetaminophen 650 mg 08/16/16 03:42 Tylenol 325mg Tab PO Q6 PRN Fever >100.4 F Artificial Tears 0 ml 08/16/16 14:00 09/16/16 22:00 Artificial Tears OU 1 drop QID JESSI Administration Epoetin Herve 10,000 unit 09/04/16 11:15 09/16/16 11:35 Procrit IV 10,000 unit TTS JESSI Administration Heparin Sodium (Porcine) 3,400 units 09/09/16 11:02 09/16/16 11:34 Heparin IVP 3,400 units TTS JESSI Administration Heparin Sodium (Porcine) 5,000 units 09/15/16 22:00 09/16/16 22:02 Heparin SC 5,000 units Q12H JESSI Administration Propofol 1,000 mg in 100 mls @ 2.16 mls/hr 09/11/16 16:17 09/13/16 09:00 Diprivan IV Infused .Q24H PRN Titration TITRATE PER MD ORDER Protocol 5 MCG/KG/MIN Pantoprazole Sodium 40 mg 09/12/16 10:00 09/16/16 09:36 Protonix Susp PO 40 mg DAILY JESSI Administration Valacyclovir HCl 500 mg 08/16/16 10:00 09/16/16 09:35 Valtrex PO 500 mg DAILY JESSI Administration - Patient Studies Lab Studies: Lab Studies 09/17/16 09/17/16 09/17/16 Range/Units 06:27 06:27 05:35 WBC 7.5 (4.8-10.8) K/uL RBC 2.80 L (3.80-5.20) Mil/uL Hgb 8.7 L (11.0-16.0) g/dL Hct 27.0 L (34.0-47.0) % MCV 96.6 (81.0-99.0) fL MCH 31.1 H (27.0-31.0) pg MCHC 32.2 L (33.0-37.0) g/dL RDW 17.9 H (11.5-14.5) % Plt Count 139 (130-400) K/uL MPV 10.3 (7.2-11.7) fL Neut % (Auto) 91.9 H (50.0-75.0) % Lymph % (Auto) 6.1 L (20.0-40.0) % [place] % (Auto) 1.8 (0.0-10.0) % Eos % (Auto) 0.1 (0.0-4.0) % Baso % (Auto) 0.1 (0.0-2.0) % Neut # 6.9 (1.8-7.0) K/uL Lymph # 0.5 L (1.0-4.3) K/uL [place] # 0.1 (0.0-0.8) K/uL Eos # 0.0 (0.0-0.7) K/uL Baso # 0.0 (0.0-0.2) K/uL Neutrophils % (Manual) 93 H (50-75) % Band Neutrophils % 1 (0-2) % Lymphocytes % (Manual) 4 L (20-40) % Monocytes % (Manual) 2 (0-10) % Platelet Estimate Normal (NORMAL) Hypochromasia (manual) Slight Poikilocytosis (manual Slight Anisocytosis (manual) Slight Microcytosis (manual) Slight Macrocytosis (manual) Slight Puncture Site Rr pCO2 42 (35-45) mm/Hg pO2 80 (80-100) mm/Hg HCO3 38.2 H (21-28) mmol/L ABG pH 7.59 H (7.35-7.45) ABG Total CO2 41.6 H (22-28) mmol/L ABG O2 Saturation 98.8 H (95-98) % ABG Base Excess 17.0 H (-2.0-3.0) mmol/L ABG Hemoglobin 8.9 L (11.7-17.4) g/dL ABG Carboxyhemoglobin 2.1 H (0.5-1.5) % POC ABG HHb (Measured) 1.2 (0.0-5.0) % ABG Methemoglobin 1.4 (0.0-3.0) % Braxton Test Pos A-a O2 Difference 224.0 mm/Hg Respiratory Index 2.8 Hgb O2 Saturation 95.3 (95.0-98.0) % Vent Mode Cpap FiO2 50.0 % Pressure Support 10 CPAP 5 Sodium 137 (132-148) mmol/L Potassium 3.7 (3.6-5.2) mmol/L Chloride 95 L (98-107) mmol/L Carbon Dioxide 32 H (22-30) mmol/L Anion Gap 14 (10-20) BUN 32 H (7-17) mg/dL Creatinine 3.0 H (0.7-1.2) MG/DL Est GFR ( Amer) 18 Est GFR (Non-Af Amer) 15 Random Glucose 169 H (65-105) mg/dL Calcium 8.0 L (8.6-10.4) mg/dl Phosphorus 2.8 (2.5-4.5) mg/dL Magnesium 2.0 (1.6-2.3) mg/dL Total Bilirubin 0.5 (0.2-1.3) mg/dL AST 114 H D (14-36) U/L ALT 121 H D (9-52) U/L Alkaline Phosphatase 186 H (38-126) U/L Total Protein 5.6 L (6.3-8.3) g/dL Albumin 3.1 L (3.5-5.0) g/dL Globulin 2.5 (2.2-3.9) gm/dL Albumin/Globulin Ratio 1.2 (1.0-2.1) Heparin-induced Plt Ab (Negative) 09/13/16 Range/Units 14:51 WBC (4.8-10.8) K/uL RBC (3.80-5.20) Mil/uL Hgb (11.0-16.0) g/dL Hct (34.0-47.0) % MCV (81.0-99.0) fL MCH (27.0-31.0) pg MCHC (33.0-37.0) g/dL RDW (11.5-14.5) % Plt Count (130-400) K/uL MPV (7.2-11.7) fL Neut % (Auto) (50.0-75.0) % Lymph % (Auto) (20.0-40.0) % [place] % (Auto) (0.0-10.0) % Eos % (Auto) (0.0-4.0) % Baso % (Auto) (0.0-2.0) % Neut # (1.8-7.0) K/uL Lymph # (1.0-4.3) K/uL [place] # (0.0-0.8) K/uL Eos # (0.0-0.7) K/uL Baso # (0.0-0.2) K/uL Neutrophils % (Manual) (50-75) % Band Neutrophils % (0-2) % Lymphocytes % (Manual) (20-40) % Monocytes % (Manual) (0-10) % Platelet Estimate (NORMAL) Hypochromasia (manual) Poikilocytosis (manual Anisocytosis (manual) Microcytosis (manual) Macrocytosis (manual) Puncture Site pCO2 (35-45) mm/Hg pO2 (80-100) mm/Hg HCO3 (21-28) mmol/L ABG pH (7.35-7.45) ABG Total CO2 (22-28) mmol/L ABG O2 Saturation (95-98) % ABG Base Excess (-2.0-3.0) mmol/L ABG Hemoglobin (11.7-17.4) g/dL ABG Carboxyhemoglobin (0.5-1.5) % POC ABG HHb (Measured) (0.0-5.0) % ABG Methemoglobin (0.0-3.0) % Braxton Test A-a O2 Difference mm/Hg Respiratory Index Hgb O2 Saturation (95.0-98.0) % Vent Mode FiO2 % Pressure Support CPAP Sodium (132-148) mmol/L Potassium (3.6-5.2) mmol/L Chloride (98-107) mmol/L Carbon Dioxide (22-30) mmol/L Anion Gap (10-20) BUN (7-17) mg/dL Creatinine (0.7-1.2) MG/DL Est GFR ( Amer) Est GFR (Non-Af Amer) Random Glucose (65-105) mg/dL Calcium (8.6-10.4) mg/dl Phosphorus (2.5-4.5) mg/dL Magnesium (1.6-2.3) mg/dL Total Bilirubin (0.2-1.3) mg/dL AST (14-36) U/L ALT (9-52) U/L Alkaline Phosphatase (38-126) U/L Total Protein (6.3-8.3) g/dL Albumin (3.5-5.0) g/dL Globulin (2.2-3.9) gm/dL Albumin/Globulin Ratio (1.0-2.1) Heparin-induced Plt Ab Negative (Negative) Laboratory Results - last 24 hr 09/13/16 09/17/16 09/17/16 14:51 05:35 06:27 WBC 7.5 RBC 2.80 L Hgb 8.7 L Hct 27.0 L MCV 96.6 MCH 31.1 H MCHC 32.2 L RDW 17.9 H Plt Count 139 MPV 10.3 Neut % (Auto) 91.9 H Lymph % (Auto) 6.1 L [place] % (Auto) 1.8 Eos % (Auto) 0.1 Baso % (Auto) 0.1 Neut # 6.9 Lymph # 0.5 L [place] # 0.1 Eos # 0.0 Baso # 0.0 Neutrophils % (Manual) 93 H Band Neutrophils % 1 Lymphocytes % (Manual) 4 L Monocytes % (Manual) 2 Platelet Estimate Normal Hypochromasia (manual) Slight Poikilocytosis (manual Slight Anisocytosis (manual) Slight Microcytosis (manual) Slight Macrocytosis (manual) Slight Puncture Site Rr pCO2 42 pO2 80 HCO3 38.2 H ABG pH 7.59 H ABG Total CO2 41.6 H ABG O2 Saturation 98.8 H ABG Base Excess 17.0 H ABG Hemoglobin 8.9 L ABG Carboxyhemoglobin 2.1 H POC ABG HHb (Measured) 1.2 ABG Methemoglobin 1.4 Braxton Test Pos A-a O2 Difference 224.0 Respiratory Index 2.8 Hgb O2 Saturation 95.3 Vent Mode Cpap FiO2 50.0 Pressure Support 10 CPAP 5 Sodium Potassium Chloride Carbon Dioxide Anion Gap BUN Creatinine Est GFR ( Amer) Est GFR (Non-Af Amer) Random Glucose Calcium Phosphorus Magnesium Total Bilirubin AST ALT Alkaline Phosphatase Total Protein Albumin Globulin Albumin/Globulin Ratio Heparin-induced Plt Ab Negative 09/17/16 06:27 WBC RBC Hgb Hct MCV MCH MCHC RDW Plt Count MPV Neut % (Auto) Lymph % (Auto) [place] % (Auto) Eos % (Auto) Baso % (Auto) Neut # Lymph # [place] # Eos # Baso # Neutrophils % (Manual) Band Neutrophils % Lymphocytes % (Manual) Monocytes % (Manual) Platelet Estimate Hypochromasia (manual) Poikilocytosis (manual Anisocytosis (manual) Microcytosis (manual) Macrocytosis (manual) Puncture Site pCO2 pO2 HCO3 ABG pH ABG Total CO2 ABG O2 Saturation ABG Base Excess ABG Hemoglobin ABG Carboxyhemoglobin POC ABG HHb (Measured) ABG Methemoglobin Braxton Test A-a O2 Difference Respiratory Index Hgb O2 Saturation Vent Mode FiO2 Pressure Support CPAP Sodium 137 Potassium 3.7 Chloride 95 L Carbon Dioxide 32 H Anion Gap 14 BUN 32 H Creatinine 3.0 H Est GFR ( Amer) 18 Est GFR (Non-Af Amer) 15 Random Glucose 169 H Calcium 8.0 L Phosphorus 2.8 Magnesium 2.0 Total Bilirubin 0.5 AST 114 H D ALT 121 H D Alkaline Phosphatase 186 H Total Protein 5.6 L Albumin 3.1 L Globulin 2.5 Albumin/Globulin Ratio 1.2 Heparin-induced Plt Ab Fingerstick Blood Sugar Results: 134 Review of Systems - Review of Systems Systems not reviewed;Unavailable: Intubated Critical Care Progress Note - Vent Settings FIO2:: 10 PEEP:: 5 PRESSURE SUPPORT:: 10 - Nutrition Nutrition: Nutrition Category Date Time Status Renal Diet [DIET] Diets 08/16/16 Dinner Active Assessment/Plan (1) Pulmonary edema Assessment and plan: 80-year-old female with past medical history of systolic CHF (EF-10%). 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 Now in recurrent respiratory failure from flash pulmonary edema s/p plasma exchange. In ICU, intubated. Chest xray is improving, will try CPAP to wean off. On pressure support 10, PEEP 5. Patient received plasma exchange last night and will receive a second plasma exchange today (09/17/16). Neuro: off sedation - Head CT: no intracranial mass, hemorrhage, or acute infarct. 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 Chronic paranasal sinusitis; nonspecific right mastoid effusion Pulm: Acute respiratory failure secondary to pulmonary edema status post plasma exchange. Intubated on vent. Will dialyze to remove fluid. - Intubated, pressure support--> CPAP 10, PEEP 5 - CXR: CV: Hemodynamically stable. Hypertensive, the pressure will drop with dialysis. 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 - Discussed plan of care with Dr. Montanez. - Platelet number is [id number] today - As per Dr. Montanez, patient needs 2 more sessions-->received plasma exchange last night and a second exchange today Renal: End-stage renal disease now on chronic dialysis - Diaylsis T//Thu Endo: No acute issues GI: NPO - Tube feeds, renal formula. - Protonix - Liver enzymes are elevated- recheck lipids and monitor. ID: No acute issues. Skin: - Sacral ulcer, stage 2 - Wound care DVT proph - heparin subcutaneous GI proph - Protonix PT/OT Cole catheter- monitor I/O Code status - full code Palliative care consulted Current Visit: Yes Status: Acute <Anthony Taveras S - Last Filed: 09/17/16 15:34> CCU Objective - Vital Signs / Intake & Output Vital Signs (Last 4 hours): Vital Signs Temp 09/17/16 14:10 98.6 F Intake and Output (Last 8hrs): Intake & Output 09/17/16 09/17/16 09/17/16 06:59 14:59 22:59 Intake Total 320 40 Balance 320 40 Intake: Tube Feeding 320 40 Other: # Bowel Movements 0 0 - Medications Active Medications: Active Medications Generic Name Dose Route Start Last Admin Trade Name Freq PRN Reason Stop Dose Admin Acetaminophen 650 mg 08/16/16 03:42 Tylenol 325mg Tab PO Q6 PRN Fever >100.4 F Artificial Tears 0 ml 08/16/16 14:00 09/17/16 14:10 Artificial Tears OU 1 drop QID JESSI Administration Epoetin Herve 10,000 unit 09/04/16 11:15 09/16/16 11:35 Procrit IV 10,000 unit TTS JESSI Administration Heparin Sodium (Porcine) 3,400 units 09/09/16 11:02 09/16/16 11:34 Heparin IVP 3,400 units TTS JESSI Administration Heparin Sodium (Porcine) 5,000 units 09/15/16 22:00 09/17/16 12:02 Heparin SC 5,000 units Q12H JESSI Administration Propofol 1,000 mg in 100 mls @ 2.16 mls/hr 09/11/16 16:17 09/13/16 09:00 Diprivan IV Infused .Q24H PRN Titration TITRATE PER MD ORDER Protocol 5 MCG/KG/MIN Calcium Gluconate 9.3 meq/ 250 mls @ 100 mls/hr 09/17/16 13:34 09/17/16 14:09 Sodium Chloride IV 09/17/16 16:03 100 mls/hr ONCE ONE Administration Pantoprazole Sodium 40 mg 09/12/16 10:00 09/17/16 12:03 Protonix Susp PO 40 mg DAILY JESSI Administration Valacyclovir HCl 500 mg 08/16/16 10:00 09/17/16 12:02 Valtrex PO 500 mg DAILY JESSI Administration - Patient Studies Lab Studies: Lab Studies 09/17/16 09/17/16 09/17/16 Range/Units 06:27 06:27 05:35 WBC 7.5 (4.8-10.8) K/uL RBC 2.80 L (3.80-5.20) Mil/uL Hgb 8.7 L (11.0-16.0) g/dL Hct 27.0 L (34.0-47.0) % MCV 96.6 (81.0-99.0) fL MCH 31.1 H (27.0-31.0) pg MCHC 32.2 L (33.0-37.0) g/dL RDW 17.9 H (11.5-14.5) % Plt Count 139 (130-400) K/uL MPV 10.3 (7.2-11.7) fL Neut % (Auto) 91.9 H (50.0-75.0) % Lymph % (Auto) 6.1 L (20.0-40.0) % [place] % (Auto) 1.8 (0.0-10.0) % Eos % (Auto) 0.1 (0.0-4.0) % Baso % (Auto) 0.1 (0.0-2.0) % Neut # 6.9 (1.8-7.0) K/uL Lymph # 0.5 L (1.0-4.3) K/uL [place] # 0.1 (0.0-0.8) K/uL Eos # 0.0 (0.0-0.7) K/uL Baso # 0.0 (0.0-0.2) K/uL Neutrophils % (Manual) 93 H (50-75) % Band Neutrophils % 1 (0-2) % Lymphocytes % (Manual) 4 L (20-40) % Monocytes % (Manual) 2 (0-10) % Platelet Estimate Normal (NORMAL) Hypochromasia (manual) Slight Poikilocytosis (manual Slight Anisocytosis (manual) Slight Microcytosis (manual) Slight Macrocytosis (manual) Slight Puncture Site Rr pCO2 42 (35-45) mm/Hg pO2 80 (80-100) mm/Hg HCO3 38.2 H (21-28) mmol/L ABG pH 7.59 H (7.35-7.45) ABG Total CO2 41.6 H (22-28) mmol/L ABG O2 Saturation 98.8 H (95-98) % ABG Base Excess 17.0 H (-2.0-3.0) mmol/L ABG Hemoglobin 8.9 L (11.7-17.4) g/dL ABG Carboxyhemoglobin 2.1 H (0.5-1.5) % POC ABG HHb (Measured) 1.2 (0.0-5.0) % ABG Methemoglobin 1.4 (0.0-3.0) % Braxton Test Pos A-a O2 Difference 224.0 mm/Hg Respiratory Index 2.8 Hgb O2 Saturation 95.3 (95.0-98.0) % Vent Mode Cpap FiO2 50.0 % Pressure Support 10 CPAP 5 Sodium 137 (132-148) mmol/L Potassium 3.7 (3.6-5.2) mmol/L Chloride 95 L (98-107) mmol/L Carbon Dioxide 32 H (22-30) mmol/L Anion Gap 14 (10-20) BUN 32 H (7-17) mg/dL Creatinine 3.0 H (0.7-1.2) MG/DL Est GFR ( Amer) 18 Est GFR (Non-Af Amer) 15 Random Glucose 169 H (65-105) mg/dL Calcium 8.0 L (8.6-10.4) mg/dl Phosphorus 2.8 (2.5-4.5) mg/dL Magnesium 2.0 (1.6-2.3) mg/dL Total Bilirubin 0.5 (0.2-1.3) mg/dL AST 114 H D (14-36) U/L ALT 121 H D (9-52) U/L Alkaline Phosphatase 186 H (38-126) U/L Total Protein 5.6 L (6.3-8.3) g/dL Albumin 3.1 L (3.5-5.0) g/dL Globulin 2.5 (2.2-3.9) gm/dL Albumin/Globulin Ratio 1.2 (1.0-2.1) Laboratory Results - last 24 hr 09/17/16 09/17/16 09/17/16 05:35 06:27 06:27 WBC 7.5 RBC 2.80 L Hgb 8.7 L Hct 27.0 L MCV 96.6 MCH 31.1 H MCHC 32.2 L RDW 17.9 H Plt Count 139 MPV 10.3 Neut % (Auto) 91.9 H Lymph % (Auto) 6.1 L [place] % (Auto) 1.8 Eos % (Auto) 0.1 Baso % (Auto) 0.1 Neut # 6.9 Lymph # 0.5 L [place] # 0.1 Eos # 0.0 Baso # 0.0 Neutrophils % (Manual) 93 H Band Neutrophils % 1 Lymphocytes % (Manual) 4 L Monocytes % (Manual) 2 Platelet Estimate Normal Hypochromasia (manual) Slight Poikilocytosis (manual Slight Anisocytosis (manual) Slight Microcytosis (manual) Slight Macrocytosis (manual) Slight Puncture Site Rr pCO2 42 pO2 80 HCO3 38.2 H ABG pH 7.59 H ABG Total CO2 41.6 H ABG O2 Saturation 98.8 H ABG Base Excess 17.0 H ABG Hemoglobin 8.9 L ABG Carboxyhemoglobin 2.1 H POC ABG HHb (Measured) 1.2 ABG Methemoglobin 1.4 Braxton Test Pos A-a O2 Difference 224.0 Respiratory Index 2.8 Hgb O2 Saturation 95.3 Vent Mode Cpap FiO2 50.0 Pressure Support 10 CPAP 5 Sodium 137 Potassium 3.7 Chloride 95 L Carbon Dioxide 32 H Anion Gap 14 BUN 32 H Creatinine 3.0 H Est GFR ( Amer) 18 Est GFR (Non-Af Amer) 15 Random Glucose 169 H Calcium 8.0 L Phosphorus 2.8 Magnesium 2.0 Total Bilirubin 0.5 AST 114 H D ALT 121 H D Alkaline Phosphatase 186 H Total Protein 5.6 L Albumin 3.1 L Globulin 2.5 Albumin/Globulin Ratio 1.2 Critical Care Progress Note - Nutrition Nutrition: Nutrition Category Date Time Status Renal Diet [DIET] Diets 08/16/16 Dinner Active Attending/Attestation - Attestation I have personally seen and examined this patient.: Yes I have fully participated in the care of the patient.: Yes I have reviewed all pertinent clinical information: Yes Notes (Text): 09/17/16 15:33 Patient seen and examined in the intensive care unit. He is discussed with house staff in the morning rounds. Continue plasmapheresis and possible extubation Patient is more awake and responsive Continue present treatment
--- NOTE | 2016-09-17 11:21 | CP.PCM.PN ---
Subjective - Date & Time of Evaluation Date of Evaluation: 09/17/16 Time of Evaluation: 11:21 - Subjective Subjective: pt is een and examined, follow up consult is dictated #[id number] Objective - Vital Signs/Intake and Output Vital Signs (last 24 hours): Temp Pulse Resp BP Pulse Ox 98.6 F 81 19 175/87 H 98 09/17/16 04:00 09/17/16 07:37 09/17/16 07:37 09/17/16 07:37 09/17/16 04:00 Intake and Output: 09/17/16 09/17/16 06:59 18:59 Intake Total 480 40 Balance 480 40 - Medications Medications: Current Medications Acetaminophen (Tylenol 325mg Tab) 650 mg PO Q6 PRN PRN Reason: Fever >100.4 F Artificial Tears (Artificial Tears) 0 ml OU QID [facility] Last Admin: 09/16/16 22:00 Dose: 1 drop Epoetin Herve (Procrit) 10,000 unit IV TTS [facility] Last Admin: 09/16/16 11:35 Dose: 10,000 unit Heparin Sodium (Porcine) (Heparin) 3,400 units IVP TTS [facility] Last Admin: 09/16/16 11:34 Dose: 3,400 units Heparin Sodium (Porcine) (Heparin) 5,000 units SC Q12H [facility] Last Admin: 09/16/16 22:02 Dose: 5,000 units Propofol (Diprivan) 1,000 mg in 100 mls @ 2.16 mls/hr IV .Q24H PRN; Protocol; 5 MCG/KG/MIN PRN Reason: TITRATE PER MD ORDER Last Titration: 09/13/16 09:00 Dose: Infused Pantoprazole Sodium (Protonix Susp) 40 mg PO DAILY [facility] Last Admin: 09/16/16 09:36 Dose: 40 mg Valacyclovir HCl (Valtrex) 500 mg PO DAILY [facility] Last Admin: 09/16/16 09:35 Dose: 500 mg - Labs Labs: 09/17/16 06:27 09/17/16 06:27 PT 11.1 SECONDS (9.7-12.2) 09/12/16 20:17 INR 1.0 09/12/16 20:17 APTT 25 SECONDS (21-34) 09/12/16 20:17
--- NOTE | 2016-09-17 11:36 | CP.PCM.PN ---
Subjective - Date & Time of Evaluation Date of Evaluation: 09/17/16 Time of Evaluation: 10:00 - Subjective Subjective: PGY3 on heme/onc Dr. Montanez service: Pt seen and examined at bedside this morning. Intubated but not sedated. Not responding to stimulus. Objective - Vital Signs/Intake and Output Vital Signs (last 24 hours): Temp Pulse Resp BP Pulse Ox 98.6 F 81 19 175/87 H 98 09/17/16 04:00 09/17/16 07:37 09/17/16 07:37 09/17/16 07:37 09/17/16 04:00 Intake and Output: 09/17/16 09/17/16 06:59 18:59 Intake Total 480 40 Balance 480 40 - Medications Medications: Current Medications Acetaminophen (Tylenol 325mg Tab) 650 mg PO Q6 PRN PRN Reason: Fever >100.4 F Artificial Tears (Artificial Tears) 0 ml OU QID [facility] Last Admin: 09/16/16 22:00 Dose: 1 drop Epoetin Herve (Procrit) 10,000 unit IV TTS [facility] Last Admin: 09/16/16 11:35 Dose: 10,000 unit Heparin Sodium (Porcine) (Heparin) 3,400 units IVP TTS [facility] Last Admin: 09/16/16 11:34 Dose: 3,400 units Heparin Sodium (Porcine) (Heparin) 5,000 units SC Q12H [facility] Last Admin: 09/16/16 22:02 Dose: 5,000 units Propofol (Diprivan) 1,000 mg in 100 mls @ 2.16 mls/hr IV .Q24H PRN; Protocol; 5 MCG/KG/MIN PRN Reason: TITRATE PER MD ORDER Last Titration: 09/13/16 09:00 Dose: Infused Pantoprazole Sodium (Protonix Susp) 40 mg PO DAILY [facility] Last Admin: 09/16/16 09:36 Dose: 40 mg Valacyclovir HCl (Valtrex) 500 mg PO DAILY [facility] Last Admin: 09/16/16 09:35 Dose: 500 mg - Labs Labs: 09/17/16 06:27 09/17/16 06:27 PT 11.1 SECONDS (9.7-12.2) 09/12/16 20:17 INR 1.0 09/12/16 20:17 APTT 25 SECONDS (21-34) 09/12/16 20:17 - Constitutional Appears: Non-toxic, No Acute Distress, Chronically Ill - Respiratory Exam Respiratory Exam: Decreased Breath Sounds, NORMAL BREATHING PATTERN Additional comments: intubated - Cardiovascular Exam Cardiovascular Exam: REGULAR RHYTHM, +S1, +S2. absent: Gallop, Rubs - GI/Abdominal Exam GI & Abdominal Exam: Normal Bowel Sounds - Neurological Exam Neurological Exam: Altered Assessment and Plan - Assessment and Plan (Free Text) Assessment: (1) TTP (thrombotic thrombocytopenic purpura) Assessment & Plan: Platelet improving. Plasma exchange resumed per Dr. Montanez for one more day today, need HD immediately before or after plasma exchange. Will consider increasing plasma volume exchange as per attending. Continue monitoring platelet. Pending family decision on Rituximab. Status: Acute (2) Renal failure Assessment & Plan: Acute on chronic Continue HD TTS as per nephro. Status: Acute (3) CHF Assessment & Plan: On LifeVest Status: Acute
[2016-09-17] MEDS: Pantoprazole 40 mg Susp UD PO SCH (12:03)
[2016-09-17] MEDS: Aritificial Tears (15ml) OU SCH ×4 (12:03→22:45)
--- NOTE | 2016-09-17 13:15 | RAD ---
HISTORY: pulmonary edema COMPARISON: Chest x-ray performed 09/16/16 TECHNIQUE: Chest, one view. FINDINGS: Numerous external wires, leads, and devices limit evaluation of the underlying parenchyma. Endotracheal tube, nasogastric tube, and left-sided dialysis catheter appear in satisfactory position. LUNGS: Mild interstitial prominence may reflect infection or edema. Probable small left pleural effusion and/or consolidation. No definite pneumothorax. CARDIOVASCULAR: Cardiomegaly. OSSEOUS STRUCTURES: Degenerative changes. VISUALIZED UPPER ABDOMEN: Unremarkable. OTHER FINDINGS: None. IMPRESSION: Endotracheal tube, nasogastric tube, and left-sided dialysis catheter appear in satisfactory position. Mild interstitial prominence may reflect infection or edema. Probable small left pleural effusion and/or consolidation. Cardiomegaly.
[2016-09-17] MEDS ORDERED: Calcium Gluconate 9.3 MEQ in Sodium Chloride 0.9% 250 ML IV ONE (13:34)
[2016-09-17] MEDS ORDERED: DiphenhydrAMINE 50 mg/ml Inj IVP ONE (13:38)
--- NOTE | 2016-09-17 19:03 | CP.PCM.PN ---
Subjective - Date & Time of Evaluation Date of Evaluation: 09/17/16 Time of Evaluation: 12:00 - Subjective Subjective: clinically same Objective - Vital Signs/Intake and Output Vital Signs (last 24 hours): Temp Pulse Resp BP Pulse Ox 98.1 F 88 27 H 171/87 H 92 L 09/17/16 16:00 09/17/16 18:03 09/17/16 18:03 09/17/16 18:03 09/17/16 18:03 Intake and Output: 09/17/16 09/18/16 18:59 06:59 Intake Total 690 Balance 690 - Medications Medications: Current Medications Acetaminophen (Tylenol 325mg Tab) 650 mg PO Q6 PRN PRN Reason: Fever >100.4 F Artificial Tears (Artificial Tears) 0 ml OU QID [facility] Last Admin: 09/17/16 14:10 Dose: 1 drop Epoetin Herve (Procrit) 10,000 unit IV TTS [facility] Last Admin: 09/16/16 11:35 Dose: 10,000 unit Heparin Sodium (Porcine) (Heparin) 3,400 units IVP TTS [facility] Last Admin: 09/16/16 11:34 Dose: 3,400 units Heparin Sodium (Porcine) (Heparin) 5,000 units SC Q12H [facility] Last Admin: 09/17/16 12:02 Dose: 5,000 units Propofol (Diprivan) 1,000 mg in 100 mls @ 2.16 mls/hr IV .Q24H PRN; Protocol; 5 MCG/KG/MIN PRN Reason: TITRATE PER MD ORDER Last Titration: 09/13/16 09:00 Dose: Infused Pantoprazole Sodium (Protonix Susp) 40 mg PO DAILY [facility] Last Admin: 09/17/16 12:03 Dose: 40 mg Valacyclovir HCl (Valtrex) 500 mg PO DAILY [facility] Last Admin: 09/17/16 12:02 Dose: 500 mg - Labs Labs: 09/17/16 06:27 09/17/16 06:27 PT 11.1 SECONDS (9.7-12.2) 09/12/16 20:17 INR 1.0 09/12/16 20:17 APTT 25 SECONDS (21-34) 09/12/16 20:17 - Constitutional Appears: Well - Head Exam Head Exam: ATRAUMATIC, NORMAL INSPECTION, NORMOCEPHALIC - Eye Exam Eye Exam: EOMI, Normal appearance, PERRL Pupil Exam: NORMAL ACCOMODATION, PERRL - ENT Exam ENT Exam: Mucous Membranes Moist, Normal Exam - Neck Exam Neck Exam: Full ROM, Normal Inspection. absent: Lymphadenopathy - Respiratory Exam Respiratory Exam: Decreased Breath Sounds - Cardiovascular Exam Cardiovascular Exam: REGULAR RHYTHM, +S1, +S2 - GI/Abdominal Exam GI & Abdominal Exam: Soft, Diminished Bowel Sounds - Rectal Exam Rectal Exam: Deferred Assessment and Plan (1) Cardiac dysrhythmia Status: Acute (2) ESRD (end stage renal disease) on dialysis Status: Acute (3) Pulmonary edema Status: Acute (4) MARCO (acute kidney injury) Status: Acute (5) Acute respiratory failure requiring reintubation Status: Acute (6) Arthritis Status: Acute (7) CHF (congestive heart failure) Status: Acute (8) Dehydration Status: Acute (9) Dehydration Status: Acute (10) Diverticulosis Status: Acute (11) Elevated CEA Status: Acute (12) Hypertension Status: Acute (13) Inguinal lymphadenopathy Status: Acute (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
--- NOTE | 2016-09-18 05:40 | PN ---
The patient is located in ICU, bed #1. REQUESTED BY: Dr. Kavon Ureña. SUBJECTIVE: Mrs. Denise Garcia is an 80 years old elderly female with a history of hypertension, rheumatoid arthritis, TTP, cardiomyopathy, respiratory failure on ventilator for the last one week. The patient is arousable, following commands. The patient's family is at bedside this morning. Not in distress. PHYSICAL EXAMINATION: GENERAL: Mrs. Denise Garcia is an 80 years old elderly female, moderately built, moderately nourished, on ventilator. VITAL SIGNS: As follows; blood pressure 156/104, respirations 15, pulse 93, temperature 98.9 and saturation 97%. HEENT: Pupils are normal reactive to light and accommodation. Conjunctivae pink. Legally blind. Sclerae anicteric, on ventilator. LUNGS: Symmetrical on both sides. Bilateral breath sounds present. Occasional basal crackles present. CVS: [place] at the fifth intercostal space, midclavicular line. S1 and S2 audible. No murmur or gallop. ABDOMEN: Normal in appearance. Soft and tympanic. No guarding, no rigidity. No hepatosplenomegaly. 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 EXTREMITIES: No cyanosis, no clubbing, no edema. CURRENT MEDICATIONS: Include as follows; Artificial tears, propofol, subq heparin 5000 q. 12 hours, Epogen 10,000 units 3 times a week, Protonix 40 mg daily, Tylenol and valacyclovir. LABORATORY DATA: As follows; as of 09/17/2016, WBC 7.4, hemoglobin 8.7, hematocrit 27 and platelets 139. ABG, pH 7.59, pCO2 of 42, pO2 of 80, bicarb 38.2 and saturation 98.8, with a vent setting CPAP with a pressure support of 10 and FiO2 of 50%. Sodium 137, potassium 3.7, chloride 95, CO2 of 22, BUN 32, creatinine is 3, glucose 169, calcium 8, phosphorus 2.8 and magnesium 2. Total bilirubin 0.5, AST 114, ALT 121, alkaline phosphatase 186, total protein 5.6, and albumin is 3.1. ASSESSMENT AND PLAN: In summary, Mrs. 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 1. Renal failure, most likely, end-stage renal disease cannot rule out acute on chronic kidney disease, rule out thrombotic microangiopathy, rule out acute tubular necrosis. No evidence of recovery of renal function at this time, continue hemodialysis 3 times a week. 2. Hypertension. 3. Thrombocytopenia, secondary to thrombotic thrombocytopenic purpura, platelets are improving nicely. 4. Cardiomyopathy. 5. Respiratory failure. Continue to try to wean her off ventilator as tolerated. Overall, prognosis very poor. Thank you for allowing me to participate in your patient's care. For HD in a.m. Horacio Graham MD
[2016-09-18 06:21] LABS: BASO % 0.2 % (0.0-2.0); HEMATOCRIT 23.8 % (34.0-47.0); LYMPH # 0.7 K/uL (1.0-4.3); LYMPH % 9.4 % (20.0-40.0); MEAN CELL VOLUME 95.4 fL (81.0-99.0); MEAN CORPUSCULAR HEMOGLOBIN 31.1 pg (27.0-31.0); MEAN CORPUSCULAR HGB CONC 32.6 g/dL (33.0-37.0); MONO # 0.5 K/uL (0.0-0.8); MONO % 6.5 % (0.0-10.0); NRBC % 0.1 % (0.0-2.0); PLATELET COUNT 153 K/uL (130-400); RED CELL DISTRIBUTION WIDTH 17.8 % (11.5-14.5); WHITE BLOOD COUNT 7.9 K/uL (4.8-10.8)
[2016-09-18 06:55] LABS: ALB/GLOB RATIO 1.2 (1.0-2.1); TOTAL PROTEIN 5.2 g/dL (6.3-8.3)
[2016-09-18 06:56] LABS: ALB/GLOB RATIO 1.2 (1.0-2.1); BILIRUBIN,DIRECT 0.3 mg/dL (0.0-0.4); BILIRUBIN,TOTAL 0.3 mg/dL (0.2-1.3); TOTAL PROTEIN 5.1 g/dL (6.3-8.3)
[2016-09-18 06:58] LABS: BILIRUBIN,TOTAL 0.4 mg/dL (0.2-1.3); PHOSPHOROUS 3.9 mg/dL (2.5-4.5); POTASSIUM 3.5 mmol/L (3.6-5.2)
[2016-09-18 08:28] LABS: TOTAL CELLS COUNTED 100
[2016-09-18 08:30] LABS: NEUTROPHIL 85 % (50-75)
--- NOTE | 2016-09-18 09:26 | CP.CCUPN ---
<Alessandro Sims - Last Filed: 09/18/16 16:53> CCU Objective - Vital Signs / Intake & Output Vital Signs (Last 4 hours): Vital Signs Temp Pulse Resp BP Pulse Ox 09/18/16 16:00 98.5 F 79 24 96 09/18/16 15:58 80 24 166/88 H 96 09/18/16 15:43 81 24 167/86 H 95 09/18/16 15:28 79 24 164/83 H 95 09/18/16 15:13 80 25 H 160/84 H 95 09/18/16 15:00 78 24 96 09/18/16 14:58 78 23 166/88 H 97 09/18/16 14:44 82 23 170/92 H 98 09/18/16 14:29 83 25 H 178/99 H 96 09/18/16 14:14 87 20 175/101 H 98 09/18/16 14:00 84 21 96 09/18/16 13:59 84 23 176/93 H 96 09/18/16 13:44 86 23 173/88 H 95 09/18/16 13:29 95 H 26 H 166/91 H 92 L 09/18/16 13:14 90 16 163/97 H 94 L 09/18/16 13:00 87 14 94 L 09/18/16 12:59 86 23 178/91 H 92 L Intake and Output (Last 8hrs): Intake & Output 09/18/16 09/18/16 09/18/16 06:59 14:59 22:59 Intake Total 0 0 0 Output Total 0 0 Balance 0 0 0 Weight 148 lb Intake: Oral 0 0 0 Output: Stool 0 0 Other: # Bowel Movements 1 - Medications Active Medications: Active Medications Generic Name Dose Route Start Last Admin Trade Name Freq PRN Reason Stop Dose Admin Acetaminophen 650 mg 08/16/16 03:42 Tylenol 325mg Tab PO Q6 PRN Fever >100.4 F Artificial Tears 0 ml 08/16/16 14:00 09/18/16 13:51 Artificial Tears OU 1 drop QID JESSI Administration Epoetin Herve 10,000 unit 09/04/16 11:15 09/18/16 11:23 Procrit IV 10,000 unit TTS JESSI Administration Heparin Sodium (Porcine) 5,000 units 09/15/16 22:00 09/18/16 13:50 Heparin SC 5,000 units Q12H JESSI Administration Propofol 1,000 mg in 100 mls @ 2.16 mls/hr 09/11/16 16:17 09/13/16 09:00 Diprivan IV Infused .Q24H PRN Titration TITRATE PER MD ORDER Protocol 5 MCG/KG/MIN Pantoprazole Sodium 40 mg 09/12/16 10:00 09/18/16 13:50 Protonix Susp PO Not Given DAILY JESSI Valacyclovir HCl 500 mg 08/16/16 10:00 09/18/16 13:51 Valtrex PO Not Given DAILY JESSI - Patient Studies Lab Studies: Lab Studies 09/18/16 09/18/16 09/18/16 Range/Units 12:45 06:10 06:10 WBC 7.9 (4.8-10.8) K/uL RBC 2.50 L (3.80-5.20) Mil/uL Hgb 7.8 L (11.0-16.0) g/dL Hct 23.8 L (34.0-47.0) % MCV 95.4 (81.0-99.0) fL MCH 31.1 H (27.0-31.0) pg MCHC 32.6 L (33.0-37.0) g/dL RDW 17.8 H (11.5-14.5) % Plt Count 153 (130-400) K/uL MPV 10.0 (7.2-11.7) fL Neut % (Auto) 83.9 H (50.0-75.0) % Lymph % (Auto) 9.4 L (20.0-40.0) % [place] % (Auto) 6.5 (0.0-10.0) % Eos % (Auto) 0.0 (0.0-4.0) % Baso % (Auto) 0.2 (0.0-2.0) % Neut # 6.6 (1.8-7.0) K/uL Lymph # 0.7 L (1.0-4.3) K/uL [place] # 0.5 (0.0-0.8) K/uL Eos # 0.0 (0.0-0.7) K/uL Baso # 0.0 (0.0-0.2) K/uL Neutrophils % (Manual) 85 H (50-75) % Band Neutrophils % 1 (0-2) % Lymphocytes % (Manual) 8 L (20-40) % Monocytes % (Manual) 4 (0-10) % Platelet Estimate Normal (NORMAL) Hypochromasia (manual) Moderate Poikilocytosis (manual Slight Anisocytosis (manual) Slight Microcytosis (manual) Slight Macrocytosis (manual) Slight Target Cells Slight Tear Drop Cells Slight Sodium 141 (132-148) mmol/L Potassium 3.5 L (3.6-5.2) mmol/L Chloride 94 L (98-107) mmol/L Carbon Dioxide 39 H (22-30) mmol/L Anion Gap 12 (10-20) BUN 46 H (7-17) mg/dL Creatinine 3.6 H (0.7-1.2) MG/DL Est GFR ( Amer) 15 Est GFR (Non-Af Amer) 12 POC Glucose (mg/dL) 116 H (65-110) mg/dL Random Glucose 148 H (65-105) mg/dL Calcium 8.0 L (8.6-10.4) mg/dl Phosphorus 3.9 (2.5-4.5) mg/dL Magnesium 2.0 (1.6-2.3) mg/dL Total Bilirubin 0.4 (0.2-1.3) mg/dL Direct Bilirubin (0.0-0.4) mg/dL AST 68 H (14-36) U/L ALT 79 H (9-52) U/L Alkaline Phosphatase 112 (38-126) U/L Total Protein 5.2 L (6.3-8.3) g/dL Albumin 2.8 L (3.5-5.0) g/dL Globulin 2.4 (2.2-3.9) gm/dL Albumin/Globulin Ratio 1.2 (1.0-2.1) 09/18/16 Range/Units 06:10 WBC (4.8-10.8) K/uL RBC (3.80-5.20) Mil/uL Hgb (11.0-16.0) g/dL Hct (34.0-47.0) % MCV (81.0-99.0) fL MCH (27.0-31.0) pg MCHC (33.0-37.0) g/dL RDW (11.5-14.5) % Plt Count (130-400) K/uL MPV (7.2-11.7) fL Neut % (Auto) (50.0-75.0) % Lymph % (Auto) (20.0-40.0) % [place] % (Auto) (0.0-10.0) % Eos % (Auto) (0.0-4.0) % Baso % (Auto) (0.0-2.0) % Neut # (1.8-7.0) K/uL Lymph # (1.0-4.3) K/uL [place] # (0.0-0.8) K/uL Eos # (0.0-0.7) K/uL Baso # (0.0-0.2) K/uL Neutrophils % (Manual) (50-75) % Band Neutrophils % (0-2) % Lymphocytes % (Manual) (20-40) % Monocytes % (Manual) (0-10) % Platelet Estimate (NORMAL) Hypochromasia (manual) Poikilocytosis (manual Anisocytosis (manual) Microcytosis (manual) Macrocytosis (manual) Target Cells Tear Drop Cells Sodium (132-148) mmol/L Potassium (3.6-5.2) mmol/L Chloride (98-107) mmol/L Carbon Dioxide (22-30) mmol/L Anion Gap (10-20) BUN (7-17) mg/dL Creatinine (0.7-1.2) MG/DL Est GFR ( Amer) Est GFR (Non-Af Amer) POC Glucose (mg/dL) (65-110) mg/dL Random Glucose (65-105) mg/dL Calcium (8.6-10.4) mg/dl Phosphorus (2.5-4.5) mg/dL Magnesium (1.6-2.3) mg/dL Total Bilirubin 0.3 (0.2-1.3) mg/dL Direct Bilirubin 0.3 (0.0-0.4) mg/dL AST 60 H D (14-36) U/L ALT 82 H D (9-52) U/L Alkaline Phosphatase 111 (38-126) U/L Total Protein 5.1 L (6.3-8.3) g/dL Albumin 2.8 L (3.5-5.0) g/dL Globulin 2.3 (2.2-3.9) gm/dL Albumin/Globulin Ratio 1.2 (1.0-2.1) Laboratory Results - last 24 hr 09/18/16 09/18/16 09/18/16 06:10 06:10 06:10 WBC 7.9 RBC 2.50 L Hgb 7.8 L Hct 23.8 L MCV 95.4 MCH 31.1 H MCHC 32.6 L RDW 17.8 H Plt Count 153 MPV 10.0 Neut % (Auto) 83.9 H Lymph % (Auto) 9.4 L [place] % (Auto) 6.5 Eos % (Auto) 0.0 Baso % (Auto) 0.2 Neut # 6.6 Lymph # 0.7 L [place] # 0.5 Eos # 0.0 Baso # 0.0 Neutrophils % (Manual) 85 H Band Neutrophils % 1 Lymphocytes % (Manual) 8 L Monocytes % (Manual) 4 Platelet Estimate Normal Hypochromasia (manual) Moderate Poikilocytosis (manual Slight Anisocytosis (manual) Slight Microcytosis (manual) Slight Macrocytosis (manual) Slight Target Cells Slight Tear Drop Cells Slight Sodium 141 Potassium 3.5 L Chloride 94 L Carbon Dioxide 39 H Anion Gap 12 BUN 46 H Creatinine 3.6 H Est GFR ( Amer) 15 Est GFR (Non-Af Amer) 12 POC Glucose (mg/dL) Random Glucose 148 H Calcium 8.0 L Phosphorus 3.9 Magnesium 2.0 Total Bilirubin 0.3 0.4 Direct Bilirubin 0.3 AST 60 H D 68 H ALT 82 H D 79 H Alkaline Phosphatase 111 112 Total Protein 5.1 L 5.2 L Albumin 2.8 L 2.8 L Globulin 2.3 2.4 Albumin/Globulin Ratio 1.2 1.2 09/18/16 12:45 WBC RBC Hgb Hct MCV MCH MCHC RDW Plt Count MPV Neut % (Auto) Lymph % (Auto) [place] % (Auto) Eos % (Auto) Baso % (Auto) Neut # Lymph # [place] # Eos # Baso # Neutrophils % (Manual) Band Neutrophils % Lymphocytes % (Manual) Monocytes % (Manual) Platelet Estimate Hypochromasia (manual) Poikilocytosis (manual Anisocytosis (manual) Microcytosis (manual) Macrocytosis (manual) Target Cells Tear Drop Cells Sodium Potassium Chloride Carbon Dioxide Anion Gap BUN Creatinine Est GFR ( Amer) Est GFR (Non-Af Amer) POC Glucose (mg/dL) 116 H Random Glucose Calcium Phosphorus Magnesium Total Bilirubin Direct Bilirubin AST ALT Alkaline Phosphatase Total Protein Albumin Globulin Albumin/Globulin Ratio Critical Care Progress Note - Nutrition Nutrition: Nutrition Category Date Time Status Renal Diet [DIET] Diets 08/16/16 Dinner Active Assessment/Plan (1) Pulmonary edema Current Visit: Yes Status: Acute Attending/Attestation - Attestation I have personally seen and examined this patient.: Yes I have fully participated in the care of the patient.: Yes I have reviewed all pertinent clinical information: Yes Notes (Text): 09/18/16 16:53 I have seen and examined the patient. Medical records, lab studies, and imaging were reviewed by me and a management plan was formulated on multidisciplinary rounds with resident Dr. Laughlin. I agree with their above documented assessment and plan. Spoke with two daughters of the patient, they seem to be amenable to trying Rituximab for her TTP. They will give consent tomorrow to Dr. Montanez - hem/onc. They understand the risk of infection and possibly , but these risks are outweighed by the possible benefit for them, as the patient may from TTP itself. Critical Care Time 35 minutes. Multi-disciplinary rounds were performed with house staff, nursing, speech therapy, respiratory therapy, pharmacy and nutrition with integrated input from the primary team/attending and other consulting services. The documented time is cumulative and includes review of patient data/exams/labs/chart review and examination of the patient on rounds and throughout the day; time is exclusive of any procedures or teaching time. <Carlota Laughlin - Last Filed: 09/18/16 17:46> CCU Subjective - Physician Review Subjective (Free Text): Patient was seen and examined at bedside in the morning. Patient is unresponsive and unable to respond to questions and review of systems. Patient is sometimes responsive to her grandchildren (opens eyes and squeezes their hand). 09/18/16 10:00 CCU Objective - Vital Signs / Intake & Output Vital Signs (Last 4 hours): Vital Signs Pulse Resp BP Pulse Ox 09/18/16 07:03 80 22 185/93 H 92 L 08/10/17 07:00 83 24 93 L 09/18/16 06:21 92 H 20 171/78 H 92 L 09/18/16 06:03 76 19 176/69 H 94 L 09/18/16 06:00 69 21 94 L Intake and Output (Last 8hrs): Intake & Output 09/17/16 09/18/16 09/18/16 22:59 06:59 14:59 Intake Total 370 0 0 Balance 370 0 0 Weight 148 lb Intake: Intake, IV Amount 250 Left Upper arm 250 Oral 0 0 0 Tube Feeding 120 Other: # Bowel Movements 0 1 - Physical Exam Head: Positive for: Atraumatic, Normocephalic Mouth: Positive for: Moist Mucous Membranes Respiratory/Chest: Positive for: Decreased Breath Sounds. Negative for: Clear to Auscultation, Wheezes, Rhonchi Cardiovascular: Positive for: Normal S1, S2, Irregular Rhythm Abdomen: Positive for: Normal Bowel Sounds. Negative for: Distention Upper Extremity: Negative for: Edema, Swelling Lower Extremity: Positive for: Edema, Swelling. Negative for: NORMAL PULSES ( diminished) Neurological: Negative for: GCS=15, Speech Normal Skin: Positive for: Warm, Dry, Normal Color Psychiatric: Negative for: Alert, Oriented x 3, Normal Insight, Normal Concentration - Medications Active Medications: Active Medications Generic Name Dose Route Start Last Admin Trade Name Freq PRN Reason Stop Dose Admin Acetaminophen 650 mg 08/16/16 03:42 Tylenol 325mg Tab PO Q6 PRN Fever >100.4 F Artificial Tears 0 ml 08/16/16 14:00 09/17/16 22:45 Artificial Tears OU 1 drop QID JESSI Administration Epoetin Herve 10,000 unit 09/04/16 11:15 09/16/16 11:35 Procrit IV 10,000 unit TTS JESSI Administration Heparin Sodium (Porcine) 5,000 units 09/15/16 22:00 09/17/16 22:45 Heparin SC 5,000 units Q12H JESSI Administration Propofol 1,000 mg in 100 mls @ 2.16 mls/hr 09/11/16 16:17 09/13/16 09:00 Diprivan IV Infused .Q24H PRN Titration TITRATE PER MD ORDER Protocol 5 MCG/KG/MIN Pantoprazole Sodium 40 mg 09/12/16 10:00 09/17/16 12:03 Protonix Susp PO 40 mg DAILY JESSI Administration Valacyclovir HCl 500 mg 08/16/16 10:00 09/17/16 12:02 Valtrex PO 500 mg DAILY JESSI Administration - Patient Studies Lab Studies: Lab Studies 09/18/16 09/18/16 09/18/16 Range/Units 06:10 06:10 06:10 WBC 7.9 (4.8-10.8) K/uL RBC 2.50 L (3.80-5.20) Mil/uL Hgb 7.8 L (11.0-16.0) g/dL Hct 23.8 L (34.0-47.0) % MCV 95.4 (81.0-99.0) fL MCH 31.1 H (27.0-31.0) pg MCHC 32.6 L (33.0-37.0) g/dL RDW 17.8 H (11.5-14.5) % Plt Count 153 (130-400) K/uL MPV 10.0 (7.2-11.7) fL Neut % (Auto) 83.9 H (50.0-75.0) % Lymph % (Auto) 9.4 L (20.0-40.0) % [place] % (Auto) 6.5 (0.0-10.0) % Eos % (Auto) 0.0 (0.0-4.0) % Baso % (Auto) 0.2 (0.0-2.0) % Neut # 6.6 (1.8-7.0) K/uL Lymph # 0.7 L (1.0-4.3) K/uL [place] # 0.5 (0.0-0.8) K/uL Eos # 0.0 (0.0-0.7) K/uL Baso # 0.0 (0.0-0.2) K/uL Neutrophils % (Manual) 85 H (50-75) % Band Neutrophils % 1 (0-2) % Lymphocytes % (Manual) 8 L (20-40) % Monocytes % (Manual) 4 (0-10) % Platelet Estimate Normal (NORMAL) Hypochromasia (manual) Moderate Poikilocytosis (manual Slight Anisocytosis (manual) Slight Microcytosis (manual) Slight Macrocytosis (manual) Slight Target Cells Slight Tear Drop Cells Slight Sodium 141 (132-148) mmol/L Potassium 3.5 L (3.6-5.2) mmol/L Chloride 94 L (98-107) mmol/L Carbon Dioxide 39 H (22-30) mmol/L Anion Gap 12 (10-20) BUN 46 H (7-17) mg/dL Creatinine 3.6 H (0.7-1.2) MG/DL Est GFR ( Amer) 15 Est GFR (Non-Af Amer) 12 Random Glucose 148 H (65-105) mg/dL Calcium 8.0 L (8.6-10.4) mg/dl Phosphorus 3.9 (2.5-4.5) mg/dL Magnesium 2.0 (1.6-2.3) mg/dL Total Bilirubin 0.4 0.3 (0.2-1.3) mg/dL Direct Bilirubin 0.3 (0.0-0.4) mg/dL AST 68 H 60 H D (14-36) U/L ALT 79 H 82 H D (9-52) U/L Alkaline Phosphatase 112 111 (38-126) U/L Total Protein 5.2 L 5.1 L (6.3-8.3) g/dL Albumin 2.8 L 2.8 L (3.5-5.0) g/dL Globulin 2.4 2.3 (2.2-3.9) gm/dL Albumin/Globulin Ratio 1.2 1.2 (1.0-2.1) Laboratory Results - last 24 hr 09/18/16 09/18/16 09/18/16 06:10 06:10 06:10 WBC 7.9 RBC 2.50 L Hgb 7.8 L Hct 23.8 L MCV 95.4 MCH 31.1 H MCHC 32.6 L RDW 17.8 H Plt Count 153 MPV 10.0 Neut % (Auto) 83.9 H Lymph % (Auto) 9.4 L [place] % (Auto) 6.5 Eos % (Auto) 0.0 Baso % (Auto) 0.2 Neut # 6.6 Lymph # 0.7 L [place] # 0.5 Eos # 0.0 Baso # 0.0 Neutrophils % (Manual) 85 H Band Neutrophils % 1 Lymphocytes % (Manual) 8 L Monocytes % (Manual) 4 Platelet Estimate Normal Hypochromasia (manual) Moderate Poikilocytosis (manual Slight Anisocytosis (manual) Slight Microcytosis (manual) Slight Macrocytosis (manual) Slight Target Cells Slight Tear Drop Cells Slight Sodium 141 Potassium 3.5 L Chloride 94 L Carbon Dioxide 39 H Anion Gap 12 BUN 46 H Creatinine 3.6 H Est GFR ( Amer) 15 Est GFR (Non-Af Amer) 12 Random Glucose 148 H Calcium 8.0 L Phosphorus 3.9 Magnesium 2.0 Total Bilirubin 0.3 0.4 Direct Bilirubin 0.3 AST 60 H D 68 H ALT 82 H D 79 H Alkaline Phosphatase 111 112 Total Protein 5.1 L 5.2 L Albumin 2.8 L 2.8 L Globulin 2.3 2.4 Albumin/Globulin Ratio 1.2 1.2 Fingerstick Blood Sugar Results: 134 Review of Systems - Review of Systems Systems not reviewed;Unavailable: Uncooperative (does not respond) Critical Care Progress Note - Nutrition Nutrition: Nutrition Category Date Time Status Renal Diet [DIET] Diets 08/16/16 Dinner Active Assessment/Plan (1) Pulmonary edema Assessment and plan: 80-year-old female with past medical history of systolic CHF (EF-10%). 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 Now in recurrent respiratory failure from flash pulmonary edema s/p plasma exchange. In ICU, intubated. Chest xray is improving, pressure support successful and patient was extubated on 09/17/16. Patient received plasma exchange on 09/16, 09/17, and is scheduled to receive today, 09/18/16. Neuro: off sedation - Head CT: no intracranial mass, hemorrhage, or acute infarct. 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 Chronic paranasal sinusitis; nonspecific right mastoid effusion Pulm: Acute respiratory failure secondary to pulmonary edema status post plasma exchange. Intubated on vent. Will dialyze to remove fluid. - extubated on 09/17/16; on ventimask 50% CV: Hemodynamically stable. Hypertensive, the pressure will drop with dialysis. 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 - Discussed plan of care with Dr. Montanez. - Platelet number is [phone] today - As per Dr. Montanez, patient needs 2 more sessions of plasma exchange; will have a session tonight - Patient may start treatment with Rituximab Renal: End-stage renal disease now on chronic dialysis - Diaylsis T//Thu - Dialyzed today Endo: No acute issues GI: NPO - Tube feeds, renal formula. - Protonix - Elevated Liver enzymes- improving ID: No acute issues. Skin: - Sacral ulcer, stage 2 - Wound care DVT proph - heparin subcutaneous GI proph - Protonix PT/OT Cole catheter- monitor I/O Code status - full code Palliative care consulted Current Visit: Yes Status: Acute
--- NOTE | 2016-09-18 11:03 | RAD ---
Chest x-ray single frontal view History: Intubated. Comparison: 09/17/2016 Findings: Interval removal of an endotracheal and NG tube. Left central venous catheter tip extending to the cavoatrial junction. Biapical pleural thickening with upper lobe granulomatous changes. Moderate to severe venous congestion with patchy bibasilar airspace opacities and small bilateral pleural effusions. Right hilar prominence. Left paratracheal airspace opacity may represent prominent vasculature. Cardiomegaly. Calcification at the aortic knob. Degenerative changes in the spine and shoulders. Calcific tendinopathy of the right proximal humerus. Multiple external electronic devices noted. Impression: Interval removal of an endotracheal and NG tube. Left central venous catheter tip extending to the cavoatrial junction. Biapical pleural thickening with upper lobe granulomatous changes. Moderate to severe venous congestion with patchy bibasilar airspace opacities and small bilateral pleural effusions. Right hilar prominence. Left paratracheal airspace opacity may represent prominent vasculature. Cardiomegaly. Calcification at the aortic knob. Degenerative changes in the spine and shoulders. Calcific tendinopathy of the right proximal humerus. Multiple external electronic devices noted.
[2016-09-18] MEDS: Epoetin Alfa 10,000 unit/ml Dialysis IV SCH (11:23)
[2016-09-18] MEDS: Aritificial Tears (15ml) OU SCH ×4 (13:49→21:21)
[2016-09-18] MEDS: Pantoprazole 40 mg Susp UD PO SCH (13:50)
--- NOTE | 2016-09-18 16:29 | CP.PCM.PN ---
Subjective - Date & Time of Evaluation Date of Evaluation: 09/18/16 Time of Evaluation: 11:40 - Subjective Subjective: clinically same Objective - Vital Signs/Intake and Output Vital Signs (last 24 hours): Temp Pulse Resp BP Pulse Ox 98.5 F 79 24 166/88 H 96 09/18/16 16:00 09/18/16 16:00 09/18/16 16:00 09/18/16 15:58 09/18/16 16:00 Intake and Output: 09/18/16 09/18/16 06:59 18:59 Intake Total 0 0 Output Total 0 Balance 0 0 - Medications Medications: Current Medications Acetaminophen (Tylenol 325mg Tab) 650 mg PO Q6 PRN PRN Reason: Fever >100.4 F Artificial Tears (Artificial Tears) 0 ml OU QID [facility] Last Admin: 09/18/16 13:51 Dose: 1 drop Epoetin Herve (Procrit) 10,000 unit IV TTS [facility] Last Admin: 09/18/16 11:23 Dose: 10,000 unit Heparin Sodium (Porcine) (Heparin) 5,000 units SC Q12H [facility] Last Admin: 09/18/16 13:50 Dose: 5,000 units Propofol (Diprivan) 1,000 mg in 100 mls @ 2.16 mls/hr IV .Q24H PRN; Protocol; 5 MCG/KG/MIN PRN Reason: TITRATE PER MD ORDER Last Titration: 09/13/16 09:00 Dose: Infused Pantoprazole Sodium (Protonix Susp) 40 mg PO DAILY [facility] Last Admin: 09/18/16 13:50 Dose: Not Given Valacyclovir HCl (Valtrex) 500 mg PO DAILY [facility] Last Admin: 09/18/16 13:51 Dose: Not Given - Labs Labs: 09/18/16 06:10 09/18/16 06:10 PT 11.1 SECONDS (9.7-12.2) 09/12/16 20:17 INR 1.0 09/12/16 20:17 APTT 25 SECONDS (21-34) 09/12/16 20:17 - Constitutional Appears: Well - Head Exam Head Exam: ATRAUMATIC, NORMAL INSPECTION, NORMOCEPHALIC - Eye Exam Eye Exam: EOMI, Normal appearance, PERRL Pupil Exam: NORMAL ACCOMODATION, PERRL - ENT Exam ENT Exam: Mucous Membranes Moist, Normal Exam - Neck Exam Neck Exam: Full ROM, Normal Inspection. absent: Lymphadenopathy - Respiratory Exam Respiratory Exam: Decreased Breath Sounds - Cardiovascular Exam Cardiovascular Exam: REGULAR RHYTHM, +S1, +S2 - GI/Abdominal Exam GI & Abdominal Exam: Soft, Diminished Bowel Sounds - Rectal Exam Rectal Exam: Deferred Assessment and Plan (1) Cardiac dysrhythmia Status: Acute (2) ESRD (end stage renal disease) on dialysis Status: Acute (3) Pulmonary edema Status: Acute (4) MARCO (acute kidney injury) Status: Acute (5) Acute respiratory failure requiring reintubation Status: Acute (6) Arthritis Status: Acute (7) CHF (congestive heart failure) Status: Acute (8) Dehydration Status: Acute (9) Dehydration Status: Acute (10) Diverticulosis Status: Acute (11) Elevated CEA Status: Acute (12) Hypertension Status: Acute (13) Inguinal lymphadenopathy Status: Acute (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
--- NOTE | 2016-09-18 20:29 | CP.PCM.PN ---
Subjective - Date & Time of Evaluation Date of Evaluation: 09/18/16 Time of Evaluation: 20:28 - Subjective Subjective: pt is seen and examined, follow up consult is dictated #[id number] Objective - Vital Signs/Intake and Output Vital Signs (last 24 hours): Temp Pulse Resp BP Pulse Ox 98.5 F 77 23 161/85 H 96 09/18/16 16:00 09/18/16 18:00 09/18/16 18:00 09/18/16 17:58 09/18/16 18:00 Intake and Output: 09/18/16 09/19/16 18:59 06:59 Intake Total 0 Output Total 0 Balance 0 - Medications Medications: Current Medications Acetaminophen (Tylenol 325mg Tab) 650 mg PO Q6 PRN PRN Reason: Fever >100.4 F Artificial Tears (Artificial Tears) 0 ml OU QID [facility] Last Admin: 09/18/16 17:03 Dose: 1 drop Epoetin Herve (Procrit) 10,000 unit IV TTS [facility] Last Admin: 09/18/16 11:23 Dose: 10,000 unit Heparin Sodium (Porcine) (Heparin) 5,000 units SC Q12H [facility] Last Admin: 09/18/16 13:50 Dose: 5,000 units Propofol (Diprivan) 1,000 mg in 100 mls @ 2.16 mls/hr IV .Q24H PRN; Protocol; 5 MCG/KG/MIN PRN Reason: TITRATE PER MD ORDER Last Titration: 09/13/16 09:00 Dose: Infused Pantoprazole Sodium (Protonix Susp) 40 mg PO DAILY [facility] Last Admin: 09/18/16 13:50 Dose: Not Given Valacyclovir HCl (Valtrex) 500 mg PO DAILY [facility] Last Admin: 09/18/16 13:51 Dose: Not Given - Labs Labs: 09/18/16 06:10 09/18/16 06:10 PT 11.1 SECONDS (9.7-12.2) 09/12/16 20:17 INR 1.0 09/12/16 20:17 APTT 25 SECONDS (21-34) 09/12/16 20:17
[2016-09-18] MEDS: Nitroglycerin 2% Ointment Foilpak UD TOP SCH (21:21)
[2016-09-18] MEDS ORDERED: DiphenhydrAMINE 50 mg/ml Inj IVP ONE (21:45)
[2016-09-18] MEDS ORDERED: Calcium Gluconate 9.3 MEQ in Sodium Chloride 0.9% 250 ML IV ONE (22:00)
[2016-09-19] MEDS: Nitroglycerin 2% Ointment Foilpak UD TOP SCH ×4 (03:13→22:32)
--- NOTE | 2016-09-19 05:54 | CP.PCM.PN ---
Subjective - Date & Time of Evaluation Date of Evaluation: 09/18/16 Time of Evaluation: 20:20 - Subjective Subjective: Appears comfortable family at bedside Objective - Vital Signs/Intake and Output Vital Signs (last 24 hours): Temp Pulse Resp BP Pulse Ox 98.6 F 86 18 170/88 H 96 09/19/16 00:00 09/19/16 04:00 09/19/16 04:00 09/19/16 03:56 09/19/16 04:00 Intake and Output: 09/18/16 09/19/16 18:59 06:59 Intake Total 0 250 Output Total 0 Balance 0 250 - Medications Medications: Current Medications Acetaminophen (Tylenol 325mg Tab) 650 mg PO Q6 PRN PRN Reason: Fever >100.4 F Artificial Tears (Artificial Tears) 0 ml OU QID [facility] Last Admin: 09/18/16 21:21 Dose: 1 drop Epoetin Herve (Procrit) 10,000 unit IV TTS [facility] Last Admin: 09/18/16 11:23 Dose: 10,000 unit Propofol (Diprivan) 1,000 mg in 100 mls @ 2.16 mls/hr IV .Q24H PRN; Protocol; 5 MCG/KG/MIN PRN Reason: TITRATE PER MD ORDER Last Titration: 09/13/16 09:00 Dose: Infused Nitroglycerin (Nitro-Bid 2% Oint) 1 ea TOP Q6H [facility] Last Admin: 09/19/16 03:13 Dose: 1 ea Pantoprazole Sodium (Protonix Susp) 40 mg PO DAILY [facility] Last Admin: 09/18/16 13:50 Dose: Not Given Valacyclovir HCl (Valtrex) 500 mg PO DAILY [facility] Last Admin: 09/18/16 13:51 Dose: Not Given - Labs Labs: 09/18/16 06:10 09/18/16 06:10 PT 11.1 SECONDS (9.7-12.2) 09/12/16 20:17 INR 1.0 09/12/16 20:17 APTT 25 SECONDS (21-34) 09/12/16 20:17 - Head Exam Head Exam: ATRAUMATIC - Eye Exam Eye Exam: Normal appearance - ENT Exam ENT Exam: Mucous Membranes Dry - Respiratory Exam Respiratory Exam: NORMAL BREATHING PATTERN - Cardiovascular Exam Cardiovascular Exam: +S1, +S2 - GI/Abdominal Exam GI & Abdominal Exam: Normal Bowel Sounds - Extremities Exam Extremities Exam: Pedal Edema Assessment and Plan (1) TTP (thrombotic thrombocytopenic purpura) Assessment & Plan: relapsed on plasma exchange family considering rituximab Status: Acute
--- NOTE | 2016-09-19 06:26 | PN ---
FOLLOWUP RENAL CONSULTATION The patient is located in ICU, bed 1. REQUESTED BY: Dr. Kavon Ureña. REASON FOR FOLLOWUP: Renal failure, end-stage renal disease, for continuation of the hemodialysis. SUBJECTIVE: Mrs. Denise Garcia is an 80 years old elderly female with a history of long-standing hypertension, arthritis, CHF, cardiomyopathy, thrombocytopenia, renal failure on hemodialysis for the last 6 to 8 weeks. Now who was extubated yesterday and the patient is on facemask. The patient is not in distress. Following commands slightly. PHYSICAL EXAMINATION: VITAL SIGNS: Blood pressure 161/85, pulse 77, respiration 23, saturation is 96%,and temperature is 97.6%. GENERAL: Mrs. Denise Garcia is an 80 years old elderly female, moderately built, moderately nourished, off ventilator on facemask. HEENT: Pupils are normal, reactive to light and accommodation. Conjunctivae pink. Sclerae anicteric. Tongue is moist. Trachea is midline. LUNGS: Symmetry on both sides. Bilateral breath sounds present. No crackles. CARDIOVASCULAR: [place] at the fifth intercostal space, midclavicular line. S1 and S2 audible. No murmur. No gallop. ABDOMEN: Normal in appearance, soft and tympanic. No guarding. No hepatosplenomegaly. CENTRAL NERVOUS SYSTEM: The patient is arousable, following simple commands. EXTREMITIES: No cyanosis, no clubbing, no edema. CURRENT MEDICATIONS: Include as follows; Artificial tears, calcium gluconate, propofol is off, and nitroglycerin 1 inch to anterior chest wall q.6 hours and hold for the systolic blood pressure less than 130, and Procrit 10,000 units 3 times a week, and Protonix 40 mg daily, Tylenol and valacyclovir. LABORATORY DATA: Includes as follows; WBC 7.4, hemoglobin 7.8, hematocrit 23.8, platelets 153. Neutrophils 85, lymphs 1, monos 8, and eosinophils 4. Sodium 141, potassium 3.5 chloride 94, CO2 of 39, BUN 46, creatinine is 3.6, glucose is 148, calcium is 8, phosphorus 3.9 and magnesium is 2. Total bilirubin 0.4, AST 68, ALT 79, alkaline phosphatase 112, total protein 5.2 and albumin is 2.8. IN SUMMARY: Mrs. Denise Garcia is an 80 years old elderly female with a history of hypertension, rheumatoid arthritis, cardiomyopathy, congestive heart failure, status post extubation, thrombotic thrombocytopenic purpura relapse x2, scheduled for a plasmapheresis again for another 2 treatment. 1. Renal failure most likely secondary to end-stage renal disease secondary to thrombotic thrombocytopenic purpura and possible thrombotic microangiopathy cannot be ruled out. 2. Hypertension. 3. Cardiomyopathy. 4. Anemia. 5. Status post thrombocytopenia, platelets are improving after plasmapheresis. The patient is schedule for another 2 treatments of plasmapheresis. Case discussed with Dr. Montanez on rounds. Overall prognosis is guarded. Thank you for allowing me to participate in your patient's care. We will consider hemodialysis if the patient is short of breath or volume overloaded after the plasmapheresis if she develops congestive heart failure. Horacio Graham MD
[2016-09-19 06:55] LABS: BASO % 0.2 % (0.0-2.0); HEMATOCRIT 27.2 % (34.0-47.0); LYMPH # 0.7 K/uL (1.0-4.3); LYMPH % 6.5 % (20.0-40.0); MEAN CELL VOLUME 95.6 fL (81.0-99.0); MEAN CORPUSCULAR HEMOGLOBIN 30.3 pg (27.0-31.0); MEAN CORPUSCULAR HGB CONC 31.7 g/dL (33.0-37.0); MEAN PLATELET VOLUME 10.7 fL (7.2-11.7); MONO # 0.3 K/uL (0.0-0.8); MONO % 2.6 % (0.0-10.0); NRBC % 0.3 % (0.0-2.0); PLATELET COUNT 112 K/uL (130-400); RED CELL DISTRIBUTION WIDTH 18.7 % (11.5-14.5); WHITE BLOOD COUNT 10.5 K/uL (4.8-10.8)
[2016-09-19 07:07] LABS: ALB/GLOB RATIO 1.3 (1.0-2.1); BILIRUBIN,TOTAL 0.5 mg/dL (0.2-1.3); CALCIUM 8.6 mg/dl (8.6-10.4); PHOSPHOROUS 4.1 mg/dL (2.5-4.5); POTASSIUM 3.8 mmol/L (3.6-5.2)
[2016-09-19 08:41] LABS: NEUTROPHIL 88 % (50-75); NUCLEATED RED BLOOD CELL 3 % (0-0); REACTIVE LYMPHOCYTES 1 % (0-0); TOTAL CELLS COUNTED 100
--- NOTE | 2016-09-19 10:23 | CP.CCUPN ---
<Carlota Laughlin - Last Filed: 09/19/16 10:12> CCU Subjective - Physician Review Subjective (Free Text): Patient was seen and examined at bedside in the morning. Patient is more alert, but uncooperative and unable to respond to questions and review of systems. Patient briefly opened her eyes when speaking with her. 09/19/16 10:12 CCU Objective - Vital Signs / Intake & Output Vital Signs (Last 4 hours): Vital Signs Pulse Resp BP Pulse Ox 09/19/16 07:00 89 21 92 L 09/19/16 06:55 153/77 H Intake and Output (Last 8hrs): Intake & Output 09/18/16 09/19/16 09/19/16 22:59 06:59 14:59 Intake Total 0 250 0 Output Total 0 Balance 0 250 0 Intake: Intake, IV Amount 0 250 0 Left Upper arm 0 250 0 Oral 0 0 0 Output: Stool 0 Emesis 0 Other: # Bowel Movements 0 0 0 - Physical Exam Physical Exam Limitations: Positive for: Uncooperative Head: Positive for: Atraumatic, Normocephalic Mouth: Positive for: Moist Mucous Membranes Respiratory/Chest: Positive for: Decreased Breath Sounds. Negative for: Clear to Auscultation, Wheezes, Rhonchi Cardiovascular: Positive for: Normal S1, S2, Irregular Rhythm, Tachycardic. Negative for: Bradycardic Abdomen: Positive for: Normal Bowel Sounds. Negative for: Distention Upper Extremity: Negative for: Edema, Swelling Lower Extremity: Positive for: Edema, Swelling. Negative for: NORMAL PULSES ( diminished) Neurological: Negative for: GCS=15, Speech Normal Skin: Positive for: Warm, Dry, Normal Color Psychiatric: Negative for: Alert, Oriented x 3, Normal Insight, Normal Concentration - Medications Active Medications: Active Medications Generic Name Dose Route Start Last Admin Trade Name Freq PRN Reason Stop Dose Admin Acetaminophen 650 mg 08/16/16 03:42 Tylenol 325mg Tab PO Q6 PRN Fever >100.4 F Artificial Tears 0 ml 08/16/16 14:00 09/18/16 21:21 Artificial Tears OU 1 drop QID [facility]I Administration Epoetin Herve 10,000 unit 09/04/16 11:15 09/18/16 11:23 Procrit IV 10,000 unit TTS [facility]I Administration Propofol 1,000 mg in 100 mls @ 2.16 mls/hr 09/11/16 16:17 09/13/16 09:00 Diprivan IV Infused .Q24H PRN Titration TITRATE PER MD ORDER Protocol 5 MCG/KG/MIN Nitroglycerin 1 ea 09/18/16 22:00 09/19/16 03:13 Nitro-Bid 2% Oint TOP 1 ea Q6H [facility]I Administration Pantoprazole Sodium 40 mg 09/19/16 10:15 Protonix Inj IVP DAILY [facility] - Patient Studies Lab Studies: Lab Studies 09/19/16 09/19/16 09/18/16 Range/Units 06:47 06:47 12:45 WBC 10.5 (4.8-10.8) K/uL RBC 2.84 L (3.80-5.20) Mil/uL Hgb 8.6 L (11.0-16.0) g/dL Hct 27.2 L (34.0-47.0) % MCV 95.6 (81.0-99.0) fL MCH 30.3 (27.0-31.0) pg MCHC 31.7 L (33.0-37.0) g/dL RDW 18.7 H (11.5-14.5) % Plt Count 112 L D (130-400) K/uL MPV 10.7 (7.2-11.7) fL Neut % (Auto) 90.7 H (50.0-75.0) % Lymph % (Auto) 6.5 L (20.0-40.0) % [place] % (Auto) 2.6 (0.0-10.0) % Eos % (Auto) 0.0 (0.0-4.0) % Baso % (Auto) 0.2 (0.0-2.0) % Neut # 9.5 H (1.8-7.0) K/uL Lymph # 0.7 L (1.0-4.3) K/uL [place] # 0.3 (0.0-0.8) K/uL Eos # 0.0 (0.0-0.7) K/uL Baso # 0.0 (0.0-0.2) K/uL Neutrophils % (Manual) 88 H (50-75) % Band Neutrophils % 4 H (0-2) % Lymphocytes % (Manual) 5 L (20-40) % Reactive Lymphs % 1 H (0-0) % Monocytes % (Manual) 2 (0-10) % Nucleated RBC % 3 H (0-0) % Platelet Estimate Slightly decreased L (NORMAL) Anisocytosis (manual) Slight Sodium 141 (132-148) mmol/L Potassium 3.8 (3.6-5.2) mmol/L Chloride 96 L (98-107) mmol/L Carbon Dioxide 33 H (22-30) mmol/L Anion Gap 16 (10-20) BUN 31 H (7-17) mg/dL Creatinine 2.6 H (0.7-1.2) MG/DL Est GFR ( Amer) 21 Est GFR (Non-Af Amer) 18 POC Glucose (mg/dL) 116 H (65-110) mg/dL Random Glucose 143 H (65-105) mg/dL Calcium 8.6 (8.6-10.4) mg/dl Phosphorus 4.1 (2.5-4.5) mg/dL Magnesium 2.0 (1.6-2.3) mg/dL Total Bilirubin 0.5 (0.2-1.3) mg/dL AST 45 H D (14-36) U/L ALT 51 (9-52) U/L Alkaline Phosphatase 81 (38-126) U/L Total Protein 6.0 L (6.3-8.3) g/dL Albumin 3.4 L D (3.5-5.0) g/dL Globulin 2.6 (2.2-3.9) gm/dL Albumin/Globulin Ratio 1.3 (1.0-2.1) Laboratory Results - last 24 hr 09/18/16 09/19/16 09/19/16 12:45 06:47 06:47 WBC 10.5 RBC 2.84 L Hgb 8.6 L Hct 27.2 L MCV 95.6 MCH 30.3 MCHC 31.7 L RDW 18.7 H Plt Count 112 L D MPV 10.7 Neut % (Auto) 90.7 H Lymph % (Auto) 6.5 L [place] % (Auto) 2.6 Eos % (Auto) 0.0 Baso % (Auto) 0.2 Neut # 9.5 H Lymph # 0.7 L [place] # 0.3 Eos # 0.0 Baso # 0.0 Neutrophils % (Manual) 88 H Band Neutrophils % 4 H Lymphocytes % (Manual) 5 L Reactive Lymphs % 1 H Monocytes % (Manual) 2 Nucleated RBC % 3 H Platelet Estimate Slightly decreased L Anisocytosis (manual) Slight Sodium 141 Potassium 3.8 Chloride 96 L Carbon Dioxide 33 H Anion Gap 16 BUN 31 H Creatinine 2.6 H Est GFR ( Amer) 21 Est GFR (Non-Af Amer) 18 POC Glucose (mg/dL) 116 H Random Glucose 143 H Calcium 8.6 Phosphorus 4.1 Magnesium 2.0 Total Bilirubin 0.5 AST 45 H D ALT 51 Alkaline Phosphatase 81 Total Protein 6.0 L Albumin 3.4 L D Globulin 2.6 Albumin/Globulin Ratio 1.3 Fingerstick Blood Sugar Results: 134 Review of Systems - Review of Systems Systems not reviewed;Unavailable: Uncooperative Critical Care Progress Note - Nutrition Nutrition: Nutrition Category Date Time Status Renal Diet [DIET] Diets 08/16/16 Dinner Active Assessment/Plan (1) Pulmonary edema Assessment and plan: 80-year-old female with past medical history of systolic CHF (EF-10%). 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 Now in recurrent respiratory failure from flash pulmonary edema s/p plasma exchange. In ICU, intubated. Chest xray is improving, pressure support successful and patient was extubated on 09/17/16. Patient received plasma exchange on 09/16 - 09/18 and is scheduled to receive today, 09/18/16. Possible NG or PEG tube placement pending on swallow eval and family's decision. Neuro: off sedation--> more alert today, opening eye, as per nurse, patient is talking and sitting up. - Head CT: no intracranial mass, hemorrhage, or acute infarct. 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 Chronic paranasal sinusitis; nonspecific right mastoid effusion Pulm: Acute respiratory failure secondary to pulmonary edema status post plasma exchange, dialyzed to remove fluid. - extubated on 09/17/16; on ventimask 50% - Patient is improving, CXR is improving CV: Hemodynamically stable. Hypertensive, the pressure will drop with dialysis. 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 - Discussed plan of care with Dr. Montanez. - Patient has had plasma exchange 09/16-09/18 this week. Will get plasma exchange again today. - Patient may start treatment with Rituximab Renal: End-stage renal disease now on chronic dialysis - Diaylsis T/Th/Sat Endo: No acute issues GI: NPO - PEG tube vs NG tube- decision pending on swallow eval and family's decision. Will begin feeding today - Pepcid - Elevated Liver enzymes- improving ID: No acute issues. Skin: - Sacral ulcer, stage 2 - Wound care DVT proph - heparin subcutaneous GI proph - Pepcid daily PT/OT Cole catheter- monitor I/O Code status - full code Palliative care consulted Current Visit: Yes Status: Acute <Anthony Taveras - Last Filed: 09/19/16 18:07> CCU Objective - Vital Signs / Intake & Output Vital Signs (Last 4 hours): Vital Signs Temp Pulse Resp BP Pulse Ox 09/19/16 16:00 98.6 F 85 18 93 L 09/19/16 15:55 86 23 179/96 H 96 09/19/16 15:00 83 22 98 09/19/16 14:56 84 22 173/96 H 98 Intake and Output (Last 8hrs): Intake & Output 09/19/16 09/19/16 09/19/16 06:59 14:59 22:59 Intake Total 250 150 120 Output Total 20 0 Balance 250 130 120 Weight 146 lb Intake: Intake, IV Amount 250 0 0 Left Upper arm 250 0 0 Oral 0 150 120 Output: Urine 20 0 Urine, Voided 20 0 Emesis 0 0 Other: # Voids Urine, Voided 1 # Bowel Movements 0 0 0 - Medications Active Medications: Active Medications Generic Name Dose Route Start Last Admin Trade Name Freq PRN Reason Stop Dose Admin Acetaminophen 650 mg 08/16/16 03:42 Tylenol 325mg Tab PO Q6 PRN Fever >100.4 F Artificial Tears 0 ml 08/16/16 14:00 09/19/16 16:06 Artificial Tears OU Not Given QID JESSI Famotidine 20 mg 09/19/16 10:15 09/19/16 10:36 Pepcid IVP 20 mg DAILY JESSI Administration Propofol 1,000 mg in 100 mls @ 2.16 mls/hr 09/11/16 16:17 08/05/17 09:00 Diprivan IV Infused .Q24H PRN Titration TITRATE PER MD ORDER Protocol 5 MCG/KG/MIN Nitroglycerin 1 ea 09/18/16 22:00 09/19/16 16:21 Nitro-Bid 2% Oint TOP 1 ea Q6H [facility]I Administration - Patient Studies Lab Studies: Lab Studies 09/19/16 09/19/16 Range/Units 06:47 06:47 WBC 10.5 (4.8-10.8) K/uL RBC 2.84 L (3.80-5.20) Mil/uL Hgb 8.6 L (11.0-16.0) g/dL Hct 27.2 L (34.0-47.0) % MCV 95.6 (81.0-99.0) fL MCH 30.3 (27.0-31.0) pg MCHC 31.7 L (33.0-37.0) g/dL RDW 18.7 H (11.5-14.5) % Plt Count 112 L D (130-400) K/uL MPV 10.7 (7.2-11.7) fL Neut % (Auto) 90.7 H (50.0-75.0) % Lymph % (Auto) 6.5 L (20.0-40.0) % [place] % (Auto) 2.6 (0.0-10.0) % Eos % (Auto) 0.0 (0.0-4.0) % Baso % (Auto) 0.2 (0.0-2.0) % Neut # 9.5 H (1.8-7.0) K/uL Lymph # 0.7 L (1.0-4.3) K/uL [place] # 0.3 (0.0-0.8) K/uL Eos # 0.0 (0.0-0.7) K/uL Baso # 0.0 (0.0-0.2) K/uL Neutrophils % (Manual) 88 H (50-75) % Band Neutrophils % 4 H (0-2) % Lymphocytes % (Manual) 5 L (20-40) % Reactive Lymphs % 1 H (0-0) % Monocytes % (Manual) 2 (0-10) % Nucleated RBC % 3 H (0-0) % Platelet Estimate Slightly decreased L (NORMAL) Anisocytosis (manual) Slight Sodium 141 (132-148) mmol/L Potassium 3.8 (3.6-5.2) mmol/L Chloride 96 L (98-107) mmol/L Carbon Dioxide 33 H (22-30) mmol/L Anion Gap 16 (10-20) BUN 31 H (7-17) mg/dL Creatinine 2.6 H (0.7-1.2) MG/DL Est GFR ( Amer) 21 Est GFR (Non-Af Amer) 18 Random Glucose 143 H (65-105) mg/dL Calcium 8.6 (8.6-10.4) mg/dl Phosphorus 4.1 (2.5-4.5) mg/dL Magnesium 2.0 (1.6-2.3) mg/dL Total Bilirubin 0.5 (0.2-1.3) mg/dL AST 45 H D (14-36) U/L ALT 51 (9-52) U/L Alkaline Phosphatase 81 (38-126) U/L Total Protein 6.0 L (6.3-8.3) g/dL Albumin 3.4 L D (3.5-5.0) g/dL Globulin 2.6 (2.2-3.9) gm/dL Albumin/Globulin Ratio 1.3 (1.0-2.1) Laboratory Results - last 24 hr 09/19/16 09/19/16 06:47 06:47 WBC 10.5 RBC 2.84 L Hgb 8.6 L Hct 27.2 L MCV 95.6 MCH 30.3 MCHC 31.7 L RDW 18.7 H Plt Count 112 L D MPV 10.7 Neut % (Auto) 90.7 H Lymph % (Auto) 6.5 L [place] % (Auto) 2.6 Eos % (Auto) 0.0 Baso % (Auto) 0.2 Neut # 9.5 H Lymph # 0.7 L [place] # 0.3 Eos # 0.0 Baso # 0.0 Neutrophils % (Manual) 88 H Band Neutrophils % 4 H Lymphocytes % (Manual) 5 L Reactive Lymphs % 1 H Monocytes % (Manual) 2 Nucleated RBC % 3 H Platelet Estimate Slightly decreased L Anisocytosis (manual) Slight Sodium 141 Potassium 3.8 Chloride 96 L Carbon Dioxide 33 H Anion Gap 16 BUN 31 H Creatinine 2.6 H Est GFR ( Amer) 21 Est GFR (Non-Af Amer) 18 Random Glucose 143 H Calcium 8.6 Phosphorus 4.1 Magnesium 2.0 Total Bilirubin 0.5 AST 45 H D ALT 51 Alkaline Phosphatase 81 Total Protein 6.0 L Albumin 3.4 L D Globulin 2.6 Albumin/Globulin Ratio 1.3 Critical Care Progress Note - Nutrition Nutrition: Nutrition Category Date Time Status Consistent Carbohydrate [DIET] Diets 09/19/16 Lunch Active Attending/Attestation - Attestation I have personally seen and examined this patient.: Yes I have fully participated in the care of the patient.: Yes I have reviewed all pertinent clinical information: Yes Notes (Text): 09/19/16 18:06 Patient seen and examined in the intensive care unit. Case discussed with STAFF in the morning rounds. Remains extubated in no respiratory distress Continue plasmapheresis and hemodialysis for now Hematology follow-up
[2016-09-19] MEDS: Aritificial Tears (15ml) OU SCH ×4 (10:42→22:31)
--- NOTE | 2016-09-19 15:05 | CP.PCM.PN ---
Subjective - Date & Time of Evaluation Date of Evaluation: 09/19/16 Time of Evaluation: 10:00 - Subjective Subjective: PGY3 on heme/onc Dr. Montanez service: Pt seen and examined at bedside. Resting comfortably on bed. Pt able to converse in simple sentences very slowly and respond appropriately. Pt requests more food. Objective - Vital Signs/Intake and Output Vital Signs (last 24 hours): Temp Pulse Resp BP Pulse Ox 98.1 F 88 19 174/88 H 96 09/19/16 12:00 09/19/16 12:00 09/19/16 12:00 09/19/16 11:55 09/19/16 12:00 Intake and Output: 09/19/16 09/19/16 06:59 18:59 Intake Total 250 30 Output Total 20 Balance 250 10 - Medications Medications: Current Medications Acetaminophen (Tylenol 325mg Tab) 650 mg PO Q6 PRN PRN Reason: Fever >100.4 F Artificial Tears (Artificial Tears) 0 ml OU QID [facility] Last Admin: 09/19/16 10:42 Dose: 1 drop Famotidine (Pepcid) 20 mg IVP DAILY [facility] Last Admin: 09/19/16 10:36 Dose: 20 mg Propofol (Diprivan) 1,000 mg in 100 mls @ 2.16 mls/hr IV .Q24H PRN; Protocol; 5 MCG/KG/MIN PRN Reason: TITRATE PER MD ORDER Last Titration: 09/13/16 09:00 Dose: Infused Nitroglycerin (Nitro-Bid 2% Oint) 1 ea TOP Q6H [facility] Last Admin: 09/19/16 10:36 Dose: 1 ea - Labs Labs: 09/19/16 06:47 09/19/16 06:47 PT 11.1 SECONDS (9.7-12.2) 09/12/16 20:17 INR 1.0 09/12/16 20:17 APTT 25 SECONDS (21-34) 09/12/16 20:17 - Constitutional Appears: Non-toxic, Chronically Ill - Eye Exam Eye Exam: Normal appearance - Respiratory Exam Respiratory Exam: NORMAL BREATHING PATTERN. absent: Wheezes - Cardiovascular Exam Cardiovascular Exam: REGULAR RHYTHM, +S1 - GI/Abdominal Exam GI & Abdominal Exam: Normal Bowel Sounds - Neurological Exam Neurological Exam: Alert, Awake, Oriented x3 Assessment and Plan - Assessment and Plan (Free Text) Assessment: (1) TTP (thrombotic thrombocytopenic purpura) Assessment & Plan: Plasma exchange daily per Dr. Montanez, need HD immediately before or after plasma exchange. Will consider increasing plasma volume exchange as per attending. Continue monitoring platelet. Family agreed for Rituximab, will start Thursday. Status: Acute (2) Renal failure Assessment & Plan: Acute on chronic Continue HD TTS as per nephro. Status: Acute (3) CHF Assessment & Plan: On LifeVest Status: Acute
[2016-09-19] MEDS ORDERED: Calcium Gluconate 4.65 mEq/10 ml Inj ONE (16:12)
[2016-09-19] MEDS: Pantoprazole 40 mg Susp UD PO SCH (16:45)
[2016-09-19] MEDS ORDERED: DiphenhydrAMINE 50 mg/ml Inj IVP ONE (17:00)
[2016-09-19] MEDS ORDERED: Calcium Gluconate 9.3 MEQ in Sodium Chloride 0.9% 250 ML IV ONE (17:00)
--- NOTE | 2016-09-19 17:58 | CP.PCM.PN ---
Subjective - Date & Time of Evaluation Date of Evaluation: 09/19/16 Time of Evaluation: 10:40 - Subjective Subjective: clinically same Objective - Vital Signs/Intake and Output Vital Signs (last 24 hours): Temp Pulse Resp BP Pulse Ox 98.6 F 85 18 179/96 H 93 L 09/19/16 16:00 09/19/16 16:00 09/19/16 16:00 09/19/16 15:55 09/19/16 16:00 Intake and Output: 09/19/16 09/19/16 06:59 18:59 Intake Total 250 270 Output Total 20 Balance 250 250 - Medications Medications: Current Medications Acetaminophen (Tylenol 325mg Tab) 650 mg PO Q6 PRN PRN Reason: Fever >100.4 F Artificial Tears (Artificial Tears) 0 ml OU QID [facility] Last Admin: 09/19/16 16:06 Dose: Not Given Famotidine (Pepcid) 20 mg IVP DAILY [facility] Last Admin: 09/19/16 10:36 Dose: 20 mg Propofol (Diprivan) 1,000 mg in 100 mls @ 2.16 mls/hr IV .Q24H PRN; Protocol; 5 MCG/KG/MIN PRN Reason: TITRATE PER MD ORDER Last Titration: 09/13/16 09:00 Dose: Infused Nitroglycerin (Nitro-Bid 2% Oint) 1 ea TOP Q6H [facility] Last Admin: 09/19/16 16:21 Dose: 1 ea - Labs Labs: 09/19/16 06:47 09/19/16 06:47 PT 11.1 SECONDS (9.7-12.2) 09/12/16 20:17 INR 1.0 09/12/16 20:17 APTT 25 SECONDS (21-34) 09/12/16 20:17 - Constitutional Appears: Well - Head Exam Head Exam: ATRAUMATIC, NORMAL INSPECTION, NORMOCEPHALIC - Eye Exam Eye Exam: EOMI, Normal appearance, PERRL Pupil Exam: NORMAL ACCOMODATION, PERRL - ENT Exam ENT Exam: Mucous Membranes Moist, Normal Exam - Neck Exam Neck Exam: Full ROM, Normal Inspection. absent: Lymphadenopathy - Respiratory Exam Respiratory Exam: Decreased Breath Sounds - Cardiovascular Exam Cardiovascular Exam: REGULAR RHYTHM, +S1, +S2 - GI/Abdominal Exam GI & Abdominal Exam: Soft, Diminished Bowel Sounds - Rectal Exam Rectal Exam: Deferred Assessment and Plan (1) Cardiac dysrhythmia Status: Acute (2) ESRD (end stage renal disease) on dialysis Status: Acute (3) Pulmonary edema Status: Acute (4) MARCO (acute kidney injury) Status: Acute (5) Acute respiratory failure requiring reintubation Status: Acute (6) Arthritis Status: Acute (7) CHF (congestive heart failure) Status: Acute (8) Dehydration Status: Acute (9) Dehydration Status: Acute (10) Diverticulosis Status: Acute (11) Elevated CEA Status: Acute (12) Hypertension Status: Acute (13) Inguinal lymphadenopathy Status: Acute (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
--- NOTE | 2016-09-19 20:34 | CP.PCM.PN ---
Subjective - Date & Time of Evaluation Date of Evaluation: 09/19/16 Time of Evaluation: 20:33 - Subjective Subjective: pt is seen and examined, follow up consult is dictated #[id number] Objective - Vital Signs/Intake and Output Vital Signs (last 24 hours): Temp Pulse Resp BP Pulse Ox 98.6 F 85 18 179/96 H 93 L 09/19/16 16:00 09/19/16 16:00 09/19/16 16:00 09/19/16 15:55 09/19/16 16:00 Intake and Output: 09/19/16 09/20/16 18:59 06:59 Intake Total 270 Output Total 20 Balance 250 - Medications Medications: Current Medications Acetaminophen (Tylenol 325mg Tab) 650 mg PO Q6 PRN PRN Reason: Fever >100.4 F Artificial Tears (Artificial Tears) 0 ml OU QID [facility] Last Admin: 09/19/16 18:34 Dose: Not Given Famotidine (Pepcid) 20 mg IVP DAILY [facility] Last Admin: 09/19/16 10:36 Dose: 20 mg Propofol (Diprivan) 1,000 mg in 100 mls @ 2.16 mls/hr IV .Q24H PRN; Protocol; 5 MCG/KG/MIN PRN Reason: TITRATE PER MD ORDER Last Titration: 09/13/16 09:00 Dose: Infused Nitroglycerin (Nitro-Bid 2% Oint) 1 ea TOP Q6H [facility] Last Admin: 09/19/16 16:21 Dose: 1 ea - Labs Labs: 09/19/16 06:47 09/19/16 06:47 PT 11.1 SECONDS (9.7-12.2) 09/12/16 20:17 INR 1.0 09/12/16 20:17 APTT 25 SECONDS (21-34) 09/12/16 20:17
[2016-09-20] MEDS: Nitroglycerin 2% Ointment Foilpak UD TOP SCH ×3 (03:36→16:30)
--- NOTE | 2016-09-20 04:26 | CON ---
FOLLOWUP RENAL CONSULTATION The patient is located in ICU, bed 1. REQUESTED BY: Dr. Kavon Ureña. REASON FOR FOLLOWUP: Renal failure and continuation of the hemodialysis, end-stage renal disease. HISTORY OF PRESENT ILLNESS: The patient is an 80 years old elderly female with history of hypertension, rheumatoid arthritis, CHF, cardiomyopathy, statu post extubation. Today's echo did reveal relapse of TTP and started on plasmapheresis again. The patient is being treated for TTP with plasmapheresis so far and the patient has restarted again plasmapheresis yesterday and receiving second treatment again this evening. The patient is more awake and responding to questions appropriately, not in distress. PHYSICAL EXAMINATION: GENERAL: The patient is an 80-year-old elderly female, moderately built, moderately nourished, not in distress. VITAL SIGNS: As follows, her blood pressure 164/93, pulse 84, respiration 20 and temperature is 97.6 and saturation 94%. HEENT: Pupils are normal, reactive to light and accommodation. Conjunctivae pink. Sclerae anicteric. Tongue is moist. Trachea is midline. LUNGS: Symmetry on both sides. Bilateral breath sounds present. Occasional basal crackles present. CARDIOVASCULAR SYSTEM: Sunol at the fifth intercostal space, midclavicular line. S1 and S2 audible. No murmur or gallop. ABDOMEN: Normal in appearance. Soft and tympanic. No guarding. No rigidity. No hepatosplenomegaly. CENTRAL NERVOUS SYSTEM: The patient is more alert and awake, following simple commands. EXTREMITIES: No cyanosis, no clubbing, no edema. CURRENT MEDICATIONS: Include as follows; Artificial tears, propofol, AND nitroglycerin 1 inch to anterior chest wall q.6 hours and Pepcid 20 mg IV daily and Tylenol. LABORATORY DATA: Includes as follows; as of 09/19/2016, WBC 10.5, hemoglobin 8.6, hematocrit is 27.2, platelets are 112. Neutrophils 88 and bands 4, lymphs 5, reactive lymph is 1 and monos 2, nucleoid RBC is 3. Sodium 141, potassium 3.8, chloride 96, CO2 of 33, BUN 31, and creatinine 2.6 and, glucose is 143, calcium is 8.6, phosphorus 4.1 and magnesium is 2. Total bilirubin 0.5, AST 45, ALT 51, alkaline phosphatase 81, total protein is 6, albumin is 3.4. ASSESSMENT: In summary, the patient is an 80-year-old elderly female with history of hypertension, rheumatoid arthritis, congestive heart failure, cardiomyopathy, renal failure, thrombotic thrombocytopenic purpura, receiving plasmapheresis. 1. End-stage renal disease, continue hemodialysis 3 times a week Thursday, , Thursday. 2. Hypertension. Blood pressure is stable, continue nitro paste. 3. 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 4. 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 Continue hemodialysis 3 times a week. We will follow with you. Follow up with hematology and plasmapheresis as per the window draper, Dr. Montanez. Thank you for allowing me to participate in your patient's care. Horacio Graham MD
[2016-09-20 05:56] LABS: ABG ALLEN TEST POS; ARTERIAL BLOOD HGB O2 SAT 95.7 % (95.0-98.0); CARBOXYHEMOGLOBIN 2.3 % (0.5-1.5); DRAW SITE RR; HHB 1.2 % (0.0-5.0); METHEMOGLOBIN 0.8 % (0.0-3.0)
[2016-09-20 06:32] LABS: HEMATOCRIT 23.8 % (34.0-47.0); LYMPH # 0.6 K/uL (1.0-4.3); LYMPH % 7.2 % (20.0-40.0); MEAN CELL VOLUME 94.8 fL (81.0-99.0); MEAN CORPUSCULAR HEMOGLOBIN 29.9 pg (27.0-31.0); MEAN CORPUSCULAR HGB CONC 31.5 g/dL (33.0-37.0); MONO # 0.3 K/uL (0.0-0.8); MONO % 3.8 % (0.0-10.0); NRBC % 0.4 % (0.0-2.0); PLATELET COUNT 130 K/uL (130-400); RED CELL DISTRIBUTION WIDTH 18.4 % (11.5-14.5); WHITE BLOOD COUNT 8.9 K/uL (4.8-10.8)
[2016-09-20 06:36] LABS: INR 1.1
[2016-09-20 06:45] LABS: ALB/GLOB RATIO 1.4 (1.0-2.1); BILIRUBIN,TOTAL 0.5 mg/dL (0.2-1.3); CALCIUM 8.4 mg/dl (8.6-10.4); PHOSPHOROUS 5.4 mg/dL (2.5-4.5); POTASSIUM 3.4 mmol/L (3.6-5.2); TOTAL PROTEIN 5.6 g/dL (6.3-8.3)
[2016-09-20 08:45] LABS: NEUTROPHIL 89 % (50-75); TOTAL CELLS COUNTED 100
[2016-09-20 08:47] LABS: LARGE PLATELETS PRESENT
--- NOTE | 2016-09-20 09:08 | CP.CCUPN ---
CCU Subjective - Physician Review Subjective (Free Text): The patient today slightly more awake, but easily dozing off. Hypoxia noted. Chest x-ray is worsening today. Patient is some episodes of lethargy also noted. But she is arousable with the deep stimuli. Extubated earlier. Patient had a suspected history of TTP, kidney failure, heart failure. Platelet count is improving now. Stable. But patient is still at high risk for reintubation. On prolonged course of recovery. Condition can get it treated, patient may need reintubation, and the again her symptoms, her condition can get worse. There is no advanced directives. Family should consider. Prognosis is at this time guarded. Vital signs reviewed Hypoxia noted. Blood pressure is stable otherwise Labs reviewed Nonspecific. We will continue to monitor. Patient is very unstable, will maintain the patient ICU for now CCU Objective - Vital Signs / Intake & Output Vital Signs (Last 4 hours): Vital Signs Pulse Resp BP Pulse Ox 09/20/16 07:17 167/80 H 09/20/16 06:28 81 18 169/86 H 93 L 09/20/16 06:17 166/91 H 09/20/16 05:29 84 14 173/92 H 94 L Intake and Output (Last 8hrs): Intake & Output 09/19/16 09/20/16 09/20/16 22:59 06:59 14:59 Intake Total 370 0 0 Output Total 0 0 0 Balance 370 0 0 Weight 148 lb 12.992 oz 148 lb Intake: Intake, IV Amount 250 Left Upper arm 250 Oral 120 0 0 Output: Urine 0 0 0 Urine, Voided 0 0 0 Emesis 0 Other: # Bowel Movements 0 0 0 - Physical Exam Head: Positive for: Atraumatic, Normocephalic Extroacular Muscles: Positive for: EOMI Mouth: Positive for: Moist Mucous Membranes Respiratory/Chest: Positive for: Decreased Breath Sounds. Negative for: Clear to Auscultation, Wheezes, Rhonchi Cardiovascular: Positive for: Normal S1, S2, Irregular Rhythm, Tachycardic. Negative for: Bradycardic Abdomen: Positive for: Normal Bowel Sounds. Negative for: Distention Upper Extremity: Negative for: Edema, Swelling Lower Extremity: Positive for: Edema, Swelling. Negative for: NORMAL PULSES ( diminished) Neurological: Negative for: GCS=15, Speech Normal Skin: Positive for: Warm, Dry, Normal Color Psychiatric: Negative for: Alert, Oriented x 3, Normal Insight, Normal Concentration - Medications Active Medications: Active Medications Generic Name Dose Route Start Last Admin Trade Name Freq PRN Reason Stop Dose Admin Acetaminophen 650 mg 08/16/16 03:42 Tylenol 325mg Tab PO Q6 PRN Fever >100.4 F Artificial Tears 0 ml 08/16/16 14:00 09/19/16 22:31 Artificial Tears OU 1 drop QID [facility] Administration Famotidine 20 mg 09/19/16 10:15 09/19/16 10:36 Pepcid IVP 20 mg DAILY [facility] Administration Propofol 1,000 mg in 100 mls @ 2.16 mls/hr 09/11/16 16:17 09/13/16 09:00 Diprivan IV Infused .Q24H PRN Titration TITRATE PER MD ORDER Protocol 5 MCG/KG/MIN Nitroglycerin 1 ea 09/18/16 22:00 09/20/16 03:36 Nitro-Bid 2% Oint TOP 1 ea Q6H [facility] Administration - Patient Studies Lab Studies: Lab Studies 09/20/16 09/20/16 09/20/16 Range/Units 06:23 06:23 06:23 WBC 8.9 (4.8-10.8) K/uL RBC 2.50 L (3.80-5.20) Mil/uL Hgb 7.5 L (11.0-16.0) g/dL Hct 23.8 L (34.0-47.0) % MCV 94.8 (81.0-99.0) fL MCH 29.9 (27.0-31.0) pg MCHC 31.5 L (33.0-37.0) g/dL RDW 18.4 H (11.5-14.5) % Plt Count 130 (130-400) K/uL MPV 11.0 (7.2-11.7) fL Neut % (Auto) 89.0 H (50.0-75.0) % Lymph % (Auto) 7.2 L (20.0-40.0) % [place] % (Auto) 3.8 (0.0-10.0) % Eos % (Auto) 0.0 (0.0-4.0) % Baso % (Auto) 0.0 (0.0-2.0) % Neut # 7.9 H (1.8-7.0) K/uL Lymph # 0.6 L (1.0-4.3) K/uL [place] # 0.3 (0.0-0.8) K/uL Eos # 0.0 (0.0-0.7) K/uL Baso # 0.0 (0.0-0.2) K/uL Neutrophils % (Manual) 89 H (50-75) % Band Neutrophils % 2 (0-2) % Lymphocytes % (Manual) 5 L (20-40) % Monocytes % (Manual) 4 (0-10) % Toxic Granulation Present Platelet Estimate Normal (NORMAL) Large Platelets Present Polychromasia Slight Hypochromasia (manual) Slight Anisocytosis (manual) Moderate PT 11.9 (9.7-12.2) SECONDS INR 1.1 APTT 28 (21-34) SECONDS Puncture Site pCO2 (35-45) mm/Hg pO2 (80-100) mm/Hg HCO3 (21-28) mmol/L ABG pH (7.35-7.45) ABG Total CO2 (22-28) mmol/L ABG O2 Saturation (95-98) % ABG Base Excess (-2.0-3.0) mmol/L ABG Hemoglobin (11.7-17.4) g/dL ABG Carboxyhemoglobin (0.5-1.5) % POC ABG HHb (Measured) (0.0-5.0) % ABG Methemoglobin (0.0-3.0) % Braxton Test A-a O2 Difference mm/Hg Respiratory Index Hgb O2 Saturation (95.0-98.0) % FiO2 % Sodium 144 (132-148) mmol/L Potassium 3.4 L (3.6-5.2) mmol/L Chloride 95 L (98-107) mmol/L Carbon Dioxide 36 H (22-30) mmol/L Anion Gap 16 (10-20) BUN 41 H (7-17) mg/dL Creatinine 3.4 H (0.7-1.2) MG/DL Est GFR ( Amer) 16 Est GFR (Non-Af Amer) 13 Random Glucose 146 H (65-105) mg/dL Calcium 8.4 L (8.6-10.4) mg/dl Phosphorus 5.4 H (2.5-4.5) mg/dL Magnesium 2.0 (1.6-2.3) mg/dL Total Bilirubin 0.5 (0.2-1.3) mg/dL AST 31 (14-36) U/L ALT 48 (9-52) U/L Alkaline Phosphatase 70 (38-126) U/L Total Protein 5.6 L (6.3-8.3) g/dL Albumin 3.3 L (3.5-5.0) g/dL Globulin 2.3 (2.2-3.9) gm/dL Albumin/Globulin Ratio 1.4 (1.0-2.1) 09/20/16 Range/Units 05:53 WBC (4.8-10.8) K/uL RBC (3.80-5.20) Mil/uL Hgb (11.0-16.0) g/dL Hct (34.0-47.0) % MCV (81.0-99.0) fL MCH (27.0-31.0) pg MCHC (33.0-37.0) g/dL RDW (11.5-14.5) % Plt Count (130-400) K/uL MPV (7.2-11.7) fL Neut % (Auto) (50.0-75.0) % Lymph % (Auto) (20.0-40.0) % [place] % (Auto) (0.0-10.0) % Eos % (Auto) (0.0-4.0) % Baso % (Auto) (0.0-2.0) % Neut # (1.8-7.0) K/uL Lymph # (1.0-4.3) K/uL [place] # (0.0-0.8) K/uL Eos # (0.0-0.7) K/uL Baso # (0.0-0.2) K/uL Neutrophils % (Manual) (50-75) % Band Neutrophils % (0-2) % Lymphocytes % (Manual) (20-40) % Monocytes % (Manual) (0-10) % Toxic Granulation Platelet Estimate (NORMAL) Large Platelets Polychromasia Hypochromasia (manual) Anisocytosis (manual) PT (9.7-12.2) SECONDS INR APTT (21-34) SECONDS Puncture Site Rr pCO2 46 H (35-45) mm/Hg pO2 73 L (80-100) mm/Hg HCO3 40.0 H (21-28) mmol/L ABG pH 7.58 H (7.35-7.45) ABG Total CO2 44.5 H (22-28) mmol/L ABG O2 Saturation 98.8 H (95-98) % ABG Base Excess 19.3 H (-2.0-3.0) mmol/L ABG Hemoglobin 8.6 L (11.7-17.4) g/dL ABG Carboxyhemoglobin 2.3 H (0.5-1.5) % POC ABG HHb (Measured) 1.2 (0.0-5.0) % ABG Methemoglobin 0.8 (0.0-3.0) % Braxton Test Pos A-a O2 Difference 226.0 mm/Hg Respiratory Index 3.1 Hgb O2 Saturation 95.7 (95.0-98.0) % FiO2 50.0 % Sodium (132-148) mmol/L Potassium (3.6-5.2) mmol/L Chloride (98-107) mmol/L Carbon Dioxide (22-30) mmol/L Anion Gap (10-20) BUN (7-17) mg/dL Creatinine (0.7-1.2) MG/DL Est GFR ( Amer) Est GFR (Non-Af Amer) Random Glucose (65-105) mg/dL Calcium (8.6-10.4) mg/dl Phosphorus (2.5-4.5) mg/dL Magnesium (1.6-2.3) mg/dL Total Bilirubin (0.2-1.3) mg/dL AST (14-36) U/L ALT (9-52) U/L Alkaline Phosphatase (38-126) U/L Total Protein (6.3-8.3) g/dL Albumin (3.5-5.0) g/dL Globulin (2.2-3.9) gm/dL Albumin/Globulin Ratio (1.0-2.1) Laboratory Results - last 24 hr 09/20/16 09/20/16 09/20/16 05:53 06:23 06:23 WBC 8.9 RBC 2.50 L Hgb 7.5 L Hct 23.8 L MCV 94.8 MCH 29.9 MCHC 31.5 L RDW 18.4 H Plt Count 130 MPV 11.0 Neut % (Auto) 89.0 H Lymph % (Auto) 7.2 L [place] % (Auto) 3.8 Eos % (Auto) 0.0 Baso % (Auto) 0.0 Neut # 7.9 H Lymph # 0.6 L [place] # 0.3 Eos # 0.0 Baso # 0.0 Neutrophils % (Manual) 89 H Band Neutrophils % 2 Lymphocytes % (Manual) 5 L Monocytes % (Manual) 4 Toxic Granulation Present Platelet Estimate Normal Large Platelets Present Polychromasia Slight Hypochromasia (manual) Slight Anisocytosis (manual) Moderate PT INR APTT Puncture Site Rr pCO2 46 H pO2 73 L HCO3 40.0 H ABG pH 7.58 H ABG Total CO2 44.5 H ABG O2 Saturation 98.8 H ABG Base Excess 19.3 H ABG Hemoglobin 8.6 L ABG Carboxyhemoglobin 2.3 H POC ABG HHb (Measured) 1.2 ABG Methemoglobin 0.8 Braxton Test Pos A-a O2 Difference 226.0 Respiratory Index 3.1 Hgb O2 Saturation 95.7 FiO2 50.0 Sodium 144 Potassium 3.4 L Chloride 95 L Carbon Dioxide 36 H Anion Gap 16 BUN 41 H Creatinine 3.4 H Est GFR ( Amer) 16 Est GFR (Non-Af Amer) 13 Random Glucose 146 H Calcium 8.4 L Phosphorus 5.4 H Magnesium 2.0 Total Bilirubin 0.5 AST 31 ALT 48 Alkaline Phosphatase 70 Total Protein 5.6 L Albumin 3.3 L Globulin 2.3 Albumin/Globulin Ratio 1.4 09/20/16 06:23 WBC RBC Hgb Hct MCV MCH MCHC RDW Plt Count MPV Neut % (Auto) Lymph % (Auto) [place] % (Auto) Eos % (Auto) Baso % (Auto) Neut # Lymph # [place] # Eos # Baso # Neutrophils % (Manual) Band Neutrophils % Lymphocytes % (Manual) Monocytes % (Manual) Toxic Granulation Platelet Estimate Large Platelets Polychromasia Hypochromasia (manual) Anisocytosis (manual) PT 11.9 INR 1.1 APTT 28 Puncture Site pCO2 pO2 HCO3 ABG pH ABG Total CO2 ABG O2 Saturation ABG Base Excess ABG Hemoglobin ABG Carboxyhemoglobin POC ABG HHb (Measured) ABG Methemoglobin Braxton Test A-a O2 Difference Respiratory Index Hgb O2 Saturation FiO2 Sodium Potassium Chloride Carbon Dioxide Anion Gap BUN Creatinine Est GFR ( Amer) Est GFR (Non-Af Amer) Random Glucose Calcium Phosphorus Magnesium Total Bilirubin AST ALT Alkaline Phosphatase Total Protein Albumin Globulin Albumin/Globulin Ratio Fingerstick Blood Sugar Results: 134 Critical Care Progress Note - Nutrition Nutrition: Nutrition Category Date Time Status Consistent Carbohydrate [DIET] Diets 09/19/16 Lunch Active
[2016-09-20] MEDS: Aritificial Tears (15ml) OU SCH ×4 (09:21→21:08)
--- NOTE | 2016-09-20 11:43 | CP.PCM.PN ---
Subjective - Date & Time of Evaluation Date of Evaluation: 09/20/16 Time of Evaluation: 12:40 - Subjective Subjective: clinically same Objective - Vital Signs/Intake and Output Vital Signs (last 24 hours): Temp Pulse Resp BP Pulse Ox 98 F 81 22 149/112 H 92 L 09/20/16 10:00 09/20/16 11:00 09/20/16 11:00 09/20/16 10:50 09/20/16 11:00 Intake and Output: 09/20/16 09/20/16 06:59 18:59 Intake Total 250 200 Output Total 0 20 Balance 250 180 - Medications Medications: Current Medications Acetaminophen (Tylenol 325mg Tab) 650 mg PO Q6 PRN PRN Reason: Fever >100.4 F Artificial Tears (Artificial Tears) 0 ml OU QID [facility] Last Admin: 09/20/16 09:21 Dose: 1 drop Famotidine (Pepcid) 20 mg IVP DAILY [facility] Last Admin: 09/20/16 09:21 Dose: 20 mg Propofol (Diprivan) 1,000 mg in 100 mls @ 2.16 mls/hr IV .Q24H PRN; Protocol; 5 MCG/KG/MIN PRN Reason: TITRATE PER MD ORDER Last Titration: 09/13/16 09:00 Dose: Infused Nitroglycerin (Nitro-Bid 2% Oint) 1 ea TOP Q6H [facility] Last Admin: 09/20/16 09:21 Dose: 1 ea - Labs Labs: 09/20/16 06:23 09/20/16 06:23 PT 11.9 SECONDS (9.7-12.2) 09/20/16 06:23 INR 1.1 09/20/16 06:23 APTT 28 SECONDS (21-34) 09/20/16 06:23 - Constitutional Appears: Well - Head Exam Head Exam: ATRAUMATIC, NORMAL INSPECTION, NORMOCEPHALIC - Eye Exam Eye Exam: EOMI, Normal appearance, PERRL Pupil Exam: NORMAL ACCOMODATION, PERRL - ENT Exam ENT Exam: Mucous Membranes Moist, Normal Exam - Neck Exam Neck Exam: Full ROM, Normal Inspection. absent: Lymphadenopathy - Respiratory Exam Respiratory Exam: Decreased Breath Sounds - Cardiovascular Exam Cardiovascular Exam: REGULAR RHYTHM, +S1, +S2 - GI/Abdominal Exam GI & Abdominal Exam: Soft, Diminished Bowel Sounds - Rectal Exam Rectal Exam: Deferred Assessment and Plan (1) Cardiac dysrhythmia Status: Acute (2) ESRD (end stage renal disease) on dialysis Status: Acute (3) Pulmonary edema Status: Acute (4) MARCO (acute kidney injury) Status: Acute (5) Acute respiratory failure requiring reintubation Status: Acute (6) Arthritis Status: Acute (7) CHF (congestive heart failure) Status: Acute (8) Dehydration Status: Acute (9) Dehydration Status: Acute (10) Diverticulosis Status: Acute (11) Elevated CEA Status: Acute (12) Hypertension Status: Acute (13) Inguinal lymphadenopathy Status: Acute (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 martinez if no further intervention
--- NOTE | 2016-09-20 14:52 | CP.PCM.PN ---
Subjective - Date & Time of Evaluation Date of Evaluation: 09/20/16 Time of Evaluation: 14:51 - Subjective Subjective: pt seen and examined, follow up consult is dictated #[id number] stable hd tx, uf 3.3 lit Objective - Vital Signs/Intake and Output Vital Signs (last 24 hours): Temp Pulse Resp BP Pulse Ox 98 F 85 18 157/93 H 92 L 09/20/16 10:00 09/20/16 13:00 09/20/16 13:00 09/20/16 13:00 09/20/16 11:00 Intake and Output: 09/20/16 09/20/16 06:59 18:59 Intake Total 250 200 Output Total 0 20 Balance 250 180 - Medications Medications: Current Medications Acetaminophen (Tylenol 325mg Tab) 650 mg PO Q6 PRN PRN Reason: Fever >100.4 F Acetaminophen (Tylenol 650 Mg Supp) 650 mg TX ONCE ONE Stop: 09/20/16 15:01 Artificial Tears (Artificial Tears) 0 ml OU QID [facility] Last Admin: 09/20/16 09:21 Dose: 1 drop Diphenhydramine HCl (Benadryl) 50 mg IVP ONCE ONE Stop: 09/20/16 15:01 Famotidine (Pepcid) 20 mg IVP DAILY [facility] Last Admin: 09/20/16 09:21 Dose: 20 mg Propofol (Diprivan) 1,000 mg in 100 mls @ 2.16 mls/hr IV .Q24H PRN; Protocol; 5 MCG/KG/MIN PRN Reason: TITRATE PER MD ORDER Last Titration: 09/13/16 09:00 Dose: Infused Calcium Gluconate 9.3 meq/ (Sodium Chloride) 270 mls @ 135 mls/hr IVPB ONCE ONE Stop: 09/20/16 16:59 Methylprednisolone (Solu-Medrol) 100 mg IV ONCE ONE Stop: 09/20/16 15:01 Nitroglycerin (Nitro-Bid 2% Oint) 1 ea TOP Q6H [facility] Last Admin: 09/20/16 09:21 Dose: 1 ea - Labs Labs: 09/20/16 06:23 09/20/16 06:23 PT 11.9 SECONDS (9.7-12.2) 09/20/16 06:23 INR 1.1 09/20/16 06:23 APTT 28 SECONDS (21-34) 09/20/16 06:23
[2016-09-20] MEDS ORDERED: DiphenhydrAMINE 50 mg/ml Inj IVP ONE (15:00)
--- NOTE | 2016-09-20 17:51 | RAD ---
HISTORY: Monitor pulmonary edema. COMPARISON: Multiple serial examinations preceding the most recent study: September 19, 2016. FINDINGS: LUNGS: Stable pulmonary edema. PLEURA: Stable bilateral pleural effusions. CARDIOVASCULAR: Cardiomegaly, stable pulmonary vascular congestion.Venous access catheter in stable, satisfactory position. OSSEOUS STRUCTURES: No significant abnormalities. VISUALIZED UPPER ABDOMEN: Normal. OTHER FINDINGS: None. IMPRESSION: No significant interval change compared to the prior examination(s).
[2016-09-20] MEDS: DiphenhydrAMINE 50 mg/ml Inj IVP ONE ×2 (18:13→18:17)
[2016-09-20] MEDS: Calcium Gluconate 9.3 MEQ in Sodium Chloride 0.9% 250 ML IVPB ONE ×2 (18:14→18:16)
[2016-09-20] MEDS: Metoprolol 1 mg/ml Inj IVP SCH (19:30)
[2016-09-20] MEDS ORDERED: Metoprolol 1 mg/ml Inj IVP SCH (19:30)
--- NOTE | 2016-09-20 20:39 | CP.PCM.PN ---
Subjective - Date & Time of Evaluation Date of Evaluation: 09/20/16 Time of Evaluation: 16:00 - Subjective Subjective: Appears comfortable Objective - Vital Signs/Intake and Output Vital Signs (last 24 hours): Temp Pulse Resp BP Pulse Ox 97.8 F 96 H 18 165/104 H 95 09/20/16 16:00 09/20/16 20:26 09/20/16 19:17 09/20/16 19:17 09/20/16 19:17 Intake and Output: 09/20/16 09/21/16 18:59 06:59 Intake Total 680 0 Output Total 380 Balance 300 0 - Medications Medications: Current Medications Acetaminophen (Tylenol 325mg Tab) 650 mg PO Q6 PRN PRN Reason: Fever >100.4 F Artificial Tears (Artificial Tears) 0 ml OU QID [facility] Last Admin: 09/20/16 18:23 Dose: 1 drop Famotidine (Pepcid) 20 mg IVP DAILY [facility] Last Admin: 09/20/16 09:21 Dose: 20 mg Propofol (Diprivan) 1,000 mg in 100 mls @ 2.16 mls/hr IV .Q24H PRN; Protocol; 5 MCG/KG/MIN PRN Reason: TITRATE PER MD ORDER Last Titration: 09/13/16 09:00 Dose: Infused Metoprolol Tartrate (Lopressor) 5 mg IVP Q8 [facility] Last Admin: 09/20/16 19:30 Dose: 5 mg Nitroglycerin (Nitro-Bid 2% Oint) 1 ea TOP Q6H [facility] Last Admin: 09/20/16 16:30 Dose: 1 ea - Labs Labs: 09/20/16 06:23 09/20/16 06:23 PT 11.9 SECONDS (9.7-12.2) 09/20/16 06:23 INR 1.1 09/20/16 06:23 APTT 28 SECONDS (21-34) 09/20/16 06:23 - Head Exam Head Exam: ATRAUMATIC - Eye Exam Eye Exam: Normal appearance - ENT Exam ENT Exam: Mucous Membranes Dry - Respiratory Exam Respiratory Exam: NORMAL BREATHING PATTERN - Cardiovascular Exam Cardiovascular Exam: +S1, +S2 - GI/Abdominal Exam GI & Abdominal Exam: Normal Bowel Sounds Assessment and Plan (1) TTP (thrombotic thrombocytopenic purpura) Assessment & Plan: relapsed on plasma exchange for Rituximab treatment Thursday Status: Acute
[2016-09-20] MEDS ORDERED: Enalaprilat 2.5 MG/2 ML IV ONE (20:40)
[2016-09-21] MEDS: Metoprolol 1 mg/ml Inj IVP SCH ×4 (01:10→22:14)
[2016-09-21] MEDS: Nitroglycerin 2% Ointment Foilpak UD TOP SCH ×5 (01:10→22:03)
--- NOTE | 2016-09-21 02:26 | CON ---
DATE: 09/20/2016 LOCATION: The patient is located in ICU bed #1. REFERRING PHYSICIAN: Kavon Ureña MD REASON FOR RENAL FOLLOWUP: End-stage renal disease and continuation of hemodialysis, TTP. HISTORY OF PRESENT ILLNESS: Mrs. Denise Garcia is an 80-year-old elderly female with a history of longstanding hypertension; rheumatoid arthritis; cardiomyopathy; CHF; respiratory failure, status post intubation x2, was recently extubated 2 days ago; TTP, on plasmapheresis, relapsing x3; and renal failure requiring hemodialysis for the last 6 to 8 weeks. The patient is feeling much better, not in acute distress, following commands appropriately. The patient's family at bedside. The patient underwent hemodialysis today and had ultrafiltration about 3.3 L today, not in distress. PHYSICAL EXAMINATION: GENERAL: Mrs. Denise Garcia is an 80-year-old elderly female, moderately built, moderately nourished, not in acute distress. HEENT: Pupils are normal and reactive to light and accommodation. Conjunctivae pink. Sclerae anicteric. Tongue is moist. Trachea is midline. LUNGS: Symmetry on both sides. Bilateral breath sounds present. Clear on auscultation. CARDIOVASCULAR SYSTEM: [place] at the fifth intercostal space, midclavicular line. S1 and S2 audible. No murmur or gallop. ABDOMEN: Normal in appearance. Soft and tympanic. No guarding. No rigidity. No hepatosplenomegaly. CENTRAL NERVOUS SYSTEM: The patient is alert, awake and oriented x2 to 3. Sensory and motor system is grossly within normal limits. EXTREMITIES: No cyanosis, no clubbing, no edema. CURRENT MEDICATIONS: Include as follows; Artificial tears, Benadryl during plasmapheresis and calcium gluconate during plasmapheresis, nitro paste 1 inch topical q. 6 hours, Solu-Medrol 100 mg IV once during plasmapheresis and Tylenol. LABORATORY DATA: Includes as follows: As of 09/20/2016, WBC 8.9, hemoglobin 7.5, hematocrit is 23.8 and platelets 130. PH 7.58, pCO2 of 46, pO2 of 73, bicarb is 40, and saturation is 98.8, on Venti mask at 50%. Other laboratory data: Sodium 144, potassium 3.4, chloride 95, CO2 of 36, BUN 41, creatinine 3.4, and glucose 146. Calcium 8.4, phosphorous 5.4, and magnesium is 2. Total bilirubin is 0.3, AST 21, ALT 248, alkaline phosphatase 70, total protein 5.3 and albumin is 3.3. ASSESSMENT: In summary, Mrs. Denise Garcia is an 80-year-old elderly female with hypertension, cardiomyopathy, rheumatoid arthritis, thrombocytopenia, thrombotic thrombocytopenic purpura, renal failure on hemodialysis 3 to 4 times a week. 1. 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 The patient's family refused biopsy in the past. 2. Hypertension. Blood pressure is stable. We will add Norvasc 5 mg p.o. daily and hold for systolic blood pressure less than 130 and consider to add Cozaar 50 mg daily if blood pressure is still uncontrolled. 3. 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 The patient is relapsing since diagnosis 6 weeks ago, this is third episode. The patient has thrombocytopenia. 4. Cardiomyopathy. We will follow with you. Thank you for allowing me to participate in your patient's care. 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 Montanez. Horacio Graham MD
[2016-09-21 06:48] LABS: BASO % 0.1 % (0.0-2.0); HEMATOCRIT 19.8 % (34.0-47.0); LYMPH # 0.4 K/uL (1.0-4.3); LYMPH % 5.6 % (20.0-40.0); MEAN CELL VOLUME 94.7 fL (81.0-99.0); MEAN CORPUSCULAR HEMOGLOBIN 29.5 pg (27.0-31.0); MEAN CORPUSCULAR HGB CONC 31.2 g/dL (33.0-37.0); MEAN PLATELET VOLUME 10.5 fL (7.2-11.7); MONO # 0.3 K/uL (0.0-0.8); MONO % 3.4 % (0.0-10.0); NRBC % 0.2 % (0.0-2.0); PLATELET COUNT 104 K/uL (130-400); RED CELL DISTRIBUTION WIDTH 18.4 % (11.5-14.5); WHITE BLOOD COUNT 7.6 K/uL (4.8-10.8)
[2016-09-21 07:18] LABS: ALB/GLOB RATIO 1.2 (1.0-2.1); BILIRUBIN,TOTAL 0.5 mg/dL (0.2-1.3); CALCIUM 8.4 mg/dl (8.6-10.4); MAGNESIUM 1.9 mg/dL (1.6-2.3); PHOSPHOROUS 4.9 mg/dL (2.5-4.5); POTASSIUM 3.6 mmol/L (3.6-5.2); TOTAL PROTEIN 5.6 g/dL (6.3-8.3)
[2016-09-21 09:25] LABS: NEUTROPHIL 92 % (50-75); TOTAL CELLS COUNTED 100
--- NOTE | 2016-09-21 10:00 | CP.PCM.PN ---
Subjective - Date & Time of Evaluation Date of Evaluation: 09/21/16 Time of Evaluation: 13:00 - Subjective Subjective: clinically same Objective - Vital Signs/Intake and Output Vital Signs (last 24 hours): Temp Pulse Resp BP Pulse Ox 98.0 F 69 15 174/93 H 100 09/21/16 04:00 09/21/16 09:00 09/21/16 09:00 09/21/16 08:46 09/21/16 09:00 Intake and Output: 09/21/16 09/21/16 06:59 18:59 Intake Total 0 0 Output Total 300 Balance 0 -300 - Medications Medications: Current Medications Acetaminophen (Tylenol 325mg Tab) 650 mg PO Q6 PRN PRN Reason: Fever >100.4 F Artificial Tears (Artificial Tears) 0 ml OU QID [facility] Last Admin: 09/20/16 21:08 Dose: 2 drop Famotidine (Pepcid) 20 mg IVP DAILY [facility] Last Admin: 09/20/16 09:21 Dose: 20 mg Propofol (Diprivan) 1,000 mg in 100 mls @ 2.16 mls/hr IV .Q24H PRN; Protocol; 5 MCG/KG/MIN PRN Reason: TITRATE PER MD ORDER Last Titration: 09/13/16 09:00 Dose: Infused Metoprolol Tartrate (Lopressor) 5 mg IVP Q8 [facility] Last Admin: 09/21/16 05:51 Dose: 5 mg Nitroglycerin (Nitro-Bid 2% Oint) 1 ea TOP Q6H [facility] Last Admin: 09/21/16 05:50 Dose: 1 ea - Labs Labs: 09/21/16 06:44 09/21/16 06:44 PT 11.9 SECONDS (9.7-12.2) 09/20/16 06:23 INR 1.1 09/20/16 06:23 APTT 28 SECONDS (21-34) 09/20/16 06:23 - Constitutional Appears: Well - Head Exam Head Exam: ATRAUMATIC, NORMAL INSPECTION, NORMOCEPHALIC - Eye Exam Eye Exam: EOMI, Normal appearance, PERRL Pupil Exam: NORMAL ACCOMODATION, PERRL - ENT Exam ENT Exam: Mucous Membranes Moist, Normal Exam - Neck Exam Neck Exam: Full ROM, Normal Inspection. absent: Lymphadenopathy - Respiratory Exam Respiratory Exam: Decreased Breath Sounds - Cardiovascular Exam Cardiovascular Exam: REGULAR RHYTHM, +S1, +S2 - GI/Abdominal Exam GI & Abdominal Exam: Soft, Diminished Bowel Sounds - Rectal Exam Rectal Exam: Deferred Assessment and Plan (1) Cardiac dysrhythmia Status: Acute (2) ESRD (end stage renal disease) on dialysis Status: Acute (3) Pulmonary edema Status: Acute (4) MARCO (acute kidney injury) Status: Acute (5) Acute respiratory failure requiring reintubation Status: Acute (6) Arthritis Status: Acute (7) CHF (congestive heart failure) Status: Acute (8) Dehydration Status: Acute (9) Dehydration Status: Acute (10) Diverticulosis Status: Acute (11) Elevated CEA Status: Acute (12) Hypertension Status: Acute (13) Inguinal lymphadenopathy Status: Acute (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
[2016-09-21] MEDS: Aritificial Tears (15ml) OU SCH ×4 (10:06→21:59)
--- NOTE | 2016-09-21 11:11 | CP.PCM.PN ---
Subjective - Date & Time of Evaluation Date of Evaluation: 09/21/16 Time of Evaluation: 11:10 - Subjective Subjective: pt is seen and examined, follow up consult is dictated #[id number] pt is on bipap , in pulmonary edema, for stat hd this am and tomorrow, check ldh, stool ob, hatptoglobin Objective - Vital Signs/Intake and Output Vital Signs (last 24 hours): Temp Pulse Resp BP Pulse Ox 98.0 F 68 21 181/94 H 98 09/21/16 04:00 09/21/16 11:00 09/21/16 11:00 09/21/16 10:56 09/21/16 11:00 Intake and Output: 09/21/16 09/21/16 06:59 18:59 Intake Total 0 0 Output Total 300 Balance 0 -300 - Medications Medications: Current Medications Acetaminophen (Tylenol 325mg Tab) 650 mg PO Q6 PRN PRN Reason: Fever >100.4 F Artificial Tears (Artificial Tears) 0 ml OU QID [facility] Last Admin: 09/21/16 10:06 Dose: 1 drop Famotidine (Pepcid) 20 mg IVP DAILY [facility] Last Admin: 09/21/16 10:06 Dose: 20 mg Propofol (Diprivan) 1,000 mg in 100 mls @ 2.16 mls/hr IV .Q24H PRN; Protocol; 5 MCG/KG/MIN PRN Reason: TITRATE PER MD ORDER Last Titration: 09/13/16 09:00 Dose: Infused Metoprolol Tartrate (Lopressor) 5 mg IVP Q8 [facility] Last Admin: 09/21/16 05:51 Dose: 5 mg Nitroglycerin (Nitro-Bid 2% Oint) 1 ea TOP Q6H [facility] Last Admin: 09/21/16 10:07 Dose: 1 ea - Labs Labs: 09/21/16 06:44 09/21/16 06:44 PT 11.9 SECONDS (9.7-12.2) 09/20/16 06:23 INR 1.1 09/20/16 06:23 APTT 28 SECONDS (21-34) 09/20/16 06:23
--- NOTE | 2016-09-21 12:46 | RAD ---
HISTORY: CHF. Portable study 09:00 COMPARISON: September 20, 2016. 07:43. FINDINGS: LUNGS: Stable pulmonary edema. PLEURA: No significant pleural effusion identified, no pneumothorax apparent. CARDIOVASCULAR: No significant interval change compared to the prior examination(s). Venous access catheter in stable, satisfactory position. OSSEOUS STRUCTURES: No significant abnormalities. VISUALIZED UPPER ABDOMEN: Normal. OTHER FINDINGS: None. IMPRESSION: No significant interval change compared to the prior examination(s).
--- NOTE | 2016-09-21 14:21 | CON ---
DATE: FOLLOWUP RENAL CONSULTATION The patient is located in ICU, bed #1. REQUESTED BY: Kavon Ureña MD REASON FOR FOLLOWUP: End-stage renal disease for continuation of the hemodialysis. SUBJECTIVE: Mrs. Denise Garcia is an 80 years old elderly female with a past medical history significant for longstanding hypertension, rheumatoid arthritis, CHF, cardiomyopathy, thrombocytopenia, TTP with relapsing of TTP x3 in the last 3 months was admitted from the [facility] with leakage of LifeVest and the patient was also found to have thrombocytopenia and started on plasmapheresis. Subsequently, the patient was transferred to ICU for respiratory failure and shortness of breath. The patient was extubated 3 days ago. The patient underwent hemodialysis yesterday morning and ultrafiltration of 3.3 L and subsequently underwent plasmapheresis and plasmapheresis was discontinued after sometime due to respiratory failure and requiring the patient to be placed on BiBAP machine and IV nitro for hypoxia. The patient is slightly better on BiBAP not in acute distress. No chest pain. No palpitation. The patient's family is at bedside. PHYSICAL EXAMINATION: GENERAL: Mrs. Denise Garcia is an 80 years old elderly female, moderately built, moderately nourished, on BiPAP machine. VITAL SIGNS: As follows; blood pressure 181/94, pulse 69, respirations 15, temperature 97.6 and saturation 98-100%. HEENT: Pupils are normal reactive to light and accommodation. Conjunctivae pink. Sclerae anicteric. LUNGS: Symmetrical on both sides. Bilateral breath sounds present. Bilateral crackles present. CVS: [place] at the fifth intercostal space, midclavicular line. S1 and S2 audible. No murmur or gallop. ABDOMEN: Normal in appearance. Soft and tympanic. No guarding. No rigidity. No hepatosplenomegaly. 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 Sensory and motor system is grossly within normal limits. EXTREMITIES: No cyanosis, no clubbing, no edema. CURRENT MEDICATIONS: Include as follows; Artificial tears, metoprolol 5 mg IV q.8 hours and IV nitroglycerine paste 1-inch to anterior chest wall q.6 hours, Pepcid 20 mg daily, and Tylenol. LABORATORY DATA: As follows; as of 10/08/2016, WBC 7.6, hemoglobin 6.2, hematocrit 29.8, and platelets 104, neutrophils 92 and lymph is 7, and nucleoid RBC is 1. Sodium 143, potassium 3.6, chloride 97, CO2 29, BUN 28, creatinine is 2.5, glucose 136, calcium 8.3, phosphorus 4.9, and magnesium 1.9. Total bilirubin 0.5, AST 92, ALT 115, alkaline phosphatase 127, total protein 5.6, and albumin is 3.1. Reported chest x-ray, diffuse haziness in both lung lange and official report is not available at this time. Followup official chest x-ray report as of 09/20/2016, chest x-ray. Impression is no significant interval change compared to the prior examination, stable bilateral pleural effusion and stable pulmonary edema. ASSESSMENT AND PLAN: In summary, Mrs. Denise Garcia is an 80 years old elderly female with a history of hypertension, rheumatoid arthritis, anemia, thrombocytopenia, renal failure, status post extubation on plasmapheresis: 1. Endstage renal failure, most likely secondary to thrombotic microangiopathy, secondary to thrombotic thrombocytopenic purpura. The patient's family refused kidney biopsy in the past. 2. Pulmonary edema secondary to plasmapheresis and also secondary to cardiomyopathy. 3. Uncontrolled hypertension. 4. Anemia. 5. Thrombocytopenia, rule out hemolysis, rule out gastrointestinal bleed. PLAN: Check stool for occult blood. Check LDH and haptoglobin levels and we will schedule for hemodialysis today and tomorrow. We will try to ultrafilter as much as patient can tolerate and transfuse as needed during dialysis, as per Hematology and ICU recommendations. We will follow with you. Thank you for allowing me to participate in your patient's care. Hoarcio Graham MD
--- NOTE | 2016-09-21 22:11 | CP.CCUPN ---
CCU Subjective - Physician Review Events Since Last Encounter (Free Text): 09/21/16 22:09 Patient is morning become more labored breathing, on FiO2 100%. Patient was placed on BiPAP. Yesterday patient's hip plasmapheresis was discontinued in between because of the worsening shortness of breath. I spoke to the head of strategy. Patient will be getting the emergency dialysis. Later she got the emergency dialysis, and after the dialysis patient is seems to be much improving. But still needing high upper lip at this time. Will closely monitor the patient. Patient is 80-year-old female with multiple medical problems now with the severe pulmonary edema, overall multiorgan failure. Subjective (Free Text): The patient today slightly more awake, but easily dozing off. Hypoxia noted. Chest x-ray is worsening today. Patient is some episodes of lethargy also noted. But she is arousable with the deep stimuli. Extubated earlier. Patient had a suspected history of TTP, kidney failure, heart failure. Platelet count is improving now. Stable. But patient is still at high risk for reintubation. On prolonged course of recovery. Condition can get it treated, patient may need reintubation, and the again her symptoms, her condition can get worse. There is no advanced directives. Family should consider. Prognosis is at this time guarded. Vital signs reviewed Hypoxia noted. Blood pressure is stable otherwise Labs reviewed Nonspecific. We will continue to monitor. Patient is very unstable, will maintain the patient ICU for now CCU Objective - Vital Signs / Intake & Output Vital Signs (Last 4 hours): Vital Signs Temp Pulse Pulse Resp BP BP Pulse Ox 09/21/16 20:08 73 14 162/92 H 98 09/21/16 20:02 71 09/21/16 20:00 98.1 F 09/21/16 19:08 70 14 170/93 H 100 09/21/16 18:18 63 12 176/97 H 100 09/21/16 18:15 65 13 167/99 H 100 Intake and Output (Last 8hrs): Intake & Output 09/21/16 09/21/16 09/21/16 06:59 14:59 22:59 Intake Total 0 0 0 Output Total 500 0 Balance 0 -500 0 Weight 156 lb 12.8 oz Intake: Tube Feeding 0 0 0 Output: Stool 500 0 Emesis 0 0 Other: # Bowel Movements 1 1 - Physical Exam Head: Positive for: Atraumatic, Normocephalic Extroacular Muscles: Positive for: EOMI Mouth: Positive for: Moist Mucous Membranes Respiratory/Chest: Positive for: Decreased Breath Sounds. Negative for: Clear to Auscultation, Wheezes, Rhonchi Cardiovascular: Positive for: Normal S1, S2, Irregular Rhythm, Tachycardic. Negative for: Bradycardic Abdomen: Positive for: Normal Bowel Sounds. Negative for: Distention Upper Extremity: Negative for: Edema, Swelling Lower Extremity: Positive for: Edema, Swelling. Negative for: NORMAL PULSES ( diminished) Neurological: Negative for: GCS=15, Speech Normal Skin: Positive for: Warm, Dry, Normal Color Psychiatric: Negative for: Alert, Oriented x 3, Normal Insight, Normal Concentration - Medications Active Medications: Active Medications Generic Name Dose Route Start Last Admin Trade Name Freq PRN Reason Stop Dose Admin Acetaminophen 650 mg 08/16/16 03:42 Tylenol 325mg Tab PO Q6 PRN Fever >100.4 F Artificial Tears 0 ml 08/16/16 14:00 09/21/16 21:59 Artificial Tears OU 1 drop QID JESSI Administration Famotidine 20 mg 09/19/16 10:15 09/21/16 10:06 Pepcid IVP 20 mg DAILY JESSI Administration Propofol 1,000 mg in 100 mls @ 2.16 mls/hr 09/11/16 16:17 09/13/16 09:00 Diprivan IV Infused .Q24H PRN Titration TITRATE PER MD ORDER Protocol 5 MCG/KG/MIN Metoprolol Tartrate 5 mg 09/20/16 19:12 09/21/16 19:12 Lopressor IVP Not Given Q8 JESSI Nitroglycerin 1 ea 09/18/16 22:00 09/21/16 22:03 Nitro-Bid 2% Oint TOP 1 ea Q6H JESSI Administration - Patient Studies Lab Studies: Lab Studies 09/21/16 09/21/16 09/21/16 Range/Units 14:43 10:41 06:44 WBC (4.8-10.8) K/uL RBC (3.80-5.20) Mil/uL Hgb (11.0-16.0) g/dL Hct (34.0-47.0) % MCV (81.0-99.0) fL MCH (27.0-31.0) pg MCHC (33.0-37.0) g/dL RDW (11.5-14.5) % Plt Count (130-400) K/uL MPV (7.2-11.7) fL Neut % (Auto) (50.0-75.0) % Lymph % (Auto) (20.0-40.0) % [place] % (Auto) (0.0-10.0) % Eos % (Auto) (0.0-4.0) % Baso % (Auto) (0.0-2.0) % Neut # (1.8-7.0) K/uL Lymph # (1.0-4.3) K/uL [place] # (0.0-0.8) K/uL Eos # (0.0-0.7) K/uL Baso # (0.0-0.2) K/uL Neutrophils % (Manual) (50-75) % Lymphocytes % (Manual) (20-40) % Monocytes % (Manual) (0-10) % Platelet Estimate (NORMAL) Polychromasia Hypochromasia (manual) Anisocytosis (manual) Target Cells Sodium 143 (132-148) mmol/L Potassium 3.6 (3.6-5.2) mmol/L Chloride 97 L (98-107) mmol/L Carbon Dioxide 39 H (22-30) mmol/L Anion Gap 11 (10-20) BUN 28 H (7-17) mg/dL Creatinine 2.5 H (0.7-1.2) MG/DL Est GFR ( Amer) 22 Est GFR (Non-Af Amer) 19 Random Glucose 136 H (65-105) mg/dL Calcium 8.4 L (8.6-10.4) mg/dl Phosphorus 4.9 H (2.5-4.5) mg/dL Magnesium 1.9 (1.6-2.3) mg/dL Total Bilirubin 0.5 (0.2-1.3) mg/dL AST 92 H D (14-36) U/L ALT 115 H D (9-52) U/L Alkaline Phosphatase 127 H D (38-126) U/L Lactate Dehydrogenase 661 H (313-618) U/L Total Protein 5.6 L (6.3-8.3) g/dL Albumin 3.1 L (3.5-5.0) g/dL Globulin 2.5 (2.2-3.9) gm/dL Albumin/Globulin Ratio 1.2 (1.0-2.1) Blood Type O POSITIVE Antibody Screen Negative 09/21/16 Range/Units 06:44 WBC 7.6 (4.8-10.8) K/uL RBC 2.09 L (3.80-5.20) Mil/uL Hgb 6.2 L* (11.0-16.0) g/dL Hct 19.8 L (34.0-47.0) % MCV 94.7 (81.0-99.0) fL MCH 29.5 (27.0-31.0) pg MCHC 31.2 L (33.0-37.0) g/dL RDW 18.4 H (11.5-14.5) % Plt Count 104 L D (130-400) K/uL MPV 10.5 (7.2-11.7) fL Neut % (Auto) 90.9 H (50.0-75.0) % Lymph % (Auto) 5.6 L (20.0-40.0) % [place] % (Auto) 3.4 (0.0-10.0) % Eos % (Auto) 0.0 (0.0-4.0) % Baso % (Auto) 0.1 (0.0-2.0) % Neut # 6.9 (1.8-7.0) K/uL Lymph # 0.4 L (1.0-4.3) K/uL [place] # 0.3 (0.0-0.8) K/uL Eos # 0.0 (0.0-0.7) K/uL Baso # 0.0 (0.0-0.2) K/uL Neutrophils % (Manual) 92 H (50-75) % Lymphocytes % (Manual) 7 L (20-40) % Monocytes % (Manual) 1 (0-10) % Platelet Estimate Decreased L (NORMAL) Polychromasia Slight Hypochromasia (manual) Moderate Anisocytosis (manual) Slight Target Cells Slight Sodium (132-148) mmol/L Potassium (3.6-5.2) mmol/L Chloride (98-107) mmol/L Carbon Dioxide (22-30) mmol/L Anion Gap (10-20) BUN (7-17) mg/dL Creatinine (0.7-1.2) MG/DL Est GFR ( Amer) Est GFR (Non-Af Amer) Random Glucose (65-105) mg/dL Calcium (8.6-10.4) mg/dl Phosphorus (2.5-4.5) mg/dL Magnesium (1.6-2.3) mg/dL Total Bilirubin (0.2-1.3) mg/dL AST (14-36) U/L ALT (9-52) U/L Alkaline Phosphatase (38-126) U/L Lactate Dehydrogenase (313-618) U/L Total Protein (6.3-8.3) g/dL Albumin (3.5-5.0) g/dL Globulin (2.2-3.9) gm/dL Albumin/Globulin Ratio (1.0-2.1) Blood Type Antibody Screen Laboratory Results - last 24 hr 09/21/16 09/21/16 09/21/16 06:44 06:44 10:41 WBC 7.6 RBC 2.09 L Hgb 6.2 L* Hct 19.8 L MCV 94.7 MCH 29.5 MCHC 31.2 L RDW 18.4 H Plt Count 104 L D MPV 10.5 Neut % (Auto) 90.9 H Lymph % (Auto) 5.6 L [place] % (Auto) 3.4 Eos % (Auto) 0.0 Baso % (Auto) 0.1 Neut # 6.9 Lymph # 0.4 L [place] # 0.3 Eos # 0.0 Baso # 0.0 Neutrophils % (Manual) 92 H Lymphocytes % (Manual) 7 L Monocytes % (Manual) 1 Platelet Estimate Decreased L Polychromasia Slight Hypochromasia (manual) Moderate Anisocytosis (manual) Slight Target Cells Slight Sodium 143 Potassium 3.6 Chloride 97 L Carbon Dioxide 39 H Anion Gap 11 BUN 28 H Creatinine 2.5 H Est GFR ( Amer) 22 Est GFR (Non-Af Amer) 19 Random Glucose 136 H Calcium 8.4 L Phosphorus 4.9 H Magnesium 1.9 Total Bilirubin 0.5 AST 92 H D ALT 115 H D Alkaline Phosphatase 127 H D Lactate Dehydrogenase Total Protein 5.6 L Albumin 3.1 L Globulin 2.5 Albumin/Globulin Ratio 1.2 Blood Type O POSITIVE Antibody Screen Negative 09/21/16 14:43 WBC RBC Hgb Hct MCV MCH MCHC RDW Plt Count MPV Neut % (Auto) Lymph % (Auto) [place] % (Auto) Eos % (Auto) Baso % (Auto) Neut # Lymph # [place] # Eos # Baso # Neutrophils % (Manual) Lymphocytes % (Manual) Monocytes % (Manual) Platelet Estimate Polychromasia Hypochromasia (manual) Anisocytosis (manual) Target Cells Sodium Potassium Chloride Carbon Dioxide Anion Gap BUN Creatinine Est GFR ( Amer) Est GFR (Non-Af Amer) Random Glucose Calcium Phosphorus Magnesium Total Bilirubin AST ALT Alkaline Phosphatase Lactate Dehydrogenase 661 H Total Protein Albumin Globulin Albumin/Globulin Ratio Blood Type Antibody Screen Fingerstick Blood Sugar Results: 134 Critical Care Progress Note - Nutrition Nutrition: Nutrition Category Date Time Status Consistent Carbohydrate [DIET] Diets 09/19/16 Lunch Active
[2016-09-22] MEDS: Nitroglycerin 2% Ointment Foilpak UD TOP SCH ×4 (03:54→21:13)
[2016-09-22 06:23] LABS: BILIRUBIN,TOTAL 0.8 mg/dL (0.2-1.3); CALCIUM 8.4 mg/dl (8.6-10.4); MAGNESIUM 1.9 mg/dL (1.6-2.3); PHOSPHOROUS 3.3 mg/dL (2.5-4.5); POTASSIUM 2.9 mmol/L (3.6-5.2); TOTAL PROTEIN 5.9 g/dL (6.3-8.3)
[2016-09-22 06:29] LABS: BASO % 0.1 % (0.0-2.0); EOS # 0.1 K/uL (0.0-0.7); EOS % 0.4 % (0.0-4.0); HEMATOCRIT 29.8 % (34.0-47.0); LYMPH # 0.9 K/uL (1.0-4.3); MEAN CELL VOLUME 96.1 fL (81.0-99.0); MEAN CORPUSCULAR HGB CONC 31.2 g/dL (33.0-37.0); MEAN PLATELET VOLUME 10.5 fL (7.2-11.7); MONO # 0.5 K/uL (0.0-0.8); MONO % 3.8 % (0.0-10.0); NRBC % 0.2 % (0.0-2.0); PLATELET COUNT 112 K/uL (130-400); RED CELL DISTRIBUTION WIDTH 17.1 % (11.5-14.5); WHITE BLOOD COUNT 14.2 K/uL (4.8-10.8)
[2016-09-22 06:34] LABS: ALB/GLOB RATIO 1.3 (1.0-2.1)
[2016-09-22] MEDS: Metoprolol 1 mg/ml Inj IVP SCH ×2 (07:19→15:48)
[2016-09-22 08:32] LABS: NEUTROPHIL 90 % (50-75); TOTAL CELLS COUNTED 100
[2016-09-22] MEDS: Aritificial Tears (15ml) OU SCH ×4 (09:48→21:13)
--- NOTE | 2016-09-22 10:10 | CP.CCUPN ---
CCU Subjective - Physician Review Subjective (Free Text): Patient was seen and examined at bedside in the morning. Patient is more alert, but uncooperative and unable to respond to questions and review of systems. 09/22/16 10:07 CCU Objective - Vital Signs / Intake & Output Vital Signs (Last 4 hours): Vital Signs Temp Pulse Resp BP Pulse Ox 09/22/16 08:03 55 L 09/22/16 08:02 57 L 12 154/76 H 100 09/22/16 08:00 98.6 F 55 L 15 100 09/22/16 07:02 60 13 162/72 H 100 09/22/16 07:00 59 L 15 100 Intake and Output (Last 8hrs): Intake & Output 09/21/16 09/22/16 09/22/16 22:59 06:59 14:59 Intake Total 0 0 30 Output Total 0 0 0 Balance 0 0 30 Weight 93 lb 4.089 oz Intake: Intake, IV Amount 30 Left Antecubital 30 Tube Feeding 0 0 0 Output: Stool 0 0 0 Emesis 0 - Physical Exam Head: Positive for: Atraumatic, Normocephalic Mouth: Positive for: Moist Mucous Membranes Respiratory/Chest: Positive for: Decreased Breath Sounds. Negative for: Clear to Auscultation, Wheezes, Rhonchi Cardiovascular: Positive for: Normal S1, S2, Irregular Rhythm, Tachycardic. Negative for: Bradycardic Abdomen: Positive for: Normal Bowel Sounds. Negative for: Distention Upper Extremity: Negative for: Edema, Swelling Lower Extremity: Positive for: Edema, Swelling. Negative for: NORMAL PULSES ( diminished) Neurological: Negative for: GCS=15, Speech Normal Skin: Positive for: Warm, Dry, Normal Color Psychiatric: Negative for: Alert, Oriented x 3, Normal Insight, Normal Concentration - Medications Active Medications: Active Medications Generic Name Dose Route Start Last Admin Trade Name Freq PRN Reason Stop Dose Admin Acetaminophen 650 mg 08/16/16 03:42 Tylenol 325mg Tab PO Q6 PRN Fever >100.4 F Artificial Tears 0 ml 08/16/16 14:00 09/22/16 09:48 Artificial Tears OU 1 drop QID JESSI Administration Famotidine 20 mg 09/19/16 10:15 09/22/16 09:48 Pepcid IVP 20 mg DAILY JESSI Administration Hydralazine HCl 10 mg 09/22/16 10:00 09/22/16 09:48 Apresoline PO 10 mg QID JESSI Administration Potassium Chloride 20 meq in 100 mls @ 50 mls/hr 09/22/16 08:23 09/22/16 08: 39 Potassium Chloride 20 Meq/100 Ml IVPB 09/22/16 10:22 50 mls/hr ONCE ONE Administration Metoprolol Tartrate 5 mg 09/20/16 19:12 09/22/16 07:19 Lopressor IVP Not Given Q8 JESSI Nitroglycerin 1 ea 09/18/16 22:00 09/22/16 09:40 Nitro-Bid 2% Oint TOP 1 ea Q6H JESSI Administration - Patient Studies Lab Studies: Lab Studies 09/22/16 09/22/16 09/21/16 Range/Units 06:07 06:06 14:43 WBC 14.2 H D (4.8-10.8) K/uL RBC 3.10 L (3.80-5.20) Mil/uL Hgb 9.3 L D (11.0-16.0) g/dL Hct 29.8 L (34.0-47.0) % MCV 96.1 (81.0-99.0) fL MCH 30.0 (27.0-31.0) pg MCHC 31.2 L (33.0-37.0) g/dL RDW 17.1 H (11.5-14.5) % Plt Count 112 L (130-400) K/uL MPV 10.5 (7.2-11.7) fL Neut % (Auto) 89.7 H (50.0-75.0) % Lymph % (Auto) 6.0 L (20.0-40.0) % [place] % (Auto) 3.8 (0.0-10.0) % Eos % (Auto) 0.4 (0.0-4.0) % Baso % (Auto) 0.1 (0.0-2.0) % Neut # 12.7 H (1.8-7.0) K/uL Lymph # 0.9 L (1.0-4.3) K/uL [place] # 0.5 (0.0-0.8) K/uL Eos # 0.1 (0.0-0.7) K/uL Baso # 0.0 (0.0-0.2) K/uL Neutrophils % (Manual) 90 H (50-75) % Band Neutrophils % 2 (0-2) % Lymphocytes % (Manual) 5 L (20-40) % Monocytes % (Manual) 3 (0-10) % Platelet Estimate Slightly decreased L (NORMAL) Polychromasia Slight Hypochromasia (manual) Slight Anisocytosis (manual) Slight Target Cells Slight Sodium 141 (132-148) mmol/L Potassium 2.9 L (3.6-5.2) mmol/L Chloride 99 (98-107) mmol/L Carbon Dioxide 31 H (22-30) mmol/L Anion Gap 14 (10-20) BUN 22 H (7-17) mg/dL Creatinine 2.3 H (0.7-1.2) MG/DL Est GFR ( Amer) 25 Est GFR (Non-Af Amer) 20 Random Glucose 75 (65-105) mg/dL Calcium 8.4 L (8.6-10.4) mg/dl Phosphorus 3.3 (2.5-4.5) mg/dL Magnesium 1.9 (1.6-2.3) mg/dL Total Bilirubin 0.8 (0.2-1.3) mg/dL AST 64 H D (14-36) U/L ALT 104 H (9-52) U/L Alkaline Phosphatase 121 (38-126) U/L Lactate Dehydrogenase 661 H (313-618) U/L Total Protein 5.9 L (6.3-8.3) g/dL Albumin 3.3 L (3.5-5.0) g/dL Globulin 2.6 (2.2-3.9) gm/dL Albumin/Globulin Ratio 1.3 (1.0-2.1) Blood Type Antibody Screen 09/21/16 Range/Units 10:41 WBC (4.8-10.8) K/uL RBC (3.80-5.20) Mil/uL Hgb (11.0-16.0) g/dL Hct (34.0-47.0) % MCV (81.0-99.0) fL MCH (27.0-31.0) pg MCHC (33.0-37.0) g/dL RDW (11.5-14.5) % Plt Count (130-400) K/uL MPV (7.2-11.7) fL Neut % (Auto) (50.0-75.0) % Lymph % (Auto) (20.0-40.0) % [place] % (Auto) (0.0-10.0) % Eos % (Auto) (0.0-4.0) % Baso % (Auto) (0.0-2.0) % Neut # (1.8-7.0) K/uL Lymph # (1.0-4.3) K/uL [place] # (0.0-0.8) K/uL Eos # (0.0-0.7) K/uL Baso # (0.0-0.2) K/uL Neutrophils % (Manual) (50-75) % Band Neutrophils % (0-2) % Lymphocytes % (Manual) (20-40) % Monocytes % (Manual) (0-10) % Platelet Estimate (NORMAL) Polychromasia Hypochromasia (manual) Anisocytosis (manual) Target Cells Sodium (132-148) mmol/L Potassium (3.6-5.2) mmol/L Chloride (98-107) mmol/L Carbon Dioxide (22-30) mmol/L Anion Gap (10-20) BUN (7-17) mg/dL Creatinine (0.7-1.2) MG/DL Est GFR ( Amer) Est GFR (Non-Af Amer) Random Glucose (65-105) mg/dL Calcium (8.6-10.4) mg/dl Phosphorus (2.5-4.5) mg/dL Magnesium (1.6-2.3) mg/dL Total Bilirubin (0.2-1.3) mg/dL AST (14-36) U/L ALT (9-52) U/L Alkaline Phosphatase (38-126) U/L Lactate Dehydrogenase (313-618) U/L Total Protein (6.3-8.3) g/dL Albumin (3.5-5.0) g/dL Globulin (2.2-3.9) gm/dL Albumin/Globulin Ratio (1.0-2.1) Blood Type O POSITIVE Antibody Screen Negative Laboratory Results - last 24 hr 09/21/16 09/21/16 09/22/16 10:41 14:43 06:06 WBC RBC Hgb Hct MCV MCH MCHC RDW Plt Count MPV Neut % (Auto) Lymph % (Auto) [place] % (Auto) Eos % (Auto) Baso % (Auto) Neut # Lymph # [place] # Eos # Baso # Neutrophils % (Manual) Band Neutrophils % Lymphocytes % (Manual) Monocytes % (Manual) Platelet Estimate Polychromasia Hypochromasia (manual) Anisocytosis (manual) Target Cells Sodium 141 Potassium 2.9 L Chloride 99 Carbon Dioxide 31 H Anion Gap 14 BUN 22 H Creatinine 2.3 H Est GFR ( Amer) 25 Est GFR (Non-Af Amer) 20 Random Glucose 75 Calcium 8.4 L Phosphorus 3.3 Magnesium 1.9 Total Bilirubin 0.8 AST 64 H D ALT 104 H Alkaline Phosphatase 121 Lactate Dehydrogenase 661 H Total Protein 5.9 L Albumin 3.3 L Globulin 2.6 Albumin/Globulin Ratio 1.3 Blood Type O POSITIVE Antibody Screen Negative 09/22/16 06:07 WBC 14.2 H D RBC 3.10 L Hgb 9.3 L D Hct 29.8 L MCV 96.1 MCH 30.0 MCHC 31.2 L RDW 17.1 H Plt Count 112 L MPV 10.5 Neut % (Auto) 89.7 H Lymph % (Auto) 6.0 L [place] % (Auto) 3.8 Eos % (Auto) 0.4 Baso % (Auto) 0.1 Neut # 12.7 H Lymph # 0.9 L [place] # 0.5 Eos # 0.1 Baso # 0.0 Neutrophils % (Manual) 90 H Band Neutrophils % 2 Lymphocytes % (Manual) 5 L Monocytes % (Manual) 3 Platelet Estimate Slightly decreased L Polychromasia Slight Hypochromasia (manual) Slight Anisocytosis (manual) Slight Target Cells Slight Sodium Potassium Chloride Carbon Dioxide Anion Gap BUN Creatinine Est GFR ( Amer) Est GFR (Non-Af Amer) Random Glucose Calcium Phosphorus Magnesium Total Bilirubin AST ALT Alkaline Phosphatase Lactate Dehydrogenase Total Protein Albumin Globulin Albumin/Globulin Ratio Blood Type Antibody Screen Fingerstick Blood Sugar Results: 134 Review of Systems - Review of Systems Systems not reviewed;Unavailable: Uncooperative Critical Care Progress Note - Nutrition Nutrition: Nutrition Category Date Time Status Consistent Carbohydrate [DIET] Diets 09/22/16 Lunch Active Assessment/Plan (1) Pulmonary edema Assessment and plan: 80-year-old female with past medical history of systolic CHF (EF-10%). 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 Now in recurrent respiratory failure from flash pulmonary edema s/p plasma exchange. In ICU, intubated. Chest xray is improving, pressure support successful and patient was extubated on 09/17/16. Patient received plasma exchange on 09/16 - 09/18 and is scheduled to receive today, 09/18/16. Patient has pulmonary edema secondary to plasmapheresis, received extra dialysis on . Patient was on BiPAP and now ventimask. Patient will possibly start Rituximab today as per Dr. Montanez. Neuro: off sedation--> Alert - Head CT: no intracranial mass, hemorrhage, or acute infarct. 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 Chronic paranasal sinusitis; nonspecific right mastoid effusion Pulm: Acute respiratory failure secondary to pulmonary edema status post plasma exchange, dialyzed to remove fluid. - episode of pulmonary edema s/p plasma exchange over the weekend. - BiPAP over night; now on ventimask 50% CV: Hemodynamically stable. Hypertensive, the pressure will drop with dialysis. 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 - Discussed plan of care with Dr. Montanez. - Daily plasma exchange - Patient scheduled to start treatment with Rituximab today, 09/22/16 Renal: End-stage renal disease now on chronic dialysis - Diaylsis T//Thu - Dialyzed 09/21/16 due to pulm edema secondary to plasmapheresis - Hypokalemia: KCl 20mEq IV Endo: No acute issues GI: NPO - Pepcid - Elevated Liver enzymes- improving ID: No acute issues. Skin: - Sacral ulcer, stage 2 - Wound care - Apply duoderm DVT proph - heparin subcutaneous GI proph - Pepcid daily PT/OT Cole catheter- monitor I/O Code status - full code Palliative care consulted Current Visit: Yes Status: Acute
--- NOTE | 2016-09-22 11:15 | CP.PCM.PN ---
Subjective - Date & Time of Evaluation Date of Evaluation: 09/22/16 Time of Evaluation: 11:12 - Subjective Subjective: s/p dialysis 09/21- UF 3100ml BP elevated- hydralazine started remains oliguric for likely rituxamab today- as per heme same lethargy as described Objective - Vital Signs/Intake and Output Vital Signs (last 24 hours): Temp Pulse Resp BP Pulse Ox 98.6 F 109 H 16 177/98 H 88 L 09/22/16 08:00 09/22/16 10:30 09/22/16 10:02 09/22/16 10:02 09/22/16 10:02 Intake and Output: 09/22/16 09/22/16 06:59 18:59 Intake Total 0 60 Output Total 0 0 Balance 0 60 - Medications Medications: Current Medications Acetaminophen (Tylenol 325mg Tab) 650 mg PO Q6 PRN PRN Reason: Fever >100.4 F Artificial Tears (Artificial Tears) 0 ml OU QID [facility] Last Admin: 09/22/16 09:48 Dose: 1 drop Famotidine (Pepcid) 20 mg IVP DAILY [facility] Last Admin: 09/22/16 09:48 Dose: 20 mg Hydralazine HCl (Apresoline) 10 mg PO QID [facility] Last Admin: 09/22/16 09:48 Dose: 10 mg Metoprolol Tartrate (Lopressor) 5 mg IVP Q8 [facility] Last Admin: 09/22/16 07:19 Dose: Not Given Nitroglycerin (Nitro-Bid 2% Oint) 1 ea TOP Q6H [facility] Last Admin: 09/22/16 09:40 Dose: 1 ea - Labs Labs: 09/22/16 06:07 09/22/16 06:06 PT 11.9 SECONDS (9.7-12.2) 09/20/16 06:23 INR 1.1 09/20/16 06:23 APTT 28 SECONDS (21-34) 09/20/16 06:23 - Constitutional Appears: In Acute Distress, Chronically Ill - Head Exam Head Exam: ATRAUMATIC, NORMAL INSPECTION - Eye Exam Eye Exam: EOMI, Normal appearance - Neck Exam Neck Exam: Normal Inspection. absent: Tenderness - Respiratory Exam Respiratory Exam: Decreased Breath Sounds, Clear to Ausculation Bilateral - Cardiovascular Exam Cardiovascular Exam: REGULAR RHYTHM, +S1 - GI/Abdominal Exam GI & Abdominal Exam: Soft. absent: Tenderness - Extremities Exam Extremities Exam: Normal Inspection. 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
--- NOTE | 2016-09-22 13:33 | CP.PCM.PN ---
Subjective - Date & Time of Evaluation Date of Evaluation: 09/22/16 Time of Evaluation: 13:00 - Subjective Subjective: clinically same Objective - Vital Signs/Intake and Output Vital Signs (last 24 hours): Temp Pulse Resp BP Pulse Ox 99.1 F 71 15 166/81 H 99 09/22/16 12:00 09/22/16 12:02 09/22/16 12:02 09/22/16 12:02 09/22/16 12:02 Intake and Output: 09/22/16 09/22/16 06:59 18:59 Intake Total 0 100 Output Total 0 0 Balance 0 100 - Medications Medications: Current Medications Acetaminophen (Tylenol 325mg Tab) 650 mg PO Q6 PRN PRN Reason: Fever >100.4 F Artificial Tears (Artificial Tears) 0 ml OU QID [facility] Last Admin: 09/22/16 09:48 Dose: 1 drop Famotidine (Pepcid) 20 mg IVP DAILY [facility] Last Admin: 09/22/16 09:48 Dose: 20 mg Hydralazine HCl (Apresoline) 10 mg PO QID [facility] Last Admin: 09/22/16 09:48 Dose: 10 mg Metoprolol Tartrate (Lopressor) 5 mg IVP Q8 [facility] Last Admin: 09/22/16 07:19 Dose: Not Given Nitroglycerin (Nitro-Bid 2% Oint) 1 ea TOP Q6H [facility] Last Admin: 09/22/16 09:40 Dose: 1 ea - Labs Labs: 09/22/16 06:07 09/22/16 06:06 PT 11.9 SECONDS (9.7-12.2) 09/20/16 06:23 INR 1.1 09/20/16 06:23 APTT 28 SECONDS (21-34) 09/20/16 06:23 - Constitutional Appears: Well - Head Exam Head Exam: ATRAUMATIC, NORMAL INSPECTION, NORMOCEPHALIC - Eye Exam Eye Exam: EOMI, Normal appearance, PERRL Pupil Exam: NORMAL ACCOMODATION, PERRL - ENT Exam ENT Exam: Mucous Membranes Moist, Normal Exam - Neck Exam Neck Exam: Full ROM, Normal Inspection. absent: Lymphadenopathy - Respiratory Exam Respiratory Exam: Decreased Breath Sounds - Cardiovascular Exam Cardiovascular Exam: REGULAR RHYTHM, +S1, +S2 - GI/Abdominal Exam GI & Abdominal Exam: Soft, Diminished Bowel Sounds - Rectal Exam Rectal Exam: Deferred Assessment and Plan (1) Cardiac dysrhythmia Status: Acute (2) ESRD (end stage renal disease) on dialysis Status: Acute (3) Pulmonary edema Status: Acute (4) MARCO (acute kidney injury) Status: Acute (5) Acute respiratory failure requiring reintubation Status: Acute (6) Arthritis Status: Acute (7) CHF (congestive heart failure) Status: Acute (8) Dehydration Status: Acute (9) Dehydration Status: Acute (10) Diverticulosis Status: Acute (11) Elevated CEA Status: Acute (12) Hypertension Status: Acute (13) Inguinal lymphadenopathy Status: Acute (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
[2016-09-22] MEDS ORDERED: DEXAMETHASONE IV ONE (14:30)
[2016-09-22] MEDS ORDERED: SODIUM CHLORIDE 0.9% IV ONE (14:30)
[2016-09-22] MEDS ORDERED: DiphenhydrAMINE 50 mg/ml Inj IVP ONE (14:30)
[2016-09-22] MEDS ORDERED: ONDANSETRON IV ONE (14:30)
[2016-09-23] MEDS: Nitroglycerin 2% Ointment Foilpak UD TOP SCH ×4 (04:45→22:47)
[2016-09-23 06:57] LABS: BASO % 0.1 % (0.0-2.0); HEMATOCRIT 30.3 % (34.0-47.0); LYMPH # 0.5 K/uL (1.0-4.3); LYMPH % 4.3 % (20.0-40.0); MEAN CELL VOLUME 96.3 fL (81.0-99.0); MEAN CORPUSCULAR HEMOGLOBIN 30.5 pg (27.0-31.0); MEAN CORPUSCULAR HGB CONC 31.6 g/dL (33.0-37.0); MEAN PLATELET VOLUME 10.6 fL (7.2-11.7); MONO # 0.3 K/uL (0.0-0.8); NRBC % 0.2 % (0.0-2.0); PLATELET COUNT 122 K/uL (130-400); RED CELL DISTRIBUTION WIDTH 17.9 % (11.5-14.5); WHITE BLOOD COUNT 10.8 K/uL (4.8-10.8)
[2016-09-23 07:02] LABS: BILIRUBIN,TOTAL 0.6 mg/dL (0.2-1.3); CALCIUM 8.2 mg/dl (8.6-10.4); MAGNESIUM 1.9 mg/dL (1.6-2.3); PHOSPHOROUS 3.8 mg/dL (2.5-4.5); TOTAL PROTEIN 5.6 g/dL (6.3-8.3)
[2016-09-23 07:08] LABS: ALB/GLOB RATIO 1.2 (1.0-2.1)
[2016-09-23 08:24] LABS: NEUTROPHIL 93 % (50-75); TOTAL CELLS COUNTED 100
--- NOTE | 2016-09-23 10:10 | CP.CCUPN ---
<Carlota Laughlin - Last Filed: 09/23/16 10:01> CCU Subjective - Physician Review Subjective (Free Text): Patient was seen and examined at bedside in the morning. Patient is uncooperative and unable to respond to questions and review of systems. Patient is stable for transfer to the floor. 09/23/16 10:01 CCU Objective - Vital Signs / Intake & Output Vital Signs (Last 4 hours): Vital Signs Temp Pulse Pulse Resp BP BP Pulse Ox 09/23/16 09:29 151/87 H 09/23/16 09:14 151/87 H 09/23/16 08:59 153/87 H 09/23/16 08:44 9805 F H 60 17 151/80 H 91 L 09/23/16 08:42 98.5 F 60 142/87 09/23/16 08:00 98.8 F 61 18 156/73 H 95 09/23/16 07:00 67 23 146/73 95 Intake and Output (Last 8hrs): Intake & Output 09/22/16 09/23/16 09/23/16 22:59 06:59 14:59 Intake Total 500 0 60 Output Total 0 0 0 Balance 500 0 60 Weight 126 lb 12.253 oz Intake: Intake, IV Amount 350 Left Antecubital 350 Oral 150 0 60 Output: Urine 0 0 0 Urine, Voided 0 0 0 Other: # Bowel Movements 1 - Physical Exam Head: Positive for: Atraumatic, Normocephalic Extroacular Muscles: Positive for: EOMI Mouth: Positive for: Moist Mucous Membranes Respiratory/Chest: Positive for: Decreased Breath Sounds. Negative for: Clear to Auscultation, Wheezes, Rhonchi Cardiovascular: Positive for: Normal S1, S2, Irregular Rhythm. Negative for: Tachycardic, Bradycardic Abdomen: Positive for: Normal Bowel Sounds. Negative for: Distention Upper Extremity: Negative for: Edema, Swelling Lower Extremity: Positive for: Edema, Swelling. Negative for: NORMAL PULSES ( diminished) Neurological: Negative for: GCS=15, Speech Normal Skin: Positive for: Warm, Dry, Normal Color Psychiatric: Positive for: Lethargic - Medications Active Medications: Active Medications Generic Name Dose Route Start Last Admin Trade Name Freq PRN Reason Stop Dose Admin Acetaminophen 650 mg 08/16/16 03:42 Tylenol 325mg Tab PO Q6 PRN Fever >100.4 F Artificial Tears 0 ml 08/16/16 14:00 09/22/16 21:13 Artificial Tears OU 1 drop QID JESSI Administration Famotidine 20 mg 09/19/16 10:15 09/22/16 09:48 Pepcid IVP 20 mg DAILY J[facility]I Administration Hydralazine HCl 10 mg 09/22/16 10:00 09/22/16 21:13 Apresoline PO 10 mg QID JESSI Administration Nitroglycerin 1 ea 09/18/16 22:00 09/23/16 04:45 Nitro-Bid 2% Oint TOP 1 ea Q6H J[facility]I Administration - Patient Studies Lab Studies: Lab Studies 09/23/16 09/23/16 09/21/16 Range/Units 06:31 06:31 14:43 WBC 10.8 (4.8-10.8) K/uL RBC 3.15 L (3.80-5.20) Mil/uL Hgb 9.6 L (11.0-16.0) g/dL Hct 30.3 L (34.0-47.0) % MCV 96.3 (81.0-99.0) fL MCH 30.5 (27.0-31.0) pg MCHC 31.6 L (33.0-37.0) g/dL RDW 17.9 H (11.5-14.5) % Plt Count 122 L (130-400) K/uL MPV 10.6 (7.2-11.7) fL Neut % (Auto) 92.6 H (50.0-75.0) % Lymph % (Auto) 4.3 L (20.0-40.0) % [place] % (Auto) 3.0 (0.0-10.0) % Eos % (Auto) 0.0 (0.0-4.0) % Baso % (Auto) 0.1 (0.0-2.0) % Neut # 10.0 H (1.8-7.0) K/uL Lymph # 0.5 L (1.0-4.3) K/uL [place] # 0.3 (0.0-0.8) K/uL Eos # 0.0 (0.0-0.7) K/uL Baso # 0.0 (0.0-0.2) K/uL Neutrophils % (Manual) 93 H (50-75) % Band Neutrophils % 1 (0-2) % Lymphocytes % (Manual) 2 L (20-40) % Monocytes % (Manual) 4 (0-10) % Platelet Estimate Slightly decreased L (NORMAL) Anisocytosis (manual) Slight Haptoglobin 123 (43-212) mg/dL Sodium 139 (132-148) mmol/L Potassium 4.0 (3.6-5.2) mmol/L Chloride 99 (98-107) mmol/L Carbon Dioxide 28 (22-30) mmol/L Anion Gap 16 (10-20) BUN 37 H (7-17) mg/dL Creatinine 3.4 H (0.7-1.2) MG/DL Est GFR ( Amer) 16 Est GFR (Non-Af Amer) 13 Random Glucose 147 H (65-105) mg/dL Calcium 8.2 L (8.6-10.4) mg/dl Phosphorus 3.8 (2.5-4.5) mg/dL Magnesium 1.9 (1.6-2.3) mg/dL Total Bilirubin 0.6 (0.2-1.3) mg/dL AST 34 (14-36) U/L ALT 70 H D (9-52) U/L Alkaline Phosphatase 110 (38-126) U/L Total Protein 5.6 L (6.3-8.3) g/dL Albumin 3.0 L (3.5-5.0) g/dL Globulin 2.6 (2.2-3.9) gm/dL Albumin/Globulin Ratio 1.2 (1.0-2.1) Laboratory Results - last 24 hr 09/21/16 09/23/16 09/23/16 14:43 06:31 06:31 WBC 10.8 RBC 3.15 L Hgb 9.6 L Hct 30.3 L MCV 96.3 MCH 30.5 MCHC 31.6 L RDW 17.9 H Plt Count 122 L MPV 10.6 Neut % (Auto) 92.6 H Lymph % (Auto) 4.3 L [place] % (Auto) 3.0 Eos % (Auto) 0.0 Baso % (Auto) 0.1 Neut # 10.0 H Lymph # 0.5 L [place] # 0.3 Eos # 0.0 Baso # 0.0 Neutrophils % (Manual) 93 H Band Neutrophils % 1 Lymphocytes % (Manual) 2 L Monocytes % (Manual) 4 Platelet Estimate Slightly decreased L Anisocytosis (manual) Slight Haptoglobin 123 Sodium 139 Potassium 4.0 Chloride 99 Carbon Dioxide 28 Anion Gap 16 BUN 37 H Creatinine 3.4 H Est GFR ( Amer) 16 Est GFR (Non-Af Amer) 13 Random Glucose 147 H Calcium 8.2 L Phosphorus 3.8 Magnesium 1.9 Total Bilirubin 0.6 AST 34 ALT 70 H D Alkaline Phosphatase 110 Total Protein 5.6 L Albumin 3.0 L Globulin 2.6 Albumin/Globulin Ratio 1.2 Fingerstick Blood Sugar Results: 134 Review of Systems - Review of Systems Systems not reviewed;Unavailable: Uncooperative Critical Care Progress Note - Nutrition Nutrition: Nutrition Category Date Time Status Consistent Carbohydrate [DIET] Diets 09/22/16 Lunch Active Assessment/Plan (1) Pulmonary edema Assessment and plan: 80-year-old female with past medical history of systolic CHF (EF-10%). 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 Now in recurrent respiratory failure from flash pulmonary edema s/p plasma exchange. In ICU, intubated. Chest xray is improving, pressure support successful and patient was extubated on 09/17/16. Patient received plasma exchange on 09/16 - 09/18 and is scheduled to receive today, 09/18/16. Patient has pulmonary edema secondary to plasmapheresis, received extra dialysis on . Patient is on ventimask. Patient will started Rituximab 09/22/[address] Montanez. Patient is stable for transfer to the floor. Neuro: off sedation--> Alert - Head CT: no intracranial mass, hemorrhage, or acute infarct. 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 Chronic paranasal sinusitis; nonspecific right mastoid effusion Pulm: Acute respiratory failure secondary to pulmonary edema status post plasma exchange, dialyzed to remove fluid. - Episode of pulmonary edema s/p plasma exchange over the weekend. - On ventimask 50% CV: Hemodynamically stable. Hypertensive, the pressure will drop with dialysis. 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 - Discussed plan of care with Dr. Montanez. - Daily plasma exchange - Patient started treatment with Rituximab 09/22/16 Renal: End-stage renal disease now on chronic dialysis - Diaylsis T//Sat - Dialyzed 09/21/16 due to pulm edema secondary to plasmapheresis - Hypokalemia resolved Endo: No acute issues GI: NPO - Pepcid - Elevated Liver enzymes- improving ID: No acute issues. Skin: - Sacral ulcer, stage 2 - Wound care - Apply duoderm DVT proph - heparin subcutaneous GI proph - Pepcid daily PT/OT Cole catheter- monitor I/O Code status - full code Palliative care consulted Current Visit: Yes Status: Acute <Anthony Taveras - Last Filed: 09/23/16 17:27> CCU Objective - Vital Signs / Intake & Output Vital Signs (Last 4 hours): Vital Signs Temp Pulse Resp BP Pulse Ox 09/23/16 16:00 98.2 F 81 17 93 L 09/23/16 15:00 95 H 15 91 L 09/23/16 14:44 91 H 15 133/78 92 L 09/23/16 14:00 81 14 91 L Intake and Output (Last 8hrs): Intake & Output 09/23/16 09/23/16 09/23/16 06:59 14:59 22:59 Intake Total 0 520 0 Output Total 0 3000 0 Balance 0 -2480 0 Weight 126 lb 12.253 oz Intake: Oral 0 520 0 Output: Urine 0 0 0 Urine, Voided 0 0 0 Other 3000 - Medications Active Medications: Active Medications Generic Name Dose Route Start Last Admin Trade Name Freq PRN Reason Stop Dose Admin Acetaminophen 650 mg 08/16/16 03:42 Tylenol 325mg Tab PO Q6 PRN Fever >100.4 F Artificial Tears 0 ml 08/16/16 14:00 09/23/16 14:18 Artificial Tears OU Not Given QID JESSI Famotidine 20 mg 09/19/16 10:15 09/23/16 11:02 Pepcid IVP 20 mg DAILY JESSI Administration Hydralazine HCl 10 mg 09/22/16 10:00 09/23/16 14:17 Apresoline PO Not Given QID JESSI Nitroglycerin 1 ea 09/18/16 22:00 09/23/16 11:01 Nitro-Bid 2% Oint TOP 1 ea Q6H [facility]I Administration - Patient Studies Lab Studies: Lab Studies 09/23/16 09/23/16 09/21/16 Range/Units 06:31 06:31 14:43 WBC 10.8 (4.8-10.8) K/uL RBC 3.15 L (3.80-5.20) Mil/uL Hgb 9.6 L (11.0-16.0) g/dL Hct 30.3 L (34.0-47.0) % MCV 96.3 (81.0-99.0) fL MCH 30.5 (27.0-31.0) pg MCHC 31.6 L (33.0-37.0) g/dL RDW 17.9 H (11.5-14.5) % Plt Count 122 L (130-400) K/uL MPV 10.6 (7.2-11.7) fL Neut % (Auto) 92.6 H (50.0-75.0) % Lymph % (Auto) 4.3 L (20.0-40.0) % [place] % (Auto) 3.0 (0.0-10.0) % Eos % (Auto) 0.0 (0.0-4.0) % Baso % (Auto) 0.1 (0.0-2.0) % Neut # 10.0 H (1.8-7.0) K/uL Lymph # 0.5 L (1.0-4.3) K/uL [place] # 0.3 (0.0-0.8) K/uL Eos # 0.0 (0.0-0.7) K/uL Baso # 0.0 (0.0-0.2) K/uL Neutrophils % (Manual) 93 H (50-75) % Band Neutrophils % 1 (0-2) % Lymphocytes % (Manual) 2 L (20-40) % Monocytes % (Manual) 4 (0-10) % Platelet Estimate Slightly decreased L (NORMAL) Anisocytosis (manual) Slight Haptoglobin 123 (43-212) mg/dL Sodium 139 (132-148) mmol/L Potassium 4.0 (3.6-5.2) mmol/L Chloride 99 (98-107) mmol/L Carbon Dioxide 28 (22-30) mmol/L Anion Gap 16 (10-20) BUN 37 H (7-17) mg/dL Creatinine 3.4 H (0.7-1.2) MG/DL Est GFR ( Amer) 16 Est GFR (Non-Af Amer) 13 Random Glucose 147 H (65-105) mg/dL Calcium 8.2 L (8.6-10.4) mg/dl Phosphorus 3.8 (2.5-4.5) mg/dL Magnesium 1.9 (1.6-2.3) mg/dL Total Bilirubin 0.6 (0.2-1.3) mg/dL AST 34 (14-36) U/L ALT 70 H D (9-52) U/L Alkaline Phosphatase 110 (38-126) U/L Total Protein 5.6 L (6.3-8.3) g/dL Albumin 3.0 L (3.5-5.0) g/dL Globulin 2.6 (2.2-3.9) gm/dL Albumin/Globulin Ratio 1.2 (1.0-2.1) Laboratory Results - last 24 hr 09/21/16 09/23/16 09/23/16 14:43 06:31 06:31 WBC 10.8 RBC 3.15 L Hgb 9.6 L Hct 30.3 L MCV 96.3 MCH 30.5 MCHC 31.6 L RDW 17.9 H Plt Count 122 L MPV 10.6 Neut % (Auto) 92.6 H Lymph % (Auto) 4.3 L [place] % (Auto) 3.0 Eos % (Auto) 0.0 Baso % (Auto) 0.1 Neut # 10.0 H Lymph # 0.5 L [place] # 0.3 Eos # 0.0 Baso # 0.0 Neutrophils % (Manual) 93 H Band Neutrophils % 1 Lymphocytes % (Manual) 2 L Monocytes % (Manual) 4 Platelet Estimate Slightly decreased L Anisocytosis (manual) Slight Haptoglobin 123 Sodium 139 Potassium 4.0 Chloride 99 Carbon Dioxide 28 Anion Gap 16 BUN 37 H Creatinine 3.4 H Est GFR ( Amer) 16 Est GFR (Non-Af Amer) 13 Random Glucose 147 H Calcium 8.2 L Phosphorus 3.8 Magnesium 1.9 Total Bilirubin 0.6 AST 34 ALT 70 H D Alkaline Phosphatase 110 Total Protein 5.6 L Albumin 3.0 L Globulin 2.6 Albumin/Globulin Ratio 1.2 Critical Care Progress Note - Nutrition Nutrition: Nutrition Category Date Time Status Consistent Carbohydrate [DIET] Diets 09/22/16 Lunch Active Attending/Attestation - Attestation I have personally seen and examined this patient.: Yes I have fully participated in the care of the patient.: Yes I have reviewed all pertinent clinical information: Yes Notes (Text): 09/23/16 17:26 Patient seen and examined in the intensive care unit. Case discussed with house staff in the morning. Patient is stable for transfer to floor continue present treatment Hematology follow-up
[2016-09-23] MEDS: Aritificial Tears (15ml) OU SCH ×4 (11:02→22:47)
--- NOTE | 2016-09-23 12:59 | CP.PCM.PN ---
Subjective - Date & Time of Evaluation Date of Evaluation: 09/23/16 Time of Evaluation: 12:57 - Subjective Subjective: seen and examned s/p hd today am, tolerated well on bipap alert, being fed bp stable Objective - Vital Signs/Intake and Output Vital Signs (last 24 hours): Temp Pulse Resp BP Pulse Ox 98.3 F 67 17 151/80 H 96 09/23/16 11:45 09/23/16 11:45 09/23/16 11:45 09/23/16 11:45 09/23/16 11:45 Intake and Output: 09/23/16 09/23/16 06:59 18:59 Intake Total 500 160 Output Total 0 0 Balance 500 160 - Medications Medications: Current Medications Acetaminophen (Tylenol 325mg Tab) 650 mg PO Q6 PRN PRN Reason: Fever >100.4 F Artificial Tears (Artificial Tears) 0 ml OU QID [facility] Last Admin: 09/23/16 11:02 Dose: 2 drop Famotidine (Pepcid) 20 mg IVP DAILY [facility] Last Admin: 09/23/16 11:02 Dose: 20 mg Hydralazine HCl (Apresoline) 10 mg PO QID [facility] Last Admin: 09/23/16 11:05 Dose: 10 mg Nitroglycerin (Nitro-Bid 2% Oint) 1 ea TOP Q6H [facility] Last Admin: 09/23/16 11:01 Dose: 1 ea - Labs Labs: 09/23/16 06:31 09/23/16 06:31 PT 11.9 SECONDS (9.7-12.2) 09/20/16 06:23 INR 1.1 09/20/16 06:23 APTT 28 SECONDS (21-34) 09/20/16 06:23 - Constitutional Appears: Non-toxic, Confused, Chronically Ill - Head Exam Head Exam: NORMAL INSPECTION - Eye Exam Eye Exam: Normal appearance - ENT Exam Additional comments: bipap mask - Neck Exam Neck Exam: Normal Inspection - Respiratory Exam Respiratory Exam: Decreased Breath Sounds, Rhonchi - Cardiovascular Exam Cardiovascular Exam: REGULAR RHYTHM, RRR - GI/Abdominal Exam GI & Abdominal Exam: Distended, Soft - Extremities Exam Extremities Exam: Normal Inspection Assessment and Plan (1) ESRD (end stage renal disease) on dialysis Status: Acute (2) Pulmonary edema Status: Acute (3) Hypertension Status: Acute (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
--- NOTE | 2016-09-23 14:12 | RAD ---
HISTORY: Pulmonary edema COMPARISON: Chest x-ray performed 09/21/16 TECHNIQUE: Chest, one view. FINDINGS: Numerous external wires and, leads, an devices obscure evaluation of the underlying parenchyma. Left-sided dialysis catheter with distal tips extending to the SVC. LUNGS: Mild pulmonary venous congestion. Small bilateral pleural effusions. No definite pneumothorax. Please note that chest x-ray has limited sensitivity for the detection of pulmonary masses. CARDIOVASCULAR: Heart size appears top normal. OSSEOUS STRUCTURES: Degenerative changes. VISUALIZED UPPER ABDOMEN: Unremarkable. OTHER FINDINGS: None. IMPRESSION: Mild pulmonary venous congestion. Small bilateral pleural effusions. Left-sided dialysis catheter with distal tips extending to the SVC.
--- NOTE | 2016-09-23 16:41 | CP.PCM.PN ---
Subjective - Date & Time of Evaluation Date of Evaluation: 09/23/16 Time of Evaluation: 13:20 - Subjective Subjective: clinically same Objective - Vital Signs/Intake and Output Vital Signs (last 24 hours): Temp Pulse Resp BP Pulse Ox 98.2 F 81 17 133/78 93 L 09/23/16 16:00 09/23/16 16:00 09/23/16 16:00 09/23/16 14:44 09/23/16 16:00 Intake and Output: 09/23/16 09/23/16 06:59 18:59 Intake Total 500 520 Output Total 0 3000 Balance 500 -2480 - Medications Medications: Current Medications Acetaminophen (Tylenol 325mg Tab) 650 mg PO Q6 PRN PRN Reason: Fever >100.4 F Artificial Tears (Artificial Tears) 0 ml OU QID [facility] Last Admin: 09/23/16 14:18 Dose: Not Given Famotidine (Pepcid) 20 mg IVP DAILY [facility] Last Admin: 09/23/16 11:02 Dose: 20 mg Hydralazine HCl (Apresoline) 10 mg PO QID [facility] Last Admin: 09/23/16 14:17 Dose: Not Given Nitroglycerin (Nitro-Bid 2% Oint) 1 ea TOP Q6H [facility] Last Admin: 09/23/16 11:01 Dose: 1 ea - Labs Labs: 09/23/16 06:31 09/23/16 06:31 PT 11.9 SECONDS (9.7-12.2) 09/20/16 06:23 INR 1.1 09/20/16 06:23 APTT 28 SECONDS (21-34) 09/20/16 06:23 - Constitutional Appears: Well - Head Exam Head Exam: ATRAUMATIC, NORMAL INSPECTION, NORMOCEPHALIC - Eye Exam Eye Exam: EOMI, Normal appearance, PERRL Pupil Exam: NORMAL ACCOMODATION, PERRL - ENT Exam ENT Exam: Mucous Membranes Moist, Normal Exam - Neck Exam Neck Exam: Full ROM, Normal Inspection. absent: Lymphadenopathy - Respiratory Exam Respiratory Exam: Decreased Breath Sounds - Cardiovascular Exam Cardiovascular Exam: REGULAR RHYTHM, +S1, +S2 - GI/Abdominal Exam GI & Abdominal Exam: Soft, Diminished Bowel Sounds - Rectal Exam Rectal Exam: Deferred Assessment and Plan (1) Cardiac dysrhythmia Status: Acute (2) ESRD (end stage renal disease) on dialysis Status: Acute (3) Pulmonary edema Status: Acute (4) MARCO (acute kidney injury) Status: Acute (5) Acute respiratory failure requiring reintubation Status: Acute (6) Arthritis Status: Acute (7) CHF (congestive heart failure) Status: Acute (8) Dehydration Status: Acute (9) Dehydration Status: Acute (10) Diverticulosis Status: Acute (11) Elevated CEA Status: Acute (12) Hypertension Status: Acute (13) Inguinal lymphadenopathy Status: Acute (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
--- NOTE | 2016-09-24 02:04 | CP.PCM.PN ---
Subjective - Date & Time of Evaluation Date of Evaluation: 09/22/16 Time of Evaluation: 20:00 - Subjective Subjective: Tolerated 1st Rituximab infusion well. Objective - Vital Signs/Intake and Output Vital Signs (last 24 hours): Temp Pulse Resp BP Pulse Ox 98.7 F 82 20 132/73 98 09/24/16 00:00 09/24/16 01:00 09/24/16 01:00 09/24/16 00:44 09/24/16 01:00 Intake and Output: 09/23/16 09/24/16 18:59 06:59 Intake Total 720 160 Output Total 3000 0 Balance -2280 160 - Medications Medications: Current Medications Acetaminophen (Tylenol 325mg Tab) 650 mg PO Q6 PRN PRN Reason: Fever >100.4 F Artificial Tears (Artificial Tears) 0 ml OU QID [facility] Last Admin: 09/23/16 22:47 Dose: 1 drop Famotidine (Pepcid) 20 mg IVP DAILY [facility] Last Admin: 09/23/16 11:02 Dose: 20 mg Hydralazine HCl (Apresoline) 10 mg PO QID [facility] Last Admin: 09/23/16 22:46 Dose: 10 mg Nitroglycerin (Nitro-Bid 2% Oint) 1 ea TOP Q6H [facility] Last Admin: 09/23/16 22:47 Dose: 1 ea - Labs Labs: 09/23/16 06:31 09/23/16 06:31 PT 11.9 SECONDS (9.7-12.2) 09/20/16 06:23 INR 1.1 09/20/16 06:23 APTT 28 SECONDS (21-34) 09/20/16 06:23 - Head Exam Head Exam: ATRAUMATIC - Eye Exam Eye Exam: Normal appearance - ENT Exam ENT Exam: Mucous Membranes Dry - Respiratory Exam Respiratory Exam: NORMAL BREATHING PATTERN - Cardiovascular Exam Cardiovascular Exam: +S1, +S2 - GI/Abdominal Exam GI & Abdominal Exam: Normal Bowel Sounds - Extremities Exam Extremities Exam: Pedal Edema Assessment and Plan (1) TTP (thrombotic thrombocytopenic purpura) Assessment & Plan: relapsed s/p plasma exchange Rituximab given today Status: Acute
--- NOTE | 2016-09-24 02:06 | CP.PCM.PN ---
Subjective - Date & Time of Evaluation Date of Evaluation: 09/23/16 Time of Evaluation: 15:00 - Subjective Subjective: Comfortable, family at bedside Objective - Vital Signs/Intake and Output Vital Signs (last 24 hours): Temp Pulse Resp BP Pulse Ox 98.7 F 82 20 132/73 98 09/24/16 00:00 09/24/16 01:00 09/24/16 01:00 09/24/16 00:44 09/24/16 01:00 Intake and Output: 09/23/16 09/24/16 18:59 06:59 Intake Total 720 160 Output Total 3000 0 Balance -2280 160 - Medications Medications: Current Medications Acetaminophen (Tylenol 325mg Tab) 650 mg PO Q6 PRN PRN Reason: Fever >100.4 F Artificial Tears (Artificial Tears) 0 ml OU QID [facility] Last Admin: 09/23/16 22:47 Dose: 1 drop Famotidine (Pepcid) 20 mg IVP DAILY [facility] Last Admin: 09/23/16 11:02 Dose: 20 mg Hydralazine HCl (Apresoline) 10 mg PO QID [facility] Last Admin: 09/23/16 22:46 Dose: 10 mg Nitroglycerin (Nitro-Bid 2% Oint) 1 ea TOP Q6H [facility] Last Admin: 09/23/16 22:47 Dose: 1 ea - Labs Labs: 09/23/16 06:31 09/23/16 06:31 PT 11.9 SECONDS (9.7-12.2) 09/20/16 06:23 INR 1.1 09/20/16 06:23 APTT 28 SECONDS (21-34) 09/20/16 06:23 - Head Exam Head Exam: ATRAUMATIC - Eye Exam Eye Exam: Normal appearance - ENT Exam ENT Exam: Mucous Membranes Dry - Respiratory Exam Respiratory Exam: NORMAL BREATHING PATTERN - Cardiovascular Exam Cardiovascular Exam: +S1, +S2 - GI/Abdominal Exam GI & Abdominal Exam: Normal Bowel Sounds - Extremities Exam Extremities Exam: Pedal Edema Assessment and Plan (1) TTP (thrombotic thrombocytopenic purpura) Assessment & Plan: relapsed s/p plasma exchange Rituximab given 09/22 Status: Acute
[2016-09-24] MEDS: Nitroglycerin 2% Ointment Foilpak UD TOP SCH ×4 (03:32→21:29)
[2016-09-24 07:01] LABS: BASO % 0.2 % (0.0-2.0); EOS # 0.1 K/uL (0.0-0.7); EOS % 0.7 % (0.0-4.0); HEMATOCRIT 30.2 % (34.0-47.0); LYMPH # 0.6 K/uL (1.0-4.3); LYMPH % 3.4 % (20.0-40.0); MEAN CELL VOLUME 95.3 fL (81.0-99.0); MEAN CORPUSCULAR HEMOGLOBIN 29.7 pg (27.0-31.0); MEAN CORPUSCULAR HGB CONC 31.1 g/dL (33.0-37.0); MEAN PLATELET VOLUME 10.3 fL (7.2-11.7); MONO # 0.6 K/uL (0.0-0.8); MONO % 3.4 % (0.0-10.0); PLATELET COUNT 107 K/uL (130-400); RED CELL DISTRIBUTION WIDTH 18.4 % (11.5-14.5); WHITE BLOOD COUNT 17.4 K/uL (4.8-10.8)
[2016-09-24 07:06] LABS: POTASSIUM 3.7 mmol/L (3.6-5.2)
[2016-09-24 07:08] LABS: BILIRUBIN,TOTAL 0.7 mg/dL (0.2-1.3)
[2016-09-24 07:09] LABS: MAGNESIUM 1.7 mg/dL (1.6-2.3); PHOSPHOROUS 2.8 mg/dL (2.5-4.5); TOTAL PROTEIN 5.8 g/dL (6.3-8.3)
--- NOTE | 2016-09-24 08:18 | CP.PCM.PN ---
Subjective - Date & Time of Evaluation Date of Evaluation: 09/24/16 Time of Evaluation: 08:15 - Subjective Subjective: s/p dialysis 09/23 s/p rituxamab infusion remains anuric lethargic- not verbalizing Objective - Vital Signs/Intake and Output Vital Signs (last 24 hours): Temp Pulse Resp BP Pulse Ox 98.9 F 95 H 14 137/88 90 L 09/24/16 04:00 09/24/16 07:00 09/24/16 07:00 09/24/16 06:44 09/24/16 07:00 Intake and Output: 09/24/16 09/24/16 06:59 18:59 Intake Total 160 Output Total 200 0 Balance -40 0 - Medications Medications: Current Medications Acetaminophen (Tylenol 325mg Tab) 650 mg PO Q6 PRN PRN Reason: Fever >100.4 F Artificial Tears (Artificial Tears) 0 ml OU QID [facility] Last Admin: 09/23/16 22:47 Dose: 1 drop Famotidine (Pepcid) 20 mg IVP DAILY [facility] Last Admin: 09/23/16 11:02 Dose: 20 mg Hydralazine HCl (Apresoline) 10 mg PO QID [facility] Last Admin: 09/23/16 22:46 Dose: 10 mg Nitroglycerin (Nitro-Bid 2% Oint) 1 ea TOP Q6H [facility] Last Admin: 09/24/16 03:32 Dose: 1 ea - Labs Labs: 09/24/16 06:40 09/24/16 06:40 PT 11.9 SECONDS (9.7-12.2) 09/20/16 06:23 INR 1.1 09/20/16 06:23 APTT 28 SECONDS (21-34) 09/20/16 06:23 - Constitutional Appears: Confused, Chronically Ill - Head Exam Head Exam: ATRAUMATIC, NORMAL INSPECTION - Eye Exam Eye Exam: EOMI, Normal appearance - Neck Exam Neck Exam: Normal Inspection. absent: Tenderness - Respiratory Exam Respiratory Exam: Clear to Ausculation Bilateral, NORMAL BREATHING PATTERN - Cardiovascular Exam Cardiovascular Exam: REGULAR RHYTHM, +S1 - GI/Abdominal Exam GI & Abdominal Exam: Soft. absent: Tenderness - Extremities Exam Extremities Exam: Normal Inspection. absent: Tenderness - Neurological Exam Neurological Exam: Altered, CN II-XII Intact - Skin Skin Exam: Dry, Warm Assessment and Plan (1) MARCO (acute kidney injury) Status: Acute (2) CHF (congestive heart failure) Status: Acute (3) TTP (thrombotic thrombocytopenic purpura) Status: Acute - Assessment and Plan (Free Text) Plan: Dialysis TTS Immunosuppressants as per heme Monitor christian BRYAN plats
[2016-09-24 08:59] LABS: NEUTROPHIL 96 % (50-75); TOTAL CELLS COUNTED 100
[2016-09-24] MEDS: Aritificial Tears (15ml) OU SCH ×4 (09:10→21:28)
--- NOTE | 2016-09-24 13:21 | CP.PCM.PN ---
Subjective - Date & Time of Evaluation Date of Evaluation: 09/24/16 Time of Evaluation: 13:00 - Subjective Subjective: Appears comfortable Objective - Vital Signs/Intake and Output Vital Signs (last 24 hours): Temp Pulse Resp BP Pulse Ox 98.9 F 97 H 14 137/88 90 L 09/24/16 04:00 09/24/16 08:00 09/24/16 07:00 09/24/16 06:44 09/24/16 07:00 Intake and Output: 09/24/16 09/24/16 06:59 18:59 Intake Total 160 Output Total 200 0 Balance -40 0 - Medications Medications: Current Medications Acetaminophen (Tylenol 325mg Tab) 650 mg PO Q6 PRN PRN Reason: Fever >100.4 F Artificial Tears (Artificial Tears) 0 ml OU QID [facility] Last Admin: 09/24/16 09:10 Dose: 1 drop Famotidine (Pepcid) 20 mg IVP DAILY [facility] Last Admin: 09/24/16 09:10 Dose: 20 mg Hydralazine HCl (Apresoline) 10 mg PO QID [facility] Last Admin: 09/24/16 09:10 Dose: 10 mg Nitroglycerin (Nitro-Bid 2% Oint) 1 ea TOP Q6H [facility] Last Admin: 09/24/16 09:10 Dose: 1 ea - Labs Labs: 09/24/16 06:40 09/24/16 06:40 PT 11.9 SECONDS (9.7-12.2) 09/20/16 06:23 INR 1.1 09/20/16 06:23 APTT 28 SECONDS (21-34) 09/20/16 06:23 - Head Exam Head Exam: ATRAUMATIC - Eye Exam Eye Exam: Normal appearance - ENT Exam ENT Exam: Mucous Membranes Dry - Respiratory Exam Respiratory Exam: NORMAL BREATHING PATTERN - Cardiovascular Exam Cardiovascular Exam: +S1, +S2 - GI/Abdominal Exam GI & Abdominal Exam: Normal Bowel Sounds - Extremities Exam Extremities Exam: Pedal Edema Assessment and Plan (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
--- NOTE | 2016-09-24 18:06 | CP.PCM.PN ---
Subjective - Date & Time of Evaluation Date of Evaluation: 09/24/16 Time of Evaluation: 13:40 - Subjective Subjective: clinically same Objective - Vital Signs/Intake and Output Vital Signs (last 24 hours): Temp Pulse Resp BP Pulse Ox 98.9 F 97 H 14 137/88 90 L 09/24/16 04:00 09/24/16 08:00 09/24/16 07:00 09/24/16 06:44 09/24/16 07:00 Intake and Output: 09/24/16 09/24/16 06:59 18:59 Intake Total 160 Output Total 200 0 Balance -40 0 - Medications Medications: Current Medications Acetaminophen (Tylenol 325mg Tab) 650 mg PO Q6 PRN PRN Reason: Fever >100.4 F Artificial Tears (Artificial Tears) 0 ml OU QID [facility] Last Admin: 09/24/16 17:28 Dose: 1 drop Famotidine (Pepcid) 20 mg IVP DAILY [facility] Last Admin: 09/24/16 09:10 Dose: 20 mg Hydralazine HCl (Apresoline) 10 mg PO QID [facility] Last Admin: 09/24/16 17:27 Dose: 10 mg Nitroglycerin (Nitro-Bid 2% Oint) 1 ea TOP Q6H [facility] Last Admin: 09/24/16 17:27 Dose: 1 ea - Labs Labs: 09/24/16 06:40 09/24/16 06:40 PT 11.9 SECONDS (9.7-12.2) 09/20/16 06:23 INR 1.1 09/20/16 06:23 APTT 28 SECONDS (21-34) 09/20/16 06:23 - Constitutional Appears: Well - Head Exam Head Exam: ATRAUMATIC, NORMAL INSPECTION, NORMOCEPHALIC - Eye Exam Eye Exam: EOMI, Normal appearance, PERRL Pupil Exam: NORMAL ACCOMODATION, PERRL - ENT Exam ENT Exam: Mucous Membranes Moist, Normal Exam - Neck Exam Neck Exam: Full ROM, Normal Inspection. absent: Lymphadenopathy - Respiratory Exam Respiratory Exam: Decreased Breath Sounds - Cardiovascular Exam Cardiovascular Exam: REGULAR RHYTHM, +S1, +S2 - GI/Abdominal Exam GI & Abdominal Exam: Soft, Diminished Bowel Sounds - Rectal Exam Rectal Exam: Deferred Assessment and Plan (1) Cardiac dysrhythmia Status: Acute (2) ESRD (end stage renal disease) on dialysis Status: Acute (3) Pulmonary edema Status: Acute (4) MARCO (acute kidney injury) Status: Acute (5) Acute respiratory failure requiring reintubation Status: Acute (6) Arthritis Status: Acute (7) CHF (congestive heart failure) Status: Acute (8) Dehydration Status: Acute (9) Dehydration Status: Acute (10) Diverticulosis Status: Acute (11) Elevated CEA Status: Acute (12) Hypertension Status: Acute (13) Inguinal lymphadenopathy Status: Acute (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
[2016-09-25] MEDS: Nitroglycerin 2% Ointment Foilpak UD TOP SCH ×4 (04:14→21:44)
[2016-09-25] MEDS: Aritificial Tears (15ml) OU SCH ×4 (10:00→21:44)
--- NOTE | 2016-09-25 11:09 | CP.PCM.PN ---
Subjective - Date & Time of Evaluation Date of Evaluation: 09/25/16 Time of Evaluation: 11:08 - Subjective Subjective: seen and examined notes reviewed non verbal, bp stable undrgoing hd Objective - Vital Signs/Intake and Output Vital Signs (last 24 hours): Temp Pulse Resp BP Pulse Ox 98.8 F 84 19 143/86 96 09/25/16 09:25 09/25/16 09:25 09/25/16 09:25 09/25/16 10:25 09/25/16 09:25 Intake and Output: 09/25/16 09/25/16 06:59 18:59 Intake Total 120 Balance 120 - Medications Medications: Current Medications Acetaminophen (Tylenol 325mg Tab) 650 mg PO Q6 PRN PRN Reason: Fever >100.4 F Artificial Tears (Artificial Tears) 0 ml OU QID [facility] Last Admin: 09/24/16 21:28 Dose: 1 drop Famotidine (Pepcid) 20 mg IVP DAILY [facility] Last Admin: 09/24/16 09:10 Dose: 20 mg Hydralazine HCl (Apresoline) 10 mg PO QID [facility] Last Admin: 09/24/16 21:29 Dose: 10 mg Nitroglycerin (Nitro-Bid 2% Oint) 1 ea TOP Q6H [facility] Last Admin: 09/25/16 04:14 Dose: 1 ea - Labs Labs: 09/24/16 06:40 09/24/16 06:40 PT 11.9 SECONDS (9.7-12.2) 09/20/16 06:23 INR 1.1 09/20/16 06:23 APTT 28 SECONDS (21-34) 09/20/16 06:23 - Constitutional Appears: No Acute Distress, Cachectic, Chronically Ill - Head Exam Head Exam: NORMAL INSPECTION - Eye Exam Eye Exam: Normal appearance - ENT Exam ENT Exam: Mucous Membranes Moist, Normal Exam - Neck Exam Neck Exam: Normal Inspection - Respiratory Exam Respiratory Exam: Decreased Breath Sounds (bases), NORMAL BREATHING PATTERN - Cardiovascular Exam Cardiovascular Exam: RRR - GI/Abdominal Exam GI & Abdominal Exam: Distended, Soft - Extremities Exam Extremities Exam: Normal Inspection Assessment and Plan (1) ESRD (end stage renal disease) on dialysis Status: Acute (2) Pulmonary edema Status: Acute (3) Hypertension Status: Acute (4) TTP (thrombotic thrombocytopenic purpura) Status: Acute - Assessment and Plan (Free Text) Assessment: maintain hd tts rituximab per heme blood transfusion as needed
--- NOTE | 2016-09-25 16:37 | CP.PCM.PN ---
Subjective - Date & Time of Evaluation Date of Evaluation: 09/25/16 Time of Evaluation: 10:00 - Subjective Subjective: clinically same Objective - Vital Signs/Intake and Output Vital Signs (last 24 hours): Temp Pulse Resp BP Pulse Ox 98.1 F 105 H 15 120/87 96 09/25/16 12:25 09/25/16 12:25 09/25/16 12:25 09/25/16 12:25 09/25/16 12:25 Intake and Output: 09/25/16 09/25/16 06:59 18:59 Intake Total 120 Balance 120 - Medications Medications: Current Medications Acetaminophen (Tylenol 325mg Tab) 650 mg PO Q6 PRN PRN Reason: Fever >100.4 F Artificial Tears (Artificial Tears) 0 ml OU QID [facility] Last Admin: 09/25/16 10:00 Dose: 1 drop Famotidine (Pepcid) 20 mg IVP DAILY [facility] Last Admin: 09/25/16 12:00 Dose: 20 mg Hydralazine HCl (Apresoline) 10 mg PO QID [facility] Last Admin: 09/25/16 15:00 Dose: 10 mg Nitroglycerin (Nitro-Bid 2% Oint) 1 ea TOP Q6H [facility] Last Admin: 09/25/16 10:00 Dose: Not Given - Labs Labs: 09/24/16 06:40 09/24/16 06:40 PT 11.9 SECONDS (9.7-12.2) 09/20/16 06:23 INR 1.1 09/20/16 06:23 APTT 28 SECONDS (21-34) 09/20/16 06:23 - Constitutional Appears: Well - Head Exam Head Exam: ATRAUMATIC, NORMAL INSPECTION, NORMOCEPHALIC - Eye Exam Eye Exam: EOMI, Normal appearance, PERRL Pupil Exam: NORMAL ACCOMODATION, PERRL - ENT Exam ENT Exam: Mucous Membranes Moist, Normal Exam - Neck Exam Neck Exam: Full ROM, Normal Inspection. absent: Lymphadenopathy - Respiratory Exam Respiratory Exam: Decreased Breath Sounds - Cardiovascular Exam Cardiovascular Exam: REGULAR RHYTHM, +S1, +S2 - GI/Abdominal Exam GI & Abdominal Exam: Soft, Diminished Bowel Sounds - Rectal Exam Rectal Exam: Deferred Assessment and Plan (1) Cardiac dysrhythmia Status: Acute (2) ESRD (end stage renal disease) on dialysis Status: Acute (3) Pulmonary edema Status: Acute (4) MARCO (acute kidney injury) Status: Acute (5) Acute respiratory failure requiring reintubation Status: Acute (6) Arthritis Status: Acute (7) CHF (congestive heart failure) Status: Acute (8) Dehydration Status: Acute (9) Dehydration Status: Acute (10) Diverticulosis Status: Acute (11) Elevated CEA Status: Acute (12) Hypertension Status: Acute (13) Inguinal lymphadenopathy Status: Acute (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
--- NOTE | 2016-09-25 21:30 | CP.PCM.PN ---
Subjective - Date & Time of Evaluation Date of Evaluation: 09/25/16 Time of Evaluation: 17:00 - Subjective Subjective: Appears comfortable Objective - Vital Signs/Intake and Output Vital Signs (last 24 hours): Temp Pulse Resp BP Pulse Ox 98 F 89 18 135/84 96 09/25/16 16:00 09/25/16 18:00 09/25/16 16:00 09/25/16 16:00 09/25/16 16:00 - Medications Medications: Current Medications Acetaminophen (Tylenol 325mg Tab) 650 mg PO Q6 PRN PRN Reason: Fever >100.4 F Artificial Tears (Artificial Tears) 0 ml OU QID [facility] Last Admin: 09/25/16 17:49 Dose: 1 drop Famotidine (Pepcid) 20 mg IVP DAILY [facility] Last Admin: 09/25/16 12:00 Dose: 20 mg Hydralazine HCl (Apresoline) 10 mg PO QID [facility] Last Admin: 09/25/16 17:49 Dose: 10 mg Nitroglycerin (Nitro-Bid 2% Oint) 1 ea TOP Q6H [facility] Last Admin: 09/25/16 16:00 Dose: 1 ea - Labs Labs: 09/24/16 06:40 09/24/16 06:40 PT 11.9 SECONDS (9.7-12.2) 09/20/16 06:23 INR 1.1 09/20/16 06:23 APTT 28 SECONDS (21-34) 09/20/16 06:23 - Head Exam Head Exam: ATRAUMATIC - Eye Exam Eye Exam: Normal appearance - ENT Exam ENT Exam: Mucous Membranes Dry - Respiratory Exam Respiratory Exam: NORMAL BREATHING PATTERN - Cardiovascular Exam Cardiovascular Exam: +S1, +S2 - GI/Abdominal Exam GI & Abdominal Exam: Normal Bowel Sounds - Extremities Exam Extremities Exam: Pedal Edema Assessment and Plan (1) TTP (thrombotic thrombocytopenic purpura) Assessment & Plan: refractory to plasma exchange Rituximab dosed Thursday transfusion support PRN Status: Acute
[2016-09-26] MEDS: Nitroglycerin 2% Ointment Foilpak UD TOP SCH ×4 (04:00→21:28)
--- NOTE | 2016-09-26 09:23 | CP.PCM.PN ---
Subjective - Date & Time of Evaluation Date of Evaluation: 09/26/16 Time of Evaluation: 09:22 - Subjective Subjective: non verbal. no events hd yesterday Objective - Vital Signs/Intake and Output Vital Signs (last 24 hours): Temp Pulse Resp BP Pulse Ox 98.1 F 81 18 125/72 99 09/26/16 07:30 09/26/16 04:00 09/26/16 04:00 09/26/16 04:00 09/26/16 00:00 Intake and Output: 09/26/16 09/26/16 06:59 18:59 Intake Total 100 Output Total 100 Balance 0 - Medications Medications: Current Medications Acetaminophen (Tylenol 325mg Tab) 650 mg PO Q6 PRN PRN Reason: Fever >100.4 F Artificial Tears (Artificial Tears) 0 ml OU QID [facility] Last Admin: 09/25/16 21:44 Dose: 1 drop Famotidine (Pepcid) 20 mg IVP DAILY [facility] Last Admin: 09/25/16 12:00 Dose: 20 mg Hydralazine HCl (Apresoline) 10 mg PO QID [facility] Last Admin: 09/25/16 21:43 Dose: 10 mg Nitroglycerin (Nitro-Bid 2% Oint) 1 ea TOP Q6H [facility] Last Admin: 09/26/16 04:00 Dose: Not Given - Labs Labs: 09/24/16 06:40 09/24/16 06:40 PT 11.9 SECONDS (9.7-12.2) 09/20/16 06:23 INR 1.1 09/20/16 06:23 APTT 28 SECONDS (21-34) 09/20/16 06:23 - Constitutional Appears: No Acute Distress, Cachectic, Chronically Ill - Head Exam Head Exam: NORMAL INSPECTION - Eye Exam Eye Exam: Normal appearance - ENT Exam ENT Exam: Mucous Membranes Dry, Normal Exam - Neck Exam Neck Exam: Normal Inspection - Respiratory Exam Respiratory Exam: Clear to Ausculation Bilateral, NORMAL BREATHING PATTERN - Cardiovascular Exam Cardiovascular Exam: REGULAR RHYTHM, RRR (permcath) - GI/Abdominal Exam GI & Abdominal Exam: Soft, Diminished Bowel Sounds - Extremities Exam Extremities Exam: Normal Inspection Assessment and Plan (1) ESRD (end stage renal disease) on dialysis Status: Acute (2) Pulmonary edema Status: Acute (3) Hypertension Status: Acute (4) TTP (thrombotic thrombocytopenic purpura) Status: Acute - Assessment and Plan (Free Text) Assessment: maintain hd tts rituximab per heme blood transfusion as needed Dr Lockhart will resume care tomorrow
[2016-09-26] MEDS: Aritificial Tears (15ml) OU SCH ×4 (10:01→21:27)
--- NOTE | 2016-09-26 19:07 | CP.PCM.PN ---
Subjective - Date & Time of Evaluation Date of Evaluation: 09/26/16 Time of Evaluation: 12:20 - Subjective Subjective: clinically same Objective - Vital Signs/Intake and Output Vital Signs (last 24 hours): Temp Pulse Resp BP Pulse Ox 98.1 F 81 18 125/72 99 09/26/16 16:00 09/26/16 04:00 09/26/16 04:00 09/26/16 04:00 09/26/16 00:00 - Medications Medications: Current Medications Acetaminophen (Tylenol 325mg Tab) 650 mg PO Q6 PRN PRN Reason: Fever >100.4 F Artificial Tears (Artificial Tears) 0 ml OU QID [facility] Last Admin: 09/26/16 17:02 Dose: 1 drop Famotidine (Pepcid) 20 mg IVP DAILY [facility] Last Admin: 09/26/16 10:01 Dose: 20 mg Hydralazine HCl (Apresoline) 10 mg PO QID [facility] Last Admin: 09/26/16 17:01 Dose: 10 mg Nitroglycerin (Nitro-Bid 2% Oint) 1 ea TOP Q6H [facility] Last Admin: 09/26/16 16:00 Dose: Not Given - Labs Labs: 09/24/16 06:40 09/24/16 06:40 PT 11.9 SECONDS (9.7-12.2) 09/20/16 06:23 INR 1.1 09/20/16 06:23 APTT 28 SECONDS (21-34) 09/20/16 06:23 - Constitutional Appears: Well - Head Exam Head Exam: ATRAUMATIC, NORMAL INSPECTION, NORMOCEPHALIC - Eye Exam Eye Exam: EOMI, Normal appearance, PERRL Pupil Exam: NORMAL ACCOMODATION, PERRL - ENT Exam ENT Exam: Mucous Membranes Moist, Normal Exam - Neck Exam Neck Exam: Full ROM, Normal Inspection. absent: Lymphadenopathy - Respiratory Exam Respiratory Exam: Decreased Breath Sounds - Cardiovascular Exam Cardiovascular Exam: REGULAR RHYTHM, +S1, +S2 - GI/Abdominal Exam GI & Abdominal Exam: Soft, Diminished Bowel Sounds - Rectal Exam Rectal Exam: Deferred Assessment and Plan (1) Cardiac dysrhythmia Status: Acute (2) ESRD (end stage renal disease) on dialysis Status: Acute (3) Pulmonary edema Status: Acute (4) MARCO (acute kidney injury) Status: Acute (5) Acute respiratory failure requiring reintubation Status: Acute (6) Arthritis Status: Acute (7) CHF (congestive heart failure) Status: Acute (8) Dehydration Status: Acute (9) Dehydration Status: Acute (10) Diverticulosis Status: Acute (11) Elevated CEA Status: Acute (12) Hypertension Status: Acute (13) Inguinal lymphadenopathy Status: Acute (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
[2016-09-27] MEDS: Nitroglycerin 2% Ointment Foilpak UD TOP SCH ×4 (02:00→22:26)
[2016-09-27] MEDS: Aritificial Tears (15ml) OU SCH (10:48)
--- NOTE | 2016-09-27 14:43 | CP.PCM.PN ---
Subjective - Date & Time of Evaluation Date of Evaluation: 09/27/16 Time of Evaluation: 10:00 - Subjective Subjective: clinically same Objective - Vital Signs/Intake and Output Vital Signs (last 24 hours): Temp Pulse Resp BP Pulse Ox 97.8 F 82 16 111/77 97 09/27/16 11:15 09/27/16 11:10 09/27/16 11:15 09/27/16 13:45 09/27/16 11:15 Intake and Output: 09/27/16 09/27/16 06:59 18:59 Intake Total 50 Balance 50 - Medications Medications: Current Medications Famotidine (Pepcid) 20 mg IVP DAILY [facility] Last Admin: 09/27/16 10:47 Dose: 20 mg Hydralazine HCl (Apresoline) 10 mg PO QID [facility] Last Admin: 09/27/16 10:48 Dose: Not Given Nitroglycerin (Nitro-Bid 2% Oint) 1 ea TOP Q6H [facility] Last Admin: 09/27/16 02:00 Dose: Not Given - Labs Labs: 09/24/16 06:40 09/24/16 06:40 PT 11.9 SECONDS (9.7-12.2) 09/20/16 06:23 INR 1.1 09/20/16 06:23 APTT 28 SECONDS (21-34) 09/20/16 06:23 - Constitutional Appears: Well - Head Exam Head Exam: ATRAUMATIC, NORMAL INSPECTION, NORMOCEPHALIC - Eye Exam Eye Exam: EOMI, Normal appearance, PERRL Pupil Exam: NORMAL ACCOMODATION, PERRL - ENT Exam ENT Exam: Mucous Membranes Moist, Normal Exam - Neck Exam Neck Exam: Full ROM, Normal Inspection. absent: Lymphadenopathy - Respiratory Exam Respiratory Exam: Decreased Breath Sounds - Cardiovascular Exam Cardiovascular Exam: REGULAR RHYTHM, +S1, +S2 - GI/Abdominal Exam GI & Abdominal Exam: Soft, Diminished Bowel Sounds - Rectal Exam Rectal Exam: Deferred Assessment and Plan (1) Cardiac dysrhythmia Status: Acute (2) ESRD (end stage renal disease) on dialysis Status: Acute (3) Pulmonary edema Status: Acute (4) MARCO (acute kidney injury) Status: Acute (5) Acute respiratory failure requiring reintubation Status: Acute (6) Arthritis Status: Acute (7) CHF (congestive heart failure) Status: Acute (8) Dehydration Status: Acute (9) Dehydration Status: Acute (10) Diverticulosis Status: Acute (11) Elevated CEA Status: Acute (12) Hypertension Status: Acute (13) Inguinal lymphadenopathy Status: Acute (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
--- NOTE | 2016-09-27 16:31 | CP.PCM.PN ---
Subjective - Date & Time of Evaluation Date of Evaluation: 09/27/16 Time of Evaluation: 16:30 - Subjective Subjective: pt is seen and examined, follow up consult is dictated #[id number] stable hd tx Objective - Vital Signs/Intake and Output Vital Signs (last 24 hours): Temp Pulse Resp BP Pulse Ox 98.1 F 96 H 16 99/62 L 97 09/27/16 14:15 09/27/16 14:15 09/27/16 14:15 09/27/16 14:50 09/27/16 14:15 Intake and Output: 09/27/16 09/27/16 06:59 18:59 Intake Total 50 Balance 50 - Medications Medications: Current Medications Famotidine (Pepcid) 20 mg IVP DAILY [facility] Last Admin: 09/27/16 10:47 Dose: 20 mg Hydralazine HCl (Apresoline) 10 mg PO QID [facility] Last Admin: 09/27/16 14:50 Dose: Not Given Nitroglycerin (Nitro-Bid 2% Oint) 1 ea TOP Q6H [facility] Last Admin: 09/27/16 10:15 Dose: 1 ea - Labs Labs: 09/24/16 06:40 09/24/16 06:40 PT 11.9 SECONDS (9.7-12.2) 09/20/16 06:23 INR 1.1 09/20/16 06:23 APTT 28 SECONDS (21-34) 09/20/16 06:23
--- NOTE | 2016-09-27 21:38 | CP.PCM.PN ---
Subjective - Date & Time of Evaluation Date of Evaluation: 09/27/16 Time of Evaluation: 18:00 - Subjective Subjective: Appears comfortable Objective - Vital Signs/Intake and Output Vital Signs (last 24 hours): Temp Pulse Resp BP Pulse Ox 98 F 97 H 20 91/53 L 99 09/27/16 15:00 09/27/16 15:00 09/27/16 15:00 09/27/16 18:30 09/27/16 15:00 - Medications Medications: Current Medications Famotidine (Pepcid) 20 mg IVP DAILY [facility] Last Admin: 09/27/16 10:47 Dose: 20 mg Hydralazine HCl (Apresoline) 10 mg PO QID [facility] Last Admin: 09/27/16 19:32 Dose: Not Given Nitroglycerin (Nitro-Bid 2% Oint) 1 ea TOP Q6H [facility] Last Admin: 09/27/16 14:35 Dose: 1 ea - Labs Labs: 09/24/16 06:40 09/24/16 06:40 PT 11.9 SECONDS (9.7-12.2) 09/20/16 06:23 INR 1.1 09/20/16 06:23 APTT 28 SECONDS (21-34) 09/20/16 06:23 - Head Exam Head Exam: ATRAUMATIC - Eye Exam Eye Exam: Normal appearance - ENT Exam ENT Exam: Mucous Membranes Dry - Respiratory Exam Respiratory Exam: NORMAL BREATHING PATTERN - Cardiovascular Exam Cardiovascular Exam: +S1, +S2 - GI/Abdominal Exam GI & Abdominal Exam: Normal Bowel Sounds Assessment and Plan (1) 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
--- NOTE | 2016-09-27 21:38 | CP.PCM.PN ---
Subjective - Date & Time of Evaluation Date of Evaluation: 09/26/16 Time of Evaluation: 12:15 - Subjective Subjective: Appears comfortable family at bedside Objective - Vital Signs/Intake and Output Vital Signs (last 24 hours): Temp Pulse Resp BP Pulse Ox 98 F 97 H 20 91/53 L 99 09/27/16 15:00 09/27/16 15:00 09/27/16 15:00 09/27/16 18:30 09/27/16 15:00 - Medications Medications: Current Medications Famotidine (Pepcid) 20 mg IVP DAILY [facility] Last Admin: 09/27/16 10:47 Dose: 20 mg Hydralazine HCl (Apresoline) 10 mg PO QID [facility] Last Admin: 09/27/16 19:32 Dose: Not Given Nitroglycerin (Nitro-Bid 2% Oint) 1 ea TOP Q6H [facility] Last Admin: 09/27/16 14:35 Dose: 1 ea - Labs Labs: 09/24/16 06:40 09/24/16 06:40 PT 11.9 SECONDS (9.7-12.2) 09/20/16 06:23 INR 1.1 09/20/16 06:23 APTT 28 SECONDS (21-34) 09/20/16 06:23 - Head Exam Head Exam: ATRAUMATIC - Eye Exam Eye Exam: Normal appearance - ENT Exam ENT Exam: Mucous Membranes Dry - Respiratory Exam Respiratory Exam: NORMAL BREATHING PATTERN - Cardiovascular Exam Cardiovascular Exam: +S1, +S2 - GI/Abdominal Exam GI & Abdominal Exam: Normal Bowel Sounds Assessment and Plan (1) TTP (thrombotic thrombocytopenic purpura) Assessment & Plan: refractory to plasma exchange s/p Rituximab; redose Thursday Status: Acute
--- NOTE | 2016-09-27 23:21 | CON ---
FOLLOWUP RENAL CONSULTATION DATE: LOCATION: The patient is located in room 653, bed B. REQUESTED BY: Dr. Kavon Ureña. REASON FOR FOLLOWUP: End-stage renal disease, for continuation of the hemodialysis. SUBJECTIVE: Mrs. Denise Garcia is an 80 years old elderly female with a past medical history significant for longstanding hypertension, rheumatoid arthritis, who was admitted with a chief complaint of altered mental status, nausea, vomiting, diarrhea, thrombocytopenia, and renal failure, found to have schistocytes positive and also diagnosed as TTP and started on plasmapheresis. The patient has relapsing of the TTP x3 in the last 3 months and patient just completed first cycle earlier this week. The patient underwent hemodialysis today without any complications. The patient is slightly drowsy, but arousable. PHYSICAL EXAMINATION GENERAL: Mrs. Denise Garcia is a 80 years old elderly female, moderately built, moderately nourished, not in acute distress. VITAL SIGNS: As follows: Blood pressure 123/88, pulse 96, respiratory rate 16, temperature 98.1, and saturations 97%. Height 5 feet 2 inches and weight is 126 pounds. HEENT: Pupils are normal and reactive to light and accommodation. Conjunctivae pink. Sclerae anicteric. Tongue is moist. Trachea is midline. LUNGS: Symmetry on both sides. Bilateral breath sounds present. No crackles. CARDIOVASCULAR SYSTEM: [place] at the fifth intercostal space, midclavicular line. S1 and S2 audible. No murmur or gallop. ABDOMEN: Normal in appearance. Soft and tympanic. No guarding. No rigidity. No hepatosplenomegaly. CENTRAL NERVOUS SYSTEM: The patient is arousable, oriented x1. Sensory and motor system is grossly within normal limits. EXTREMITIES: No cyanosis, no clubbing, no edema. CURRENT MEDICATIONS: Include as follows: Xalatan eye drops, TheraTears and also valacyclovir 500 mg p.o. daily, nifedipine 30 mg p.o. daily, and methotrexate 1 tablet p.o. q. weekly, Megace 40 mg p.o. daily, and Tylenol 650 mg p.o. q. 6 hours p.r.n. LABORATORY DATA: Include as follows. As on 09/24/2016, WBC 17.4, hemoglobin 9.4, hematocrit is 30.2, platelets 107. Sodium 138, potassium 3.7, chloride 97, CO2 28, BUN 29, creatine 3.2, and glucose 75. Calcium 8 and phosphorus 2.8. Magnesium 1.7. Total bilirubin 0.7, AST 32, ALT 64, and alkaline phosphatase 103, total protein 5.8, albumin is 2.9. Heparin-induced antibody as of 09/13/2016 was negative. Chest x-ray as of 09/23/2016, mild pulmonary venous congestion, small bilateral pleural effusion, left-sided dialysis catheter with distal tip extending into the SVC. ASSESSMENT AND PLAN: In summary, Mrs. Denise Garcia is an 80 years old elderly female with a history of hypertension, rheumatoid arthritis, cardiomyopathy, congestive heart failure, status post respiratory failure, status post extubation, end-stage renal disease, and hemodialysis 3 times a week, relapsing thrombotic thrombocytopenic purpura x3 since patient was admitted in July, status post plasmapheresis x3 cycles. 1. 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 2. Cardiomyopathy. 3. Hypertension, blood pressure is stable. 4. Thrombocytopenia secondary to most likely thrombotic thrombocytopenic purpura. 5. Rule out atypical HUS. Followup with hematology for further management. 6. Stable hemodialysis treatment. Had ultrafiltration about 3 liters. Thank you for allowing me to participate in your patient's care. Horacio Graham MD cc: OLIVERIO
[2016-09-28] MEDS: Nitroglycerin 2% Ointment Foilpak UD TOP SCH ×4 (04:12→23:00)
--- NOTE | 2016-09-28 07:41 | CP.PCM.PN ---
Subjective - Date & Time of Evaluation Date of Evaluation: 09/28/16 Time of Evaluation: 06:10 - Subjective Subjective: clinically same Objective - Vital Signs/Intake and Output Vital Signs (last 24 hours): Temp Pulse Resp BP Pulse Ox 97.6 F 89 20 128/73 99 09/28/16 04:13 09/28/16 04:13 09/28/16 04:13 09/28/16 04:13 09/27/16 15:00 - Medications Medications: Current Medications Famotidine (Pepcid) 20 mg IVP DAILY [facility] Last Admin: 09/27/16 10:47 Dose: 20 mg Hydralazine HCl (Apresoline) 10 mg PO QID [facility] Last Admin: 09/27/16 22:23 Dose: 10 mg Nitroglycerin (Nitro-Bid 2% Oint) 1 ea TOP Q6H [facility] Last Admin: 09/28/16 04:12 Dose: Not Given - Labs Labs: 09/24/16 06:40 09/24/16 06:40 PT 11.9 SECONDS (9.7-12.2) 09/20/16 06:23 INR 1.1 09/20/16 06:23 APTT 28 SECONDS (21-34) 09/20/16 06:23 - Constitutional Appears: Well - Head Exam Head Exam: ATRAUMATIC, NORMAL INSPECTION, NORMOCEPHALIC - Eye Exam Eye Exam: EOMI, Normal appearance, PERRL Pupil Exam: NORMAL ACCOMODATION, PERRL - ENT Exam ENT Exam: Mucous Membranes Moist, Normal Exam - Neck Exam Neck Exam: Full ROM, Normal Inspection. absent: Lymphadenopathy - Respiratory Exam Respiratory Exam: Decreased Breath Sounds - Cardiovascular Exam Cardiovascular Exam: REGULAR RHYTHM, +S1, +S2 - GI/Abdominal Exam GI & Abdominal Exam: Soft, Diminished Bowel Sounds - Rectal Exam Rectal Exam: Deferred Assessment and Plan (1) Cardiac dysrhythmia Status: Acute (2) ESRD (end stage renal disease) on dialysis Status: Acute (3) Pulmonary edema Status: Acute (4) MARCO (acute kidney injury) Status: Acute (5) Acute respiratory failure requiring reintubation Status: Acute (6) Arthritis Status: Acute (7) CHF (congestive heart failure) Status: Acute (8) Dehydration Status: Acute (9) Dehydration Status: Acute (10) Diverticulosis Status: Acute (11) Elevated CEA Status: Acute (12) Hypertension Status: Acute (13) Inguinal lymphadenopathy Status: Acute (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
--- NOTE | 2016-09-28 15:37 | CP.PCM.PN ---
Subjective - Date & Time of Evaluation Date of Evaluation: 09/28/16 Time of Evaluation: 15:36 - Subjective Subjective: pt is seen and examined, follow up consult is dictated #[id number] check labs in am Objective - Vital Signs/Intake and Output Vital Signs (last 24 hours): Temp Pulse Resp BP Pulse Ox 98 F 88 20 138/77 100 09/28/16 09:55 09/28/16 09:55 09/28/16 09:55 09/28/16 09:55 09/28/16 09:55 Intake and Output: 09/28/16 09/28/16 06:59 18:59 Intake Total 240 Balance 240 - Medications Medications: Current Medications Famotidine (Pepcid) 20 mg IVP DAILY [facility] Last Admin: 09/28/16 09:32 Dose: 20 mg Hydralazine HCl (Apresoline) 10 mg PO QID [facility] Last Admin: 09/28/16 13:31 Dose: 10 mg Nitroglycerin (Nitro-Bid 2% Oint) 1 ea TOP Q6H [facility] Last Admin: 09/28/16 09:32 Dose: 1 ea - Labs Labs: 09/24/16 06:40 09/24/16 06:40 PT 11.9 SECONDS (9.7-12.2) 09/20/16 06:23 INR 1.1 09/20/16 06:23 APTT 28 SECONDS (21-34) 09/20/16 06:23
--- NOTE | 2016-09-28 22:08 | PN ---
DATE: FOLLOWUP RENAL CONSULTATION LOCATION: The patient is located in room 653, bed B. REQUESTED BY: Dr. Kavon Ureña. REASON FOR FOLLOWUP: End-stage renal disease, continuation of the hemodialysis. SUBJECTIVE: Mrs. Denise Garcia is an 80-year-old elderly female with a past medical history significant for longstanding hypertension, rheumatoid arthritis, cardiomyopathy, CHF, respiratory failure, thrombocytopenia, TTP, renal failure on hemodialysis 3 times a week Thursday, , and Thursday. The patient has a relapsing TTP, patient had plasmapheresis x3 sessions in the last 2 months and still platelets are on the low side. The patient is not in acute distress. The patient is slightly drowsy, arousable. PHYSICAL EXAMINATION: GENERAL: Mrs. Denise Garcia is an 80-year-old elderly female, moderately built, moderately nourished, not in acute distress. VITAL SIGNS: Blood pressure 138/77, pulse 88, respirations 20, temperature 98, saturation 100%, height 5 feet, 2 inches, weight is 115 pounds. HEENT: Pupils are normal and reactive to light and accommodation. Conjunctivae pink. Sclerae anicteric. Tongue is moist. Trachea is midline. LUNGS: Symmetry on both sides. Bilateral breath sounds present. Clear to auscultation. CARDIOVASCULAR: [place] at the fifth intercostal space, midclavicular line. S1 and S2 audible. No murmur or gallop. ABDOMEN: Normal in appearance. Soft and tympanic. No guarding. No rigidity. No hepatosplenomegaly. CENTRAL NERVOUS SYSTEM: The patient is slightly drowsy, arousable, oriented x1-2. EXTREMITIES: No cyanosis, no clubbing, no edema. LABORATORY DATA: No labs are available for today. CURRENT MEDICATIONS: Include hydralazine 10 mg p.o. q.i.d., nitro paste one inch to anterior chest wall q. 6 h, Pepcid 20 mg p.o. daily. ASSESSMENT AND PLAN: In summary, Mrs. Denise Garcia is an 80-year-old elderly female with a history of hypertension, rheumatoid arthritis, cardiomyopathy, congestive heart failure, status post respiratory failure, status post intubation x2 in the last 2 months, thrombocytopenia, renal failure on hemodialysis for the last 2 months. 1. Renal failure most likely end-stage renal disease secondary to thrombotic thrombocytopenic purpura and cannot rule out thrombotic microangiopathy, cannot rule out acute tubular necrosis. 2. Cardiomyopathy. 3. 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 4. Anemia secondary to renal failure, hemoglobin and hematocrit is stable. 5. Hypertension, blood pressure is stable. Continue hydralazine and nitro paste. 6. We will check CBC, CMP and LDH in a.m. 7. Follow with welding rod coater for further management. 8. We will follow with you. Thank you for allowing me to participate in your patient's care. Horacio Graham MD
[2016-09-29] MEDS: Nitroglycerin 2% Ointment Foilpak UD TOP SCH ×4 (04:55→21:44)
[2016-09-29 07:52] LABS: BASO % 0.6 % (0.0-2.0); EOS # 0.2 K/uL (0.0-0.7); EOS % 2.4 % (0.0-4.0); HEMATOCRIT 31.5 % (34.0-47.0); LYMPH # 0.6 K/uL (1.0-4.3); LYMPH % 7.8 % (20.0-40.0); MEAN CELL VOLUME 94.3 fL (81.0-99.0); MEAN CORPUSCULAR HEMOGLOBIN 29.3 pg (27.0-31.0); MEAN PLATELET VOLUME 10.6 fL (7.2-11.7); MONO # 0.9 K/uL (0.0-0.8); MONO % 10.5 % (0.0-10.0); RED CELL DISTRIBUTION WIDTH 19.3 % (11.5-14.5)
[2016-09-29 07:53] LABS: POTASSIUM 4.5 mmol/L (3.6-5.2)
[2016-09-29 07:54] LABS: PLATELET COUNT 132 K/uL (130-400); WHITE BLOOD COUNT 8.1 K/uL (4.8-10.8)
[2016-09-29 07:55] LABS: BILIRUBIN,TOTAL 0.6 mg/dL (0.2-1.3); TOTAL PROTEIN 6.6 g/dL (6.3-8.3)
[2016-09-29 07:56] LABS: CALCIUM 8.9 mg/dl (8.6-10.4)
[2016-09-29 08:19] LABS: EOSINOPHIL 3 % (0-4); NEUTROPHIL 83 % (50-75); TOTAL CELLS COUNTED 100
[2016-09-29 08:20] LABS: LARGE PLATELETS PRESENT
--- NOTE | 2016-09-29 13:19 | CP.PCM.PN ---
Subjective - Date & Time of Evaluation Date of Evaluation: 09/29/16 Time of Evaluation: 13:19 Objective - Vital Signs/Intake and Output Vital Signs (last 24 hours): Temp Pulse Resp BP Pulse Ox 98.3 F 78 20 126/69 99 09/29/16 08:07 09/29/16 08:07 09/29/16 08:07 09/29/16 08:07 09/29/16 08:07 Intake and Output: 09/29/16 09/29/16 06:59 18:59 Intake Total 250 Balance 250 - Medications Medications: Current Medications Famotidine (Pepcid) 20 mg IVP DAILY [facility]S [facility] Last Admin: 09/29/16 10:26 Dose: 20 mg Hydralazine HCl (Apresoline) 10 mg PO QID [facility] 234 BEDS AT [facility] Last Admin: 09/29/16 10:26 Dose: 10 mg Nitroglycerin (Nitro-Bid 2% Oint) 1 ea TOP Q6H [facility]S AT [facility] Last Admin: 09/29/16 10:26 Dose: 1 ea - Labs Labs: 09/29/16 07:21 09/29/16 07:21 PT 11.9 SECONDS (9.7-12.2) 09/20/16 06:23 INR 1.1 09/20/16 06:23 APTT 28 SECONDS (21-34) 09/20/16 06:23
--- NOTE | 2016-09-29 18:51 | CP.PCM.PN ---
Subjective - Date & Time of Evaluation Date of Evaluation: 09/29/16 Time of Evaluation: 18:50 - Subjective Subjective: pt is seen and examined, follow up consult is dictated #[id number] Objective - Vital Signs/Intake and Output Vital Signs (last 24 hours): Temp Pulse Resp BP Pulse Ox 98.3 F 83 20 115/62 99 09/29/16 15:00 09/29/16 17:35 09/29/16 15:00 09/29/16 17:35 09/29/16 15:00 Intake and Output: 09/29/16 09/29/16 06:59 18:59 Intake Total 250 Balance 250 - Medications Medications: Current Medications Famotidine (Pepcid) 20 mg IVP DAILY [facility] Last Admin: 09/29/16 10:26 Dose: 20 mg Hydralazine HCl (Apresoline) 10 mg PO QID [facility] Last Admin: 09/29/16 17:34 Dose: 10 mg Nitroglycerin (Nitro-Bid 2% Oint) 1 ea TOP Q6H [facility] Last Admin: 09/29/16 17:35 Dose: Not Given - Labs Labs: 09/29/16 07:21 09/29/16 07:21 PT 11.9 SECONDS (9.7-12.2) 09/20/16 06:23 INR 1.1 09/20/16 06:23 APTT 28 SECONDS (21-34) 09/20/16 06:23
[2016-09-30] MEDS: Nitroglycerin 2% Ointment Foilpak UD TOP SCH ×4 (04:13→21:34)
--- NOTE | 2016-09-30 04:21 | CP.PCM.PN ---
Subjective - Date & Time of Evaluation Date of Evaluation: 09/30/16 Time of Evaluation: 19:30 - Subjective Subjective: Appears comfortable Rituximab tomorrow after dialysis Objective - Vital Signs/Intake and Output Vital Signs (last 24 hours): Temp Pulse Resp BP Pulse Ox 99.1 F 86 20 123/57 L 20 L 09/29/16 23:00 09/29/16 23:00 09/29/16 15:00 09/29/16 23:00 09/29/16 23:00 Intake and Output: 09/29/16 09/30/16 18:59 06:59 Intake Total 200 Balance 200 - Medications Medications: Current Medications Famotidine (Pepcid) 20 mg IVP DAILY [facility] Last Admin: 09/29/16 10:26 Dose: 20 mg Hydralazine HCl (Apresoline) 10 mg PO QID [facility] Last Admin: 09/29/16 23:07 Dose: Not Given Nitroglycerin (Nitro-Bid 2% Oint) 1 ea TOP Q6H [facility] Last Admin: 09/30/16 04:13 Dose: Not Given - Labs Labs: 09/29/16 07:21 09/29/16 07:21 PT 11.9 SECONDS (9.7-12.2) 09/20/16 06:23 INR 1.1 09/20/16 06:23 APTT 28 SECONDS (21-34) 09/20/16 06:23 - Head Exam Head Exam: ATRAUMATIC - Eye Exam Eye Exam: Normal appearance - ENT Exam ENT Exam: Mucous Membranes Dry - Respiratory Exam Respiratory Exam: NORMAL BREATHING PATTERN - Cardiovascular Exam Cardiovascular Exam: +S1, +S2 - GI/Abdominal Exam GI & Abdominal Exam: Normal Bowel Sounds Assessment and Plan (1) TTP (thrombotic thrombocytopenic purpura) Assessment & Plan: refractory to plasma exchange on Rituximab; 2nd dose tomorrow after hemodialysis Status: Acute
[2016-09-30 06:29] LABS: ALB/GLOB RATIO 1.1 (1.0-2.1); BILIRUBIN,TOTAL 0.5 mg/dL (0.2-1.3); CALCIUM 9.2 mg/dl (8.6-10.4); PHOSPHOROUS 3.5 mg/dL (2.5-4.5); POTASSIUM 4.8 mmol/L (3.6-5.2); TOTAL PROTEIN 6.6 g/dL (6.3-8.3)
[2016-09-30 06:37] LABS: BASO % 0.4 % (0.0-2.0); EOS # 0.2 K/uL (0.0-0.7); EOS % 2.3 % (0.0-4.0); HEMATOCRIT 31.4 % (34.0-47.0); LYMPH # 0.9 K/uL (1.0-4.3); LYMPH % 8.7 % (20.0-40.0); MEAN CELL VOLUME 93.7 fL (81.0-99.0); MEAN CORPUSCULAR HEMOGLOBIN 29.7 pg (27.0-31.0); MEAN CORPUSCULAR HGB CONC 31.7 g/dL (33.0-37.0); MEAN PLATELET VOLUME 10.2 fL (7.2-11.7); MONO # 1.4 K/uL (0.0-0.8); MONO % 13.6 % (0.0-10.0); PLATELET COUNT 140 K/uL (130-400); RED CELL DISTRIBUTION WIDTH 19.2 % (11.5-14.5); WHITE BLOOD COUNT 10.3 K/uL (4.8-10.8)
[2016-09-30 08:06] LABS: EOSINOPHIL 1 % (0-4); NEUTROPHIL 88 % (50-75); TOTAL CELLS COUNTED 100
--- NOTE | 2016-09-30 08:56 | PN ---
DATE: 09/29/2016 FOLLOWUP RENAL CONSULTATION LOCATION: Room 653, bed B. REQUESTING PHYSICIAN: Dr. Kavon Ureña. REASON FOR RENAL FOLLOWUP: End-stage renal disease, continuation of hemodialysis. HISTORY OF PRESENT ILLNESS: The patient is 80 years old, elderly female with a history of longstanding hypertension, rheumatoid arthritis, cardiomyopathy, CHF, respiratory failure status post intubation x2 for shortness of breath, thrombocytopenia, being treated for TTP, plasmapheresis x3 sessions in the last two months for relapsing TTP. The patient is not in acute distress. The patient is alert, awake, following commands appropriately. The patient's family at bedside reading. PHYSICAL EXAMINATION: GENERAL: The patient is 80 years old elderly female, moderate built, moderately nourished, not in acute distress. VITAL SIGNS: The patient's vital signs, as follows: Blood pressure 126/69, pulse 78, and respiration 20, temperature 98.3, saturations 99%, height 5 feet 2 inches, and weight 119 pounds. HEENT: Pupils normal, reactive to light and accommodation. Conjunctivae pink. Sclerae anicteric. Tongue is moist. Trachea is midline. LUNGS: Symmetric on both sides. Bilateral breath sounds present. Occasional basal crackles present. CARDIOVASCULAR: [place] at the fifth intercostal space, midclavicular line. S1 and S2 audible. No murmur or gallop. ABDOMEN: Normal in appearance, soft and tympanic. No guarding. No rigidity. No hepatosplenomegaly. CENTRAL NERVOUS SYSTEM: The patient is alert, awake and oriented x1-2. Sensory and motor system is grossly within normal limits. EXTREMITIES: No cyanosis, no clubbing, no edema. SKIN: Turgor is normal. CURRENT MEDICATIONS: Include as follows: Xalatan eye drops and also TheraTears, valacyclovir which was discontinued, hydralazine 10 mg p.o. q.i.d., nitroglycerin ointment 1-inch topical q.6 hours, and Pepcid 20 mg p.o. daily. LABORATORY DATA: Include as follows: As of 09/29/2016; WBC 8.1, hemoglobin 9.8, hematocrit is 31.5, and platelets 132. Neutrophils 83 and lymph 6. Sodium 140, potassium 4.5, chloride 99, CO2 of 28, BUN 28, creatinine 5.6, glucose 93, and calcium 8.9. Total bili 0.6. AST 23 and ALT 24. Alkaline phosphatase 102. LDH is 611. Total protein 6.6, albumin is 3.3. ASSESSMENT AND PLAN: In summary, the patient is 80 years old elderly female with a history of hypertension, rheumatoid arthritis, congestive heart failure, cardiomyopathy with thrombocytopenia, thrombotic thrombocytopenic purpura, status post plasmapheresis x3 sessions in the last two months for relapsing thrombotic thrombocytopenic purpura and also status post intubation x2 and extubation. 1. 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 The patient's family refused kidney biopsy earlier. 2. Hypertension, blood pressure is stable. Continue hydralazine and nitropaste. 3. Anemia secondary to renal failure and cannot rule out secondary to thrombotic thrombocytopenic purpura. 4. Thrombocytopenia, platelets are stable at this time. 5. Cardiomyopathy. We will follow with you. Thank you for allowing me to participate in your patient's care and continue hemodialysis three times a week, Thursday, , and Thursday. Consider physical therapy evaluation, consider rehab evaluation if possible and follow up with the Hematology for further management. Horacio Graham MD
--- NOTE | 2016-09-30 09:44 | CP.PCM.PN ---
Subjective - Date & Time of Evaluation Date of Evaluation: 09/30/16 Time of Evaluation: 09:43 - Subjective Subjective: pt seen and examined, follow up consult is dictated #[id number] seen in hd, stable tx, uf goal is 2.3 lit Objective - Vital Signs/Intake and Output Vital Signs (last 24 hours): Temp Pulse Resp BP Pulse Ox 98.5 F 91 H 20 118/65 20 L 09/30/16 04:00 09/30/16 04:00 09/30/16 04:00 09/30/16 04:00 09/29/16 23:00 Intake and Output: 09/30/16 09/30/16 06:59 18:59 Intake Total 200 Balance 200 - Medications Medications: Current Medications Famotidine (Pepcid) 20 mg IVP DAILY [facility] Last Admin: 09/30/16 09:39 Dose: Not Given Hydralazine HCl (Apresoline) 10 mg PO QID [facility] Last Admin: 09/30/16 09:38 Dose: Not Given Nitroglycerin (Nitro-Bid 2% Oint) 1 ea TOP Q6H [facility] Last Admin: 09/30/16 09:39 Dose: Not Given - Labs Labs: 09/30/16 06:12 09/30/16 06:12 PT 11.9 SECONDS (9.7-12.2) 09/20/16 06:23 INR 1.1 09/20/16 06:23 APTT 28 SECONDS (21-34) 09/20/16 06:23
--- NOTE | 2016-09-30 16:27 | CP.PCM.PN ---
Subjective - Date & Time of Evaluation Date of Evaluation: 09/30/16 Time of Evaluation: 16:27 Objective - Vital Signs/Intake and Output Vital Signs (last 24 hours): Temp Pulse Resp BP Pulse Ox 98.7 F 92 H 19 138/65 97 09/30/16 13:10 09/30/16 13:10 09/30/16 13:10 09/30/16 13:10 09/30/16 13:10 Intake and Output: 09/30/16 09/30/16 06:59 18:59 Intake Total 200 Balance 200 - Medications Medications: Current Medications Famotidine (Pepcid) 20 mg IVP DAILY [facility] Last Admin: 09/30/16 09:39 Dose: Not Given Heparin Sodium (Porcine) (Heparin) 3,400 units IVP TTS [facility] Last Admin: 09/30/16 11:28 Dose: 3,400 units Hydralazine HCl (Apresoline) 10 mg PO QID [facility] Last Admin: 09/30/16 14:25 Dose: Not Given Nitroglycerin (Nitro-Bid 2% Oint) 1 ea TOP Q6H [facility] Last Admin: 09/30/16 09:39 Dose: Not Given - Labs Labs: 09/30/16 06:12 09/30/16 06:12 PT 11.9 SECONDS (9.7-12.2) 09/20/16 06:23 INR 1.1 09/20/16 06:23 APTT 28 SECONDS (21-34) 09/20/16 06:23
[2016-09-30] MEDS ORDERED: Mag&Al/Simet/Diphen/Lido 237 ML KIT PO PRN (19:15)
--- NOTE | 2016-09-30 20:49 | CP.PCM.CON ---
History of Present Illness - History of Present Illness History of Present Illness: 80 F with hx of ischemic Cardiomyopathy Does not answer questions/Non verbal Not in distress Review of Systems - Cardiovascular Cardiovascular: absent: Chest Pain - Respiratory Respiratory: absent: Dyspnea - Gastrointestinal Gastrointestinal: absent: Abdominal Pain - Musculoskeletal Musculoskeletal: absent: Arthralgias - Hematologic/Lymphatic Hematologic: absent: Easy Bleeding Past Patient History - Past Medical History & Family History Past Medical History?: Yes - Past Social History Smoking Status: Never Smoked - CARDIAC Hx Congestive Heart Failure: Yes Hx Hypertension: Yes - PULMONARY Hx Respiratory Disorders: No - NEUROLOGICAL Hx Neurological Disorder: Yes Hx Dementia: Yes - HEENT Hx HEENT Problems: Yes - RENAL Hx Renal Failure: Yes (ESRD) - ENDOCRINE/METABOLIC Hx Endocrine Disorders: Yes (enlarged thyroid) Hx Diabetes Mellitus Type 2: Yes - HEMATOLOGICAL/ONCOLOGICAL Hx Anemia: Yes - INTEGUMENTARY Hx Dermatological Problems: Yes (generalized pruritus) - MUSCULOSKELETAL/RHEUMATOLOGICAL Hx Arthritis: Yes - GASTROINTESTINAL Hx Gastrointestinal Disorders: No - GENITOURINARY/GYNECOLOGICAL Hx Genitourinary Disorders: No - PSYCHIATRIC Hx Substance Use: No - SURGICAL HISTORY Hx Surgeries: Yes Other/Comment: 1993 THYROID SX - ANESTHESIA Hx Anesthesia: Yes Hx Anesthesia Reactions: No Hx Malignant Hyperthermia: No Meds Allergies/Adverse Reactions: Allergies Allergy/AdvReac Type Severity Reaction Status Date / Time No Known Allergies Allergy Verified 08/16/16 01:13 - Medications Medications: Current Medications Famotidine (Pepcid) 20 mg IVP DAILY [facility] Last Admin: 09/30/16 09:39 Dose: Not Given Heparin Sodium (Porcine) (Heparin) 3,400 units IVP TTS [facility] Last Admin: 09/30/16 11:28 Dose: 3,400 units Hydralazine HCl (Apresoline) 10 mg PO QID [facility] Last Admin: 09/30/16 18:03 Dose: 10 mg Latanoprost (Xalatan Opht) 0 ml OU HS [facility] Megestrol Acetate (Megace) 40 mg PO DAILY [facility] Nitroglycerin (Nitro-Bid 2% Oint) 1 ea TOP Q6H [facility] Last Admin: 09/30/16 18:03 Dose: Not Given Saliva Substitute (First Magic Mouthwash) 5 ml PO QID PRN PRN Reason: sore mouth Physical Exam - Head Exam Head Exam: ATRAUMATIC - Eye Exam Eye Exam: EOMI, PERRL - ENT Exam ENT Exam: Mucous Membranes Moist - Respiratory Exam Respiratory Exam: NORMAL BREATHING PATTERN - Cardiovascular Exam Cardiovascular Exam: +S1, +S2 - GI/Abdominal Exam GI & Abdominal Exam: Normal Bowel Sounds, Soft - Skin Skin Exam: Warm Results - Vital Signs Recent Vital Signs: Last Vital Signs Temp 98.6 F 09/30/16 17:04 Pulse 94 H 09/30/16 18:04 Resp 20 09/30/16 17:04 BP 110/62 09/30/16 18:04 Pulse Ox 99 09/30/16 17:04 - Labs Result Diagrams: 09/30/16 06:12 09/30/16 06:12 Labs: Laboratory Results - last 24 hr 09/30/16 09/30/16 09/30/16 06:12 06:12 11:19 WBC 10.3 RBC 3.35 L Hgb 9.9 L Hct 31.4 L MCV 93.7 MCH 29.7 MCHC 31.7 L RDW 19.2 H Plt Count 140 MPV 10.2 Neut % (Auto) 75.0 Lymph % (Auto) 8.7 L King % (Auto) 13.6 H Eos % (Auto) 2.3 Baso % (Auto) 0.4 Neut # 7.7 H Lymph # 0.9 L King # 1.4 H Eos # 0.2 Baso # 0.0 Neutrophils % (Manual) 88 H Lymphocytes % (Manual) 7 L Monocytes % (Manual) 4 Eosinophils % (Manual) 1 Platelet Estimate Normal Hypochromasia (manual) Slight Anisocytosis (manual) Slight Target Cells Slight Sodium 140 Potassium 4.8 Chloride 100 Carbon Dioxide 26 Anion Gap 18 BUN 40 H Creatinine 6.8 H Est GFR ( Amer) 7 Est GFR (Non-Af Amer) 6 POC Glucose (mg/dL) 102 Random Glucose 89 Calcium 9.2 Phosphorus 3.5 Total Bilirubin 0.5 AST 23 ALT 32 Alkaline Phosphatase 98 Total Protein 6.6 Albumin 3.5 Globulin 3.1 Albumin/Globulin Ratio 1.1 Assessment & Plan - Assessment and Plan (Free Text) Assessment: 1. 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 Thrombocytopenia 3. Altered mental status Continue current management
[2016-09-30] MEDS: Latanoprost 2.5 ml Opht Soln OU SCH (22:23)
--- NOTE | 2016-10-01 01:36 | PN ---
FOLLOWUP RENAL CONSULTATION LOCATION: Room 350, bed A. REQUESTING PHYSICIAN: Dr. Kavon Ureña. REASON FOR RENAL FOLLOWUP: End-stage renal disease, continuation of hemodialysis. HISTORY OF PRESENT ILLNESS: The patient is 80 years old, elderly female with a history of hypertension; rheumatoid arthritis; CHF; cardiomyopathy; respiratory failure, status post intubation and extubation x2; thrombocytopenia, being treated for TTP and renal failure, on hemodialysis for the last 2 months without any improvement. The patient was examined during dialysis with poorly-functioning catheter and poor blood flow from the dialysis catheter. PHYSICAL EXAMINATION: GENERAL: The patient is 80 years old elderly female, moderately built, moderately nourished, not in acute distress. VITAL SIGNS: Blood pressure this morning 115/70 and 126/77, pulse 96, respirations 19, temperature 98.6 and saturations 97%. HEENT: Pupils normal, reactive to light and accommodation. Conjunctivae pink. Sclerae anicteric. Tongue is moist. Trachea is midline. LUNGS: Symmetric on both sides. Bilateral breath sounds present. No crackles. CARDIOVASCULAR: [place] at the fifth intercostal space, midclavicular line. S1 and S2 audible. No murmur or gallop. ABDOMEN: Normal in appearance, soft and tympanic. No guarding. No rigidity. No hepatosplenomegaly. CENTRAL NERVOUS SYSTEM: The patient is alert and awake. Following simple commands. EXTREMITIES: No cyanosis, no clubbing, no edema. CURRENT MEDICATIONS: Include as follows: Hydralazine 10 mg p.o. q.i.d., alteplase 2 mg in each port x2, heparin 1700 units in each port post-dialysis and PermCath, Megace 40 mg p.o. daily, nitroglycerin ointment 1-inch topical q. 6 hours, Pepcid 20 mg IV daily and latanoprost eye drops. LABORATORY DATA: Include as follows: As of 09/30/2016; WBC 10.3, hemoglobin 9.9, hematocrit is 31.4 and platelets 140. Sodium 140, potassium 4.8, chloride 100, CO2 of 26, BUN 40, creatinine 6.8,, calcium 9.2, phosphorus 3.7, total bili 0.5, AST 23, ALT 32 and alkaline phosphatase 98. Total protein 6.6 and albumin is 3.5. ASSESSMENT AND PLAN: In summary, the patient is 80 years old elderly female with a history of hypertension; rheumatoid arthritis; anemia; renal failure; cardiomyopathy; congestive heart failure, status post intubation x2; thrombocytopenia; thrombotic thrombocytopenic purpura, status post plasmapheresis x3 sessions in the last 2 months with relapsing thrombotic thrombocytopenic purpura, on hemodialysis 3 times a week, Thursday, and Thursday. 1. Renal failure, most likely end-stage renal disease, cannot rule out thrombotic microangiopathy secondary to thrombotic thrombocytopenic purpura. No significant improvement for the last 2 months. The patient is on hemodialysis 3 times a week, Thursday, and Thursday. 2. Anemia secondary to renal failure and thrombotic thrombocytopenic purpura. 3. Cardiomyopathy. 4. Thrombocytopenia, platelets are stable. The patient is scheduled for rituximab after hemodialysis today. Continue to follow up with the grain shoveler, Dr. Montanez. Thank you for allowing me to participate in your patient's care. Horacio Graham MD [place]
[2016-10-01] MEDS: Nitroglycerin 2% Ointment Foilpak UD TOP SCH ×4 (04:00→21:56)
[2016-10-01] MEDS ORDERED: Megestrol Acetate 40 mg/ml Cup PO SCH (10:00)
--- NOTE | 2016-10-01 12:53 | CP.PCM.PN ---
Subjective - Date & Time of Evaluation Date of Evaluation: 10/01/16 Time of Evaluation: 12:52 - Subjective Subjective: pt seen and examined, follow up consult is dictated #[id number] Objective - Vital Signs/Intake and Output Vital Signs (last 24 hours): Temp Pulse Resp BP Pulse Ox 98.5 F 102 H 20 125/77 95 10/01/16 07:20 10/01/16 07:20 10/01/16 07:20 10/01/16 07:20 10/01/16 07:20 - Medications Medications: Current Medications Famotidine (Pepcid) 20 mg IVP DAILY [facility] Last Admin: 10/01/16 10:33 Dose: 20 mg Heparin Sodium (Porcine) (Heparin) 3,400 units IVP TTS [facility] Last Admin: 09/30/16 11:28 Dose: 3,400 units Hydralazine HCl (Apresoline) 10 mg PO QID [facility] Last Admin: 10/01/16 10:28 Dose: 10 mg Latanoprost (Xalatan Opht) 0 ml OU HS [facility] Last Admin: 09/30/16 22:23 Dose: 2.5 ml Megestrol Acetate (Megace) 40 mg PO DAILY [facility] Last Admin: 10/01/16 10:28 Dose: 40 mg Nitroglycerin (Nitro-Bid 2% Oint) 1 ea TOP Q6H [facility] Last Admin: 10/01/16 10:29 Dose: Not Given Saliva Substitute (First Magic Mouthwash) 5 ml PO QID PRN PRN Reason: sore mouth - Labs Labs: 09/30/16 06:12 09/30/16 06:12 PT 11.9 SECONDS (9.7-12.2) 09/20/16 06:23 INR 1.1 09/20/16 06:23 APTT 28 SECONDS (21-34) 09/20/16 06:23
--- NOTE | 2016-10-01 15:05 | CP.PCM.PN ---
Subjective - Date & Time of Evaluation Date of Evaluation: 10/01/16 Time of Evaluation: 15:05 Objective - Vital Signs/Intake and Output Vital Signs (last 24 hours): Temp Pulse Resp BP Pulse Ox 98.5 F 102 H 20 125/77 95 10/01/16 07:20 10/01/16 07:20 10/01/16 07:20 10/01/16 07:20 10/01/16 07:20 Intake and Output: 10/01/16 10/01/16 06:59 18:59 Intake Total 60 Balance 60 - Medications Medications: Current Medications Famotidine (Pepcid) 20 mg IVP DAILY [facility] Last Admin: 10/01/16 10:33 Dose: 20 mg Heparin Sodium (Porcine) (Heparin) 3,400 units IVP TTS [facility] Last Admin: 09/30/16 11:28 Dose: 3,400 units Hydralazine HCl (Apresoline) 10 mg PO QID [facility] Last Admin: 10/01/16 14:26 Dose: 10 mg Latanoprost (Xalatan Opht) 0 ml OU HS [facility] Last Admin: 09/30/16 22:23 Dose: 2.5 ml Megestrol Acetate (Megace) 40 mg PO DAILY [facility] Last Admin: 10/01/16 10:28 Dose: 40 mg Nitroglycerin (Nitro-Bid 2% Oint) 1 ea TOP Q6H [facility] Last Admin: 10/01/16 10:29 Dose: Not Given Saliva Substitute (First Magic Mouthwash) 5 ml PO QID PRN PRN Reason: sore mouth - Labs Labs: 09/30/16 06:12 09/30/16 06:12 PT 11.9 SECONDS (9.7-12.2) 09/20/16 06:23 INR 1.1 09/20/16 06:23 APTT 28 SECONDS (21-34) 09/20/16 06:23
[2016-10-01] MEDS: Vancomycin 125 MG/5 ML SOLN (ORAL/RECTAL) PO SCH (18:19)
--- NOTE | 2016-10-01 18:33 | CP.PCM.CON ---
History of Present Illness - History of Present Illness History of Present Illness: 80 YEAR OLD WOMAN WITH HISTORY OF HTN, ARTHRITIS, CHF WAS ADMITTED FOR ABDOMINAL PAIN, LETHARGY, CONFUSION AND FOUND TO HAVE LOW PLATELETS, LOW EJECTION FRACTION WAS DIAGNOSED TTP AND UNDERWENT PLASMAPHORESIS, AND UNDERWENT DIALYSIS FOR RENAL INSUFFICIENCY ID CONSULTED FOR C DIFF RX IN PROGRESS Review of Systems - Constitutional Constitutional: As Per HPI - EENT Eyes: absent: As Per HPI, Blind Spots, Blurred Vision, Change in Vision, Decreased Night Vision, Diplopia, Discharge, Dry Eye, Exophthalmos, Floaters, Irritation, Itchy Eyes, Loss of Peripheral Vision, Pain, Photophobia, Requires Corrective Lenses, Sees Flashes, Spots in Vision, Tunnel Vision, Other Visual Disturbances, Loss of Vision, Other Ears: absent: As Per HPI, Decreased Hearing, Ear Discharge, Ear Pain, Tinnitus, Abnormal Hearing, Disequilibrium, Dizziness, Other Nose/Mouth/Throat: absent: As Per HPI, Epistaxis, Nasal Congestion, Nasal Discharge, Nasal Obstruction, Nasal Trauma, Nose Pain, Post Nasal Drip, Sinus Pain, Sinus Pressure, Bleeding Gums, Change in Voice, Dental Pain, Dry Mouth, Dysphagia, Halitosis, Hoarsness, Lip Swelling, Mouth Lesions, Mouth Pain, Odynophagia, Sore Throat, Throat Swelling, Tongue Swelling, Facial Pain, Neck Pain, Neck Mass, Other - Breasts Breasts: absent: As Per HPI, Change in Shape, Mass, Pain, Nipple Discharge, Nipple Inversion, Skin Changes, Swelling, Other - Cardiovascular Cardiovascular: absent: As Per HPI, Acrocyanosis, Chest Pain, Chest Pain at Rest , Chest Pain with Activity, Claudication, Diaphoresis, Dyspnea, Dyspnea on Exertion, Edema, Irregular Heart Rhythm, Pain Radiating to Arm/Neck/Jaw, Leg Edema, Leg Ulcers, Lightheadedness, Orthopnea, Palpitations, Paroxysmal Nocturnal Dyspnea, Pedal Edema, Radiating Pain, Rapid Heart Rate, Slow Heart Rate, Syncope, Other - Respiratory Respiratory: absent: As Per HPI, Cough, Dyspnea, Hemoptysis, Dyspnea on Exertion , Wheezing, Snoring, Stridor, Pain on Inspiration, Chest Congestion, Excessive Mucous Production, Change in Mucous Color, Pain with Coughing, Other - Gastrointestinal Gastrointestinal: As Per HPI - Genitourinary Genitourinary: absent: As Per HPI, Change in Urinary Stream, Difficulty Urinating, Dysuria, Flank Pain, Hematuria, Pyuria, Nocturia, Urinary Incontinence, Urinary Frequency, Urinary Hesitance, Urinary Urgency, Voiding Freq/Small Amts, Freq UTI, Hx Renal/Bladder Calculi, Hx /Renal Surgery, Bladder Distension, Other - Reproductive: Female Reproductive:Female: absent: As Per HPI, Amenorrhea, Amenorrhea/ Control, Currently Menstual, Cycle <21 Days, Cycle >35 Days, Cycle Variable, Menses 1-7 Days, Menses >/= 8 Days, Menses Variable, Cycle > 4 Weeks Between, No Menses for 6 Months, Heavy Menses, Light Menses, Normal Menses, Spotting Between Cycles , S/P Hysterectomy, Menopausal, Post Menopausal, Premenarche, Abnormal Vaginal Bleeding, Dysmenorrhea, Dyspareunia, Genital Lesions, Genital Pruritis, Pelvic Pain, Prolapse Symptoms, Sexual Dysfunction, Vaginal Discharge, Vaginal Dryness , Vaginal Odor, Vaginal Pruritis, Other - Menstruation Menstruation: absent: As Per HPI, Amenorrhea, Amenorrhea/ Control, Currently Menstual, Cycle <21 Days, Cycle >35 Days, Cycle Variable, Menses 1-7 Days, Menses >/= 8 Days, Menses Variable, Cycle > 4 Weeks Between, No Menses for 6 Months, Heavy Menses, Light Menses, Normal Menses, Spotting Between Cycles , S/P Hysterectomy, Menopausal, Post Menopausal, Premenarche, Abnormal Vaginal Bleeding, Dysmenorrhea, Other - Musculoskeletal Musculoskeletal: As Per HPI - Integumentary Integumentary: absent: As Per HPI, Acne, Alopecia, Bleeding Lesions, Change in Hair, Change in Nails, Change in Pigmentation, Changing Lesions, Dry Skin, Erythema, Furuncle, Hirsutism, Lesions, New Lesions, Non-Healing Lesions, Photosensitivity, Pruritus, Rash, Skin Pain, Skin Ulcer, Sores, Striae, Swelling , Unusual Bruising, Wounds, Jaundice, Other - Neurological Neurological: absent: As Per HPI, Abnormal Gait, Abnormal Hearing, Abnormal Movements, Abnormal Speech, Behavioral Changes, Burning Sensations, Confusion, Convulsions, Disequilibrium, Dizziness, Numbness, Focal Weakness, Frequent Falls , Headaches, Lack of Coordination, Loss of Vision, Memory Loss, Paresthesias, Radicular Pain, Restless Legs, Sensory Deficit, Syncope, Tingling, Tremor, Vertigo, Weakness, Other Visual Disturbances, Other - Psychiatric Psychiatric: absent: As Per HPI, Abnormal Sleep Pattern, Anhedonia, Anxiety, Auditory Hallucinations, Behavioral Changes, Change in Appetite, Change in Libido, Confusion, Depression, Difficulty Concentrating, Hallucinations, Homicidal Ideation, Hopelessness, Irritability, Memory Loss, Mood Swings, Panic Attacks, Paranoia, Suicidal Ideation, Visual Hallucinations, Tactile Hallucinations, Other - Endocrine Endocrine: absent: As Per HPI, Change in Body Appearance, Change in Libido, Cold Intolorance, Deepening of Voice, Excessive Sweating, Fatigue, Flushing, Heat Intolorance, Increase in Ring/Shoe/Hat Size, Palpitations, Polydipsia, Polyphagia, Polyuria, Other - Hematologic/Lymphatic Hematologic: absent: As Per HPI, Easy Bleeding, Easy Bruising, Lymphadenopathy, Other Past Patient History - Past Medical History & Family History Past Medical History?: Yes - Past Social History Smoking Status: Never Smoked - CARDIAC Hx Congestive Heart Failure: Yes Hx Hypertension: Yes - PULMONARY Hx Respiratory Disorders: No - NEUROLOGICAL Hx Neurological Disorder: Yes Hx Dementia: Yes - HEENT Hx HEENT Problems: Yes - RENAL Hx Renal Failure: Yes (ESRD) - ENDOCRINE/METABOLIC Hx Endocrine Disorders: Yes (enlarged thyroid) Hx Diabetes Mellitus Type 2: Yes - HEMATOLOGICAL/ONCOLOGICAL Hx Anemia: Yes - INTEGUMENTARY Hx Dermatological Problems: Yes (generalized pruritus) - MUSCULOSKELETAL/RHEUMATOLOGICAL Hx Arthritis: Yes - GASTROINTESTINAL Hx Gastrointestinal Disorders: No - GENITOURINARY/GYNECOLOGICAL Hx Genitourinary Disorders: No - PSYCHIATRIC Hx Substance Use: No - SURGICAL HISTORY Hx Surgeries: Yes Other/Comment: 1993 THYROID SX - ANESTHESIA Hx Anesthesia: Yes Hx Anesthesia Reactions: No Hx Malignant Hyperthermia: No Meds Allergies/Adverse Reactions: Allergies Allergy/AdvReac Type Severity Reaction Status Date / Time No Known Allergies Allergy Verified 08/16/16 01:13 - Medications Medications: Current Medications Famotidine (Pepcid) 20 mg IVP DAILY [facility] Last Admin: 10/01/16 10:33 Dose: 20 mg Heparin Sodium (Porcine) (Heparin) 3,400 units IVP TTS [facility] Last Admin: 09/30/16 11:28 Dose: 3,400 units Hydralazine HCl (Apresoline) 10 mg PO QID [facility] Last Admin: 10/01/16 18:18 Dose: 10 mg Metronidazole (Flagyl) 500 mg in 100 mls @ 100 mls/hr IVPB Q8H [facility] Latanoprost (Xalatan Opht) 0 ml OU HS [facility] Last Admin: 09/30/16 22:23 Dose: 2.5 ml Megestrol Acetate (Megace) 40 mg PO DAILY [facility] Last Admin: 10/01/16 10:28 Dose: 40 mg Nitroglycerin (Nitro-Bid 2% Oint) 1 ea TOP Q6H [facility] Last Admin: 10/01/16 16:56 Dose: Not Given Saliva Substitute (First Magic Mouthwash) 5 ml PO QID PRN PRN Reason: sore mouth Vancomycin HCl (Vancocin (Oral Or Rectal Use)) 250 mg PO Q6 [facility] Last Admin: 10/01/16 18:19 Dose: 250 mg Physical Exam - Constitutional Appears: Non-toxic, Cachectic, Chronically Ill - Head Exam Head Exam: ATRAUMATIC, NORMAL INSPECTION, NORMOCEPHALIC - Eye Exam Eye Exam: PERRL. absent: Scleral icterus - ENT Exam ENT Exam: Mucous Membranes Dry, Normal External Ear Exam - Neck Exam Neck exam: Negative for: Lymphadenopathy, Thyromegaly - Respiratory Exam Respiratory Exam: Decreased Breath Sounds, Rhonchi - Cardiovascular Exam Cardiovascular Exam: REGULAR RHYTHM, +S1, +S2 - GI/Abdominal Exam GI & Abdominal Exam: Diminished Bowel Sounds, Soft. absent: Tenderness - Rectal Exam Rectal Exam: Deferred - Exam Exam: NORMAL INSPECTION - Extremities Exam Extremities exam: Positive for: pedal edema - Back Exam Back exam: absent: CVA tenderness (L), CVA tenderness (R) - Neurological Exam Neurological exam: Alert, CN II-XII Intact, Oriented x3, Reflexes Normal - Psychiatric Exam Psychiatric exam: Normal Mood Results - Vital Signs Recent Vital Signs: Last Vital Signs Temp 97.3 F L 10/01/16 15:00 Pulse 90 10/01/16 15:00 Resp 20 10/01/16 15:00 BP 125/76 10/01/16 15:00 Pulse Ox 100 10/01/16 15:00 - Labs Result Diagrams: 09/30/16 06:12 09/30/16 06:12 Labs: Laboratory Results - last 24 hr 10/01/16 06:13 C. 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
[2016-10-01] MEDS: metroNIDAZOLE IV 500 mg/100 ml 500 MG/100 ML BAG IVPB SCH (18:45)
--- NOTE | 2016-10-01 21:27 | CP.PCM.PN ---
Subjective - Date & Time of Evaluation Date of Evaluation: 10/01/16 Time of Evaluation: 13:30 - Subjective Subjective: Patient seen and evaluated No new events Comfortable Objective - Vital Signs/Intake and Output Vital Signs (last 24 hours): Temp Pulse Resp BP Pulse Ox 97.3 F L 90 20 125/76 100 10/01/16 15:00 10/01/16 15:00 10/01/16 15:00 10/01/16 15:00 10/01/16 15:00 Intake and Output: 10/01/16 10/02/16 18:59 06:59 Intake Total 60 Balance 60 - Medications Medications: Current Medications Famotidine (Pepcid) 20 mg IVP DAILY [facility] Last Admin: 10/01/16 10:33 Dose: 20 mg Heparin Sodium (Porcine) (Heparin) 3,400 units IVP TTS [facility] Last Admin: 09/30/16 11:28 Dose: 3,400 units Hydralazine HCl (Apresoline) 10 mg PO QID [facility] Last Admin: 10/01/16 18:18 Dose: 10 mg Metronidazole (Flagyl) 500 mg in 100 mls @ 100 mls/hr IVPB Q8H [facility] Last Admin: 10/01/16 18:45 Dose: 100 mls/hr Latanoprost (Xalatan Opht) 0 ml OU HS [facility] Last Admin: 09/30/16 22:23 Dose: 2.5 ml Megestrol Acetate (Megace) 40 mg PO DAILY [facility] Last Admin: 10/01/16 10:28 Dose: 40 mg Nitroglycerin (Nitro-Bid 2% Oint) 1 ea TOP Q6H [facility] Last Admin: 10/01/16 16:56 Dose: Not Given Saliva Substitute (First Magic Mouthwash) 5 ml PO QID PRN PRN Reason: sore mouth Last Admin: 10/01/16 20:34 Dose: 5 ml Vancomycin HCl (Vancocin (Oral Or Rectal Use)) 250 mg PO Q6 [facility] Last Admin: 10/01/16 18:19 Dose: 250 mg - Labs Labs: 09/30/16 06:12 09/30/16 06:12 PT 11.9 SECONDS (9.7-12.2) 09/20/16 06:23 INR 1.1 09/20/16 06:23 APTT 28 SECONDS (21-34) 09/20/16 06:23 - Head Exam Head Exam: ATRAUMATIC, NORMAL INSPECTION - Eye Exam Eye Exam: EOMI, PERRL - ENT Exam ENT Exam: Mucous Membranes Moist - Neck Exam Neck Exam: Full ROM - Respiratory Exam Respiratory Exam: Clear to Ausculation Bilateral, NORMAL BREATHING PATTERN - Cardiovascular Exam Cardiovascular Exam: Irregular Rhythm, +S1, +S2 - GI/Abdominal Exam GI & Abdominal Exam: Soft, Normal Bowel Sounds - Neurological Exam Neurological Exam: Alert - Skin Skin Exam: Warm Assessment and Plan - Assessment and Plan (Free Text) Assessment: 1. Cardiomyopathy with low EF on LifeVest 2. CKD on HD 3. HTN 4. Thrombocytopenia No additional recommendations form Cardiology
[2016-10-01] MEDS: Latanoprost 2.5 ml Opht Soln OU SCH (22:28)
--- NOTE | 2016-10-02 01:17 | CON ---
DATE: The patient is located in room 354, bed A. HISTORY OF PRESENT ILLNESS: Mrs. Denise Garcia is 80 years old elderly female with a history of longstanding hypertension, rheumatoid arthritis, recently diagnosed TTP, thrombocytopenia and renal failure, CHF, respiratory failure status post intubation x2, status post plasmapheresis x3 sessions in the last 2 months, being dialyzed 3 times a week, Thursday, and Thursday. The patient is not in acute distress. No complaints. Resting comfortably. PHYSICAL EXAMINATION: GENERAL: Mrs. Denise Garcia is 80 years old elderly female, moderately built, moderately nourished. Not in distress. VITAL SIGNS: Blood pressure 125/77, pulse 102, respiration 20, temperature 98.5 and saturation 95%. Height 5 feet 2 inches and weight 120 pounds. HEENT: Pupils normal, reactive to light and accommodation. Conjunctivae pink. Sclerae anicteric. Trachea is midline. LUNGS: Symmetric on both sides. Bilateral breath sounds present. Clear to auscultation. CARDIOVASCULAR: [place] at the fifth intercostal space, midclavicular line. S1 and S2 audible. No murmur or gallop. ABDOMEN: Normal in appearance, soft and tympanic. No guarding. No rigidity. No hepatosplenomegaly. CENTRAL NERVOUS SYSTEM: Awake. Following simple commands. EXTREMITIES: No cyanosis, no clubbing, no edema. CURRENT MEDICATIONS: Include as follows: Hydralazine 10 mg q.i.d., Flagyl 500 mg q. 8 hours, heparin 1700 units in each port of the PermCath post-dialysis, Megace 40 mg p.o. daily, Pepcid 20 mg daily and vancomycin 250 mg p.o. q. 6 hours. LABORATORY DATA: No new labs are available as of 09/30/2016, H and H 9.9/31.4 and platelets 140. As of 10/01/2016, stool for C. difficile toxin is positive. As of 09/30/2016, BUN and creatinine 40/6.8. ASSESSMENT: In summary, Mrs. Denise Garcia is a 80 years old elderly female with a history of hypertension, cardiomyopathy, rheumatoid arthritis, thrombotic thrombocytopenic purpura, renal failure on hemodialysis 3 times a week. Stool Clostridium difficile toxin is positive. 1. Renal failure most likely end-stage renal disease, cannot rule out thrombotic microangiopathy secondary to thrombotic thrombocytopenic purpura, cannot rule out acute tubular necrosis less likely the patient is on dialysis dependent for the last 2 months. 2. Cardiomyopathy. 3. Thrombotic thrombocytopenic purpura. 4. Clostridium difficile colitis. 5. Hypertension. Continue her current blood pressure medicine, nitro paste and hydralazine. Continue vancomycin and Flagyl. For hemodialysis in a.m. and follow up with farm demonstrator Dr. Montanez. Thank you for allowing me to participate in your patient's care. Horacio Graham MD
[2016-10-02] MEDS: metroNIDAZOLE IV 500 mg/100 ml 500 MG/100 ML BAG IVPB SCH ×4 (02:52→19:50)
[2016-10-02] MEDS: Nitroglycerin 2% Ointment Foilpak UD TOP SCH ×4 (04:00→21:52)
[2016-10-02] MEDS: Vancomycin 125 MG/5 ML SOLN (ORAL/RECTAL) PO SCH ×6 (05:37→23:53)
--- NOTE | 2016-10-02 16:16 | CP.PCM.PN ---
Subjective - Date & Time of Evaluation Date of Evaluation: 10/01/16 Time of Evaluation: 19:00 - Subjective Subjective: Appears comfortable Objective - Vital Signs/Intake and Output Vital Signs (last 24 hours): Temp Pulse Resp BP Pulse Ox 99.1 F 98 H 16 114/65 98 10/02/16 12:00 10/02/16 12:00 10/02/16 12:00 10/02/16 12:00 10/02/16 12:00 Intake and Output: 10/02/16 10/02/16 06:59 18:59 Intake Total 380 340 Balance 380 340 - Medications Medications: Current Medications Famotidine (Pepcid) 20 mg IVP DAILY [facility] Last Admin: 10/02/16 12:41 Dose: 20 mg Heparin Sodium (Porcine) (Heparin) 3,400 units IVP TTS [facility] Last Admin: 10/02/16 11:55 Dose: 3,400 units Hydralazine HCl (Apresoline) 10 mg PO QID [facility] Last Admin: 10/02/16 14:22 Dose: Not Given Metronidazole (Flagyl) 500 mg in 100 mls @ 100 mls/hr IVPB Q8H [facility] Last Admin: 10/02/16 12:40 Dose: 100 mls/hr Latanoprost (Xalatan Opht) 0 ml OU HS [facility] Last Admin: 10/01/16 22:28 Dose: 2.5 ml Megestrol Acetate (Megace) 40 mg PO DAILY [facility] Last Admin: 10/02/16 12:41 Dose: 40 mg Nitroglycerin (Nitro-Bid 2% Oint) 1 ea TOP Q6H [facility] Last Admin: 10/02/16 09:12 Dose: Not Given Saliva Substitute (First Magic Mouthwash) 5 ml PO QID PRN PRN Reason: sore mouth Last Admin: 10/01/16 20:34 Dose: 5 ml Vancomycin HCl (Vancocin (Oral Or Rectal Use)) 250 mg PO Q6 [facility] Last Admin: 10/02/16 13:18 Dose: 250 mg - Labs Labs: 09/30/16 06:12 09/30/16 06:12 PT 11.9 SECONDS (9.7-12.2) 09/20/16 06:23 INR 1.1 09/20/16 06:23 APTT 28 SECONDS (21-34) 09/20/16 06:23 - Head Exam Head Exam: ATRAUMATIC - Eye Exam Eye Exam: Normal appearance - ENT Exam ENT Exam: Mucous Membranes Dry - Respiratory Exam Respiratory Exam: NORMAL BREATHING PATTERN - Cardiovascular Exam Cardiovascular Exam: +S1, +S2 - GI/Abdominal Exam GI & Abdominal Exam: Normal Bowel Sounds - Extremities Exam Extremities Exam: Normal Inspection Assessment and Plan (1) TTP (thrombotic thrombocytopenic purpura) Assessment & Plan: refractory to plasmapheresis s/p 1 dose Rituximab with improved plt count redosing of Rituximab held due to C.diff infection; will redose once infection cleared Status: Acute
--- NOTE | 2016-10-02 16:17 | CP.PCM.PN ---
Subjective - Date & Time of Evaluation Date of Evaluation: 10/02/16 Time of Evaluation: 15:00 - Subjective Subjective: Appears comfortable Objective - Vital Signs/Intake and Output Vital Signs (last 24 hours): Temp Pulse Resp BP Pulse Ox 99.1 F 98 H 16 114/65 98 10/02/16 12:00 10/02/16 12:00 10/02/16 12:00 10/02/16 12:00 10/02/16 12:00 Intake and Output: 10/02/16 10/02/16 06:59 18:59 Intake Total 380 340 Balance 380 340 - Medications Medications: Current Medications Famotidine (Pepcid) 20 mg IVP DAILY [facility] Last Admin: 10/02/16 12:41 Dose: 20 mg Heparin Sodium (Porcine) (Heparin) 3,400 units IVP TTS [facility] Last Admin: 10/02/16 11:55 Dose: 3,400 units Hydralazine HCl (Apresoline) 10 mg PO QID [facility] Last Admin: 10/02/16 14:22 Dose: Not Given Metronidazole (Flagyl) 500 mg in 100 mls @ 100 mls/hr IVPB Q8H [facility] Last Admin: 10/02/16 12:40 Dose: 100 mls/hr Latanoprost (Xalatan Opht) 0 ml OU HS [facility] Last Admin: 10/01/16 22:28 Dose: 2.5 ml Megestrol Acetate (Megace) 40 mg PO DAILY [facility] Last Admin: 10/02/16 12:41 Dose: 40 mg Nitroglycerin (Nitro-Bid 2% Oint) 1 ea TOP Q6H [facility] Last Admin: 10/02/16 09:12 Dose: Not Given Saliva Substitute (First Magic Mouthwash) 5 ml PO QID PRN PRN Reason: sore mouth Last Admin: 10/01/16 20:34 Dose: 5 ml Vancomycin HCl (Vancocin (Oral Or Rectal Use)) 250 mg PO Q6 [facility] Last Admin: 10/02/16 13:18 Dose: 250 mg - Labs Labs: 09/30/16 06:12 09/30/16 06:12 PT 11.9 SECONDS (9.7-12.2) 09/20/16 06:23 INR 1.1 09/20/16 06:23 APTT 28 SECONDS (21-34) 09/20/16 06:23 - Head Exam Head Exam: ATRAUMATIC - Eye Exam Eye Exam: Normal appearance - ENT Exam ENT Exam: Mucous Membranes Dry - Respiratory Exam Respiratory Exam: NORMAL BREATHING PATTERN - Cardiovascular Exam Cardiovascular Exam: +S1, +S2 - GI/Abdominal Exam GI & Abdominal Exam: Normal Bowel Sounds - Extremities Exam Extremities Exam: Normal Inspection Assessment and Plan (1) TTP (thrombotic thrombocytopenic purpura) Assessment & Plan: refractory to plasmapheresis s/p 1 dose of rituximab with improved plt count redosing of rituximab held due to C.diff infection; will redose once infection clears Status: Acute
--- NOTE | 2016-10-02 17:54 | CP.PCM.PN ---
Subjective - Date & Time of Evaluation Date of Evaluation: 10/02/16 Time of Evaluation: 17:53 - Subjective Subjective: pt is seen and examined, follow up consult is dictated #[id number] stable hd tx Objective - Vital Signs/Intake and Output Vital Signs (last 24 hours): Temp Pulse Resp BP Pulse Ox 99.1 F 98 H 16 114/65 98 10/02/16 12:00 10/02/16 12:00 10/02/16 12:00 10/02/16 12:00 10/02/16 12:00 Intake and Output: 10/02/16 10/02/16 06:59 18:59 Intake Total 380 340 Balance 380 340 - Medications Medications: Current Medications Famotidine (Pepcid) 20 mg IVP DAILY [facility] Last Admin: 10/02/16 12:41 Dose: 20 mg Heparin Sodium (Porcine) (Heparin) 3,400 units IVP TTS [facility] Last Admin: 10/02/16 11:55 Dose: 3,400 units Hydralazine HCl (Apresoline) 10 mg PO QID [facility] Last Admin: 10/02/16 17:44 Dose: 10 mg Metronidazole (Flagyl) 500 mg in 100 mls @ 100 mls/hr IVPB Q8H [facility] Last Admin: 10/02/16 12:40 Dose: 100 mls/hr Latanoprost (Xalatan Opht) 0 ml OU HS [facility] Last Admin: 10/01/16 22:28 Dose: 2.5 ml Megestrol Acetate (Megace) 40 mg PO DAILY [facility] Last Admin: 10/02/16 12:41 Dose: 40 mg Nitroglycerin (Nitro-Bid 2% Oint) 1 ea TOP Q6H [facility] Last Admin: 10/02/16 16:50 Dose: Not Given Saliva Substitute (First Magic Mouthwash) 5 ml PO QID PRN PRN Reason: sore mouth Last Admin: 10/01/16 20:34 Dose: 5 ml Vancomycin HCl (Vancocin (Oral Or Rectal Use)) 250 mg PO Q6 [facility] Last Admin: 10/02/16 17:49 Dose: 250 mg - Labs Labs: 09/30/16 06:12 09/30/16 06:12 PT 11.9 SECONDS (9.7-12.2) 09/20/16 06:23 INR 1.1 09/20/16 06:23 APTT 28 SECONDS (21-34) 09/20/16 06:23
--- NOTE | 2016-10-02 19:35 | CP.PCM.PN ---
Subjective - Date & Time of Evaluation Date of Evaluation: 10/02/16 Time of Evaluation: 09:00 - Subjective Subjective: comfortable nad Objective - Vital Signs/Intake and Output Vital Signs (last 24 hours): Temp Pulse Resp BP Pulse Ox 99.1 F 98 H 16 114/65 98 10/02/16 12:00 10/02/16 12:00 10/02/16 12:00 10/02/16 12:00 10/02/16 12:00 Intake and Output: 10/02/16 10/03/16 18:59 06:59 Intake Total 340 Balance 340 - Medications Medications: Current Medications Famotidine (Pepcid) 20 mg IVP DAILY [facility] Last Admin: 10/02/16 12:41 Dose: 20 mg Heparin Sodium (Porcine) (Heparin) 3,400 units IVP TTS [facility] Last Admin: 10/02/16 11:55 Dose: 3,400 units Hydralazine HCl (Apresoline) 10 mg PO QID [facility] Last Admin: 10/02/16 17:44 Dose: 10 mg Metronidazole (Flagyl) 500 mg in 100 mls @ 100 mls/hr IVPB Q8H [facility] Last Admin: 10/02/16 12:40 Dose: 100 mls/hr Latanoprost (Xalatan Opht) 0 ml OU HS [facility] Last Admin: 10/01/16 22:28 Dose: 2.5 ml Megestrol Acetate (Megace) 40 mg PO DAILY [facility] Last Admin: 10/02/16 12:41 Dose: 40 mg Nitroglycerin (Nitro-Bid 2% Oint) 1 ea TOP Q6H [facility] Last Admin: 10/02/16 16:50 Dose: Not Given Saliva Substitute (First Magic Mouthwash) 5 ml PO QID PRN PRN Reason: sore mouth Last Admin: 10/01/16 20:34 Dose: 5 ml Vancomycin HCl (Vancocin (Oral Or Rectal Use)) 250 mg PO Q6 [facility] Last Admin: 10/02/16 17:49 Dose: 250 mg - Labs Labs: 09/30/16 06:12 09/30/16 06:12 PT 11.9 SECONDS (9.7-12.2) 09/20/16 06:23 INR 1.1 09/20/16 06:23 APTT 28 SECONDS (21-34) 09/20/16 06:23 - Constitutional Appears: Non-toxic - Head Exam Head Exam: NORMOCEPHALIC - Eye Exam Eye Exam: PERRL - ENT Exam ENT Exam: Mucous Membranes Dry - Neck Exam Neck Exam: absent: Lymphadenopathy - Respiratory Exam Respiratory Exam: Decreased Breath Sounds - Cardiovascular Exam Cardiovascular Exam: REGULAR RHYTHM - GI/Abdominal Exam GI & Abdominal Exam: Distended, Soft - Rectal Exam Rectal Exam: Deferred - Exam Exam: NORMAL INSPECTION Assessment and Plan (1) Cardiac dysrhythmia Status: Acute (2) ESRD (end stage renal disease) on dialysis Status: Acute (3) Pulmonary edema Status: Acute (4) Acute respiratory failure requiring reintubation Status: Acute (5) Arthritis Status: Acute (6) CHF (congestive heart failure) Status: Acute (7) Dehydration Status: Acute (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
[2016-10-02] MEDS: Latanoprost 2.5 ml Opht Soln OU SCH (21:56)
--- NOTE | 2016-10-02 23:38 | CP.PCM.PN ---
Subjective - Date & Time of Evaluation Date of Evaluation: 10/02/16 Time of Evaluation: 17:15 - Subjective Subjective: Patient seen and evaluated Comfortable Objective - Vital Signs/Intake and Output Vital Signs (last 24 hours): Temp Pulse Resp BP Pulse Ox 99.1 F 98 H 16 114/65 98 10/02/16 12:00 10/02/16 12:00 10/02/16 12:00 10/02/16 12:00 10/02/16 12:00 Intake and Output: 10/02/16 10/03/16 18:59 06:59 Intake Total 340 300 Balance 340 300 - Medications Medications: Current Medications Famotidine (Pepcid) 20 mg IVP DAILY [facility] Last Admin: 10/02/16 12:41 Dose: 20 mg Heparin Sodium (Porcine) (Heparin) 3,400 units IVP TTS [facility] Last Admin: 10/02/16 11:55 Dose: 3,400 units Hydralazine HCl (Apresoline) 10 mg PO QID [facility] Last Admin: 10/02/16 21:52 Dose: 10 mg Metronidazole (Flagyl) 500 mg in 100 mls @ 100 mls/hr IVPB Q8H [facility] Last Admin: 10/02/16 19:50 Dose: 100 mls/hr Latanoprost (Xalatan Opht) 0 ml OU HS [facility] Last Admin: 10/02/16 21:56 Dose: 2.5 ml Megestrol Acetate (Megace) 40 mg PO DAILY [facility] Last Admin: 10/02/16 12:41 Dose: 40 mg Nitroglycerin (Nitro-Bid 2% Oint) 1 ea TOP Q6H [facility] Last Admin: 10/02/16 21:52 Dose: 1 ea Saliva Substitute (First Magic Mouthwash) 5 ml PO QID PRN PRN Reason: sore mouth Last Admin: 10/01/16 20:34 Dose: 5 ml Vancomycin HCl (Vancocin (Oral Or Rectal Use)) 250 mg PO Q6 [facility] Last Admin: 10/02/16 17:49 Dose: 250 mg - Labs Labs: 09/30/16 06:12 09/30/16 06:12 PT 11.9 SECONDS (9.7-12.2) 09/20/16 06:23 INR 1.1 09/20/16 06:23 APTT 28 SECONDS (21-34) 09/20/16 06:23
[2016-10-03] MEDS: metroNIDAZOLE IV 500 mg/100 ml 500 MG/100 ML BAG IVPB SCH ×3 (02:45→19:17)
[2016-10-03] MEDS: Nitroglycerin 2% Ointment Foilpak UD TOP SCH ×4 (04:35→21:43)
[2016-10-03] MEDS: Vancomycin 125 MG/5 ML SOLN (ORAL/RECTAL) PO SCH ×3 (05:50→17:53)
--- NOTE | 2016-10-03 12:52 | CON ---
FOLLOWUP RENAL CONSULTATION LOCATION: The patient is located in room 354, bed A. REQUESTED BY: Kavon Ureña MD REASON FOR FOLLOWUP: End-stage renal disease and for continuation of the hemodialysis. HISTORY OF PRESENT ILLNESS: Ms. 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 The patient was developing thrombocytopenia. After completion of the plasmapheresis, the patient was given 1 dose of rituximab on 09/30/2016 after hemodialysis. The patient is not in acute distress. Denies any compliance. The patient's family at bedside, responding appropriately. PHYSICAL EXAMINATION VITAL SIGNS: As follows: Blood pressure 114/65, pulse 98, respirations 16, temperature 99.1, and saturation 98%. Height 5 feet 2 inches and weight is 120 pounds. GENERAL: Ms. Denise Garcia is an 80 years old elderly female, well built, well nourished, not in distress. HEENT: Pupils normal, reactive to light and accommodation. Conjunctivae pink. Sclerae anicteric. Tongue is moist. Trachea is midline. LUNGS: Symmetry on both sides. Bilateral breath sounds present. Clear on auscultation. CARDIOVASCULAR: [place] at the fifth intercostal space, midclavicular line. S1 and S2 audible. No murmur. No gallop. ABDOMEN: Normal in appearance. Soft and tympanic. No guarding. No rigidity. No hepatosplenomegaly. CENTRAL NERVOUS SYSTEM: The patient is alert, awake, and oriented x2. Sensory and motor systems are grossly within normal limits. EXTREMITIES: No cyanosis. No clubbing. No edema. CURRENT MEDICATIONS: Include hydralazine 10 mg p.o. q.i.d., Flagyl 500 mg IV piggyback q. 8 hours subcu, megestrol 40 mg p.o. daily, heparin 1700 units in each port PermCath, Nitro-Bid 2% q. 6 hours, Pepcid 20 mg IV daily, vancomycin 250 mg p.o. q. 6 hours, and Xalatan eye drops. LABORATORY DATA: As of 09/30/2016, WBC 10.3, hemoglobin 9.9, hematocrit 31.4, platelets 140, neutrophils 88, lymph 7, monos 4, eosinophil 1. Sodium 140, potassium 4.8, chloride 100, CO2 of 26, BUN 40, creatinine 6.8, glucose 89, calcium 9.2, phosphorus 3.5, and total bili 0.5, AST 23, ALT 32, alkaline phosphatase 98, total protein 6.6, albumin 3.5. As of 10/01/2016, stool for C. difficile toxin is positive. SUMMARY: Ms. Denise Garcia is an 80 years old elderly female with atrial fibrillation, hypertension, rheumatoid arthritis, congestive heart failure, cardiomyopathy, respiratory failure, status post intubation x2, thrombocytopenia diagnosed as TTP with recurrence or relapsing thrombocytopenia, status post plasmapheresis x3 with renal failure, on hemodialysis for the last 2 months. ASSESSMENT: 1. 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 The patient family refused kidney biopsy in the past and cannot rule out severe acute tubular necrosis less likely. 2. Hypertension. Blood pressure is stable. Continue hydralazine and Nitro-Bid. 3. Cardiomyopathy. 4. 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 PLAN: Status post rituximab x1 dose. Continue to follow with tube teller for further recommendation and continue vancomycin and Flagyl for C. diff colitis and repeat CBC, BMP on Thursday prior to the hemodialysis. The patient underwent hemodialysis today. I had ultrafiltration about 2 L. Thank you for allowing me to participate in our patient's care. Horacio Graham MD [facility]
--- NOTE | 2016-10-03 13:24 | CP.PCM.PN ---
Subjective - Date & Time of Evaluation Date of Evaluation: 10/03/16 Time of Evaluation: 12:15 - Subjective Subjective: Appears comfortable Rituximab Thursday if cleared by ID Objective - Vital Signs/Intake and Output Vital Signs (last 24 hours): Temp Pulse Resp BP Pulse Ox 98.4 F 86 20 118/78 96 10/03/16 08:21 10/03/16 08:21 10/03/16 08:21 10/03/16 08:21 10/03/16 08:21 Intake and Output: 10/03/16 10/03/16 06:59 18:59 Intake Total 520 Balance 520 - Medications Medications: Current Medications Famotidine (Pepcid) 20 mg IVP DAILY [facility] Last Admin: 10/03/16 09:56 Dose: 20 mg Hydralazine HCl (Apresoline) 10 mg PO QID [facility] Last Admin: 10/03/16 09:56 Dose: 10 mg Metronidazole (Flagyl) 500 mg in 100 mls @ 100 mls/hr IVPB Q8H [facility] Last Admin: 10/03/16 02:45 Dose: 100 mls/hr Latanoprost (Xalatan Opht) 0 ml OU HS [facility] Last Admin: 10/02/16 21:56 Dose: 2.5 ml Megestrol Acetate (Megace) 40 mg PO DAILY [facility] Last Admin: 10/03/16 09:57 Dose: 40 mg Nitroglycerin (Nitro-Bid 2% Oint) 1 ea TOP Q6H [facility] Last Admin: 10/03/16 09:57 Dose: Not Given Saliva Substitute (First Magic Mouthwash) 5 ml PO QID PRN PRN Reason: sore mouth Last Admin: 10/01/16 20:34 Dose: 5 ml Vancomycin HCl (Vancocin (Oral Or Rectal Use)) 250 mg PO Q6 [facility] Last Admin: 10/03/16 05:50 Dose: 250 mg - Labs Labs: 09/30/16 06:12 09/30/16 06:12 PT 11.9 SECONDS (9.7-12.2) 09/20/16 06:23 INR 1.1 09/20/16 06:23 APTT 28 SECONDS (21-34) 09/20/16 06:23 - Head Exam Head Exam: ATRAUMATIC - Eye Exam Eye Exam: Normal appearance - ENT Exam ENT Exam: Mucous Membranes Dry - Respiratory Exam Respiratory Exam: NORMAL BREATHING PATTERN - Cardiovascular Exam Cardiovascular Exam: +S1, +S2 - GI/Abdominal Exam GI & Abdominal Exam: Normal Bowel Sounds - Extremities Exam Extremities Exam: Pedal Edema Assessment and Plan (1) TTP (thrombotic thrombocytopenic purpura) Assessment & Plan: refractory to plasmapheresis s/p 1 dose Rituximab; 2nd dose held for C.diff infection will redose Rituximab Thursday if cleared by ID Status: Acute
--- NOTE | 2016-10-03 14:48 | CP.PCM.PN ---
Subjective - Date & Time of Evaluation Date of Evaluation: 10/03/16 Time of Evaluation: 14:48 Objective - Vital Signs/Intake and Output Vital Signs (last 24 hours): Temp Pulse Resp BP Pulse Ox 98.4 F 86 20 118/78 96 10/03/16 08:21 10/03/16 08:21 10/03/16 08:21 10/03/16 08:21 10/03/16 08:21 Intake and Output: 10/03/16 10/03/16 06:59 18:59 Intake Total 520 Balance 520 - Medications Medications: Current Medications Famotidine (Pepcid) 20 mg IVP DAILY [facility] Last Admin: 10/03/16 09:56 Dose: 20 mg Hydralazine HCl (Apresoline) 10 mg PO QID [facility] Last Admin: 10/03/16 14:43 Dose: Not Given Metronidazole (Flagyl) 500 mg in 100 mls @ 100 mls/hr IVPB Q8H [facility] Last Admin: 10/03/16 11:00 Dose: 100 mls/hr Latanoprost (Xalatan Opht) 0 ml OU HS [facility] Last Admin: 10/02/16 21:56 Dose: 2.5 ml Megestrol Acetate (Megace) 40 mg PO DAILY [facility] Last Admin: 10/03/16 09:57 Dose: 40 mg Nitroglycerin (Nitro-Bid 2% Oint) 1 ea TOP Q6H [facility] Last Admin: 10/03/16 09:57 Dose: Not Given Saliva Substitute (First Magic Mouthwash) 5 ml PO QID PRN PRN Reason: sore mouth Last Admin: 10/01/16 20:34 Dose: 5 ml Vancomycin HCl (Vancocin (Oral Or Rectal Use)) 250 mg PO Q6 [facility] Last Admin: 10/03/16 12:00 Dose: 250 mg - Labs Labs: 09/30/16 06:12 09/30/16 06:12 PT 11.9 SECONDS (9.7-12.2) 09/20/16 06:23 INR 1.1 09/20/16 06:23 APTT 28 SECONDS (21-34) 09/20/16 06:23
--- NOTE | 2016-10-03 19:03 | CP.PCM.PN ---
Subjective - Date & Time of Evaluation Date of Evaluation: 10/03/16 Time of Evaluation: 09:00 - Subjective Subjective: improving less diarrhea more awake no fever Objective - Vital Signs/Intake and Output Vital Signs (last 24 hours): Temp Pulse Resp BP Pulse Ox 97.8 F 91 H 20 116/71 98 10/03/16 15:00 10/03/16 15:00 10/03/16 15:00 10/03/16 15:00 10/03/16 15:00 Intake and Output: 10/03/16 10/04/16 18:59 06:59 Intake Total 150 Balance 150 - Medications Medications: Current Medications Famotidine (Pepcid) 20 mg IVP DAILY [facility] Last Admin: 10/03/16 09:56 Dose: 20 mg Hydralazine HCl (Apresoline) 10 mg PO QID [facility] Last Admin: 10/03/16 17:58 Dose: 10 mg Metronidazole (Flagyl) 500 mg in 100 mls @ 100 mls/hr IVPB Q8H [facility] Last Admin: 10/03/16 11:00 Dose: 100 mls/hr Latanoprost (Xalatan Opht) 0 ml OU HS [facility] Last Admin: 10/02/16 21:56 Dose: 2.5 ml Megestrol Acetate (Megace) 40 mg PO DAILY [facility] Last Admin: 10/03/16 09:57 Dose: 40 mg Nitroglycerin (Nitro-Bid 2% Oint) 1 ea TOP Q6H [facility] Last Admin: 10/03/16 17:54 Dose: Not Given Saliva Substitute (First Magic Mouthwash) 5 ml PO QID PRN PRN Reason: sore mouth Last Admin: 10/01/16 20:34 Dose: 5 ml Vancomycin HCl (Vancocin (Oral Or Rectal Use)) 250 mg PO Q6 [facility] Last Admin: 10/03/16 17:53 Dose: 250 mg - Labs Labs: 09/30/16 06:12 09/30/16 06:12 PT 11.9 SECONDS (9.7-12.2) 09/20/16 06:23 INR 1.1 09/20/16 06:23 APTT 28 SECONDS (21-34) 09/20/16 06:23 - Constitutional Appears: Non-toxic, Chronically Ill - Head Exam Head Exam: NORMOCEPHALIC - Eye Exam Eye Exam: absent: Scleral icterus - ENT Exam ENT Exam: Mucous Membranes Dry - Neck Exam Neck Exam: absent: Lymphadenopathy - Respiratory Exam Respiratory Exam: Decreased Breath Sounds - Cardiovascular Exam Cardiovascular Exam: REGULAR RHYTHM - GI/Abdominal Exam GI & Abdominal Exam: Distended, Soft Assessment and Plan (1) Cardiac dysrhythmia Status: Acute (2) ESRD (end stage renal disease) on dialysis Status: Acute (3) Pulmonary edema Status: Acute (4) Acute respiratory failure requiring reintubation Status: Acute (5) Arthritis Status: Acute (6) CHF (congestive heart failure) Status: Acute (7) Dehydration Status: Acute (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 - Assessment and Plan (Free Text) Assessment: cont rx c diff
--- NOTE | 2016-10-03 20:34 | CP.PCM.PN ---
Subjective - Date & Time of Evaluation Date of Evaluation: 10/03/16 Time of Evaluation: 11:30 - Subjective Subjective: pt is seen and examined, follow up consult is dictated #[id number] for hd in am check lanbs in am Objective - Vital Signs/Intake and Output Vital Signs (last 24 hours): Temp Pulse Resp BP Pulse Ox 97.8 F 91 H 20 116/71 98 10/03/16 15:00 10/03/16 15:00 10/03/16 15:00 10/03/16 15:00 10/03/16 15:00 Intake and Output: 10/03/16 10/04/16 18:59 06:59 Intake Total 150 Balance 150 - Medications Medications: Current Medications Famotidine (Pepcid) 20 mg IVP DAILY [facility] Last Admin: 10/03/16 09:56 Dose: 20 mg Hydralazine HCl (Apresoline) 10 mg PO QID [facility] Last Admin: 10/03/16 17:58 Dose: 10 mg Metronidazole (Flagyl) 500 mg in 100 mls @ 100 mls/hr IVPB Q8H [facility] Last Admin: 10/03/16 19:17 Dose: 100 mls/hr Latanoprost (Xalatan Opht) 0 ml OU HS [facility] Last Admin: 10/02/16 21:56 Dose: 2.5 ml Megestrol Acetate (Megace) 40 mg PO DAILY [facility] Last Admin: 10/03/16 09:57 Dose: 40 mg Nitroglycerin (Nitro-Bid 2% Oint) 1 ea TOP Q6H [facility] Last Admin: 10/03/16 17:54 Dose: Not Given Saliva Substitute (First Magic Mouthwash) 5 ml PO QID PRN PRN Reason: sore mouth Last Admin: 10/01/16 20:34 Dose: 5 ml Vancomycin HCl (Vancocin (Oral Or Rectal Use)) 250 mg PO Q6 [facility] Last Admin: 10/03/16 17:53 Dose: 250 mg - Labs Labs: 09/30/16 06:12 09/30/16 06:12 PT 11.9 SECONDS (9.7-12.2) 09/20/16 06:23 INR 1.1 09/20/16 06:23 APTT 28 SECONDS (21-34) 09/20/16 06:23
[2016-10-03] MEDS: Latanoprost 2.5 ml Opht Soln OU SCH (21:44)
--- NOTE | 2016-10-03 22:14 | CP.PCM.PN ---
Subjective - Date & Time of Evaluation Date of Evaluation: 10/03/16 Time of Evaluation: 07:30 - Subjective Subjective: Patient seen and evaluated Comfortable Continue current meds Objective - Vital Signs/Intake and Output Vital Signs (last 24 hours): Temp Pulse Resp BP Pulse Ox 97.8 F 91 H 20 116/71 98 10/03/16 15:00 10/03/16 15:00 10/03/16 15:00 10/03/16 15:00 10/03/16 15:00 Intake and Output: 10/03/16 10/04/16 18:59 06:59 Intake Total 150 Balance 150 - Medications Medications: Current Medications Famotidine (Pepcid) 20 mg IVP DAILY [facility] Last Admin: 10/03/16 09:56 Dose: 20 mg Hydralazine HCl (Apresoline) 10 mg PO QID [facility] Last Admin: 10/03/16 21:45 Dose: 10 mg Metronidazole (Flagyl) 500 mg in 100 mls @ 100 mls/hr IVPB Q8H [facility] Last Admin: 10/03/16 19:17 Dose: 100 mls/hr Latanoprost (Xalatan Opht) 0 ml OU HS [facility] Last Admin: 10/03/16 21:44 Dose: 2.5 ml Megestrol Acetate (Megace) 40 mg PO DAILY [facility] Last Admin: 10/03/16 09:57 Dose: 40 mg Saliva Substitute (First Magic Mouthwash) 5 ml PO QID PRN PRN Reason: sore mouth Last Admin: 10/01/16 20:34 Dose: 5 ml Vancomycin HCl (Vancocin (Oral Or Rectal Use)) 250 mg PO Q6 [facility] Last Admin: 10/03/16 17:53 Dose: 250 mg - Labs Labs: 09/30/16 06:12 09/30/16 06:12 PT 11.9 SECONDS (9.7-12.2) 09/20/16 06:23 INR 1.1 09/20/16 06:23 APTT 28 SECONDS (21-34) 09/20/16 06:23 - Head Exam Head Exam: ATRAUMATIC - Eye Exam Eye Exam: EOMI, PERRL - ENT Exam ENT Exam: Mucous Membranes Moist - Neck Exam Neck Exam: Full ROM - Cardiovascular Exam Cardiovascular Exam: REGULAR RHYTHM, +S1, +S2 - GI/Abdominal Exam GI & Abdominal Exam: Soft, Normal Bowel Sounds - Extremities Exam Extremities Exam: Full ROM - Neurological Exam Neurological Exam: Awake - Skin Skin Exam: Warm Assessment and Plan - Assessment and Plan (Free Text) Assessment: 1. Chronic systolic CHF 2. CRF 3. HTN 4. Dyspnea Continue current meds
[2016-10-04] MEDS: Vancomycin 125 MG/5 ML SOLN (ORAL/RECTAL) PO SCH ×4 (00:28→17:56)
--- NOTE | 2016-10-04 02:22 | PN ---
DATE: LOCATION: The patient is located in room 354, bed A. REQUESTED BY: Kavon Ureña MD REASON FOR FOLLOWUP: End-stage renal disease and continuation of the hemodialysis. SUBJECTIVE: Ms. Denise Garcia is an 80-year-old elderly female with a past medical history significant for hypertension, rheumatoid arthritis, cardiomyopathy, CHF, thrombocytopenia, TTP diagnosed about 2 months ago with relapsing with plasmapheresis and renal failure, on hemodialysis for the last 2 months was treated with plasmapheresis x3 sessions in the last two and half months. The patient also received one dose of rituximab on 09/30/2016 after dialysis. The patient was found to have C. diff colitis on isolation. The patient is not in acute distress, feeling better, no chest pain, no palpitations, no fever, no cough. PHYSICAL EXAMINATION: GENERAL: Ms. Denise Garcia is an 80-year-old elderly female, moderately built, moderately nourished, not in acute distress. VITAL SIGNS: Blood pressure this morning was 118/78, pulse 86, respirations 20, and temperature 98.4, saturation 96%, height 5 feet 2 inches, and weight is 120 pounds. HEENT: Pupils normal, reactive to light and accommodation. Conjunctivae pink. Sclerae anicteric. Tongue is moist. Trachea is midline. LUNGS: Symmetry on both sides. Bilateral breath sounds present. Clear on auscultation. CARDIOVASCULAR: [place] at the fifth intercostal space, midclavicular line. S1 and S2 audible. No murmur. No gallop. ABDOMEN: Normal in appearance. Soft and tympanic. No guarding. No rigidity. No hepatosplenomegaly. CENTRAL NERVOUS SYSTEM: The patient is alert, awake, and oriented x2. Sensory and motor systems are grossly within normal limits. EXTREMITIES: No cyanosis. No clubbing. No edema. LABORATORY DATA: No new labs are available for today. MEDICATIONS: Include as follows; hydralazine 10 mg p.o. q.i.d., Flagyl 500 mg IV q. 8 hours, Megace 40 mg p.o. daily, Nitro-Bid ointment one inch topical q. 6 hours, vancomycin 250 mg p.o. q. 6 hours, and Xalatan eye drops. ASSESSMENT AND PLAN: In summary, Ms. Walker Garcia is an 80-year-old elderly female with history of hypertension, rheumatoid arthritis, cardiomyopathy, congestive heart failure, respiratory failure, status post intubation x2, renal failure, thrombocytopenia secondary to TTP, status post plasmapheresis x3 sessions, and end-stage renal disease on hemodialysis. 1. Renal failure, most likely secondary to thrombotic microangiopathy secondary to TTP. The patient is dialysis dependent for the last 2 months, continue hemodialysis 3 times a week, Thursday, , and Thursday. 2. Cardiomyopathy. 3. Hypertension. 4. Thrombocytopenia secondary to TTP, status post rituximab one dose on 09/30/2016. 5. Continue to follow with deployment specialist for further recommendations. 6. Clostridium difficile colitis, continue vancomycin and Flagyl as per ID recommendations. 7. Repeat labs in a.m., CMP, CBC. We will follow with you. Thank you for allowing me to participate in your patient's care. Horacio Graham MD
[2016-10-04] MEDS: metroNIDAZOLE IV 500 mg/100 ml 500 MG/100 ML BAG IVPB SCH ×3 (02:54→18:01)
--- NOTE | 2016-10-04 09:52 | CP.PCM.PN ---
Subjective - Date & Time of Evaluation Date of Evaluation: 10/04/16 Time of Evaluation: 09:20 - Subjective Subjective: clinically same Objective - Vital Signs/Intake and Output Vital Signs (last 24 hours): Temp Pulse Resp BP Pulse Ox 98.5 F 92 H 20 100/59 L 96 10/04/16 08:00 10/04/16 08:00 10/04/16 08:00 10/04/16 08:00 10/04/16 08:00 Intake and Output: 10/04/16 10/04/16 06:59 18:59 Intake Total 220 Balance 220 - Medications Medications: Current Medications Famotidine (Pepcid) 20 mg IVP DAILY [facility] Last Admin: 10/04/16 09:41 Dose: Not Given Hydralazine HCl (Apresoline) 10 mg PO QID [facility] Last Admin: 10/04/16 09:40 Dose: Not Given Metronidazole (Flagyl) 500 mg in 100 mls @ 100 mls/hr IVPB Q8H [facility] Last Admin: 10/04/16 02:54 Dose: 100 mls/hr Latanoprost (Xalatan Opht) 0 ml OU HS [facility] Last Admin: 10/03/16 21:44 Dose: 2.5 ml Megestrol Acetate (Megace) 40 mg PO DAILY [facility] Last Admin: 10/04/16 09:40 Dose: Not Given Saliva Substitute (First Magic Mouthwash) 5 ml PO QID PRN PRN Reason: sore mouth Last Admin: 10/01/16 20:34 Dose: 5 ml Vancomycin HCl (Vancocin (Oral Or Rectal Use)) 250 mg PO Q6 [facility] Last Admin: 10/04/16 05:21 Dose: 250 mg - Labs Labs: 09/30/16 06:12 09/30/16 06:12 PT 11.9 SECONDS (9.7-12.2) 09/20/16 06:23 INR 1.1 09/20/16 06:23 APTT 28 SECONDS (21-34) 09/20/16 06:23 - Constitutional Appears: Well - Head Exam Head Exam: ATRAUMATIC, NORMAL INSPECTION, NORMOCEPHALIC - Eye Exam Eye Exam: EOMI, Normal appearance, PERRL Pupil Exam: NORMAL ACCOMODATION, PERRL - ENT Exam ENT Exam: Mucous Membranes Moist, Normal Exam - Neck Exam Neck Exam: Full ROM, Normal Inspection. absent: Lymphadenopathy - Respiratory Exam Respiratory Exam: Decreased Breath Sounds - Cardiovascular Exam Cardiovascular Exam: REGULAR RHYTHM, +S1, +S2 - GI/Abdominal Exam GI & Abdominal Exam: Soft, Diminished Bowel Sounds - Rectal Exam Rectal Exam: Deferred Assessment and Plan (1) Cardiac dysrhythmia Status: Acute (2) ESRD (end stage renal disease) on dialysis Status: Acute (3) Pulmonary edema Status: Acute (4) MARCO (acute kidney injury) Status: Acute (5) Acute respiratory failure requiring reintubation Status: Acute (6) Arthritis Status: Acute (7) CHF (congestive heart failure) Status: Acute (8) Dehydration Status: Acute (9) Dehydration Status: Acute (10) Diverticulosis Status: Acute (11) Elevated CEA Status: Acute (12) Hypertension Status: Acute (13) Inguinal lymphadenopathy Status: Acute (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
--- NOTE | 2016-10-04 14:05 | CP.PCM.PN ---
Subjective - Date & Time of Evaluation Date of Evaluation: 10/04/16 Time of Evaluation: 14:05 - Subjective Subjective: pt seen and examined, follow up consult is dictated #[id number] stable hd tx, had a uf 1.5 lit Objective - Vital Signs/Intake and Output Vital Signs (last 24 hours): Temp Pulse Resp BP Pulse Ox 98.1 F 73 18 93/71 L 99 10/04/16 12:15 10/04/16 12:15 10/04/16 12:15 10/04/16 12:15 10/04/16 09:15 Intake and Output: 10/04/16 10/04/16 06:59 18:59 Intake Total 220 Balance 220 - Medications Medications: Current Medications Hydralazine HCl (Apresoline) 10 mg PO QID [facility] Last Admin: 10/04/16 09:40 Dose: Not Given Metronidazole (Flagyl) 500 mg in 100 mls @ 100 mls/hr IVPB Q8H [facility] Last Admin: 10/04/16 12:53 Dose: 100 mls/hr Latanoprost (Xalatan Opht) 0 ml OU HS [facility] Last Admin: 10/03/16 21:44 Dose: 2.5 ml Megestrol Acetate (Megace) 40 mg PO DAILY [facility] Last Admin: 10/04/16 09:40 Dose: Not Given Saliva Substitute (First Magic Mouthwash) 5 ml PO QID PRN PRN Reason: sore mouth Last Admin: 10/01/16 20:34 Dose: 5 ml Vancomycin HCl (Vancocin (Oral Or Rectal Use)) 250 mg PO Q6 [facility] Last Admin: 10/04/16 12:53 Dose: 250 mg - Labs Labs: 09/30/16 06:12 09/30/16 06:12 PT 11.9 SECONDS (9.7-12.2) 09/20/16 06:23 INR 1.1 09/20/16 06:23 APTT 28 SECONDS (21-34) 09/20/16 06:23
--- NOTE | 2016-10-04 16:24 | PN ---
DATE: FOLLOWUP RENAL CONSULTATION LOCATION: The patient is located in room 354, bed A. REQUESTED BY: Dr. Kavon Ureña. REASON FOR FOLLOWUP: End-stage renal disease, continuation of hemodialysis. SUBJECTIVE: Ms. Denise Garcia is an 80-year-old elderly female with a history of longstanding hypertension, rheumatoid arthritis, CHF, cardiomyopathy, thrombocytopenia , renal failure on hemodialysis three times a week for the last 2-1/2 months and status post plasmapheresis x3 sessions with relapsing TTP, status post rituximab x1 and the patient is being treated for C. diff colitis. The patient underwent hemodialysis today without any complication. Had a uf about 1.5 liters. The patient is not in acute distress and no complaints. PHYSICAL EXAMINATION: VITAL SIGNS: As follows; blood pressure 117/72, pulse 73, respirations about 18, temperature 98.1, saturation about 95%. GENERAL: Ms. Denise Garcia is an 80-year-old elderly female, moderately built, moderately nourished, not in acute distress. HEENT: Pupils normal, reactive to light and accommodation. Conjunctivae pink. Sclerae anicteric. Tongue is moist. Trachea is midline. LUNGS: Symmetry on both sides. Bilateral breath sounds present. Clear on auscultation. CARDIOVASCULAR SYSTEM: [place] at the fifth intercostal space, midclavicular line. S1 and S2 audible. No murmur. No gallop. ABDOMEN: Normal in appearance. Soft and tympanic. No guarding. No rigidity. No hepatosplenomegaly. CENTRAL NERVOUS SYSTEM: The patient is awake and following simple commands. EXTREMITIES: No cyanosis. No clubbing. No edema. CURRENT MEDICATIONS: Include as follows; hydralazine 10 mg p.o. q.i.d., Flagyl 500 mg q. 8 hours, Megace 40 mg daily, vancomycin 250 mg p.o. daily q. 6 hours, and eye drops. LABORATORY DATA: As follows; no new labs available and procalcitonin is 0.86 as of 10/04/2016. Previous labs as of 09/30/2016, H and H is 9.9 and 31.4. BUN and creatinine 14 and 6.8, calcium 9.2, phosphorus 3.5. ASSESSMENT: In summary, Ms. Denise Garcia is an 80-year-old elderly female with hypertension, cardiomyopathy, thrombotic thrombocytopenic purpura, status post plasmapheresis x3 sessions and relapsing thrombotic thrombocytopenic purpura, status post rituximab x1 dose, being treated for Clostridium difficile colitis with renal failure on hemodialysis. 1. 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 The patient is on dialysis dependent for the last 2-1/2 months. 2. Hypertension. 3. Anemia. 4. Cardiomyopathy. 5. Clostridium difficile colitis. Continue Flagyl and vancomycin and we will add Epogen 10,000 units subcutaneously three times a week and Nephrocaps one tablet p.o. daily. We will follow with you. Thank you for allowing me to participate in your patient's care. The patient underwent hemodialysis today. Had ultrafiltration about 1.5 liters and stable dialysis without any complications. Horacio Graham MD [email or web address]
--- NOTE | 2016-10-04 20:02 | CP.PCM.PN ---
Subjective - Date & Time of Evaluation Date of Evaluation: 10/04/16 Time of Evaluation: 16:00 - Subjective Subjective: Appears comfortable, family at bedside Objective - Vital Signs/Intake and Output Vital Signs (last 24 hours): Temp Pulse Resp BP Pulse Ox 98.7 F 96 H 22 103/53 L 94 L 10/04/16 15:00 10/04/16 15:00 10/04/16 15:00 10/04/16 15:00 10/04/16 15:00 Intake and Output: 10/04/16 10/05/16 18:59 06:59 Intake Total 580 Balance 580 - Medications Medications: Current Medications Hydralazine HCl (Apresoline) 10 mg PO QID [facility] Last Admin: 10/04/16 17:56 Dose: 10 mg Metronidazole (Flagyl) 500 mg in 100 mls @ 100 mls/hr IVPB Q8H [facility] Last Admin: 10/04/16 18:01 Dose: 100 mls/hr Latanoprost (Xalatan Opht) 0 ml OU HS [facility] Last Admin: 10/03/16 21:44 Dose: 2.5 ml Megestrol Acetate (Megace) 40 mg PO DAILY [facility] Last Admin: 10/04/16 09:40 Dose: Not Given Saliva Substitute (First Magic Mouthwash) 5 ml PO QID PRN PRN Reason: sore mouth Last Admin: 10/01/16 20:34 Dose: 5 ml Vancomycin HCl (Vancocin (Oral Or Rectal Use)) 250 mg PO Q6 [facility] Last Admin: 10/04/16 17:56 Dose: 250 mg - Labs Labs: 09/30/16 06:12 09/30/16 06:12 PT 11.9 SECONDS (9.7-12.2) 09/20/16 06:23 INR 1.1 09/20/16 06:23 APTT 28 SECONDS (21-34) 09/20/16 06:23 - Head Exam Head Exam: ATRAUMATIC - Eye Exam Eye Exam: Normal appearance - ENT Exam ENT Exam: Mucous Membranes Dry - Respiratory Exam Respiratory Exam: NORMAL BREATHING PATTERN - Cardiovascular Exam Cardiovascular Exam: +S1, +S2 - GI/Abdominal Exam GI & Abdominal Exam: Normal Bowel Sounds - Extremities Exam Extremities Exam: Pedal Edema Assessment and Plan (1) TTP (thrombotic thrombocytopenic purpura) Assessment & Plan: refractory to plasma exchange Redose Rituximab Thursday Status: Acute
--- NOTE | 2016-10-04 20:23 | CP.PCM.PN ---
Subjective - Date & Time of Evaluation Date of Evaluation: 10/04/16 Time of Evaluation: 07:00 - Subjective Subjective: Patient seen and evaluated Comfortable Objective - Vital Signs/Intake and Output Vital Signs (last 24 hours): Temp Pulse Resp BP Pulse Ox 98.7 F 96 H 22 103/53 L 94 L 10/04/16 15:00 10/04/16 15:00 10/04/16 15:00 10/04/16 15:00 10/04/16 15:00 Intake and Output: 10/04/16 10/05/16 18:59 06:59 Intake Total 580 Balance 580 - Medications Medications: Current Medications Hydralazine HCl (Apresoline) 10 mg PO QID [facility] Last Admin: 10/04/16 17:56 Dose: 10 mg Metronidazole (Flagyl) 500 mg in 100 mls @ 100 mls/hr IVPB Q8H [facility] Last Admin: 10/04/16 18:01 Dose: 100 mls/hr Latanoprost (Xalatan Opht) 0 ml OU HS [facility] Last Admin: 10/03/16 21:44 Dose: 2.5 ml Megestrol Acetate (Megace) 40 mg PO DAILY [facility] Last Admin: 10/04/16 09:40 Dose: Not Given Saliva Substitute (First Magic Mouthwash) 5 ml PO QID PRN PRN Reason: sore mouth Last Admin: 10/01/16 20:34 Dose: 5 ml Vancomycin HCl (Vancocin (Oral Or Rectal Use)) 250 mg PO Q6 [facility] Last Admin: 10/04/16 17:56 Dose: 250 mg - Labs Labs: 09/30/16 06:12 09/30/16 06:12 PT 11.9 SECONDS (9.7-12.2) 09/20/16 06:23 INR 1.1 09/20/16 06:23 APTT 28 SECONDS (21-34) 09/20/16 06:23 - Head Exam Head Exam: ATRAUMATIC - Eye Exam Eye Exam: EOMI, PERRL - ENT Exam ENT Exam: Mucous Membranes Moist - Neck Exam Neck Exam: Full ROM - Respiratory Exam Respiratory Exam: Clear to Ausculation Bilateral, NORMAL BREATHING PATTERN - Cardiovascular Exam Cardiovascular Exam: REGULAR RHYTHM, +S1, +S2 - GI/Abdominal Exam GI & Abdominal Exam: Soft, Normal Bowel Sounds - Neurological Exam Neurological Exam: Alert - Skin Skin Exam: Warm Assessment and Plan - Assessment and Plan (Free Text) Assessment: 1. Ischemic CMP with low EF 2. TTP Stable
[2016-10-04] MEDS: Latanoprost 2.5 ml Opht Soln OU SCH (21:53)
[2016-10-05] MEDS: Vancomycin 125 MG/5 ML SOLN (ORAL/RECTAL) PO SCH ×4 (00:50→17:59)
[2016-10-05] MEDS: metroNIDAZOLE IV 500 mg/100 ml 500 MG/100 ML BAG IVPB SCH ×3 (03:19→17:59)
--- NOTE | 2016-10-05 15:49 | CP.PCM.PN ---
Subjective - Date & Time of Evaluation Date of Evaluation: 10/05/16 Time of Evaluation: 10:20 - Subjective Subjective: clinically same Objective - Vital Signs/Intake and Output Vital Signs (last 24 hours): Temp Pulse Resp BP Pulse Ox 97.4 F L 96 H 20 135/84 96 10/05/16 08:33 10/05/16 08:33 10/05/16 08:33 10/05/16 08:33 10/05/16 08:33 Intake and Output: 10/05/16 10/05/16 06:59 18:59 Intake Total 300 620 Balance 300 620 - Medications Medications: Current Medications Hydralazine HCl (Apresoline) 10 mg PO QID [facility] Last Admin: 10/05/16 13:59 Dose: 10 mg Metronidazole (Flagyl) 500 mg in 100 mls @ 100 mls/hr IVPB Q8H [facility] Last Admin: 10/05/16 10:54 Dose: 100 mls/hr Latanoprost (Xalatan Opht) 0 ml OU HS [facility] Last Admin: 10/04/16 21:53 Dose: 2.5 ml Megestrol Acetate (Megace) 40 mg PO DAILY [facility] Last Admin: 10/05/16 09:54 Dose: 40 mg Saliva Substitute (First Magic Mouthwash) 5 ml PO QID PRN PRN Reason: sore mouth Last Admin: 10/01/16 20:34 Dose: 5 ml Vancomycin HCl (Vancocin (Oral Or Rectal Use)) 250 mg PO Q6 [facility] Last Admin: 10/05/16 12:13 Dose: 250 mg - Labs Labs: 09/30/16 06:12 09/30/16 06:12 PT 11.9 SECONDS (9.7-12.2) 09/20/16 06:23 INR 1.1 09/20/16 06:23 APTT 28 SECONDS (21-34) 09/20/16 06:23 - Constitutional Appears: Well - Head Exam Head Exam: ATRAUMATIC, NORMAL INSPECTION, NORMOCEPHALIC - Eye Exam Eye Exam: EOMI, Normal appearance, PERRL - ENT Exam ENT Exam: Mucous Membranes Moist, Normal Exam - Neck Exam Neck Exam: Full ROM, Normal Inspection. absent: Lymphadenopathy - Respiratory Exam Respiratory Exam: Decreased Breath Sounds - Cardiovascular Exam Cardiovascular Exam: REGULAR RHYTHM, +S1, +S2. absent: Murmur - GI/Abdominal Exam GI & Abdominal Exam: Diminished Bowel Sounds - Rectal Exam Rectal Exam: Deferred Assessment and Plan (1) Cardiac dysrhythmia Status: Acute (2) ESRD (end stage renal disease) on dialysis Status: Acute (3) Pulmonary edema Status: Acute (4) MARCO (acute kidney injury) Status: Acute (5) Acute respiratory failure requiring reintubation Status: Acute (6) Arthritis Status: Acute (7) CHF (congestive heart failure) Status: Acute (8) Dehydration Status: Acute (9) Dehydration Status: Acute (10) Diverticulosis Status: Acute (11) Elevated CEA Status: Acute (12) Hypertension Status: Acute (13) Inguinal lymphadenopathy Status: Acute (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
--- NOTE | 2016-10-05 15:53 | CP.PCM.PN ---
Subjective - Date & Time of Evaluation Date of Evaluation: 10/05/16 Time of Evaluation: 15:52 - Subjective Subjective: pt is seen and examined, follow up consult is dictated #[id number] Objective - Vital Signs/Intake and Output Vital Signs (last 24 hours): Temp Pulse Resp BP Pulse Ox 97.4 F L 96 H 20 135/84 96 10/05/16 08:33 10/05/16 08:33 10/05/16 08:33 10/05/16 08:33 10/05/16 08:33 Intake and Output: 10/05/16 10/05/16 06:59 18:59 Intake Total 300 620 Balance 300 620 - Medications Medications: Current Medications Hydralazine HCl (Apresoline) 10 mg PO QID [facility] Last Admin: 10/05/16 13:59 Dose: 10 mg Metronidazole (Flagyl) 500 mg in 100 mls @ 100 mls/hr IVPB Q8H [facility] Last Admin: 10/05/16 10:54 Dose: 100 mls/hr Latanoprost (Xalatan Opht) 0 ml OU HS [facility] Last Admin: 10/04/16 21:53 Dose: 2.5 ml Megestrol Acetate (Megace) 40 mg PO DAILY [facility] Last Admin: 10/05/16 09:54 Dose: 40 mg Saliva Substitute (First Magic Mouthwash) 5 ml PO QID PRN PRN Reason: sore mouth Last Admin: 10/01/16 20:34 Dose: 5 ml Vancomycin HCl (Vancocin (Oral Or Rectal Use)) 250 mg PO Q6 [facility] Last Admin: 10/05/16 12:13 Dose: 250 mg - Labs Labs: 09/30/16 06:12 09/30/16 06:12 PT 11.9 SECONDS (9.7-12.2) 09/20/16 06:23 INR 1.1 09/20/16 06:23 APTT 28 SECONDS (21-34) 09/20/16 06:23
--- NOTE | 2016-10-05 15:55 | CP.PCM.PN ---
Subjective - Date & Time of Evaluation Date of Evaluation: 10/05/16 Time of Evaluation: 09:00 - Subjective Subjective: c diff resolved improving Objective - Vital Signs/Intake and Output Vital Signs (last 24 hours): Temp Pulse Resp BP Pulse Ox 97.4 F L 96 H 20 135/84 96 10/05/16 08:33 10/05/16 08:33 10/05/16 08:33 10/05/16 08:33 10/05/16 08:33 Intake and Output: 10/05/16 10/05/16 06:59 18:59 Intake Total 300 620 Balance 300 620 - Medications Medications: Current Medications Hydralazine HCl (Apresoline) 10 mg PO QID [facility] Last Admin: 10/05/16 13:59 Dose: 10 mg Metronidazole (Flagyl) 500 mg in 100 mls @ 100 mls/hr IVPB Q8H [facility] Last Admin: 10/05/16 10:54 Dose: 100 mls/hr Latanoprost (Xalatan Opht) 0 ml OU HS [facility] Last Admin: 10/04/16 21:53 Dose: 2.5 ml Megestrol Acetate (Megace) 40 mg PO DAILY [facility] Last Admin: 10/05/16 09:54 Dose: 40 mg Saliva Substitute (First Magic Mouthwash) 5 ml PO QID PRN PRN Reason: sore mouth Last Admin: 10/01/16 20:34 Dose: 5 ml Vancomycin HCl (Vancocin (Oral Or Rectal Use)) 250 mg PO Q6 [facility] Last Admin: 10/05/16 12:13 Dose: 250 mg - Labs Labs: 09/30/16 06:12 09/30/16 06:12 PT 11.9 SECONDS (9.7-12.2) 09/20/16 06:23 INR 1.1 09/20/16 06:23 APTT 28 SECONDS (21-34) 09/20/16 06:23 - Constitutional Appears: Non-toxic, Cachectic, Chronically Ill - Head Exam Head Exam: NORMOCEPHALIC - Eye Exam Eye Exam: PERRL. absent: Scleral icterus - ENT Exam ENT Exam: Mucous Membranes Dry - Neck Exam Neck Exam: absent: Lymphadenopathy - Respiratory Exam Respiratory Exam: Decreased Breath Sounds - Cardiovascular Exam Cardiovascular Exam: REGULAR RHYTHM - GI/Abdominal Exam GI & Abdominal Exam: Distended, Soft Assessment and Plan (1) Cardiac dysrhythmia Status: Acute (2) ESRD (end stage renal disease) on dialysis Status: Acute (3) Pulmonary edema Status: Acute (4) Acute respiratory failure requiring reintubation Status: Acute (5) Arthritis Status: Acute (6) CHF (congestive heart failure) Status: Acute (7) Dehydration Status: Acute (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
--- NOTE | 2016-10-05 19:49 | CP.PCM.PN ---
Subjective - Date & Time of Evaluation Date of Evaluation: 10/05/16 Time of Evaluation: 15:10 - Subjective Subjective: Appears comfortable, family at bedside Objective - Vital Signs/Intake and Output Vital Signs (last 24 hours): Temp Pulse Resp BP Pulse Ox 98.2 F 89 20 107/64 100 10/05/16 16:00 10/05/16 16:00 10/05/16 16:00 10/05/16 16:00 10/05/16 16:00 Intake and Output: 10/05/16 10/06/16 18:59 06:59 Intake Total 620 Balance 620 - Medications Medications: Current Medications Hydralazine HCl (Apresoline) 10 mg PO QID [facility] Last Admin: 10/05/16 17:57 Dose: Not Given Metronidazole (Flagyl) 500 mg in 100 mls @ 100 mls/hr IVPB Q8H [facility] Last Admin: 10/05/16 17:59 Dose: 100 mls/hr Latanoprost (Xalatan Opht) 0 ml OU HS [facility] Last Admin: 10/04/16 21:53 Dose: 2.5 ml Megestrol Acetate (Megace) 40 mg PO DAILY [facility] Last Admin: 10/05/16 09:54 Dose: 40 mg Saliva Substitute (First Magic Mouthwash) 5 ml PO QID PRN PRN Reason: sore mouth Last Admin: 10/01/16 20:34 Dose: 5 ml Vancomycin HCl (Vancocin (Oral Or Rectal Use)) 250 mg PO Q6 [facility] Last Admin: 10/05/16 17:59 Dose: 250 mg - Labs Labs: 09/30/16 06:12 09/30/16 06:12 PT 11.9 SECONDS (9.7-12.2) 09/20/16 06:23 INR 1.1 09/20/16 06:23 APTT 28 SECONDS (21-34) 09/20/16 06:23 - Head Exam Head Exam: ATRAUMATIC - Eye Exam Eye Exam: Normal appearance - ENT Exam ENT Exam: Mucous Membranes Dry - Respiratory Exam Respiratory Exam: NORMAL BREATHING PATTERN - Cardiovascular Exam Cardiovascular Exam: +S1, +S2 - GI/Abdominal Exam GI & Abdominal Exam: Normal Bowel Sounds Assessment and Plan (1) TTP (thrombotic thrombocytopenic purpura) Assessment & Plan: refractory to plasma exchange 2nd dosing of Rituximab in AM Status: Acute
--- NOTE | 2016-10-05 20:57 | CP.PCM.PN ---
Subjective - Date & Time of Evaluation Date of Evaluation: 10/05/16 Time of Evaluation: 09:40 - Subjective Subjective: Patient seen and evaluated comfortable Objective - Vital Signs/Intake and Output Vital Signs (last 24 hours): Temp Pulse Resp BP Pulse Ox 98.2 F 89 20 107/64 100 10/05/16 16:00 10/05/16 16:00 10/05/16 16:00 10/05/16 16:00 10/05/16 16:00 Intake and Output: 10/05/16 10/06/16 18:59 06:59 Intake Total 620 Balance 620 - Medications Medications: Current Medications Hydralazine HCl (Apresoline) 10 mg PO QID [facility] Last Admin: 10/05/16 17:57 Dose: Not Given Metronidazole (Flagyl) 500 mg in 100 mls @ 100 mls/hr IVPB Q8H [facility] Last Admin: 10/05/16 17:59 Dose: 100 mls/hr Latanoprost (Xalatan Opht) 0 ml OU HS [facility] Last Admin: 10/04/16 21:53 Dose: 2.5 ml Megestrol Acetate (Megace) 40 mg PO DAILY [facility] Last Admin: 10/05/16 09:54 Dose: 40 mg Saliva Substitute (First Magic Mouthwash) 5 ml PO QID PRN PRN Reason: sore mouth Last Admin: 10/01/16 20:34 Dose: 5 ml Vancomycin HCl (Vancocin (Oral Or Rectal Use)) 250 mg PO Q6 [facility] Last Admin: 10/05/16 17:59 Dose: 250 mg - Labs Labs: 09/30/16 06:12 09/30/16 06:12 PT 11.9 SECONDS (9.7-12.2) 09/20/16 06:23 INR 1.1 09/20/16 06:23 APTT 28 SECONDS (21-34) 09/20/16 06:23 - Head Exam Head Exam: ATRAUMATIC, NORMAL INSPECTION - Eye Exam Eye Exam: EOMI, PERRL Pupil Exam: NORMAL ACCOMODATION - ENT Exam ENT Exam: Mucous Membranes Moist - Neck Exam Neck Exam: Full ROM - Respiratory Exam Respiratory Exam: Clear to Ausculation Bilateral, NORMAL BREATHING PATTERN - Cardiovascular Exam Cardiovascular Exam: REGULAR RHYTHM, +S1, +S2 - GI/Abdominal Exam GI & Abdominal Exam: Soft, Normal Bowel Sounds - Extremities Exam Extremities Exam: Full ROM - Back Exam Back Exam: NORMAL INSPECTION Assessment and Plan - Assessment and Plan (Free Text) Assessment: 1. Ischemic CMP with low EF 2. TTP Stable
[2016-10-05] MEDS: Latanoprost 2.5 ml Opht Soln OU SCH (21:17)
[2016-10-06] MEDS: Vancomycin 125 MG/5 ML SOLN (ORAL/RECTAL) PO SCH ×4 (00:06→19:36)
--- NOTE | 2016-10-06 01:02 | CON ---
FOLLOWUP RENAL CONSULTATION DATE: LOCATION: The patient is located in room 354, bed A. REQUESTING PHYSICIAN: Kavon rUeña MD REASON FOR FOLLOWUP: Hypertension, rheumatoid arthritis, CHF, cardiomyopathy, end-stage renal disease on hemodialysis 3 times a week. HISTORY OF PRESENT ILLNESS: Ms. Denise Garcia is an 80 years old elderly female with a past medical history significant for longstanding hypertension, rheumatoid arthritis, thrombocytopenia, TTP, cardiomyopathy, CHF, status post respiratory failure, renal failure, on hemodialysis 3 times a week Thursday, , and Thursday, status post rituximab x2 one dose and the patient is being treated for C. diff colitis. The patient is not in acute distress. Denies any complaints and following simple commands. No chest pain or palpitation. PHYSICAL EXAMINATION GENERAL: Ms. Denise Garcia is an 80-year-old elderly female, moderately built, moderately nourished, not in acute distress. VITAL SIGNS: Blood pressure 135/84, pulse 96, respirations 20, and temperature 97.4, saturation 96%, height 5 feet 2 inches, and weight is 120 pounds. HEENT: Pupils normal, reactive to light and accommodation. Conjunctivae pink. Sclerae anicteric. Tongue is moist. Trachea is midline. LUNGS: Symmetry on both sides. Bilateral breath sounds present. Clear on auscultation. CARDIOVASCULAR: [place] at the fifth intercostal space, midclavicular line. S1 and S2 audible. No murmur. No gallop. ABDOMEN: Normal in appearance. Soft and tympanic. No guarding. No rigidity. No hepatosplenomegaly. CENTRAL NERVOUS SYSTEM: The patient is awake and following simple commands. Sensory and motor systems are grossly within normal limits. Cranial nerves II through XII are grossly intact. EXTREMITIES: No cyanosis. No clubbing. No edema. LABORATORY DATA: No new labs are available for today. As of 10/04/2016, procalcitonin 0.86 and Accu-Cheks 102 as of 09/30/2016 and 107 as of 08/04/2016. MEDICATIONS: Include as follows; hydralazine 10 mg p.o. q.i.d., Flagyl 500 mg IV q. 8 hours, Megace 40 mg daily, vancomycin 250 mg p.o. q. 6 hours, and Xalatan eye drops. ASSESSMENT AND PLAN: In summary, Ms. Denise Garcia is an 80-year-old elderly female with history of hypertension, congestive heart failure, cardiomyopathy, rheumatoid arthritis, renal failure, thrombotic thrombocytopenic purpura and Clostridium difficile colitis. 1. Renal failure, most likely end-stage renal disease secondary to thrombotic microangiopathy secondary to TTP. Cannot rule out ATN. The patient is on hemodialysis for the last 2.5 months. Continue 3 times a week, doubt she will recover the renal function. 2. Hypertension. 3. Cardiomyopathy. 4. Thrombotic thrombocytopenic purpura. 5. 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 We will follow with you. Thank you for allowing me to participate in your patient's care. Horacio Graham MD
[2016-10-06] MEDS: metroNIDAZOLE IV 500 mg/100 ml 500 MG/100 ML BAG IVPB SCH ×3 (02:09→19:10)
[2016-10-06 08:05] LABS: BASO # 0.1 K/uL (0.0-0.2); BASO % 0.7 % (0.0-2.0); EOS # 0.5 K/uL (0.0-0.7); EOS % 6.1 % (0.0-4.0); HEMATOCRIT 33.6 % (34.0-47.0); LYMPH # 1.2 K/uL (1.0-4.3); LYMPH % 13.2 % (20.0-40.0); MEAN CELL VOLUME 91.9 fL (81.0-99.0); MEAN CORPUSCULAR HEMOGLOBIN 28.3 pg (27.0-31.0); MEAN CORPUSCULAR HGB CONC 30.8 g/dL (33.0-37.0); MEAN PLATELET VOLUME 10.5 fL (7.2-11.7); MONO # 1.1 K/uL (0.0-0.8); MONO % 12.4 % (0.0-10.0); NRBC % 0.1 % (0.0-2.0); RED CELL DISTRIBUTION WIDTH 20.2 % (11.5-14.5); WHITE BLOOD COUNT 8.8 K/uL (4.8-10.8)
[2016-10-06 08:44] LABS: POTASSIUM 4.4 mmol/L (3.6-5.2)
[2016-10-06 08:46] LABS: BILIRUBIN,TOTAL 0.7 mg/dL (0.2-1.3)
[2016-10-06 08:47] LABS: CALCIUM 9.3 mg/dl (8.6-10.4)
[2016-10-06] MEDS ORDERED: DEXAMETHASONE IVPB ONE (09:30)
[2016-10-06] MEDS ORDERED: DiphenhydrAMINE 50 mg/ml Inj IVP ONE ×2 (09:30→13:30)
[2016-10-06] MEDS ORDERED: SODIUM CHLORIDE 0.9% IVPB ONE (09:30)
[2016-10-06] MEDS ORDERED: ONDANSETRON IVPB ONE (09:30)
--- NOTE | 2016-10-06 11:17 | CP.PCM.PN ---
Subjective - Date & Time of Evaluation Date of Evaluation: 10/06/16 Time of Evaluation: 11:16 - Subjective Subjective: pt is seen and examined, follow up consult is dictated #[id number] Objective - Vital Signs/Intake and Output Vital Signs (last 24 hours): Temp Pulse Resp BP Pulse Ox 98.6 F 98 H 19 111/71 97 10/06/16 07:36 10/06/16 07:36 10/06/16 07:36 10/06/16 07:36 10/06/16 07:36 Intake and Output: 10/06/16 10/06/16 06:59 18:59 Intake Total 450 Balance 450 - Medications Medications: Current Medications Hydralazine HCl (Apresoline) 10 mg PO QID [facility] Last Admin: 10/06/16 09:41 Dose: 10 mg Metronidazole (Flagyl) 500 mg in 100 mls @ 100 mls/hr IVPB Q8H [facility] Last Admin: 10/06/16 02:09 Dose: 100 mls/hr Latanoprost (Xalatan Opht) 0 ml OU HS [facility] Last Admin: 10/05/16 21:17 Dose: 2.5 ml Megestrol Acetate (Megace) 40 mg PO DAILY [facility] Last Admin: 10/06/16 09:41 Dose: 40 mg Saliva Substitute (First Magic Mouthwash) 5 ml PO QID PRN PRN Reason: sore mouth Last Admin: 10/01/16 20:34 Dose: 5 ml Vancomycin HCl (Vancocin (Oral Or Rectal Use)) 250 mg PO Q6 [facility] Last Admin: 10/06/16 05:33 Dose: 250 mg - Labs Labs: 10/06/16 07:48 10/06/16 07:48 PT 11.9 SECONDS (9.7-12.2) 09/20/16 06:23 INR 1.1 09/20/16 06:23 APTT 28 SECONDS (21-34) 09/20/16 06:23
--- NOTE | 2016-10-06 12:45 | PCM.SURG1 ---
Surgeon's Initial Post Op Note - Surgeon's Notes Surgeon: Asher Connelly MD Fire Fighter: NONE Type of Anesthesia: Local Pre-Operative Diagnosis: Poor venous access Operative Findings: Patent left brachial vein Post-Operative Diagnosis: Poor venous access Operation Performed: Single lumen picc placement left brachial vein, 35 cm. Tip in SVC. Specimen/Specimens Removed: none Estimated Blood Loss: EBL {In ML}: 2 Blood Products Given: N/A Drains Used: No Drains Post-Op Condition: Fair Date of Surgery/Procedure: 10/06/16 Time of Surgery/Procedure: 12:40
--- NOTE | 2016-10-06 18:36 | CP.PCM.PN ---
Subjective - Date & Time of Evaluation Date of Evaluation: 10/06/16 Time of Evaluation: 07:20 - Subjective Subjective: clinically same Objective - Vital Signs/Intake and Output Vital Signs (last 24 hours): Temp Pulse Resp BP Pulse Ox 97.6 F 98 H 19 111/71 97 10/06/16 13:39 10/06/16 07:36 10/06/16 07:36 10/06/16 07:36 10/06/16 07:36 Intake and Output: 10/06/16 10/06/16 06:59 18:59 Intake Total 450 1106 Balance 450 1106 - Medications Medications: Current Medications Hydralazine HCl (Apresoline) 10 mg PO QID [facility] Last Admin: 10/06/16 14:06 Dose: 10 mg Metronidazole (Flagyl) 500 mg in 100 mls @ 100 mls/hr IVPB Q8H [facility] Last Admin: 10/06/16 11:49 Dose: 100 mls/hr Latanoprost (Xalatan Opht) 0 ml OU HS [facility] Last Admin: 10/05/16 21:17 Dose: 2.5 ml Megestrol Acetate (Megace) 40 mg PO DAILY [facility] Last Admin: 10/06/16 09:41 Dose: 40 mg Saliva Substitute (First Magic Mouthwash) 5 ml PO QID PRN PRN Reason: sore mouth Last Admin: 10/01/16 20:34 Dose: 5 ml Vancomycin HCl (Vancocin (Oral Or Rectal Use)) 250 mg PO Q6 [facility] Last Admin: 10/06/16 12:34 Dose: Not Given - Labs Labs: 10/06/16 07:48 10/06/16 07:48 PT 11.9 SECONDS (9.7-12.2) 09/20/16 06:23 INR 1.1 09/20/16 06:23 APTT 28 SECONDS (21-34) 09/20/16 06:23 - Constitutional Appears: Well - Head Exam Head Exam: ATRAUMATIC, NORMAL INSPECTION, NORMOCEPHALIC - Eye Exam Eye Exam: EOMI, Normal appearance, PERRL Pupil Exam: NORMAL ACCOMODATION, PERRL - ENT Exam ENT Exam: Mucous Membranes Moist, Normal Exam - Neck Exam Neck Exam: Full ROM, Normal Inspection. absent: Lymphadenopathy - Respiratory Exam Respiratory Exam: Decreased Breath Sounds - Cardiovascular Exam Cardiovascular Exam: REGULAR RHYTHM, +S1, +S2 - GI/Abdominal Exam GI & Abdominal Exam: Soft, Diminished Bowel Sounds - Rectal Exam Rectal Exam: Deferred Assessment and Plan (1) Cardiac dysrhythmia Status: Acute (2) ESRD (end stage renal disease) on dialysis Status: Acute (3) Pulmonary edema Status: Acute (4) MARCO (acute kidney injury) Status: Acute (5) Acute respiratory failure requiring reintubation Status: Acute (6) Arthritis Status: Acute (7) CHF (congestive heart failure) Status: Acute (8) Dehydration Status: Acute (9) Dehydration Status: Acute (10) Diverticulosis Status: Acute (11) Elevated CEA Status: Acute (12) Hypertension Status: Acute (13) Inguinal lymphadenopathy Status: Acute (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
--- NOTE | 2016-10-06 21:35 | CP.PCM.PN ---
Subjective - Date & Time of Evaluation Date of Evaluation: 10/06/16 Time of Evaluation: 18:35 - Subjective Subjective: Appears comfortable 2nd dose of Rituximab given Objective - Vital Signs/Intake and Output Vital Signs (last 24 hours): Temp Pulse Resp BP Pulse Ox 97.6 F 98 H 19 111/71 97 10/06/16 13:39 10/06/16 07:36 10/06/16 07:36 10/06/16 07:36 10/06/16 07:36 Intake and Output: 10/06/16 10/07/16 18:59 06:59 Intake Total 1106 Balance 1106 - Medications Medications: Current Medications Hydralazine HCl (Apresoline) 10 mg PO QID [facility] Last Admin: 10/06/16 18:38 Dose: 10 mg Latanoprost (Xalatan Opht) 0 ml OU HS [facility] Last Admin: 10/05/16 21:17 Dose: 2.5 ml Megestrol Acetate (Megace) 40 mg PO DAILY [facility] Last Admin: 10/06/16 09:41 Dose: 40 mg Saliva Substitute (First Magic Mouthwash) 5 ml PO QID PRN PRN Reason: sore mouth Last Admin: 10/01/16 20:34 Dose: 5 ml Vancomycin HCl (Vancocin (Oral Or Rectal Use)) 250 mg PO Q6 [facility] Last Admin: 10/06/16 19:36 Dose: 250 mg - Labs Labs: 10/06/16 07:48 10/06/16 07:48 PT 11.9 SECONDS (9.7-12.2) 09/20/16 06:23 INR 1.1 09/20/16 06:23 APTT 28 SECONDS (21-34) 09/20/16 06:23 - Head Exam Head Exam: ATRAUMATIC - Eye Exam Eye Exam: Normal appearance - ENT Exam ENT Exam: Mucous Membranes Dry - Respiratory Exam Respiratory Exam: NORMAL BREATHING PATTERN - Cardiovascular Exam Cardiovascular Exam: +S1, +S2 - GI/Abdominal Exam GI & Abdominal Exam: Normal Bowel Sounds - Extremities Exam Extremities Exam: Normal Inspection Assessment and Plan (1) TTP (thrombotic thrombocytopenic purpura) Assessment & Plan: Appears resolving with Rituximab; 2nd dose given today refractory to plasma exchange Status: Acute
[2016-10-06] MEDS: Latanoprost 2.5 ml Opht Soln OU SCH (22:31)
--- NOTE | 2016-10-07 00:05 | PN ---
DATE: FOLLOWUP RENAL CONSULTATION Patient is located in room 354, bed 8. REQUESTED BY: Dr. Kavon Ureña. REASON FOR FOLLOWUP: End stage renal disease for continuation with hemodialysis. SUBJECTIVE: Mrs. Hough is an 80 years old elderly female with a past medical history significant for hypertension, rheumatoid arthritis, cardiomyopathy, CHF, respiratory failure status post intubation x2, thrombocytopenia, TTP, renal failure,on hemodialysis three times a week Thursday, and Thursday. The patient was started on Rituximab q. weekly. The patient is not in acute distress. No chest pain, no palpitation, no fever, no cough. The patient's family at bedside. PHYSICAL EXAMINATION GENERAL: Mrs. Hough is an 80 years old elderly female , thin built, not in acute distress. VITAL SIGNS: This morning as follows. Blood pressure 111/71, pulse 98, respirations 19, temperature 98.6, saturation 97%. Height 5 feet 2 inches and weight is 120 pounds. HEENT: Pupils normal reactive to light and accommodation. Conjunctivae pink. Sclerae anicteric. Tongue is moist. Trachea is midline. LUNGS: Symmetry on both side, bilateral breath sounds present. Clear on auscultation CVS: [place] at the fifth intercostal space, midclavicular line, S1, S2 audible. No murmur, gallop. ABDOMEN: Normal in appearance, soft tympanic, no guarding, no rigidity, no hepatosplenomegaly. [employer] SOLUTION ARCHITECT: The patient is alert, awake, oriented x2. Sensory and motor system is grossly within normal limits. EXTREMITIES: No cyanosis, no clubbing, no edema. LABORATORY DATA: Include as follows. As of 10/06/2016 WBC 8.8, hemoglobin 10.3, hematocrit is 33.6, platelets 151. Sodium 138, potassium 4.4, chloride 98, CO2 26, BUN 30, creatinine 5.2, glucose is 100, calcium 9.3,, total bilirubin 0.7, AST 36, ALT 35, alkaline phosphatase 106, total protein 7,albumin is 3.5, globulin 3.5. CURRENT MEDICATIONS: Her current medications include as follows: Hydralazine 10 mg p.o. q.i.d., Megace 40 mg p.o. daily, vancomycin 250 mg p.o. q. 6 hours and Xalatan eye drops. ASSESSMENT AND PLAN: In summary Mrs. Hough is an 80 years old elderly female with a history of hypertension, rheumatoid arthritis and thrombotic thrombocytopenic purpura, cardiomyopathy, renal failure on hemodialysis three times a week started on Rituximab for thrombotic thrombocytopenic purpura. 1. Renal failure, most likely end-stage renal disease secondary to thrombotic thrombocytopenic purpura, secondary to thrombotic microangiopathy, cannot rule out acute tubular necrosis. Patient is on hemodialysis dependent for the last two and half months. Continue hemodialysis three times a week, Thursday, and Thursday. 2. Cardiomyopathy. 3. Thrombotic thrombocytopenic purpura. Continue Rituximab. 4. Hypertension. Blood pressure is stable. The patient is off Nitro paste. Continue hydralazine. Hold for systolic blood pressure less than 120. Thank you for allowing me to participate in our patient's care. The patient is scheduled for the Rituximab IV q. Thursday x4 doses and today will be the second dose. Horacio Graham MD
[2016-10-07] MEDS: Vancomycin 125 MG/5 ML SOLN (ORAL/RECTAL) PO SCH ×4 (00:42→17:57)
--- NOTE | 2016-10-07 11:32 | RAD ---
PROCEDURE: Date of procedure: 10/06/2016 Procedure: 1. Placement of a left arm PICC with ultrasound and fluoroscopic guidance, CPT 84669 2. PICC tip confirmation with spot radiograph and is in the superior vena cava Medications: 4cc 1 percent lidocaine Total Fluoro time: 20.5 seconds Radiation: 6.35 MGy EBL: 3 cc HISTORY: Infection requiring long-term IV antibiotics TECHNIQUE: Following informed consent and procedure time-out, the patient placed supine on the interventional table and the left arm prepped and draped in the usual sterile fashion. Ultrasound showed a patent and compressible left basilic vein. After the skin was anesthetized with lidocaine, the basilic vein was accessed with micro micropuncture technique using ultrasound guidance. A guidewire was then advanced under fluoroscopic guidance into the superior vena cava. An image documenting ultrasound guidance for vascular access was permanently saved. The length of a single-lumen 4 [place] PICC was trimmed to 35 cm and advanced through a peel-away sheath. The PICC was position with tip of PICC confirm a spot radiograph the superior vena cava. The PICC was secured to the patient's skin. The PICC was flushed. A biopatch and sterile dressing was applied. IMPRESSION: Placement of a single-lumen 4 [place] PICC left basilic vein trimmed to 35cm. The tip of the PICC is confirmed with spot radiograph and is in the superior vena cava.
--- NOTE | 2016-10-07 11:33 | US ---
Date of procedure: 10/06/2016 Procedure: Ultrasound guidance for vascular access HISTORY: Infection requiring long-term IV antibiotics TECHNIQUE: Following informed consent and procedure time-out, the patient placed supine on the interventional table and the left arm prepped and draped in the usual sterile fashion. Ultrasound showed a patent and compressible basilic vein. After the skin was anesthetized with lidocaine, the basilic vein was accessed with micro micropuncture technique using ultrasound guidance. An image documenting ultrasound guidance for vascular access was permanently saved. IMPRESSION: Ultrasound guidance for vascular access for placement of PICC.
--- NOTE | 2016-10-07 11:37 | CP.PCM.PN ---
Subjective - Date & Time of Evaluation Date of Evaluation: 10/07/16 Time of Evaluation: 11:36 - Subjective Subjective: pt is seen and examined, follow up consult is dictated #[id number] for hd today, seen in hd , uf 2 .5 lit Objective - Vital Signs/Intake and Output Vital Signs (last 24 hours): Temp Pulse Resp BP Pulse Ox 97.6 F 82 20 132/76 99 10/07/16 09:00 10/07/16 09:00 10/07/16 09:00 10/07/16 10:30 10/07/16 09:00 Intake and Output: 10/07/16 10/07/16 06:59 18:59 Intake Total 650 Output Total 1 Balance 649 - Medications Medications: Current Medications Latanoprost (Xalatan Opht) 0 ml OU HS [facility] Last Admin: 10/06/16 22:31 Dose: 2.5 ml Megestrol Acetate (Megace) 40 mg PO DAILY [facility] Last Admin: 10/07/16 09:43 Dose: Not Given Saliva Substitute (First Magic Mouthwash) 5 ml PO QID PRN PRN Reason: sore mouth Last Admin: 10/01/16 20:34 Dose: 5 ml Vancomycin HCl (Vancocin (Oral Or Rectal Use)) 250 mg PO Q6 [facility] Last Admin: 10/07/16 05:56 Dose: 250 mg - Labs Labs: 10/06/16 07:48 10/06/16 07:48 PT 11.9 SECONDS (9.7-12.2) 09/20/16 06:23 INR 1.1 09/20/16 06:23 APTT 28 SECONDS (21-34) 09/20/16 06:23
--- NOTE | 2016-10-07 15:42 | CP.PCM.PN ---
Subjective - Date & Time of Evaluation Date of Evaluation: 10/07/16 Time of Evaluation: 07:20 - Subjective Subjective: clinically same Objective - Vital Signs/Intake and Output Vital Signs (last 24 hours): Temp Pulse Resp BP Pulse Ox 97.9 F 66 18 90/52 L 98 10/07/16 12:00 10/07/16 12:00 10/07/16 12:00 10/07/16 12:00 10/07/16 12:00 Intake and Output: 10/07/16 10/07/16 06:59 18:59 Intake Total 650 Output Total 1 Balance 649 - Medications Medications: Current Medications Latanoprost (Xalatan Opht) 0 ml OU HS [facility] Last Admin: 10/06/16 22:31 Dose: 2.5 ml Megestrol Acetate (Megace) 40 mg PO DAILY [facility] Last Admin: 10/07/16 09:43 Dose: Not Given Saliva Substitute (First Magic Mouthwash) 5 ml PO QID PRN PRN Reason: sore mouth Last Admin: 10/01/16 20:34 Dose: 5 ml Vancomycin HCl (Vancocin (Oral Or Rectal Use)) 250 mg PO Q6 [facility] Last Admin: 10/07/16 12:49 Dose: 250 mg - Labs Labs: 10/06/16 07:48 10/06/16 07:48 PT 11.9 SECONDS (9.7-12.2) 09/20/16 06:23 INR 1.1 09/20/16 06:23 APTT 28 SECONDS (21-34) 09/20/16 06:23 - Constitutional Appears: Well - Head Exam Head Exam: ATRAUMATIC, NORMAL INSPECTION, NORMOCEPHALIC - Eye Exam Eye Exam: EOMI, Normal appearance, PERRL Pupil Exam: NORMAL ACCOMODATION, PERRL - ENT Exam ENT Exam: Mucous Membranes Moist, Normal Exam - Neck Exam Neck Exam: Full ROM, Normal Inspection. absent: Lymphadenopathy - Respiratory Exam Respiratory Exam: Decreased Breath Sounds - Cardiovascular Exam Cardiovascular Exam: REGULAR RHYTHM, +S1, +S2 - GI/Abdominal Exam GI & Abdominal Exam: Soft, Diminished Bowel Sounds - Rectal Exam Rectal Exam: Deferred Assessment and Plan (1) Cardiac dysrhythmia Status: Acute (2) ESRD (end stage renal disease) on dialysis Status: Acute (3) Pulmonary edema Status: Acute (4) MARCO (acute kidney injury) Status: Acute (5) Acute respiratory failure requiring reintubation Status: Acute (6) Arthritis Status: Acute (7) CHF (congestive heart failure) Status: Acute (8) Dehydration Status: Acute (9) Dehydration Status: Acute (10) Diverticulosis Status: Acute (11) Elevated CEA Status: Acute (12) Hypertension Status: Acute (13) Inguinal lymphadenopathy Status: Acute (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
--- NOTE | 2016-10-07 19:39 | CP.PCM.PN ---
Subjective - Date & Time of Evaluation Date of Evaluation: 10/07/16 Time of Evaluation: 16:00 - Subjective Subjective: Appears comfortable, more awake Objective - Vital Signs/Intake and Output Vital Signs (last 24 hours): Temp Pulse Resp BP Pulse Ox 97.7 F 87 20 111/63 98 10/07/16 15:10 10/07/16 15:10 10/07/16 15:10 10/07/16 15:10 10/07/16 15:10 Intake and Output: 10/07/16 10/08/16 18:59 06:59 Intake Total 120 Balance 120 - Medications Medications: Current Medications Latanoprost (Xalatan Opht) 0 ml OU HS [facility] Last Admin: 10/06/16 22:31 Dose: 2.5 ml Megestrol Acetate (Megace) 40 mg PO DAILY [facility] Last Admin: 10/07/16 09:43 Dose: Not Given Saliva Substitute (First Magic Mouthwash) 5 ml PO QID PRN PRN Reason: sore mouth Last Admin: 10/01/16 20:34 Dose: 5 ml Vancomycin HCl (Vancocin (Oral Or Rectal Use)) 250 mg PO Q6 [facility] Last Admin: 10/07/16 17:57 Dose: 250 mg - Labs Labs: 10/06/16 07:48 10/06/16 07:48 PT 11.9 SECONDS (9.7-12.2) 09/20/16 06:23 INR 1.1 09/20/16 06:23 APTT 28 SECONDS (21-34) 09/20/16 06:23 - Head Exam Head Exam: ATRAUMATIC - Eye Exam Eye Exam: Normal appearance - ENT Exam ENT Exam: Mucous Membranes Dry - Respiratory Exam Respiratory Exam: NORMAL BREATHING PATTERN - Cardiovascular Exam Cardiovascular Exam: +S1, +S2 - GI/Abdominal Exam GI & Abdominal Exam: Normal Bowel Sounds Assessment and Plan (1) TTP (thrombotic thrombocytopenic purpura) Assessment & Plan: resolving plasma exchange refractory s/p 2 doses of Rituximab redose weekly x 2 doses left Status: Acute
[2016-10-07] MEDS: Latanoprost 2.5 ml Opht Soln OU SCH (21:30)
--- NOTE | 2016-10-07 22:45 | CP.PCM.PN ---
Subjective - Date & Time of Evaluation Date of Evaluation: 10/06/16 Time of Evaluation: 08:40 - Subjective Subjective: Patient comfortable No cardiac symptoms Objective - Vital Signs/Intake and Output Vital Signs (last 24 hours): Temp Pulse Resp BP Pulse Ox 97.7 F 87 20 111/63 98 10/07/16 15:10 10/07/16 15:10 10/07/16 15:10 10/07/16 15:10 10/07/16 15:10 Intake and Output: 10/07/16 10/08/16 18:59 06:59 Intake Total 120 Balance 120 - Medications Medications: Current Medications Benzocaine (Anbesol) 1 ml [facility] Latanoprost (Xalatan Opht) 0 ml OU HS [facility] Last Admin: 10/07/16 21:30 Dose: 2.5 ml Megestrol Acetate (Megace) 40 mg PO DAILY [facility] Last Admin: 10/07/16 09:43 Dose: Not Given Saliva Substitute (First Magic Mouthwash) 5 ml PO QID PRN PRN Reason: sore mouth Last Admin: 10/01/16 20:34 Dose: 5 ml Vancomycin HCl (Vancocin (Oral Or Rectal Use)) 250 mg PO Q6 [facility] Last Admin: 10/07/16 17:57 Dose: 250 mg - Labs Labs: 10/06/16 07:48 10/06/16 07:48 PT 11.9 SECONDS (9.7-12.2) 09/20/16 06:23 INR 1.1 09/20/16 06:23 APTT 28 SECONDS (21-34) 09/20/16 06:23 - Head Exam Head Exam: ATRAUMATIC, NORMAL INSPECTION - Eye Exam Eye Exam: EOMI, PERRL - ENT Exam ENT Exam: Mucous Membranes Moist - Neck Exam Neck Exam: Full ROM, Normal Inspection - Respiratory Exam Respiratory Exam: Clear to Ausculation Bilateral, NORMAL BREATHING PATTERN - Cardiovascular Exam Cardiovascular Exam: REGULAR RHYTHM, +S1, +S2 - GI/Abdominal Exam GI & Abdominal Exam: Soft, Normal Bowel Sounds - Extremities Exam Extremities Exam: Full ROM - Neurological Exam Neurological Exam: Alert - Skin Skin Exam: Warm Assessment and Plan - Assessment and Plan (Free Text) Assessment: 1. Cardiomyopathy with Low EF Medical management due to poor general condition. Due to dementia not a candidate for cath or AICD 2. CKD on HD 3. Dementia 4. TTP resolving
--- NOTE | 2016-10-07 22:47 | CP.PCM.PN ---
Subjective - Date & Time of Evaluation Date of Evaluation: 10/07/16 Time of Evaluation: 16:25 - Subjective Subjective: Patient seen and evaluated Comfortable Objective - Vital Signs/Intake and Output Vital Signs (last 24 hours): Temp Pulse Resp BP Pulse Ox 97.7 F 87 20 111/63 98 10/07/16 15:10 10/07/16 15:10 10/07/16 15:10 10/07/16 15:10 10/07/16 15:10 Intake and Output: 10/07/16 10/08/16 18:59 06:59 Intake Total 120 Balance 120 - Medications Medications: Current Medications Benzocaine (Anbesol) 1 ml MM TID [facility] Latanoprost (Xalatan Opht) 0 ml OU HS [facility] Last Admin: 10/07/16 21:30 Dose: 2.5 ml Megestrol Acetate (Megace) 40 mg PO DAILY [facility] Last Admin: 10/07/16 09:43 Dose: Not Given Saliva Substitute (First Magic Mouthwash) 5 ml PO QID PRN PRN Reason: sore mouth Last Admin: 10/01/16 20:34 Dose: 5 ml Vancomycin HCl (Vancocin (Oral Or Rectal Use)) 250 mg PO Q6 [facility] Last Admin: 10/07/16 17:57 Dose: 250 mg - Labs Labs: 10/06/16 07:48 10/06/16 07:48 PT 11.9 SECONDS (9.7-12.2) 09/20/16 06:23 INR 1.1 09/20/16 06:23 APTT 28 SECONDS (21-34) 09/20/16 06:23 - Head Exam Head Exam: ATRAUMATIC, NORMAL INSPECTION - Eye Exam Eye Exam: EOMI, PERRL - ENT Exam ENT Exam: Mucous Membranes Moist - Neck Exam Neck Exam: Full ROM, Normal Inspection - Respiratory Exam Respiratory Exam: Clear to Ausculation Bilateral, NORMAL BREATHING PATTERN - Cardiovascular Exam Cardiovascular Exam: REGULAR RHYTHM, +S1, +S2 - GI/Abdominal Exam GI & Abdominal Exam: Soft, Normal Bowel Sounds - Extremities Exam Extremities Exam: Full ROM - Neurological Exam Neurological Exam: Alert - Psychiatric Exam Psychiatric exam: Normal Mood - Skin Skin Exam: Warm Assessment and Plan - Assessment and Plan (Free Text) Assessment: 1. Cardiomyopathy with Low EF Medical management due to poor general condition. Due to dementia not a candidate for cath or AICD 2. CKD on HD 3. Dementia 4. TTP resolving
[2016-10-08] MEDS: Vancomycin 125 MG/5 ML SOLN (ORAL/RECTAL) PO SCH ×5 (00:01→23:48)
--- NOTE | 2016-10-08 09:17 | PN ---
FOLLOWUP RENAL CONSULTATION DATE: 10/07/16 LOCATION: The patient is located in room 354, bed 8. REQUESTED BY: Kavon Ureña MD REASON FOR FOLLOWUP: End-stage renal disease for continuation of the hemodialysis. HISTORY OF PRESENT ILLNESS: Mrs. Denise Garcia is an 80 years old elderly female with a past medical history significant for longstanding hypertension, rheumatoid arthritis, cardiomyopathy, CHF, status post respiratory failure, TTP, thrombocytopenia, and renal failure on hemodialysis for the last 2-1/2 months. The patient is being dialyzed at this time and the patient has UF about 2.5 L. Denies any complaints. No chest pain. No palpitations. PHYSICAL EXAMINATION: VITAL SIGNS: Her current vital signs as follows; blood pressure 132/76, pulse 92, respirations 18, and temperature 97.6. Height 5 feet 2 inches and weight is 120 pounds. GENERAL: Mrs. Denise Garcia is an 80 years old elderly female , moderately built, moderately nourished, and not in distress. HEENT: Pupils normal and reactive to light and accommodation. Conjunctivae pink. Sclerae anicteric. Tongue is moist. Trachea is midline. LUNGS: Symmetry on both side, bilateral breath sounds present. Clear on auscultation. CARDIOVASCULAR: [place] at the fifth intercostal space, midclavicular line, S1 and S2 audible. No murmur or gallop. ABDOMEN: Normal in appearance, soft tympanic, no guarding, no rigidity, and no hepatosplenomegaly. CENTRAL NERVOUS SYSTEM: The patient is alert, awake, and oriented x2. Sensory and motor system is grossly within normal limits. EXTREMITIES: No cyanosis, no clubbing, and no edema. CURRENT MEDICATIONS: Include as follows; Megace 40 mg p.o. daily, vancomycin 250 mg p.o. q.6 hours, and Xalatan eyedrops. LABORATORY DATA: As of 09/28/2016; WBC 8.8, hemoglobin 10.3, hematocrit is 33.6, and platelets 151. Sodium 138, potassium 4.4, chloride 98, CO2 of 26, BUN 30, creatinine 5.2, glucose 100, calcium 9.3, total protein is 7,and albumin is 3.5. ASSESSMENT AND PLAN: In summary, Mrs. Denise Garcia is an 80 years old elderly female with a history of hypertension, rheumatoid arthritis, congestive heart failure, cardiomyopathy, end-stage renal disease, and thrombotic thrombocytopenic purpura, status post Rituximab on 10/06/2016. 1. End-stage renal failure. Continue hemodialysis 3 times a week, Thursday, and Thursday. 2. Thrombotic thrombocytopenic purpura. Continue Rituximab every Thursday x4 doses. 3. Cardiomyopathy. Continue hydralazine and hold for the systolic blood pressure less than 120. We will follow with you. Thank you for allowing me to participate in our patient's care. Follow with social service for possible discharge. Horacio Graham MD
[2016-10-08] MEDS: Benzocaine 10% Oral Anesthetic (12 ml) MM SCH ×3 (09:27→18:07)
--- NOTE | 2016-10-08 18:04 | CP.PCM.PN ---
Subjective - Date & Time of Evaluation Date of Evaluation: 10/08/16 Time of Evaluation: 07:20 - Subjective Subjective: clinically same Objective - Vital Signs/Intake and Output Vital Signs (last 24 hours): Temp Pulse Resp BP Pulse Ox 97.7 F 90 20 104/65 98 10/08/16 15:00 10/08/16 15:00 10/08/16 15:00 10/08/16 15:00 10/08/16 15:00 Intake and Output: 10/08/16 10/08/16 06:59 18:59 Intake Total 550 240 Balance 550 240 - Medications Medications: Current Medications Benzocaine (Anbesol) 1 ml MM TID [facility] Last Admin: 10/08/16 13:07 Dose: 1 ml Metronidazole 250 mg/ (Miscellaneous) 50 mls @ 100 mls/hr IVPB Q8 [facility] Stop: 10/11/16 22:01 Latanoprost (Xalatan Opht) 0 ml OU HS [facility] Last Admin: 10/07/16 21:30 Dose: 2.5 ml Megestrol Acetate (Megace) 40 mg PO DAILY [facility] Last Admin: 10/08/16 09:28 Dose: 40 mg Saliva Substitute (First Magic Mouthwash) 5 ml PO QID PRN PRN Reason: sore mouth Last Admin: 10/01/16 20:34 Dose: 5 ml Vancomycin HCl (Vancocin (Oral Or Rectal Use)) 250 mg PO Q6 [facility] Last Admin: 10/08/16 12:54 Dose: 250 mg - Labs Labs: 10/06/16 07:48 10/06/16 07:48 PT 11.9 SECONDS (9.7-12.2) 09/20/16 06:23 INR 1.1 09/20/16 06:23 APTT 28 SECONDS (21-34) 09/20/16 06:23 - Constitutional Appears: Well - Head Exam Head Exam: ATRAUMATIC, NORMAL INSPECTION, NORMOCEPHALIC - Eye Exam Eye Exam: EOMI, Normal appearance, PERRL Pupil Exam: NORMAL ACCOMODATION, PERRL - ENT Exam ENT Exam: Mucous Membranes Moist, Normal Exam - Neck Exam Neck Exam: Full ROM, Normal Inspection. absent: Lymphadenopathy - Respiratory Exam Respiratory Exam: Decreased Breath Sounds - Cardiovascular Exam Cardiovascular Exam: REGULAR RHYTHM, +S1, +S2 - GI/Abdominal Exam GI & Abdominal Exam: Soft, Diminished Bowel Sounds - Rectal Exam Rectal Exam: Deferred Assessment and Plan (1) Cardiac dysrhythmia Status: Acute (2) ESRD (end stage renal disease) on dialysis Status: Acute (3) Pulmonary edema Status: Acute (4) MARCO (acute kidney injury) Status: Acute (5) Acute respiratory failure requiring reintubation Status: Acute (6) Arthritis Status: Acute (7) CHF (congestive heart failure) Status: Acute (8) Dehydration Status: Acute (9) Dehydration Status: Acute (10) Diverticulosis Status: Acute (11) Elevated CEA Status: Acute (12) Hypertension Status: Acute (13) Inguinal lymphadenopathy Status: Acute (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
--- NOTE | 2016-10-08 20:27 | CP.PCM.PN ---
Subjective - Date & Time of Evaluation Date of Evaluation: 10/08/16 Time of Evaluation: 20:26 - Subjective Subjective: pt is seen and examined, follow up consult is dictated #[id number] hd in am Objective - Vital Signs/Intake and Output Vital Signs (last 24 hours): Temp Pulse Resp BP Pulse Ox 97.7 F 90 20 104/65 98 10/08/16 15:00 10/08/16 15:00 10/08/16 15:00 10/08/16 15:00 10/08/16 15:00 Intake and Output: 10/08/16 10/09/16 18:59 06:59 Intake Total 240 Balance 240 - Medications Medications: Current Medications Benzocaine (Anbesol) 1 ml MM TID [facility] Last Admin: 10/08/16 18:07 Dose: 1 ml Metronidazole (Flagyl) 250 mg in 50 mls @ 50 mls/hr IVPB Q8 [facility] Stop: 10/11/16 22:01 Latanoprost (Xalatan Opht) 0 ml OU HS [facility] Last Admin: 10/07/16 21:30 Dose: 2.5 ml Megestrol Acetate (Megace) 40 mg PO DAILY [facility] Last Admin: 10/08/16 09:28 Dose: 40 mg Saliva Substitute (First Magic Mouthwash) 5 ml PO QID PRN PRN Reason: sore mouth Last Admin: 10/01/16 20:34 Dose: 5 ml Vancomycin HCl (Vancocin (Oral Or Rectal Use)) 250 mg PO Q6 [facility] Last Admin: 10/08/16 18:06 Dose: 250 mg - Labs Labs: 10/06/16 07:48 10/06/16 07:48 PT 11.9 SECONDS (9.7-12.2) 09/20/16 06:23 INR 1.1 09/20/16 06:23 APTT 28 SECONDS (21-34) 09/20/16 06:23
[2016-10-08] MEDS: metroNIDAZOLE IV 250mg/50 ml 250 MG/50 ML BAG IVPB SCH (22:08)
[2016-10-08] MEDS: Latanoprost 2.5 ml Opht Soln OU SCH (22:09)
--- NOTE | 2016-10-08 23:33 | CP.PCM.PN ---
Subjective - Date & Time of Evaluation Date of Evaluation: 10/08/16 Time of Evaluation: 10:25 - Subjective Subjective: Patient seen and evaluated No cardiac events noted Objective - Vital Signs/Intake and Output Vital Signs (last 24 hours): Temp Pulse Resp BP Pulse Ox 97.7 F 90 20 104/65 98 10/08/16 15:00 10/08/16 15:00 10/08/16 15:00 10/08/16 15:00 10/08/16 15:00 Intake and Output: 10/08/16 10/09/16 18:59 06:59 Intake Total 240 350 Balance 240 350 - Medications Medications: Current Medications Benzocaine (Anbesol) 1 ml MM TID [facility] Last Admin: 10/08/16 18:07 Dose: 1 ml Metronidazole (Flagyl) 250 mg in 50 mls @ 50 mls/hr IVPB Q8 [facility] Stop: 10/11/16 22:01 Last Admin: 10/08/16 22:08 Dose: 50 mls/hr Latanoprost (Xalatan Opht) 0 ml OU HS [facility] Last Admin: 10/08/16 22:09 Dose: 2.5 ml Megestrol Acetate (Megace) 40 mg PO DAILY [facility] Last Admin: 10/08/16 09:28 Dose: 40 mg Saliva Substitute (First Magic Mouthwash) 5 ml PO QID PRN PRN Reason: sore mouth Last Admin: 10/01/16 20:34 Dose: 5 ml Vancomycin HCl (Vancocin (Oral Or Rectal Use)) 250 mg PO Q6 [facility] Last Admin: 10/08/16 18:06 Dose: 250 mg - Labs Labs: 10/06/16 07:48 10/06/16 07:48 PT 11.9 SECONDS (9.7-12.2) 09/20/16 06:23 INR 1.1 09/20/16 06:23 APTT 28 SECONDS (21-34) 09/20/16 06:23 - Head Exam Head Exam: ATRAUMATIC, NORMAL INSPECTION - Eye Exam Eye Exam: EOMI, PERRL Pupil Exam: NORMAL ACCOMODATION - ENT Exam ENT Exam: Mucous Membranes Moist, Normal Exam - Neck Exam Neck Exam: Full ROM - Respiratory Exam Respiratory Exam: Clear to Ausculation Bilateral, NORMAL BREATHING PATTERN - Cardiovascular Exam Cardiovascular Exam: REGULAR RHYTHM, +S1, +S2 - Neurological Exam Neurological Exam: Alert - Skin Skin Exam: Warm Assessment and Plan - Assessment and Plan (Free Text) Assessment: 1. Cardiomyopathy with Low EF Medical management due to poor general condition. Due to dementia not a candidate for cath or AICD 2. CKD on HD 3. Dementia 4. TTP resolving
--- NOTE | 2016-10-09 02:40 | PN ---
FOLLOWUP RENAL CONSULTATION LOCATION: The patient is located in room #354, bed A. REQUESTED BY: Kavon Urñea MD REASON FOR FOLLOWUP: End-stage renal disease and for continuation of hemodialysis. SUBJECTIVE: The patient is an 80-year-old elderly female with a history of longstanding hypertension, rheumatoid arthritis, cardiomyopathy, CHF, respiratory failure and TTP with end-stage renal disease, on hemodialysis 3 times a week, on rituximab q. weekly. The patient is feeling much better, not in distress. No complaints, no chest pain, no palpitation, no fever, no cough. PHYSICAL EXAMINATION VITAL SIGNS: As follow, blood pressure 121/77 this morning and current blood pressure 104/65, pulse 90, respirations 20, temperature 97.7, saturation 98% on room air. GENERAL: The patient is an 80-year-old elderly female with a history of hypertension, rheumatoid arthritis, TTP and end-stage renal disease, moderately built, moderately nourished, not in acute distress. HEENT: Pupils normal, reactive to light and accommodation. Conjunctivae pink. Sclerae anicteric. Tongue is moist. Trachea is midline. LUNGS: Symmetric on both sides. Bilateral breath sounds present. Clear to auscultation. CARDIOVASCULAR SYSTEM: [place] at the sixth intercostal space, midclavicular line. S1 and S2 audible. No murmur or gallop. ABDOMEN: Normal in appearance. Soft, tympanic. No guarding. No hepatosplenomegaly. CENTRAL NERVOUS SYSTEM: The patient is alert, awake, oriented x2. Sensory and motor system is grossly within normal limits. EXTREMITIES: No cyanosis. No clubbing. No edema. CURRENT MEDICATIONS: Include as follows: Benzocaine, First-Magic mouthwash 5 mL p.o. q.i.d., Flagyl 500 mg IV piggyback q. 8 hours, Megace 40 mg p.o. daily, vancomycin 250 mg p.o. q. 6 hours and Xalatan eye drops. LABORATORY DATA: As of labs as of 10/06/2016, H and H 10.3/33.6 and platelet of 151. Sodium 138, potassium 4.4, chloride 98, CO2 of 26, BUN 30, creatinine 5.2, glucose 100 and calcium 9.3. ASSESSMENT AND PLAN: In summary, the patient is an 80-year-old elderly female with a history of hypertension, rheumatoid arthritis, cardiomyopathy, respiratory failure, congestive heart failure, status post plasmapheresis x3 with renal failure, on hemodialysis for the last 2-1/2 months. 1. 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 2. Hypertension, blood pressure is stable and off antihypertensive medication. 3. Cardiomyopathy. 4. Anemia, H and H stable. Follow up CBC, BMP, calcium and phosphorus in a.m. Thank you for allowing me to participate in your patient's care. Horacio Graham MD [facility] # [id number]
[2016-10-09] MEDS: Vancomycin 125 MG/5 ML SOLN (ORAL/RECTAL) PO SCH ×3 (05:15→17:36)
[2016-10-09] MEDS: metroNIDAZOLE IV 250mg/50 ml 250 MG/50 ML BAG IVPB SCH ×3 (05:16→21:56)
[2016-10-09] MEDS: Benzocaine 10% Oral Anesthetic (12 ml) MM SCH ×3 (09:23→17:36)
[2016-10-09 10:38] LABS: POTASSIUM 4.5 mmol/L (3.6-5.2)
[2016-10-09 10:40] LABS: BILIRUBIN,TOTAL 0.6 mg/dL (0.2-1.3); TOTAL PROTEIN 6.6 g/dL (6.3-8.3)
[2016-10-09 10:41] LABS: CALCIUM 9.3 mg/dl (8.6-10.4)
--- NOTE | 2016-10-09 11:46 | CP.PCM.PN ---
Subjective - Date & Time of Evaluation Date of Evaluation: 10/09/16 Time of Evaluation: 11:45 - Subjective Subjective: pt is seen and examined, follow up consult is dictated #[id number] seen in hd, uf goal is 1.5 lit Objective - Vital Signs/Intake and Output Vital Signs (last 24 hours): Temp Pulse Resp BP Pulse Ox 98.1 F 110 H 22 115/59 L 96 10/09/16 10:00 10/09/16 11:15 10/09/16 10:15 10/09/16 11:15 10/09/16 10:30 Intake and Output: 10/09/16 10/09/16 06:59 18:59 Intake Total 400 Balance 400 - Medications Medications: Current Medications Benzocaine (Anbesol) 1 ml MM TID [facility] Last Admin: 10/09/16 09:23 Dose: 1 ml Metronidazole (Flagyl) 250 mg in 50 mls @ 50 mls/hr IVPB Q8 [facility] Stop: 10/11/16 22:01 Last Admin: 10/09/16 05:16 Dose: 50 mls/hr Latanoprost (Xalatan Opht) 0 ml OU HS [facility] Last Admin: 10/08/16 22:09 Dose: 2.5 ml Megestrol Acetate (Megace) 40 mg PO DAILY [facility] Last Admin: 10/09/16 09:23 Dose: 40 mg Saliva Substitute (First Magic Mouthwash) 5 ml PO QID PRN PRN Reason: sore mouth Last Admin: 10/01/16 20:34 Dose: 5 ml Vancomycin HCl (Vancocin (Oral Or Rectal Use)) 250 mg PO Q6 [facility] Last Admin: 10/09/16 05:15 Dose: 250 mg - Labs Labs: 10/06/16 07:48 10/09/16 10:22 PT 11.9 SECONDS (9.7-12.2) 09/20/16 06:23 INR 1.1 09/20/16 06:23 APTT 28 SECONDS (21-34) 09/20/16 06:23
--- NOTE | 2016-10-09 16:53 | CP.PCM.PN ---
Subjective - Date & Time of Evaluation Date of Evaluation: 10/09/16 Time of Evaluation: 07:00 - Subjective Subjective: clinically same Objective - Vital Signs/Intake and Output Vital Signs (last 24 hours): Temp Pulse Resp BP Pulse Ox 97.5 F L 101 H 20 101/67 98 10/09/16 15:00 10/09/16 15:00 10/09/16 15:00 10/09/16 15:00 10/09/16 15:00 Intake and Output: 10/09/16 10/09/16 06:59 18:59 Intake Total 400 230 Balance 400 230 - Medications Medications: Current Medications Benzocaine (Anbesol) 1 ml MM TID [facility] Last Admin: 10/09/16 13:48 Dose: 1 ml Heparin Sodium (Porcine) (Heparin) 3,400 units IVP TTS [facility] Last Admin: 10/09/16 13:14 Dose: 3,400 units Metronidazole (Flagyl) 250 mg in 50 mls @ 50 mls/hr IVPB Q8 [facility] Stop: 10/11/16 22:01 Last Admin: 10/09/16 13:48 Dose: 50 mls/hr Latanoprost (Xalatan Opht) 0 ml OU HS [facility] Last Admin: 10/08/16 22:09 Dose: 2.5 ml Megestrol Acetate (Megace) 40 mg PO DAILY [facility] Last Admin: 10/09/16 09:23 Dose: 40 mg Saliva Substitute (First Magic Mouthwash) 5 ml PO QID PRN PRN Reason: sore mouth Last Admin: 10/01/16 20:34 Dose: 5 ml Vancomycin HCl (Vancocin (Oral Or Rectal Use)) 250 mg PO Q6 [facility] Last Admin: 10/09/16 13:47 Dose: 250 mg - Labs Labs: 10/06/16 07:48 10/09/16 10:22 PT 11.9 SECONDS (9.7-12.2) 09/20/16 06:23 INR 1.1 09/20/16 06:23 APTT 28 SECONDS (21-34) 09/20/16 06:23 Assessment and Plan (1) Cardiac dysrhythmia Status: Acute (2) ESRD (end stage renal disease) on dialysis Status: Acute (3) Pulmonary edema Status: Acute (4) MARCO (acute kidney injury) Status: Acute (5) Acute respiratory failure requiring reintubation Status: Acute (6) Arthritis Status: Acute (7) CHF (congestive heart failure) Status: Acute (8) Dehydration Status: Acute (9) Dehydration Status: Acute (10) Diverticulosis Status: Acute (11) Elevated CEA Status: Acute (12) Hypertension Status: Acute (13) Inguinal lymphadenopathy Status: Acute (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
--- NOTE | 2016-10-09 17:20 | CP.PCM.PN ---
Subjective - Date & Time of Evaluation Date of Evaluation: 10/08/16 Time of Evaluation: 18:00 - Subjective Subjective: Appears comfortable Objective - Vital Signs/Intake and Output Vital Signs (last 24 hours): Temp Pulse Resp BP Pulse Ox 97.5 F L 101 H 20 101/67 98 10/09/16 15:00 10/09/16 15:00 10/09/16 15:00 10/09/16 15:00 10/09/16 15:00 Intake and Output: 10/09/16 10/09/16 06:59 18:59 Intake Total 400 230 Balance 400 230 - Medications Medications: Current Medications Benzocaine (Anbesol) 1 ml MM TID [facility] Last Admin: 10/09/16 13:48 Dose: 1 ml Heparin Sodium (Porcine) (Heparin) 3,400 units IVP TTS [facility] Last Admin: 10/09/16 13:14 Dose: 3,400 units Metronidazole (Flagyl) 250 mg in 50 mls @ 50 mls/hr IVPB Q8 [facility] Stop: 10/11/16 22:01 Last Admin: 10/09/16 13:48 Dose: 50 mls/hr Latanoprost (Xalatan Opht) 0 ml OU HS [facility] Last Admin: 10/08/16 22:09 Dose: 2.5 ml Megestrol Acetate (Megace) 40 mg PO DAILY [facility] Last Admin: 10/09/16 09:23 Dose: 40 mg Saliva Substitute (First Magic Mouthwash) 5 ml PO QID PRN PRN Reason: sore mouth Last Admin: 10/01/16 20:34 Dose: 5 ml Vancomycin HCl (Vancocin (Oral Or Rectal Use)) 250 mg PO Q6 [facility] Last Admin: 10/09/16 13:47 Dose: 250 mg - Labs Labs: 10/06/16 07:48 10/09/16 10:22 PT 11.9 SECONDS (9.7-12.2) 09/20/16 06:23 INR 1.1 09/20/16 06:23 APTT 28 SECONDS (21-34) 09/20/16 06:23 - Head Exam Head Exam: ATRAUMATIC - Eye Exam Eye Exam: Normal appearance - ENT Exam ENT Exam: Mucous Membranes Dry - Respiratory Exam Respiratory Exam: NORMAL BREATHING PATTERN - Cardiovascular Exam Cardiovascular Exam: +S1, +S2 - GI/Abdominal Exam GI & Abdominal Exam: Normal Bowel Sounds Assessment and Plan (1) TTP (thrombotic thrombocytopenic purpura) Assessment & Plan: resolving H/H and plt count imnproving s/p rituximab; redose on Mondays Status: Acute
--- NOTE | 2016-10-09 17:22 | CP.PCM.PN ---
Subjective - Date & Time of Evaluation Date of Evaluation: 10/09/16 Time of Evaluation: 15:00 - Subjective Subjective: Appears comfortable Objective - Vital Signs/Intake and Output Vital Signs (last 24 hours): Temp Pulse Resp BP Pulse Ox 97.5 F L 101 H 20 101/67 98 10/09/16 15:00 10/09/16 15:00 10/09/16 15:00 10/09/16 15:00 10/09/16 15:00 Intake and Output: 10/09/16 10/09/16 06:59 18:59 Intake Total 400 230 Balance 400 230 - Medications Medications: Current Medications Benzocaine (Anbesol) 1 ml MM TID [facility] Last Admin: 10/09/16 13:48 Dose: 1 ml Heparin Sodium (Porcine) (Heparin) 3,400 units IVP TTS [facility] Last Admin: 10/09/16 13:14 Dose: 3,400 units Metronidazole (Flagyl) 250 mg in 50 mls @ 50 mls/hr IVPB Q8 [facility] Stop: 10/11/16 22:01 Last Admin: 10/09/16 13:48 Dose: 50 mls/hr Latanoprost (Xalatan Opht) 0 ml OU HS [facility] Last Admin: 10/08/16 22:09 Dose: 2.5 ml Megestrol Acetate (Megace) 40 mg PO DAILY [facility] Last Admin: 10/09/16 09:23 Dose: 40 mg Saliva Substitute (First Magic Mouthwash) 5 ml PO QID PRN PRN Reason: sore mouth Last Admin: 10/01/16 20:34 Dose: 5 ml Vancomycin HCl (Vancocin (Oral Or Rectal Use)) 250 mg PO Q6 [facility] Last Admin: 10/09/16 13:47 Dose: 250 mg - Labs Labs: 10/06/16 07:48 10/09/16 10:22 PT 11.9 SECONDS (9.7-12.2) 09/20/16 06:23 INR 1.1 09/20/16 06:23 APTT 28 SECONDS (21-34) 09/20/16 06:23 - Head Exam Head Exam: ATRAUMATIC - Eye Exam Eye Exam: Normal appearance - ENT Exam ENT Exam: Mucous Membranes Dry - Respiratory Exam Respiratory Exam: NORMAL BREATHING PATTERN - Cardiovascular Exam Cardiovascular Exam: +S1, +S2 - GI/Abdominal Exam GI & Abdominal Exam: Normal Bowel Sounds Assessment and Plan (1) TTP (thrombotic thrombocytopenic purpura) Assessment & Plan: resolving H/H and plt count improving s/p 2 doses of rituximab; redose Mondays Status: Acute
[2016-10-09] MEDS: Latanoprost 2.5 ml Opht Soln OU SCH (21:56)
--- NOTE | 2016-10-09 23:03 | CP.PCM.PN ---
Subjective - Date & Time of Evaluation Date of Evaluation: 10/09/16 Time of Evaluation: 13:00 - Subjective Subjective: Patient seen and evaluated Comfortable Objective - Vital Signs/Intake and Output Vital Signs (last 24 hours): Temp Pulse Resp BP Pulse Ox 97.5 F L 101 H 20 101/67 98 10/09/16 15:00 10/09/16 15:00 10/09/16 15:00 10/09/16 15:00 10/09/16 15:00 Intake and Output: 10/09/16 10/10/16 18:59 06:59 Intake Total 230 Balance 230 - Medications Medications: Current Medications Benzocaine (Anbesol) 1 ml MM TID [facility] Last Admin: 10/09/16 17:36 Dose: 1 ml Heparin Sodium (Porcine) (Heparin) 3,400 units IVP TTS [facility] Last Admin: 10/09/16 13:14 Dose: 3,400 units Metronidazole (Flagyl) 250 mg in 50 mls @ 50 mls/hr IVPB Q8 [facility] Stop: 10/11/16 22:01 Last Admin: 10/09/16 21:56 Dose: 50 mls/hr Latanoprost (Xalatan Opht) 0 ml OU HS [facility] Last Admin: 10/09/16 21:56 Dose: 2.5 ml Megestrol Acetate (Megace) 40 mg PO DAILY [facility] Last Admin: 10/09/16 09:23 Dose: 40 mg Saliva Substitute (First Magic Mouthwash) 5 ml PO QID PRN PRN Reason: sore mouth Last Admin: 10/01/16 20:34 Dose: 5 ml Vancomycin HCl (Vancocin (Oral Or Rectal Use)) 250 mg PO Q6 [facility] Last Admin: 10/09/16 17:36 Dose: 250 mg - Labs Labs: 10/06/16 07:48 10/09/16 10:22 PT 11.9 SECONDS (9.7-12.2) 09/20/16 06:23 INR 1.1 09/20/16 06:23 APTT 28 SECONDS (21-34) 09/20/16 06:23 - Head Exam Head Exam: ATRAUMATIC, NORMAL INSPECTION - Eye Exam Eye Exam: EOMI, PERRL - ENT Exam ENT Exam: Mucous Membranes Moist - Neck Exam Neck Exam: Full ROM - Respiratory Exam Respiratory Exam: NORMAL BREATHING PATTERN - Cardiovascular Exam Cardiovascular Exam: REGULAR RHYTHM, +S1, +S2 - GI/Abdominal Exam GI & Abdominal Exam: Soft, Normal Bowel Sounds - Extremities Exam Extremities Exam: Full ROM - Neurological Exam Neurological Exam: Alert - Skin Skin Exam: Warm Assessment and Plan - Assessment and Plan (Free Text) Assessment: 1. Cardiomyopathy with Low EF Medical management due to poor general condition. Due to dementia not a candidate for cath or AICD 2. CKD on HD 3. Dementia 4. TTP resolving
[2016-10-09] MEDS ORDERED: Sodium Chloride 0.9% 1,000 ML IV SCH (23:45)
[2016-10-10] MEDS: Vancomycin 125 MG/5 ML SOLN (ORAL/RECTAL) PO SCH ×4 (05:51→18:00)
[2016-10-10] MEDS: metroNIDAZOLE IV 250mg/50 ml 250 MG/50 ML BAG IVPB SCH ×3 (05:52→21:48)
[2016-10-10 08:05] LABS: EOS # 0.3 K/uL (0.0-0.7); LYMPH # 1.2 K/uL (1.0-4.3); MEAN CORPUSCULAR HGB CONC 31.4 g/dL (33.0-37.0); MONO # 1.2 K/uL (0.0-0.8); WHITE BLOOD COUNT 7.2 K/uL (4.8-10.8)
[2016-10-10 08:10] LABS: BASO # 0.1 K/uL (0.0-0.2); EOS % 4.3 % (0.0-4.0); LYMPH % 16.3 % (20.0-40.0); MEAN PLATELET VOLUME 9.8 fL (7.2-11.7); NRBC % 0.1 % (0.0-2.0); RED CELL DISTRIBUTION WIDTH 19.9 % (11.5-14.5)
[2016-10-10 08:11] LABS: MEAN CELL VOLUME 89.3 fL (81.0-99.0)
[2016-10-10] MEDS: Benzocaine 10% Oral Anesthetic (12 ml) MM SCH ×3 (09:13→18:00)
--- NOTE | 2016-10-10 11:15 | CP.PCM.PN ---
Subjective - Date & Time of Evaluation Date of Evaluation: 10/10/16 Time of Evaluation: 07:00 - Subjective Subjective: clinically same Objective - Vital Signs/Intake and Output Vital Signs (last 24 hours): Temp Pulse Resp BP Pulse Ox 98 F 70 20 110/70 98 10/10/16 07:34 10/10/16 07:34 10/10/16 07:34 10/10/16 07:34 10/10/16 07:34 Intake and Output: 10/10/16 10/10/16 06:59 18:59 Intake Total 170 465 Output Total 2 Balance 168 465 - Medications Medications: Current Medications Benzocaine (Anbesol) 1 ml MM TID [facility] Last Admin: 10/10/16 09:13 Dose: 1 ml Heparin Sodium (Porcine) (Heparin) 3,400 units IVP TTS [facility] Last Admin: 10/09/16 13:14 Dose: 3,400 units Metronidazole (Flagyl) 250 mg in 50 mls @ 50 mls/hr IVPB Q8 [facility] Stop: 10/11/16 22:01 Last Admin: 10/10/16 05:52 Dose: 50 mls/hr Sodium Chloride (Sodium Chloride 0.9%) 1,000 mls @ 42 mls/hr IV .[id number] [facility] Stop: 10/10/16 12:00 Last Admin: 10/10/16 00:00 Dose: 42 mls/hr Latanoprost (Xalatan Opht) 0 ml OU HS [facility] Last Admin: 10/09/16 21:56 Dose: 2.5 ml Megestrol Acetate (Megace) 40 mg PO DAILY [facility] Last Admin: 10/10/16 09:13 Dose: 40 mg Saliva Substitute (First Magic Mouthwash) 5 ml PO QID PRN PRN Reason: sore mouth Last Admin: 10/01/16 20:34 Dose: 5 ml Vancomycin HCl (Vancocin (Oral Or Rectal Use)) 250 mg PO Q6 [facility] Last Admin: 10/10/16 05:51 Dose: 250 mg - Labs Labs: 10/10/16 07:58 10/09/16 10:22 PT 11.9 SECONDS (9.7-12.2) 09/20/16 06:23 INR 1.1 09/20/16 06:23 APTT 28 SECONDS (21-34) 09/20/16 06:23 - Constitutional Appears: Well - Head Exam Head Exam: ATRAUMATIC, NORMAL INSPECTION, NORMOCEPHALIC - Eye Exam Eye Exam: EOMI, Normal appearance, PERRL Pupil Exam: NORMAL ACCOMODATION, PERRL - ENT Exam ENT Exam: Mucous Membranes Moist, Normal Exam - Neck Exam Neck Exam: Full ROM, Normal Inspection. absent: Lymphadenopathy - Respiratory Exam Respiratory Exam: Decreased Breath Sounds - Cardiovascular Exam Cardiovascular Exam: REGULAR RHYTHM, +S1, +S2 - GI/Abdominal Exam GI & Abdominal Exam: Soft, Diminished Bowel Sounds - Rectal Exam Rectal Exam: Deferred Assessment and Plan (1) Cardiac dysrhythmia Status: Acute (2) ESRD (end stage renal disease) on dialysis Status: Acute (3) Pulmonary edema Status: Acute (4) MARCO (acute kidney injury) Status: Acute (5) Acute respiratory failure requiring reintubation Status: Acute (6) Arthritis Status: Acute (7) CHF (congestive heart failure) Status: Acute (8) Dehydration Status: Acute (9) Dehydration Status: Acute (10) Diverticulosis Status: Acute (11) Elevated CEA Status: Acute (12) Hypertension Status: Acute (13) Inguinal lymphadenopathy Status: Acute (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
--- NOTE | 2016-10-10 17:52 | CP.PCM.PN ---
Subjective - Date & Time of Evaluation Date of Evaluation: 10/10/16 Time of Evaluation: 17:52 - Subjective Subjective: pt is seen and examined, follow up consult is dictated #[id number] for hd in am Objective - Vital Signs/Intake and Output Vital Signs (last 24 hours): Temp Pulse Resp BP Pulse Ox 98.4 F 93 H 20 123/82 98 10/10/16 15:00 10/10/16 15:00 10/10/16 15:00 10/10/16 15:00 10/10/16 15:00 Intake and Output: 10/10/16 10/10/16 06:59 18:59 Intake Total 170 1099 Output Total 2 Balance 168 1099 - Medications Medications: Current Medications Benzocaine (Anbesol) 1 ml MM TID [facility] Last Admin: 10/10/16 14:10 Dose: 1 ml Heparin Sodium (Porcine) (Heparin) 3,400 units IVP TTS [facility] Last Admin: 10/09/16 13:14 Dose: 3,400 units Metronidazole (Flagyl) 250 mg in 50 mls @ 50 mls/hr IVPB Q8 [facility] Stop: 10/11/16 22:01 Last Admin: 10/10/16 14:55 Dose: 50 mls/hr Latanoprost (Xalatan Opht) 0 ml OU HS [facility] Last Admin: 10/09/16 21:56 Dose: 2.5 ml Megestrol Acetate (Megace) 40 mg PO DAILY [facility] Last Admin: 10/10/16 09:13 Dose: 40 mg Saliva Substitute (First Magic Mouthwash) 5 ml PO QID PRN PRN Reason: sore mouth Last Admin: 10/01/16 20:34 Dose: 5 ml Vancomycin HCl (Vancocin (Oral Or Rectal Use)) 250 mg PO Q6 [facility] Last Admin: 10/10/16 12:33 Dose: 250 mg - Labs Labs: 10/10/16 07:58 10/09/16 10:22 PT 11.9 SECONDS (9.7-12.2) 09/20/16 06:23 INR 1.1 09/20/16 06:23 APTT 28 SECONDS (21-34) 09/20/16 06:23
[2016-10-10] MEDS: Latanoprost 2.5 ml Opht Soln OU SCH (21:48)
--- NOTE | 2016-10-10 22:34 | PN ---
FOLLOWUP RENAL CONSULTATION LOCATION: The patient is located in room 354, bed A. REQUESTED BY: Kavon Ureña MD REASON FOR FOLLOWUP: End-stage renal disease for continuation of hemodialysis. HISTORY OF PRESENT ILLNESS: The patient is an 80-year-old elderly, female with a past medical history significant for hypertension, rheumatoid arthritis, cardiomyopathy, CHF, respiratory failure, thrombocytopenia, TTP status post plasmapheresis x3 in the last 2-1/2 months with relapsing TTP started on rituximab q. weekly. The patient is not in acute distress. The patient was seen and examined during dialysis. UF goal is about 1.5 L. Not in distress, no complaints. PHYSICAL EXAMINATION: VITAL SIGNS: This morning, blood pressure 109/61, pulse 104, respirations 22 and temperature is about 98.1. GENERAL: The patient is an 80-year-old elderly female, moderately build, moderately nourished, not in acute distress. HEENT: Pupils are normal and reactive to light and accommodation. Conjunctivae pink. Sclerae anicteric. Tongue is moist. Trachea is midline. LUNGS: Symmetric on both sides. Bilateral breath sounds present. Clear to auscultation. CARDIOVASCULAR SYSTEM: [place] at the fifth intercostal space, midclavicular line. S1 and S2 audible. No murmur. No gallop. ABDOMEN: Normal in appearance. Soft, tympanic. No guarding. No rigidity. No hepatosplenomegaly. CENTRAL NERVOUS SYSTEM: The patient is alert, awake and oriented x2. Sensory and motor system is grossly within normal limits. EXTREMITIES: No cyanosis. No clubbing. No edema. CURRENT MEDICATIONS: Include as follows; vancomycin 250 mg p.o. q. 6 hours, Megace 40 mg daily. The patient is receiving heparin 1700 units in each port of the PermCath post-dialysis and Flagyl 500 mg IV piggyback q.8 hours. LABORATORY DATA: As of 10/09/2016, sodium 135, potassium 4.5, chloride 97, CO2 of 24, BUN 40, creatinine 5.3, glucose 148, calcium is 9.3, total bili 0.6, AST 24, ALT 28, alkaline phosphatase 91, total protein 6.6 and albumin 3.2. Stool for C. diff toxin is negative as of 10/07/2016. ASSESSMENT AND PLAN: In summary, the patient is an 80-year-old elderly female with history of hypertension, rheumatoid arthritis, congestive heart failure, cardiomyopathy, thrombotic thrombocytopenic purpura and renal failure on hemodialysis. 1. Renal failure, most likely end-stage renal disease secondary to thrombotic microangiopathy secondary to thrombotic thrombocytopenic purpura, cannot rule out acute tubular necrosis, less likely. 2. Hypertension, blood pressure is stable, off antihypertensive medications. 3. Cardiomyopathy. 4. Thrombotic thrombocytopenic purpura. Continuing rituximab as per hematology recommendations. We will give gentle IV hydration normal saline at 40 mL per hour for 24 hours. We will follow with you. Thank you for allowing me to participate in your patient's care. Horacio Graham MD
[2016-10-11] MEDS: Vancomycin 125 MG/5 ML SOLN (ORAL/RECTAL) PO SCH ×4 (00:33→18:13)
[2016-10-11] MEDS: metroNIDAZOLE IV 250mg/50 ml 250 MG/50 ML BAG IVPB SCH ×3 (06:46→22:04)
--- NOTE | 2016-10-11 07:45 | CP.PCM.PN ---
Subjective - Date & Time of Evaluation Date of Evaluation: 10/10/16 Time of Evaluation: 11:20 - Subjective Subjective: Patient seen and evaluated Comfortable Denies chest pain and dyspnea Objective - Vital Signs/Intake and Output Vital Signs (last 24 hours): Temp Pulse Resp BP Pulse Ox 98.6 F 91 H 20 132/73 97 10/11/16 00:00 10/11/16 00:00 10/11/16 00:00 10/11/16 00:00 10/11/16 00:00 Intake and Output: 10/11/16 10/11/16 06:59 18:59 Intake Total 170 Balance 170 - Medications Medications: Current Medications Benzocaine (Anbesol) 1 ml MM TID [facility] Last Admin: 10/10/16 18:00 Dose: 1 ml Epoetin Herve (Procrit) 10,000 unit SC TTS [facility] Heparin Sodium (Porcine) (Heparin) 3,400 units IVP TTS [facility] Last Admin: 10/09/16 13:14 Dose: 3,400 units Metronidazole (Flagyl) 250 mg in 50 mls @ 50 mls/hr IVPB Q8 [facility] Stop: 10/11/16 22:01 Last Admin: 10/11/16 06:46 Dose: 50 mls/hr Latanoprost (Xalatan Opht) 0 ml OU HS [facility] Last Admin: 10/10/16 21:48 Dose: 2.5 ml Megestrol Acetate (Megace) 40 mg PO DAILY [facility] Last Admin: 10/10/16 09:13 Dose: 40 mg Paricalcitol (Zemplar) 1 mcg IV TTS [facility] Saliva Substitute (First Magic Mouthwash) 5 ml PO QID PRN PRN Reason: sore mouth Last Admin: 10/01/16 20:34 Dose: 5 ml Vancomycin HCl (Vancocin (Oral Or Rectal Use)) 250 mg PO Q6 [facility] Last Admin: 10/11/16 06:46 Dose: 250 mg Vitamin B Complex/Vit C/Folic Acid (Nephro-Andrea) 1 tab PO 0800 [facility] - Labs Labs: 10/10/16 07:58 10/09/16 10:22 PT 11.9 SECONDS (9.7-12.2) 09/20/16 06:23 INR 1.1 09/20/16 06:23 APTT 28 SECONDS (21-34) 09/20/16 06:23 - Head Exam Head Exam: ATRAUMATIC, NORMAL INSPECTION - Eye Exam Eye Exam: EOMI, PERRL Pupil Exam: NORMAL ACCOMODATION - ENT Exam ENT Exam: Mucous Membranes Moist - Neck Exam Neck Exam: Full ROM - Respiratory Exam Respiratory Exam: Clear to Ausculation Bilateral, NORMAL BREATHING PATTERN - Cardiovascular Exam Cardiovascular Exam: REGULAR RHYTHM, +S1, +S2 - GI/Abdominal Exam GI & Abdominal Exam: Soft, Normal Bowel Sounds - Extremities Exam Extremities Exam: Full ROM - Neurological Exam Neurological Exam: Alert - Skin Skin Exam: Warm Assessment and Plan - Assessment and Plan (Free Text) Assessment: 1. Cardiomyopathy with Low EF Medical management due to poor general condition. Due to dementia not a candidate for cath or AICD 2. CKD on HD 3. Dementia 4. TTP resolving
[2016-10-11] MEDS: Multivitamin Vitamin B Complex (Nephro-Vite) Tab PO SCH (08:51)
[2016-10-11] MEDS ORDERED: EPOETIN ALFA 10,000 UNIT/ML ML SC SCH (10:00)
[2016-10-11] MEDS: Benzocaine 10% Oral Anesthetic (12 ml) MM SCH ×3 (10:16→18:13)
[2016-10-11] MEDS: Epoetin Alfa 10,000 unit/ml Dialysis SC SCH (10:41)
[2016-10-11] MEDS: Paricalcitol 2 mcg/ml Inj IV SCH (10:42)
--- NOTE | 2016-10-11 11:59 | CP.PCM.PN ---
Subjective - Date & Time of Evaluation Date of Evaluation: 10/11/16 Time of Evaluation: 11:58 - Subjective Subjective: pt is seen and examined, follow up consult is dictated #[id number] seen in hd, uf 1.5 lit stable tx Objective - Vital Signs/Intake and Output Vital Signs (last 24 hours): Temp Pulse Resp BP Pulse Ox 98 F 102 H 17 100/82 98 10/11/16 09:05 10/11/16 09:05 10/11/16 09:05 10/11/16 11:35 10/11/16 09:05 Intake and Output: 10/11/16 10/11/16 06:59 18:59 Intake Total 170 Balance 170 - Medications Medications: Current Medications Benzocaine (Anbesol) 1 ml MM TID [facility] Last Admin: 10/11/16 10:16 Dose: Not Given Epoetin Herve (Procrit) 10,000 unit SC TTS [facility] Last Admin: 10/11/16 10:41 Dose: 10,000 unit Heparin Sodium (Porcine) (Heparin) 3,400 units IVP TTS [facility] Last Admin: 10/11/16 10:41 Dose: 3,400 units Metronidazole (Flagyl) 250 mg in 50 mls @ 50 mls/hr IVPB Q8 [facility] Stop: 10/11/16 22:01 Last Admin: 10/11/16 06:46 Dose: 50 mls/hr Latanoprost (Xalatan Opht) 0 ml OU HS [facility] Last Admin: 10/10/16 21:48 Dose: 2.5 ml Megestrol Acetate (Megace) 40 mg PO DAILY [facility] Last Admin: 10/11/16 10:16 Dose: Not Given Paricalcitol (Zemplar) 1 mcg IV TTS [facility] Last Admin: 10/11/16 10:42 Dose: 1 mcg Saliva Substitute (First Magic Mouthwash) 5 ml PO QID PRN PRN Reason: sore mouth Last Admin: 10/01/16 20:34 Dose: 5 ml Vancomycin HCl (Vancocin (Oral Or Rectal Use)) 250 mg PO Q6 [facility] Last Admin: 10/11/16 06:46 Dose: 250 mg Vitamin B Complex/Vit C/Folic Acid (Nephro-Andrea) 1 tab PO 0800 [facility] Last Admin: 10/11/16 08:51 Dose: 1 tab - Labs Labs: 10/10/16 07:58 10/09/16 10:22 PT 11.9 SECONDS (9.7-12.2) 09/20/16 06:23 INR 1.1 09/20/16 06:23 APTT 28 SECONDS (21-34) 09/20/16 06:23
--- NOTE | 2016-10-11 13:44 | CP.PCM.PN ---
Subjective - Date & Time of Evaluation Date of Evaluation: 10/11/16 Time of Evaluation: 08:00 - Subjective Subjective: CLINICALLY SAME Objective - Vital Signs/Intake and Output Vital Signs (last 24 hours): Temp Pulse Resp BP Pulse Ox 97.9 F 111 H 9 L 142/70 100 10/11/16 12:05 10/11/16 12:05 10/11/16 12:05 10/11/16 12:05 10/11/16 12:05 Intake and Output: 10/11/16 10/11/16 06:59 18:59 Intake Total 170 Balance 170 - Medications Medications: Current Medications Benzocaine (Anbesol) 1 ml MM TID [facility] Last Admin: 10/11/16 13:40 Dose: 1 ml Epoetin Herve (Procrit) 10,000 unit SC TTS [facility] Last Admin: 10/11/16 10:41 Dose: 10,000 unit Heparin Sodium (Porcine) (Heparin) 3,400 units IVP TTS [facility] Last Admin: 10/11/16 10:41 Dose: 3,400 units Metronidazole (Flagyl) 250 mg in 50 mls @ 50 mls/hr IVPB Q8 [facility] Stop: 10/11/16 22:01 Last Admin: 10/11/16 13:40 Dose: 50 mls/hr Latanoprost (Xalatan Opht) 0 ml OU HS [facility] Last Admin: 10/10/16 21:48 Dose: 2.5 ml Megestrol Acetate (Megace) 40 mg PO DAILY [facility] Last Admin: 10/11/16 10:16 Dose: Not Given Paricalcitol (Zemplar) 1 mcg IV TTS [facility] Last Admin: 10/11/16 10:42 Dose: 1 mcg Saliva Substitute (First Magic Mouthwash) 5 ml PO QID PRN PRN Reason: sore mouth Last Admin: 10/01/16 20:34 Dose: 5 ml Vancomycin HCl (Vancocin (Oral Or Rectal Use)) 250 mg PO Q6 [facility] Last Admin: 10/11/16 12:38 Dose: 250 mg Vitamin B Complex/Vit C/Folic Acid (Nephro-Andrea) 1 tab PO 0800 [facility] Last Admin: 10/11/16 08:51 Dose: 1 tab - Labs Labs: 10/10/16 07:58 10/09/16 10:22 PT 11.9 SECONDS (9.7-12.2) 09/20/16 06:23 INR 1.1 09/20/16 06:23 APTT 28 SECONDS (21-34) 09/20/16 06:23 - Constitutional Appears: Well - Head Exam Head Exam: ATRAUMATIC, NORMAL INSPECTION, NORMOCEPHALIC - Eye Exam Eye Exam: EOMI, Normal appearance, PERRL - ENT Exam ENT Exam: Mucous Membranes Moist, Normal Exam - Neck Exam Neck Exam: Full ROM, Normal Inspection. absent: Lymphadenopathy - Respiratory Exam Respiratory Exam: Decreased Breath Sounds - Cardiovascular Exam Cardiovascular Exam: REGULAR RHYTHM, +S1, +S2. absent: Murmur - GI/Abdominal Exam GI & Abdominal Exam: Diminished Bowel Sounds - Rectal Exam Rectal Exam: Deferred Assessment and Plan (1) Cardiac dysrhythmia Status: Acute (2) ESRD (end stage renal disease) on dialysis Status: Acute (3) Pulmonary edema Status: Acute (4) MARCO (acute kidney injury) Status: Acute (5) Acute respiratory failure requiring reintubation Status: Acute (6) Arthritis Status: Acute (7) CHF (congestive heart failure) Status: Acute (8) Dehydration Status: Acute (9) Dehydration Status: Acute (10) Diverticulosis Status: Acute (11) Elevated CEA Status: Acute (12) Hypertension Status: Acute (13) Inguinal lymphadenopathy Status: Acute (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
--- NOTE | 2016-10-11 21:00 | CP.PCM.PN ---
Subjective - Date & Time of Evaluation Date of Evaluation: 10/10/16 Time of Evaluation: 12:00 - Subjective Subjective: Appears comfortable Plt count drop noted with future rituximab, will treat on Thursday as medication cleared by dialysis recommend dialysis early Thursday, followed by Rituximab. Objective - Vital Signs/Intake and Output Vital Signs (last 24 hours): Temp Pulse Resp BP Pulse Ox 97.5 F L 95 H 20 135/76 97 10/11/16 15:00 10/11/16 15:00 10/11/16 15:00 10/11/16 15:00 10/11/16 15:00 Intake and Output: 10/11/16 10/12/16 18:59 06:59 Intake Total 290 Balance 290 - Medications Medications: Current Medications Benzocaine (Anbesol) 1 ml MM TID [facility] Last Admin: 10/11/16 18:13 Dose: 1 ml Epoetin Herve (Procrit) 10,000 unit SC TTS [facility] Last Admin: 10/11/16 10:41 Dose: 10,000 unit Heparin Sodium (Porcine) (Heparin) 3,400 units IVP TTS [facility] Last Admin: 10/11/16 10:41 Dose: 3,400 units Metronidazole (Flagyl) 250 mg in 50 mls @ 50 mls/hr IVPB Q8 [facility] Stop: 10/11/16 22:01 Last Admin: 10/11/16 13:40 Dose: 50 mls/hr Latanoprost (Xalatan Opht) 0 ml OU HS [facility] Last Admin: 10/10/16 21:48 Dose: 2.5 ml Megestrol Acetate (Megace) 40 mg PO DAILY [facility] Last Admin: 10/11/16 10:16 Dose: Not Given Paricalcitol (Zemplar) 1 mcg IV TTS [facility] Last Admin: 10/11/16 10:42 Dose: 1 mcg Saliva Substitute (First Magic Mouthwash) 5 ml PO QID PRN PRN Reason: sore mouth Last Admin: 10/01/16 20:34 Dose: 5 ml Vancomycin HCl (Vancocin (Oral Or Rectal Use)) 250 mg PO Q6 [facility] Last Admin: 10/11/16 18:13 Dose: 250 mg Vitamin B Complex/Vit C/Folic Acid (Nephro-Andrea) 1 tab PO 0800 [facility] Last Admin: 10/11/16 08:51 Dose: 1 tab - Labs Labs: 10/10/16 07:58 10/09/16 10:22 PT 11.9 SECONDS (9.7-12.2) 09/20/16 06:23 INR 1.1 09/20/16 06:23 APTT 28 SECONDS (21-34) 09/20/16 06:23 - Head Exam Head Exam: ATRAUMATIC - Eye Exam Eye Exam: Normal appearance - ENT Exam ENT Exam: Mucous Membranes Dry - Respiratory Exam Respiratory Exam: NORMAL BREATHING PATTERN - Cardiovascular Exam Cardiovascular Exam: +S1, +S2 - GI/Abdominal Exam GI & Abdominal Exam: Normal Bowel Sounds Assessment and Plan (1) 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
--- NOTE | 2016-10-11 21:01 | CP.PCM.PN ---
Subjective - Date & Time of Evaluation Date of Evaluation: 10/11/16 Time of Evaluation: 18:00 - Subjective Subjective: Appears comfortable Objective - Vital Signs/Intake and Output Vital Signs (last 24 hours): Temp Pulse Resp BP Pulse Ox 97.5 F L 95 H 20 135/76 97 10/11/16 15:00 10/11/16 15:00 10/11/16 15:00 10/11/16 15:00 10/11/16 15:00 Intake and Output: 10/11/16 10/12/16 18:59 06:59 Intake Total 290 Balance 290 - Medications Medications: Current Medications Benzocaine (Anbesol) 1 ml MM TID [facility] Last Admin: 10/11/16 18:13 Dose: 1 ml Epoetin Herve (Procrit) 10,000 unit SC TTS [facility] Last Admin: 10/11/16 10:41 Dose: 10,000 unit Heparin Sodium (Porcine) (Heparin) 3,400 units IVP TTS [facility] Last Admin: 10/11/16 10:41 Dose: 3,400 units Metronidazole (Flagyl) 250 mg in 50 mls @ 50 mls/hr IVPB Q8 [facility] Stop: 10/11/16 22:01 Last Admin: 10/11/16 13:40 Dose: 50 mls/hr Latanoprost (Xalatan Opht) 0 ml OU HS [facility] Last Admin: 10/10/16 21:48 Dose: 2.5 ml Megestrol Acetate (Megace) 40 mg PO DAILY [facility] Last Admin: 10/11/16 10:16 Dose: Not Given Paricalcitol (Zemplar) 1 mcg IV TTS [facility] Last Admin: 10/11/16 10:42 Dose: 1 mcg Saliva Substitute (First Magic Mouthwash) 5 ml PO QID PRN PRN Reason: sore mouth Last Admin: 10/01/16 20:34 Dose: 5 ml Vancomycin HCl (Vancocin (Oral Or Rectal Use)) 250 mg PO Q6 [facility] Last Admin: 10/11/16 18:13 Dose: 250 mg Vitamin B Complex/Vit C/Folic Acid (Nephro-Andrea) 1 tab PO 0800 [facility] Last Admin: 10/11/16 08:51 Dose: 1 tab - Labs Labs: 10/10/16 07:58 10/09/16 10:22 PT 11.9 SECONDS (9.7-12.2) 09/20/16 06:23 INR 1.1 09/20/16 06:23 APTT 28 SECONDS (21-34) 09/20/16 06:23 - Head Exam Head Exam: ATRAUMATIC - Eye Exam Eye Exam: Normal appearance - ENT Exam ENT Exam: Mucous Membranes Dry - Respiratory Exam Respiratory Exam: NORMAL BREATHING PATTERN - Cardiovascular Exam Cardiovascular Exam: +S1, +S2 - GI/Abdominal Exam GI & Abdominal Exam: Normal Bowel Sounds Assessment and Plan (1) TTP (thrombotic thrombocytopenic purpura) Assessment & Plan: Refractory to plasma exchange on Rituximab for 3rd dosing Thursday after dialysis Status: Acute
[2016-10-11] MEDS: Latanoprost 2.5 ml Opht Soln OU SCH (22:04)
--- NOTE | 2016-10-11 22:23 | CP.PCM.PN ---
Subjective - Date & Time of Evaluation Date of Evaluation: 10/11/16 Time of Evaluation: 07:25 - Subjective Subjective: Patient seen and evaluated Comfortable Objective - Vital Signs/Intake and Output Vital Signs (last 24 hours): Temp Pulse Resp BP Pulse Ox 97.5 F L 95 H 20 135/76 97 10/11/16 15:00 10/11/16 15:00 10/11/16 15:00 10/11/16 15:00 10/11/16 15:00 Intake and Output: 10/11/16 10/12/16 18:59 06:59 Intake Total 290 Balance 290 - Medications Medications: Current Medications Benzocaine (Anbesol) 1 ml MM TID [facility] Last Admin: 10/11/16 18:13 Dose: 1 ml Epoetin Herve (Procrit) 10,000 unit SC TTS [facility] Last Admin: 10/11/16 10:41 Dose: 10,000 unit Heparin Sodium (Porcine) (Heparin) 3,400 units IVP TTS [facility] Last Admin: 10/11/16 10:41 Dose: 3,400 units Latanoprost (Xalatan Opht) 0 ml OU HS [facility] Last Admin: 10/11/16 22:04 Dose: 2.5 ml Megestrol Acetate (Megace) 40 mg PO DAILY [facility] Last Admin: 10/11/16 10:16 Dose: Not Given Paricalcitol (Zemplar) 1 mcg IV TTS [facility] Last Admin: 10/11/16 10:42 Dose: 1 mcg Saliva Substitute (First Magic Mouthwash) 5 ml PO QID PRN PRN Reason: sore mouth Last Admin: 10/01/16 20:34 Dose: 5 ml Vancomycin HCl (Vancocin (Oral Or Rectal Use)) 250 mg PO Q6 [facility] Last Admin: 10/11/16 18:13 Dose: 250 mg Vitamin B Complex/Vit C/Folic Acid (Nephro-Andrea) 1 tab PO 0800 [facility] Last Admin: 10/11/16 08:51 Dose: 1 tab - Labs Labs: 10/10/16 07:58 10/09/16 10:22 PT 11.9 SECONDS (9.7-12.2) 09/20/16 06:23 INR 1.1 09/20/16 06:23 APTT 28 SECONDS (21-34) 08/12/17 06:23 - Head Exam Head Exam: ATRAUMATIC, NORMAL INSPECTION - Eye Exam Eye Exam: EOMI, PERRL - ENT Exam ENT Exam: Mucous Membranes Moist - Neck Exam Neck Exam: Full ROM - Respiratory Exam Respiratory Exam: Clear to Ausculation Bilateral, NORMAL BREATHING PATTERN - Cardiovascular Exam Cardiovascular Exam: REGULAR RHYTHM, +S1, +S2 - GI/Abdominal Exam GI & Abdominal Exam: Soft, Normal Bowel Sounds - Extremities Exam Extremities Exam: Full ROM - Neurological Exam Neurological Exam: Alert, Awake - Skin Skin Exam: Warm Assessment and Plan - Assessment and Plan (Free Text) Assessment: 1. Cardiomyopathy with Low EF Medical management due to poor general condition. Due to dementia not a candidate for cath or AICD 2. CKD on HD 3. Dementia 4. TTP resolving
[2016-10-12] MEDS: Vancomycin 125 MG/5 ML SOLN (ORAL/RECTAL) PO SCH ×5 (00:59→23:58)
--- NOTE | 2016-10-12 01:48 | PN ---
FOLLOWUP RENAL CONSULTATION LOCATION: The patient is located in room #354, bed #A. REQUESTED BY: Kavon Ureña MD REASON FOR FOLLOWUP: End-stage renal disease, TTP and for continuation hemodialysis. SUBJECTIVE: The patient is an 80-year-old elderly female from the [facility] who was admitted initially with altered mental status, hypertension and rheumatoid arthritis. Subsequently, the patient was found to have thrombocytopenia; renal failure; TTP and cardiomyopathy; status post respiratory failure, intubation x2; status post plasmapheresis x3 sessions with relapsing TTP, started on rituximab q. weekly. The patient was seen and examined during dialysis. The patient denies any complaints. Ultra filtration goal was about 1.5 L. Not in distress. No complaints. PHYSICAL EXAMINATION VITAL SIGNS: Blood pressure 142/70, pulse 111, respirations 20, temperature 97.9 and saturation 100%. Height 5 feet 2 inches and weight 120 pounds. GENERAL: The patient is an 80-year-old elderly female, moderately built, moderately nourished and not in distress. HEENT: Pupils normal and reactive to light and accommodation. Conjunctivae pink. Sclerae anicteric. Tongue is moist. Trachea is midline. LUNGS: Symmetry on both side, bilateral breath sounds present. Clear on auscultation. CARDIOVASCULAR: [place] at the sixth intercostal space, midclavicular line, S1 and S2 audible. No murmur or gallop. ABDOMEN: Normal in appearance, soft, tympanic. No guarding. No rigidity. No hepatosplenomegaly. CENTRAL NERVOUS SYSTEM: The patient is alert, awake and oriented x1 to x2. Sensory and motor system is grossly within normal limits. EXTREMITIES: No cyanosis. No clubbing. No edema. CURRENT MEDICATIONS: Include as follows: Magic Mouthwash 5 mL q.i.d.; heparin 1700 units 3 times a week in each port of Perm-A-Cath; Megace 40 mg p.o. daily; Nephro-Andrea 1 tablet daily; Procrit 10,000 units 3 times a week; vancomycin 250 mg p.o. q. 6 hours; Zemplar 1 mcg IV 3 times a weeks and Xalatan eye drops. LABORATORY DATA: As of 10/10/2016, WBC 7.2, hemoglobin 9.1, hematocrit 29 and platelets 109. ASSESSMENT AND PLAN: In summary, the patient is a 80-year-old elderly female with hypertension; rheumatoid arthritis; congestive heart failure; cardiomyopathy; thrombotic thrombocytopenic purpura; renal failure, on hemodialysis 3 times a week. 1. 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 The patient is dialysis dependent for more than 2-1/2 months. Continue hemodialysis 3 times a week, Thursday, , Thursday. 2. Hypertension. Blood pressure is stable off antihypertensive medications and the patient is also off IV fluids since yesterday afternoon. 3. Cardiomyopathy. 4. Thrombotic thrombocytopenic purpura. The patient has relapsing thrombotic thrombocytopenic purpura, continue Rituximab as per the hematology recommendation. We will follow with you. Thank you for allowing me to participate in your patient's care. Overall prognosis is guarded. Horacio Graham MD
[2016-10-12] MEDS: Multivitamin Vitamin B Complex (Nephro-Vite) Tab PO SCH (08:59)
[2016-10-12] MEDS: Benzocaine 10% Oral Anesthetic (12 ml) MM SCH ×3 (09:00→17:35)
--- NOTE | 2016-10-12 13:50 | CP.PCM.PN ---
Subjective - Date & Time of Evaluation Date of Evaluation: 10/12/16 Time of Evaluation: 08:00 - Subjective Subjective: clinically same Objective - Vital Signs/Intake and Output Vital Signs (last 24 hours): Temp Pulse Resp BP Pulse Ox 98.8 F 103 H 20 100/61 97 10/12/16 08:11 10/12/16 08:11 10/12/16 08:11 10/12/16 08:11 10/12/16 08:11 Intake and Output: 10/12/16 10/12/16 06:59 18:59 Intake Total 250 Balance 250 - Medications Medications: Current Medications Benzocaine (Anbesol) 1 ml MM TID [facility] Last Admin: 10/12/16 13:43 Dose: 1 ml Epoetin Herve (Procrit) 10,000 unit SC TTS [facility] Last Admin: 10/11/16 10:41 Dose: 10,000 unit Latanoprost (Xalatan Opht) 0 ml OU HS [facility] Last Admin: 10/11/16 22:04 Dose: 2.5 ml Megestrol Acetate (Megace) 40 mg PO DAILY [facility] Last Admin: 10/12/16 09:00 Dose: 40 mg Paricalcitol (Zemplar) 1 mcg IV TTS [facility] Last Admin: 10/11/16 10:42 Dose: 1 mcg Saliva Substitute (First Magic Mouthwash) 5 ml PO QID PRN PRN Reason: sore mouth Last Admin: 10/01/16 20:34 Dose: 5 ml Vancomycin HCl (Vancocin (Oral Or Rectal Use)) 250 mg PO Q6 [facility] Last Admin: 10/12/16 11:35 Dose: 250 mg Vitamin B Complex/Vit C/Folic Acid (Nephro-Andrea) 1 tab PO 0800 [facility] Last Admin: 10/12/16 08:59 Dose: 1 tab - Labs Labs: 10/10/16 07:58 10/09/16 10:22 PT 11.9 SECONDS (9.7-12.2) 09/20/16 06:23 INR 1.1 09/20/16 06:23 APTT 28 SECONDS (21-34) 09/20/16 06:23 - Constitutional Appears: Well - Head Exam Head Exam: ATRAUMATIC, NORMAL INSPECTION, NORMOCEPHALIC - Eye Exam Eye Exam: EOMI, Normal appearance, PERRL - ENT Exam ENT Exam: Mucous Membranes Moist, Normal Exam - Neck Exam Neck Exam: Full ROM, Normal Inspection. absent: Lymphadenopathy - Respiratory Exam Respiratory Exam: Decreased Breath Sounds - Cardiovascular Exam Cardiovascular Exam: REGULAR RHYTHM, +S1, +S2. absent: Murmur - GI/Abdominal Exam GI & Abdominal Exam: Diminished Bowel Sounds - Rectal Exam Rectal Exam: Deferred Assessment and Plan (1) Cardiac dysrhythmia Status: Acute (2) ESRD (end stage renal disease) on dialysis Status: Acute (3) Pulmonary edema Status: Acute (4) MARCO (acute kidney injury) Status: Acute (5) Acute respiratory failure requiring reintubation Status: Acute (6) Arthritis Status: Acute (7) CHF (congestive heart failure) Status: Acute (8) Dehydration Status: Acute (9) Dehydration Status: Acute (10) Diverticulosis Status: Acute (11) Elevated CEA Status: Acute (12) Hypertension Status: Acute (13) Inguinal lymphadenopathy Status: Acute (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
--- NOTE | 2016-10-12 15:35 | CP.PCM.PN ---
Subjective - Date & Time of Evaluation Date of Evaluation: 10/12/16 Time of Evaluation: 10:00 - Subjective Subjective: no new complaints Objective - Vital Signs/Intake and Output Vital Signs (last 24 hours): Temp Pulse Resp BP Pulse Ox 98.8 F 103 H 20 100/61 97 10/12/16 08:11 10/12/16 08:11 10/12/16 08:11 10/12/16 08:11 10/12/16 08:11 Intake and Output: 10/12/16 10/12/16 06:59 18:59 Intake Total 250 200 Balance 250 200 - Medications Medications: Current Medications Benzocaine (Anbesol) 1 ml MM TID [facility] Last Admin: 10/12/16 13:43 Dose: 1 ml Epoetin Herve (Procrit) 10,000 unit SC TTS [facility] Last Admin: 10/11/16 10:41 Dose: 10,000 unit Latanoprost (Xalatan Opht) 0 ml OU HS [facility] Last Admin: 10/11/16 22:04 Dose: 2.5 ml Megestrol Acetate (Megace) 40 mg PO DAILY [facility] Last Admin: 10/12/16 09:00 Dose: 40 mg Paricalcitol (Zemplar) 1 mcg IV TTS [facility] Last Admin: 10/11/16 10:42 Dose: 1 mcg Saliva Substitute (First Magic Mouthwash) 5 ml PO QID PRN PRN Reason: sore mouth Last Admin: 10/01/16 20:34 Dose: 5 ml Vancomycin HCl (Vancocin (Oral Or Rectal Use)) 250 mg PO Q6 [facility] Last Admin: 10/12/16 11:35 Dose: 250 mg Vitamin B Complex/Vit C/Folic Acid (Nephro-Andrea) 1 tab PO 0800 [facility] Last Admin: 10/12/16 08:59 Dose: 1 tab - Labs Labs: 10/10/16 07:58 10/09/16 10:22 PT 11.9 SECONDS (9.7-12.2) 09/20/16 06:23 INR 1.1 09/20/16 06:23 APTT 28 SECONDS (21-34) 09/20/16 06:23 - Constitutional Appears: Non-toxic, Chronically Ill - Head Exam Head Exam: NORMOCEPHALIC - Eye Exam Eye Exam: PERRL - ENT Exam ENT Exam: Mucous Membranes Dry - Neck Exam Neck Exam: absent: Lymphadenopathy - Respiratory Exam Respiratory Exam: Decreased Breath Sounds - Cardiovascular Exam Cardiovascular Exam: REGULAR RHYTHM - GI/Abdominal Exam GI & Abdominal Exam: Distended, Soft - Rectal Exam Rectal Exam: Deferred - Exam Exam: NORMAL INSPECTION Assessment and Plan (1) Cardiac dysrhythmia Status: Acute (2) ESRD (end stage renal disease) on dialysis Status: Acute (3) Pulmonary edema Status: Acute (4) Acute respiratory failure requiring reintubation Status: Acute (5) Arthritis Status: Acute (6) CHF (congestive heart failure) Status: Acute (7) Dehydration Status: Acute (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
--- NOTE | 2016-10-12 19:51 | CP.PCM.PN ---
Subjective - Date & Time of Evaluation Date of Evaluation: 10/12/16 Time of Evaluation: 19:51 - Subjective Subjective: pt is seen and examined, follow up consult is dictated #[id number] Objective - Vital Signs/Intake and Output Vital Signs (last 24 hours): Temp Pulse Resp BP Pulse Ox 98.5 F 106 H 20 114/75 97 10/12/16 15:00 10/12/16 15:00 10/12/16 15:00 10/12/16 15:00 10/12/16 15:00 Intake and Output: 10/12/16 10/13/16 18:59 06:59 Intake Total 200 Balance 200 - Medications Medications: Current Medications Benzocaine (Anbesol) 1 ml MM TID [facility] Last Admin: 10/12/16 17:35 Dose: 1 ml Epoetin Herve (Procrit) 10,000 unit SC TTS [facility] Last Admin: 10/11/16 10:41 Dose: 10,000 unit Latanoprost (Xalatan Opht) 0 ml OU HS [facility] Last Admin: 10/11/16 22:04 Dose: 2.5 ml Megestrol Acetate (Megace) 40 mg PO DAILY [facility] Last Admin: 10/12/16 09:00 Dose: 40 mg Paricalcitol (Zemplar) 1 mcg IV TTS [facility] Last Admin: 10/11/16 10:42 Dose: 1 mcg Saliva Substitute (First Magic Mouthwash) 5 ml PO QID PRN PRN Reason: sore mouth Last Admin: 10/01/16 20:34 Dose: 5 ml Vancomycin HCl (Vancocin (Oral Or Rectal Use)) 250 mg PO Q6 [facility] Last Admin: 10/12/16 17:36 Dose: 250 mg Vitamin B Complex/Vit C/Folic Acid (Nephro-Andrea) 1 tab PO 0800 [facility] Last Admin: 10/12/16 08:59 Dose: 1 tab - Labs Labs: 10/10/16 07:58 10/09/16 10:22 PT 11.9 SECONDS (9.7-12.2) 09/20/16 06:23 INR 1.1 09/20/16 06:23 APTT 28 SECONDS (21-34) 09/20/16 06:23
--- NOTE | 2016-10-12 20:26 | CP.PCM.PN ---
Subjective - Date & Time of Evaluation Date of Evaluation: 10/12/16 Time of Evaluation: 16:20 - Subjective Subjective: Patient seen and evaluated Denies chest pain and dyspnea Grand daughter at bedside Objective - Vital Signs/Intake and Output Vital Signs (last 24 hours): Temp Pulse Resp BP Pulse Ox 98.5 F 106 H 20 114/75 97 10/12/16 15:00 10/12/16 15:00 10/12/16 15:00 10/12/16 15:00 10/12/16 15:00 Intake and Output: 10/12/16 10/13/16 18:59 06:59 Intake Total 200 Balance 200 - Medications Medications: Current Medications Benzocaine (Anbesol) 1 ml MM TID [facility] Last Admin: 10/12/16 17:35 Dose: 1 ml Epoetin Herve (Procrit) 10,000 unit SC TTS [facility] Last Admin: 10/11/16 10:41 Dose: 10,000 unit Latanoprost (Xalatan Opht) 0 ml OU HS [facility] Last Admin: 10/11/16 22:04 Dose: 2.5 ml Megestrol Acetate (Megace) 40 mg PO DAILY [facility] Last Admin: 10/12/16 09:00 Dose: 40 mg Paricalcitol (Zemplar) 1 mcg IV TTS [facility] Last Admin: 10/11/16 10:42 Dose: 1 mcg Saliva Substitute (First Magic Mouthwash) 5 ml PO QID PRN PRN Reason: sore mouth Last Admin: 10/01/16 20:34 Dose: 5 ml Vancomycin HCl (Vancocin (Oral Or Rectal Use)) 250 mg PO Q6 [facility] Last Admin: 10/12/16 17:36 Dose: 250 mg Vitamin B Complex/Vit C/Folic Acid (Nephro-Andrea) 1 tab PO 0800 [facility] Last Admin: 10/12/16 08:59 Dose: 1 tab - Labs Labs: 10/10/16 07:58 10/09/16 10:22 PT 11.9 SECONDS (9.7-12.2) 09/20/16 06:23 INR 1.1 09/20/16 06:23 APTT 28 SECONDS (21-34) 09/20/16 06:23 - Head Exam Head Exam: ATRAUMATIC, NORMAL INSPECTION - Eye Exam Eye Exam: EOMI, PERRL - ENT Exam ENT Exam: Mucous Membranes Moist - Neck Exam Neck Exam: Full ROM, Normal Inspection - Respiratory Exam Respiratory Exam: Clear to Ausculation Bilateral, NORMAL BREATHING PATTERN - Cardiovascular Exam Cardiovascular Exam: REGULAR RHYTHM, +S1, +S2 - GI/Abdominal Exam GI & Abdominal Exam: Soft, Normal Bowel Sounds - Extremities Exam Extremities Exam: Full ROM - Neurological Exam Neurological Exam: Alert - Skin Skin Exam: Warm Assessment and Plan - Assessment and Plan (Free Text) Assessment: 1. Cardiomyopathy with Low EF Medical management due to poor general condition. Due to dementia not a candidate for cath or AICD/LifeVest 2. CKD on HD 3. Dementia 4. TTP resolving D/W Grand daughter. She is concerned about LifeVest. Her grand mother has dementia. Her Grand mother does not know how to manage LifeVest As per Grand daughter's request will d/c LifeVest
[2016-10-12] MEDS: Latanoprost 2.5 ml Opht Soln OU SCH (21:14)
--- NOTE | 2016-10-13 02:25 | CON ---
LOCATION: The patient is located in room 354, bed A. REQUESTED BY: Dr. Kavon Ureña. REASON FOR FOLLOWUP: End-stage renal disease, for continuation of hemodialysis. HISTORY OF PRESENT ILLNESS: The patient is an 80-year-old elderly female with a past medical history significant for longstanding hypertension; rheumatoid arthritis; CHF; cardiomyopathy; status post respiratory failure; status post intubation x2; thrombocytopenia, TTP with renal failure, on hemodialysis for the last 2-1/2 months. The patient is being treated for TTP with rituximab q. weekly. The patient is feeling better, not in acute distress. No complaints. No shortness of breath. No chest. No abdominal pain. No nausea, vomiting or diarrhea. Appetite is fair. PHYSICAL EXAMINATION: VITAL SIGNS: As follows; blood pressure 114/75, pulse 106, respirations 20, temperature 98.5 and saturation 97%. Height 5 feet 2 inches and weight is 120 pounds. GENERAL: The patient is an 80-year-old elderly female , moderately built, moderately nourished, not in acute distress. HEENT: Pupils normal reactive to light and accommodation. Conjunctivae pink. Sclerae anicteric. Tongue is moist. Trachea is midline. LUNGS: Symmetry on both sides, bilateral breath sounds present. Clear on auscultation. CARDIOVASCULAR SYSTEM: [place] at the fifth intercostal space, midclavicular line, S1 and S2 audible. No murmur, no gallop. ABDOMEN: Normal in appearance, soft, tympanic. No guarding, no rigidity, no hepatosplenomegaly. CENTRAL NERVOUS SYSTEM: The patient is alert, awake, oriented x2. Sensory and motor system is grossly within normal limits. EXTREMITIES: No cyanosis, no clubbing, no edema. CURRENT MEDICATIONS: Include as follows: Magic Mouthwash and Megace 40 mg p.o. daily, Nephro-Andrea 1 tablet daily, Procrit 10,000 units subQ 3 times a week. vancomycin 250 mg p.o. q. 6 hours, Xalatan eye drops, Zemplar 1 mcg 3 times a week. LABORATORY DATA: No new labs are available for today. As of 10/10/2016, WBC 7.2, hemoglobin 9.1, hematocrit 29, and platelets 109. ASSESSMENT AND PLAN: In summary, the patient is an 80-year-old elderly female with hypertension; rheumatoid arthritis; cardiomyopathy; congestive heart failure, status post respiratory failure, status post extubation x2 and intubation, TTP, thrombocytopenia, renal failure. 1. Renal failure, most likely end-stage renale disease, on hemodialysis for the last 2-1/2 months. Continue hemodialysis 3 times a week, Thursday, , and Thursday. 2. 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 3. Cardiomyopathy. 4. Hypertension, blood pressure is stable. Continue with current medication. Continue Procrit and continue Nephrocaps and Zemplar and follow with the senior java software engineer, Dr. Bergeron. Thank you for allowing me to participate in your patient's care and we will repeat blood work pre-dialysis. Horacio Graham MD
[2016-10-13] MEDS: Vancomycin 125 MG/5 ML SOLN (ORAL/RECTAL) PO SCH ×2 (05:06→12:13)
[2016-10-13] MEDS: Benzocaine 10% Oral Anesthetic (12 ml) MM SCH ×3 (10:02→17:33)
[2016-10-13] MEDS: Multivitamin Vitamin B Complex (Nephro-Vite) Tab PO SCH (10:02)
--- NOTE | 2016-10-13 18:19 | CP.PCM.PN ---
Subjective - Date & Time of Evaluation Date of Evaluation: 10/13/16 Time of Evaluation: 07:00 - Subjective Subjective: clinically same Objective - Vital Signs/Intake and Output Vital Signs (last 24 hours): Temp Pulse Resp BP Pulse Ox 99.1 F 98 H 20 111/65 98 10/13/16 15:00 10/13/16 15:00 10/13/16 15:00 10/13/16 15:00 10/13/16 15:00 Intake and Output: 10/13/16 10/13/16 06:59 18:59 Intake Total 250 600 Balance 250 600 - Medications Medications: Current Medications Benzocaine (Anbesol) 1 ml MM TID [facility] Last Admin: 10/13/16 17:33 Dose: 1 ml Epoetin Herve (Procrit) 10,000 unit SC TTS [facility] Last Admin: 10/11/16 10:41 Dose: 10,000 unit Latanoprost (Xalatan Opht) 0 ml OU HS [facility] Last Admin: 10/12/16 21:14 Dose: 2.5 ml Megestrol Acetate (Megace) 40 mg PO DAILY [facility] Last Admin: 10/13/16 10:03 Dose: 40 mg Paricalcitol (Zemplar) 1 mcg IV TTS [facility] Last Admin: 10/11/16 10:42 Dose: 1 mcg Saliva Substitute (First Magic Mouthwash) 5 ml PO QID PRN PRN Reason: sore mouth Last Admin: 10/01/16 20:34 Dose: 5 ml Vitamin B Complex/Vit C/Folic Acid (Nephro-Andrea) 1 tab PO 0800 [facility] Last Admin: 10/13/16 10:02 Dose: 1 tab - Labs Labs: 10/10/16 07:58 10/09/16 10:22 PT 11.9 SECONDS (9.7-12.2) 09/20/16 06:23 INR 1.1 09/20/16 06:23 APTT 28 SECONDS (21-34) 09/20/16 06:23 - Constitutional Appears: Well - Head Exam Head Exam: ATRAUMATIC, NORMAL INSPECTION, NORMOCEPHALIC - Eye Exam Eye Exam: EOMI, Normal appearance, PERRL Pupil Exam: NORMAL ACCOMODATION, PERRL - ENT Exam ENT Exam: Mucous Membranes Moist, Normal Exam - Neck Exam Neck Exam: Full ROM, Normal Inspection. absent: Lymphadenopathy - Respiratory Exam Respiratory Exam: Decreased Breath Sounds - Cardiovascular Exam Cardiovascular Exam: REGULAR RHYTHM, +S1, +S2 - GI/Abdominal Exam GI & Abdominal Exam: Soft, Diminished Bowel Sounds - Rectal Exam Rectal Exam: Deferred Assessment and Plan (1) Cardiac dysrhythmia Status: Acute (2) ESRD (end stage renal disease) on dialysis Status: Acute (3) Pulmonary edema Status: Acute (4) MARCO (acute kidney injury) Status: Acute (5) Acute respiratory failure requiring reintubation Status: Acute (6) Arthritis Status: Acute (7) CHF (congestive heart failure) Status: Acute (8) Dehydration Status: Acute (9) Dehydration Status: Acute (10) Diverticulosis Status: Acute (11) Elevated CEA Status: Acute (12) Hypertension Status: Acute (13) Inguinal lymphadenopathy Status: Acute (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
--- NOTE | 2016-10-13 19:44 | CP.PCM.PN ---
Subjective - Date & Time of Evaluation Date of Evaluation: 10/13/16 Time of Evaluation: 19:44 - Subjective Subjective: pt is seen and examined, follow up consult is dictated #[id number] hdin am, tts Objective - Vital Signs/Intake and Output Vital Signs (last 24 hours): Temp Pulse Resp BP Pulse Ox 99.1 F 98 H 20 111/65 98 10/13/16 15:00 10/13/16 15:00 10/13/16 15:00 10/13/16 15:00 10/13/16 15:00 Intake and Output: 10/13/16 10/14/16 18:59 06:59 Intake Total 600 Balance 600 - Medications Medications: Current Medications Benzocaine (Anbesol) 1 ml MM TID [facility] Last Admin: 10/13/16 17:33 Dose: 1 ml Epoetin Herve (Procrit) 10,000 unit SC TTS [facility] Last Admin: 10/11/16 10:41 Dose: 10,000 unit Latanoprost (Xalatan Opht) 0 ml OU HS [facility] Last Admin: 10/12/16 21:14 Dose: 2.5 ml Megestrol Acetate (Megace) 40 mg PO DAILY [facility] Last Admin: 10/13/16 10:03 Dose: 40 mg Paricalcitol (Zemplar) 1 mcg IV TTS [facility] Last Admin: 10/11/16 10:42 Dose: 1 mcg Saliva Substitute (First Magic Mouthwash) 5 ml PO QID PRN PRN Reason: sore mouth Last Admin: 10/01/16 20:34 Dose: 5 ml Vitamin B Complex/Vit C/Folic Acid (Nephro-Andrea) 1 tab PO 0800 [facility] Last Admin: 10/13/16 10:02 Dose: 1 tab - Labs Labs: 10/10/16 07:58 10/09/16 10:22 PT 11.9 SECONDS (9.7-12.2) 09/20/16 06:23 INR 1.1 09/20/16 06:23 APTT 28 SECONDS (21-34) 09/20/16 06:23
--- NOTE | 2016-10-13 21:02 | CP.PCM.PN ---
Subjective - Date & Time of Evaluation Date of Evaluation: 10/13/16 Time of Evaluation: 15:30 - Subjective Subjective: Patient seen and evaluated Denies chest pain and dyspnea Objective - Vital Signs/Intake and Output Vital Signs (last 24 hours): Temp Pulse Resp BP Pulse Ox 99.1 F 98 H 20 111/65 98 10/13/16 15:00 10/13/16 15:00 10/13/16 15:00 10/13/16 15:00 10/13/16 15:00 Intake and Output: 10/13/16 10/14/16 18:59 06:59 Intake Total 600 Balance 600 - Medications Medications: Current Medications Benzocaine (Anbesol) 1 ml MM TID [facility] Last Admin: 10/13/16 17:33 Dose: 1 ml Epoetin Herve (Procrit) 10,000 unit SC TTS [facility] Last Admin: 10/11/16 10:41 Dose: 10,000 unit Latanoprost (Xalatan Opht) 0 ml OU HS [facility] Last Admin: 10/12/16 21:14 Dose: 2.5 ml Megestrol Acetate (Megace) 40 mg PO DAILY [facility] Last Admin: 10/13/16 10:03 Dose: 40 mg Paricalcitol (Zemplar) 1 mcg IV TTS [facility] Last Admin: 10/11/16 10:42 Dose: 1 mcg Saliva Substitute (First Magic Mouthwash) 5 ml PO QID PRN PRN Reason: sore mouth Last Admin: 10/01/16 20:34 Dose: 5 ml Vitamin B Complex/Vit C/Folic Acid (Nephro-Andrea) 1 tab PO 0800 [facility] Last Admin: 10/13/16 10:02 Dose: 1 tab - Labs Labs: 10/10/16 07:58 10/09/16 10:22 PT 11.9 SECONDS (9.7-12.2) 09/20/16 06:23 INR 1.1 09/20/16 06:23 APTT 28 SECONDS (21-34) 09/20/16 06:23 - Head Exam Head Exam: ATRAUMATIC, NORMAL INSPECTION - Eye Exam Eye Exam: EOMI, PERRL - ENT Exam ENT Exam: Mucous Membranes Moist - Neck Exam Neck Exam: Full ROM, Normal Inspection - Respiratory Exam Respiratory Exam: Clear to Ausculation Bilateral, NORMAL BREATHING PATTERN - Cardiovascular Exam Cardiovascular Exam: REGULAR RHYTHM, +S1, +S2 - GI/Abdominal Exam GI & Abdominal Exam: Soft, Normal Bowel Sounds - Extremities Exam Extremities Exam: Full ROM, Normal Capillary Refill - Back Exam Back Exam: NORMAL INSPECTION - Neurological Exam Neurological Exam: Alert, Awake - Skin Skin Exam: Warm Assessment and Plan - Assessment and Plan (Free Text) Assessment: 1. Cardiomyopathy with Low EF Medical management due to poor general condition. Due to dementia not a candidate for cath or AICD/LifeVest 2. CKD on HD 3. Dementia 4. TTP resolving
[2016-10-13] MEDS: Latanoprost 2.5 ml Opht Soln OU SCH (21:10)
--- NOTE | 2016-10-14 01:26 | PN ---
DATE: 10/13/2016 RENAL CONSULTATION LOCATION: The patient is located in room 354, bed A. REQUESTED BY: Kavon Ureña MD REASON FOR FOLLOWUP: Hypertension, rheumatoid arthritis, cardiomyopathy, TTP, renal failure on hemodialysis for continuation of hemodialysis. SUBJECTIVE: Ms. Denise Garcia is an 80-year-old elderly female with a past medical history significant for longstanding hypertension; rheumatoid arthritis; cardiomyopathy; CHF, thrombocytopenia and TTP with renal failure, on hemodialysis 2 times a week for the last 2-1/2 months. Now, the patient is on hemodialysis 3 times a week, Thursday, , and Thursday. The patient is also receiving rituximab for relapsing TTP. The patient is not in acute distress and denies any complaints. No chest pain. No palpitations. No fever. No cough. The patient's grandson at bedside. PHYSICAL EXAMINATION: VITAL SIGNS: As follows, blood pressure 111/65, pulse 98, respirations 20, temperature is 99.1, saturation 98%. Height 5 feet 2 inches, and weight is 120 pounds. GENERAL: Ms. Denise Garcia is an 80-year-old elderly female, moderately built, moderately nourished, and not in acute distress. HEENT: Pupils are normal and reactive to light and accommodation. Conjunctivae pink. Sclerae anicteric. Tongue is moist. Trachea is midline. LUNGS: Symmetric on both side and bilateral breath sounds present. Clear on auscultation. CARDIOVASCULAR: [place] at the sixth intercostal space, midclavicular line, S1 and S2 audible. No murmur or gallop. ABDOMEN: Normal in appearance, soft, tympanic. No guarding, no rigidity. No hepatosplenomegaly. CENTRAL NERVOUS SYSTEM: The patient is alert, awake, and oriented x2. Sensory and motor system is grossly within normal limits. Mostly bedridden. EXTREMITIES: No cyanosis. No clubbing. No edema. CURRENT MEDICATIONS: Include as follows: Magic mouthwash; Megace 40 mg p.o. daily; Nephro-Andrea one tablet daily; Procrit 64019 units subcu 3 times a week, Thursday, , and Thursday; Xalatan eye drops; and Zemplar 1 mcg IV three times a week. LABORATORY DATA: No new labs are available for today. ASSESSMENT: In summary, Ms. Denise Garcia is an 80-year-old elderly female with a history of longstanding hypertension, rheumatoid arthritis, congestive heart failure, cardiomyopathy, thrombocytopenia, TTP and renal failure on hemodialysis. 1. 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 2. Hypertension. Blood pressure is stable, off antihypertensive medication at this time. 3. Cardiomyopathy. 4. Thrombotic thrombocytopenic purpura. PLAN: Continuing Zemplar, Procrit and Nephro-Andrea. Now continue rituximab as per manager transportation planning, Dr. Bergeron. We will follow with you. Thank you for allowing me to participate in your patient's care and we will schedule for hemodialysis in a.m. Horacio Graham MD
[2016-10-14] MEDS: Multivitamin Vitamin B Complex (Nephro-Vite) Tab PO SCH (08:45)
--- NOTE | 2016-10-14 09:10 | CON ---
DATE: FOLLOWUP RENAL CONSULTATION The patient is located in room 354, bed 8. REQUESTING PHYSICIAN: Dr. Kavon Ureña. REASON FOR FOLLOWUP: End-stage renal disease 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 SUBJECTIVE: Ms. Dinorah Garcia is an 80-year-old elderly female with a past medical history significant for longstanding hypertension, rheumatoid arthritis, CHF, cardiomyopathy, thrombocytopenia, TTP status post plasmapheresis x3 sessions and we are started on rituximab q. weekly for relapsing TTP. The patient is also dependent on hemodialysis for the last two and half months. The patient is not in acute distress. No complaints. No chest pain. No palpitation. No shortness of breath. PHYSICAL EXAMINATION: VITAL SIGNS: As follows; blood pressure 123/82, pulse 93, respirations 20, temperature 98.4, saturation 98%. Height 5 feet 2 inches and weight is 124. GENERAL: Ms. Dinorah Garcia is an 80-year-old elderly female, moderately built, moderately nourished, not in acute distress. HEENT: Pupils are normal and reactive to light and accommodation. Conjunctivae pink. Sclerae anicteric. Legally blind. Tongue is moist. Trachea is midline. LUNGS: Symmetry on both sides. Bilateral breath sounds present and clear on auscultation. CARDIOVASCULAR: [place] at the fifth intercostal space, midclavicular line. S1 and S2 audible. No murmur or gallop. ABDOMEN: Normal in appearance, soft and tympanic. No guarding. No rigidity. No hepatosplenomegaly. CERTIFIED RESIDENTIAL MEDICATION AIDE: The patient is alert, awake and following simple commands. Sensory and motor systems grossly within normal limits. EXTREMITIES: No cyanosis. No clubbing. No edema. CURRENT MEDICATIONS: Include as follows; Flagyl 500 mg IV q. 8 hours, and heparin 1700 units in each port of the Perm-A-Cath 3 times a week, and Megace 40 mg p.o. daily, Nephro-Andrea 1 tablet daily, Epogen 10,000 units subcutaneous 3 times a week and vancomycin 250 mg p.o. q. 6 hours, Xalatan eye drops and Zemplar 1 mcg IV 3 times a week Thursday, and Thursday. LABORATORY DATA: Include as follows as of 10/10/2016; WBC 7.3, hemoglobin 9.1, hematocrit is 29, and platelets 109. As of 10/09/2016; potassium 4.1, BUN 40, creatinine 5.3. As of 10/04/2016, blood cultures x2 negative. ASSESSMENT AND PLAN: In summary, Ms. Dinorah Garcia is an 80-year-old elderly female with history of hypertension, rheumatoid arthritis, congestive heart failure, cardiomyopathy, respiratory failure status post intubation x2, thrombocytopenia, thrombotic thrombocytopenic purpura, renal failure on hemodialysis for the last two and half months. 1. 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 2. Status post hypertension. The patient was given IV fluids and responded well. Now blood pressure is under control. Discontinue IV fluids. 3. Cardiomyopathy. 4. Thrombocytopenia on rituximab q. weekly and follow with magician helper Dr. Montanez. We will schedule for hemodialysis on Thursday. Thank you for allowing me to participate in your patient's care. Horacio Graham MD
[2016-10-14] MEDS: Benzocaine 10% Oral Anesthetic (12 ml) MM SCH ×3 (09:35→17:31)
--- NOTE | 2016-10-14 12:12 | CP.PCM.PN ---
Subjective - Date & Time of Evaluation Date of Evaluation: 10/14/16 Time of Evaluation: 12:11 - Subjective Subjective: pt is seen and examined during hd, poorly functioning left pc, may need to change, uf 1.8 lit follow up consul is dictated # [id number] Objective - Vital Signs/Intake and Output Vital Signs (last 24 hours): Temp Pulse Resp BP Pulse Ox 99 F 99 H 20 114/67 94 L 10/14/16 10:00 10/14/16 10:00 10/14/16 10:00 10/14/16 10:45 10/14/16 10:00 Intake and Output: 10/14/16 10/14/16 06:59 18:59 Intake Total 300 Output Total 2 Balance 298 - Medications Medications: Current Medications Benzocaine (Anbesol) 1 ml MM TID [facility] Last Admin: 10/14/16 09:35 Dose: 1 ml Epoetin Herve (Procrit) 10,000 unit IV TTS [facility] Heparin Sodium (Porcine) (Heparin) 3,400 units IVP TTS [facility] Latanoprost (Xalatan Opht) 0 ml OU HS [facility] Last Admin: 10/13/16 21:10 Dose: 2.5 ml Megestrol Acetate (Megace) 40 mg PO DAILY [facility] Last Admin: 10/14/16 09:16 Dose: 40 mg Paricalcitol (Zemplar) 1 mcg IV TTS [facility] Last Admin: 10/11/16 10:42 Dose: 1 mcg Saliva Substitute (First Magic Mouthwash) 5 ml PO QID PRN PRN Reason: sore mouth Last Admin: 10/01/16 20:34 Dose: 5 ml Vitamin B Complex/Vit C/Folic Acid (Nephro-Andrea) 1 tab PO 0800 [facility] Last Admin: 10/14/16 08:45 Dose: 1 tab - Labs Labs: 10/10/16 07:58 10/09/16 10:22 PT 11.9 SECONDS (9.7-12.2) 09/20/16 06:23 INR 1.1 09/20/16 06:23 APTT 28 SECONDS (21-34) 09/20/16 06:23
[2016-10-14] MEDS: Epoetin Alfa 10,000 unit/ml Dialysis IV SCH (12:18)
[2016-10-14] MEDS: Paricalcitol 2 mcg/ml Inj IV SCH (12:18)
--- NOTE | 2016-10-14 14:20 | CP.PCM.PN ---
Subjective - Date & Time of Evaluation Date of Evaluation: 10/14/16 Time of Evaluation: 07:00 - Subjective Subjective: clinically same Objective - Vital Signs/Intake and Output Vital Signs (last 24 hours): Temp Pulse Resp BP Pulse Ox 99 F 99 H 20 107/67 94 L 10/14/16 10:00 10/14/16 10:00 10/14/16 10:00 10/14/16 13:15 10/14/16 10:00 Intake and Output: 10/14/16 10/14/16 06:59 18:59 Intake Total 300 Output Total 2 Balance 298 - Medications Medications: Current Medications Benzocaine (Anbesol) 1 ml MM TID [facility] Last Admin: 10/14/16 09:35 Dose: 1 ml Epoetin Herve (Procrit) 10,000 unit IV TTS [facility] Last Admin: 10/14/16 12:18 Dose: 10,000 unit Heparin Sodium (Porcine) (Heparin) 3,400 units IVP TTS [facility] Last Admin: 10/14/16 12:19 Dose: 3,400 units Latanoprost (Xalatan Opht) 0 ml OU HS [facility] Last Admin: 10/13/16 21:10 Dose: 2.5 ml Megestrol Acetate (Megace) 40 mg PO DAILY [facility] Last Admin: 10/14/16 09:16 Dose: 40 mg Paricalcitol (Zemplar) 1 mcg IV TTS [facility] Last Admin: 10/14/16 12:18 Dose: 1 mcg Saliva Substitute (First Magic Mouthwash) 5 ml PO QID PRN PRN Reason: sore mouth Last Admin: 10/01/16 20:34 Dose: 5 ml Vitamin B Complex/Vit C/Folic Acid (Nephro-Andrea) 1 tab PO 0800 [facility] Last Admin: 10/14/16 08:45 Dose: 1 tab - Labs Labs: 10/10/16 07:58 10/09/16 10:22 PT 11.9 SECONDS (9.7-12.2) 09/20/16 06:23 INR 1.1 09/20/16 06:23 APTT 28 SECONDS (21-34) 09/20/16 06:23 - Constitutional Appears: Well - Head Exam Head Exam: ATRAUMATIC, NORMAL INSPECTION, NORMOCEPHALIC - Eye Exam Eye Exam: EOMI, Normal appearance, PERRL Pupil Exam: NORMAL ACCOMODATION, PERRL - ENT Exam ENT Exam: Mucous Membranes Moist, Normal Exam - Neck Exam Neck Exam: Full ROM, Normal Inspection. absent: Lymphadenopathy - Respiratory Exam Respiratory Exam: Decreased Breath Sounds - Cardiovascular Exam Cardiovascular Exam: REGULAR RHYTHM, +S1, +S2 - GI/Abdominal Exam GI & Abdominal Exam: Soft, Diminished Bowel Sounds - Rectal Exam Rectal Exam: Deferred Assessment and Plan (1) Cardiac dysrhythmia Status: Acute (2) ESRD (end stage renal disease) on dialysis Status: Acute (3) Pulmonary edema Status: Acute (4) MARCO (acute kidney injury) Status: Acute (5) Acute respiratory failure requiring reintubation Status: Acute (6) Arthritis Status: Acute (7) CHF (congestive heart failure) Status: Acute (8) Dehydration Status: Acute (9) Dehydration Status: Acute (10) Diverticulosis Status: Acute (11) Elevated CEA Status: Acute (12) Hypertension Status: Acute (13) Inguinal lymphadenopathy Status: Acute (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
[2016-10-14] MEDS: Epoetin Alfa 10,000 unit/ml Dialysis SC SCH (14:59)
[2016-10-14 15:40] LABS: BASO % 0.7 % (0.0-2.0); EOS # 0.4 K/uL (0.0-0.7); EOS % 5.5 % (0.0-4.0); HEMATOCRIT 27.9 % (34.0-47.0); LYMPH # 0.9 K/uL (1.0-4.3); LYMPH % 13.4 % (20.0-40.0); MEAN CELL VOLUME 87.2 fL (81.0-99.0); MEAN CORPUSCULAR HEMOGLOBIN 27.6 pg (27.0-31.0); MEAN CORPUSCULAR HGB CONC 31.6 g/dL (33.0-37.0); MEAN PLATELET VOLUME 9.7 fL (7.2-11.7); RED CELL DISTRIBUTION WIDTH 20.6 % (11.5-14.5); WHITE BLOOD COUNT 6.4 K/uL (4.8-10.8)
[2016-10-14 16:10] LABS: CALCIUM 8.5 mg/dl (8.6-10.4); PHOSPHOROUS 1.8 mg/dL (2.5-4.5); POTASSIUM 3.5 mmol/L (3.6-5.2)
--- NOTE | 2016-10-14 21:20 | CP.PCM.PN ---
Subjective - Date & Time of Evaluation Date of Evaluation: 10/14/16 Time of Evaluation: 18:00 - Subjective Subjective: Appears comfortable Rituximab not given due to lack of IV access For possible Rituximab tomorrow if IV access obtained; if possible hold dialysis until Thursday (Rituximab removed by dialysis) Objective - Vital Signs/Intake and Output Vital Signs (last 24 hours): Temp Pulse Resp BP Pulse Ox 97.4 F L 100 H 20 124/74 98 10/14/16 15:00 10/14/16 15:00 10/14/16 15:00 10/14/16 15:00 10/14/16 15:00 Intake and Output: 10/14/16 10/15/16 18:59 06:59 Intake Total 250 Balance 250 - Medications Medications: Current Medications Benzocaine (Anbesol) 1 ml MM TID [facility] Last Admin: 10/14/16 17:31 Dose: 1 ml Epoetin Herve (Procrit) 10,000 unit IV TTS [facility] Last Admin: 10/14/16 12:18 Dose: 10,000 unit Heparin Sodium (Porcine) (Heparin) 3,400 units IVP TTS [facility] Last Admin: 10/14/16 12:19 Dose: 3,400 units Latanoprost (Xalatan Opht) 0 ml OU HS [facility] Last Admin: 10/13/16 21:10 Dose: 2.5 ml Megestrol Acetate (Megace) 40 mg PO DAILY [facility] Last Admin: 10/14/16 09:16 Dose: 40 mg Paricalcitol (Zemplar) 1 mcg IV TTS [facility] Last Admin: 10/14/16 12:18 Dose: 1 mcg Saliva Substitute (First Magic Mouthwash) 5 ml PO QID PRN PRN Reason: sore mouth Last Admin: 10/01/16 20:34 Dose: 5 ml Vitamin B Complex/Vit C/Folic Acid (Nephro-Andrea) 1 tab PO 0800 [facility] Last Admin: 10/14/16 08:45 Dose: 1 tab - Labs Labs: 10/14/16 15:33 10/14/16 15:33 PT 11.9 SECONDS (9.7-12.2) 09/20/16 06:23 INR 1.1 09/20/16 06:23 APTT 28 SECONDS (21-34) 09/20/16 06:23 - Head Exam Head Exam: ATRAUMATIC - Eye Exam Eye Exam: Normal appearance - ENT Exam ENT Exam: Mucous Membranes Dry - Respiratory Exam Respiratory Exam: NORMAL BREATHING PATTERN - Cardiovascular Exam Cardiovascular Exam: +S1, +S2 - GI/Abdominal Exam GI & Abdominal Exam: Normal Bowel Sounds Assessment and Plan (1) TTP (thrombotic thrombocytopenic purpura) Status: Acute
[2016-10-14] MEDS: Latanoprost 2.5 ml Opht Soln OU SCH (22:39)
--- NOTE | 2016-10-15 00:34 | CP.PCM.PN ---
Subjective - Date & Time of Evaluation Date of Evaluation: 10/14/16 Time of Evaluation: 12:05 - Subjective Subjective: Patient comfortable No complaints Objective - Vital Signs/Intake and Output Vital Signs (last 24 hours): Temp Pulse Resp BP Pulse Ox 97.4 F L 100 H 20 124/74 98 10/14/16 15:00 10/14/16 15:00 10/14/16 15:00 10/14/16 15:00 10/14/16 15:00 Intake and Output: 10/14/16 10/15/16 18:59 06:59 Intake Total 250 350 Balance 250 350 - Medications Medications: Current Medications Benzocaine (Anbesol) 1 ml MM TID [facility] Last Admin: 10/14/16 17:31 Dose: 1 ml Epoetin Herve (Procrit) 10,000 unit IV TTS [facility] Last Admin: 10/14/16 12:18 Dose: 10,000 unit Heparin Sodium (Porcine) (Heparin) 3,400 units IVP TTS [facility] Last Admin: 10/14/16 12:19 Dose: 3,400 units Potassium Chloride (Potassium Chloride 20 Meq/100 Ml) 20 meq in 100 mls @ 50 mls/hr IVPB ONCE ONE Stop: 10/15/16 01:38 Last Admin: 10/15/16 00:12 Dose: 50 mls/hr Latanoprost (Xalatan Opht) 0 ml OU HS [facility] Last Admin: 10/14/16 22:39 Dose: 2.5 ml Megestrol Acetate (Megace) 40 mg PO DAILY [facility] Last Admin: 10/14/16 09:16 Dose: 40 mg Paricalcitol (Zemplar) 1 mcg IV TTS [facility] Last Admin: 10/14/16 12:18 Dose: 1 mcg Saliva Substitute (First Magic Mouthwash) 5 ml PO QID PRN PRN Reason: sore mouth Last Admin: 10/01/16 20:34 Dose: 5 ml Vitamin B Complex/Vit C/Folic Acid (Nephro-Andrea) 1 tab PO 0800 [facility] Last Admin: 10/14/16 08:45 Dose: 1 tab - Labs Labs: 10/14/16 15:33 10/14/16 15:33 PT 11.9 SECONDS (9.7-12.2) 09/20/16 06:23 INR 1.1 09/20/16 06:23 APTT 28 SECONDS (21-34) 09/20/16 06:23 - Head Exam Head Exam: ATRAUMATIC - Eye Exam Eye Exam: EOMI, PERRL - ENT Exam ENT Exam: Mucous Membranes Moist - Neck Exam Neck Exam: Full ROM, Normal Inspection - Respiratory Exam Respiratory Exam: Clear to Ausculation Bilateral, NORMAL BREATHING PATTERN - Cardiovascular Exam Cardiovascular Exam: REGULAR RHYTHM, +S1, +S2 - GI/Abdominal Exam GI & Abdominal Exam: Soft, Normal Bowel Sounds - Extremities Exam Extremities Exam: Full ROM - Neurological Exam Neurological Exam: Alert - Skin Skin Exam: Warm Assessment and Plan - Assessment and Plan (Free Text) Assessment: 1. Cardiomyopathy with Low EF Medical management due to poor general condition. Due to dementia not a candidate for cath or AICD/LifeVest 2. CKD on HD 3. Dementia 4. TTP resolving
--- NOTE | 2016-10-15 08:25 | CON ---
FOLLOWUP RENAL CONSULTATION LOCATION: The patient is located in 354, bed A. REQUESTED BY: Dr. Kavon Ureña. REASON FOR FOLLOWUP: End-stage renal disease for continuation of hemodialysis. HISTORY OF PRESENT ILLNESS: The patient is an 80-year-old elderly female with a past medical history significant for longstanding hypertension; rheumatoid arthritis, CHF, cardiomyopathy, thrombocytopenia, TTP, renal failure on hemodialysis 3 times a week Thursday, , and Thursday. The patient was seen and examined during dialysis. The patient has a poorly functioning PermCath today and alteplase 2 mg in each port was placed and after 40 minutes able to dialyze the patient with a blood flow of 300 mL/minute and UF goal is about 1.5 L. The patient is not in acute distress. No complaints. No chest pain, no palpitations, no fever, no cough. PHYSICAL EXAMINATION GENERAL: The patient is an 80-year-old elderly female, moderately built, moderately nourished, largely distressed, legally blind. VITAL SIGNS: Blood pressure 114/67, pulse 99, respirations 20, temperature 99, height 5 feet 2 inches, weight is 120 pounds. HEENT: Pupils are normal and reactive to light and accommodation. Conjunctivae pink. Sclerae anicteric. Tongue is moist. Trachea is midline. LUNGS: Symmetric on both sides. Bilateral breath sounds present. Clear on auscultation. CARDIOVASCULAR: Cushing at the sixth intercostal space, midclavicular line, S1 and S2 audible. No murmur, no gallop. ABDOMEN: Normal in appearance, soft, tympanic. No guarding, no rigidity. No hepatosplenomegaly. CENTRAL NERVOUS SYSTEM: The patient is awake, oriented x2. Sensory and motor system is grossly within normal limits. EXTREMITIES: No cyanosis, no clubbing, no edema. CURRENT MEDICATIONS: Include as follows: Magic mouthwash 5 mL p.o. q.i.d., heparin 3400 units, 1700 in each port post-dialysis in PermCath and Megace 40 mg p.o. daily, Nephro-Andrea 1 tablet p.o. daily, and Procrit 68800 units 3 times a week, Thursday, , and Thursday; Xalatan eye drops; and Zemplar 1 mcg IV three times a week, TTS and alteplase 2 mg in each port x1 this morning. LABORATORY DATA: Post-dialysis labs as of 10/14/2016, WBC 6.4, hemoglobin 8.8, hematocrit is 27.9, platelets 111. Sodium 138, potassium 3.5, chloride 98, CO2 of 28, BUN 13, creatinine 2.1, and glucose 96, calcium 8.5 and phosphorus 1.8. These labs are post-dialysis. IMPRESSION: In summary, the patient is an 80-year-old elderly female with a history of hypertension, rheumatoid arthritis, congestive heat failure, cardiomyopathy, thrombocytopenia, thrombotic thrombocytopenic purpura and anemia and renal failure. 1. Renal failure most likely secondary to end-stage renal disease secondary to thrombotic thrombocytopenic purpura and cannot rule out thrombotic microangiopathy. 2. Anemia secondary to renal failure and thrombotic thrombocytopenic purpura. 3. 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 4. Cardiomyopathy. PLAN: Continue hemodialysis 3 times a week. Continue Procrit. Continue Nephrocaps and Zemplar. We will follow with you. Thank you for allowing me to participate in your patient's care and follow with hematology for next dose of rituximab. Horacio Graham MD [email or web address]
[2016-10-15] MEDS: Multivitamin Vitamin B Complex (Nephro-Vite) Tab PO SCH (08:52)
[2016-10-15] MEDS: Benzocaine 10% Oral Anesthetic (12 ml) MM SCH ×2 (09:01→13:55)
--- NOTE | 2016-10-15 10:51 | CP.PCM.PN ---
Subjective - Date & Time of Evaluation Date of Evaluation: 10/15/16 Time of Evaluation: 10:50 - Subjective Subjective: pt is seen and examined, follow up consult is dictated #[id number] Objective - Vital Signs/Intake and Output Vital Signs (last 24 hours): Temp Pulse Resp BP Pulse Ox 99.2 F 97 H 20 125/86 96 10/15/16 08:50 10/15/16 08:50 10/15/16 08:50 10/15/16 08:50 10/15/16 08:50 Intake and Output: 10/15/16 10/15/16 06:59 18:59 Intake Total 570 Balance 570 - Medications Medications: Current Medications Benzocaine (Anbesol) 1 ml MM TID [facility] Last Admin: 10/15/16 09:01 Dose: 1 ml Epoetin Herve (Procrit) 10,000 unit IV TTS [facility] Last Admin: 10/14/16 12:18 Dose: 10,000 unit Heparin Sodium (Porcine) (Heparin) 3,400 units IVP TTS [facility] Last Admin: 10/14/16 12:19 Dose: 3,400 units Latanoprost (Xalatan Opht) 0 ml OU HS [facility] Last Admin: 10/14/16 22:39 Dose: 2.5 ml Megestrol Acetate (Megace) 40 mg PO DAILY [facility] Last Admin: 10/15/16 09:01 Dose: 40 mg Paricalcitol (Zemplar) 1 mcg IV TTS [facility] Last Admin: 10/14/16 12:18 Dose: 1 mcg Saliva Substitute (First Magic Mouthwash) 5 ml PO QID PRN PRN Reason: sore mouth Last Admin: 10/01/16 20:34 Dose: 5 ml Vitamin B Complex/Vit C/Folic Acid (Nephro-Andrea) 1 tab PO 0800 [facility] Last Admin: 10/15/16 08:52 Dose: 1 tab - Labs Labs: 10/14/16 15:33 10/14/16 15:33 PT 11.9 SECONDS (9.7-12.2) 09/20/16 06:23 INR 1.1 09/20/16 06:23 APTT 28 SECONDS (21-34) 09/20/16 06:23
--- NOTE | 2016-10-15 13:02 | CP.PCM.PN ---
Subjective - Date & Time of Evaluation Date of Evaluation: 10/15/16 Time of Evaluation: 12:00 - Subjective Subjective: Appears comfortable For PICC line placement Objective - Vital Signs/Intake and Output Vital Signs (last 24 hours): Temp Pulse Resp BP Pulse Ox 99.2 F 97 H 20 125/86 96 10/15/16 08:50 10/15/16 08:50 10/15/16 08:50 10/15/16 08:50 10/15/16 08:50 Intake and Output: 10/15/16 10/15/16 06:59 18:59 Intake Total 570 Balance 570 - Medications Medications: Current Medications Benzocaine (Anbesol) 1 ml MM TID [facility] Last Admin: 10/15/16 09:01 Dose: 1 ml Epoetin Herve (Procrit) 10,000 unit IV TTS [facility] Last Admin: 10/14/16 12:18 Dose: 10,000 unit Heparin Sodium (Porcine) (Heparin) 3,400 units IVP TTS [facility] Last Admin: 10/14/16 12:19 Dose: 3,400 units Latanoprost (Xalatan Opht) 0 ml OU HS [facility] Last Admin: 10/14/16 22:39 Dose: 2.5 ml Megestrol Acetate (Megace) 40 mg PO DAILY [facility] Last Admin: 10/15/16 09:01 Dose: 40 mg Paricalcitol (Zemplar) 1 mcg IV TTS [facility] Last Admin: 10/14/16 12:18 Dose: 1 mcg Saliva Substitute (First Magic Mouthwash) 5 ml PO QID PRN PRN Reason: sore mouth Last Admin: 10/01/16 20:34 Dose: 5 ml Vitamin B Complex/Vit C/Folic Acid (Nephro-Andrea) 1 tab PO 0800 [facility] Last Admin: 10/15/16 08:52 Dose: 1 tab - Labs Labs: 10/14/16 15:33 10/14/16 15:33 PT 11.9 SECONDS (9.7-12.2) 09/20/16 06:23 INR 1.1 09/20/16 06:23 APTT 28 SECONDS (21-34) 09/20/16 06:23 - Head Exam Head Exam: ATRAUMATIC - Eye Exam Eye Exam: Normal appearance - ENT Exam ENT Exam: Mucous Membranes Dry - Respiratory Exam Respiratory Exam: NORMAL BREATHING PATTERN - Cardiovascular Exam Cardiovascular Exam: +S1, +S2 - GI/Abdominal Exam GI & Abdominal Exam: Normal Bowel Sounds Assessment and Plan (1) TTP (thrombotic thrombocytopenic purpura) Assessment & Plan: refractory to plasma exchange For rituximab treatment once IV access obtained if possible, delay dialysis until Thursday to allow rituximab effect (is dialyzed) Status: Acute
[2016-10-15] MEDS: Latanoprost 2.5 ml Opht Soln OU SCH (21:20)
--- NOTE | 2016-10-15 21:59 | CP.PCM.PN ---
Subjective - Date & Time of Evaluation Date of Evaluation: 10/15/16 Time of Evaluation: 07:00 - Subjective Subjective: clinically same Objective - Vital Signs/Intake and Output Vital Signs (last 24 hours): Temp Pulse Resp BP Pulse Ox 98.4 F 91 H 20 129/67 96 10/15/16 15:00 10/15/16 15:00 10/15/16 15:00 10/15/16 15:00 10/15/16 15:00 Intake and Output: 10/15/16 10/16/16 18:59 06:59 Intake Total 300 Balance 300 - Medications Medications: Current Medications Epoetin Herve (Procrit) 10,000 unit IV TTS [facility] Last Admin: 10/14/16 12:18 Dose: 10,000 unit Heparin Sodium (Porcine) (Heparin) 3,400 units IVP TTS [facility] Last Admin: 10/14/16 12:19 Dose: 3,400 units Potassium Chloride (Potassium Chloride 20 Meq/100 Ml) 20 meq in 100 mls @ 50 mls/hr IVPB ONCE ONE Stop: 10/15/16 23:57 Latanoprost (Xalatan Opht) 0 ml OU HS [facility] Last Admin: 10/15/16 21:20 Dose: 2.5 ml Megestrol Acetate (Megace) 40 mg PO DAILY [facility] Last Admin: 10/15/16 09:01 Dose: 40 mg Paricalcitol (Zemplar) 1 mcg IV TTS [facility] Last Admin: 10/14/16 12:18 Dose: 1 mcg Vitamin B Complex/Vit C/Folic Acid (Nephro-Andrea) 1 tab PO 0800 [facility] Last Admin: 10/15/16 08:52 Dose: 1 tab - Labs Labs: 10/14/16 15:33 10/14/16 15:33 PT 11.9 SECONDS (9.7-12.2) 09/20/16 06:23 INR 1.1 09/20/16 06:23 APTT 28 SECONDS (21-34) 09/20/16 06:23 - Constitutional Appears: Well - Head Exam Head Exam: ATRAUMATIC, NORMAL INSPECTION, NORMOCEPHALIC - Eye Exam Eye Exam: EOMI, Normal appearance, PERRL Pupil Exam: NORMAL ACCOMODATION, PERRL - ENT Exam ENT Exam: Mucous Membranes Moist, Normal Exam - Neck Exam Neck Exam: Full ROM, Normal Inspection. absent: Lymphadenopathy - Respiratory Exam Respiratory Exam: Decreased Breath Sounds - Cardiovascular Exam Cardiovascular Exam: REGULAR RHYTHM, +S2. absent: +S1 - GI/Abdominal Exam GI & Abdominal Exam: Soft, Diminished Bowel Sounds - Rectal Exam Rectal Exam: Deferred Assessment and Plan (1) Cardiac dysrhythmia Status: Acute (2) ESRD (end stage renal disease) on dialysis Status: Acute (3) Pulmonary edema Status: Acute (4) MARCO (acute kidney injury) Status: Acute (5) Acute respiratory failure requiring reintubation Status: Acute (6) Arthritis Status: Acute (7) CHF (congestive heart failure) Status: Acute (8) Dehydration Status: Acute (9) Dehydration Status: Acute (10) Diverticulosis Status: Acute (11) Elevated CEA Status: Acute (12) Hypertension Status: Acute (13) Inguinal lymphadenopathy Status: Acute (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
[2016-10-16] MEDS: Multivitamin Vitamin B Complex (Nephro-Vite) Tab PO SCH (08:11)
--- NOTE | 2016-10-16 08:34 | CP.PCM.PN ---
Subjective - Date & Time of Evaluation Date of Evaluation: 10/16/16 Time of Evaluation: 07:00 - Subjective Subjective: clinically same Objective - Vital Signs/Intake and Output Vital Signs (last 24 hours): Temp Pulse Resp BP Pulse Ox 99 F 92 H 20 137/72 95 10/16/16 00:00 10/16/16 00:00 10/16/16 00:00 10/16/16 00:00 10/16/16 00:00 Intake and Output: 10/16/16 10/16/16 06:59 18:59 Intake Total 410 Balance 410 - Medications Medications: Current Medications Epoetin Herve (Procrit) 10,000 unit IV TTS [facility] Last Admin: 10/14/16 12:18 Dose: 10,000 unit Heparin Sodium (Porcine) (Heparin) 3,400 units IVP TTS [facility] Last Admin: 10/14/16 12:19 Dose: 3,400 units Megestrol Acetate (Megace) 40 mg PO DAILY [facility] Last Admin: 10/16/16 08:11 Dose: 40 mg Paricalcitol (Zemplar) 1 mcg IV TTS [facility] Last Admin: 10/14/16 12:18 Dose: 1 mcg Vitamin B Complex/Vit C/Folic Acid (Nephro-Andrea) 1 tab PO 0800 [facility] Last Admin: 10/16/16 08:11 Dose: 1 tab - Labs Labs: 10/14/16 15:33 10/14/16 15:33 PT 11.9 SECONDS (9.7-12.2) 09/20/16 06:23 INR 1.1 09/20/16 06:23 APTT 28 SECONDS (21-34) 09/20/16 06:23 - Constitutional Appears: Well - Head Exam Head Exam: ATRAUMATIC, NORMAL INSPECTION, NORMOCEPHALIC - Eye Exam Eye Exam: EOMI, Normal appearance, PERRL Pupil Exam: NORMAL ACCOMODATION, PERRL - ENT Exam ENT Exam: Mucous Membranes Moist, Normal Exam - Neck Exam Neck Exam: Full ROM, Normal Inspection. absent: Lymphadenopathy - Respiratory Exam Respiratory Exam: Decreased Breath Sounds - Cardiovascular Exam Cardiovascular Exam: REGULAR RHYTHM - GI/Abdominal Exam GI & Abdominal Exam: Soft, Diminished Bowel Sounds - Rectal Exam Rectal Exam: Deferred Assessment and Plan (1) Cardiac dysrhythmia Status: Acute (2) ESRD (end stage renal disease) on dialysis Status: Acute (3) Pulmonary edema Status: Acute (4) MARCO (acute kidney injury) Status: Acute (5) Acute respiratory failure requiring reintubation Status: Acute (6) Arthritis Status: Acute (7) CHF (congestive heart failure) Status: Acute (8) Dehydration Status: Acute (9) Dehydration Status: Acute (10) Diverticulosis Status: Acute (11) Elevated CEA Status: Acute (12) Hypertension Status: Acute (13) Inguinal lymphadenopathy Status: Acute (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 - Assessment and Plan (Free Text) Plan: Patient is completely dependent on activity of daily living patient needs complete health at home Patient needs in hospital bed as patient scanned move from the bed without the help Patient is also confused Patient also has a weakness on both arms and the leg Patient also needs an air mattress or some form of a mattress which will prevent the decubiti Patient and the care discussed with the daughter and other family member Patient is to be discharged Patient needs a longer course of fold [facility] at home Patient needs PT at home Patient is a 40 at home Patient needs to be seen by the doctor chalo family does not want the patient's to go to rehab
--- NOTE | 2016-10-16 09:28 | CP.PCM.PN ---
Subjective - Date & Time of Evaluation Date of Evaluation: 10/16/16 Time of Evaluation: 09:27 - Subjective Subjective: pt is seen and examined during hd, follow up consult is dictated for iv Rtrumaxamab after hd today Objective - Vital Signs/Intake and Output Vital Signs (last 24 hours): Temp Pulse Resp BP Pulse Ox 99 F 92 H 20 137/72 95 10/16/16 00:00 10/16/16 00:00 10/16/16 00:00 10/16/16 00:00 10/16/16 00:00 Intake and Output: 10/16/16 10/16/16 06:59 18:59 Intake Total 410 Balance 410 - Medications Medications: Current Medications Epoetin Herve (Procrit) 10,000 unit IV TTS [facility] Last Admin: 10/14/16 12:18 Dose: 10,000 unit Heparin Sodium (Porcine) (Heparin) 3,400 units IVP TTS [facility] Last Admin: 10/14/16 12:19 Dose: 3,400 units Megestrol Acetate (Megace) 40 mg PO DAILY [facility] Last Admin: 10/16/16 08:11 Dose: 40 mg Paricalcitol (Zemplar) 1 mcg IV TTS [facility] Last Admin: 10/14/16 12:18 Dose: 1 mcg Vitamin B Complex/Vit C/Folic Acid (Nephro-Andrea) 1 tab PO 0800 [facility] Last Admin: 10/16/16 08:11 Dose: 1 tab - Labs Labs: 10/14/16 15:33 10/14/16 15:33 PT 11.9 SECONDS (9.7-12.2) 09/20/16 06:23 INR 1.1 09/20/16 06:23 APTT 28 SECONDS (21-34) 09/20/16 06:23
--- NOTE | 2016-10-16 09:48 | CON ---
DATE: FOLLOWUP RENAL CONSULTATION LOCATION: The patient is located in 354, bed A. REQUESTED BY: Dr. Kavon Ureña. REASON FOR FOLLOWUP: End-stage renal disease for continuation of hemodialysis. HISTORY OF PRESENT ILLNESS: Ms. Denise Garcia is an 80 years old elderly female with a history of longstanding hypertension, rheumatoid arthritis, cardiomyopathy, CHF, respiratory failure status post intubation x2, renal failure, TTP on rituximab. The patient is also on hemodialysis three times a week Thursday, , and Thursday. The patient is not in any acute distress. The patient pulled out her PICC line and is scheduled for PICC line placement today and also for rituximab after PICC line placement. The patient is not in any acute distress. Denies any headache, dizziness, lightheadedness, chest pain, palpitations. No fever, no cough. PHYSICAL EXAMINATION GENERAL: Ms. Denise Garcia is an 80 years old elderly female, moderately built, moderately nourished, not in distress, legally blind. VITAL SIGNS: This morning blood pressure 129/67, pulse 91, respirations 20, temperature 98.4 and O2 saturation 96%. Height 5 feet 2 inches and weight is 120 pounds. HEENT: Pupils are normal and reactive to light and accommodation. Conjunctivae pink. Sclerae anicteric. Tongue is moist. Trachea is midline. LUNGS: Symmetric on both sides. Bilateral breath sounds present. Clear on auscultation. CARDIOVASCULAR: [place] at the sixth intercostal space, midclavicular line, S1 and S2 audible. No murmur, no gallop. ABDOMEN: Normal in appearance, soft, tympanic. No guarding. No hepatosplenomegaly. CENTRAL NERVOUS SYSTEM: The patient is alert, awake, oriented x2. Sensory and motor system is grossly within normal limits. EXTREMITIES: No cyanosis, no clubbing, no edema. CURRENT MEDICATIONS: Include as follows; Megace 40 mg p.o. daily, Nephro-Andrea one tablet daily, Epogen 10,000 units three times a week Thursday, , and Thursday, Xalatan eye drops; and Zemplar 1 mcg three times a week. LABORATORY DATA: As follows: As of 10/14/2016; H&H is 8.8/27.9 and platelets 111. Potassium 3.5, BUN 13, and creatinine 2.1. Post dialysis calcium 8.5 and phosphors 1.8. IMPRESSION: In summary, Ms. Denise Garcia is an 80 years old elderly female with a history of hypertension, rheumatoid arthritis, cardiomyopathy, thrombotic thrombocytopenic purpura and renal failure. 1. Renal failure most likely secondary to end-stage renal disease secondary to thrombotic thrombocytopenic purpura and cannot rule out thrombotic microangiopathy. 2. Cardiomyopathy. 3. Hypertension. 4. Anemia. 5. 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 PLAN: The patient is scheduled for PICC line placement and also for the rituximab infusion today. We will try to hold hemodialysis tomorrow as requested by hematology. We will schedule for hemodialysis on Thursday. Repeat labs on Thursday also. Thank you for allowing me to participate in your patient's care. Horacio Graham MD
--- NOTE | 2016-10-16 10:37 | US ---
Date of procedure: 10/15/2016 Procedure: Ultrasound guidance for vascular access HISTORY: Infection requiring long-term IV antibiotics TECHNIQUE: Following informed consent and procedure time-out, the patient placed supine on the interventional table and the left arm prepped and draped in the usual sterile fashion. Ultrasound showed a patent and compressible basilic vein. After the skin was anesthetized with lidocaine, the basilic vein was accessed with micro micropuncture technique using ultrasound guidance. An image documenting ultrasound guidance for vascular access was permanently saved. IMPRESSION: Ultrasound guidance for vascular access for placement of PICC.
--- NOTE | 2016-10-16 10:38 | RAD ---
PROCEDURE: Date of procedure: 10/15/2016 Procedure: 1. Placement of a left arm PICC with ultrasound and fluoroscopic guidance, CPT 34458 2. PICC tip confirmation with spot radiograph and is in the superior vena cava Medications: 1 percent lidocaine Total Fluoro time: 8.seconds Radiation: 3.32 EBL: 3 cc HISTORY: Infection requiring long-term IV antibiotics TECHNIQUE: Following informed consent and procedure time-out, the patient placed supine on the interventional table and the left arm prepped and draped in the usual sterile fashion. Ultrasound showed a patent and compressible left basilic vein. After the skin was anesthetized with lidocaine, the basilic vein was accessed with micro micropuncture technique using ultrasound guidance. A guidewire was then advanced under fluoroscopic guidance into the superior vena cava. An image documenting ultrasound guidance for vascular access was permanently saved. The length of a single-lumen 4 [place] PICC was trimmed to 35 and advanced through a peel-away sheath. The PICC was position with tip of PICC confirm a spot radiograph the superior vena cava. The PICC was secured to the patient's skin. The PICC was flushed. A biopatch and sterile dressing was applied. IMPRESSION: Placement of a single-lumen 4 [place] PICC left basilic vein trimmed to 35. The tip of the PICC is confirmed with spot radiograph and is in the superior vena cava.
[2016-10-16] MEDS: Paricalcitol 2 mcg/ml Inj IV SCH (12:21)
[2016-10-16] MEDS: Epoetin Alfa 10,000 unit/ml Dialysis IV SCH (12:22)
[2016-10-16] MEDS ORDERED: DiphenhydrAMINE 50 mg/ml Inj IVP ONE (13:30)
[2016-10-16] MEDS ORDERED: SODIUM CHLORIDE 0.9% IVPB ONE (13:30)
[2016-10-16] MEDS ORDERED: DEXAMETHASONE IVPB ONE (13:30)
[2016-10-16] MEDS ORDERED: ONDANSETRON IVPB ONE (13:30)
[2016-10-16] MEDS ORDERED: Acetaminophen 650mg/20.3ml solution UD PO ONE (13:45)
--- NOTE | 2016-10-16 18:45 | CP.PCM.PN ---
Subjective - Date & Time of Evaluation Date of Evaluation: 10/16/16 Time of Evaluation: 16:00 - Subjective Subjective: Tolerated 3rd dose of Rituximab well. Objective - Vital Signs/Intake and Output Vital Signs (last 24 hours): Temp Pulse Resp BP Pulse Ox 98.1 F 83 20 135/73 100 10/16/16 15:00 10/16/16 15:00 10/16/16 15:00 10/16/16 15:00 10/16/16 15:00 Intake and Output: 10/16/16 10/16/16 06:59 18:59 Intake Total 410 300 Balance 410 300 - Medications Medications: Current Medications Epoetin Herve (Procrit) 10,000 unit IV TTS [facility] Last Admin: 10/16/16 12:22 Dose: 10,000 unit Heparin Sodium (Porcine) (Heparin) 3,400 units IVP TTS [facility] Last Admin: 10/16/16 12:21 Dose: 3,400 units Paricalcitol (Zemplar) 1 mcg IV TTS [facility] Last Admin: 10/16/16 12:21 Dose: 1 mcg Vitamin B Complex/Vit C/Folic Acid (Nephro-Andrea) 1 tab PO 0800 [facility] Last Admin: 10/16/16 08:11 Dose: 1 tab - Labs Labs: 10/14/16 15:33 10/14/16 15:33 PT 11.9 SECONDS (9.7-12.2) 09/20/16 06:23 INR 1.1 09/20/16 06:23 APTT 28 SECONDS (21-34) 09/20/16 06:23 - Head Exam Head Exam: ATRAUMATIC - Eye Exam Eye Exam: Normal appearance - ENT Exam ENT Exam: Mucous Membranes Dry - Respiratory Exam Respiratory Exam: NORMAL BREATHING PATTERN - Cardiovascular Exam Cardiovascular Exam: +S1, +S2 - GI/Abdominal Exam GI & Abdominal Exam: Normal Bowel Sounds Assessment and Plan (1) TTP (thrombotic thrombocytopenic purpura) Assessment & Plan: refractory to plasma exchange 3rd dose of Rituximab given today, last dose in 1 week Status: Acute
--- NOTE | 2016-10-16 23:06 | PN ---
FOLLOWUP RENAL CONSULTATION LOCATION: The patient is located in room 354, bed A. REQUESTED BY: Dr. Kavon Ureña. REASON FOR FOLLOWUP: Endstage renal disease for continuation of hemodialysis. HISTORY OF PRESENT ILLNESS: The patient is an 80 years old elderly female with a history of hypertension; rheumatoid arthritis; CHF; cardiomyopathy; thrombocytopenia; TTP; and renal failure, on hemodialysis 3 times a week, Thursday, , and Thursday. The patient was seen and examined during dialysis and denies any complaints. UF goal is about 1.5 L. No complaints. PHYSICAL EXAMINATION: VITAL SIGNS: Blood pressure 124/88, pulse 97, respirations about 20, temperature 98, saturation 97%, height 5 feet 2 inches and weight is 120 pounds. GENERAL: The patient is an 80-year-old elderly female, moderately built, moderately nourished, not in distress. HEENT: Pupils are normal and reactive to light and accommodation. Conjunctivae pink. Sclerae anicteric. Tongue is moist. Trachea is midline. LUNGS: Symmetric on both sides. Bilateral breath sounds present. Clear on auscultation. CARDIOVASCULAR SYSTEM: [place] at the sixth intercostal space, midclavicular line, S1 and S2 audible. No murmur, no gallop. ABDOMEN: Normal in appearance, soft, tympanic. No guarding, no rigidity. No hepatosplenomegaly. CENTRAL NERVOUS SYSTEM: The patient is alert, awake, and oriented x3. Nonfocal neuro examination. Cranial nerves II through XII grossly intact. Sensory and motor system is grossly within normal limits. EXTREMITIES: No cyanosis, no clubbing, no edema. CURRENT MEDICATIONS: Include as follows: Heparin 1700 units in each port 3 times a week; Nephro-Andrea 1 tablet p.o. daily; Procrit 10,000 units 3 times a week, Thursday, , and Thursday; and Zemplar 1 mcg 3 times a week, TTS. LABORATORY DATA: No new labs are available for today. As of 10/14/2016; H and H 8.8/27.9, platelets 111, potassium 3.5, BUN 13, creatinine 2.1, calcium 8.5, and phosphorus 1.8 post dialysis. No new labs available for today. ASSESSMENT AND PLAN: In summary, the patient is an 80 years old elderly female with hypertension; rheumatoid arthritis; congestive heart failure; cardiomyopathy; anemia; thrombocytopenia; thrombotic thrombocytopenic purpura; and renal failure, on hemodialysis 3 times a week, Thursday, , and Thursday. 1. Renal failure, most likely endstage renal disease. The patient is on hemodialysis almost [id number] to three months secondary to thrombotic thrombocytopenic purpura, cannot rule out thrombotic microangiopathy secondary to thrombotic thrombocytopenic purpura. The patient's family refused biopsy in the past. 2. Hypertension, blood pressure stable. 3. Cardiomyopathy. 4. Anemia. 5. Thrombocytopenia secondary to thrombotic thrombocytopenic purpura, continue rituximab post dialysis today as per hematology recommendation. We will follow with you. Thank you for allowing me to participate in your patient's care. Horacio Graham MD
[2016-10-17] MEDS: Multivitamin Vitamin B Complex (Nephro-Vite) Tab PO SCH (07:55)
--- NOTE | 2016-10-17 18:09 | CP.PCM.PN ---
Subjective - Date & Time of Evaluation Date of Evaluation: 10/17/16 Time of Evaluation: 18:09 - Subjective Subjective: pt is seen and examined, follow up consult is dictated #[id number] hd in am Objective - Vital Signs/Intake and Output Vital Signs (last 24 hours): Temp Pulse Resp BP Pulse Ox 98.1 F 96 H 20 139/67 96 10/17/16 15:00 10/17/16 15:00 10/17/16 15:00 10/17/16 15:00 10/17/16 15:00 Intake and Output: 10/17/16 10/17/16 06:59 18:59 Intake Total 250 Balance 250 - Medications Medications: Current Medications Epoetin Herve (Procrit) 10,000 unit IV TTS [facility] Last Admin: 10/16/16 12:22 Dose: 10,000 unit Paricalcitol (Zemplar) 1 mcg IV TTS [facility] Last Admin: 10/16/16 12:21 Dose: 1 mcg Vitamin B Complex/Vit C/Folic Acid (Nephro-Andrea) 1 tab PO 0800 [facility] Last Admin: 10/17/16 07:55 Dose: 1 tab - Labs Labs: 10/14/16 15:33 10/14/16 15:33 PT 11.9 SECONDS (9.7-12.2) 09/20/16 06:23 INR 1.1 09/20/16 06:23 APTT 28 SECONDS (21-34) 09/20/16 06:23
--- NOTE | 2016-10-17 18:26 | CP.PCM.PN ---
Subjective - Date & Time of Evaluation Date of Evaluation: 10/17/16 Time of Evaluation: 07:00 - Subjective Subjective: clinically same Objective - Vital Signs/Intake and Output Vital Signs (last 24 hours): Temp Pulse Resp BP Pulse Ox 98.1 F 96 H 20 139/67 96 10/17/16 15:00 10/17/16 15:00 10/17/16 15:00 10/17/16 15:00 10/17/16 15:00 Intake and Output: 10/17/16 10/17/16 06:59 18:59 Intake Total 250 Balance 250 - Medications Medications: Current Medications Epoetin Herve (Procrit) 10,000 unit IV TTS [facility] Last Admin: 10/16/16 12:22 Dose: 10,000 unit Paricalcitol (Zemplar) 1 mcg IV TTS [facility] Last Admin: 10/16/16 12:21 Dose: 1 mcg Vitamin B Complex/Vit C/Folic Acid (Nephro-Andrea) 1 tab PO 0800 [facility] Last Admin: 10/17/16 07:55 Dose: 1 tab - Labs Labs: 10/14/16 15:33 10/14/16 15:33 PT 11.9 SECONDS (9.7-12.2) 09/20/16 06:23 INR 1.1 09/20/16 06:23 APTT 28 SECONDS (21-34) 09/20/16 06:23 - Constitutional Appears: Well - Head Exam Head Exam: ATRAUMATIC, NORMAL INSPECTION, NORMOCEPHALIC - Eye Exam Eye Exam: EOMI, Normal appearance, PERRL Pupil Exam: NORMAL ACCOMODATION, PERRL - ENT Exam ENT Exam: Mucous Membranes Moist, Normal Exam - Neck Exam Neck Exam: Full ROM, Normal Inspection. absent: Lymphadenopathy - Respiratory Exam Respiratory Exam: Decreased Breath Sounds - Cardiovascular Exam Cardiovascular Exam: REGULAR RHYTHM, +S1, +S2 - GI/Abdominal Exam GI & Abdominal Exam: Soft, Diminished Bowel Sounds - Rectal Exam Rectal Exam: Deferred Assessment and Plan (1) Cardiac dysrhythmia Status: Acute (2) ESRD (end stage renal disease) on dialysis Status: Acute (3) Pulmonary edema Status: Acute (4) MARCO (acute kidney injury) Status: Acute (5) Acute respiratory failure requiring reintubation Status: Acute (6) Arthritis Status: Acute (7) CHF (congestive heart failure) Status: Acute (8) Dehydration Status: Acute (9) Dehydration Status: Acute (10) Diverticulosis Status: Acute (11) Elevated CEA Status: Acute (12) Hypertension Status: Acute (13) Inguinal lymphadenopathy Status: Acute (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
[2016-10-18 08:34] LABS: HEMATOCRIT 26.1 % (34.0-47.0); MEAN CELL VOLUME 86.8 fL (81.0-99.0); MEAN CORPUSCULAR HEMOGLOBIN 27.5 pg (27.0-31.0); MEAN CORPUSCULAR HGB CONC 31.7 g/dL (33.0-37.0); RED CELL DISTRIBUTION WIDTH 20.3 % (11.5-14.5); WHITE BLOOD COUNT 10.1 K/uL (4.8-10.8)
[2016-10-18 08:58] LABS: ALB/GLOB RATIO 0.8 (1.0-2.1); BILIRUBIN,TOTAL 0.3 mg/dL (0.2-1.3); CALCIUM 8.7 mg/dl (8.6-10.4); TOTAL PROTEIN 5.8 g/dL (6.3-8.3)
[2016-10-18] MEDS: Multivitamin Vitamin B Complex (Nephro-Vite) Tab PO SCH (09:00)
--- NOTE | 2016-10-18 10:30 | CP.PCM.PN ---
Subjective - Date & Time of Evaluation Date of Evaluation: 10/18/16 Time of Evaluation: 10:29 - Subjective Subjective: PT IS SEEN AND EXAMINED, FOLLOW UP CONSULT IS DICTATED #[id number] SEEN IN HD, UF GOAL IS 1.5 LIT HYPERKALEMIA, WILL USE 2 K+ BATH Objective - Vital Signs/Intake and Output Vital Signs (last 24 hours): Temp Pulse Resp BP Pulse Ox 98.5 F 73 20 154/82 H 95 10/18/16 00:00 10/18/16 10:00 10/18/16 00:00 10/18/16 10:00 10/18/16 00:00 Intake and Output: 10/18/16 10/18/16 06:59 18:59 Intake Total 350 Balance 350 - Medications Medications: Current Medications Epoetin Herve (Procrit) 10,000 unit IV TTS [facility] Last Admin: 10/16/16 12:22 Dose: 10,000 unit Paricalcitol (Zemplar) 1 mcg IV TTS [facility] Last Admin: 10/16/16 12:21 Dose: 1 mcg Vitamin B Complex/Vit C/Folic Acid (Nephro-Andrea) 1 tab PO 0800 [facility] Last Admin: 10/18/16 09:00 Dose: 1 tab - Labs Labs: 10/18/16 08:18 10/18/16 08:18 PT 11.9 SECONDS (9.7-12.2) 09/20/16 06:23 INR 1.1 09/20/16 06:23 APTT 28 SECONDS (21-34) 09/20/16 06:23
[2016-10-18] MEDS: Epoetin Alfa 10,000 unit/ml Dialysis IV SCH (11:52)
[2016-10-18] MEDS: Paricalcitol 2 mcg/ml Inj IV SCH (11:53)
--- NOTE | 2016-10-18 15:02 | CP.PCM.PN ---
Subjective - Date & Time of Evaluation Date of Evaluation: 10/18/16 Time of Evaluation: 07:00 - Subjective Subjective: clinically same Objective - Vital Signs/Intake and Output Vital Signs (last 24 hours): Temp Pulse Resp BP Pulse Ox 98 F 73 16 146/83 96 10/18/16 13:40 10/18/16 13:40 10/18/16 13:40 10/18/16 13:40 10/18/16 13:40 Intake and Output: 10/18/16 10/18/16 06:59 18:59 Intake Total 350 Balance 350 - Medications Medications: Current Medications Epoetin Herve (Procrit) 10,000 unit IV TTS [facility] Last Admin: 10/18/16 11:52 Dose: 10,000 unit Paricalcitol (Zemplar) 1 mcg IV TTS [facility] Last Admin: 10/18/16 11:53 Dose: 1 mcg Vitamin B Complex/Vit C/Folic Acid (Nephro-Andrea) 1 tab PO 0800 [facility] Last Admin: 10/18/16 09:00 Dose: 1 tab - Labs Labs: 10/18/16 08:18 10/18/16 08:18 PT 11.9 SECONDS (9.7-12.2) 09/20/16 06:23 INR 1.1 09/20/16 06:23 APTT 28 SECONDS (21-34) 09/20/16 06:23 - Constitutional Appears: Well - Head Exam Head Exam: ATRAUMATIC, NORMAL INSPECTION, NORMOCEPHALIC - Eye Exam Eye Exam: EOMI, Normal appearance, PERRL Pupil Exam: NORMAL ACCOMODATION, PERRL - ENT Exam ENT Exam: Mucous Membranes Moist, Normal Exam - Neck Exam Neck Exam: Full ROM, Normal Inspection. absent: Lymphadenopathy - Respiratory Exam Respiratory Exam: Decreased Breath Sounds - Cardiovascular Exam Cardiovascular Exam: REGULAR RHYTHM, +S1, +S2 - GI/Abdominal Exam GI & Abdominal Exam: Soft, Diminished Bowel Sounds - Rectal Exam Rectal Exam: Deferred Assessment and Plan (1) Cardiac dysrhythmia Status: Acute (2) ESRD (end stage renal disease) on dialysis Status: Acute (3) Pulmonary edema Status: Acute (4) MARCO (acute kidney injury) Status: Acute (5) Acute respiratory failure requiring reintubation Status: Acute (6) Arthritis Status: Acute (7) CHF (congestive heart failure) Status: Acute (8) Dehydration Status: Acute (9) Dehydration Status: Acute (10) Diverticulosis Status: Acute (11) Elevated CEA Status: Acute (12) Hypertension Status: Acute (13) Inguinal lymphadenopathy Status: Acute (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 michelle carroll renal s/p plsma exchange without much relief
--- NOTE | 2016-10-19 01:33 | PN ---
FOLLOWUP RENAL CONSULTATION DATE: LOCATION: The patient is located in room 354, bed A. SUBJECTIVE: Mrs. Denise Garcia is an 80-year-old elderly female with a past medical history significant for hypertension, rheumatoid arthritis, cardiomyopathy, CHF, respiratory failure status post intubation x2, thrombocytopenia, anemia, GERD, diagnosed TTP with renal failure, on hemodialysis three times a week Thursday, , Thursday for the last 2-1/2 to 3 months, being treated with Rituximab q. weekly. The patient received 3 doses of Rituximab without any complications. The patient was seen and examined during dialysis this morning and UF goal is about 1.5 L. The patient was also noticed to have hyperkalemia and scheduled to receive the 1K bath during dialysis. Discussed with dialysis nursing in rounds. PHYSICAL EXAMINATION: GENERAL: The patient is not in acute distress. Mrs. Denise Garcia is an 80-year-old elderly female, moderately built, moderately nourished, not in distress. VITAL SIGNS: Blood pressure 157/94, pulse 65, respirations 14, temperature 98, saturation 96%. HEENT: Pupils are normal and reactive to light and accommodation. Conjunctivae, slightly pale. Sclerae anicteric. Legally blind. Tongue is moist. LUNGS: Symmetric on both sides. Bilateral breath sounds present. Clear on auscultation. CVS: [place] at the fifth intercostal space, midclavicular line, S1 and S2 audible. No murmur, no gallop. ABDOMEN: Normal in appearance, soft, tympanic. No guarding, no rigidity. No hepatosplenomegaly. CENTRAL NERVOUS SYSTEM: The patient is alert, awake. Following simple commands. EXTREMITIES: No cyanosis, no clubbing, no edema. Sensory and motor system is grossly within normal limits. The patient is bedridden for the last 2-1/2 to 3 months. CURRENT MEDICATIONS: Include as follows: Nephro-Andrea 1 tablet daily; Procrit 10,000 units 3 times a week, Zemplar 1 mcg 3 times a week. LABORATORY DATA: Include as follows: As of 10/18/2016; WBC 10.1, hemoglobin 8.3, hematocrit is 26.1, platelets 145. Sodium 135 and potassium is 6, chloride 96, CO2 28, BUN 42, creatinine 4.2, glucose 107, calcium 8.7, total bili 0.3, AST 34 and ALT 40, alkaline phosphatase 142, total protein 5.8, albumin is 2.6. ASSESSMENT AND PLAN: In summary, Ms. Denise Garcia is an 80-year-old elderly female with a history of hypertension, rheumatoid arthritis, cardiomyopathy, thrombocytopenia, anemia, renal failure. 1. 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 2. Hypertension. Blood pressure is stable so far, only blood pressure raised during dialysis this morning. Continue to monitor and add amlodipine 2.5 mg daily or Coreg 3.125 mg p.o. daily and titrate as needed. 3. 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 4. Hyperkalemia secondary to supplement of the potassium last night by primary medical doctor. We will repeat BMP in a.m. and continue Nephro-Andrea and continue Procrit and Zemplar. Thank you for allowing me to participate in your patient's care. Horacio Graham MD
[2016-10-19] MEDS: Multivitamin Vitamin B Complex (Nephro-Vite) Tab PO SCH (08:48)
--- NOTE | 2016-10-19 10:05 | CP.PCM.PN ---
Subjective - Date & Time of Evaluation Date of Evaluation: 10/19/16 Time of Evaluation: 07:00 - Subjective Subjective: clinically same Objective - Vital Signs/Intake and Output Vital Signs (last 24 hours): Temp Pulse Resp BP Pulse Ox 98.9 F 98 H 20 128/68 97 10/19/16 08:00 10/19/16 08:00 10/19/16 08:00 10/19/16 08:00 10/19/16 08:00 Intake and Output: 10/19/16 10/19/16 06:59 18:59 Intake Total 100 Output Total 1 Balance 99 - Medications Medications: Current Medications Epoetin Herve (Procrit) 10,000 unit IV TTS [facility] Last Admin: 10/18/16 11:52 Dose: 10,000 unit Paricalcitol (Zemplar) 1 mcg IV TTS [facility] Last Admin: 10/18/16 11:53 Dose: 1 mcg Vitamin B Complex/Vit C/Folic Acid (Nephro-Andrea) 1 tab PO 0800 [facility] Last Admin: 10/19/16 08:48 Dose: 1 tab - Labs Labs: 10/18/16 08:18 10/18/16 08:18 PT 11.9 SECONDS (9.7-12.2) 09/20/16 06:23 INR 1.1 09/20/16 06:23 APTT 28 SECONDS (21-34) 09/20/16 06:23 - Constitutional Appears: Well - Head Exam Head Exam: ATRAUMATIC, NORMAL INSPECTION, NORMOCEPHALIC - Eye Exam Eye Exam: EOMI, Normal appearance, PERRL Pupil Exam: NORMAL ACCOMODATION, PERRL - ENT Exam ENT Exam: Mucous Membranes Moist, Normal Exam - Neck Exam Neck Exam: Full ROM, Normal Inspection. absent: Lymphadenopathy - Respiratory Exam Respiratory Exam: Decreased Breath Sounds - Cardiovascular Exam Cardiovascular Exam: REGULAR RHYTHM, +S1, +S2 - GI/Abdominal Exam GI & Abdominal Exam: Soft, Diminished Bowel Sounds - Rectal Exam Rectal Exam: Deferred Assessment and Plan (1) Cardiac dysrhythmia Status: Acute (2) ESRD (end stage renal disease) on dialysis Status: Acute (3) Pulmonary edema Status: Acute (4) MARCO (acute kidney injury) Status: Acute (5) Acute respiratory failure requiring reintubation Status: Acute (6) Arthritis Status: Acute (7) CHF (congestive heart failure) Status: Acute (8) Dehydration Status: Acute (9) Dehydration Status: Acute (10) Diverticulosis Status: Acute (11) Elevated CEA Status: Acute (12) Hypertension Status: Acute (13) Inguinal lymphadenopathy Status: Acute (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
--- NOTE | 2016-10-19 12:37 | CP.PCM.PN ---
Subjective - Date & Time of Evaluation Date of Evaluation: 10/19/16 Time of Evaluation: 12:37 - Subjective Subjective: pt is seen and examined, follow up consult is dictated #[id number] Objective - Vital Signs/Intake and Output Vital Signs (last 24 hours): Temp Pulse Resp BP Pulse Ox 98.9 F 98 H 20 128/68 97 10/19/16 08:00 10/19/16 08:00 10/19/16 08:00 10/19/16 08:00 10/19/16 08:00 Intake and Output: 10/19/16 10/19/16 06:59 18:59 Intake Total 100 Output Total 1 Balance 99 - Medications Medications: Current Medications Epoetin Herve (Procrit) 10,000 unit IV TTS [facility] Last Admin: 10/18/16 11:52 Dose: 10,000 unit Paricalcitol (Zemplar) 1 mcg IV TTS [facility] Last Admin: 10/18/16 11:53 Dose: 1 mcg Vitamin B Complex/Vit C/Folic Acid (Nephro-Andrea) 1 tab PO 0800 [facility] Last Admin: 10/19/16 08:48 Dose: 1 tab - Labs Labs: 10/18/16 08:18 10/18/16 08:18 PT 11.9 SECONDS (9.7-12.2) 09/20/16 06:23 INR 1.1 09/20/16 06:23 APTT 28 SECONDS (21-34) 09/20/16 06:23
--- NOTE | 2016-10-19 14:23 | CP.PCM.PN ---
Subjective - Date & Time of Evaluation Date of Evaluation: 10/19/16 Time of Evaluation: 08:00 - Subjective Subjective: RX IN PROGRESS Objective - Vital Signs/Intake and Output Vital Signs (last 24 hours): Temp Pulse Resp BP Pulse Ox 98.9 F 98 H 20 128/68 97 10/19/16 08:00 10/19/16 08:00 10/19/16 08:00 10/19/16 08:00 10/19/16 08:00 Intake and Output: 10/19/16 10/19/16 06:59 18:59 Intake Total 100 Output Total 1 Balance 99 - Medications Medications: Current Medications Epoetin Herve (Procrit) 10,000 unit IV TTS [facility] Last Admin: 10/18/16 11:52 Dose: 10,000 unit Paricalcitol (Zemplar) 1 mcg IV TTS [facility] Last Admin: 10/18/16 11:53 Dose: 1 mcg Vitamin B Complex/Vit C/Folic Acid (Nephro-Andrea) 1 tab PO 0800 [facility] Last Admin: 10/19/16 08:48 Dose: 1 tab - Labs Labs: 10/18/16 08:18 10/18/16 08:18 PT 11.9 SECONDS (9.7-12.2) 09/20/16 06:23 INR 1.1 09/20/16 06:23 APTT 28 SECONDS (21-34) 09/20/16 06:23 - Constitutional Appears: Non-toxic, Chronically Ill - Head Exam Head Exam: NORMOCEPHALIC - Eye Exam Eye Exam: PERRL - ENT Exam ENT Exam: Mucous Membranes Dry - Neck Exam Neck Exam: absent: Lymphadenopathy - Respiratory Exam Respiratory Exam: Decreased Breath Sounds - Cardiovascular Exam Cardiovascular Exam: REGULAR RHYTHM - GI/Abdominal Exam GI & Abdominal Exam: Soft - Rectal Exam Rectal Exam: Deferred Assessment and Plan (1) Cardiac dysrhythmia Status: Acute (2) ESRD (end stage renal disease) on dialysis Status: Acute (3) Pulmonary edema Status: Acute (4) Acute respiratory failure requiring reintubation Status: Acute (5) Arthritis Status: Acute (6) CHF (congestive heart failure) Status: Acute (7) Dehydration Status: Acute (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
--- NOTE | 2016-10-19 21:52 | CP.PCM.PN ---
Subjective - Date & Time of Evaluation Date of Evaluation: 10/17/16 Time of Evaluation: 18:00 - Subjective Subjective: Appears comfortable Objective - Vital Signs/Intake and Output Vital Signs (last 24 hours): Temp Pulse Resp BP Pulse Ox 98.8 F 92 H 20 127/67 95 10/19/16 16:00 10/19/16 16:00 10/19/16 16:00 10/19/16 16:00 10/19/16 16:00 Intake and Output: 10/19/16 10/20/16 18:59 06:59 Intake Total 400 Balance 400 - Medications Medications: Current Medications Epoetin Herve (Procrit) 10,000 unit IV TTS [facility] Last Admin: 10/18/16 11:52 Dose: 10,000 unit Paricalcitol (Zemplar) 1 mcg IV TTS [facility] Last Admin: 10/18/16 11:53 Dose: 1 mcg Vitamin B Complex/Vit C/Folic Acid (Nephro-Andrea) 1 tab PO 0800 [facility] Last Admin: 10/19/16 08:48 Dose: 1 tab - Labs Labs: 10/18/16 08:18 10/18/16 08:18 PT 11.9 SECONDS (9.7-12.2) 09/20/16 06:23 INR 1.1 09/20/16 06:23 APTT 28 SECONDS (21-34) 09/20/16 06:23 - Head Exam Head Exam: ATRAUMATIC - Eye Exam Eye Exam: Normal appearance - ENT Exam ENT Exam: Mucous Membranes Dry - Respiratory Exam Respiratory Exam: NORMAL BREATHING PATTERN - Cardiovascular Exam Cardiovascular Exam: +S1, +S2 - GI/Abdominal Exam GI & Abdominal Exam: Normal Bowel Sounds Assessment and Plan (1) TTP (thrombotic thrombocytopenic purpura) Assessment & Plan: refractory to plasma exchange s/p 3 doses of Rituximab last dose due after dialysis Status: Acute
--- NOTE | 2016-10-19 21:55 | CP.PCM.PN ---
Subjective - Date & Time of Evaluation Date of Evaluation: 10/18/16 Time of Evaluation: 15:00 - Subjective Subjective: Appears comfortable Objective - Vital Signs/Intake and Output Vital Signs (last 24 hours): Temp Pulse Resp BP Pulse Ox 98.8 F 92 H 20 127/67 95 10/19/16 16:00 10/19/16 16:00 10/19/16 16:00 10/19/16 16:00 10/19/16 16:00 Intake and Output: 10/19/16 10/20/16 18:59 06:59 Intake Total 400 Balance 400 - Medications Medications: Current Medications Epoetin Herve (Procrit) 10,000 unit IV TTS [facility] Last Admin: 10/18/16 11:52 Dose: 10,000 unit Paricalcitol (Zemplar) 1 mcg IV TTS [facility] Last Admin: 10/18/16 11:53 Dose: 1 mcg Vitamin B Complex/Vit C/Folic Acid (Nephro-Andrea) 1 tab PO 0800 [facility] Last Admin: 10/19/16 08:48 Dose: 1 tab - Labs Labs: 10/18/16 08:18 10/18/16 08:18 PT 11.9 SECONDS (9.7-12.2) 09/20/16 06:23 INR 1.1 09/20/16 06:23 APTT 28 SECONDS (21-34) 09/20/16 06:23 - Head Exam Head Exam: ATRAUMATIC - Eye Exam Eye Exam: Normal appearance - ENT Exam ENT Exam: Mucous Membranes Dry - Respiratory Exam Respiratory Exam: NORMAL BREATHING PATTERN - Cardiovascular Exam Cardiovascular Exam: +S1, +S2 - GI/Abdominal Exam GI & Abdominal Exam: Normal Bowel Sounds Assessment and Plan (1) TTP (thrombotic thrombocytopenic purpura) Assessment & Plan: refractory to plasma exchange 3rd dose of rituximab given last dose due after dialysis Status: Acute
--- NOTE | 2016-10-19 21:57 | CP.PCM.PN ---
Subjective - Date & Time of Evaluation Date of Evaluation: 10/19/16 Time of Evaluation: 17:00 - Subjective Subjective: Appears comfortable Objective - Vital Signs/Intake and Output Vital Signs (last 24 hours): Temp Pulse Resp BP Pulse Ox 98.8 F 92 H 20 127/67 95 10/19/16 16:00 10/19/16 16:00 10/19/16 16:00 10/19/16 16:00 10/19/16 16:00 Intake and Output: 10/19/16 10/20/16 18:59 06:59 Intake Total 400 Balance 400 - Medications Medications: Current Medications Epoetin Herve (Procrit) 10,000 unit IV TTS [facility] Last Admin: 10/18/16 11:52 Dose: 10,000 unit Paricalcitol (Zemplar) 1 mcg IV TTS [facility] Last Admin: 10/18/16 11:53 Dose: 1 mcg Vitamin B Complex/Vit C/Folic Acid (Nephro-Andrea) 1 tab PO 0800 [facility] Last Admin: 10/19/16 08:48 Dose: 1 tab - Labs Labs: 10/18/16 08:18 10/18/16 08:18 PT 11.9 SECONDS (9.7-12.2) 09/20/16 06:23 INR 1.1 09/20/16 06:23 APTT 28 SECONDS (21-34) 09/20/16 06:23 - Head Exam Head Exam: ATRAUMATIC - Eye Exam Eye Exam: Normal appearance - ENT Exam ENT Exam: Mucous Membranes Dry - Respiratory Exam Respiratory Exam: NORMAL BREATHING PATTERN - Cardiovascular Exam Cardiovascular Exam: +S1, +S2 - GI/Abdominal Exam GI & Abdominal Exam: Normal Bowel Sounds - Extremities Exam Extremities Exam: Normal Inspection Assessment and Plan (1) TTP (thrombotic thrombocytopenic purpura) Assessment & Plan: refractory to plasma exchange s/p 3rd dose of Rituximab final dose due after dialysis Status: Acute
--- NOTE | 2016-10-20 07:13 | PN ---
FOLLOWUP RENAL CONSULTATION LOCATION: The patient is located in room 354. REQUESTED BY: Kavon Ureña MD. REASON FOR FOLLOWUP: End-stage renal disease, continuation of hemodialysis. SUBJECTIVE: The patient is an 80-year-old elderly female with a history long-standing hypertension; rheumatoid arthritis; CHF; cardiomyopathy; TTP, relapsing thrombocytopenia; renal failure, on hemodialysis for the last 3 months. The patient is not in acute distress, following simple commands. No chest pain. No palpitation. No fever. No cough. The patient's daughter is at bedside. PHYSICAL EXAMINATION GENERAL: The patient is an 80-year-old elderly female, moderately built, moderately nourished, not in distress. VITAL SIGNS: As follows, blood pressure 128/68, pulse 98, respirations 20, temperature 98.9, saturation 97%. Height 5 feet 2 inches and weight is 120 pounds. HEENT: Pupils normal, reactive to light and accommodation. Conjunctivae pink. Sclera anicteric. Tongue is moist. Trachea is midline. LUNGS: Symmetric on both sides. Bilateral breath sounds present. Clear on auscultation. CARDIOVASCULAR: [place] at the sixth intercostal space, midclavicular line. S1 and S2 audible. No murmur or gallop. ABDOMEN: Normal in appearance, soft, tympanic. No guarding, no rigidity. No hepatosplenomegaly. CENTRAL NERVOUS SYSTEM: The patient is alert, awake, oriented x2. Sensory and motor system is grossly within normal limits. EXTREMITIES: No cyanosis, no clubbing, no edema. CURRENT MEDICATIONS: Include as follows: Nephro-Andrea 1 tablet daily, Epogen 10,000 units IV push 3 times a week TTS and Zemplar 1 mcg IV push 3 times a week Thursday, and Thursday. LABORATORY DATA: No new labs are available for today. As of 10/18/2016, H and H 8.3/26.1, platelets 145, potassium 6, BUN 42, creatinine 4.2. ASSESSMENT AND PLAN: In summary, the patient is an 80-year-old elderly female with history of long-standing hypertension, rheumatoid arthritis, renal failure, thrombocytopenia, cardiomyopathy. 1. Renal failure, most likely end-stage renal disease secondary to thrombotic thrombocytopenic purpura and thrombotic microangiopathy cannot be ruled out. 2. Anemia secondary to renal failure and thrombotic thrombocytopenic purpura. 3. Thrombocytopenia status post plasmapheresis x3 sessions and the patient is being treated with rituximab q. weekly. The patient received 3 doses so far. 4. Cardiomyopathy. Continue Epogen 3 times a week, continue Zemplar, continue Nephro-Andrea. Overall prognosis is guarded. Thank you for allowing me to participate in your patient's care. Next scheduling will be on Thursday. Horacio Graham MD
[2016-10-20 07:16] LABS: BASO % 0.4 % (0.0-2.0); EOS # 0.2 K/uL (0.0-0.7); EOS % 2.2 % (0.0-4.0); HEMATOCRIT 26.8 % (34.0-47.0); LYMPH # 0.9 K/uL (1.0-4.3); LYMPH % 8.7 % (20.0-40.0); MEAN CELL VOLUME 85.2 fL (81.0-99.0); MEAN CORPUSCULAR HEMOGLOBIN 26.9 pg (27.0-31.0); MEAN CORPUSCULAR HGB CONC 31.5 g/dL (33.0-37.0); MEAN PLATELET VOLUME 9.1 fL (7.2-11.7); MONO # 1.3 K/uL (0.0-0.8); MONO % 12.1 % (0.0-10.0); NRBC % 0.1 % (0.0-2.0); PLATELET COUNT 135 K/uL (130-400); RED CELL DISTRIBUTION WIDTH 20.2 % (11.5-14.5); WHITE BLOOD COUNT 10.3 K/uL (4.8-10.8)
[2016-10-20 07:55] LABS: POTASSIUM 5.3 mmol/L (3.6-5.2)
[2016-10-20 07:58] LABS: BILIRUBIN,TOTAL 0.5 mg/dL (0.2-1.3); TOTAL PROTEIN 5.7 g/dL (6.3-8.3)
[2016-10-20] MEDS: Multivitamin Vitamin B Complex (Nephro-Vite) Tab PO SCH (07:58)
[2016-10-20 07:59] LABS: CALCIUM 8.4 mg/dl (8.6-10.4)
[2016-10-20 08:36] LABS: BASOPHIL 1 % (0-2); NEUTROPHIL 78 % (50-75); NUCLEATED RED BLOOD CELL 1 % (0-0); TOTAL CELLS COUNTED 100
[2016-10-20 08:37] LABS: LARGE PLATELETS PRESENT
--- NOTE | 2016-10-20 13:37 | CON ---
FOLLOW UP RENAL CONSULTATION LOCATION: The patient is located in room 354, bed A. REQUESTING PHYSICIAN: Kavon Ureña MD REASON FOR FOLLOWUP: End-stage renal disease, continuation of hemodialysis. HISTORY OF PRESENT ILLNESS: The patient is an 80-year-old elderly female with history of hypertension, rheumatoid arthritis, cardiomyopathy, CHF, status post intubation x2, plasmapheresis x3 sessions in the last 3 months with relapsing TTP, thrombocytopenia, renal failure on hemodialysis 3 times a week, was started on rituximab q. weekly. The patient received the rituximab yesterday post-dialysis. The patient is not in any acute distress. Feeling better. No complaints. No chest pain. No palpitations. No fever. No cough. PHYSICAL EXAMINATION VITAL SIGNS: As follows; blood pressure 124/72, pulse 96, respirations 20, temperature 97.5, and saturation 96%. Height 5 feet 2 inches, weight is 120 pounds. GENERAL: The patient is an 80-year-old elderly female , moderate built, moderately nourished, not in distress. HEENT: Pupils normal reactive to light and accommodation. Conjunctivae pink. Sclerae anicteric. Tongue is moist. Trachea is midline. LUNGS: Symmetry on both sides, bilateral breath sounds present. Clear on auscultation. CARDIOVASCULAR SYSTEM: [place] at the fifth intercostal space, 2:01 half inch medial to midclavicular line, S1 and S2 audible. No murmur, gallop. ABDOMEN: Normal in appearance, soft, tympanic. No guarding, no rigidity, no hepatosplenomegaly. CENTRAL NERVOUS SYSTEM: The patient is alert, awake, oriented x2 to x3. Sensory and motor system is grossly within normal limits. EXTREMITIES: No cyanosis, no clubbing, no edema. CURRENT MEDICATIONS: Include as follows: Nephro-Andrea 1 tablet daily, KCl 20 mEq IV piggyback x1, Procrit 10,000 units 3 times a week, and Zemplar 1 mcg 3 times a week. LABORATORY DATA: Include as follows: As of 10/14/2016; WBC 6.4, hemoglobin 8.8, hematocrit is 27.9, platelets 111. Sodium 138, potassium 3.5, chloride 98, CO2 of 28, BUN 13, creatinine 2.1, glucose 96, calcium 8.5, phosphorus is 1.8. ASSESSMENT: In summary, the patient is an 80-year-old elderly female with history of hypertension, rheumatoid arthritis, relapsing thrombotic thrombocytopenic purpura, renal failure on hemodialysis 3 times a week. 1. Renal failure, most likely secondary to thrombotic thrombocytopenic purpura and cannot rule out secondary to thrombotic microangiopathy. 2. Hypertension. 3. Cardiomyopathy. 4. Anemia. 5. Thrombocytopenia secondary to relapsing thrombotic thrombocytopenic purpura. PLAN: Continue rituximab as per hematology recommendation and we will schedule for hemodialysis in the a.m. We will follow with you. Thank you for allowing me to participate in your patient's care. The patient's family is at bedside. Horacio Graham MD
--- NOTE | 2016-10-20 19:32 | CP.PCM.PN ---
Subjective - Date & Time of Evaluation Date of Evaluation: 10/20/16 Time of Evaluation: 19:31 - Subjective Subjective: pt is seen and examined, follow up consult is dictated #[id number] Objective - Vital Signs/Intake and Output Vital Signs (last 24 hours): Temp Pulse Resp BP Pulse Ox 98.1 F 70 20 130/71 94 L 10/20/16 15:10 10/20/16 15:10 10/20/16 15:10 10/20/16 15:10 10/20/16 15:10 Intake and Output: 10/20/16 10/21/16 18:59 06:59 Intake Total 450 Balance 450 - Medications Medications: Current Medications Epoetin Herve (Procrit) 10,000 unit IV TTS [facility] Last Admin: 10/18/16 11:52 Dose: 10,000 unit Paricalcitol (Zemplar) 1 mcg IV TTS [facility] Last Admin: 10/18/16 11:53 Dose: 1 mcg Vitamin B Complex/Vit C/Folic Acid (Nephro-Andrea) 1 tab PO 0800 [facility] Last Admin: 10/20/16 07:58 Dose: 1 tab - Labs Labs: 10/20/16 07:04 10/20/16 07:04 PT 11.9 SECONDS (9.7-12.2) 09/20/16 06:23 INR 1.1 09/20/16 06:23 APTT 28 SECONDS (21-34) 09/20/16 06:23
--- NOTE | 2016-10-20 21:16 | CP.PCM.PN ---
Subjective - Date & Time of Evaluation Date of Evaluation: 10/20/16 Time of Evaluation: 07:00 - Subjective Subjective: clinically same Objective - Vital Signs/Intake and Output Vital Signs (last 24 hours): Temp Pulse Resp BP Pulse Ox 98.1 F 70 20 130/71 94 L 10/20/16 15:10 10/20/16 15:10 10/20/16 15:10 10/20/16 15:10 10/20/16 15:10 Intake and Output: 10/20/16 10/21/16 18:59 06:59 Intake Total 450 Balance 450 - Medications Medications: Current Medications Epoetin Herve (Procrit) 10,000 unit IV TTS [facility] Last Admin: 10/18/16 11:52 Dose: 10,000 unit Paricalcitol (Zemplar) 1 mcg IV TTS [facility] Last Admin: 10/18/16 11:53 Dose: 1 mcg Vitamin B Complex/Vit C/Folic Acid (Nephro-Andrea) 1 tab PO 0800 [facility] Last Admin: 10/20/16 07:58 Dose: 1 tab - Labs Labs: 10/20/16 07:04 10/20/16 07:04 PT 11.9 SECONDS (9.7-12.2) 09/20/16 06:23 INR 1.1 09/20/16 06:23 APTT 28 SECONDS (21-34) 09/20/16 06:23 - Head Exam Head Exam: ATRAUMATIC, NORMAL INSPECTION, NORMOCEPHALIC - Eye Exam Eye Exam: EOMI, Normal appearance, PERRL Pupil Exam: NORMAL ACCOMODATION, PERRL - ENT Exam ENT Exam: Mucous Membranes Moist, Normal Exam - Neck Exam Neck Exam: Full ROM, Normal Inspection. absent: Lymphadenopathy - Respiratory Exam Respiratory Exam: Decreased Breath Sounds - Cardiovascular Exam Cardiovascular Exam: REGULAR RHYTHM, +S1, +S2 - GI/Abdominal Exam GI & Abdominal Exam: Soft, Diminished Bowel Sounds - Rectal Exam Rectal Exam: Deferred Assessment and Plan (1) Cardiac dysrhythmia Status: Acute (2) ESRD (end stage renal disease) on dialysis Status: Acute (3) Pulmonary edema Status: Acute (4) MARCO (acute kidney injury) Status: Acute (5) Acute respiratory failure requiring reintubation Status: Acute (6) Arthritis Status: Acute (7) CHF (congestive heart failure) Status: Acute (8) Dehydration Status: Acute (9) Dehydration Status: Acute (10) Diverticulosis Status: Acute (11) Elevated CEA Status: Acute (12) Hypertension Status: Acute (13) Inguinal lymphadenopathy Status: Acute (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 - Assessment and Plan (Free Text) Plan: WBC is 10.3 Hemoglobin 8.5 potassium 5.3 Follow-up with him on follow-up with dialysis following continue same status post third dose of 42 rituximab Continue as ordered
--- NOTE | 2016-10-21 02:24 | PN ---
DATE: FOLLOWUP RENAL CONSULTATION LOCATION: The patient is located in room 354, bed A. REQUESTED BY: Dr. Kavon Ureña. REASON FOR RENAL FOLLOWUP: Endstage renal disease for continuation of hemodialysis. HISTORY OF PRESENT ILLNESS: Mrs. Denise Garcia is an 80 years old elderly female with a history of longstanding hypertension, rheumatoid arthritis, thrombocytopenia, cardiomyopathy, TTP, status post plasmapheresis x3 sessions, and with relapsing thrombocytopenia, on rituximab with renal failure, on hemodialysis 3 times a week Thursday, , and Thursday. The patient is not in any acute distress, resting comfortably and no complaints today. The patient's family at bedside. PHYSICAL EXAMINATION: GENERAL: Mrs. Denise Garcia is an 80 years old elderly female, moderately built, moderately nourished, not in acute distress. VITAL SIGNS: Her vital signs as follows: Blood pressure 130/71, pulse 70, respirations 20, temperature 98.1, saturation 94-95%. Height 5 feet 2 inches and weight is 120 pounds. HEENT: Pupils normal, reactive to light and accommodation. Conjunctivae pink. Sclerae anicteric. Tongue is moist. Trachea is midline. LUNGS: Symmetric on both sides. Bilateral breath sounds present. Clear on auscultation. CARDIOVASCULAR: [place] at the fifth intercostal space, midclavicular line, S1 and S2 audible, and no murmur or gallop. ABDOMEN: Normal in appearance, soft tympanic, no guarding, no rigidity, no hepatosplenomegaly. CENTRAL NERVOUS SYSTEM: The patient is alert, awake, and oriented x3. Cranial nerves II through XII grossly intact. Sensory and motor system is within normal limits. EXTREMITIES: No cyanosis, no clubbing, no edema. The patient is bedridden for the last 3 months. CURRENT MEDICATIONS: Include as follows; Nephro-Andrea 1 tablet daily and Procrit 10,000 units 3 times a week and Zemplar 1 mcg IV 3 times a week. LABORATORY DATA: Include as follows: As of 10/20/2016; WBC 10.3, hemoglobin 8.5, hematocrit is 26.8, platelets 135. Sodium 134, potassium 5.3, chloride 99, CO2 of 23, BUN 43, creatinine 4.1, glucose 80, calcium 8.4, total bilirubin 0.5. AST 27, ALT 42, alkaline phosphatase 112, total protein 5.7, albumin is 2.8. ASSESSMENT AND PLAN: In summary; Mrs. Denise Garcia is an 80 years old elderly female with a history of hypertension, rheumatoid arthritis, congestive heart failure, cardiomyopathy, thrombocytopenia, thrombotic thrombocytopenic purpura, and renal failure, on hemodialysis 3 times a week. 1. Renal failure. Most likely secondary to endstage renal disease, secondary to thrombotic thrombocytopenic purpura, cannot rule out thrombotic microangiopathy secondary to thrombotic thrombocytopenic purpura. The patient is on hemodialysis for the last 3 months. Continue hemodialysis 3 times a week. 2. Hypertension. Blood pressure is stable. 3. Cardiomyopathy. 4. Anemia secondary to renal failure and thrombotic thrombocytopenic purpura. 5. Thrombotic thrombocytopenic purpura. 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 We will follow with you. Thank you for allowing me to participate in your patient's care. For HD in a.m. Horacio Graham MD
[2016-10-21] MEDS: Multivitamin Vitamin B Complex (Nephro-Vite) Tab PO SCH (08:40)
--- NOTE | 2016-10-21 09:13 | CP.PCM.PN ---
Subjective - Date & Time of Evaluation Date of Evaluation: 10/21/16 Time of Evaluation: 09:13 - Subjective Subjective: pt is seen and examined, follow up consult is dictated #[id number] for hd today, uf 2 lit Objective - Vital Signs/Intake and Output Vital Signs (last 24 hours): Temp Pulse Resp BP Pulse Ox 98.4 F 78 20 123/68 96 10/21/16 07:48 10/21/16 07:48 10/21/16 07:48 10/21/16 07:48 10/21/16 07:48 Intake and Output: 10/21/16 10/21/16 06:59 18:59 Intake Total 200 Balance 200 - Medications Medications: Current Medications Epoetin Herve (Procrit) 10,000 unit IV TTS [facility] Last Admin: 10/18/16 11:52 Dose: 10,000 unit Paricalcitol (Zemplar) 1 mcg IV TTS [facility] Last Admin: 10/18/16 11:53 Dose: 1 mcg Vitamin B Complex/Vit C/Folic Acid (Nephro-Andrea) 1 tab PO 0800 [facility] Last Admin: 10/21/16 08:40 Dose: 1 tab - Labs Labs: 10/20/16 07:04 10/20/16 07:04 PT 11.9 SECONDS (9.7-12.2) 09/20/16 06:23 INR 1.1 09/20/16 06:23 APTT 28 SECONDS (21-34) 09/20/16 06:23
[2016-10-21] MEDS: Epoetin Alfa 10,000 unit/ml Dialysis IV SCH (10:38)
[2016-10-21] MEDS: Paricalcitol 2 mcg/ml Inj IV SCH (10:38)
[2016-10-21 10:52] LABS: IRON < 10 ug/dL (37-170)
--- NOTE | 2016-10-21 19:57 | CP.PCM.PN ---
Subjective - Date & Time of Evaluation Date of Evaluation: 10/21/16 Time of Evaluation: 07:00 - Subjective Subjective: clinically same Objective - Vital Signs/Intake and Output Vital Signs (last 24 hours): Temp Pulse Resp BP Pulse Ox 98.8 F 101 H 20 125/73 94 L 10/21/16 15:00 10/21/16 15:00 10/21/16 15:00 10/21/16 15:00 10/21/16 15:00 Intake and Output: 10/21/16 10/22/16 18:59 06:59 Intake Total 300 Balance 300 - Medications Medications: Current Medications Epoetin Herve (Procrit) 10,000 unit IV TTS [facility] Last Admin: 10/21/16 10:38 Dose: 10,000 unit Paricalcitol (Zemplar) 1 mcg IV TTS [facility] Last Admin: 10/21/16 10:38 Dose: 1 mcg Vitamin B Complex/Vit C/Folic Acid (Nephro-Andrea) 1 tab PO 0800 [facility] Last Admin: 10/21/16 08:40 Dose: 1 tab - Labs Labs: 10/20/16 07:04 10/20/16 07:04 PT 11.9 SECONDS (9.7-12.2) 09/20/16 06:23 INR 1.1 09/20/16 06:23 APTT 28 SECONDS (21-34) 09/20/16 06:23 - Constitutional Appears: Well - Head Exam Head Exam: ATRAUMATIC, NORMAL INSPECTION, NORMOCEPHALIC - Eye Exam Eye Exam: EOMI, Normal appearance, PERRL Pupil Exam: NORMAL ACCOMODATION, PERRL - ENT Exam ENT Exam: Mucous Membranes Moist, Normal Exam - Neck Exam Neck Exam: Full ROM, Normal Inspection. absent: Lymphadenopathy - Respiratory Exam Respiratory Exam: Decreased Breath Sounds - Cardiovascular Exam Cardiovascular Exam: REGULAR RHYTHM, +S1, +S2 - GI/Abdominal Exam GI & Abdominal Exam: Soft, Diminished Bowel Sounds - Rectal Exam Rectal Exam: Deferred Assessment and Plan (1) Cardiac dysrhythmia Status: Acute (2) ESRD (end stage renal disease) on dialysis Status: Acute (3) Pulmonary edema Status: Acute (4) MARCO (acute kidney injury) Status: Acute (5) Acute respiratory failure requiring reintubation Status: Acute (6) Arthritis Status: Acute (7) CHF (congestive heart failure) Status: Acute (8) Dehydration Status: Acute (9) Dehydration Status: Acute (10) Diverticulosis Status: Acute (11) Elevated CEA Status: Acute (12) Hypertension Status: Acute (13) Inguinal lymphadenopathy Status: Acute (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
--- NOTE | 2016-10-21 20:31 | PN ---
FOLLOWUP RENAL CONSULTATION LOCATION: The patient is located in room 354, bed A. REQUESTED BY: Kavon Ureña MD. REASON FOR FOLLOWUP: Endstage renal disease for continuation of hemodialysis. HISTORY OF PRESENT ILLNESS: Mrs. Denise Garcia is 81 years old elderly female with a history of hypertension, rheumatoid arthritis, thrombocytopenia, cardiomyopathy, CHF, status post respiratory failure, status post intubation x2, status post plasmapheresis x3 sessions, being treated for relapsing TTP with rituximab. The patient is also on hemodialysis 3 times a week Thursday, , and Thursday for the last three months. The patient is being dialyzed, and UF goal increased from 1.5 to 2. The patient is not in distress. No complaints. PHYSICAL EXAMINATION: VITAL SIGNS: As follows: Blood pressure 175/80, pulse 89, respirations 15, and temperature 98.2. Height 5 feet 2 inches and weight is 120 pounds. GENERAL: Mrs. Denise Garcia is 81 years old elderly female, moderately built, moderately nourished, not in acute distress. HEENT: Pupils normal, reactive to light and accommodation. Conjunctivae pink. Sclerae anicteric. Tongue is moist. Trachea is midline. LUNGS: Symmetric on both sides. Bilateral breath sounds present. Clear on auscultation. CARDIOVASCULAR: [place] at the fifth intercostal space, midclavicular line, S1 and S2 audible. No murmur or gallop. ABDOMEN: Normal in appearance, soft tympanic, no guarding, no rigidity, no hepatosplenomegaly. CENTRAL NERVOUS SYSTEM: The patient is alert, awake, and oriented x2. Sensory and motor system is also within normal limits. EXTREMITIES: No cyanosis, no clubbing, no edema. The patient is bedridden mostly. CURRENT MEDICATIONS: Include as follows; Nephro-Andrea one tablet daily, Epogen 10,000 units 3 times a week, and Zemplar 1 mcg 3 times a week. LABORATORY DATA: Include as follows: As of 10/20/2016; hemoglobin 8.5, hematocrit is 26.8, and platelets 135. Sodium 134, potassium 5.3, chloride 99, CO2 of 23, BUN 43, creatinine 4.1, glucose 80,and calcium 8.4. ASSESSMENT AND PLAN: In summary; Mrs. Denise Garcia is an 81 years old elderly female with hypertension, rheumatoid arthritis, congestive heart failure, cardiomyopathy, was found to have thrombocytopenia secondary to thrombotic thrombocytopenic purpura, altered mental status and renal failure, started on plasmapheresis with relapsing thrombotic thrombocytopenic purpura. The patient has received plasmapheresis x3 and started on rituximab. Platelets are held at this time. 1. 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 The patient is dialysis dependent for the last 3 months. 2. Hypertension. 3. Cardiomyopathy. 4. Anemia. 5. Thrombotic thrombocytopenic purpura. Continue hemodialysis 3 times a week Thursday, , and Thursday and follow up with patient's queen's counsel, Dr. Montanez for continuation of rituximab, total 4 doses as per the previous plan and we will check iron, TIBC, and ferritin levels and IV iron depending upon the iron studies. Thank you for allowing me to participate in your patient's care. The patient was seen and examined during dialysis this morning. Horacio Graham MD
[2016-10-22] MEDS: Multivitamin Vitamin B Complex (Nephro-Vite) Tab PO SCH (08:30)
--- NOTE | 2016-10-22 10:15 | CP.PCM.PN ---
Subjective - Date & Time of Evaluation Date of Evaluation: 10/21/16 Time of Evaluation: 13:00 - Subjective Subjective: Appears comfortable Objective - Vital Signs/Intake and Output Vital Signs (last 24 hours): Temp Pulse Resp BP Pulse Ox 98.7 F 89 20 139/76 97 10/22/16 07:47 10/22/16 07:47 10/22/16 07:47 10/22/16 07:47 10/22/16 07:47 Intake and Output: 10/22/16 10/22/16 06:59 18:59 Intake Total 450 Output Total 1 Balance 449 - Medications Medications: Current Medications Epoetin Herve (Procrit) 10,000 unit IV TTS [facility] Last Admin: 10/21/16 10:38 Dose: 10,000 unit Paricalcitol (Zemplar) 1 mcg IV TTS [facility] Last Admin: 10/21/16 10:38 Dose: 1 mcg Vitamin B Complex/Vit C/Folic Acid (Nephro-Andrea) 1 tab PO 0800 [facility] Last Admin: 10/22/16 08:30 Dose: 1 tab - Labs Labs: 10/20/16 07:04 10/20/16 07:04 PT 11.9 SECONDS (9.7-12.2) 09/20/16 06:23 INR 1.1 09/20/16 06:23 APTT 28 SECONDS (21-34) 09/20/16 06:23 - Head Exam Head Exam: ATRAUMATIC - Eye Exam Eye Exam: Normal appearance - ENT Exam ENT Exam: Mucous Membranes Dry - Respiratory Exam Respiratory Exam: NORMAL BREATHING PATTERN - Cardiovascular Exam Cardiovascular Exam: +S1, +S2 - GI/Abdominal Exam GI & Abdominal Exam: Normal Bowel Sounds Assessment and Plan (1) TTP (thrombotic thrombocytopenic purpura) Assessment & Plan: Rituximab treatment; s/p 3 doses final dose due after dialysis Status: Acute (2) Anemia Assessment & Plan: anemia of CKD EPO per renal low iron stores; Venofer with dialysis Status: Acute
--- NOTE | 2016-10-22 18:45 | CP.PCM.PN ---
Subjective - Date & Time of Evaluation Date of Evaluation: 10/22/16 Time of Evaluation: 07:00 - Subjective Subjective: clinically same Objective - Vital Signs/Intake and Output Vital Signs (last 24 hours): Temp Pulse Resp BP Pulse Ox 99.1 F 89 20 139/76 97 10/22/16 15:45 10/22/16 15:47 10/22/16 15:45 10/22/16 15:47 10/22/16 15:47 Intake and Output: 10/22/16 10/22/16 06:59 18:59 Intake Total 450 Output Total 1 Balance 449 - Medications Medications: Current Medications Epoetin Herve (Procrit) 10,000 unit IV TTS [facility] Last Admin: 10/21/16 10:38 Dose: 10,000 unit Paricalcitol (Zemplar) 1 mcg IV TTS [facility] Last Admin: 10/21/16 10:38 Dose: 1 mcg Vitamin B Complex/Vit C/Folic Acid (Nephro-Andrea) 1 tab PO 0800 [facility] Last Admin: 10/22/16 08:30 Dose: 1 tab - Labs Labs: 10/20/16 07:04 10/20/16 07:04 PT 11.9 SECONDS (9.7-12.2) 09/20/16 06:23 INR 1.1 09/20/16 06:23 APTT 28 SECONDS (21-34) 09/20/16 06:23 - Constitutional Appears: Well - Head Exam Head Exam: ATRAUMATIC, NORMAL INSPECTION, NORMOCEPHALIC - Eye Exam Eye Exam: EOMI, Normal appearance, PERRL Pupil Exam: NORMAL ACCOMODATION, PERRL - ENT Exam ENT Exam: Mucous Membranes Moist, Normal Exam - Neck Exam Neck Exam: Full ROM, Normal Inspection. absent: Lymphadenopathy - Respiratory Exam Respiratory Exam: Decreased Breath Sounds - Cardiovascular Exam Cardiovascular Exam: REGULAR RHYTHM, +S1, +S2 - GI/Abdominal Exam GI & Abdominal Exam: Soft, Diminished Bowel Sounds - Rectal Exam Rectal Exam: Deferred Assessment and Plan (1) Cardiac dysrhythmia Status: Acute (2) ESRD (end stage renal disease) on dialysis Status: Acute (3) Pulmonary edema Status: Acute (4) MARCO (acute kidney injury) Status: Acute (5) Acute respiratory failure requiring reintubation Status: Acute (6) Arthritis Status: Acute (7) CHF (congestive heart failure) Status: Acute (8) Dehydration Status: Acute (9) Dehydration Status: Acute (10) Diverticulosis Status: Acute (11) Elevated CEA Status: Acute (12) Hypertension Status: Acute (13) Inguinal lymphadenopathy Status: Acute (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
[2016-10-23 07:20] LABS: BASO % 0.3 % (0.0-2.0); EOS # 0.5 K/uL (0.0-0.7); EOS % 6.2 % (0.0-4.0); LYMPH % 11.7 % (20.0-40.0); MEAN CELL VOLUME 83.4 fL (81.0-99.0); MEAN CORPUSCULAR HEMOGLOBIN 26.8 pg (27.0-31.0); MEAN CORPUSCULAR HGB CONC 32.1 g/dL (33.0-37.0); MEAN PLATELET VOLUME 9.4 fL (7.2-11.7); MONO # 1.4 K/uL (0.0-0.8); RED CELL DISTRIBUTION WIDTH 20.8 % (11.5-14.5); WHITE BLOOD COUNT 8.7 K/uL (4.8-10.8)
[2016-10-23 07:33] LABS: BILIRUBIN,TOTAL 0.5 mg/dL (0.2-1.3); CALCIUM 9.5 mg/dl (8.6-10.4); POTASSIUM 5.5 mmol/L (3.6-5.2); TOTAL PROTEIN 6.2 g/dL (6.3-8.3)
[2016-10-23 08:14] LABS: ALB/GLOB RATIO 0.9 (1.0-2.1)
[2016-10-23] MEDS: Multivitamin Vitamin B Complex (Nephro-Vite) Tab PO SCH (08:16)
--- NOTE | 2016-10-23 08:32 | CP.PCM.PN ---
Subjective - Date & Time of Evaluation Date of Evaluation: 10/23/16 Time of Evaluation: 08:32 - Subjective Subjective: pt is seen and examined, follow up consult is dictated #[id number] for hd today Objective - Vital Signs/Intake and Output Vital Signs (last 24 hours): Temp Pulse Resp BP Pulse Ox 98.6 F 80 20 142/73 97 10/23/16 07:43 10/23/16 07:43 10/23/16 07:43 10/23/16 07:43 10/23/16 07:43 Intake and Output: 10/23/16 10/23/16 06:59 18:59 Intake Total 220 Output Total 4 Balance 216 - Medications Medications: Current Medications Epoetin Herve (Procrit) 10,000 unit IV TTS [facility] Last Admin: 10/21/16 10:38 Dose: 10,000 unit Ferric Sodium Gluconate Complex (Ferrlecit) 125 mg IVPB DAILY [facility] Stop: 10/31/16 10:01 Paricalcitol (Zemplar) 1 mcg IV TTS [facility] Last Admin: 10/21/16 10:38 Dose: 1 mcg Vitamin B Complex/Vit C/Folic Acid (Nephro-Andrea) 1 tab PO 0800 [facility] Last Admin: 10/23/16 08:16 Dose: 1 tab - Labs Labs: 10/23/16 07:05 10/23/16 07:05 PT 11.9 SECONDS (9.7-12.2) 09/20/16 06:23 INR 1.1 09/20/16 06:23 APTT 28 SECONDS (21-34) 09/20/16 06:23
[2016-10-23] MEDS: Epoetin Alfa 10,000 unit/ml Dialysis IV SCH (11:01)
[2016-10-23] MEDS: Paricalcitol 2 mcg/ml Inj IV SCH (11:02)
[2016-10-23] MEDS: Ferric Sodium Gluconat Complex 62.5 mg/5 ml Vial IVPB SCH (11:03)
--- NOTE | 2016-10-23 14:40 | RAD ---
Chest x-ray single frontal view History: PICC line placement. Comparison: 09/23/2016 Findings: Left PICC line with tip extending to the SVC. Left central venous catheter tip extending to the cavoatrial junction. Biapical pleural thickening with upper lobe granulomatous changes. Diffuse increased interstitial lung markings. Mild patchy increased markings at the left lung base. Right hilar prominence. Cardiomegaly. Calcification at the aortic knob. Degenerative changes in the spine with paravertebral osteophytes. Calcific tendinopathy of the right proximal humerus. Impression: Interval insertion of a left PICC line without evidence of postprocedure pneumothorax.
[2016-10-23] MEDS ORDERED: SODIUM CHLORIDE 0.9% IVPB ONE (16:30)
[2016-10-23] MEDS ORDERED: ONDANSETRON IVPB ONE (16:30)
[2016-10-23] MEDS ORDERED: DEXAMETHASONE IVPB ONE (16:30)
[2016-10-23] MEDS ORDERED: DiphenhydrAMINE 50 mg/ml Inj IVP ONE (17:00)
[2016-10-23] MEDS ORDERED: Acetaminophen 650mg/20.3ml solution UD PO ONE (17:00)
--- NOTE | 2016-10-23 20:04 | CP.PCM.PN ---
Subjective - Date & Time of Evaluation Date of Evaluation: 10/23/16 Time of Evaluation: 07:00 - Subjective Subjective: clinically same Objective - Vital Signs/Intake and Output Vital Signs (last 24 hours): Temp Pulse Resp BP Pulse Ox 98.6 F 99 H 18 120/81 95 10/23/16 12:20 10/23/16 12:20 10/23/16 12:20 10/23/16 12:20 10/23/16 12:20 Intake and Output: 10/23/16 10/24/16 18:59 06:59 Intake Total 300 Balance 300 - Medications Medications: Current Medications Epoetin Herve (Procrit) 10,000 unit IV TTS [facility] Last Admin: 10/23/16 11:01 Dose: 10,000 unit Ferric Sodium Gluconate Complex (Ferrlecit) 125 mg IVPB DAILY [facility] Stop: 10/31/16 10:01 Last Admin: 10/23/16 11:03 Dose: 125 mg Paricalcitol (Zemplar) 1 mcg IV TTS [facility] Last Admin: 10/23/16 11:02 Dose: 1 mcg Vitamin B Complex/Vit C/Folic Acid (Nephro-Andrea) 1 tab PO 0800 [facility] Last Admin: 10/23/16 08:16 Dose: 1 tab - Labs Labs: 10/23/16 07:05 10/23/16 07:05 PT 11.9 SECONDS (9.7-12.2) 09/20/16 06:23 INR 1.1 09/20/16 06:23 APTT 28 SECONDS (21-34) 09/20/16 06:23 - Constitutional Appears: Well - Head Exam Head Exam: ATRAUMATIC, NORMAL INSPECTION, NORMOCEPHALIC - Eye Exam Eye Exam: EOMI, Normal appearance, PERRL Pupil Exam: NORMAL ACCOMODATION, PERRL - ENT Exam ENT Exam: Mucous Membranes Moist, Normal Exam - Neck Exam Neck Exam: Full ROM, Normal Inspection. absent: Lymphadenopathy - Respiratory Exam Respiratory Exam: Decreased Breath Sounds - Cardiovascular Exam Cardiovascular Exam: REGULAR RHYTHM, +S1, +S2 - GI/Abdominal Exam GI & Abdominal Exam: Soft, Diminished Bowel Sounds - Rectal Exam Rectal Exam: Deferred Assessment and Plan (1) Cardiac dysrhythmia Status: Acute (2) ESRD (end stage renal disease) on dialysis Status: Acute (3) Pulmonary edema Status: Acute (4) MARCO (acute kidney injury) Status: Acute (5) Acute respiratory failure requiring reintubation Status: Acute (6) Arthritis Status: Acute (7) CHF (congestive heart failure) Status: Acute (8) Dehydration Status: Acute (9) Dehydration Status: Acute (10) Diverticulosis Status: Acute (11) Elevated CEA Status: Acute (12) Hypertension Status: Acute (13) Inguinal lymphadenopathy Status: Acute (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
--- NOTE | 2016-10-24 02:14 | CP.PCM.PN ---
Subjective - Date & Time of Evaluation Date of Evaluation: 10/23/16 Time of Evaluation: 17:00 - Subjective Subjective: Appears comfortable Objective - Vital Signs/Intake and Output Vital Signs (last 24 hours): Temp Pulse Resp BP Pulse Ox 99.0 F 81 20 139/66 98 10/24/16 00:00 10/24/16 00:00 10/24/16 00:00 10/24/16 00:00 10/24/16 00:00 Intake and Output: 10/23/16 10/24/16 18:59 06:59 Intake Total 300 250 Output Total 1 Balance 300 249 - Medications Medications: Current Medications Epoetin Herve (Procrit) 10,000 unit IV TTS [facility] Last Admin: 10/23/16 11:01 Dose: 10,000 unit Ferric Sodium Gluconate Complex (Ferrlecit) 125 mg IVPB DAILY [facility] Stop: 10/31/16 10:01 Last Admin: 10/23/16 11:03 Dose: 125 mg Paricalcitol (Zemplar) 1 mcg IV TTS [facility] Last Admin: 10/23/16 11:02 Dose: 1 mcg Vitamin B Complex/Vit C/Folic Acid (Nephro-Andrea) 1 tab PO 0800 [facility] Last Admin: 10/23/16 08:16 Dose: 1 tab - Labs Labs: 10/23/16 07:05 10/23/16 07:05 PT 11.9 SECONDS (9.7-12.2) 09/20/16 06:23 INR 1.1 09/20/16 06:23 APTT 28 SECONDS (21-34) 09/20/16 06:23 - Head Exam Head Exam: ATRAUMATIC - Eye Exam Eye Exam: Normal appearance - ENT Exam ENT Exam: Mucous Membranes Dry - Respiratory Exam Respiratory Exam: NORMAL BREATHING PATTERN - Cardiovascular Exam Cardiovascular Exam: +S1, +S2 - GI/Abdominal Exam GI & Abdominal Exam: Normal Bowel Sounds Assessment and Plan (1) TTP (thrombotic thrombocytopenic purpura) Assessment & Plan: for final rituximab today platelet count normalized Status: Acute (2) Anemia Assessment & Plan: anemia of CKD and chronic disease Status: Acute
--- NOTE | 2016-10-24 03:26 | PN ---
DATE: FOLLOWUP RENAL CONSULTATION LOCATION: The patient is located in room 354, bed A. REQUESTED BY: Kavon Ureña MD REASON FOR FOLLOWUP: Endstage renal disease for continuation of hemodialysis. SUBJECTIVE: Ms. Denise Garcia is an 80-year-old elderly female with a history of hypertension, rheumatoid arthritis, thrombocytopenia, cardiomyopathy, CHF, status post extubation x2, relapsing thrombocytopenia and TTP, status post plasmapheresis x3 sessions and started on rituximab. The patient is scheduled to receive fourth dose of rituximab today. The patient is not acute distress. No complaints. No chest pain or palpitations. No fever. No cough. PHYSICAL EXAMINATION: GENERAL: Ms. Denise Garcia is an 80-year-old elderly female, moderately built, moderately nourished, not in acute distress. VITAL SIGNS: This morning as follows: Blood pressure 130/82, pulse 99, respirations 18, temperature 98.6, and saturation 95%. HEENT: Pupils normal, reactive to light and accommodation. Conjunctivae pink. Sclerae anicteric. Tongue is moist. Trachea is midline. LUNGS: Symmetric on both sides. Bilateral breath sounds present and clear on auscultation. CARDIOVASCULAR SYSTEM: [place] at the fifth intercostal space, midclavicular line. S1 and S2 audible. No murmur or gallop. ABDOMEN: Normal in appearance. Soft, tympanic. No guarding. No rigidity. No hepatosplenomegaly. CENTRAL NERVOUS SYSTEM: The patient is alert, awake, and oriented x2. Sensory and motor system is within normal limits. Cranial nerves II through XII grossly intact. EXTREMITIES: No cyanosis, no clubbing, no edema. MEDICATIONS: Include Ferrlecit 125 mg IV daily, Nephro-Andrea one tablet daily, Procrit 10,000 units 3 times a week, and Zemplar 1 mcg IV 3 times a week. LABORATORY DATA: As of 10/23/2016; WBC 8.7, hemoglobin 8.4, hematocrit is 26, and platelets 171. Sodium 135, potassium 5.5, chloride 98, CO2 of 26, BUN 40, creatinine 6.1, glucose 81, calcium 9.5, total bilirubin 0.5. AST 31, ALT 45, alkaline phosphatase 197, total protein 6.2, and albumin is 3.0. ASSESSMENT AND PLAN: In summary, Ms. Denise Garcia is an 80-year-old elderly female with hypertension, rheumatoid arthritis, cardiomyopathy, thrombocytopenia, thrombotic thrombocytopenic purpura, renal failure on hemodialysis 3 times a week for the last 3 months: 1. Renal failure most likely end-stage renal disease secondary to thrombotic thrombocytopenic purpura, cannot rule out thrombotic microangiopathy. 2. Hypertension. Blood pressure is stable. 3. Cardiomyopathy. 4. Thrombotic thrombocytopenic purpura. Platelets are stable at this time and continue with rituximab as per Hematology recommendation. The patient is scheduled for hemodialysis this morning. The patient will need outpatient hemodialysis center placement again and we will repeat the hepatitis B and C serology titers again. We will follow with you. Thank you for allowing me to participate in your the patient's care. Horacio Graham MD
--- NOTE | 2016-10-24 09:00 | CP.PCM.PN ---
Subjective - Date & Time of Evaluation Date of Evaluation: 10/24/16 Time of Evaluation: 09:00 - Subjective Subjective: pt is seen and examined, follow up consult is dictated #[id number] hd in am Objective - Vital Signs/Intake and Output Vital Signs (last 24 hours): Temp Pulse Resp BP Pulse Ox 98.7 F 73 20 146/84 96 10/24/16 08:00 10/24/16 08:00 10/24/16 08:00 10/24/16 08:00 10/24/16 08:00 Intake and Output: 10/24/16 10/24/16 06:59 18:59 Intake Total 350 Output Total 1 Balance 349 - Medications Medications: Current Medications Epoetin Herve (Procrit) 10,000 unit IV TTS [facility] Last Admin: 10/23/16 11:01 Dose: 10,000 unit Ferric Sodium Gluconate Complex (Ferrlecit) 125 mg IVPB DAILY [facility] Stop: 10/31/16 10:01 Last Admin: 10/23/16 11:03 Dose: 125 mg Paricalcitol (Zemplar) 1 mcg IV TTS [facility] Last Admin: 10/23/16 11:02 Dose: 1 mcg Vitamin B Complex/Vit C/Folic Acid (Nephro-Andrea) 1 tab PO 0800 [facility] Last Admin: 10/23/16 08:16 Dose: 1 tab - Labs Labs: 10/23/16 07:05 10/23/16 07:05 PT 11.9 SECONDS (9.7-12.2) 09/20/16 06:23 INR 1.1 09/20/16 06:23 APTT 28 SECONDS (21-34) 09/20/16 06:23
[2016-10-24] MEDS: Ferric Sodium Gluconat Complex 62.5 mg/5 ml Vial IVPB SCH (11:21)
[2016-10-24] MEDS: Multivitamin Vitamin B Complex (Nephro-Vite) Tab PO SCH (11:21)
--- NOTE | 2016-10-24 18:21 | CP.PCM.PN ---
Subjective - Date & Time of Evaluation Date of Evaluation: 10/24/16 Time of Evaluation: 07:00 - Subjective Subjective: clinically same Objective - Vital Signs/Intake and Output Vital Signs (last 24 hours): Temp Pulse Resp BP Pulse Ox 98.7 F 93 H 20 138/68 98 10/24/16 16:00 10/24/16 16:00 10/24/16 16:00 10/24/16 16:00 10/24/16 16:00 Intake and Output: 10/24/16 10/24/16 06:59 18:59 Intake Total 350 220 Output Total 1 1 Balance 349 219 - Medications Medications: Current Medications Epoetin Herve (Procrit) 10,000 unit IV TTS [facility] Last Admin: 10/23/16 11:01 Dose: 10,000 unit Ferric Sodium Gluconate Complex (Ferrlecit) 125 mg IVPB DAILY [facility] Stop: 10/31/16 10:01 Last Admin: 10/24/16 11:21 Dose: 125 mg Paricalcitol (Zemplar) 1 mcg IV TTS [facility] Last Admin: 10/23/16 11:02 Dose: 1 mcg Vitamin B Complex/Vit C/Folic Acid (Nephro-Andrea) 1 tab PO 0800 [facility] Last Admin: 10/24/16 11:21 Dose: 1 tab - Labs Labs: 10/23/16 07:05 10/23/16 07:05 PT 11.9 SECONDS (9.7-12.2) 09/20/16 06:23 INR 1.1 09/20/16 06:23 APTT 28 SECONDS (21-34) 09/20/16 06:23 - Constitutional Appears: Well - Head Exam Head Exam: ATRAUMATIC, NORMAL INSPECTION, NORMOCEPHALIC - Eye Exam Eye Exam: EOMI, Normal appearance, PERRL Pupil Exam: NORMAL ACCOMODATION, PERRL - ENT Exam ENT Exam: Mucous Membranes Moist, Normal Exam - Neck Exam Neck Exam: Full ROM, Normal Inspection. absent: Lymphadenopathy - Respiratory Exam Respiratory Exam: Decreased Breath Sounds - Cardiovascular Exam Cardiovascular Exam: REGULAR RHYTHM, +S1, +S2 - GI/Abdominal Exam GI & Abdominal Exam: Soft, Diminished Bowel Sounds - Rectal Exam Rectal Exam: Deferred Assessment and Plan (1) Cardiac dysrhythmia Status: Acute (2) ESRD (end stage renal disease) on dialysis Status: Acute (3) Pulmonary edema Status: Acute (4) MARCO (acute kidney injury) Status: Acute (5) Acute respiratory failure requiring reintubation Status: Acute (6) Arthritis Status: Acute (7) CHF (congestive heart failure) Status: Acute (8) Dehydration Status: Acute (9) Dehydration Status: Acute (10) Diverticulosis Status: Acute (11) Elevated CEA Status: Acute (12) Hypertension Status: Acute (13) Inguinal lymphadenopathy Status: Acute (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
--- NOTE | 2016-10-25 01:52 | PN ---
DATE: FOLLOWUP RENAL CONSULTATION LOCATION: The patient is located in room 354, bed A. REQUESTED BY: Kavon Ureña MD REASON FOR FOLLOWUP: Endstage renal disease, continuation of hemodialysis. SUBJECTIVE: Ms. Denise Garcia is an 81-year-old elderly female with a past medical history significant for longstanding hypertension, rheumatoid arthritis, cardiomyopathy, thrombocytopenia, TTP, renal failure on hemodialysis three times a week Thursday, , Thursday. The patient is feeling better, not in acute distress. Denies any complaints. No chest pain or palpitations. The patient's family at bedside. No shortness of breath. PHYSICAL EXAMINATION: VITAL SIGNS: This morning as follows: Blood pressure 146/84, pulse 73, respirations 20, temperature 98.7, and saturation 96%. Height 5 feet 2 inches and weight is 120 pounds. GENERAL: Ms. Denise Garcia is an 81-year-old elderly female, moderately built, moderately nourished, not in acute distress. HEENT: Pupils normal, reactive to light and accommodation. Conjunctivae pink. Sclerae anicteric. Tongue is moist. Trachea is midline. LUNGS: Symmetric on both sides. Bilateral breath sounds present and clear on auscultation. CARDIOVASCULAR SYSTEM: [place] at the sixth intercostal space, midclavicular line. S1 and S2 audible. No murmur or gallop. ABDOMEN: Normal in appearance. Soft, tympanic. No guarding. No rigidity. No hepatosplenomegaly. CENTRAL NERVOUS SYSTEM: The patient is alert, awake, and oriented x2. Sensory and motor system is grossly within normal limits. EXTREMITIES: No cyanosis, no clubbing, no edema. CURRENT MEDICATIONS: Include Ferrlecit 125 mg IV piggy bag daily, Nephro-Andrea one tablet daily, Procrit 10,000 units three times a week, and Zemplar 1 mcg three times a week. LABORATORY DATA: No new labs are available for today. As of 10/23/2016; H&H 8.4/26, platelets 171, and potassium 5.5, BUN and creatinine 40/5.1, calcium 9.5. Hepatitis B surface antigen is negative. Core antibody is negative and hepatitis C antibody is negative. ASSESSMENT AND PLAN: In summary, Ms. Denise Garcia is an 81 years elderly female with hypertension, cardiomyopathy, rheumatoid arthritis, thrombocytopenia, renal failure on hemodialysis: 1. Renal failure most likely secondary to end-stage renal disease secondary to thrombotic thrombocytopenic purpura, and cannot rule out thrombotic microangiopathy. 2. Cardiomyopathy. 3. Anemia secondary to renal failure and thrombotic thrombocytopenic purpura. 4. Thrombotic thrombocytopenic purpura. Continue rituximab daily weekly as per Dr. Montanez. We will continue hemodialysis three times a week Thursday, , and Thursday. Continue Procrit. Continue IV iron. 5. Anemia secondary to the renal failure and thrombotic thrombocytopenic purpura. We will follow with you. Thank you for allowing me to participate in your the patient's care. We will check hepatitis B surface antibody. Horacio Graham MD
[2016-10-25] MEDS: Multivitamin Vitamin B Complex (Nephro-Vite) Tab PO SCH (08:21)
[2016-10-25] MEDS: Ferric Sodium Gluconat Complex 62.5 mg/5 ml Vial IVPB SCH (12:24)
[2016-10-25] MEDS: Epoetin Alfa 10,000 unit/ml Dialysis IV SCH (12:24)
[2016-10-25] MEDS: Paricalcitol 2 mcg/ml Inj IV SCH (12:25)
--- NOTE | 2016-10-25 15:22 | CP.PCM.PN ---
Subjective - Date & Time of Evaluation Date of Evaluation: 10/25/16 Time of Evaluation: 07:00 - Subjective Subjective: clinically same Objective - Vital Signs/Intake and Output Vital Signs (last 24 hours): Temp Pulse Resp BP Pulse Ox 98 F 78 16 95/65 L 96 10/25/16 13:00 10/25/16 13:00 10/25/16 13:00 10/25/16 13:00 10/25/16 13:00 Intake and Output: 10/25/16 10/25/16 06:59 18:59 Intake Total 150 Output Total 1 Balance 149 - Medications Medications: Current Medications Epoetin Herve (Procrit) 10,000 unit IV TTS [facility] Last Admin: 10/25/16 12:24 Dose: 10,000 unit Ferric Sodium Gluconate Complex (Ferrlecit) 125 mg IVPB DAILY [facility] Stop: 10/31/16 10:01 Last Admin: 10/25/16 12:24 Dose: 125 mg Paricalcitol (Zemplar) 1 mcg IV TTS [facility] Last Admin: 10/25/16 12:25 Dose: 1 mcg Vitamin B Complex/Vit C/Folic Acid (Nephro-Andrea) 1 tab PO 0800 [facility] Last Admin: 10/25/16 08:21 Dose: 1 tab - Labs Labs: 10/23/16 07:05 10/23/16 07:05 PT 11.9 SECONDS (9.7-12.2) 09/20/16 06:23 INR 1.1 09/20/16 06:23 APTT 28 SECONDS (21-34) 09/20/16 06:23 - Constitutional Appears: Well - Head Exam Head Exam: ATRAUMATIC, NORMAL INSPECTION, NORMOCEPHALIC - Eye Exam Eye Exam: EOMI, Normal appearance, PERRL Pupil Exam: NORMAL ACCOMODATION, PERRL - ENT Exam ENT Exam: Mucous Membranes Moist, Normal Exam - Neck Exam Neck Exam: Full ROM, Normal Inspection. absent: Lymphadenopathy - Respiratory Exam Respiratory Exam: Decreased Breath Sounds - Cardiovascular Exam Cardiovascular Exam: REGULAR RHYTHM, +S1, +S2 - GI/Abdominal Exam GI & Abdominal Exam: Soft, Diminished Bowel Sounds - Rectal Exam Rectal Exam: Deferred Assessment and Plan (1) Cardiac dysrhythmia Status: Acute (2) ESRD (end stage renal disease) on dialysis Status: Acute (3) Pulmonary edema Status: Acute (4) MARCO (acute kidney injury) Status: Acute (5) Acute respiratory failure requiring reintubation Status: Acute (6) Arthritis Status: Acute (7) CHF (congestive heart failure) Status: Acute (8) Dehydration Status: Acute (9) Dehydration Status: Acute (10) Diverticulosis Status: Acute (11) Elevated CEA Status: Acute (12) Hypertension Status: Acute (13) Inguinal lymphadenopathy Status: Acute (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
--- NOTE | 2016-10-25 16:04 | CP.PCM.PN ---
Subjective - Date & Time of Evaluation Date of Evaluation: 10/25/16 Time of Evaluation: 16:04 - Subjective Subjective: pt is seen and examined, follow up consult is dictated #[id number] stable hd tx Objective - Vital Signs/Intake and Output Vital Signs (last 24 hours): Temp Pulse Resp BP Pulse Ox 98 F 78 16 95/65 L 96 10/25/16 13:00 10/25/16 13:00 10/25/16 13:00 10/25/16 13:00 10/25/16 13:00 Intake and Output: 10/25/16 10/25/16 06:59 18:59 Intake Total 150 Output Total 1 Balance 149 - Medications Medications: Current Medications Epoetin Herve (Procrit) 10,000 unit IV TTS [facility] Last Admin: 10/25/16 12:24 Dose: 10,000 unit Ferric Sodium Gluconate Complex (Ferrlecit) 125 mg IVPB DAILY [facility] Stop: 10/31/16 10:01 Last Admin: 10/25/16 12:24 Dose: 125 mg Paricalcitol (Zemplar) 1 mcg IV TTS [facility] Last Admin: 10/25/16 12:25 Dose: 1 mcg Vitamin B Complex/Vit C/Folic Acid (Nephro-Andrea) 1 tab PO 0800 [facility] Last Admin: 10/25/16 08:21 Dose: 1 tab - Labs Labs: 10/23/16 07:05 10/23/16 07:05 PT 11.9 SECONDS (9.7-12.2) 09/20/16 06:23 INR 1.1 09/20/16 06:23 APTT 28 SECONDS (21-34) 09/20/16 06:23
[2016-10-26] MEDS: Multivitamin Vitamin B Complex (Nephro-Vite) Tab PO SCH (08:39)
[2016-10-26] MEDS: Ferric Sodium Gluconat Complex 62.5 mg/5 ml Vial IVPB SCH (10:49)
--- NOTE | 2016-10-26 14:56 | CP.PCM.PN ---
Subjective - Date & Time of Evaluation Date of Evaluation: 10/26/16 Time of Evaluation: 09:00 - Subjective Subjective: seen on rounds awake alert nad Objective - Vital Signs/Intake and Output Vital Signs (last 24 hours): Temp Pulse Resp BP Pulse Ox 98.0 F 80 20 138/71 96 10/26/16 08:03 10/26/16 08:03 10/26/16 08:03 10/26/16 08:03 10/26/16 08:03 Intake and Output: 10/26/16 10/26/16 06:59 18:59 Intake Total 350 Balance 350 - Medications Medications: Current Medications Epoetin Herve (Procrit) 10,000 unit IV TTS [facility] Last Admin: 10/25/16 12:24 Dose: 10,000 unit Ferric Sodium Gluconate Complex (Ferrlecit) 125 mg IVPB DAILY [facility] Stop: 10/31/16 10:01 Last Admin: 10/26/16 10:49 Dose: 125 mg - Labs Labs: 10/23/16 07:05 10/23/16 07:05 PT 11.9 SECONDS (9.7-12.2) 09/20/16 06:23 INR 1.1 09/20/16 06:23 APTT 28 SECONDS (21-34) 09/20/16 06:23 - Constitutional Appears: Non-toxic, Chronically Ill - Head Exam Head Exam: NORMOCEPHALIC - Eye Exam Eye Exam: PERRL - ENT Exam ENT Exam: Mucous Membranes Dry, Normal External Ear Exam - Neck Exam Neck Exam: absent: Lymphadenopathy - Respiratory Exam Respiratory Exam: Decreased Breath Sounds, Clear to Ausculation Bilateral - Cardiovascular Exam Cardiovascular Exam: REGULAR RHYTHM - GI/Abdominal Exam GI & Abdominal Exam: Distended, Soft - Rectal Exam Rectal Exam: Deferred - Exam Exam: NORMAL INSPECTION - Extremities Exam Extremities Exam: absent: Calf Tenderness, Pedal Edema - Back Exam Back Exam: absent: CVA tenderness (L), CVA tenderness (R) - Neurological Exam Neurological Exam: Alert, Awake, Oriented x3 Assessment and Plan (1) Cardiac dysrhythmia Status: Acute (2) ESRD (end stage renal disease) on dialysis Status: Acute (3) Pulmonary edema Status: Acute (4) Acute respiratory failure requiring reintubation Status: Acute (5) Arthritis Status: Acute (6) CHF (congestive heart failure) Status: Acute (7) Dehydration Status: Acute (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
--- NOTE | 2016-10-26 18:53 | CP.PCM.PN ---
Subjective - Date & Time of Evaluation Date of Evaluation: 10/26/16 Time of Evaluation: 18:52 - Subjective Subjective: pt is seen and examined,follow up consult is dictated Objective - Vital Signs/Intake and Output Vital Signs (last 24 hours): Temp Pulse Resp BP Pulse Ox 99 F 94 H 20 117/70 95 10/26/16 15:05 10/26/16 15:05 10/26/16 15:05 10/26/16 15:05 10/26/16 15:05 Intake and Output: 10/26/16 10/26/16 06:59 18:59 Intake Total 350 Balance 350 - Medications Medications: Current Medications Epoetin Herve (Procrit) 10,000 unit IV TTS [facility] Last Admin: 10/25/16 12:24 Dose: 10,000 unit Ferric Sodium Gluconate Complex (Ferrlecit) 125 mg IVPB DAILY [facility] Stop: 10/31/16 10:01 Last Admin: 10/26/16 10:49 Dose: 125 mg - Labs Labs: 10/23/16 07:05 10/23/16 07:05 PT 11.9 SECONDS (9.7-12.2) 09/20/16 06:23 INR 1.1 09/20/16 06:23 APTT 28 SECONDS (21-34) 09/20/16 06:23
--- NOTE | 2016-10-26 19:39 | CP.PCM.PN ---
Subjective - Date & Time of Evaluation Date of Evaluation: 10/26/16 Time of Evaluation: 08:00 - Subjective Subjective: clinically same Objective - Vital Signs/Intake and Output Vital Signs (last 24 hours): Temp Pulse Resp BP Pulse Ox 99 F 94 H 20 117/70 95 10/26/16 15:05 10/26/16 15:05 10/26/16 15:05 10/26/16 15:05 10/26/16 15:05 - Medications Medications: Current Medications Epoetin Herve (Procrit) 10,000 unit IV TTS [facility] Last Admin: 10/25/16 12:24 Dose: 10,000 unit Ferric Sodium Gluconate Complex (Ferrlecit) 125 mg IVPB DAILY [facility] Stop: 10/31/16 10:01 Last Admin: 10/26/16 10:49 Dose: 125 mg - Labs Labs: 10/23/16 07:05 10/23/16 07:05 PT 11.9 SECONDS (9.7-12.2) 09/20/16 06:23 INR 1.1 09/20/16 06:23 APTT 28 SECONDS (21-34) 09/20/16 06:23 - Constitutional Appears: Well - Head Exam Head Exam: ATRAUMATIC, NORMAL INSPECTION, NORMOCEPHALIC - Eye Exam Eye Exam: EOMI, Normal appearance, PERRL - ENT Exam ENT Exam: Mucous Membranes Moist, Normal Exam - Neck Exam Neck Exam: Full ROM, Normal Inspection. absent: Lymphadenopathy - Respiratory Exam Respiratory Exam: Decreased Breath Sounds - Cardiovascular Exam Cardiovascular Exam: REGULAR RHYTHM, +S1, +S2. absent: Murmur - GI/Abdominal Exam GI & Abdominal Exam: Diminished Bowel Sounds - Rectal Exam Rectal Exam: Deferred Assessment and Plan (1) Cardiac dysrhythmia Status: Acute (2) ESRD (end stage renal disease) on dialysis Status: Acute (3) Pulmonary edema Status: Acute (4) MARCO (acute kidney injury) Status: Acute (5) Acute respiratory failure requiring reintubation Status: Acute (6) Arthritis Status: Acute (7) CHF (congestive heart failure) Status: Acute (8) Dehydration Status: Acute (9) Dehydration Status: Acute (10) Diverticulosis Status: Acute (11) Elevated CEA Status: Acute (12) Hypertension Status: Acute (13) Inguinal lymphadenopathy Status: Acute (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
--- NOTE | 2016-10-27 00:45 | CP.PCM.PN ---
Subjective - Date & Time of Evaluation Date of Evaluation: 10/24/16 Time of Evaluation: 13:00 - Subjective Subjective: Appears comfortable Objective - Vital Signs/Intake and Output Vital Signs (last 24 hours): Temp Pulse Resp BP Pulse Ox 99 F 94 H 20 117/70 95 10/26/16 15:05 10/26/16 15:05 10/26/16 15:05 10/26/16 15:05 10/26/16 15:05 Intake and Output: 10/26/16 10/27/16 18:59 06:59 Intake Total 250 Balance 250 - Medications Medications: Current Medications Epoetin Herve (Procrit) 10,000 unit IV TTS [facility] Last Admin: 10/25/16 12:24 Dose: 10,000 unit Ferric Sodium Gluconate Complex (Ferrlecit) 125 mg IVPB DAILY [facility] Stop: 10/31/16 10:01 Last Admin: 10/26/16 10:49 Dose: 125 mg - Labs Labs: 10/23/16 07:05 10/23/16 07:05 PT 11.9 SECONDS (9.7-12.2) 09/20/16 06:23 INR 1.1 09/20/16 06:23 APTT 28 SECONDS (21-34) 09/20/16 06:23 - Head Exam Head Exam: ATRAUMATIC - Eye Exam Eye Exam: Normal appearance - ENT Exam ENT Exam: Mucous Membranes Dry - Respiratory Exam Respiratory Exam: NORMAL BREATHING PATTERN - Cardiovascular Exam Cardiovascular Exam: +S1, +S2 - GI/Abdominal Exam GI & Abdominal Exam: Normal Bowel Sounds Assessment and Plan (1) TTP (thrombotic thrombocytopenic purpura) Assessment & Plan: s/p plasmapheresis a 4 doses of Rituximab Plt count normal Status: Acute (2) Anemia Status: Acute
--- NOTE | 2016-10-27 00:46 | CP.PCM.PN ---
Subjective - Date & Time of Evaluation Date of Evaluation: 10/25/16 Time of Evaluation: 17:00 - Subjective Subjective: Appears comfortable Objective - Vital Signs/Intake and Output Vital Signs (last 24 hours): Temp Pulse Resp BP Pulse Ox 99 F 94 H 20 117/70 95 10/26/16 15:05 10/26/16 15:05 10/26/16 15:05 10/26/16 15:05 10/26/16 15:05 Intake and Output: 10/26/16 10/27/16 18:59 06:59 Intake Total 250 Balance 250 - Medications Medications: Current Medications Epoetin Herve (Procrit) 10,000 unit IV TTS [facility] Last Admin: 10/25/16 12:24 Dose: 10,000 unit Ferric Sodium Gluconate Complex (Ferrlecit) 125 mg IVPB DAILY [facility] Stop: 10/31/16 10:01 Last Admin: 10/26/16 10:49 Dose: 125 mg - Labs Labs: 10/23/16 07:05 10/23/16 07:05 PT 11.9 SECONDS (9.7-12.2) 09/20/16 06:23 INR 1.1 09/20/16 06:23 APTT 28 SECONDS (21-34) 09/20/16 06:23 - Head Exam Head Exam: ATRAUMATIC - Eye Exam Eye Exam: Normal appearance - ENT Exam ENT Exam: Mucous Membranes Dry - Respiratory Exam Respiratory Exam: NORMAL BREATHING PATTERN - Cardiovascular Exam Cardiovascular Exam: +S1, +S2 - GI/Abdominal Exam GI & Abdominal Exam: Normal Bowel Sounds Assessment and Plan (1) TTP (thrombotic thrombocytopenic purpura) Assessment & Plan: s/p plasmapheresis s/p 4 dose of Rituximab plt count normal Status: Acute (2) Anemia Status: Acute
--- NOTE | 2016-10-27 07:24 | PN ---
DATE: FOLLOWUP RENAL CONSULTATION LOCATION: The patient is located in room 354, bed A. REQUESTING PHYSICIAN: Kavon Ureña MD REASON FOR FOLLOWUP: End-stage renal disease for continuation of hemodialysis. SUBJECTIVE: Ms. Denise Garcia is an 80-year-old elderly female with a history of longstanding hypertension, rheumatoid arthritis, cardiomyopathy, respiratory failure status post intubation x2, CHF, thrombocytopenia, TTP, status post plasmapheresis x3 sessions with relapsing TTP, started on rituximab. The patient is not in acute distress. The patient is less responsive to verbal stimuli today. The patient's family at bedside. No shortness of breath. Resting comfortably. OBJECTIVE: VITAL SIGNS: Blood pressure of 117/70, pulse of 94, respirations of 20, temperature of 99, and oxygen saturation of 95%. Height is 5 feet 2 inches and weight is 120 pounds. GENERAL: Ms. Denise Garcia is an 80-year-old elderly female, moderately built and moderately nourished, not in acute distress. HEENT: Pupils are normally reactive to light and accommodation. Conjunctivae are pink. Sclerae are anicteric. Tongue is moist. Trachea is midline. LUNGS: Symmetric on both sides. Bilateral breath sounds present and clear on auscultation. CARDIOVASCULAR SYSTEM: [place] at the sixth intercostal space, midclavicular line. S1 and S2 audible. No murmur or gallop. ABDOMEN: Normal in appearance. Soft and tympanic. No guarding. No rigidity. No hepatosplenomegaly. CENTRAL NERVOUS SYSTEM: The patient is awake and oriented x1-2. Sensory and motor system is grossly within normal limits. EXTREMITIES: No cyanosis, no clubbing, and no edema. CURRENT MEDICATIONS: Include as follows: ferric gluconate 125 mg IV piggyback daily and Epogen 10,000 units 3 times a week. LABORATORY DATA: No new labs are available for today. ASSESSMENT AND PLAN: In summary, Ms. Denise Garcia is an 80-year-old elderly female with a history of longstanding hypertension; cardiomyopathy; congestive heart failure; respiratory failure, status post intubation and extubation x2; relapsing thrombotic thrombocytopenic purpura, status post plasmapheresis x3 sessions and on rituximab weekly; and end-stage renal disease on hemodialysis 3 times a week. 1. 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 2. Cardiomyopathy. 3. Anemia secondary to renal failure. 4. Electrolyte abnormality, hyperkalemia secondary to renal failure. 5. Thrombocytopenia. Platelets are improving since the patient was placed on rituximab. Continue to follow up with lead ramp service man, Dr. Montanez for further management and continue hemodialysis 3 times a week; Thursday, , and Thursday and follow with social service for outpatient hemodialysis unit placement. We will check hepatitis B surface antibody with a next blood draw in a.m. Repeat CBC and BMP in a.m. Thank you for allowing me to participate in your patient's care. Horacio Graham MD
--- NOTE | 2016-10-27 09:54 | CON ---
FOLLOWUP RENAL CONSULTATION LOCATION: The patient is located in room #354, bed #A. REQUESTED BY: Dr. Kavon Ureña. REASON FOR FOLLOWUP: End-stage renal disease, for continuation of the hemodialysis. HISTORY OF PRESENT ILLNESS: The patient is an 81-year-old elderly female with a history hypertension; rheumatoid arthritis; cardiomyopathy; CHF; status post respiratory failure, intubation x2; thrombocytopenia, TTP, status post plasmapheresis x3 sessions with relapsing TTP requiring initiation of the rituximab q. weekly and renal failure, on hemodialysis 3 times a week. The patient underwent hemodialysis today without any complications and had an ultrafiltration about 1.5 L. The patient was hemodynamically stable post dialysis. The patient is resting comfortably, no complaints. PHYSICAL EXAMINATION: VITAL SIGNS: Blood pressure 124/61, pulse 81, respirations 20, temperature 98.5 and saturation 98%. Height 5 feet 2 inches and weight is 120 pounds. GENERAL: The patient is an 81-year-old elderly female, moderately built, moderately nourished, not in acute distress. HEENT: Pupils are normal, reactive to light and accommodation. Conjunctivae pink. Sclerae anicteric. Tongue is moist. Trachea is midline. LUNGS: Symmetric on both sides. Bilateral breath sounds present. Clear on auscultation. CARDIOVASCULAR SYSTEM: [place] at the sixth intercostal space, midclavicular line. S1 and S2 audible. No murmur. No gallop. ABDOMEN: Normal in appearance. Soft and tympanic. No guarding. No rigidity. No hepatosplenomegaly. CENTRAL NERVOUS SYSTEM: The patient is alert, awake, and oriented x1 to x2, which is at baseline. Sensory and motor system is grossly within normal limits. The patient is bedridden for the last 3 months. EXTREMITIES: No cyanosis. No clubbing. No edema. MEDICATIONS: Her current medications include as follows: Ferrlecit 125 mg daily; Nephro-Andrea 1 tablet daily; Procrit 10,000 units 3 times a week; Zemplar 1 mcg three times a week. LABORATORY DATA: No new labs are available for today, and as of 10/24/2016, hepatitis B surface antigen negative, core antibody negative, hep C antibody negative. As of 09/13/2016, hepatitis B surface antibody was positive. ASSESSMENT: In summary, the patient is an 81-year-old elderly female with a history of hypertension, rheumatoid arthritis, cardiomyopathy, congestive heart failure, renal failure, thrombocytopenia, anemia, on hemodialysis 3 times a week. 1. Renal failure, most likely secondary to end-stage renal disease, on hemodialysis for the last 3 months without any improvement in the renal function, most likely secondary to thrombotic thrombocytopenic purpura, cannot rule out secondary to thrombotic microangiopathy secondary to thrombotic thrombocytopenic purpura. 2. Hypertension. Blood pressure is stable. 3. Anemia secondary to renal failure. H and H is stable. 4. Thrombocytopenia. Platelets are stable. Continue rituximab as per historiography professor, Dr. Montanez. The patient is stable from the renal standpoint and consider discharge to home or subacute rehab placement. We will repeat hepatitis B surface antibody again. We will follow with you. Thank you for allowing me to participate in your patient's care. Horacio Graham MD
[2016-10-27] MEDS: Ferric Sodium Gluconat Complex 62.5 mg/5 ml Vial IVPB SCH (11:40)
--- NOTE | 2016-10-27 17:14 | CP.PCM.PN ---
Subjective - Date & Time of Evaluation Date of Evaluation: 10/27/16 Time of Evaluation: 07:00 - Subjective Subjective: clinically same Objective - Vital Signs/Intake and Output Vital Signs (last 24 hours): Temp Pulse Resp BP Pulse Ox 97 F L 82 19 142/78 97 10/27/16 09:05 10/27/16 09:05 10/27/16 09:05 10/27/16 09:05 10/27/16 09:05 Intake and Output: 10/27/16 10/27/16 06:59 18:59 Intake Total 250 Balance 250 - Medications Medications: Current Medications Epoetin Herve (Procrit) 10,000 unit IV TTS [facility] Last Admin: 10/25/16 12:24 Dose: 10,000 unit Ferric Sodium Gluconate Complex (Ferrlecit) 125 mg IVPB DAILY [facility] Stop: 10/31/16 10:01 Last Admin: 10/27/16 11:40 Dose: 125 mg - Labs Labs: 10/23/16 07:05 10/23/16 07:05 PT 11.9 SECONDS (9.7-12.2) 09/20/16 06:23 INR 1.1 09/20/16 06:23 APTT 28 SECONDS (21-34) 09/20/16 06:23 - Constitutional Appears: Well - Head Exam Head Exam: ATRAUMATIC, NORMAL INSPECTION, NORMOCEPHALIC - Eye Exam Eye Exam: EOMI, Normal appearance, PERRL Pupil Exam: NORMAL ACCOMODATION, PERRL - ENT Exam ENT Exam: Mucous Membranes Moist, Normal Exam - Neck Exam Neck Exam: Full ROM, Normal Inspection. absent: Lymphadenopathy - Respiratory Exam Respiratory Exam: Decreased Breath Sounds - Cardiovascular Exam Cardiovascular Exam: REGULAR RHYTHM, +S1, +S2 - GI/Abdominal Exam GI & Abdominal Exam: Soft, Diminished Bowel Sounds - Rectal Exam Rectal Exam: Deferred Assessment and Plan (1) Cardiac dysrhythmia Status: Acute (2) ESRD (end stage renal disease) on dialysis Status: Acute (3) Pulmonary edema Status: Acute (4) MARCO (acute kidney injury) Status: Acute (5) Acute respiratory failure requiring reintubation Status: Acute (6) Arthritis Status: Acute (7) CHF (congestive heart failure) Status: Acute (8) Dehydration Status: Acute (9) Dehydration Status: Acute (10) Diverticulosis Status: Acute (11) Elevated CEA Status: Acute (12) Hypertension Status: Acute (13) Inguinal lymphadenopathy Status: Acute (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
--- NOTE | 2016-10-27 18:54 | CP.PCM.PN ---
Subjective - Date & Time of Evaluation Date of Evaluation: 10/27/16 Time of Evaluation: 18:54 - Subjective Subjective: pt is seen and examined, follow up consult is dictated #[id number] Objective - Vital Signs/Intake and Output Vital Signs (last 24 hours): Temp Pulse Resp BP Pulse Ox 99.2 F 84 20 151/71 H 94 L 10/27/16 15:30 10/27/16 15:30 10/27/16 15:30 10/27/16 15:30 10/27/16 15:30 Intake and Output: 10/27/16 10/27/16 06:59 18:59 Intake Total 250 Balance 250 - Medications Medications: Current Medications Epoetin Herve (Procrit) 10,000 unit IV TTS [facility] Last Admin: 10/25/16 12:24 Dose: 10,000 unit Ferric Sodium Gluconate Complex (Ferrlecit) 125 mg IVPB DAILY [facility] Stop: 10/31/16 10:01 Last Admin: 10/27/16 11:40 Dose: 125 mg - Labs Labs: 10/23/16 07:05 10/23/16 07:05 PT 11.9 SECONDS (9.7-12.2) 09/20/16 06:23 INR 1.1 09/20/16 06:23 APTT 28 SECONDS (21-34) 09/20/16 06:23
--- NOTE | 2016-10-28 00:41 | CP.PCM.CON ---
History of Present Illness - History of Present Illness History of Present Illness: Notified by R.NPriscila 10/27/162 hours, Dr. Martine Ureña requesting consult for vaginal bleeding - onset earlier in the day. Patient received i room 354 - contact isolation. Patient is asleep, 2 point restraints. Patient in deep sleep; nurse and I are unable to awaken her at this time. Nurse states patient is Turkmen-speaking, and rarely verbalizes herself. Briefly, upon review of initial admitting history from 08/17/16, patient is an 80 years old female with past medical history of hypertension, arthritis, peripheral edema, CHF, TTP, admitted with complaints of lethargy, confusion, abdominal pain and found to have decreased platelet level and was diagnosed with TTP and underwent plasmapheresis, patient underwent dialysis for renal insufficiency patient. Patient came to ER for leaking blue gel from life vest. Blood pressure low, increased BUN/creatinine ratio noted. Unable to evaluate patient at this time, inclusive of physical/vaginal exam. R.N. states one small blood clot was noted at time of changing patient a few short moments ago. Medication review noted for patient having received a bolus of heparin. - in the post menopausal state, it is not uncommon for a woman to experience post menopausal (vaginal) bleeding with the administration of heparin. Please obtain transvaginal/pelvic ultrasound for evaluation of endometrial stripe, and re-consult. Thank you Past Patient History - Past Medical History & Family History Past Medical History?: Yes - Past Social History Smoking Status: Never Smoked - CARDIAC Hx Hypertension: Yes Hx Peripheral Edema: Yes - PULMONARY Hx Respiratory Disorders: No - NEUROLOGICAL Hx Neurological Disorder: Yes Hx Dementia: Yes - HEENT Hx HEENT Problems: Yes - RENAL Date of Last Dialysis Treatment: 08/14/16 - ENDOCRINE/METABOLIC Hx Endocrine Disorders: Yes (enlarged thyroid) Hx Diabetes Mellitus Type 2: Yes - HEMATOLOGICAL/ONCOLOGICAL Hx Anemia: Yes - INTEGUMENTARY Hx Dermatological Problems: Yes (generalized pruritus) - MUSCULOSKELETAL/RHEUMATOLOGICAL Hx Falls: No - GASTROINTESTINAL Hx Gastrointestinal Disorders: No - GENITOURINARY/GYNECOLOGICAL Hx Genitourinary Disorders: No - PSYCHIATRIC Hx Substance Use: No - SURGICAL HISTORY Hx Surgeries: Yes Other/Comment: 1993 THYROID SX - ANESTHESIA Hx Anesthesia: Yes Hx Anesthesia Reactions: No Hx Malignant Hyperthermia: No Meds Allergies/Adverse Reactions: Allergies Allergy/AdvReac Type Severity Reaction Status Date / Time No Known Allergies Allergy Verified 08/16/16 01:13 - Medications Medications: Current Medications Epoetin Herve (Procrit) 10,000 unit IV TTS [facility] Last Admin: 10/25/16 12:24 Dose: 10,000 unit Ferric Sodium Gluconate Complex (Ferrlecit) 125 mg IVPB DAILY [facility] Stop: 10/31/16 10:01 Last Admin: 10/27/16 11:40 Dose: 125 mg Paricalcitol (Zemplar) 1 mcg IV TTS [facility] Vitamin B Complex/Vit C/Folic Acid (Nephro-Andrea) 1 tab PO 0800 [facility] Results - Vital Signs Recent Vital Signs: Last Vital Signs Temp 99.2 F 10/27/16 15:30 Pulse 84 10/27/16 15:30 Resp 20 10/27/16 15:30 BP 151/71 H 10/27/16 15:30 Pulse Ox 94 L 10/27/16 15:30 - Labs Result Diagrams: 10/23/16 07:05 10/23/16 07:05
--- NOTE | 2016-10-28 01:18 | PN ---
FOLLOWUP RENAL CONSULTATION LOCATION: The patient is located in room #354, bed #1. REQUESTED BY: Kavon Ureña MD REASON FOR FOLLOWUP: End-stage renal disease, for continuation of hemodialysis. SUBJECTIVE: The patient is an 80-year-old elderly female with a history of longstanding hypertension, rheumatoid arthritis, cardiomyopathy, CHF, respiratory failure, status post intubation x2, thrombocytopenia, TTP, plasmapheresis x3 sessions with relapsing TTP. The patient was started on rituximab q. weekly. The patient is not in acute distress. Feeling better. No complaints today. No shortness of breath. The patient's family at bedside. PHYSICAL EXAMINATION VITAL SIGNS: Blood pressure 151/71, pulse 84, respirations 20, temperature 99.2 and saturation is 94% to 97%. Height 5 feet 2 inches and weight is 120 pounds. GENERAL: The patient is an 80-year-old elderly, female, moderately built, moderately nourished, not in acute distress. HEENT: Pupils are normal and reactive to light and accommodation. Conjunctivae are pink. Sclerae are anicteric. Tongue is moist. Trachea is midline. LUNGS: Symmetrical on both sides. Bilateral breath sounds present. Clear on auscultation. CARDIOVASCULAR SYSTEM: [place] at the sixth intercostal space, midclavicular line. S1 and S2 audible. No murmur. No gallop. ABDOMEN: Normal in appearance. Soft and tympanic. No guarding. No rigidity. No hepatosplenomegaly. CENTRAL NERVOUS SYSTEM: The patient is alert, awake and oriented x2. Sensory and motor system is grossly within normal limits. EXTREMITIES: No cyanosis. No clubbing. No edema. CURRENT MEDICATIONS: Include Epogen 10,000 three times a week, ferric gluconate 125 mg daily. LABORATORY DATA: Include as follows as of 10/23/2016, WBC 8.7, hemoglobin 8.4, hematocrit is 26, platelet 171. Sodium 135, potassium 5.5, chloride 98, CO2 of 26, BUN 40, creatinine 5.1, glucose 81 and calcium 9.5. As of 10/21/2016, iron less than 10, TIBC 228 and saturation 4.4, ferritin 26.3. ASSESSMENT AND PLAN: In summary, the patient is an 80-year-old elderly female with a history of hypertension, rheumatoid arthritis, cardiomyopathy, congestive heart failure, thrombocytopenia with renal failure, on hemodialysis three times a week. 1. Renal failure, most likely end-stage renal disease. The patient is on hemodialysis, dependent for the last 3 months, most likely secondary to thrombotic thrombocytopenic purpura, cannot rule out secondary to thrombotic microangiopathy. 2. Hypertension. Blood pressure is stable. 3. Cardiomyopathy. 4. Anemia secondary to renal failure and iron deficiency and thrombotic thrombocytopenic purpura. Continue Epogen, continue IV iron and also, we will add Nephrocaps 1 tablet daily and Zemplar 1 mcg three times a week with dialysis. We will check CBC and CMP and phosphorus level in a.m. and also PTH intact level. We will follow with you. Thank you for allowing me to participate in your patient's care. Horacio Graham MD
[2016-10-28 07:23] LABS: BASO % 0.5 % (0.0-2.0); EOS # 0.5 K/uL (0.0-0.7); EOS % 5.5 % (0.0-4.0); HEMATOCRIT 28.2 % (34.0-47.0); LYMPH # 0.9 K/uL (1.0-4.3); LYMPH % 10.3 % (20.0-40.0); MEAN CORPUSCULAR HEMOGLOBIN 27.3 pg (27.0-31.0); MEAN CORPUSCULAR HGB CONC 31.5 g/dL (33.0-37.0); MEAN PLATELET VOLUME 8.9 fL (7.2-11.7); MONO # 1.2 K/uL (0.0-0.8); MONO % 14.3 % (0.0-10.0); NRBC % 0.2 % (0.0-2.0); RED CELL DISTRIBUTION WIDTH 22.8 % (11.5-14.5); WHITE BLOOD COUNT 8.6 K/uL (4.8-10.8)
[2016-10-28 07:30] LABS: MEAN CELL VOLUME 86.6 fL (81.0-99.0)
[2016-10-28 07:45] LABS: POTASSIUM 5.7 mmol/L (3.6-5.2)
[2016-10-28 07:47] LABS: BILIRUBIN,TOTAL 0.5 mg/dL (0.2-1.3); TOTAL PROTEIN 5.5 g/dL (6.3-8.3)
[2016-10-28 07:48] LABS: CALCIUM 8.5 mg/dl (8.6-10.4); PHOSPHOROUS 4.1 mg/dL (2.5-4.5)
--- NOTE | 2016-10-28 09:50 | CP.PCM.PN ---
Subjective - Date & Time of Evaluation Date of Evaluation: 10/28/16 Time of Evaluation: 08:00 - Subjective Subjective: PGY2 Resident - Medicine Progress Note Patient seen and examined while receiving dialysis. No overnight events per nursing. Patient appears comfortably, no acute distress. ROS not obtainable 2/2 AMS - patient would not respond to commands in [place]ian or Kiswahili. Objective - Vital Signs/Intake and Output Vital Signs (last 24 hours): Temp Pulse Resp BP Pulse Ox 98 F 76 20 143/72 97 10/28/16 08:00 10/28/16 08:00 10/28/16 08:00 10/28/16 08:00 10/28/16 08:00 Intake and Output: 10/28/16 10/28/16 06:59 18:59 Intake Total 370 Balance 370 - Medications Medications: Current Medications Epoetin Herve (Procrit) 10,000 unit IV TTS [facility] Last Admin: 10/25/16 12:24 Dose: 10,000 unit Ferric Sodium Gluconate Complex (Ferrlecit) 125 mg IVPB DAILY [facility] Stop: 10/31/16 10:01 Last Admin: 10/27/16 11:40 Dose: 125 mg Paricalcitol (Zemplar) 1 mcg IV TTS [facility] Vitamin B Complex/Vit C/Folic Acid (Nephro-Andrea) 1 tab PO 0800 [facility] - Labs Labs: 10/28/16 07:05 10/28/16 07:05 PT 11.9 SECONDS (9.7-12.2) 09/20/16 06:23 INR 1.1 09/20/16 06:23 APTT 28 SECONDS (21-34) 09/20/16 06:23 - Additional Findings Additional findings: - Constitutional Appears: Non-toxic, Chronically Ill - Head Exam Head Exam: NORMOCEPHALIC, Atraumatic - Eye Exam Eye Exam: PERRL - ENT Exam ENT Exam: Mucous Membranes Dry, Normal External Ear Exam - Neck Exam Neck Exam: absent: Lymphadenopathy - Respiratory Exam Respiratory Exam: Decreased Breath Sounds, Clear to Ausculation Bilateral - Cardiovascular Exam Cardiovascular Exam: REGULAR RHYTHM, +S1, +S2 - GI/Abdominal Exam GI & Abdominal Exam: Distended, Soft - Extremities Exam Extremities Exam: absent: Calf Tenderness, Pedal Edema - Back Exam Back Exam: absent: CVA tenderness (L), CVA tenderness (R) - Neurological Exam Neurological Exam: absent: Alert, Awake, Oriented x3 - patient was very lethargic and difficult to arouse during dialysis. Assessment and Plan - Assessment and Plan (Free Text) Assessment: ESRD (end stage renal disease) on dialysis 10/28: Patient seen in dialysis today, tolerated session, however lethargic. Nephrology Consult, Dr. Graham, f/u recs Dialysis TThS Hemodyalisis dependend for past 3 months likely 2/2 TTP Status: Acute Anemia 2/2 CKD 10/28: Hgb 8.9 today, low/stable, mildly improved HemeOnc Consult, Dr. Montanez, f/u recs Anemia 2/2 CKD, Fe deficiency, TTP Continue epogen continue IV iron Nephrocaps 1 tab daily Zemplar 1mcg TTS with dialysis Status: Chronic Hypertension BP stable 143/72 Cardiomyopathy with low EF Cardiology consult, Dr. Salmon, f/u recs Medical management due to poor general condition. Due to dementia not a candidate for cath or AICD/LifeVest Status: Acute TTP (thrombotic thrombocytopenic purpura) 10/28: platelet count 186. HemeOnc Consult, Dr. Montanez, f/u recs. s/p plasmapheresis s/p 4 dose of Rituximab plt count normal Status: Acute Vaginal Bleed 10/28: ObGyn Consult on 10/27 2/2 vaginal bleeding, f/u recs - Please f/u transvaginal/pelvic ultrasound for evaluation of endometrial stripe, and re- consult. * Unable to evaluate patient at this time, inclusive of physical/vaginal exam. R.N. states one small blood clot was noted at time of changing patient a few short moments ago. * Medication review noted for patient having received a bolus of heparin. - in the post menopausal state, it is not uncommon for a woman to experience post menopausal (vaginal) bleeding with the administration of heparin. Prophylaxis Consistent carb diet PT / OT Swallow eval/treat
[2016-10-28] MEDS: Epoetin Alfa 10,000 unit/ml Dialysis IV SCH (11:06)
[2016-10-28] MEDS: Paricalcitol 2 mcg/ml Inj IV SCH (11:06)
[2016-10-28] MEDS: Multivitamin Vitamin B Complex (Nephro-Vite) Tab PO SCH (11:30)
[2016-10-28] MEDS: Ferric Sodium Gluconat Complex 62.5 mg/5 ml Vial IVPB SCH (11:31)
--- NOTE | 2016-10-28 12:09 | CP.PCM.PN ---
Subjective - Date & Time of Evaluation Date of Evaluation: 10/28/16 Time of Evaluation: 12:08 - Subjective Subjective: pt is seen and examined during hd, follow up consult is dictated #[id number] stable hd tx Objective - Vital Signs/Intake and Output Vital Signs (last 24 hours): Temp Pulse Resp BP Pulse Ox 98.5 F 78 16 156/94 H 97 10/28/16 09:15 10/28/16 09:15 10/28/16 09:15 10/28/16 11:20 10/28/16 09:15 Intake and Output: 10/28/16 10/28/16 06:59 18:59 Intake Total 370 Balance 370 - Medications Medications: Current Medications Epoetin Herve (Procrit) 10,000 unit IV TTS [facility] Last Admin: 10/28/16 11:06 Dose: 10,000 unit Ferric Sodium Gluconate Complex (Ferrlecit) 125 mg IVPB DAILY [facility] Stop: 10/31/16 10:01 Last Admin: 10/28/16 11:31 Dose: 125 mg Paricalcitol (Zemplar) 1 mcg IV TTS [facility] Last Admin: 10/28/16 11:06 Dose: 1 mcg Vitamin B Complex/Vit C/Folic Acid (Nephro-Andrea) 1 tab PO 0800 [facility] Last Admin: 10/28/16 11:30 Dose: Not Given - Labs Labs: 10/28/16 07:05 10/28/16 07:05 PT 11.9 SECONDS (9.7-12.2) 09/20/16 06:23 INR 1.1 09/20/16 06:23 APTT 28 SECONDS (21-34) 09/20/16 06:23
--- NOTE | 2016-10-28 18:56 | US ---
HISTORY: evaluate endometrial stripe 2/2 bleed COMPARISON: None available. TECHNIQUE: Transabdominal and endovaginal ultrasound examination of the pelvis. FINDINGS: UTERUS: Measures 7.2 x 3.6 x 1.7 cm. The uterus is retroverted but otherwise normal in size and appearance. No fibroid or other mass lesion seen. ENDOMETRIUM: Measures 19 mm in diameter. The endometrium is thick and heterogeneous. CERVIX: No cervical abnormality identified. RIGHT OVARY: Was not visualized LEFT OVARY: Was not visualized. FREE FLUID: No significant free fluid noted. OTHER FINDINGS: None. IMPRESSION: Suboptimal study. Heterogeneous thick endometrium measures up to 19 millimeter. The possibility of endometrial hyperplasia and neoplasm should be considered. Further assessment is recommended. Retroverted uterus.The ovaries are not visualized in this exam.
--- NOTE | 2016-10-28 20:31 | CP.PCM.PN ---
Subjective - Date & Time of Evaluation Date of Evaluation: 10/28/16 Time of Evaluation: 07:00 - Subjective Subjective: clinically same Objective - Vital Signs/Intake and Output Vital Signs (last 24 hours): Temp Pulse Resp BP Pulse Ox 98.6 F 81 20 141/75 94 L 10/28/16 16:10 10/28/16 16:10 10/28/16 16:10 10/28/16 16:10 10/28/16 16:10 Intake and Output: 10/28/16 10/29/16 18:59 06:59 Intake Total 300 Balance 300 - Medications Medications: Current Medications Epoetin Herve (Procrit) 10,[address] [facility] Last Admin: 10/28/16 11:06 Dose: 10,000 unit Ferric Sodium Gluconate Complex (Ferrlecit) [address] [facility] Stop: 10/31/16 10:01 Last Admin: 10/28/16 11:31 Dose: 125 mg Paricalcitol (Zemplar) [address] [facility] Last Admin: 10/28/16 11:06 Dose: 1 mcg Vitamin B Complex/Vit C/Folic Acid (Nephro-Andrea) 1 tab PO 0800 [facility] Last Admin: 10/28/16 11:30 Dose: Not Given - Labs Labs: 10/28/16 07:05 10/28/16 07:05 PT 11.9 SECONDS (9.7-12.2) 09/20/16 06:23 INR 1.1 09/20/16 06:23 APTT 28 SECONDS (21-34) 09/20/16 06:23 - Constitutional Appears: Well - Head Exam Head Exam: ATRAUMATIC, NORMAL INSPECTION, NORMOCEPHALIC - Eye Exam Eye Exam: EOMI, Normal appearance, PERRL Pupil Exam: NORMAL ACCOMODATION, PERRL - ENT Exam ENT Exam: Mucous Membranes Moist, Normal Exam - Neck Exam Neck Exam: Full ROM, Normal Inspection. absent: Lymphadenopathy - Respiratory Exam Respiratory Exam: Decreased Breath Sounds - Cardiovascular Exam Cardiovascular Exam: REGULAR RHYTHM, +S1, +S2 - GI/Abdominal Exam GI & Abdominal Exam: Soft, Diminished Bowel Sounds - Rectal Exam Rectal Exam: Deferred Assessment and Plan (1) Cardiac dysrhythmia Status: Acute (2) ESRD (end stage renal disease) on dialysis Status: Acute (3) Pulmonary edema Status: Acute (4) MARCO (acute kidney injury) Status: Acute (5) Acute respiratory failure requiring reintubation Status: Acute (6) Arthritis Status: Acute (7) CHF (congestive heart failure) Status: Acute (8) Dehydration Status: Acute (9) Dehydration Status: Acute (10) Diverticulosis Status: Acute (11) Elevated CEA Status: Acute (12) Hypertension Status: Acute (13) Inguinal lymphadenopathy Status: Acute (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
--- NOTE | 2016-10-28 22:51 | CP.PCM.PN ---
Subjective - Date & Time of Evaluation Date of Evaluation: 10/28/16 Time of Evaluation: 12:00 - Subjective Subjective: No complaints. Objective - Vital Signs/Intake and Output Vital Signs (last 24 hours): Temp Pulse Resp BP Pulse Ox 98.6 F 81 20 141/75 94 L 10/28/16 16:10 10/28/16 16:10 10/28/16 16:10 10/28/16 16:10 10/28/16 16:10 Intake and Output: 10/28/16 10/29/16 18:59 06:59 Intake Total 300 Balance 300 - Medications Medications: Current Medications Epoetin Herve (Procrit) 10,000 unit IV TTS [facility] Last Admin: 10/28/16 11:06 Dose: 10,000 unit Ferric Sodium Gluconate Complex (Ferrlecit) 125 mg IVPB DAILY [facility] Stop: 10/31/16 10:01 Last Admin: 10/28/16 11:31 Dose: 125 mg Paricalcitol (Zemplar) 1 mcg IV TTS [facility] Last Admin: 10/28/16 11:06 Dose: 1 mcg Vitamin B Complex/Vit C/Folic Acid (Nephro-Andrea) 1 tab PO 0800 [facility] Last Admin: 10/28/16 11:30 Dose: Not Given - Labs Labs: 10/28/16 07:05 10/28/16 07:05 PT 11.9 SECONDS (9.7-12.2) 09/20/16 06:23 INR 1.1 09/20/16 06:23 APTT 28 SECONDS (21-34) 09/20/16 06:23 - Head Exam Head Exam: ATRAUMATIC - Eye Exam Eye Exam: Normal appearance - ENT Exam ENT Exam: Mucous Membranes Dry - Respiratory Exam Respiratory Exam: NORMAL BREATHING PATTERN - Cardiovascular Exam Cardiovascular Exam: +S1, +S2 - GI/Abdominal Exam GI & Abdominal Exam: Normal Bowel Sounds - Extremities Exam Extremities Exam: Normal Inspection Assessment and Plan (1) TTP (thrombotic thrombocytopenic purpura) Assessment & Plan: s/p plasmapheresis s/p Rituximab plt count normal Status: Acute (2) Anemia Status: Acute
--- NOTE | 2016-10-29 00:32 | PN ---
FOLLOWUP RENAL CONSULTATION DATE: LOCATION: The patient is located in room 354, bed A. REQUESTED BY: Kavon Ureña MD REASON FOR FOLLOWUP: End-stage renal disease, for continuation of hemodialysis. SUBJECTIVE: Mrs. Denise Garcia is an 81 years old, elderly, female with a history of longstanding hypertension, rheumatoid arthritis, cardiomyopathy, thrombocytopenia, TTP, renal failure on hemodialysis for the last 3 months, was started on rituximab q. weekly for relapsing TTP. The patient seen and examined during dialysis this morning and UF goal was about 1.5 L and also the patient has poorly functioning permacath status post TPA placement, but not in distress. PHYSICAL EXAMINATION: VITAL SIGNS: Blood pressure 153/86, pulse 99, respirations 16, temperature 97.3, and saturation 99%. Height 5 feet 2 inches and weight is 120 pounds. GENERAL: Mrs. Denise Garcia is an 81-year-old, elderly, female, moderately built, moderately nourished, not in distress. HEENT: Pupils normal, reactive to light and accommodation. Conjunctivae pink. Sclerae anicteric. Tongue is moist. Trachea is midline. LUNGS: Symmetric on both sides. Bilateral breath sounds present. Clear on auscultation. CARDIOVASCULAR: [place] at sixth intercostal space, midclavicular line. S1 and S2 audible. No murmur or gallop. ABDOMEN: Normal in appearance. Soft tympanic. No guarding. No rigidity. No hepatosplenomegaly. CENTRAL NERVOUS SYSTEM: The patient is arousable, following simple commands. Sensory and motor system grossly within normal limits. EXTREMITIES: No cyanosis. No clubbing. No edema. The patient is bedridden for the last 3 months. CURRENT MEDICATIONS: Include as follows: Ferrlecit of 125 mg IV piggyback daily, Nephro-Andrea 1 tablet daily, and Epogen 10,000 units three times a week, Zemplar 1 mcg three times a week. LABORATORY DATA: Include as follows: As of 10/28/2016, WBC 8.6, hemoglobin 8.9, hematocrit 28.2, and platelets 186. Sodium is 129, potassium 5.7, chloride 93, CO2 26, BUN 53, creatinine 5.3, glucose is 81, calcium 8.5, phosphorus is 4.1, total bilirubin 0.4, AST 27, ALT 56, alkaline phosphatase 99, total protein 5.5, and albumin is 2.8. ASSESSMENT AND PLAN: In summary, Mrs. Denise Garcia is an 81 years old, elderly, female with hypertension, rheumatoid arthritis, cardiomyopathy, congestive heart failure status post intubation x2, relapsing thrombotic thrombocytopenic purpura, renal failure on hemodialysis three times a day and also rituximab weekly x4. 1. Renal failure. 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 2. Hypertension. Blood pressure stable. 3. Cardiomyopathy. 4. Anemia. 5. Debility. The patient is bedridden for the last three months. The patient was seen and examined during dialysis this morning, had ultrafiltration about 1.5 L. The patient has a poorly functioning permacath, alteplase was placed post dialysis. 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 The patient is stable from the renal standpoint. Thank you for allowing me to participate in your patient's care. Horacio Graham MD
[2016-10-29 07:39] LABS: BASO % 0.5 % (0.0-2.0); EOS # 0.3 K/uL (0.0-0.7); EOS % 3.9 % (0.0-4.0); HEMATOCRIT 29.6 % (34.0-47.0); LYMPH # 0.8 K/uL (1.0-4.3); LYMPH % 10.2 % (20.0-40.0); MEAN CELL VOLUME 87.3 fL (81.0-99.0); MEAN CORPUSCULAR HEMOGLOBIN 27.3 pg (27.0-31.0); MEAN CORPUSCULAR HGB CONC 31.3 g/dL (33.0-37.0); MEAN PLATELET VOLUME 9.2 fL (7.2-11.7); MONO # 1.1 K/uL (0.0-0.8); MONO % 13.8 % (0.0-10.0); NRBC % 0.1 % (0.0-2.0); RED CELL DISTRIBUTION WIDTH 24.9 % (11.5-14.5); WHITE BLOOD COUNT 8.1 K/uL (4.8-10.8)
[2016-10-29 08:03] LABS: POTASSIUM 4.9 mmol/L (3.6-5.2)
[2016-10-29 08:05] LABS: BILIRUBIN,TOTAL 0.5 mg/dL (0.2-1.3)
[2016-10-29 08:06] LABS: CALCIUM 8.7 mg/dl (8.6-10.4); PHOSPHOROUS 3.5 mg/dL (2.5-4.5)
[2016-10-29] MEDS: Multivitamin Vitamin B Complex (Nephro-Vite) Tab PO SCH (08:17)
--- NOTE | 2016-10-29 08:58 | CP.PCM.PN ---
Subjective - Date & Time of Evaluation Date of Evaluation: 10/29/16 Time of Evaluation: 08:57 - Subjective Subjective: pt is seen and examined, follow up consult is dictated #[id number] Objective - Vital Signs/Intake and Output Vital Signs (last 24 hours): Temp Pulse Resp BP Pulse Ox 98.7 F 96 H 20 149/81 97 10/29/16 08:00 10/29/16 08:00 10/29/16 08:00 10/29/16 08:00 10/29/16 08:00 Intake and Output: 10/29/16 10/29/16 06:59 18:59 Intake Total 200 Balance 200 - Medications Medications: Current Medications Epoetin Herve (Procrit) 10,000 unit IV TTS [facility] Last Admin: 10/28/16 11:06 Dose: 10,000 unit Ferric Sodium Gluconate Complex (Ferrlecit) 125 mg IVPB DAILY [facility] Stop: 10/31/16 10:01 Last Admin: 10/28/16 11:31 Dose: 125 mg Paricalcitol (Zemplar) 1 mcg IV TTS [facility] Last Admin: 10/28/16 11:06 Dose: 1 mcg Vitamin B Complex/Vit C/Folic Acid (Nephro-Andrea) 1 tab PO 0800 [facility] Last Admin: 10/28/16 11:30 Dose: Not Given - Labs Labs: 10/29/16 07:20 10/29/16 07:20 PT 11.9 SECONDS (9.7-12.2) 09/20/16 06:23 INR 1.1 09/20/16 06:23 APTT 28 SECONDS (21-34) 09/20/16 06:23
[2016-10-29] MEDS: Ferric Sodium Gluconat Complex 62.5 mg/5 ml Vial IVPB SCH (10:16)
--- NOTE | 2016-10-29 13:16 | CP.PCM.PN ---
Subjective - Date & Time of Evaluation Date of Evaluation: 10/29/16 Time of Evaluation: 13:15 - Subjective Subjective: Progress note. Attending: Dr. Ureña. Pt seen and examined at bedside. No acute distress. No events overnight. ROS unobtainable. Endometrial us shows thick endometrium, will follow. Objective - Vital Signs/Intake and Output Vital Signs (last 24 hours): Temp Pulse Resp BP Pulse Ox 98.7 F 96 H 20 149/81 97 10/29/16 08:00 10/29/16 08:00 10/29/16 08:00 10/29/16 08:00 10/29/16 08:00 Intake and Output: 10/29/16 10/29/16 06:59 18:59 Intake Total 200 Balance 200 - Medications Medications: Current Medications Ferric Sodium Gluconate Complex (Ferrlecit) 125 mg IVPB DAILY [facility] Stop: 10/31/16 10:01 Last Admin: 10/29/16 10:16 Dose: 125 mg Paricalcitol (Zemplar) 1 mcg IV TTS [facility] Last Admin: 10/28/16 11:06 Dose: 1 mcg Vitamin B Complex/Vit C/Folic Acid (Nephro-Andrea) 1 tab PO 0800 [facility] Last Admin: 10/29/16 08:17 Dose: 1 tab - Labs Labs: 10/29/16 07:20 10/29/16 07:20 PT 11.9 SECONDS (9.7-12.2) 09/20/16 06:23 INR 1.1 09/20/16 06:23 APTT 28 SECONDS (21-34) 09/20/16 06:23 - Constitutional Appears: No Acute Distress, Chronically Ill - Head Exam Head Exam: ATRAUMATIC, NORMAL INSPECTION, NORMOCEPHALIC - ENT Exam ENT Exam: Mucous Membranes Moist - Neck Exam Neck Exam: Full ROM, Normal Inspection - Respiratory Exam Respiratory Exam: absent: Respiratory Distress - Cardiovascular Exam Cardiovascular Exam: +S1, +S2 - GI/Abdominal Exam GI & Abdominal Exam: Soft, Normal Bowel Sounds. absent: Tenderness - Extremities Exam Extremities Exam: Full ROM, Normal Inspection - Neurological Exam Neurological Exam: Altered - Psychiatric Exam Additional comments: Unable to assess - Skin Skin Exam: Dry, Intact, Normal Color, Warm Assessment and Plan - Assessment and Plan (Free Text) Assessment: ESRD (end stage renal disease) on dialysis Nephrology Consult, Dr. Graham, f/u recs Dialysis T, R, Sat Anemia -likely secondary to ckd HemeOnc Consult, Dr. Montanez, f/u recs Continue epoetin rebecca 10,000 units TRS continue IV ferric sodium gluconate Nephrocaps 1 tab daily continue pericalcitol Hypertension -has been stable -continue to monitor Cardiomyopathy with low EF Cardiology consult, Dr. Salmon, f/u recs Medical management due to poor general condition. Due to dementia not a candidate for cath or AICD/LifeVest TTP (thrombotic thrombocytopenic purpura) HemeOnc Consult, Dr. Montanez, f/u recs. s/p plasmapheresis s/p 4 dose of Rituximab plt count normal Vaginal Bleed -may be secondary to administration of heparin -endometrial us shows thick endometrium GI/ DVT Prophylaxis -f/u swallow evaluation -protonix daily -SCDs
--- NOTE | 2016-10-29 17:37 | CP.PCM.PN ---
Subjective - Date & Time of Evaluation Date of Evaluation: 10/29/16 Time of Evaluation: 07:00 - Subjective Subjective: clinically same Objective - Vital Signs/Intake and Output Vital Signs (last 24 hours): Temp Pulse Resp BP Pulse Ox 99.1 F 86 20 127/66 98 10/29/16 16:00 10/29/16 16:00 10/29/16 16:00 10/29/16 16:00 10/29/16 16:00 Intake and Output: 10/29/16 10/29/16 06:59 18:59 Intake Total 200 300 Balance 200 300 - Medications Medications: Current Medications Ferric Sodium Gluconate Complex (Ferrlecit) 125 mg IVPB DAILY [facility] Stop: 10/31/16 10:01 Last Admin: 10/29/16 10:16 Dose: 125 mg Pantoprazole Sodium (Protonix Inj) 40 mg IVP DAILY [facility] Paricalcitol (Zemplar) 1 mcg IV TTS [facility] Last Admin: 10/28/16 11:06 Dose: 1 mcg Vitamin B Complex/Vit C/Folic Acid (Nephro-Andrea) 1 tab PO 0800 [facility] Last Admin: 10/29/16 08:17 Dose: 1 tab - Labs Labs: 10/29/16 07:20 10/29/16 07:20 PT 11.9 SECONDS (9.7-12.2) 09/20/16 06:23 INR 1.1 09/20/16 06:23 APTT 28 SECONDS (21-34) 09/20/16 06:23 - Constitutional Appears: Well - Head Exam Head Exam: ATRAUMATIC, NORMAL INSPECTION, NORMOCEPHALIC - Eye Exam Eye Exam: EOMI, Normal appearance, PERRL Pupil Exam: NORMAL ACCOMODATION, PERRL - ENT Exam ENT Exam: Mucous Membranes Moist, Normal Exam - Neck Exam Neck Exam: Full ROM, Normal Inspection. absent: Lymphadenopathy - Respiratory Exam Respiratory Exam: Decreased Breath Sounds - Cardiovascular Exam Cardiovascular Exam: REGULAR RHYTHM, +S1, +S2 - GI/Abdominal Exam GI & Abdominal Exam: Soft, Diminished Bowel Sounds - Rectal Exam Rectal Exam: Deferred Assessment and Plan (1) Cardiac dysrhythmia Status: Acute (2) ESRD (end stage renal disease) on dialysis Status: Acute (3) Pulmonary edema Status: Acute (4) MARCO (acute kidney injury) Status: Acute (5) Acute respiratory failure requiring reintubation Status: Acute (6) Arthritis Status: Acute (7) CHF (congestive heart failure) Status: Acute (8) Dehydration Status: Acute (9) Dehydration Status: Acute (10) Diverticulosis Status: Acute (11) Elevated CEA Status: Acute (12) Hypertension Status: Acute (13) Inguinal lymphadenopathy Status: Acute (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
--- NOTE | 2016-10-30 03:11 | PN ---
FOLLOWUP RENAL CONSULTATION LOCATION: The patient is located in room 354, bed A. REQUESTED BY: Kavon Ureña MD REASON FOR FOLLOWUP: End-stage renal disease, continuation of hemodialysis. SUBJECTIVE: Mrs. Denise Garcia is an 81-year-old elderly female with history of longstanding hypertension, rheumatoid arthritis, thrombocytopenia, TTP, cardiomyopathy, end-stage renal disease, on hemodialysis 3 times a week for the last 3 months. The patient is not in acute distress. Denies any complaints. Following simple commands, not in acute distress. PHYSICAL EXAMINATION VITAL SIGNS: This morning as follows: Blood pressure 149/81, pulse 96, respirations 20, temperature 98.7 and saturation 97%. Height is 5 feet 2 inches, weight is 120 pounds. GENERAL: Mrs. Denise Garcia is an 81-year-old, elderly female, moderately built, moderately nourished, not in distress. HEENT: Pupils are normally reactive to light and accommodation. Conjunctivae pink. Sclerae anicteric. Tongue is moist. Trachea is midline. LUNGS: Symmetric on both sides. Bilateral breath sounds present and clear to auscultation. CARDIOVASCULAR SYSTEM: [place] at the sixth intercostal space, midclavicular line. S1 and S2 audible. No murmur or gallop. ABDOMEN: Normal in appearance. Soft and tympanic. No guarding. No rigidity. No hepatosplenomegaly. CENTRAL NERVOUS SYSTEM: The patient is alert, awake and oriented x1. Sensory and motor system is grossly within normal limits. The patient is legally blind. EXTREMITIES: No cyanosis, no clubbing, and no edema. CURRENT MEDICATIONS: Include as follows: Ferrlecit 125 mg daily, Nephro-Andrea 1 tablet daily, Protonix 40 mg daily, Zemplar 1 mcg three times a week. LABORATORY DATA: As follows: As of 10/31/2016, WBC 8.1, hemoglobin 9.3, hematocrit 29.6, platelets 181. Sodium 134, potassium 4.9, chloride 98, CO2 27, BUN 32, creatinine 3.9, calcium 8.7, glucose 87, phosphorus 3.1, magnesium 2.0, total bilirubin 0.5, AST 37, ALT 55, alkaline phosphatase 118, total protein is 6, albumin is 3.0. ASSESSMENT AND PLAN: In summary, Mrs. Denise Garcia is an 81-year-old elderly female with history of hypertension, rheumatoid arthritis, congestive heart failure, cardiomyopathy, status post respiratory failure, intubation x2, thrombocytopenia, thrombotic thrombocytopenic purpura, status post plasmapheresis x3 sessions with relapsing thrombotic thrombocytopenic purpura, started on rituximab q. weekly x4 dose. The patient is on hemodialysis dependent for the last 3 months. 1. 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 2. Hypertension. 3. Cardiomyopathy. 4. Anemia secondary to renal failure, iron deficiency under thrombotic thrombocytopenic purpura, continue IV iron and continue Procrit, hemoglobin and hematocrit are improving nicely. 5. Thrombotic thrombocytopenic purpura, platelets are stable at this time. Continue hemodialysis 3 times a week; Thursday, , and Thursday. Follow with social service for possible discharge plan. Thank you for allowing me to participate in your patient's care. Horacio Graham MD
[2016-10-30 08:58] LABS: BASO % 0.5 % (0.0-2.0); EOS # 0.2 K/uL (0.0-0.7); EOS % 2.4 % (0.0-4.0); HEMATOCRIT 28.7 % (34.0-47.0); LYMPH # 1.1 K/uL (1.0-4.3); LYMPH % 11.4 % (20.0-40.0); MEAN CELL VOLUME 87.6 fL (81.0-99.0); MEAN CORPUSCULAR HEMOGLOBIN 27.6 pg (27.0-31.0); MEAN CORPUSCULAR HGB CONC 31.6 g/dL (33.0-37.0); MEAN PLATELET VOLUME 9.1 fL (7.2-11.7); MONO # 1.4 K/uL (0.0-0.8); MONO % 15.3 % (0.0-10.0); NRBC % 0.1 % (0.0-2.0); RED CELL DISTRIBUTION WIDTH 25.5 % (11.5-14.5); WHITE BLOOD COUNT 9.2 K/uL (4.8-10.8)
[2016-10-30 09:11] LABS: POTASSIUM 5.6 mmol/L (3.6-5.2)
[2016-10-30 09:13] LABS: BILIRUBIN,TOTAL 0.5 mg/dL (0.2-1.3); TOTAL PROTEIN 6.1 g/dL (6.3-8.3)
[2016-10-30 09:14] LABS: CALCIUM 9.1 mg/dl (8.6-10.4); MAGNESIUM 2.1 mg/dL (1.6-2.3); PHOSPHOROUS 3.7 mg/dL (2.5-4.5)
[2016-10-30] MEDS: Ferric Sodium Gluconat Complex 62.5 mg/5 ml Vial IVPB SCH (09:41)
[2016-10-30] MEDS: Multivitamin Vitamin B Complex (Nephro-Vite) Tab PO SCH (09:42)
[2016-10-30] MEDS ORDERED: Epoetin Alfa Dialysis 2000 U/ML Inj IV SCH (10:00)
[2016-10-30] MEDS ORDERED: Epoetin Alfa 10,000 unit/ml Dialysis IV SCH (11:15)
[2016-10-30] MEDS ORDERED: EPOETIN ALFA 4,000 UNIT/ML ML Dialysis IV SCH (11:30)
[2016-10-30] MEDS: Epoetin Alfa 10,000 unit/ml Dialysis IV SCH (12:41)
[2016-10-30] MEDS: Paricalcitol 2 mcg/ml Inj IV SCH (12:42)
--- NOTE | 2016-10-30 14:47 | CP.PCM.PN ---
Subjective - Date & Time of Evaluation Date of Evaluation: 10/30/16 Time of Evaluation: 14:45 - Subjective Subjective: Progress note. Attending: Dr. Ureña. Pt seen and examined at bedside. No acute distress. No events overnight. ROS unobtainable. Endometrial us shows thick endometrium, will follow. Objective - Vital Signs/Intake and Output Vital Signs (last 24 hours): Temp Pulse Resp BP Pulse Ox 98.7 F 87 20 140/90 100 10/30/16 12:45 10/30/16 12:45 10/30/16 12:45 10/30/16 12:45 10/30/16 12:45 Intake and Output: 10/30/16 10/30/16 06:59 18:59 Intake Total 350 100 Balance 350 100 - Medications Medications: Current Medications Epoetin Herve (Procrit) 10,000 unit IV TTS [facility] Last Admin: 10/30/16 12:41 Dose: 10,000 unit Ferric Sodium Gluconate Complex (Ferrlecit) 125 mg IVPB DAILY [facility] Stop: 10/31/16 10:01 Last Admin: 10/30/16 09:41 Dose: 125 mg Heparin Sodium (Porcine) (Heparin) 3,400 units IVP TTS [facility] Last Admin: 10/30/16 12:41 Dose: 3,400 units Pantoprazole Sodium (Protonix Inj) 40 mg IVP DAILY [facility] Last Admin: 10/30/16 09:43 Dose: 40 mg Paricalcitol (Zemplar) 1 mcg IV TTS [facility] Last Admin: 10/30/16 12:42 Dose: 1 mcg Vitamin B Complex/Vit C/Folic Acid (Nephro-Andrea) 1 tab PO 0800 [facility] Last Admin: 10/30/16 09:42 Dose: 1 tab - Labs Labs: 10/30/16 08:47 10/30/16 08:47 PT 11.9 SECONDS (9.7-12.2) 09/20/16 06:23 INR 1.1 09/20/16 06:23 APTT 28 SECONDS (21-34) 09/20/16 06:23
--- NOTE | 2016-10-30 14:58 | CP.PCM.PN ---
Subjective - Date & Time of Evaluation Date of Evaluation: 10/27/16 Time of Evaluation: 19:00 - Subjective Subjective: Appears comfortable Objective - Vital Signs/Intake and Output Vital Signs (last 24 hours): Temp Pulse Resp BP Pulse Ox 98.7 F 87 20 140/90 100 10/30/16 12:45 10/30/16 12:45 10/30/16 12:45 10/30/16 12:45 10/30/16 12:45 Intake and Output: 10/30/16 10/30/16 06:59 18:59 Intake Total 350 100 Balance 350 100 - Medications Medications: Current Medications Epoetin Herve (Procrit) 10,000 unit IV TTS [facility] Last Admin: 10/30/16 12:41 Dose: 10,000 unit Ferric Sodium Gluconate Complex (Ferrlecit) 125 mg IVPB DAILY [facility] Stop: 10/31/16 10:01 Last Admin: 10/30/16 09:41 Dose: 125 mg Heparin Sodium (Porcine) (Heparin) 3,400 units IVP TTS [facility] Last Admin: 10/30/16 12:41 Dose: 3,400 units Pantoprazole Sodium (Protonix Inj) 40 mg IVP DAILY [facility] Last Admin: 10/30/16 09:43 Dose: 40 mg Paricalcitol (Zemplar) 1 mcg IV TTS [facility] Last Admin: 10/30/16 12:42 Dose: 1 mcg Vitamin B Complex/Vit C/Folic Acid (Nephro-Andrea) 1 tab PO 0800 [facility] Last Admin: 10/30/16 09:42 Dose: 1 tab - Labs Labs: 10/30/16 08:47 10/30/16 08:47 PT 11.9 SECONDS (9.7-12.2) 09/20/16 06:23 INR 1.1 09/20/16 06:23 APTT 28 SECONDS (21-34) 09/20/16 06:23 - Head Exam Head Exam: ATRAUMATIC - Eye Exam Eye Exam: Normal appearance - ENT Exam ENT Exam: Mucous Membranes Dry - Respiratory Exam Respiratory Exam: NORMAL BREATHING PATTERN - Cardiovascular Exam Cardiovascular Exam: +S1, +S2 - GI/Abdominal Exam GI & Abdominal Exam: Normal Bowel Sounds - Extremities Exam Extremities Exam: Normal Inspection Assessment and Plan (1) TTP (thrombotic thrombocytopenic purpura) Assessment & Plan: s/p plasmapheresis s/p Rituximab plt count normal Status: Acute (2) Anemia Status: Acute
--- NOTE | 2016-10-30 14:59 | CP.PCM.PN ---
Subjective - Date & Time of Evaluation Date of Evaluation: 10/29/16 Time of Evaluation: 19:00 - Subjective Subjective: No complaints. Objective - Vital Signs/Intake and Output Vital Signs (last 24 hours): Temp Pulse Resp BP Pulse Ox 98.7 F 87 20 140/90 100 10/30/16 12:45 10/30/16 12:45 10/30/16 12:45 10/30/16 12:45 10/30/16 12:45 Intake and Output: 10/30/16 10/30/16 06:59 18:59 Intake Total 350 100 Balance 350 100 - Medications Medications: Current Medications Epoetin Herve (Procrit) 10,000 unit IV TTS [facility] Last Admin: 10/30/16 12:41 Dose: 10,000 unit Ferric Sodium Gluconate Complex (Ferrlecit) 125 mg IVPB DAILY [facility] Stop: 10/31/16 10:01 Last Admin: 10/30/16 09:41 Dose: 125 mg Heparin Sodium (Porcine) (Heparin) 3,400 units IVP TTS [facility] Last Admin: 10/30/16 12:41 Dose: 3,400 units Pantoprazole Sodium (Protonix Inj) 40 mg IVP DAILY [facility] Last Admin: 10/30/16 09:43 Dose: 40 mg Paricalcitol (Zemplar) 1 mcg IV TTS [facility] Last Admin: 10/30/16 12:42 Dose: 1 mcg Vitamin B Complex/Vit C/Folic Acid (Nephro-Andrea) 1 tab PO 0800 [facility] Last Admin: 10/30/16 09:42 Dose: 1 tab - Labs Labs: 10/30/16 08:47 10/30/16 08:47 PT 11.9 SECONDS (9.7-12.2) 09/20/16 06:23 INR 1.1 09/20/16 06:23 APTT 28 SECONDS (21-34) 09/20/16 06:23 - Head Exam Head Exam: ATRAUMATIC - Eye Exam Eye Exam: Normal appearance - ENT Exam ENT Exam: Mucous Membranes Dry - Respiratory Exam Respiratory Exam: NORMAL BREATHING PATTERN - Cardiovascular Exam Cardiovascular Exam: +S1, +S2 - GI/Abdominal Exam GI & Abdominal Exam: Normal Bowel Sounds - Extremities Exam Extremities Exam: Normal Inspection Assessment and Plan (1) TTP (thrombotic thrombocytopenic purpura) Assessment & Plan: s/p plasmapheresis s/p Rituximab plt count normal Status: Acute (2) Anemia Status: Acute
--- NOTE | 2016-10-30 15:03 | CP.PCM.PN ---
Subjective - Date & Time of Evaluation Date of Evaluation: 10/30/16 Time of Evaluation: 13:00 - Subjective Subjective: No complaints. Objective - Vital Signs/Intake and Output Vital Signs (last 24 hours): Temp Pulse Resp BP Pulse Ox 98.7 F 87 20 140/90 100 10/30/16 12:45 10/30/16 12:45 10/30/16 12:45 10/30/16 12:45 10/30/16 12:45 Intake and Output: 10/30/16 10/30/16 06:59 18:59 Intake Total 350 100 Balance 350 100 - Medications Medications: Current Medications Epoetin Herve (Procrit) 10,000 unit IV TTS [facility] Last Admin: 10/30/16 12:41 Dose: 10,000 unit Ferric Sodium Gluconate Complex (Ferrlecit) 125 mg IVPB DAILY [facility] Stop: 10/31/16 10:01 Last Admin: 10/30/16 09:41 Dose: 125 mg Heparin Sodium (Porcine) (Heparin) 3,400 units IVP TTS [facility] Last Admin: 10/30/16 12:41 Dose: 3,400 units Pantoprazole Sodium (Protonix Inj) 40 mg IVP DAILY [facility] Last Admin: 10/30/16 09:43 Dose: 40 mg Paricalcitol (Zemplar) 1 mcg IV TTS [facility] Last Admin: 10/30/16 12:42 Dose: 1 mcg Vitamin B Complex/Vit C/Folic Acid (Nephro-Andrea) 1 tab PO 0800 [facility] Last Admin: 10/30/16 09:42 Dose: 1 tab - Labs Labs: 10/30/16 08:47 10/30/16 08:47 PT 11.9 SECONDS (9.7-12.2) 09/20/16 06:23 INR 1.1 09/20/16 06:23 APTT 28 SECONDS (21-34) 09/20/16 06:23 - Head Exam Head Exam: ATRAUMATIC - Eye Exam Eye Exam: Normal appearance - ENT Exam ENT Exam: Mucous Membranes Dry - Respiratory Exam Respiratory Exam: NORMAL BREATHING PATTERN - Cardiovascular Exam Cardiovascular Exam: +S1, +S2 - GI/Abdominal Exam GI & Abdominal Exam: Normal Bowel Sounds - Extremities Exam Extremities Exam: Normal Inspection Assessment and Plan (1) TTP (thrombotic thrombocytopenic purpura) Assessment & Plan: s/p plasmapheresis s/p Rituximab plt count normal Status: Acute (2) Anemia Status: Acute
--- NOTE | 2016-10-30 17:05 | CP.PCM.PN ---
Subjective - Date & Time of Evaluation Date of Evaluation: 10/30/16 Time of Evaluation: 17:04 - Subjective Subjective: pt is seen and examined, follow up consult is dictated #[id number] s/p hd today, uf 1.5 lit Objective - Vital Signs/Intake and Output Vital Signs (last 24 hours): Temp Pulse Resp BP Pulse Ox 98.7 F 87 20 140/90 100 10/30/16 12:45 10/30/16 12:45 10/30/16 12:45 10/30/16 12:45 10/30/16 12:45 Intake and Output: 10/30/16 10/30/16 06:59 18:59 Intake Total 350 100 Balance 350 100 - Medications Medications: Current Medications Epoetin Herve (Procrit) 10,000 unit IV TTS [facility] Last Admin: 10/30/16 12:41 Dose: 10,000 unit Ferric Sodium Gluconate Complex (Ferrlecit) 125 mg IVPB DAILY [facility] Stop: 10/31/16 10:01 Last Admin: 10/30/16 09:41 Dose: 125 mg Heparin Sodium (Porcine) (Heparin) 3,400 units IVP TTS [facility] Last Admin: 10/30/16 12:41 Dose: 3,400 units Pantoprazole Sodium (Protonix Inj) 40 mg IVP DAILY [facility] Last Admin: 10/30/16 09:43 Dose: 40 mg Paricalcitol (Zemplar) 1 mcg IV TTS [facility] Last Admin: 10/30/16 12:42 Dose: 1 mcg Vitamin B Complex/Vit C/Folic Acid (Nephro-Andrea) 1 tab PO 0800 [facility] Last Admin: 10/30/16 09:42 Dose: 1 tab - Labs Labs: 10/30/16 08:47 10/30/16 08:47 PT 11.9 SECONDS (9.7-12.2) 09/20/16 06:23 INR 1.1 09/20/16 06:23 APTT 28 SECONDS (21-34) 09/20/16 06:23
--- NOTE | 2016-10-30 17:18 | CP.PCM.PN ---
Subjective - Date & Time of Evaluation Date of Evaluation: 10/30/16 Time of Evaluation: 07:00 - Subjective Subjective: clinically same Objective - Vital Signs/Intake and Output Vital Signs (last 24 hours): Temp Pulse Resp BP Pulse Ox 98.7 F 87 20 140/90 100 10/30/16 12:45 10/30/16 12:45 10/30/16 12:45 10/30/16 12:45 10/30/16 12:45 Intake and Output: 10/30/16 10/30/16 06:59 18:59 Intake Total 350 100 Balance 350 100 - Medications Medications: Current Medications Epoetin Herve (Procrit) 10,000 unit IV TTS [facility] Last Admin: 10/30/16 12:41 Dose: 10,000 unit Ferric Sodium Gluconate Complex (Ferrlecit) 125 mg IVPB DAILY [facility] Stop: 10/31/16 10:01 Last Admin: 10/30/16 09:41 Dose: 125 mg Heparin Sodium (Porcine) (Heparin) 3,400 units IVP TTS [facility] Last Admin: 10/30/16 12:41 Dose: 3,400 units Pantoprazole Sodium (Protonix Inj) 40 mg IVP DAILY [facility] Last Admin: 10/30/16 09:43 Dose: 40 mg Paricalcitol (Zemplar) 1 mcg IV TTS [facility] Last Admin: 10/30/16 12:42 Dose: 1 mcg Vitamin B Complex/Vit C/Folic Acid (Nephro-Andrea) 1 tab PO 0800 [facility] Last Admin: 10/30/16 09:42 Dose: 1 tab - Labs Labs: 10/30/16 08:47 10/30/16 08:47 PT 11.9 SECONDS (9.7-12.2) 09/20/16 06:23 INR 1.1 09/20/16 06:23 APTT 28 SECONDS (21-34) 09/20/16 06:23 - Constitutional Appears: Well - Head Exam Head Exam: ATRAUMATIC, NORMAL INSPECTION, NORMOCEPHALIC - Eye Exam Eye Exam: EOMI, Normal appearance, PERRL Pupil Exam: NORMAL ACCOMODATION, PERRL - ENT Exam ENT Exam: Mucous Membranes Moist, Normal Exam - Neck Exam Neck Exam: Full ROM, Normal Inspection. absent: Lymphadenopathy - Respiratory Exam Respiratory Exam: Decreased Breath Sounds - Cardiovascular Exam Cardiovascular Exam: REGULAR RHYTHM, +S1, +S2 - GI/Abdominal Exam GI & Abdominal Exam: Soft, Diminished Bowel Sounds - Rectal Exam Rectal Exam: Deferred Assessment and Plan (1) Cardiac dysrhythmia Status: Acute (2) ESRD (end stage renal disease) on dialysis Status: Acute (3) Pulmonary edema Status: Acute (4) MARCO (acute kidney injury) Status: Acute (5) Acute respiratory failure requiring reintubation Status: Acute (6) Arthritis Status: Acute (7) CHF (congestive heart failure) Status: Acute (8) Dehydration Status: Acute (9) Dehydration Status: Acute (10) Diverticulosis Status: Acute (11) Elevated CEA Status: Acute (12) Hypertension Status: Acute (13) Inguinal lymphadenopathy Status: Acute (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
--- NOTE | 2016-10-31 02:14 | CON ---
LOCATION: Room 354, bed A. REQUESTED BY: Kavon Ureña MD REASON FOR FOLLOWUP: End-stage renal disease, for continuation of hemodialysis. HISTORY OF PRESENT ILLNESS: The patient is an 80-year-old elderly female, with a history of longstanding hypertension, rheumatoid arthritis, cardiomyopathy, CHF, status post respiratory failure, status post intubation x2, thrombocytopenia, TTP, multiple plasmapheresis sessions, and the patient has relapsing TTP, subsequently the patient was started on rituximab q. weekly x4 weeks. The patient is not in acute distress. The patient was seen and examined during dialysis this morning and ultrafiltration goal is about 1.5 L. The patient is not in distress. PHYSICAL EXAMINATION GENERAL: The patient is an 81-year-old elderly female, moderately built, moderately nourished, not in distress. VITAL SIGNS: On physical exam as follows, blood pressure 141/85, pulse 87, respirations 20, and temperature 97.4. Saturation 100%. Height 5 feet 2 inches and weight is 120 pounds. HEENT: Pupils are normally reactive to light and accommodation. Conjunctivae pink. Sclerae anicteric. Tongue is moist. Trachea is midline. CVS: [place] at the sixth intercostal space, midclavicular line. S1, S2 audible. No murmur or gallop. LUNGS: Symmetrical on both sides. Bilateral breath sounds present. Clear on auscultation. ABDOMEN: Normal in appearance, soft, tympanic. No guarding. No rigidity. No hepatosplenomegaly. EXTREMITIES: No cyanosis, no clubbing, no edema. [employer]: The patient is alert, awake, oriented x1 to 2. Sensory and motor system is grossly within normal limits. The patient is bedridden for the last 3 months. CURRENT MEDICATIONS: Include as follows, Ferrlecit 125 mg IV daily, subcu heparin 1700 units in each port of the PermCath post-dialysis, Nephro-Andrea one tablet p.o. daily, Epogen 10,000 units 3 times a week, and Protonix 40 mg IV daily, Zemplar 1 mcg IV 3 times a week. LABORATORY DATA: Include as follows, as of 10/30/2016, WBC 9.2, hemoglobin 9.1, hematocrit 28.7, platelets 176. Sodium 139, potassium 5.6, chloride 97, CO2 of 27, BUN 42, creatinine 5, glucose 87, calcium 9.1, phosphorus 3.7, and magnesium 2.1. Total bilirubin 0.4, AST 40, ALT 56, alkaline phosphatase 122. Total protein 6.1, albumin is 3.0. Hepatitis B surface antibody is positive. In summary, the patient is an 81-year-old elderly female with hypertension, rheumatoid arthritis, cardiomyopathy, TTP, thrombocytopenia, end-stage renal disease, on hemodialysis for the last 3 months, 3 times a week. 1. 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 2. Cardiomyopathy. 3. Hypertension. 4. Anemia secondary to renal failure. 5. Relapsing TTP, status post rituximab x4 doses q. weekly. Platelets are stable. The patient underwent hemodialysis this morning and ultrafiltration about 1.5 L, tolerating hemodialysis very well. Follow up with social service for possible discharge and outpatient hemodialysis unit placement. We will follow with you. Thank you for allowing me to participate in your patient's care. Horacio Graham MD
[2016-10-31 07:34] LABS: BASO # 0.1 K/uL (0.0-0.2); BASO % 0.6 % (0.0-2.0); EOS # 0.2 K/uL (0.0-0.7); EOS % 2.7 % (0.0-4.0); HEMATOCRIT 28.8 % (34.0-47.0); LYMPH # 1.2 K/uL (1.0-4.3); LYMPH % 14.8 % (20.0-40.0); MEAN CELL VOLUME 88.2 fL (81.0-99.0); MEAN CORPUSCULAR HEMOGLOBIN 27.8 pg (27.0-31.0); MEAN CORPUSCULAR HGB CONC 31.5 g/dL (33.0-37.0); NRBC % 0.3 % (0.0-2.0); PLATELET COUNT 167 K/uL (130-400); RED CELL DISTRIBUTION WIDTH 26.3 % (11.5-14.5); WHITE BLOOD COUNT 8.2 K/uL (4.8-10.8)
--- NOTE | 2016-10-31 07:37 | CP.PCM.PN ---
Subjective - Date & Time of Evaluation Date of Evaluation: 10/31/16 Time of Evaluation: 07:00 - Subjective Subjective: PGY2 Resident - Medicine Progress Note Patient seen and examined while receiving dialysis. No overnight events per nursing. Patient appears comfortably, no acute distress. ROS not obtainable 2/2 AMS - patient would not respond to questions in Romansh or Lithuanian. With daughter at bedside, patient would follow commands in Lithuanian to raise her hands and squeeze, but only after being physically shown how to perform the action. She kept her eyes closed during exam, and has not eaten well in 2-3 days per the daughter (only yogurt, soup, and water, no solids). She admits her mother's mental status has been declining. Family refuses rehab for their mother. Per case management, home care may be resumed once the patient is discharged. Objective - Vital Signs/Intake and Output Vital Signs (last 24 hours): Temp Pulse Resp BP Pulse Ox 98.3 F 96 H 20 147/72 96 10/31/16 00:00 10/31/16 00:00 10/31/16 00:00 10/31/16 00:00 10/31/16 00:00 Intake and Output: 10/31/16 10/31/16 06:59 18:59 Intake Total 200 Balance 200 - Medications Medications: Current Medications Epoetin Herve (Procrit) 10,000 unit IV TTS [facility] Last Admin: 10/30/16 12:41 Dose: 10,000 unit Ferric Sodium Gluconate Complex (Ferrlecit) 125 mg IVPB DAILY [facility] Stop: 10/31/16 10:01 Last Admin: 10/30/16 09:41 Dose: 125 mg Heparin Sodium (Porcine) (Heparin) 3,400 units IVP TTS [facility] Last Admin: 10/30/16 12:41 Dose: 3,400 units Pantoprazole Sodium (Protonix Inj) 40 mg IVP DAILY [facility] Last Admin: 10/30/16 09:43 Dose: 40 mg Paricalcitol (Zemplar) 1 mcg IV TTS [facility] Last Admin: 10/30/16 12:42 Dose: 1 mcg Vitamin B Complex/Vit C/Folic Acid (Nephro-Andrea) 1 tab PO 0800 [facility] Last Admin: 10/30/16 09:42 Dose: 1 tab - Labs Labs: 10/30/16 08:47 10/30/16 08:47 PT 11.9 SECONDS (9.7-12.2) 09/20/16 06:23 INR 1.1 09/20/16 06:23 APTT 28 SECONDS (21-34) 09/20/16 06:23 - Additional Findings Additional findings: - Constitutional Appears: Non-toxic, Chronically Ill, Drowsy - Head Exam Head Exam: NORMOCEPHALIC, Atraumatic - Eye Exam Eye Exam: PERRL - cannot assess EOM 2/2 patients AMS and not following direct commands. - ENT Exam ENT Exam: Mucous Membranes Dry, Normal External Ear Exam - Neck Exam Neck Exam: absent: Lymphadenopathy - Respiratory Exam Respiratory Exam: Decreased Breath Sounds, Clear to Ausculation Bilateral - Cardiovascular Exam Cardiovascular Exam: REGULAR RHYTHM, +S1, +S2 - GI/Abdominal Exam GI & Abdominal Exam: Distended, Soft - Extremities Exam Extremities Exam: absent: Calf Tenderness, Pedal Edema - Back Exam Back Exam: absent: CVA tenderness (L), CVA tenderness (R) - Neurological Exam Neurological Exam: absent: Alert, Awake, Oriented x3 Assessment and Plan - Assessment and Plan (Free Text) Assessment: ESRD (end stage renal disease) on dialysis 10/31: HD on 10/30. Continue tx. 10/29: HD yesterday 10/28: Patient seen in dialysis today, tolerated session, however lethargic. Nephrology Consult, Dr. Graham, f/u recs Dialysis TThS Hemodyalisis dependend for past 3 months likely 2/2 TTP Status: Acute Anemia 2/2 CKD 10/31: Hgb 9.1, low stable. 10/28: Hgb 8.9 today, low/stable, mildly improved HemeOnc Consult, Dr. Montanez, f/u recs Anemia 2/2 CKD, Fe deficiency, TTP Continue epogen continue IV iron Nephrocaps 1 tab daily Zemplar 1mcg TTS with dialysis Status: Chronic Hypertension 10/31: BP stable 147/72, continue to monitor. BP stable 143/72 Cardiomyopathy with low EF Cardiology consult, Dr. Salmon, f/u recs Medical management due to poor general condition. Due to dementia not a candidate for cath or AICD/LifeVest Status: Acute TTP (thrombotic thrombocytopenic purpura) 10/31: platelets 167, monitor. 10/28: [facility], f/u recs. s/p plasmapheresis s/p 4 dose of Rituximab plt count normal Status: Acute Vaginal Bleed 10/29: Endometrial us shows thick endometrium 10/28: ObGyn Consult on 10/27 2/2 vaginal bleeding, f/u recs - Please f/u transvaginal/pelvic ultrasound for evaluation of endometrial stripe, and re- consult. * Unable to evaluate patient at this time, inclusive of physical/vaginal exam. R.N. states one small blood clot was noted at time of changing patient a few short moments ago. * Medication review noted for patient having received a bolus of heparin. - in the post menopausal state, it is not uncommon for a woman to experience post menopausal (vaginal) bleeding with the administration of heparin. Prophylaxis 10/31: Patient with decreased PO intake. GI Consult, Dr. Goode, f/u recs for G- Tube eval and possible placement. Patient is open to G-Tube if appropriate. Consistent carb diet PT / OT Swallow eval/treat SCDs Disposition: family is open to PEG tube placement if it will help their mother. The possibility of home discharge was discussed with the daughter at bedside, however she did not feel comfortable having her mother home now that she is not eating well. It seems the family has refused rehab due to funding issues. Home PT may be a better option when ready.
[2016-10-31 08:09] LABS: POTASSIUM 4.5 mmol/L (3.6-5.2)
[2016-10-31 08:11] LABS: BILIRUBIN,TOTAL 0.5 mg/dL (0.2-1.3); TOTAL PROTEIN 5.9 g/dL (6.3-8.3)
[2016-10-31 08:12] LABS: CALCIUM 8.8 mg/dl (8.6-10.4); PHOSPHOROUS 3.2 mg/dL (2.5-4.5)
[2016-10-31] MEDS: Multivitamin Vitamin B Complex (Nephro-Vite) Tab PO SCH (08:31)
[2016-10-31 08:35] LABS: BASOPHIL 1 % (0-2); EOSINOPHIL 3 % (0-4); NEUTROPHIL 61 % (50-75); NUCLEATED RED BLOOD CELL 1 % (0-0); TOTAL CELLS COUNTED 100
[2016-10-31 08:37] LABS: GIANT PLATELETS PRESENT; LARGE PLATELETS PRESENT
[2016-10-31] MEDS: Ferric Sodium Gluconat Complex 62.5 mg/5 ml Vial IVPB SCH (10:10)
--- NOTE | 2016-10-31 10:56 | CP.PCM.PN ---
Subjective - Date & Time of Evaluation Date of Evaluation: 10/31/16 Time of Evaluation: 07:00 - Subjective Subjective: clinically same Objective - Vital Signs/Intake and Output Vital Signs (last 24 hours): Temp Pulse Resp BP Pulse Ox 97.5 F L 90 20 156/69 H 97 10/31/16 08:45 10/31/16 08:45 10/31/16 08:45 10/31/16 08:45 10/31/16 08:45 Intake and Output: 10/31/16 10/31/16 06:59 18:59 Intake Total 200 Balance 200 - Medications Medications: Current Medications Epoetin Herve (Procrit) 10,000 unit IV TTS [facility] Last Admin: 10/30/16 12:41 Dose: 10,000 unit Heparin Sodium (Porcine) (Heparin) 3,400 units IVP TTS [facility] Last Admin: 10/30/16 12:41 Dose: 3,400 units Pantoprazole Sodium (Protonix Inj) 40 mg IVP DAILY [facility] Last Admin: 10/31/16 09:06 Dose: 40 mg Paricalcitol (Zemplar) 1 mcg IV TTS [facility] Last Admin: 10/30/16 12:42 Dose: 1 mcg Vitamin B Complex/Vit C/Folic Acid (Nephro-Andrea) 1 tab PO 0800 [facility] Last Admin: 10/31/16 08:31 Dose: 1 tab - Labs Labs: 10/31/16 07:20 10/31/16 07:20 PT 11.9 SECONDS (9.7-12.2) 09/20/16 06:23 INR 1.1 09/20/16 06:23 APTT 28 SECONDS (21-34) 09/20/16 06:23 - Constitutional Appears: Well - Head Exam Head Exam: ATRAUMATIC, NORMAL INSPECTION, NORMOCEPHALIC - Eye Exam Eye Exam: EOMI, Normal appearance, PERRL Pupil Exam: NORMAL ACCOMODATION, PERRL - ENT Exam ENT Exam: Mucous Membranes Moist, Normal Exam - Neck Exam Neck Exam: Full ROM, Normal Inspection. absent: Lymphadenopathy - Respiratory Exam Respiratory Exam: Decreased Breath Sounds - Cardiovascular Exam Cardiovascular Exam: REGULAR RHYTHM, +S1, +S2 - GI/Abdominal Exam GI & Abdominal Exam: Soft, Diminished Bowel Sounds - Rectal Exam Rectal Exam: Deferred Assessment and Plan (1) Cardiac dysrhythmia Status: Acute (2) ESRD (end stage renal disease) on dialysis Status: Acute (3) Pulmonary edema Status: Acute (4) MARCO (acute kidney injury) Status: Acute (5) Acute respiratory failure requiring reintubation Status: Acute (6) Arthritis Status: Acute (7) CHF (congestive heart failure) Status: Acute (8) Dehydration Status: Acute (9) Dehydration Status: Acute (10) Diverticulosis Status: Acute (11) Elevated CEA Status: Acute (12) Hypertension Status: Acute (13) Inguinal lymphadenopathy Status: Acute (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
--- NOTE | 2016-10-31 18:35 | CP.PCM.PN ---
Subjective - Date & Time of Evaluation Date of Evaluation: 10/31/16 Time of Evaluation: 18:35 - Subjective Subjective: pt is seen and examined, follow up consult is dictated #[id number] for hd in am Objective - Vital Signs/Intake and Output Vital Signs (last 24 hours): Temp Pulse Resp BP Pulse Ox 98.3 F 83 20 142/71 94 L 10/31/16 15:00 10/31/16 15:00 10/31/16 15:00 10/31/16 15:00 10/31/16 15:00 Intake and Output: 10/31/16 10/31/16 06:59 18:59 Intake Total 200 350 Balance 200 350 - Medications Medications: Current Medications Epoetin Herve (Procrit) 10,000 unit IV TTS [facility] Last Admin: 10/30/16 12:41 Dose: 10,000 unit Heparin Sodium (Porcine) (Heparin) 3,400 units IVP TTS [facility] Last Admin: 10/30/16 12:41 Dose: 3,400 units Pantoprazole Sodium (Protonix Inj) 40 mg IVP DAILY [facility] Last Admin: 10/31/16 09:06 Dose: 40 mg Paricalcitol (Zemplar) 1 mcg IV TTS [facility] Last Admin: 10/30/16 12:42 Dose: 1 mcg Vitamin B Complex/Vit C/Folic Acid (Nephro-Andrea) 1 tab PO 0800 [facility] Last Admin: 10/31/16 08:31 Dose: 1 tab - Labs Labs: 10/31/16 07:20 10/31/16 07:20 PT 11.9 SECONDS (9.7-12.2) 09/20/16 06:23 INR 1.1 09/20/16 06:23 APTT 28 SECONDS (21-34) 09/20/16 06:23
[2016-11-01] MEDS: Multivitamin Vitamin B Complex (Nephro-Vite) Tab PO SCH (08:56)
--- NOTE | 2016-11-01 14:08 | CP.PCM.PN ---
Subjective - Date & Time of Evaluation Date of Evaluation: 11/01/16 Time of Evaluation: 14:08 - Subjective Subjective: pt is seen and examined, follow up consult is dictated #[id number] Objective - Vital Signs/Intake and Output Vital Signs (last 24 hours): Temp Pulse Resp BP Pulse Ox 98.8 F 85 20 161/71 H 97 11/01/16 00:00 11/01/16 00:00 11/01/16 00:00 11/01/16 00:00 11/01/16 00:00 Intake and Output: 11/01/16 11/01/16 06:59 18:59 Intake Total 200 Balance 200 - Medications Medications: Current Medications Epoetin Herve (Procrit) 10,000 unit IV TTS [facility] Last Admin: 10/30/16 12:41 Dose: 10,000 unit Heparin Sodium (Porcine) (Heparin) 3,400 units IVP TTS [facility] Last Admin: 10/30/16 12:41 Dose: 3,400 units Pantoprazole Sodium (Protonix Inj) 40 mg IVP DAILY [facility] Last Admin: 11/01/16 09:57 Dose: 40 mg Paricalcitol (Zemplar) 1 mcg IV TTS [facility] Last Admin: 10/30/16 12:42 Dose: 1 mcg Vitamin B Complex/Vit C/Folic Acid (Nephro-Andrea) 1 tab PO 0800 [facility] Last Admin: 11/01/16 08:56 Dose: 1 tab - Labs Labs: 10/31/16 07:20 10/31/16 07:20 PT 11.9 SECONDS (9.7-12.2) 09/20/16 06:23 INR 1.1 09/20/16 06:23 APTT 28 SECONDS (21-34) 09/20/16 06:23
--- NOTE | 2016-11-01 15:56 | PN ---
FOLLOWUP RENAL CONSULTATION LOCATION: The patient is located in room #354, bed A. REQUESTED BY: Dr. Kavon Ureña. REASON FOR FOLLOWUP: End-stage renal disease, continuation of the hemodialysis. HISTORY OF PRESENT ILLNESS: The patient is an 80-year-old elderly female with a past medical history significant for longstanding hypertension, rheumatoid arthritis, cardiomyopathy, CHF, status post respiratory failure, intubation x2, thrombocytopenia, TTP, status post plasmapheresis x3 with relapsing TTP, was started on rituximab q. weekly x4 doses. The patient still remains dialysis dependent for the last 3 months. The patient is not in distress. As per the family, the patient is less responsive now, this week, not in distress. PHYSICAL EXAMINATION: VITAL SIGNS: Blood pressure 161/71, pulse 85, respirations 20, temperature 98.8, saturation 97%. Height 5 feet 2 inches and weight is 120 pounds. GENERAL: The patient is an 80-year-old elderly female, moderately built, moderately nourished, not in acute distress. HEENT: Pupils are normal and reactive to light and accommodation. Conjunctivae are pink. Sclerae are anicteric. The patient is legally blind. NECK: No thyroid enlargement. LUNGS: Symmetric on both sides. Bilateral breath sounds present. Clear on auscultation. CARDIOVASCULAR SYSTEM: [place] at the sixth intercostal space, midclavicular line. S1 and S2 audible. No murmur or gallop. ABDOMEN: Normal in appearance. Soft and tympanic. No guarding. No rigidity. No hepatosplenomegaly. CENTRAL NERVOUS SYSTEM: The patient is minimally responsive to the verbal stimuli and painful stimuli. Sensory system is within normal limits. Motor system: The patient is bedridden for the last 3 months. EXTREMITIES: No cyanosis, no clubbing, and no edema. CURRENT MEDICATIONS: Include as follows: Heparin 3400 units IV 3 times a week during dialysis in the catheter in each port; Nephro-Andrea 1 tablet daily and Procrit 10,000 units 3 times a week, Thursday, , and Thursday; Protonix 40 mg IV daily; Zemplar 1 mcg three times a week. LABORATORY DATA: No new labs are available for today. As of 10/31, H and H of 9.1/28.8 and platelets 167. Sodium 138, potassium 4.5, chloride 100, CO2 of 29, BUN 22, creatinine 3.4, glucose 92, calcium 8.8, phosphorus 3.2, magnesium 2.0, total protein 5.9 and albumin is 2.9. ASSESSMENT: In summary, the patient is an 80-year-old elderly female with history of hypertension, rheumatoid arthritis, cardiomyopathy, thrombotic thrombocytopenic purpura, end-stage renal disease, on hemodialysis 3 times a week. 1. End-stage renal disease, continue hemodialysis three time a week, Thursday, and Thursday. 2. Anemia secondary to end-stage renal disease and also thrombotic thrombocytopenic purpura. 3. Cardiomyopathy. 4. Status post hyperkalemia. Check BMP today predialysis and continue to follow with rheumatology. Overall prognosis is poor. Thank you for allowing me to participate in your patient's care. Horacio Graham MD
[2016-11-01] MEDS: Paricalcitol 2 mcg/ml Inj IV SCH (17:20)
[2016-11-01] MEDS: Epoetin Alfa 10,000 unit/ml Dialysis IV SCH (17:21)
--- NOTE | 2016-11-01 18:47 | CP.PCM.PN ---
Subjective - Date & Time of Evaluation Date of Evaluation: 11/01/16 Time of Evaluation: 07:00 - Subjective Subjective: clinically same Objective - Vital Signs/Intake and Output Vital Signs (last 24 hours): Temp Pulse Resp BP Pulse Ox 99.5 F 70 18 143/84 989 H 11/01/16 15:30 11/01/16 18:31 11/01/16 18:31 11/01/16 18:31 11/01/16 18:31 Intake and Output: 11/01/16 11/01/16 06:59 18:59 Intake Total 200 100 Balance 200 100 - Medications Medications: Current Medications Epoetin Herve (Procrit) 10,000 unit IV TTS [facility] Last Admin: 11/01/16 17:21 Dose: 10,000 unit Heparin Sodium (Porcine) (Heparin) 3,400 units IVP TTS [facility] Last Admin: 11/01/16 17:19 Dose: 3,400 units Pantoprazole Sodium (Protonix Inj) 40 mg IVP DAILY [facility] Last Admin: 11/01/16 09:57 Dose: 40 mg Paricalcitol (Zemplar) 1 mcg IV TTS [facility] Last Admin: 11/01/16 17:20 Dose: 1 mcg Vitamin B Complex/Vit C/Folic Acid (Nephro-Andrea) 1 tab PO 0800 [facility] Last Admin: 11/01/16 08:56 Dose: 1 tab - Labs Labs: 10/31/16 07:20 10/31/16 07:20 PT 11.9 SECONDS (9.7-12.2) 09/20/16 06:23 INR 1.1 09/20/16 06:23 APTT 28 SECONDS (21-34) 09/20/16 06:23 - Constitutional Appears: Well - Head Exam Head Exam: ATRAUMATIC, NORMAL INSPECTION, NORMOCEPHALIC - Eye Exam Eye Exam: EOMI, Normal appearance, PERRL - ENT Exam ENT Exam: Mucous Membranes Moist, Normal Exam - Neck Exam Neck Exam: Full ROM, Normal Inspection. absent: Lymphadenopathy - Respiratory Exam Respiratory Exam: Decreased Breath Sounds - Cardiovascular Exam Cardiovascular Exam: REGULAR RHYTHM, +S1, +S2. absent: Murmur - GI/Abdominal Exam GI & Abdominal Exam: Diminished Bowel Sounds - Rectal Exam Rectal Exam: Deferred Assessment and Plan (1) Cardiac dysrhythmia Status: Acute (2) ESRD (end stage renal disease) on dialysis Status: Acute (3) Pulmonary edema Status: Acute (4) MARCO (acute kidney injury) Status: Acute (5) Acute respiratory failure requiring reintubation Status: Acute (6) Arthritis Status: Acute (7) CHF (congestive heart failure) Status: Acute (8) Dehydration Status: Acute (9) Dehydration Status: Acute (10) Diverticulosis Status: Acute (11) Elevated CEA Status: Acute (12) Hypertension Status: Acute (13) Inguinal lymphadenopathy Status: Acute (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
--- NOTE | 2016-11-01 19:06 | PN ---
LOCATION: [facility]. SUBJECTIVE: This is an 80-year-old female seen during the dialysis today, seen yesterday on 10/31/2016 for GI consultation requested by the admitting MD. Last chart was reviewed including workup limited to the most recently lab and radiology study result, current and the previous medication list, current and previous medical events. Case discussed with the staff at length. LABORATORY DATA: Most recent lab results showed hemoglobin of 9.1 with hematocrit 20.8 with normal platelet count, increased BUN of 22 and creatinine 3.4 with low albumin of 2.9, and total protein of 5.9. It had been reported that the patient has very poor oral intake, not communicating very well. PHYSICAL EXAMINATION GENERAL: An 80-year-old female. VITAL SIGNS: Afebrile with pulse of 82, respiratory rate 20 to 22, blood pressure 154/72. HEENT: Showed mildly pale dry mucous membrane, nonicteric sclerae. LUNGS: Few scattered crepitations, decreased air entry at bases. HEART: Positive S1 and S2. ABDOMEN: Soft, bowel sounds are present with slight distention. No mass or organomegaly. No rebound tenderness or guarding. EXTREMITIES: Edematous changes. No clubbing or cyanosis. AV shunt is in place. NEUROLOGIC: No neurological deficits, sensory or motor. IMPRESSION: 1. Dysphagia. Poor oral intake with hypoalbuminemia. 2. Malnutrition. 3. The patient is a candidate for PEG insertion. 4. Long history of thrombotic thrombocytopenic purpura. 5. Anemia most likely secondary to chronic disease versus less likely GI blood loss. 6. Chronic renal failure, on hemodialysis. 7. Electrolyte imbalance secondary to above. 8. Known history of but not limited to hypertension and cardiomyopathy. SUGGESTIONS: 1. Continue current management. 2. Central hyperalimentation. 3. The patient for potential PEG insertion after obtaining a consent from the family. Further recommendation to follow. Yasmine Oneill MD
[2016-11-02] MEDS: Multivitamin Vitamin B Complex (Nephro-Vite) Tab PO SCH (08:54)
--- NOTE | 2016-11-02 10:13 | PN ---
DATE: LOCATION: [facility], bed A. SUBJECTIVE: This is an 80-year-old female seen and examined in rounds without significant clinical changes or reported active bleeding with very poor oral intake. The entire chart is reviewed including, but not limited to the most recent lab and radiology study results, current and previous medication lists, current and previous medical events. Case discussed with the staff in the floor and still waiting for the family's consent. Most recent lab results showed hemoglobin of 9.1, hematocrit 28.8 with normal platelet count. Increased BUN 22 and creatinine 3.4. The patient on dialysis with low albumin and low total protein. PHYSICAL EXAMINATION: GENERAL: This is an 80-year-old female, [place] speaking. VITAL SIGNS: Low grade temperature of 99.4, pulse of 96, respiratory rate of 20-22, blood pressure 136/64. HEENT: Showed pale, dry oral mucous membrane. Nonicteric sclerae. LUNGS: Few scattered crepitations. Decreased air entry at bases. HEART: Positive S1 and S2 with increased rate. ABDOMEN: Soft, slight distention. No mass or organomegaly. No rebound tenderness or guarding. EXTREMITIES: Mild lower extremities edematous changes. No clubbing or cyanosis. AV shunt is in place for hemodialysis. NEUROLOGIC: No reported new neurological deficits, sensory or motor. Peripheral pulse are positive, but weak bilaterally. IMPRESSION: 1. Malnutrition with hypoalbuminemia and poor oral intake. 2. The patient is a candidate for percutaneous endoscopic gastrostomy insertion. 3. End-stage renal disease on hemodialysis. 4. Known history of cardiac arrhythmia. 5. Respiratory insufficiency with reported pulmonary edema before. 6. Osteoarthritis by history. 7. Known history of diverticulosis, hypertension, thrombotic thrombocytopenic purpura. 8. Reported history of thrombocytopenia before, none recently. 9. Anemia, most likely secondary to above. SUGGESTIONS: 1. Agree with your plan. 2. Awaiting family consent for potential PEG insertion at a.m. Yasmine Oneill MD cc: Yasmine Oneill MD
--- NOTE | 2016-11-02 13:58 | CP.PCM.PN ---
Subjective - Date & Time of Evaluation Date of Evaluation: 11/02/16 Time of Evaluation: 13:58 - Subjective Subjective: pt is seen and examined, follow up consult is dictated #[id number] Objective - Vital Signs/Intake and Output Vital Signs (last 24 hours): Temp Pulse Resp BP Pulse Ox 98 F 84 19 144/77 98 11/02/16 08:08 11/02/16 08:08 11/02/16 08:08 11/02/16 08:08 11/02/16 08:08 Intake and Output: 11/02/16 11/02/16 06:59 18:59 Intake Total 120 Balance 120 - Medications Medications: Current Medications Epoetin Herve (Procrit) 10,000 unit IV TTS [facility] Last Admin: 11/01/16 17:21 Dose: 10,000 unit Pantoprazole Sodium (Protonix Inj) 40 mg IVP DAILY [facility] Last Admin: 11/02/16 10:13 Dose: 40 mg Paricalcitol (Zemplar) 1 mcg IV TTS [facility] Last Admin: 11/01/16 17:20 Dose: 1 mcg Vitamin B Complex/Vit C/Folic Acid (Nephro-Andrea) 1 tab PO 0800 [facility] Last Admin: 11/02/16 08:54 Dose: 1 tab - Labs Labs: 10/31/16 07:20 10/31/16 07:20 PT 11.9 SECONDS (9.7-12.2) 09/20/16 06:23 INR 1.1 09/20/16 06:23 APTT 28 SECONDS (21-34) 09/20/16 06:23
--- NOTE | 2016-11-02 17:42 | CP.PCM.PN ---
Subjective - Date & Time of Evaluation Date of Evaluation: 11/02/16 Time of Evaluation: 07:00 - Subjective Subjective: clinically same Objective - Vital Signs/Intake and Output Vital Signs (last 24 hours): Temp Pulse Resp BP Pulse Ox 98.9 F 86 20 93/54 L 95 11/02/16 15:00 11/02/16 15:00 11/02/16 15:00 11/02/16 15:00 11/02/16 15:00 Intake and Output: 11/02/16 11/02/16 06:59 18:59 Intake Total 120 Balance 120 - Medications Medications: Current Medications Epoetin Herve (Procrit) 10,000 unit IV TTS [facility] Last Admin: 11/01/16 17:21 Dose: 10,000 unit Pantoprazole Sodium (Protonix Inj) 40 mg IVP DAILY [facility] Last Admin: 11/02/16 10:13 Dose: 40 mg Paricalcitol (Zemplar) 1 mcg IV TTS [facility] Last Admin: 11/01/16 17:20 Dose: 1 mcg Vitamin B Complex/Vit C/Folic Acid (Nephro-Andrea) 1 tab PO 0800 [facility] Last Admin: 11/02/16 08:54 Dose: 1 tab - Labs Labs: 10/31/16 07:20 10/31/16 07:20 PT 11.9 SECONDS (9.7-12.2) 09/20/16 06:23 INR 1.1 09/20/16 06:23 APTT 28 SECONDS (21-34) 09/20/16 06:23 - Constitutional Appears: Well - Head Exam Head Exam: ATRAUMATIC, NORMAL INSPECTION, NORMOCEPHALIC - Eye Exam Eye Exam: EOMI, Normal appearance, PERRL - ENT Exam ENT Exam: Mucous Membranes Moist, Normal Exam - Respiratory Exam Respiratory Exam: Decreased Breath Sounds - Cardiovascular Exam Cardiovascular Exam: REGULAR RHYTHM, +S1, +S2. absent: Murmur - GI/Abdominal Exam GI & Abdominal Exam: Diminished Bowel Sounds - Rectal Exam Rectal Exam: Deferred Assessment and Plan (1) Cardiac dysrhythmia Status: Acute (2) ESRD (end stage renal disease) on dialysis Status: Acute (3) Pulmonary edema Status: Acute (4) MARCO (acute kidney injury) Status: Acute (5) Acute respiratory failure requiring reintubation Status: Acute (6) Arthritis Status: Acute (7) CHF (congestive heart failure) Status: Acute (8) Dehydration Status: Acute (9) Dehydration Status: Acute (10) Diverticulosis Status: Acute (11) Elevated CEA Status: Acute (12) Hypertension Status: Acute (13) Inguinal lymphadenopathy Status: Acute (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
--- NOTE | 2016-11-02 17:46 | PN ---
FOLLOWUP RENAL CONSULTATION LOCATION: The patient is located in 254, bed A. REQUESTED BY: Dr. Kavon Ureña. REASON FOR FOLLOWUP: End-stage renal disease for continuation of hemodialysis. SUBJECTIVE: The patient is an 80-year-old elderly female with a history of hypertension, rheumatoid arthritis, cardiomyopathy, thrombocytopenia, TTP, and end-stage renal disease, on hemodialysis 3 times a week, on Thursday, , and Thursday. The patient underwent hemodialysis yesterday without any complications. The patient is not in acute distress, less p.o. intake in the last few days. Responds to simple commands. PHYSICAL EXAMINATION VITAL SIGNS: Blood pressure 144/70, pulse 84, respirations 19, temperature 98, oxygen saturation 98%, height 5 feet 2 inches and weight is 120 pounds. GENERAL: The patient is an 80 years old elderly female, moderately built, moderately nourished, not in distress. HEENT: Pupils are normally reactive to light and accommodation. Conjunctivae are pink. Sclerae are anicteric. Tongue is moist. Trachea is midline. LUNGS: Symmetric on both sides. Bilateral breath sounds present and clear to auscultation. CARDIOVASCULAR SYSTEM: [place] at the sixth intercostal space, midclavicular line. S1 and S2 audible. No murmur or gallop. ABDOMEN: Normal in appearance. Soft and tympanic. No guarding. No rigidity. No hepatosplenomegaly. CENTRAL NERVOUS SYSTEM: The patient today is a bit drowsy, arousable, responding to the simple commands. Sensory and motor system is grossly within normal limits. EXTREMITIES: No cyanosis, no clubbing. The patient is bedridden for the last 3 months. MEDICATIONS: Includes as follows: Nephro-Andrea 1 tablet daily, Procrit 10,000 units 3 times a week, Protonix 40 mg IV daily, and Zemplar 1 mcg 3 times a week. LABORATORY DATA: Include as follows: As of 10/31/2016, WBC 8.2, hemoglobin 9.1, hematocrit is 28.8, platelet 167. Sodium 138, potassium 4.3, chloride 100, CO2 of 29, BUN 26, creatinine 3.4, and glucose 92, calcium 8.8, phosphorus 3.2, magnesium 2.0. SUMMARY: The patient is an 80 years old, elderly female with hypertension, rheumatoid arthritis, thrombocytopenia, cardiomyopathy, and end-stage renal disease. ASSESSMENT AND PLAN: 1. End-stage renal disease. Continue hemodialysis 3 times a week, Thursday, , and Thursday. 2. Hypertension. Blood pressure is stable, not on any medication. 3. Cardiomyopathy. 4. Anemia secondary to renal failure and iron deficiency, and thrombotic thrombocytopenic purpura. 5. Thrombotic thrombocytopenic purpura, status post plasmapheresis x3 sessions, and the patient was given rituximab q. weekly x4 doses. The patient is stable from the renal standpoint and follow with social problems specialist for outpatient dialysis and for discharge planning. Thank you for allowing me to participate in your patient's care. Horacio Graham MD
--- NOTE | 2016-11-03 00:33 | CP.PCM.PN ---
Subjective - Date & Time of Evaluation Date of Evaluation: 10/31/16 Time of Evaluation: 10:00 - Subjective Subjective: Appears comfortable Objective - Vital Signs/Intake and Output Vital Signs (last 24 hours): Temp Pulse Resp BP Pulse Ox 98.9 F 86 20 93/54 L 95 11/02/16 15:00 11/02/16 15:00 11/02/16 15:00 11/02/16 15:00 11/02/16 15:00 Intake and Output: 11/02/16 11/03/16 18:59 06:59 Intake Total 360 Balance 360 - Medications Medications: Current Medications Epoetin Herve (Procrit) 10,000 unit IV TTS [facility] Last Admin: 11/01/16 17:21 Dose: 10,000 unit Pantoprazole Sodium (Protonix Inj) 40 mg IVP DAILY [facility] Last Admin: 11/02/16 10:13 Dose: 40 mg Paricalcitol (Zemplar) 1 mcg IV TTS [facility] Last Admin: 11/01/16 17:20 Dose: 1 mcg Vitamin B Complex/Vit C/Folic Acid (Nephro-Andrea) 1 tab PO 0800 [facility] Last Admin: 11/02/16 08:54 Dose: 1 tab - Labs Labs: 10/31/16 07:20 10/31/16 07:20 PT 11.9 SECONDS (9.7-12.2) 09/20/16 06:23 INR 1.1 09/20/16 06:23 APTT 28 SECONDS (21-34) 09/20/16 06:23 - Head Exam Head Exam: ATRAUMATIC - Eye Exam Eye Exam: Normal appearance - ENT Exam ENT Exam: Mucous Membranes Dry - Respiratory Exam Respiratory Exam: NORMAL BREATHING PATTERN - Cardiovascular Exam Cardiovascular Exam: +S1, +S2 - GI/Abdominal Exam GI & Abdominal Exam: Normal Bowel Sounds - Extremities Exam Extremities Exam: Normal Inspection Assessment and Plan (1) TTP (thrombotic thrombocytopenic purpura) Assessment & Plan: s/p plasmapheresis s/p Rituximab plt count normal Status: Acute (2) Anemia Assessment & Plan: renal disease and chronic disease Status: Acute
--- NOTE | 2016-11-03 00:34 | CP.PCM.PN ---
Subjective - Date & Time of Evaluation Date of Evaluation: 11/01/16 Time of Evaluation: 15:00 - Subjective Subjective: Appears comfortable. Objective - Vital Signs/Intake and Output Vital Signs (last 24 hours): Temp Pulse Resp BP Pulse Ox 98.9 F 86 20 93/54 L 95 11/02/16 15:00 11/02/16 15:00 11/02/16 15:00 11/02/16 15:00 11/02/16 15:00 Intake and Output: 11/02/16 11/03/16 18:59 06:59 Intake Total 360 Balance 360 - Medications Medications: Current Medications Epoetin Herve (Procrit) 10,000 unit IV TTS [facility] Last Admin: 11/01/16 17:21 Dose: 10,000 unit Pantoprazole Sodium (Protonix Inj) 40 mg IVP DAILY [facility] Last Admin: 11/02/16 10:13 Dose: 40 mg Paricalcitol (Zemplar) 1 mcg IV TTS [facility] Last Admin: 11/01/16 17:20 Dose: 1 mcg Vitamin B Complex/Vit C/Folic Acid (Nephro-Andrea) 1 tab PO 0800 [facility] Last Admin: 11/02/16 08:54 Dose: 1 tab - Labs Labs: 10/31/16 07:20 10/31/16 07:20 PT 11.9 SECONDS (9.7-12.2) 09/20/16 06:23 INR 1.1 09/20/16 06:23 APTT 28 SECONDS (21-34) 09/20/16 06:23 - Head Exam Head Exam: ATRAUMATIC - Eye Exam Eye Exam: Normal appearance - ENT Exam ENT Exam: Mucous Membranes Dry - Respiratory Exam Respiratory Exam: NORMAL BREATHING PATTERN - Cardiovascular Exam Cardiovascular Exam: +S1, +S2 - GI/Abdominal Exam GI & Abdominal Exam: Normal Bowel Sounds - Extremities Exam Extremities Exam: Normal Inspection Assessment and Plan (1) TTP (thrombotic thrombocytopenic purpura) Assessment & Plan: s/p plasmapheresis s/p Rituximab resolved Status: Acute (2) Anemia Assessment & Plan: chronic disease and renal disease Status: Acute
--- NOTE | 2016-11-03 07:47 | PN ---
DATE: LOCATION: The patient is located in room 354, bed A. REQUESTED BY: Kavon Ureña MD REASON FOR FOLLOWUP: End-stage renal disease for continuation of hemodialysis. SUBJECTIVE: Mrs. Denise Garcia is an 80 years old elderly female with past medical history significant for longstanding hypertension, rheumatoid arthritis, cardiomyopathy, CHF, thrombocytopenia, TTP status post plasmapheresis x3 sessions with relapsing TTP, started on rituximab and status post rituximab q. weekly times 4 doses. The patient is hemodialysis dependent for the last 3 months. The patient is not in acute distress. No complaints. As per the patient's family, no significant improvement in mental status and slowly deteriorating. PHYSICAL EXAMINATION: VITAL SIGNS: Her vital signs as follows; her blood pressure 142/71, pulse 83, respirations 20, temperature 98.3 and saturation 94%. Her height 5 feet 2 inches and weight 120 pounds. GENERAL: Mrs. Denise Garcia is an 80 years old elderly female, moderately built, moderately nourished, not in distress. HEENT: Pupils are normally reactive to light. Conjunctivae are pink. Sclerae are anicteric. Legally blind. LUNGS: Symmetric on both sides. Bilateral breath sounds present. Clear on auscultation. CVS: [place] at the fifth intercostal space, midclavicular line. S1 and S2 audible. No murmur, no gallop. ABDOMEN: Normal in appearance. Soft and tympanic. No guarding. No rigidity. No hepatosplenomegaly. BRIDGE GANG WORKER: The patient is alert, awake, and oriented x3. Nonfocal neurologic examination. Cranial nerves II through XII grossly intact. Sensory and motor system is within normal limits. EXTREMITIES: No cyanosis, no clubbing, no edema. Sensory and motor system is grossly within normal limits. The patient is bedridden for the last 3 months. CURRENT MEDICATIONS: As follows; heparin 1700 units in each port of the PermCath, Nephro-Andrea one tablet daily, Procrit 10,000 units 3 times a week, and Protonix 40 mg IV daily, Zemplar 1 mcg IV 3 times a week. LABORATORY DATA: As of 10/31/2016, WBC 8.2, hemoglobin of 9.1, hematocrit is 28.8, and platelets are 167. Sodium is 138, potassium is 4.5, chloride is 100, CO2 is 29, BUN is 22, and creatinine 3.4. Glucose is 92, calcium is 8.8 and magnesium 2.0. Total bilirubin 0.5, AST is 31, ALT is 46, alkaline phosphatase is 103, total protein is 5.9 and albumin is 2.9. ASSESSMENT AND PLAN: In summary, Mrs. Denise Garcia is an 80 years old elderly female moderately built, moderately nourished with hypertension, rheumatoid arthritis, cardiomyopathy, end-stage renal disease, thrombocytopenia status post rituximab. 1. 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 The patient is on hemodialysis for the last 3 months, continue hemodialysis Thursday, and Thursday. 2. Hypertension, blood pressure stable. 3. Cardiomyopathy. 4. Anemia. 5. Thrombocytopenia. Platelets are stable at this time. Continue hemodialysis 3 times a week, Thursday, and Thursday. Followup with priming powder premix blender for further management and the patient is stable from the renal standpoint. Follow with social service for outpatient hemodialysis unit placement and further discharge planing. Horacio Graham MD
[2016-11-03] MEDS: Multivitamin Vitamin B Complex (Nephro-Vite) Tab PO SCH (08:02)
[2016-11-03] MEDS ORDERED: Lidocaine Hydrochloride 5 ML INJ ONE (13:42)
[2016-11-03] MEDS ORDERED: Propofol 10 mg/ml Inj (20 ML) ONE (13:42)
[2016-11-03] MEDS: metroNIDAZOLE IV 500 mg/100 ml 500 MG/100 ML BAG IVPB ONE ×2 (14:43→15:42)
--- NOTE | 2016-11-03 18:13 | CP.PCM.PN ---
Subjective - Date & Time of Evaluation Date of Evaluation: 11/03/16 Time of Evaluation: 07:00 - Subjective Subjective: clinically same Objective - Vital Signs/Intake and Output Vital Signs (last 24 hours): Temp Pulse Resp BP Pulse Ox 97.5 F L 71 20 143/65 95 11/03/16 16:10 11/03/16 16:10 11/03/16 16:10 11/03/16 16:10 11/03/16 16:10 Intake and Output: 11/03/16 11/03/16 06:59 18:59 Intake Total 0 50 Balance 0 50 - Medications Medications: Current Medications Epoetin Herve (Procrit) 10,000 unit IV TTS [facility] Last Admin: 11/01/16 17:21 Dose: 10,000 unit Pantoprazole Sodium (Protonix Inj) 40 mg IVP Q12H [facility] Paricalcitol (Zemplar) 1 mcg IV TTS [facility] Last Admin: 11/01/16 17:20 Dose: 1 mcg Vitamin B Complex/Vit C/Folic Acid (Nephro-Andrea) 1 tab PO 0800 [facility] Last Admin: 11/03/16 08:02 Dose: Not Given - Labs Labs: 10/31/16 07:20 10/31/16 07:20 PT 11.9 SECONDS (9.7-12.2) 09/20/16 06:23 INR 1.1 09/20/16 06:23 APTT 28 SECONDS (21-34) 09/20/16 06:23 - Constitutional Appears: Well - Head Exam Head Exam: ATRAUMATIC, NORMAL INSPECTION, NORMOCEPHALIC - Eye Exam Eye Exam: EOMI, Normal appearance, PERRL Pupil Exam: NORMAL ACCOMODATION, PERRL - ENT Exam ENT Exam: Mucous Membranes Moist, Normal Exam - Neck Exam Neck Exam: Full ROM, Normal Inspection. absent: Lymphadenopathy - Respiratory Exam Respiratory Exam: Decreased Breath Sounds - Cardiovascular Exam Cardiovascular Exam: REGULAR RHYTHM, +S1, +S2 - GI/Abdominal Exam GI & Abdominal Exam: Soft, Diminished Bowel Sounds - Rectal Exam Rectal Exam: Deferred Assessment and Plan (1) Cardiac dysrhythmia Status: Acute (2) ESRD (end stage renal disease) on dialysis Status: Acute (3) Pulmonary edema Status: Acute (4) MARCO (acute kidney injury) Status: Acute (5) Acute respiratory failure requiring reintubation Status: Acute (6) Arthritis Status: Acute (7) CHF (congestive heart failure) Status: Acute (8) Dehydration Status: Acute (9) Dehydration Status: Acute (10) Diverticulosis Status: Acute (11) Elevated CEA Status: Acute (12) Hypertension Status: Acute (13) Inguinal lymphadenopathy Status: Acute (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
--- NOTE | 2016-11-03 19:12 | CP.PCM.PN ---
Subjective - Date & Time of Evaluation Date of Evaluation: 11/03/16 Time of Evaluation: 19:12 - Subjective Subjective: pt is blair and examined, follow up consult is dictated#[id number] Objective - Vital Signs/Intake and Output Vital Signs (last 24 hours): Temp Pulse Resp BP Pulse Ox 97.8 F 65 20 123/75 95 11/03/16 18:24 11/03/16 18:24 11/03/16 18:24 11/03/16 18:24 11/03/16 16:10 Intake and Output: 11/03/16 11/04/16 18:59 06:59 Intake Total 50 Balance 50 - Medications Medications: Current Medications Epoetin Herve (Procrit) 10,000 unit IV TTS [facility]S AT [facility] Last Admin: 11/01/16 17:21 Dose: 10,000 unit Pantoprazole Sodium (Protonix Inj) 40 mg IVP Q12H [facility] 234 BEDS AT [facility] Paricalcitol (Zemplar) 1 mcg IV TTS [facility] Last Admin: 11/01/16 17:20 Dose: 1 mcg Vitamin B Complex/Vit C/Folic Acid (Nephro-Andrea) 1 tab PO 0800 [facility] Last Admin: 11/03/16 08:02 Dose: Not Given - Labs Labs: 10/31/16 07:20 10/31/16 07:20 PT 11.9 SECONDS (9.7-12.2) 09/20/16 06:23 INR 1.1 09/20/16 06:23 APTT 28 SECONDS (21-34) 09/20/16 06:23
--- NOTE | 2016-11-03 19:49 | CON ---
DATE: 10/31/2016 LOCATION: 354, from Dr. Oneill and . I was called for GI consultation by the admitting medical team. The patient is seen and fully examined on 10/31/2016 as requested by the medical staff in the presence of nursing staff. The entire chart was reviewed including but not limited to the most recent labs and radiology study results, current and the previous medication list, current and previous medical events with medication list as well as all the available current and the previous medical record. Case discussed at length with the staff. HISTORY OF PRESENT ILLNESS: This is an 80-year-old female, Ghanaian spoken with multiple excessive past medical history was reported to have very poor oral intake with recurrent lab results indicative of hypoalbuminemia, hypoproteinemia with underlying diagnosis of failure to thrive recently, for which I was called for GI consultation for potential PEG insertion The patient had been in the hospital for the last several weeks since 08/16/2016. PAST MEDICAL HISTORY: Including but not limited to hypertension, osteoarthritis, peptic ulcer disease, anemia, peripheral edema syndrome as well as chronic renal failure, on hemodialysis. FAMILY HISTORY: Noncontributory. SOCIAL HISTORY: No known recent history of cigarette smoking or alcohol intake. The patient is long-term resident. The patient is a very poor historian and all the information obtained from the medical records, medical staff, nursing staff as well as the patient's granddaughter. CURRENT MEDICATION: Medication list was reviewed. ALLERGIES TO MEDICATION: UNKNOWN. LABORATORY DATA: Most recent lab results showed hemoglobin of 9.1 with hematocrit 28.8, but normal platelet count. BUN is 22, creatinine 3.4. The patient on hemodialysis with low albumin of 2.9, total protein 5.9. Most recent radiology study results including abdominal and pelvic and transvaginal ultrasound done on 10/28/2016 report is seen. PHYSICAL EXAMINATION: GENERAL: An 80-year-old female who did not quickly respond to verbal stimuli, which could be secondary to language barrier. VITAL SIGNS: Afebrile with heart rate of 92, respiratory rate 20 to 22 with blood pressure 146/74. HEENT: Showed pale, dry oral mucous membrane. Nonicteric sclerae. LUNGS: Scattered crepitation. Decreased air entry at bases bilaterally. HEART: Positive S1 and S2 with increased rate. LYMPH NODES: No lymphadenitis or lymphadenopathy. ABDOMEN: Soft, slight generalized tenderness. No mass or organomegaly. No rebound tenderness or guarding. EXTREMITIES: Lower extremities with mild edematous changes. No clubbing or cyanosis. NEUROLOGIC: No reported new neurological deficits, sensory or motor. Peripheral pulses are present bilaterally, but weak. IMPRESSION: 1. Poor oral intake with failure to thrive. 2. Anemia. 3. End-stage renal disease. 4. Known history of hypertension. 5. Cardiomyopathy by history. 6. Reported diagnosis of thrombotic thrombocytopenic purpura. 7. Malnutrition with hypoalbuminemia, hypoproteinemia. SUGGESTIONS: 1. Agree with your plan. 2. Correct any underlying coagulopathy. 3. Central hyperalimentation to be adjusted by and nephrology aviation consultant on the case. 4. The patient to be scheduled for PEG insertion after receiving consent from the family and legal consent. We will follow up closely with you. Thank you for letting me participate in your patient's case management. Yasmine Oneill MD cc: Yasmine Oneill MD
--- NOTE | 2016-11-04 03:23 | PN ---
FOLLOW RENAL CONSULTATION DATE: LOCATION: The patient is located in room 354, bed A. REQUESTED BY: Kavon Ureña MD REASON FOR FOLLOWUP: End-stage renal disease for continuation of hemodialysis. SUBJECTIVE: Ms. Denise Garcia is an 80-year-old elderly female with history of longstanding hypertension, rheumatoid arthritis, cardiomyopathy, thrombocytopenia TTP, end-stage renal disease on hemodialysis 3 times a week status post plasmapheresis x3 sessions and status post Rituximab q. weekly x4 doses. The patient also underwent PEG tube placement due to decrease p.o. intake, not in distress. Responding one or two commands after repeated verbal stimuli. Not in distress. PHYSICAL EXAMINATION: GENERAL: Ms. Denise Garcia is an 80-year-old elderly female, moderately build, moderately nourished not in distress. VITAL SIGNS: Blood pressure 123/75, pulse 65, respirations 20, temperature 97.8, saturation 95%, height 5 feet 2 inches, weight is 120 pounds. HEENT: Pupils are normal and reactive to light and accommodation. Conjunctivae are pink. Sclerae are anicteric. The patient is legally blind. LUNGS: Symmetric on both sides. Bilateral breath sounds present. Clear on auscultation. CARDIOVASCULAR SYSTEM: [place] at the sixth intercostal space, midclavicular line. S1 and S2 audible. No murmur or gallop. ABDOMEN: Normal in appearance. Soft and tympanic. No guarding. Status post PEG tube placement. SENSORY MOTOR SYSTEM: The patient is bedridden for the last three months. Sensory is grossly intact. EXTREMITIES: No cyanosis, no clubbing, no edema. CURRENT MEDICATIONS: Include vitamin B complex with folic acid, Nephro-Andrea 1 tablet daily, Procrit 10,000 units 3 times a week, Protonix 40 mg IV q. 12 hours and Zemplar 1 mcg 3 times a week. LABORATORY DATA: No new labs are available for today. ASSESSMENT: In summary, Ms. Denise Garcia is an 80-year-old elderly female with hypertension, rheumatoid arthritis, cardiomyopathy, thrombocytopenia, thrombotic thrombocytopenic purpura, end-stage renal disease on hemodialysis. 1. 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 2. Anemia secondary to renal failure and iron deficiency and thrombotic thrombocytopenic purpura. 3. Cardiomyopathy. 4. Altered mental status, etiology is not clear. 5. Followup with hematology and consult neurology evaluation. We will follow with you. Repeat BMP and CBC during dialysis. Thank you for allowing me to participate in our patient's care. Horacio Graham MD
[2016-11-04 07:52] LABS: BASO % 0.5 % (0.0-2.0); EOS # 0.1 K/uL (0.0-0.7); EOS % 1.3 % (0.0-4.0); HEMATOCRIT 29.7 % (34.0-47.0); LYMPH # 0.8 K/uL (1.0-4.3); LYMPH % 11.1 % (20.0-40.0); MEAN CELL VOLUME 87.8 fL (81.0-99.0); MEAN CORPUSCULAR HEMOGLOBIN 27.9 pg (27.0-31.0); MEAN CORPUSCULAR HGB CONC 31.8 g/dL (33.0-37.0); MEAN PLATELET VOLUME 9.3 fL (7.2-11.7); MONO # 1.2 K/uL (0.0-0.8); MONO % 17.3 % (0.0-10.0); NRBC % 0.1 % (0.0-2.0); RED CELL DISTRIBUTION WIDTH 24.9 % (11.5-14.5); WHITE BLOOD COUNT 7.2 K/uL (4.8-10.8)
[2016-11-04] MEDS: Multivitamin Vitamin B Complex (Nephro-Vite) Tab PO SCH (08:00)
[2016-11-04 08:25] LABS: POTASSIUM 4.9 mmol/L (3.6-5.2)
[2016-11-04 08:28] LABS: BILIRUBIN,TOTAL 0.6 mg/dL (0.2-1.3); CALCIUM 9.5 mg/dl (8.6-10.4); TOTAL PROTEIN 6.4 g/dL (6.3-8.3)
--- NOTE | 2016-11-04 11:30 | CP.PCM.PN ---
Subjective - Date & Time of Evaluation Date of Evaluation: 11/04/16 Time of Evaluation: 11:29 - Subjective Subjective: pt is seen and examined, follow up consult is dictated #[id number] seen in hd, uf 1.5 lit Objective - Vital Signs/Intake and Output Vital Signs (last 24 hours): Temp Pulse Resp BP Pulse Ox 99.4 F 92 H 16 150/79 95 11/04/16 11:21 11/04/16 11:21 11/04/16 11:21 11/04/16 11:21 11/04/16 09:53 Intake and Output: 11/04/16 11/04/16 06:59 18:59 Intake Total 415 Output Total 1 Balance 414 - Medications Medications: Current Medications Epoetin Herve (Procrit) 10,000 unit IV TTS [facility] Last Admin: 11/01/16 17:21 Dose: 10,000 unit Pantoprazole Sodium (Protonix Inj) 40 mg IVP Q12H [facility] Last Admin: 11/04/16 10:14 Dose: 40 mg Paricalcitol (Zemplar) 1 mcg IV TTS [facility] Last Admin: 11/01/16 17:20 Dose: 1 mcg Vitamin B Complex/Vit C/Folic Acid (Nephro-Andrea) 1 tab PO 0800 [facility] Last Admin: 11/04/16 08:00 Dose: Not Given - Labs Labs: 11/04/16 07:45 11/04/16 07:45 PT 11.7 SECONDS (9.7-12.2) 11/04/16 07:45 INR 1.0 11/04/16 07:45 APTT 25 SECONDS (21-34) 11/04/16 07:45
[2016-11-04] MEDS: Epoetin Alfa 10,000 unit/ml Dialysis IV SCH (11:37)
[2016-11-04] MEDS: Paricalcitol 2 mcg/ml Inj IV SCH (11:40)
--- NOTE | 2016-11-04 20:01 | CP.PCM.PN ---
Subjective - Date & Time of Evaluation Date of Evaluation: 11/04/16 Time of Evaluation: 07:00 - Subjective Subjective: clinically same Objective - Vital Signs/Intake and Output Vital Signs (last 24 hours): Temp Pulse Resp BP Pulse Ox 98.8 F 95 H 20 156/71 H 94 L 11/04/16 15:15 11/04/16 15:15 11/04/16 15:15 11/04/16 15:15 11/04/16 15:15 Intake and Output: 11/04/16 11/05/16 18:59 06:59 Intake Total 320 Balance 320 - Medications Medications: Current Medications Epoetin Herve (Procrit) 10,000 unit IV TTS [facility] Last Admin: 11/04/16 11:37 Dose: 10,000 unit Pantoprazole Sodium (Protonix Inj) 40 mg IVP Q12H [facility] Last Admin: 11/04/16 10:14 Dose: 40 mg Paricalcitol (Zemplar) 1 mcg IV TTS [facility] Last Admin: 11/04/16 11:40 Dose: 1 mcg Vitamin B Complex/Vit C/Folic Acid (Nephro-Andrea) 1 tab PO 0800 [facility] Last Admin: 11/04/16 08:00 Dose: Not Given - Labs Labs: 11/04/16 07:45 11/04/16 07:45 PT 11.7 SECONDS (9.7-12.2) 11/04/16 07:45 INR 1.0 11/04/16 07:45 APTT 37 SECONDS (21-34) H D 11/04/16 13:51 - Constitutional Appears: Well - Head Exam Head Exam: ATRAUMATIC, NORMAL INSPECTION, NORMOCEPHALIC - Eye Exam Eye Exam: EOMI, Normal appearance, PERRL Pupil Exam: NORMAL ACCOMODATION, PERRL - ENT Exam ENT Exam: Mucous Membranes Moist, Normal Exam - Neck Exam Neck Exam: Full ROM, Normal Inspection. absent: Lymphadenopathy - Respiratory Exam Respiratory Exam: Decreased Breath Sounds - Cardiovascular Exam Cardiovascular Exam: REGULAR RHYTHM, +S1, +S2 - GI/Abdominal Exam GI & Abdominal Exam: Soft, Diminished Bowel Sounds - Rectal Exam Rectal Exam: Deferred Assessment and Plan (1) Cardiac dysrhythmia Status: Acute (2) ESRD (end stage renal disease) on dialysis Status: Acute (3) Pulmonary edema Status: Acute (4) MARCO (acute kidney injury) Status: Acute (5) Acute respiratory failure requiring reintubation Status: Acute (6) Arthritis Status: Acute (7) CHF (congestive heart failure) Status: Acute (8) Dehydration Status: Acute (9) Dehydration Status: Acute (10) Diverticulosis Status: Acute (11) Elevated CEA Status: Acute (12) Hypertension Status: Acute (13) Inguinal lymphadenopathy Status: Acute (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
--- NOTE | 2016-11-04 22:32 | PN ---
FOLLOWUP RENAL CONSULTATION LOCATION: The patient is located in [facility], bed A. REQUESTED BY: Dr. Kavon Ureña. REASON FOR FOLLOWUP: End-stage renal disease, continuation of hemodialysis. SUBJECTIVE: Mrs. Denise Garcia is an 80-year-old elderly female with history of hypertension, rheumatoid arthritis, cardiomyopathy, thrombocytopenia, anemia, thrombotic thrombocytopenic purpura, end-stage renal disease, on hemodialysis 3 times a week for the last 3 months. She was seen and examined during dialysis and not in distress. The patient is being dialyzed during my examination and ultrafiltration goal was about 1.5 liters. The patient opens eyes to verbal stimuli. Not responding to any other verbal commands. PHYSICAL EXAMINATION: VITAL SIGNS: As follows: Blood pressure 153/87, pulse 89, respirations about 20 and temperature 97.6. GENERAL: Mrs. Denise Garcia is an 80-year-old elderly female, moderately build, moderately nourished not in acute distress. HEENT: Pupils are normal and reacting to light. Conjunctiva is pink. Sclerae are anicteric. Tongue is moist. Trachea is midline. LUNGS: Symmetric on both sides. Bilateral breath sounds present. Clear on auscultation. CARDIOVASCULAR SYSTEM: [place] at the sixth intercostal space, midclavicular line. S1 and S2 audible. No murmur or gallop. ABDOMEN: Normal in appearance. Soft and tympanic. No guarding. No rigidity. No hepatosplenomegaly. GEOSPATIAL ANALYST: Opens eyes to verbal stimuli. EXTREMITIES: No cyanosis. No clubbing. No edema. SENSORY AND MOTOR SYSTEMS: Sensory is normal. Motor system, the patient is bedridden for the last 3 months. CURRENT MEDICATIONS: Include as follows, Nephro-Andrea 1 tablet daily, Procrit 10,000 units 3 times a week, Protonix 40 mg IV q. 12 hours and Zemplar 1 mcg 3 times a week. LABORATORY DATA: Includes as follows: As of 11/04/2016, WBC 7.2, hemoglobin 9.5, hematocrit 29.7 and platelet 189. PT 11.7, PTT 25. Sodium 137, potassium 4.9, chloride 95, CO2 29, BUN 38, creatinine 5.7, glucose is 107, calcium 9.5. Total bilirubin 0.6, AST 29, ALT 35, alkaline phosphatase 87, total protein is 6.4, albumin is 3.1. ASSESSMENT AND PLAN: In , Mrs. Denise Garcia is an 80-year-old elderly female with hypertension, rheumatoid arthritis, congestive heart failure, cardiomyopathy, status post respiratory failure and status post extubation x2, anemia, thrombocytopenia, thrombotic thrombocytopenic purpura, renal failure, on hemodialysis 3 times a week for the last 3 months. 1. 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 No evidence of improvement in the renal function, most likely end-stage renal disease. Continue hemodialysis 3 times a week. Actually that has started in. The patient was seen during dialysis and stable hemodialysis. Statement ultrafiltration goal was about 1.5 liters. 2. Hypertension. Blood pressure stable, not on any medication. 3. Cardiomyopathy, stable at this time. 4. Anemia secondary to renal failure and thrombotic thrombocytopenic purpura. 5. Thrombotic thrombocytopenic purpura, platelets are normal; at this time, status post Rituximab q. weekly x4 doses. 6. Status post PEG tube placement for decreased p.o. intake. The patient is stable from the renal stand point. Thank you for allowing me to participate in your patient's care. Horacio Graham MD
[2016-11-05] MEDS: Multivitamin Vitamin B Complex (Nephro-Vite) Tab PO SCH (08:00)
--- NOTE | 2016-11-05 11:55 | CP.PCM.PN ---
Subjective - Date & Time of Evaluation Date of Evaluation: 11/03/16 Time of Evaluation: 19:00 - Subjective Subjective: Appears comfortable Objective - Vital Signs/Intake and Output Vital Signs (last 24 hours): Temp Pulse Resp BP Pulse Ox 97.9 F 88 20 134/70 96 11/05/16 07:24 11/05/16 07:24 11/05/16 07:24 11/05/16 07:24 11/05/16 07:24 Intake and Output: 11/05/16 11/05/16 06:59 18:59 Intake Total 455 580 Output Total 2 Balance 453 580 - Medications Medications: Current Medications Epoetin Herve (Procrit) 10,000 unit IV TTS [facility] Last Admin: 11/04/16 11:37 Dose: 10,000 unit Pantoprazole Sodium (Protonix Inj) 40 mg IVP Q12H [facility] Last Admin: 11/05/16 10:00 Dose: 40 mg Paricalcitol (Zemplar) 1 mcg IV TTS [facility] Last Admin: 11/04/16 11:40 Dose: 1 mcg Vitamin B Complex/Vit C/Folic Acid (Nephro-Andrea) 1 tab PO 0800 [facility] Last Admin: 11/05/16 08:00 Dose: Not Given - Labs Labs: 11/04/16 07:45 11/04/16 07:45 PT 11.7 SECONDS (9.7-12.2) 11/04/16 07:45 INR 1.0 11/04/16 07:45 APTT 37 SECONDS (21-34) H D 11/04/16 13:51 - Head Exam Head Exam: ATRAUMATIC - Eye Exam Eye Exam: Normal appearance - ENT Exam ENT Exam: Mucous Membranes Dry - Respiratory Exam Respiratory Exam: NORMAL BREATHING PATTERN - Cardiovascular Exam Cardiovascular Exam: +S1, +S2 - GI/Abdominal Exam GI & Abdominal Exam: Normal Bowel Sounds Assessment and Plan (1) TTP (thrombotic thrombocytopenic purpura) Assessment & Plan: appears resolved s/p plasmapheresis s/p Rituximab Status: Acute (2) Anemia Assessment & Plan: anemia of CKD Status: Acute
--- NOTE | 2016-11-05 11:56 | CP.PCM.PN ---
Subjective - Date & Time of Evaluation Date of Evaluation: 11/04/16 Time of Evaluation: 14:25 - Subjective Subjective: Appears comfortable Objective - Vital Signs/Intake and Output Vital Signs (last 24 hours): Temp Pulse Resp BP Pulse Ox 97.9 F 88 20 134/70 96 11/05/16 07:24 11/05/16 07:24 11/05/16 07:24 11/05/16 07:24 11/05/16 07:24 Intake and Output: 11/05/16 11/05/16 06:59 18:59 Intake Total 455 580 Output Total 2 Balance 453 580 - Medications Medications: Current Medications Epoetin Herve (Procrit) 10,000 unit IV TTS [facility] Last Admin: 11/04/16 11:37 Dose: 10,000 unit Pantoprazole Sodium (Protonix Inj) 40 mg IVP Q12H [facility] Last Admin: 11/05/16 10:00 Dose: 40 mg Paricalcitol (Zemplar) 1 mcg IV TTS [facility] Last Admin: 11/04/16 11:40 Dose: 1 mcg Vitamin B Complex/Vit C/Folic Acid (Nephro-Andrea) 1 tab PO 0800 [facility] Last Admin: 11/05/16 08:00 Dose: Not Given - Labs Labs: 11/04/16 07:45 11/04/16 07:45 PT 11.7 SECONDS (9.7-12.2) 11/04/16 07:45 INR 1.0 11/04/16 07:45 APTT 37 SECONDS (21-34) H D 11/04/16 13:51 - Head Exam Head Exam: ATRAUMATIC - Eye Exam Eye Exam: Normal appearance - ENT Exam ENT Exam: Mucous Membranes Dry - Respiratory Exam Respiratory Exam: NORMAL BREATHING PATTERN - Cardiovascular Exam Cardiovascular Exam: +S1, +S2 - GI/Abdominal Exam GI & Abdominal Exam: Normal Bowel Sounds Assessment and Plan (1) Anemia Assessment & Plan: anemia of CKD Status: Acute (2) TTP (thrombotic thrombocytopenic purpura) Assessment & Plan: resolved s/p plasmapheresis s/p rituximab Status: Acute
--- NOTE | 2016-11-05 11:57 | CP.PCM.PN ---
Subjective - Date & Time of Evaluation Date of Evaluation: 11/05/16 Time of Evaluation: 11:00 - Subjective Subjective: Appears comfortable Objective - Vital Signs/Intake and Output Vital Signs (last 24 hours): Temp Pulse Resp BP Pulse Ox 97.9 F 88 20 134/70 96 11/05/16 07:24 11/05/16 07:24 11/05/16 07:24 11/05/16 07:24 11/05/16 07:24 Intake and Output: 11/05/16 11/05/16 06:59 18:59 Intake Total 455 580 Output Total 2 Balance 453 580 - Medications Medications: Current Medications Epoetin Herve (Procrit) 10,000 unit IV TTS [facility] Last Admin: 11/04/16 11:37 Dose: 10,000 unit Pantoprazole Sodium (Protonix Inj) 40 mg IVP Q12H [facility] Last Admin: 11/05/16 10:00 Dose: 40 mg Paricalcitol (Zemplar) 1 mcg IV TTS [facility] Last Admin: 11/04/16 11:40 Dose: 1 mcg Vitamin B Complex/Vit C/Folic Acid (Nephro-Andrea) 1 tab PO 0800 [facility] Last Admin: 11/05/16 08:00 Dose: Not Given - Labs Labs: 11/04/16 07:45 11/04/16 07:45 PT 11.7 SECONDS (9.7-12.2) 11/04/16 07:45 INR 1.0 11/04/16 07:45 APTT 37 SECONDS (21-34) H D 11/04/16 13:51 - Head Exam Head Exam: ATRAUMATIC - Eye Exam Eye Exam: Normal appearance - ENT Exam ENT Exam: Mucous Membranes Dry - Respiratory Exam Respiratory Exam: NORMAL BREATHING PATTERN - Cardiovascular Exam Cardiovascular Exam: +S1, +S2 - GI/Abdominal Exam GI & Abdominal Exam: Normal Bowel Sounds Assessment and Plan (1) Anemia Assessment & Plan: anemia of CKD Status: Acute (2) TTP (thrombotic thrombocytopenic purpura) Assessment & Plan: resolved s/p plasmapheresis s/p rituximab Status: Acute
--- NOTE | 2016-11-05 17:59 | PN ---
DATE: LOCATION: [facility], bed A. SUBJECTIVE: This is an 80-year-old female post PEG insertion, seen and examined in rounds. All the information obtained from the nursing staff and family members without any reported active bleeding, tolerating PEG, sleeping well with today's report of blood test is still pending. The patient still has low hemoglobin and hematocrit, but normal platelet count with mild increase of PTT and increased blood glucose level with low albumin. PHYSICAL EXAMINATION: GENERAL: An 80-year-old female. VITAL SIGNS: Afebrile with pulse of 84, respiratory rate 20 to 22, and blood pressure of 142/74. HEENT: Showed pale, dry oral mucous membrane. Nonicteric sclerae. LUNGS: Few scattered crepitation. Decreased air entry at bases. HEART: Positive S1 and S2. ABDOMEN: Soft, bowel sound are present. PEG tube is in place without evidence of anterior abdominal wall cellulitis with clean dressing and clean wound. EXTREMITIES: Without significant clubbing, cyanosis or edema. NEUROLOGIC: No reported new neurological deficits, sensory or motor. IMPRESSION: 1. Poor oral intake, failure to thrive. 2. Dysphagia. 3. Malnutrition with hypoalbuminemia. 5. Status post percutaneous endoscopic gastrostomy insertion. 6. History of thrombotic thrombocytopenic purpura. 7. Anemia, most likely secondary to above, improving. 8. Known history of chronic renal failure, on hemodialysis. 9. Known history of hypertension with cardiomyopathy. SUGGESTIONS: 1. Continue current management. 2. Increase rate of feeding as tolerated. Further recommendation to follow. Yasmine Oneill MD cc: Yasmine Oneill MD
--- NOTE | 2016-11-05 18:49 | CP.PCM.PN ---
Subjective - Date & Time of Evaluation Date of Evaluation: 11/05/16 Time of Evaluation: 07:00 - Subjective Subjective: clinically same Objective - Vital Signs/Intake and Output Vital Signs (last 24 hours): Temp Pulse Resp BP Pulse Ox 99.9 F H 101 H 20 161/85 H 94 L 11/05/16 15:00 11/05/16 15:00 11/05/16 15:00 11/05/16 15:00 11/05/16 15:00 Intake and Output: 11/05/16 11/05/16 06:59 18:59 Intake Total 455 1080 Output Total 2 Balance 453 1080 - Medications Medications: Current Medications Epoetin Herve (Procrit) 10,000 unit IV TTS [facility] Last Admin: 11/04/16 11:37 Dose: 10,000 unit Pantoprazole Sodium (Protonix Inj) 40 mg IVP Q12H [facility] Last Admin: 11/05/16 10:00 Dose: 40 mg Paricalcitol (Zemplar) 1 mcg IV TTS [facility] Last Admin: 11/04/16 11:40 Dose: 1 mcg Vitamin B Complex/Vit C/Folic Acid (Nephro-Andrea) 1 tab PO 0800 [facility] Last Admin: 11/05/16 08:00 Dose: Not Given - Labs Labs: 11/04/16 07:45 11/04/16 07:45 PT 11.7 SECONDS (9.7-12.2) 11/04/16 07:45 INR 1.0 11/04/16 07:45 APTT 37 SECONDS (21-34) H D 11/04/16 13:51 - Constitutional Appears: Well - Head Exam Head Exam: ATRAUMATIC, NORMAL INSPECTION, NORMOCEPHALIC - Eye Exam Eye Exam: EOMI, Normal appearance, PERRL Pupil Exam: NORMAL ACCOMODATION, PERRL - ENT Exam ENT Exam: Mucous Membranes Moist, Normal Exam - Neck Exam Neck Exam: Full ROM, Normal Inspection. absent: Lymphadenopathy - Respiratory Exam Respiratory Exam: Decreased Breath Sounds - Cardiovascular Exam Cardiovascular Exam: REGULAR RHYTHM, +S1, +S2 - GI/Abdominal Exam GI & Abdominal Exam: Soft, Diminished Bowel Sounds - Rectal Exam Rectal Exam: Deferred Assessment and Plan (1) Cardiac dysrhythmia Status: Acute (2) ESRD (end stage renal disease) on dialysis Status: Acute (3) Pulmonary edema Status: Acute (4) MARCO (acute kidney injury) Status: Acute (5) Acute respiratory failure requiring reintubation Status: Acute (6) Arthritis Status: Acute (7) CHF (congestive heart failure) Status: Acute (8) Dehydration Status: Acute (9) Dehydration Status: Acute (10) Diverticulosis Status: Acute (11) Elevated CEA Status: Acute (12) Hypertension Status: Acute (13) Inguinal lymphadenopathy Status: Acute (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
--- NOTE | 2016-11-05 19:10 | CP.PCM.PN ---
Subjective - Date & Time of Evaluation Date of Evaluation: 11/05/16 Time of Evaluation: 19:10 - Subjective Subjective: pt is seen and examined, follow up consult is dictated #[id number] Objective - Vital Signs/Intake and Output Vital Signs (last 24 hours): Temp Pulse Resp BP Pulse Ox 99.9 F H 101 H 20 161/85 H 94 L 11/05/16 15:00 11/05/16 15:00 11/05/16 15:00 11/05/16 15:00 11/05/16 15:00 Intake and Output: 11/05/16 11/06/16 18:59 06:59 Intake Total 1080 Balance 1080 - Medications Medications: Current Medications Epoetin Herve (Procrit) 10,000 unit IV TTS [facility] Last Admin: 11/04/16 11:37 Dose: 10,000 unit Pantoprazole Sodium (Protonix Inj) 40 mg IVP Q12H [facility] Last Admin: 11/05/16 10:00 Dose: 40 mg Paricalcitol (Zemplar) 1 mcg IV TTS [facility] Last Admin: 11/04/16 11:40 Dose: 1 mcg Vitamin B Complex/Vit C/Folic Acid (Nephro-Andrea) 1 tab PO 0800 [facility] Last Admin: 11/05/16 08:00 Dose: Not Given - Labs Labs: 11/04/16 07:45 11/04/16 07:45 PT 11.7 SECONDS (9.7-12.2) 11/04/16 07:45 INR 1.0 11/04/16 07:45 APTT 37 SECONDS (21-34) H D 11/04/16 13:51
--- NOTE | 2016-11-06 07:51 | PN ---
FOLLOWUP RENAL CONSULTATION DATE: 11/05/16 LOCATION: The patient is located in room 354, bed A. REQUESTED BY: Kavon Ureña MD REASON FOR FOLLOWUP: End-stage renal disease, continuation of hemodialysis. HISTORY OF PRESENT ILLNESS: Ms. Denise Garcia is an 81 years old elderly female with a history of longstanding hypertension, rheumatoid arthritis, cardiomyopathy, thrombocytopenia, thrombotic thrombocytopenic purpura, end-stage renal disease, on hemodialysis for the last 3 months, and bedridden. No significant improvement in patient's renal condition or in mental status and bedridden for the last 3 months, status post PEG tube placement 2 days ago. The patient is not in distress, barely responding to verbal stimuli. PHYSICAL EXAMINATION: VITAL SIGNS: As follows; blood pressure 161/85, pulse 101, respirations 20, temperature 99.9, saturation 94%, height 5 feet 2 inches, and weight is 120 pounds. GENERAL: Ms. Denise Garcia is an 80 years old elderly female, moderately built, moderately nourished, and not in distress. HEENT: Pupils are normally reactive to light. Conjunctivae are pink. Sclerae are anicteric. No thyroid enlargement. Trachea is midline. LUNGS: Symmetric on both sides. Bilateral breath sounds present. No crackles. CARDIOVASCULAR: [place] at the sixth intercostal space, midclavicular line. S1 and S2 audible. No murmur or gallop. ABDOMEN: Normal in appearance, status post PEG tube placement. Soft and tympanic. Mild tenderness in the epigastric region. No guarding. No rigidity. No hepatosplenomegaly. CENTRAL NERVOUS SYSTEM: The patient is responding to painful stimuli and not responding to verbal stimuli. SENSORY SYSTEMS: Grossly within normal limits. MOTOR SYSTEMS: Bedridden for the last 3 months. EXTREMITIES: No cyanosis. No clubbing. No edema. CURRENT MEDICATIONS: Include as follows; Nephro-Andrea 1 tablet daily, Epogen 10, 000 units 3 times a week, Protonix 40 mg IV q.12 hours, and Zemplar 1 mcg 3 times a week. LABORATORY DATA: As of 11/04/2016; WBC 7.3, hemoglobin 9.5, hematocrit 29.7, and platelets 189. PT 11.7 and PTT 25. Sodium 137, potassium 4.9, chloride 95, CO2 of 29, BUN 38, creatinine 5.7, glucose 107, calcium 9.5, total bilirubin 0.6, AST 29, ALT 35, alkaline phosphatase 87, total protein 6.4, and albumin 3.1. ASSESSMENT: In , Ms. Denise Garcia is an 80 years old elderly female with hypertension, rheumatoid arthritis, cardiomyopathy, thrombotic thrombocytopenic purpura, anemia, and renal failure, on hemodialysis. 1. 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 No significant improvement in the renal function. Continue hemodialysis 3 times a week, Thursday, , and Thursday. 2. Hypertension. Blood pressure is stable, off antihypertensive medication. 3. Cardiomyopathy. 4. Hypertension. 5. Anemia secondary to renal failure and thrombotic thrombocytopenic purpura. 6. Thrombotic thrombocytopenic purpura, status post on Rituximab every weekly x4. Platelets are under control. Continue our current management. Awaiting for the discharge to home and awaiting for the hospital bed. Overall prognosis extremely poor. Discussed with the patient's granddaughter and family at bedside regarding the overall poor prognosis and we will follow with you. Thank you for allowing me to participate in your patient's care. Horacio Graham MD
[2016-11-06] MEDS: Multivitamin Vitamin B Complex (Nephro-Vite) Tab PO SCH (08:03)
--- NOTE | 2016-11-06 13:14 | CP.PCM.PN ---
Subjective - Date & Time of Evaluation Date of Evaluation: 11/06/16 Time of Evaluation: 13:14 - Subjective Subjective: non verbal, lethargic. Objective - Vital Signs/Intake and Output Vital Signs (last 24 hours): Temp Pulse Resp BP Pulse Ox 99.3 F 101 H 16 144/87 95 11/06/16 09:45 11/06/16 11:48 11/06/16 11:48 11/06/16 11:48 11/06/16 11:48 Intake and Output: 11/06/16 11/06/16 06:59 18:59 Intake Total 480 Balance 480 - Medications Medications: Current Medications Epoetin Herve (Procrit) 10,000 unit IV TTS [facility] Last Admin: 11/04/16 11:37 Dose: 10,000 unit Pantoprazole Sodium (Protonix Inj) 40 mg IVP Q12H [facility] Last Admin: 11/06/16 10:42 Dose: 40 mg Paricalcitol (Zemplar) 1 mcg IV TTS [facility] Last Admin: 11/04/16 11:40 Dose: 1 mcg Vitamin B Complex/Vit C/Folic Acid (Nephro-Andrea) 1 tab PO 0800 [facility] Last Admin: 11/06/16 08:03 Dose: Not Given - Labs Labs: 11/04/16 07:45 11/04/16 07:45 PT 11.7 SECONDS (9.7-12.2) 11/04/16 07:45 INR 1.0 11/04/16 07:45 APTT 37 SECONDS (21-34) H D 11/04/16 13:51 Assessment and Plan - Assessment and Plan (Free Text) Assessment: Patient is seen and examined in the room. Very lethargic, bedridden, needs total care. Patient requires a semi-electric hospital bed and geloverlay because she is none WB and requires frequent repositioning to prevent skin breakdown. Pt is bed bound. Pt has new PEG and must be elevated more than 40 degrees, due to the following diagnosis CHF, COPD and risk for aspiration.
--- NOTE | 2016-11-06 16:56 | PN ---
LOCATION: 354. SUBJECTIVE: This is an 81-year-old female post PEG insertion, seen and examined in rounds. Case discussed with admitting medical staff and nursing staff in the floor. The patient is tolerating PEG feeding well without any reported bleeding, . The entire chart is reviewed, including the most recent lab results, current and the previous medication list, current and previous medical events. Most of the lab results showed hemoglobin and hematocrit with increased blood glucose level and the low albumin. PHYSICAL EXAMINATION Showed no significant clinical changes. The patient is Chinese speaking. The PEG tube is in place with clean wound, and the clean dressing with positive bowel sounds. The patient is afebrile with heart rate of 94, blood pressure of 144/82. IMPRESSION: 1. Malnutrition. 2. Dysphagia. 3. Status post percutaneous endoscopic gastrostomy insertion. 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 SUGGESTIONS: 1. Continue current management. 2. Increase rate of feeding as tolerated. Yasmine Oneill MD cc: Yasmine Oneill MD
--- NOTE | 2016-11-06 18:28 | CP.PCM.PN ---
Subjective - Date & Time of Evaluation Date of Evaluation: 11/06/16 Time of Evaluation: 18:28 - Subjective Subjective: pt is seen and examined, follow up comsult is dictated need to change perma cath, non functioning Objective - Vital Signs/Intake and Output Vital Signs (last 24 hours): Temp Pulse Resp BP Pulse Ox 98.5 F 91 H 20 159/84 H 96 11/06/16 15:00 11/06/16 15:00 11/06/16 15:00 11/06/16 15:00 11/06/16 15:00 Intake and Output: 11/06/16 11/06/16 06:59 18:59 Intake Total 480 Balance 480 - Medications Medications: Current Medications Epoetin Herve (Procrit) 10,000 unit IV TTS [facility] Last Admin: 11/04/16 11:37 Dose: 10,000 unit Pantoprazole Sodium (Protonix Inj) 40 mg IVP Q12H [facility] Last Admin: 11/06/16 10:42 Dose: 40 mg Paricalcitol (Zemplar) 1 mcg IV TTS [facility] Last Admin: 11/04/16 11:40 Dose: 1 mcg Vitamin B Complex/Vit C/Folic Acid (Nephro-Andrea) 1 tab PO 0800 [facility] Last Admin: 11/06/16 08:03 Dose: Not Given - Labs Labs: 11/04/16 07:45 11/04/16 07:45 PT 11.7 SECONDS (9.7-12.2) 11/04/16 07:45 INR 1.0 11/04/16 07:45 APTT 37 SECONDS (21-34) H D 11/04/16 13:51
--- NOTE | 2016-11-06 20:29 | CP.PCM.PN ---
Subjective - Date & Time of Evaluation Date of Evaluation: 11/06/16 Time of Evaluation: 07:20 - Subjective Subjective: clinically same Objective - Vital Signs/Intake and Output Vital Signs (last 24 hours): Temp Pulse Resp BP Pulse Ox 98.5 F 91 H 20 159/84 H 96 11/06/16 15:00 11/06/16 15:00 11/06/16 15:00 11/06/16 15:00 11/06/16 15:00 - Medications Medications: Current Medications Epoetin Herve (Procrit) 10,000 unit IV TTS [facility] Last Admin: 11/04/16 11:37 Dose: 10,000 unit Pantoprazole Sodium (Protonix Inj) 40 mg IVP Q12H [facility] Last Admin: 11/06/16 10:42 Dose: 40 mg Paricalcitol (Zemplar) 1 mcg IV TTS [facility] Last Admin: 11/04/16 11:40 Dose: 1 mcg Vitamin B Complex/Vit C/Folic Acid (Nephro-Andrea) 1 tab PO 0800 [facility] Last Admin: 11/06/16 08:03 Dose: Not Given - Labs Labs: 11/04/16 07:45 11/04/16 07:45 PT 11.7 SECONDS (9.7-12.2) 11/04/16 07:45 INR 1.0 11/04/16 07:45 APTT 37 SECONDS (21-34) H D 11/04/16 13:51 Assessment and Plan (1) Cardiac dysrhythmia Status: Acute (2) ESRD (end stage renal disease) on dialysis Status: Acute (3) Pulmonary edema Status: Acute (4) MARCO (acute kidney injury) Status: Acute (5) Acute respiratory failure requiring reintubation Status: Acute (6) Arthritis Status: Acute (7) CHF (congestive heart failure) Status: Acute (8) Dehydration Status: Acute (9) Dehydration Status: Acute (10) Diverticulosis Status: Acute (11) Elevated CEA Status: Acute (12) Hypertension Status: Acute (13) Inguinal lymphadenopathy Status: Acute (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
--- NOTE | 2016-11-07 05:00 | PN ---
DATE: LOCATION: The patient is located in room 354, bed A. REQUESTED BY: Dr. Kavon Ureña. REASON FOR FOLLOWUP: End-stage renal disease, continuation of hemodialysis. SUBJECTIVE: Ms. Denise Garcia is about 81 years old elderly female with past medical history significant for longstanding hypertension, rheumatoid arthritis, cardiomyopathy, anemia, thrombocytopenia, end-stage renal disease on hemodialysis, dependent on hemodialysis for the last 3 months and status post PEG tube placement 3 days ago. The patient is not in acute distress, following simple commands. No chest pain. No shortness of breath. The patient underwent hemodialysis and catheter was poorly functioning and received partial hemodialysis only. PHYSICAL EXAMINATION GENERAL: Ms. Denise Garcia is about 81 years old elderly female, who is moderately built, moderately nourished, not in acute distress. VITAL SIGNS: This afternoon as follows; blood pressure 159/84, pulse 103, respirations about 20, temperature 98.5. Height 5 feet 2 inches and weight is 120 pounds. HEENT: Pupils normal reactive to light and conjunctivae are pink. Sclerae anicteric and legally blind Tongue is moist. Trachea is midline. LUNGS: Symmetric on both sides. Bilateral breath sounds present. Clear on auscultation. CARDIOVASCULAR SYSTEM: [place] at the fifth intercostal space, midclavicular line. S1, S2 audible. No murmur or gallop. ABDOMEN: Normal in appearance. Soft, tympanic. No guarding. No rigidity. No hepatosplenomegaly. Status post PEG tube placement. CENTRAL NERVOUS SYSTEM: The patient is arousable following simple commands today. EXTREMITIES: No cyanosis, no clubbing. Sensory system is within normal limits. Motor, the patient is bedridden for the last 3 months. Moving all the extremities slightly. CURRENT MEDICATIONS: Given as follows; Nephro-Andrea 1 tablet daily; Procrit 10,000 units 3 times a week Thursday, , and Thursday; Protonix 40 mg q.12 hours; and Zemplar 1 mcg 3 times a week. LABORATORY DATA: No new labs are available for today. As of 11/04/2016; hemoglobin 9.5, hematocrit is 29.7. Sodium 137, potassium 4.9, BUN 38, creatinine 5.7, calcium 9.5. ASSESSMENT AND PLAN: In summary, Ms. Denise Garcia is 81 years old elderly female with hypertension, rheumatoid arthritis, cardiomyopathy, thrombotic thrombocytopenic purpura, end-stage renal disease on hemodialysis 3 times a week. 1. 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 Continue hemodialysis 3 times a week, Thursday, , and Thursday. The patient has poorly functioning catheter, unable to finish dialysis. Please request vascular surgery and interventional radiology to change the Perma-Cath prior to discharge. was not working. 2. Cardiomyopathy. 3. Hypertension. Blood pressure is stable, not on any medication. 4. Anemia secondary to renal failure and thrombotic thrombocytopenic purpura. Continue Procrit 3 times a week with the dialysis and IV iron q. weekly. We will follow with you. Thank you for allowing me to participate in your patient's care. Overall, prognosis is very poor. Horacio Graham MD
[2016-11-07] MEDS: Multivitamin Vitamin B Complex (Nephro-Vite) Tab PO SCH (08:00)
--- NOTE | 2016-11-07 11:05 | CP.PCM.PN ---
Subjective - Date & Time of Evaluation Date of Evaluation: 11/07/16 Time of Evaluation: 11:05 - Subjective Subjective: pt is seen and examined, follow up consult is dictated #[id number] will need new perma cath s/p hd today after new catheter Objective - Vital Signs/Intake and Output Vital Signs (last 24 hours): Temp Pulse Resp BP Pulse Ox 99.5 F 47 L 20 184/80 H 94 L 11/07/16 08:50 11/07/16 08:50 11/07/16 08:50 11/07/16 08:50 11/07/16 08:50 Intake and Output: 11/07/16 11/07/16 06:59 18:59 Intake Total 480 Balance 480 - Medications Medications: Current Medications Epoetin Herve (Procrit) 10,000 unit IV TTS [facility] Last Admin: 11/04/16 11:37 Dose: 10,000 unit Pantoprazole Sodium (Protonix Inj) 40 mg IVP Q12H [facility] Last Admin: 11/06/16 22:07 Dose: 40 mg Paricalcitol (Zemplar) 1 mcg IV TTS [facility] Last Admin: 11/04/16 11:40 Dose: 1 mcg Vitamin B Complex/Vit C/Folic Acid (Nephro-Andrea) 1 tab PO 0800 [facility] Last Admin: 11/06/16 08:03 Dose: Not Given - Labs Labs: 11/04/16 07:45 11/04/16 07:45 PT 11.7 SECONDS (9.7-12.2) 11/04/16 07:45 INR 1.0 11/04/16 07:45 APTT 37 SECONDS (21-34) H D 11/04/16 13:51
--- NOTE | 2016-11-07 12:03 | CP.PCM.PN ---
Subjective - Date & Time of Evaluation Date of Evaluation: 11/06/16 Time of Evaluation: 13:00 - Subjective Subjective: Appears comfortable Objective - Vital Signs/Intake and Output Vital Signs (last 24 hours): Temp Pulse Resp BP Pulse Ox 99.5 F 47 L 20 184/80 H 94 L 11/07/16 08:50 11/07/16 08:50 11/07/16 08:50 11/07/16 08:50 11/07/16 08:50 Intake and Output: 11/07/16 11/07/16 06:59 18:59 Intake Total 480 Balance 480 - Medications Medications: Current Medications Epoetin Herve (Procrit) 10,000 unit IV TTS [facility] Last Admin: 11/04/16 11:37 Dose: 10,000 unit Pantoprazole Sodium (Protonix Inj) 40 mg IVP Q12H [facility] Last Admin: 11/07/16 10:00 Dose: Not Given Paricalcitol (Zemplar) 1 mcg IV TTS [facility] Last Admin: 11/04/16 11:40 Dose: 1 mcg Vitamin B Complex/Vit C/Folic Acid (Nephro-Andrea) 1 tab PO 0800 [facility] Last Admin: 11/07/16 08:00 Dose: Not Given - Labs Labs: 11/04/16 07:45 11/04/16 07:45 PT 11.7 SECONDS (9.7-12.2) 11/04/16 07:45 INR 1.0 11/04/16 07:45 APTT 37 SECONDS (21-34) H D 11/04/16 13:51 - Head Exam Head Exam: ATRAUMATIC - Eye Exam Eye Exam: Normal appearance - ENT Exam ENT Exam: Mucous Membranes Dry - Respiratory Exam Respiratory Exam: NORMAL BREATHING PATTERN - Cardiovascular Exam Cardiovascular Exam: +S1, +S2 - GI/Abdominal Exam GI & Abdominal Exam: Normal Bowel Sounds Assessment and Plan (1) Anemia Assessment & Plan: anemia of CKD Status: Acute (2) TTP (thrombotic thrombocytopenic purpura) Assessment & Plan: resolved s/p plasmapheresis and rituximab Status: Acute
--- NOTE | 2016-11-07 12:04 | CP.PCM.PN ---
Subjective - Date & Time of Evaluation Date of Evaluation: 11/07/16 Time of Evaluation: 11:00 - Subjective Subjective: Appears comfortable Objective - Vital Signs/Intake and Output Vital Signs (last 24 hours): Temp Pulse Resp BP Pulse Ox 99.5 F 47 L 20 184/80 H 94 L 11/07/16 08:50 11/07/16 08:50 11/07/16 08:50 11/07/16 08:50 11/07/16 08:50 Intake and Output: 11/07/16 11/07/16 06:59 18:59 Intake Total 480 Balance 480 - Medications Medications: Current Medications Epoetin Herve (Procrit) 10,000 unit IV TTS [facility] Last Admin: 11/04/16 11:37 Dose: 10,000 unit Pantoprazole Sodium (Protonix Inj) 40 mg IVP Q12H [facility] Last Admin: 11/07/16 10:00 Dose: Not Given Paricalcitol (Zemplar) 1 mcg IV TTS [facility] Last Admin: 11/04/16 11:40 Dose: 1 mcg Vitamin B Complex/Vit C/Folic Acid (Nephro-Andrea) 1 tab PO 0800 [facility] Last Admin: 11/07/16 08:00 Dose: Not Given - Labs Labs: 11/04/16 07:45 11/04/16 07:45 PT 11.7 SECONDS (9.7-12.2) 11/04/16 07:45 INR 1.0 11/04/16 07:45 APTT 37 SECONDS (21-34) H D 11/04/16 13:51 - Head Exam Head Exam: ATRAUMATIC - Eye Exam Eye Exam: Normal appearance - ENT Exam ENT Exam: Mucous Membranes Dry - Respiratory Exam Respiratory Exam: NORMAL BREATHING PATTERN - Cardiovascular Exam Cardiovascular Exam: +S1, +S2 - GI/Abdominal Exam GI & Abdominal Exam: Normal Bowel Sounds Assessment and Plan (1) Anemia Assessment & Plan: anemia of CKD Status: Acute (2) TTP (thrombotic thrombocytopenic purpura) Assessment & Plan: resolved s/p plasmapheresis and rituximab Status: Acute
--- NOTE | 2016-11-07 12:17 | PCM.SURG1 ---
Surgeon's Initial Post Op Note - Surgeon's Notes Surgeon: Asher Connelly MD Licensing Analyst: NONE Type of Anesthesia: Local Pre-Operative Diagnosis: ESRD, non functional HD catheter Operative Findings: Left IJV HD catheter. Post-Operative Diagnosis: ESRD, non functional HD catheter Operation Performed: HD catheter exhange. A new 16 fr 19 cm HD catheter placed with tip at cavo-atrial junction. Specimen/Specimens Removed: NONE Estimated Blood Loss: EBL {In ML}: 1 Blood Products Given: N/A Drains Used: No Drains Post-Op Condition: Fair Date of Surgery/Procedure: 11/07/16 Time of Surgery/Procedure: 12:10
[2016-11-07 15:53] LABS: BASO # 0.1 K/uL (0.0-0.2); BASO % 0.7 % (0.0-2.0); EOS # 0.3 K/uL (0.0-0.7); HEMATOCRIT 32.9 % (34.0-47.0); LYMPH # 1.6 K/uL (1.0-4.3); LYMPH % 18.2 % (20.0-40.0); MEAN CELL VOLUME 88.9 fL (81.0-99.0); MEAN CORPUSCULAR HEMOGLOBIN 27.5 pg (27.0-31.0); MEAN CORPUSCULAR HGB CONC 30.9 g/dL (33.0-37.0); MEAN PLATELET VOLUME 10.1 fL (7.2-11.7); MONO % 23.5 % (0.0-10.0); NRBC % 0.2 % (0.0-2.0); PLATELET COUNT 194 K/uL (130-400); RED CELL DISTRIBUTION WIDTH 24.4 % (11.5-14.5); WHITE BLOOD COUNT 8.6 K/uL (4.8-10.8)
[2016-11-07 16:11] LABS: CALCIUM 9.1 mg/dl (8.6-10.4)
[2016-11-07 16:15] LABS: POTASSIUM 6.9 mmol/L (3.6-5.2)
[2016-11-07 16:25] LABS: EOSINOPHIL 1 % (0-4); NEUTROPHIL 65 % (50-75); TOTAL CELLS COUNTED 100
--- NOTE | 2016-11-07 16:37 | CP.PCM.PN ---
Subjective - Date & Time of Evaluation Date of Evaluation: 11/07/16 Time of Evaluation: 07:00 - Subjective Subjective: clinically same Objective - Vital Signs/Intake and Output Vital Signs (last 24 hours): Temp Pulse Resp BP Pulse Ox 98.9 F 89 20 137/85 95 11/07/16 14:45 11/07/16 14:45 11/07/16 14:45 11/07/16 15:45 11/07/16 14:45 Intake and Output: 11/07/16 11/07/16 06:59 18:59 Intake Total 480 180 Balance 480 180 - Medications Medications: Current Medications Epoetin Herve (Procrit) 10,000 unit IV TTS [facility] Last Admin: 11/04/16 11:37 Dose: 10,000 unit Pantoprazole Sodium (Protonix Inj) 40 mg IVP Q12H [facility] Last Admin: 11/07/16 10:00 Dose: Not Given Paricalcitol (Zemplar) 1 mcg IV TTS [facility] Last Admin: 11/04/16 11:40 Dose: 1 mcg Vitamin B Complex/Vit C/Folic Acid (Nephro-Andrea) 1 tab PO 0800 [facility] Last Admin: 11/07/16 08:00 Dose: Not Given - Labs Labs: 11/07/16 15:43 11/07/16 15:43 PT 11.7 SECONDS (9.7-12.2) 11/04/16 07:45 INR 1.0 11/04/16 07:45 APTT 37 SECONDS (21-34) H D 11/04/16 13:51 - Constitutional Appears: Well - Head Exam Head Exam: ATRAUMATIC, NORMAL INSPECTION, NORMOCEPHALIC - Eye Exam Eye Exam: EOMI, Normal appearance, PERRL Pupil Exam: NORMAL ACCOMODATION, PERRL - ENT Exam ENT Exam: Mucous Membranes Moist, Normal Exam - Neck Exam Neck Exam: Full ROM, Normal Inspection. absent: Lymphadenopathy - Respiratory Exam Respiratory Exam: Decreased Breath Sounds - Cardiovascular Exam Cardiovascular Exam: REGULAR RHYTHM, +S1, +S2 - GI/Abdominal Exam GI & Abdominal Exam: Soft, Diminished Bowel Sounds - Rectal Exam Rectal Exam: Deferred Assessment and Plan (1) Cardiac dysrhythmia Status: Acute (2) ESRD (end stage renal disease) on dialysis Status: Acute (3) Pulmonary edema Status: Acute (4) MARCO (acute kidney injury) Status: Acute (5) Acute respiratory failure requiring reintubation Status: Acute (6) Arthritis Status: Acute (7) CHF (congestive heart failure) Status: Acute (8) Dehydration Status: Acute (9) Dehydration Status: Acute (10) Diverticulosis Status: Acute (11) Elevated CEA Status: Acute (12) Hypertension Status: Acute (13) Inguinal lymphadenopathy Status: Acute (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
[2016-11-07 18:19] LABS: POTASSIUM 4.3 mmol/L (3.6-5.2)
[2016-11-07 18:22] LABS: CALCIUM 8.5 mg/dl (8.6-10.4)
[2016-11-07] MEDS: Epoetin Alfa 10,000 unit/ml Dialysis IV SCH (18:37)
[2016-11-07] MEDS: Paricalcitol 2 mcg/ml Inj IV SCH (18:37)
[2016-11-08] MEDS: Multivitamin Vitamin B Complex (Nephro-Vite) Tab PO SCH ×2 (08:16→08:29)
--- NOTE | 2016-11-08 08:31 | PN ---
LOCATION: 354. SUBJECTIVE: This is an 81 years old female, [place] spoking, seen in rounds, tolerating PEG feeding well without reported bleeding persistent or residual so far. The entire chart is reviewed, including but not limited to the most recent labs and radiology study results, current and previous medication list, current and previous medical events. Case discussed with the staff at length and the patient. Latest hemoglobin is 10.2, hematocrit 32.9 with potassium of 4.3 and increased BUN of 28, creatinine 2.3 with blood glucose level 126 and low calcium as well as low albumin. PHYSICAL EXAMINATION: GENERAL: An 81 years old female, [place] spoking. VITAL SIGNS: Afebrile with heart rate of 88, respiratory rate of 20 to 22. HEENT: Showed pale, dry oral mucous membrane. Nonicteric sclerae. LUNGS: Few scattered crepitation. Decreased air entry at bases. HEART: Positive S1 and S2. ABDOMEN: Soft. PEG tube is in place. No mass or organomegaly. No rebound tenderness or guarding. EXTREMITIES: Without edema, clubbing or cyanosis. NEUROLOGIC: No reported new neurological deficit. IMPRESSION: 1. Malnutrition. 2. Renal failure, on hemodialysis. 3. Status post PEG insertion. 4. Anemia. 5. Hypoalbuminemia. 6. Dysphagia. SUGGESTIONS: 1. Continue current management. 2. Increase rate of feeding as tolerated. Yasmine Oneill MD
[2016-11-08] MEDS: Paricalcitol 2 mcg/ml Inj IV SCH (10:43)
[2016-11-08] MEDS: Epoetin Alfa 10,000 unit/ml Dialysis IV SCH (10:45)
--- NOTE | 2016-11-08 11:12 | CP.PCM.PN ---
Subjective - Date & Time of Evaluation Date of Evaluation: 11/08/16 Time of Evaluation: 07:00 - Subjective Subjective: clinically same Objective - Vital Signs/Intake and Output Vital Signs (last 24 hours): Temp Pulse Resp BP Pulse Ox 98.4 F 91 H 20 146/84 95 11/08/16 00:00 11/08/16 00:00 11/08/16 00:00 11/08/16 00:00 11/08/16 00:00 Intake and Output: 11/08/16 11/08/16 06:59 18:59 Intake Total 680 580 Output Total 1 Balance 679 580 - Medications Medications: Current Medications Epoetin Herve (Procrit) 10,000 unit IV TTS [facility] Last Admin: 11/08/16 10:45 Dose: 10,000 unit Multivitamins/Vitamin C (Multi-Delyn Liquid) 5 ml GT 1200 [facility] Pantoprazole Sodium (Protonix Inj) 40 mg IVP Q12H [facility] Last Admin: 11/08/16 10:02 Dose: 40 mg Paricalcitol (Zemplar) 1 mcg IV TTS [facility] Last Admin: 11/08/16 10:43 Dose: 1 mcg - Labs Labs: 11/07/16 15:43 11/07/16 18:05 PT 11.7 SECONDS (9.7-12.2) 11/04/16 07:45 INR 1.0 11/04/16 07:45 APTT 37 SECONDS (21-34) H D 11/04/16 13:51 - Constitutional Appears: Well - Head Exam Head Exam: ATRAUMATIC, NORMAL INSPECTION, NORMOCEPHALIC - Eye Exam Eye Exam: EOMI, Normal appearance, PERRL Pupil Exam: NORMAL ACCOMODATION, PERRL - ENT Exam ENT Exam: Mucous Membranes Moist, Normal Exam - Neck Exam Neck Exam: Full ROM, Normal Inspection. absent: Lymphadenopathy - Respiratory Exam Respiratory Exam: Decreased Breath Sounds - Cardiovascular Exam Cardiovascular Exam: REGULAR RHYTHM, +S1, +S2 - GI/Abdominal Exam GI & Abdominal Exam: Soft, Diminished Bowel Sounds - Rectal Exam Rectal Exam: Deferred Assessment and Plan (1) Cardiac dysrhythmia Status: Acute (2) ESRD (end stage renal disease) on dialysis Status: Acute (3) Pulmonary edema Status: Acute (4) MARCO (acute kidney injury) Status: Acute (5) Acute respiratory failure requiring reintubation Status: Acute (6) Arthritis Status: Acute (7) CHF (congestive heart failure) Status: Acute (8) Dehydration Status: Acute (9) Dehydration Status: Acute (10) Diverticulosis Status: Acute (11) Elevated CEA Status: Acute (12) Hypertension Status: Acute (13) Inguinal lymphadenopathy Status: Acute (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
[2016-11-08] MEDS: Multiple Vitamins Oral Solution GT SCH (11:59)
--- NOTE | 2016-11-08 18:24 | CP.PCM.PN ---
Subjective - Date & Time of Evaluation Date of Evaluation: 11/08/16 Time of Evaluation: 18:23 - Subjective Subjective: pt is seen and examined, follow up consult is dictated #[id number] s/p hd today , uf 1.5 lit Objective - Vital Signs/Intake and Output Vital Signs (last 24 hours): Temp Pulse Resp BP Pulse Ox 98.2 F 100 H 17 143/76 96 11/08/16 18:10 11/08/16 18:10 11/08/16 18:10 11/08/16 18:10 11/08/16 18:10 Intake and Output: 11/08/16 11/08/16 06:59 18:59 Intake Total 680 580 Output Total 1 Balance 679 580 - Medications Medications: Current Medications Epoetin Herve (Procrit) 10,000 unit IV TTS [facility] Last Admin: 11/08/16 10:45 Dose: 10,000 unit Multivitamins/Vitamin C (Multi-Delyn Liquid) 5 ml GT 1200 [facility] Last Admin: 11/08/16 11:59 Dose: 5 ml Pantoprazole Sodium (Protonix Inj) 40 mg IVP Q12H [facility] Last Admin: 11/08/16 10:02 Dose: 40 mg Paricalcitol (Zemplar) 1 mcg IV TTS [facility] Last Admin: 11/08/16 10:43 Dose: 1 mcg - Labs Labs: 11/07/16 15:43 11/07/16 18:05 PT 11.7 SECONDS (9.7-12.2) 11/04/16 07:45 INR 1.0 11/04/16 07:45 APTT 37 SECONDS (21-34) H D 11/04/16 13:51
--- NOTE | 2016-11-09 05:17 | CON ---
DATE: LOCATION: The patient is located in room 354, bed A. HISTORY OF PRESENT ILLNESS: Ms. Denise Garcia is 81 years old elderly female with history of longstanding hypertension, rheumatoid arthritis, cardiomyopathy, CHF respiratory failure status post extubation x2, thrombocytopenia, TTP, renal failure on hemodialysis 3 times a week Thursday, , and Thursday. The patient is being dialyzed, UF goal is about 1.5 L, status post TPA placement for non-function Perma-Cath today, after TPN catheter was functioning well and able to dialyze. The patient is not in acute distress, no complaints. PHYSICAL EXAMINATION: GENERAL: Ms. Denise Garcia is 81 years old elderly female, moderately built and moderately nourished, not in acute distress. VITAL SIGNS: As follows: Blood pressure 143/76, pulse 100, respiratory rate 17 and temperature 98.2. Height is 5 feet 2 inches and weight 120 pounds. HEENT: Pupils are normal, reactive to light. Conjunctivae pink. Sclerae anicteric. Legally blind. Trachea is midline. LUNGS: Symmetric on both sides. Bilateral breath sounds present, clear on auscultation. CARDIOVASCULAR SYSTEM: [place] at the fifth intercostal space, midclavicular line. S1 and S2 audible. No murmur, no gallop. ABDOMEN: Normal in appearance. Soft and tympanic. No guarding. No rigidity. No hepatosplenomegaly, status post PEG tube placement. CENTRAL NERVOUS SYSTEM: The patient is arousable following simple commands. SENSORY SYSTEM: Grossly within normal limits. MOTOR SYSTEM: Grossly within normal limits, but the patient is bedridden for the last 3 months. EXTREMITIES: No cyanosis. No clubbing. No edema. CURRENT MEDICATIONS: Include, heparin 3700 units in PermaCath in both ports and multivitamin 1 tablet daily, Procrit 10,000 units 3 times a week, Protonix 40 mg q.12, and Zemplar 1 mcg 3 times a week. LABORATORY DATA: No new labs are available for today. As of 11/07/2016, WBC 8.6, hemoglobin 10.2, hematocrit 32.9 and platelets 194. Sodium 142, potassium 4.3, chloride 98, CO2 of 27, BUN 28, creatinine 2.3, glucose 100 and calcium 8.5. ASSESSMENT: In summary, Ms. Denise Garcia is 81 years old elderly female with hypertension, rheumatoid arthritis, congestive heart failure, cardiomyopathy, thrombocytopenia, thrombotic thrombocytopenic purpura and renal failure, on hemodialysis. 1. 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 Continue hemodialysis 3 times a week, Thursday, , and Thursday. 2. Hypertension. Blood pressure stable. 3. Cardiomyopathy. Lungs are clear, asymptomatic. 4. Anemia, hemoglobin and hematocrit are improving and stable. Continue Epogen 3 times a week. 5. Thrombotic thrombocytopenic purpura status post plasmapheresis x3 sessions and status post rituximab q.weekly x4 doses. Platelets are stable at this time. Awaiting for the discharge and awaiting for the hospital bed as per the patient's family. The patient is stable from the renal standpoint. Thank you for allowing me to participate in your patient's care hemodialysis today. Horacio Graham MD
--- NOTE | 2016-11-09 12:08 | PN ---
DATE: LOCATION: [facility], bed B. SUBJECTIVE: This is an 80-year-old female, status post PEG insertion, seen and examined in rounds without significant clinical changes, or reported active bleeding. Tolerating PEG feeding well. The patient is on hemodialysis. The entire chart is reviewed including, but not limited to the most recent lab and radiology study results, current and previous medication lists, current and previous medical events. Case discussed with the staff at length and the patient still has increased BUN and creatinine, on hemodialysis with elevated blood glucose level, but low calcium, low hemoglobin, and low hematocrit. PHYSICAL EXAMINATION: GENERAL: An 80-year-old female. VITAL SIGNS: Afebrile with pulse of 92, respiratory rate 20-22 with blood pressure 128/66. HEENT: Showed pale, dry oral mucous membrane. Nonicteric sclera. LUNGS: Few scattered crepitation. Decreased air entry at bases. HEART: Positive S1 and S2. ABDOMEN: Soft. The PEG tube is in place with well formed stoma. No residual bleeding or resistant. EXTREMITIES: Lower extremities with mild edematous changes. NEUROLOGIC: No reported neurological deficits, sensory or motor. IMPRESSION: 1. Malnutrition. 2. Hypoalbuminemia. 3. Status post percutaneous endoscopic gastrostomy insertion. 4. Failure to thrive. 5. Renal failure, on hemodialysis. 6. Anemia most likely secondary to above. 7. Electrolyte imbalance most likely secondary to above. 8. Known history of cardiomyopathy with hypertension. 9. Known history of thrombotic thrombocytopenic purpura. SUGGESTIONS: 1. Continue current management. 2. Subsequent increase in the rate of feeding as tolerated that to be in coordination of the Nephrology consult on the case and Dr. Oneill. Yasmine Oneill MD
[2016-11-09] MEDS: Multiple Vitamins Oral Solution GT SCH (12:19)
--- NOTE | 2016-11-09 20:11 | CP.PCM.PN ---
Subjective - Date & Time of Evaluation Date of Evaluation: 11/09/16 Time of Evaluation: 07:00 - Subjective Subjective: clinically same Objective - Vital Signs/Intake and Output Vital Signs (last 24 hours): Temp Pulse Resp BP Pulse Ox 98.3 F 92 H 20 144/71 97 11/09/16 16:44 11/09/16 16:44 11/09/16 16:44 11/09/16 16:44 11/09/16 16:44 Intake and Output: 11/09/16 11/10/16 18:59 06:59 Intake Total 480 Balance 480 - Medications Medications: Current Medications Epoetin Herve (Procrit) 10,000 unit IV TTS [facility] Last Admin: 11/08/16 10:45 Dose: 10,000 unit Heparin Sodium (Porcine) (Heparin) 3,700 units IVP TTS [facility] Multivitamins/Vitamin C (Multi-Delyn Liquid) 5 ml GT 1200 [facility] Last Admin: 11/09/16 12:19 Dose: 5 ml Pantoprazole Sodium (Protonix Inj) 40 mg IVP Q12H [facility] Last Admin: 11/09/16 09:25 Dose: 40 mg Paricalcitol (Zemplar) 1 mcg IV TTS [facility] Last Admin: 11/08/16 10:43 Dose: 1 mcg - Labs Labs: 11/07/16 15:43 11/07/16 18:05 PT 11.7 SECONDS (9.7-12.2) 11/04/16 07:45 INR 1.0 11/04/16 07:45 APTT 37 SECONDS (21-34) H D 11/04/16 13:51 - Constitutional Appears: Well - Head Exam Head Exam: ATRAUMATIC, NORMAL INSPECTION, NORMOCEPHALIC - Eye Exam Eye Exam: EOMI, Normal appearance, PERRL Pupil Exam: NORMAL ACCOMODATION, PERRL - ENT Exam ENT Exam: Mucous Membranes Moist, Normal Exam - Neck Exam Neck Exam: Full ROM, Normal Inspection. absent: Lymphadenopathy - Respiratory Exam Respiratory Exam: Decreased Breath Sounds - Cardiovascular Exam Cardiovascular Exam: REGULAR RHYTHM, +S1, +S2 - GI/Abdominal Exam GI & Abdominal Exam: Soft, Diminished Bowel Sounds - Rectal Exam Rectal Exam: Deferred Assessment and Plan (1) Cardiac dysrhythmia Status: Acute (2) ESRD (end stage renal disease) on dialysis Status: Acute (3) Pulmonary edema Status: Acute (4) MARCO (acute kidney injury) Status: Acute (5) Acute respiratory failure requiring reintubation Status: Acute (6) Arthritis Status: Acute (7) CHF (congestive heart failure) Status: Acute (8) Dehydration Status: Acute (9) Dehydration Status: Acute (10) Diverticulosis Status: Acute (11) Elevated CEA Status: Acute (12) Hypertension Status: Acute (13) Inguinal lymphadenopathy Status: Acute (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
--- NOTE | 2016-11-10 07:46 | PN ---
DATE: LOCATION: [facility]. SUBJECTIVE: The patient is an 80-year-old female with PEG insertion, seen and examined in rounds without significant clinical changes. She is tolerating PEG feeding good without residual bleeding or resistance. The entire chart is reviewed including, but not limited to the most recent lab and radiology study results, current and previous medication lists, current and previous medical events. Case was discussed with the staff at length as well as family members before. Today's lab is still pending. PHYSICAL EXAMINATION: GENERAL: An 80-year-old female. VITAL SIGNS: Low-grade temperature of 99.5, heart rate of 56, respiratory rate of 20 to 22 and blood pressure of 166/80. HEENT: Showed pale, dry oral mucous membranes and nonicteric sclerae. LUNGS: Few scattered crepitation. Decreased air entry at bases. HEART: Positive S1 and S2. ABDOMEN: Soft with mild distention. No mass or organomegaly. No rebound tenderness or guarding. PEG tube is in place with clean wound and clean dressing. EXTREMITIES: Without clubbing or cyanosis, but mild edematous changes in the lower extremities. NEUROLOGIC: No reported new neurological focal deficits, sensory or motor. The patient had been on hemodialysis. IMPRESSION: 1. Malnutrition, dysphagia status post percutaneous endoscopic gastrostomy insertion. 2. Anemia. 3. Thrombotic thrombocytopenic purpura by history. 4. Chronic renal failure, on hemodialysis. 5. Known history of cardiomyopathy as well as hypertension. SUGGESTIONS: 1. Agree with your plan. 2. Subsequent increase of the rate of feeding as tolerated in coordination with the Nephrology garden consultant on the case. 3. Guaiac all the stool every day x3. 4. Correct any underlying coagulopathy. Yasmine Oneill MD cc: Yasmine Oneill MD
--- NOTE | 2016-11-10 07:47 | PN ---
DATE: FOLLOWUP RENAL CONSULTATION LOCATION: The patient is located in room 354, bed A. REQUESTED BY: Dr. Kavon Ureña. REASON FOR FOLLOWUP: End-stage renal disease, for continuation of hemodialysis. SUBJECTIVE: Mrs. Denise Garcia is 81 years old elderly female with past medical history significant for long-standing hypertension, rheumatoid arthritis, CHF, cardiomyopathy, thrombocytopenia, TTP, relapsing, status post plasmapheresis x3 status post Rituximab q. weekly x4 doses, end-stage renal disease, on hemodialysis, was admitted about 2 months ago for worsening renal function. Patient was seen and examined in union lab[employer] waiting for the Perma-Cath change this morning, not in acute distress, resting comfortably. Patient's daughter is at bedside. PHYSICAL EXAMINATION VITAL SIGNS: Blood pressure 140/83, pulse 88, respirations 18, temperature 97.6. Height 5 feet 2 inches, weight is 120 pounds. GENERAL: Mrs. Denise Garcia is 81 years old elderly female, not in distress. HEENT: Pupils are normal and reactive to light and accommodation. Conjunctivae are pink. Sclerae anicteric and legally blind. LUNGS: Symmetric on both sides. Bilateral breath sounds present. Clear on auscultation. CARDIOVASCULAR SYSTEM: [place] at the fifth intercostal space, midclavicular line. S1 and S2 audible. No murmur or gallop. ABDOMEN: Normal in appearance. Soft and tympanic. No guarding. No rigidity. No hepatosplenomegaly. CENTRAL NERVOUS SYSTEM: The patient is alert, awake, and oriented x1-2. SENSORY MOTOR SYSTEMS: Grossly within normal limits. Patient is bedridden for the last 3 months. EXTREMITIES: No cyanosis, no clubbing, no edema. LABORATORY DATA: As of 11/04/2016, WBC 8.6, hemoglobin 10.2, hematocrit 32.9, platelets 194. Sodium 142, potassium 6.9, chloride 100, CO2 of 28, BUN 70, creatinine 4.9, glucose 95, and calcium 9.1. Post-dialysis BMP's, sodium 142, potassium 4.3, chloride 98, CO2 of 29, BUN 28, creatinine 2.3 and glucose 100, calcium 8.5. CURRENT MEDICATIONS: Nephro-Andrea 1 tablet daily, Epogen 10,000 units 3 times a week, Protonix 40 mg IV q. 12 hours, and Zemplar 1 mcg 3 times a week. ASSESSMENT AND PLAN: In summary, Mrs. Denise Garcia is 81 years old elderly female with history of hypertension, rheumatoid arthritis, cardiomyopathy, thrombocytopenia, TTP, status post Rituximab q. weekly x4 doses with normal platelets now, end-stage renal disease, on hemodialysis. 1. End-stage renal disease. Continue hemodialysis 3 times a week. Patient missed on dialysis yesterday due to non-functioning Perma-Cath and patient was scheduled for hemodialysis about 2 hours today. Tolerated very well and repeat post-dialysis, potassium is normal. 2. Hyperkalemia secondary to missing of hemodialysis. 3. Cardiomyopathy. 4. Anemia. Hemoglobin and hematocrit is improving nicely. Continue Procrit during dialysis. Waiting for the discharge home. We will follow with you. Thank you for allowing me to participate in your patient's care. Continue hemodialysis 3 times a week Thursday, , and Thursday. Horacio Graham MD
--- NOTE | 2016-11-10 10:11 | CP.PCM.PN ---
Subjective - Date & Time of Evaluation Date of Evaluation: 11/10/16 Time of Evaluation: 10:12 - Subjective Subjective: Pt seen and examined at bedside; permacath in place and looks good no bleeding or signs of infection; PEG in place and no signs of bleeding or infection; patient is resting comfortably in bed no complaints; denies fevers/chills, W[place]ACE, CP, SOB, abdominal pain, N/V/D, dysuria/freq/urg or lower extremity pain. Objective - Vital Signs/Intake and Output Vital Signs (last 24 hours): Temp Pulse Resp BP Pulse Ox 96.8 F L 120 H 20 161/91 H 92 L 11/10/16 08:06 11/10/16 08:06 11/10/16 08:06 11/10/16 08:06 11/10/16 08:06 Intake and Output: 11/10/16 11/10/16 06:59 18:59 Intake Total 480 580 Balance 480 580 - Medications Medications: Current Medications Epoetin Herve (Procrit) 10,000 unit IV TTS [facility] Last Admin: 11/08/16 10:45 Dose: 10,000 unit Heparin Sodium (Porcine) (Heparin) 3,700 units IVP TTS [facility] Multivitamins/Vitamin C (Multi-Delyn Liquid) 5 ml GT 1200 [facility] Last Admin: 11/09/16 12:19 Dose: 5 ml Pantoprazole Sodium (Protonix Inj) 40 mg IVP Q12H [facility] Last Admin: 11/09/16 21:10 Dose: 40 mg Paricalcitol (Zemplar) 1 mcg IV TTS [facility] Last Admin: 11/08/16 10:43 Dose: 1 mcg - Labs Labs: 11/07/16 15:43 11/07/16 18:05 PT 11.7 SECONDS (9.7-12.2) 11/04/16 07:45 INR 1.0 11/04/16 07:45 APTT 37 SECONDS (21-34) H D 11/04/16 13:51 - Constitutional Appears: Cachectic, Chronically Ill - Head Exam Head Exam: ATRAUMATIC - Eye Exam Eye Exam: absent: Scleral icterus Pupil Exam: absent: Fixed - Neck Exam Neck Exam: Full ROM. absent: Lymphadenopathy - Respiratory Exam Respiratory Exam: NORMAL BREATHING PATTERN - Cardiovascular Exam Cardiovascular Exam: REGULAR RHYTHM - GI/Abdominal Exam GI & Abdominal Exam: Soft - Extremities Exam Extremities Exam: absent: Calf Tenderness - Neurological Exam Neurological Exam: Awake - Psychiatric Exam Psychiatric exam: Normal Affect - Skin Skin Exam: Warm Assessment and Plan - Assessment and Plan (Free Text) Assessment: ESRD (end stage renal disease) on dialysis -patient had new permacath inserted yesterday which is functioning well; well receive hemodialsysis as per nephrology -c/w epoitin for anemia 2/2 to CKD; stable and chronic -Continue epogen -continue IV iron -Nephrocaps 1 tab daily -Zemplar 1mcg TTS with dialysis Cardiomyopathy with low EF Cardiology consult, Dr. Salmon, f/u recs which state: Medical management due to poor general condition. Due to dementia not a candidate for cath or AICD/ LifeVest TTP (thrombotic thrombocytopenic purpura); resolved resolved Vaginal Bleed; resolved 10/29: Endometrial us shows thick endometrium 10/28: ObGyn Consult on 10/27 2/2 vaginal bleeding, f/u recs - Please f/u transvaginal/pelvic ultrasound for evaluation of endometrial stripe, and re- consult. * Medication review noted for patient having received a bolus of heparin. - in the post menopausal state, it is not uncommon for a woman to experience post menopausal (vaginal) bleeding with the administration of heparin. Prophylaxis PT / OT Swallow eval/treat SCDs The possibility of home discharge was discussed with the daughter at bedside, however she did not feel comfortable having her mother home now that she is not eating well and is on PEG feeding. It seems the family has refused rehab due to funding issues. Home PT may be a better option when ready. Case discussed with Dr. Ureña. All orders entered on behalf of Dr. Niranjan Langley PGY2
--- NOTE | 2016-11-10 10:38 | PN ---
LOCATION: #356, bed #B. SUBJECTIVE: This is an 80-year-old female, seen and examined on rounds, without significant clinical changes or reported active bleeding, tolerating PEG feeding well. No recent blood workup and the entire chart is reviewed, case discussed at length with the staff as well as the family on the floor. PHYSICAL EXAMINATION: GENERAL: An 80-year-old female. VITAL SIGNS: Afebrile with pulse of 108, respiratory rate 20 to 22 with blood pressure 150/86. HEENT: Showed pale, dry mucoid membrane, nonicteric sclerae. LUNGS: Few scattered crepitations, decreased air entry at bases. HEART: Positive S1 and S2. ABDOMEN: Soft. Bowel sounds are absent. PEG tube is in place with clean stoma and clean dressing without any reported residual bleeding or resistance. No mass or organomegaly. EXTREMITIES: Lower extremities with mild edematous changes. No clubbing or cyanosis. NEUROLOGIC: No new reported neurological deficits, sensory or motor. IMPRESSION: 1. Malnutrition. 2. Hypoalbuminemia. 3. Anemia. 4. Status post percutaneous endoscopic gastrostomy insertion. 5. Failure to thrive. 6. Chronic renal failure, on hemodialysis. 7. Known history of cardiomyopathy with hypertension. 8. Known history of thrombotic thrombocytopenic purpura. SUGGESTIONS: 1. Continue current management. 2. Hematology/oncology follow up. 3. The patient for full and complete cardiology evaluation. 4. Increase the rate of feeding gradually as tolerated, that to be discussed with nephrology individual pension consultant on the case. Yasmine Oneill MD
[2016-11-10] MEDS: Multiple Vitamins Oral Solution GT SCH (12:49)
--- NOTE | 2016-11-10 18:47 | CP.PCM.PN ---
Subjective - Date & Time of Evaluation Date of Evaluation: 11/10/16 Time of Evaluation: 07:00 - Subjective Subjective: clinically same Objective - Vital Signs/Intake and Output Vital Signs (last 24 hours): Temp Pulse Resp BP Pulse Ox 98.4 F 48 L 18 157/84 H 94 L 11/10/16 15:27 11/10/16 15:27 11/10/16 15:27 11/10/16 15:27 11/10/16 15:27 Intake and Output: 11/10/16 11/10/16 06:59 18:59 Intake Total 480 1160 Balance 480 1160 - Medications Medications: Current Medications Epoetin Herve (Procrit) 10,000 unit IV TTS [facility] Last Admin: 11/08/16 10:45 Dose: 10,000 unit Heparin Sodium (Porcine) (Heparin) 3,700 units IVP TTS [facility] Hydralazine HCl (Apresoline) 10 mg IVP Q6H PRN PRN Reason: HIgh BP Multivitamins/Vitamin C (Multi-Delyn Liquid) 5 ml GT 1200 [facility] Last Admin: 11/10/16 12:49 Dose: 5 ml Pantoprazole Sodium (Protonix Inj) 40 mg IVP Q12H [facility] Last Admin: 11/10/16 12:52 Dose: 40 mg Paricalcitol (Zemplar) 1 mcg IV TTS [facility] Last Admin: 11/08/16 10:43 Dose: 1 mcg - Labs Labs: 11/07/16 15:43 11/07/16 18:05 PT 11.7 SECONDS (9.7-12.2) 11/04/16 07:45 INR 1.0 11/04/16 07:45 APTT 37 SECONDS (21-34) H D 11/04/16 13:51 - Constitutional Appears: Well - Head Exam Head Exam: ATRAUMATIC, NORMAL INSPECTION, NORMOCEPHALIC - Eye Exam Eye Exam: EOMI, Normal appearance, PERRL Pupil Exam: NORMAL ACCOMODATION, PERRL - ENT Exam ENT Exam: Mucous Membranes Moist, Normal Exam - Neck Exam Neck Exam: Full ROM, Normal Inspection. absent: Lymphadenopathy - Respiratory Exam Respiratory Exam: Decreased Breath Sounds - Cardiovascular Exam Cardiovascular Exam: REGULAR RHYTHM, +S1, +S2 - GI/Abdominal Exam GI & Abdominal Exam: Soft, Diminished Bowel Sounds - Rectal Exam Rectal Exam: Deferred Assessment and Plan (1) Cardiac dysrhythmia Status: Acute (2) ESRD (end stage renal disease) on dialysis Status: Acute (3) Pulmonary edema Status: Acute (4) MARCO (acute kidney injury) Status: Acute (5) Acute respiratory failure requiring reintubation Status: Acute (6) Arthritis Status: Acute (7) CHF (congestive heart failure) Status: Acute (8) Dehydration Status: Acute (9) Dehydration Status: Acute (10) Diverticulosis Status: Acute (11) Elevated CEA Status: Acute (12) Hypertension Status: Acute (13) Inguinal lymphadenopathy Status: Acute (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
--- NOTE | 2016-11-10 18:49 | CP.PCM.PN ---
Subjective - Date & Time of Evaluation Date of Evaluation: 11/10/16 Time of Evaluation: 18:49 - Subjective Subjective: pt is seen and examined, follow up consult is dictated #[id number] Objective - Vital Signs/Intake and Output Vital Signs (last 24 hours): Temp Pulse Resp BP Pulse Ox 98.4 F 48 L 18 157/84 H 94 L 11/10/16 15:27 11/10/16 15:27 11/10/16 15:27 11/10/16 15:27 11/10/16 15:27 Intake and Output: 11/10/16 11/10/16 06:59 18:59 Intake Total 480 1160 Balance 480 1160 - Medications Medications: Current Medications Epoetin Herve (Procrit) 10,000 unit IV TTS [facility] Last Admin: 11/08/16 10:45 Dose: 10,000 unit Heparin Sodium (Porcine) (Heparin) 3,700 units IVP TTS [facility] Hydralazine HCl (Apresoline) 10 mg IVP Q6H PRN PRN Reason: HIgh BP Multivitamins/Vitamin C (Multi-Delyn Liquid) 5 ml GT 1200 [facility] Last Admin: 11/10/16 12:49 Dose: 5 ml Pantoprazole Sodium (Protonix Inj) 40 mg IVP Q12H [facility] Last Admin: 11/10/16 12:52 Dose: 40 mg Paricalcitol (Zemplar) 1 mcg IV TTS [facility] Last Admin: 11/08/16 10:43 Dose: 1 mcg - Labs Labs: 11/07/16 15:43 11/07/16 18:05 PT 11.7 SECONDS (9.7-12.2) 11/04/16 07:45 INR 1.0 11/04/16 07:45 APTT 37 SECONDS (21-34) H D 11/04/16 13:51
--- NOTE | 2016-11-11 06:26 | PN ---
FOLLOWUP RENAL CONSULTATION DATE: LOCATED: The patient is located in room 356, bed B. REQUESTED BY: Dr. Kavon Ureña REASON FOR FOLLOWUP: End-stage renal disease, for continuation of the hemodialysis. SUBJECTIVE: Denise Garcia is an 81 years old elderly female with a past medical history significant for longstanding hypertension, rheumatoid arthritis, CHF, cardiomyopathy, thrombocytopenia, anemia, TTP, end-stage renal disease, on hemodialysis three times a week, Thursday, , and Thursday for last three months. The patient is resting comfortably not in acute distress. No chest pain. No palpitation. No fever and no cough. PHYSICAL EXAMINATION: GENERAL: Ms. Denise Garcia is an 81 years old elderly female, moderately build, moderately nourished, not in distress. VITAL SIGNS: Blood pressure 157/84, pulse about 120, respirations 18, and temperature 98.4, saturation 94%. Height 5 feet 2 inches and weight is 120 pounds. HEENT: Pupils are normal and reactive to light. Conjunctivae pink. Sclerae anicteric. Trachea is midline. LUNGS: Symmetric on both sides. Bilateral breath sounds are present and clear on auscultation. CVS: [place] at the sixth intercostal space, midclavicular line. S1 and S2 audible. No murmur, no gallop. ABDOMEN: Normal in appearance. Soft, tympanic. No guarding and no rigidity. The patient has a PEG tube. DOPSTER: The patient is arousable. Following simple commands. EXTREMITIES: No cyanosis and no clubbing. No edema. SENSORY SYSTEM: Grossly within normal limits. MOTOR SYSTEM: The patient is bedridden for the last three months. CURRENT MEDICATIONS: Include as follows; hydralazine 10 mg IV push q.6 hours p.r.n. and subcutaneous heparin 3700 units into the PermCath in each port and multivitamin liquid ____ Procrit 10,000 units three times a week and Protonix 40 mg q.12 hours, Zemplar 1 mcg IV three times a week. LABORATORY DATA: No new labs are available for today. As of 11/07/2016, BUN and creatinine 28/2.3, H&H 10.4 and 32.9. ASSESSMENT AND PLAN: In summary, Ms. Denise Garcia is an 81 years old elderly female with a history of hypertension, rheumatoid arthritis, cardiomyopathy, congestive heart failure, anemia, thrombocytopenia, thrombotic thrombocytopenic purpura, renal failure, on hemodialysis. 1. End-stage renal disease. Continue hemodialysis three times a week, Thursday, and Thursday. 2. Hypertension. Blood pressure is slightly high. Started on hydralazine. Considered to add Norvasc 5 mg by PEG tube daily, 3. Cardiomyopathy. The patient is not fluid overload at this time and the lungs are clear. 4. Status post thrombotic thrombocytopenic purpura. The patient received plasmapheresis and also got Rituximab q. weekly x4 doses and now platelets are within normal limits. Continue to monitor platelets and also check CBC and CMP and phosphorus level and albumin in a.m. The patient is scheduled for hemodialysis in a.m. Thank you for allowing me to participate in your patient's care. Horacio Graham MD
[2016-11-11 08:34] LABS: BASO # 0.1 K/uL (0.0-0.2); BASO % 0.6 % (0.0-2.0); EOS # 0.2 K/uL (0.0-0.7); EOS % 2.6 % (0.0-4.0); HEMATOCRIT 36.4 % (34.0-47.0); LYMPH # 1.4 K/uL (1.0-4.3); LYMPH % 15.4 % (20.0-40.0); MEAN CELL VOLUME 89.3 fL (81.0-99.0); MEAN CORPUSCULAR HEMOGLOBIN 27.7 pg (27.0-31.0); MEAN PLATELET VOLUME 10.4 fL (7.2-11.7); MONO # 1.3 K/uL (0.0-0.8); MONO % 14.6 % (0.0-10.0); NRBC % 0.2 % (0.0-2.0); RED CELL DISTRIBUTION WIDTH 24.5 % (11.5-14.5); WHITE BLOOD COUNT 8.9 K/uL (4.8-10.8)
[2016-11-11 08:55] LABS: BILIRUBIN,TOTAL 0.5 mg/dL (0.2-1.3); PHOSPHOROUS 2.1 mg/dL (2.5-4.5); TOTAL PROTEIN 7.5 g/dL (6.3-8.3)
[2016-11-11 08:56] LABS: CALCIUM 10.1 mg/dl (8.6-10.4)
[2016-11-11 09:08] LABS: ALB/GLOB RATIO 0.7 (1.0-2.1)
[2016-11-11 09:10] LABS: POTASSIUM 7.2 mmol/L (3.6-5.2)
--- NOTE | 2016-11-11 12:01 | CP.PCM.PN ---
Subjective - Date & Time of Evaluation Date of Evaluation: 11/11/16 Time of Evaluation: 10:30 - Subjective Subjective: call or contact centre team leader resident note: I was called to evaluate this patient who was bradycardic in dialysis. Patient' s pulse was 41 on the monitor with a systolic BP was in the 150s over diastolic BP in the low 80s. The patient's admitting physician Dr. Kavon Ureña was called and notified. Dr. Ureña stated to call Dr. Salmon the color worker on the case. I ordered an EKG which showed some premature ventricular complexes with bigeminy as well as LBBB which was different from prior EKG. I called Dr. Salmon and notified him of the EKG changes, and he asked me to get a stat ICU consult for hyperkalemia emergency. Dr. Betancourt the moss bleacher was called and agreed to evaluate the patient. Objective - Vital Signs/Intake and Output Vital Signs (last 24 hours): Temp Pulse Resp BP Pulse Ox 99 F 41 L 16 131/78 97 11/11/16 10:05 11/11/16 10:05 11/11/16 10:05 11/11/16 10:20 11/11/16 10:05 Intake and Output: 11/11/16 11/11/16 06:59 18:59 Intake Total 480 Balance 480 - Medications Medications: Current Medications Epoetin Herve (Procrit) 10,000 unit IV TTS [facility] Last Admin: 11/08/16 10:45 Dose: 10,000 unit Heparin Sodium (Porcine) (Heparin) 3,700 units IVP TTS [facility] Hydralazine HCl (Apresoline) 10 mg IVP Q6H PRN PRN Reason: HIgh BP Multivitamins/Vitamin C (Multi-Delyn Liquid) 5 ml GT 1200 [facility] Last Admin: 11/10/16 12:49 Dose: 5 ml Pantoprazole Sodium (Protonix Inj) 40 mg IVP Q12H [facility] Last Admin: 11/11/16 09:36 Dose: 40 mg Paricalcitol (Zemplar) 1 mcg IV TTS [facility] Last Admin: 11/08/16 10:43 Dose: 1 mcg - Labs Labs: 11/11/16 08:27 11/11/16 08:27 PT 11.7 SECONDS (9.7-12.2) 11/04/16 07:45 INR 1.0 11/04/16 07:45 APTT 37 SECONDS (21-34) H D 11/04/16 13:51
--- NOTE | 2016-11-11 12:10 | PN ---
DATE: LOCATION: #356, bed B. SUBJECTIVE: This is an 81 years old female post PEG insertion, seen and examined in rounds without significant clinical changes or reported active bleeding. Tolerating PEG feeding well. The patient is still on hemodialysis. Today's lab showed normal hemoglobin and hematocrit with normal platelet count, but with increased potassium of 7.2, with increased BUN to 80, creatinine 4.6, with blood glucose level elevated to 126 with low phosphorus of 2.1 and mildly elevated AST to 44 with low albumin of 3.2. PHYSICAL EXAMINATION: GENERAL: An 81 years old female. VITAL SIGNS: Afebrile with pulse of 54 as reported with respiratory rate of 16, and blood pressure of 162/82. HEENT: Showed pale, dry oral mucous membrane. Nonicteric sclerae. LUNGS: Few scattered crepitation. Decreased air entry at bases. HEART: Positive S1 and S2. ABDOMEN: Soft. Bowel sounds are present. PEG tube is in place without residual bleeding or evidence of anterior abdominal wall cellulitis. EXTREMITIES: Lower extremities with mild edematous changes. No clubbing or cyanosis. NEUROLOGIC: No reported new neurological deficit, sensory, or motor. IMPRESSION: 1. Malnutrition with hypoalbuminemia. 2. Failure to thrive. 3. Status post percutaneous endoscopic gastrostomy insertion. 4. Chronic renal failure on hemodialysis. 5. Electrolyte imbalance with hyperkalemia secondary to above. 6. Anemia secondary to above. 7. Known history of hypertension with cardiomyopathy. 8. Known history of thrombotic thrombocytopenic purpura. SUGGESTIONS: 1. Continue current management. 2. The patient may need stat hemodialysis. Further recommendation to follow and no need for any further aggressive GI workup. Yasmine Oneill MD cc: Yasmine Oneill MD
--- NOTE | 2016-11-11 12:35 | CP.PCM.PN ---
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 Objective - Vital Signs/Intake and Output Vital Signs (last 24 hours): Temp Pulse Resp BP Pulse Ox 99 F 41 L 16 131/78 97 11/11/16 10:05 11/11/16 10:05 11/11/16 10:05 11/11/16 10:20 11/11/16 10:05 Intake and Output: 11/11/16 11/11/16 06:59 18:59 Intake Total 480 Balance 480 - Medications Medications: Current Medications Epoetin Herve (Procrit) 10,000 unit IV TTS [facility] Last Admin: 11/08/16 10:45 Dose: 10,000 unit Heparin Sodium (Porcine) (Heparin) 3,700 units IVP TTS [facility] Hydralazine HCl (Apresoline) 10 mg IVP Q6H PRN PRN Reason: HIgh BP Multivitamins/Vitamin C (Multi-Delyn Liquid) 5 ml GT 1200 [facility] Last Admin: 11/10/16 12:49 Dose: 5 ml Pantoprazole Sodium (Protonix Inj) 40 mg IVP Q12H [facility] Last Admin: 11/11/16 09:36 Dose: 40 mg Paricalcitol (Zemplar) 1 mcg IV TTS [facility] Last Admin: 11/08/16 10:43 Dose: 1 mcg - Labs Labs: 11/11/16 08:27 11/11/16 08:27 PT 11.7 SECONDS (9.7-12.2) 11/04/16 07:45 INR 1.0 11/04/16 07:45 APTT 37 SECONDS (21-34) H D 11/04/16 13:51
--- NOTE | 2016-11-11 13:25 | PN ---
FOLLOWUP RENAL CONSULTATION LOCATION: The patient is located in room #56, bed #B. REQUESTED BY: Kavon Ureña MD REASON FOR FOLLOWUP: End-stage renal disease, for continuation of hemodialysis. SUBJECTIVE: The patient is now an 80-year-old elderly female with a past medical history significant for longstanding hypertension, rheumatoid arthritis, CHF, cardiomyopathy, anemia and thrombocytopenia, TTP and end-stage renal disease, on hemodialysis for the last 3 months, bedridden; scheduled for hemodialysis today, the patient went for the dialysis and the patient was found to be bradycardic and potassium was also, more than 7 and the patient was dialyzed for about 1 hour and subsequently, the patient had poor blood flow in PermCath and unable to continue dialysis and t-PA was placed and waiting to continuation of the hemodialysis. The patient is not in acute distress. No chest pain. No palpitation. PHYSICAL EXAMINATION: VITAL SIGNS: As follows, blood pressure 131/78, pulse 41, respirations about 16 and temperature 99. Saturation 97%. Height 5 feet 2 inches and weight is 120 pounds. GENERAL: The patient is an 80-year-old elderly female, moderately built, moderately nourished, not in distress. HEENT: Pupils are normal and reacting to light and conjunctivae pink. Sclerae anicteric. Tongue is moist. NECK: No thyroid enlargement. Trachea is midline. LUNGS: Symmetric on both sides. Bilateral breath sounds are present. Clear on auscultation. CARDIOVASCULAR SYSTEM: [place] at the sixth intercostal space, midclavicular line. S1 and S2 audible. No bradycardic. No murmur. No gallop. ABDOMEN: Status post PEG tube placement, abdomen is soft, tympanic. No guarding. No rigidity. No hepatosplenomegaly. CENTRAL NERVOUS SYSTEM: The patient is arousable, following simple commands. Sensory system is grossly within normal limits. Motor: Moving all extremities, but the patient is bedridden for the last 3 months. CURRENT MEDICATIONS: As follows, hydralazine 10 mg IV q. 6 hours p.r.n.; heparin 3700 units in PermCath 3 times a week; multivitamin liquid 5 mL daily; Epogen 10,000 units three times a week; Protonix 40 mg q. 12 and Zemplar 1 mcg three times a week. LABORATORY DATA: Include as of 11/11/2016, WBC 8.9, hemoglobin 11.3, hematocrit 36.4, platelets 202. Sodium is 144, potassium is 7.2, chloride 101, CO2 of 30, BUN 80, creatinine 4.6 and glucose 126. Calcium is 10.1. Phosphorus 2.1. Total bili 0.5, AST 44, ALT 46, alkaline phosphatase 237. Total protein 7.5, albumin is 3.2. ASSESSMENT: In summary, the patient is an 80-year-old elderly female with a history of hypertension; rheumatoid arthritis; cardiomyopathy; congestive heart failure; respiratory failure, status post intubation x2; anemia; thrombocytopenia; thrombotic thrombocytopenic purpura; renal failure, now with hyperkalemia and bradycardia with a heart rate about 41 with left bundle branch block. 1. 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 No significant improvement in renal function. Continue hemodialysis 3 times a week, Thursday, , and Thursday. 2. Hyperkalemia secondary to end-stage renal disease and most likely secondary to tube feeding. 3. poorly functioning catheter. 4. Cardiomyopathy. PLAN: Place t-PA 2 mg in each port and we will try to dialyze after half an hour and repeat potassium post dialysis and vascular surgery consult for evaluation of the PermCath. We will follow with you. Thank you for allowing me to participate in your patient's care. Horacio Graham MD
[2016-11-11] MEDS: Multiple Vitamins Oral Solution GT SCH (13:44)
[2016-11-11] MEDS: Paricalcitol 2 mcg/ml Inj IV SCH (14:49)
[2016-11-11 16:50] LABS: POTASSIUM 4.9 mmol/L (3.6-5.2)
[2016-11-11 16:54] LABS: CALCIUM 9.1 mg/dl (8.6-10.4); MAGNESIUM 2.2 mg/dL (1.6-2.3)
--- NOTE | 2016-11-11 17:37 | CP.PCM.PN ---
Subjective - Date & Time of Evaluation Date of Evaluation: 11/11/16 Time of Evaluation: 07:00 - Subjective Subjective: clinically same Objective - Vital Signs/Intake and Output Vital Signs (last 24 hours): Temp Pulse Resp BP Pulse Ox 98.3 F 99 H 20 141/84 95 11/11/16 15:00 11/11/16 15:00 11/11/16 15:00 11/11/16 15:00 11/11/16 15:00 Intake and Output: 11/11/16 11/11/16 06:59 18:59 Intake Total 480 540 Balance 480 540 - Medications Medications: Current Medications Epoetin Herve (Procrit) 10,000 unit IV TTS [facility] Heparin Sodium (Porcine) (Heparin) 3,700 units IVP TTS [facility] Last Admin: 11/11/16 14:51 Dose: 3,700 units Hydralazine HCl (Apresoline) 10 mg IVP Q6H PRN PRN Reason: HIgh BP Multivitamins/Vitamin C (Multi-Delyn Liquid) 5 ml GT 1200 [facility] Last Admin: 11/11/16 13:44 Dose: Not Given Pantoprazole Sodium (Protonix Inj) 40 mg IVP Q12H [facility] Last Admin: 11/11/16 09:36 Dose: 40 mg Paricalcitol (Zemplar) 1 mcg IV TTS [facility] Last Admin: 11/11/16 14:49 Dose: 1 mcg - Labs Labs: 11/11/16 08:27 11/11/16 16:37 PT 11.7 SECONDS (9.7-12.2) 11/04/16 07:45 INR 1.0 11/04/16 07:45 APTT 37 SECONDS (21-34) H D 11/04/16 13:51 - Constitutional Appears: Well - Head Exam Head Exam: ATRAUMATIC, NORMAL INSPECTION, NORMOCEPHALIC - Eye Exam Eye Exam: EOMI, Normal appearance, PERRL Pupil Exam: NORMAL ACCOMODATION, PERRL - ENT Exam ENT Exam: Mucous Membranes Moist, Normal Exam - Neck Exam Neck Exam: Full ROM, Normal Inspection. absent: Lymphadenopathy - Respiratory Exam Respiratory Exam: Decreased Breath Sounds - Cardiovascular Exam Cardiovascular Exam: REGULAR RHYTHM, +S1, +S2 - GI/Abdominal Exam GI & Abdominal Exam: Soft, Diminished Bowel Sounds - Rectal Exam Rectal Exam: Deferred Assessment and Plan (1) Cardiac dysrhythmia Status: Acute (2) ESRD (end stage renal disease) on dialysis Status: Acute (3) Pulmonary edema Status: Acute (4) MARCO (acute kidney injury) Status: Acute (5) Acute respiratory failure requiring reintubation Status: Acute (6) Arthritis Status: Acute (7) CHF (congestive heart failure) Status: Acute (8) Dehydration Status: Acute (9) Dehydration Status: Acute (10) Diverticulosis Status: Acute (11) Elevated CEA Status: Acute (12) Hypertension Status: Acute (13) Inguinal lymphadenopathy Status: Acute (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
--- NOTE | 2016-11-11 20:00 | CP.PCM.PN ---
Subjective - Date & Time of Evaluation Date of Evaluation: 11/08/16 Time of Evaluation: 15:00 - Subjective Subjective: Appears comfortable Objective - Vital Signs/Intake and Output Vital Signs (last 24 hours): Temp Pulse Resp BP Pulse Ox 98.2 F 95 H 18 143/61 95 11/11/16 18:12 11/11/16 18:12 11/11/16 18:12 11/11/16 18:12 11/11/16 18:12 Intake and Output: 11/11/16 11/12/16 18:59 06:59 Intake Total 540 Balance 540 - Medications Medications: Current Medications Epoetin Herve (Procrit) 10,000 unit IV TTS JESSI Heparin Sodium (Porcine) (Heparin) 3,700 units IVP TTS JESSI Last Admin: 11/11/16 14:51 Dose: 3,700 units Hydralazine HCl (Apresoline) 10 mg IVP Q6H PRN PRN Reason: HIgh BP Multivitamins/Vitamin C (Multi-Delyn Liquid) 5 ml GT 1200 JESSI Last Admin: 11/11/16 13:44 Dose: Not Given Pantoprazole Sodium (Protonix Inj) 40 mg IVP Q12H JESSI Last Admin: 11/11/16 09:36 Dose: 40 mg Paricalcitol (Zemplar) 1 mcg IV TTS JESSI Last Admin: 11/11/16 14:49 Dose: 1 mcg - Labs Labs: 11/11/16 08:27 11/11/16 16:37 PT 11.7 SECONDS (9.7-12.2) 11/04/16 07:45 INR 1.0 11/04/16 07:45 APTT 37 SECONDS (21-34) H D 11/04/16 13:51 - Head Exam Head Exam: ATRAUMATIC - Eye Exam Eye Exam: Normal appearance - ENT Exam ENT Exam: Mucous Membranes Dry - Respiratory Exam Respiratory Exam: NORMAL BREATHING PATTERN - Cardiovascular Exam Cardiovascular Exam: +S1, +S2 - GI/Abdominal Exam GI & Abdominal Exam: Normal Bowel Sounds - Extremities Exam Extremities Exam: Normal Inspection Assessment and Plan (1) Anemia Assessment & Plan: anemia of CKD and chronic disease Status: Acute (2) TTP (thrombotic thrombocytopenic purpura) Assessment & Plan: resolved Status: Acute
--- NOTE | 2016-11-11 20:02 | CP.PCM.PN ---
Subjective - Date & Time of Evaluation Date of Evaluation: 11/10/16 Time of Evaluation: 20:15 - Subjective Subjective: Appears comfortable Objective - Vital Signs/Intake and Output Vital Signs (last 24 hours): Temp Pulse Resp BP Pulse Ox 98.2 F 95 H 18 143/61 95 11/11/16 18:12 11/11/16 18:12 11/11/16 18:12 11/11/16 18:12 11/11/16 18:12 Intake and Output: 11/11/16 11/12/16 18:59 06:59 Intake Total 540 Balance 540 - Medications Medications: Current Medications Epoetin Herve (Procrit) 10,000 unit IV TTS JESSI Heparin Sodium (Porcine) (Heparin) 3,700 units IVP TTS JESSI Last Admin: 11/11/16 14:51 Dose: 3,700 units Hydralazine HCl (Apresoline) 10 mg IVP Q6H PRN PRN Reason: HIgh BP Multivitamins/Vitamin C (Multi-Delyn Liquid) 5 ml GT 1200 JESSI Last Admin: 11/11/16 13:44 Dose: Not Given Pantoprazole Sodium (Protonix Inj) 40 mg IVP Q12H JESSI Last Admin: 11/11/16 09:36 Dose: 40 mg Paricalcitol (Zemplar) 1 mcg IV TTS JESSI Last Admin: 11/11/16 14:49 Dose: 1 mcg - Labs Labs: 11/11/16 08:27 11/11/16 16:37 PT 11.7 SECONDS (9.7-12.2) 11/04/16 07:45 INR 1.0 11/04/16 07:45 APTT 37 SECONDS (21-34) H D 11/04/16 13:51 - Head Exam Head Exam: ATRAUMATIC - Eye Exam Eye Exam: Normal appearance - ENT Exam ENT Exam: Mucous Membranes Dry - Respiratory Exam Respiratory Exam: NORMAL BREATHING PATTERN - Cardiovascular Exam Cardiovascular Exam: +S1, +S2 - GI/Abdominal Exam GI & Abdominal Exam: Normal Bowel Sounds Assessment and Plan (1) Anemia Assessment & Plan: anemia of CKD and chronic disease Status: Acute (2) TTP (thrombotic thrombocytopenic purpura) Assessment & Plan: resolved Status: Acute
--- NOTE | 2016-11-11 20:03 | CP.PCM.PN ---
Subjective - Date & Time of Evaluation Date of Evaluation: 11/11/16 Time of Evaluation: 12:00 - Subjective Subjective: Appears comfortable, seen on HD Objective - Vital Signs/Intake and Output Vital Signs (last 24 hours): Temp Pulse Resp BP Pulse Ox 98.2 F 95 H 18 143/61 95 11/11/16 18:12 11/11/16 18:12 11/11/16 18:12 11/11/16 18:12 11/11/16 18:12 Intake and Output: 11/11/16 11/12/16 18:59 06:59 Intake Total 540 Balance 540 - Medications Medications: Current Medications Epoetin Herve (Procrit) 10,000 unit IV TTS JESSI Heparin Sodium (Porcine) (Heparin) 3,700 units IVP TTS JESSI Last Admin: 11/11/16 14:51 Dose: 3,700 units Hydralazine HCl (Apresoline) 10 mg IVP Q6H PRN PRN Reason: HIgh BP Multivitamins/Vitamin C (Multi-Delyn Liquid) 5 ml GT 1200 JESSI Last Admin: 11/11/16 13:44 Dose: Not Given Pantoprazole Sodium (Protonix Inj) 40 mg IVP Q12H JESSI Last Admin: 11/11/16 09:36 Dose: 40 mg Paricalcitol (Zemplar) 1 mcg IV TTS JESSI Last Admin: 11/11/16 14:49 Dose: 1 mcg - Labs Labs: 11/11/16 08:27 11/11/16 16:37 PT 11.7 SECONDS (9.7-12.2) 11/04/16 07:45 INR 1.0 11/04/16 07:45 APTT 37 SECONDS (21-34) H D 11/04/16 13:51 - Head Exam Head Exam: ATRAUMATIC - Eye Exam Eye Exam: Normal appearance - ENT Exam ENT Exam: Mucous Membranes Dry - Respiratory Exam Respiratory Exam: NORMAL BREATHING PATTERN - Cardiovascular Exam Cardiovascular Exam: +S1, +S2 - GI/Abdominal Exam GI & Abdominal Exam: Normal Bowel Sounds Assessment and Plan (1) Anemia Assessment & Plan: anemia of CKD and chronic disease Status: Acute (2) TTP (thrombotic thrombocytopenic purpura) Assessment & Plan: resolved Status: Acute
--- NOTE | 2016-11-11 23:48 | CP.PCM.PN ---
Subjective - Date & Time of Evaluation Date of Evaluation: 11/11/16 Time of Evaluation: 15:30 - Subjective Subjective: Patient seen and evaluated Hyperkalemia and EKG changes EKG now better after correcting K Transfer to [facility] for further observation Physical Examination - Head Exam Head Exam: ATRAUMATIC - Eye Exam Eye Exam: EOMI, PERRL - ENT Exam ENT Exam: Mucous Membranes Moist - Neck Exam Neck Exam: Full ROM, Normal Inspection - Respiratory Exam Respiratory Exam: Clear to Ausculation Bilateral, NORMAL BREATHING PATTERN - Cardiovascular Exam Cardiovascular Exam: REGULAR RHYTHM, +S1, +S2 - GI/Abdominal Exam GI & Abdominal Exam: Soft, Normal Bowel Sounds - Extremities Exam Extremities Exam: Full ROM - Neurological Exam Neurological Exam: Alert - Skin Skin Exam: Warm Objective - Vital Signs/Intake and Output Vital Signs (last 24 hours): Temp Pulse Resp BP Pulse Ox 98.2 F 95 H 18 143/61 95 11/11/16 18:12 11/11/16 18:12 11/11/16 18:12 11/11/16 18:12 11/11/16 18:12 Intake and Output: 11/11/16 11/12/16 18:59 06:59 Intake Total 540 300 Balance 540 300 - Medications Medications: Current Medications Epoetin Herve (Procrit) 10,000 unit IV TTS JESSI Heparin Sodium (Porcine) (Heparin) 3,700 units IVP TTS JESSI Last Admin: 11/11/16 14:51 Dose: 3,700 units Hydralazine HCl (Apresoline) 10 mg IVP Q6H PRN PRN Reason: HIgh BP Multivitamins/Vitamin C (Multi-Delyn Liquid) 5 ml GT 1200 JESSI Last Admin: 11/11/16 13:44 Dose: Not Given Pantoprazole Sodium (Protonix Inj) 40 mg IVP Q12H JESSI Last Admin: 11/11/16 22:54 Dose: 40 mg Paricalcitol (Zemplar) 1 mcg IV TTS JESSI Last Admin: 11/11/16 14:49 Dose: 1 mcg - Labs Labs: 11/11/16 08:27 11/11/16 16:37 PT 11.7 SECONDS (9.7-12.2) 11/04/16 07:45 INR 1.0 11/04/16 07:45 APTT 37 SECONDS (21-34) H D 11/04/16 13:51 Assessment and Plan - Assessment and Plan (Free Text) Assessment: Assessment and Plan - Assessment and Plan (Free Text) Assessment: 1. Cardiomyopathy with Low EF Medical management due to poor general condition. Due to dementia not a candidate for cath or AICD/LifeVest 2. CKD on HD 3. Dementia 4. Hyperkaemia improved
[2016-11-12 07:21] LABS: BASO % 0.4 % (0.0-2.0); EOS # 0.4 K/uL (0.0-0.7); EOS % 3.9 % (0.0-4.0); HEMATOCRIT 34.3 % (34.0-47.0); LYMPH # 1.2 K/uL (1.0-4.3); LYMPH % 11.9 % (20.0-40.0); MEAN CELL VOLUME 88.9 fL (81.0-99.0); MEAN CORPUSCULAR HEMOGLOBIN 27.8 pg (27.0-31.0); MEAN CORPUSCULAR HGB CONC 31.3 g/dL (33.0-37.0); MEAN PLATELET VOLUME 10.1 fL (7.2-11.7); MONO # 1.6 K/uL (0.0-0.8); MONO % 15.9 % (0.0-10.0); NRBC % 0.1 % (0.0-2.0); RED CELL DISTRIBUTION WIDTH 24.4 % (11.5-14.5)
[2016-11-12 07:54] LABS: POTASSIUM 5.2 mmol/L (3.6-5.2)
[2016-11-12 07:56] LABS: ALB/GLOB RATIO 0.9 (1.0-2.1); BILIRUBIN,TOTAL 0.6 mg/dL (0.2-1.3); TOTAL PROTEIN 6.8 g/dL (6.3-8.3)
[2016-11-12 07:57] LABS: CALCIUM 9.3 mg/dl (8.6-10.4)
[2016-11-12] MEDS ORDERED: Lidocaine 2% Inj (20ml) ONE (12:39)
[2016-11-12] MEDS ORDERED: Iodixanol 320 MG/ML 100 ML BOTTLE IV ONE (12:42)
--- NOTE | 2016-11-12 12:54 | PCM.SURG1 ---
Surgeon's Initial Post Op Note - Surgeon's Notes Surgeon: Asher Connelly MD Curber: NONE Type of Anesthesia: Local Pre-Operative Diagnosis: ESRD, NON FUNCTIONAL HD CATHETER Operative Findings: SVC gram showed no fibrin. No significant stenosis. Post-Operative Diagnosis: ESRD, NON FUNCTIONAL HD CATHETER Operation Performed: Superior venacavagram. HD catheter change. Specimen/Specimens Removed: NONE Estimated Blood Loss: EBL {In ML}: 2 Blood Products Given: N/A Drains Used: No Drains Post-Op Condition: Fair Date of Surgery/Procedure: 11/12/16 Time of Surgery/Procedure: 12:50
--- NOTE | 2016-11-12 12:59 | PN ---
LOCATION: [facility], bed A. SUBJECTIVE: This is an 81-year-old female, seen and examined on rounds, without significant clinical changes or reported active bleeding, tolerating PEG tube well. Case discussed with the staff at length. Today's lab showed low hemoglobin of 10.7 with normal platelet count with increase BUN of 36 and creatinine of 3.1, on hemodialysis with AST elevated at 54, alkaline phosphatase 197 with low albumin at 3.1. PHYSICAL EXAMINATION: GENERAL: An 81-year-old female. VITAL SIGNS: Afebrile with pulse of 100 and blood pressure of 136/84 with respiratory rate 20 to 22. Rest of the physical examination was in normal limit and PEG tube is in place without evidence of anterior abdominal wall cellulitis. No bleeding, no residual. IMPRESSION: 1. Malnutrition. 2. Status post percutaneous endoscopic gastrostomy insertion. 3. Mild anemia. 4. History of hypertension with cardiomyopathy. 5. History of thrombotic thrombocytopenic purpura. SUGGESTIONS: 1. Continue current management. 2. Increase the rate of feeding gradually. Yasmine Oneill MD
--- NOTE | 2016-11-12 14:45 | SPECPROC ---
PROCEDURE: Date of procedure: 11/12/2016 Procedure: 1. Replacement of left IJ tunneled hemodialysis catheter 2. Superior vena cavagram Medications: 8cc 2 percent lidocaine HISTORY: End-stage renal disease, nonfunctional left IJ hemodialysis catheter TECHNIQUE: Following informed consent and procedure time-out, the patient was placed supine on the interventional table. The existing left IJ tunneled hemodialysis catheter surrounding skin were prepped and draped in the usual sterile fashion. Spot fluoroscopic image showed a left IJ catheter in place. The existing catheter was partially removed over a guidewire. A superior vena cavagram was then performed through existing catheter. The catheter was then exchanged for a new hemodialysis catheter, 19 centimeter cuff to tip. The catheter's tip is confirmed with spot x-ray and is the SVC. The catheter was tested and has adequate blood flow for dialysis. The catheter was flushed and locked with heparin per specified amount. The catheter secured to the skin with a 2-0 Surgipro suture. Findings: Superior vena cavagram showed normal SVC with no significant stenosis or fibrin sheath. IMPRESSION: Superior vena cavagram showed no stenosis and no fibrin sheath. Exchange of left IJ tunneled hemodialysis catheter for a new hemodialysis catheter. Tip of the catheter is confirmed with x-ray and is in the SVC. The catheter is functional and ready for use.
--- NOTE | 2016-11-12 14:51 | SPECPROC ---
PROCEDURE: Date of procedure: 11/07/2016 Procedure: 1. Replacement of left IJ tunneled hemodialysis catheter Medications: 8 cc 2 percent lidocaine HISTORY: End-stage renal disease, nonfunctional left IJ hemodialysis catheter TECHNIQUE: Following informed consent and procedure time-out, the patient was placed supine on the interventional table. The existing left IJ tunneled hemodialysis catheter surrounding skin were prepped and draped in the usual sterile fashion. Spot fluoroscopic image showed a left IJ catheter in place. The existing catheter was removed over a guidewire and exchanged for a new hemodialysis catheter, 19 centimeter cuff to tip. The catheter's tip is confirmed with spot x-ray and is the SVC. The catheter was tested and has adequate blood flow for dialysis. The catheter was flushed and locked with heparin per specified amount. The catheter secured to the skin with a 2-0 Surgipro suture. IMPRESSION: . Exchange of left IJ tunneled hemodialysis catheter for a new hemodialysis catheter. Tip of the catheter is confirmed with x-ray and is in the SVC. The catheter is functional and ready for use.
--- NOTE | 2016-11-12 19:55 | CP.PCM.PN ---
Subjective - Date & Time of Evaluation Date of Evaluation: 11/12/16 Time of Evaluation: 10:20 - Subjective Subjective: clinically same Objective - Vital Signs/Intake and Output Vital Signs (last 24 hours): Temp Pulse Resp BP Pulse Ox 98.4 F 96 H 18 142/80 95 11/12/16 15:29 11/12/16 15:29 11/12/16 15:29 11/12/16 15:29 11/12/16 15:29 - Medications Medications: Current Medications Epoetin Herve (Procrit) 10,000 unit IV TTS JESSI Heparin Sodium (Porcine) (Heparin) 3,700 units IVP TTS JESSI Last Admin: 11/11/16 14:51 Dose: 3,700 units Hydralazine HCl (Apresoline) 10 mg IVP Q6H PRN PRN Reason: HIgh BP Multivitamins/Vitamin C (Multi-Delyn Liquid) 5 ml GT 1200 JESSI Last Admin: 11/11/16 13:44 Dose: Not Given Pantoprazole Sodium (Protonix Inj) 40 mg IVP Q12H JESSI Last Admin: 11/12/16 10:03 Dose: 40 mg Paricalcitol (Zemplar) 1 mcg IV TTS JESSI Last Admin: 11/11/16 14:49 Dose: 1 mcg - Labs Labs: 11/12/16 07:13 11/12/16 07:13 PT 11.7 SECONDS (9.7-12.2) 11/04/16 07:45 INR 1.0 11/04/16 07:45 APTT 37 SECONDS (21-34) H D 11/04/16 13:51 - Constitutional Appears: Well - Head Exam Head Exam: ATRAUMATIC, NORMAL INSPECTION, NORMOCEPHALIC - Eye Exam Eye Exam: EOMI, Normal appearance, PERRL Pupil Exam: NORMAL ACCOMODATION, PERRL - ENT Exam ENT Exam: Mucous Membranes Moist, Normal Exam - Neck Exam Neck Exam: Full ROM, Normal Inspection. absent: Lymphadenopathy - Respiratory Exam Respiratory Exam: Decreased Breath Sounds - Cardiovascular Exam Cardiovascular Exam: REGULAR RHYTHM, +S1, +S2 - GI/Abdominal Exam GI & Abdominal Exam: Soft, Diminished Bowel Sounds - Rectal Exam Rectal Exam: Deferred Assessment and Plan (1) Cardiac dysrhythmia Status: Acute (2) ESRD (end stage renal disease) on dialysis Status: Acute (3) Pulmonary edema Status: Acute (4) MARCO (acute kidney injury) Status: Acute (5) Acute respiratory failure requiring reintubation Status: Acute (6) Arthritis Status: Acute (7) CHF (congestive heart failure) Status: Acute (8) Dehydration Status: Acute (9) Dehydration Status: Acute (10) Diverticulosis Status: Acute (11) Elevated CEA Status: Acute (12) Hypertension Status: Acute (13) Inguinal lymphadenopathy Status: Acute (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
--- NOTE | 2016-11-12 22:40 | CP.PCM.PN ---
Subjective - Date & Time of Evaluation Date of Evaluation: 11/12/16 Time of Evaluation: 09:20 - Subjective Subjective: Patient seen and evaluated Hyperkalemia and EKG changes EKG now better after correcting K Transfer to [facility] for further observation Physical Examination - Head Exam Head Exam: ATRAUMATIC - Eye Exam Eye Exam: EOMI, PERRL - ENT Exam ENT Exam: Mucous Membranes Moist - Neck Exam Neck Exam: Full ROM, Normal Inspection - Respiratory Exam Respiratory Exam: Clear to Ausculation Bilateral, NORMAL BREATHING PATTERN - Cardiovascular Exam Cardiovascular Exam: REGULAR RHYTHM, +S1, +S2 - GI/Abdominal Exam GI & Abdominal Exam: Soft, Normal Bowel Sounds - Extremities Exam Extremities Exam: Full ROM - Neurological Exam Neurological Exam: Alert - Skin Skin Exam: Warm Objective - Vital Signs/Intake and Output Vital Signs (last 24 hours): Temp Pulse Resp BP Pulse Ox 98.4 F 96 H 18 142/80 95 11/12/16 15:29 11/12/16 15:29 11/12/16 15:29 11/12/16 15:29 11/12/16 15:29 - Medications Medications: Current Medications Epoetin Herve (Procrit) 10,000 unit IV TTS JESSI Heparin Sodium (Porcine) (Heparin) 3,700 units IVP TTS JESSI Last Admin: 11/11/16 14:51 Dose: 3,700 units Hydralazine HCl (Apresoline) 10 mg IVP Q6H PRN PRN Reason: HIgh BP Multivitamins/Vitamin C (Multi-Delyn Liquid) 5 ml GT 1200 JESSI Last Admin: 11/11/16 13:44 Dose: Not Given Pantoprazole Sodium (Protonix Inj) 40 mg IVP Q12H JESSI Last Admin: 11/12/16 22:01 Dose: 40 mg Paricalcitol (Zemplar) 1 mcg IV TTS JESSI Last Admin: 11/11/16 14:49 Dose: 1 mcg - Labs Labs: 11/12/16 07:13 11/12/16 07:13 PT 11.7 SECONDS (9.7-12.2) 11/04/16 07:45 INR 1.0 11/04/16 07:45 APTT 37 SECONDS (21-34) H D 11/04/16 13:51 Assessment and Plan - Assessment and Plan (Free Text) Assessment: 1. Cardiomyopathy with Low EF Medical management due to poor general condition. Due to dementia not a candidate for cath or AICD/LifeVest 2. CKD on HD 3. Dementia 4. Hyperkaemia improved
--- NOTE | 2016-11-13 09:37 | CP.PCM.PN ---
Subjective - Date & Time of Evaluation Date of Evaluation: 11/13/16 Time of Evaluation: 10:20 - Subjective Subjective: clinically same Objective - Vital Signs/Intake and Output Vital Signs (last 24 hours): Temp Pulse Resp BP Pulse Ox 98.7 F 98 H 20 155/86 H 97 11/13/16 08:26 11/13/16 08:26 11/13/16 08:26 11/13/16 08:26 11/13/16 08:26 Intake and Output: 11/13/16 11/13/16 06:59 18:59 Intake Total 1060 Output Total 1 Balance 1059 - Medications Medications: Current Medications Epoetin Herve (Procrit) 10,000 unit IV TTS JESSI Heparin Sodium (Porcine) (Heparin) 3,700 units IVP TTS JESSI Last Admin: 11/11/16 14:51 Dose: 3,700 units Hydralazine HCl (Apresoline) 10 mg IVP Q6H PRN PRN Reason: HIgh BP Multivitamins/Vitamin C (Multi-Delyn Liquid) 5 ml GT 1200 JESSI Last Admin: 11/11/16 13:44 Dose: Not Given Pantoprazole Sodium (Protonix Inj) 40 mg IVP Q12H JESSI Last Admin: 11/12/16 22:01 Dose: 40 mg Paricalcitol (Zemplar) 1 mcg IV TTS JESSI Last Admin: 11/11/16 14:49 Dose: 1 mcg - Labs Labs: 11/12/16 07:13 11/12/16 07:13 PT 11.7 SECONDS (9.7-12.2) 11/04/16 07:45 INR 1.0 11/04/16 07:45 APTT 37 SECONDS (21-34) H D 11/04/16 13:51 - Constitutional Appears: Well - Head Exam Head Exam: ATRAUMATIC, NORMAL INSPECTION, NORMOCEPHALIC - Eye Exam Eye Exam: EOMI, Normal appearance, PERRL Pupil Exam: NORMAL ACCOMODATION, PERRL - ENT Exam ENT Exam: Mucous Membranes Moist, Normal Exam - Neck Exam Neck Exam: Full ROM, Normal Inspection. absent: Lymphadenopathy - Respiratory Exam Respiratory Exam: Decreased Breath Sounds - Cardiovascular Exam Cardiovascular Exam: REGULAR RHYTHM, +S1, +S2 - GI/Abdominal Exam GI & Abdominal Exam: Soft, Diminished Bowel Sounds - Rectal Exam Rectal Exam: Deferred Assessment and Plan (1) Cardiac dysrhythmia Status: Acute (2) ESRD (end stage renal disease) on dialysis Status: Acute (3) Pulmonary edema Status: Acute (4) MARCO (acute kidney injury) Status: Acute (5) Acute respiratory failure requiring reintubation Status: Acute (6) Arthritis Status: Acute (7) CHF (congestive heart failure) Status: Acute (8) Dehydration Status: Acute (9) Dehydration Status: Acute (10) Diverticulosis Status: Acute (11) Elevated CEA Status: Acute (12) Hypertension Status: Acute (13) Inguinal lymphadenopathy Status: Acute (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
--- NOTE | 2016-11-13 10:16 | CP.PCM.PN ---
Subjective - Date & Time of Evaluation Date of Evaluation: 11/13/16 Time of Evaluation: 10:15 - Subjective Subjective: pt is seen and examined, follow up consult is dictated #[id number] seen in hd f/u with IR for change of perma cath d/w dr. su this am Objective - Vital Signs/Intake and Output Vital Signs (last 24 hours): Temp Pulse Resp BP Pulse Ox 98.7 F 98 H 20 155/86 H 97 11/13/16 08:26 11/13/16 08:26 11/13/16 08:26 11/13/16 08:26 11/13/16 08:26 Intake and Output: 11/13/16 11/13/16 06:59 18:59 Intake Total 1060 Output Total 1 Balance 1059 - Medications Medications: Current Medications Epoetin Herve (Procrit) 10,000 unit IV TTS JESSI Heparin Sodium (Porcine) (Heparin) 3,700 units IVP TTS JESSI Last Admin: 11/11/16 14:51 Dose: 3,700 units Hydralazine HCl (Apresoline) 10 mg IVP Q6H PRN PRN Reason: HIgh BP Multivitamins/Vitamin C (Multi-Delyn Liquid) 5 ml GT 1200 JESSI Last Admin: 11/11/16 13:44 Dose: Not Given Pantoprazole Sodium (Protonix Inj) 40 mg IVP Q12H JESSI Last Admin: 11/12/16 22:01 Dose: 40 mg Paricalcitol (Zemplar) 1 mcg IV TTS JESSI Last Admin: 11/11/16 14:49 Dose: 1 mcg - Labs Labs: 11/12/16 07:13 11/12/16 07:13 PT 11.7 SECONDS (9.7-12.2) 11/04/16 07:45 INR 1.0 11/04/16 07:45 APTT 37 SECONDS (21-34) H D 11/04/16 13:51
--- NOTE | 2016-11-13 10:26 | CP.PCM.PN ---
Subjective - Date & Time of Evaluation Date of Evaluation: 11/13/16 Time of Evaluation: 10:25 - Subjective Subjective: Pt seen and examined at bedside this AM; denies any acute complaints or overnight events. Denies any fevers/chills, WALLACE, CP, SOB, abdominal pain, N/V/D, dysuria/freq/urg, or lower extremity pain/swelling. Objective - Vital Signs/Intake and Output Vital Signs (last 24 hours): Temp Pulse Resp BP Pulse Ox 98.9 F 95 H 17 150/81 97 11/13/16 09:00 11/13/16 09:00 11/13/16 09:00 11/13/16 10:00 11/13/16 09:00 Intake and Output: 11/13/16 11/13/16 06:59 18:59 Intake Total 1060 Output Total 1 Balance 1059 - Medications Medications: Current Medications Epoetin Herve (Procrit) 10,000 unit IV TTS JESSI Heparin Sodium (Porcine) (Heparin) 3,700 units IVP TTS [facility] Last Admin: 11/11/16 14:51 Dose: 3,700 units Hydralazine HCl (Apresoline) 10 mg IVP Q6H PRN PRN Reason: HIgh BP Multivitamins/Vitamin C (Multi-Delyn Liquid) 5 ml GT 1200 JESSI Last Admin: 11/11/16 13:44 Dose: Not Given Pantoprazole Sodium (Protonix Inj) 40 mg IVP Q12H JESSI Last Admin: 11/12/16 22:01 Dose: 40 mg Paricalcitol (Zemplar) 1 mcg IV TTS JESSI Last Admin: 11/11/16 14:49 Dose: 1 mcg - Labs Labs: 11/12/16 07:13 11/12/16 07:13 PT 11.7 SECONDS (9.7-12.2) 11/04/16 07:45 INR 1.0 11/04/16 07:45 APTT 37 SECONDS (21-34) H D 11/04/16 13:51 - Constitutional Appears: Non-toxic - Head Exam Head Exam: ATRAUMATIC - Eye Exam Eye Exam: EOMI - ENT Exam ENT Exam: Mucous Membranes Moist - Neck Exam Neck Exam: Full ROM - Respiratory Exam Respiratory Exam: Clear to Ausculation Bilateral - Cardiovascular Exam Cardiovascular Exam: REGULAR RHYTHM - GI/Abdominal Exam GI & Abdominal Exam: Soft - Extremities Exam Extremities Exam: absent: Calf Tenderness - Back Exam Back Exam: absent: CVA tenderness (L), CVA tenderness (R) - Neurological Exam Neurological Exam: Awake - Psychiatric Exam Psychiatric exam: Normal Affect - Skin Skin Exam: Warm Assessment and Plan - Assessment and Plan (Free Text) Assessment: ESRD (end stage renal disease) on dialysis; chronic and stable -patient had new permacath inserted which is functioning well; well receive hemodialsysis as per nephrology -c/w epoitin for anemia 2/2 to CKD; stable and chronic -Continue epogen -continue IV iron -Nephrocaps 1 tab daily -Zemplar 1mcg TTS with dialysis Cardiomyopathy with low EF Cardiology consult, Dr. Salmon, f/u recs which state: Medical management due to poor general condition. Due to dementia not a candidate for cath or AICD/ LifeVest Hyperkalemia; resolved -will continue to monitor TTP (thrombotic thrombocytopenic purpura); resolved resolved Vaginal Bleed; resolved 10/29: Endometrial us shows thick endometrium 10/28: ObGyn Consult on 10/27 2/2 vaginal bleeding, f/u recs - Please f/u transvaginal/pelvic ultrasound for evaluation of endometrial stripe, and re- consult. * Medication review noted for patient having received a bolus of heparin. - in the post menopausal state, it is not uncommon for a woman to experience post menopausal (vaginal) bleeding with the administration of heparin. Prophylaxis PT / OT Swallow eval/treat SCDs As per previous conversation with family: The possibility of home discharge was discussed with the daughter at bedside, however she did not feel comfortable having her mother home now that she is not eating well and is on PEG feeding. It seems the family has refused rehab due to funding issues. Home PT may be a better option when ready. Case discussed with Dr. Ureña. All orders entered on behalf of Dr. Ureña
[2016-11-13] MEDS: Paricalcitol 2 mcg/ml Inj IV SCH ×2 (11:13→11:52)
[2016-11-13] MEDS: Epoetin Alfa 10,000 unit/ml Dialysis IV SCH ×2 (11:50→11:51)
[2016-11-13] MEDS: Multiple Vitamins Oral Solution GT SCH ×2 (12:01→13:32)
--- NOTE | 2016-11-13 15:01 | CON ---
FOLLOWUP RENAL CONSULTATION DATE: LOCATION: The patient is located in room #656, bed A. REQUESTED BY: Kavon Ureña MD REASON FOR FOLLOWUP: End-stage renal disease, continuation of hemodialysis. HISTORY OF PRESENT ILLNESS: Ms. Denise Garcia is an 80-year-old elderly female, with a history of longstanding hypertension, cardiomyopathy, CHF, rheumatoid arthritis, anemia, thrombocytopenia with worsening renal function requiring initiate hemodialysis, on hemodialysis for the last 3 months. The patient has poorly function Perma-Cath, status post change of the Perma-Cath, but still the patient has a poor blood flow about 225 mL per minute. The patient is not in acute distress. Denies any shortness of breath, dizziness, chest pain. PHYSICAL EXAMINATION: VITAL SIGNS: As follows; blood pressure 150/81, pulse 95, respirations 17, temperature 98.9, saturation 97%. Height is 5 feet 2 inches and weight 120 pounds. GENERAL: Ms. Denise Garcia is an 80-year-old elderly female, moderately built and moderately nourished, not in acute distress. HEENT: Pupils are normal, reactive to light. Conjunctivae pink. Legally blind. Tongue is moist. Trachea is midline. NECK: No thyroid enlargement. LUNGS: Symmetric on both sides. Bilateral breath sounds present with no crackles. CARDIOVASCULAR: [place] at the sixth intercostal space, midclavicular line, S1 and S2 audible. No murmur, no gallop. ABDOMEN: Normal in appearance. Soft, tympanic. No guarding. No rigidity. No hepatosplenomegaly, status post PEG tube placement. CENTRAL NERVOUS SYSTEM: The patient is arousable, following simple commands. EXTREMITIES: No cyanosis. No clubbing. No edema. MOTOR SYSTEM: The patient is bedridden for the last 3 months. CURRENT MEDICATIONS: Include as follows; hydralazine 10 mg IV q. 6 hours p.r.n., heparin 3700 units TTS in Perma-Cath, multivitamin liquid 5 mL daily, Epogen 10,000 units 3 times a week, Protonix 40 mg q. 12 hours, and Zemplar 1 mcg 3 times a week. LABORATORY DATA: As of 11/12/2016; WBC 10, hemoglobin 10.7, hematocrit 34.3, platelets 155. Sodium 138, potassium 5.2, chloride 98, CO2 of 29, BUN 46, creatinine 3.1, glucose 97, calcium 9.3, total bili 0.6, AST 54, ALT 44, alkaline phosphate 97, total protein 6.0, albumin is 3.1. ASSESSMENT: In summary, Ms. Denise Garcia is an 80-year-old elderly female with hypertension, rheumatoid arthritis, cardiomyopathy, congestive heart failure, thrombocytopenia, anemia, thrombotic thrombocytopenic purpura, renal failure on hemodialysis. 1. 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 The patient is on hemodialysis for the last 3 months, continue hemodialysis Thursday, and Thursday. 2. Non-function Perma-Cath, status post change of the catheter, but still poorly functioning. Discussed with Dr. Connelly, Interventional Radiologist this morning and agreed to replace the catheter and change it to right side. 3. Cardiomyopathy, stable. 4. 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 We will follow with you. Thank you for allowing me to participate in your patient's care. Horacio Graham MD
--- NOTE | 2016-11-14 08:17 | PN ---
DATE: LOCATION: Room 656, bed A. SUBJECTIVE: This is an 80 years old female, seen and examined on rounds, without significant clinical changes or reported active bleeding. She is tolerating PEG feeding well. The entire chart is reviewed including, but not limited to the most recent lab and radiology study results, current and previous medication lists, and current and previous medical events. Case discussed with the staff at length and the patient still have low hemoglobin with increased BUN and creatinine, on hemodialysis with low albumin and mildly elevated AST and alkaline phosphatase. PHYSICAL EXAMINATION GENERAL: An 80 years old female, Arabic spoken. VITAL SIGNS: Afebrile with pulse of 92, respiratory rate of 20 to 22, and blood pressure of 140/76. HEENT: Showed pale, dry oral mucous membrane. Nonicteric sclera. LUNGS: Few scattered crepitation. Decreased air entry at bases. HEART: Positive S1 and S2. Increase rate. ABDOMEN: Soft. PEG tube is in place with well formed stoma. No mass or organomegaly. No rebound tenderness or guarding. EXTREMITIES: Without edema, clubbing or cyanosis. NEUROLOGIC: No neurological deficits. IMPRESSION: 1. Malnutrition. 2. Failure to thrive. 3. Status post percutaneous endoscopic gastrostomy insertion. 4. Renal failure, on hemodialysis. 5. Hypoalbuminemia with electrolyte imbalance. 6. Known history of hypertension with cardiomyopathy. 7. Known history of thrombotic thrombocytopenic purpura. SUGGESTIONS: 1. Subsequent increase of feeding as tolerated. 2. Follow up liver enzymes and hepatitis profile. Yasmine Oneill MD cc: Yasmine Oneill MD
--- NOTE | 2016-11-14 09:46 | CP.PCM.PN ---
Subjective - Date & Time of Evaluation Date of Evaluation: 11/14/16 Time of Evaluation: 09:46 - Subjective Subjective: Patient seen and examined at bedside; is nervous for her new placement of permacath since they have tried many times already and failed; support offered; patient has no other complaints. Objective - Vital Signs/Intake and Output Vital Signs (last 24 hours): Temp Pulse Resp BP Pulse Ox 100 F H 98 H 18 145/80 97 11/14/16 07:00 11/14/16 07:00 11/14/16 07:00 11/14/16 07:00 11/14/16 07:00 Intake and Output: 11/14/16 11/14/16 06:59 18:59 Intake Total 1110 Output Total 1 Balance 1109 - Medications Medications: Current Medications Epoetin Herve (Procrit) 10,000 unit IV TTS [facility] Last Admin: 11/13/16 11:51 Dose: 10,000 unit Heparin Sodium (Porcine) (Heparin) 3,700 units IVP TTS [facility] Last Admin: 11/13/16 11:49 Dose: 3,700 units Hydralazine HCl (Apresoline) 10 mg IVP Q6H PRN PRN Reason: HIgh BP Multivitamins/Vitamin C (Multi-Delyn Liquid) 5 ml GT 1200 [facility] Last Admin: 11/13/16 13:32 Dose: 5 ml Pantoprazole Sodium (Protonix Inj) 40 mg IVP Q12H [facility] Last Admin: 11/13/16 21:54 Dose: 40 mg Paricalcitol (Zemplar) 1 mcg IV TTS [facility] Last Admin: 11/13/16 11:52 Dose: 1 mcg - Labs Labs: 11/12/16 07:13 11/12/16 07:13 PT 11.7 SECONDS (9.7-12.2) 11/04/16 07:45 INR 1.0 11/04/16 07:45 APTT 37 SECONDS (21-34) H D 11/04/16 13:51 - Constitutional Appears: Non-toxic - Head Exam Head Exam: ATRAUMATIC - Eye Exam Eye Exam: EOMI - ENT Exam ENT Exam: Mucous Membranes Moist - Neck Exam Neck Exam: Full ROM - Respiratory Exam Respiratory Exam: Clear to Ausculation Bilateral - Cardiovascular Exam Cardiovascular Exam: REGULAR RHYTHM - GI/Abdominal Exam GI & Abdominal Exam: Soft - Extremities Exam Extremities Exam: absent: Calf Tenderness - Back Exam Back Exam: absent: CVA tenderness (L), CVA tenderness (R) - Neurological Exam Neurological Exam: Alert, Awake - Psychiatric Exam Psychiatric exam: Normal Affect - Skin Skin Exam: Warm Assessment and Plan - Assessment and Plan (Free Text) Assessment: ESRD (end stage renal disease) on dialysis; chronic with non functional permacath -patient will have new permacath placed today 11/14 -c/w epoitin for anemia 2/2 to CKD; stable and chronic -Continue epogen -continue IV iron -Nephrocaps 1 tab daily -Zemplar 1mcg TTS with dialysis Cardiomyopathy with low EF Cardiology consult, Dr. Salmon, f/u recs which state: Medical management due to poor general condition. Due to dementia not a candidate for cath or AICD/ LifeVest Hyperkalemia; resolved -will continue to monitor TTP (thrombotic thrombocytopenic purpura); resolved resolved Vaginal Bleed; resolved 10/29: Endometrial us shows thick endometrium 10/28: ObGyn Consult on 10/27 2/2 vaginal bleeding, f/u recs - Please f/u transvaginal/pelvic ultrasound for evaluation of endometrial stripe, and re- consult. * Medication review noted for patient having received a bolus of heparin. - in the post menopausal state, it is not uncommon for a woman to experience post menopausal (vaginal) bleeding with the administration of heparin. Prophylaxis PT / OT Swallow eval/treat SCDs As per previous conversation with family: The possibility of home discharge was discussed with the daughter at bedside, however she did not feel comfortable having her mother home now that she is not eating well and is on PEG feeding. It seems the family has refused rehab due to funding issues. Home PT may be a better option when ready. Case discussed with Dr. Ureña. All orders entered on behalf of Dr. Ureña
[2016-11-14] MEDS: Multiple Vitamins Oral Solution GT SCH (11:10)
[2016-11-14] MEDS ORDERED: Lidocaine 2% Inj (20ml) ONE (13:58)
--- NOTE | 2016-11-14 14:21 | PCM.SURG1 ---
Surgeon's Initial Post Op Note - Surgeon's Notes Surgeon: Asher Connelly MD Occupational Health Physiotherapist: NONE Type of Anesthesia: Local Pre-Operative Diagnosis: ESRD, non functional left IJ HD catheter. Operative Findings: Patent right IJV Post-Operative Diagnosis: ESRD, non functional left IJ HD catheter. Operation Performed: Right IJ tunneled HD catheter placement. Removal of left tunnuled HD catheter. Specimen/Specimens Removed: none Estimated Blood Loss: EBL {In ML}: 4 Blood Products Given: N/A Drains Used: No Drains Post-Op Condition: Fair Date of Surgery/Procedure: 11/14/16 Time of Surgery/Procedure: 14:15
--- NOTE | 2016-11-14 16:37 | PN ---
LOCATION: [facility], bed A. SUBJECTIVE: This is an 81-year-old female seen and examined on rounds post PEG insertion, tolerating PEG feeding well without any reported active bleeding residual or resistant. The entire chart was reviewed including, but not limited to the most recent lab and radiology study results, current and previous medication list, current and previous medical events, and the patient is still on hemodialysis due to her chronic renal failure. PHYSICAL EXAMINATION: GENERAL: An 81-year-old female with low-grade temperature of 100, pulse of 96, respiratory rate 20 to 22, blood pressure 140/82. HEENT: Show pale dry oral mucoid membranes, nonicteric sclerae. LUNGS: Few scattered mild crepitations, decreased air entry at bases. HEART: Positive S1 and S2 with increased rate. ABDOMEN: Soft. PEG tube is in place with well-formed stoma. EXTREMITIES: Without significant edema, clubbing, or cyanosis. NEUROLOGIC: No neurological deficits, sensory or motor. IMPRESSION: 1. Failure to thrive. 2. Hypoalbuminemia. 3. Status post PEG insertion. 4. Known history of renal failure, on hemodialysis. 5. Known history of hypertension with cardiomyopathy. 6. Known history of thrombotic thrombocytopenic purpura. SUGGESTION: 1. Continue current management. 2. Subsequent increase of rate of PEG feeding. 3. Further recommendation to follow. Yasmine Oneill MD cc: Yasmine Oneill MD
--- NOTE | 2016-11-14 18:57 | CP.PCM.PN ---
Subjective - Date & Time of Evaluation Date of Evaluation: 11/14/16 Time of Evaluation: 09:20 - Subjective Subjective: clinically same Objective - Vital Signs/Intake and Output Vital Signs (last 24 hours): Temp Pulse Resp BP Pulse Ox 98.0 F 92 H 20 146/83 98 11/14/16 16:56 11/14/16 16:56 11/14/16 16:56 11/14/16 16:56 11/14/16 16:56 Intake and Output: 11/14/16 11/14/16 06:59 18:59 Intake Total 1110 Output Total 1 Balance 1109 - Medications Medications: Current Medications Epoetin Herve (Procrit) 10,000 unit IV TTS [facility] Last Admin: 11/13/16 11:51 Dose: 10,000 unit Hydralazine HCl (Apresoline) 10 mg IVP Q6H PRN PRN Reason: HIgh BP Multivitamins/Vitamin C (Multi-Delyn Liquid) 5 ml GT 1200 JESSI Last Admin: 11/14/16 11:10 Dose: 5 ml Pantoprazole Sodium (Protonix Inj) 40 mg IVP Q12H [facility] Last Admin: 11/14/16 11:10 Dose: 40 mg Paricalcitol (Zemplar) 1 mcg IV TTS [facility] Last Admin: 11/13/16 11:52 Dose: 1 mcg - Labs Labs: 11/12/16 07:13 11/12/16 07:13 PT 11.7 SECONDS (9.7-12.2) 11/04/16 07:45 INR 1.0 11/04/16 07:45 APTT 37 SECONDS (21-34) H D 11/04/16 13:51 - Constitutional Appears: Well - Head Exam Head Exam: ATRAUMATIC, NORMAL INSPECTION, NORMOCEPHALIC - Eye Exam Eye Exam: EOMI, Normal appearance, PERRL Pupil Exam: NORMAL ACCOMODATION, PERRL - ENT Exam ENT Exam: Mucous Membranes Moist, Normal Exam - Neck Exam Neck Exam: Full ROM, Normal Inspection. absent: Lymphadenopathy - Respiratory Exam Respiratory Exam: Decreased Breath Sounds - Cardiovascular Exam Cardiovascular Exam: REGULAR RHYTHM, +S1, +S2 - GI/Abdominal Exam GI & Abdominal Exam: Soft, Diminished Bowel Sounds - Rectal Exam Rectal Exam: Deferred Assessment and Plan (1) Cardiac dysrhythmia Status: Acute (2) ESRD (end stage renal disease) on dialysis Status: Acute (3) Pulmonary edema Status: Acute (4) MARCO (acute kidney injury) Status: Acute (5) Acute respiratory failure requiring reintubation Status: Acute (6) Arthritis Status: Acute (7) CHF (congestive heart failure) Status: Acute (8) Dehydration Status: Acute (9) Dehydration Status: Acute (10) Diverticulosis Status: Acute (11) Elevated CEA Status: Acute (12) Hypertension Status: Acute (13) Inguinal lymphadenopathy Status: Acute (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
[2016-11-15] MEDS: Epoetin Alfa 10,000 unit/ml Dialysis IV SCH (10:43)
[2016-11-15] MEDS: Paricalcitol 2 mcg/ml Inj IV SCH (10:44)
[2016-11-15] MEDS: Multiple Vitamins Oral Solution GT SCH (13:07)
--- NOTE | 2016-11-15 15:24 | CP.PCM.PN ---
Subjective - Date & Time of Evaluation Date of Evaluation: 11/15/16 Time of Evaluation: 09:40 - Subjective Subjective: clinically same Objective - Vital Signs/Intake and Output Vital Signs (last 24 hours): Temp Pulse Resp BP Pulse Ox 98.3 F 98 H 18 91/63 L 95 11/15/16 12:05 11/15/16 12:05 11/15/16 12:05 11/15/16 12:05 11/15/16 12:05 Intake and Output: 11/15/16 11/15/16 06:59 18:59 Intake Total 1060 280 Balance 1060 280 - Medications Medications: Current Medications Epoetin Herve (Procrit) 10,000 unit IV TTS [facility] Last Admin: 11/15/16 10:43 Dose: 10,000 unit Heparin Sodium (Porcine) (Heparin) 5,000 units IVP TTS [facility] Last Admin: 11/15/16 11:44 Dose: 5,000 units Hydralazine HCl (Apresoline) 10 mg IVP Q6H PRN PRN Reason: HIgh BP Multivitamins/Vitamin C (Multi-Delyn Liquid) 5 ml GT 1200 [facility] Last Admin: 11/15/16 13:07 Dose: 5 ml Pantoprazole Sodium (Protonix Inj) 40 mg IVP Q12H [facility] Last Admin: 11/15/16 13:12 Dose: 40 mg Paricalcitol (Zemplar) 1 mcg IV TTS [facility] Last Admin: 11/15/16 10:44 Dose: 1 mcg - Labs Labs: 11/12/16 07:13 11/12/16 07:13 PT 11.7 SECONDS (9.7-12.2) 11/04/16 07:45 INR 1.0 11/04/16 07:45 APTT 37 SECONDS (21-34) H D 11/04/16 13:51 - Constitutional Appears: Well - Head Exam Head Exam: ATRAUMATIC, NORMAL INSPECTION, NORMOCEPHALIC - Eye Exam Eye Exam: EOMI, Normal appearance, PERRL Pupil Exam: NORMAL ACCOMODATION, PERRL - ENT Exam ENT Exam: Mucous Membranes Moist, Normal Exam - Neck Exam Neck Exam: Full ROM, Normal Inspection. absent: Lymphadenopathy - Respiratory Exam Respiratory Exam: Decreased Breath Sounds - Cardiovascular Exam Cardiovascular Exam: REGULAR RHYTHM, +S1, +S2 - GI/Abdominal Exam GI & Abdominal Exam: Soft, Diminished Bowel Sounds - Rectal Exam Rectal Exam: Deferred Assessment and Plan (1) Cardiac dysrhythmia Status: Acute (2) ESRD (end stage renal disease) on dialysis Status: Acute (3) Pulmonary edema Status: Acute (4) MARCO (acute kidney injury) Status: Acute (5) Acute respiratory failure requiring reintubation Status: Acute (6) Arthritis Status: Acute (7) CHF (congestive heart failure) Status: Acute (8) Dehydration Status: Acute (9) Dehydration Status: Acute (10) Diverticulosis Status: Acute (11) Elevated CEA Status: Acute (12) Hypertension Status: Acute (13) Inguinal lymphadenopathy Status: Acute (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
--- NOTE | 2016-11-15 16:20 | CP.PCM.PN ---
Subjective - Date & Time of Evaluation Date of Evaluation: 11/15/16 Time of Evaluation: 16:20 - Subjective Subjective: pt is seen and examined, follow up consult is dictated #[id number] s/p hd today Objective - Vital Signs/Intake and Output Vital Signs (last 24 hours): Temp Pulse Resp BP Pulse Ox 98.3 F 98 H 18 91/63 L 95 11/15/16 12:05 11/15/16 12:05 11/15/16 12:05 11/15/16 12:05 11/15/16 12:05 Intake and Output: 11/15/16 11/15/16 06:59 18:59 Intake Total 1060 280 Balance 1060 280 - Medications Medications: Current Medications Epoetin Herve (Procrit) 10,000 unit IV TTS [facility] Last Admin: 11/15/16 10:43 Dose: 10,000 unit Heparin Sodium (Porcine) (Heparin) 5,000 units IVP TTS [facility] Last Admin: 11/15/16 11:44 Dose: 5,000 units Hydralazine HCl (Apresoline) 10 mg IVP Q6H PRN PRN Reason: HIgh BP Multivitamins/Vitamin C (Multi-Delyn Liquid) 5 ml GT 1200 [facility] Last Admin: 11/15/16 13:07 Dose: 5 ml Pantoprazole Sodium (Protonix Inj) 40 mg IVP Q12H [facility] Last Admin: 11/15/16 13:12 Dose: 40 mg Paricalcitol (Zemplar) 1 mcg IV TTS [facility] Last Admin: 11/15/16 10:44 Dose: 1 mcg - Labs Labs: 11/12/16 07:13 11/12/16 07:13 PT 11.7 SECONDS (9.7-12.2) 11/04/16 07:45 INR 1.0 11/04/16 07:45 APTT 37 SECONDS (21-34) H D 11/04/16 13:51
--- NOTE | 2016-11-16 06:45 | CARD ---
APPROVED REPORT EKG Measurement Heart [id number] <Conclusion> Sinus bradycardia with frequent premature ventricular complexes in a pattern of bigeminy Left bundle branch block Abnormal ECG
--- NOTE | 2016-11-16 11:19 | CP.PCM.PN ---
Subjective - Date & Time of Evaluation Date of Evaluation: 11/16/16 Time of Evaluation: 09:20 - Subjective Subjective: clinically same Objective - Vital Signs/Intake and Output Vital Signs (last 24 hours): Temp Pulse Resp BP Pulse Ox 99.2 F 72 18 120/72 95 11/16/16 07:00 11/16/16 07:00 11/16/16 07:00 11/16/16 07:00 11/16/16 07:00 Intake and Output: 11/16/16 11/16/16 06:59 18:59 Intake Total 530 Balance 530 - Medications Medications: Current Medications Epoetin Herve (Procrit) 10,000 unit IV TTS [facility] Last Admin: 11/15/16 10:43 Dose: 10,000 unit Heparin Sodium (Porcine) (Heparin) 5,000 units IVP TTS [facility] Last Admin: 11/15/16 11:44 Dose: 5,000 units Hydralazine HCl (Apresoline) 10 mg IVP Q6H PRN PRN Reason: HIgh BP Multivitamins/Vitamin C (Multi-Delyn Liquid) 5 ml GT 1200 [facility] Last Admin: 11/15/16 13:07 Dose: 5 ml Pantoprazole Sodium (Protonix Inj) 40 mg IVP Q12H [facility] Last Admin: 11/16/16 09:51 Dose: 40 mg Paricalcitol (Zemplar) 1 mcg IV TTS [facility] Last Admin: 11/15/16 10:44 Dose: 1 mcg - Labs Labs: 11/12/16 07:13 11/12/16 07:13 PT 11.7 SECONDS (9.7-12.2) 11/04/16 07:45 INR 1.0 11/04/16 07:45 APTT 37 SECONDS (21-34) H D 11/04/16 13:51 - Constitutional Appears: Well - Head Exam Head Exam: ATRAUMATIC, NORMAL INSPECTION, NORMOCEPHALIC - Eye Exam Eye Exam: EOMI, Normal appearance, PERRL Pupil Exam: NORMAL ACCOMODATION, PERRL - ENT Exam ENT Exam: Mucous Membranes Moist, Normal Exam - Neck Exam Neck Exam: Full ROM, Normal Inspection. absent: Lymphadenopathy - Respiratory Exam Respiratory Exam: Decreased Breath Sounds - Cardiovascular Exam Cardiovascular Exam: REGULAR RHYTHM, +S1, +S2 - GI/Abdominal Exam GI & Abdominal Exam: Soft, Diminished Bowel Sounds - Rectal Exam Rectal Exam: Deferred Assessment and Plan (1) Cardiac dysrhythmia Status: Acute (2) ESRD (end stage renal disease) on dialysis Status: Acute (3) Pulmonary edema Status: Acute (4) MARCO (acute kidney injury) Status: Acute (5) Acute respiratory failure requiring reintubation Status: Acute (6) Arthritis Status: Acute (7) CHF (congestive heart failure) Status: Acute (8) Dehydration Status: Acute (9) Dehydration Status: Acute (10) Diverticulosis Status: Acute (11) Elevated CEA Status: Acute (12) Hypertension Status: Acute (13) Inguinal lymphadenopathy Status: Acute (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
[2016-11-16] MEDS: Multiple Vitamins Oral Solution GT SCH (13:10)
--- NOTE | 2016-11-16 15:22 | PN ---
FOLLOWUP RENAL CONSULTATION DATE: LOCATION: The patient is located in room 661, bed A. REQUESTED BY: Kavon Ureña MD REASON FOR FOLLOWUP: End-stage renal disease, continuation of hemodialysis. SUBJECTIVE: Mrs. Denise Garcia is an 80-year-old elderly female with a past medical history significant for longstanding hypertension, rheumatoid arthritis, cardiomyopathy, CHF, anemia, thrombocytopenia, renal failure, on hemodialysis for the last three months. The patient is bedridden since July. The patient is not in any distress. The patient underwent hemodialysis today without any complications. The patient had ultrafiltration of about 1.5 L, not in distress. PHYSICAL EXAMINATION: VITAL SIGNS: As follows, blood pressure 191/63, pulse 98, respirations 18, temperature 98.3. Saturation 95% on 2 L nasal cannula. Height 5 feet 2 inches and weight is 120 pounds. GENERAL: Mrs. Denise Garcia is an 80-year-old elderly female, moderately built, moderately nourished, not in distress. HEENT: Pupils are normal and reacting to light and legally blind. Conjunctivae pink. Sclerae anicteric. Tongue is moist. NECK: Trachea is midline. LUNGS: Symmetric on both sides. Bilateral breath sounds are present. Clear on auscultation. CARDIOVASCULAR SYSTEM: [place] at the sixth intercostal space, midclavicular line. S1 and S2 audible. No murmur. No gallop. ABDOMEN: Normal in appearance. Soft, tympanic. No guarding. No rigidity. The patient has a PEG tube. No hepatosplenomegaly. CENTRAL NERVOUS SYSTEM: The patient is arousable, following simple commands. Sensory system is grossly within normal limits. Motor system, moving all extremities. The patient is bedridden now for the last three months. EXTREMITIES: No cyanosis, no clubbing, no edema. CURRENT MEDICATIONS: As follows, hydralazine 10 mg IV q.6 hours p.r.n., heparin 5000 units in the PermaCath 3 times a week, multivitamin liquid 5 mL *------*, Epogen 10,000 units three times a week, Protonix 40 mg q. 12 and Zemplar 1 mcg three times a week. LABORATORY DATA: Include as of 11/12/2016, WBC 10, hemoglobin 10.7, hematocrit 34.3, platelets 155. Sodium is 138, potassium is 5.2, chloride 98, CO2 of 29, BUN 46, creatinine 3.1, glucose 97, and calcium 9.3. Total protein 5.6, albumin is 3.1, *------* 6.8. AST 54, ALT 44, alkaline phosphatase is 97. ASSESSMENT: In summary, Mrs. Denise Garcia is an 80-year-old elderly female with hypertension; rheumatoid arthritis, cardiomyopathy, anemia, thrombocytopenia, renal failure, on hemodialysis. 1. End-stage renal disease. Continue hemodialysis three times a week, Thursday, , and Thursday status post change of PermaCath from the left to the right internal jugular for poorly functioning catheter. 2. Hypertension. Blood pressure is stable. 3. Cardiomyopathy. The patient is stable. Not on any medication. 4. Status post thrombotic thrombocytopenic purpura, platelets are normal. Status post plasmapheresis, Solu-Medrol and status post rituximab. Platelets are stable at this time. PLAN: The patient is stable from the renal standpoint for possible discharge. Follow up with PMD, Dr. Kavon Ureña and followup with the social service for the outpatient dialysis unit placement and discharge planning. Horacio Graham MD
--- NOTE | 2016-11-16 15:47 | PN ---
LOCATION: [facility], bed A. SUBJECTIVE: This is an 81-year-old female seen and examined on rounds and this morning without significant clinical changes or reported active bleeding and tolerating PEG feeding well. No reported resistant or residual from the PEG tube. The patient is status post left hemodialysis catheter insertion ____. PHYSICAL EXAMINATION: GENERAL: An 81 years old female awake, alert, and oriented. VITAL SIGNS: Afebrile with pulse of 48, respiratory rate 20-22, blood pressure of 146/72. HEENT: Show pale dry oral mucoid membranes, nonicteric sclerae. LUNGS: Few scattered crepitations; decreased air entry at bases. HEART: Positive S1 and S2 with low rate. ABDOMEN: Soft. Bowel sounds are present. PEG tube is in place without evidence of anterior abdominal wall cellulitis, was ____ stoma covered with clean dressing. EXTREMITIES: Without significant clubbing, cyanosis or edema. NEUROLOGIC: No reported new neurological deficits, sensory, or motor. IMPRESSION: 1. Mild hypoalbuminemia. 2. Failure to thrive. 3. Status post PEG insertion. 4. Chronic renal disease, on hemodialysis. 5. Electrolyte imbalance. Anemia secondary to above. 6. Known history of cardiomyopathy with hypertension. 7. Known history of thrombotic thrombocytopenic purpura. SUGGESTIONS: 1. Continue current management. 2. Correct any underlying electrolyte imbalance. 3. Increase the rate of feeding as tolerated. Yasmine Oneill MD
--- NOTE | 2016-11-16 15:49 | PN ---
DATE: LOCATION: [facility], [facility] A. SUBJECTIVE: This is an 80-year-old female seen early on rounds today, tolerating PEG feeding well without resistant bleeding or residual. The entire chart is reviewed including, but not limited to the most recent lab and radiology study results, current and previous medication list, and current and previous medical events. Case discussed at length with the staff and today's lab is still pending. PHYSICAL EXAMINATION: GENERAL: The patient is Algerian spoken. The patient is an 80-year-old female. VITAL SIGNS: Afebrile with heart rate 96, respiratory rate 20 to 22, and blood pressure 130/60. HEENT: Show pale dry oral mucous membrane. Nonicteric sclerae. LUNGS: Few scattered crepitations. Decreased air entry at bases. HEART: Positive S1 and S2. ABDOMEN: Soft. Bowel sounds are present. PEG tube is in place and intact with well-formed stoma. No mass or organomegaly. No rebound tenderness or guarding. EXTREMITIES: Without significant clubbing or cyanosis, but mild edematous changes. NEUROLOGIC: No reported new neurological deficit, sensory or motor. IMPRESSION: 1. Malnutrition. 2. Failure to thrive. 3. Hypoalbuminemia. 4. Status post percutaneous endoscopic gastrostomy insertion. 5. Anemia. 6. Peptic ulcer disease. 7. Known history of chronic renal failure, on hemodialysis. 8. Known history of cardiomyopathy with hypertension. 9. by history. SUGGESTIONS: 1. Continue current management. 2. Correct an underlying electrolyte imbalance. 3. Increase rate of feeding as tolerated. Yasmine Oneill MD cc: Yasmine Oneill MD
--- NOTE | 2016-11-17 08:40 | CP.PCM.PN ---
<Daniel Contreras - Last Filed: 11/17/16 16:42> Subjective - Date & Time of Evaluation Date of Evaluation: 11/17/16 Time of Evaluation: 08:38 - Subjective Subjective: PGY-[address] Ureña's service: Pt seen and examined at bedside. Nursing reports no acute events overnight, and PEG tube working without dysfunction/residual. Pt found sleeping comfortably in bed. Daughter at bedside. Spoke with granddaughter via telephone at bedside. She reports they will be ready to take patient home tomorrow, if logistics can be setup for transportation. Objective - Vital Signs/Intake and Output Vital Signs (last 24 hours): Temp Pulse Resp BP Pulse Ox 98.9 F 104 H 20 136/76 96 11/16/16 23:00 11/16/16 23:00 11/16/16 23:00 11/16/16 23:00 11/16/16 23:00 Intake and Output: 11/17/16 11/17/16 06:59 18:59 Intake Total 900 Balance 900 - Medications Medications: Current Medications Epoetin Herve (Procrit) 10,000 unit IV TTS [facility] Last Admin: 11/15/16 10:43 Dose: 10,000 unit Heparin Sodium (Porcine) (Heparin) 5,000 units IVP TTS [facility] Last Admin: 11/15/16 11:44 Dose: 5,000 units Hydralazine HCl (Apresoline) 10 mg IVP Q6H PRN PRN Reason: HIgh BP Multivitamins/Vitamin C (Multi-Delyn Liquid) 5 ml GT 1200 [facility] Last Admin: 11/16/16 13:10 Dose: 5 ml Pantoprazole Sodium (Protonix Inj) 40 mg IVP Q12H [facility] Last Admin: 11/16/16 23:21 Dose: 40 mg Paricalcitol (Zemplar) 1 mcg IV TTS [facility] Last Admin: 11/15/16 10:44 Dose: 1 mcg - Labs Labs: 11/12/16 07:13 11/12/16 07:13 PT 11.7 SECONDS (9.7-12.2) 11/04/16 07:45 INR 1.0 11/04/16 07:45 APTT 37 SECONDS (21-34) H D 11/04/16 13:51 - Constitutional Appears: Non-toxic, No Acute Distress - Head Exam Head Exam: ATRAUMATIC, NORMOCEPHALIC - Eye Exam Eye Exam: EOMI, Normal appearance - ENT Exam ENT Exam: Mucous Membranes Moist - Respiratory Exam Respiratory Exam: Clear to Ausculation Bilateral, NORMAL BREATHING PATTERN. absent: Rhonchi, Wheezes - Cardiovascular Exam Cardiovascular Exam: REGULAR RHYTHM, +S1, +S2 - GI/Abdominal Exam GI & Abdominal Exam: Soft, Normal Bowel Sounds. absent: Tenderness Additional comments: PEG tube in place - Extremities Exam Extremities Exam: Normal Inspection. absent: Pedal Edema, Tenderness - Neurological Exam Neurological Exam: Alert, Awake, Oriented x3 - Psychiatric Exam Psychiatric exam: Normal Affect, Normal Mood - Skin Skin Exam: Normal Color, Warm Assessment and Plan - Assessment and Plan (Free Text) Plan: Malnutrition PEG tube in place Dr. Goode, GI business intelligence consultant - increase rate of feeding as tolerated Dietary: recommending 40ml/hr of Nepro ESRD (end stage renal disease) on dialysis; chronic with non functional permacath -patient will have new permacath placed today 11/14 - stable for discharge per nephro -c/w epoitin for anemia 2/2 to CKD; stable and chronic -Continue epogen -continue IV iron -Nephrocaps 1 tab daily -Zemplar 1mcg TTS with dialysis Cardiomyopathy with low EF Cardiology consult, Dr. Salmon, f/u recs which state: Medical management due to poor general condition. Due to dementia not a candidate for cath or AICD/ LifeVest Hyperkalemia; resolved -will continue to monitor TTP (thrombotic thrombocytopenic purpura); resolved resolved Vaginal Bleed; resolved 10/29: Endometrial us shows thick endometrium 10/28: ObGyn Consult on 10/27 2 vaginal bleeding, f/u recs - Please f/u transvaginal/pelvic ultrasound for evaluation of endometrial stripe, and re- consult. * Medication review noted for patient having received a bolus of heparin. - in the post menopausal state, it is not uncommon for a woman to experience post menopausal (vaginal) bleeding with the administration of heparin. Prophylaxis PT / OT Swallow eval/treat SCDs Disposition: Pt for discharge home tomorrow, per Granddaughter Haydee. Case MGMT will coordinate transportation. Daniel Contreras PGY-[address] Ureña. All orders entered on behalf of Dr. Ureña <Sung Ureña S - Last Filed: 11/17/16 23:28> Objective - Vital Signs/Intake and Output Vital Signs (last 24 hours): Temp Pulse Resp BP Pulse Ox 100.1 F H 50 L 18 153/71 H 95 11/17/16 15:15 11/17/16 15:15 11/17/16 15:15 11/17/16 15:15 11/17/16 15:15 Intake and Output: 11/17/16 11/18/16 18:59 06:59 Intake Total 320 Balance 320 - Medications Medications: Current Medications Epoetin Herve (Procrit) 10,000 unit IV TTS [facility] Last Admin: 11/15/16 10:43 Dose: 10,000 unit Heparin Sodium (Porcine) (Heparin) 5,000 units IVP TTS [facility] Last Admin: 11/15/16 11:44 Dose: 5,000 units Heparin Sodium (Porcine) (Heparin) 1,000 units IVP TTS [facility] Stop: 11/29/16 10:01 Hydralazine HCl (Apresoline) 10 mg IVP Q6H PRN PRN Reason: HIgh BP Multivitamins/Vitamin C (Multi-Delyn Liquid) 5 ml GT 1200 [facility] Last Admin: 11/17/16 11:39 Dose: 5 ml Pantoprazole Sodium (Protonix Inj) 40 mg IVP Q12H [facility] Last Admin: 11/17/16 22:48 Dose: 40 mg Paricalcitol (Zemplar) 1 mcg IV TTS [facility] Last Admin: 11/15/16 10:44 Dose: 1 mcg - Labs Labs: 11/12/16 07:13 11/12/16 07:13 PT 11.7 SECONDS (9.7-12.2) 11/04/16 07:45 INR 1.0 11/04/16 07:45 APTT 37 SECONDS (21-34) H D 11/04/16 13:51 Assessment and Plan (1) Cardiac dysrhythmia Status: Acute (2) ESRD (end stage renal disease) on dialysis Status: Acute (3) Pulmonary edema Status: Acute (4) MARCO (acute kidney injury) Status: Acute (5) Acute respiratory failure requiring reintubation Status: Acute (6) Arthritis Status: Acute (7) CHF (congestive heart failure) Status: Acute (8) Dehydration Status: Acute (9) Dehydration Status: Acute (10) Diverticulosis Status: Acute (11) Elevated CEA Status: Acute (12) Hypertension Status: Acute (13) Inguinal lymphadenopathy Status: Acute (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 Smith on dialysis
[2016-11-17] MEDS: Multiple Vitamins Oral Solution GT SCH (11:39)
--- NOTE | 2016-11-17 14:32 | PN ---
LOCATION: #[facility], bed A. SUBJECTIVE: This is an 80-year-old female, post PEG insertion, seen and examined in rounds without significant clinical changes, tolerating PEG feeding well, no reported residual bleeding or resistance. The entire chart is reviewed, including but not limited to the most recent lab and radiology study results, current and the previous medication list, current and the previous medical events. Case discussed with the staff at length. No lab results for today reported. PHYSICAL EXAMINATION: GENERAL AND VITAL SIGNS: An 80-year-old female, afebrile with heart rate of 102, respiratory rate 18 to 20 and blood pressure 140/72. HEENT: Show pale, dry oral mucous membrane. Nonicteric sclerae. LUNGS: Few scattered crepitations, decreased air entry at bases. HEART: Positive S1 and S2. ABDOMEN: Soft with slight distention. PEG tube is in place, covered with clean dressing with well-formed stool. EXTREMITIES: Lower extremities, mild edematous changes. No clubbing or cyanosis. NEUROLOGIC: No reported new neurological deficits, sensory or motor. IMPRESSION: 1. Failure to thrive. 2. Malnutrition with hypoalbuminemia. 3. Status post percutaneous endoscopic gastrostomy insertion. 4. Peptic ulcer disease. 5. Anemia secondary to above. 6. Known history of chronic renal failure, on hemodialysis. 7. Known history of hypertension with cardiomyopathy. SUGGESTIONS: 1. Continue current management. 2. Subsequent increase of the rate of feeding as tolerated, prefer to be 6 hours on and 2 hours off. 3. Correct any underlying coagulopathy. Yasmine Oneill MD cc: Yasmine Oneill MD
--- NOTE | 2016-11-17 14:34 | CP.PCM.PN ---
Subjective - Date & Time of Evaluation Date of Evaluation: 11/17/16 Time of Evaluation: 14:34 - Subjective Subjective: pt is seen and examined, follow up consult is dictated #[id number] Objective - Vital Signs/Intake and Output Vital Signs (last 24 hours): Temp Pulse Resp BP Pulse Ox 99.3 F 109 H 18 150/77 95 11/17/16 07:25 11/17/16 07:25 11/17/16 07:25 11/17/16 07:25 11/17/16 07:25 Intake and Output: 11/17/16 11/17/16 06:59 18:59 Intake Total 900 Balance 900 - Medications Medications: Current Medications Epoetin Herve (Procrit) 10,000 unit IV TTS [facility] Last Admin: 11/15/16 10:43 Dose: 10,000 unit Heparin Sodium (Porcine) (Heparin) 5,000 units IVP TTS [facility] Last Admin: 11/15/16 11:44 Dose: 5,000 units Hydralazine HCl (Apresoline) 10 mg IVP Q6H PRN PRN Reason: HIgh BP Multivitamins/Vitamin C (Multi-Delyn Liquid) 5 ml GT 1200 [facility] Last Admin: 11/17/16 11:39 Dose: 5 ml Pantoprazole Sodium (Protonix Inj) 40 mg IVP Q12H [facility] Last Admin: 11/17/16 11:38 Dose: 40 mg Paricalcitol (Zemplar) 1 mcg IV TTS [facility] Last Admin: 11/15/16 10:44 Dose: 1 mcg - Labs Labs: 11/12/16 07:13 11/12/16 07:13 PT 11.7 SECONDS (9.7-12.2) 11/04/16 07:45 INR 1.0 11/04/16 07:45 APTT 37 SECONDS (21-34) H D 11/04/16 13:51
--- NOTE | 2016-11-17 15:45 | CP.PCM.PN ---
Subjective - Date & Time of Evaluation Date of Evaluation: 11/17/16 Time of Evaluation: 09:40 - Subjective Subjective: clinically same Objective - Vital Signs/Intake and Output Vital Signs (last 24 hours): Temp Pulse Resp BP Pulse Ox 99.3 F 109 H 18 150/77 95 11/17/16 07:25 11/17/16 07:25 11/17/16 07:25 11/17/16 07:25 11/17/16 07:25 Intake and Output: 11/17/16 11/17/16 06:59 18:59 Intake Total 900 320 Balance 900 320 - Medications Medications: Current Medications Epoetin Herve (Procrit) 10,000 unit IV TTS [facility] Last Admin: 11/15/16 10:43 Dose: 10,000 unit Heparin Sodium (Porcine) (Heparin) 5,000 units IVP TTS [facility] Last Admin: 11/15/16 11:44 Dose: 5,000 units Hydralazine HCl (Apresoline) 10 mg IVP Q6H PRN PRN Reason: HIgh BP Multivitamins/Vitamin C (Multi-Delyn Liquid) 5 ml GT 1200 [facility] Last Admin: 11/17/16 11:39 Dose: 5 ml Pantoprazole Sodium (Protonix Inj) 40 mg IVP Q12H [facility] Last Admin: 11/17/16 11:38 Dose: 40 mg Paricalcitol (Zemplar) 1 mcg IV TTS [facility] Last Admin: 11/15/16 10:44 Dose: 1 mcg - Labs Labs: 11/12/16 07:13 11/12/16 07:13 PT 11.7 SECONDS (9.7-12.2) 11/04/16 07:45 INR 1.0 11/04/16 07:45 APTT 37 SECONDS (21-34) H D 11/04/16 13:51 - Constitutional Appears: Well - Head Exam Head Exam: ATRAUMATIC, NORMAL INSPECTION, NORMOCEPHALIC - Eye Exam Eye Exam: EOMI, Normal appearance, PERRL Pupil Exam: NORMAL ACCOMODATION, PERRL - ENT Exam ENT Exam: Mucous Membranes Moist, Normal Exam - Neck Exam Neck Exam: Full ROM, Normal Inspection. absent: Lymphadenopathy - Respiratory Exam Respiratory Exam: Decreased Breath Sounds - Cardiovascular Exam Cardiovascular Exam: REGULAR RHYTHM, +S1, +S2 - GI/Abdominal Exam GI & Abdominal Exam: Soft, Diminished Bowel Sounds - Rectal Exam Rectal Exam: Deferred Assessment and Plan (1) Cardiac dysrhythmia Status: Acute (2) ESRD (end stage renal disease) on dialysis Status: Acute (3) Pulmonary edema Status: Acute (4) MARCO (acute kidney injury) Status: Acute (5) Acute respiratory failure requiring reintubation Status: Acute (6) Arthritis Status: Acute (7) CHF (congestive heart failure) Status: Acute (8) Dehydration Status: Acute (9) Dehydration Status: Acute (10) Diverticulosis Status: Acute (11) Elevated CEA Status: Acute (12) Hypertension Status: Acute (13) Inguinal lymphadenopathy Status: Acute (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
--- NOTE | 2016-11-18 08:16 | PN ---
LOCATION: [facility], bed A. SUBJECTIVE: This is an 81-year-old female, seen and examined early in rounds without significant clinical changes, tolerating PEG feeding well, still on hemodialysis. No reported active bleeding residual or resistance. No shortness of breath or chest pain reported. The entire chart is reviewed, including but not limited to the most recent lab and radiology study results, current and the previous medication list. Case discussed with the staff at length. PHYSICAL EXAMINATION: GENERAL: An 81-year-old female. VITAL SIGNS: With low-grade temperature of 99.74 with blood pressure 150/64 with heart rate of 58, respiratory rate 20 to 22. HEENT: Show pale, dry oral mucous membrane. Nonicteric sclerae. LUNGS: Few scattered crepitations, decreased air entry at bases. HEART: Positive S1 and S2. ABDOMEN: Soft. Bowel sounds are present. PEG tube is in place without evidence of anterior abdominal wall cellulitis. EXTREMITIES: With slight lower extremities edematous changes. No clubbing or cyanosis. NEUROLOGIC: No reported new neurological deficits, sensory or motor. IMPRESSION: 1. Malnutrition and hypoalbuminemia. 2. Failure to thrive. 3. Status post PEG insertion. 4. Known history of chronic renal disease, on hemodialysis. 5. Known history of cardiomyopathy with hypertension. 6. Peptic ulcer disease. 7. Anemia secondary to above. 8. Known history of thrombotic thrombocytopenic purpura. SUGGESTIONS: 1. Continue current management. 2. Increase the rate of feeding as tolerated. 3. Repeat H and H with blood transfusion as needed. Keep hemoglobin around 10 g. Yasmine Oneill MD
--- NOTE | 2016-11-18 08:23 | CP.PCM.PN ---
Subjective - Date & Time of Evaluation Date of Evaluation: 11/18/16 Time of Evaluation: 08:23 - Subjective Subjective: PGY-[address] Ureña's service: Pt seen and examined at bedside. Pt for hemodialysis today. Nursing reports patient bradycardic overnight. Pt somnolent at bedside responding to loud verbal cues and painful stimuli which family reports is usual state lately. ROS unobtainable due to pt condition. Objective - Vital Signs/Intake and Output Vital Signs (last 24 hours): Temp Pulse Resp BP Pulse Ox 100.1 F H 46 L 20 148/74 97 11/18/16 07:00 11/18/16 07:00 11/18/16 07:00 11/18/16 07:00 11/18/16 07:00 Intake and Output: 11/18/16 11/18/16 06:59 18:59 Intake Total 430 Balance 430 - Medications Medications: Current Medications Epoetin Herve (Procrit) 10,000 unit IV TTS [facility] Last Admin: 11/15/16 10:43 Dose: 10,000 unit Heparin Sodium (Porcine) (Heparin) 5,000 units IVP TTS [facility] Last Admin: 11/15/16 11:44 Dose: 5,000 units Heparin Sodium (Porcine) (Heparin) 1,000 units IVP TTS [facility] Stop: 11/29/16 10:01 Hydralazine HCl (Apresoline) 10 mg IVP Q6H PRN PRN Reason: HIgh BP Multivitamins/Vitamin C (Multi-Delyn Liquid) 5 ml GT 1200 [facility] Last Admin: 11/17/16 11:39 Dose: 5 ml Pantoprazole Sodium (Protonix Inj) 40 mg IVP Q12H [facility] Last Admin: 11/17/16 22:48 Dose: 40 mg Paricalcitol (Zemplar) 1 mcg IV TTS [facility] Last Admin: 11/15/16 10:44 Dose: 1 mcg - Labs Labs: 11/12/16 07:13 11/12/16 07:13 PT 11.7 SECONDS (9.7-12.2) 11/04/16 07:45 INR 1.0 11/04/16 07:45 APTT 37 SECONDS (21-34) H D 11/04/16 13:51 - Additional Findings Additional findings: - Constitutional Appears: Non-toxic, No Acute Distress - Head Exam Head Exam: ATRAUMATIC, NORMOCEPHALIC - Eye Exam Eye Exam: EOMI, Normal appearance - ENT Exam ENT Exam: Mucous Membranes Dry - Respiratory Exam Respiratory Exam: Clear to Ausculation Bilateral, NORMAL BREATHING PATTERN. absent: Rhonchi, Wheezes - Cardiovascular Exam Cardiovascular Exam: Bradycardic, +S1, +S2 - GI/Abdominal Exam GI & Abdominal Exam: Soft, Normal Bowel Sounds. absent: Tenderness Additional comments: PEG tube in place, site dry, no erythema - Extremities Exam Extremities Exam: Normal Inspection. absent: Pedal Edema, Tenderness - Neurological Exam Neurological Exam: Alert, Somnolent - will respond to verbal cues, painful stimulation - Psychiatric Exam Psychiatric exam: Normal Affect, Normal Mood - Skin Skin Exam: Normal Color, Warm Assessment and Plan - Assessment and Plan (Free Text) Plan: Malnutrition PEG tube in place Dr. Goode, GI interior design consultant - increase rate of feeding as tolerated Dietary: recommending 40ml/hr of Nepro ESRD (end stage renal disease) on dialysis; chronic with non functional permacath -patient new permacath placed 11/14 -c/w epoitin for anemia 2/2 to CKD; stable and chronic -Continue epogen -continue IV iron -Nephrocaps 1 tab daily -Zemplar 1mcg TTS with dialysis Cardiomyopathy with low EF Cardiology consult, Dr. Salmon, f/u recs which state: Medical management due to poor general condition. Due to dementia not a candidate for cath or AICD/ LifeVest Bradycardic episode Rate 46 bpm at bedside (11/18) several episodes of tachy/hansa over course EKG (11/18/16): Lt axis deviation, consistent with previous LBBB, No acute ST-T wave changes - prior ekgs showing heart block, LBBB INESSA: negative x 1 - due to pt dementia ROS unavailable Restart tele monitoring Hyperkalemia; resolved -will continue to monitor TTP (thrombotic thrombocytopenic purpura); resolved resolved Vaginal Bleed; resolved 10/29: Endometrial us shows thick endometrium 10/28: ObGyn Consult on 10/27 2/2 vaginal bleeding, f/u recs - Please f/u transvaginal/pelvic ultrasound for evaluation of endometrial stripe, and re- consult. * Medication review noted for patient having received a bolus of heparin. - in the post menopausal state, it is not uncommon for a woman to experience post menopausal (vaginal) bleeding with the administration of heparin. Prophylaxis PT / OT Swallow eval/treat SCDs Disposition: In light of pt with dementia, ESRD, Cardiomyopathy with low EF (~ 10% per Dr. Salmon) - which pt is not candidate for AICD/Lifevest, have asked Palliative care to speak with family again about end of life goals. Impression from talking with daughter at bedside, through promotion writer, is family does not understand how sick patient is. Asked daughter at beside if she would consider hospice, but daughter cut off conversation. Daniel Contreras PGY-[address] Ureña. All orders entered on behalf of Dr. Ureña
--- NOTE | 2016-11-18 08:31 | PN ---
FOLLOWUP RENAL CONSULTATION DATE: 11/17/2016 LOCATION: The patient is located in room 661, bed A. REQUESTED BY: Kavon Ureña MD REASON FOR FOLLOWUP: End-stage renal disease, continuation of the hemodialysis. SUBJECTIVE: Mrs. Denise Garcia is an 81-year-old elderly female with a past medical history significant for long-standing hypertension and rheumatoid arthritis, cardiomyopathy, thrombocythemia, TTP and renal failure, on hemodialysis three times a week, Thursday, , Thursday was admitted about two months ago with altered mental status, status post treatment for TTP with plasmapheresis and Rituximab. The patient is not in acute distress. No shortness of breath. No chest pain. Responding poorly. PHYSICAL EXAMINATION: GENERAL: Mrs. Denise Garcia is an 81-year-old elderly female, moderately build, moderately nourished, no tin acute distress. VITAL SIGNS: Blood pressure 115/77, pulse 109, respirations 18, temperature 99.3, and saturation 95%. Height 5 feet 2 inches and weight is 120 pounds. HEENT: Pupils normal and reactive to light and accommodation. Conjunctivae pink. Sclerae anicteric. Tongue is moist. Trachea is midline. No thyroid enlargement. LUNGS: Symmetric on both sides. Bilateral breath sounds present. Clear on auscultation. CARDIOVASCULAR SYSTEM: [place] at the sixth intercostal space, midclavicular line. S1 and S2 audible. No murmur or gallop. ABDOMEN: Normal in appearance. Soft and tympanic. No guarding. No rigidity. No hepatosplenomegaly. CENTRAL NERVOUS SYSTEM: The patient is arousable, following simple commands. EXTREMITIES: No cyanosis, no clubbing, no edema. The patient is bedridden for the last three months. MEDICATIONS: Her current medications include as follows hydralazine p.r.n., heparin 5000 units in the Perm-A Cath three times a week, multivitamin liquid 5 mL by G-tube, Procrit 10,000 units three times a week, Protonix 40 mg IV q. 12 hours and Zemplar 1 mcg three times a week. LABORATORY DATA: No new labs are available as of 11/12/2016. H and H 10.7 and 34.3, platelets 155. Sodium 138, potassium 5.2, chloride 98, CO2 of 29, BUN 46, creatinine 3.1, glucose 97, calcium 9.3, and total bilirubin 0.6. AST 54, ALT 44, alkaline phosphatase 197, total protein 6.8, albumin is 3.1. ASSESSMENT AND PLAN: In summary, Mrs. Denise Garcia is an 81-year-old elderly female with a past medical history significant for hypertension; rheumatoid arthritis; cardiomyopathy ;thrombocytopenia ;thrombotic thrombocytopenic purpura; end-stage renal disease, on hemodialysis, status post percutaneous endoscopic gastrostomy tube placement. 1. End-stage renal disease. Continue hemodialysis three times a week, Thursday, , Thursday. 2. Hypertension. Blood pressure is stable, on hydralazine p.r.n. 3. Anemia, H and H is improving with Epogen. 4. Status post thrombotic thrombocytopenic purpura. Platelets are within normal limits and for possible discharge to home post dialysis tomorrow. We will follow with you. Thank you for allowing me to participate in your patient's care. Overall, prognosis is extremely poor. Horacio Graham MD
[2016-11-18 08:33] LABS: BASO # 0.1 K/uL (0.0-0.2); BASO % 0.9 % (0.0-2.0); EOS # 0.7 K/uL (0.0-0.7); EOS % 6.1 % (0.0-4.0); HEMATOCRIT 37.6 % (34.0-47.0); LYMPH # 1.7 K/uL (1.0-4.3); LYMPH % 15.2 % (20.0-40.0); MEAN CELL VOLUME 87.8 fL (81.0-99.0); MEAN CORPUSCULAR HEMOGLOBIN 27.3 pg (27.0-31.0); MEAN CORPUSCULAR HGB CONC 31.1 g/dL (33.0-37.0); MEAN PLATELET VOLUME 10.6 fL (7.2-11.7); MONO # 1.5 K/uL (0.0-0.8); MONO % 13.4 % (0.0-10.0); NRBC % 0.2 % (0.0-2.0); WHITE BLOOD COUNT 10.9 K/uL (4.8-10.8)
[2016-11-18 08:49] LABS: POTASSIUM 5.7 mmol/L (3.6-5.2)
[2016-11-18 08:51] LABS: ALB/GLOB RATIO 0.8 (1.0-2.1); BILIRUBIN,TOTAL 0.5 mg/dL (0.2-1.3); TOTAL PROTEIN 7.4 g/dL (6.3-8.3)
[2016-11-18 08:52] LABS: CALCIUM 10.7 mg/dl (8.6-10.4); PHOSPHOROUS 3.1 mg/dL (2.5-4.5)
--- NOTE | 2016-11-18 09:39 | CP.PCM.PN ---
Subjective - Date & Time of Evaluation Date of Evaluation: 11/18/16 Time of Evaluation: 09:38 - Subjective Subjective: pt is seen and examined, follow up consult is dictated #[id number] 1. esrd 2. hyperkalemia for hd today Objective - Vital Signs/Intake and Output Vital Signs (last 24 hours): Temp Pulse Resp BP Pulse Ox 100.1 F H 46 L 20 148/74 97 11/18/16 07:00 11/18/16 07:00 11/18/16 07:00 11/18/16 07:00 11/18/16 07:00 Intake and Output: 11/18/16 11/18/16 06:59 18:59 Intake Total 430 Balance 430 - Medications Medications: Current Medications Epoetin Herve (Procrit) 10,000 unit IV TTS JESSI Last Admin: 11/15/16 10:43 Dose: 10,000 unit Heparin Sodium (Porcine) (Heparin) 5,000 units IVP TTS JESSI Last Admin: 11/15/16 11:44 Dose: 5,000 units Heparin Sodium (Porcine) (Heparin) 1,000 units IVP TTS JESSI Stop: 11/29/16 10:01 Hydralazine HCl (Apresoline) 10 mg IVP Q6H PRN PRN Reason: HIgh BP Multivitamins/Vitamin C (Multi-Delyn Liquid) 5 ml GT 1200 JESSI Last Admin: 11/17/16 11:39 Dose: 5 ml Pantoprazole Sodium (Protonix Inj) 40 mg IVP Q12H JESSI Last Admin: 11/17/16 22:48 Dose: 40 mg Paricalcitol (Zemplar) 1 mcg IV TTS JESSI Last Admin: 11/15/16 10:44 Dose: 1 mcg - Labs Labs: 11/18/16 08:22 11/18/16 08:22 PT 11.7 SECONDS (9.7-12.2) 11/04/16 07:45 INR 1.0 11/04/16 07:45 APTT 37 SECONDS (21-34) H D 11/04/16 13:51
[2016-11-18] MEDS: Paricalcitol 2 mcg/ml Inj IV SCH (10:00)
[2016-11-18] MEDS: Epoetin Alfa 10,000 unit/ml Dialysis IV SCH (10:00)
[2016-11-18] MEDS: Multiple Vitamins Oral Solution GT SCH (11:57)
[2016-11-18 14:59] LABS: POTASSIUM 5.3 mmol/L (3.6-5.2)
[2016-11-18 15:02] LABS: CALCIUM 10.2 mg/dl (8.6-10.4)
--- NOTE | 2016-11-18 15:17 | CARD ---
APPROVED REPORT EKG Measurement Heart [id number] ID [id number] <Conclusion> Sinus tachycardia Left axis deviation Left ventricular hypertrophy with QRS widening and repolarization abnormality Abnormal ECG
--- NOTE | 2016-11-18 18:09 | CP.PCM.PN ---
Subjective - Date & Time of Evaluation Date of Evaluation: 11/18/16 Time of Evaluation: 10:00 - Subjective Subjective: Appears comfortable Objective - Vital Signs/Intake and Output Vital Signs (last 24 hours): Temp Pulse Resp BP Pulse Ox 99.3 F 46 L 20 112/080 H 97 11/18/16 10:15 11/18/16 12:43 11/18/16 07:00 11/18/16 17:15 11/18/16 07:00 Intake and Output: 11/18/16 11/18/16 06:59 18:59 Intake Total 430 Balance 430 - Medications Medications: Current Medications Epoetin Herve (Procrit) 10,000 unit IV TTS JESSI Last Admin: 11/18/16 10:00 Dose: Not Given Heparin Sodium (Porcine) (Heparin) 1,000 units IVP TTS JESSI Stop: 11/29/16 10:01 Last Admin: 11/18/16 16:43 Dose: 1,000 units Hydralazine HCl (Apresoline) 10 mg IVP Q6H PRN PRN Reason: HIgh BP Multivitamins/Vitamin C (Multi-Delyn Liquid) 5 ml GT 1200 JESSI Last Admin: 11/18/16 11:57 Dose: 5 ml Pantoprazole Sodium (Protonix Inj) 40 mg IVP Q12H JESSI Last Admin: 11/18/16 11:30 Dose: 40 mg Paricalcitol (Zemplar) 1 mcg IV TTS JESSI Last Admin: 11/18/16 10:00 Dose: Not Given - Labs Labs: 11/18/16 08:22 11/18/16 14:47 PT 11.7 SECONDS (9.7-12.2) 11/04/16 07:45 INR 1.0 11/04/16 07:45 APTT 37 SECONDS (21-34) H D 11/04/16 13:51 - Head Exam Head Exam: ATRAUMATIC - Eye Exam Eye Exam: Normal appearance - ENT Exam ENT Exam: Mucous Membranes Dry - Respiratory Exam Respiratory Exam: NORMAL BREATHING PATTERN - Cardiovascular Exam Cardiovascular Exam: +S1, +S2 - GI/Abdominal Exam GI & Abdominal Exam: Normal Bowel Sounds - Extremities Exam Extremities Exam: Normal Inspection Assessment and Plan (1) Anemia Assessment & Plan: anemia of CKD on EPO Status: Acute (2) TTP (thrombotic thrombocytopenic purpura) Assessment & Plan: resolved Status: Acute
--- NOTE | 2016-11-18 18:12 | CP.PCM.PN ---
Subjective - Date & Time of Evaluation Date of Evaluation: 11/17/16 Time of Evaluation: 20:00 - Subjective Subjective: Appears comfortable Objective - Vital Signs/Intake and Output Vital Signs (last 24 hours): Temp Pulse Resp BP Pulse Ox 99.3 F 46 L 20 112/080 H 97 11/18/16 10:15 11/18/16 12:43 11/18/16 07:00 11/18/16 17:15 11/18/16 07:00 Intake and Output: 11/18/16 11/18/16 06:59 18:59 Intake Total 430 Balance 430 - Medications Medications: Current Medications Epoetin Herve (Procrit) 10,000 unit IV TTS JESSI Last Admin: 11/18/16 10:00 Dose: Not Given Heparin Sodium (Porcine) (Heparin) 1,000 units IVP TTS JESSI Stop: 11/29/16 10:01 Last Admin: 11/18/16 16:43 Dose: 1,000 units Hydralazine HCl (Apresoline) 10 mg IVP Q6H PRN PRN Reason: HIgh BP Multivitamins/Vitamin C (Multi-Delyn Liquid) 5 ml GT 1200 JESSI Last Admin: 11/18/16 11:57 Dose: 5 ml Pantoprazole Sodium (Protonix Inj) 40 mg IVP Q12H JESSI Last Admin: 11/18/16 11:30 Dose: 40 mg Paricalcitol (Zemplar) 1 mcg IV TTS JESSI Last Admin: 11/18/16 10:00 Dose: Not Given - Labs Labs: 11/18/16 08:22 11/18/16 14:47 PT 11.7 SECONDS (9.7-12.2) 11/04/16 07:45 INR 1.0 11/04/16 07:45 APTT 37 SECONDS (21-34) H D 11/04/16 13:51 - Head Exam Head Exam: ATRAUMATIC - Eye Exam Eye Exam: Normal appearance - ENT Exam ENT Exam: Mucous Membranes Dry - Respiratory Exam Respiratory Exam: NORMAL BREATHING PATTERN - Cardiovascular Exam Cardiovascular Exam: +S1, +S2 - GI/Abdominal Exam GI & Abdominal Exam: Normal Bowel Sounds - Extremities Exam Extremities Exam: Normal Inspection Assessment and Plan (1) Anemia Assessment & Plan: anemia of CKD on EPO Status: Acute (2) TTP (thrombotic thrombocytopenic purpura) Assessment & Plan: resolved Status: Acute
--- NOTE | 2016-11-18 18:26 | CP.PCM.PN ---
Subjective - Date & Time of Evaluation Date of Evaluation: 11/14/16 Time of Evaluation: 20:00 - Subjective Subjective: Appears comfortable Objective - Vital Signs/Intake and Output Vital Signs (last 24 hours): Temp Pulse Resp BP Pulse Ox 98.1 F 96 H 15 130/93 H 97 11/18/16 17:45 11/18/16 17:45 11/18/16 17:45 11/18/16 17:45 11/18/16 17:45 Intake and Output: 11/18/16 11/18/16 06:59 18:59 Intake Total 430 Balance 430 - Medications Medications: Current Medications Epoetin Herve (Procrit) 10,000 unit IV TTS JESSI Last Admin: 11/18/16 10:00 Dose: Not Given Heparin Sodium (Porcine) (Heparin) 1,000 units IVP TTS JESSI Stop: 11/29/16 10:01 Last Admin: 11/18/16 16:43 Dose: 1,000 units Hydralazine HCl (Apresoline) 10 mg IVP Q6H PRN PRN Reason: HIgh BP Multivitamins/Vitamin C (Multi-Delyn Liquid) 5 ml GT 1200 JESSI Last Admin: 11/18/16 11:57 Dose: 5 ml Pantoprazole Sodium (Protonix Inj) 40 mg IVP Q12H JESSI Last Admin: 11/18/16 11:30 Dose: 40 mg Paricalcitol (Zemplar) 1 mcg IV TTS JESSI Last Admin: 11/18/16 10:00 Dose: Not Given - Labs Labs: 11/18/16 08:22 11/18/16 14:47 PT 11.7 SECONDS (9.7-12.2) 11/04/16 07:45 INR 1.0 11/04/16 07:45 APTT 37 SECONDS (21-34) H D 11/04/16 13:51 - Head Exam Head Exam: ATRAUMATIC - Eye Exam Eye Exam: Normal appearance - ENT Exam ENT Exam: Mucous Membranes Dry - Respiratory Exam Respiratory Exam: NORMAL BREATHING PATTERN - Cardiovascular Exam Cardiovascular Exam: +S1, +S2 - GI/Abdominal Exam GI & Abdominal Exam: Normal Bowel Sounds Assessment and Plan (1) Anemia Assessment & Plan: anemia of CKD on EPO Status: Acute (2) TTP (thrombotic thrombocytopenic purpura) Assessment & Plan: resolved Status: Acute
--- NOTE | 2016-11-18 18:32 | CP.PCM.PN ---
Subjective - Date & Time of Evaluation Date of Evaluation: 11/13/16 Time of Evaluation: 20:00 - Subjective Subjective: Appears comfortable Objective - Vital Signs/Intake and Output Vital Signs (last 24 hours): Temp Pulse Resp BP Pulse Ox 98.1 F 96 H 15 130/93 H 97 11/18/16 17:45 11/18/16 17:45 11/18/16 17:45 11/18/16 17:45 11/18/16 17:45 Intake and Output: 11/18/16 11/18/16 06:59 18:59 Intake Total 430 Balance 430 - Medications Medications: Current Medications Epoetin Herve (Procrit) 10,000 unit IV TTS JESSI Last Admin: 11/18/16 10:00 Dose: Not Given Heparin Sodium (Porcine) (Heparin) 1,000 units IVP TTS JESSI Stop: 11/29/16 10:01 Last Admin: 11/18/16 16:43 Dose: 1,000 units Hydralazine HCl (Apresoline) 10 mg IVP Q6H PRN PRN Reason: HIgh BP Multivitamins/Vitamin C (Multi-Delyn Liquid) 5 ml GT 1200 JESSI Last Admin: 11/18/16 11:57 Dose: 5 ml Pantoprazole Sodium (Protonix Inj) 40 mg IVP Q12H JESSI Last Admin: 11/18/16 11:30 Dose: 40 mg Paricalcitol (Zemplar) 1 mcg IV TTS JESSI Last Admin: 11/18/16 10:00 Dose: Not Given - Labs Labs: 11/18/16 08:22 11/18/16 14:47 PT 11.7 SECONDS (9.7-12.2) 11/04/16 07:45 INR 1.0 11/04/16 07:45 APTT 37 SECONDS (21-34) H D 11/04/16 13:51 - Head Exam Head Exam: ATRAUMATIC - Eye Exam Eye Exam: Normal appearance - ENT Exam ENT Exam: Mucous Membranes Dry - Respiratory Exam Respiratory Exam: NORMAL BREATHING PATTERN - Cardiovascular Exam Cardiovascular Exam: +S1, +S2 - GI/Abdominal Exam GI & Abdominal Exam: Normal Bowel Sounds - Extremities Exam Extremities Exam: Normal Inspection Assessment and Plan (1) Anemia Assessment & Plan: anemia of CKD on EPO Status: Acute (2) TTP (thrombotic thrombocytopenic purpura) Assessment & Plan: resolved Status: Acute
--- NOTE | 2016-11-18 20:09 | CP.PCM.PN ---
Subjective - Date & Time of Evaluation Date of Evaluation: 11/18/16 Time of Evaluation: 09:40 - Subjective Subjective: clinically same Objective - Vital Signs/Intake and Output Vital Signs (last 24 hours): Temp Pulse Resp BP Pulse Ox 98.2 F 96 H 18 144/87 99 11/18/16 19:54 11/18/16 19:54 11/18/16 19:54 11/18/16 19:54 11/18/16 19:54 - Medications Medications: Current Medications Epoetin Herve (Procrit) 10,000 unit IV TTS JESSI Last Admin: 11/18/16 10:00 Dose: Not Given Heparin Sodium (Porcine) (Heparin) 1,000 units IVP TTS JESSI Stop: 11/29/16 10:01 Last Admin: 11/18/16 16:43 Dose: 1,000 units Hydralazine HCl (Apresoline) 10 mg IVP Q6H PRN PRN Reason: HIgh BP Multivitamins/Vitamin C (Multi-Delyn Liquid) 5 ml GT 1200 JESSI Last Admin: 11/18/16 11:57 Dose: 5 ml Pantoprazole Sodium (Protonix Inj) 40 mg IVP Q12H JESSI Last Admin: 11/18/16 11:30 Dose: 40 mg Paricalcitol (Zemplar) 1 mcg IV TTS JESSI Last Admin: 11/18/16 10:00 Dose: Not Given - Labs Labs: 11/18/16 08:22 11/18/16 14:47 PT 11.7 SECONDS (9.7-12.2) 11/04/16 07:45 INR 1.0 11/04/16 07:45 APTT 37 SECONDS (21-34) H D 11/04/16 13:51 Assessment and Plan (1) Cardiac dysrhythmia Status: Acute (2) ESRD (end stage renal disease) on dialysis Status: Acute (3) Pulmonary edema Status: Acute (4) MARCO (acute kidney injury) Status: Acute (5) Acute respiratory failure requiring reintubation Status: Acute (6) Arthritis Status: Acute (7) CHF (congestive heart failure) Status: Acute (8) Dehydration Status: Acute (9) Dehydration Status: Acute (10) Diverticulosis Status: Acute (11) Elevated CEA Status: Acute (12) Hypertension Status: Acute (13) Inguinal lymphadenopathy Status: Acute (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
--- NOTE | 2016-11-19 08:15 | PN ---
FOLLOWUP RENAL CONSULTATION DATE:11/18/2016 LOCATION: The patient is located in room 661, bed A and B in [facility] . REQUESTED BY: Dr. Kavon Ureña. REASON FOR FOLLOW: End-stage renal disease. HISTORY OF PRESENT ILLNESS: Mrs. 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 The patient is not in acute distress. Denies acute complaints. No chest pain. No palpitation. PHYSICAL EXAMINATION GENERAL: Mrs. Denise Garcia is an 81-year-old elderly female, not in distress, sitting comfortably. VITAL SIGNS: Blood pressure this morning 148/74, pulse 46, respiration 20, temperature 100.1. HEENT: Pupils normal and reactive to light and accommodation. Conjunctivae pink. Sclerae anicteric. Tongue is moist. LUNGS: Symmetrical on both sides. Bilateral breath sounds present. Clear on auscultation. CARDIOVASCULAR: [place] at the sixth intercostal space, midclavicular line. S1 and S2 audible. Slightly bradycardiac. ABDOMEN: Normal in appearance, soft, and tympanic. No guarding. No rigidity. PEG tube placed. CENTRAL NERVOUS SYSTEM: The patient is arousable, following simple commands. EXTREMITIES: No cyanosis. No clubbing. No edema. CURRENT MEDICATIONS: Include hydralazine 10 mg IV q. 6 hours p.r.n., heparin 1000 units IV push during dialysis 3 times a week and multivitamins liquid 5 mL by G-tube daily, Epogen 89019 units 3 times a week, Protonix 40 mg IV q. 12 hours, Zemplar 1 mcg 3 times a week. LABORATORY DATA: Include as follows: As of 11/18/2016, WBC is 10.9, hemoglobin 11.7, hematocrit is 37.6, platelets 199. Sodium is 139, potassium 5.7, chloride 96, CO2 29, BUN 110, creatinine 6.2, glucose 161, calcium 10.7, phosphorus 3.1, total bilirubin , AST 38, ALT 42, alkaline phosphatase 276, CPK 22, troponin 0.056, total protein 7.4, albumin is 3.3. ASSESSMENT AND PLAN: In summary, Mrs. 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 1. End stage renal disease, continue hemodialysis 3 times a week, Thursday, , and Thursday. 2. Hyperkalemia, most likely secondary to end-stage renal disease and poorly functioning Perm-A-cath. 3. Hypertension. 4. Status post thrombocytopenia and status post plasmapheresis, on rituximab now. Platelets are within normal limits. The patient is scheduled for hemodialysis today. We will dialyze with 1k bath and also repeat the BMP post dialysis. Thank you for allowing me to participate in our patient's care. Horacio Graham MD
--- NOTE | 2016-11-19 10:26 | CP.PCM.PN ---
Subjective - Date & Time of Evaluation Date of Evaluation: 11/19/16 Time of Evaluation: 10:25 - Subjective Subjective: pt is seen and examined, follow up consult is dictated #[id number] check bmp today Objective - Vital Signs/Intake and Output Vital Signs (last 24 hours): Temp Pulse Resp BP Pulse Ox 99.6 F 94 H 20 132/75 95 11/19/16 07:00 11/19/16 07:43 11/19/16 07:00 11/19/16 07:00 11/19/16 07:00 Intake and Output: 11/19/16 11/19/16 06:59 18:59 Intake Total 380 Balance 380 - Medications Medications: Current Medications Epoetin Herve (Procrit) 10,000 unit IV TTS JESSI Last Admin: 11/18/16 10:00 Dose: Not Given Heparin Sodium (Porcine) (Heparin) 1,000 units IVP TTS JESSI Stop: 11/29/16 10:01 Last Admin: 11/18/16 16:43 Dose: 1,000 units Hydralazine HCl (Apresoline) 10 mg IVP Q6H PRN PRN Reason: HIgh BP Multivitamins/Vitamin C (Multi-Delyn Liquid) 5 ml GT 1200 JESSI Last Admin: 11/18/16 11:57 Dose: 5 ml Pantoprazole Sodium (Protonix Inj) 40 mg IVP Q12H JESSI Last Admin: 11/18/16 22:15 Dose: 40 mg Paricalcitol (Zemplar) 1 mcg IV TTS JESSI Last Admin: 11/18/16 10:00 Dose: Not Given - Labs Labs: 11/18/16 08:22 11/18/16 14:47 PT 11.7 SECONDS (9.7-12.2) 11/04/16 07:45 INR 1.0 11/04/16 07:45 APTT 37 SECONDS (21-34) H D 11/04/16 13:51
--- NOTE | 2016-11-19 10:39 | CP.PCM.PN ---
Subjective - Date & Time of Evaluation Date of Evaluation: 11/19/16 Time of Evaluation: 10:00 - Subjective Subjective: PGY3 on medicine Dr. Ureña service: Pt seen and examined at bedside. Mental status unchanged, respond to painful simuli. S/P HD yesterday. No bradycardia for past 24 hours. No acute events overnight. Pt to be discharged today with home meds. Pt to continue PEG feeding at home and dialysis transportation will be arranged as per case management. Objective - Vital Signs/Intake and Output Vital Signs (last 24 hours): Temp Pulse Resp BP Pulse Ox 99.6 F 94 H 20 132/75 95 11/19/16 07:00 11/19/16 07:43 11/19/16 07:00 11/19/16 07:00 11/19/16 07:00 Intake and Output: 11/19/16 11/19/16 06:59 18:59 Intake Total 380 Balance 380 - Medications Medications: Current Medications Epoetin Herve (Procrit) 10,000 unit IV TTS [facility] Last Admin: 11/18/16 10:00 Dose: Not Given Heparin Sodium (Porcine) (Heparin) 1,000 units IVP TTS [facility] Stop: 11/29/16 10:01 Last Admin: 11/18/16 16:43 Dose: 1,000 units Hydralazine HCl (Apresoline) 10 mg IVP Q6H PRN PRN Reason: HIgh BP Multivitamins/Vitamin C (Multi-Delyn Liquid) 5 ml GT 1200 JESSI Last Admin: 11/18/16 11:57 Dose: 5 ml Pantoprazole Sodium (Protonix Inj) 40 mg IVP Q12H [facility] Last Admin: 11/18/16 22:15 Dose: 40 mg Paricalcitol (Zemplar) 1 mcg IV TTS JESSI Last Admin: 11/18/16 10:00 Dose: Not Given - Labs Labs: 11/18/16 08:22 11/18/16 14:47 PT 11.7 SECONDS (9.7-12.2) 11/04/16 07:45 INR 1.0 11/04/16 07:45 APTT 37 SECONDS (21-34) H D 11/04/16 13:51 - Constitutional Appears: Non-toxic, No Acute Distress, Chronically Ill - Head Exam Head Exam: NORMOCEPHALIC - Eye Exam Eye Exam: Normal appearance Pupil Exam: NORMAL ACCOMODATION - ENT Exam ENT Exam: Mucous Membranes Moist - Respiratory Exam Respiratory Exam: Clear to Ausculation Bilateral, NORMAL BREATHING PATTERN. absent: Rhonchi, Wheezes - Cardiovascular Exam Cardiovascular Exam: REGULAR RHYTHM, +S1, +S2. absent: Gallop, Rubs - GI/Abdominal Exam GI & Abdominal Exam: Soft, Normal Bowel Sounds. absent: Tenderness, Hyperactive Bowel Sounds - Neurological Exam Neurological Exam: Alert, Awake. absent: Oriented x3 - Psychiatric Exam Psychiatric exam: Normal Mood - Skin Skin Exam: Intact Assessment and Plan - Assessment and Plan (Free Text) Assessment: Malnutrition PEG tube in place Dr. Goode, GI farm service consultant - increase rate of feeding as tolerated Dietary: recommending 40ml/hr of Nepro ESRD (end stage renal disease) on dialysis; chronic with non functional permacath -patient new permacath placed 11/14 -c/w epoitin for anemia 2/2 to CKD; stable and chronic -Continue epogen -continue IV iron -Nephrocaps 1 tab daily -Zemplar 1mcg TTS with dialysis -Transportation arranged as per case management Cardiomyopathy with low EF Cardiology consult, Dr. Salmon, f/u recs which state: Medical management due to poor general condition. Due to dementia not a candidate for cath or AICD/ LifeVest Bradycardic episode Rate 46 bpm at bedside (11/18) several episodes of tachy/hansa over course EKG (11/18/16): Lt axis deviation, consistent with previous LBBB, No acute ST-T wave changes - prior ekgs showing heart block, LBBB INESSA: negative x 1 - due to pt dementia ROS unavailable Resolved, stable for past 24hours (11/19) Hyperkalemia; resolved -will continue to monitor TTP (thrombotic thrombocytopenic purpura); resolved resolved Vaginal Bleed; resolved 10/29: Endometrial us shows thick endometrium 10/28: ObGyn Consult on 10/27 2/2 vaginal bleeding, f/u recs - Please f/u transvaginal/pelvic ultrasound for evaluation of endometrial stripe, and re- consult. * Medication review noted for patient having received a bolus of heparin. - in the post menopausal state, it is not uncommon for a woman to experience post menopausal (vaginal) bleeding with the administration of heparin. Case discussed with Dr. Ureña. All orders entered on behalf of Dr. Ureña
[2016-11-19] MEDS: Multiple Vitamins Oral Solution GT SCH (11:51)
[2016-11-19 12:01] LABS: POTASSIUM 4.5 mmol/L (3.6-5.2)
[2016-11-19 12:05] LABS: CALCIUM 9.1 mg/dl (8.6-10.4)
--- NOTE | 2016-11-19 12:20 | PN ---
DATE: LOCATION: [facility], bed A. SUBJECTIVE: This is an 81-year-old female, post PEG insertion, seen early in rounds today without any significant changes tolerating PEG feeding well without residual bleeding or resistance. No reported chest pain or palpitations or significant complaint of shortness of breath, chills, or fever. The entire chart is reviewed, including but not limited to the most recent lab and radiology study results, current and the previous medication list, current and the previous medical events were discussed at length with this staff in the floor and these labs showed blood glucose levels of 180. Rest of the lab is still pending and the patient still has elevated BUN and creatinine as well as elevated potassium due to her chronic renal failure, still on hemodialysis with recently reported low albumin. PHYSICAL EXAMINATION: GENERAL: An 81-year-old female. VITAL SIGNS: With low-grade temperature 99.9, heart rate of 92 with respiratory rate 20-22, and blood pressure 136/72. HEENT: Shows pale, dry oral mucous membrane. Nonicteric sclerae. LUNGS: Clear to auscultation. Decreased air entry at bases. HEART: Positive S1 and S2. ABDOMEN: Soft. Bowel sounds are present. No mass or organomegaly. No rebound, tenderness, or guarding. PEG tube is in place and intact. NEUROLOGIC: No reported new neurological deficits, sensory or motor. IMPRESSION: 1. Failure to thrive. 2. Hypoalbuminemia. 3. Malnutrition. 4. Status post percutaneous endoscopic gastrostomy insertion. 5. Known history of hypertension or cardiomyopathy. 6. Chronic renal failure on hemodialysis. 7. Peptic ulcer disease. 8. Anemia secondary to above. 9. Known history of thrombotic thrombocytopenic purpura. SUGGESTIONS: 1. Continue current management. 2. Repeat stool for occult blood. 3. Increase rate of feeding gradually as tolerated. Yasmine Oneill MD cc: Yasmine Oneill MD
--- NOTE | 2016-11-19 16:44 | PN ---
DATE: FOLLOWUP RENAL CONSULTATION LOCATION: The patient is located in 661, bed A. REQUESTED BY: Dr. Kavon Ureña. SUBJECTIVE: Mrs. Denise Garcia is an 81-year-old elderly female with a history of hypertension, rheumatoid arthritis, cardiomyopathy, CHF, and thrombocytopenia, renal failure on hemodialysis for the last three months and bedridden since July. The patient underwent a hemodialysis yesterday with poorly functioning Perm-A-Cath with a blood flow about 200 to 250. The patient is not in acute distress, complains not feeling well, not able to specify the problem and not able to communicate much other than saying not feeling well. The patient is not in acute distress. PHYSICAL EXAMINATION: GENERAL: Ms. Denise Garcia is an 81-year-old elderly female, moderately built, moderately nourished, not in distress. VITAL SIGNS: As follows: Blood pressure 132/75, pulse 96, respiration 20, temperature 99.6, saturation 95%. Height 5 feet 2 inches and weight is 127 pounds. HEENT: Pupils normal and reacting to light. Conjunctivae pink. Sclerae anicteric. Legally blind. Trachea is midline. No thyroid enlargement. LUNGS: Symmetrical on both sides. Bilateral breath sounds present. Clear on auscultation. CARDIOVASCULAR: [place] at the sixth intercostal space, midclavicular line. S1 and S2 audible. No murmur and no gallop. ABDOMEN: Normal in appearance. Soft and tympanic. No guarding. No rigidity. No hepatosplenomegaly. The patient has a PEG tube in it. CENTRAL NERVOUS SYSTEMS: The patient is arousable, following simple commands. Sensory system is grossly within normal limits. Motor: Moving all extremities, but the patient is bedridden for the last three to four months since admitted in July. EXTREMITIES: No cyanosis. No clubbing. No edema. CURRENT MEDICATIONS: Include hydralazine 10 mg IV q. 6 hours p.r.n., aspirin 1000 units during dialysis and multivitamin liquid 5 mL and Epogen on hold and Zemplar on hold and Protonix 40 mg IV q. 12 hours. LABORATORY DATA: As follows as of 11/18/2016 at 14:47 predialysis, sodium 136, potassium is 5.3, and chloride 96, CO2 13, and BUN is 106, creatinine is 5.9, glucose is 152, and calcium is 10.2. ASSESSMENT AND PLAN: Mrs. Denise Garcia is an 81-year-old elderly female with hypertension, rheumatoid arthritis, cardiomyopathy, thrombocytopenia, renal failure on hemodialysis, status post plasmapheresis and status post rituximab weekly x4. 1. Renal failure, most likely end-stage renal disease. Continue hemodialysis three times a week, Thursday, , and Thursday. 2. Status post thrombocytopenia, questionable idiopathic thrombocytopenic purpura versus thrombotic thrombocytopenic purpura status post rituximab. Now platelets are under control. 3. Hyperkalemia most likely secondary to poorly functioning catheter on dialysis. Repeat BMP today and follow up with vascular surgery or IR for evaluation of the PermCath. Thank you for allowing me to participate in your the patient's care. Overall prognosis is extremely poor. Horacio Graham MD
[2016-11-19] MEDS ORDERED: Petrolatum Oint Foilpak (5 gm) TOP PRN (18:44)
--- NOTE | 2016-11-19 19:15 | CP.PCM.PN ---
Subjective - Date & Time of Evaluation Date of Evaluation: 11/19/16 Time of Evaluation: 09:20 - Subjective Subjective: clinically same Objective - Vital Signs/Intake and Output Vital Signs (last 24 hours): Temp Pulse Resp BP Pulse Ox 97.6 F 86 18 143/74 98 11/19/16 15:18 11/19/16 15:18 11/19/16 15:18 11/19/16 15:18 11/19/16 15:18 Intake and Output: 11/19/16 11/20/16 18:59 06:59 Intake Total 320 Balance 320 - Medications Medications: Current Medications Emollient Ointment (Vaseline Oint) 5 gm TOP Q4 PRN PRN Reason: Dry skin Epoetin Herve (Procrit) 10,000 unit IV TTS [facility] Last Admin: 11/18/16 10:00 Dose: Not Given Heparin Sodium (Porcine) (Heparin) 1,000 units IVP TTS JESSI Stop: 11/29/16 10:01 Last Admin: 11/18/16 16:43 Dose: 1,000 units Hydralazine HCl (Apresoline) 10 mg IVP Q6H PRN PRN Reason: HIgh BP Multivitamins/Vitamin C (Multi-Delyn Liquid) 5 ml GT 1200 JESSI Last Admin: 11/19/16 11:51 Dose: 5 ml Pantoprazole Sodium (Protonix Inj) 40 mg IVP Q12H JESSI Last Admin: 11/19/16 11:29 Dose: 40 mg Paricalcitol (Zemplar) 1 mcg IV TTS JESSI Last Admin: 11/18/16 10:00 Dose: Not Given - Labs Labs: 11/18/16 08:22 11/19/16 11:37 PT 11.7 SECONDS (9.7-12.2) 11/04/16 07:45 INR 1.0 11/04/16 07:45 APTT 37 SECONDS (21-34) H D 11/04/16 13:51 - Constitutional Appears: Well - Head Exam Head Exam: ATRAUMATIC, NORMAL INSPECTION, NORMOCEPHALIC - Eye Exam Eye Exam: EOMI, Normal appearance, PERRL Pupil Exam: NORMAL ACCOMODATION, PERRL - ENT Exam ENT Exam: Mucous Membranes Moist, Normal Exam - Neck Exam Neck Exam: Full ROM, Normal Inspection. absent: Lymphadenopathy - Respiratory Exam Respiratory Exam: Decreased Breath Sounds - Cardiovascular Exam Cardiovascular Exam: REGULAR RHYTHM, +S1, +S2 - GI/Abdominal Exam GI & Abdominal Exam: Soft, Diminished Bowel Sounds - Rectal Exam Rectal Exam: Deferred Assessment and Plan (1) Cardiac dysrhythmia Status: Acute (2) ESRD (end stage renal disease) on dialysis Status: Acute (3) Pulmonary edema Status: Acute (4) MARCO (acute kidney injury) Status: Acute (5) Acute respiratory failure requiring reintubation Status: Acute (6) Arthritis Status: Acute (7) CHF (congestive heart failure) Status: Acute (8) Dehydration Status: Acute (9) Dehydration Status: Acute (10) Diverticulosis Status: Acute (11) Elevated CEA Status: Acute (12) Hypertension Status: Acute (13) Inguinal lymphadenopathy Status: Acute (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
--- NOTE | 2016-11-20 13:46 | CP.PCM.PN ---
Subjective - Date & Time of Evaluation Date of Evaluation: 11/20/16 Time of Evaluation: 13:45 - Subjective Subjective: pt is seen and examined during hd, follow up consult is dictated #[id number] Objective - Vital Signs/Intake and Output Vital Signs (last 24 hours): Temp Pulse Resp BP Pulse Ox 99 F 98 H 16 118/79 95 11/20/16 11:37 11/20/16 11:37 11/20/16 11:37 11/20/16 13:00 11/20/16 10:05 Intake and Output: 11/20/16 11/20/16 06:59 18:59 Intake Total 420 Balance 420 - Medications Medications: Current Medications Emollient Ointment (Vaseline Oint) 5 gm TOP Q4 PRN PRN Reason: Dry skin Epoetin Herve (Procrit) 10,000 unit IV TTS JESSI Last Admin: 11/18/16 10:00 Dose: Not Given Heparin Sodium (Porcine) (Heparin) 1,000 units IVP TTS JESSI Stop: 11/29/16 10:01 Last Admin: 11/20/16 10:28 Dose: 1,000 units Hydralazine HCl (Apresoline) 10 mg IVP Q6H PRN PRN Reason: HIgh BP Multivitamins/Vitamin C (Multi-Delyn Liquid) 5 ml GT 1200 JESSI Last Admin: 11/19/16 11:51 Dose: 5 ml Pantoprazole Sodium (Protonix Inj) 40 mg IVP Q12H JESSI Last Admin: 11/20/16 09:38 Dose: 40 mg Paricalcitol (Zemplar) 1 mcg IV TTS JESSI Last Admin: 11/18/16 10:00 Dose: Not Given - Labs Labs: 11/18/16 08:22 11/20/16 13:00 PT 11.7 SECONDS (9.7-12.2) 11/04/16 07:45 INR 1.0 11/04/16 07:45 APTT 37 SECONDS (21-34) H D 11/04/16 13:51
[2016-11-20] MEDS: Multiple Vitamins Oral Solution GT SCH (15:26)
[2016-11-20 15:52] VITALS: RESP 20
--- NOTE | 2016-11-20 18:00 | CP.PCM.PN ---
Subjective - Date & Time of Evaluation Date of Evaluation: 11/20/16 Time of Evaluation: 08:40 - Subjective Subjective: clinically same Objective - Vital Signs/Intake and Output Vital Signs (last 24 hours): Temp Pulse Resp BP Pulse Ox 98.5 F 106 H 20 132/76 94 L 11/20/16 15:51 11/20/16 15:51 11/20/16 15:51 11/20/16 15:51 11/20/16 15:51 Intake and Output: 11/20/16 11/20/16 06:59 18:59 Intake Total 420 Balance 420 - Medications Medications: Current Medications Emollient Ointment (Vaseline Oint) 5 gm TOP Q4 PRN PRN Reason: Dry skin Epoetin Herve (Procrit) 10,000 unit IV TTS COUNT [facility] Last Admin: 11/18/16 10:00 Dose: Not Given Heparin Sodium (Porcine) (Heparin) 1,000 units IVP TTS COUNT [facility]CLUDES [facility] Stop: 11/29/16 10:01 Last Admin: 11/20/16 10:28 Dose: 1,000 units Hydralazine HCl (Apresoline) 10 mg IVP Q6H PRN PRN Reason: HIgh BP Multivitamins/Vitamin C (Multi-Delyn Liquid) 5 ml GT 1200 JESSI Last Admin: 11/20/16 15:26 Dose: Not Given Pantoprazole Sodium (Protonix Inj) 40 mg IVP Q12H COUNT INCLUDES THE [facility] Last Admin: 11/20/16 09:38 Dose: 40 mg Paricalcitol (Zemplar) 1 mcg IV TTS JESSI Last Admin: 11/18/16 10:00 Dose: Not Given - Labs Labs: 11/18/16 08:22 11/20/16 13:00 PT 11.7 SECONDS (9.7-12.2) 11/04/16 07:45 INR 1.0 11/04/16 07:45 APTT 37 SECONDS (21-34) H D 11/04/16 13:51 - Constitutional Appears: Well - Head Exam Head Exam: ATRAUMATIC, NORMAL INSPECTION, NORMOCEPHALIC - Eye Exam Eye Exam: EOMI, Normal appearance, PERRL Pupil Exam: NORMAL ACCOMODATION, PERRL - ENT Exam ENT Exam: Mucous Membranes Moist, Normal Exam - Neck Exam Neck Exam: Full ROM, Normal Inspection. absent: Lymphadenopathy - Respiratory Exam Respiratory Exam: Decreased Breath Sounds - Cardiovascular Exam Cardiovascular Exam: REGULAR RHYTHM, +S1, +S2 - GI/Abdominal Exam GI & Abdominal Exam: Soft, Diminished Bowel Sounds - Rectal Exam Rectal Exam: Deferred Assessment and Plan (1) Cardiac dysrhythmia Status: Acute (2) ESRD (end stage renal disease) on dialysis Status: Acute (3) Pulmonary edema Status: Acute (4) MARCO (acute kidney injury) Status: Acute (5) Acute respiratory failure requiring reintubation Status: Acute (6) Arthritis Status: Acute (7) CHF (congestive heart failure) Status: Acute (8) Dehydration Status: Acute (9) Dehydration Status: Acute (10) Diverticulosis Status: Acute (11) Elevated CEA Status: Acute (12) Hypertension Status: Acute (13) Inguinal lymphadenopathy Status: Acute (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
--- NOTE | 2016-11-20 21:26 | CARD ---
APPROVED REPORT EKG Measurement Heart [id number] P69 [id number] <Conclusion> COMPLETE HEART BLOCK Left axis deviation LBBB T wave abnormality, consider inferior ischemia Abnormal ECG
[2016-11-21 08:54] VITALS: BP 134/67; PULSE 91; TEMP 98.2; O2SAT 97
--- NOTE | 2016-11-21 09:11 | PN ---
DATE: LOCATION: [facility], bed A. SUBJECTIVE: This is an 81-year-old female post PEG insertion, seen and examined in rounds without significant clinical changes or reported active bleeding, tolerating PEG feeding well. The entire chart is reviewed, including but not limited to the most recent lab and radiology study results, current and previous medication list, current and previous medical events. Case discussed at length with the staff in the floor. As we mentioned that today's blood glucose level is still elevated to 164 and the patient recently had increased BUN and creatinine, on hemodialysis with elevated alkaline phosphatase and AST with low albumin. PHYSICAL EXAMINATION GENERAL: An 80-year-old female, appeared to be somewhat awake, alert. VITAL SIGNS: Afebrile with pulse of 96, respiratory rate 20 to 22, blood pressure of 140/82. HEENT: Showed pale dry oral mucoid membrane, nonicteric sclerae. HEART: Positive S1 and S2. LUNGS: Few scattered crepitations; decreased air entry at bases. ABDOMEN: Soft. Bowel sounds are present with mild generalized distention and slight tenderness. PEG tube is in place. No evidence of anterior abdominal wall cellulitis. EXTREMITIES: With slight lower extremity edematous changes. No clubbing or cyanosis. NEUROLOGIC: No reported new neurological deficits, sensory or motor. IMPRESSION: 1. Failure to thrive. 2. Hypoalbuminemia. 3. Malnutrition. 4. Status post percutaneous endoscopic gastrostomy insertion. 5. Known history of peptic ulcer disease. 6. Chronic renal failure, on hemodialysis. 7. Known history of cardiomyopathy with hypertension. 8. Anemia secondary to above. 9. Known history of thrombotic thrombocytopenic purpura. SUGGESTION: 1. Continue current management. 2. Adjust PT and PTT. 3. Increase rate of feeding as tolerated. Yasmine Oneill MD cc: Yasmine Oneill MD
--- NOTE | 2016-11-21 09:52 | CP.PCM.PN ---
Subjective - Date & Time of Evaluation Date of Evaluation: 11/21/16 Time of Evaluation: 09:46 - Subjective Subjective: PGY-[address] Ureña's service: Patient seen and examined at bedside. Nursing reports no acute events overnight. Pt s/p HD yesterday. Patient is responsive to deep pain stimuli. Patient is marked for discharge today. Full ROS unavailable due to patient condition. Objective - Vital Signs/Intake and Output Vital Signs (last 24 hours): Temp Pulse Resp BP Pulse Ox 98.2 F 91 H 20 134/67 97 11/21/16 07:00 11/21/16 07:00 11/21/16 07:00 11/21/16 07:00 11/21/16 07:00 Intake and Output: 11/21/16 11/21/16 06:59 18:59 Intake Total 420 Balance 420 - Medications Medications: Current Medications Emollient Ointment (Vaseline Oint) 5 gm TOP Q4 PRN PRN Reason: Dry skin Epoetin Herve (Procrit) 10,000 unit IV TTS JESSI Last Admin: 11/18/16 10:00 Dose: Not Given Heparin Sodium (Porcine) (Heparin) 1,000 units IVP TTS JESSI Stop: 11/29/16 10:01 Last Admin: 11/20/16 10:28 Dose: 1,000 units Hydralazine HCl (Apresoline) 10 mg IVP Q6H PRN PRN Reason: HIgh BP Multivitamins/Vitamin C (Multi-Delyn Liquid) 5 ml GT 1200 JESSI Last Admin: 11/20/16 15:26 Dose: Not Given Pantoprazole Sodium (Protonix Inj) 40 mg IVP Q12H JESSI Last Admin: 11/20/16 21:33 Dose: 40 mg Paricalcitol (Zemplar) 1 mcg IV TTS JESSI Last Admin: 11/18/16 10:00 Dose: Not Given - Labs Labs: 11/18/16 08:22 11/20/16 13:00 PT 11.7 SECONDS (9.7-12.2) 11/04/16 07:45 INR 1.0 11/04/16 07:45 APTT 37 SECONDS (21-34) H D 11/04/16 13:51 - Additional Findings Additional findings: - Constitutional Appears: Non-toxic, No Acute Distress, Chronically Ill - Head Exam Head Exam: NORMOCEPHALIC - Eye Exam Eye Exam: Normal appearance Pupil Exam: NORMAL ACCOMODATION - ENT Exam ENT Exam: Mucous Membranes Moist - Respiratory Exam Respiratory Exam: Clear to Ausculation Bilateral, NORMAL BREATHING PATTERN. absent: Rhonchi, Wheezes - Cardiovascular Exam Cardiovascular Exam: REGULAR RHYTHM, +S1, +S2. absent: Gallop, Rubs - GI/Abdominal Exam GI & Abdominal Exam: Soft, Normal Bowel Sounds. absent: Tenderness, Hyperactive Bowel Sounds - PEG tube functioning without difficult; no erythema around site; no residual noted - Neurological Exam Neurological Exam: Alert, Awake. absent: Oriented x3 - Psychiatric Exam Psychiatric exam: Normal Mood - Skin Skin Exam: Intact, Dry Assessment and Plan - Assessment and Plan (Free Text) Plan: Malnutrition PEG tube in place Dr. Goode, GI internal consultant - increase rate of feeding as tolerated Dietary: recommending 40ml/hr of Nepro ESRD (end stage renal disease) on dialysis; chronic with non functional permacath -patient new permacath placed 11/14 -c/w epoitin for anemia 2/2 to CKD; stable and chronic -Continue epogen -continue IV iron -Nephrocaps 1 tab daily -Zemplar 1mcg TTS with dialysis -Transportation arranged as per case management Cardiomyopathy with low EF Cardiology consult, Dr. Salmon, f/u recs which state: Medical management due to poor general condition. Due to dementia not a candidate for cath or AICD/ LifeVest Start Lisinopril, Baby ASA per Dr. Salmon - No BB/aldactone due to SSS Sick sinus syndrome Rate 46 bpm at bedside (11/18) several episodes of tachy/hansa over course EKG (11/18/16): Lt axis deviation, consistent with previous LBBB, No acute ST-T wave changes - prior ekgs showing heart block, LBBB INESSA: negative x 1 - due to pt dementia ROS unavailable Resolved, stable for past 24hours (11/19) No Beta urban at discharge per Dr. Samlon Hyperkalemia; resolved -will continue to monitor TTP (thrombotic thrombocytopenic purpura); resolved resolved Vaginal Bleed; resolved 10/29: Endometrial us shows thick endometrium 10/28: ObGyn Consult on 10/27 2/2 vaginal bleeding, f/u recs - Please f/u transvaginal/pelvic ultrasound for evaluation of endometrial stripe, and re- consult. * Medication review noted for patient having received a bolus of heparin. - in the post menopausal state, it is not uncommon for a woman to experience post menopausal (vaginal) bleeding with the administration of heparin. Disposition: Pt for discharge today. [employer] set up for discharge and transportation to dialysis per case mgmt. Daniel Contreras PGY-[address] Ureña. All orders entered on behalf of Dr. Ureña
[2016-11-21] MEDS: Multiple Vitamins Oral Solution GT SCH (11:40)
--- NOTE | 2016-11-21 15:49 | PN ---
LOCATION: [facility], bed A. SUBJECTIVE: This is an 80-year-old female, seen and examined in rounds,post dialysis without significant clinical changes, tolerating PEG feeding well. The entire chart is reviewed, including but not limited to the most recent lab and radiology study results, current and previous medication list, current and previous medical events. Case discussed at length with the staff as well as has consult on the floor. Today's blood glucose level is 158 and the patient is still have elevated BUN and creatinine, but normal hemoglobin and hematocrit. PHYSICAL EXAMINATION: GENERAL: An 80-year-old female. VITAL SIGNS: Afebrile with pulse of 94, respiratory rate 20 to 22, blood pressure of 130/64. HEENT: Showed pale dry oral mucoid membrane, nonicteric sclerae. LUNGS: Few scattered crepitations; decreased air entry at bases. HEART: Positive S1 and S2 with increased rate. ABDOMEN: Positive for bowel sounds. PEG tube is in place. No residual, no bleeding and no reported resistance. EXTREMITIES: Lower extremity with edematous changes. No clubbing or cyanosis. NEUROLOGIC: No new reported focal, neurological deficits, sensory or motor. IMPRESSION: 1. Malnutrition. 2. Hypoalbuminemia. 3. Failure to thrive. 4. Status post percutaneous endoscopic gastrostomy insertion. 5. Known history of end-stage renal disease, on hemodialysis. 6. Known history of hypertension with cardiomyopathy. 7. Anemia secondary to above. 8. Known history of thrombotic thrombocytopenic purpura. SUGGESTION: 1. Continue current management. 2. Repeat stool for occult blood. 3. Increase the rate of feeding as tolerated. Yasmine Oneill MD
--- NOTE | 2016-11-21 17:55 | PCM.HF ---
Heart Failure Core Measure - Heart Failure Ejection Fraction: Less Than 40 % WILFRIDO Inhibitor Prescribed: Yes Beta-Arben Prescribed: None Contraindication/Reason for not providing: Sick Sinus Syndrome Aldosterone Antagonist Prescribed: No Contraindication/Reason for not providing: Sick sinus syndrome Implantable Cardioverter Defibrillator Therapy: No Contraindication/Reason for not providing: Dementia/Pt status not amenable per cardio - Follow up Will be discharged to: Home Follow Up Date (must be within 7 days from discharge): 11/28/16 Follow Up Time: 09:00
--- NOTE | 2016-11-24 16:06 | CON ---
RENAL CONSULTATION DATE OF CONSULT: 11/20/2016 LOCATION: The patient is located in room 661, bed 8. REQUESTED BY: Kavon Ureña MD REASON FOR FOLLOWUP: End-stage renal disease and for continuation of hemodialysis. HISTORY OF PRESENT ILLNESS: Ms. Hough is an 81-year-old elderly female with a history of hypertension, rheumatoid arthritis, cardiomyopathy, CHF, anemia, thrombocytopenia and renal failure on hemodialysis three times a week, Thursday, and Thursday. The patient was seen and examined during dialysis, not in acute distress. The patient has a poorly functioning PermCath, status post tPA instillation, and again now blood flow is 300 mL per minute, is about 1.8 L. PHYSICAL EXAMINATION: VITAL SIGNS: Blood pressure 118/79, pulse 98, respirations 16, temperature 99, saturation 98%. GENERAL: Ms. Hough is an 81-year-old elderly female, moderately built, moderately nourished, not in distress. HEENT: Pupils are normal, reactive to light and accommodation. conjunctivae pink. Sclerae anicteric. Legally blind. No thyroid enlargement. Trachea is midline. LUNGS: Symmetric on both sides. Bilateral breath sounds present. Clear on auscultation. CARDIOVASCULAR SYSTEM: [place] at the fifth intercostal space, midclavicular line. S1 and S2 audible. No murmur, no gallop. ABDOMEN: Normal in appearance. Soft, tympanic. No guarding. No rigidity. No hepatosplenomegaly. CENTRAL NERVOUS SYSTEM: The patient is alert, awake and following simple commands. EXTREMITIES: No cyanosis, no clubbing, no edema. CURRENT MEDICATIONS: Include as follows; hydralazine 10 mg IV q. 6 hours p.r.n., heparin 1000 units during dialysis, multivitamin liquid 5 mL every day, Epogen on hold, Zemplar on hold, and Protonix 40 mg IV q. 12 hours. LABORATORY DATA: As of 11/19/2016, sodium 137, potassium 5.2, chloride 98, CO2 of 29, BUN 63, creatinine 3.7, glucose 143, calcium 9.1. ASSESSMENT AND PLAN: In summary, Ms. Hough is an 81-year-old elderly female with hypertension, rheumatoid arthritis, congestive heart failure, anemia, thrombocytopenia, and end-stage renal disease on hemodialysis. 1. End-stage renal disease, most likely secondary to , cannot rule out acute tubular necrosis. The patient is on dialysis dependent for the last four months. Now continue hemodialysis three times a week, Thursday, and Thursday. 2. Hypertension. Blood pressure is stable. 3. Anemia. Hemoglobin and hematocrit is stable. Epogen is on hold due to hemoglobin more than 11.5. Repeat CBC, BMP and titrate Epogen as needed. Stable from the renal standpoint. Seen in dialysis. Thank you for allowing me to participate in your patient's care. Horacio Graham MD
== END 2016-11-21 14:27 | disposition home health service (06) | DRG 561 ==
LOC: C.ER 23:49 → C.9E 08-16 03:21 → C.9I 08-16 04:48 → C.6T 08-18 21:08 → C.9I 08-20 12:48 → C.3T 08-27 01:41 → C.5T 08-29 01:24 → C.9I 09-11 15:30 → C.6T 09-27 06:33 → C.3T 09-30 20:10 → C.6T 11-11 19:13
PROVIDERS: ADMIT Internal Medicine Nephrology; ATTEND Internal Medicine Nephrology
PROC: 5A1D70Z Performance of Urinary Filtration, Intermittent, Less than 6 Hours Per Day (ICD-10-PCS; 2016-08-16)
PROC: 6A551Z3 Pheresis of Plasma, Multiple (ICD-10-PCS; principal; 2016-08-20)
PROC: 30233K1 Transfusion of Nonautologous Frozen Plasma into Peripheral Vein, Percutaneous Approach (ICD-10-PCS; 2016-09-09)
PROC: 5A1955Z Respiratory Ventilation, Greater than 96 Consecutive Hours (ICD-10-PCS; 2016-09-11)
PROC: 0BH17EZ Insertion of Endotracheal Airway into Trachea, Via Natural or Artificial Opening (ICD-10-PCS; 2016-09-11)
PROC: 5A09357 Assistance with Respiratory Ventilation, Less than 24 Consecutive Hours, Continuous Positive Airway Pressure (ICD-10-PCS; 2016-09-11)
PROC: 3E0G76Z Introduction of Nutritional Substance into Upper GI, Via Natural or Artificial Opening (ICD-10-PCS; 2016-09-13)
PROC: 3E03305 Introduction of Other Antineoplastic into Peripheral Vein, Percutaneous Approach (ICD-10-PCS; 2016-09-22)
PROC: 05HC33Z Insertion of Infusion Device into Left Basilic Vein, Percutaneous Approach (ICD-10-PCS; 2016-10-06)
PROC: B54NZZA Ultrasonography of Left Upper Extremity Veins, Guidance (ICD-10-PCS; 2016-10-06)
PROC: 02HV33Z Insertion of Infusion Device into Superior Vena Cava, Percutaneous Approach (ICD-10-PCS; 2016-10-15)
PROC: B518ZZA Fluoroscopy of Superior Vena Cava, Guidance (ICD-10-PCS; 2016-10-15)
PROC: 0DH68UZ Insertion of Feeding Device into Stomach, Via Natural or Artificial Opening Endoscopic (ICD-10-PCS; 2016-11-03)
PROC: 02PYX3Z Removal of Infusion Device from Great Vessel, External Approach (ICD-10-PCS; 2016-11-07)
PROC: 02HV33Z Insertion of Infusion Device into Superior Vena Cava, Percutaneous Approach (ICD-10-PCS; 2016-11-07)
PROC: B518ZZA Fluoroscopy of Superior Vena Cava, Guidance (ICD-10-PCS; 2016-11-07)
PROC: 05PYX3Z Removal of Infusion Device from Upper Vein, External Approach (ICD-10-PCS; 2016-11-12)
PROC: 05H633Z Insertion of Infusion Device into Left Subclavian Vein, Percutaneous Approach (ICD-10-PCS; 2016-11-12)
PROC: 0JH63XZ Insertion of Tunneled Vascular Access Device into Chest Subcutaneous Tissue and Fascia, Percutaneous Approach (ICD-10-PCS; 2016-11-12)
PROC: B5081ZZ Plain Radiography of Superior Vena Cava using Low Osmolar Contrast (ICD-10-PCS; 2016-11-12)
PROC: 05PYX3Z Removal of Infusion Device from Upper Vein, External Approach (ICD-10-PCS; 2016-11-19)
PROC: 05H633Z Insertion of Infusion Device into Left Subclavian Vein, Percutaneous Approach (ICD-10-PCS; 2016-11-19)
DX: M31.1 Thrombotic microangiopathy (principal); I50.22 Chronic systolic (congestive) heart failure; J96.01 Acute respiratory failure with hypoxia; J90 Pleural effusion, not elsewhere classified; G93.41 Metabolic encephalopathy; I13.2 Hypertensive heart and chronic kidney disease with heart failure and with stage 5 chronic kidney disease, or end stage renal disease; Z95.811 Presence of heart assist device; L89.152 Pressure ulcer of sacral region, stage 2; E46 Unspecified protein-calorie malnutrition; D69.3 Immune thrombocytopenic purpura; N18.6 End stage renal disease; I42.0 Dilated cardiomyopathy; M34.9 Systemic sclerosis, unspecified; E11.22 Type 2 diabetes mellitus with diabetic chronic kidney disease; E86.0 Dehydration; J44.9 Chronic obstructive pulmonary disease, unspecified; T82.49XA Other complication of vascular dialysis catheter, initial encounter; J98.11 Atelectasis; F03.90 Unspecified dementia, unspecified severity, without behavioral disturbance, psychotic disturbance, mood disturbance, and anxiety; I35.1 Nonrheumatic aortic (valve) insufficiency; A04.72 Enterocolitis due to Clostridium difficile, not specified as recurrent; E87.5 Hyperkalemia; E87.6 Hypokalemia; E11.65 Type 2 diabetes mellitus with hyperglycemia; I44.4 Left anterior fascicular block; I48.91 Unspecified atrial fibrillation; R62.7 Adult failure to thrive; F05 Delirium due to known physiological condition; R47.01 Aphasia; R13.10 Dysphagia, unspecified; M17.0 Bilateral primary osteoarthritis of knee; H40.9 Unspecified glaucoma; H54.7 Unspecified visual loss; K27.9 Peptic ulcer, site unspecified, unspecified as acute or chronic, without hemorrhage or perforation; M06.9 Rheumatoid arthritis, unspecified; K21.0 Gastro-esophageal reflux disease with esophagitis; D63.1 Anemia in chronic kidney disease; R97.0 Elevated carcinoembryonic antigen [CEA]; I25.5 Ischemic cardiomyopathy; R59.0 Localized enlarged lymph nodes; K57.90 Diverticulosis of intestine, part unspecified, without perforation or abscess without bleeding; I44.7 Left bundle-branch block, unspecified; E77.8 Other disorders of glycoprotein metabolism; H54.8 Legal blindness, as defined in USA; Z86.19 Personal history of other infectious and parasitic diseases; Z74.01 Bed confinement status; Z99.2 Dependence on renal dialysis; Z79.84 Long term (current) use of oral hypoglycemic drugs; Z78.0 Asymptomatic menopausal state